=== PATIENT | female | born 1950 | race Two or more races ===

== ENCOUNTER 2016-04-20 18:47 | Observation (INO) | payer MEDICAID ==
[2016-04-20] MEDS ORDERED: ASPIRIN 81 MG TABLET, CHEWABLE PO ONE (18:48)
--- NOTE | 2016-04-20 18:51 | ER Document Report ---
ED Medical Screen (RME) - General Stated Complaint: CHEST PAIN Time seen by provider: 18:48 Mode of Arrival: Wheelchair Information source: Patient Notes: 65-year-old female oxygen dependent patient c/o of left-sided chest pain with left arm numbness today. She is in mild respiratory distress with tachypneic and a pulse ox of 88-92% because she Left her oxygen in the car. I have greeted and performed a rapid initial assessment of this patient. A comprehensive ED assessment, evaluation of the patient, analysis of test results , and completion of the medical decision making process will be conducted by additional ED providers. TRAVEL OUTSIDE OF THE [place] IN LAST 30 DAYS: No - Related Data Allergies/Adverse Reactions: codeine [Codeine] Allergy (Unknown, Verified 02/10/16 13:17) Past Medical History - Social History Family history: CAD, Hyperlipidemia, Hypertension, Malignancy - Past Medical History Cardiac Medical History: Reports: Hx Coronary Artery Disease, Hx Hypercholesterolemia, Hx Hypertension, Hx Peripheral Vascular Disease Denies: Hx Heart Murmur Pulmonary Medical History: Reports: Hx Asthma, Hx Bronchitis, Hx COPD, Hx Respiratory Failure, Hx Sleep Apnea Denies: Hx Tuberculosis Neurological Medical History: Reports: Hx Migraine. Denies: Hx Seizures Endocrine Medical History: Reports: Hx Diabetes Mellitus Type 1, Hx Diabetes Mellitus Type 2 Renal/ Medical History: Reports: Hx Ovarian Cysts Malignancy Medical History: GI Medical History: Reports: Hx Gastritis, Hx Ulcer Musculoskeltal Medical History: Reports Hx Arthritis, Reports Hx Fibromyalgia, Reports Hx Musculoskeletal Deformity, Reports Hx Musculoskeletal Trauma Psychiatric Medical History: Reports: Hx Anxiety, Hx Depression Denies: Hx Attention Deficit Hyperactivity Disorder Traumatic Medical History: Reports: Hx Fractures - pinkie finger Infectious Medical History: Reports: Hx C-Diff, Hx MRSA Past Surgical History: Reports: Hx Appendectomy, Hx Cardiac Catheterization, Hx Cholecystectomy, Hx Coronary Stent, Hx Hysterectomy, Hx Orthopedic Surgery - right shoulder, Hx Tubal Ligation, Hx Vascular Surgery - Immunizations Immunizations up to date: Yes Hx Diphtheria, Pertussis, Tetanus Vaccination: Yes
[2016-04-20] MEDS ORDERED: ALBUTEROL SULFATE 0.083% NEB 2.5 MG/3 ML AMPUL NEB ONE (19:01)
[2016-04-20] MEDS ORDERED: MORPHINE SULFATE 10 MG/ML INJ IV ONE ×2 (19:01→20:41)
--- NOTE | 2016-04-20 19:02 | ER Document Report ---
ED Cardiac - General Chief Complaint: Breathing Difficulty Stated Complaint: CHEST PAIN Time seen by provider: 19:02 Mode of Arrival: Wheelchair Information source: Patient TRAVEL OUTSIDE OF THE [place] IN LAST 30 DAYS: No - HPI Patient complains to provider of: Chest pain, Shortness of breath Was the onset of pain: Gradual Is the pain a: New problem Chest pain location: Substernal Quality of pain: Heaviness Chest pain radiation location: Left arm Severity now: Moderate Severity at worst: Moderate Pain level currently: 3 Chest pain precipitating factors: At Rest Cardiac risk factors: Diabetes, Hypertension, Dyslipidemia Positive cardiac history: Yes Associated symptoms: Shortness of breath Exacerbated by: Denies Relieved by: Nothing Similar symptoms previously: Yes Recently seen / treated by doctor: Yes Notes: Patient is a 65-year-old female who presents to the emergency room complaining of chest pain with shortness of breath this started yesterday evening but worsened throughout the day today, she reports it as a heaviness over the midsternum with a tingling sensation down the left arm, she reports a nonproductive cough, wheezing, denies a fever, no recent travel - Related Data Allergies/Adverse Reactions: codeine [Codeine] Allergy (Unknown, Verified 02/10/16 13:17) Past Medical History - General Information source: Patient - Social History Smoking Status: Former Smoker Family History: Hypertension, Other - Alzheimer's, renal failure Patient has suicidal ideation: No Patient has homicidal ideation: No - Past Medical History Cardiac Medical History: Reports: Hx Coronary Artery Disease, Hx Hypercholesterolemia, Hx Hypertension, Hx Peripheral Vascular Disease Denies: Hx Heart Murmur Pulmonary Medical History: Reports: Hx Asthma, Hx Bronchitis, Hx COPD, Hx Respiratory Failure, Hx Sleep Apnea Denies: Hx Tuberculosis Neurological Medical History: Reports: Hx Migraine. Denies: Hx Seizures Endocrine Medical History: Reports: Hx Diabetes Mellitus Type 1, Hx Diabetes Mellitus Type 2 Renal/ Medical History: Reports: Hx Ovarian Cysts Malignancy Medical History: GI Medical History: Reports: Hx Gastritis, Hx Ulcer Musculoskeltal Medical History: Reports Hx Arthritis, Reports Hx Fibromyalgia, Reports Hx Musculoskeletal Deformity, Reports Hx Musculoskeletal Trauma Psychiatric Medical History: Reports: Hx Anxiety, Hx Depression Denies: Hx Attention Deficit Hyperactivity Disorder Traumatic Medical History: Reports: Hx Fractures - pinkie finger Infectious Medical History: Reports: Hx C-Diff, Hx MRSA Past Surgical History: Reports: Hx Appendectomy, Hx Cardiac Catheterization, Hx Cholecystectomy, Hx Coronary Stent, Hx Hysterectomy, Hx Orthopedic Surgery - right shoulder, Hx Tubal Ligation, Hx Vascular Surgery - Immunizations Immunizations up to date: Yes Hx Diphtheria, Pertussis, Tetanus Vaccination: Yes Hx Pneumococcal Vaccination: 02/17/10 Review of Systems - Review of Systems Constitutional: No symptoms reported EENT: No symptoms reported Cardiovascular: See HPI Respiratory: See HPI Gastrointestinal: No symptoms reported Genitourinary: No symptoms reported Female Genitourinary: No symptoms reported Musculoskeletal: No symptoms reported Skin: No symptoms reported Hematologic/Lymphatic: No symptoms reported Neurological/Psychological: No symptoms reported -: Yes All other systems reviewed and negative Physical Exam - Vital signs Vitals: Pulse Ox 94 04/20/16 19:00 Interpretation: Normal - General General appearance: Appears well, Alert - HEENT Head: Normocephalic, Atraumatic Eyes: Normal Pupils: PERRL - Respiratory Respiratory status: No respiratory distress Chest status: Nontender Breath sounds: Wheezing Chest palpation: Normal - Cardiovascular Rhythm: Regular Heart sounds: Normal auscultation Murmur: No - Abdominal Inspection: Obese Distension: No distension Bowel sounds: Normal Tenderness: Nontender Organomegaly: No organomegaly - Back Back: Normal, Nontender - Extremities General upper extremity: Normal inspection, Nontender, Normal color, Normal ROM , Normal temperature General lower extremity: Normal inspection, Nontender, Normal color, Normal ROM , Normal temperature, Normal weight bearing. No: George's sign - Neurological Neuro grossly intact: Yes Cognition: Normal Orientation: AAOx4 Mark Coma Scale Eye Opening: Spontaneous Webb Coma Scale Verbal: Oriented Mark Coma Scale Motor: Obeys Commands Mark Coma Scale Total: 15 Speech: Normal Motor strength normal: LUE, RUE, LLE, RLE Sensory: Normal - Psychological Associated symptoms: Normal affect, Normal mood - Skin Skin Temperature: Warm Skin Moisture: Dry Skin Color: Normal Course - Re-evaluation Re-evalutation: 04/20/16 21:[address] Jackson who agrees to admit as observation for further evaluation and treatment - Vital Signs Vital signs: Temp Pulse Resp BP Pulse Ox 98.7 F 80 21 H 106/68 95 04/21/16 00:00 04/21/16 02:00 04/21/16 00:00 04/21/16 00:00 04/21/16 00:00 - Laboratory Result Diagrams: 04/20/16 19:10 04/20/16 19:10 Laboratory results interpreted by me: 04/20/16 04/20/16 04/20/16 19:10 19:10 21:00 Hgb 11.7 L RDW 15.0 H VBG pCO2 73.6 H* VBG HCO3 37.7 H Chloride 93 L Carbon Dioxide 33 H Glucose 191 H - Diagnostic Test Radiology reviewed: Image reviewed, Reports reviewed - EKG Interpretation by Me EKG shows normal: Sinus rhythm Rate: Normal [place]/QRS: RBBB When compared to previous EKG there are: No significant change - Transfer of Care Care transferred to following provider: Dr Jackson Discharge - Discharge Clinical Impression: Chest pain Qualifiers: Chest pain type: other chest pain Qualified Code(s): R07.89 - Other chest pain Condition: Stable Disposition: ADMITTED OBSERVATION Admitting Provider: Renetta Unit Admitted: Telemetry
[2016-04-20 19:24] LABS: ABSOLUTE EOSINOPHILS # (AUTO) 0.1 10^3/uL (0.0-0.6); ABSOLUTE LYMPHOCYTES (AUTO) 1.3 10^3/uL (0.5-4.7); ABSOLUTE MONOCYTES (AUTO) 0.5 10^3/uL (0.1-1.4); ABSOLUTE NEUT (AUTO) 4.2 10^3/uL (1.7-8.2); BASOPHILS % (AUTO) 0.3 % (0-2); EOSINOPHILS % (AUTO) 2.4 % (0-6); HEMOGLOBIN 11.7 g/dL (12.0-15.5); HGB HCT DIFFERENCE -0.9; LYMPHOCYTES % (AUTO) 21.2 % (13-45); MEAN CORPUSCULAR HEMOGLOBIN 29.9 pg (27.0-33.4); MEAN CORPUSCULAR HGB CONC 32.4 g/dL (32.0-36.0); MEAN CORPUSCULAR VOLUME 92 fl (80-97); MONOCYTES % (AUTO) 7.9 % (3-13); RED BLOOD COUNT 3.91 10^6/uL (3.72-5.28); SEGMENTED NEUTROPHILS % (AUTO) 68.2 % (42-78); WHITE BLOOD COUNT 6.2 10^3/uL (4.0-10.5)
[2016-04-20 19:37] LABS: ALANINE AMINOTRANSFERASE 25 U/L (9-52); ALBUMIN 4.1 g/dL (3.5-5.0); ALKALINE PHOSPHATASE 101 U/L (38-126); ANION GAP 13 (5-19); ASPARTATE AMINO TRANSFERASE 18 U/L (14-36); BILIRUBIN,TOTAL 0.5 mg/dL (0.2-1.3); BLOOD UREA NITROGEN 19 mg/dL (7-20); CALCIUM 9.3 mg/dL (8.4-10.2); CARBON DIOXIDE 33 mmol/L (22-30); CHLORIDE 93 mmol/L (98-107); CREATINE KINASE 61 U/L (30-135); CREATININE RESULT 0.82 mg/dL (0.52-1.25); GLUCOSE 191 mg/dL (75-110); POTASSIUM 4.5 mmol/L (3.6-5.0); TOTAL PROTEIN 7.4 g/dL (6.3-8.2)
--- NOTE | 2016-04-20 19:49 | EKG REPORT ---
SEVERITY:- ABNORMAL ECG - SINUS RHYTHM PROBABLE LEFT ATRIAL ABNORMALITY LEFT BUNDLE BRANCH BLOCK : Confirmed by: Kg Small MD 20-Apr-2016 19:49:00
[2016-04-20 19:53] LABS: TROPONIN I < 0.012 ng/mL
[2016-04-20 21:10] LABS: VENOUS BLOOD BASE EXCESS 9.4 mmol/L; VENOUS BLOOD HCO3 37.7 mmol/L (20-32); VENOUS BLOOD PH 7.33 (7.30-7.42)
[2016-04-20 21:23] LABS: VENOUS BLOOD PCO2 73.6 mmHg (35-63)
[2016-04-21 01:26] LABS: CREATINE KINASE MB 1.11 ng/mL (<4.55)
[2016-04-21 01:33] LABS: TROPONIN I < 0.012 ng/mL
[2016-04-21 08:12] LABS: CREATINE KINASE MB 0.92 ng/mL (<4.55)
[2016-04-21 08:13] LABS: TROPONIN I < 0.012 ng/mL
[2016-04-21] MEDS: TRAMADOL HCL 50 MG TABLET PO PRN ×2 (09:29→22:10)
[2016-04-21] MEDS ORDERED: INSULIN LISPRO 100 UNIT/ML 3 ML VIAL SUBCUT PRN (12:05)
[2016-04-21] MEDS ORDERED: DEXTROSE 40% GEL 15 GM TUBE X 2 PO PRN (12:05)
[2016-04-21] MEDS ORDERED: DEXTROSE 40% GEL 15 GM TUBE PO PRN (12:05)
[2016-04-21] MEDS ORDERED: GLUCAGON,HUMAN RECOMB 1 MG INJ IM PRN (12:05)
[2016-04-21] MEDS ORDERED: DEXTROSE 50%-WATER SYRINGE 25 GM/50 ML DOSE IV PRN (12:05)
[2016-04-21] MEDS ORDERED: DEXTROSE 50%-WATER SYRINGE 12.5 GM/25 ML DOSE IV PRN (12:05)
[2016-04-21] MEDS ORDERED: REGADENOSON INJ 0.4 MG/5 ML DISP.SYRIN IV ONE (14:19)
[2016-04-21 14:28] LABS: CREATINE KINASE MB 0.98 ng/mL (<4.55)
[2016-04-21 14:30] LABS: TROPONIN I < 0.012 ng/mL
[2016-04-21] MEDS ORDERED: TRAMADOL HCL 50 MG TABLET PO PRN (14:40)
--- NOTE | 2016-04-21 15:21 | PDOC H&P ---
History of Present Illness Admission Date/PCP: 04/21/16 00:32 TANISHA POLLARD MD History of Present Illness: TORREY MARKS is a 65 year old female, she has a history of coronary artery disease, status post insertion of coronary stent, history of peripheral vascular disease, she came to the emergency room because of chest pain, the chest pain is not typical chest pain ,the chest pain is reproducible on palpation of the chest. Wall. The chest pain does not radiate to the neck on the left upper extremities. Past Medical History Cardiac Medical History: Reports: Coronary Artery Disease, Hyperlipidema, Hypertension, Peripheral Vascular Disease Pulmonary Medical History: Reports: Asthma, Bronchitis, Chronic Obstructive Pulmonary Disease (COPD), Respiratory Failure, Sleep Apnea Neurological Medical History: Reports: Migraine Endocrine Medical History: Reports: Diabetes Mellitus Type 2 Renal/ Medical History: Malignancy Medical History: GI Medical History: Musculoskeltal Medical History: Reports: Arthritis, Fibromyalgia Psychiatric Medical History: Reports: Depression Denies: Attention Deficit Hyperactivity Disorder Infectious Medical History: Reports: Clostridium Difficile, Methicillin- Resistant Staph Aureus Past Surgical History Past Surgical History: Reports: Amputation, Appendectomy, Cardiac Catheterization, Cholecystectomy, Coronary Stent, Hysterectomy, Orthopedic Surgery - right shoulder, Tubal Ligation, Vascular Surgery Social History Smoking Status: Former Smoker Frequency of Alcohol Use: None Hx Recreational Drug Use: No Drugs: None Hx Prescription Drug Abuse: No Family History Family History: Hypertension, Other - Alzheimer's, renal failure Parental Family History Reviewed: Yes Children Family History Reviewed: Yes Sibling(s) Family History Reviewed.: Yes Medication/Allergy Home Medications: Aspirin [Aspirin 81 mg Chewable Tablet] 81 mg PO DAILY 04/21/16 Atorvastatin Calcium 40 mg PO QHS 04/21/16 Clopidogrel Bisulfate [Clopidogrel] 75 mg PO DAILY 04/21/16 Duloxetine HCl 60 mg PO DAILY 04/21/16 Insulin Detemir [Levemir Insulin 300 Units/3 ml Insuln.pen] 15 unit SUBCUT QAM 04/21/16 Magnesium Oxide [Magnesium] 400 mg PO DAILY 04/21/16 Melatonin/Pyridoxine [Melatonin 3 Mg Tablet] 2 each PO HSP PRN 04/21/16 Metformin HCl [Metformin HCl ER] 500 mg PO WSUPPER 04/21/16 Metoprolol Tartrate [Lopressor 25 mg Tablet] 25 mg PO Q12 04/21/16 Omeprazole 40 mg PO QAM 04/21/16 Pramipexole Di-HCl [Pramipexole Dihydrochloride] 0.125 mg PO TID 04/21/16 Sacubitril/Valsartan [Entresto 24 mg-26 mg Tablet] 1 each PO BID 04/21/16 Spironolactone 25 mg PO DAILY 04/21/16 Allergies/Adverse Reactions: codeine [Codeine] Allergy (Unknown, Verified 02/10/16 13:17) Review of Systems Constitutional: ABSENT: chills, fever(s), headache(s), weight gain, weight loss Eyes: ABSENT: visual disturbances Ears: ABSENT: hearing changes Cardiovascular: PRESENT: chest pain Respiratory: ABSENT: cough, hemoptysis Gastrointestinal: PRESENT: diarrhea Genitourinary: ABSENT: dysuria, hematuria Musculoskeletal: ABSENT: joint swelling Integumentary: ABSENT: rash, wounds Neurological: ABSENT: abnormal gait, abnormal speech, confusion, dizziness, focal weakness, syncope Psychiatric: ABSENT: anxiety, depression, homidical ideation, suicidal ideation Endocrine: ABSENT: cold intolerance, heat intolerance, menstrual abnormalities, polydipsia, polyuria Hematologic/Lymphatic: ABSENT: easy bleeding, easy bruising, lymphadenopathy Physical Exam Vital Signs: Temp Pulse Resp BP Pulse Ox 98.9 F 96 16 114/57 L 94 04/21/16 11:07 04/21/16 14:00 04/21/16 11:07 04/21/16 11:07 04/21/16 11:07 Intake & Output 04/20/16 04/21/16 04/22/16 06:59 06:59 06:59 Intake Total 600 750 Balance 600 750 Weight 114.8 kg General appearance: PRESENT: no acute distress, well-developed, well-nourished Head exam: PRESENT: atraumatic, normocephalic Eye exam: PRESENT: conjunctiva pink, EOMI, PERRLA Ear exam: PRESENT: normal external ear exam Mouth exam: PRESENT: moist, tongue midline Neck exam: PRESENT: full ROM Respiratory exam: PRESENT: chest wall tenderness, clear to auscultation rolf Cardiovascular exam: PRESENT: RRR, +S1, +S2 Pulses: PRESENT: normal dorsalis pedis pul, +2 pedal pulses bilateral Vascular exam: PRESENT: normal capillary refill GI/Abdominal exam: PRESENT: normal bowel sounds, soft Rectal exam: PRESENT: deferred Neurological exam: PRESENT: alert, awake, oriented to person, oriented to place , oriented to time, oriented to situation, CN II-XII grossly intact Psychiatric exam: PRESENT: appropriate affect, normal mood Skin exam: PRESENT: dry, intact, warm Results Laboratory Results: 04/21/16 04/21/16 04/21/16 00:46 00:46 07:07 Creatine Kinase 58 48 CK-MB (CK-2) 1.11 Troponin I < 0.012 04/21/16 04/21/16 04/21/16 07:07 13:07 13:07 Creatine Kinase 52 CK-MB (CK-2) 0.92 0.98 Troponin I < 0.012 < 0.012 Impressions: Chest X-Ray 04/20/16 18:48 IMPRESSION: NO ACUTE RADIOGRAPHIC FINDING IN THE CHEST. Assessment & Plan - Diagnosis (1) Chest pain Qualifiers: Chest pain type: unspecified Qualified Code(s): R07.9 - Chest pain, unspecified Is this a current diagnosis for this admission?: Yes (2) Chronic obstructive asthma (with obstructive pulmonary disease) Is this a current diagnosis for this admission?: Yes (3) Coronary artery disease Qualifiers: Coronary Disease-Associated Artery/Lesion type: [place] artery [place] vs. transplanted heart: [place] heart Associated angina: without angina Qualified Code(s): I25.10 - Atherosclerotic heart disease of [place] coronary artery without angina pectoris (4) COPD (chronic obstructive pulmonary disease) Qualifiers: COPD type: COPD with acute exacerbation Qualified Code(s): J44.1 - Chronic obstructive pulmonary disease with (acute) exacerbation Is this a current diagnosis for this admission?: Yes (5) Chest wall pain Is this a current diagnosis for this admission?: Yes (6) Chronic respiratory failure Qualifiers: Respiratory failure complication: unspecified whether with hypoxia or hypercapnia Qualified Code(s): J96.10 - Chronic respiratory failure, unspecified whether with hypoxia or hypercapnia (7) Coronary artery disease Qualifiers: Coronary Disease-Associated Artery/Lesion type: [place] artery [place] vs. transplanted heart: [place] heart Associated angina: without angina Qualified Code(s): I25.10 - Atherosclerotic heart disease of [place] coronary artery without angina pectoris Is this a current diagnosis for this admission?: Yes
[2016-04-21] MEDS: ONDANSETRON HCL INJ/PF 4 MG/2 ML SDV IV PRN ×2 (16:28→22:10)
[2016-04-21] MEDS ORDERED: PYRIDOXINE PO PRN (18:26)
[2016-04-21] MEDS ORDERED: MELATONIN PO PRN (18:26)
[2016-04-21] MEDS: METOPROLOL TARTRATE 25 MG TABLET PO SCH (22:10)
[2016-04-21] MEDS ORDERED: INSULIN DETEMIR 100 UNIT/ML 3 ML PEN SUBCUT ONE (22:10)
[2016-04-21] MEDS: INSULIN DETEMIR 100 UNIT/ML 3 ML PEN SUBCUT SCH (22:11)
[2016-04-21] MEDS: SIMETHICONE 80 MG TAB.CHEW PO SCH (22:12)
[2016-04-22] MEDS: ONDANSETRON HCL INJ/PF 4 MG/2 ML SDV IV PRN ×4 (03:23→19:39)
[2016-04-22] MEDS: TRAMADOL HCL 50 MG TABLET PO PRN ×4 (04:16→22:06)
[2016-04-22] MEDS: DULOXETINE HCL 30 MG CAPSULE.DR PO SCH (09:24)
[2016-04-22] MEDS: METFORMIN HCL 500 MG TABLET PO SCH (09:25)
[2016-04-22] MEDS: CLOPIDOGREL BISULFATE 75 MG TABLET PO SCH (09:25)
[2016-04-22] MEDS: MAGNESIUM OXIDE 400 MG TABLET PO SCH (09:25)
[2016-04-22] MEDS: LANSOPRAZOLE 30 MG TAB.RAP.DR PO SCH (09:25)
[2016-04-22] MEDS: SIMETHICONE 80 MG TAB.CHEW PO SCH ×4 (09:26→22:05)
[2016-04-22] MEDS: METOPROLOL TARTRATE 25 MG TABLET PO SCH ×2 (09:26→22:05)
[2016-04-22] MEDS: ASPIRIN 81 MG TABLET, CHEWABLE PO SCH (09:26)
[2016-04-22] MEDS: SPIRONOLACTONE 25 MG TABLET PO SCH (09:27)
[2016-04-22] MEDS ORDERED: SACUBITRIL PO SCH (10:00)
[2016-04-22] MEDS ORDERED: VALSARTAN PO SCH (10:00)
[2016-04-22] MEDS ORDERED: ATORVASTATIN CALCIUM 40 MG TABLET PO SCH (10:00)
[2016-04-22] MEDS: SACUBITRIL/VALSARTAN 24 MG/26 MG TABLET PO SCH ×2 (11:00→22:06)
[2016-04-22] MEDS: PRAMIPEXOLE DI-HCL 0.25 MG TABLET PO SCH ×3 (12:06→17:22)
--- NOTE | 2016-04-22 19:57 | PDOC DISCHARGE SUMMARY ---
General - Admit/Disc Date/PCP Admission Date/Primary Care Provider: 04/21/16 00:32 TANISHA POLLARD MD Discharge Date: 04/22/16 - Discharge Diagnosis (1) Chest pain Is this a current diagnosis for this admission?: Yes (2) Chronic obstructive asthma (with obstructive pulmonary disease) Is this a current diagnosis for this admission?: Yes (4) COPD (chronic obstructive pulmonary disease) Is this a current diagnosis for this admission?: Yes (5) Chest wall pain Is this a current diagnosis for this admission?: Yes (7) Coronary artery disease Is this a current diagnosis for this admission?: Yes - Additional Information Discharge Diet: Diabetic Discharge Activity: Activity As Tolerated Home Medications: Aspirin [Aspirin 81 mg Chewable Tablet] 81 mg PO DAILY 04/21/16 Atorvastatin Calcium 40 mg PO QHS 04/21/16 Clopidogrel Bisulfate [Clopidogrel] 75 mg PO DAILY 04/21/16 Duloxetine HCl 60 mg PO DAILY 04/21/16 Insulin Detemir [Levemir Insulin 300 Units/3 ml Insuln.pen] 15 unit SUBCUT QAM 04/21/16 Magnesium Oxide [Magnesium] 400 mg PO DAILY 04/21/16 Melatonin/Pyridoxine [Melatonin 3 Mg Tablet] 2 each PO HSP PRN 04/21/16 Metformin HCl [Metformin HCl ER] 500 mg PO WSUPPER 04/21/16 Metoprolol Tartrate [Lopressor 25 mg Tablet] 25 mg PO Q12 04/21/16 Omeprazole 40 mg PO QAM 04/21/16 Pramipexole Di-HCl [Pramipexole Dihydrochloride] 0.125 mg PO TID 04/21/16 Sacubitril/Valsartan [Entresto 24 mg-26 mg Tablet] 1 each PO BID 04/21/16 Spironolactone 25 mg PO DAILY 04/21/16 History of Present Illness History of Present Illness: TORREY MARKS is a 65 year old female, she has a history of coronary artery disease, status post insertion of coronary stent, history of peripheral vascular disease, she came to the emergency room because of chest pain, the chest pain is not typical chest pain ,the chest pain is reproducible on palpation of the chest. Wall. The chest pain does not radiate to the neck on the left upper extremities. Hospital Course Hospital Course: Patient was admitted because of chest pain, the chest pain is reproducible on palpation, she had a Cardiolite stress test done today and it was negative for any acute reversibility, Dr. Gaxiola, cardiology interpreted the nuclear stress test and patient is to follow-up with him in the office outpatient. Physical Exam Vital Signs: Temp Pulse Resp BP Pulse Ox 98.3 F 71 20 122/61 97 04/22/16 16:00 04/22/16 16:00 04/22/16 16:00 04/22/16 16:00 04/22/16 16:00 Intake & Output 04/21/16 04/22/16 04/23/16 06:59 06:59 06:59 Intake Total 600 1000 400 Output Total 400 Balance 600 1000 0 Weight 114.8 kg General appearance: PRESENT: no acute distress Eye exam: PRESENT: PERRLA Respiratory exam: PRESENT: clear to auscultation rolf Cardiovascular exam: PRESENT: +S1, +S2 GI/Abdominal exam: PRESENT: soft Neurological exam: PRESENT: alert Results Laboratory Results: 04/21/16 04/21/16 04/21/16 00:46 00:46 07:07 Creatine Kinase 58 48 CK-MB (CK-2) 1.11 Troponin I < 0.012 04/21/16 04/21/16 04/21/16 07:07 13:07 13:07 Creatine Kinase 52 CK-MB (CK-2) 0.92 0.98 Troponin I < 0.012 < 0.012 Impressions: Chest X-Ray 04/20/16 18:48 IMPRESSION: NO ACUTE RADIOGRAPHIC FINDING IN THE CHEST.
[2016-04-22] MEDS: INSULIN DETEMIR 100 UNIT/ML 3 ML PEN SUBCUT SCH (22:05)
[2016-04-23] MEDS: ONDANSETRON HCL INJ/PF 4 MG/2 ML SDV IV PRN ×2 (04:13→10:27)
[2016-04-23] MEDS: TRAMADOL HCL 50 MG TABLET PO PRN ×2 (04:13→10:27)
[2016-04-23] MEDS: PRAMIPEXOLE DI-HCL 0.25 MG TABLET PO SCH (09:43)
[2016-04-23] MEDS: DULOXETINE HCL 30 MG CAPSULE.DR PO SCH (09:44)
[2016-04-23] MEDS: CLOPIDOGREL BISULFATE 75 MG TABLET PO SCH (09:45)
[2016-04-23] MEDS: ASPIRIN 81 MG TABLET, CHEWABLE PO SCH (09:46)
[2016-04-23] MEDS: LANSOPRAZOLE 30 MG TAB.RAP.DR PO SCH (09:46)
[2016-04-23] MEDS: SACUBITRIL/VALSARTAN 24 MG/26 MG TABLET PO SCH (09:46)
[2016-04-23] MEDS: MAGNESIUM OXIDE 400 MG TABLET PO SCH (09:46)
[2016-04-23] MEDS: METFORMIN HCL 500 MG TABLET PO SCH (09:47)
[2016-04-23] MEDS: SIMETHICONE 80 MG TAB.CHEW PO SCH (09:47)
[2016-04-23] MEDS: SPIRONOLACTONE 25 MG TABLET PO SCH (09:48)
[2016-04-23] MEDS: METOPROLOL TARTRATE 25 MG TABLET PO SCH (09:50)
[2016-04-23 12:24] VITALS: BP 122/61
--- NOTE | 2016-04-23 20:02 | DRAGON STRESS TEST REPORT ---
Intravenous Lexiscan Cardiolite stress test using single photon emmision computerized tomography. Date of procedure: 04/22/2016 hypertension, Ordering Provider: Dr. Jackson. Indication: Chest pain in a patient with coronary artery disease and history of coronary stent in unknown artery in 2013 . Coronary risk factors: Age, diabetes mellitus type II [id number],[ Without complications], and dyslipidemia Resting EKG: Sinus Rhythm. Left bundle branch block pattern. The patient had transient chest pressure and shortness of breath which, which subsided with drinking Pepsi. Stress EKG: No changes of ischemia. Reason for termination: Protocol. Conclusions: Normal EKG and hemodynamic response to IV Lexiscan. Nuclear data: At rest the patient was given 9.35 millicuries of technetium 99m sestamibi injected intravenously. As per protocol rest non gated SPECT images were obtained. Subsequently the patient was given intravenous Lexiscan at a dose of 0.4 mg in 5 mL intravenously, followed by flush with normal saline. Subsequently the stress dose of 32.6 millicuries of technetium 99m sestamibi was injected intravenously. As per protocol stress gated images were obtained. Nuclear interpretation: Review of images showed that there is breast attenuation artifact, and bowel contamination artifact this is a poor quality study. Note there is a fixed defect in the anteroapical and mid apical wall in both the rest and stress images with decreased motion contraction and thickening by gated study is a perfusion defect involving the interventional septum in the rest images and normal perfusion in the stress images. This a mild that there is a moderate perfusion defect of a small area involving the left ankle apex in the stress images and which with this became very a mild perfusion defect in a small area of the left ventricular apex in the rest images. This small area has decreased motion contraction and thickening? Causing was of normal perfusion at rest and normal perfusion post stress with IV Lexiscan. 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 The left ventricle is dilated.. T. I D. ratio was normal at 1.05. Computer read rest, and stress left ventricular ejection fraction were 19 %, and 18 %, respectively. Visually both the stress and rest ejection fractions were normal, and greater than 55%. Conclusion: 1. There is mild scintigraphic evidence of Lexiscan induced myocardial ischemia. The setting of mild scar involving the small area of the left front apex.. 2. There is scintigraphic evidence of myocardial infarction/scar involving the apical anterior and the mid anterior news[place]. 3. The left ventricular cavity is dilated with severe global hypokinesis and other areas with severely reduced LV ejection fraction. Recommendations: 1.Aggressive medical treatment of coronary artery disease and cardiomyopathy. 2.would recommend checking his the patient on echocardiograM in the recent past in which case patient may be a candidate for AICD. If none recently then would recommend repeat an echocardiogram in 3 months to assess LV ejection fraction. If this is 35% or less then would recommend to EP automation qa analyst for AICD. 3.if the patient continues to have chest pain would recommend cardia catheterization prior to replacing an AICD. . 4.Aggressive risk factor modification, and treating the underlying co- morbidities. Discussed with Dr. Jackson. The patient desires to follow up with me in the office. Will get an appointment to see me. ALEMD
== END 2016-04-23 13:00 | disposition home or self-care (01) ==
LOC: ER 18:47 → UNDOADMOB 21:31 → EH 21:31 → 4S 04-21 00:11 → EH 04-21 00:32
PROVIDERS: ADMIT Internal Medicine; ATTEND Internal Medicine
PROC: 3E033GC Introduction of Other Therapeutic Substance into Peripheral Vein, Percutaneous Approach (ICD-10-PCS; principal; 2016-04-20)
PROC: 3E033GC Introduction of Other Therapeutic Substance into Peripheral Vein, Percutaneous Approach (ICD-10-PCS; 2016-04-20)
DX: R07.89 Other chest pain (principal); J96.10 Chronic respiratory failure, unspecified whether with hypoxia or hypercapnia; J45.909 Unspecified asthma, uncomplicated; J44.9 Chronic obstructive pulmonary disease, unspecified; I25.10 Atherosclerotic heart disease of native coronary artery without angina pectoris; I10 Essential (primary) hypertension; I73.9 Peripheral vascular disease, unspecified
CPT/HCPCS: 93005; 96376; 94640; 99285; 96374; 36415 ×2; 82553 ×2; 82962 ×3; 82550 ×2; 85025; 80053; 84484 ×2; 82803; 93017; 71010; 78452; 93010; G0378 ×3; A9500; J2785; J1815 ×2; J3490 ×18; J2270; J2405 ×3; Q9969

== ENCOUNTER 2016-05-17 18:25 | Inpatient (IN) | payer MEDICAID ==
[2016-05-17] MEDS ORDERED: ASPIRIN 81 MG TABLET, CHEWABLE PO ONE (19:11)
[2016-05-17] MEDS ORDERED: MIDAZOLAM 2 MG/2 ML INJ IV ONE (19:11)
[2016-05-17] MEDS ORDERED: IPRATROPIUM/ALBUTEROL 0.5-2.5 MG/3 ML AMPUL NEB ONE (19:14)
--- NOTE | 2016-05-17 19:16 | ER Document Report ---
ED General - General Chief Complaint: Chest Pain Stated Complaint: CHEST PAIN,BREATHING DIFFICULTY Notes: Patient is a 65-year-old female past medical history of morbid obesity, recurrent chest pain, COPD with chronic oxygen dependence, diabetes, hypertension, prior coronary artery disease with a stent placed in 2014 who presents with chest pain and shortness of breath. Symptoms started this morning and have gotten progressively worse since onset. Describes the pain as being located over her left chest, constant, sharp in nature. Nothing improves or worsens her pain. States she's had very similar episodes in the past. She had a stress test performed on the fifth of this month which was noted to be generally normal although did have some inducible dyskinesia. She denies any associated nausea or vomiting with today's episode. No history of DVT or pulmonary embolus. Patient does admit to being severely anxious at time of arrival. TRAVEL OUTSIDE OF THE [place] IN LAST 30 DAYS: No - Related Data Allergies/Adverse Reactions: codeine [Codeine] Adverse Reaction (Unknown, Verified 05/17/16 20:17) Past Medical History - General Information source: Patient - Social History Smoking Status: Former Smoker Frequency of alcohol use: None Drug Abuse: None Lives with: Family Family History: Hypertension, Other - Alzheimer's, renal failure - Past Medical History Cardiac Medical History: Reports: Hx Coronary Artery Disease, Hx Hypercholesterolemia, Hx Hypertension, Hx Peripheral Vascular Disease Denies: Hx Heart Murmur Pulmonary Medical History: Reports: Hx Asthma, Hx Bronchitis, Hx COPD, Hx Respiratory Failure, Hx Sleep Apnea Denies: Hx Tuberculosis Neurological Medical History: Reports: Hx Migraine. Denies: Hx Seizures Endocrine Medical History: Reports: Hx Diabetes Mellitus Type 1, Hx Diabetes Mellitus Type 2 Renal/ Medical History: Reports: Hx Ovarian Cysts Malignancy Medical History: GI Medical History: Reports: Hx Gastritis, Hx Ulcer Musculoskeltal Medical History: Reports Hx Arthritis, Reports Hx Fibromyalgia, Reports Hx Musculoskeletal Deformity, Reports Hx Musculoskeletal Trauma Psychiatric Medical History: Reports: Hx Anxiety, Hx Depression Denies: Hx Attention Deficit Hyperactivity Disorder Traumatic Medical History: Reports: Hx Fractures - pinkie finger Infectious Medical History: Reports: Hx C-Diff, Hx MRSA Past Surgical History: Reports: Hx Appendectomy, Hx Cardiac Catheterization, Hx Cholecystectomy, Hx Coronary Stent, Hx Hysterectomy, Hx Orthopedic Surgery - right shoulder, Hx Tubal Ligation, Hx Vascular Surgery - Immunizations Immunizations up to date: Yes Hx Diphtheria, Pertussis, Tetanus Vaccination: Yes Hx Pneumococcal Vaccination: 02/17/10 Review of Systems - Review of Systems Notes: Constitutional: Negative for fever. HENT: Negative for sore throat. Eyes: Negative for visual changes. Cardiovascular: Positive for chest pain. Respiratory: Positive for shortness of breath. Gastrointestinal: Negative for abdominal pain, vomiting or diarrhea. Genitourinary: Negative for dysuria. Musculoskeletal: Negative for back pain. Skin: Negative for rash. Neurological: Negative for headaches, weakness or numbness. 10 point ROS negative except as marked above and in HPI. Physical Exam - Vital signs Vitals: Temp Pulse Resp BP Pulse Ox 98.5 F 121 H 34 H 134/98 H 95 05/17/16 18:45 05/17/16 18:45 05/17/16 18:45 05/17/16 18:45 05/17/16 18:45 Interpretation: Tachycardic, Tachypneic Notes: PHYSICAL EXAMINATION: GENERAL: Somewhat disheveled, malodorous but in no acute distress. Does appear highly anxious HEAD: Atraumatic, normocephalic. EYES: Pupils equal round and reactive to light, extraocular movements intact, sclera anicteric, conjunctiva are normal. ENT: nares patent, oropharynx clear without exudates. Moderately dry mucous membranes. NECK: Normal range of motion, supple without lymphadenopathy LUNGS: Mildly diminished breath sounds bilaterally with faint expiratory wheezing in all lung ashley. HEART: Regular tachycardia without murmurs ABDOMEN: Soft, nontender, normoactive bowel sounds. No guarding, no rebound. No masses appreciated. EXTREMITIES: Normal range of motion, no pitting or edema. No cyanosis. NEUROLOGICAL: No focal neurological deficits. Moves all extremities spontaneously and on command. PSYCH: Anxious, tearful and tremulous SKIN: Warm, Dry, normal turgor, no rashes or lesions noted. Course - Re-evaluation Re-evalutation: 05/17/16 19:14 Patient presents with chest pain shortness of breath very similar to her multiple prior presentations of chest pain. She had a stress test done on the fifth of this month which did demonstrate inducible dyskinesis but no evidence of critical lesions. EKG shows a left bundle branch block pattern unchanged from prior, negative for scarbosa criteria. Patient's initial vitals show tachypnea which is easily redirected when patient is calm down and has to breathe in and out in a slow and calm manner. She is not an actual distress and I suspect that some of this tachypnea secondary to anxiety. She has immediately been placed on a croze cutter, aspirin has been administered. She does have mild wheezing on exam and nebulizers will be started. Will obtain laboratories including troponin and a chest x-ray and reassess. 05/17/16 21:14 Troponin does return indeterminate range at 0.075. Patient's chest pain has mostly resolved at this point receiving morphine. Chest x-ray is clear. The remainder of her labs are unremarkable. I discussed this case with her primary care physician Dr. Pollard will admit for observation. - Vital Signs Vital signs: Temp Pulse Resp BP Pulse Ox 98.5 F 121 H 14 119/86 H 91 L 05/17/16 18:45 05/17/16 18:45 05/17/16 20:11 05/17/16 20:11 05/17/16 20:11 - Laboratory Result Diagrams: 05/17/16 19:16 05/17/16 19:16 Laboratory results interpreted by me: 05/17/16 05/17/16 05/17/16 19:16 19:16 19:16 RDW 14.2 H VBG pH 7.43 H Sodium 145.1 H Glucose 310 H - Diagnostic Test Radiology reviewed: Image reviewed, Reports reviewed Radiology results interpreted by me: 05/17/16 21:14 Chest x-ray: No acute infiltrate or pneumothorax - EKG Interpretation by Me Additional EKG results interpreted by me: 05/17/16 21:14 Left bundle branch block. Sinus tachycardia rate 116. No Scarbosa criteria present. Discharge - Discharge Clinical Impression: Chest pain Admitting Provider: Renetta Unit Admitted: Telemetry Referrals: TANISHA POLLARD MD [Primary Care Provider] - Follow up as needed
[2016-05-17] MEDS ORDERED: ONDANSETRON HCL INJ/PF 4 MG/2 ML SDV IV ONE (19:30)
[2016-05-17 19:32] LABS: VENOUS BLOOD BASE EXCESS 3.9 mmol/L; VENOUS BLOOD HCO3 28.8 mmol/L (20-32); VENOUS BLOOD PCO2 44.4 mmHg (35-63); VENOUS BLOOD PH 7.43 (7.30-7.42)
[2016-05-17 19:33] LABS: ABSOLUTE EOSINOPHILS # (AUTO) 0.1 10^3/uL (0.0-0.6); ABSOLUTE MONOCYTES (AUTO) 0.6 10^3/uL (0.1-1.4); ABSOLUTE NEUT (AUTO) 5.2 10^3/uL (1.7-8.2); BASOPHILS % (AUTO) 0.5 % (0-2); EOSINOPHILS % (AUTO) 0.9 % (0-6); HEMATOCRIT 38.7 % (36.0-47.0); HEMOGLOBIN 12.7 g/dL (12.0-15.5); HGB HCT DIFFERENCE -0.6; LYMPHOCYTES % (AUTO) 14.8 % (13-45); MEAN CORPUSCULAR HGB CONC 32.9 g/dL (32.0-36.0); MEAN CORPUSCULAR VOLUME 91 fl (80-97); MONOCYTES % (AUTO) 8.2 % (3-13); RED BLOOD COUNT 4.24 10^6/uL (3.72-5.28); RED CELL DISTRIBUTION WIDTH 14.2 % (11.5-14.0); SEGMENTED NEUTROPHILS % (AUTO) 75.6 % (42-78); WHITE BLOOD COUNT 6.9 10^3/uL (4.0-10.5)
[2016-05-17 19:46] LABS: ALANINE AMINOTRANSFERASE 15 U/L (9-52); ALBUMIN 4.4 g/dL (3.5-5.0); ALKALINE PHOSPHATASE 112 U/L (38-126); ANION GAP 17 (5-19); ASPARTATE AMINO TRANSFERASE 32 U/L (14-36); BILIRUBIN,DIRECT 0.4 mg/dL (0.0-0.4); BILIRUBIN,TOTAL 0.6 mg/dL (0.2-1.3); BLOOD UREA NITROGEN 14 mg/dL (7-20); CALCIUM 9.8 mg/dL (8.4-10.2); CARBON DIOXIDE 30 mmol/L (22-30); CHLORIDE 98 mmol/L (98-107); CREATININE RESULT 0.81 mg/dL (0.52-1.25); GLUCOSE 310 mg/dL (75-110); POTASSIUM 3.7 mmol/L (3.6-5.0); SODIUM 145.1 mmol/L (137-145)
[2016-05-17] MEDS: MORPHINE SULFATE 10 MG/ML INJ IV PRN ×2 (19:47→21:52)
[2016-05-17] MEDS ORDERED: NITROGLYCERIN 0.4 MG/TAB 25 TAB/BOTTLE SL PRN (21:09)
--- NOTE | 2016-05-17 22:01 | EKG REPORT ---
SEVERITY:- ABNORMAL ECG - SINUS TACHYCARDIA PROBABLE LEFT ATRIAL ABNORMALITY LEFT BUNDLE BRANCH BLOCK : Confirmed by: Yoko Martinez 17-May-2016 22:00:52
[2016-05-18] MEDS ORDERED: ACETAMINOPHEN 325 MG TABLET PO PRN (01:23)
[2016-05-18] MEDS ORDERED: ALPRAZOLAM 0.25 MG TABLET PO ONE (01:30)
[2016-05-18] MEDS ORDERED: ONDANSETRON HCL INJ/PF 4 MG/2 ML SDV ONE (01:40)
[2016-05-18] MEDS ORDERED: ACETAMINOPHEN 325 MG TABLET ONE (01:41)
[2016-05-18] MEDS: ONDANSETRON HCL INJ/PF 4 MG/2 ML SDV IV PRN ×3 (02:17→21:28)
[2016-05-18 03:40] LABS: CREATINE KINASE MB 0.97 ng/mL (<4.55); TROPONIN I 0.072 ng/mL
[2016-05-18 11:31] LABS: CREATINE KINASE MB 1.21 ng/mL (<4.55); TROPONIN I 0.054 ng/mL
[2016-05-18] MEDS ORDERED: HYDROMORPHONE HCL 2 MG TABLET PO ONE ×2 (13:39→15:00)
--- NOTE | 2016-05-18 13:39 | PDOC H&P ---
History of Present Illness Admission Date/PCP: 05/18/16 02:43 TANISHA POLLARD MD History of Present Illness: TORREY MARKS is a 65 year old female, she was recently admitted in this hospital on 04/21/2016 when she had chest pain at that time she also had a Cardiolite Lexiscan stress test on it was negative for any acute reversibility. She was discharged from the hospital on 04/22/2016 she came to the emergency room because of chest pain, it is to be noted that the chest pain she has now is the same chest pain she had when she was admitted on 04/21/2016, she said the chest pain never resolved. She has a chest wall pain, the chest pain is reproducible on palpation of the chest wall, on the last admission she was supposed to see Dr. Gaxiola outpatient for further evaluation of her coronary artery disease. She also had a left bundle branch block, she was brought in for observation status of enzymes were negative for acute NC. She could be discharged home on she would need to follow with Dr. Gaxiola outpatient for further evaluation of the chest pain she is experiencing. The chest pain is atypical in character he does not seems to be ischemic chest pain , the chest pain is not provoked by activity is a constant intense pain aggravated with palpation of the chest wall. Past Medical History Cardiac Medical History: Reports: Coronary Artery Disease, Hyperlipidema, Hypertension, Peripheral Vascular Disease Pulmonary Medical History: Reports: Asthma, Bronchitis, Chronic Obstructive Pulmonary Disease (COPD), Respiratory Failure, Sleep Apnea Neurological Medical History: Reports: Migraine Endocrine Medical History: Reports: Diabetes Mellitus Type 2 Renal/ Medical History: Malignancy Medical History: GI Medical History: Musculoskeltal Medical History: Reports: Arthritis, Fibromyalgia Psychiatric Medical History: Reports: Depression Denies: Attention Deficit Hyperactivity Disorder Infectious Medical History: Reports: Clostridium Difficile, Methicillin- Resistant Staph Aureus Past Surgical History Past Surgical History: Reports: Amputation, Appendectomy, Cardiac Catheterization, Cholecystectomy, Coronary Stent, Hysterectomy, Orthopedic Surgery - right shoulder, Tubal Ligation, Vascular Surgery Social History Lives with: Family Smoking Status: Former Smoker Cigarettes Packs Per Day: 1 Number of Years Smokin Last Time Smoked: 02/17/2013 Frequency of Alcohol Use: None Hx Recreational Drug Use: No Drugs: None Hx Prescription Drug Abuse: No - Advance Directive Resuscitation Status: Full Code Family History Family History: Hypertension, Other - Alzheimer's, renal failure Parental Family History Reviewed: Yes Children Family History Reviewed: Yes Sibling(s) Family History Reviewed.: Yes Medication/Allergy Home Medications: Aspirin [Ecotrin 81 mg EC Tablet] 81 mg PO DAILY 05/18/16 Atorvastatin Calcium [Lipitor 40 mg Tablet] 40 mg PO QHS 05/18/16 Clopidogrel Bisulfate [Plavix 75 mg Tablet] 75 mg PO DAILY 05/18/16 Duloxetine HCl [Cymbalta] 60 mg PO DAILY 05/18/16 Gabapentin [Neurontin] 600 mg PO Q8 05/18/16 Insulin Detemir [Levemir Flextouch] 15 units SQ QAM 05/18/16 Lisinopril [Prinivil 2.5 mg Tablet] 2.5 mg PO DAILY 05/18/16 Magnesium Oxide [Mag-Ox 400 mg Tablet] 400 mg PO DAILY 05/18/16 Melatonin 6 mg PO QHS 05/18/16 Metformin HCl [Metformin HCl ER] 500 mg PO WSUPPER 05/18/16 Metoprolol Succinate [Toprol Xl 50 mg Tab.sr] 50 mg PO DAILY 05/18/16 Omeprazole 40 mg PO QAM 05/18/16 Pioglitazone HCl [Actos] 45 mg PO DAILY 05/18/16 Pramipexole Di-HCl [Mirapex] 0.125 mg PO Q8 05/18/16 Sacubitril/Valsartan [Entresto 24 mg-26 mg Tablet] 1 each PO Q12 05/18/16 Spironolactone [Aldactone 25 mg Tablet] 25 mg PO DAILY 05/18/16 Tramadol HCl [Ultram 50 mg Tablet] 50 mg PO Q6HP PRN 05/18/16 Ubidecarenone/Vit E Acetate [Co Q-10 100 mg Softgel] 1 each PO WLUNCH 05/18/16 Allergies/Adverse Reactions: codeine [Codeine] Adverse Reaction (Unknown, Verified 05/17/16 20:17) Review of Systems Constitutional: ABSENT: chills, fever(s), headache(s), weight gain, weight loss Eyes: ABSENT: visual disturbances Ears: ABSENT: hearing changes Cardiovascular: PRESENT: chest pain Respiratory: ABSENT: cough, hemoptysis Gastrointestinal: ABSENT: abdominal pain, constipation, diarrhea, hematemesis, hematochezia, nausea, vomiting Genitourinary: ABSENT: dysuria, hematuria Musculoskeletal: ABSENT: joint swelling Integumentary: ABSENT: rash, wounds Neurological: ABSENT: abnormal gait, abnormal speech, confusion, dizziness, focal weakness, syncope Psychiatric: ABSENT: anxiety, depression, homidical ideation, suicidal ideation Endocrine: ABSENT: cold intolerance, heat intolerance, menstrual abnormalities, polydipsia, polyuria Hematologic/Lymphatic: ABSENT: easy bleeding, easy bruising, lymphadenopathy Physical Exam Vital Signs: Temp Pulse Resp BP Pulse Ox 98.3 F 105 H 18 129/59 H 97 05/18/16 08:58 05/18/16 08:58 05/18/16 08:58 05/18/16 08:58 05/18/16 08:58 Intake & Output 05/17/16 05/18/16 05/19/16 06:59 06:59 06:59 Intake Total 537 Balance 537 Weight 110 kg General appearance: PRESENT: no acute distress, well-developed, well-nourished Head exam: PRESENT: atraumatic, normocephalic Eye exam: PRESENT: conjunctiva pink, EOMI, PERRLA. ABSENT: scleral icterus Ear exam: PRESENT: normal external ear exam Mouth exam: PRESENT: moist, tongue midline Neck exam: PRESENT: full ROM Respiratory exam: PRESENT: chest wall tenderness, rhonchi Cardiovascular exam: PRESENT: RRR, +S1, +S2 Pulses: PRESENT: normal dorsalis pedis pul, +2 pedal pulses bilateral Vascular exam: PRESENT: normal capillary refill GI/Abdominal exam: PRESENT: normal bowel sounds, soft Rectal exam: PRESENT: deferred Neurological exam: PRESENT: alert, awake, oriented to person, oriented to place , oriented to time, oriented to situation, CN II-XII grossly intact. ABSENT: motor sensory deficit Psychiatric exam: PRESENT: appropriate affect, normal mood. ABSENT: homicidal ideation, suicidal ideation Skin exam: PRESENT: dry, intact, warm. ABSENT: cyanosis, rash Results Laboratory Results: 05/18/16 05/18/16 05/18/16 03:05 10:35 10:35 Creatine Kinase 62 CK-MB (CK-2) 0.97 1.21 Troponin I 0.072 0.054 Impressions: Chest X-Ray 05/17/16 18:34 IMPRESSION: NO ACUTE RADIOGRAPHIC FINDING IN THE CHEST. Assessment & Plan - Diagnosis (1) Chest pain Qualifiers: Chest pain type: unspecified Qualified Code(s): R07.9 - Chest pain, unspecified Is this a current diagnosis for this admission?: YesPlan: She was admitted for observation and the 3 sets of cardiac enzymes were negative for acute NC, clinically she has a chest wall pain I do not see any indication for inpatient care at this time
--- NOTE | 2016-05-18 13:42 | PDOC DISCHARGE SUMMARY ---
General - Admit/Disc Date/PCP Admission Date/Primary Care Provider: 05/18/16 02:43 TANISHA POLLARD MD Discharge Date: 05/18/16 - Discharge Diagnosis (1) Chest pain Is this a current diagnosis for this admission?: Yes - Additional Information Resuscitation Status: Full Code Home Medications: Aspirin [Ecotrin 81 mg EC Tablet] 81 mg PO DAILY 05/18/16 Atorvastatin Calcium [Lipitor 40 mg Tablet] 40 mg PO QHS 05/18/16 Clopidogrel Bisulfate [Plavix 75 mg Tablet] 75 mg PO DAILY 05/18/16 Duloxetine HCl [Cymbalta] 60 mg PO DAILY 05/18/16 Gabapentin [Neurontin] 600 mg PO Q8 05/18/16 Insulin Detemir [Levemir Flextouch] 15 units SQ QAM 05/18/16 Lisinopril [Prinivil 2.5 mg Tablet] 2.5 mg PO DAILY 05/18/16 Magnesium Oxide [Mag-Ox 400 mg Tablet] 400 mg PO DAILY 05/18/16 Melatonin 6 mg PO QHS 05/18/16 Metformin HCl [Metformin HCl ER] 500 mg PO WSUPPER 05/18/16 Metoprolol Succinate [Toprol Xl 50 mg Tab.sr] 50 mg PO DAILY 05/18/16 Omeprazole 40 mg PO QAM 05/18/16 Pioglitazone HCl [Actos] 45 mg PO DAILY 05/18/16 Pramipexole Di-HCl [Mirapex] 0.125 mg PO Q8 05/18/16 Sacubitril/Valsartan [Entresto 24 mg-26 mg Tablet] 1 each PO Q12 05/18/16 Spironolactone [Aldactone 25 mg Tablet] 25 mg PO DAILY 05/18/16 Tramadol HCl [Ultram 50 mg Tablet] 50 mg PO Q6HP PRN 05/18/16 Ubidecarenone/Vit E Acetate [Co Q-10 100 mg Softgel] 1 each PO WLUNCH 05/18/16 History of Present Illness History of Present Illness: TORREY MARKS is a 65 year old female, she was recently admitted in this hospital on 04/21/2016 when she had chest pain at that time she also had a Cardiolite Lexiscan stress test on it was negative for any acute reversibility. She was discharged from the hospital on 04/22/2016 she came to the emergency room because of chest pain, it is to be noted that the chest pain she has now is the same chest pain she had when she was admitted on 04/21/2016, she said the chest pain never resolved. She has a chest wall pain, the chest pain is reproducible on palpation of the chest wall, on the last admission she was supposed to see Dr. Gaxiola outpatient for further evaluation of her coronary artery disease. She also had a left bundle branch block, she was brought in for observation status of enzymes were negative for acute MN. She could be discharged home on she would need to follow with Dr. Gaixola outpatient for further evaluation of the chest pain she is experiencing. The chest pain is atypical in character he does not seems to be ischemic chest pain , the chest pain is not provoked by activity is a constant intense pain aggravated with palpation of the chest wall. Hospital Course Hospital Course: She was admitted for observation check my H&P for details, 3 sets of cardiac enzymes were negative for acute MN Physical Exam Vital Signs: Temp Pulse Resp BP Pulse Ox 98.3 F 105 H 18 129/59 H 97 05/18/16 08:58 05/18/16 08:58 05/18/16 08:58 05/18/16 08:58 05/18/16 08:58 Intake & Output 05/17/16 05/18/16 05/19/16 06:59 06:59 06:59 Intake Total 537 Balance 537 Weight 110 kg General appearance: PRESENT: no acute distress, well-developed, well-nourished Head exam: PRESENT: atraumatic, normocephalic Eye exam: PRESENT: conjunctiva pink, EOMI, PERRLA Ear exam: PRESENT: normal external ear exam Mouth exam: PRESENT: moist, tongue midline Neck exam: PRESENT: full ROM Respiratory exam: PRESENT: chest wall tenderness, clear to auscultation rolf Cardiovascular exam: PRESENT: RRR, +S1, +S2 Pulses: PRESENT: normal dorsalis pedis pul, +2 pedal pulses bilateral Vascular exam: PRESENT: normal capillary refill GI/Abdominal exam: PRESENT: normal bowel sounds, soft Rectal exam: PRESENT: deferred Neurological exam: PRESENT: alert, awake, oriented to person, oriented to place , oriented to time, oriented to situation, CN II-XII grossly intact. ABSENT: motor sensory deficit Psychiatric exam: PRESENT: appropriate affect, normal mood Skin exam: PRESENT: dry, intact, warm. ABSENT: cyanosis, rash Results Laboratory Results: 05/18/16 05/18/16 05/18/16 03:05 10:35 10:35 Creatine Kinase 62 CK-MB (CK-2) 0.97 1.21 Troponin I 0.072 0.054 Impressions: Chest X-Ray 05/17/16 18:34 IMPRESSION: NO ACUTE RADIOGRAPHIC FINDING IN THE CHEST.
[2016-05-18 19:01] LABS: CREATINE KINASE MB 2.09 ng/mL (<4.55)
[2016-05-18 19:08] LABS: TROPONIN I 0.144 ng/mL
[2016-05-18] MEDS: MORPHINE SULFATE 10 MG/ML INJ IV PRN (21:28)
[2016-05-19] MEDS: MORPHINE SULFATE 10 MG/ML INJ IV PRN ×6 (03:07→23:27)
[2016-05-19] MEDS: ONDANSETRON HCL INJ/PF 4 MG/2 ML SDV IV PRN ×2 (03:07→17:29)
--- NOTE | 2016-05-19 12:35 | PDOC PROGRESS REPORT ---
Subjective Progress Note for:: 05/19/16 Subjective:: Patient discharge was canceled because of positive troponin I. Patient is a poor historian. She has history of CAD, PVD. Patient's recent hospitalization was reviewed. she was recently admitted in this hospital on 04/21/2016 when she had chest pain at that time she also had a Cardiolite Lexiscan stress test. She was discharged from the hospital on 04/22/2016 she came to the emergency room because of chest pain, it is to be noted that the chest pain she has now is the same chest pain she had when she was admitted on 04/21/2016, she said the chest pain never resolved.. She also had a left bundle branch block, she was brought in for observation, however this time she ruled in for myocardial infarction. Patient also has a history of depressed LVEF. It is felt that patient will benefit from heart catheterization and possible evaluation for defibrillator therapy. Physical Exam Vital Signs: Temp Pulse Resp BP Pulse Ox 98.2 F 110 H 19 132/76 H 100 05/19/16 09:00 05/19/16 09:00 05/19/16 09:00 05/19/16 09:00 05/19/16 09:00 Intake & Output 05/18/16 05/19/16 05/20/16 06:59 06:59 06:59 Intake Total 537 1171 Balance 537 1171 Weight 109.2 kg Exam: GENERAL: well-nourished and in no acute distress. Alert and oriented x3 HEAD: Atraumatic, normocephalic. EYES: Pupils equal round and reactive to light, extraocular movements intact, sclera anicteric, conjunctiva are normal. ENT: TMs normal, nares patent, oropharynx clear without exudates. Moist mucous membranes. No oral ulcerations or bleeding gums noted NECK: supple without lymphadenopathy. Trachea is central. No cervical or axillary lymphadenopathy noted. Carotids are 2+, JVD WNL LUNGS: Respiration seems nonlabored, no significant accessory muscle action noted. Breath sounds clear to auscultation bilaterally and equal noted. No wheezes rales or rhonchi noted. No significant dullness noted on percussion. CHEST: Palpation of the chest wall shows no significant chest wall tenderness. No other significant abnormalities noted. 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 ABDOMEN: Soft, no significant tenderness appreciated, normoactive bowel sounds. No guarding, no rebound. No rigidity noted . No masses appreciated. EXTREMITIES: no calf tenderness noted. No clubbing or cyanosis.trace to 1+ pedal edema noted. Lower extremity pulses are severely reduced. NEUROLOGICAL: Focused neurological exam showed no significant neurologic deficit. Normal speech, no focal weakness appreciated. PSYCH: Normal mood, normal affect. Judgment and insight within normal limits. SKIN: No significant ecchymosis, rash, ulcerations or signs of pruritus noted. MUSCULOSKELETAL EXAM: No significant joint swelling noted. Results Laboratory Results: 05/18/16 05/18/16 05/18/16 03:05 10:35 10:35 Creatine Kinase 62 CK-MB (CK-2) 0.97 1.21 Troponin I 0.072 0.054 05/18/16 05/18/16 18:15 18:15 Creatine Kinase 56 CK-MB (CK-2) 2.09 Troponin I 0.144 Impressions: Chest X-Ray 05/17/16 18:34 IMPRESSION: NO ACUTE RADIOGRAPHIC FINDING IN THE CHEST. Assessment & Plan - Diagnosis (1) Non-STEMI (non-ST elevated myocardial infarction) Is this a current diagnosis for this admission?: YesPlan: Patient presented with chest pain now has suggestive enzymes. Patient therefore ruled in for non-STEMI. Recommend full dose Lovenox, statins, dual antiplatelet therapy, beta blockers, will add Ranexa. Patient will benefit from heart catheter and revascularization in view of reduced LVEF. This was explained to the patient and also discussed with Dr. Jackson. Should patient start having recurrent chest pain then will recommend emergency transfer. (2) Chest pain Qualifiers: Chest pain type: chest pain due to myocardial ischemia Is this a current diagnosis for this admission?: YesPlan: This is now felt to be due to myocardial ischemia. Medical management is being optimized. (3) Coronary artery disease Qualifiers: Coronary Disease-Associated Artery/Lesion type: [place] artery [place] vs. transplanted heart: [place] heart Associated angina: angina presence unspecified Qualified Code(s): I25.10 - Atherosclerotic heart disease of [place] coronary artery without angina pectoris Is this a current diagnosis for this admission?: YesPlan: Patient gives history of stent. (4) Diabetes mellitus Qualifiers: Diabetes mellitus type: type 2 Diabetes mellitus complication status: with neurologic complications Diabetes mellitus complication detail: with polyneuropathy Is this a current diagnosis for this admission?: YesPlan: Diabetes: Recommend good control of blood sugar. However should avoid any hypoglycemia. Patient being expertly managed by primary care MStella (5) COPD (chronic obstructive pulmonary disease) Qualifiers: COPD type: COPD with acute exacerbation Qualified Code(s): J44.1 - Chronic obstructive pulmonary disease with (acute) exacerbation Is this a current diagnosis for this admission?: YesPlan: COPD patient encouraged to avoid first-hand and secondhand smoking. Patient also advised to avoid environmental pollutants. Patient to use bronchodilator and steroid therapy as has been prescribed by PMD and other specialists. (6) Peripheral vascular disease Is this a current diagnosis for this admission?: YesPlan: PVD: No acute limb ischemia noted. Based on previous evaluation, patient has significant PVD. Further evaluation can be performed as an outpatient. Foot care discussed. Rest ischemia symptoms discussed. Patient to report immediately if such symptoms occur. - Notes Notes: CODE STATUS was discussed, patient remains full code. Surrogate decision-maker unchanged. Multiple medical problems were addressed.More than 50% of the time spent coordinating care, discussing management plans with involved caregivers. Management plans discussed with involved personnels. Medical decision making was of moderate complexity. - Time Time with patient: Greater than 35 minutes - CODE STATUS was discussed, patient remains full code. Surrogate decision-maker patient's daughter. Multiple medical problems were addressed.More than 50% of the time spent coordinating care, discussing management plans with involved caregivers. Management plans discussed with involved personnels. Medical decision making was of moderate complexity. Medications reviewed and adjusted accordingly: Yes
[2016-05-19] MEDS: ENOXAPARIN SODIUM INJ 120 MG/0.8 ML DISP.SYRIN SUBCUT SCH (17:30)
[2016-05-19] MEDS ORDERED: TRAMADOL HCL 50 MG TABLET PO PRN (17:53)
--- NOTE | 2016-05-19 17:58 | PDOC PROGRESS REPORT ---
Subjective Progress Note for:: 05/19/16 Subjective:: Patient was supposed to be discharged home yesterday after 36 of cardiac enzymes were negative for acute MS, she has a slight increase in troponin of 0.1 and because of that consultation was requested from cardiology and she was seen by Dr. Martinez he does recommended cardiac catheterization on the plan is for her to be transferred to [facility] tomorrow. I explained all this to patient and family Physical Exam Vital Signs: Temp Pulse Resp BP Pulse Ox 97.5 F 93 19 135/65 H 99 05/19/16 16:00 05/19/16 16:00 05/19/16 16:00 05/19/16 16:00 05/19/16 16:00 Intake & Output 05/18/16 05/19/16 05/20/16 06:59 06:59 06:59 Intake Total 537 1171 674 Balance 537 1171 674 Weight 109.2 kg General appearance: PRESENT: no acute distress Eye exam: PRESENT: PERRLA Respiratory exam: PRESENT: clear to auscultation rolf Cardiovascular exam: PRESENT: +S1, +S2 Neurological exam: PRESENT: alert Results Laboratory Results: 05/18/16 05/18/16 05/18/16 03:05 10:35 10:35 Creatine Kinase 62 CK-MB (CK-2) 0.97 1.21 Troponin I 0.072 0.054 05/18/16 05/18/16 18:15 18:15 Creatine Kinase 56 CK-MB (CK-2) 2.09 Troponin I 0.144 Impressions: Chest X-Ray 05/17/16 18:34 IMPRESSION: NO ACUTE RADIOGRAPHIC FINDING IN THE CHEST. Assessment & Plan - Diagnosis (1) Chest pain Qualifiers: Chest pain type: chest pain due to myocardial ischemia Is this a current diagnosis for this admission?: Yes
[2016-05-19] MEDS ORDERED: SACUBITRIL PO SCH (18:00)
[2016-05-19] MEDS ORDERED: VIT E ACETATE PO SCH (18:00)
[2016-05-19] MEDS ORDERED: VALSARTAN PO SCH (18:00)
[2016-05-19] MEDS ORDERED: UBIDECARENONE PO SCH (18:00)
[2016-05-19] MEDS ORDERED: GABAPENTIN 300 MG CAPSULE PO ONE (18:15)
[2016-05-19] MEDS ORDERED: DULOXETINE HCL 30 MG CAPSULE.DR PO ONE (18:15)
[2016-05-19] MEDS ORDERED: SPIRONOLACTONE 25 MG TABLET PO ONE (18:30)
[2016-05-19] MEDS ORDERED: METOPROLOL SUCCINATE 50 MG TAB.SR.24H PO ONE (18:30)
[2016-05-19] MEDS ORDERED: PRAMIPEXOLE DI-HCL 0.25 MG TABLET PO ONE (18:30)
[2016-05-19] MEDS ORDERED: LANSOPRAZOLE 30 MG TAB.RAP.DR PO ONE (18:30)
[2016-05-19] MEDS ORDERED: LISINOPRIL 5 MG TABLET PO ONE (18:30)
[2016-05-19] MEDS ORDERED: CLOPIDOGREL BISULFATE 75 MG TABLET PO ONE (18:30)
[2016-05-19] MEDS ORDERED: MAGNESIUM OXIDE 400 MG TABLET PO ONE (18:30)
[2016-05-19] MEDS ORDERED: PIOGLITAZONE HCL 30 MG TABLET PO ONE (18:30)
[2016-05-19] MEDS ORDERED: ASPIRIN 81 MG TABLET, ENT COATED PO ONE (19:00)
[2016-05-19] MEDS ORDERED: INSULIN DETEMIR 100 UNIT/ML 3 ML PEN SUBCUT ONE ×2 (19:30→21:46)
[2016-05-19] MEDS ORDERED: PIOGLITAZONE HCL 15 MG TABLET ONE (21:45)
[2016-05-19] MEDS ORDERED: PIOGLITAZONE HCL 30 MG TABLET ONE (21:46)
[2016-05-19] MEDS ORDERED: PRAMIPEXOLE DI-HCL 0.25 MG TABLET ONE (21:46)
[2016-05-19] MEDS ORDERED: ATORVASTATIN CALCIUM 40 MG TABLET PO SCH (22:00)
[2016-05-19] MEDS ORDERED: MELATONIN 6 MG PO SCH (22:00)
[2016-05-19] MEDS: IPRATROPIUM/ALBUTEROL 0.5-2.5 MG/3 ML AMPUL NEB PRN (22:12)
[2016-05-19] MEDS: RANOLAZINE 500 MG TAB.SR.12H PO SCH (22:34)
[2016-05-20] MEDS ORDERED: FLUTICASONE/SALMETEROL DISKUS 250-50 MCG/DOSE IH ONE (00:16)
[2016-05-20] MEDS: MORPHINE SULFATE 10 MG/ML INJ IV PRN ×2 (03:51→08:31)
[2016-05-20] MEDS: IPRATROPIUM/ALBUTEROL 0.5-2.5 MG/3 ML AMPUL NEB PRN ×2 (04:08→13:35)
[2016-05-20] MEDS: ENOXAPARIN SODIUM INJ 120 MG/0.8 ML DISP.SYRIN SUBCUT SCH ×2 (06:17→17:03)
[2016-05-20] MEDS: GABAPENTIN 300 MG CAPSULE PO SCH ×2 (06:17→15:13)
[2016-05-20] MEDS ORDERED: PRAMIPEXOLE DI-HCL 0.25 MG TABLET ONE (06:32)
[2016-05-20] MEDS: PRAMIPEXOLE DI-HCL 0.25 MG TABLET PO SCH ×2 (07:49→15:14)
[2016-05-20] MEDS ORDERED: INSULIN DETEMIR 100 UNIT/ML 3 ML PEN SUBCUT SCH (08:00)
[2016-05-20] MEDS ORDERED: LANSOPRAZOLE 30 MG TAB.RAP.DR PO SCH (08:00)
[2016-05-20] MEDS ORDERED: SACUBITRIL/VALSARTAN 24 MG/26 MG TABLET PO ONE (08:30)
[2016-05-20] MEDS: ONDANSETRON HCL INJ/PF 4 MG/2 ML SDV IV PRN (08:37)
[2016-05-20] MEDS ORDERED: DULOXETINE HCL 30 MG CAPSULE.DR PO SCH (10:00)
[2016-05-20] MEDS ORDERED: CLOPIDOGREL BISULFATE 75 MG TABLET PO SCH (10:00)
[2016-05-20] MEDS ORDERED: PIOGLITAZONE HCL 30 MG TABLET PO SCH ×2 (10:00)
[2016-05-20] MEDS ORDERED: METOPROLOL SUCCINATE 50 MG TAB.SR.24H PO SCH (10:00)
[2016-05-20] MEDS ORDERED: SPIRONOLACTONE 25 MG TABLET PO SCH (10:00)
[2016-05-20] MEDS ORDERED: LISINOPRIL 5 MG TABLET PO SCH (10:00)
[2016-05-20] MEDS ORDERED: ASPIRIN 81 MG TABLET, ENT COATED PO SCH (10:00)
[2016-05-20] MEDS ORDERED: MAGNESIUM OXIDE 400 MG TABLET PO SCH (10:00)
[2016-05-20] MEDS: RANOLAZINE 500 MG TAB.SR.12H PO SCH (12:06)
[2016-05-20] MEDS: FLUTICASONE/SALMETEROL DISKUS 250-50 MCG/DOSE IH SCH ×2 (12:07→17:03)
[2016-05-20 15:09] VITALS: BP 100/58
[2016-05-20] MEDS ORDERED: METFORMIN HCL 500 MG TABLET PO SCH (17:00)
[2016-05-20] MEDS ORDERED: DEXTROSE 40% GEL 15 GM TUBE PO PRN (18:25)
[2016-05-20] MEDS ORDERED: DEXTROSE 40% GEL 15 GM TUBE X 2 PO PRN (18:25)
[2016-05-20] MEDS ORDERED: DEXTROSE 50%-WATER SYRINGE 12.5 GM/25 ML DOSE IV PRN (18:25)
[2016-05-20] MEDS ORDERED: GLUCAGON,HUMAN RECOMB 1 MG INJ IM PRN (18:25)
[2016-05-20] MEDS ORDERED: DEXTROSE 50%-WATER SYRINGE 25 GM/50 ML DOSE IV PRN (18:25)
[2016-05-20] MEDS ORDERED: INSULIN LISPRO 100 UNIT/ML 3 ML VIAL SUBCUT PRN (18:25)
--- NOTE | 2016-05-20 18:40 | PDOC TRANSFER SUMMARY ---
General Admission Date/PCP: 05/19/16 17:55 TANISHA POLLARD MD Resuscitation Status: Full Code - Transfer Diagnosis (1) Chest pain Is this a current diagnosis for this admission?: Yes (2) Elevated troponin Is this a current diagnosis for this admission?: Yes (3) Non-ST elevated myocardial infarction Is this a current diagnosis for this admission?: Yes - Transfer Medications Home Medications: Aspirin [Ecotrin 81 mg EC Tablet] 81 mg PO DAILY 05/18/16 Atorvastatin Calcium [Lipitor 40 mg Tablet] 40 mg PO QHS 05/18/16 Clopidogrel Bisulfate [Plavix 75 mg Tablet] 75 mg PO DAILY 05/18/16 Duloxetine HCl [Cymbalta] 60 mg PO DAILY 05/18/16 Gabapentin [Neurontin] 600 mg PO Q8 05/18/16 Insulin Detemir [Levemir Flextouch] 15 units SQ QAM 05/18/16 Lisinopril [Prinivil 2.5 mg Tablet] 2.5 mg PO DAILY 05/18/16 Magnesium Oxide [Mag-Ox 400 mg Tablet] 400 mg PO DAILY 05/18/16 Melatonin 6 mg PO QHS 05/18/16 Metformin HCl [Metformin HCl ER] 500 mg PO WSUPPER 05/18/16 Metoprolol Succinate [Toprol Xl 50 mg Tab.sr] 50 mg PO DAILY 05/18/16 Omeprazole 40 mg PO QAM 05/18/16 Pioglitazone HCl [Actos] 45 mg PO DAILY 05/18/16 Pramipexole Di-HCl [Mirapex] 0.125 mg PO Q8 05/18/16 Sacubitril/Valsartan [Entresto 24 mg-26 mg Tablet] 1 each PO Q12 05/18/16 Spironolactone [Aldactone 25 mg Tablet] 25 mg PO DAILY 05/18/16 Tramadol HCl [Ultram 50 mg Tablet] 50 mg PO Q6HP PRN 05/18/16 Ubidecarenone/Vit E Acetate [Co Q-10 100 mg Softgel] 1 each PO WLUNCH 05/18/16 Transfer Medications: Current Medications Acetaminophen (Tylenol 325 Mg Tablet) 650 mg PO Q4HP PRN PRN Reason: PAIN Stop: 06/17/16 01:22 Last Admin: 05/18/16 02:16 Dose: 650 mg Albuterol/Ipratropium (Duoneb 3 Ml Ampul) 3 ml NEB Q4HP PRN PRN Reason: SHORTNESS OF BREATH Stop: 06/18/16 21:57 Last Admin: 05/20/16 13:35 Dose: 3 ml Aspirin (Ecotrin 81 Mg Ec Tablet) 81 mg PO DAILY JONES Stop: 06/19/16 09:59 Last Admin: 05/20/16 11:58 Dose: 81 mg Atorvastatin Calcium (Lipitor 40 Mg Tablet) 40 mg PO QHS JONES Stop: 06/18/16 21:59 Last Admin: 05/19/16 22:33 Dose: 40 mg Clopidogrel Bisulfate (Plavix 75 Mg Tablet) 75 mg PO DAILY COUNTS INCLUDE 234 BEDS AT THE [facility] Stop: 06/19/16 09:59 Last Admin: 05/20/16 11:57 Dose: 75 mg Dextrose (Dextrose Inj 50% Syringe (25 Gm/50 Ml)) 12.5 gm IV PRN PRN; Protocol PRN Reason: FOR BG 50-69 IN ALERT PATIENT Stop: 06/19/16 18:24 Dextrose (Dextrose Inj 50% Syringe (25 Gm/50 Ml)) 25 gm IV PRN PRN PRN Reason: Protocol Stop: 06/19/16 18:24 Duloxetine HCl (Cymbalta 30 Mg Capsule.Dr) 60 mg PO DAILY COUNTS INCLUDE 234 BEDS AT THE [facility] Stop: 06/19/16 09:59 Last Admin: 05/20/16 11:59 Dose: 60 mg Enoxaparin Sodium (Lovenox Inj 120 Mg/0.8 Ml Disp.Syrin) 110 mg SUBCUT Q12A COUNTS INCLUDE 234 BEDS AT THE [facility] Stop: 06/18/16 17:59 Last Admin: 05/20/16 17:03 Dose: Not Given Gabapentin (Neurontin 300 Mg Capsule) 600 mg PO Q8 JONES Stop: 06/19/16 05:59 Last Admin: 05/20/16 15:13 Dose: 600 mg Glucagon (Glucagen Inj 1 Mg Vial) 1 mg IM PRN PRN; Protocol PRN Reason: EVALUATE FOR BG < 70 Stop: 06/19/16 18:24 Glucose (Glutose 40% Gel 15 Gm Tube) 15 gm PO PRN PRN; Protocol PRN Reason: FOR BG 50-69 IN ALERT PATIENT Stop: 06/19/16 18:24 Glucose (Glutose 40% Gel 15 Gm Tube) 30 gm PO PRN PRN; Protocol PRN Reason: FOR BG < 50 IN ALERT PATIENT Stop: 06/19/16 18:24 Insulin Detemir (Levemir Insulin 300 Units/3 Ml Insuln.Pen) 15 unit SUBCUT QAM COUNTS INCLUDE 234 BEDS AT THE [facility] Stop: 06/19/16 07:59 Last Admin: 05/20/16 08:34 Dose: 15 unit Insulin Human Lispro (Humalog Insulin 100 Unit/1 Ml 3 Ml Vial) 0 - 12 unit SUBCUT ACHSP PRN PRN Reason: Protocol Stop: 06/19/16 18:24 Lansoprazole (Prevacid 30 Mg Odt Tablet) 30 mg PO QAMUSCOGEE Stop: 06/19/16 07:59 Last Admin: 05/20/16 08:37 Dose: 30 mg Lisinopril (Prinivil 5 Mg Tablet) 2.5 mg PO DAILY COUNTS INCLUDE 234 BEDS AT THE [facility] Stop: 06/19/16 09:59 Last Admin: 05/20/16 12:08 Dose: Not Given Magnesium Oxide (Mag-Ox 400 Mg Tablet) 400 mg PO DAILY COUNTS INCLUDE 234 BEDS AT THE [facility] Stop: 06/19/16 09:59 Last Admin: 05/20/16 11:58 Dose: 400 mg Metformin HCl (Glucophage 500 Mg Tablet) 500 mg PO WSUPPER COUNTS INCLUDE 234 BEDS AT THE [facility] Stop: 06/19/16 16:59 Last Admin: 05/20/16 16:51 Dose: 500 mg Metoprolol Succinate (Toprol Xl 50 Mg Tab.Sr) 50 mg PO DAILY COUNTS INCLUDE 234 BEDS AT THE [facility] Stop: 06/19/16 09:59 Last Admin: 05/20/16 12:08 Dose: Not Given Morphine Sulfate (Morphine 10 Mg/Ml Inj) 4 mg IV Q2HP PRN Stop: 05/24/16 19:29 Last Admin: 05/20/16 08:31 Dose: 4 mg Ondansetron HCl (Zofran Inj/Pf 4 Mg/2 Ml Sdv) 4 mg IV Q4HP PRN PRN Reason: NAUSEA Stop: 06/17/16 01:22 Last Admin: 05/20/16 08:37 Dose: 4 mg Patient Own Medication (Ubidecarenone/Vit E Acetate [Co Q-10 100 Mg Softgel]) 1 each PO .WLUNCH COUNTS INCLUDE 234 BEDS AT THE [facility] Stop: 06/18/16 17:59 Patient Own Medication (Melatonin [Melatonin]) 6 mg PO QHS COUNTS INCLUDE 234 BEDS AT THE [facility] Stop: 06/18/16 21:59 Pioglitazone HCl (Actos 30 Mg Tablet) 45 mg PO DAILY COUNTS INCLUDE 234 BEDS AT THE [facility] Stop: 06/19/16 09:59 Last Admin: 05/20/16 12:04 Dose: 45 mg Pramipexole Dihydrochloride (Mirapex 0.25 Mg Tablet) 0.125 mg PO Q8 JONES Stop: 06/19/16 05:59 Last Admin: 05/20/16 15:14 Dose: 0.125 mg Ranolazine (Ranexa 500 Mg Tab.Sr) 500 mg PO Q12 JONES Stop: 06/18/16 21:59 Last Admin: 05/20/16 12:06 Dose: 500 mg Sacubitril/Valsartan (Entresto 24 Mg/26 Mg Tablet) 1 tab PO Q12 JONES Stop: 06/19/16 21:59 Fluticasone/Salmeterol (Advair 250-50 Diskus 14 Dose/Diskus) 1 inh IH BID JONES Stop: 06/19/16 09:59 Last Admin: 05/20/16 17:03 Dose: 1 inh Spironolactone (Aldactone 25 Mg Tablet) 25 mg PO DAILY JONES Stop: 06/19/16 09:59 Last Admin: 05/20/16 12:08 Dose: Not Given Tramadol HCl (Ultram 50 Mg Tablet) 50 mg PO Q6HP PRN PRN Reason: FOR PAIN Stop: 05/26/16 17:52 Last Admin: 05/20/16 15:22 Dose: 50 mg - Allergies Allergies/Adverse Reactions: codeine [Codeine] Adverse Reaction (Unknown, Verified 05/17/16 20:17) - Diet/Activity Discharge Diet: Diabetic Hospital Course Hospital Course: Patient was admitted when she presented with chest pain. She was recently admitted in this hospital on 04/22/1907/06/2016 with chest pain at that time she had a Cardiolite Lexiscan stress test and it was negative for any acute reversibility. She was discharged from the hospital on 04/22/2016. The chest pain that she had now is the same chest pain she had when she was admitted on , she said the chest pain never resolved, she is very tender on palpation of the chest wall the presentation is atypical in character. She has a history of left bundle branch block patient was brought here for observation because the initial sets of cardiac troponin was indeterminate, the troponin bumped up to 0.1 in the acute [place] range, because of this elevation consultation was requested from cardiology. She was seen by Dr. Martinez that suggested the patient should have cardiac catheterization, He made the arrangement for patient transferred to [place] to have the procedure done. Physical Exam Vital Signs: Temp Pulse Resp BP Pulse Ox 98.3 F 81 24 H 100/58 L 98 05/20/16 14:42 05/20/16 14:42 05/20/16 14:42 05/20/16 15:08 05/20/16 16:00 Intake & Output 05/19/16 05/20/16 05/21/16 06:59 06:59 06:59 Intake Total 960 570 Balance 960 570 General appearance: PRESENT: no acute distress, well-developed, well-nourished Head exam: PRESENT: atraumatic, normocephalic Eye exam: PRESENT: conjunctiva pink, EOMI, PERRLA Ear exam: PRESENT: normal external ear exam Mouth exam: PRESENT: moist, tongue midline Respiratory exam: PRESENT: clear to auscultation rolf Cardiovascular exam: PRESENT: RRR Pulses: PRESENT: normal dorsalis pedis pul Vascular exam: PRESENT: normal capillary refill GI/Abdominal exam: PRESENT: normal bowel sounds, soft Rectal exam: PRESENT: deferred Extremities exam: PRESENT: full ROM Neurological exam: PRESENT: alert, awake, oriented to person, oriented to place , oriented to time, oriented to situation, CN II-XII grossly intact Psychiatric exam: PRESENT: appropriate affect, normal mood Skin exam: PRESENT: dry, intact, warm Results Impressions: Chest X-Ray 05/17/16 18:34 IMPRESSION: NO ACUTE RADIOGRAPHIC FINDING IN THE CHEST.
[2016-05-20] MEDS ORDERED: SACUBITRIL/VALSARTAN 24 MG/26 MG TABLET PO SCH (22:00)
--- NOTE | 2016-05-21 06:10 | PDOC PROGRESS REPORT ---
Subjective Progress Note for:: 05/20/16 Subjective:: Patient discharge was canceled because of positive troponin I. Patient is a poor historian. She has history of CAD, PVD. Patient's recent hospitalization was reviewed. she was recently admitted in this hospital on 04/21/2016 when she had chest pain at that time she also had a Cardiolite Lexiscan stress test. She was discharged from the hospital on 04/22/2016 she came to the emergency room because of chest pain, it is to be noted that the chest pain she has now is the same chest pain she had when she was admitted on 04/21/2016, she said the chest pain never resolved.. She also had a left bundle branch block, she was brought in for observation, however this time she ruled in for myocardial infarction. Patient also has a history of depressed LVEF. It is felt that patient will benefit from heart catheterization and possible evaluation for defibrillator therapy. Patient today decided that she would rather go to [facility] for heart catheterization and further treatment. This decision was made by patient' s daughter for her. Patient otherwise remained comfortable. Her medical regimen was optimized yesterday. Today I talked with cold rolling coordinator at [facility] and transferred her for heart catheterization, possible defibrillator placement etc. Physical Exam Vital Signs: Temp Pulse Resp BP Pulse Ox 98.3 F 81 24 H 100/58 L 98 05/20/16 14:42 05/20/16 14:42 05/20/16 14:42 05/20/16 15:08 05/20/16 16:00 Intake & Output 05/19/16 05/20/16 05/21/16 06:59 06:59 06:59 Intake Total 960 570 Balance 960 570 Exam: GENERAL: well-nourished and in no acute distress. Alert and oriented x3 HEAD: Atraumatic, normocephalic. EYES: Pupils equal round and reactive to light, extraocular movements intact, sclera anicteric, conjunctiva are normal. ENT: TMs normal, nares patent, oropharynx clear without exudates. Moist mucous membranes. No oral ulcerations or bleeding gums noted NECK: supple without lymphadenopathy. Trachea is central. No cervical or axillary lymphadenopathy noted. Carotids are 2+, JVD WNL LUNGS: Respiration seems nonlabored, no significant accessory muscle action noted. Breath sounds clear to auscultation bilaterally and equal noted. No wheezes rales or rhonchi noted. No significant dullness noted on percussion. CHEST: Palpation of the chest wall shows no significant chest wall tenderness. No other significant abnormalities noted. 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 ABDOMEN: Soft, no significant tenderness appreciated, normoactive bowel sounds. No guarding, no rebound. No rigidity noted . No masses appreciated. EXTREMITIES: Pedal pulses are trace to 1+ and significantly reduced. no calf tenderness noted. No clubbing or cyanosis.trace to 1+ pedal edema noted NEUROLOGICAL: Focused neurological exam showed no significant neurologic deficit. Normal speech, no focal weakness appreciated. PSYCH: Normal mood, normal affect. Judgment and insight within normal limits. SKIN: No significant ecchymosis, rash, ulcerations or signs of pruritus noted. MUSCULOSKELETAL EXAM: No significant joint swelling noted. Results Impressions: Chest X-Ray 05/17/16 18:34 IMPRESSION: NO ACUTE RADIOGRAPHIC FINDING IN THE CHEST. Assessment & Plan - Diagnosis (1) Non-STEMI (non-ST elevated myocardial infarction) Is this a current diagnosis for this admission?: Yes (2) Chest pain Qualifiers: Chest pain type: chest pain due to myocardial ischemia Is this a current diagnosis for this admission?: Yes (3) Coronary artery disease Qualifiers: Coronary Disease-Associated Artery/Lesion type: [place] artery [place] vs. 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 Patient therefore is felt to be in high risk category. Arrangement was made by me therefore to transfer patient to tertiary [facility]. I arranged for the transfer. Discussed case with Dr. POLLARD and cold rolling coordinator. Dr. Pollard to do discharge summary. Patient being transferred for heart catheterization and possible defibrillator placement if no revascularization is performed. Chest pain: Patient was stable today but does have shortness of breath on mild exertion. Have optimized management of underlying CAD. CAD: The management is being optimized. Believe that patient may have significant CAD. Patient to be evaluated with a heart catheterization. Diabetes: Recommend good control of blood sugar. However should avoid any hypoglycemia. Patient being expertly managed by primary care MStella COPD: patient encouraged to avoid first-hand and secondhand smoking. Patient also advised to avoid environmental pollutants. Patient to use bronchodilator and steroid therapy as has been prescribed by PMD and other specialists. PVD: No acute limb ischemia noted. Based on previous evaluation, patient has significant PVD. Further evaluation can be performed as an outpatient. Foot care discussed. Rest ischemia symptoms discussed. Patient to report immediately if such symptoms occur. - Time Time with patient: Greater than 35 minutes - CODE STATUS was discussed, patient remains full code. Surrogate decision-maker patient's daughter. Multiple medical problems were addressed.More than 50% of the time spent coordinating care, discussing management plans with involved caregivers. Management plans discussed with involved personnels. Medical decision making was of moderate complexity. Significant time spent discussing case with nurse, Dr. POLLARD and arranging transfer to [facility]. Smoking Education Provided: Over 3 minutes
== END 2016-05-20 19:39 | disposition short-term general hospital (02) | DRG 282 ==
LOC: ER 18:25 → INTOOBSV 22:11 → EH 22:11 → UNDOADMOB 22:11 → EH 05-18 01:02 → 5 05-18 01:02 → EH 05-18 02:43 → OBSVTOIN 05-19 17:55
PROVIDERS: ADMIT Internal Medicine; ATTEND Internal Medicine
DX: I21.4 Non-ST elevation (NSTEMI) myocardial infarction (principal); I25.10 Atherosclerotic heart disease of native coronary artery without angina pectoris; E78.5 Hyperlipidemia, unspecified; I10 Essential (primary) hypertension; J44.9 Chronic obstructive pulmonary disease, unspecified; E11.9 Type 2 diabetes mellitus without complications; M19.90 Unspecified osteoarthritis, unspecified site; M79.7 Fibromyalgia; F32.9 Major depressive disorder, single episode, unspecified; I73.9 Peripheral vascular disease, unspecified; Z79.84 Long term (current) use of oral hypoglycemic drugs; Z79.82 Long term (current) use of aspirin; Z79.899 Other long term (current) drug therapy; Z86.14 Personal history of Methicillin resistant Staphylococcus aureus infection; Z90.49 Acquired absence of other specified parts of digestive tract; Z90.710 Acquired absence of both cervix and uterus; Z95.5 Presence of coronary angioplasty implant and graft; F17.210 Nicotine dependence, cigarettes, uncomplicated; Z88.8 Allergy status to other drugs, medicaments and biological substances
CPT/HCPCS: 36415; 71010; 80053; 82550; 82553; 82803; 82962; 84484; 85025; 93005; 93010; 93306; 94640; 96374; 99285; G0378; J1650; J1815; J2270; J2405; J3490; J7620

== ENCOUNTER 2016-06-13 20:26 | Inpatient (IN) | payer MEDICAID ==
--- NOTE | 2016-06-13 20:51 | ER Document Report ---
ED Respiratory Problem - General Chief Complaint: Breathing Difficulty Stated Complaint: BREATHING DIFFICULTY Time seen by provider: 20:50 Mode of Arrival: Medic Information source: Patient TRAVEL OUTSIDE OF THE [place] IN LAST 30 DAYS: No - HPI Patient complains to provider of: COPD, Cough, Short of breath Onset: Yesterday Duration: Worse/persistent Quality of pain: No pain Context: Hx COPD Short of Breath: Severe Chest pain/discomfort: Tightness Cough: Productive Sputum amount: Small Sputum color: Yellow Sputum consistency: Mucoid EMS treatments: Bronchodilators, Solumedrol Associated symptoms: Congestion, Cough, Fever, Short of breath, Wheezing Similar symptoms previously: Yes Recently seen / treated by doctor: No Notes: Patient is a 65-year-old female with a history of COPD who presents to the emergency room complaining of cough, cold, congestion this started yesterday and worsen throughout the day today, she reports her cough is productive of yellowish colored phlegm, she is noted to have a fever 101.3 via EMS, they did provide her with albuterol nebulizer treatments and IV Solu-Medrol in route, patient did arrive in moderate to severe respiratory distress, requiring immediate BiPAP placement - Related Data Allergies/Adverse Reactions: codeine [Codeine] Adverse Reaction (Unknown, Verified 05/17/16 20:17) Past Medical History - General Information source: Patient - Social History Smoking Status: Former Smoker Family History: Hypertension, Other - Alzheimer's, renal failure - Past Medical History Cardiac Medical History: Reports: Hx Coronary Artery Disease, Hx Hypercholesterolemia, Hx Hypertension, Hx Peripheral Vascular Disease Denies: Hx Heart Murmur Pulmonary Medical History: Reports: Hx Asthma, Hx Bronchitis, Hx COPD, Hx Respiratory Failure, Hx Sleep Apnea Denies: Hx Tuberculosis Neurological Medical History: Reports: Hx Migraine. Denies: Hx Seizures Endocrine Medical History: Reports: Hx Diabetes Mellitus Type 1, Hx Diabetes Mellitus Type 2 Renal/ Medical History: Reports: Hx Ovarian Cysts Malignancy Medical History: GI Medical History: Reports: Hx Gastritis, Hx Ulcer Musculoskeltal Medical History: Reports Hx Arthritis, Reports Hx Fibromyalgia, Reports Hx Musculoskeletal Deformity, Reports Hx Musculoskeletal Trauma Psychiatric Medical History: Reports: Hx Anxiety, Hx Depression Denies: Hx Attention Deficit Hyperactivity Disorder Traumatic Medical History: Reports: Hx Fractures - pinkie finger Infectious Medical History: Reports: Hx C-Diff, Hx MRSA Past Surgical History: Reports: Hx Appendectomy, Hx Cardiac Catheterization, Hx Cholecystectomy, Hx Coronary Stent, Hx Hysterectomy, Hx Orthopedic Surgery - right shoulder, Hx Tubal Ligation, Hx Vascular Surgery - Immunizations Immunizations up to date: Yes Hx Diphtheria, Pertussis, Tetanus Vaccination: Yes Hx Pneumococcal Vaccination: 02/17/10 Review of Systems - Review of Systems Constitutional: No symptoms reported EENT: No symptoms reported Cardiovascular: No symptoms reported Respiratory: See HPI Gastrointestinal: No symptoms reported Genitourinary: No symptoms reported Female Genitourinary: No symptoms reported Musculoskeletal: No symptoms reported Skin: No symptoms reported Hematologic/Lymphatic: No symptoms reported Neurological/Psychological: No symptoms reported -: Yes All other systems reviewed and negative Physical Exam - Vital signs Vitals: Temp 97.8 F 06/13/16 20:29 Interpretation: Tachycardic, Hypoxic, Tachypneic, Febrile - General General appearance: Alert In distress: Moderate - HEENT Head: Normocephalic, Atraumatic Eyes: Normal Conjunctiva: Normal Extraocular movements intact: Yes Eyelashes: Normal Pupils: PERRL Pharynx: Normal Neck: Normal - Respiratory Respiratory status: Respiratory distress, Labored, Tachypnea Chest status: Nontender Breath sounds: Decreased air movement, Productive cough, Wheezing Chest palpation: Normal - Cardiovascular Rhythm: Regular, Tachycardia Heart sounds: Normal auscultation - Abdominal Inspection: Normal, Obese Distension: No distension Bowel sounds: Normal Tenderness: Nontender Organomegaly: No organomegaly - Back Back: Normal - Extremities General upper extremity: Normal inspection General lower extremity: Normal inspection, Edema - Neurological Neuro grossly intact: Yes Cognition: Normal Orientation: AAOx4 B[place] Coma Scale Eye Opening: Spontaneous [place] Coma Scale Verbal: Oriented [place] Coma Scale Motor: Obeys Commands Bricelyn Coma Scale Total: 15 Speech: Normal - Psychological Associated symptoms: Normal affect, Normal mood - Skin Skin Temperature: Warm Skin Moisture: Dry Skin Color: Normal Course - Re-evaluation Re-evalutation: 06/14/16 03:19 Patient doing much better and tolerating BiPAP, discussed with primary care provider who agrees to admit for further evaluation and treatment - Vital Signs Vital signs: Temp Pulse Resp BP Pulse Ox 101.2 F H 17 106/55 L 92 06/14/16 00:15 06/14/16 03:01 06/14/16 03:01 06/14/16 03:01 - Laboratory Result Diagrams: 06/13/16 21:25 06/13/16 22:40 Laboratory results interpreted by me: 06/13/16 06/13/16 06/13/16 21:25 21:25 21:25 WBC 13.5 H Hgb 11.7 L MCHC 31.3 L RDW 14.2 H Seg Neutrophils % 86.1 H Lymphocytes % 8.6 L Absolute Neutrophils 11.6 H VBG pH 7.25 L VBG pCO2 81.1 H* VBG HCO3 34.7 H Glucose NT-Pro-B Natriuret Pep 2210 H 06/13/16 22:40 WBC Hgb MCHC RDW Seg Neutrophils % Lymphocytes % Absolute Neutrophils VBG pH VBG pCO2 VBG HCO3 Glucose 274 H NT-Pro-B Natriuret Pep - Diagnostic Test Radiology reviewed: Image reviewed, Reports reviewed - EKG Interpretation by Me EKG shows normal: Sinus rhythm Rate: Tachycardia Nixon/QRS: LBBB When compared to previous EKG there are: No significant change - Transfer of Care Care transferred to following provider: Dr. Jackson Critical Care Note - Critical Care Note Total time excluding time spent on procedures (mins): 60 Comments: Patient arrived in moderate to severe respiratory distress secondary to COPD exacerbation, requiring breathing treatments, close observation, BiPAP placement and admission Discharge - Discharge Clinical Impression: Chronic obstructive asthma (with obstructive pulmonary disease), Acute chronic obstructive pulmonary disease with respiratory distress Condition: Serious Disposition: ADMITTED INPATIENT Admitting Provider: Renetta Unit Admitted: [facility]
[2016-06-13 21:54] LABS: ABSOLUTE EOSINOPHILS # (AUTO) 0.1 10^3/uL (0.0-0.6); ABSOLUTE LYMPHOCYTES (AUTO) 1.2 10^3/uL (0.5-4.7); ABSOLUTE MONOCYTES (AUTO) 0.6 10^3/uL (0.1-1.4); ABSOLUTE NEUT (AUTO) 11.6 10^3/uL (1.7-8.2); BASOPHILS % (AUTO) 0.2 % (0-2); HEMATOCRIT 37.4 % (36.0-47.0); HEMOGLOBIN 11.7 g/dL (12.0-15.5); HGB HCT DIFFERENCE -2.3; LYMPHOCYTES % (AUTO) 8.6 % (13-45); MEAN CORPUSCULAR HEMOGLOBIN 29.4 pg (27.0-33.4); MEAN CORPUSCULAR HGB CONC 31.3 g/dL (32.0-36.0); MEAN CORPUSCULAR VOLUME 94 fl (80-97); MONOCYTES % (AUTO) 4.1 % (3-13); RED BLOOD COUNT 3.99 10^6/uL (3.72-5.28); RED CELL DISTRIBUTION WIDTH 14.2 % (11.5-14.0); SEGMENTED NEUTROPHILS % (AUTO) 86.1 % (42-78); VENOUS BLOOD BASE EXCESS 4.8 mmol/L; VENOUS BLOOD HCO3 34.7 mmol/L (20-32); VENOUS BLOOD PH 7.25 (7.30-7.42); WHITE BLOOD COUNT 13.5 10^3/uL (4.0-10.5)
[2016-06-13 21:56] LABS: VENOUS BLOOD PCO2 81.1 mmHg (35-63)
[2016-06-13] MEDS ORDERED: MORPHINE SULFATE 10 MG/ML INJ IV ONE (22:12)
[2016-06-13] MEDS ORDERED: IPRATROPIUM/ALBUTEROL 0.5-2.5 MG/3 ML AMPUL NEB ONE (22:34)
[2016-06-13] MEDS ORDERED: ALBUTEROL SULFATE 0.083% NEB 2.5 MG/3 ML AMPUL NEB ONE (22:34)
[2016-06-13] MEDS ORDERED: CEFTRIAXONE INJ 1000 MG VIAL IV ONE (22:34)
[2016-06-13 22:42] LABS: CREATINE KINASE MB 1.18 ng/mL (<4.55)
[2016-06-13 22:43] LABS: TROPONIN I < 0.012 ng/mL
[2016-06-13 23:16] LABS: ALANINE AMINOTRANSFERASE 16 U/L (9-52); ALBUMIN 3.8 g/dL (3.5-5.0); ALKALINE PHOSPHATASE 99 U/L (38-126); ANION GAP 14 (5-19); ASPARTATE AMINO TRANSFERASE 21 U/L (14-36); BILIRUBIN,DIRECT 0.3 mg/dL (0.0-0.4); BILIRUBIN,TOTAL 0.5 mg/dL (0.2-1.3); BLOOD UREA NITROGEN 16 mg/dL (7-20); CALCIUM 8.6 mg/dL (8.4-10.2); CARBON DIOXIDE 30 mmol/L (22-30); CHLORIDE 99 mmol/L (98-107); CREATINE KINASE 64 U/L (30-135); CREATININE RESULT 0.71 mg/dL (0.52-1.25); GLUCOSE 274 mg/dL (75-110); POTASSIUM 4.8 mmol/L (3.6-5.0); SODIUM 143.4 mmol/L (137-145); TOTAL PROTEIN 6.8 g/dL (6.3-8.2)
[2016-06-14] MEDS ORDERED: ACETAMINOPHEN 325 MG TABLET PO ONE (00:19)
[2016-06-14 00:33] LABS: APPEARANCE,URINE SLIGHTLY-CLOUDY; BILIRUBIN,URINE NEGATIVE (NEGATIVE); GLUCOSE, URINE 50 mg/dL (NEGATIVE); KETONES,URINE NEGATIVE (NEGATIVE); LEUKOCYTE ESTERASE,URINE NEGATIVE (NEGATIVE); NITRITE,URINE NEGATIVE (NEGATIVE); PROTEIN,URINE NEGATIVE (NEGATIVE); URINE SPECIFIC GRAVITY 1.021; UROBILINOGEN,URINE NEGATIVE mg/dL (<2.0)
[2016-06-14] MEDS: TRAMADOL HCL 50 MG TABLET PO PRN (03:57)
[2016-06-14] MEDS: IPRATROPIUM/ALBUTEROL 0.5-2.5 MG/3 ML AMPUL NEB SCH ×5 (04:20→21:21)
[2016-06-14] MEDS ORDERED: DEXTROSE 50%-WATER SYRINGE 25 GM/50 ML DOSE IV PRN (07:47)
[2016-06-14] MEDS ORDERED: DEXTROSE 40% GEL 15 GM TUBE X 2 PO PRN (07:47)
[2016-06-14] MEDS ORDERED: DEXTROSE 50%-WATER SYRINGE 12.5 GM/25 ML DOSE IV PRN (07:47)
[2016-06-14] MEDS ORDERED: GLUCAGON,HUMAN RECOMB 1 MG INJ IM PRN (07:47)
[2016-06-14] MEDS ORDERED: DEXTROSE 40% GEL 15 GM TUBE PO PRN (07:47)
--- NOTE | 2016-06-14 09:39 | EKG REPORT ---
SEVERITY:- ABNORMAL ECG - SINUS TACHYCARDIA PROBABLE LEFT ATRIAL ABNORMALITY LEFT BUNDLE BRANCH BLOCK : Confirmed by: Yoko Martinez 14-Jun-2016 09:38:54
[2016-06-14] MEDS: LEVOFLOXACIN 750 MG TABLET PO SCH (10:12)
[2016-06-14 10:14] LABS: CREATINE KINASE MB 8.53 ng/mL (<4.55)
[2016-06-14 10:16] LABS: TROPONIN I < 0.012 ng/mL
[2016-06-14] MEDS: INSULIN LISPRO 100 UNIT/ML 3 ML VIAL SUBCUT PRN ×3 (11:07→22:57)
[2016-06-14 15:53] LABS: CREATINE KINASE MB 8.59 ng/mL (<4.55)
[2016-06-14 16:04] LABS: TROPONIN I < 0.012 ng/mL
[2016-06-14] MEDS ORDERED: ALBUTEROL SULFATE HFA (90 MCG/PUFF) 8 GM MDI (1 MDI/ER DISP) IH PRN (19:42)
[2016-06-14] MEDS ORDERED: TRAMADOL HCL 50 MG TABLET PO PRN (19:42)
--- NOTE | 2016-06-14 20:36 | PDOC H&P ---
History of Present Illness Admission Date/PCP: 06/14/16 03:21 History of Present Illness: TORREY MARKS is a 65 year old female, with multiple comorbid conditions, multiple hospitalization, she came to the emergency room earlier this morning because of respiratory distress due to acute COPD exacerbation, she was treated with IV Solu-Medrol bronchodilators and noninvasive positive pressure ventilation, BiPAP machine she was also found to have a fever with temperature 101.3. Past Medical History Cardiac Medical History: Reports: Coronary Artery Disease, Hyperlipidema, Hypertension, Peripheral Vascular Disease Pulmonary Medical History: Reports: Asthma, Bronchitis, Chronic Obstructive Pulmonary Disease (COPD), Respiratory Failure, Sleep Apnea Neurological Medical History: Reports: Migraine Endocrine Medical History: Reports: Diabetes Mellitus Type 2 Renal/ Medical History: Malignancy Medical History: GI Medical History: Musculoskeltal Medical History: Reports: Arthritis, Fibromyalgia Psychiatric Medical History: Reports: Depression Infectious Medical History: Reports: Clostridium Difficile, Methicillin- Resistant Staph Aureus Past Surgical History Past Surgical History: Reports: Amputation, Appendectomy, Cardiac Catheterization, Cholecystectomy, Coronary Stent, Hysterectomy, Orthopedic Surgery - right shoulder, Tubal Ligation, Vascular Surgery Social History Smoking Status: Former Smoker Frequency of Alcohol Use: None Hx Recreational Drug Use: No Drugs: None Hx Prescription Drug Abuse: No - Advance Directive Resuscitation Status: Full Code Family History Family History: Hypertension, Other - Alzheimer's, renal failure Parental Family History Reviewed: Yes Children Family History Reviewed: Yes Sibling(s) Family History Reviewed.: Yes Medication/Allergy Home Medications: Aspirin [Ecotrin 81 mg EC Tablet] 81 mg PO DAILY 05/18/16 Atorvastatin Calcium [Lipitor 40 mg Tablet] 40 mg PO QHS 05/18/16 Clopidogrel Bisulfate [Plavix 75 mg Tablet] 75 mg PO DAILY 05/18/16 Duloxetine HCl [Cymbalta] 60 mg PO DAILY 05/18/16 Insulin Detemir [Levemir Flextouch] 15 units SQ QAM 05/18/16 Magnesium Oxide [Mag-Ox 400 mg Tablet] 400 mg PO DAILY 05/18/16 Melatonin 6 mg PO QHS 05/18/16 Metformin HCl [Metformin HCl ER] 500 mg PO WSUPPER 05/18/16 Pramipexole Di-HCl [Mirapex] 0.125 mg PO TID 05/18/16 Sacubitril/Valsartan [Entresto 24 mg-26 mg Tablet] 1 each PO Q12 05/18/16 Spironolactone [Aldactone 25 mg Tablet] 25 mg PO DAILY 05/18/16 Tramadol HCl [Ultram 50 mg Tablet] 50 mg PO Q6HP PRN 05/18/16 Albuterol Sulfate [Proair HFA] 2 puff IH Q4HP PRN 06/14/16 Ferrous Sulfate [Iron] 325 mg PO DAILY 06/14/16 Fluticasone/Salmeterol [Advair 250-50 Diskus 28 dose] 1 inh IH Q12 06/14/16 Gabapentin 900 mg PO TID 06/14/16 Metoprolol Tartrate 12.5 mg PO BID 06/14/16 Ondansetron HCl [Zofran 8 mg Tablet] 8 mg PO Q8HP PRN 06/14/16 Pioglitazone HCl [Actos] 45 mg PO DAILY 06/14/16 Tiotropium [place] [Spiriva [place] 18 mcg/dose (30 Dose)] 1 cap IH DAILY Allergies/Adverse Reactions: codeine [Codeine] Adverse Reaction (Unknown, Verified 05/17/16 20:17) Review of Systems Constitutional: ABSENT: chills, fever(s), headache(s), weight gain, weight loss Eyes: ABSENT: visual disturbances Ears: ABSENT: hearing changes Cardiovascular: ABSENT: chest pain, dyspnea on exertion, edema, orthropnea, palpitations Respiratory: PRESENT: as per HPI, dyspnea, sputum, other Gastrointestinal: ABSENT: abdominal pain, constipation, diarrhea, hematemesis, hematochezia, nausea, vomiting Genitourinary: ABSENT: dysuria, hematuria Musculoskeletal: ABSENT: joint swelling Integumentary: ABSENT: rash, wounds Neurological: ABSENT: abnormal gait, abnormal speech, confusion, dizziness, focal weakness, syncope Psychiatric: ABSENT: anxiety, depression, homidical ideation, suicidal ideation Endocrine: ABSENT: cold intolerance, heat intolerance, menstrual abnormalities, polydipsia, polyuria Hematologic/Lymphatic: ABSENT: easy bleeding, easy bruising, lymphadenopathy Physical Exam Vital Signs: Temp Pulse Resp BP Pulse Ox 98.5 F 92 16 125/48 L 98 06/14/16 16:40 06/14/16 16:40 06/14/16 16:40 06/14/16 16:40 06/14/16 16:40 Intake & Output 06/13/16 06/14/16 06/15/16 06:59 06:59 06:59 Intake Total 0 243 Output Total 846 Balance 0 -603 Weight 115 kg General appearance: PRESENT: severe distress Eye exam: PRESENT: PERRLA. ABSENT: scleral icterus Neck exam: PRESENT: full ROM Respiratory exam: PRESENT: accessory muscle use, wheezes Cardiovascular exam: PRESENT: RRR, +S1, +S2 Vascular exam: PRESENT: normal capillary refill GI/Abdominal exam: PRESENT: normal bowel sounds, soft Rectal exam: PRESENT: deferred Neurological exam: PRESENT: alert, awake, oriented to person, oriented to place , oriented to time, oriented to situation, CN II-XII grossly intact Psychiatric exam: PRESENT: appropriate affect, normal mood Skin exam: PRESENT: dry, intact, warm Results Laboratory Results: 06/14/16 06/14/16 06/14/16 09:09 09:09 14:55 Creatine Kinase 1498 H 1404 H CK-MB (CK-2) 8.53 H Troponin I < 0.012 06/14/16 14:55 Creatine Kinase CK-MB (CK-2) 8.59 H Troponin I < 0.012 Impressions: Chest X-Ray 06/13/16 20:50 IMPRESSION: NO ACUTE RADIOGRAPHIC FINDING IN THE CHEST. Assessment & Plan - Diagnosis (1) Acute hypercapnic respiratory failure Is this a current diagnosis for this admission?: YesPlan: She will continue noninvasive positive pressure ventilation with BiPAP (2) Coronary artery disease Qualifiers: Coronary Disease-Associated Artery/Lesion type: [place] artery [place] vs. transplanted heart: [place] heart Associated angina: without angina Qualified Code(s): I25.10 - Atherosclerotic heart disease of [place] coronary artery without angina pectoris (3) Diabetes mellitus Qualifiers: Diabetes mellitus type: type 2 Diabetes mellitus complication status: with neurologic complications Diabetes mellitus complication detail: with polyneuropathy Is this a current diagnosis for this admission?: Yes (4) Acute exacerbation of chronic obstructive pulmonary disease (COPD) Is this a current diagnosis for this admission?: YesPlan: Start Solu-Medrol, IV antibiotic, and bronchodilators
[2016-06-14] MEDS ORDERED: ALBUTEROL SULFATE HFA (90 MCG/PUFF) 200 PUFF/8.5 GM MDI IH PRN (20:44)
[2016-06-14 21:29] LABS: CREATINE KINASE MB 9.43 ng/mL (<4.55)
[2016-06-14 21:36] LABS: TROPONIN I 0.135 ng/mL
[2016-06-14] MEDS ORDERED: MELATONIN 6 MG PO SCH (22:00)
[2016-06-14] MEDS: PRAMIPEXOLE DI-HCL 0.25 MG TABLET PO SCH (22:08)
[2016-06-14] MEDS: METOPROLOL TARTRATE 25 MG TABLET PO SCH (22:08)
[2016-06-14] MEDS: SACUBITRIL/VALSARTAN 24 MG/26 MG TABLET PO SCH (22:08)
[2016-06-14] MEDS: GABAPENTIN 300 MG CAPSULE PO SCH (22:08)
[2016-06-14] MEDS: CEFTRIAXONE 2 GM/D5W RTU 2 GM/50 ML RTUPB IV SCH (22:09)
[2016-06-14] MEDS: FLUTICASONE/SALMETEROL DISKUS 250-50 MCG/DOSE IH SCH (22:09)
[2016-06-14] MEDS: METHYLPREDNISOLONE INJ 125 MG/2 ML SDV IV SCH (22:09)
[2016-06-14] MEDS: ATORVASTATIN CALCIUM 40 MG TABLET PO SCH (22:09)
[2016-06-15] MEDS: IPRATROPIUM/ALBUTEROL 0.5-2.5 MG/3 ML AMPUL NEB SCH ×6 (00:22→19:53)
[2016-06-15] MEDS: PRAMIPEXOLE DI-HCL 0.25 MG TABLET PO SCH ×3 (05:39→21:45)
[2016-06-15] MEDS: METHYLPREDNISOLONE INJ 125 MG/2 ML SDV IV SCH ×3 (05:40→21:47)
[2016-06-15] MEDS: TRAMADOL HCL 50 MG TABLET PO PRN ×2 (05:40→12:07)
[2016-06-15] MEDS: ONDANSETRON HCL 8 MG TABLET PO PRN ×2 (05:40→12:07)
[2016-06-15] MEDS: GABAPENTIN 300 MG CAPSULE PO SCH ×3 (05:40→21:46)
[2016-06-15] MEDS: INSULIN LISPRO 100 UNIT/ML 3 ML VIAL SUBCUT PRN ×4 (07:47→22:12)
[2016-06-15] MEDS: INSULIN DETEMIR 100 UNIT/ML 3 ML PEN SUBCUT SCH (07:47)
[2016-06-15] MEDS: METFORMIN HCL 500 MG TABLET PO SCH ×2 (07:53→16:15)
[2016-06-15] MEDS: DULOXETINE HCL 30 MG CAPSULE.DR PO SCH (09:24)
[2016-06-15] MEDS: PIOGLITAZONE HCL 15 MG TABLET PO SCH (09:24)
[2016-06-15] MEDS: CLOPIDOGREL BISULFATE 75 MG TABLET PO SCH (09:25)
[2016-06-15] MEDS: SPIRONOLACTONE 25 MG TABLET PO SCH (09:25)
[2016-06-15] MEDS: METOPROLOL TARTRATE 25 MG TABLET PO SCH ×2 (09:25→21:45)
[2016-06-15] MEDS: MAGNESIUM OXIDE 400 MG TABLET PO SCH (09:26)
[2016-06-15] MEDS: LEVOFLOXACIN 750 MG TABLET PO SCH (09:26)
[2016-06-15] MEDS: ASPIRIN 81 MG TABLET, ENT COATED PO SCH (09:26)
[2016-06-15] MEDS: FERROUS SULFATE 325 MG TABLET PO SCH (09:26)
[2016-06-15] MEDS: FLUTICASONE/SALMETEROL DISKUS 250-50 MCG/DOSE IH SCH ×2 (09:28→21:47)
[2016-06-15] MEDS: TIOTROPIUM BROMIDE DPI 5 CAP/KIT (18 MCG/CAP) IH SCH (09:28)
[2016-06-15] MEDS: SACUBITRIL/VALSARTAN 24 MG/26 MG TABLET PO SCH ×2 (09:28→21:47)
[2016-06-15] MEDS ORDERED: (PENDING PHARMACY ID) (Pioglitazone Hcl [Actos] 45 MG) PO SCH (10:00)
[2016-06-15] MEDS ORDERED: (PENDING PHARMACY ID) (Pramipexole Di-Hcl [Mirapex] 0.125 MG) PO SCH (10:00)
[2016-06-15] MEDS ORDERED: (PENDING PHARMACY ID) (Metformin Hcl [Metformin Hcl Er] 500 MG) PO SCH (17:00)
--- NOTE | 2016-06-15 17:00 | PDOC PROGRESS REPORT ---
Subjective Progress Note for:: 06/15/16 Subjective:: Patient was admitted yesterday because of acute COPD exacerbation, she had an elevated troponin last night probably related to the COPD. She continues to require noninvasive positive pressure ventilation with BiPAP Physical Exam Vital Signs: Temp Pulse Resp BP Pulse Ox 98.4 F 100 22 H 104/65 96 06/15/16 16:05 06/15/16 16:05 06/15/16 16:05 06/15/16 16:05 06/15/16 16:05 Intake & Output 06/14/16 06/15/16 06/16/16 06:59 06:59 06:59 Intake Total 0 803 1100 Output Total 846 300 Balance 0 -43 800 Weight 115 kg 115.4 kg General appearance: PRESENT: mild distress Eye exam: PRESENT: PERRLA Respiratory exam: PRESENT: wheezes Cardiovascular exam: PRESENT: +S1, +S2 GI/Abdominal exam: PRESENT: soft Neurological exam: PRESENT: alert, CN II-XII grossly intact Results Laboratory Results: 06/14/16 06/14/16 06/14/16 09:09 09:09 14:55 Creatine Kinase 1498 H 1404 H CK-MB (CK-2) 8.53 H Troponin I < 0.012 06/14/16 06/14/16 06/14/16 14:55 20:50 20:50 Creatine Kinase 1471 H CK-MB (CK-2) 8.59 H 9.43 H Troponin I < 0.012 0.135 Impressions: Chest X-Ray 06/13/16 20:50 IMPRESSION: NO ACUTE RADIOGRAPHIC FINDING IN THE CHEST. Assessment & Plan - Diagnosis (1) Acute hypercapnic respiratory failure Is this a current diagnosis for this admission?: YesPlan: Continue noninvasive positive pressure ventilation with BiPAP (2) Coronary artery disease Qualifiers: Coronary Disease-Associated Artery/Lesion type: [place] artery [place] vs. transplanted heart: [place] heart Associated angina: without angina Qualified Code(s): I25.10 - Atherosclerotic heart disease of [place] coronary artery without angina pectoris (3) Diabetes mellitus Qualifiers: Diabetes mellitus type: type 2 Diabetes mellitus complication status: with neurologic complications Diabetes mellitus complication detail: with polyneuropathy Is this a current diagnosis for this admission?: Yes (4) Acute exacerbation of chronic obstructive pulmonary disease (COPD) Is this a current diagnosis for this admission?: YesPlan: Continue IV Solu-Medrol (5) Elevated troponin Is this a current diagnosis for this admission?: YesPlan: This is most likely related to the hypercapnia/hypoxemia from COPD exacerbation
[2016-06-15] MEDS: ATORVASTATIN CALCIUM 40 MG TABLET PO SCH (21:47)
[2016-06-15] MEDS: CEFTRIAXONE 2 GM/D5W RTU 2 GM/50 ML RTUPB IV SCH (21:47)
[2016-06-15] MEDS: ZOLPIDEM TARTRATE 5 MG TABLET PO PRN (22:12)
[2016-06-16] MEDS: IPRATROPIUM/ALBUTEROL 0.5-2.5 MG/3 ML AMPUL NEB SCH ×6 (00:02→19:30)
[2016-06-16] MEDS: TRAMADOL HCL 50 MG TABLET PO PRN ×2 (01:30→23:10)
[2016-06-16] MEDS: GABAPENTIN 300 MG CAPSULE PO SCH ×3 (06:30→22:12)
[2016-06-16] MEDS: PRAMIPEXOLE DI-HCL 0.25 MG TABLET PO SCH ×3 (06:30→22:13)
[2016-06-16] MEDS: ONDANSETRON HCL 8 MG TABLET PO PRN (06:30)
[2016-06-16] MEDS: METHYLPREDNISOLONE INJ 125 MG/2 ML SDV IV SCH ×3 (06:30→22:12)
[2016-06-16] MEDS: INSULIN DETEMIR 100 UNIT/ML 3 ML PEN SUBCUT SCH (07:57)
[2016-06-16] MEDS: INSULIN LISPRO 100 UNIT/ML 3 ML VIAL SUBCUT PRN ×4 (07:58→22:35)
[2016-06-16] MEDS: METFORMIN HCL 500 MG TABLET PO SCH ×2 (07:59→16:09)
[2016-06-16] MEDS: DULOXETINE HCL 30 MG CAPSULE.DR PO SCH (09:24)
[2016-06-16] MEDS: LEVOFLOXACIN 750 MG TABLET PO SCH (09:25)
[2016-06-16] MEDS: FERROUS SULFATE 325 MG TABLET PO SCH (09:25)
[2016-06-16] MEDS: ASPIRIN 81 MG TABLET, ENT COATED PO SCH (09:25)
[2016-06-16] MEDS: MAGNESIUM OXIDE 400 MG TABLET PO SCH (09:25)
[2016-06-16] MEDS: CLOPIDOGREL BISULFATE 75 MG TABLET PO SCH (09:25)
[2016-06-16] MEDS: SPIRONOLACTONE 25 MG TABLET PO SCH (09:25)
[2016-06-16] MEDS: PIOGLITAZONE HCL 15 MG TABLET PO SCH (09:26)
[2016-06-16] MEDS: METOPROLOL TARTRATE 25 MG TABLET PO SCH ×2 (09:26→22:13)
[2016-06-16] MEDS: TIOTROPIUM BROMIDE DPI 5 CAP/KIT (18 MCG/CAP) IH SCH (09:27)
[2016-06-16] MEDS: FLUTICASONE/SALMETEROL DISKUS 250-50 MCG/DOSE IH SCH ×2 (09:27→22:12)
[2016-06-16] MEDS: SACUBITRIL/VALSARTAN 24 MG/26 MG TABLET PO SCH ×2 (09:28→22:13)
--- NOTE | 2016-06-16 18:03 | PDOC PROGRESS REPORT ---
Subjective Progress Note for:: 06/16/16 Subjective:: Patient seen by the bedside, she was admitted because of acute COPD exacerbation Physical Exam Vital Signs: Temp Pulse Resp BP Pulse Ox 98.7 F 90 18 103/45 L 94 06/16/16 15:15 06/16/16 16:19 06/16/16 16:19 06/16/16 15:15 06/16/16 16:19 Intake & Output 06/15/16 06/16/16 06/17/16 06:59 06:59 06:59 Intake Total 803 4112 493 Output Total 846 300 500 Balance -43 3812 -7 Weight 115.4 kg 116.5 kg General appearance: PRESENT: no acute distress, well-developed, well-nourished Head exam: PRESENT: atraumatic, normocephalic Eye exam: PRESENT: conjunctiva pink, EOMI, PERRLA. ABSENT: scleral icterus Ear exam: PRESENT: normal external ear exam Mouth exam: PRESENT: moist, tongue midline Neck exam: PRESENT: full ROM Respiratory exam: PRESENT: wheezes Cardiovascular exam: PRESENT: RRR, +S1, +S2 Pulses: PRESENT: normal dorsalis pedis pul, +2 pedal pulses bilateral Vascular exam: PRESENT: normal capillary refill GI/Abdominal exam: PRESENT: normal bowel sounds, soft Rectal exam: PRESENT: deferred Neurological exam: PRESENT: alert, awake, oriented to person, oriented to place , oriented to time, oriented to situation, CN II-XII grossly intact. ABSENT: motor sensory deficit Psychiatric exam: PRESENT: appropriate affect, normal mood. ABSENT: homicidal ideation, suicidal ideation Skin exam: PRESENT: dry, intact, warm. ABSENT: cyanosis, rash Results Laboratory Results: 06/14/16 06/14/16 06/14/16 09:09 09:09 14:55 Creatine Kinase 1498 H 1404 H CK-MB (CK-2) 8.53 H Troponin I < 0.012 06/14/16 06/14/16 06/14/16 14:55 20:50 20:50 Creatine Kinase 1471 H CK-MB (CK-2) 8.59 H 9.43 H Troponin I < 0.012 0.135 Impressions: Chest X-Ray 06/13/16 20:50 IMPRESSION: NO ACUTE RADIOGRAPHIC FINDING IN THE CHEST. Assessment & Plan - Diagnosis (1) Acute hypercapnic respiratory failure Is this a current diagnosis for this admission?: Yes (2) Coronary artery disease Qualifiers: Coronary Disease-Associated Artery/Lesion type: [place] artery [place] vs. transplanted heart: [place] heart Associated angina: without angina Qualified Code(s): I25.10 - Atherosclerotic heart disease of [place] coronary artery without angina pectoris (3) Diabetes mellitus Qualifiers: Diabetes mellitus type: type 2 Diabetes mellitus complication status: with neurologic complications Diabetes mellitus complication detail: with polyneuropathy Is this a current diagnosis for this admission?: Yes (4) Acute exacerbation of chronic obstructive pulmonary disease (COPD) Is this a current diagnosis for this admission?: Yes (5) Elevated troponin Is this a current diagnosis for this admission?: Yes - Plan Summary Plan Summary: She slept well last night with Markel, we will continue present treatment with Solu-Medrol, bronchodilators
[2016-06-16] MEDS: ATORVASTATIN CALCIUM 40 MG TABLET PO SCH (22:13)
[2016-06-16] MEDS: CEFTRIAXONE 2 GM/D5W RTU 2 GM/50 ML RTUPB IV SCH (22:14)
[2016-06-16] MEDS: ZOLPIDEM TARTRATE 5 MG TABLET PO PRN (22:35)
[2016-06-17] MEDS: IPRATROPIUM/ALBUTEROL 0.5-2.5 MG/3 ML AMPUL NEB SCH ×6 (00:05→21:04)
[2016-06-17] MEDS: PRAMIPEXOLE DI-HCL 0.25 MG TABLET PO SCH ×3 (06:13→21:36)
[2016-06-17] MEDS: METHYLPREDNISOLONE INJ 125 MG/2 ML SDV IV SCH ×3 (06:13→21:38)
[2016-06-17] MEDS: GABAPENTIN 300 MG CAPSULE PO SCH ×3 (06:14→21:38)
[2016-06-17] MEDS: TRAMADOL HCL 50 MG TABLET PO PRN ×2 (06:33→21:48)
[2016-06-17] MEDS: ONDANSETRON HCL 8 MG TABLET PO PRN (06:34)
[2016-06-17] MEDS: INSULIN LISPRO 100 UNIT/ML 3 ML VIAL SUBCUT PRN ×3 (08:43→18:03)
[2016-06-17] MEDS: METFORMIN HCL 500 MG TABLET PO SCH ×2 (08:48→18:06)
[2016-06-17] MEDS: INSULIN DETEMIR 100 UNIT/ML 3 ML PEN SUBCUT SCH (08:51)
[2016-06-17] MEDS: FLUTICASONE/SALMETEROL DISKUS 250-50 MCG/DOSE IH SCH ×2 (10:47→21:38)
[2016-06-17] MEDS: ASPIRIN 81 MG TABLET, ENT COATED PO SCH (10:47)
[2016-06-17] MEDS: TIOTROPIUM BROMIDE DPI 5 CAP/KIT (18 MCG/CAP) IH SCH (10:47)
[2016-06-17] MEDS: PIOGLITAZONE HCL 15 MG TABLET PO SCH (10:48)
[2016-06-17] MEDS: SACUBITRIL/VALSARTAN 24 MG/26 MG TABLET PO SCH ×2 (10:48→21:36)
[2016-06-17] MEDS: DULOXETINE HCL 30 MG CAPSULE.DR PO SCH (10:49)
[2016-06-17] MEDS: LEVOFLOXACIN 750 MG TABLET PO SCH (10:49)
[2016-06-17] MEDS: MAGNESIUM OXIDE 400 MG TABLET PO SCH (10:49)
[2016-06-17] MEDS: CLOPIDOGREL BISULFATE 75 MG TABLET PO SCH (10:49)
[2016-06-17] MEDS: FERROUS SULFATE 325 MG TABLET PO SCH (10:49)
[2016-06-17] MEDS: SPIRONOLACTONE 25 MG TABLET PO SCH (10:50)
[2016-06-17] MEDS: METOPROLOL TARTRATE 25 MG TABLET PO SCH ×2 (10:50→21:37)
--- NOTE | 2016-06-17 20:21 | PDOC PROGRESS REPORT ---
Subjective Progress Note for:: 06/17/16 Subjective:: Patient is seen by the bedside, she is still wheezing but she is improving Physical Exam Vital Signs: Temp Pulse Resp BP Pulse Ox 99.0 F 90 20 110/57 L 96 06/17/16 20:10 06/17/16 20:10 06/17/16 20:10 06/17/16 20:10 06/17/16 20:10 Intake & Output 06/16/16 06/17/16 06/18/16 06:59 06:59 06:59 Intake Total 4112 2412 459 Output Total 300 2100 600 Balance 3812 312 -141 Weight 116.5 kg 116.7 kg General appearance: PRESENT: no acute distress Eye exam: PRESENT: PERRLA Respiratory exam: PRESENT: wheezes Cardiovascular exam: PRESENT: +S1, +S2 GI/Abdominal exam: PRESENT: soft Neurological exam: PRESENT: alert Results Laboratory Results: 06/14/16 06/14/16 06/14/16 09:09 09:09 14:55 Creatine Kinase 1498 H 1404 H CK-MB (CK-2) 8.53 H Troponin I < 0.012 06/14/16 06/14/16 06/14/16 14:55 20:50 20:50 Creatine Kinase 1471 H CK-MB (CK-2) 8.59 H 9.43 H Troponin I < 0.012 0.135 Impressions: Chest X-Ray 06/13/16 20:50 IMPRESSION: NO ACUTE RADIOGRAPHIC FINDING IN THE CHEST. Assessment & Plan - Diagnosis (1) Acute hypercapnic respiratory failure Is this a current diagnosis for this admission?: Yes (2) Coronary artery disease Qualifiers: Coronary Disease-Associated Artery/Lesion type: [place] artery [place] vs. transplanted heart: [place] heart Associated angina: without angina Qualified Code(s): I25.10 - Atherosclerotic heart disease of [place] coronary artery without angina pectoris (3) Diabetes mellitus Qualifiers: Diabetes mellitus type: type 2 Diabetes mellitus complication status: with neurologic complications Diabetes mellitus complication detail: with polyneuropathy Is this a current diagnosis for this admission?: Yes (4) Acute exacerbation of chronic obstructive pulmonary disease (COPD) Is this a current diagnosis for this admission?: Yes (5) Elevated troponin Is this a current diagnosis for this admission?: Yes
[2016-06-17] MEDS: ATORVASTATIN CALCIUM 40 MG TABLET PO SCH (21:37)
[2016-06-17] MEDS: CEFTRIAXONE 2 GM/D5W RTU 2 GM/50 ML RTUPB IV SCH (21:38)
[2016-06-17] MEDS: ZOLPIDEM TARTRATE 5 MG TABLET PO PRN (21:48)
[2016-06-18] MEDS: IPRATROPIUM/ALBUTEROL 0.5-2.5 MG/3 ML AMPUL NEB SCH ×7 (00:15→23:49)
[2016-06-18] MEDS: GABAPENTIN 300 MG CAPSULE PO SCH ×3 (05:14→21:41)
[2016-06-18] MEDS: PRAMIPEXOLE DI-HCL 0.25 MG TABLET PO SCH ×3 (05:14→21:41)
[2016-06-18] MEDS: METHYLPREDNISOLONE INJ 125 MG/2 ML SDV IV SCH ×2 (05:15→13:35)
[2016-06-18] MEDS: TRAMADOL HCL 50 MG TABLET PO PRN ×3 (05:19→21:41)
[2016-06-18] MEDS: INSULIN DETEMIR 100 UNIT/ML 3 ML PEN SUBCUT SCH (08:17)
[2016-06-18] MEDS: INSULIN LISPRO 100 UNIT/ML 3 ML VIAL SUBCUT PRN ×5 (08:20→22:59)
[2016-06-18] MEDS: METFORMIN HCL 500 MG TABLET PO SCH ×2 (10:56→15:42)
[2016-06-18] MEDS: FLUTICASONE/SALMETEROL DISKUS 250-50 MCG/DOSE IH SCH ×2 (11:00→21:43)
[2016-06-18] MEDS: SACUBITRIL/VALSARTAN 24 MG/26 MG TABLET PO SCH ×2 (11:00→21:42)
[2016-06-18] MEDS: TIOTROPIUM BROMIDE DPI 5 CAP/KIT (18 MCG/CAP) IH SCH (11:00)
[2016-06-18] MEDS: CLOPIDOGREL BISULFATE 75 MG TABLET PO SCH (11:01)
[2016-06-18] MEDS: PIOGLITAZONE HCL 15 MG TABLET PO SCH (11:01)
[2016-06-18] MEDS: DULOXETINE HCL 30 MG CAPSULE.DR PO SCH (11:01)
[2016-06-18] MEDS: METOPROLOL TARTRATE 25 MG TABLET PO SCH ×2 (11:02→21:42)
[2016-06-18] MEDS: FERROUS SULFATE 325 MG TABLET PO SCH (11:02)
[2016-06-18] MEDS: MAGNESIUM OXIDE 400 MG TABLET PO SCH (11:02)
[2016-06-18] MEDS: SPIRONOLACTONE 25 MG TABLET PO SCH (11:03)
[2016-06-18] MEDS: LEVOFLOXACIN 750 MG TABLET PO SCH (11:04)
[2016-06-18] MEDS: ASPIRIN 81 MG TABLET, ENT COATED PO SCH (11:04)
[2016-06-18] MEDS: ONDANSETRON HCL 8 MG TABLET PO PRN (13:40)
--- NOTE | 2016-06-18 20:34 | PDOC PROGRESS REPORT ---
Subjective Progress Note for:: 06/18/16 Subjective:: Patient seen by the bedside improving with treatment Physical Exam Vital Signs: Temp Pulse Resp BP Pulse Ox 98.4 F 103 H 20 119/53 L 94 06/18/16 16:20 06/18/16 19:00 06/18/16 16:20 06/18/16 16:20 06/18/16 16:20 Intake & Output 06/17/16 06/18/16 06/19/16 06:59 06:59 06:59 Intake Total 2412 749 684 Output Total 2100 600 Balance 312 149 684 Weight 116.7 kg 118.3 kg General appearance: PRESENT: no acute distress Eye exam: PRESENT: PERRLA Respiratory exam: PRESENT: clear to auscultation rolf Cardiovascular exam: PRESENT: +S1, +S2 GI/Abdominal exam: PRESENT: soft Results Laboratory Results: 06/14/16 06/14/16 06/14/16 09:09 09:09 14:55 Creatine Kinase 1498 H 1404 H CK-MB (CK-2) 8.53 H Troponin I < 0.012 06/14/16 06/14/16 06/14/16 14:55 20:50 20:50 Creatine Kinase 1471 H CK-MB (CK-2) 8.59 H 9.43 H Troponin I < 0.012 0.135 Impressions: Chest X-Ray 06/13/16 20:50 IMPRESSION: NO ACUTE RADIOGRAPHIC FINDING IN THE CHEST. Assessment & Plan - Diagnosis (1) Acute hypercapnic respiratory failure Is this a current diagnosis for this admission?: Yes (2) Coronary artery disease Qualifiers: Coronary Disease-Associated Artery/Lesion type: [place] artery [place] vs. transplanted heart: [place] heart Associated angina: without angina Qualified Code(s): I25.10 - Atherosclerotic heart disease of [place] coronary artery without angina pectoris (3) Diabetes mellitus Qualifiers: Diabetes mellitus type: type 2 Diabetes mellitus complication status: with neurologic complications Diabetes mellitus complication detail: with polyneuropathy Is this a current diagnosis for this admission?: Yes (4) Acute exacerbation of chronic obstructive pulmonary disease (COPD) Is this a current diagnosis for this admission?: Yes (5) Elevated troponin Is this a current diagnosis for this admission?: Yes
[2016-06-18] MEDS ORDERED: METHYLPREDNISOLONE INJ 125 MG/2 ML SDV IV SCH (20:35)
[2016-06-18] MEDS: ZOLPIDEM TARTRATE 5 MG TABLET PO PRN (21:41)
[2016-06-18] MEDS: CEFTRIAXONE 2 GM/D5W RTU 2 GM/50 ML RTUPB IV SCH (21:42)
[2016-06-18] MEDS: ATORVASTATIN CALCIUM 40 MG TABLET PO SCH (21:42)
[2016-06-18] MEDS: METHYLPREDNISOLONE INJ 40 MG/1 ML SDV IV SCH (21:43)
[2016-06-19] MEDS: IPRATROPIUM/ALBUTEROL 0.5-2.5 MG/3 ML AMPUL NEB SCH ×6 (04:18→23:56)
[2016-06-19] MEDS: PRAMIPEXOLE DI-HCL 0.25 MG TABLET PO SCH ×3 (05:49→21:43)
[2016-06-19] MEDS: GABAPENTIN 300 MG CAPSULE PO SCH ×3 (05:49→21:40)
[2016-06-19] MEDS: METHYLPREDNISOLONE INJ 40 MG/1 ML SDV IV SCH ×3 (05:50→21:41)
[2016-06-19] MEDS: TRAMADOL HCL 50 MG TABLET PO PRN ×2 (05:50→18:05)
[2016-06-19] MEDS: INSULIN LISPRO 100 UNIT/ML 3 ML VIAL SUBCUT PRN ×3 (08:28→18:04)
[2016-06-19] MEDS: METFORMIN HCL 500 MG TABLET PO SCH ×2 (08:31→18:05)
[2016-06-19] MEDS: INSULIN DETEMIR 100 UNIT/ML 3 ML PEN SUBCUT SCH (08:36)
[2016-06-19] MEDS: FLUTICASONE/SALMETEROL DISKUS 250-50 MCG/DOSE IH SCH ×2 (10:29→21:43)
[2016-06-19] MEDS: METOPROLOL TARTRATE 25 MG TABLET PO SCH ×2 (10:30→21:44)
[2016-06-19] MEDS: SACUBITRIL/VALSARTAN 24 MG/26 MG TABLET PO SCH ×2 (10:30→21:43)
[2016-06-19] MEDS: TIOTROPIUM BROMIDE DPI 5 CAP/KIT (18 MCG/CAP) IH SCH (10:30)
[2016-06-19] MEDS: LEVOFLOXACIN 750 MG TABLET PO SCH (10:31)
[2016-06-19] MEDS: SPIRONOLACTONE 25 MG TABLET PO SCH (10:31)
[2016-06-19] MEDS: CLOPIDOGREL BISULFATE 75 MG TABLET PO SCH (10:31)
[2016-06-19] MEDS: PIOGLITAZONE HCL 15 MG TABLET PO SCH (10:32)
[2016-06-19] MEDS: DULOXETINE HCL 30 MG CAPSULE.DR PO SCH (10:32)
[2016-06-19] MEDS: FERROUS SULFATE 325 MG TABLET PO SCH (10:33)
[2016-06-19] MEDS: MAGNESIUM OXIDE 400 MG TABLET PO SCH (10:33)
[2016-06-19] MEDS: ASPIRIN 81 MG TABLET, ENT COATED PO SCH (10:34)
--- NOTE | 2016-06-19 15:37 | PDOC PROGRESS REPORT ---
Subjective Progress Note for:: 06/19/16 Subjective:: She has E. coli UTI, sensitive to ceftriaxone resistant to Levaquin. She was admitted because of acute COPD exacerbation Physical Exam Vital Signs: Temp Pulse Resp BP Pulse Ox 98.6 F 95 20 95/48 L 96 06/19/16 11:25 06/19/16 12:00 06/19/16 12:00 06/19/16 11:25 06/19/16 12:00 Intake & Output 06/18/16 06/19/16 06/20/16 06:59 06:59 06:59 Intake Total 749 1384 459 Output Total 600 1300 Balance 149 84 459 Weight 118.3 kg 118.1 kg General appearance: PRESENT: no acute distress Eye exam: PRESENT: PERRLA Respiratory exam: PRESENT: rhonchi Cardiovascular exam: PRESENT: +S1, +S2 GI/Abdominal exam: PRESENT: soft Neurological exam: PRESENT: alert Results Laboratory Results: 06/14/16 06/14/16 06/14/16 09:09 09:09 14:55 Creatine Kinase 1498 H 1404 H CK-MB (CK-2) 8.53 H Troponin I < 0.012 06/14/16 06/14/16 06/14/16 14:55 20:50 20:50 Creatine Kinase 1471 H CK-MB (CK-2) 8.59 H 9.43 H Troponin I < 0.012 0.135 Impressions: Chest X-Ray 06/13/16 20:50 IMPRESSION: NO ACUTE RADIOGRAPHIC FINDING IN THE CHEST. Assessment & Plan - Diagnosis (1) Acute hypercapnic respiratory failure Is this a current diagnosis for this admission?: Yes (2) Coronary artery disease Qualifiers: Coronary Disease-Associated Artery/Lesion type: [place] artery [place] vs. transplanted heart: [place] heart Associated angina: without angina Qualified Code(s): I25.10 - Atherosclerotic heart disease of [place] coronary artery without angina pectoris (3) Diabetes mellitus Qualifiers: Diabetes mellitus type: type 2 Diabetes mellitus complication status: with neurologic complications Diabetes mellitus complication detail: with polyneuropathy Is this a current diagnosis for this admission?: Yes (4) Acute exacerbation of chronic obstructive pulmonary disease (COPD) Is this a current diagnosis for this admission?: Yes (5) Elevated troponin Is this a current diagnosis for this admission?: Yes (6) E. coli UTI Is this a current diagnosis for this admission?: Yes
[2016-06-19 16:02] LABS: HEMATOCRIT 34.4 % (36.0-47.0); HEMOGLOBIN 10.8 g/dL (12.0-15.5); MEAN CORPUSCULAR HEMOGLOBIN 29.1 pg (27.0-33.4); MEAN CORPUSCULAR HGB CONC 31.5 g/dL (32.0-36.0); MEAN CORPUSCULAR VOLUME 92 fl (80-97); RED BLOOD COUNT 3.72 10^6/uL (3.72-5.28); RED CELL DISTRIBUTION WIDTH 14.4 % (11.5-14.0); WHITE BLOOD COUNT 11.2 10^3/uL (4.0-10.5)
[2016-06-19 16:25] LABS: BAND NEUTROPHILS % (MANUAL) 1 % (3-5); BASOPHILS % (MANUAL) 0 % (0-2); EOSINOPHILS % (MANUAL) 0 % (0-6); LYMPHOCYTES % (MANUAL) 4 % (13-45); TOTAL CELLS COUNTED 100
[2016-06-19 16:27] LABS: ALANINE AMINOTRANSFERASE 34 U/L (9-52); ALBUMIN 3.1 g/dL (3.5-5.0); ALKALINE PHOSPHATASE 52 U/L (38-126); ANION GAP 11 (5-19); ANISOCYTOSIS SLIGHT; ASPARTATE AMINO TRANSFERASE 19 U/L (14-36); BILIRUBIN,DIRECT 0.4 mg/dL (0.0-0.4); BILIRUBIN,TOTAL 0.4 mg/dL (0.2-1.3); BLOOD UREA NITROGEN 45 mg/dL (7-20); CALCIUM 8.5 mg/dL (8.4-10.2); CARBON DIOXIDE 36 mmol/L (22-30); CHLORIDE 92 mmol/L (98-107); CREATININE RESULT 0.79 mg/dL (0.52-1.25); GLUCOSE 316 mg/dL (75-110); OVALOCYTES SLIGHT; PLATELET CLUMPS PRESENT; POIKILOCYTOSIS SLIGHT; POTASSIUM 4.5 mmol/L (3.6-5.0); SODIUM 138.9 mmol/L (137-145); TOTAL PROTEIN 5.8 g/dL (6.3-8.2)
[2016-06-19] MEDS: ONDANSETRON HCL 8 MG TABLET PO PRN (18:05)
[2016-06-19] MEDS: ATORVASTATIN CALCIUM 40 MG TABLET PO SCH (21:40)
[2016-06-19] MEDS: ZOLPIDEM TARTRATE 5 MG TABLET PO PRN (21:41)
[2016-06-19] MEDS: CEFTRIAXONE 2 GM/D5W RTU 2 GM/50 ML RTUPB IV SCH (21:42)
[2016-06-20] MEDS: TRAMADOL HCL 50 MG TABLET PO PRN ×3 (01:24→20:22)
[2016-06-20] MEDS: IPRATROPIUM/ALBUTEROL 0.5-2.5 MG/3 ML AMPUL NEB SCH ×6 (04:07→23:31)
[2016-06-20] MEDS: METHYLPREDNISOLONE INJ 40 MG/1 ML SDV IV SCH ×3 (05:29→23:26)
[2016-06-20] MEDS: PRAMIPEXOLE DI-HCL 0.25 MG TABLET PO SCH ×3 (05:29→23:24)
[2016-06-20] MEDS: GABAPENTIN 300 MG CAPSULE PO SCH ×3 (05:29→23:23)
[2016-06-20] MEDS: ONDANSETRON HCL 8 MG TABLET PO PRN (08:10)
[2016-06-20] MEDS: INSULIN LISPRO 100 UNIT/ML 3 ML VIAL SUBCUT PRN ×4 (08:12→23:25)
[2016-06-20] MEDS: INSULIN DETEMIR 100 UNIT/ML 3 ML PEN SUBCUT SCH (08:15)
[2016-06-20] MEDS: METFORMIN HCL 500 MG TABLET PO SCH ×2 (08:15→16:23)
[2016-06-20] MEDS: LEVOFLOXACIN 750 MG TABLET PO SCH (10:29)
[2016-06-20] MEDS: DULOXETINE HCL 30 MG CAPSULE.DR PO SCH (10:30)
[2016-06-20] MEDS: ASPIRIN 81 MG TABLET, ENT COATED PO SCH (10:30)
[2016-06-20] MEDS: PIOGLITAZONE HCL 15 MG TABLET PO SCH (10:30)
[2016-06-20] MEDS: CLOPIDOGREL BISULFATE 75 MG TABLET PO SCH (10:31)
[2016-06-20] MEDS: MAGNESIUM OXIDE 400 MG TABLET PO SCH (10:31)
[2016-06-20] MEDS: SPIRONOLACTONE 25 MG TABLET PO SCH (10:31)
[2016-06-20] MEDS: METOPROLOL TARTRATE 25 MG TABLET PO SCH (10:31)
[2016-06-20] MEDS: FLUTICASONE/SALMETEROL DISKUS 250-50 MCG/DOSE IH SCH ×2 (10:33→23:23)
[2016-06-20] MEDS: FERROUS SULFATE 325 MG TABLET PO SCH (10:33)
[2016-06-20] MEDS: TIOTROPIUM BROMIDE DPI 5 CAP/KIT (18 MCG/CAP) IH SCH (10:33)
[2016-06-20] MEDS: SACUBITRIL/VALSARTAN 24 MG/26 MG TABLET PO SCH ×2 (10:34→23:24)
--- NOTE | 2016-06-20 19:16 | PDOC PROGRESS REPORT ---
Subjective Progress Note for:: 06/20/16 Subjective:: Patient was seen by the bedside, clubbing or shortness of breath though she has less wheezing Physical Exam Vital Signs: Temp Pulse Resp BP Pulse Ox 99.3 F 98 22 H 134/60 H 96 06/20/16 11:30 06/20/16 16:00 06/20/16 16:00 06/20/16 11:30 06/20/16 16:00 Intake & Output 06/19/16 06/20/16 06/21/16 06:59 06:59 06:59 Intake Total 1384 1708 477 Output Total 1300 1550 1500 Balance 84 158 -1023 Weight 118.1 kg 119.1 kg General appearance: PRESENT: no acute distress Eye exam: PRESENT: PERRLA Respiratory exam: PRESENT: wheezes Cardiovascular exam: PRESENT: +S1, +S2 GI/Abdominal exam: PRESENT: soft Neurological exam: PRESENT: alert Results Laboratory Results: 06/19/16 15:55 06/19/16 15:55 06/14/16 06/14/16 06/14/16 09:09 09:09 14:55 Creatine Kinase 1498 H 1404 H CK-MB (CK-2) 8.53 H Troponin I < 0.012 06/14/16 06/14/16 06/14/16 14:55 20:50 20:50 Creatine Kinase 1471 H CK-MB (CK-2) 8.59 H 9.43 H Troponin I < 0.012 0.135 Impressions: Chest X-Ray 06/13/16 20:50 IMPRESSION: NO ACUTE RADIOGRAPHIC FINDING IN THE CHEST. Assessment & Plan - Diagnosis (1) Acute hypercapnic respiratory failure Is this a current diagnosis for this admission?: Yes (2) Coronary artery disease Qualifiers: Coronary Disease-Associated Artery/Lesion type: [place] artery [place] vs. transplanted heart: [place] heart Associated angina: without angina Qualified Code(s): I25.10 - Atherosclerotic heart disease of [place] coronary artery without angina pectoris (3) Diabetes mellitus Qualifiers: Diabetes mellitus type: type 2 Diabetes mellitus complication status: with neurologic complications Diabetes mellitus complication detail: with polyneuropathy Is this a current diagnosis for this admission?: Yes (4) Acute exacerbation of chronic obstructive pulmonary disease (COPD) Is this a current diagnosis for this admission?: Yes (5) Elevated troponin Is this a current diagnosis for this admission?: Yes (6) E. coli UTI Is this a current diagnosis for this admission?: Yes
[2016-06-20] MEDS: ATORVASTATIN CALCIUM 40 MG TABLET PO SCH (23:24)
[2016-06-20] MEDS: CEFTRIAXONE 2 GM/D5W RTU 2 GM/50 ML RTUPB IV SCH (23:25)
[2016-06-21] MEDS: TRAMADOL HCL 50 MG TABLET PO PRN ×3 (01:50→18:30)
[2016-06-21] MEDS: ZOLPIDEM TARTRATE 5 MG TABLET PO PRN (01:50)
[2016-06-21] MEDS: METOPROLOL TARTRATE 25 MG TABLET PO SCH ×3 (02:05→22:00)
[2016-06-21] MEDS: IPRATROPIUM/ALBUTEROL 0.5-2.5 MG/3 ML AMPUL NEB SCH ×5 (04:02→20:55)
[2016-06-21] MEDS: GABAPENTIN 300 MG CAPSULE PO SCH ×3 (06:32→22:02)
[2016-06-21] MEDS: METHYLPREDNISOLONE INJ 40 MG/1 ML SDV IV SCH ×3 (06:32→21:58)
[2016-06-21] MEDS: PRAMIPEXOLE DI-HCL 0.25 MG TABLET PO SCH ×3 (06:32→22:00)
[2016-06-21] MEDS: TIOTROPIUM BROMIDE DPI 5 CAP/KIT (18 MCG/CAP) IH SCH (11:21)
[2016-06-21] MEDS: FLUTICASONE/SALMETEROL DISKUS 250-50 MCG/DOSE IH SCH ×2 (11:21→21:59)
[2016-06-21] MEDS: MAGNESIUM OXIDE 400 MG TABLET PO SCH (11:22)
[2016-06-21] MEDS: SPIRONOLACTONE 25 MG TABLET PO SCH (11:22)
[2016-06-21] MEDS: METFORMIN HCL 500 MG TABLET PO SCH ×2 (11:23→15:45)
[2016-06-21] MEDS: CLOPIDOGREL BISULFATE 75 MG TABLET PO SCH (11:23)
[2016-06-21] MEDS: PIOGLITAZONE HCL 15 MG TABLET PO SCH (11:23)
[2016-06-21] MEDS: ASPIRIN 81 MG TABLET, ENT COATED PO SCH (11:23)
[2016-06-21] MEDS: LEVOFLOXACIN 750 MG TABLET PO SCH (11:24)
[2016-06-21] MEDS: FERROUS SULFATE 325 MG TABLET PO SCH (11:24)
[2016-06-21] MEDS: DULOXETINE HCL 30 MG CAPSULE.DR PO SCH (11:24)
[2016-06-21] MEDS: SACUBITRIL/VALSARTAN 24 MG/26 MG TABLET PO SCH ×2 (11:28→22:01)
[2016-06-21] MEDS: INSULIN DETEMIR 100 UNIT/ML 3 ML PEN SUBCUT SCH (11:32)
[2016-06-21] MEDS: INSULIN LISPRO 100 UNIT/ML 3 ML VIAL SUBCUT PRN ×3 (11:35→23:32)
--- NOTE | 2016-06-21 14:52 | PDOC CONSULTATION ---
Consultation Consult Date: 06/21/16 Attending physician:: TANISHA POLLARD Consult reason:: Dyspnea History of Present Illness Admission Date/PCP: 06/14/16 03:21 History of Present Illness: TORREY MARKS is a 65 year old female, with multiple comorbid conditions, multiple hospitalization, she came to the emergency room earlier this morning because of respiratory distress due to acute COPD exacerbation, she was treated with IV Solu-Medrol bronchodilators and noninvasive positive pressure ventilation, BiPAP machine. She was also found to have a fever with temperature 101.3. She had extensive history of tobacco abuse but has not smoked in the last several years she has been maintained on long-term CPAP therapy but is frequently noncompliant Past Medical History Cardiac Medical History: Reports: Coronary Artery Disease, Hyperlipidema, Hypertension, Peripheral Vascular Disease Denies: Heart Murmur Pulmonary Medical History: Reports: Asthma, Bronchitis, Chronic Obstructive Pulmonary Disease (COPD), Respiratory Failure, Sleep Apnea Denies: Tuberculosis Neurological Medical History: Reports: Migraine Denies: Seizures Endocrine Medical History: Reports: Diabetes Mellitus Type 1, Diabetes Mellitus Type 2 Renal/ Medical History: Malignancy Medical History: GI Medical History: Musculoskeltal Medical History: Reports: Arthritis, Fibromyalgia Psychiatric Medical History: Reports: Depression Denies: Attention Deficit Hyperactivity Disorder Infectious Medical History: Reports: Clostridium Difficile, Methicillin- Resistant Staph Aureus Past Surgical History Past Surgical History: Reports: Amputation, Appendectomy, Cardiac Catheterization, Cholecystectomy, Coronary Stent, Hysterectomy, Orthopedic Surgery - right shoulder, Tubal Ligation, Vascular Surgery Social History Smoking Status: Former Smoker Passive smoke exposure as: Both Frequency of Alcohol Use: None Hx Recreational Drug Use: No Drugs: None Hx Prescription Drug Abuse: No Do you have pets?: No Have you had any respiratory illnesses as a child?: No Have you been exposed to any sick contacts recently?: No Have you had any recent respiratory illnesses?: No Have you travelled outside of [place] in the past 12 months?: No - Advance Directive Resuscitation Status: Full Code Family History Family History: Hypertension, Other - Alzheimer's, renal failure Parental Family History Reviewed: Yes Children Family History Reviewed: Yes Sibling(s) Family History Reviewed.: Yes Medication/Allergy Home Medications: Aspirin [Ecotrin 81 mg EC Tablet] 81 mg PO DAILY 05/18/16 Atorvastatin Calcium [Lipitor 40 mg Tablet] 40 mg PO QHS 05/18/16 Clopidogrel Bisulfate [Plavix 75 mg Tablet] 75 mg PO DAILY 05/18/16 Duloxetine HCl [Cymbalta] 60 mg PO DAILY 05/18/16 Insulin Detemir [Levemir Flextouch] 15 units SQ QAM 05/18/16 Magnesium Oxide [Mag-Ox 400 mg Tablet] 400 mg PO DAILY 05/18/16 Melatonin 6 mg PO QHS 05/18/16 Metformin HCl [Metformin HCl ER] 500 mg PO WSUPPER 05/18/16 Pramipexole Di-HCl [Mirapex] 0.125 mg PO TID 05/18/16 Sacubitril/Valsartan [Entresto 24 mg-26 mg Tablet] 1 each PO Q12 05/18/16 Spironolactone [Aldactone 25 mg Tablet] 25 mg PO DAILY 05/18/16 Tramadol HCl [Ultram 50 mg Tablet] 50 mg PO Q6HP PRN 05/18/16 Albuterol Sulfate [Proair HFA] 2 puff IH Q4HP PRN 06/14/16 Ferrous Sulfate [Iron] 325 mg PO DAILY 06/14/16 Fluticasone/Salmeterol [Advair 250-50 Diskus 28 dose] 1 inh IH Q12 06/14/16 Gabapentin 900 mg PO TID 06/14/16 Metoprolol Tartrate 12.5 mg PO BID 06/14/16 Ondansetron HCl [Zofran 8 mg Tablet] 8 mg PO Q8HP PRN 06/14/16 Pioglitazone HCl [Actos] 45 mg PO DAILY 06/14/16 Tiotropium [place] [Spiriva Handihaler 18 mcg/dose (30 Dose)] 1 cap IH DAILY Allergies/Adverse Reactions: codeine [Codeine] Adverse Reaction (Unknown, Verified 05/17/16 20:17) Physical Exam Vital Signs: Temp Pulse Resp BP Pulse Ox 98.8 F 98 18 135/67 H 97 06/21/16 07:48 06/21/16 08:36 06/21/16 08:36 06/21/16 07:48 06/21/16 08:36 Intake & Output 06/20/16 06/21/16 06/22/16 06:59 06:59 06:59 Intake Total 1708 1052 Output Total 1550 1500 Balance 158 -448 Weight 119.1 kg 122 kg General appearance: PRESENT: disheveled, mild distress, morbidly obese Head exam: PRESENT: atraumatic, normocephalic Eye exam: PRESENT: conjunctiva pale, EOMI Mouth exam: PRESENT: dry mucosa, neck supple Neck exam: ABSENT: carotid bruit, JVD, lymphadenopathy, thyromegaly Respiratory exam: PRESENT: decreased breath sounds, prolonged expiratory phas, rales, rhonchi, symmetrical Cardiovascular exam: PRESENT: RRR, +S1, +S2 Pulses: PRESENT: normal radial pulses GI/Abdominal exam: PRESENT: normal bowel sounds, soft. ABSENT: distended, guarding, mass, organolmegaly, rebound, tenderness Rectal exam: PRESENT: deferred Gentrourinary exam: PRESENT: indwelling catheter Neurological exam: PRESENT: alert, awake Skin exam: PRESENT: dry, warm Results Laboratory Results: 06/19/16 15:55 06/19/16 15:55 06/14/16 06/14/16 06/14/16 09:09 09:09 14:55 Creatine Kinase 1498 H 1404 H CK-MB (CK-2) 8.53 H Troponin I < 0.012 06/14/16 06/14/16 06/14/16 14:55 20:50 20:50 Creatine Kinase 1471 H CK-MB (CK-2) 8.59 H 9.43 H Troponin I < 0.012 0.135 Impressions: Chest X-Ray 06/13/16 20:50 IMPRESSION: NO ACUTE RADIOGRAPHIC FINDING IN THE CHEST. Assessment & Plan - Diagnosis (1) Acute chronic obstructive pulmonary disease with respiratory distress Is this a current diagnosis for this admission?: YesPlan: increase epap 8cm rr12 fio2 40 % check abg in 2 hrs (2) Acute hypercapnic respiratory failure Is this a current diagnosis for this admission?: YesPlan: Noninvasive positive pressure ventilation 24/7 except when eating eats sitting in upright position noninvasive positive pressure ventilation 30-45 minutes postprandial (3) Obesity Is this a current diagnosis for this admission?: Yes
[2016-06-21] MEDS ORDERED: GUAIFENESIN 600 MG TABLET.SA PO ONE (16:00)
[2016-06-21] MEDS ORDERED: BENZONATATE 100 MG CAPSULE PO ONE (16:00)
[2016-06-21 17:19] LABS: ARTERIAL BLOOD BASE EXCESS 13.6 mmol/L; ARTERIAL BLOOD O2 SATURATION 97.5 % (94-98)
[2016-06-21] MEDS: ONDANSETRON HCL 8 MG TABLET PO PRN (18:30)
--- NOTE | 2016-06-21 18:38 | PDOC PROGRESS REPORT ---
Subjective Progress Note for:: 06/21/16 Subjective:: She was seen by the bedside, she was seen by pulmonary this morning, she is coughing and she complained of chest pain after cough. She is presently on tramadol for pain control, as needed. Physical Exam Vital Signs: Temp Pulse Resp BP Pulse Ox 98.9 F 103 H 20 121/54 L 99 06/21/16 11:47 06/21/16 15:54 06/21/16 15:54 06/21/16 11:47 06/21/16 15:54 Intake & Output 06/20/16 06/21/16 06/22/16 06:59 06:59 06:59 Intake Total 1708 1052 816 Output Total 1550 1500 1500 Balance 158 -900 -604 Weight 119.1 kg 122 kg General appearance: PRESENT: no acute distress Head exam: PRESENT: atraumatic, normocephalic Eye exam: ABSENT: scleral icterus Neck exam: PRESENT: full ROM Respiratory exam: PRESENT: rhonchi Cardiovascular exam: PRESENT: RRR, +S1, +S2 Vascular exam: PRESENT: normal capillary refill GI/Abdominal exam: PRESENT: normal bowel sounds, soft Rectal exam: PRESENT: deferred Neurological exam: PRESENT: alert, awake, oriented to person, oriented to place , oriented to time, oriented to situation, CN II-XII grossly intact. ABSENT: motor sensory deficit Psychiatric exam: PRESENT: appropriate affect, normal mood. ABSENT: homicidal ideation, suicidal ideation Skin exam: PRESENT: dry, intact, warm. ABSENT: cyanosis, rash Results Laboratory Results: 06/19/16 15:55 06/19/16 15:55 06/21/16 16:25 Carbonic Acid 1.96 H HCO3/H2CO3 Ratio 20:1 ABG pH 7.42 ABG pCO2 65.1 H ABG pO2 101.2 H ABG HCO3 40.9 H ABG O2 Saturation 97.5 ABG Base Excess 13.6 FiO2 30% 06/14/16 06/14/16 06/14/16 09:09 09:09 14:55 Creatine Kinase 1498 H 1404 H CK-MB (CK-2) 8.53 H Troponin I < 0.012 06/14/16 06/14/16 06/14/16 14:55 20:50 20:50 Creatine Kinase 1471 H CK-MB (CK-2) 8.59 H 9.43 H Troponin I < 0.012 0.135 Impressions: Chest X-Ray 06/13/16 20:50 IMPRESSION: NO ACUTE RADIOGRAPHIC FINDING IN THE CHEST. Assessment & Plan - Diagnosis (1) Acute hypercapnic respiratory failure Is this a current diagnosis for this admission?: Yes (2) Coronary artery disease Qualifiers: Coronary Disease-Associated Artery/Lesion type: [place] artery [place] vs. transplanted heart: [place] heart Associated angina: without angina Qualified Code(s): I25.10 - Atherosclerotic heart disease of [place] coronary artery without angina pectoris (3) Diabetes mellitus Qualifiers: Diabetes mellitus type: type 2 Diabetes mellitus complication status: with neurologic complications Diabetes mellitus complication detail: with polyneuropathy Is this a current diagnosis for this admission?: Yes (4) Acute exacerbation of chronic obstructive pulmonary disease (COPD) Is this a current diagnosis for this admission?: Yes (5) Elevated troponin Is this a current diagnosis for this admission?: Yes (6) E. coli UTI Is this a current diagnosis for this admission?: Yes - Plan Summary Plan Summary: Solu-Medrol dose to be reduced to 10 IV every 8, she will continue IV antibiotic , she may need noninvasive positive pressure ventilation on discharge, she was seen by pulmonary Dr. Lake
[2016-06-21] MEDS: GUAIFENESIN 600 MG TABLET.SA PO SCH (21:59)
[2016-06-21] MEDS: ATORVASTATIN CALCIUM 40 MG TABLET PO SCH (22:02)
[2016-06-21] MEDS: BENZONATATE 100 MG CAPSULE PO SCH (22:02)
[2016-06-21] MEDS: CEFTRIAXONE 2 GM/D5W RTU 2 GM/50 ML RTUPB IV SCH (22:03)
[2016-06-22] MEDS: IPRATROPIUM/ALBUTEROL 0.5-2.5 MG/3 ML AMPUL NEB SCH ×6 (00:26→20:22)
[2016-06-22] MEDS: ZOLPIDEM TARTRATE 5 MG TABLET PO PRN (01:01)
[2016-06-22] MEDS: TRAMADOL HCL 50 MG TABLET PO PRN ×4 (01:01→22:42)
[2016-06-22] MEDS: METHYLPREDNISOLONE INJ 40 MG/1 ML SDV IV SCH ×3 (06:38→22:44)
[2016-06-22] MEDS: BENZONATATE 100 MG CAPSULE PO SCH ×3 (06:38→22:43)
[2016-06-22] MEDS: GABAPENTIN 300 MG CAPSULE PO SCH ×3 (06:39→22:46)
[2016-06-22] MEDS: PRAMIPEXOLE DI-HCL 0.25 MG TABLET PO SCH ×3 (06:40→22:43)
[2016-06-22] MEDS: METFORMIN HCL 500 MG TABLET PO SCH ×2 (09:38→17:02)
[2016-06-22] MEDS: SACUBITRIL/VALSARTAN 24 MG/26 MG TABLET PO SCH ×2 (09:39→22:42)
[2016-06-22] MEDS: PIOGLITAZONE HCL 15 MG TABLET PO SCH (09:39)
[2016-06-22] MEDS: FLUTICASONE/SALMETEROL DISKUS 250-50 MCG/DOSE IH SCH ×2 (09:39→22:44)
[2016-06-22] MEDS: TIOTROPIUM BROMIDE DPI 5 CAP/KIT (18 MCG/CAP) IH SCH (09:39)
[2016-06-22] MEDS: MAGNESIUM OXIDE 400 MG TABLET PO SCH (09:40)
[2016-06-22] MEDS: LEVOFLOXACIN 750 MG TABLET PO SCH (09:40)
[2016-06-22] MEDS: METOPROLOL TARTRATE 25 MG TABLET PO SCH ×2 (09:40→22:43)
[2016-06-22] MEDS: GUAIFENESIN 600 MG TABLET.SA PO SCH ×2 (09:40→22:42)
[2016-06-22] MEDS: ASPIRIN 81 MG TABLET, ENT COATED PO SCH (09:40)
[2016-06-22] MEDS: FERROUS SULFATE 325 MG TABLET PO SCH (09:41)
[2016-06-22] MEDS: INSULIN DETEMIR 100 UNIT/ML 3 ML PEN SUBCUT SCH (09:41)
[2016-06-22] MEDS: CLOPIDOGREL BISULFATE 75 MG TABLET PO SCH (09:41)
[2016-06-22] MEDS: SPIRONOLACTONE 25 MG TABLET PO SCH (09:41)
[2016-06-22] MEDS: DULOXETINE HCL 30 MG CAPSULE.DR PO SCH (09:41)
[2016-06-22] MEDS: INSULIN LISPRO 100 UNIT/ML 3 ML VIAL SUBCUT PRN ×3 (09:42→22:44)
[2016-06-22] MEDS: ONDANSETRON HCL 8 MG TABLET PO PRN ×2 (13:30→22:44)
--- NOTE | 2016-06-22 15:39 | PDOC PROGRESS REPORT ---
Subjective Progress Note for:: 06/22/16 Subjective:: Patient reported rib margin pain from coughing. Cough is productive of yellow and whitish sputum. No overt fever or chills. Breathing remain somewhat short with need for supplemental oxygen usage. No nausea, vomiting or abdominal pain. Physical Exam Vital Signs: Temp Pulse Resp BP Pulse Ox 98.1 F 92 18 107/51 L 96 06/22/16 11:54 06/22/16 12:09 06/22/16 12:09 06/22/16 11:54 06/22/16 11:54 Intake & Output 06/21/16 06/22/16 06/23/16 06:59 06:59 06:59 Intake Total 1052 2076 Output Total 1500 2000 Balance -448 76 Weight 122 kg 121.4 kg General appearance: PRESENT: no acute distress, cooperative, mild distress Head exam: PRESENT: atraumatic, normocephalic Eye exam: ABSENT: conjunctival injection, conjunctiva pink, conjunctiva pale, EOMI, nystagmus, periorbital swelling, PERRLA, scleral icterus, other Mouth exam: PRESENT: moist, tongue midline Respiratory exam: PRESENT: clear to auscultation rolf, decreased breath sounds, rhonchi GI/Abdominal exam: PRESENT: normal bowel sounds, soft. ABSENT: distended, guarding, mass, organolmegaly, rebound, tenderness Extremities exam: ABSENT: pedal edema Musculoskeletal exam: PRESENT: ambulatory. ABSENT: deformity Neurological exam: PRESENT: alert, awake, oriented to person, oriented to place , oriented to time, oriented to situation, CN II-XII grossly intact. ABSENT: motor sensory deficit Psychiatric exam: PRESENT: appropriate affect, normal mood. ABSENT: homicidal ideation, suicidal ideation Skin exam: PRESENT: dry, intact, warm. ABSENT: cyanosis, rash Results Laboratory Results: 06/19/16 15:55 06/19/16 15:55 06/21/16 16:25 Carbonic Acid 1.96 H HCO3/H2CO3 Ratio 20:1 ABG pH 7.42 ABG pCO2 65.1 H ABG pO2 101.2 H ABG HCO3 40.9 H ABG O2 Saturation 97.5 ABG Base Excess 13.6 FiO2 30% 06/14/16 06/14/16 06/14/16 09:09 09:09 14:55 Creatine Kinase 1498 H 1404 H CK-MB (CK-2) 8.53 H Troponin I < 0.012 06/14/16 06/14/16 06/14/16 14:55 20:50 20:50 Creatine Kinase 1471 H CK-MB (CK-2) 8.59 H 9.43 H Troponin I < 0.012 0.135 Impressions: Chest X-Ray 06/13/16 20:50 IMPRESSION: NO ACUTE RADIOGRAPHIC FINDING IN THE CHEST. Assessment & Plan - Diagnosis (1) Diabetes mellitus type 2 in obese Is this a current diagnosis for this admission?: YesPlan: Continue current medication management (2) Acute chronic obstructive pulmonary disease with respiratory distress Is this a current diagnosis for this admission?: YesPlan: Continue current medication management (3) Acute hypercapnic respiratory failure Is this a current diagnosis for this admission?: YesPlan: Continue current medication management (4) E. 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 Allowed patient to use KPAD topically intermittently for pain management. Bedside flutter device to aide expectoration.
[2016-06-22] MEDS: ATORVASTATIN CALCIUM 40 MG TABLET PO SCH (22:43)
[2016-06-22] MEDS: CEFTRIAXONE 2 GM/D5W RTU 2 GM/50 ML RTUPB IV SCH (22:45)
[2016-06-23] MEDS: IPRATROPIUM/ALBUTEROL 0.5-2.5 MG/3 ML AMPUL NEB SCH ×6 (00:16→20:44)
[2016-06-23] MEDS: METHYLPREDNISOLONE INJ 40 MG/1 ML SDV IV SCH ×3 (05:05→22:27)
[2016-06-23] MEDS: TRAMADOL HCL 50 MG TABLET PO PRN ×3 (05:05→18:33)
[2016-06-23] MEDS: GABAPENTIN 300 MG CAPSULE PO SCH ×3 (05:05→22:27)
[2016-06-23] MEDS: BENZONATATE 100 MG CAPSULE PO SCH ×3 (05:05→22:29)
[2016-06-23] MEDS: PRAMIPEXOLE DI-HCL 0.25 MG TABLET PO SCH ×3 (05:06→22:28)
[2016-06-23] MEDS: METFORMIN HCL 500 MG TABLET PO SCH ×2 (07:46→17:31)
[2016-06-23] MEDS: LEVOFLOXACIN 750 MG TABLET PO SCH (07:46)
[2016-06-23] MEDS: SPIRONOLACTONE 25 MG TABLET PO SCH (07:47)
[2016-06-23] MEDS: PIOGLITAZONE HCL 15 MG TABLET PO SCH (07:47)
[2016-06-23] MEDS: METOPROLOL TARTRATE 25 MG TABLET PO SCH ×2 (07:47→22:34)
[2016-06-23] MEDS: MAGNESIUM OXIDE 400 MG TABLET PO SCH (07:47)
[2016-06-23] MEDS: CLOPIDOGREL BISULFATE 75 MG TABLET PO SCH (07:47)
[2016-06-23] MEDS: ASPIRIN 81 MG TABLET, ENT COATED PO SCH (07:48)
[2016-06-23] MEDS: DULOXETINE HCL 30 MG CAPSULE.DR PO SCH (07:48)
[2016-06-23] MEDS: GUAIFENESIN 600 MG TABLET.SA PO SCH ×2 (07:48→22:28)
[2016-06-23] MEDS: TIOTROPIUM BROMIDE DPI 5 CAP/KIT (18 MCG/CAP) IH SCH (07:49)
[2016-06-23] MEDS: SACUBITRIL/VALSARTAN 24 MG/26 MG TABLET PO SCH ×2 (07:49→22:28)
[2016-06-23] MEDS: FERROUS SULFATE 325 MG TABLET PO SCH (07:50)
[2016-06-23] MEDS: INSULIN DETEMIR 100 UNIT/ML 3 ML PEN SUBCUT SCH (07:53)
[2016-06-23] MEDS: INSULIN LISPRO 100 UNIT/ML 3 ML VIAL SUBCUT PRN ×4 (07:57→22:27)
[2016-06-23] MEDS: FLUTICASONE/SALMETEROL DISKUS 250-50 MCG/DOSE IH SCH ×2 (12:53→22:27)
--- NOTE | 2016-06-23 14:55 | PDOC PROGRESS REPORT ---
Subjective Progress Note for:: 06/23/16 Subjective:: Patient reported some improvement in her coughing and sputum production, No yanelis compliant with use of Flitter valve for assistance with expectoration. No fever or chills. Breathing remain somewhat short with need for supplemental oxygen usage. No nausea, vomiting or abdominal pain. Physical Exam Vital Signs: Temp Pulse Resp BP Pulse Ox 98.4 F 81 16 101/45 L 92 06/23/16 11:46 06/23/16 12:00 06/23/16 12:00 06/23/16 11:46 06/23/16 11:46 Intake & Output 06/22/16 06/23/16 06/24/16 06:59 06:59 06:59 Intake Total 2076 1601 Output Total 2000 Balance 76 1601 Weight 121.4 kg 121 kg Physical Exam: General appearance: PRESENT: no acute distress, cooperative, mild distress Head exam: PRESENT: atraumatic, normocephalic Eye exam: ABSENT: conjunctival injection, conjunctiva pink, conjunctiva pale, EOMI, nystagmus, periorbital swelling, PERRLA, scleral icterus, other Mouth exam: PRESENT: moist, tongue midline Respiratory exam: PRESENT: clear to auscultation rolf, decreased breath sounds, rhonchi GI/Abdominal exam: PRESENT: normal bowel sounds, soft. ABSENT: distended, guarding, mass, organomegaly, rebound, tenderness Extremities exam: ABSENT: pedal edema Musculoskeletal exam: PRESENT: ambulatory. ABSENT: deformity Neurological exam: PRESENT: alert, awake, oriented to person, oriented to place , oriented to time, oriented to situation, CN II-XII grossly intact. ABSENT: motor sensory deficit Psychiatric exam: PRESENT: appropriate affect, normal mood. ABSENT: homicidal ideation, suicidal ideation Skin exam: PRESENT: dry, intact, warm. ABSENT: cyanosis, rash Results Laboratory Results: 06/19/16 15:55 06/19/16 15:55 06/14/16 06/14/16 06/14/16 09:09 09:09 14:55 Creatine Kinase 1498 H 1404 H CK-MB (CK-2) 8.53 H Troponin I < 0.012 06/14/16 06/14/16 06/14/16 14:55 20:50 20:50 Creatine Kinase 1471 H CK-MB (CK-2) 8.59 H 9.43 H Troponin I < 0.012 0.135 Impressions: Chest X-Ray 06/13/16 20:50 IMPRESSION: NO ACUTE RADIOGRAPHIC FINDING IN THE CHEST. Assessment & Plan - Diagnosis (1) Diabetes mellitus type 2 in obese Is this a current diagnosis for this admission?: Yes (2) Acute chronic obstructive pulmonary disease with respiratory distress Is this a current diagnosis for this admission?: Yes (3) Acute hypercapnic respiratory failure Is this a current diagnosis for this admission?: Yes (4) E. 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
[2016-06-23] MEDS: CEFTRIAXONE 2 GM/D5W RTU 2 GM/50 ML RTUPB IV SCH (22:27)
[2016-06-23] MEDS: ZOLPIDEM TARTRATE 5 MG TABLET PO PRN (22:28)
[2016-06-23] MEDS: ATORVASTATIN CALCIUM 40 MG TABLET PO SCH (22:29)
[2016-06-24] MEDS: IPRATROPIUM/ALBUTEROL 0.5-2.5 MG/3 ML AMPUL NEB SCH ×7 (00:23→23:53)
[2016-06-24] MEDS: METHYLPREDNISOLONE INJ 40 MG/1 ML SDV IV SCH ×3 (06:37→22:07)
[2016-06-24] MEDS: GABAPENTIN 300 MG CAPSULE PO SCH ×3 (06:37→22:06)
[2016-06-24] MEDS: TRAMADOL HCL 50 MG TABLET PO PRN ×3 (06:37→18:42)
[2016-06-24] MEDS: BENZONATATE 100 MG CAPSULE PO SCH ×3 (06:37→22:06)
[2016-06-24] MEDS: PRAMIPEXOLE DI-HCL 0.25 MG TABLET PO SCH ×3 (06:38→22:06)
[2016-06-24] MEDS: INSULIN LISPRO 100 UNIT/ML 3 ML VIAL SUBCUT PRN ×4 (08:00→22:06)
[2016-06-24] MEDS: INSULIN DETEMIR 100 UNIT/ML 3 ML PEN SUBCUT SCH (08:02)
[2016-06-24] MEDS: METFORMIN HCL 500 MG TABLET PO SCH ×2 (08:04→17:44)
[2016-06-24] MEDS: LEVOFLOXACIN 750 MG TABLET PO SCH (11:02)
[2016-06-24] MEDS: TIOTROPIUM BROMIDE DPI 5 CAP/KIT (18 MCG/CAP) IH SCH (11:03)
[2016-06-24] MEDS: METOPROLOL TARTRATE 25 MG TABLET PO SCH ×2 (11:03→22:06)
[2016-06-24] MEDS: MAGNESIUM OXIDE 400 MG TABLET PO SCH (11:03)
[2016-06-24] MEDS: SPIRONOLACTONE 25 MG TABLET PO SCH (11:03)
[2016-06-24] MEDS: ASPIRIN 81 MG TABLET, ENT COATED PO SCH (11:03)
[2016-06-24] MEDS: PIOGLITAZONE HCL 15 MG TABLET PO SCH (11:03)
[2016-06-24] MEDS: GUAIFENESIN 600 MG TABLET.SA PO SCH ×2 (11:03→22:06)
[2016-06-24] MEDS: SACUBITRIL/VALSARTAN 24 MG/26 MG TABLET PO SCH ×2 (11:04→22:17)
[2016-06-24] MEDS: DULOXETINE HCL 30 MG CAPSULE.DR PO SCH (11:04)
[2016-06-24] MEDS: FERROUS SULFATE 325 MG TABLET PO SCH (11:04)
[2016-06-24] MEDS: FLUTICASONE/SALMETEROL DISKUS 250-50 MCG/DOSE IH SCH ×2 (11:08→22:07)
[2016-06-24] MEDS: CLOPIDOGREL BISULFATE 75 MG TABLET PO SCH (11:09)
--- NOTE | 2016-06-24 14:32 | PDOC PROGRESS REPORT ---
Subjective Progress Note for:: 06/24/16 Subjective:: Little better but not much Physical Exam Vital Signs: Temp Pulse Resp BP Pulse Ox 98.2 F 95 20 134/59 H 94 06/24/16 11:57 06/24/16 12:01 06/24/16 12:01 06/24/16 11:57 06/24/16 12:01 Intake & Output 06/23/16 06/24/16 06/25/16 06:59 06:59 06:59 Intake Total 1601 652 240 Output Total 600 500 Balance 1601 52 -260 Weight 121 kg 122.6 kg General appearance: PRESENT: cooperative, disheveled, mild distress, obese, well -developed Head exam: PRESENT: atraumatic, normocephalic Eye exam: PRESENT: conjunctiva pale, EOMI Mouth exam: PRESENT: dry mucosa, neck supple Teeth exam: PRESENT: poor dentation Neck exam: ABSENT: carotid bruit, JVD, lymphadenopathy, thyromegaly Respiratory exam: PRESENT: crackles, decreased breath sounds, prolonged expiratory phas, rhonchi, symmetrical, wheezes Cardiovascular exam: PRESENT: RRR, +S1, +S2 Pulses: PRESENT: normal radial pulses GI/Abdominal exam: PRESENT: normal bowel sounds, soft. ABSENT: distended, guarding, mass, organolmegaly, rebound, tenderness Rectal exam: PRESENT: deferred Musculoskeletal exam: PRESENT: normal inspection Neurological exam: PRESENT: awake Psychiatric exam: PRESENT: normal mood Skin exam: PRESENT: dry, warm Results Laboratory Results: 06/19/16 15:55 06/19/16 15:55 06/14/16 06/14/16 06/14/16 09:09 09:09 14:55 Creatine Kinase 1498 H 1404 H CK-MB (CK-2) 8.53 H Troponin I < 0.012 06/14/16 06/14/16 06/14/16 14:55 20:50 20:50 Creatine Kinase 1471 H CK-MB (CK-2) 8.59 H 9.43 H Troponin I < 0.012 0.135 Impressions: Chest X-Ray 06/13/16 20:50 IMPRESSION: NO ACUTE RADIOGRAPHIC FINDING IN THE CHEST. Assessment & Plan - Diagnosis (1) Acute chronic obstructive pulmonary disease with respiratory distress Is this a current diagnosis for this admission?: YesPlan: Check arterial blood gas (2) Acute hypercapnic respiratory failure Is this a current diagnosis for this admission?: YesPlan: We will check chest x-ray (3) Obesity Is this a current diagnosis for this admission?: Yes
[2016-06-24 15:58] LABS: HEMATOCRIT 34.2 % (36.0-47.0); HEMOGLOBIN 10.9 g/dL (12.0-15.5); HGB HCT DIFFERENCE -1.5; MEAN CORPUSCULAR HGB CONC 31.8 g/dL (32.0-36.0); MEAN CORPUSCULAR VOLUME 91 fl (80-97); RED BLOOD COUNT 3.76 10^6/uL (3.72-5.28); RED CELL DISTRIBUTION WIDTH 14.3 % (11.5-14.0); WHITE BLOOD COUNT 13.4 10^3/uL (4.0-10.5)
[2016-06-24 16:17] LABS: BLOOD UREA NITROGEN 27 mg/dL (7-20); CALCIUM 8.7 mg/dL (8.4-10.2); CHLORIDE 90 mmol/L (98-107); GLUCOSE 261 mg/dL (75-110); POTASSIUM 5.4 mmol/L (3.6-5.0)
[2016-06-24 16:21] LABS: ANISOCYTOSIS SLIGHT; BAND NEUTROPHILS % (MANUAL) 2 % (3-5); BASOPHILS % (MANUAL) 0 % (0-2); EOSINOPHILS % (MANUAL) 0 % (0-6); LYMPHOCYTES % (MANUAL) 4 % (13-45); TOTAL CELLS COUNTED 100
[2016-06-24 16:24] LABS: POIKILOCYTOSIS SLIGHT; POLYCHROMASIA SLIGHT; TARGET CELLS SLIGHT
[2016-06-24 16:27] LABS: ARTERIAL BLOOD BASE EXCESS 16.3 mmol/L; ARTERIAL BLOOD O2 SATURATION 96.4 % (94-98)
[2016-06-24 16:33] LABS: ANION GAP 7 (5-19)
[2016-06-24 16:34] LABS: CARBON DIOXIDE 39 mmol/L (22-30)
--- NOTE | 2016-06-24 19:17 | PDOC PROGRESS REPORT ---
Subjective Progress Note for:: 06/24/16 Subjective:: Patient may need to go home with noninvasive positive pressure ventilation, she was seen by pulmonary Dr. Lake, I had a long discussion with patient and daughter about plan of care. Physical Exam Vital Signs: Temp Pulse Resp BP Pulse Ox 98.5 F 87 19 120/60 92 06/24/16 16:45 06/24/16 16:45 06/24/16 16:45 06/24/16 16:45 06/24/16 16:45 Intake & Output 06/23/16 06/24/16 06/25/16 06:59 06:59 06:59 Intake Total 4147 686 3084 Output Total 600 1450 Balance 1601 52 -23 Weight 121 kg 122.6 kg General appearance: PRESENT: no acute distress, well-developed, well-nourished Head exam: PRESENT: atraumatic, normocephalic Eye exam: PRESENT: conjunctiva pink, EOMI, PERRLA Mouth exam: PRESENT: moist, tongue midline Neck exam: PRESENT: full ROM Cardiovascular exam: PRESENT: RRR, +S1, +S2 Vascular exam: PRESENT: normal capillary refill GI/Abdominal exam: PRESENT: normal bowel sounds, soft Rectal exam: PRESENT: deferred Neurological exam: PRESENT: alert Psychiatric exam: PRESENT: appropriate affect, normal mood Skin exam: PRESENT: dry, intact, warm Results Laboratory Results: 06/24/16 15:41 06/24/16 15:41 06/24/16 06/24/16 06/24/16 15:41 15:41 16:10 WBC 13.4 H RBC 3.76 Hgb 10.9 L Hct 34.2 L MCV 91 MCH 29.0 MCHC 31.8 L RDW 14.3 H Plt Count 300 Seg Neutrophils % Not Reportable Lymphocytes % Not Reportable Monocytes % Not Reportable Eosinophils % Not Reportable Basophils % Not Reportable Absolute Neutrophils Not Reportable Absolute Lymphocytes Not Reportable Absolute Monocytes Not Reportable Absolute Eosinophils Not Reportable Absolute Basophils Not Reportable Carbonic Acid 1.84 H HCO3/H2CO3 Ratio 23:1 ABG pH 7.46 H ABG pCO2 61.1 H ABG pO2 82.9 ABG HCO3 42.7 H ABG O2 Saturation 96.4 ABG Base Excess 16.3 FiO2 2.5L Sodium 136.0 L Potassium 5.4 H Chloride 90 L Carbon Dioxide 39 H Anion Gap 7 BUN 27 H Creatinine 0.80 Est GFR ( Amer) > 60 Est GFR (Non-Af Amer) > 60 Glucose 261 H Calcium 8.7 06/14/16 06/14/16 06/14/16 09:09 09:09 14:55 Creatine Kinase 1498 H 1404 H CK-MB (CK-2) 8.53 H Troponin I < 0.012 06/14/16 06/14/16 06/14/16 14:55 20:50 20:50 Creatine Kinase 1471 H CK-MB (CK-2) 8.59 H 9.43 H Troponin I < 0.012 0.135 Impressions: Chest X-Ray 06/13/16 20:50 IMPRESSION: NO ACUTE RADIOGRAPHIC FINDING IN THE CHEST. Assessment & Plan - Diagnosis (1) Acute hypercapnic respiratory failure Is this a current diagnosis for this admission?: Yes (2) Coronary artery disease Qualifiers: Coronary Disease-Associated Artery/Lesion type: [place] artery [place] vs. transplanted heart: [place] heart Associated angina: without angina Qualified Code(s): I25.10 - Atherosclerotic heart disease of [place] coronary artery without angina pectoris (3) Diabetes mellitus Qualifiers: Diabetes mellitus type: type 2 Diabetes mellitus complication status: with neurologic complications Diabetes mellitus complication detail: with polyneuropathy Is this a current diagnosis for this admission?: Yes (4) Acute exacerbation of chronic obstructive pulmonary disease (COPD) Is this a current diagnosis for this admission?: Yes (5) Elevated troponin Is this a current diagnosis for this admission?: Yes (6) E. coli UTI Is this a current diagnosis for this admission?: Yes
[2016-06-24] MEDS: ATORVASTATIN CALCIUM 40 MG TABLET PO SCH (22:06)
[2016-06-24] MEDS: CEFTRIAXONE 2 GM/D5W RTU 2 GM/50 ML RTUPB IV SCH (22:07)
[2016-06-24] MEDS: ZOLPIDEM TARTRATE 5 MG TABLET PO PRN (22:18)
[2016-06-25] MEDS: TRAMADOL HCL 50 MG TABLET PO PRN ×4 (00:45→21:18)
[2016-06-25] MEDS: IPRATROPIUM/ALBUTEROL 0.5-2.5 MG/3 ML AMPUL NEB SCH ×5 (03:34→20:26)
[2016-06-25] MEDS: METHYLPREDNISOLONE INJ 40 MG/1 ML SDV IV SCH ×3 (05:28→21:18)
[2016-06-25] MEDS: BENZONATATE 100 MG CAPSULE PO SCH ×3 (05:28→21:17)
[2016-06-25] MEDS: PRAMIPEXOLE DI-HCL 0.25 MG TABLET PO SCH ×3 (05:29→21:17)
[2016-06-25] MEDS: GABAPENTIN 300 MG CAPSULE PO SCH ×3 (05:29→21:17)
[2016-06-25] MEDS: INSULIN LISPRO 100 UNIT/ML 3 ML VIAL SUBCUT PRN ×4 (07:48→23:11)
[2016-06-25] MEDS: INSULIN DETEMIR 100 UNIT/ML 3 ML PEN SUBCUT SCH (07:49)
[2016-06-25] MEDS: METFORMIN HCL 500 MG TABLET PO SCH ×2 (07:49→16:41)
[2016-06-25] MEDS: ONDANSETRON HCL 8 MG TABLET PO PRN (08:04)
[2016-06-25] MEDS: MAGNESIUM OXIDE 400 MG TABLET PO SCH (09:55)
[2016-06-25] MEDS: PIOGLITAZONE HCL 15 MG TABLET PO SCH (09:56)
[2016-06-25] MEDS: DULOXETINE HCL 30 MG CAPSULE.DR PO SCH (09:57)
[2016-06-25] MEDS: SPIRONOLACTONE 25 MG TABLET PO SCH (09:57)
[2016-06-25] MEDS: FERROUS SULFATE 325 MG TABLET PO SCH (09:57)
[2016-06-25] MEDS: CLOPIDOGREL BISULFATE 75 MG TABLET PO SCH (09:58)
[2016-06-25] MEDS: METOPROLOL TARTRATE 25 MG TABLET PO SCH ×2 (09:58→21:17)
[2016-06-25] MEDS: GUAIFENESIN 600 MG TABLET.SA PO SCH ×2 (09:58→21:17)
[2016-06-25] MEDS: ASPIRIN 81 MG TABLET, ENT COATED PO SCH (09:59)
[2016-06-25] MEDS: LEVOFLOXACIN 750 MG TABLET PO SCH (09:59)
[2016-06-25] MEDS: FLUTICASONE/SALMETEROL DISKUS 250-50 MCG/DOSE IH SCH ×2 (10:00→21:18)
[2016-06-25] MEDS: SACUBITRIL/VALSARTAN 24 MG/26 MG TABLET PO SCH ×2 (10:01→21:17)
[2016-06-25] MEDS: TIOTROPIUM BROMIDE DPI 5 CAP/KIT (18 MCG/CAP) IH SCH (10:36)
--- NOTE | 2016-06-25 15:27 | PDOC PROGRESS REPORT ---
Subjective Progress Note for:: 06/25/16 Subjective:: Little better but not much Physical Exam Vital Signs: Temp Pulse Resp BP Pulse Ox 99.0 F 91 18 121/55 L 96 06/25/16 11:55 06/25/16 11:56 06/25/16 11:56 06/25/16 11:55 06/25/16 11:56 Intake & Output 06/24/16 06/25/16 06/26/16 06:59 06:59 06:59 Intake Total 652 2602 458 Output Total 600 2300 550 Balance 52 302 -92 Weight 122.6 kg 121.9 kg General appearance: PRESENT: no acute distress, disheveled, obese, well- developed Head exam: PRESENT: atraumatic, normocephalic Eye exam: PRESENT: conjunctiva pale, EOMI Mouth exam: PRESENT: moist, neck supple Neck exam: ABSENT: carotid bruit, JVD, lymphadenopathy, thyromegaly Respiratory exam: PRESENT: decreased breath sounds, prolonged expiratory phas, rales, rhonchi, symmetrical, unlabored, wheezes Cardiovascular exam: PRESENT: RRR, +S1, +S2 Pulses: PRESENT: normal radial pulses GI/Abdominal exam: PRESENT: normal bowel sounds, soft. ABSENT: distended, guarding, mass, organolmegaly, rebound, tenderness Rectal exam: PRESENT: deferred Gentrourinary exam: PRESENT: indwelling catheter Musculoskeletal exam: PRESENT: normal inspection Neurological exam: PRESENT: awake Psychiatric exam: PRESENT: normal mood Skin exam: PRESENT: dry, warm Results Laboratory Results: 06/24/16 15:41 06/24/16 15:41 06/24/16 06/24/16 06/24/16 15:41 15:41 16:10 WBC 13.4 H RBC 3.76 Hgb 10.9 L Hct 34.2 L MCV 91 MCH 29.0 MCHC 31.8 L RDW 14.3 H Plt Count 300 Seg Neutrophils % Not Reportable Lymphocytes % Not Reportable Monocytes % Not Reportable Eosinophils % Not Reportable Basophils % Not Reportable Absolute Neutrophils Not Reportable Absolute Lymphocytes Not Reportable Absolute Monocytes Not Reportable Absolute Eosinophils Not Reportable Absolute Basophils Not Reportable Carbonic Acid 1.84 H HCO3/H2CO3 Ratio 23:1 ABG pH 7.46 H ABG pCO2 61.1 H ABG pO2 82.9 ABG HCO3 42.7 H ABG O2 Saturation 96.4 ABG Base Excess 16.3 FiO2 2.5L Sodium 136.0 L Potassium 5.4 H Chloride 90 L Carbon Dioxide 39 H Anion Gap 7 BUN 27 H Creatinine 0.80 Est GFR ( Amer) > 60 Est GFR (Non-Af Amer) > 60 Glucose 261 H Calcium 8.7 06/14/16 06/14/16 06/14/16 09:09 09:09 14:55 Creatine Kinase 1498 H 1404 H CK-MB (CK-2) 8.53 H Troponin I < 0.012 06/14/16 06/14/16 06/14/16 14:55 20:50 20:50 Creatine Kinase 1471 H CK-MB (CK-2) 8.59 H 9.43 H Troponin I < 0.012 0.135 Impressions: Chest X-Ray 06/25/16 06:00 IMPRESSION: Nothing acute. Assessment & Plan - Diagnosis (1) Acute chronic obstructive pulmonary disease with respiratory distress Is this a current diagnosis for this admission?: Yes (2) Acute hypercapnic respiratory failure Is this a current diagnosis for this admission?: YesPlan: The above patient has failed BiPAP. This patient would benefit from noninvasive mechanical ventilation via the trilogy AVAPS/AE and faster responding AVAPS rates. The trilogy is able to provide a target tidal volume and also adjusting the EPAP pressures to maintain a patent airway as well as an oral backup rate this machine will help improve PaCO2 levels. The severity of the patient's condition will lead to future hospitalizations and readmissions as well as life-threatening situations without the use of this device trilogy home vent needed for hypercapnic respiratory failure. [facility] up (3) Obesity Is this a current diagnosis for this admission?: Yes
--- NOTE | 2016-06-25 18:57 | PDOC PROGRESS REPORT ---
Subjective Progress Note for:: 06/25/16 Subjective:: Patient was seen by the bedside, I spoke to Dr. mazariegos, pulmonary regarding this patient she we need noninvasive positive pressure ventilation with BiPAP/ trilogy both Medicaid insurance does not pay for these devices Physical Exam Vital Signs: Temp Pulse Resp BP Pulse Ox 99.0 F 86 18 121/55 L 96 06/25/16 11:55 06/25/16 14:00 06/25/16 11:56 06/25/16 11:55 06/25/16 11:56 Intake & Output 06/24/16 06/25/16 06/26/16 06:59 06:59 06:59 Intake Total 652 2602 1139 Output Total 600 2300 550 Balance 52 302 589 Weight 122.6 kg 121.9 kg General appearance: PRESENT: no acute distress Eye exam: PRESENT: PERRLA Respiratory exam: PRESENT: rhonchi Cardiovascular exam: PRESENT: +S1, +S2 GI/Abdominal exam: PRESENT: soft Neurological exam: PRESENT: alert Results Laboratory Results: 06/24/16 15:41 06/24/16 15:41 06/14/16 06/14/16 06/14/16 09:09 09:09 14:55 Creatine Kinase 1498 H 1404 H CK-MB (CK-2) 8.53 H Troponin I < 0.012 06/14/16 06/14/16 06/14/16 14:55 20:50 20:50 Creatine Kinase 1471 H CK-MB (CK-2) 8.59 H 9.43 H Troponin I < 0.012 0.135 Impressions: Chest X-Ray 06/25/16 06:00 IMPRESSION: Nothing acute. Assessment & Plan - Diagnosis (1) Acute hypercapnic respiratory failure Is this a current diagnosis for this admission?: Yes (2) Coronary artery disease Qualifiers: Coronary Disease-Associated Artery/Lesion type: [place] artery [place] vs. transplanted heart: [place] heart Associated angina: without angina Qualified Code(s): I25.10 - Atherosclerotic heart disease of [place] coronary artery without angina pectoris (3) Diabetes mellitus Qualifiers: Diabetes mellitus type: type 2 Diabetes mellitus complication status: with neurologic complications Diabetes mellitus complication detail: with polyneuropathy Is this a current diagnosis for this admission?: Yes (4) Acute exacerbation of chronic obstructive pulmonary disease (COPD) Is this a current diagnosis for this admission?: Yes (5) Elevated troponin Is this a current diagnosis for this admission?: Yes (6) E. coli UTI Is this a current diagnosis for this admission?: Yes
[2016-06-25] MEDS: ZOLPIDEM TARTRATE 5 MG TABLET PO PRN (21:17)
[2016-06-25] MEDS: ATORVASTATIN CALCIUM 40 MG TABLET PO SCH (21:17)
[2016-06-25] MEDS: CEFTRIAXONE 2 GM/D5W RTU 2 GM/50 ML RTUPB IV SCH (21:18)
[2016-06-26] MEDS: IPRATROPIUM/ALBUTEROL 0.5-2.5 MG/3 ML AMPUL NEB SCH ×6 (00:12→21:07)
[2016-06-26] MEDS: TRAMADOL HCL 50 MG TABLET PO PRN ×3 (03:40→22:16)
[2016-06-26] MEDS: BENZONATATE 100 MG CAPSULE PO SCH ×3 (05:20→21:46)
[2016-06-26] MEDS: GABAPENTIN 300 MG CAPSULE PO SCH ×3 (05:20→21:46)
[2016-06-26] MEDS: PRAMIPEXOLE DI-HCL 0.25 MG TABLET PO SCH ×3 (05:20→21:46)
[2016-06-26] MEDS: METHYLPREDNISOLONE INJ 40 MG/1 ML SDV IV SCH ×3 (05:20→21:46)
[2016-06-26] MEDS: METFORMIN HCL 500 MG TABLET PO SCH ×2 (08:15→15:50)
[2016-06-26] MEDS: INSULIN LISPRO 100 UNIT/ML 3 ML VIAL SUBCUT PRN ×2 (08:15→22:16)
[2016-06-26] MEDS: INSULIN DETEMIR 100 UNIT/ML 3 ML PEN SUBCUT SCH (08:15)
[2016-06-26] MEDS: METOPROLOL TARTRATE 25 MG TABLET PO SCH ×2 (10:04→21:56)
[2016-06-26] MEDS: SPIRONOLACTONE 25 MG TABLET PO SCH (10:04)
[2016-06-26] MEDS: MAGNESIUM OXIDE 400 MG TABLET PO SCH (10:04)
[2016-06-26] MEDS: ASPIRIN 81 MG TABLET, ENT COATED PO SCH (10:04)
[2016-06-26] MEDS: SACUBITRIL/VALSARTAN 24 MG/26 MG TABLET PO SCH ×2 (10:04→21:46)
[2016-06-26] MEDS: GUAIFENESIN 600 MG TABLET.SA PO SCH ×2 (10:04→21:46)
[2016-06-26] MEDS: DULOXETINE HCL 30 MG CAPSULE.DR PO SCH (10:04)
[2016-06-26] MEDS: LEVOFLOXACIN 750 MG TABLET PO SCH (10:04)
[2016-06-26] MEDS: FERROUS SULFATE 325 MG TABLET PO SCH (10:04)
[2016-06-26] MEDS: TIOTROPIUM BROMIDE DPI 5 CAP/KIT (18 MCG/CAP) IH SCH (10:04)
[2016-06-26] MEDS: CLOPIDOGREL BISULFATE 75 MG TABLET PO SCH (10:04)
[2016-06-26] MEDS: FLUTICASONE/SALMETEROL DISKUS 250-50 MCG/DOSE IH SCH ×2 (10:05→21:47)
[2016-06-26] MEDS: PIOGLITAZONE HCL 15 MG TABLET PO SCH (10:05)
[2016-06-26] MEDS ORDERED: OXYCODONE-ACETAMINOPHEN 5-325 MG TABLET ONE (11:07)
--- NOTE | 2016-06-26 11:24 | PDOC PROGRESS REPORT ---
Subjective Progress Note for:: 06/26/16 Subjective:: No complaints wearing BiPAP Physical Exam Vital Signs: Temp Pulse Resp BP Pulse Ox 98.3 F 83 18 129/58 H 98 06/26/16 07:39 06/26/16 08:31 06/26/16 08:31 06/26/16 07:39 06/26/16 08:31 Intake & Output 06/25/16 06/26/16 06/27/16 06:59 06:59 06:59 Intake Total 2602 2321 Output Total 2300 1950 Balance 302 371 Weight 121.9 kg 121.7 kg General appearance: PRESENT: cooperative, disheveled, obese, well-developed Head exam: PRESENT: atraumatic, normocephalic Eye exam: PRESENT: conjunctiva pale, EOMI Mouth exam: PRESENT: neck supple Neck exam: ABSENT: carotid bruit, JVD, lymphadenopathy, thyromegaly Respiratory exam: PRESENT: decreased breath sounds, prolonged expiratory phas, rhonchi, symmetrical, unlabored, wheezes Cardiovascular exam: PRESENT: RRR, +S1, +S2 Pulses: PRESENT: normal radial pulses GI/Abdominal exam: PRESENT: ascites Rectal exam: PRESENT: deferred Musculoskeletal exam: PRESENT: normal inspection Neurological exam: PRESENT: awake Psychiatric exam: PRESENT: normal mood Skin exam: PRESENT: dry, warm Results Laboratory Results: 06/24/16 15:41 06/24/16 15:41 06/14/16 06/14/16 06/14/16 09:09 09:09 14:55 Creatine Kinase 1498 H 1404 H CK-MB (CK-2) 8.53 H Troponin I < 0.012 06/14/16 06/14/16 06/14/16 14:55 20:50 20:50 Creatine Kinase 1471 H CK-MB (CK-2) 8.59 H 9.43 H Troponin I < 0.012 0.135 Impressions: Chest X-Ray 06/25/16 06:00 IMPRESSION: Nothing acute. Assessment & Plan - Diagnosis (1) Acute chronic obstructive pulmonary disease with respiratory distress Is this a current diagnosis for this admission?: Yes (2) Acute hypercapnic respiratory failure Is this a current diagnosis for this admission?: Yes (3) Obesity Is this a current diagnosis for this admission?: Yes - Time Time Spent with patient: 25-34 minutes
[2016-06-26] MEDS ORDERED: OXYCODONE-ACETAMINOPHEN 5-325 MG TABLET PO ONE (11:30)
--- NOTE | 2016-06-26 17:31 | PDOC PROGRESS REPORT ---
Subjective Subjective:: Patient fell off a bed last night, awaiting discharge home with BiPAP Physical Exam Vital Signs: Temp Pulse Resp BP Pulse Ox 98.4 F 83 20 105/56 L 97 06/26/16 11:23 06/26/16 15:58 06/26/16 15:58 06/26/16 11:23 06/26/16 15:58 Intake & Output 06/25/16 06/26/16 06/27/16 06:59 06:59 06:59 Intake Total 2602 2321 Output Total 2300 1950 Balance 302 371 Weight 121.9 kg 121.7 kg Eye exam: PRESENT: PERRLA Respiratory exam: PRESENT: rhonchi Cardiovascular exam: PRESENT: +S1, +S2 GI/Abdominal exam: PRESENT: soft Neurological exam: PRESENT: alert Skin exam: PRESENT: warm Results Laboratory Results: 06/24/16 15:41 06/24/16 15:41 06/14/16 06/14/16 06/14/16 09:09 09:09 14:55 Creatine Kinase 1498 H 1404 H CK-MB (CK-2) 8.53 H Troponin I < 0.012 06/14/16 06/14/16 06/14/16 14:55 20:50 20:50 Creatine Kinase 1471 H CK-MB (CK-2) 8.59 H 9.43 H Troponin I < 0.012 0.135 Impressions: Chest X-Ray 06/25/16 06:00 IMPRESSION: Nothing acute. Assessment & Plan - Diagnosis (1) Acute hypercapnic respiratory failure Is this a current diagnosis for this admission?: Yes (2) Coronary artery disease Qualifiers: Coronary Disease-Associated Artery/Lesion type: [place] artery [place] vs. transplanted heart: [place] heart Associated angina: without angina Qualified Code(s): I25.10 - Atherosclerotic heart disease of [place] coronary artery without angina pectoris (3) Diabetes mellitus Qualifiers: Diabetes mellitus type: type 2 Diabetes mellitus complication status: with neurologic complications Diabetes mellitus complication detail: with polyneuropathy Is this a current diagnosis for this admission?: Yes (4) Acute exacerbation of chronic obstructive pulmonary disease (COPD) Is this a current diagnosis for this admission?: Yes (5) Elevated troponin Is this a current diagnosis for this admission?: Yes (6) E. coli UTI Is this a current diagnosis for this admission?: Yes
[2016-06-26] MEDS ORDERED: NORMAL SALINE 1000 ML 1,000 ML IV PRN (19:43)
[2016-06-26] MEDS: ATORVASTATIN CALCIUM 40 MG TABLET PO SCH (21:46)
[2016-06-26] MEDS: CEFTRIAXONE 2 GM/D5W RTU 2 GM/50 ML RTUPB IV SCH (21:46)
[2016-06-26] MEDS: ZOLPIDEM TARTRATE 5 MG TABLET PO PRN (22:16)
[2016-06-27] MEDS: IPRATROPIUM/ALBUTEROL 0.5-2.5 MG/3 ML AMPUL NEB SCH ×6 (00:09→20:46)
[2016-06-27] MEDS: BENZONATATE 100 MG CAPSULE PO SCH ×3 (05:33→22:47)
[2016-06-27] MEDS: METHYLPREDNISOLONE INJ 40 MG/1 ML SDV IV SCH ×3 (05:33→23:35)
[2016-06-27] MEDS: GABAPENTIN 300 MG CAPSULE PO SCH ×3 (05:34→22:47)
[2016-06-27] MEDS: PRAMIPEXOLE DI-HCL 0.25 MG TABLET PO SCH ×2 (05:34→14:39)
[2016-06-27] MEDS: INSULIN LISPRO 100 UNIT/ML 3 ML VIAL SUBCUT PRN ×4 (08:10→22:49)
[2016-06-27] MEDS: METFORMIN HCL 500 MG TABLET PO SCH ×2 (08:10→16:14)
[2016-06-27] MEDS: INSULIN DETEMIR 100 UNIT/ML 3 ML PEN SUBCUT SCH (08:10)
[2016-06-27] MEDS: MAGNESIUM OXIDE 400 MG TABLET PO SCH (09:51)
[2016-06-27] MEDS: ASPIRIN 81 MG TABLET, ENT COATED PO SCH (09:51)
[2016-06-27] MEDS: CLOPIDOGREL BISULFATE 75 MG TABLET PO SCH (09:52)
[2016-06-27] MEDS: LEVOFLOXACIN 750 MG TABLET PO SCH (09:52)
[2016-06-27] MEDS: SPIRONOLACTONE 25 MG TABLET PO SCH (09:52)
[2016-06-27] MEDS: PIOGLITAZONE HCL 15 MG TABLET PO SCH (09:53)
[2016-06-27] MEDS: GUAIFENESIN 600 MG TABLET.SA PO SCH ×2 (09:53→22:46)
[2016-06-27] MEDS: DULOXETINE HCL 30 MG CAPSULE.DR PO SCH (09:55)
[2016-06-27] MEDS: FERROUS SULFATE 325 MG TABLET PO SCH (09:55)
[2016-06-27] MEDS: TRAMADOL HCL 50 MG TABLET PO PRN ×3 (09:56→22:50)
[2016-06-27] MEDS: FLUTICASONE/SALMETEROL DISKUS 250-50 MCG/DOSE IH SCH ×2 (09:57→22:47)
[2016-06-27] MEDS: TIOTROPIUM BROMIDE DPI 5 CAP/KIT (18 MCG/CAP) IH SCH (10:00)
[2016-06-27] MEDS: SACUBITRIL/VALSARTAN 24 MG/26 MG TABLET PO SCH ×2 (10:01→22:46)
[2016-06-27] MEDS: METOPROLOL TARTRATE 25 MG TABLET PO SCH ×2 (10:01→22:48)
--- NOTE | 2016-06-27 11:53 | PDOC PROGRESS REPORT ---
Subjective Progress Note for:: 06/27/16 Subjective:: Without complaints Physical Exam Vital Signs: Temp Pulse Resp BP Pulse Ox 98.3 F 89 20 119/47 L 97 06/27/16 07:29 06/27/16 08:51 06/27/16 08:51 06/27/16 07:29 06/27/16 08:51 Intake & Output 06/26/16 06/27/16 06/28/16 06:59 06:59 06:59 Intake Total 2321 2806 Output Total 1572 2500 Balance 371 306 Weight 121.7 kg 123.1 kg General appearance: PRESENT: cooperative, disheveled, morbidly obese, well- nourished Head exam: PRESENT: atraumatic, normocephalic Eye exam: PRESENT: conjunctiva pale, EOMI Mouth exam: PRESENT: moist, neck supple Neck exam: ABSENT: carotid bruit, JVD, lymphadenopathy, thyromegaly Respiratory exam: PRESENT: decreased breath sounds, prolonged expiratory phas, rhonchi, symmetrical, unlabored Cardiovascular exam: PRESENT: RRR, +S1, +S2 Pulses: PRESENT: normal radial pulses GI/Abdominal exam: PRESENT: normal bowel sounds, soft. ABSENT: distended, guarding, mass, organolmegaly, rebound, tenderness Rectal exam: PRESENT: deferred Neurological exam: PRESENT: alert, awake Psychiatric exam: PRESENT: normal mood Skin exam: PRESENT: dry, warm Results Laboratory Results: 06/24/16 15:41 06/24/16 15:41 06/14/16 06/14/16 06/14/16 09:09 09:09 14:55 Creatine Kinase 1498 H 1404 H CK-MB (CK-2) 8.53 H Troponin I < 0.012 06/14/16 06/14/16 06/14/16 14:55 20:50 20:50 Creatine Kinase 1471 H CK-MB (CK-2) 8.59 H 9.43 H Troponin I < 0.012 0.135 Impressions: Chest X-Ray 06/25/16 06:00 IMPRESSION: Nothing acute. Assessment & Plan - Diagnosis (1) Acute chronic obstructive pulmonary disease with respiratory distress Is this a current diagnosis for this admission?: YesPlan: AVAPS settings, tidal volume 500ml EPAP 6cm P minimum 6 cm P maximum 14 cm rise time 2 Inspiratory time 1 FiO2 30% (2) Acute hypercapnic respiratory failure Is this a current diagnosis for this admission?: YesPlan: BI-PAP S/T I=16 E=8 back-up rate 10 patient would be better if she was able to use a trilogy however this is not covered under Medicaid (3) Obesity Is this a current diagnosis for this admission?: Yes
--- NOTE | 2016-06-27 20:29 | PDOC PROGRESS REPORT ---
Subjective Progress Note for:: 06/27/16 Subjective:: Patient was seen by the bedside, she has very severe COPD and she needed to be discharged home on trilogy but Medicaid does not pay for this device, the plan is to discharge her home for outpatient sleep study and hopefully she will qualified for BiPAP Physical Exam Vital Signs: Temp Pulse Resp BP Pulse Ox 99.0 F 85 20 107/53 L 96 06/27/16 15:12 06/27/16 16:01 06/27/16 16:01 06/27/16 15:12 06/27/16 16:01 Intake & Output 06/26/16 06/27/16 06/28/16 06:59 06:59 06:59 Intake Total 2321 2806 961 Output Total 1950 2500 0 Balance 371 306 961 Weight 121.7 kg 123.1 kg General appearance: PRESENT: no acute distress Eye exam: PRESENT: PERRLA Respiratory exam: PRESENT: clear to auscultation rolf Cardiovascular exam: PRESENT: +S1, +S2 GI/Abdominal exam: PRESENT: soft Neurological exam: PRESENT: alert, CN II-XII grossly intact Results Laboratory Results: 06/24/16 15:41 06/24/16 15:41 06/14/16 06/14/16 06/14/16 09:09 09:09 14:55 Creatine Kinase 1498 H 1404 H CK-MB (CK-2) 8.53 H Troponin I < 0.012 06/14/16 06/14/16 06/14/16 14:55 20:50 20:50 Creatine Kinase 1471 H CK-MB (CK-2) 8.59 H 9.43 H Troponin I < 0.012 0.135 Impressions: Chest X-Ray 06/25/16 06:00 IMPRESSION: Nothing acute. Assessment & Plan - Diagnosis (1) Acute hypercapnic respiratory failure Is this a current diagnosis for this admission?: Yes (2) Coronary artery disease Qualifiers: Coronary Disease-Associated Artery/Lesion type: [place] artery [place] vs. transplanted heart: [place] heart Associated angina: without angina Qualified Code(s): I25.10 - Atherosclerotic heart disease of [place] coronary artery without angina pectoris (3) Diabetes mellitus Qualifiers: Diabetes mellitus type: type 2 Diabetes mellitus complication status: with neurologic complications Diabetes mellitus complication detail: with polyneuropathy Is this a current diagnosis for this admission?: Yes (4) Acute exacerbation of chronic obstructive pulmonary disease (COPD) Is this a current diagnosis for this admission?: Yes (5) Elevated troponin Is this a current diagnosis for this admission?: Yes (6) E. coli UTI Is this a current diagnosis for this admission?: Yes
[2016-06-27] MEDS: ATORVASTATIN CALCIUM 40 MG TABLET PO SCH (22:46)
[2016-06-27] MEDS: CEFTRIAXONE 2 GM/D5W RTU 2 GM/50 ML RTUPB IV SCH (23:34)
[2016-06-28] MEDS: IPRATROPIUM/ALBUTEROL 0.5-2.5 MG/3 ML AMPUL NEB SCH ×6 (00:09→21:09)
[2016-06-28] MEDS ORDERED: PRAMIPEXOLE DI-HCL 0.25 MG TABLET ONE ×2 (00:29→03:31)
[2016-06-28] MEDS: PRAMIPEXOLE DI-HCL 0.25 MG TABLET PO SCH ×4 (00:42→21:20)
[2016-06-28] MEDS: ZOLPIDEM TARTRATE 5 MG TABLET PO PRN ×2 (03:11→22:43)
[2016-06-28] MEDS: TRAMADOL HCL 50 MG TABLET PO PRN ×3 (05:38→22:43)
[2016-06-28] MEDS: METHYLPREDNISOLONE INJ 40 MG/1 ML SDV IV SCH ×3 (05:38→21:22)
[2016-06-28] MEDS: BENZONATATE 100 MG CAPSULE PO SCH ×3 (05:39→21:21)
[2016-06-28] MEDS: GABAPENTIN 300 MG CAPSULE PO SCH ×3 (05:39→21:20)
[2016-06-28] MEDS: INSULIN DETEMIR 100 UNIT/ML 3 ML PEN SUBCUT SCH (08:20)
[2016-06-28] MEDS: INSULIN LISPRO 100 UNIT/ML 3 ML VIAL SUBCUT PRN ×4 (08:20→22:41)
[2016-06-28] MEDS: METFORMIN HCL 500 MG TABLET PO SCH ×2 (08:20→17:17)
[2016-06-28] MEDS: PIOGLITAZONE HCL 15 MG TABLET PO SCH (11:09)
[2016-06-28] MEDS: FERROUS SULFATE 325 MG TABLET PO SCH (11:09)
[2016-06-28] MEDS: MAGNESIUM OXIDE 400 MG TABLET PO SCH (11:10)
[2016-06-28] MEDS: METOPROLOL TARTRATE 25 MG TABLET PO SCH ×2 (11:10→21:20)
[2016-06-28] MEDS: GUAIFENESIN 600 MG TABLET.SA PO SCH ×2 (11:12→21:20)
[2016-06-28] MEDS: ASPIRIN 81 MG TABLET, ENT COATED PO SCH (11:13)
[2016-06-28] MEDS: SPIRONOLACTONE 25 MG TABLET PO SCH (11:14)
[2016-06-28] MEDS: SACUBITRIL/VALSARTAN 24 MG/26 MG TABLET PO SCH ×2 (11:14→21:20)
[2016-06-28] MEDS: TIOTROPIUM BROMIDE DPI 5 CAP/KIT (18 MCG/CAP) IH SCH (11:15)
[2016-06-28] MEDS: FLUTICASONE/SALMETEROL DISKUS 250-50 MCG/DOSE IH SCH ×2 (11:15→21:21)
[2016-06-28] MEDS: CLOPIDOGREL BISULFATE 75 MG TABLET PO SCH (11:17)
[2016-06-28] MEDS: DULOXETINE HCL 30 MG CAPSULE.DR PO SCH (11:18)
--- NOTE | 2016-06-28 18:31 | PDOC PROGRESS REPORT ---
Subjective Progress Note for:: 06/28/16 Subjective:: Patient is seen by the bedside, she hopefully will go home tomorrow on BiPAP. Physical Exam Vital Signs: Temp Pulse Resp BP Pulse Ox 98.6 F 89 20 105/49 L 99 06/28/16 15:43 06/28/16 16:37 06/28/16 16:37 06/28/16 15:43 06/28/16 16:37 Intake & Output 06/27/16 06/28/16 06/29/16 06:59 06:59 06:59 Intake Total 2806 2411 1414 Output Total 2500 675 1300 Balance 306 1736 114 Weight 123.1 kg 121.5 kg General appearance: PRESENT: no acute distress Eye exam: PRESENT: PERRLA Respiratory exam: PRESENT: clear to auscultation rolf Cardiovascular exam: PRESENT: +S1, +S2 GI/Abdominal exam: PRESENT: soft Neurological exam: PRESENT: alert, CN II-XII grossly intact Results Laboratory Results: 06/24/16 15:41 06/24/16 15:41 06/14/16 06/14/16 06/14/16 09:09 09:09 14:55 Creatine Kinase 1498 H 1404 H CK-MB (CK-2) 8.53 H Troponin I < 0.012 06/14/16 06/14/16 06/14/16 14:55 20:50 20:50 Creatine Kinase 1471 H CK-MB (CK-2) 8.59 H 9.43 H Troponin I < 0.012 0.135 Impressions: Chest X-Ray 06/25/16 06:00 IMPRESSION: Nothing acute. Assessment & Plan - Diagnosis (1) Acute hypercapnic respiratory failure Is this a current diagnosis for this admission?: Yes (2) Coronary artery disease Qualifiers: Coronary Disease-Associated Artery/Lesion type: [place] artery [place] vs. transplanted heart: [place] heart Associated angina: without angina Qualified Code(s): I25.10 - Atherosclerotic heart disease of [place] coronary artery without angina pectoris (3) Diabetes mellitus Qualifiers: Diabetes mellitus type: type 2 Diabetes mellitus complication status: with neurologic complications Diabetes mellitus complication detail: with polyneuropathy Is this a current diagnosis for this admission?: Yes (4) Acute exacerbation of chronic obstructive pulmonary disease (COPD) Is this a current diagnosis for this admission?: Yes (5) Elevated troponin Is this a current diagnosis for this admission?: Yes (6) E. coli UTI Is this a current diagnosis for this admission?: Yes
[2016-06-28] MEDS: ATORVASTATIN CALCIUM 40 MG TABLET PO SCH (21:21)
[2016-06-29] MEDS: IPRATROPIUM/ALBUTEROL 0.5-2.5 MG/3 ML AMPUL NEB SCH ×7 (00:11→23:58)
[2016-06-29] MEDS: GABAPENTIN 300 MG CAPSULE PO SCH ×3 (05:12→22:09)
[2016-06-29] MEDS: BENZONATATE 100 MG CAPSULE PO SCH ×3 (05:12→22:10)
[2016-06-29] MEDS: METHYLPREDNISOLONE INJ 40 MG/1 ML SDV IV SCH (05:12)
[2016-06-29] MEDS: PRAMIPEXOLE DI-HCL 0.25 MG TABLET PO SCH ×3 (05:12→22:12)
[2016-06-29] MEDS: INSULIN LISPRO 100 UNIT/ML 3 ML VIAL SUBCUT PRN ×4 (07:53→22:11)
[2016-06-29] MEDS: INSULIN DETEMIR 100 UNIT/ML 3 ML PEN SUBCUT SCH (07:54)
[2016-06-29] MEDS: METFORMIN HCL 500 MG TABLET PO SCH ×2 (07:57→17:50)
--- NOTE | 2016-06-29 09:44 | PDOC PROGRESS REPORT ---
Subjective Progress Note for:: 06/28/16 Subjective:: feeling a little better Without complaints Physical Exam Vital Signs: Temp Pulse Resp BP Pulse Ox 98.6 F 95 21 H 141/63 H 97 06/28/16 08:26 06/28/16 08:26 06/28/16 08:26 06/28/16 08:26 06/28/16 08:26 Intake & Output 06/27/16 06/28/16 06/29/16 06:59 06:59 06:59 Intake Total 2806 2411 Output Total 5098 675 Balance 306 1736 Weight 123.1 kg 121.5 kg General appearance: PRESENT: no acute distress, disheveled, morbidly obese, well -developed Head exam: PRESENT: atraumatic, normocephalic Eye exam: PRESENT: conjunctiva pale, EOMI Mouth exam: PRESENT: dry mucosa, neck supple Neck exam: PRESENT: carotid bruit Respiratory exam: PRESENT: decreased breath sounds, prolonged expiratory phas, rhonchi, symmetrical, unlabored, wheezes Cardiovascular exam: PRESENT: RRR, +S1, +S2 Pulses: PRESENT: normal radial pulses GI/Abdominal exam: PRESENT: normal bowel sounds, soft. ABSENT: distended, guarding, mass, organolmegaly, rebound, tenderness Rectal exam: PRESENT: deferred Extremities exam: PRESENT: +1 edema Neurological exam: PRESENT: awake Psychiatric exam: PRESENT: normal mood Skin exam: PRESENT: dry, warm Results Laboratory Results: 06/24/16 15:41 06/24/16 15:41 06/14/16 06/14/16 06/14/16 09:09 09:09 14:55 Creatine Kinase 1498 H 1404 H CK-MB (CK-2) 8.53 H Troponin I < 0.012 06/14/16 06/14/16 06/14/16 14:55 20:50 20:50 Creatine Kinase 1471 H CK-MB (CK-2) 8.59 H 9.43 H Troponin I < 0.012 0.135 Impressions: Chest X-Ray 06/25/16 06:00 IMPRESSION: Nothing acute. Assessment & Plan - Diagnosis (1) Acute chronic obstructive pulmonary disease with respiratory distress Is this a current diagnosis for this admission?: Yes (2) Acute hypercapnic respiratory failure Is this a current diagnosis for this admission?: Yes (3) Obesity Is this a current diagnosis for this admission?: Yes
[2016-06-29] MEDS: CLOPIDOGREL BISULFATE 75 MG TABLET PO SCH (10:36)
[2016-06-29] MEDS: ASPIRIN 81 MG TABLET, ENT COATED PO SCH (10:36)
[2016-06-29] MEDS: TRAMADOL HCL 50 MG TABLET PO PRN ×2 (10:36→22:17)
[2016-06-29] MEDS: FLUTICASONE/SALMETEROL DISKUS 250-50 MCG/DOSE IH SCH ×2 (10:37→22:11)
[2016-06-29] MEDS: SACUBITRIL/VALSARTAN 24 MG/26 MG TABLET PO SCH ×2 (10:37→22:11)
[2016-06-29] MEDS: SPIRONOLACTONE 25 MG TABLET PO SCH (10:37)
[2016-06-29] MEDS: GUAIFENESIN 600 MG TABLET.SA PO SCH ×2 (10:37→22:10)
[2016-06-29] MEDS: TIOTROPIUM BROMIDE DPI 5 CAP/KIT (18 MCG/CAP) IH SCH (10:37)
[2016-06-29] MEDS: PIOGLITAZONE HCL 15 MG TABLET PO SCH (10:37)
[2016-06-29] MEDS: FERROUS SULFATE 325 MG TABLET PO SCH (10:37)
[2016-06-29] MEDS: DULOXETINE HCL 30 MG CAPSULE.DR PO SCH (10:37)
[2016-06-29] MEDS: MAGNESIUM OXIDE 400 MG TABLET PO SCH (10:37)
[2016-06-29] MEDS: METOPROLOL TARTRATE 25 MG TABLET PO SCH ×2 (10:38→22:09)
--- NOTE | 2016-06-29 11:31 | PDOC DISCHARGE SUMMARY ---
General - Admit/Disc Date/PCP Admission Date/Primary Care Provider: 06/14/16 03:21 Discharge Date: 06/29/16 - Discharge Diagnosis (1) Acute hypercapnic respiratory failure Is this a current diagnosis for this admission?: Yes (3) Diabetes mellitus Is this a current diagnosis for this admission?: Yes (4) Acute exacerbation of chronic obstructive pulmonary disease (COPD) Is this a current diagnosis for this admission?: Yes (5) Elevated troponin Is this a current diagnosis for this admission?: Yes (6) E. coli UTI Is this a current diagnosis for this admission?: Yes - Additional Information Resuscitation Status: Full Code Discharge Diet: Regular, Diabetic Discharge Activity: Activity As Tolerated Home Medications: Aspirin [Ecotrin 81 mg EC Tablet] 81 mg PO DAILY 05/18/16 Clopidogrel Bisulfate [Plavix 75 mg Tablet] 75 mg PO DAILY 05/18/16 Duloxetine HCl [Cymbalta] 60 mg PO DAILY 05/18/16 Magnesium Oxide [Mag-Ox 400 mg Tablet] 400 mg PO DAILY 05/18/16 Melatonin 6 mg PO QHS 05/18/16 Ferrous Sulfate [Iron] 325 mg PO DAILY 06/14/16 Fluticasone/Salmeterol [Advair 250-50 Diskus 28 dose] 1 inh IH Q12 06/14/16 Gabapentin 900 mg PO TID 06/14/16 Ondansetron HCl [Zofran 8 mg Tablet] 8 mg PO Q8HP PRN 06/14/16 Albuterol Sulfate [Proair HFA] 2 puff IH Q4HP PRN #4 [email or web address] 06/29/16 Atorvastatin Calcium [Lipitor 40 mg Tablet] 40 mg PO QHS #90 tablet 06/29/16 Insulin Detemir [Levemir Flextouch] 15 units SQ QAM #2 ml 06/29/16 Metformin HCl [Metformin HCl ER] 500 mg PO WSUPPER #30 [id number] 06/29/16 Metoprolol Tartrate 12.5 mg PO BID #60 tablet 06/29/16 Pioglitazone HCl [Actos] 45 mg PO DAILY #30 tablet 06/29/16 Pramipexole Di-HCl [Mirapex] 0.125 mg PO TID #90 tablet 06/29/16 Sacubitril/Valsartan [Entresto 24 mg-26 mg Tablet] 1 each PO Q12 #60 tablet Spironolactone [Aldactone 25 mg Tablet] 25 mg PO DAILY #30 tablet 06/29/16 Tiotropium [place] [Spiriva Handihaler 18 mcg/dose (30 Dose)] 1 cap IH DAILY # 30 cap.w.dev 06/29/16 Tramadol HCl [Ultram 50 mg Tablet] 50 mg PO Q6HP PRN #120 tablet 06/29/16 History of Present Illness History of Present Illness: TORREY MARKS is a 65 year old female, with multiple comorbid conditions, multiple hospitalization, she came to the emergency room earlier this morning because of respiratory distress due to acute COPD exacerbation, she was treated with IV Solu-Medrol bronchodilators and noninvasive positive pressure ventilation, BiPAP machine she was also found to have a fever with temperature 101.3. Hospital Course Hospital Course: Patient with multiple comorbid conditions, she was admitted because of acute COPD exacerbation and also concern for pneumonia. Pneumonia was ruled out as a cause of respiratory symptoms, she was treated with IV Solu-Medrol, IV antibiotics, bronchodilators. She has chronic respiratory failure due to COPD, she required noninvasive positive pressure ventilation with BiPAP machine for the most part of hospital stay. She was seen by pulmonary Dr. Curseen was suggested that patient should have noninvasive positive pressure ventilation with trilogy, attempt was made to arrange for patient to be discharged home with his device but Medicaid does not pay for it. She will obtain outpatient sleep study and hopefully she will qualify for the BiPAP machine. She also had elevated troponin, marginally this was thought to be due to the COPD are not from non[facility]. She also had E. coli UTI that was treated with IV antibiotic. She fell off a bed couple of nights ago when she attempted to transfer herself from the bed to the commode. There was no fracture, x-ray was done, the incident was documented by the nursing staff and patient subsequently did not sustain any injury as a result of the fall. ABG that was done was consistent with permissive hypercapnia with metabolic compensation she will be discharged home today Physical Exam Vital Signs: Temp Pulse Resp BP Pulse Ox 98.3 F 80 16 115/67 95 06/29/16 08:00 06/29/16 08:51 06/29/16 08:51 06/29/16 08:00 06/29/16 08:51 Intake & Output 06/28/16 06/29/16 06/30/16 06:59 06:59 06:59 Intake Total 2418 3544 Output Total 161 8700 Balance 1736 714 Weight 121.5 kg 120.5 kg General appearance: PRESENT: no acute distress, well-developed, well-nourished Head exam: PRESENT: atraumatic, normocephalic Eye exam: PRESENT: conjunctiva pink, EOMI, PERRLA Ear exam: PRESENT: normal external ear exam Mouth exam: PRESENT: moist, tongue midline Neck exam: PRESENT: full ROM Cardiovascular exam: PRESENT: RRR, +S1, +S2 Pulses: PRESENT: normal [place]alis pedis pul, +2 pedal pulses bilateral Vascular exam: PRESENT: normal capillary refill GI/Abdominal exam: PRESENT: normal bowel sounds, soft Rectal exam: PRESENT: deferred Neurological exam: PRESENT: alert, awake, oriented to person, oriented to place , oriented to time, oriented to situation, CN II-XII grossly intact. ABSENT: motor sensory deficit Psychiatric exam: PRESENT: appropriate affect, normal mood Skin exam: PRESENT: dry, intact, warm Results Laboratory Results: 06/24/16 15:41 06/24/16 15:41 06/14/16 06/14/16 06/14/16 09:09 09:09 14:55 Creatine Kinase 1498 H 1404 H CK-MB (CK-2) 8.53 H Troponin I < 0.012 06/14/16 06/14/16 06/14/16 14:55 20:50 20:50 Creatine Kinase 1471 H CK-MB (CK-2) 8.59 H 9.43 H Troponin I < 0.012 0.135 Impressions: Chest X-Ray 06/25/16 06:00 IMPRESSION: Nothing acute.
[2016-06-29] MEDS: ATORVASTATIN CALCIUM 40 MG TABLET PO SCH (22:11)
[2016-06-29] MEDS: ZOLPIDEM TARTRATE 5 MG TABLET PO PRN (22:17)
[2016-06-30] MEDS: IPRATROPIUM/ALBUTEROL 0.5-2.5 MG/3 ML AMPUL NEB SCH ×2 (04:28→08:54)
[2016-06-30] MEDS: GABAPENTIN 300 MG CAPSULE PO SCH (05:22)
[2016-06-30] MEDS: BENZONATATE 100 MG CAPSULE PO SCH (05:22)
[2016-06-30] MEDS: PRAMIPEXOLE DI-HCL 0.25 MG TABLET PO SCH (05:22)
[2016-06-30] MEDS: INSULIN DETEMIR 100 UNIT/ML 3 ML PEN SUBCUT SCH (08:04)
[2016-06-30] MEDS: INSULIN LISPRO 100 UNIT/ML 3 ML VIAL SUBCUT PRN (08:05)
[2016-06-30] MEDS: METFORMIN HCL 500 MG TABLET PO SCH (08:05)
[2016-06-30] MEDS: CLOPIDOGREL BISULFATE 75 MG TABLET PO SCH (09:58)
[2016-06-30] MEDS: ASPIRIN 81 MG TABLET, ENT COATED PO SCH (09:58)
[2016-06-30] MEDS: MAGNESIUM OXIDE 400 MG TABLET PO SCH (09:58)
[2016-06-30] MEDS: FLUTICASONE/SALMETEROL DISKUS 250-50 MCG/DOSE IH SCH (09:59)
[2016-06-30] MEDS: PIOGLITAZONE HCL 15 MG TABLET PO SCH (09:59)
[2016-06-30] MEDS: GUAIFENESIN 600 MG TABLET.SA PO SCH (09:59)
[2016-06-30] MEDS: FERROUS SULFATE 325 MG TABLET PO SCH (09:59)
[2016-06-30] MEDS: DULOXETINE HCL 30 MG CAPSULE.DR PO SCH (09:59)
[2016-06-30] MEDS: SACUBITRIL/VALSARTAN 24 MG/26 MG TABLET PO SCH (10:02)
[2016-06-30 10:12] VITALS: BP 131/80
== END 2016-06-30 10:46 | disposition home or self-care (01) | DRG 190 ==
LOC: ER 20:26 → UNDOADMIN 06-14 00:02 → EH 06-14 00:02 → 3S 06-14 03:21 → EH 06-14 04:13 → 3S 06-14 04:13
PROVIDERS: ADMIT Internal Medicine; ATTEND Internal Medicine
PROC: 5A09557 Assistance with Respiratory Ventilation, Greater than 96 Consecutive Hours, Continuous Positive Airway Pressure (ICD-10-PCS; principal; 2016-06-14)
DX: J44.1 Chronic obstructive pulmonary disease with (acute) exacerbation (principal); J96.02 Acute respiratory failure with hypercapnia; N39.0 Urinary tract infection, site not specified; Z68.41 Body mass index [BMI] 40.0-44.9, adult; I25.10 Atherosclerotic heart disease of native coronary artery without angina pectoris; E11.42 Type 2 diabetes mellitus with diabetic polyneuropathy; E78.5 Hyperlipidemia, unspecified; I10 Essential (primary) hypertension; M19.90 Unspecified osteoarthritis, unspecified site; M79.7 Fibromyalgia; B96.20 Unspecified Escherichia coli [E. coli] as the cause of diseases classified elsewhere; E66.9 Obesity, unspecified; F32.9 Major depressive disorder, single episode, unspecified; G43.909 Migraine, unspecified, not intractable, without status migrainosus; R79.89 Other specified abnormal findings of blood chemistry; E11.51 Type 2 diabetes mellitus with diabetic peripheral angiopathy without gangrene; Z16.23 Resistance to quinolones and fluoroquinolones; Z79.84 Long term (current) use of oral hypoglycemic drugs; Z79.82 Long term (current) use of aspirin; Z79.899 Other long term (current) drug therapy; Z86.14 Personal history of Methicillin resistant Staphylococcus aureus infection; Z90.49 Acquired absence of other specified parts of digestive tract; Z90.710 Acquired absence of both cervix and uterus; Z95.5 Presence of coronary angioplasty implant and graft; Z88.8 Allergy status to other drugs, medicaments and biological substances; Z88.6 Allergy status to analgesic agent; Z87.891 Personal history of nicotine dependence; Z79.4 Long term (current) use of insulin
CPT/HCPCS: 36415; 36600; 71010; 80048; 80053; 81001; 82550; 82553; 82803; 82962; 83880; 84484; 85025; 87040; 87086; 87088; 87186; 93005; 93010; 94640; 94660; 94667; 96365; 96375; 99291; J0696; J1815; J2270; J2920; J2930; J3490; J7620; S0119

== ENCOUNTER 2016-08-23 06:59 | Inpatient (IN) | payer MEDICAID ==
[2016-08-23] MEDS ORDERED: IPRATROPIUM/ALBUTEROL 0.5-2.5 MG/3 ML AMPUL NEB ONE ×2 (07:02)
[2016-08-23] MEDS ORDERED: METHYLPREDNISOLONE INJ 125 MG/2 ML SDV IV ONE (07:02)
[2016-08-23] MEDS ORDERED: METHYLPREDNISOLONE INJ 125 MG/2 ML SDV ONE (07:04)
[2016-08-23 07:29] LABS: ABSOLUTE BASOPHILS # (AUTO) 0.1 10^3/uL (0.0-0.2); ABSOLUTE EOSINOPHILS # (AUTO) 0.3 10^3/uL (0.0-0.6); ABSOLUTE MONOCYTES (AUTO) 0.7 10^3/uL (0.1-1.4); ABSOLUTE NEUT (AUTO) 7.3 10^3/uL (1.7-8.2); BASOPHILS % (AUTO) 0.6 % (0-2); EOSINOPHILS % (AUTO) 3.2 % (0-6); HEMATOCRIT 35.5 % (36.0-47.0); HEMOGLOBIN 11.1 g/dL (12.0-15.5); HGB HCT DIFFERENCE -2.2; LYMPHOCYTES % (AUTO) 10.7 % (13-45); MEAN CORPUSCULAR HEMOGLOBIN 29.7 pg (27.0-33.4); MEAN CORPUSCULAR HGB CONC 31.3 g/dL (32.0-36.0); MEAN CORPUSCULAR VOLUME 95 fl (80-97); MONOCYTES % (AUTO) 7.7 % (3-13); RED BLOOD COUNT 3.73 10^6/uL (3.72-5.28); RED CELL DISTRIBUTION WIDTH 15.7 % (11.5-14.0); SEGMENTED NEUTROPHILS % (AUTO) 77.8 % (42-78); WHITE BLOOD COUNT 9.3 10^3/uL (4.0-10.5)
--- NOTE | 2016-08-23 07:32 | RADIOLOGY REPORT (SQ) ---
EXAM DESCRIPTION: CHEST SINGLE VIEW COMPLETED DATE/TIME: 08/23/2016 7:22 am REASON FOR STUDY: copd , hypoxemia COMPARISON: 06/25/2016. EXAM PARAMETERS: NUMBER OF VIEWS: One view. TECHNIQUE: Single frontal radiographic view of the chest acquired. RADIATION DOSE: NA LIMITATIONS: None. FINDINGS: LUNGS AND PLEURA: Prominent interstitium, chronic. MEDIASTINUM AND HILAR STRUCTURES: No masses. Contour normal. HEART AND VASCULAR STRUCTURES: Heart normal in size. Normal vasculature. BONES: No acute findings. HARDWARE: None in the chest. OTHER: No other significant finding. IMPRESSION: No acute cardiopulmonary findings. TECHNICAL DOCUMENTATION: JOB ID: [id number]
[2016-08-23] MEDS ORDERED: HYDROCODONE/ACETAMINOPHEN 5-325 MG TABLET PO ONE (08:09)
--- NOTE | 2016-08-23 08:16 | EKG REPORT ---
SEVERITY:- ABNORMAL ECG - SINUS RHYTHM PROBABLE LEFT ATRIAL ABNORMALITY LEFT BUNDLE BRANCH BLOCK : Confirmed by: Kg Small MD 23-Aug-2016 08:15:37
--- NOTE | 2016-08-23 08:47 | ER Document Report ---
ED General - General Chief Complaint: Shortness Of Breath Stated Complaint: DIFFICULTY BREATHING Time Seen by Provider: 08/23/16 07:01 Mode of Arrival: Medic Information source: Patient, Emergency Med Personnel Cannot obtain history due to: Unstable vital signs Notes: 65 yr old female hx of copd , smoker presents hypoxic found satting 70s on her home O2. Pt denies any fevers or productive cough. pt started on cpap by EMS and given duo neb prior to arrival. TRAVEL OUTSIDE OF THE [place] IN LAST 30 DAYS: No - HPI Onset: This morning Onset/Duration: Sudden Quality of pain: Achy Severity: Mild Pain Level: 1 Associated symptoms: Chest pain, Nonproductive cough, Shortness of breath Exacerbated by: Walking, Coughing Relieved by: Denies Similar symptoms previously: Yes Recently seen / treated by doctor: Yes - Related Data Allergies/Adverse Reactions: codeine [Codeine] Adverse Reaction (Unknown, Verified 08/23/16 08:03) Home Medications: Current Home Medications Albuterol Sulfate [Proair HFA] 2 puff IH Q4 PRN 08/23/16 [History] Atorvastatin Calcium [Lipitor 40 mg Tablet] 40 mg PO QHS 08/23/16 [History] Ferrous Sulfate [Iron] 325 mg PO DAILY 08/23/16 [History] Fluticasone/Salmeterol [Advair 250-50 Diskus 14 Dose/Diskus] 1 inh IH Q12 [History] Gabapentin [Neurontin 300 mg Capsule] 900 mg PO Q8 08/23/16 [History] Metformin HCl [Metformin HCl ER] 500 mg PO QPM 08/23/16 [History] Metoprolol Tartrate [Lopressor 25 mg Tablet] 12.5 mg PO Q12 08/23/16 [History] Pioglitazone HCl [Actos] 45 mg PO DAILY 08/23/16 [History] Pramipexole Di-HCl [Mirapex] 0.125 mg PO Q8 08/23/16 [History] Sacubitril/Valsartan [Entresto 24 mg-26 mg Tablet] 1 tab PO Q12 08/23/16 [ History] Tiotropium [place] [Spiriva Handihaler 5 Cap/Kit (18 Mcg/Cap)] 1 cap IH DAILY [History] Tramadol HCl/Acetaminophen [Ultracet Tablet] 1 tab PO Q6HP PRN 08/23/16 [History ] Past Medical History - Social History Smoking Status: Former Smoker Cigarette use (# per day): No Chew tobacco use (# tins/day): No Smoking Education Provided: No Frequency of alcohol use: None Drug Abuse: None Family History: Hypertension, Other - Alzheimer's, renal failure - Past Medical History Cardiac Medical History: Reports: Hx Congestive Heart Failure, Hx Coronary Artery Disease, Hx Hypercholesterolemia, Hx Hypertension, Hx Peripheral Vascular Disease Denies: Hx Heart Murmur Pulmonary Medical History: Reports: Hx Asthma, Hx Bronchitis, Hx COPD, Hx Respiratory Failure, Hx Sleep Apnea Denies: Hx Tuberculosis Neurological Medical History: Reports: Hx Migraine. Denies: Hx Seizures Endocrine Medical History: Reports: Hx Diabetes Mellitus Type 1, Hx Diabetes Mellitus Type 2 Renal/ Medical History: Reports: Hx Ovarian Cysts Malignancy Medical History: GI Medical History: Reports: Hx Gastritis, Hx Ulcer Musculoskeltal Medical History: Reports Hx Arthritis, Reports Hx Fibromyalgia, Reports Hx Musculoskeletal Deformity, Reports Hx Musculoskeletal Trauma Psychiatric Medical History: Reports: Hx Anxiety, Hx Depression Denies: Hx Attention Deficit Hyperactivity Disorder Traumatic Medical History: Reports: Hx Fractures - pinkie finger Infectious Medical History: Reports: Hx C-Diff, Hx MRSA Past Surgical History: Reports: Hx Appendectomy, Hx Cardiac Catheterization, Hx Cholecystectomy, Hx Coronary Stent, Hx Hysterectomy, Hx Orthopedic Surgery - right shoulder, Hx Tubal Ligation, Hx Vascular Surgery - Immunizations Immunizations up to date: Yes Hx Diphtheria, Pertussis, Tetanus Vaccination: Yes Hx Pneumococcal Vaccination: 02/17/10 Review of Systems - Review of Systems Notes: REVIEW OF SYSTEMS: CONSTITUTIONAL : Denies fever, chills, or sweats. Denies recent illness. EENT: Denies eye, ear, throat, or mouth pain or symptoms. Denies nasal or sinus congestion or discharge. Denies throat, tongue, or mouth swelling or difficulty swallowing. CARDIOVASCULAR: Admits to chest pain RESPIRATORY: Admits to shortness of breath difficulty GASTROINTESTINAL: Denies abdominal pain or distention. Denies nausea, vomiting , or diarrhea. Denies blood in vomitus, stools, or per rectum. Denies black, tarry stools. Denies constipation. GENITOURINARY: Denies difficulty urinating, painful urination, burning, frequency, blood in urine, or discharge. FEMALE GENITOURINARY: Denies vaginal bleeding, heavy or abnormal periods, irregular periods. Denies vaginal discharge or odor. MUSCULOSKELETAL: Denies back or neck pain or stiffness. Denies joint pain or swelling. SKIN: Denies rash, lesions or sores. HEMATOLOGIC : Denies easy bruising or bleeding. LYMPHATIC: Denies swollen, enlarged glands. NEUROLOGICAL: Denies confusion or altered mental status. Denies passing out or loss of consciousness. Denies dizziness or lightheadedness. Denies headache. Denies weakness or paralysis or loss of use of either side. Denies problems with gait or speech. Denies sensory loss, numbness, or tingling. Denies seizures. PSYCHIATRIC: Denies anxiety or stress. Denies depression, suicidal ideation, or homicidal ideation. ALL OTHER SYSTEMS REVIEWED AND NEGATIVE. PHYSICAL EXAMINATION: GENERAL: Well-appearing, well-nourished and in moderate respiratory distress. HEAD: Atraumatic, normocephalic. EYES: Pupils equal round and reactive to light, extraocular movements intact, conjunctiva are normal. ENT: Nares patent, oropharynx clear without exudates. Moist mucous membranes. NECK: Normal range of motion, supple without lymphadenopathy LUNGS: Moderate respiratory distress coarse wheezing all throughout HEART: Regular rate and rhythm without murmurs ABDOMEN: Soft, nontender, nondistended abdomen. No guarding, no rebound. No masses appreciated. Female : deferred Musculoskeletal: Normal range of motion, no pitting or edema. No cyanosis. NEUROLOGICAL: Cranial nerves grossly intact. Normal speech, normal gait. Normal sensory, motor exams PSYCH: Normal mood, normal affect. SKIN: Warm, Dry, normal turgor, no rashes or lesions noted. Dictation was performed using [employer] voice recognition software Physical Exam - Vital signs Vitals: Pulse Ox 97 08/23/16 07:00 Course - Re-evaluation Re-evalutation: 08/23/16 10:40 Patient was immediately started on BiPAP, she is noted to otherwise be stable. Initial O2 sat was in the 70 Patient given duo nebs Solu-Medrol will be admitted to telemetry on BiPAP - Vital Signs Vital signs: Temp Pulse Resp BP Pulse Ox 19 163/86 H 95 08/23/16 09:30 08/23/16 09:30 08/23/16 09:30 - Laboratory Result Diagrams: 08/23/16 07:06 08/23/16 08:53 Laboratory results interpreted by me: 08/23/16 08/23/16 08/23/16 07:06 08:53 08:53 Hgb 11.1 L Hct 35.5 L MCHC 31.3 L RDW 15.7 H Lymphocytes % 10.7 L VBG pCO2 77.1 H* VBG HCO3 37.9 H Potassium Carbon Dioxide Glucose NT-Pro-B Natriuret Pep 2130 H 08/23/16 08:53 Hgb Hct MCHC RDW Lymphocytes % VBG pCO2 VBG HCO3 Potassium 5.5 H Carbon Dioxide 31 H Glucose 265 H NT-Pro-B Natriuret Pep - Diagnostic Test Radiology reviewed: Image reviewed, Reports reviewed - EKG Interpretation by Me EKG shows normal: Sinus rhythm, [place], Intervals, QRS Complexes Critical Care Note - Critical Care Note Total time excluding time spent on procedures (mins): 34 Comments: 34 minutes of critical care time spent in direct contact evaluating and reevaluating the patient, treating symptoms, reviewing labs and studies and speaking with family and consultants excluding any procedures Discharge - Discharge Clinical Impression: Acute chronic obstructive pulmonary disease with respiratory distress, Hypoxemia, Hyperkalemia Chest pain Qualifiers: Chest pain type: unspecified Qualified Code(s): R07.9 - Chest pain, unspecified Condition: Fair Disposition: ADMITTED INPATIENT Admitting Provider: [facility] Unit Admitted: Telemetry
[2016-08-23 09:05] LABS: VENOUS BLOOD BASE EXCESS 9.2 mmol/L; VENOUS BLOOD HCO3 37.9 mmol/L (20-32); VENOUS BLOOD PH 7.31 (7.30-7.42)
[2016-08-23 09:08] LABS: VENOUS BLOOD PCO2 77.1 mmHg (35-63)
[2016-08-23 09:24] LABS: ALANINE AMINOTRANSFERASE 30 U/L (9-52); ALBUMIN 3.8 g/dL (3.5-5.0); ALKALINE PHOSPHATASE 99 U/L (38-126); ANION GAP 8 (5-19); ASPARTATE AMINO TRANSFERASE 17 U/L (14-36); BILIRUBIN,DIRECT 0.4 mg/dL (0.0-0.4); BILIRUBIN,TOTAL 0.5 mg/dL (0.2-1.3); BLOOD UREA NITROGEN 16 mg/dL (7-20); CALCIUM 9.1 mg/dL (8.4-10.2); CARBON DIOXIDE 31 mmol/L (22-30); CHLORIDE 101 mmol/L (98-107); CREATINE KINASE 54 U/L (30-135); CREATININE RESULT 0.61 mg/dL (0.52-1.25); GLUCOSE 265 mg/dL (75-110); POTASSIUM 5.5 mmol/L (3.6-5.0); SODIUM 140.1 mmol/L (137-145); TOTAL PROTEIN 6.9 g/dL (6.3-8.2)
[2016-08-23 09:36] LABS: CREATINE KINASE MB 1.59 ng/mL (<4.55)
[2016-08-23 09:39] LABS: TROPONIN I < 0.012 ng/mL
[2016-08-23] MEDS ORDERED: TRAMADOL HCL PO PRN (13:03)
[2016-08-23] MEDS ORDERED: ALBUTEROL SULFATE HFA (90 MCG/PUFF) 8 GM MDI (1 MDI/ER DISP) IH PRN (13:03)
[2016-08-23] MEDS ORDERED: ACETAMINOPHEN 325 MG PO PRN (13:03)
[2016-08-23] MEDS ORDERED: [UNRECOGNIZED DRUG - OTHER] PO PRN (13:03)
[2016-08-23] MEDS ORDERED: (PENDING PHARMACY ID) (Pioglitazone Hcl [Actos] 45 MG) PO SCH (13:15)
[2016-08-23] MEDS ORDERED: ONDANSETRON HCL INJ/PF 4 MG/2 ML SDV IV ONE (13:22)
[2016-08-23 13:50] LABS: APPEARANCE,URINE SLIGHTLY-CLOUDY; BILIRUBIN,URINE NEGATIVE (NEGATIVE); GLUCOSE, URINE >=500 mg/dL (NEGATIVE); KETONES,URINE TRACE mg/dL (NEGATIVE); LEUKOCYTE ESTERASE,URINE SMALL (NEGATIVE); NITRITE,URINE POSITIVE (NEGATIVE); PROTEIN,URINE NEGATIVE (NEGATIVE); URINE SPECIFIC GRAVITY 1.022; UROBILINOGEN,URINE NEGATIVE mg/dL (<2.0)
[2016-08-23 14:00] LABS: PROTHROMBIN TIME 12.4 SEC (11.4-15.4)
[2016-08-23] MEDS ORDERED: (PENDING PHARMACY ID) (Pramipexole Di-Hcl [Mirapex] 0.125 MG) PO SCH (14:00)
[2016-08-23 14:01] LABS: PARTIAL THROMBOPLASTIN TIME 23.2 SEC (23.5-35.8)
[2016-08-23 14:08] LABS: LIPASE 56.6 U/L (23-300); MAGNESIUM 1.6 mg/dL (1.6-2.3); PHOSPHORUS 3.6 mg/dL (2.5-4.5)
[2016-08-23 14:21] LABS: CREATINE KINASE MB 1.38 ng/mL (<4.55)
[2016-08-23 14:24] LABS: TROPONIN I < 0.012 ng/mL
[2016-08-23] MEDS ORDERED: PIOGLITAZONE HCL 15 MG TABLET PO ONE (14:30)
[2016-08-23] MEDS ORDERED: ALBUTEROL SULFATE HFA (90 MCG/PUFF) 200 PUFF/8.5 GM MDI IH PRN (14:32)
[2016-08-23 14:38] LABS: THYROID STIMULATING HORMONE 0.37 uIU/mL (0.47-4.68)
[2016-08-23] MEDS ORDERED: TIOTROPIUM BROMIDE DPI 5 CAP/KIT (18 MCG/CAP) IH ONE (15:00)
[2016-08-23] MEDS ORDERED: LEVOFLOXACIN 750 MG/D5W RTU 750 MG/150 ML RTUPB IV ONE (15:00)
[2016-08-23] MEDS ORDERED: FERROUS SULFATE 325 MG TABLET PO ONE (15:00)
[2016-08-23] MEDS ORDERED: FLUTICASONE/SALMETEROL DISKUS 250-50 MCG/DOSE IH ONE (15:00)
[2016-08-23] MEDS ORDERED: METOPROLOL TARTRATE 25 MG TABLET PO ONE (15:00)
[2016-08-23] MEDS ORDERED: ENOXAPARIN SODIUM INJ 40 MG/0.4 ML DISP.SYRIN SUBCUT ONE (15:30)
[2016-08-23] MEDS: METFORMIN HCL 500 MG TABLET PO SCH (16:12)
[2016-08-23] MEDS: TRAMADOL HCL 50 MG TABLET PO PRN (16:15)
--- NOTE | 2016-08-23 16:38 | RADIOLOGY REPORT (SQ) ---
EXAM DESCRIPTION: CT CHEST WITHOUT COMPLETED DATE/TIME: 08/23/2016 3:10 pm REASON FOR STUDY: pneumonia/copd COMPARISON: Chest x-ray dated 08/23/[address] scan dated January 2016 TECHNIQUE: CT scan performed of the chest without intravenous contrast. Images reviewed with lung, soft tissue and bone windows. Reconstructed coronal and sagittal MPR images reviewed. All images st ored on PACS. All CT scanners at this facility use dose modulation, iterative reconstruction, and/or weight based d osing when appropriate to reduce radiation dose to as low as reasonably achievable (ALARA). [facility]: Dose Right [facility]: CareDose [facility]: Dose Right [facility]: Teradose 4D [facility]: [employer] Technologies RADIATION DOSE: Up-to-date CT equipment and radiation dose reduction techniques were employed. CTDIv ol: 18.2 mGy. DLP: 690 mGy-cm. mGy. LIMITATIONS: No technical limitations. FINDINGS: LUNGS AND PLEURA: There are some minimal ground-glass opacities in the posterior sulcus of each lung right greater than left which could represent atelectatic changes or a minimal infiltrate. Linear scarring or subsegmental atelectasis is identified in the left lung base. No consolidations or pleural effusions are identified HILAR AND MEDIASTINAL STRUCTURES: No identified masses or abnormal nodes. No obvious aneurysm. HEART AND VASCULAR STRUCTURES: No aneurysm. No pericardial effusion. UPPER ABDOMEN: No significant findings. Limited exam. THYROID AND OTHER SOFT TISSUES: The previously described fat containing thyroid lesion is again ident ified. BONES: Minimal wedge deformity in lower thoracic spine appears stable. HARDWARE: None in the chest. OTHER: No other significant findings. IMPRESSION: Minimal bibasilar densities as noted above. Other findings as noted above. TECHNICAL DOCUMENTATION: JOB ID: [id number] Quality ID # [id number]: Final reports with documentation of one or more dose reduction techniques (e.g., Au tomated exposure control, adjustment of the mA and/or kV according to patient size, use of iterative reconstruction technique) 2010 [employer]- All Rights Reserved
[2016-08-23] MEDS ORDERED: (PENDING PHARMACY ID) (Metformin Hcl [Metformin Hcl Er] 500 MG) PO SCH (18:00)
[2016-08-23] MEDS ORDERED: DEXTROSE 40% GEL 15 GM TUBE X 2 PO PRN (18:26)
[2016-08-23] MEDS ORDERED: GLUCAGON,HUMAN RECOMB 1 MG INJ IM PRN (18:26)
[2016-08-23] MEDS ORDERED: DEXTROSE 50%-WATER SYRINGE 12.5 GM/25 ML DOSE IV PRN (18:26)
[2016-08-23] MEDS ORDERED: DEXTROSE 40% GEL 15 GM TUBE PO PRN (18:26)
[2016-08-23] MEDS ORDERED: DEXTROSE 50%-WATER SYRINGE 25 GM/50 ML DOSE IV PRN (18:26)
[2016-08-23] MEDS: INSULIN LISPRO 100 UNIT/ML 3 ML VIAL SUBCUT PRN ×2 (18:32→21:45)
--- NOTE | 2016-08-23 19:01 | PDOC H&P ---
History of Present Illness Admission Date/PCP: 08/23/16 12:59 TANISHA POLLARD MD History of Present Illness: TORREY MARKS is a 65 year old female, she has multiple comorbid conditions including chronic obstructive pulmonary disease, chronic respiratory failure on maintenance oxygen, coronary artery disease, peripheral vascular disease, multiple hospitalization. She was transferred from home to the emergency room for evaluation of acute respiratory distress. She had a low oxygen saturation in the low 70s she was treated with noninvasive positive pressure ventilation, BiPAP machine. CT chest without contrast was done it showed minimal groundglass opacities in the posterior sulcus of each lung right more than left this could represent atelectatic changes or a minimal infiltrate, also found was linear scarring or subsegmental atelectasis in the left lung base. There is no consolidation or pleural effusions. I saw the patient by the bedside, she complain of pain in the low back. Past Medical History Cardiac Medical History: Reports: Coronary Artery Disease, Hyperlipidema, Hypertension, Peripheral Vascular Disease Pulmonary Medical History: Reports: Asthma, Bronchitis, Chronic Obstructive Pulmonary Disease (COPD), Respiratory Failure, Sleep Apnea Neurological Medical History: Reports: Migraine Endocrine Medical History: Reports: Diabetes Mellitus Type 2 Renal/ Medical History: Malignancy Medical History: GI Medical History: Musculoskeltal Medical History: Reports: Arthritis, Fibromyalgia Psychiatric Medical History: Reports: Depression Infectious Medical History: Reports: Clostridium Difficile, Methicillin- Resistant Staph Aureus Past Surgical History Past Surgical History: Reports: Amputation, Appendectomy, Cardiac Catheterization, Cholecystectomy, Coronary Stent, Hysterectomy, Orthopedic Surgery - right shoulder, Tubal Ligation, Vascular Surgery Social History Smoking Status: Former Smoker Number of Years Smokin Last Time Smoked: 9 yrs ago Frequency of Alcohol Use: None Hx Recreational Drug Use: No Drugs: None Hx Prescription Drug Abuse: No - Advance Directive Resuscitation Status: Full Code Family History Family History: Hypertension, Other - Alzheimer's, renal failure Parental Family History Reviewed: Yes Children Family History Reviewed: Yes Sibling(s) Family History Reviewed.: Yes Medication/Allergy Home Medications: Albuterol Sulfate [Proair HFA] 2 puff IH Q4 PRN 08/23/16 Atorvastatin Calcium [Lipitor 40 mg Tablet] 40 mg PO QHS 08/23/16 Ferrous Sulfate [Iron] 325 mg PO DAILY 08/23/16 Fluticasone/Salmeterol [Advair 250-50 Diskus 14 Dose/Diskus] 1 inh IH Q12 Gabapentin [Neurontin 300 mg Capsule] 900 mg PO Q8 08/23/16 Metformin HCl [Metformin HCl ER] 500 mg PO QPM 08/23/16 Metoprolol Tartrate [Lopressor 25 mg Tablet] 12.5 mg PO Q12 08/23/16 Pioglitazone HCl [Actos] 45 mg PO DAILY 08/23/16 Pramipexole Di-HCl [Mirapex] 0.125 mg PO Q8 08/23/16 Sacubitril/Valsartan [Entresto 24 mg-26 mg Tablet] 1 tab PO Q12 08/23/16 Tiotropium [place] [Spiriva Handihaler 5 Cap/Kit (18 Mcg/Cap)] 1 cap IH DAILY Tramadol HCl/Acetaminophen [Ultracet Tablet] 1 tab PO Q6HP PRN 08/23/16 Allergies/Adverse Reactions: codeine [Codeine] Adverse Reaction (Unknown, Verified 08/23/16 08:03) Review of Systems Constitutional: PRESENT: fatigue Eyes: ABSENT: visual disturbances Ears: ABSENT: hearing changes Cardiovascular: PRESENT: dyspnea on exertion Respiratory: PRESENT: cough Gastrointestinal: ABSENT: abdominal pain, constipation, diarrhea, hematemesis, hematochezia, nausea, vomiting Genitourinary: ABSENT: dysuria, hematuria Musculoskeletal: PRESENT: back pain Integumentary: ABSENT: rash, wounds Neurological: ABSENT: abnormal gait, abnormal speech, confusion, dizziness, focal weakness, syncope Psychiatric: ABSENT: anxiety, depression, homidical ideation, suicidal ideation Endocrine: ABSENT: cold intolerance, heat intolerance, menstrual abnormalities, polydipsia, polyuria Hematologic/Lymphatic: ABSENT: easy bleeding, easy bruising, lymphadenopathy Physical Exam Vital Signs: Temp Pulse Resp BP Pulse Ox 98.5 F 95 22 H 116/70 98 08/23/16 16:53 08/23/16 16:53 08/23/16 16:53 08/23/16 16:53 08/23/16 16:53 Intake & Output 08/22/16 08/23/16 08/24/16 06:59 06:59 06:59 Weight 104.326 kg General appearance: PRESENT: severe distress Eye exam: PRESENT: conjunctiva pink, EOMI, PERRLA Ear exam: PRESENT: normal external ear exam Mouth exam: PRESENT: moist, tongue midline Neck exam: PRESENT: full ROM Respiratory exam: PRESENT: rhonchi Cardiovascular exam: PRESENT: RRR, +S1, +S2 Vascular exam: PRESENT: normal capillary refill GI/Abdominal exam: PRESENT: normal bowel sounds, soft Rectal exam: PRESENT: deferred Neurological exam: PRESENT: alert Psychiatric exam: PRESENT: appropriate affect, normal mood Skin exam: PRESENT: dry, intact, warm Results Laboratory Results: 08/23/16 08/23/16 08/23/16 13:28 13:28 13:28 Phosphorus 3.6 Magnesium 1.6 Ammonia < 8.7 L Amylase 38 Lipase 56.6 TSH 0.37 L Free T4 1.35 Urine Color Urine Appearance Urine pH Ur Specific [place] Urine Protein Urine Glucose (UA) Urine Ketones Urine Blood Urine Nitrite Ur Leukocyte Esterase Urine WBC (Auto) Urine RBC (Auto) 08/23/16 13:32 Phosphorus Magnesium Ammonia Amylase Lipase TSH Free T4 Urine Color YELLOW Urine Appearance SLIGHTLY-CLOUDY Urine pH 5.0 Ur Specific [place] 1.022 Urine Protein NEGATIVE Urine Glucose (UA) >=500 H Urine Ketones TRACE H Urine Blood SMALL H Urine Nitrite POSITIVE H Ur Leukocyte Esterase SMALL H Urine WBC (Auto) 27 Urine RBC (Auto) 2 08/23/16 08/23/16 13:28 13:28 Creatine Kinase 46 CK-MB (CK-2) 1.38 Troponin I < 0.012 Impressions: Chest CT 08/23/16 00:00 IMPRESSION: Minimal bibasilar densities as noted above. Other findings as noted above. Chest X-Ray 08/23/16 07:01 IMPRESSION: No acute cardiopulmonary findings. Assessment & Plan - Diagnosis (1) Acute hypercapnic respiratory failure Is this a current diagnosis for this admission?: YesPlan: She has chronic renal failure, presently on noninvasive positive pressure ventilation with BiPAP will continue same therapy (2) Chronic obstructive pulmonary disease with (acute) exacerbation Is this a current diagnosis for this admission?: YesPlan: She is not overly wheezing, she will be treated with IV antibiotic Levaquin, CT chest does not overly confirm pneumonia. (3) Acute chronic obstructive pulmonary disease with respiratory distress Is this a current diagnosis for this admission?: Yes (4) COPD (chronic obstructive pulmonary disease) Qualifiers: COPD type: COPD with acute exacerbation Qualified Code(s): J44.1 - Chronic obstructive pulmonary disease with (acute) exacerbation Is this a current diagnosis for this admission?: Yes (5) Peripheral vascular disease Is this a current diagnosis for this admission?: Yes
[2016-08-23 19:42] LABS: CREATINE KINASE MB 1.41 ng/mL (<4.55)
[2016-08-23 19:44] LABS: TROPONIN I < 0.012 ng/mL
[2016-08-23] MEDS ORDERED: TRAMADOL HCL 50 MG TABLET PO ONE (20:00)
[2016-08-23] MEDS: ONDANSETRON HCL INJ/PF 4 MG/2 ML SDV IV PRN (20:29)
[2016-08-23] MEDS: IPRATROPIUM/ALBUTEROL 0.5-2.5 MG/3 ML AMPUL NEB PRN (21:04)
[2016-08-23] MEDS: GABAPENTIN 300 MG CAPSULE PO SCH (21:28)
[2016-08-23] MEDS: FLUTICASONE/SALMETEROL DISKUS 250-50 MCG/DOSE IH SCH (21:28)
[2016-08-23] MEDS: METOPROLOL TARTRATE 25 MG TABLET PO SCH (21:28)
[2016-08-23] MEDS: PRAMIPEXOLE DI-HCL 0.25 MG TABLET PO SCH (21:28)
[2016-08-23] MEDS: ATORVASTATIN CALCIUM 40 MG TABLET PO SCH (21:28)
[2016-08-23] MEDS: SACUBITRIL/VALSARTAN 24 MG/26 MG TABLET PO SCH (21:31)
[2016-08-24 02:04] LABS: CREATINE KINASE MB 1.58 ng/mL (<4.55); TROPONIN I 0.023 ng/mL
[2016-08-24] MEDS: ONDANSETRON HCL INJ/PF 4 MG/2 ML SDV IV PRN ×3 (02:51→15:20)
[2016-08-24] MEDS: TRAMADOL HCL 50 MG TABLET PO PRN ×4 (02:51→21:45)
[2016-08-24] MEDS: PRAMIPEXOLE DI-HCL 0.25 MG TABLET PO SCH ×3 (05:53→21:45)
[2016-08-24] MEDS: GABAPENTIN 300 MG CAPSULE PO SCH ×3 (05:53→21:45)
[2016-08-24 06:03] LABS: ABSOLUTE LYMPHOCYTES (AUTO) 0.9 10^3/uL (0.5-4.7); ABSOLUTE MONOCYTES (AUTO) 0.8 10^3/uL (0.1-1.4); ABSOLUTE NEUT (AUTO) 6.1 10^3/uL (1.7-8.2); BASOPHILS % (AUTO) 0.3 % (0-2); HEMATOCRIT 33.4 % (36.0-47.0); HEMOGLOBIN 10.5 g/dL (12.0-15.5); HGB HCT DIFFERENCE -1.9; LYMPHOCYTES % (AUTO) 11.7 % (13-45); MEAN CORPUSCULAR HEMOGLOBIN 29.8 pg (27.0-33.4); MEAN CORPUSCULAR HGB CONC 31.5 g/dL (32.0-36.0); MEAN CORPUSCULAR VOLUME 94 fl (80-97); MONOCYTES % (AUTO) 10.4 % (3-13); RED BLOOD COUNT 3.54 10^6/uL (3.72-5.28); RED CELL DISTRIBUTION WIDTH 15.5 % (11.5-14.0); SEGMENTED NEUTROPHILS % (AUTO) 77.6 % (42-78); WHITE BLOOD COUNT 7.8 10^3/uL (4.0-10.5)
[2016-08-24 06:13] LABS: ALANINE AMINOTRANSFERASE 27 U/L (9-52); ALBUMIN 3.5 g/dL (3.5-5.0); ALKALINE PHOSPHATASE 86 U/L (38-126); ANION GAP 8 (5-19); ASPARTATE AMINO TRANSFERASE 16 U/L (14-36); BILIRUBIN,DIRECT 0.3 mg/dL (0.0-0.4); BILIRUBIN,TOTAL 0.4 mg/dL (0.2-1.3); BLOOD UREA NITROGEN 21 mg/dL (7-20); CALCIUM 8.8 mg/dL (8.4-10.2); CARBON DIOXIDE 35 mmol/L (22-30); CHLORIDE 97 mmol/L (98-107); CREATININE RESULT 0.61 mg/dL (0.52-1.25); Direct HDL 36 mg/dL (>40); GLUCOSE 247 mg/dL (75-110); TOTAL PROTEIN 6.7 g/dL (6.3-8.2); TRIGLYCERIDES 155 mg/dL (<150)
[2016-08-24 06:24] LABS: DIRECT LDL 95 mg/dL (<100)
[2016-08-24 06:41] LABS: POTASSIUM 4.3 mmol/L (3.6-5.0)
[2016-08-24] MEDS: METFORMIN HCL 500 MG TABLET PO SCH ×2 (07:51→17:01)
[2016-08-24] MEDS: INSULIN LISPRO 100 UNIT/ML 3 ML VIAL SUBCUT PRN ×4 (07:51→22:04)
[2016-08-24] MEDS: ENOXAPARIN SODIUM INJ 40 MG/0.4 ML DISP.SYRIN SUBCUT SCH (09:14)
[2016-08-24] MEDS: FERROUS SULFATE 325 MG TABLET PO SCH (09:15)
[2016-08-24] MEDS: TIOTROPIUM BROMIDE DPI 5 CAP/KIT (18 MCG/CAP) IH SCH (09:15)
[2016-08-24] MEDS: LEVOFLOXACIN 750 MG/D5W RTU 750 MG/150 ML RTUPB IV SCH (09:15)
[2016-08-24] MEDS: SACUBITRIL/VALSARTAN 24 MG/26 MG TABLET PO SCH ×2 (09:15→21:45)
[2016-08-24] MEDS: FLUTICASONE/SALMETEROL DISKUS 250-50 MCG/DOSE IH SCH ×2 (09:15→21:45)
[2016-08-24] MEDS: PIOGLITAZONE HCL 15 MG TABLET PO SCH (09:15)
[2016-08-24] MEDS: IPRATROPIUM/ALBUTEROL 0.5-2.5 MG/3 ML AMPUL NEB PRN (10:03)
[2016-08-24] MEDS: METOPROLOL TARTRATE 25 MG TABLET PO SCH ×2 (13:07→22:02)
--- NOTE | 2016-08-24 15:05 | PDOC PROGRESS REPORT ---
Subjective Progress Note for:: 08/24/16 Subjective:: pt is doing well denied any chest pain no sob pt is c/o back pain Physical Exam Vital Signs: Temp Pulse Resp BP Pulse Ox 97.6 F 83 17 111/55 L 98 08/24/16 12:01 08/24/16 14:00 08/24/16 12:01 08/24/16 12:01 08/24/16 12:01 Intake & Output 08/23/16 08/24/16 08/25/16 06:59 06:59 06:59 Intake Total 1110 200 Balance 1110 200 Weight 104.32 kg General appearance: PRESENT: no acute distress, well-developed, well-nourished Head exam: PRESENT: atraumatic, normocephalic Eye exam: PRESENT: conjunctiva pink, EOMI, PERRLA. ABSENT: scleral icterus Ear exam: PRESENT: normal external ear exam Mouth exam: PRESENT: moist, tongue midline Neck exam: PRESENT: full ROM. ABSENT: carotid bruit, JVD, lymphadenopathy, thyromegaly Cardiovascular exam: PRESENT: RRR. ABSENT: diastolic murmur, rubs, systolic murmur Pulses: PRESENT: normal dorsalis pedis pul, +2 pedal pulses bilateral Vascular exam: PRESENT: normal capillary refill GI/Abdominal exam: PRESENT: normal bowel sounds, soft. ABSENT: distended, guarding, mass, organolmegaly, rebound, tenderness Rectal exam: PRESENT: deferred Neurological exam: PRESENT: alert, awake, oriented to person, oriented to place , oriented to time, oriented to situation, CN II-XII grossly intact. ABSENT: motor sensory deficit Psychiatric exam: PRESENT: appropriate affect, normal mood. ABSENT: homicidal ideation, suicidal ideation Skin exam: PRESENT: dry, intact, warm. ABSENT: cyanosis, rash Results Laboratory Results: 08/24/16 05:49 08/24/16 05:49 08/24/16 08/24/16 05:49 05:49 WBC 7.8 RBC 3.54 L Hgb 10.5 L Hct 33.4 L MCV 94 MCH 29.8 MCHC 31.5 L RDW 15.5 H Plt Count 294 Seg Neutrophils % 77.6 Lymphocytes % 11.7 L Monocytes % 10.4 Eosinophils % 0.0 Basophils % 0.3 Absolute Neutrophils 6.1 Absolute Lymphocytes 0.9 Absolute Monocytes 0.8 Absolute Eosinophils 0.0 Absolute Basophils 0.0 Sodium 140.0 Potassium 4.3 D Chloride 97 L Carbon Dioxide 35 H Anion Gap 8 BUN 21 H Creatinine 0.61 Est GFR ( Amer) > 60 Est GFR (Non-Af Amer) > 60 Glucose 247 H Calcium 8.8 Total Bilirubin 0.4 AST 16 ALT 27 Alkaline Phosphatase 86 Total Protein 6.7 Albumin 3.5 Triglycerides 155 H Cholesterol 157.50 LDL Cholesterol Direct 95 VLDL Cholesterol 31.0 HDL Cholesterol 36 L 08/23/16 08/23/16 08/23/16 13:28 13:28 19:10 Creatine Kinase 46 53 CK-MB (CK-2) 1.38 Troponin I < 0.012 NT-Pro-B Natriuret Pep 08/23/16 08/24/16 08/24/16 19:10 01:22 01:22 Creatine Kinase 48 CK-MB (CK-2) 1.41 1.58 Troponin I < 0.012 0.023 NT-Pro-B Natriuret Pep 08/24/16 05:49 Creatine Kinase CK-MB (CK-2) Troponin I NT-Pro-B Natriuret Pep 3960 H Impressions: Chest CT 08/23/16 00:00 IMPRESSION: Minimal bibasilar densities as noted above. Other findings as noted above. Chest X-Ray 08/23/16 07:01 IMPRESSION: No acute cardiopulmonary findings. Assessment & Plan - Diagnosis (1) Acute chronic obstructive pulmonary disease with respiratory distress Is this a current diagnosis for this admission?: YesPlan: cont curr med (2) Acute hypercapnic respiratory failure Is this a current diagnosis for this admission?: YesPlan: off bipap get abg (3) Coronary artery disease Qualifiers: Coronary Disease-Associated Artery/Lesion type: [place] artery [place] vs. transplanted heart: [place] heart Associated angina: without angina Qualified Code(s): I25.10 - Atherosclerotic heart disease of [place] coronary artery without angina pectoris (4) Anxiety Is this a current diagnosis for this admission?: Yes (5) Diabetes mellitus type 2 in obese Is this a current diagnosis for this admission?: Yes (6) Narcotic dependence Is this a current diagnosis for this admission?: YesPlan: use tradol prn for back pain get pt evaution - Time Time Spent with patient: 15-24 minutes Medications reviewed and adjusted accordingly: Yes Anticipated discharge: Home Within: Other - Inpatient Certification Medical Necessity: Significant Comorbidiites Make Outpatient Treatment Too Risky , Need for IV Antibiotics Post Hospital Care: D/[facility] [employer] Documentation - Plan Summary Plan Summary: cont curr medication
[2016-08-24] MEDS: ATORVASTATIN CALCIUM 40 MG TABLET PO SCH (21:45)
[2016-08-25 05:13] LABS: ABSOLUTE EOSINOPHILS # (AUTO) 0.1 10^3/uL (0.0-0.6); ABSOLUTE LYMPHOCYTES (AUTO) 1.3 10^3/uL (0.5-4.7); ABSOLUTE MONOCYTES (AUTO) 0.7 10^3/uL (0.1-1.4); ABSOLUTE NEUT (AUTO) 4.6 10^3/uL (1.7-8.2); BASOPHILS % (AUTO) 0.5 % (0-2); HEMOGLOBIN 10.7 g/dL (12.0-15.5); HGB HCT DIFFERENCE -2.9; LYMPHOCYTES % (AUTO) 18.7 % (13-45); MEAN CORPUSCULAR HEMOGLOBIN 29.3 pg (27.0-33.4); MEAN CORPUSCULAR HGB CONC 30.5 g/dL (32.0-36.0); MEAN CORPUSCULAR VOLUME 96 fl (80-97); MONOCYTES % (AUTO) 10.1 % (3-13); RED BLOOD COUNT 3.66 10^6/uL (3.72-5.28); RED CELL DISTRIBUTION WIDTH 15.6 % (11.5-14.0); SEGMENTED NEUTROPHILS % (AUTO) 68.7 % (42-78); WHITE BLOOD COUNT 6.8 10^3/uL (4.0-10.5)
[2016-08-25] MEDS: GABAPENTIN 300 MG CAPSULE PO SCH ×3 (05:24→22:25)
[2016-08-25] MEDS: TRAMADOL HCL 50 MG TABLET PO PRN ×3 (05:24→22:25)
[2016-08-25] MEDS: PRAMIPEXOLE DI-HCL 0.25 MG TABLET PO SCH ×3 (05:24→22:26)
[2016-08-25 05:27] LABS: ALANINE AMINOTRANSFERASE 27 U/L (9-52); ALBUMIN 3.4 g/dL (3.5-5.0); ALKALINE PHOSPHATASE 78 U/L (38-126); ANION GAP 5 (5-19); ASPARTATE AMINO TRANSFERASE 17 U/L (14-36); BILIRUBIN,DIRECT 0.3 mg/dL (0.0-0.4); BILIRUBIN,TOTAL 0.4 mg/dL (0.2-1.3); BLOOD UREA NITROGEN 21 mg/dL (7-20); CALCIUM 8.5 mg/dL (8.4-10.2); CARBON DIOXIDE 37 mmol/L (22-30); CHLORIDE 96 mmol/L (98-107); CREATININE RESULT 0.66 mg/dL (0.52-1.25); GLUCOSE 215 mg/dL (75-110); POTASSIUM 4.7 mmol/L (3.6-5.0); SODIUM 137.7 mmol/L (137-145); TOTAL PROTEIN 6.6 g/dL (6.3-8.2)
[2016-08-25] MEDS: METFORMIN HCL 500 MG TABLET PO SCH ×2 (07:37→17:27)
[2016-08-25] MEDS: INSULIN LISPRO 100 UNIT/ML 3 ML VIAL SUBCUT PRN ×3 (07:38→22:26)
[2016-08-25] MEDS: ONDANSETRON HCL INJ/PF 4 MG/2 ML SDV IV PRN ×3 (08:33→22:25)
[2016-08-25] MEDS: METOPROLOL TARTRATE 25 MG TABLET PO SCH ×2 (09:35→22:26)
[2016-08-25] MEDS: PIOGLITAZONE HCL 15 MG TABLET PO SCH (09:35)
[2016-08-25] MEDS: SACUBITRIL/VALSARTAN 24 MG/26 MG TABLET PO SCH ×2 (09:35→22:27)
[2016-08-25] MEDS: LEVOFLOXACIN 750 MG/D5W RTU 750 MG/150 ML RTUPB IV SCH (09:36)
[2016-08-25] MEDS: FERROUS SULFATE 325 MG TABLET PO SCH (09:36)
[2016-08-25] MEDS: ENOXAPARIN SODIUM INJ 40 MG/0.4 ML DISP.SYRIN SUBCUT SCH (09:37)
[2016-08-25] MEDS: FLUTICASONE/SALMETEROL DISKUS 250-50 MCG/DOSE IH SCH ×2 (09:37→22:25)
[2016-08-25] MEDS: TIOTROPIUM BROMIDE DPI 5 CAP/KIT (18 MCG/CAP) IH SCH (09:37)
--- NOTE | 2016-08-25 10:02 | PDOC PROGRESS REPORT ---
Subjective Progress Note for:: 08/25/16 Subjective:: Patient is currently doing fair denied any chest pain denied any shortness of the breath. Patient still have on and off back pain Physical Exam Vital Signs: Temp Pulse Resp BP Pulse Ox 98.9 F 82 16 104/45 L 97 08/25/16 08:00 08/25/16 08:00 08/25/16 08:00 08/25/16 08:00 08/25/16 08:00 Intake & Output 08/24/16 08/25/16 08/26/16 06:59 06:59 06:59 Intake Total 1110 1005 Output Total 1050 Balance 1110 -45 Weight 104.32 kg 103.2 kg General appearance: PRESENT: no acute distress, well-developed, well-nourished Head exam: PRESENT: atraumatic, normocephalic Eye exam: PRESENT: conjunctiva pink, EOMI, PERRLA. ABSENT: scleral icterus Ear exam: PRESENT: normal external ear exam Mouth exam: PRESENT: moist, tongue midline Neck exam: PRESENT: full ROM. ABSENT: carotid bruit, JVD, lymphadenopathy, thyromegaly Respiratory exam: PRESENT: clear to auscultation rolf Cardiovascular exam: PRESENT: RRR. ABSENT: diastolic murmur, rubs, systolic murmur Pulses: PRESENT: normal dorsalis pedis pul, +2 pedal pulses bilateral Vascular exam: PRESENT: normal capillary refill GI/Abdominal exam: PRESENT: normal bowel sounds, soft. ABSENT: distended, guarding, mass, organolmegaly, rebound, tenderness Rectal exam: PRESENT: deferred Neurological exam: PRESENT: alert, awake, oriented to person, oriented to place , oriented to time, oriented to situation, CN II-XII grossly intact. ABSENT: motor sensory deficit Psychiatric exam: PRESENT: appropriate affect, normal mood. ABSENT: homicidal ideation, suicidal ideation Skin exam: PRESENT: dry, intact, warm. ABSENT: cyanosis, rash Results Laboratory Results: 08/25/16 04:47 08/25/16 04:47 08/25/16 08/25/16 04:47 04:47 WBC 6.8 RBC 3.66 L Hgb 10.7 L Hct 35.0 L MCV 96 MCH 29.3 MCHC 30.5 L RDW 15.6 H Plt Count 245 Seg Neutrophils % 68.7 Lymphocytes % 18.7 Monocytes % 10.1 Eosinophils % 2.0 Basophils % 0.5 Absolute Neutrophils 4.6 Absolute Lymphocytes 1.3 Absolute Monocytes 0.7 Absolute Eosinophils 0.1 Absolute Basophils 0.0 Sodium 137.7 Potassium 4.7 Chloride 96 L Carbon Dioxide 37 H Anion Gap 5 BUN 21 H Creatinine 0.66 Est GFR ( Amer) > 60 Est GFR (Non-Af Amer) > 60 Glucose 215 H Calcium 8.5 Total Bilirubin 0.4 AST 17 ALT 27 Alkaline Phosphatase 78 Total Protein 6.6 Albumin 3.4 L 08/23/16 08/23/16 08/23/16 13:28 13:28 19:10 Creatine Kinase 46 53 CK-MB (CK-2) 1.38 Troponin I < 0.012 NT-Pro-B Natriuret Pep 08/23/16 08/24/16 08/24/16 19:10 01:22 01:22 Creatine Kinase 48 CK-MB (CK-2) 1.41 1.58 Troponin I < 0.012 0.023 NT-Pro-B Natriuret Pep 08/24/16 05:49 Creatine Kinase CK-MB (CK-2) Troponin I NT-Pro-B Natriuret Pep 3960 H Impressions: Chest CT 08/23/16 00:00 IMPRESSION: Minimal bibasilar densities as noted above. Other findings as noted above. Chest X-Ray 08/23/16 07:01 IMPRESSION: No acute cardiopulmonary findings. Assessment & Plan - Diagnosis (1) Acute chronic obstructive pulmonary disease with respiratory distress Is this a current diagnosis for this admission?: YesPlan: cont curr med (2) Acute hypercapnic respiratory failure Is this a current diagnosis for this admission?: YesPlan: off bipap get abg (3) Coronary artery disease Qualifiers: Coronary Disease-Associated Artery/Lesion type: [place] artery [place] vs. transplanted heart: [place] heart Associated angina: without angina Qualified Code(s): I25.10 - Atherosclerotic heart disease of [place] coronary artery without angina pectoris Plan: Currently stable patients also see her Dr. Gaxiola as outpatient (4) Anxiety Is this a current diagnosis for this admission?: YesPlan: Continues current medications (5) Diabetes mellitus type 2 in obese Is this a current diagnosis for this admission?: YesPlan: Continues sliding scale (6) Narcotic dependence Is this a current diagnosis for this admission?: YesPlan: Use the tramadol as needed for the pain - Time Time Spent with patient: 15-24 minutes Medications reviewed and adjusted accordingly: Yes Anticipated discharge: Home Within: Other - Inpatient Certification Medical Necessity: Need Close Monitoring Due to Risk of Patient Decompensation 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
[2016-08-25] MEDS: ATORVASTATIN CALCIUM 40 MG TABLET PO SCH (22:25)
[2016-08-26] MEDS: TRAMADOL HCL 50 MG TABLET PO PRN ×3 (06:40→21:14)
[2016-08-26] MEDS: PRAMIPEXOLE DI-HCL 0.25 MG TABLET PO SCH ×3 (06:40→21:14)
[2016-08-26] MEDS: GABAPENTIN 300 MG CAPSULE PO SCH ×3 (06:40→21:14)
[2016-08-26 06:59] LABS: ALANINE AMINOTRANSFERASE 25 U/L (9-52); ALBUMIN 3.2 g/dL (3.5-5.0); ALKALINE PHOSPHATASE 76 U/L (38-126); ANION GAP 6 (5-19); ASPARTATE AMINO TRANSFERASE 17 U/L (14-36); BILIRUBIN,DIRECT 0.3 mg/dL (0.0-0.4); BILIRUBIN,TOTAL 0.4 mg/dL (0.2-1.3); BLOOD UREA NITROGEN 17 mg/dL (7-20); CALCIUM 8.7 mg/dL (8.4-10.2); CARBON DIOXIDE 37 mmol/L (22-30); CHLORIDE 95 mmol/L (98-107); CREATININE RESULT 0.69 mg/dL (0.52-1.25); GLUCOSE 196 mg/dL (75-110); POTASSIUM 4.2 mmol/L (3.6-5.0); SODIUM 138.2 mmol/L (137-145)
[2016-08-26 07:02] LABS: ABSOLUTE EOSINOPHILS # (AUTO) 0.2 10^3/uL (0.0-0.6); ABSOLUTE LYMPHOCYTES (AUTO) 1.1 10^3/uL (0.5-4.7); ABSOLUTE MONOCYTES (AUTO) 0.6 10^3/uL (0.1-1.4); ABSOLUTE NEUT (AUTO) 4.8 10^3/uL (1.7-8.2); BASOPHILS % (AUTO) 0.4 % (0-2); EOSINOPHILS % (AUTO) 2.8 % (0-6); HEMATOCRIT 34.3 % (36.0-47.0); HEMOGLOBIN 10.8 g/dL (12.0-15.5); HGB HCT DIFFERENCE -1.9; LYMPHOCYTES % (AUTO) 16.3 % (13-45); MEAN CORPUSCULAR HEMOGLOBIN 29.4 pg (27.0-33.4); MEAN CORPUSCULAR HGB CONC 31.5 g/dL (32.0-36.0); MEAN CORPUSCULAR VOLUME 94 fl (80-97); MONOCYTES % (AUTO) 9.5 % (3-13); RED BLOOD COUNT 3.67 10^6/uL (3.72-5.28); RED CELL DISTRIBUTION WIDTH 15.4 % (11.5-14.0); WHITE BLOOD COUNT 6.8 10^3/uL (4.0-10.5)
[2016-08-26] MEDS: INSULIN LISPRO 100 UNIT/ML 3 ML VIAL SUBCUT PRN ×4 (07:56→22:39)
[2016-08-26] MEDS: METFORMIN HCL 500 MG TABLET PO SCH ×2 (07:56→16:45)
[2016-08-26] MEDS: ENOXAPARIN SODIUM INJ 40 MG/0.4 ML DISP.SYRIN SUBCUT SCH (09:46)
[2016-08-26] MEDS: LEVOFLOXACIN 750 MG/D5W RTU 750 MG/150 ML RTUPB IV SCH (09:47)
[2016-08-26] MEDS: PIOGLITAZONE HCL 15 MG TABLET PO SCH (09:48)
[2016-08-26] MEDS: METOPROLOL TARTRATE 25 MG TABLET PO SCH ×2 (09:48→21:15)
[2016-08-26] MEDS: LANSOPRAZOLE 30 MG TAB.RAP.DR PO SCH (09:48)
[2016-08-26] MEDS: ONDANSETRON HCL INJ/PF 4 MG/2 ML SDV IV PRN ×2 (09:49→16:45)
[2016-08-26] MEDS: FERROUS SULFATE 325 MG TABLET PO SCH (09:49)
[2016-08-26] MEDS: FLUTICASONE/SALMETEROL DISKUS 250-50 MCG/DOSE IH SCH ×2 (09:49→21:14)
[2016-08-26] MEDS: SACUBITRIL/VALSARTAN 24 MG/26 MG TABLET PO SCH ×2 (09:49→21:14)
[2016-08-26] MEDS: TIOTROPIUM BROMIDE DPI 5 CAP/KIT (18 MCG/CAP) IH SCH (09:50)
--- NOTE | 2016-08-26 18:52 | PDOC PROGRESS REPORT ---
Subjective Progress Note for:: 08/26/16 Subjective:: She was seen by the bedside, she expresses the desire to have hospital bed at home Physical Exam Vital Signs: Temp Pulse Resp BP Pulse Ox 98.5 F 78 12 101/47 L 98 08/26/16 17:26 08/26/16 17:26 08/26/16 14:48 08/26/16 17:26 08/26/16 17:26 Intake & Output 08/25/16 08/26/16 08/27/16 06:59 06:59 06:59 Intake Total 1005 704 425 Output Total 1050 620 Balance -45 84 425 Weight 103.2 kg 103.5 kg General appearance: PRESENT: mild distress Eye exam: PRESENT: PERRLA Respiratory exam: PRESENT: rhonchi Cardiovascular exam: PRESENT: +S1, +S2 GI/Abdominal exam: PRESENT: soft Neurological exam: PRESENT: alert Results Laboratory Results: 08/26/16 06:27 08/26/16 06:27 08/26/16 08/26/16 06:27 06:27 WBC 6.8 RBC 3.67 L Hgb 10.8 L Hct 34.3 L MCV 94 MCH 29.4 MCHC 31.5 L RDW 15.4 H Plt Count 276 Seg Neutrophils % 71.0 Lymphocytes % 16.3 Monocytes % 9.5 Eosinophils % 2.8 Basophils % 0.4 Absolute Neutrophils 4.8 Absolute Lymphocytes 1.1 Absolute Monocytes 0.6 Absolute Eosinophils 0.2 Absolute Basophils 0.0 Sodium 138.2 Potassium 4.2 Chloride 95 L Carbon Dioxide 37 H Anion Gap 6 BUN 17 Creatinine 0.69 Est GFR ( Amer) > 60 Est GFR (Non-Af Amer) > 60 Glucose 196 H Calcium 8.7 Total Bilirubin 0.4 AST 17 ALT 25 Alkaline Phosphatase 76 Total Protein 6.0 L Albumin 3.2 L 08/23/16 08/23/16 08/23/16 13:28 13:28 19:10 Creatine Kinase 46 53 CK-MB (CK-2) 1.38 Troponin I < 0.012 NT-Pro-B Natriuret Pep 08/23/16 08/24/16 08/24/16 19:10 01:22 01:22 Creatine Kinase 48 CK-MB (CK-2) 1.41 1.58 Troponin I < 0.012 0.023 NT-Pro-B Natriuret Pep 08/24/16 05:49 Creatine Kinase CK-MB (CK-2) Troponin I NT-Pro-B Natriuret Pep 3960 H Impressions: Chest CT 08/23/16 00:00 IMPRESSION: Minimal bibasilar densities as noted above. Other findings as noted above. Chest X-Ray 08/23/16 07:01 IMPRESSION: No acute cardiopulmonary findings. Assessment & Plan - Diagnosis (1) Acute hypercapnic respiratory failure Is this a current diagnosis for this admission?: Yes (2) Chronic obstructive pulmonary disease with (acute) exacerbation Is this a current diagnosis for this admission?: Yes (3) Acute chronic obstructive pulmonary disease with respiratory distress Is this a current diagnosis for this admission?: Yes (4) COPD (chronic obstructive pulmonary disease) Qualifiers: COPD type: COPD with acute exacerbation Qualified Code(s): J44.1 - Chronic obstructive pulmonary disease with (acute) exacerbation Is this a current diagnosis for this admission?: Yes (5) Peripheral vascular disease Is this a current diagnosis for this admission?: Yes - Plan Summary Plan Summary: She will continue present treatment
[2016-08-26] MEDS: ATORVASTATIN CALCIUM 40 MG TABLET PO SCH (21:14)
[2016-08-27] MEDS: GABAPENTIN 300 MG CAPSULE PO SCH ×3 (05:35→21:27)
[2016-08-27] MEDS: PRAMIPEXOLE DI-HCL 0.25 MG TABLET PO SCH ×3 (05:35→21:27)
[2016-08-27] MEDS: INSULIN LISPRO 100 UNIT/ML 3 ML VIAL SUBCUT PRN ×3 (09:00→17:08)
[2016-08-27] MEDS: METFORMIN HCL 500 MG TABLET PO SCH ×2 (09:00→16:19)
[2016-08-27] MEDS: ENOXAPARIN SODIUM INJ 40 MG/0.4 ML DISP.SYRIN SUBCUT SCH (09:37)
[2016-08-27] MEDS: TRAMADOL HCL 50 MG TABLET PO PRN ×3 (09:39→21:58)
[2016-08-27] MEDS: FERROUS SULFATE 325 MG TABLET PO SCH (09:39)
[2016-08-27] MEDS: LEVOFLOXACIN 750 MG TABLET PO SCH (09:39)
[2016-08-27] MEDS: LANSOPRAZOLE 30 MG TAB.RAP.DR PO SCH (09:42)
[2016-08-27] MEDS: PIOGLITAZONE HCL 15 MG TABLET PO SCH (09:42)
[2016-08-27] MEDS: FLUTICASONE/SALMETEROL DISKUS 250-50 MCG/DOSE IH SCH ×2 (09:42→21:27)
[2016-08-27] MEDS: TIOTROPIUM BROMIDE DPI 5 CAP/KIT (18 MCG/CAP) IH SCH (09:44)
[2016-08-27] MEDS: ONDANSETRON HCL INJ/PF 4 MG/2 ML SDV IV PRN ×3 (09:46→21:58)
[2016-08-27] MEDS: METOPROLOL TARTRATE 25 MG TABLET PO SCH ×2 (15:57→21:27)
[2016-08-27] MEDS: SACUBITRIL/VALSARTAN 24 MG/26 MG TABLET PO SCH ×2 (15:57→21:27)
--- NOTE | 2016-08-27 17:32 | PDOC PROGRESS REPORT ---
Subjective Progress Note for:: 08/27/16 Subjective:: Patient condition is improving daily but surely Physical Exam Vital Signs: Temp Pulse Resp BP Pulse Ox 98.2 F 93 14 115/60 99 08/27/16 16:01 08/27/16 16:01 08/27/16 16:01 08/27/16 16:01 08/27/16 16:01 Intake & Output 08/26/16 08/27/16 08/28/16 06:59 06:59 06:59 Intake Total 704 1447 900 Output Total 620 700 500 Balance 84 747 400 Weight 103.5 kg General appearance: PRESENT: no acute distress Eye exam: PRESENT: PERRLA Respiratory exam: PRESENT: wheezes Cardiovascular exam: PRESENT: +S1, +S2 GI/Abdominal exam: PRESENT: soft Neurological exam: PRESENT: alert Results Laboratory Results: 08/26/16 06:27 08/26/16 06:27 08/23/16 08/23/16 08/23/16 13:28 13:28 19:10 Creatine Kinase 46 53 CK-MB (CK-2) 1.38 Troponin I < 0.012 NT-Pro-B Natriuret Pep 08/23/16 08/24/16 08/24/16 19:10 01:22 01:22 Creatine Kinase 48 CK-MB (CK-2) 1.41 1.58 Troponin I < 0.012 0.023 NT-Pro-B Natriuret Pep 08/24/16 05:49 Creatine Kinase CK-MB (CK-2) Troponin I NT-Pro-B Natriuret Pep 3960 H Impressions: Chest CT 08/23/16 00:00 IMPRESSION: Minimal bibasilar densities as noted above. Other findings as noted above. Chest X-Ray 08/23/16 07:01 IMPRESSION: No acute cardiopulmonary findings. Assessment & Plan - Diagnosis (1) Acute hypercapnic respiratory failure Is this a current diagnosis for this admission?: Yes (2) Chronic obstructive pulmonary disease with (acute) exacerbation Is this a current diagnosis for this admission?: Yes (3) Acute chronic obstructive pulmonary disease with respiratory distress Is this a current diagnosis for this admission?: Yes (4) COPD (chronic obstructive pulmonary disease) Qualifiers: COPD type: COPD with acute exacerbation Qualified Code(s): J44.1 - Chronic obstructive pulmonary disease with (acute) exacerbation Is this a current diagnosis for this admission?: Yes (5) Peripheral vascular disease Is this a current diagnosis for this admission?: Yes - Plan Summary Plan Summary: She will continue present treatment
[2016-08-27] MEDS: ATORVASTATIN CALCIUM 40 MG TABLET PO SCH (21:27)
[2016-08-28] MEDS: TRAMADOL HCL 50 MG TABLET PO PRN ×3 (05:51→18:49)
[2016-08-28] MEDS: GABAPENTIN 300 MG CAPSULE PO SCH ×3 (05:51→21:37)
[2016-08-28] MEDS: PRAMIPEXOLE DI-HCL 0.25 MG TABLET PO SCH ×3 (05:51→21:37)
[2016-08-28] MEDS: METFORMIN HCL 500 MG TABLET PO SCH ×2 (08:05→17:46)
[2016-08-28] MEDS: INSULIN LISPRO 100 UNIT/ML 3 ML VIAL SUBCUT PRN ×3 (08:05→21:39)
[2016-08-28] MEDS: ENOXAPARIN SODIUM INJ 40 MG/0.4 ML DISP.SYRIN SUBCUT SCH (09:21)
[2016-08-28] MEDS: PIOGLITAZONE HCL 15 MG TABLET PO SCH (09:23)
[2016-08-28] MEDS: FERROUS SULFATE 325 MG TABLET PO SCH (09:23)
[2016-08-28] MEDS: LEVOFLOXACIN 750 MG TABLET PO SCH (09:23)
[2016-08-28] MEDS: LANSOPRAZOLE 30 MG TAB.RAP.DR PO SCH (09:23)
[2016-08-28] MEDS: FLUTICASONE/SALMETEROL DISKUS 250-50 MCG/DOSE IH SCH ×2 (09:26→21:37)
[2016-08-28] MEDS: ONDANSETRON HCL INJ/PF 4 MG/2 ML SDV IV PRN ×2 (09:27→18:49)
[2016-08-28] MEDS: TIOTROPIUM BROMIDE DPI 5 CAP/KIT (18 MCG/CAP) IH SCH (09:27)
[2016-08-28] MEDS: SACUBITRIL/VALSARTAN 24 MG/26 MG TABLET PO SCH ×2 (14:37→21:37)
[2016-08-28] MEDS: METOPROLOL TARTRATE 25 MG TABLET PO SCH ×2 (14:37→21:32)
--- NOTE | 2016-08-28 16:01 | PDOC PROGRESS REPORT ---
Subjective Progress Note for:: 08/28/16 Subjective:: She was seen by the bedside, she complains of pain affecting multiple areas Physical Exam Vital Signs: Temp Pulse Resp BP Pulse Ox 98.8 F 80 16 104/63 99 08/28/16 11:22 08/28/16 14:00 08/28/16 14:00 08/28/16 11:22 08/28/16 14:00 Intake & Output 08/27/16 08/28/16 08/29/16 06:59 06:59 06:59 Intake Total 1447 1650 Output Total 700 1100 Balance 747 550 General appearance: PRESENT: mild distress Eye exam: PRESENT: PERRLA Respiratory exam: PRESENT: clear to auscultation rolf Cardiovascular exam: PRESENT: +S1, +S2 GI/Abdominal exam: PRESENT: soft Neurological exam: PRESENT: alert, CN II-XII grossly intact Results Laboratory Results: 08/26/16 06:27 08/26/16 06:27 08/23/16 08/23/16 08/23/16 13:28 13:28 19:10 Creatine Kinase 46 53 CK-MB (CK-2) 1.38 Troponin I < 0.012 NT-Pro-B Natriuret Pep 08/23/16 08/24/16 08/24/16 19:10 01:22 01:22 Creatine Kinase 48 CK-MB (CK-2) 1.41 1.58 Troponin I < 0.012 0.023 NT-Pro-B Natriuret Pep 08/24/16 05:49 Creatine Kinase CK-MB (CK-2) Troponin I NT-Pro-B Natriuret Pep 3960 H Impressions: Chest CT 08/23/16 00:00 IMPRESSION: Minimal bibasilar densities as noted above. Other findings as noted above. Chest X-Ray 08/23/16 07:01 IMPRESSION: No acute cardiopulmonary findings. Assessment & Plan - Diagnosis (1) Acute hypercapnic respiratory failure Is this a current diagnosis for this admission?: Yes (2) Chronic obstructive pulmonary disease with (acute) exacerbation Is this a current diagnosis for this admission?: Yes (3) Acute chronic obstructive pulmonary disease with respiratory distress Is this a current diagnosis for this admission?: Yes (4) COPD (chronic obstructive pulmonary disease) Qualifiers: COPD type: COPD with acute exacerbation Qualified Code(s): J44.1 - Chronic obstructive pulmonary disease with (acute) exacerbation Is this a current diagnosis for this admission?: Yes (5) Peripheral vascular disease Is this a current diagnosis for this admission?: Yes - Plan Summary Plan Summary: She will continue present treatment
[2016-08-28] MEDS: ATORVASTATIN CALCIUM 40 MG TABLET PO SCH (21:37)
[2016-08-29] MEDS: TRAMADOL HCL 50 MG TABLET PO PRN ×3 (00:45→18:00)
[2016-08-29] MEDS: GABAPENTIN 300 MG CAPSULE PO SCH ×3 (05:29→22:06)
[2016-08-29] MEDS: PRAMIPEXOLE DI-HCL 0.25 MG TABLET PO SCH ×3 (05:29→22:07)
[2016-08-29] MEDS: METFORMIN HCL 500 MG TABLET PO SCH ×2 (08:49→18:01)
[2016-08-29] MEDS: TIOTROPIUM BROMIDE DPI 5 CAP/KIT (18 MCG/CAP) IH SCH (10:35)
[2016-08-29] MEDS: LANSOPRAZOLE 30 MG TAB.RAP.DR PO SCH (10:36)
[2016-08-29] MEDS: LEVOFLOXACIN 750 MG TABLET PO SCH (10:36)
[2016-08-29] MEDS: FERROUS SULFATE 325 MG TABLET PO SCH (10:36)
[2016-08-29] MEDS: SACUBITRIL/VALSARTAN 24 MG/26 MG TABLET PO SCH ×2 (10:36→22:06)
[2016-08-29] MEDS: METOPROLOL TARTRATE 25 MG TABLET PO SCH ×2 (10:37→22:08)
[2016-08-29] MEDS: ENOXAPARIN SODIUM INJ 40 MG/0.4 ML DISP.SYRIN SUBCUT SCH (10:38)
[2016-08-29] MEDS: FLUTICASONE/SALMETEROL DISKUS 250-50 MCG/DOSE IH SCH ×2 (10:38→22:07)
[2016-08-29] MEDS: PIOGLITAZONE HCL 15 MG TABLET PO SCH (10:45)
[2016-08-29] MEDS: INSULIN LISPRO 100 UNIT/ML 3 ML VIAL SUBCUT PRN ×3 (13:04→22:07)
--- NOTE | 2016-08-29 19:00 | PDOC PROGRESS REPORT ---
Subjective Progress Note for:: 08/29/16 Subjective:: Patient was seen by the bedside, she stated that the p.o. Levaquin make her nauseous, she prefer intravenous Levaquin Physical Exam Vital Signs: Temp Pulse Resp BP Pulse Ox 98.6 F 80 20 91/54 L 99 08/29/16 16:00 08/29/16 16:00 08/29/16 16:00 08/29/16 16:00 08/29/16 16:00 Intake & Output 08/28/16 08/29/16 08/30/16 06:59 06:59 06:59 Intake Total 1650 1230 0 Output Total 1100 Balance 550 1230 0 General appearance: PRESENT: no acute distress Eye exam: PRESENT: PERRLA Respiratory exam: PRESENT: rhonchi Cardiovascular exam: PRESENT: +S1, +S2 GI/Abdominal exam: PRESENT: soft Neurological exam: PRESENT: alert, CN II-XII grossly intact Results Laboratory Results: 08/26/16 06:27 08/26/16 06:27 08/23/16 08/23/16 08/23/16 13:28 13:28 19:10 Creatine Kinase 46 53 CK-MB (CK-2) 1.38 Troponin I < 0.012 NT-Pro-B Natriuret Pep 08/23/16 08/24/16 08/24/16 19:10 01:22 01:22 Creatine Kinase 48 CK-MB (CK-2) 1.41 1.58 Troponin I < 0.012 0.023 NT-Pro-B Natriuret Pep 08/24/16 05:49 Creatine Kinase CK-MB (CK-2) Troponin I NT-Pro-B Natriuret Pep 3960 H Impressions: Chest CT 08/23/16 00:00 IMPRESSION: Minimal bibasilar densities as noted above. Other findings as noted above. Chest X-Ray 08/23/16 07:01 IMPRESSION: No acute cardiopulmonary findings. Assessment & Plan - Diagnosis (1) Acute hypercapnic respiratory failure Is this a current diagnosis for this admission?: Yes (2) Chronic obstructive pulmonary disease with (acute) exacerbation Is this a current diagnosis for this admission?: Yes (3) Acute chronic obstructive pulmonary disease with respiratory distress Is this a current diagnosis for this admission?: Yes (4) COPD (chronic obstructive pulmonary disease) Qualifiers: COPD type: COPD with acute exacerbation Qualified Code(s): J44.1 - Chronic obstructive pulmonary disease with (acute) exacerbation Is this a current diagnosis for this admission?: Yes (5) Peripheral vascular disease Is this a current diagnosis for this admission?: Yes - Plan Summary Plan Summary: She will continue IV Levaquin and other treatment
[2016-08-29] MEDS: ATORVASTATIN CALCIUM 40 MG TABLET PO SCH (22:06)
[2016-08-30] MEDS: ONDANSETRON HCL INJ/PF 4 MG/2 ML SDV IV PRN ×2 (00:28→11:20)
[2016-08-30] MEDS: TRAMADOL HCL 50 MG TABLET PO PRN ×3 (00:28→21:13)
[2016-08-30] MEDS: PRAMIPEXOLE DI-HCL 0.25 MG TABLET PO SCH ×3 (06:57→21:14)
[2016-08-30] MEDS: GABAPENTIN 300 MG CAPSULE PO SCH ×3 (06:57→21:13)
[2016-08-30] MEDS ORDERED: LEVOFLOXACIN 750 MG/D5W RTU 750 MG/150 ML RTUPB IV SCH (10:00)
[2016-08-30] MEDS: ENOXAPARIN SODIUM INJ 40 MG/0.4 ML DISP.SYRIN SUBCUT SCH (11:21)
[2016-08-30] MEDS: INSULIN LISPRO 100 UNIT/ML 3 ML VIAL SUBCUT PRN ×2 (11:21→21:14)
[2016-08-30] MEDS: METFORMIN HCL 500 MG TABLET PO SCH ×2 (11:26→17:17)
[2016-08-30] MEDS: PIOGLITAZONE HCL 15 MG TABLET PO SCH (11:26)
[2016-08-30] MEDS: FERROUS SULFATE 325 MG TABLET PO SCH (11:27)
[2016-08-30] MEDS: LANSOPRAZOLE 30 MG TAB.RAP.DR PO SCH (11:27)
[2016-08-30] MEDS: TIOTROPIUM BROMIDE DPI 5 CAP/KIT (18 MCG/CAP) IH SCH (11:32)
[2016-08-30] MEDS: FLUTICASONE/SALMETEROL DISKUS 250-50 MCG/DOSE IH SCH ×2 (11:33→21:14)
[2016-08-30] MEDS: METOPROLOL TARTRATE 25 MG TABLET PO SCH ×2 (17:19→21:14)
[2016-08-30] MEDS: SACUBITRIL/VALSARTAN 24 MG/26 MG TABLET PO SCH ×2 (17:19→21:13)
--- NOTE | 2016-08-30 19:29 | PDOC PROGRESS REPORT ---
Subjective Progress Note for:: 08/30/16 Subjective:: There is no new complaints, she has COPD with baseline wheezing Physical Exam Vital Signs: Temp Pulse Resp BP Pulse Ox 98.0 F 89 20 117/59 L 97 08/30/16 15:19 08/30/16 15:19 08/30/16 15:19 08/30/16 15:19 08/30/16 15:19 Intake & Output 08/29/16 08/30/16 08/31/16 06:59 06:59 06:59 Intake Total 1230 1360 420 Output Total 1850 900 Balance 1230 -490 -480 General appearance: PRESENT: no acute distress Eye exam: PRESENT: PERRLA Respiratory exam: PRESENT: wheezes Cardiovascular exam: PRESENT: +S1, +S2 GI/Abdominal exam: PRESENT: soft Neurological exam: PRESENT: alert, CN II-XII grossly intact Results Laboratory Results: 08/26/16 06:27 08/26/16 06:27 08/23/16 08/23/16 08/23/16 13:28 13:28 19:10 Creatine Kinase 46 53 CK-MB (CK-2) 1.38 Troponin I < 0.012 NT-Pro-B Natriuret Pep 08/23/16 08/24/16 08/24/16 19:10 01:22 01:22 Creatine Kinase 48 CK-MB (CK-2) 1.41 1.58 Troponin I < 0.012 0.023 NT-Pro-B Natriuret Pep 08/24/16 05:49 Creatine Kinase CK-MB (CK-2) Troponin I NT-Pro-B Natriuret Pep 3960 H Impressions: Chest CT 08/23/16 00:00 IMPRESSION: Minimal bibasilar densities as noted above. Other findings as noted above. Chest X-Ray 08/23/16 07:01 IMPRESSION: No acute cardiopulmonary findings. Assessment & Plan - Diagnosis (1) Acute hypercapnic respiratory failure Is this a current diagnosis for this admission?: Yes (2) Chronic obstructive pulmonary disease with (acute) exacerbation Is this a current diagnosis for this admission?: Yes (3) Acute chronic obstructive pulmonary disease with respiratory distress Is this a current diagnosis for this admission?: Yes (4) COPD (chronic obstructive pulmonary disease) Qualifiers: COPD type: COPD with acute exacerbation Qualified Code(s): J44.1 - Chronic obstructive pulmonary disease with (acute) exacerbation Is this a current diagnosis for this admission?: Yes (5) Peripheral vascular disease Is this a current diagnosis for this admission?: Yes
[2016-08-30] MEDS ORDERED: NYSTATIN TOPICAL POWDER 15 GM TP PRN (20:43)
[2016-08-30] MEDS: ONDANSETRON 4 MG TAB.RAPDIS PO PRN (21:13)
[2016-08-30] MEDS: ATORVASTATIN CALCIUM 40 MG TABLET PO SCH (21:13)
[2016-08-31] MEDS: PRAMIPEXOLE DI-HCL 0.25 MG TABLET PO SCH ×3 (05:51→21:22)
[2016-08-31] MEDS: GABAPENTIN 300 MG CAPSULE PO SCH ×3 (05:51→21:22)
[2016-08-31] MEDS: METFORMIN HCL 500 MG TABLET PO SCH ×2 (08:32→17:21)
[2016-08-31] MEDS: SACUBITRIL/VALSARTAN 24 MG/26 MG TABLET PO SCH ×2 (09:27→21:22)
[2016-08-31] MEDS: TIOTROPIUM BROMIDE DPI 5 CAP/KIT (18 MCG/CAP) IH SCH (09:28)
[2016-08-31] MEDS: LANSOPRAZOLE 30 MG TAB.RAP.DR PO SCH (09:28)
[2016-08-31] MEDS: PIOGLITAZONE HCL 15 MG TABLET PO SCH (09:28)
[2016-08-31] MEDS: LEVOFLOXACIN 750 MG TABLET PO SCH (09:28)
[2016-08-31] MEDS: FERROUS SULFATE 325 MG TABLET PO SCH (09:28)
[2016-08-31] MEDS: METOPROLOL TARTRATE 25 MG TABLET PO SCH ×2 (09:29→21:22)
[2016-08-31] MEDS: ENOXAPARIN SODIUM INJ 40 MG/0.4 ML DISP.SYRIN SUBCUT SCH (09:34)
[2016-08-31] MEDS: TRAMADOL HCL 50 MG TABLET PO PRN ×2 (13:43→21:26)
--- NOTE | 2016-08-31 13:46 | RADIOLOGY REPORT (SQ) ---
EXAM DESCRIPTION: CHEST PA/LAT COMPLETED DATE/TIME: 08/31/2016 1:34 pm REASON FOR STUDY: pneumonia COMPARISON: 2016. TECHNIQUE: Frontal and lateral radiographic views of the chest acquired. NUMBER OF VIEWS: Two view. LIMITATIONS: None. FINDINGS: LUNGS AND PLEURA: No opacities, masses or pneumothorax. No pleural effusion. MEDIASTINUM AND HILAR STRUCTURES: No masses or contour abnormalities. HEART AND VASCULAR STRUCTURES: Heart normal size. No evidence for failure. BONES: No acute findings. HARDWARE: None in the chest. OTHER: No other significant finding. IMPRESSION: NO SIGNIFICANT RADIOGRAPHIC FINDING IN THE CHEST. TECHNICAL DOCUMENTATION: JOB ID: [id number] [employer]- All Rights Reserved
[2016-08-31] MEDS: FLUTICASONE/SALMETEROL DISKUS 250-50 MCG/DOSE IH SCH ×2 (13:48→21:22)
[2016-08-31] MEDS: INSULIN LISPRO 100 UNIT/ML 3 ML VIAL SUBCUT PRN (17:21)
[2016-08-31] MEDS: ATORVASTATIN CALCIUM 40 MG TABLET PO SCH (21:22)
[2016-09-01] MEDS: PRAMIPEXOLE DI-HCL 0.25 MG TABLET PO SCH (05:08)
[2016-09-01] MEDS: GABAPENTIN 300 MG CAPSULE PO SCH (05:08)
[2016-09-01] MEDS: TRAMADOL HCL 50 MG TABLET PO PRN ×2 (05:11→09:29)
[2016-09-01] MEDS: LEVOFLOXACIN 750 MG TABLET PO SCH (09:13)
[2016-09-01] MEDS: SACUBITRIL/VALSARTAN 24 MG/26 MG TABLET PO SCH (09:14)
[2016-09-01] MEDS: PIOGLITAZONE HCL 15 MG TABLET PO SCH (09:14)
[2016-09-01] MEDS: LANSOPRAZOLE 30 MG TAB.RAP.DR PO SCH (09:14)
[2016-09-01] MEDS: METOPROLOL TARTRATE 25 MG TABLET PO SCH (09:14)
[2016-09-01] MEDS: FERROUS SULFATE 325 MG TABLET PO SCH (09:14)
[2016-09-01] MEDS: METFORMIN HCL 500 MG TABLET PO SCH (09:14)
[2016-09-01] MEDS: FLUTICASONE/SALMETEROL DISKUS 250-50 MCG/DOSE IH SCH (09:15)
[2016-09-01] MEDS: ENOXAPARIN SODIUM INJ 40 MG/0.4 ML DISP.SYRIN SUBCUT SCH (09:16)
[2016-09-01] MEDS: TIOTROPIUM BROMIDE DPI 5 CAP/KIT (18 MCG/CAP) IH SCH (09:16)
[2016-09-01] MEDS: ONDANSETRON 4 MG TAB.RAPDIS PO PRN (09:29)
[2016-09-01 10:39] VITALS: BP 94/43
[2016-09-01] MEDS: INSULIN LISPRO 100 UNIT/ML 3 ML VIAL SUBCUT PRN (11:39)
--- NOTE | 2016-09-01 12:27 | PDOC DISCHARGE SUMMARY ---
General - Admit/Disc Date/PCP Admission Date/Primary Care Provider: 08/23/16 12:59 TANISHA POLLARD MD Discharge Date: 08/31/16 - Discharge Diagnosis (1) Acute hypercapnic respiratory failure Is this a current diagnosis for this admission?: Yes (2) Chronic obstructive pulmonary disease with (acute) exacerbation Is this a current diagnosis for this admission?: Yes (3) Acute chronic obstructive pulmonary disease with respiratory distress Is this a current diagnosis for this admission?: Yes (4) COPD (chronic obstructive pulmonary disease) Is this a current diagnosis for this admission?: Yes (5) Peripheral vascular disease Is this a current diagnosis for this admission?: Yes (6) Coronary artery disease Is this a current diagnosis for this admission?: Yes (7) Diabetes mellitus type 2 in obese Is this a current diagnosis for this admission?: Yes - Additional Information Resuscitation Status: Full Code Discharge Activity: Activity As Tolerated, Energy Conservation Home Medications: Albuterol Sulfate [Proair HFA] 2 puff IH Q4 PRN 08/23/16 Atorvastatin Calcium [Lipitor 40 mg Tablet] 40 mg PO QHS 08/23/16 Ferrous Sulfate [Iron] 325 mg PO DAILY 08/23/16 Fluticasone/Salmeterol [Advair 250-50 Diskus 14 Dose/Diskus] 1 inh IH Q12 Gabapentin [Neurontin 300 mg Capsule] 900 mg PO Q8 08/23/16 Metformin HCl [Metformin HCl ER] 500 mg PO QPM 08/23/16 Metoprolol Tartrate [Lopressor 25 mg Tablet] 12.5 mg PO Q12 08/23/16 Pioglitazone HCl [Actos] 45 mg PO DAILY 08/23/16 Pramipexole Di-HCl [Mirapex] 0.125 mg PO Q8 08/23/16 Sacubitril/Valsartan [Entresto 24 mg-26 mg Tablet] 1 tab PO Q12 08/23/16 Tiotropium [place] [Spiriva Handihaler 5 Cap/Kit (18 Mcg/Cap)] 1 cap IH DAILY Tramadol HCl/Acetaminophen [Ultracet Tablet] 1 tab PO Q6HP PRN 08/23/16 History of Present Illness History of Present Illness: TORREY MARKS is a 65 year old female, she has multiple comorbid conditions including chronic obstructive pulmonary disease, chronic respiratory failure on maintenance oxygen, coronary artery disease, peripheral vascular disease, multiple hospitalization. She was transferred from home to the emergency room for evaluation of acute respiratory distress. She had a low oxygen saturation in the low 70s she was treated with noninvasive positive pressure ventilation, BiPAP machine. CT chest without contrast was done it showed minimal groundglass opacities in the posterior sulcus of each lung right more than left this could represent atelectatic changes or a minimal infiltrate, also found was linear scarring or subsegmental atelectasis in the left lung base. There is no consolidation or pleural effusions. I saw the patient by the bedside, she complain of pain in the low back. Hospital Course Hospital Course: She has a history of very severe chronic obstructive pulmonary disease, she presented with acute hypoxemic respiratory failure in the emergency room, she required noninvasive positive pressure ventilation with BiPAP. CT chest was done did not show any definitive infiltrate or consolidation to suggest pneumonia she was treated empirically with IV antibiotic Levaquin, bronchodilators DuoNeb, noninvasive positive pressure ventilation BiPAP machine. He complained of pain in multiple joints, she required the medication , Ultram. She has multiple comorbid conditions including coronary artery disease, peripheral vascular disease, COPD, type 2 diabetes mellitus heart disease. Physical Exam Vital Signs: Temp Pulse Resp BP Pulse Ox 97.8 F 78 18 94/43 L 99 09/01/16 10:37 09/01/16 10:37 09/01/16 10:37 09/01/16 10:37 09/01/16 10:37 Intake & Output 08/31/16 09/01/16 09/02/16 06:59 06:59 06:59 Intake Total 1470 1700 Output Total 1350 800 Balance 120 900 General appearance: PRESENT: no acute distress Eye exam: PRESENT: PERRLA Respiratory exam: PRESENT: rhonchi Cardiovascular exam: PRESENT: +S1, +S2 GI/Abdominal exam: PRESENT: soft Neurological exam: PRESENT: alert Results Laboratory Results: 08/26/16 06:27 08/26/16 06:27 08/23/16 08/23/16 08/23/16 13:28 13:28 19:10 Creatine Kinase 46 53 CK-MB (CK-2) 1.38 Troponin I < 0.012 NT-Pro-B Natriuret Pep 08/23/16 08/24/1617 19:10 01:22 01:22 Creatine Kinase 48 CK-MB (CK-2) 1.41 1.58 Troponin I < 0.012 0.023 NT-Pro-B Natriuret Pep 08/24/16 05:49 Creatine Kinase CK-MB (CK-2) Troponin I NT-Pro-B Natriuret Pep 3960 H Impressions: Chest CT 08/23/16 00:00 IMPRESSION: Minimal bibasilar densities as noted above. Other findings as noted above. Chest X-Ray 08/31/16 00:00 IMPRESSION: NO SIGNIFICANT RADIOGRAPHIC FINDING IN THE CHEST.
== END 2016-09-01 13:15 | disposition home or self-care (01) | DRG 189 ==
LOC: ER 06:59 → UNDOADMIN 09:14 → EH 09:14 → 4S 14:12
PROVIDERS: ADMIT Internal Medicine; ATTEND Internal Medicine
DX: J96.22 Acute and chronic respiratory failure with hypercapnia (principal); J44.1 Chronic obstructive pulmonary disease with (acute) exacerbation; E87.5 Hyperkalemia; E11.9 Type 2 diabetes mellitus without complications; M79.7 Fibromyalgia; J96.21 Acute and chronic respiratory failure with hypoxia; I73.9 Peripheral vascular disease, unspecified; Z79.84 Long term (current) use of oral hypoglycemic drugs; Z99.81 Dependence on supplemental oxygen; Z79.51 Long term (current) use of inhaled steroids; Z79.899 Other long term (current) drug therapy; Z86.14 Personal history of Methicillin resistant Staphylococcus aureus infection; Z87.891 Personal history of nicotine dependence
CPT/HCPCS: 36415; 71010; 71020; 71250; 80048; 80053; 80061; 80076; 81001; 82140; 82150; 82550; 82553; 82803; 82962; 83036; 83690; 83735; 83880; 84100; 84439; 84443; 84484; 85025; 85610; 85730; 87040; 93005; 93010; 94660; 99291; J1650; J1815; J1956; J2405; J3490; J7620; S0119

== ENCOUNTER 2016-09-04 14:13 | Inpatient (IN) | payer MEDICAID ==
[2016-09-04] MEDS: IPRATROPIUM/ALBUTEROL 0.5-2.5 MG/3 ML AMPUL NEB SCH ×3 (14:49→16:13)
[2016-09-04 14:50] LABS: ABSOLUTE BASOPHILS # (AUTO) 0.1 10^3/uL (0.0-0.2); ABSOLUTE EOSINOPHILS # (AUTO) 0.2 10^3/uL (0.0-0.6); ABSOLUTE LYMPHOCYTES (AUTO) 1.3 10^3/uL (0.5-4.7); ABSOLUTE MONOCYTES (AUTO) 0.9 10^3/uL (0.1-1.4); ABSOLUTE NEUT (AUTO) 6.9 10^3/uL (1.7-8.2); BASOPHILS % (AUTO) 0.9 % (0-2); EOSINOPHILS % (AUTO) 2.5 % (0-6); HEMATOCRIT 33.6 % (36.0-47.0); HEMOGLOBIN 10.4 g/dL (12.0-15.5); HGB HCT DIFFERENCE -2.4; LYMPHOCYTES % (AUTO) 14.2 % (13-45); MEAN CORPUSCULAR HEMOGLOBIN 29.5 pg (27.0-33.4); MEAN CORPUSCULAR HGB CONC 30.9 g/dL (32.0-36.0); MEAN CORPUSCULAR VOLUME 96 fl (80-97); MONOCYTES % (AUTO) 9.2 % (3-13); RED BLOOD COUNT 3.51 10^6/uL (3.72-5.28); RED CELL DISTRIBUTION WIDTH 15.3 % (11.5-14.0); SEGMENTED NEUTROPHILS % (AUTO) 73.2 % (42-78); WHITE BLOOD COUNT 9.4 10^3/uL (4.0-10.5)
[2016-09-04 15:00] LABS: PROTHROMBIN TIME 12.4 SEC (11.4-15.4)
[2016-09-04 15:08] LABS: ALANINE AMINOTRANSFERASE 24 U/L (9-52); ALKALINE PHOSPHATASE 73 U/L (38-126); ANION GAP 7 (5-19); ASPARTATE AMINO TRANSFERASE 25 U/L (14-36); BILIRUBIN,DIRECT 0.3 mg/dL (0.0-0.4); BILIRUBIN,TOTAL 0.4 mg/dL (0.2-1.3); BLOOD UREA NITROGEN 23 mg/dL (7-20); CALCIUM 8.4 mg/dL (8.4-10.2); CARBON DIOXIDE 35 mmol/L (22-30); CHLORIDE 98 mmol/L (98-107); CREATININE RESULT 0.81 mg/dL (0.52-1.25); GLUCOSE 208 mg/dL (75-110); LIPASE 45.4 U/L (23-300); POTASSIUM 4.9 mmol/L (3.6-5.0); SODIUM 139.8 mmol/L (137-145)
[2016-09-04 15:19] LABS: ARTERIAL BLOOD BASE EXCESS 5.7 mmol/L
--- NOTE | 2016-09-04 15:20 | RADIOLOGY REPORT (SQ) ---
EXAM DESCRIPTION: CHEST SINGLE VIEW COMPLETED DATE/TIME: 09/04/2016 3:12 pm REASON FOR STUDY: bed 10 sepsis protocol COMPARISON: 08/31/2016 EXAM PARAMETERS: NUMBER OF VIEWS: One view. TECHNIQUE: Single frontal radiographic view of the chest acquired. RADIATION DOSE: NA LIMITATIONS: None. FINDINGS: LUNGS AND PLEURA: No opacities, masses or pneumothorax. No pleural effusion. MEDIASTINUM AND HILAR STRUCTURES: No masses. Contour normal. HEART AND VASCULAR STRUCTURES: The configuration of the heart and mediastinal structures is unchanged . BONES: No acute findings. HARDWARE: None in the chest. OTHER: No other significant finding. IMPRESSION: No significant interval change. No acute findings. Other findings as noted above TECHNICAL DOCUMENTATION: JOB ID: [id number]
[2016-09-04] MEDS ORDERED: LEVOFLOXACIN RTU 750 MG/D5W 150 ML IV ONE (15:32)
--- NOTE | 2016-09-04 16:00 | ER Document Report ---
ED Respiratory Problem - General Chief Complaint: Respiratory Distress Stated Complaint: DIFFICULTY BREATHING Time Seen by Provider: 09/04/16 14:45 Information source: Patient, Emergency Med Personnel Notes: 65-year-old female with past medical history of COPD on home oxygen who presents today with some respiratory distress. EMS states when they arrived her oxygen saturations were around 70%. She is on 2 L baseline nasal cannula home oxygen. Patient states she started to have some worsening shortness of breath yesterday. She also states some nonradiating substernal intermittent chest pain. She states some mild coughing. She also states some upper epigastric discomfort without vomiting or fevers. She denies any constipation or diarrhea. She denies any leg swelling above baseline. Patient was admitted here in [address] with [address] scan showing no obvious infiltrate of the lungs. She had a similar presentation at that time. TRAVEL OUTSIDE OF THE [place] IN LAST 30 DAYS: No - HPI Patient complains to provider of: Short of breath Onset: Other - See above Duration: Continuous Quality of pain: Other - See above Severity: Severe Pain Level: 1 Context: Other - See above Short of Breath: Severe Chest pain/discomfort: Center Cough: Nonproductive Sputum amount: None EMS treatments: Bronchodilators, Solumedrol Associated symptoms: Other - See above Similar symptoms previously: Yes Recently seen / treated by doctor: Yes - Related Data Allergies/Adverse Reactions: codeine [Codeine] Adverse Reaction (Unknown, Verified 08/23/16 08:03) Past Medical History - General Information source: Patient, Emergency Med Personnel - Social History Smoking Status: Former Smoker Cigarette use (# per day): No Chew tobacco use (# tins/day): No Frequency of alcohol use: None Drug Abuse: None Family History: Reviewed & Not Pertinent, Hypertension, Other - Alzheimer's, renal failure - Past Medical History Cardiac Medical History: Reports: Hx Congestive Heart Failure, Hx Coronary Artery Disease, Hx Hypercholesterolemia, Hx Hypertension, Hx Peripheral Vascular Disease Denies: Hx Heart Murmur Pulmonary Medical History: Reports: Hx Asthma, Hx Bronchitis, Hx COPD, Hx Respiratory Failure, Hx Sleep Apnea Denies: Hx Tuberculosis Neurological Medical History: Reports: Hx Migraine. Denies: Hx Seizures Endocrine Medical History: Reports: Hx Diabetes Mellitus Type 1, Hx Diabetes Mellitus Type 2 Renal/ Medical History: Reports: Hx Ovarian Cysts Malignancy Medical History: GI Medical History: Reports: Hx Gastritis, Hx Ulcer Musculoskeltal Medical History: Reports Hx Arthritis, Reports Hx Fibromyalgia, Reports Hx Musculoskeletal Deformity, Reports Hx Musculoskeletal Trauma Psychiatric Medical History: Reports: Hx Anxiety, Hx Depression Denies: Hx Attention Deficit Hyperactivity Disorder Traumatic Medical History: Reports: Hx Fractures - pinkie finger Infectious Medical History: Reports: Hx C-Diff, Hx MRSA Past Surgical History: Reports: Hx Appendectomy, Hx Cardiac Catheterization, Hx Cholecystectomy, Hx Coronary Stent, Hx Hysterectomy, Hx Orthopedic Surgery - right shoulder, Hx Tubal Ligation, Hx Vascular Surgery - Immunizations Immunizations up to date: Yes Hx Diphtheria, Pertussis, Tetanus Vaccination: Yes Hx Pneumococcal Vaccination: 02/17/10 Review of Systems - Review of Systems Constitutional: denies: Fever EENT: Nose congestion. denies: Eye discharge Cardiovascular: Chest pain. denies: Palpitations, Lightheaded Respiratory: Cough, Short of breath, Wheezing. denies: Hemoptysis Gastrointestinal: denies: Vomiting Genitourinary: denies: Dysuria Musculoskeletal: Leg swelling Skin: Other - no hives. denies: Rash Neurological/Psychological: Other - no slurred speech -: Yes All other systems reviewed and negative Physical Exam - Vital signs Vitals: Pulse Ox 93 09/04/16 14:14 Notes: Reviewed vital signs and nursing note as charted by RN. CONSTITUTIONAL: Alert answers questions with increased work of breathing HEAD: Normocephalic; atraumatic EYES: PERRL; Conjunctivae clear, sclerae non-icteric ENT: Normal nose; no rhinorrhea; moist mucous membranes; pharynx without lesions noted NECK: Supple without meningismus; non-tender; no cervical lymphadenopathy, no masses CARD: Regular rate and rhythm; no murmurs, no clicks, no rubs, no gallops; symmetric distal pulses RESP: Patient has obvious tachypnea. Patient has bilateral diffuse wheezing on inspiration and expiration. No stridor. No obvious rhonchi. ABD/GI: Normal bowel sounds; non-distended; soft, nontender to deep palpation of all 4 quadrants of the abdomen BACK: The back appears normal and is non-tender to palpation, there is no CVA tenderness EXT: Normal ROM in all joints; non-tender to palpation; no cyanosis, no effusions, 2+ bilateral lower extremity edema which is normal per patient lung SKIN: Normal color for age and race; warm; dry; good turgor; capillary refill < 2 seconds; no acute lesions noted NEURO: CN 2-12 intact. Moves all extremities equally; Motor and sensory function intact PSYCH: The patient's mood and manner are appropriate. Grooming and personal hygiene are appropriate. Course - Re-evaluation Re-evalutation: Given the above history and physical examination we placed the patient immediately on BiPAP and ordered a stat x-ray of the chest and an ABG. Patient's breathing has improved with the duo nebs, BiPAP, with laboratory values as recorded. EKG of the chest shows a heart rate of 101, sinus tachycardia, left bundle branch block. The left bundle branch block is an old finding according to an EKG on August 23, 2016. ABG shows a PCO2 of 70. This is congruent with CO2 retention and the patient COPD with wheezing. I do believe pulmonary embolism to be unlikely. 09/04/16 16:00 Patient's breathing has improved. I provided Levaquin. We will keep the patient on the BiPAP for comfort and management and admit the patient to the [facility]. - Vital Signs Vital signs: Temp Pulse Resp BP Pulse Ox 20 108/83 93 09/04/16 15:35 09/04/16 15:35 09/04/16 15:35 - Laboratory Result Diagrams: 09/04/16 14:35 09/04/16 14:35 Laboratory results interpreted by me: 09/04/16 09/04/16 09/04/16 14:35 14:35 15:06 RBC 3.51 L Hgb 10.4 L Hct 33.6 L MCHC 30.9 L RDW 15.3 H Carbonic Acid 2.14 H ABG pH 7.30 L ABG pCO2 71.0 H* ABG pO2 125.4 H ABG HCO3 33.9 H ABG Total CO2 36.1 H Carbon Dioxide 35 H BUN 23 H Glucose 208 H Critical Care Note - Critical Care Note Total time excluding time spent on procedures (mins): 45 Discharge - Discharge Clinical Impression: Acute bronchitis with chronic obstructive pulmonary disease (COPD), Hypoxia, Hypercapnia, Respiratory distress Condition: Serious Disposition: ADMITTED INPATIENT Admitting Provider: Donnamo Unit Admitted: [facility]
[2016-09-04] MEDS ORDERED: MORPHINE SULFATE 10 MG/ML INJ IV ONE (16:09)
--- NOTE | 2016-09-04 18:56 | RADIOLOGY REPORT (SQ) ---
EXAM DESCRIPTION: CTA CHEST COMPLETED DATE/TIME: 09/04/2016 6:18 pm REASON FOR STUDY: 10; left abdominal pain COMPARISON: 08/23/2016 and 05/25/2014 TECHNIQUE: CT scan of the chest performed using helical scanning technique with dynamic intravenous contrast injection. Images reviewed with lung, soft tissue and bone windows. Reconstructed coronal and sagittal MPR images reviewed. Additional 3 dimensional post-processing performed to develop Maximal Intensity Projection images (PA P). All images stored on PACS. All CT scanners at this facility use dose modulation, iterative reconstruction, and/or weight based d osing when appropriate to reduce radiation dose to as low as reasonably achievable (ALARA). [facility]: Dose Right [facility]: CareDose [facility]: Dose Right [facility]: Teradose 4D [facility]: [employer] CONTRAST TYPE AND DOSE: contrast/concentration: Isovue 370.00 mg/ml; Total Contrast Delivered: 82.0 ml; Total Saline Delivered: 110.1 ml RENAL FUNCTION: GFR > 60. RADIATION DOSE: Up-to-date CT equipment and radiation dose reduction techniques were employed. CTDIv ol: 36.6 - 49.6 mGy. DLP: 1383 mGy-cm. . LIMITATIONS: None. FINDINGS: LUNGS AND PLEURA: Mild dependent subsegmental atelectasis and/ or scarring. No masses, co nsolidation, pneumothorax. No pleural effusions, calcifications. AORTA AND GREAT VESSELS: Atherosclerotic calcifications including coronary artery calcifications. No aneurysm or dissection. HEART: No pericardial effusion. PULMONARY ARTERIES: No emboli visualized in the main pulmonary arteries or the segmental branches. HILAR AND MEDIASTINAL STRUCTURES: No identified masses or abnormal nodes. Secretions seen within the trachea series 5, image 121. HARDWARE: None in the chest. UPPER ABDOMEN: No significant findings. Limited exam. THYROID AND OTHER SOFT TISSUES: Stable fatty nodule right lobe of the thyroid. No new masses. No ad enopathy. BONES: No acute or significant finding. 3D MIPS: Confirm above findings. OTHER: No other significant finding. IMPRESSION: NO PULMONARY EMBOLI OR ACUTE INTRATHORACIC PROCESS IDENTIFIED. NO SIGNIFICANT CHANGE FR OM PRIOR STUDIES. TECHNICAL DOCUMENTATION: JOB ID: [id number] Quality ID # [id number]: Final reports with documentation of one or more dose reduction techniques (e.g., Au tomated exposure control, adjustment of the mA and/or kV according to patient size, use of iterative reconstruction technique) 2011 [employer]- All Rights Reserved
[2016-09-04] MEDS ORDERED: TRAMADOL HCL PO PRN (21:41)
[2016-09-04] MEDS ORDERED: ALBUTEROL SULFATE HFA (90 MCG/PUFF) 8 GM MDI (1 MDI/ER DISP) IH PRN (21:41)
[2016-09-04] MEDS ORDERED: ACETAMINOPHEN PO PRN (21:41)
[2016-09-04] MEDS ORDERED: DEXTROSE 40% GEL 15 GM TUBE X 2 PO PRN (21:49)
[2016-09-04] MEDS ORDERED: DEXTROSE 50%-WATER SYRINGE 12.5 GM/25 ML DOSE IV PRN (21:49)
[2016-09-04] MEDS ORDERED: GLUCAGON,HUMAN RECOMB 1 MG INJ IM PRN (21:49)
[2016-09-04] MEDS ORDERED: DEXTROSE 50%-WATER SYRINGE 25 GM/50 ML DOSE IV PRN (21:49)
[2016-09-04] MEDS ORDERED: DEXTROSE 40% GEL 15 GM TUBE PO PRN (21:49)
[2016-09-04] MEDS: GABAPENTIN 300 MG CAPSULE PO SCH (22:49)
[2016-09-04] MEDS: ATORVASTATIN CALCIUM 40 MG TABLET PO SCH (22:49)
[2016-09-04] MEDS: INSULIN LISPRO 100 UNIT/ML 3 ML VIAL SUBCUT PRN (22:49)
[2016-09-04] MEDS: SIMETHICONE 80 MG TAB.CHEW PO PRN (22:52)
[2016-09-04] MEDS: METOPROLOL TARTRATE 25 MG TABLET PO SCH (22:53)
[2016-09-04] MEDS ORDERED: FLUTICASONE/SALMETEROL DISKUS 250-50 MCG/DOSE IH ONE (23:23)
[2016-09-04] MEDS ORDERED: PRAMIPEXOLE DI-HCL 0.25 MG TABLET ONE (23:26)
[2016-09-04] MEDS: FLUTICASONE/SALMETEROL DISKUS 250-50 MCG/DOSE IH SCH (23:30)
[2016-09-04] MEDS: PRAMIPEXOLE DI-HCL 0.25 MG TABLET PO SCH (23:30)
[2016-09-05] MEDS: SACUBITRIL/VALSARTAN 24 MG/26 MG TABLET PO SCH ×3 (00:15→22:29)
[2016-09-05] MEDS: PRAMIPEXOLE DI-HCL 0.25 MG TABLET PO SCH ×4 (00:17→22:26)
[2016-09-05] MEDS: FLUTICASONE/SALMETEROL DISKUS 250-50 MCG/DOSE IH SCH ×3 (00:17→22:22)
[2016-09-05 00:59] LABS: APPEARANCE,URINE SLIGHTLY-CLOUDY; BILIRUBIN,URINE NEGATIVE (NEGATIVE); GLUCOSE, URINE >=500 mg/dL (NEGATIVE); KETONES,URINE NEGATIVE (NEGATIVE); LEUKOCYTE ESTERASE,URINE TRACE (NEGATIVE); NITRITE,URINE POSITIVE (NEGATIVE); PROTEIN,URINE NEGATIVE (NEGATIVE); URINE SPECIFIC GRAVITY 1.037; UROBILINOGEN,URINE NEGATIVE mg/dL (<2.0)
[2016-09-05] MEDS ORDERED: TRAMADOL HCL 50 MG TABLET PO PRN (03:37)
[2016-09-05] MEDS ORDERED: ACETAMINOPHEN 325 MG TABLET PO PRN (03:38)
[2016-09-05] MEDS ORDERED: TRAMADOL HCL PO PRN (03:45)
[2016-09-05] MEDS ORDERED: ACETAMINOPHEN PO PRN (03:45)
[2016-09-05] MEDS: GABAPENTIN 300 MG CAPSULE PO SCH ×3 (06:32→22:27)
[2016-09-05] MEDS: LANSOPRAZOLE 30 MG TAB.RAP.DR PO SCH (06:34)
[2016-09-05] MEDS: TIOTROPIUM BROMIDE DPI 5 CAP/KIT (18 MCG/CAP) IH SCH (10:42)
[2016-09-05] MEDS: PIOGLITAZONE HCL 15 MG TABLET PO SCH (10:42)
[2016-09-05] MEDS: SIMETHICONE 80 MG TAB.CHEW PO PRN ×4 (10:43→22:33)
[2016-09-05] MEDS: DULOXETINE HCL 30 MG CAPSULE.DR PO SCH (10:43)
[2016-09-05] MEDS: METOPROLOL TARTRATE 25 MG TABLET PO SCH ×2 (10:44→22:30)
[2016-09-05] MEDS: FERROUS SULFATE 325 MG TABLET PO SCH (10:44)
[2016-09-05] MEDS: CLOPIDOGREL BISULFATE 75 MG TABLET PO SCH (10:45)
[2016-09-05] MEDS: INSULIN LISPRO 100 UNIT/ML 3 ML VIAL SUBCUT PRN ×4 (10:45→23:31)
[2016-09-05] MEDS: TRAMADOL HCL 50 MG TABLET PO PRN ×2 (10:48→19:34)
[2016-09-05] MEDS: ONDANSETRON HCL INJ/PF 4 MG/2 ML SDV IV PRN (14:34)
--- NOTE | 2016-09-05 20:26 | PDOC H&P ---
History of Present Illness Admission Date/PCP: 09/04/16 21:17 TANISHA POLLARD MD History of Present Illness: TORREY MARKS is a 65 year old female, She has very severe chronic obstructive pulmonary disease, she was just discharged from this hospital on at that time she was admitted for acute respiratory distress due to COPD. She presented to the emergency room with acute respiratory distress, and in the emergency room a blood gas was drawn, pH was 7.30, PCO2 71. She had a stat CTA chest done in the emergency room it was negative for pulmonary embolism , there was no acute infiltrates or consolidation to suggest pneumonia. Patient breathing was supported with noninvasive positive pressure ventilation BiPAP and subsequently hospital admission was advised by the emergency room physician. Past Medical History Cardiac Medical History: Reports: Coronary Artery Disease, Hyperlipidema, Hypertension, Peripheral Vascular Disease Pulmonary Medical History: Reports: Asthma, Bronchitis, Chronic Obstructive Pulmonary Disease (COPD), Respiratory Failure, Sleep Apnea Neurological Medical History: Reports: Migraine Denies: Seizures Endocrine Medical History: Reports: Diabetes Mellitus Type 2 Renal/ Medical History: Malignancy Medical History: GI Medical History: Musculoskeltal Medical History: Reports: Arthritis, Fibromyalgia Psychiatric Medical History: Reports: Depression Denies: Attention Deficit Hyperactivity Disorder Infectious Medical History: Reports: Clostridium Difficile, Methicillin- Resistant Staph Aureus Past Surgical History Past Surgical History: Reports: Amputation, Appendectomy, Cardiac Catheterization, Cholecystectomy, Coronary Stent, Hysterectomy, Orthopedic Surgery - right shoulder, Tubal Ligation, Vascular Surgery Social History Smoking Status: Former Smoker Last Time Smoked: 2014 Frequency of Alcohol Use: None Hx Recreational Drug Use: No Drugs: None Hx Prescription Drug Abuse: No Family History Family History: Reviewed & Not Pertinent, Hypertension, Other - Alzheimer's, renal failure Parental Family History Reviewed: Yes Children Family History Reviewed: Yes Sibling(s) Family History Reviewed.: Yes Medication/Allergy Home Medications: Albuterol Sulfate [Proair HFA] 2 puff IH Q4HP PRN 08/23/16 Atorvastatin Calcium [Lipitor 40 mg Tablet] 40 mg PO QHS 08/23/16 Ferrous Sulfate [Iron] 325 mg PO DAILY 08/23/16 Fluticasone/Salmeterol [Advair 250-50 Diskus 14 Dose/Diskus] 1 inh IH Q12 Gabapentin [Neurontin 300 mg Capsule] 900 mg PO Q8 08/23/16 Metformin HCl [Metformin HCl ER] 500 mg PO QPM 08/23/16 Metoprolol Tartrate [Lopressor 25 mg Tablet] 12.5 mg PO Q12 08/23/16 Pioglitazone HCl [Actos] 45 mg PO DAILY 08/23/16 Pramipexole Di-HCl [Mirapex] 0.125 mg PO Q8 08/23/16 Sacubitril/Valsartan [Entresto 24 mg-26 mg Tablet] 1 tab PO Q12 08/23/16 Tiotropium Adel [Spiriva Handihaler 5 Cap/Kit (18 Mcg/Cap)] 1 puff IH DAILY 08/23/16 Tramadol HCl/Acetaminophen [Ultracet Tablet] 1 tab PO Q6HP PRN 08/23/16 Clopidogrel Bisulfate [Clopidogrel] 75 mg PO DAILY 09/04/16 Duloxetine HCl [Cymbalta] 60 mg PO DAILY 09/04/16 Omeprazole 40 mg PO DAILY 09/04/16 Simethicone [Gas Relief 80] 80 mg PO QID PRN 09/04/16 Allergies/Adverse Reactions: codeine [Codeine] Adverse Reaction (Unknown, Verified 08/23/16 08:03) Review of Systems Constitutional: PRESENT: weakness Eyes: ABSENT: visual disturbances Ears: ABSENT: hearing changes Cardiovascular: PRESENT: dyspnea on exertion Respiratory: PRESENT: dyspnea Gastrointestinal: ABSENT: abdominal pain, constipation, diarrhea, hematemesis, hematochezia, nausea, vomiting Genitourinary: ABSENT: dysuria, hematuria Musculoskeletal: ABSENT: joint swelling Integumentary: ABSENT: rash, wounds Neurological: ABSENT: abnormal gait, abnormal speech, confusion, dizziness, focal weakness, syncope Psychiatric: ABSENT: anxiety, depression, homidical ideation, suicidal ideation Endocrine: ABSENT: cold intolerance, heat intolerance, menstrual abnormalities, polydipsia, polyuria Hematologic/Lymphatic: ABSENT: easy bleeding, easy bruising, lymphadenopathy Physical Exam Vital Signs: Temp Pulse Resp BP Pulse Ox 98.6 F 82 20 107/56 L 97 09/05/16 15:29 09/05/16 18:57 09/05/16 16:00 09/05/16 15:29 09/05/16 15:29 Intake & Output 09/04/16 09/05/16 09/06/16 06:59 06:59 06:59 Intake Total 247 479 Output Total 400 Balance -153 479 Weight 125 kg General appearance: PRESENT: severe distress Head exam: PRESENT: atraumatic, normocephalic Eye exam: PRESENT: PERRLA Neck exam: PRESENT: full ROM Respiratory exam: PRESENT: rhonchi Cardiovascular exam: PRESENT: RRR, +S1, +S2 GI/Abdominal exam: PRESENT: soft Rectal exam: PRESENT: deferred Neurological exam: PRESENT: alert. ABSENT: motor sensory deficit Skin exam: PRESENT: dry, intact, warm Results Laboratory Results: 09/04/16 22:35 Urine Color YELLOW Urine Appearance SLIGHTLY-CLOUDY Urine pH 6.0 Ur Specific [place] 1.037 Urine Protein NEGATIVE Urine Glucose (UA) >=500 H Urine Ketones NEGATIVE Urine Blood NEGATIVE Urine Nitrite POSITIVE H Ur Leukocyte Esterase TRACE H Urine WBC (Auto) 4 Urine RBC (Auto) 1 Impressions: Chest X-Ray 09/04/16 14:18 IMPRESSION: No significant interval change. No acute findings. Other findings as noted above Chest/Abdomen CTA 09/04/16 16:08 IMPRESSION: NO PULMONARY EMBOLI OR ACUTE INTRATHORACIC PROCESS IDENTIFIED. NO SIGNIFICANT CHANGE FROM PRIOR STUDIES. Assessment & Plan - Diagnosis (1) Acute hypercapnic respiratory failure Is this a current diagnosis for this admission?: YesPlan: Patient presented with acute hypercapnic respiratory failure, she requires noninvasive positive pressure ventilation, BiPAP machine she will continue same for now (2) Chronic obstructive pulmonary disease with acute exacerbation Is this a current diagnosis for this admission?: Yes (3) Physical deconditioning Is this a current diagnosis for this admission?: Yes (4) Respiratory distress Is this a current diagnosis for this admission?: Yes (5) Coronary artery disease Qualifiers: Coronary Disease-Associated Artery/Lesion type: [place] artery [place] vs. 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
--- NOTE | 2016-09-05 20:36 | PDOC PROGRESS REPORT ---
Subjective Progress Note for:: 09/05/16 Subjective:: Patient was admitted yesterday when she presented with acute hypercapnic respiratory failure requiring noninvasive positive pressure ventilation with BiPAP machine she was seen by the bedside today she is still on the BiPAP, the urine culture is growing gram-negative rods no specific pathogen identified yet. Physical Exam Vital Signs: Temp Pulse Resp BP Pulse Ox 98.5 F 91 20 111/59 L 96 09/05/16 19:41 09/05/16 19:41 09/05/16 19:41 09/05/16 19:41 09/05/16 19:41 Intake & Output 09/04/16 09/05/16 09/06/16 06:59 06:59 06:59 Intake Total 247 479 Output Total 400 Balance -153 479 Weight 125 kg General appearance: PRESENT: severe distress Head exam: PRESENT: atraumatic, normocephalic Eye exam: PRESENT: PERRLA Ear exam: PRESENT: normal external ear exam Mouth exam: PRESENT: moist, tongue midline Neck exam: PRESENT: full ROM. ABSENT: carotid bruit, JVD, lymphadenopathy, thyromegaly Respiratory exam: PRESENT: wheezes Cardiovascular exam: PRESENT: +S1, +S2 Pulses: PRESENT: normal dorsalis pedis pul, +2 pedal pulses bilateral Vascular exam: PRESENT: normal capillary refill GI/Abdominal exam: PRESENT: soft Rectal exam: PRESENT: deferred Neurological exam: PRESENT: alert Psychiatric exam: PRESENT: appropriate affect, normal mood. ABSENT: homicidal ideation, suicidal ideation Skin exam: PRESENT: dry, intact, warm. ABSENT: cyanosis, rash Results Laboratory Results: 09/04/16 22:35 Urine Color YELLOW Urine Appearance SLIGHTLY-CLOUDY Urine pH 6.0 Ur Specific [place] 1.037 Urine Protein NEGATIVE Urine Glucose (UA) >=500 H Urine Ketones NEGATIVE Urine Blood NEGATIVE Urine Nitrite POSITIVE H Ur Leukocyte Esterase TRACE H Urine WBC (Auto) 4 Urine RBC (Auto) 1 Impressions: Chest X-Ray 09/04/16 14:18 IMPRESSION: No significant interval change. No acute findings. Other findings as noted above Chest/Abdomen CTA 09/04/16 16:08 IMPRESSION: NO PULMONARY EMBOLI OR ACUTE INTRATHORACIC PROCESS IDENTIFIED. NO SIGNIFICANT CHANGE FROM PRIOR STUDIES. Assessment & Plan - Diagnosis (1) Acute hypercapnic respiratory failure Is this a current diagnosis for this admission?: YesPlan: She will continue BiPAP to support breathing (2) Chronic obstructive pulmonary disease with acute exacerbation Is this a current diagnosis for this admission?: YesPlan: She will be started on IV Solu-Medrol 125 every 8 for 3 days (3) Physical deconditioning Is this a current diagnosis for this admission?: Yes (4) Respiratory distress Is this a current diagnosis for this admission?: Yes (5) Coronary artery disease Qualifiers: Coronary Disease-Associated Artery/Lesion type: [place] artery [place] vs. 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
[2016-09-05] MEDS ORDERED: ENOXAPARIN SODIUM INJ 40 MG/0.4 ML DISP.SYRIN SUBCUT ONE (22:00)
[2016-09-05] MEDS: METHYLPREDNISOLONE INJ 125 MG/2 ML SDV IV SCH (22:32)
[2016-09-05] MEDS: ATORVASTATIN CALCIUM 40 MG TABLET PO SCH (22:33)
[2016-09-05 22:45] LABS: PARTIAL THROMBOPLASTIN TIME 27.3 SEC (23.5-35.8)
[2016-09-05 22:49] LABS: LIPASE 47.4 U/L (23-300); MAGNESIUM 2.1 mg/dL (1.6-2.3); PHOSPHORUS 3.7 mg/dL (2.5-4.5)
[2016-09-05] MEDS: IPRATROPIUM/ALBUTEROL 0.5-2.5 MG/3 ML AMPUL NEB SCH (22:52)
[2016-09-05 23:20] LABS: THYROID STIMULATING HORMONE 0.35 uIU/mL (0.47-4.68)
[2016-09-06] MEDS: IPRATROPIUM/ALBUTEROL 0.5-2.5 MG/3 ML AMPUL NEB SCH ×8 (02:02→22:51)
[2016-09-06 04:53] LABS: HEMATOCRIT 30.9 % (36.0-47.0); HEMOGLOBIN 9.5 g/dL (12.0-15.5); HGB HCT DIFFERENCE -2.4; MEAN CORPUSCULAR HEMOGLOBIN 29.4 pg (27.0-33.4); MEAN CORPUSCULAR HGB CONC 30.8 g/dL (32.0-36.0); MEAN CORPUSCULAR VOLUME 96 fl (80-97); RED BLOOD COUNT 3.24 10^6/uL (3.72-5.28); RED CELL DISTRIBUTION WIDTH 15.5 % (11.5-14.0); WHITE BLOOD COUNT 14.3 10^3/uL (4.0-10.5)
[2016-09-06 05:21] LABS: ALANINE AMINOTRANSFERASE 29 U/L (9-52); ALBUMIN 3.5 g/dL (3.5-5.0); ALKALINE PHOSPHATASE 68 U/L (38-126); ANION GAP 8 (5-19); ASPARTATE AMINO TRANSFERASE 14 U/L (14-36); BILIRUBIN,DIRECT 0.3 mg/dL (0.0-0.4); BILIRUBIN,TOTAL 0.4 mg/dL (0.2-1.3); BLOOD UREA NITROGEN 27 mg/dL (7-20); CALCIUM 8.4 mg/dL (8.4-10.2); CARBON DIOXIDE 32 mmol/L (22-30); CHLORIDE 98 mmol/L (98-107); CHOLESTEROL 114.74 mg/dL (0-200); CREATININE RESULT 0.66 mg/dL (0.52-1.25); Direct HDL 51 mg/dL (>40); GLUCOSE 284 mg/dL (75-110); POTASSIUM 5.1 mmol/L (3.6-5.0); SODIUM 138.1 mmol/L (137-145); TRIGLYCERIDES 81 mg/dL (<150)
[2016-09-06 05:32] LABS: DIRECT LDL 52 mg/dL (<100)
[2016-09-06 05:33] LABS: BAND NEUTROPHILS % (MANUAL) 1 % (3-5); BASOPHILS % (MANUAL) 0 % (0-2); EOSINOPHILS % (MANUAL) 0 % (0-6); LYMPHOCYTES % (MANUAL) 0 % (13-45); TOTAL CELLS COUNTED 100
[2016-09-06 05:37] LABS: ANISOCYTOSIS SLIGHT; POIKILOCYTOSIS 1+; STOMATOCYTES 1+
[2016-09-06] MEDS: PRAMIPEXOLE DI-HCL 0.25 MG TABLET PO SCH ×3 (05:44→23:05)
[2016-09-06] MEDS: GABAPENTIN 300 MG CAPSULE PO SCH ×3 (05:46→23:06)
[2016-09-06] MEDS: LANSOPRAZOLE 30 MG TAB.RAP.DR PO SCH (05:48)
[2016-09-06] MEDS: METHYLPREDNISOLONE INJ 125 MG/2 ML SDV IV SCH ×3 (05:48→23:08)
--- NOTE | 2016-09-06 06:00 | EKG REPORT ---
SEVERITY:- ABNORMAL ECG - SINUS TACHYCARDIA PROBABLE LEFT ATRIAL ABNORMALITY LEFT BUNDLE BRANCH BLOCK : Confirmed by: Paula Gaxiola MD 06-Sep-2016 05:58:55
--- NOTE | 2016-09-06 06:00 | EKG REPORT ---
SEVERITY:- ABNORMAL ECG - SINUS TACHYCARDIA VENTRICULAR PREMATURE COMPLEX LEFT BUNDLE BRANCH BLOCK : Confirmed by: Paula Gaxiola MD 06-Sep-2016 05:58:49
[2016-09-06] MEDS: INSULIN LISPRO 100 UNIT/ML 3 ML VIAL SUBCUT PRN ×3 (08:03→16:34)
[2016-09-06] MEDS: FERROUS SULFATE 325 MG TABLET PO SCH (09:46)
[2016-09-06] MEDS: ENOXAPARIN SODIUM INJ 40 MG/0.4 ML DISP.SYRIN SUBCUT SCH (09:47)
[2016-09-06] MEDS: METOPROLOL TARTRATE 25 MG TABLET PO SCH ×2 (09:48→23:07)
[2016-09-06] MEDS: PIOGLITAZONE HCL 15 MG TABLET PO SCH (09:49)
[2016-09-06] MEDS: TRAMADOL HCL 50 MG TABLET PO PRN ×2 (09:49→18:15)
[2016-09-06] MEDS: CLOPIDOGREL BISULFATE 75 MG TABLET PO SCH (09:50)
[2016-09-06] MEDS: DULOXETINE HCL 30 MG CAPSULE.DR PO SCH (09:50)
[2016-09-06] MEDS: SIMETHICONE 80 MG TAB.CHEW PO PRN ×4 (09:50→23:00)
[2016-09-06] MEDS: SACUBITRIL/VALSARTAN 24 MG/26 MG TABLET PO SCH ×2 (09:51→23:09)
[2016-09-06] MEDS: FLUTICASONE/SALMETEROL DISKUS 250-50 MCG/DOSE IH SCH ×2 (09:51→23:04)
[2016-09-06] MEDS: TIOTROPIUM BROMIDE DPI 5 CAP/KIT (18 MCG/CAP) IH SCH (09:52)
[2016-09-06] MEDS ORDERED: DEXTROSE 40% GEL 15 GM TUBE X 2 PO PRN (18:05)
[2016-09-06] MEDS ORDERED: DEXTROSE 50%-WATER SYRINGE 12.5 GM/25 ML DOSE IV PRN (18:05)
[2016-09-06] MEDS ORDERED: GLUCAGON,HUMAN RECOMB 1 MG INJ IM PRN (18:05)
[2016-09-06] MEDS ORDERED: DEXTROSE 40% GEL 15 GM TUBE PO PRN (18:05)
[2016-09-06] MEDS ORDERED: DEXTROSE 50%-WATER SYRINGE 25 GM/50 ML DOSE IV PRN (18:05)
[2016-09-06 19:17] LABS: ANION GAP 11 (5-19); BLOOD UREA NITROGEN 24 mg/dL (7-20); CALCIUM 8.4 mg/dL (8.4-10.2); CARBON DIOXIDE 31 mmol/L (22-30); CHLORIDE 96 mmol/L (98-107); POTASSIUM 4.9 mmol/L (3.6-5.0); SODIUM 138.3 mmol/L (137-145)
[2016-09-06 19:48] LABS: GLUCOSE 427 mg/dL (75-110)
--- NOTE | 2016-09-06 21:59 | PDOC PROGRESS REPORT ---
Subjective Progress Note for:: 09/06/16 Subjective:: She was started on intravenous Solu-Medrol for the management of acute COPD exacerbation, she developed hypoglycemia secondary to IV Solu-Medrol, insulin infusion will be initiated. Physical Exam Vital Signs: Temp Pulse Resp BP Pulse Ox 98.8 F 97 20 131/61 H 95 09/06/16 19:42 09/06/16 20:10 09/06/16 20:10 09/06/16 19:42 09/06/16 20:10 Intake & Output 09/05/16 09/06/16 09/07/16 06:59 06:59 06:59 Intake Total 247 684 38 Output Total 400 900 Balance -153 -216 38 Weight 124.9 kg 124.9 kg General appearance: PRESENT: mild distress Eye exam: PRESENT: PERRLA Ear exam: PRESENT: normal external ear exam Mouth exam: PRESENT: moist, tongue midline Neck exam: PRESENT: full ROM Respiratory exam: PRESENT: wheezes Cardiovascular exam: PRESENT: RRR. ABSENT: diastolic murmur, rubs, systolic murmur Pulses: PRESENT: normal dorsalis pedis pul, +2 pedal pulses bilateral Vascular exam: PRESENT: normal capillary refill GI/Abdominal exam: PRESENT: normal bowel sounds, soft Rectal exam: PRESENT: deferred Neurological exam: PRESENT: alert Psychiatric exam: PRESENT: appropriate affect, normal mood Skin exam: PRESENT: dry, intact, warm. ABSENT: cyanosis, rash Results Laboratory Results: 09/06/16 04:21 09/06/16 18:50 09/05/16 09/05/16 09/05/16 22:15 22:15 22:15 WBC RBC Hgb Hct MCV MCH MCHC RDW Plt Count Seg Neutrophils % Lymphocytes % Monocytes % Eosinophils % Basophils % Absolute Neutrophils Absolute Lymphocytes Absolute Monocytes Absolute Eosinophils Absolute Basophils Sodium Potassium Chloride Carbon Dioxide Anion Gap BUN Creatinine Est GFR ( Amer) Est GFR (Non-Af Amer) Glucose Calcium Phosphorus 3.7 Magnesium 2.1 Total Bilirubin AST ALT Alkaline Phosphatase Ammonia 20.3 Total Protein Albumin Triglycerides Cholesterol LDL Cholesterol Direct VLDL Cholesterol HDL Cholesterol Amylase 34 Lipase 47.4 TSH 0.35 L Free T4 1.08 09/06/16 09/06/16 09/06/16 04:21 04:21 18:50 WBC 14.3 H RBC 3.24 L Hgb 9.5 L Hct 30.9 L MCV 96 MCH 29.4 MCHC 30.8 L RDW 15.5 H Plt Count 314 Seg Neutrophils % Not Reportable Lymphocytes % Not Reportable Monocytes % Not Reportable Eosinophils % Not Reportable Basophils % Not Reportable Absolute Neutrophils Not Reportable Absolute Lymphocytes Not Reportable Absolute Monocytes Not Reportable Absolute Eosinophils Not Reportable Absolute Basophils Not Reportable Sodium 138.1 138.3 Potassium 5.1 H 4.9 Chloride 98 96 L Carbon Dioxide 32 H 31 H Anion Gap 8 11 BUN 27 H 24 H Creatinine 0.66 0.60 Est GFR ( Amer) > 60 > 60 Est GFR (Non-Af Amer) > 60 > 60 Glucose 284 H 427 H* Calcium 8.4 8.4 Phosphorus Magnesium Total Bilirubin 0.4 AST 14 ALT 29 Alkaline Phosphatase 68 Ammonia Total Protein 6.0 L Albumin 3.5 Triglycerides 81 Cholesterol 114.74 LDL Cholesterol Direct 52 VLDL Cholesterol 16.0 HDL Cholesterol 51 Amylase Lipase TSH Free T4 09/05/16 09/05/16 09/06/16 22:15 22:15 04:21 CK-MB (CK-2) 1.29 1.07 NT-Pro-B Natriuret Pep 3110 H 09/06/16 11:23 CK-MB (CK-2) 1.09 NT-Pro-B Natriuret Pep Impressions: Chest X-Ray 09/04/16 14:18 IMPRESSION: No significant interval change. No acute findings. Other findings as noted above Chest/Abdomen CTA 09/04/16 16:08 IMPRESSION: NO PULMONARY EMBOLI OR ACUTE INTRATHORACIC PROCESS IDENTIFIED. NO SIGNIFICANT CHANGE FROM PRIOR STUDIES. Assessment & Plan - Diagnosis (1) Acute hypercapnic respiratory failure Is this a current diagnosis for this admission?: Yes (2) Chronic obstructive pulmonary disease with acute exacerbation Is this a current diagnosis for this admission?: Yes (3) Physical deconditioning Is this a current diagnosis for this admission?: Yes (4) Respiratory distress Is this a current diagnosis for this admission?: Yes (5) Coronary artery disease Qualifiers: Coronary Disease-Associated Artery/Lesion type: [place] artery [place] vs. transplanted heart: [place] heart Associated angina: angina presence unspecified Qualified Code(s): I25.10 - Atherosclerotic heart disease of [place] coronary artery without angina pectoris Is this a current diagnosis for this admission?: Yes (6) Diabetes mellitus Qualifiers: Diabetes mellitus type: type 2 Diabetes mellitus complication status: with neurologic complications Diabetes mellitus complication detail: with polyneuropathy Diabetes mellitus intermediate card tender insulin use: with intermediate card tender use Qualified Code(s): E11.42 - Type 2 diabetes mellitus with diabetic polyneuropathy; Z79.4 - longterm (current) use of insulin Is this a current diagnosis for this admission?: YesPlan: There is severe hypoglycemia due to intravenous Solu-Medrol, insulin infusion is started. (7) Urinary tract infection Qualifiers: Urinary tract infection type: site unspecified Hematuria presence: without hematuria Qualified Code(s): N39.0 - Urinary tract infection, site not specified Is this a current diagnosis for this admission?: Yes
[2016-09-06 22:43] LABS: ANION GAP 7 (5-19); BLOOD UREA NITROGEN 25 mg/dL (7-20); CALCIUM 8.5 mg/dL (8.4-10.2); CARBON DIOXIDE 34 mmol/L (22-30); CHLORIDE 98 mmol/L (98-107); CREATININE RESULT 0.54 mg/dL (0.52-1.25); GLUCOSE 327 mg/dL (75-110)
[2016-09-06 22:48] LABS: POTASSIUM 4.9 mmol/L (3.6-5.0)
[2016-09-06] MEDS: ATORVASTATIN CALCIUM 40 MG TABLET PO SCH (23:05)
[2016-09-07] MEDS: TRAMADOL HCL 50 MG TABLET PO PRN ×3 (00:48→22:06)
[2016-09-07] MEDS: IPRATROPIUM/ALBUTEROL 0.5-2.5 MG/3 ML AMPUL NEB SCH ×4 (01:59→10:42)
[2016-09-07] MEDS ORDERED: INSULIN REG, HUMAN 100 UNIT/ML 3 ML VIAL (PYX) ONE (03:43)
[2016-09-07] MEDS: INSULIN, REGULAR 100 UNIT/100 ML NORMAL SALINE IV PRN ×2 (03:59)
[2016-09-07 04:15] LABS: HEMATOCRIT 30.2 % (36.0-47.0); HEMOGLOBIN 9.8 g/dL (12.0-15.5); HGB HCT DIFFERENCE -0.8; MEAN CORPUSCULAR HEMOGLOBIN 30.4 pg (27.0-33.4); MEAN CORPUSCULAR HGB CONC 32.6 g/dL (32.0-36.0); MEAN CORPUSCULAR VOLUME 93 fl (80-97); RED BLOOD COUNT 3.24 10^6/uL (3.72-5.28); WHITE BLOOD COUNT 10.1 10^3/uL (4.0-10.5)
[2016-09-07 04:24] LABS: ANION GAP 7 (5-19); BLOOD UREA NITROGEN 24 mg/dL (7-20); CALCIUM 8.2 mg/dL (8.4-10.2); CARBON DIOXIDE 34 mmol/L (22-30); CHLORIDE 100 mmol/L (98-107); CREATININE RESULT 0.58 mg/dL (0.52-1.25); GLUCOSE 186 mg/dL (75-110); POTASSIUM 4.3 mmol/L (3.6-5.0); SODIUM 140.8 mmol/L (137-145)
[2016-09-07 04:31] LABS: BASOPHILS % (MANUAL) 0 % (0-2); EOSINOPHILS % (MANUAL) 0 % (0-6); LYMPHOCYTES % (MANUAL) 2 % (13-45); TOTAL CELLS COUNTED 100
[2016-09-07 04:32] LABS: ANISOCYTOSIS SLIGHT; TOXIC VACUOLATION PRESENT
[2016-09-07] MEDS: PRAMIPEXOLE DI-HCL 0.25 MG TABLET PO SCH ×3 (05:12→22:13)
[2016-09-07] MEDS: GABAPENTIN 300 MG CAPSULE PO SCH ×3 (05:13→22:05)
[2016-09-07] MEDS: LANSOPRAZOLE 30 MG TAB.RAP.DR PO SCH (05:14)
[2016-09-07] MEDS: METHYLPREDNISOLONE INJ 125 MG/2 ML SDV IV SCH ×3 (05:14→22:08)
[2016-09-07 08:36] LABS: ANION GAP 7 (5-19); BLOOD UREA NITROGEN 25 mg/dL (7-20); CALCIUM 8.3 mg/dL (8.4-10.2); CARBON DIOXIDE 35 mmol/L (22-30); CHLORIDE 100 mmol/L (98-107); CREATININE RESULT 0.55 mg/dL (0.52-1.25); GLUCOSE 145 mg/dL (75-110); POTASSIUM 4.4 mmol/L (3.6-5.0); SODIUM 141.5 mmol/L (137-145)
[2016-09-07] MEDS: FERROUS SULFATE 325 MG TABLET PO SCH (11:22)
[2016-09-07] MEDS: DULOXETINE HCL 30 MG CAPSULE.DR PO SCH (11:22)
[2016-09-07] MEDS: PIOGLITAZONE HCL 15 MG TABLET PO SCH (11:23)
[2016-09-07] MEDS: SACUBITRIL/VALSARTAN 24 MG/26 MG TABLET PO SCH ×2 (11:23→22:12)
[2016-09-07] MEDS: SIMETHICONE 80 MG TAB.CHEW PO PRN ×4 (11:24→22:21)
[2016-09-07] MEDS: ENOXAPARIN SODIUM INJ 40 MG/0.4 ML DISP.SYRIN SUBCUT SCH (11:24)
[2016-09-07] MEDS: CLOPIDOGREL BISULFATE 75 MG TABLET PO SCH (11:24)
[2016-09-07] MEDS: METOPROLOL TARTRATE 25 MG TABLET PO SCH ×2 (11:24→22:09)
[2016-09-07] MEDS: FLUTICASONE/SALMETEROL DISKUS 250-50 MCG/DOSE IH SCH ×2 (11:25→22:08)
[2016-09-07] MEDS ORDERED: IPRATROPIUM/ALBUTEROL 0.5-2.5 MG/3 ML AMPUL NEB PRN (11:28)
[2016-09-07] MEDS: TIOTROPIUM BROMIDE DPI 5 CAP/KIT (18 MCG/CAP) IH SCH (11:30)
--- NOTE | 2016-09-07 16:33 | PDOC PROGRESS REPORT ---
Subjective Progress Note for:: 09/07/16 Subjective:: Patient was seen by the bedside, she complained of myalgia involving both lower extremities. She is presently on Ultram for the control of pain, I will continue to avoid any strong opioid in this patient especially with a very severe lung disease, she is encouraged to be out of bed to chair, laying in bed will not help patient. Physical Exam Vital Signs: Temp Pulse Resp BP Pulse Ox 98.4 F 92 22 H 118/70 97 09/07/16 15:06 09/07/16 15:06 09/07/16 15:06 09/07/16 15:06 09/07/16 15:06 Intake & Output 09/06/16 09/07/16 09/08/16 06:59 06:59 06:59 Intake Total 684 1043 0 Output Total 1300 0 Balance -616 1043 0 Weight 124.9 kg 124.4 kg General appearance: PRESENT: no acute distress Respiratory exam: PRESENT: wheezes Cardiovascular exam: PRESENT: +S1, +S2 GI/Abdominal exam: PRESENT: soft Neurological exam: PRESENT: alert, CN II-XII grossly intact Results Laboratory Results: 09/07/16 04:06 09/07/16 08:13 09/06/16 09/06/16 09/07/16 18:50 21:55 04:06 WBC 10.1 RBC 3.24 L Hgb 9.8 L Hct 30.2 L MCV 93 MCH 30.4 MCHC 32.6 RDW 15.0 H Plt Count 321 Seg Neutrophils % Not Reportable Lymphocytes % Not Reportable Monocytes % Not Reportable Eosinophils % Not Reportable Basophils % Not Reportable Absolute Neutrophils Not Reportable Absolute Lymphocytes Not Reportable Absolute Monocytes Not Reportable Absolute Eosinophils Not Reportable Absolute Basophils Not Reportable Sodium 138.3 139.0 Potassium 4.9 4.9 Chloride 96 L 98 Carbon Dioxide 31 H 34 H Anion Gap 11 7 BUN 24 H 25 H Creatinine 0.60 0.54 Est GFR ( Amer) > 60 > 60 Est GFR (Non-Af Amer) > 60 > 60 Glucose 427 H* 327 H Calcium 8.4 8.5 09/07/16 09/07/16 04:06 08:13 WBC RBC Hgb Hct MCV MCH MCHC RDW Plt Count Seg Neutrophils % Lymphocytes % Monocytes % Eosinophils % Basophils % Absolute Neutrophils Absolute Lymphocytes Absolute Monocytes Absolute Eosinophils Absolute Basophils Sodium 140.8 141.5 Potassium 4.3 4.4 Chloride 100 100 Carbon Dioxide 34 H 35 H Anion Gap 7 7 BUN 24 H 25 H Creatinine 0.58 0.55 Est GFR ( Amer) > 60 > 60 Est GFR (Non-Af Amer) > 60 > 60 Glucose 186 H 145 H Calcium 8.2 L 8.3 L 09/05/16 09/05/16 09/06/16 22:15 22:15 04:21 CK-MB (CK-2) 1.29 1.07 NT-Pro-B Natriuret Pep 3110 H 09/06/16 11:23 CK-MB (CK-2) 1.09 NT-Pro-B Natriuret Pep Impressions: Chest X-Ray 09/04/16 14:18 IMPRESSION: No significant interval change. No acute findings. Other findings as noted above Chest/Abdomen CTA 09/04/16 16:08 IMPRESSION: NO PULMONARY EMBOLI OR ACUTE INTRATHORACIC PROCESS IDENTIFIED. NO SIGNIFICANT CHANGE FROM PRIOR STUDIES. Assessment & Plan - Diagnosis (1) Acute hypercapnic respiratory failure Is this a current diagnosis for this admission?: Yes (2) Chronic obstructive pulmonary disease with acute exacerbation Is this a current diagnosis for this admission?: Yes (3) Physical deconditioning Is this a current diagnosis for this admission?: Yes (4) Respiratory distress Is this a current diagnosis for this admission?: Yes (5) Coronary artery disease Qualifiers: Coronary Disease-Associated Artery/Lesion type: [place] artery [place] vs. 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
[2016-09-07] MEDS ORDERED: FUROSEMIDE INJ/PF 100 MG/10 ML SDV IV ONE (17:15)
[2016-09-07] MEDS: HYDROMORPHONE HCL INJ/PF 2 MG/ML AMPULE IV PRN (17:31)
[2016-09-07] MEDS: METFORMIN HCL 500 MG TABLET PO SCH (17:43)
--- NOTE | 2016-09-07 18:39 | PDOC CONSULTATION ---
Consultation Consult Date: 09/06/16 Consult reason:: acute/chronic resp failure History of Present Illness Admission Date/PCP: 09/04/16 21:17 TANISHA POLLARD MD History of Present Illness: TORREY MARKS is a 65 year old female, pATIENT KNOWN TO [facility] has very severe chronic obstructive pulmonary disease, she was just discharged from this hospital on 09/01/2016 at that time she was admitted for acute respiratory distress due to COPD. She presented to the emergency room with acute respiratory distress. Stat C TA chest was negative for pulmonary embolism, there was no acute infiltrates or consolidation to suggest pneumonia. Patient breathing was supported with noninvasive positive pressure ventilation BiPAP and subsequently hospital admission was advised by the emergency room physician. Past Medical History Cardiac Medical History: Reports: Congestive Heart Failure, Coronary Artery Disease, Hyperlipidema, Hypertension, Peripheral Vascular Disease Denies: Heart Murmur Pulmonary Medical History: Reports: Asthma, Bronchitis, Chronic Obstructive Pulmonary Disease (COPD), Respiratory Failure, Sleep Apnea Denies: Tuberculosis Neurological Medical History: Reports: Migraine Denies: Seizures Endocrine Medical History: Reports: Diabetes Mellitus Type 1, Diabetes Mellitus Type 2 Renal/ Medical History: Malignancy Medical History: GI Medical History: Musculoskeltal Medical History: Reports: Arthritis, Fibromyalgia Psychiatric Medical History: Reports: Depression Denies: Attention Deficit Hyperactivity Disorder Infectious Medical History: Reports: Clostridium Difficile, Methicillin- Resistant Staph Aureus Past Surgical History Past Surgical History: Reports: Amputation, Appendectomy, Cardiac Catheterization, Cholecystectomy, Coronary Stent, Hysterectomy, Orthopedic Surgery - right shoulder, Tubal Ligation, Vascular Surgery Social History Information Source: Patient, [facility] Records Smoking Status: Former Smoker Cigarettes Packs Per Day: 2 Number of Years Smokin Last Time Smoked: 2014 Passive smoke exposure as: Both Frequency of Alcohol Use: None Hx Recreational Drug Use: No Drugs: None Hx Prescription Drug Abuse: No Do you have pets?: No Have you had any respiratory illnesses as a child?: No Have you been exposed to any sick contacts recently?: No Have you travelled outside of [place] in the past 12 months?: No Family History Family History: Reviewed & Not Pertinent, Hypertension, Other - Alzheimer's, renal failure Parental Family History Reviewed: Yes Children Family History Reviewed: Yes Sibling(s) Family History Reviewed.: Yes Medication/Allergy Home Medications: Albuterol Sulfate [Proair HFA] 2 puff IH Q4HP PRN 08/23/16 Atorvastatin Calcium [Lipitor 40 mg Tablet] 40 mg PO QHS 08/23/16 Ferrous Sulfate [Iron] 325 mg PO DAILY 08/23/16 Fluticasone/Salmeterol [Advair 250-50 Diskus 14 Dose/Diskus] 1 inh IH Q12 Gabapentin [Neurontin 300 mg Capsule] 900 mg PO Q8 08/23/16 Metformin HCl [Metformin HCl ER] 500 mg PO QPM 08/23/16 Metoprolol Tartrate [Lopressor 25 mg Tablet] 12.5 mg PO Q12 08/23/16 Pioglitazone HCl [Actos] 45 mg PO DAILY 08/23/16 Pramipexole Di-HCl [Mirapex] 0.125 mg PO Q8 08/23/16 Sacubitril/Valsartan [Entresto 24 mg-26 mg Tablet] 1 tab PO Q12 08/23/16 Tiotropium [place] [Spiriva Handihaler 5 Cap/Kit (18 Mcg/Cap)] 1 puff IH DAILY 08/23/16 Tramadol HCl/Acetaminophen [Ultracet Tablet] 1 tab PO Q6HP PRN 08/23/16 Clopidogrel Bisulfate [Clopidogrel] 75 mg PO DAILY 09/04/16 Duloxetine HCl [Cymbalta] 60 mg PO DAILY 09/04/16 Omeprazole 40 mg PO DAILY 09/04/16 Simethicone [Gas Relief 80] 80 mg PO QID PRN 09/04/16 Allergies/Adverse Reactions: codeine [Codeine] Adverse Reaction (Unknown, Verified 08/23/16 08:03) Review of Systems ROS unobtainable: Other All systems: reviewed and no additional remarkable complaints except as stated Physical Exam Vital Signs: Temp Pulse Resp BP Pulse Ox 98.4 F 92 22 H 118/70 97 09/07/16 15:06 09/07/16 15:06 09/07/16 15:06 09/07/16 15:06 09/07/16 15:06 Intake & Output 09/06/16 09/07/16 09/08/16 06:59 06:59 06:59 Intake Total 684 1043 0 Output Total 1300 0 Balance -616 1043 0 Weight 124.9 kg 124.4 kg General appearance: PRESENT: disheveled, mild distress, morbidly obese Head exam: PRESENT: atraumatic, normocephalic Eye exam: PRESENT: conjunctiva pale, EOMI Mouth exam: PRESENT: dry mucosa, neck supple, tongue midline Neck exam: ABSENT: carotid bruit, JVD, lymphadenopathy, thyromegaly Respiratory exam: PRESENT: decreased breath sounds, prolonged expiratory phas, rhonchi, symmetrical Cardiovascular exam: PRESENT: RRR, +S1, +S2 Pulses: PRESENT: normal radial pulses GI/Abdominal exam: PRESENT: normal bowel sounds, soft. ABSENT: distended, guarding, mass, organolmegaly, rebound, tenderness Rectal exam: PRESENT: deferred Gentrourinary exam: PRESENT: indwelling catheter Extremities exam: ABSENT: +2 edema Skin exam: PRESENT: dry, warm Results Laboratory Results: 09/07/16 04:06 09/07/16 08:13 09/06/16 09/06/16 09/07/16 18:50 21:55 04:06 WBC 10.1 RBC 3.24 L Hgb 9.8 L Hct 30.2 L MCV 93 MCH 30.4 MCHC 32.6 RDW 15.0 H Plt Count 321 Seg Neutrophils % Not Reportable Lymphocytes % Not Reportable Monocytes % Not Reportable Eosinophils % Not Reportable Basophils % Not Reportable Absolute Neutrophils Not Reportable Absolute Lymphocytes Not Reportable Absolute Monocytes Not Reportable Absolute Eosinophils Not Reportable Absolute Basophils Not Reportable Sodium 138.3 139.0 Potassium 4.9 4.9 Chloride 96 L 98 Carbon Dioxide 31 H 34 H Anion Gap 11 7 BUN 24 H 25 H Creatinine 0.60 0.54 Est GFR ( Amer) > 60 > 60 Est GFR (Non-Af Amer) > 60 > 60 Glucose 427 H* 327 H Calcium 8.4 8.5 09/07/16 09/07/16 04:06 08:13 WBC RBC Hgb Hct MCV MCH MCHC RDW Plt Count Seg Neutrophils % Lymphocytes % Monocytes % Eosinophils % Basophils % Absolute Neutrophils Absolute Lymphocytes Absolute Monocytes Absolute Eosinophils Absolute Basophils Sodium 140.8 141.5 Potassium 4.3 4.4 Chloride 100 100 Carbon Dioxide 34 H 35 H Anion Gap 7 7 BUN 24 H 25 H Creatinine 0.58 0.55 Est GFR ( Amer) > 60 > 60 Est GFR (Non-Af Amer) > 60 > 60 Glucose 186 H 145 H Calcium 8.2 L 8.3 L 09/04/16 22:35 Clean Catch Midstream Urine Culture - Final Escherichia Coli 09/05/16 09/05/16 09/06/16 22:15 22:15 04:21 CK-MB (CK-2) 1.29 1.07 NT-Pro-B Natriuret Pep 3110 H 09/06/16 11:23 CK-MB (CK-2) 1.09 NT-Pro-B Natriuret Pep Impressions: Chest X-Ray 09/04/16 14:18 IMPRESSION: No significant interval change. No acute findings. Other findings as noted above Chest/Abdomen CTA 09/04/16 16:08 IMPRESSION: NO PULMONARY EMBOLI OR ACUTE INTRATHORACIC PROCESS IDENTIFIED. NO SIGNIFICANT CHANGE FROM PRIOR STUDIES. Assessment & Plan - Diagnosis (1) Acute hypercapnic respiratory failure Is this a current diagnosis for this admission?: Yes (2) COPD (chronic obstructive pulmonary disease) Qualifiers: COPD type: COPD with acute exacerbation Qualified Code(s): J44.1 - Chronic obstructive pulmonary disease with (acute) exacerbation Is this a current diagnosis for this admission?: Yes - Time Critical Time spent with patient: 35 or more minutes - 50 MIN
[2016-09-07] MEDS: ATORVASTATIN CALCIUM 40 MG TABLET PO SCH (22:12)
[2016-09-08] MEDS: INSULIN, REGULAR 100 UNIT/100 ML NORMAL SALINE IV PRN ×4 (02:48→23:42)
[2016-09-08 04:52] LABS: HEMOGLOBIN 10.8 g/dL (12.0-15.5); HGB HCT DIFFERENCE -0.6; MEAN CORPUSCULAR HEMOGLOBIN 30.7 pg (27.0-33.4); MEAN CORPUSCULAR HGB CONC 32.5 g/dL (32.0-36.0); MEAN CORPUSCULAR VOLUME 95 fl (80-97); RED CELL DISTRIBUTION WIDTH 14.9 % (11.5-14.0)
[2016-09-08 05:13] LABS: BASOPHILS % (MANUAL) 0 % (0-2); EOSINOPHILS % (MANUAL) 0 % (0-6); LYMPHOCYTES % (MANUAL) 1 % (13-45); TOTAL CELLS COUNTED 100
[2016-09-08 05:14] LABS: ANISOCYTOSIS SLIGHT; POLYCHROMASIA SLIGHT; TOXIC GRANULATION SLIGHT; TOXIC VACUOLATION PRESENT
[2016-09-08 05:15] LABS: OVALOCYTES SLIGHT; POIKILOCYTOSIS SLIGHT
[2016-09-08] MEDS: METHYLPREDNISOLONE INJ 125 MG/2 ML SDV IV SCH ×3 (05:47→22:31)
[2016-09-08] MEDS: GABAPENTIN 300 MG CAPSULE PO SCH ×3 (05:47→22:27)
[2016-09-08] MEDS: PRAMIPEXOLE DI-HCL 0.25 MG TABLET PO SCH ×3 (05:48→22:30)
[2016-09-08] MEDS: LANSOPRAZOLE 30 MG TAB.RAP.DR PO SCH (05:49)
[2016-09-08] MEDS: TRAMADOL HCL 50 MG TABLET PO PRN ×3 (05:55→22:31)
[2016-09-08] MEDS: METFORMIN HCL 500 MG TABLET PO SCH ×2 (08:19→17:12)
[2016-09-08] MEDS: PIOGLITAZONE HCL 15 MG TABLET PO SCH (09:21)
[2016-09-08] MEDS: FERROUS SULFATE 325 MG TABLET PO SCH (09:21)
[2016-09-08] MEDS: SIMETHICONE 80 MG TAB.CHEW PO PRN ×4 (09:22→22:43)
[2016-09-08] MEDS: ENOXAPARIN SODIUM INJ 40 MG/0.4 ML DISP.SYRIN SUBCUT SCH (09:22)
[2016-09-08] MEDS: SACUBITRIL/VALSARTAN 24 MG/26 MG TABLET PO SCH ×2 (09:22→22:28)
[2016-09-08] MEDS: CLOPIDOGREL BISULFATE 75 MG TABLET PO SCH (09:22)
[2016-09-08] MEDS: DULOXETINE HCL 30 MG CAPSULE.DR PO SCH (09:22)
[2016-09-08] MEDS: TIOTROPIUM BROMIDE DPI 5 CAP/KIT (18 MCG/CAP) IH SCH (09:23)
[2016-09-08] MEDS: METOPROLOL TARTRATE 25 MG TABLET PO SCH ×2 (09:23→22:29)
[2016-09-08] MEDS: FLUTICASONE/SALMETEROL DISKUS 250-50 MCG/DOSE IH SCH ×2 (09:23→22:26)
[2016-09-08] MEDS: HYDROMORPHONE HCL INJ/PF 2 MG/ML AMPULE IV PRN ×2 (09:46→18:41)
[2016-09-08] MEDS: ONDANSETRON HCL INJ/PF 4 MG/2 ML SDV IV PRN (14:22)
[2016-09-08] MEDS: CEFAZOLIN 1 GM/D5W RTU 1 GM/50 ML RTUPB IV SCH ×2 (14:23→20:50)
--- NOTE | 2016-09-08 14:24 | PDOC PROGRESS REPORT ---
Subjective Progress Note for:: 09/08/16 Subjective:: She was seen by the bedside today, IV access is challenging, she is presently on insulin infusion and also Solu-Medrol, she will continue Solu-Medrol for another day, she needed to be on insulin infusion because of the severe hyperglycemia associated with Solu-Medrol. The urine culture grew E. coli resistant to fluoroquinolones including Cipro and Levaquin but sensitive to beta -lactam class of antibiotic, she will be treated with intravenous cefazolin. She may need to have a PICC line to administer all of these IV therapy. She was seen by pulmonary yesterday DR Lake Physical Exam Vital Signs: Temp Pulse Resp BP Pulse Ox 98.6 F 94 19 127/57 H 97 09/08/16 11:24 09/08/16 11:24 09/08/16 11:24 09/08/16 11:24 09/08/16 11:24 Intake & Output 09/07/16 09/08/16 09/09/16 06:59 06:59 06:59 Intake Total 1043 1903 Output Total 1950 Balance 1043 -47 Weight 124.4 kg 125.6 kg General appearance: PRESENT: no acute distress, well-developed, well-nourished Head exam: PRESENT: atraumatic, normocephalic Eye exam: PRESENT: PERRLA Neck exam: PRESENT: full ROM Respiratory exam: PRESENT: wheezes Cardiovascular exam: PRESENT: RRR, +S1, +S2 Vascular exam: PRESENT: normal capillary refill GI/Abdominal exam: PRESENT: normal bowel sounds, soft Rectal exam: PRESENT: deferred Neurological exam: PRESENT: alert, awake, oriented to person, oriented to place , oriented to time, oriented to situation, CN II-XII grossly intact. ABSENT: motor sensory deficit Psychiatric exam: PRESENT: appropriate affect, normal mood. ABSENT: homicidal ideation, suicidal ideation Skin exam: PRESENT: dry, intact, warm Results Laboratory Results: 09/08/16 04:43 09/07/16 08:13 09/08/16 04:43 WBC 11.0 H RBC 3.50 L Hgb 10.8 L Hct 33.0 L MCV 95 MCH 30.7 MCHC 32.5 RDW 14.9 H Plt Count 340 Seg Neutrophils % Not Reportable Lymphocytes % Not Reportable Monocytes % Not Reportable Eosinophils % Not Reportable Basophils % Not Reportable Absolute Neutrophils Not Reportable Absolute Lymphocytes Not Reportable Absolute Monocytes Not Reportable Absolute Eosinophils Not Reportable Absolute Basophils Not Reportable 09/04/16 22:35 Clean Catch Midstream Urine Culture - Final Escherichia Coli 09/05/16 09/05/16 09/06/16 22:15 22:15 04:21 CK-MB (CK-2) 1.29 1.07 NT-Pro-B Natriuret Pep 3110 H 09/06/16 11:23 CK-MB (CK-2) 1.09 NT-Pro-B Natriuret Pep Impressions: Chest X-Ray 09/04/16 14:18 IMPRESSION: No significant interval change. No acute findings. Other findings as noted above Chest/Abdomen CTA 09/04/16 16:08 IMPRESSION: NO PULMONARY EMBOLI OR ACUTE INTRATHORACIC PROCESS IDENTIFIED. NO SIGNIFICANT CHANGE FROM PRIOR STUDIES. Assessment & Plan - Diagnosis (1) Acute hypercapnic respiratory failure Is this a current diagnosis for this admission?: Yes (2) Chronic obstructive pulmonary disease with acute exacerbation Is this a current diagnosis for this admission?: YesPlan: Continue IV Solu-Medrol (3) Physical deconditioning Is this a current diagnosis for this admission?: Yes (4) Respiratory distress Is this a current diagnosis for this admission?: Yes (5) Coronary artery disease Qualifiers: Coronary Disease-Associated Artery/Lesion type: [place] artery [place] vs. 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 coli UTI Is this a current diagnosis for this admission?: YesPlan: Start intravenous cefazolin
[2016-09-08 15:48] LABS: ALANINE AMINOTRANSFERASE 23 U/L (9-52); ALBUMIN 3.5 g/dL (3.5-5.0); ALKALINE PHOSPHATASE 60 U/L (38-126); ANION GAP 11 (5-19); ASPARTATE AMINO TRANSFERASE 12 U/L (14-36); BILIRUBIN,DIRECT 0.3 mg/dL (0.0-0.4); BILIRUBIN,TOTAL 0.4 mg/dL (0.2-1.3); BLOOD UREA NITROGEN 39 mg/dL (7-20); CALCIUM 8.7 mg/dL (8.4-10.2); CARBON DIOXIDE 31 mmol/L (22-30); CHLORIDE 98 mmol/L (98-107); CREATININE RESULT 0.73 mg/dL (0.52-1.25); GLUCOSE 234 mg/dL (75-110); POTASSIUM 4.4 mmol/L (3.6-5.0); SODIUM 139.7 mmol/L (137-145); TOTAL PROTEIN 6.3 g/dL (6.3-8.2)
[2016-09-08] MEDS: ATORVASTATIN CALCIUM 40 MG TABLET PO SCH (22:26)
[2016-09-08] MEDS ORDERED: INSULIN REG, HUMAN 100 UNIT/ML 3 ML VIAL (PYX) ONE (23:40)
[2016-09-09] MEDS: CEFAZOLIN 1 GM/D5W RTU 1 GM/50 ML RTUPB IV SCH ×4 (03:08→22:11)
[2016-09-09] MEDS: TRAMADOL HCL 50 MG TABLET PO PRN ×2 (04:17→12:56)
[2016-09-09] MEDS: LANSOPRAZOLE 30 MG TAB.RAP.DR PO SCH (05:38)
[2016-09-09] MEDS: GABAPENTIN 300 MG CAPSULE PO SCH ×3 (05:38→22:01)
[2016-09-09] MEDS: PRAMIPEXOLE DI-HCL 0.25 MG TABLET PO SCH ×3 (05:39→22:21)
[2016-09-09] MEDS: METHYLPREDNISOLONE INJ 125 MG/2 ML SDV IV SCH ×2 (05:39→15:31)
[2016-09-09 06:41] LABS: ALANINE AMINOTRANSFERASE 19 U/L (9-52); ALBUMIN 3.4 g/dL (3.5-5.0); ALKALINE PHOSPHATASE 52 U/L (38-126); ANION GAP 6 (5-19); ASPARTATE AMINO TRANSFERASE 11 U/L (14-36); BILIRUBIN,DIRECT 0.3 mg/dL (0.0-0.4); BILIRUBIN,TOTAL 0.3 mg/dL (0.2-1.3); BLOOD UREA NITROGEN 39 mg/dL (7-20); CALCIUM 8.7 mg/dL (8.4-10.2); CARBON DIOXIDE 34 mmol/L (22-30); CHLORIDE 99 mmol/L (98-107); GLUCOSE 82 mg/dL (75-110); POTASSIUM 4.5 mmol/L (3.6-5.0); SODIUM 139.3 mmol/L (137-145)
[2016-09-09] MEDS: METFORMIN HCL 500 MG TABLET PO SCH ×2 (10:04→17:40)
[2016-09-09] MEDS: DULOXETINE HCL 30 MG CAPSULE.DR PO SCH (10:04)
[2016-09-09] MEDS: CLOPIDOGREL BISULFATE 75 MG TABLET PO SCH (10:04)
[2016-09-09] MEDS: PIOGLITAZONE HCL 15 MG TABLET PO SCH (10:04)
[2016-09-09] MEDS: FERROUS SULFATE 325 MG TABLET PO SCH (10:05)
[2016-09-09] MEDS: METOPROLOL TARTRATE 25 MG TABLET PO SCH ×2 (10:05→21:45)
[2016-09-09] MEDS: SIMETHICONE 80 MG TAB.CHEW PO PRN ×4 (10:05→22:21)
[2016-09-09] MEDS: ENOXAPARIN SODIUM INJ 40 MG/0.4 ML DISP.SYRIN SUBCUT SCH (10:06)
[2016-09-09] MEDS: HYDROMORPHONE HCL INJ/PF 2 MG/ML AMPULE IV PRN ×2 (10:07→19:43)
[2016-09-09] MEDS: TIOTROPIUM BROMIDE DPI 5 CAP/KIT (18 MCG/CAP) IH SCH (10:08)
[2016-09-09] MEDS: FLUTICASONE/SALMETEROL DISKUS 250-50 MCG/DOSE IH SCH ×2 (10:08→22:21)
[2016-09-09] MEDS: SACUBITRIL/VALSARTAN 24 MG/26 MG TABLET PO SCH ×2 (10:08→22:22)
--- NOTE | 2016-09-09 10:42 | RADIOLOGY REPORT (SQ) ---
EXAM DESCRIPTION: PICC INSERTION; U/S GUIDE FOR VASCULAR ACCESS; FLUORO/CV PLACEMENT COMPLETED DATE/TIME: 09/09/2016 9:05 am REASON FOR STUDY: Need IV access; IV ACCESS; IV ABX COMPARISON: None. FLUOROSCOPY TIME: 31 seconds. 1 images saved to PACS. TECHNIQUE: Fluoroscopic and ultrasound guided PICC placement. LIMITATIONS: None. PROCEDURE: After written consent and assessment were obtained, the patient was brought into the fluo roscopy room and place supine on the table. Ultrasound was used on the patient's left arm for PICC a ccess. The left arm was prepped and draped in a sterile fashion along with the ultrasound probe. The entry site was anesthetized with 1% lidocaine. A 21 gauge 7 cm needle was advanced through the skin a nd into the basilic vein under live ultrasound guidance. An ultrasound image was saved to PACS confi rming access site. A .018 guide wire was then inserted through the needle and into the venous system . The needle was the removed and an 11 blade scalpel was used to make a 1cm skin incision. A 5 fr pe el-away sheath was advanced over the wire and into the venous system. A measurement was then made usi ng the existing wire and live fluoroscopic guidance. The wire was then removed and the trimmed. The P ICC was advanced through the peel-away sheath and into the venous system. The peel-away sheath was re moved and the catheter was adhered to the patients arm with a stat lock. The catheter was then aspira catalina and flushed and a sterile bandage was placed over the access site. A fluoroscopic spot image was saved to PACS confirming the catheter tip within the superior vena cava. IMPRESSION: SUCCESSFUL PLACEMENT OF A 5 FR DUAL LUMEN 48 CM PICC IN THE LEFT BASILIC VEIN. COMMENT: Patient medication list reviewed: Yes- Quality ID# [id number]:Eligible professional attests to doc umenting in the medical record they obtained, updated, or reviewed the patient's current medications. . Quality ID 145: Final reports for procedures using fluoroscopy that document radiation exposure adelaida emmie, or exposure time and number of fluorographic images (if radiation exposure indices are not avail able) Quality ID #76: The patient was prepped and draped using maximum sterile barrier technique including cap, mask, sterile gown, sterile gloves, a large sterile sheet, hand hygiene, and 2% Chlorhexidine fo r cutaneous antisepsis. When ultrasound is used, sterile ultrasound techniques are followed requiring sterile gel and sterile probes. TECHNICAL DOCUMENTATION: JOB ID: [id number] [employer]- All Rights Reserved
[2016-09-09] MEDS: INSULIN, REGULAR 100 UNIT/100 ML NORMAL SALINE IV PRN ×4 (14:27→22:38)
--- NOTE | 2016-09-09 16:37 | PDOC PROGRESS REPORT ---
Subjective Progress Note for:: 09/09/16 Subjective:: I feel a little better Physical Exam Vital Signs: Temp Pulse Resp BP Pulse Ox 98.3 F 81 16 130/68 H 95 09/09/16 07:19 09/09/16 11:40 09/09/16 11:40 09/09/16 07:19 09/09/16 11:40 Intake & Output 09/08/16 09/09/16 09/10/16 06:59 06:59 06:59 Intake Total 1903 263 Output Total 2650 700 Balance -747 -437 Weight 125.6 kg 125.8 kg General appearance: PRESENT: no acute distress, cooperative, disheveled, morbidly obese, well-developed Head exam: PRESENT: atraumatic, normocephalic Eye exam: PRESENT: conjunctiva pale, EOMI Mouth exam: PRESENT: dry mucosa, neck supple, tongue midline Neck exam: ABSENT: carotid bruit, JVD, lymphadenopathy, thyromegaly Respiratory exam: PRESENT: decreased breath sounds, prolonged expiratory phas, rales, rhonchi, symmetrical, unlabored Cardiovascular exam: PRESENT: RRR, +S1, +S2 Pulses: PRESENT: normal radial pulses GI/Abdominal exam: PRESENT: normal bowel sounds, soft. ABSENT: distended, guarding, mass, organolmegaly, rebound, tenderness Rectal exam: PRESENT: deferred Extremities exam: PRESENT: +1 edema Neurological exam: PRESENT: alert, awake Psychiatric exam: PRESENT: normal mood Skin exam: PRESENT: dry, warm Results Laboratory Results: 09/08/16 04:43 09/09/16 06:00 09/08/16 09/09/16 15:21 06:00 Sodium 139.7 139.3 Potassium 4.4 4.5 Chloride 98 99 Carbon Dioxide 31 H 34 H Anion Gap 11 6 BUN 39 H 39 H Creatinine 0.73 0.70 Est GFR ( Amer) > 60 > 60 Est GFR (Non-Af Amer) > 60 > 60 Glucose 234 H 82 Calcium 8.7 8.7 Total Bilirubin 0.4 0.3 AST 12 L 11 L ALT 23 19 Alkaline Phosphatase 60 52 Total Protein 6.3 6.0 L Albumin 3.5 3.4 L 09/05/16 09/05/16 09/06/16 22:15 22:15 04:21 CK-MB (CK-2) 1.29 1.07 NT-Pro-B Natriuret Pep 3110 H 09/06/16 11:23 CK-MB (CK-2) 1.09 NT-Pro-B Natriuret Pep Impressions: Chest X-Ray 09/04/16 14:18 IMPRESSION: No significant interval change. No acute findings. Other findings as noted above Chest/Abdomen CTA 09/04/16 16:08 IMPRESSION: NO PULMONARY EMBOLI OR ACUTE INTRATHORACIC PROCESS IDENTIFIED. NO SIGNIFICANT CHANGE FROM PRIOR STUDIES. Guidance Fluoroscopy 09/09/16 00:00 IMPRESSION: SUCCESSFUL PLACEMENT OF A 5 FR DUAL LUMEN 48 CM PICC IN THE LEFT BASILIC VEIN. Interventional Vascular Procedure 09/09/16 00:00 IMPRESSION: SUCCESSFUL PLACEMENT OF A 5 FR DUAL LUMEN 48 CM PICC IN THE LEFT BASILIC VEIN. PICC Line Insertion 09/09/16 00:00 IMPRESSION: SUCCESSFUL PLACEMENT OF A 5 FR DUAL LUMEN 48 CM PICC IN THE LEFT BASILIC VEIN. Assessment & Plan - Diagnosis (1) Acute hypercapnic respiratory failure Is this a current diagnosis for this admission?: YesPlan: Improving (2) COPD (chronic obstructive pulmonary disease) Qualifiers: COPD type: COPD with acute exacerbation Qualified Code(s): J44.1 - Chronic obstructive pulmonary disease with (acute) exacerbation Is this a current diagnosis for this admission?: YesPlan: Continue current bronchodilator therapy
--- NOTE | 2016-09-09 20:38 | PDOC PROGRESS REPORT ---
Subjective Progress Note for:: 09/09/16 Subjective:: She was seen by the bedside, she has been on IV Solu-Medrol for the last 72 hours, this will be discontinued and transitioned to p.o. prednisone. She has improved tremendously on the IV Solu-Medrol, she developed severe hyperglycemia in response to the steroid, she is also on insulin drip because of his severe hyperglycemia due to Solu-Medrol. Physical Exam Vital Signs: Temp Pulse Resp BP Pulse Ox 98.2 F 79 22 H 118/58 L 99 09/09/16 15:32 09/09/16 15:32 09/09/16 15:32 09/09/16 15:32 09/09/16 17:20 Intake & Output 09/08/16 09/09/16 09/10/16 06:59 06:59 06:59 Intake Total 3183 011 0954 Output Total 2650 700 600 Balance -747 -437 543 Weight 125.6 kg 125.8 kg General appearance: PRESENT: no acute distress Eye exam: PRESENT: PERRLA Respiratory exam: PRESENT: rhonchi. ABSENT: accessory muscle use, chest wall tenderness, clear to auscultation rolf, crackles, decreased breath sounds, prolonged expiratory phas, rales, retraction, stridor, symmetrical, tachypnea, unlabored, wheezes, other Cardiovascular exam: PRESENT: +S1, +S2 GI/Abdominal exam: PRESENT: soft Neurological exam: PRESENT: alert, CN II-XII grossly intact Results Laboratory Results: 09/08/16 04:43 09/09/16 06:00 09/09/16 06:00 Sodium 139.3 Potassium 4.5 Chloride 99 Carbon Dioxide 34 H Anion Gap 6 BUN 39 H Creatinine 0.70 Est GFR ( Amer) > 60 Est GFR (Non-Af Amer) > 60 Glucose 82 Calcium 8.7 Total Bilirubin 0.3 AST 11 L ALT 19 Alkaline Phosphatase 52 Total Protein 6.0 L Albumin 3.4 L 09/05/16 09/05/16 09/06/16 22:15 22:15 04:21 CK-MB (CK-2) 1.29 1.07 NT-Pro-B Natriuret Pep 3110 H 09/06/16 11:23 CK-MB (CK-2) 1.09 NT-Pro-B Natriuret Pep Impressions: Chest X-Ray 09/04/16 14:18 IMPRESSION: No significant interval change. No acute findings. Other findings as noted above Chest/Abdomen CTA 09/04/16 16:08 IMPRESSION: NO PULMONARY EMBOLI OR ACUTE INTRATHORACIC PROCESS IDENTIFIED. NO SIGNIFICANT CHANGE FROM PRIOR STUDIES. Guidance Fluoroscopy 09/09/16 00:00 IMPRESSION: SUCCESSFUL PLACEMENT OF A 5 FR DUAL LUMEN 48 CM PICC IN THE LEFT BASILIC VEIN. Interventional Vascular Procedure 09/09/16 00:00 IMPRESSION: SUCCESSFUL PLACEMENT OF A 5 FR DUAL LUMEN 48 CM PICC IN THE LEFT BASILIC VEIN. PICC Line Insertion 09/09/16 00:00 IMPRESSION: SUCCESSFUL PLACEMENT OF A 5 FR DUAL LUMEN 48 CM PICC IN THE LEFT BASILIC VEIN. Assessment & Plan - Diagnosis (1) Acute hypercapnic respiratory failure Is this a current diagnosis for this admission?: Yes (2) Chronic obstructive pulmonary disease with acute exacerbation Is this a current diagnosis for this admission?: YesPlan: Discontinue intravenous Solu-Medrol and start p.o. prednisone (3) Physical deconditioning Is this a current diagnosis for this admission?: Yes (4) Respiratory distress Is this a current diagnosis for this admission?: Yes (5) Coronary artery disease Qualifiers: Coronary Disease-Associated Artery/Lesion type: [place] artery [place] vs. 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 coli UTI Is this a current diagnosis for this admission?: YesPlan: Continue cefazolin for the E. coli UTI
[2016-09-09 21:26] LABS: APPEARANCE,URINE CLEAR; BILIRUBIN,URINE NEGATIVE (NEGATIVE); GLUCOSE, URINE >=500 mg/dL (NEGATIVE); KETONES,URINE NEGATIVE (NEGATIVE); LEUKOCYTE ESTERASE,URINE NEGATIVE (NEGATIVE); NITRITE,URINE NEGATIVE (NEGATIVE); PROTEIN,URINE NEGATIVE (NEGATIVE); URINE SPECIFIC GRAVITY 1.029; UROBILINOGEN,URINE NEGATIVE mg/dL (<2.0)
[2016-09-09 21:41] LABS: URINE BARBITURATES SCREEN NEGATIVE; URINE METHADONE SCREEN NEGATIVE; URINE PHENCYCLIDINE SCREEN NEGATIVE
[2016-09-09 21:45] LABS: URINE OPIATES LOW UNCONFIRMED POSITIVE
[2016-09-09] MEDS ORDERED: PREDNISONE 20 MG TABLET PO ONE (22:00)
[2016-09-09] MEDS: ATORVASTATIN CALCIUM 40 MG TABLET PO SCH (22:11)
[2016-09-09] MEDS: NORMAL SALINE 10 ML SDV (SCHEDULED) IV SCH (22:12)
[2016-09-10] MEDS: TRAMADOL HCL 50 MG TABLET PO PRN ×3 (00:33→22:02)
[2016-09-10] MEDS: CEFAZOLIN 1 GM/D5W RTU 1 GM/50 ML RTUPB IV SCH ×4 (03:02→21:28)
[2016-09-10] MEDS: NORMAL SALINE 10 ML SDV (AFTER EACH USE) IV PRN (05:30)
[2016-09-10 05:47] LABS: HEMATOCRIT 34.4 % (36.0-47.0); HEMOGLOBIN 11.1 g/dL (12.0-15.5); HGB HCT DIFFERENCE -1.1; MEAN CORPUSCULAR HEMOGLOBIN 30.3 pg (27.0-33.4); MEAN CORPUSCULAR HGB CONC 32.3 g/dL (32.0-36.0); MEAN CORPUSCULAR VOLUME 94 fl (80-97); RED BLOOD COUNT 3.67 10^6/uL (3.72-5.28); RED CELL DISTRIBUTION WIDTH 14.9 % (11.5-14.0); WHITE BLOOD COUNT 11.7 10^3/uL (4.0-10.5)
[2016-09-10] MEDS: PRAMIPEXOLE DI-HCL 0.25 MG TABLET PO SCH ×3 (05:52→21:29)
[2016-09-10] MEDS: GABAPENTIN 300 MG CAPSULE PO SCH ×3 (05:52→21:30)
[2016-09-10] MEDS: LANSOPRAZOLE 30 MG TAB.RAP.DR PO SCH (05:52)
[2016-09-10 06:03] LABS: ANION GAP 5 (5-19); BLOOD UREA NITROGEN 37 mg/dL (7-20); CALCIUM 7.8 mg/dL (8.4-10.2); CARBON DIOXIDE 34 mmol/L (22-30); CHLORIDE 99 mmol/L (98-107); CREATININE RESULT 0.72 mg/dL (0.52-1.25); GLUCOSE 138 mg/dL (75-110); POTASSIUM 4.2 mmol/L (3.6-5.0); SODIUM 138.4 mmol/L (137-145)
[2016-09-10 06:52] LABS: BAND NEUTROPHILS % (MANUAL) 1 % (3-5); BASOPHILS % (MANUAL) 0 % (0-2); EOSINOPHILS % (MANUAL) 0 % (0-6); LYMPHOCYTES % (MANUAL) 1 % (13-45); TOTAL CELLS COUNTED 100
[2016-09-10 06:54] LABS: ANISOCYTOSIS SLIGHT; POLYCHROMASIA SLIGHT; TOXIC VACUOLATION PRESENT
[2016-09-10 07:13] LABS: ARTERIAL BLOOD BASE EXCESS 8.9 mmol/L; ARTERIAL BLOOD O2 SATURATION 98.5 % (94-98)
[2016-09-10] MEDS: HYDROMORPHONE HCL INJ/PF 2 MG/ML AMPULE IV PRN ×2 (07:17→16:50)
[2016-09-10] MEDS: METFORMIN HCL 500 MG TABLET PO SCH ×2 (08:00→16:37)
[2016-09-10] MEDS: INSULIN, REGULAR 100 UNIT/100 ML NORMAL SALINE IV PRN ×2 (08:00)
[2016-09-10] MEDS: FERROUS SULFATE 325 MG TABLET PO SCH (09:40)
[2016-09-10] MEDS: PIOGLITAZONE HCL 15 MG TABLET PO SCH (09:40)
[2016-09-10] MEDS: CLOPIDOGREL BISULFATE 75 MG TABLET PO SCH (09:40)
[2016-09-10] MEDS: PREDNISONE 20 MG TABLET PO SCH (09:40)
[2016-09-10] MEDS: METOPROLOL TARTRATE 25 MG TABLET PO SCH ×2 (09:40→21:31)
[2016-09-10] MEDS: DULOXETINE HCL 30 MG CAPSULE.DR PO SCH (09:40)
[2016-09-10] MEDS: ENOXAPARIN SODIUM INJ 40 MG/0.4 ML DISP.SYRIN SUBCUT SCH (09:41)
[2016-09-10] MEDS: FLUTICASONE/SALMETEROL DISKUS 250-50 MCG/DOSE IH SCH ×2 (09:42→21:29)
[2016-09-10] MEDS: SACUBITRIL/VALSARTAN 24 MG/26 MG TABLET PO SCH ×2 (09:43→21:52)
[2016-09-10] MEDS: NORMAL SALINE 10 ML SDV (SCHEDULED) IV SCH ×2 (09:46→21:37)
[2016-09-10] MEDS ORDERED: SIMETHICONE 80 MG TAB.CHEW PO PRN (09:54)
[2016-09-10] MEDS: TIOTROPIUM BROMIDE DPI 5 CAP/KIT (18 MCG/CAP) IH SCH (10:02)
[2016-09-10] MEDS ORDERED: DEXTROSE 40% GEL 15 GM TUBE PO PRN (12:39)
[2016-09-10] MEDS ORDERED: DEXTROSE 50%-WATER SYRINGE 12.5 GM/25 ML DOSE IV PRN (12:39)
[2016-09-10] MEDS ORDERED: DEXTROSE 40% GEL 15 GM TUBE X 2 PO PRN (12:39)
[2016-09-10] MEDS ORDERED: DEXTROSE 50%-WATER SYRINGE 25 GM/50 ML DOSE IV PRN (12:39)
[2016-09-10] MEDS ORDERED: GLUCAGON,HUMAN RECOMB 1 MG INJ IM PRN (12:39)
[2016-09-10] MEDS: INSULIN LISPRO 100 UNIT/ML 3 ML VIAL SUBCUT PRN (17:33)
--- NOTE | 2016-09-10 18:02 | PDOC PROGRESS REPORT ---
Subjective Progress Note for:: 09/10/16 Subjective:: She was seen by the bedside, she has been on IV Solu-Medrol for the last 72 hours, this will be discontinued and transitioned to p.o. prednisone. She has improved tremendously on the IV Solu-Medrol, she developed severe hyperglycemia in response to the steroid, she is also on insulin drip because of his severe hyperglycemia due to Solu-Medrol. Physical Exam Vital Signs: Temp Pulse Resp BP Pulse Ox 97.8 F 80 20 105/57 L 98 09/10/16 11:54 09/10/16 14:00 09/10/16 11:54 09/10/16 11:54 09/10/16 17:31 Intake & Output 09/09/16 09/10/16 09/11/16 06:59 06:59 06:59 Intake Total 263 2771 896 Output Total 700 1000 0 Balance -437 1771 896 Weight 125.8 kg 128.4 kg General appearance: PRESENT: no acute distress Eye exam: PRESENT: PERRLA Respiratory exam: PRESENT: clear to auscultation rolf Cardiovascular exam: PRESENT: +S1, +S2 Results Laboratory Results: 09/10/16 05:37 09/10/16 05:37 09/09/16 09/10/16 09/10/16 21:18 05:37 05:37 WBC 11.7 H RBC 3.67 L Hgb 11.1 L Hct 34.4 L MCV 94 MCH 30.3 MCHC 32.3 RDW 14.9 H Plt Count 371 Seg Neutrophils % Not Reportable Lymphocytes % Not Reportable Monocytes % Not Reportable Eosinophils % Not Reportable Basophils % Not Reportable Absolute Neutrophils Not Reportable Absolute Lymphocytes Not Reportable Absolute Monocytes Not Reportable Absolute Eosinophils Not Reportable Absolute Basophils Not Reportable Carbonic Acid HCO3/H2CO3 Ratio ABG pH ABG pCO2 ABG pO2 ABG HCO3 ABG O2 Saturation ABG Base Excess FiO2 Sodium 138.4 Potassium 4.2 Chloride 99 Carbon Dioxide 34 H Anion Gap 5 BUN 37 H Creatinine 0.72 Est GFR ( Amer) > 60 Est GFR (Non-Af Amer) > 60 Glucose 138 H Calcium 7.8 L Magnesium 2.0 Urine Color YELLOW Urine Appearance CLEAR Urine pH 5.0 Ur Specific [place] 1.029 Urine Protein NEGATIVE Urine Glucose (UA) >=500 H Urine Ketones NEGATIVE Urine Blood NEGATIVE Urine Nitrite NEGATIVE Ur Leukocyte Esterase NEGATIVE Urine WBC (Auto) 2 Urine RBC (Auto) 2 09/10/16 06:50 WBC RBC Hgb Hct MCV MCH MCHC RDW Plt Count Seg Neutrophils % Lymphocytes % Monocytes % Eosinophils % Basophils % Absolute Neutrophils Absolute Lymphocytes Absolute Monocytes Absolute Eosinophils Absolute Basophils Carbonic Acid 1.60 H HCO3/H2CO3 Ratio 21:1 ABG pH 7.43 ABG pCO2 53.2 H ABG pO2 124.2 H ABG HCO3 34.7 H ABG O2 Saturation 98.5 H ABG Base Excess 8.9 FiO2 4 LITERS Sodium Potassium Chloride Carbon Dioxide Anion Gap BUN Creatinine Est GFR ( Amer) Est GFR (Non-Af Amer) Glucose Calcium Magnesium Urine Color Urine Appearance Urine pH Ur Specific [place] Urine Protein Urine Glucose (UA) Urine Ketones Urine Blood Urine Nitrite Ur Leukocyte Esterase Urine WBC (Auto) Urine RBC (Auto) 09/05/16 09/05/16 09/06/16 22:15 22:15 04:21 CK-MB (CK-2) 1.29 1.07 NT-Pro-B Natriuret Pep 3110 H 09/06/16 11:23 CK-MB (CK-2) 1.09 NT-Pro-B Natriuret Pep Impressions: Chest X-Ray 09/04/16 14:18 IMPRESSION: No significant interval change. No acute findings. Other findings as noted above Chest/Abdomen CTA 09/04/16 16:08 IMPRESSION: NO PULMONARY EMBOLI OR ACUTE INTRATHORACIC PROCESS IDENTIFIED. NO SIGNIFICANT CHANGE FROM PRIOR STUDIES. Guidance Fluoroscopy 09/09/16 00:00 IMPRESSION: SUCCESSFUL PLACEMENT OF A 5 FR DUAL LUMEN 48 CM PICC IN THE LEFT BASILIC VEIN. Interventional Vascular Procedure 09/09/16 00:00 IMPRESSION: SUCCESSFUL PLACEMENT OF A 5 FR DUAL LUMEN 48 CM PICC IN THE LEFT BASILIC VEIN. PICC Line Insertion 09/09/16 00:00 IMPRESSION: SUCCESSFUL PLACEMENT OF A 5 FR DUAL LUMEN 48 CM PICC IN THE LEFT BASILIC VEIN. Assessment & Plan - Diagnosis (1) Acute hypercapnic respiratory failure Is this a current diagnosis for this admission?: Yes (2) Chronic obstructive pulmonary disease with acute exacerbation Is this a current diagnosis for this admission?: Yes (3) Physical deconditioning Is this a current diagnosis for this admission?: Yes (4) Respiratory distress Is this a current diagnosis for this admission?: Yes (5) Coronary artery disease Qualifiers: Coronary Disease-Associated Artery/Lesion type: [place] artery [place] vs. 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 coli UTI Is this a current diagnosis for this admission?: Yes
[2016-09-10] MEDS: ATORVASTATIN CALCIUM 40 MG TABLET PO SCH (21:31)
[2016-09-10] MEDS: INSULIN GLARGINE,HUM.REC.ANLOG 300 UNIT/3 ML INSULN.PEN SUBCUT SCH (21:37)
[2016-09-11] MEDS: HYDROMORPHONE HCL INJ/PF 2 MG/ML AMPULE IV PRN ×3 (00:06→20:44)
[2016-09-11] MEDS: INSULIN LISPRO 100 UNIT/ML 3 ML VIAL SUBCUT PRN ×5 (00:18→22:42)
[2016-09-11] MEDS: CEFAZOLIN 1 GM/D5W RTU 1 GM/50 ML RTUPB IV SCH ×4 (03:04→20:44)
[2016-09-11] MEDS: TRAMADOL HCL 50 MG TABLET PO PRN ×2 (04:02→12:59)
[2016-09-11] MEDS: PRAMIPEXOLE DI-HCL 0.25 MG TABLET PO SCH ×3 (05:34→22:20)
[2016-09-11] MEDS: LANSOPRAZOLE 30 MG TAB.RAP.DR PO SCH (05:35)
[2016-09-11] MEDS: GABAPENTIN 300 MG CAPSULE PO SCH ×3 (05:36→22:18)
[2016-09-11] MEDS: METFORMIN HCL 500 MG TABLET PO SCH ×2 (09:35→16:28)
[2016-09-11] MEDS: NORMAL SALINE 10 ML SDV (SCHEDULED) IV SCH ×2 (11:14→22:28)
[2016-09-11] MEDS: ENOXAPARIN SODIUM INJ 40 MG/0.4 ML DISP.SYRIN SUBCUT SCH (11:16)
[2016-09-11] MEDS: FERROUS SULFATE 325 MG TABLET PO SCH (11:28)
[2016-09-11] MEDS: PIOGLITAZONE HCL 15 MG TABLET PO SCH (11:28)
[2016-09-11] MEDS: SACUBITRIL/VALSARTAN 24 MG/26 MG TABLET PO SCH ×2 (11:29→22:20)
[2016-09-11] MEDS: PREDNISONE 20 MG TABLET PO SCH (11:29)
[2016-09-11] MEDS: CLOPIDOGREL BISULFATE 75 MG TABLET PO SCH (11:30)
[2016-09-11] MEDS: METOPROLOL TARTRATE 25 MG TABLET PO SCH ×2 (11:30→22:20)
[2016-09-11] MEDS: DULOXETINE HCL 30 MG CAPSULE.DR PO SCH (11:30)
[2016-09-11] MEDS: TIOTROPIUM BROMIDE DPI 5 CAP/KIT (18 MCG/CAP) IH SCH (11:32)
[2016-09-11] MEDS: FLUTICASONE/SALMETEROL DISKUS 250-50 MCG/DOSE IH SCH ×2 (11:32→22:18)
--- NOTE | 2016-09-11 17:18 | PDOC PROGRESS REPORT ---
Subjective Progress Note for:: 09/10/16 Subjective:: I a'm little better Physical Exam Vital Signs: Temp Pulse Resp BP Pulse Ox 98.7 F 74 18 103/39 L 98 09/11/16 12:18 09/11/16 14:00 09/11/16 12:18 09/11/16 12:18 09/11/16 17:01 Intake & Output 09/10/16 09/11/16 09/12/16 06:59 06:59 06:59 Intake Total 2771 2121 600 Output Total 1000 400 400 Balance 1771 1721 200 Weight 128.4 kg 130.2 kg General appearance: PRESENT: cooperative, disheveled, mild distress, morbidly obese, well-developed Head exam: PRESENT: atraumatic, normocephalic Eye exam: PRESENT: conjunctiva pale, EOMI Mouth exam: PRESENT: dry mucosa, neck supple, tongue midline Neck exam: ABSENT: carotid bruit, JVD, lymphadenopathy, thyromegaly Respiratory exam: PRESENT: decreased breath sounds, prolonged expiratory phas, rhonchi, symmetrical, wheezes Cardiovascular exam: PRESENT: RRR, +S1, +S2 Pulses: PRESENT: normal radial pulses GI/Abdominal exam: PRESENT: normal bowel sounds, soft. ABSENT: distended, guarding, mass, organolmegaly, rebound, tenderness Rectal exam: PRESENT: deferred Extremities exam: PRESENT: +1 edema Neurological exam: PRESENT: alert, awake Psychiatric exam: PRESENT: normal mood Skin exam: PRESENT: dry, warm Results Laboratory Results: 09/10/16 05:37 09/10/16 05:37 09/05/16 09/05/16 09/06/16 22:15 22:15 04:21 CK-MB (CK-2) 1.29 1.07 NT-Pro-B Natriuret Pep 3110 H 09/06/16 11:23 CK-MB (CK-2) 1.09 NT-Pro-B Natriuret Pep Impressions: Chest X-Ray 09/04/16 14:18 IMPRESSION: No significant interval change. No acute findings. Other findings as noted above Chest/Abdomen CTA 09/04/16 16:08 IMPRESSION: NO PULMONARY EMBOLI OR ACUTE INTRATHORACIC PROCESS IDENTIFIED. NO SIGNIFICANT CHANGE FROM PRIOR STUDIES. Guidance Fluoroscopy 09/09/16 00:00 IMPRESSION: SUCCESSFUL PLACEMENT OF A 5 FR DUAL LUMEN 48 CM PICC IN THE LEFT BASILIC VEIN. Interventional Vascular Procedure 09/09/16 00:00 IMPRESSION: SUCCESSFUL PLACEMENT OF A 5 FR DUAL LUMEN 48 CM PICC IN THE LEFT BASILIC VEIN. PICC Line Insertion 09/09/16 00:00 IMPRESSION: SUCCESSFUL PLACEMENT OF A 5 FR DUAL LUMEN 48 CM PICC IN THE LEFT BASILIC VEIN. Assessment & Plan - Diagnosis (1) Acute hypercapnic respiratory failure Is this a current diagnosis for this admission?: Yes (2) COPD (chronic obstructive pulmonary disease) Qualifiers: COPD type: COPD with acute exacerbation Qualified Code(s): J44.1 - Chronic obstructive pulmonary disease with (acute) exacerbation Is this a current diagnosis for this admission?: Yes
--- NOTE | 2016-09-11 17:20 | PDOC PROGRESS REPORT ---
Subjective Progress Note for:: 09/11/16 Subjective:: Yes I am much better today Physical Exam Vital Signs: Temp Pulse Resp BP Pulse Ox 98.7 F 74 18 103/39 L 98 09/11/16 12:18 09/11/16 14:00 09/11/16 12:18 09/11/16 12:18 09/11/16 17:01 Intake & Output 09/10/16 09/11/16 09/12/16 06:59 06:59 06:59 Intake Total 2771 2121 600 Output Total 1000 400 400 Balance 1771 1721 200 Weight 128.4 kg 130.2 kg General appearance: PRESENT: no acute distress, cooperative, disheveled, morbidly obese, well-developed Head exam: PRESENT: atraumatic, normocephalic Eye exam: PRESENT: conjunctiva pale, EOMI Mouth exam: PRESENT: dry mucosa, neck supple, tongue midline Neck exam: ABSENT: carotid bruit, JVD, lymphadenopathy, thyromegaly Respiratory exam: PRESENT: decreased breath sounds, prolonged expiratory phas, rhonchi, unlabored Cardiovascular exam: PRESENT: RRR, +S1 Pulses: PRESENT: normal radial pulses GI/Abdominal exam: PRESENT: normal bowel sounds, soft. ABSENT: distended, guarding, mass, organolmegaly, rebound, tenderness Rectal exam: PRESENT: deferred Extremities exam: PRESENT: +1 edema Musculoskeletal exam: PRESENT: normal inspection Neurological exam: PRESENT: alert, awake Psychiatric exam: PRESENT: normal mood Skin exam: PRESENT: dry, warm Results Laboratory Results: 09/10/16 05:37 09/10/16 05:37 09/05/16 09/05/16 09/06/16 22:15 22:15 04:21 CK-MB (CK-2) 1.29 1.07 NT-Pro-B Natriuret Pep 3110 H 09/06/16 11:23 CK-MB (CK-2) 1.09 NT-Pro-B Natriuret Pep Impressions: Chest X-Ray 09/04/16 14:18 IMPRESSION: No significant interval change. No acute findings. Other findings as noted above Chest/Abdomen CTA 09/04/16 16:08 IMPRESSION: NO PULMONARY EMBOLI OR ACUTE INTRATHORACIC PROCESS IDENTIFIED. NO SIGNIFICANT CHANGE FROM PRIOR STUDIES. Guidance Fluoroscopy 09/09/16 00:00 IMPRESSION: SUCCESSFUL PLACEMENT OF A 5 FR DUAL LUMEN 48 CM PICC IN THE LEFT BASILIC VEIN. Interventional Vascular Procedure 09/09/16 00:00 IMPRESSION: SUCCESSFUL PLACEMENT OF A 5 FR DUAL LUMEN 48 CM PICC IN THE LEFT BASILIC VEIN. PICC Line Insertion 09/09/16 00:00 IMPRESSION: SUCCESSFUL PLACEMENT OF A 5 FR DUAL LUMEN 48 CM PICC IN THE LEFT BASILIC VEIN. Assessment & Plan - Diagnosis (1) Acute hypercapnic respiratory failure Is this a current diagnosis for this admission?: Yes (2) COPD (chronic obstructive pulmonary disease) Qualifiers: COPD type: COPD with acute exacerbation Qualified Code(s): J44.1 - Chronic obstructive pulmonary disease with (acute) exacerbation Is this a current diagnosis for this admission?: Yes
--- NOTE | 2016-09-11 19:57 | PDOC PROGRESS REPORT ---
Subjective Progress Note for:: 09/11/16 Subjective:: Patient was seen by the bedside, is seems to be improving on present treatment she was seen by the legal service specialist Physical Exam Vital Signs: Temp Pulse Resp BP Pulse Ox 98.7 F 74 18 103/39 L 98 09/11/16 12:18 09/11/16 14:00 09/11/16 12:18 09/11/16 12:18 09/11/16 17:01 Intake & Output 09/10/16 09/11/16 09/12/16 06:59 06:59 06:59 Intake Total 2771 2121 1330 Output Total 1000 400 900 Balance 1771 1721 430 Weight 128.4 kg 130.2 kg General appearance: PRESENT: no acute distress Eye exam: PRESENT: PERRLA Respiratory exam: PRESENT: clear to auscultation rolf Cardiovascular exam: PRESENT: +S1, +S2 GI/Abdominal exam: PRESENT: soft Neurological exam: PRESENT: alert, CN II-XII grossly intact Results Laboratory Results: 09/10/16 05:37 09/10/16 05:37 09/05/16 09/05/16 09/06/16 22:15 22:15 04:21 CK-MB (CK-2) 1.29 1.07 NT-Pro-B Natriuret Pep 3110 H 09/06/16 11:23 CK-MB (CK-2) 1.09 NT-Pro-B Natriuret Pep Impressions: Chest X-Ray 09/04/16 14:18 IMPRESSION: No significant interval change. No acute findings. Other findings as noted above Chest/Abdomen CTA 09/04/16 16:08 IMPRESSION: NO PULMONARY EMBOLI OR ACUTE INTRATHORACIC PROCESS IDENTIFIED. NO SIGNIFICANT CHANGE FROM PRIOR STUDIES. Guidance Fluoroscopy 09/09/16 00:00 IMPRESSION: SUCCESSFUL PLACEMENT OF A 5 FR DUAL LUMEN 48 CM PICC IN THE LEFT BASILIC VEIN. Interventional Vascular Procedure 09/09/16 00:00 IMPRESSION: SUCCESSFUL PLACEMENT OF A 5 FR DUAL LUMEN 48 CM PICC IN THE LEFT BASILIC VEIN. PICC Line Insertion 09/09/16 00:00 IMPRESSION: SUCCESSFUL PLACEMENT OF A 5 FR DUAL LUMEN 48 CM PICC IN THE LEFT BASILIC VEIN. Assessment & Plan - Diagnosis (1) Acute hypercapnic respiratory failure Is this a current diagnosis for this admission?: Yes (2) Chronic obstructive pulmonary disease with acute exacerbation Is this a current diagnosis for this admission?: Yes (3) Physical deconditioning Is this a current diagnosis for this admission?: Yes (4) Respiratory distress Is this a current diagnosis for this admission?: Yes (5) Coronary artery disease Qualifiers: Coronary Disease-Associated Artery/Lesion type: [place] artery [place] vs. 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 coli UTI Is this a current diagnosis for this admission?: Yes - Plan Summary Plan Summary: Continue present treatment
[2016-09-11] MEDS: ATORVASTATIN CALCIUM 40 MG TABLET PO SCH (22:17)
[2016-09-11] MEDS: INSULIN GLARGINE,HUM.REC.ANLOG 300 UNIT/3 ML INSULN.PEN SUBCUT SCH (22:27)
[2016-09-12] MEDS: HYDROMORPHONE HCL INJ/PF 2 MG/ML AMPULE IV PRN ×4 (00:56→19:49)
[2016-09-12] MEDS: CEFAZOLIN 1 GM/D5W RTU 1 GM/50 ML RTUPB IV SCH ×4 (02:04→21:05)
[2016-09-12] MEDS: TRAMADOL HCL 50 MG TABLET PO PRN ×4 (02:56→22:01)
[2016-09-12] MEDS: LANSOPRAZOLE 30 MG TAB.RAP.DR PO SCH (05:25)
[2016-09-12] MEDS: GABAPENTIN 300 MG CAPSULE PO SCH ×3 (05:25→22:00)
[2016-09-12] MEDS: PRAMIPEXOLE DI-HCL 0.25 MG TABLET PO SCH ×3 (05:26→22:02)
[2016-09-12] MEDS: INSULIN LISPRO 100 UNIT/ML 3 ML VIAL SUBCUT PRN ×3 (07:44→22:01)
[2016-09-12] MEDS: METFORMIN HCL 500 MG TABLET PO SCH ×2 (07:45→16:09)
[2016-09-12] MEDS: ENOXAPARIN SODIUM INJ 40 MG/0.4 ML DISP.SYRIN SUBCUT SCH (10:39)
[2016-09-12] MEDS: TIOTROPIUM BROMIDE DPI 5 CAP/KIT (18 MCG/CAP) IH SCH (10:40)
[2016-09-12] MEDS: PREDNISONE 20 MG TABLET PO SCH (10:40)
[2016-09-12] MEDS: SACUBITRIL/VALSARTAN 24 MG/26 MG TABLET PO SCH ×2 (10:40→22:03)
[2016-09-12] MEDS: FLUTICASONE/SALMETEROL DISKUS 250-50 MCG/DOSE IH SCH ×2 (10:40→22:02)
[2016-09-12] MEDS: PIOGLITAZONE HCL 15 MG TABLET PO SCH (10:40)
[2016-09-12] MEDS: CLOPIDOGREL BISULFATE 75 MG TABLET PO SCH (10:40)
[2016-09-12] MEDS: FERROUS SULFATE 325 MG TABLET PO SCH (10:40)
[2016-09-12] MEDS: METOPROLOL TARTRATE 25 MG TABLET PO SCH ×2 (10:40→22:00)
[2016-09-12] MEDS: DULOXETINE HCL 30 MG CAPSULE.DR PO SCH (10:41)
[2016-09-12] MEDS: NORMAL SALINE 10 ML SDV (SCHEDULED) IV SCH ×2 (10:41→22:04)
--- NOTE | 2016-09-12 15:11 | PDOC PROGRESS REPORT ---
Subjective Progress Note for:: 09/12/16 Subjective:: better today Physical Exam Vital Signs: Temp Pulse Resp BP Pulse Ox 97.8 F 82 19 110/61 100 09/12/16 11:46 09/12/16 11:46 09/12/16 11:46 09/12/16 11:46 09/12/16 11:46 Intake & Output 09/11/16 09/12/16 09/13/16 06:59 06:59 06:59 Intake Total 2121 5445 759 Output Total 400 1650 Balance 1721 865 759 Weight 130.2 kg 132 kg General appearance: PRESENT: no acute distress, cooperative, disheveled, morbidly obese, well-developed Head exam: PRESENT: atraumatic, normocephalic Eye exam: PRESENT: conjunctiva pale, EOMI Mouth exam: PRESENT: dry mucosa, neck supple, tongue midline Neck exam: ABSENT: carotid bruit, JVD, lymphadenopathy, thyromegaly Respiratory exam: PRESENT: decreased breath sounds, prolonged expiratory phas, rales, rhonchi, symmetrical - At the bases, unlabored Cardiovascular exam: PRESENT: RRR, +S1, +S2 Pulses: PRESENT: normal radial pulses GI/Abdominal exam: PRESENT: normal bowel sounds, soft. ABSENT: distended, guarding, mass, organolmegaly, rebound, tenderness Rectal exam: PRESENT: deferred Gentrourinary exam: PRESENT: indwelling catheter Extremities exam: PRESENT: +1 edema Neurological exam: PRESENT: awake Psychiatric exam: PRESENT: normal mood Skin exam: PRESENT: dry, warm Results Laboratory Results: 09/10/16 05:37 09/10/16 05:37 09/05/16 09/05/16 09/06/16 22:15 22:15 04:21 CK-MB (CK-2) 1.29 1.07 NT-Pro-B Natriuret Pep 3110 H 09/06/16 11:23 CK-MB (CK-2) 1.09 NT-Pro-B Natriuret Pep Impressions: Chest X-Ray 09/04/16 14:18 IMPRESSION: No significant interval change. No acute findings. Other findings as noted above Chest/Abdomen CTA 09/04/16 16:08 IMPRESSION: NO PULMONARY EMBOLI OR ACUTE INTRATHORACIC PROCESS IDENTIFIED. NO SIGNIFICANT CHANGE FROM PRIOR STUDIES. Guidance Fluoroscopy 09/09/16 00:00 IMPRESSION: SUCCESSFUL PLACEMENT OF A 5 FR DUAL LUMEN 48 CM PICC IN THE LEFT BASILIC VEIN. Interventional Vascular Procedure 09/09/16 00:00 IMPRESSION: SUCCESSFUL PLACEMENT OF A 5 FR DUAL LUMEN 48 CM PICC IN THE LEFT BASILIC VEIN. PICC Line Insertion 09/09/16 00:00 IMPRESSION: SUCCESSFUL PLACEMENT OF A 5 FR DUAL LUMEN 48 CM PICC IN THE LEFT BASILIC VEIN. Assessment & Plan - Diagnosis (1) Acute hypercapnic respiratory failure Is this a current diagnosis for this admission?: Yes (2) COPD (chronic obstructive pulmonary disease) Qualifiers: COPD type: COPD with acute exacerbation Qualified Code(s): J44.1 - Chronic obstructive pulmonary disease with (acute) exacerbation Is this a current diagnosis for this admission?: Yes
[2016-09-12] MEDS: NORMAL SALINE 10 ML SDV (AFTER EACH USE) IV PRN (19:49)
--- NOTE | 2016-09-12 20:41 | PDOC PROGRESS REPORT ---
Subjective Progress Note for:: 09/12/16 Subjective:: She was admitted for COPD exacerbation, she is responding to treatment Physical Exam Vital Signs: Temp Pulse Resp BP Pulse Ox 99.2 F 84 19 116/53 L 98 09/12/16 16:22 09/12/16 16:22 09/12/16 16:22 09/12/16 16:22 09/12/16 19:55 Intake & Output 09/11/16 09/12/16 09/13/16 06:59 06:59 06:59 Intake Total 2121 2515 1136 Output Total 400 1650 Balance 5106 069 4694 Weight 130.2 kg 132 kg General appearance: PRESENT: no acute distress Eye exam: PRESENT: PERRLA Respiratory exam: PRESENT: clear to auscultation rolf Cardiovascular exam: PRESENT: +S1, +S2 GI/Abdominal exam: PRESENT: soft Neurological exam: PRESENT: alert Results Laboratory Results: 09/10/16 05:37 09/10/16 05:37 09/05/16 09/05/16 09/06/16 22:15 22:15 04:21 CK-MB (CK-2) 1.29 1.07 NT-Pro-B Natriuret Pep 3110 H 09/06/16 11:23 CK-MB (CK-2) 1.09 NT-Pro-B Natriuret Pep Impressions: Chest X-Ray 09/04/16 14:18 IMPRESSION: No significant interval change. No acute findings. Other findings as noted above Chest/Abdomen CTA 09/04/16 16:08 IMPRESSION: NO PULMONARY EMBOLI OR ACUTE INTRATHORACIC PROCESS IDENTIFIED. NO SIGNIFICANT CHANGE FROM PRIOR STUDIES. Guidance Fluoroscopy 09/09/16 00:00 IMPRESSION: SUCCESSFUL PLACEMENT OF A 5 FR DUAL LUMEN 48 CM PICC IN THE LEFT BASILIC VEIN. Interventional Vascular Procedure 09/09/16 00:00 IMPRESSION: SUCCESSFUL PLACEMENT OF A 5 FR DUAL LUMEN 48 CM PICC IN THE LEFT BASILIC VEIN. PICC Line Insertion 09/09/16 00:00 IMPRESSION: SUCCESSFUL PLACEMENT OF A 5 FR DUAL LUMEN 48 CM PICC IN THE LEFT BASILIC VEIN. Assessment & Plan - Diagnosis (1) Acute hypercapnic respiratory failure Is this a current diagnosis for this admission?: Yes (2) Chronic obstructive pulmonary disease with acute exacerbation Is this a current diagnosis for this admission?: Yes (3) Physical deconditioning Is this a current diagnosis for this admission?: Yes (4) Respiratory distress Is this a current diagnosis for this admission?: Yes (5) Coronary artery disease Qualifiers: Coronary Disease-Associated Artery/Lesion type: [place] artery [place] vs. transplanted heart: [place] heart Associated angina: angina presence unspecified Qualified Code(s): I25.10 - Atherosclerotic heart disease of [place] coronary artery without angina pectoris Is this a current diagnosis for this admission?: Yes (6) Diabetes mellitus Qualifiers: Diabetes mellitus type: type 2 Diabetes mellitus complication status: with neurologic complications Diabetes mellitus complication detail: with polyneuropathy Diabetes mellitus group home insulin use: with long term care pharmacist use Qualified Code(s): E11.42 - Type 2 diabetes mellitus with diabetic polyneuropathy; 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 coli UTI Is this a current diagnosis for this admission?: Yes
[2016-09-12] MEDS: ATORVASTATIN CALCIUM 40 MG TABLET PO SCH (21:58)
[2016-09-12] MEDS: INSULIN GLARGINE,HUM.REC.ANLOG 300 UNIT/3 ML INSULN.PEN SUBCUT SCH (21:59)
[2016-09-13] MEDS: HYDROMORPHONE HCL INJ/PF 2 MG/ML AMPULE IV PRN ×5 (00:25→20:21)
[2016-09-13] MEDS: NORMAL SALINE 10 ML SDV (AFTER EACH USE) IV PRN ×2 (00:26→04:31)
[2016-09-13] MEDS: CEFAZOLIN 1 GM/D5W RTU 1 GM/50 ML RTUPB IV SCH ×4 (03:43→20:22)
[2016-09-13] MEDS: TRAMADOL HCL 50 MG TABLET PO PRN (03:47)
[2016-09-13] MEDS: PRAMIPEXOLE DI-HCL 0.25 MG TABLET PO SCH ×3 (05:11→21:41)
[2016-09-13] MEDS: LANSOPRAZOLE 30 MG TAB.RAP.DR PO SCH (05:12)
[2016-09-13] MEDS: GABAPENTIN 300 MG CAPSULE PO SCH ×3 (05:12→21:41)
[2016-09-13] MEDS: INSULIN LISPRO 100 UNIT/ML 3 ML VIAL SUBCUT PRN ×3 (08:00→21:40)
[2016-09-13] MEDS: METFORMIN HCL 500 MG TABLET PO SCH ×2 (08:02→17:41)
[2016-09-13] MEDS: DULOXETINE HCL 30 MG CAPSULE.DR PO SCH (11:06)
[2016-09-13] MEDS: PIOGLITAZONE HCL 15 MG TABLET PO SCH (11:06)
[2016-09-13] MEDS: FERROUS SULFATE 325 MG TABLET PO SCH (11:07)
[2016-09-13] MEDS: METOPROLOL TARTRATE 25 MG TABLET PO SCH ×2 (11:07→21:42)
[2016-09-13] MEDS: PREDNISONE 20 MG TABLET PO SCH (11:08)
[2016-09-13] MEDS: CLOPIDOGREL BISULFATE 75 MG TABLET PO SCH (11:08)
[2016-09-13] MEDS: ENOXAPARIN SODIUM INJ 40 MG/0.4 ML DISP.SYRIN SUBCUT SCH (11:22)
[2016-09-13] MEDS: FLUTICASONE/SALMETEROL DISKUS 250-50 MCG/DOSE IH SCH ×2 (11:23→21:43)
[2016-09-13] MEDS: SACUBITRIL/VALSARTAN 24 MG/26 MG TABLET PO SCH ×2 (11:23→21:41)
[2016-09-13] MEDS: TIOTROPIUM BROMIDE DPI 5 CAP/KIT (18 MCG/CAP) IH SCH (11:24)
[2016-09-13] MEDS: NORMAL SALINE 10 ML SDV (SCHEDULED) IV SCH ×2 (11:26→21:40)
[2016-09-13] MEDS: ONDANSETRON HCL INJ/PF 4 MG/2 ML SDV IV PRN (15:39)
[2016-09-13] MEDS: INSULIN GLARGINE,HUM.REC.ANLOG 300 UNIT/3 ML INSULN.PEN SUBCUT SCH (21:40)
[2016-09-13] MEDS: ATORVASTATIN CALCIUM 40 MG TABLET PO SCH (21:42)
--- NOTE | 2016-09-13 21:42 | PDOC PROGRESS REPORT ---
Subjective Progress Note for:: 09/13/16 Subjective:: She was seen by the bedside, she complained of dysuria, she has E. coli UTI sensitive to cefazolin ,. She has retained a lot of fluid most likely from combination of steroid therapy and IV fluids. The IV cefazolin is fall of the MAR,this will be transitioned to p.o. cefuroxime Physical Exam Vital Signs: Temp Pulse Resp BP Pulse Ox 97.8 F 82 18 116/66 100 09/13/16 11:47 09/13/16 14:00 09/13/16 11:47 09/13/16 11:47 09/13/16 11:47 Intake & Output 09/12/16 09/13/16 09/14/16 06:59 06:59 06:59 Intake Total 2515 1975 640 Output Total 1650 Balance 865 1975 640 Weight 132 kg 130.4 kg General appearance: PRESENT: no acute distress Eye exam: PRESENT: PERRLA Respiratory exam: PRESENT: wheezes Cardiovascular exam: PRESENT: +S1, +S2 GI/Abdominal exam: PRESENT: soft Neurological exam: PRESENT: alert Results Laboratory Results: 09/10/16 05:37 09/10/16 05:37 09/05/16 09/05/16 09/06/16 22:15 22:15 04:21 CK-MB (CK-2) 1.29 1.07 NT-Pro-B Natriuret Pep 3110 H 09/06/16 11:23 CK-MB (CK-2) 1.09 NT-Pro-B Natriuret Pep Impressions: Chest X-Ray 09/04/16 14:18 IMPRESSION: No significant interval change. No acute findings. Other findings as noted above Chest/Abdomen CTA 09/04/16 16:08 IMPRESSION: NO PULMONARY EMBOLI OR ACUTE INTRATHORACIC PROCESS IDENTIFIED. NO SIGNIFICANT CHANGE FROM PRIOR STUDIES. Guidance Fluoroscopy 09/09/16 00:00 IMPRESSION: SUCCESSFUL PLACEMENT OF A 5 FR DUAL LUMEN 48 CM PICC IN THE LEFT BASILIC VEIN. Interventional Vascular Procedure 09/09/16 00:00 IMPRESSION: SUCCESSFUL PLACEMENT OF A 5 FR DUAL LUMEN 48 CM PICC IN THE LEFT BASILIC VEIN. PICC Line Insertion 09/09/16 00:00 IMPRESSION: SUCCESSFUL PLACEMENT OF A 5 FR DUAL LUMEN 48 CM PICC IN THE LEFT BASILIC VEIN. Assessment & Plan - Diagnosis (1) Acute hypercapnic respiratory failure Is this a current diagnosis for this admission?: Yes (2) Chronic obstructive pulmonary disease with acute exacerbation Is this a current diagnosis for this admission?: Yes (3) Physical deconditioning Is this a current diagnosis for this admission?: Yes (4) Respiratory distress Is this a current diagnosis for this admission?: Yes (5) Coronary artery disease Qualifiers: Coronary Disease-Associated Artery/Lesion type: [place] artery [place] vs. transplanted heart: [place] heart Associated angina: angina presence unspecified Qualified Code(s): I25.10 - Atherosclerotic heart disease of [place] coronary artery without angina pectoris Is this a current diagnosis for this admission?: Yes (6) Diabetes mellitus Qualifiers: Diabetes mellitus type: type 2 Diabetes mellitus complication status: with neurologic complications Diabetes mellitus complication detail: with polyneuropathy Diabetes mellitus fci insulin use: with fci use Qualified Code(s): E11.42 - Type 2 diabetes mellitus with diabetic polyneuropathy; Z79.4 - snf (current) use of insulin Is this a current diagnosis for this admission?: Yes (7) E. coli UTI Is this a current diagnosis for this admission?: Yes
[2016-09-14] MEDS: HYDROMORPHONE HCL INJ/PF 2 MG/ML AMPULE IV PRN ×5 (00:34→21:43)
[2016-09-14] MEDS: NORMAL SALINE 10 ML SDV (AFTER EACH USE) IV PRN ×2 (00:35→02:59)
[2016-09-14] MEDS: CEFAZOLIN 1 GM/D5W RTU 1 GM/50 ML RTUPB IV SCH ×4 (02:13→21:43)
[2016-09-14] MEDS: GABAPENTIN 300 MG CAPSULE PO SCH ×3 (05:11→21:44)
[2016-09-14] MEDS: LANSOPRAZOLE 30 MG TAB.RAP.DR PO SCH (05:11)
[2016-09-14] MEDS: PRAMIPEXOLE DI-HCL 0.25 MG TABLET PO SCH ×3 (05:12→21:44)
[2016-09-14] MEDS: METFORMIN HCL 500 MG TABLET PO SCH ×2 (08:44→16:10)
[2016-09-14] MEDS: INSULIN LISPRO 100 UNIT/ML 3 ML VIAL SUBCUT PRN ×4 (08:45→21:49)
--- NOTE | 2016-09-14 09:58 | PDOC PROGRESS REPORT ---
Subjective Progress Note for:: 09/13/16 Subjective:: hope I can go home soon Physical Exam Vital Signs: Temp Pulse Resp BP Pulse Ox 98.5 F 82 18 119/46 L 100 09/13/16 08:08 09/13/16 08:08 09/13/16 08:08 09/13/16 08:08 09/13/16 08:08 Intake & Output 09/12/16 09/13/16 09/14/16 06:59 06:59 06:59 Intake Total 2515 1975 Output Total 1650 Balance 865 1975 Weight 132 kg 130.4 kg General appearance: PRESENT: no acute distress, cooperative, disheveled, morbidly obese, well-developed Head exam: PRESENT: atraumatic, normocephalic Eye exam: PRESENT: conjunctiva pale, EOMI Mouth exam: PRESENT: dry mucosa, neck supple, tongue midline Neck exam: PRESENT: full ROM, meningismus, tenderness, tracheal deviation, tracheostomy, other. ABSENT: carotid bruit, JVD, lymphadenopathy, thyromegaly Respiratory exam: PRESENT: decreased breath sounds, prolonged expiratory phas, rhonchi, symmetrical, unlabored Cardiovascular exam: PRESENT: RRR, +S1 Pulses: PRESENT: normal radial pulses GI/Abdominal exam: PRESENT: normal bowel sounds, soft. ABSENT: distended, guarding, mass, organolmegaly, rebound, tenderness Rectal exam: PRESENT: deferred Musculoskeletal exam: PRESENT: normal inspection Neurological exam: PRESENT: alert, awake Psychiatric exam: PRESENT: normal mood Skin exam: PRESENT: dry, warm Results Laboratory Results: 09/10/16 05:37 09/10/16 05:37 09/05/16 09/05/16 09/06/16 22:15 22:15 04:21 CK-MB (CK-2) 1.29 1.07 NT-Pro-B Natriuret Pep 3110 H 09/06/16 11:23 CK-MB (CK-2) 1.09 NT-Pro-B Natriuret Pep Impressions: Chest X-Ray 09/04/16 14:18 IMPRESSION: No significant interval change. No acute findings. Other findings as noted above Chest/Abdomen CTA 09/04/16 16:08 IMPRESSION: NO PULMONARY EMBOLI OR ACUTE INTRATHORACIC PROCESS IDENTIFIED. NO SIGNIFICANT CHANGE FROM PRIOR STUDIES. Guidance Fluoroscopy 09/09/16 00:00 IMPRESSION: SUCCESSFUL PLACEMENT OF A 5 FR DUAL LUMEN 48 CM PICC IN THE LEFT BASILIC VEIN. Interventional Vascular Procedure 09/09/16 00:00 IMPRESSION: SUCCESSFUL PLACEMENT OF A 5 FR DUAL LUMEN 48 CM PICC IN THE LEFT BASILIC VEIN. PICC Line Insertion 09/09/16 00:00 IMPRESSION: SUCCESSFUL PLACEMENT OF A 5 FR DUAL LUMEN 48 CM PICC IN THE LEFT BASILIC VEIN. Assessment & Plan - Diagnosis (1) Acute hypercapnic respiratory failure Is this a current diagnosis for this admission?: Yes (2) COPD (chronic obstructive pulmonary disease) Qualifiers: COPD type: COPD with acute exacerbation Qualified Code(s): J44.1 - Chronic obstructive pulmonary disease with (acute) exacerbation Is this a current diagnosis for this admission?: Yes
[2016-09-14] MEDS: ENOXAPARIN SODIUM INJ 40 MG/0.4 ML DISP.SYRIN SUBCUT SCH (10:57)
[2016-09-14] MEDS: CLOPIDOGREL BISULFATE 75 MG TABLET PO SCH (10:58)
[2016-09-14] MEDS: METOPROLOL TARTRATE 25 MG TABLET PO SCH ×2 (10:58→21:44)
[2016-09-14] MEDS: PIOGLITAZONE HCL 15 MG TABLET PO SCH (10:59)
[2016-09-14] MEDS: FERROUS SULFATE 325 MG TABLET PO SCH (10:59)
[2016-09-14] MEDS: NORMAL SALINE 10 ML SDV (SCHEDULED) IV SCH ×2 (10:59→21:44)
[2016-09-14] MEDS: DULOXETINE HCL 30 MG CAPSULE.DR PO SCH (11:00)
[2016-09-14] MEDS: PREDNISONE 20 MG TABLET PO SCH (11:00)
[2016-09-14] MEDS: FLUTICASONE/SALMETEROL DISKUS 250-50 MCG/DOSE IH SCH ×2 (11:01→21:44)
[2016-09-14] MEDS: SACUBITRIL/VALSARTAN 24 MG/26 MG TABLET PO SCH ×2 (11:02→21:45)
[2016-09-14] MEDS: ALBUTEROL SULFATE HFA (90 MCG/PUFF) 200 PUFF/8.5 GM MDI IH PRN (11:03)
[2016-09-14] MEDS: TIOTROPIUM BROMIDE DPI 5 CAP/KIT (18 MCG/CAP) IH SCH (11:03)
--- NOTE | 2016-09-14 13:22 | PDOC PROGRESS REPORT ---
Subjective Progress Note for:: 09/14/16 Subjective:: Patient reported increase congestion in her throat with difficulty expectorating. No chest pain. Remain on supplemental oxygen via nasal cannula. No fever or chills. No nausea or vomiting. Physical Exam Vital Signs: Temp Pulse Resp BP Pulse Ox 98.4 F 76 18 116/50 L 100 09/14/16 08:03 09/14/16 08:03 09/14/16 08:03 09/14/16 08:03 09/14/16 08:03 Intake & Output 09/13/16 09/14/16 09/15/16 06:59 06:59 06:59 Intake Total 1975 1859 Output Total 1300 Balance 1975 559 Weight 130.4 kg 132.6 kg General appearance: PRESENT: cooperative, mild distress - due to difficulty with breathing, morbidly obese Head exam: PRESENT: atraumatic, normocephalic Eye exam: PRESENT: EOMI, PERRLA Mouth exam: PRESENT: moist Teeth exam: PRESENT: edentulous Respiratory exam: PRESENT: clear to auscultation rolf, decreased breath sounds - at lung bases Cardiovascular exam: PRESENT: RRR, +S1, +S2 Vascular exam: PRESENT: normal capillary refill GI/Abdominal exam: PRESENT: normal bowel sounds, soft. ABSENT: distended, guarding, mass, organolmegaly, rebound, tenderness Extremities exam: ABSENT: pedal edema Musculoskeletal exam: PRESENT: deformity - related to multiple joints involvement with arthritis, tenderness - to palpation Neurological exam: PRESENT: alert, awake, oriented to person, oriented to place , oriented to time, oriented to situation, CN II-XII grossly intact. ABSENT: motor sensory deficit Psychiatric exam: PRESENT: appropriate affect, normal mood. ABSENT: homicidal ideation, suicidal ideation Skin exam: PRESENT: dry, intact, warm. ABSENT: cyanosis, rash Results Laboratory Results: 09/10/16 05:37 09/10/16 05:37 09/05/16 09/05/16 09/06/16 22:15 22:15 04:21 CK-MB (CK-2) 1.29 1.07 NT-Pro-B Natriuret Pep 3110 H 09/06/16 11:23 CK-MB (CK-2) 1.09 NT-Pro-B Natriuret Pep Impressions: Chest X-Ray 09/04/16 14:18 IMPRESSION: No significant interval change. No acute findings. Other findings as noted above Chest/Abdomen CTA 09/04/16 16:08 IMPRESSION: NO PULMONARY EMBOLI OR ACUTE INTRATHORACIC PROCESS IDENTIFIED. NO SIGNIFICANT CHANGE FROM PRIOR STUDIES. Guidance Fluoroscopy 09/09/16 00:00 IMPRESSION: SUCCESSFUL PLACEMENT OF A 5 FR DUAL LUMEN 48 CM PICC IN THE LEFT BASILIC VEIN. Interventional Vascular Procedure 09/09/16 00:00 IMPRESSION: SUCCESSFUL PLACEMENT OF A 5 FR DUAL LUMEN 48 CM PICC IN THE LEFT BASILIC VEIN. PICC Line Insertion 09/09/16 00:00 IMPRESSION: SUCCESSFUL PLACEMENT OF A 5 FR DUAL LUMEN 48 CM PICC IN THE LEFT BASILIC VEIN. Assessment & Plan - Diagnosis (1) Acute hypercapnic respiratory failure Is this a current diagnosis for this admission?: YesPlan: See covering attending physician orders. (2) Chronic obstructive asthma with exacerbation Is this a current diagnosis for this admission?: YesPlan: See covering attending physician orders. PAient will be provided with flutter device to aide sputum expectoration. - Time Time Spent with patient: 25-34 minutes Medications reviewed and adjusted accordingly: Yes Anticipated discharge: Home with Homehealth Within: Other - Inpatient Certification Based on my medical assessment, after consideration of the patient's comorbidities, presenting symptoms, or acuity I expect that the services needed warrant INPATIENT care.: Yes I certify that my determination is in accordance with my understanding of Medicare's requirements for reasonable and necessary INPATIENT services [42 CFR 412.3e].: Yes Medical Necessity: Need Close Monitoring Due to Risk of Patient Decompensation, Need For IV Fluids, Need For Continuous Telemetry Monitoring, Need for Nebulizer Therapy and Monitoring of Response, Need for IV Antibiotics, Risk of Diagnosis Which Will Require Inpatient Eval/Care/Monitoring Post 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
[2016-09-14] MEDS: ONDANSETRON HCL INJ/PF 4 MG/2 ML SDV IV PRN (15:39)
[2016-09-14] MEDS: ATORVASTATIN CALCIUM 40 MG TABLET PO SCH (21:44)
[2016-09-14] MEDS: INSULIN GLARGINE,HUM.REC.ANLOG 300 UNIT/3 ML INSULN.PEN SUBCUT SCH (21:45)
[2016-09-15] MEDS: HYDROMORPHONE HCL INJ/PF 2 MG/ML AMPULE IV PRN ×6 (02:13→23:54)
[2016-09-15] MEDS: CEFAZOLIN 1 GM/D5W RTU 1 GM/50 ML RTUPB IV SCH ×2 (03:28→09:30)
[2016-09-15] MEDS: GABAPENTIN 300 MG CAPSULE PO SCH ×3 (06:26→23:00)
[2016-09-15] MEDS: LANSOPRAZOLE 30 MG TAB.RAP.DR PO SCH (06:27)
[2016-09-15] MEDS: PRAMIPEXOLE DI-HCL 0.25 MG TABLET PO SCH ×3 (06:27→23:00)
[2016-09-15] MEDS: METFORMIN HCL 500 MG TABLET PO SCH ×2 (07:57→16:42)
[2016-09-15] MEDS: INSULIN LISPRO 100 UNIT/ML 3 ML VIAL SUBCUT PRN ×3 (09:21→23:00)
[2016-09-15] MEDS: ENOXAPARIN SODIUM INJ 40 MG/0.4 ML DISP.SYRIN SUBCUT SCH (09:34)
[2016-09-15] MEDS: ALBUTEROL SULFATE HFA (90 MCG/PUFF) 200 PUFF/8.5 GM MDI IH PRN (09:35)
[2016-09-15] MEDS: TIOTROPIUM BROMIDE DPI 5 CAP/KIT (18 MCG/CAP) IH SCH (09:36)
[2016-09-15] MEDS: DULOXETINE HCL 30 MG CAPSULE.DR PO SCH (09:38)
[2016-09-15] MEDS: FLUTICASONE/SALMETEROL DISKUS 250-50 MCG/DOSE IH SCH ×2 (09:38→23:01)
[2016-09-15] MEDS: PIOGLITAZONE HCL 15 MG TABLET PO SCH (09:39)
[2016-09-15] MEDS: CLOPIDOGREL BISULFATE 75 MG TABLET PO SCH (09:39)
[2016-09-15] MEDS: PREDNISONE 20 MG TABLET PO SCH (09:40)
[2016-09-15] MEDS: SACUBITRIL/VALSARTAN 24 MG/26 MG TABLET PO SCH ×2 (09:40→23:00)
[2016-09-15] MEDS: METOPROLOL TARTRATE 25 MG TABLET PO SCH ×2 (09:41→23:00)
[2016-09-15] MEDS: FERROUS SULFATE 325 MG TABLET PO SCH (09:43)
[2016-09-15] MEDS: NORMAL SALINE 10 ML SDV (SCHEDULED) IV SCH ×2 (11:47→23:00)
--- NOTE | 2016-09-15 13:04 | PDOC PROGRESS REPORT ---
Subjective Progress Note for:: 09/15/16 Subjective:: No chest pain. Chest congestion improving with Flutter device usage. Remain on supplemental oxygen via nasal cannula. No fever or chills. No abdominal pain, nausea or vomiting. Physical Exam Vital Signs: Temp Pulse Resp BP Pulse Ox 98.5 F 77 18 118/53 L 98 09/15/16 08:04 09/15/16 08:04 09/15/16 08:04 09/15/16 08:04 09/15/16 08:04 Intake & Output 09/14/16 09/15/16 09/16/16 06:59 06:59 06:59 Intake Total 1859 1716 Output Total 1300 1350 Balance 559 366 Weight 132.6 kg 132.6 kg Physical Exam: General appearance: PRESENT: cooperative, mild distress - due to difficulty with breathing, morbidly obese Head exam: PRESENT: atraumatic, normocephalic Eye exam: PRESENT: EOMI, PERRLA Mouth exam: PRESENT: moist Teeth exam: PRESENT: edentulous Respiratory exam: PRESENT: clear to auscultation rolf, decreased breath sounds - at lung bases Cardiovascular exam: PRESENT: RRR, +S1, +S2 GI/Abdominal exam: PRESENT: normal bowel sounds, soft. ABSENT: distended, guarding, mass, organomegaly, rebound, tenderness Extremities exam: ABSENT: pedal edema Musculoskeletal exam: PRESENT: deformity - related to multiple joints involvement with arthritis, tenderness - to palpation Neurological exam: PRESENT: alert, awake, oriented to person, oriented to place , oriented to time, oriented to situation, CN II-XII grossly intact. ABSENT: motor sensory deficit Psychiatric exam: PRESENT: appropriate affect, normal mood. ABSENT: homicidal ideation, suicidal ideation Skin exam: PRESENT: dry, intact, warm. ABSENT: cyanosis, rash Results Laboratory Results: 09/10/16 05:37 09/10/16 05:37 09/05/16 09/05/16 09/06/16 22:15 22:15 04:21 CK-MB (CK-2) 1.29 1.07 NT-Pro-B Natriuret Pep 3110 H 09/06/16 11:23 CK-MB (CK-2) 1.09 NT-Pro-B Natriuret Pep Impressions: Chest X-Ray 09/04/16 14:18 IMPRESSION: No significant interval change. No acute findings. Other findings as noted above Chest/Abdomen CTA 09/04/16 16:08 IMPRESSION: NO PULMONARY EMBOLI OR ACUTE INTRATHORACIC PROCESS IDENTIFIED. NO SIGNIFICANT CHANGE FROM PRIOR STUDIES. Guidance Fluoroscopy 09/09/16 00:00 IMPRESSION: SUCCESSFUL PLACEMENT OF A 5 FR DUAL LUMEN 48 CM PICC IN THE LEFT BASILIC VEIN. Interventional Vascular Procedure 09/09/16 00:00 IMPRESSION: SUCCESSFUL PLACEMENT OF A 5 FR DUAL LUMEN 48 CM PICC IN THE LEFT BASILIC VEIN. PICC Line Insertion 09/09/16 00:00 IMPRESSION: SUCCESSFUL PLACEMENT OF A 5 FR DUAL LUMEN 48 CM PICC IN THE LEFT BASILIC VEIN. Assessment & Plan - Diagnosis (1) Acute hypercapnic respiratory failure Is this a current diagnosis for this admission?: Yes (2) Chronic obstructive asthma with exacerbation Is this a current diagnosis for this admission?: Yes - Time Time Spent with patient: 25-34 minutes Medications reviewed and adjusted accordingly: Yes Anticipated discharge: Home with Homehealth Within: Other - Inpatient Certification Medical Necessity: Need Close Monitoring Due to Risk of Patient Decompensation, Need For Continuous Telemetry Monitoring, Need for Nebulizer Therapy and Monitoring of Response, Need for IV Antibiotics, Risk of Complication if Not Cared For in Hospital Post Hospital Care: D/C [employer] Documentation - Plan Summary Plan Summary: Continue current medication management. Decrease Prednisone to 10 mg po daily from tomorrow.
[2016-09-15] MEDS: INSULIN GLARGINE,HUM.REC.ANLOG 300 UNIT/3 ML INSULN.PEN SUBCUT SCH (23:00)
[2016-09-15] MEDS: ATORVASTATIN CALCIUM 40 MG TABLET PO SCH (23:00)
[2016-09-16] MEDS: HYDROMORPHONE HCL INJ/PF 2 MG/ML AMPULE IV PRN ×5 (04:02→21:41)
[2016-09-16 04:49] LABS: ABSOLUTE LYMPHOCYTES (AUTO) 1.1 10^3/uL (0.5-4.7); ABSOLUTE NEUT (AUTO) 10.1 10^3/uL (1.7-8.2); BASOPHILS % (AUTO) 0.1 % (0-2); EOSINOPHILS % (AUTO) 0.2 % (0-6); HEMATOCRIT 33.7 % (36.0-47.0); HEMOGLOBIN 10.7 g/dL (12.0-15.5); HGB HCT DIFFERENCE -1.6; MEAN CORPUSCULAR HEMOGLOBIN 30.1 pg (27.0-33.4); MEAN CORPUSCULAR HGB CONC 31.8 g/dL (32.0-36.0); MEAN CORPUSCULAR VOLUME 95 fl (80-97); RED BLOOD COUNT 3.56 10^6/uL (3.72-5.28); RED CELL DISTRIBUTION WIDTH 15.3 % (11.5-14.0); SEGMENTED NEUTROPHILS % (AUTO) 82.7 % (42-78); WHITE BLOOD COUNT 12.2 10^3/uL (4.0-10.5)
[2016-09-16 05:17] LABS: ALANINE AMINOTRANSFERASE 20 U/L (9-52); ALBUMIN 3.1 g/dL (3.5-5.0); ALKALINE PHOSPHATASE 55 U/L (38-126); ASPARTATE AMINO TRANSFERASE 11 U/L (14-36); BILIRUBIN,DIRECT 0.3 mg/dL (0.0-0.4); BILIRUBIN,TOTAL 0.3 mg/dL (0.2-1.3); BLOOD UREA NITROGEN 31 mg/dL (7-20); CALCIUM 9.1 mg/dL (8.4-10.2); CHLORIDE 90 mmol/L (98-107); CREATININE RESULT 0.72 mg/dL (0.52-1.25); GLUCOSE 236 mg/dL (75-110); POTASSIUM 4.4 mmol/L (3.6-5.0); SODIUM 136.3 mmol/L (137-145); TOTAL PROTEIN 5.4 g/dL (6.3-8.2)
[2016-09-16 05:30] LABS: ANION GAP 9 (5-19)
[2016-09-16 05:35] LABS: CARBON DIOXIDE 37 mmol/L (22-30)
[2016-09-16] MEDS: GABAPENTIN 300 MG CAPSULE PO SCH ×3 (06:08→21:40)
[2016-09-16] MEDS: PRAMIPEXOLE DI-HCL 0.25 MG TABLET PO SCH ×3 (06:09→21:40)
[2016-09-16] MEDS: LANSOPRAZOLE 30 MG TAB.RAP.DR PO SCH (06:09)
[2016-09-16] MEDS: METFORMIN HCL 500 MG TABLET PO SCH ×2 (08:51→17:46)
[2016-09-16] MEDS: NORMAL SALINE 10 ML SDV (SCHEDULED) IV SCH ×2 (08:52→21:43)
[2016-09-16] MEDS: CLOPIDOGREL BISULFATE 75 MG TABLET PO SCH (08:53)
[2016-09-16] MEDS: DULOXETINE HCL 30 MG CAPSULE.DR PO SCH (08:53)
[2016-09-16] MEDS: FERROUS SULFATE 325 MG TABLET PO SCH (08:54)
[2016-09-16] MEDS: METOPROLOL TARTRATE 25 MG TABLET PO SCH ×2 (08:54→21:39)
[2016-09-16] MEDS: PIOGLITAZONE HCL 15 MG TABLET PO SCH (08:56)
[2016-09-16] MEDS: PREDNISONE 20 MG TABLET PO SCH (08:56)
[2016-09-16] MEDS: ENOXAPARIN SODIUM INJ 40 MG/0.4 ML DISP.SYRIN SUBCUT SCH (08:57)
[2016-09-16] MEDS: INSULIN LISPRO 100 UNIT/ML 3 ML VIAL SUBCUT PRN ×3 (08:59→22:35)
[2016-09-16] MEDS: FLUTICASONE/SALMETEROL DISKUS 250-50 MCG/DOSE IH SCH ×2 (09:00→21:43)
[2016-09-16] MEDS: SACUBITRIL/VALSARTAN 24 MG/26 MG TABLET PO SCH ×2 (09:01→21:40)
[2016-09-16] MEDS: TIOTROPIUM BROMIDE DPI 5 CAP/KIT (18 MCG/CAP) IH SCH (09:01)
[2016-09-16] MEDS: ONDANSETRON HCL INJ/PF 4 MG/2 ML SDV IV PRN ×2 (13:08→21:41)
--- NOTE | 2016-09-16 14:30 | PDOC PROGRESS REPORT ---
Subjective Progress Note for:: 09/16/16 Subjective:: Not feeling very well today Physical Exam Vital Signs: Temp Pulse Resp BP Pulse Ox 98.4 F 103 H 20 145/68 H 98 09/16/16 07:40 09/16/16 07:40 09/16/16 07:40 09/16/16 07:40 09/16/16 07:40 Intake & Output 09/15/16 09/16/16 09/17/16 06:59 06:59 06:59 Intake Total 1716 2815 Output Total 1350 3550 Balance 366 -735 Weight 132.6 kg 131.7 kg General appearance: PRESENT: no acute distress, cooperative, disheveled, morbidly obese, well-developed Head exam: PRESENT: atraumatic, normocephalic Eye exam: PRESENT: conjunctiva pale, EOMI Mouth exam: PRESENT: dry mucosa, neck supple, tongue midline Neck exam: ABSENT: carotid bruit, JVD, lymphadenopathy, thyromegaly Respiratory exam: PRESENT: decreased breath sounds, prolonged expiratory phas, rales, rhonchi, symmetrical, unlabored Cardiovascular exam: PRESENT: RRR, +S1, +S2 Pulses: PRESENT: normal radial pulses GI/Abdominal exam: PRESENT: normal bowel sounds, soft. ABSENT: distended, guarding, mass, organolmegaly, rebound, tenderness Rectal exam: PRESENT: deferred Extremities exam: PRESENT: +1 edema Skin exam: PRESENT: dry, warm Results Laboratory Results: 09/16/16 04:09 09/16/16 04:09 09/16/16 09/16/16 04:09 04:09 WBC 12.2 H RBC 3.56 L Hgb 10.7 L Hct 33.7 L MCV 95 MCH 30.1 MCHC 31.8 L RDW 15.3 H Plt Count 305 Seg Neutrophils % 82.7 H Lymphocytes % 9.0 L Monocytes % 8.0 Eosinophils % 0.2 Basophils % 0.1 Absolute Neutrophils 10.1 H Absolute Lymphocytes 1.1 Absolute Monocytes 1.0 Absolute Eosinophils 0.0 Absolute Basophils 0.0 Sodium 136.3 L Potassium 4.4 Chloride 90 L Carbon Dioxide 37 H Anion Gap 9 BUN 31 H Creatinine 0.72 Est GFR ( Amer) > 60 Est GFR (Non-Af Amer) > 60 Glucose 236 H Calcium 9.1 Total Bilirubin 0.3 AST 11 L ALT 20 Alkaline Phosphatase 55 Total Protein 5.4 L Albumin 3.1 L 09/05/16 09/05/16 09/06/16 22:15 22:15 04:21 CK-MB (CK-2) 1.29 1.07 NT-Pro-B Natriuret Pep 3110 H 09/06/16 11:23 CK-MB (CK-2) 1.09 NT-Pro-B Natriuret Pep Impressions: Chest X-Ray 09/04/16 14:18 IMPRESSION: No significant interval change. No acute findings. Other findings as noted above Chest/Abdomen CTA 09/04/16 16:08 IMPRESSION: NO PULMONARY EMBOLI OR ACUTE INTRATHORACIC PROCESS IDENTIFIED. NO SIGNIFICANT CHANGE FROM PRIOR STUDIES. Guidance Fluoroscopy 09/09/16 00:00 IMPRESSION: SUCCESSFUL PLACEMENT OF A 5 FR DUAL LUMEN 48 CM PICC IN THE LEFT BASILIC VEIN. Interventional Vascular Procedure 09/09/16 00:00 IMPRESSION: SUCCESSFUL PLACEMENT OF A 5 FR DUAL LUMEN 48 CM PICC IN THE LEFT BASILIC VEIN. PICC Line Insertion 09/09/16 00:00 IMPRESSION: SUCCESSFUL PLACEMENT OF A 5 FR DUAL LUMEN 48 CM PICC IN THE LEFT BASILIC VEIN. Assessment & Plan - Diagnosis (1) Acute hypercapnic respiratory failure Is this a current diagnosis for this admission?: Yes (2) COPD (chronic obstructive pulmonary disease) Qualifiers: COPD type: COPD with acute exacerbation Qualified Code(s): J44.1 - Chronic obstructive pulmonary disease with (acute) exacerbation Is this a current diagnosis for this admission?: YesPlan: Generic Name Dose Route Start Last Admin Trade Name Freq PRN Reason Stop Dose Admin Tiotropium [place] 1 cap 09/05/16 10:00 09/16/16 09:01 Spiriva Handihaler 5 Cap/Kit (18 Mcg/Cap) 10/05/16 09:59 1 cap DAILY JONES Albuterol 2 puff 09/05/16 07:41 09/15/16 09:35 Proair Hfa Inhalation Aerosol 8.5 Gm Mdi 10/05/16 07:40 2 puff Q4HP PRN SHORTNESS OF BREATH Albuterol/Ipratropium 3 ml 09/07/16 11:28 09/08/16 14:22 Duoneb 3 Ml Ampul NEB 10/07/16 11:27 3 ml RTQ3HP PRN SHORTNESS OF BREATH Fluticasone/Salmeterol 1 inh 09/04/16 22:00 09/16/16 09:00 Advair 250-50 Diskus 14 Dose/Diskus IH 10/04/16 21:59 1 inh Q12 JONES Consider discontinuation of the DuoNeb this is somewhat redundant with Spiriva and Advair
[2016-09-16] MEDS ORDERED: FUROSEMIDE INJ/PF 40 MG/4 ML SDV IV ONE (20:15)
--- NOTE | 2016-09-16 20:22 | PDOC PROGRESS REPORT ---
Subjective Progress Note for:: 09/16/16 Subjective:: She was seen by the bedside, she complained of dysuria, she has E. coli UTI sensitive to cefazolin ,. She has retained a lot of fluid most likely from combination of steroid therapy and IV fluids. The IV cefazolin is fall of the APR,this will be transitioned to p.o. cefuroxime Physical Exam Vital Signs: Temp Pulse Resp BP Pulse Ox 98.5 F 76 20 118/52 L 98 09/16/16 19:58 09/16/16 19:58 09/16/16 19:58 09/16/16 19:58 09/16/16 19:58 Intake & Output 09/15/16 09/16/16 09/17/16 06:59 06:59 06:59 Intake Total 1716 2815 832 Output Total 1350 3550 200 Balance 366 -735 632 Weight 132.6 kg 131.7 kg General appearance: PRESENT: no acute distress Eye exam: PRESENT: PERRLA Respiratory exam: PRESENT: clear to auscultation rolf Cardiovascular exam: PRESENT: +S1, +S2 GI/Abdominal exam: PRESENT: soft Extremities exam: PRESENT: other - EDEMA Neurological exam: PRESENT: alert, CN II-XII grossly intact Results Laboratory Results: 09/16/16 04:09 09/16/16 04:09 09/16/16 09/16/16 04:09 04:09 WBC 12.2 H RBC 3.56 L Hgb 10.7 L Hct 33.7 L MCV 95 MCH 30.1 MCHC 31.8 L RDW 15.3 H Plt Count 305 Seg Neutrophils % 82.7 H Lymphocytes % 9.0 L Monocytes % 8.0 Eosinophils % 0.2 Basophils % 0.1 Absolute Neutrophils 10.1 H Absolute Lymphocytes 1.1 Absolute Monocytes 1.0 Absolute Eosinophils 0.0 Absolute Basophils 0.0 Sodium 136.3 L Potassium 4.4 Chloride 90 L Carbon Dioxide 37 H Anion Gap 9 BUN 31 H Creatinine 0.72 Est GFR ( Amer) > 60 Est GFR (Non-Af Amer) > 60 Glucose 236 H Calcium 9.1 Total Bilirubin 0.3 AST 11 L ALT 20 Alkaline Phosphatase 55 Total Protein 5.4 L Albumin 3.1 L 09/05/16 09/05/16 09/06/16 22:15 22:15 04:21 CK-MB (CK-2) 1.29 1.07 NT-Pro-B Natriuret Pep 3110 H 09/06/16 11:23 CK-MB (CK-2) 1.09 NT-Pro-B Natriuret Pep Impressions: Chest X-Ray 09/04/16 14:18 IMPRESSION: No significant interval change. No acute findings. Other findings as noted above Chest/Abdomen CTA 09/04/16 16:08 IMPRESSION: NO PULMONARY EMBOLI OR ACUTE INTRATHORACIC PROCESS IDENTIFIED. NO SIGNIFICANT CHANGE FROM PRIOR STUDIES. Guidance Fluoroscopy 09/09/16 00:00 IMPRESSION: SUCCESSFUL PLACEMENT OF A 5 FR DUAL LUMEN 48 CM PICC IN THE LEFT BASILIC VEIN. Interventional Vascular Procedure 09/09/16 00:00 IMPRESSION: SUCCESSFUL PLACEMENT OF A 5 FR DUAL LUMEN 48 CM PICC IN THE LEFT BASILIC VEIN. PICC Line Insertion 09/09/16 00:00 IMPRESSION: SUCCESSFUL PLACEMENT OF A 5 FR DUAL LUMEN 48 CM PICC IN THE LEFT BASILIC VEIN. Assessment & Plan - Diagnosis (1) Acute hypercapnic respiratory failure Is this a current diagnosis for this admission?: Yes (2) Chronic obstructive pulmonary disease with acute exacerbation Is this a current diagnosis for this admission?: Yes (3) Physical deconditioning Is this a current diagnosis for this admission?: Yes (4) Respiratory distress Is this a current diagnosis for this admission?: Yes (5) Coronary artery disease Qualifiers: Coronary Disease-Associated Artery/Lesion type: [place] artery [place] vs. transplanted heart: [place] heart Associated angina: angina presence unspecified Qualified Code(s): I25.10 - Atherosclerotic heart disease of [place] coronary artery without angina pectoris Is this a current diagnosis for this admission?: Yes (6) Diabetes mellitus Qualifiers: Diabetes mellitus type: type 2 Diabetes mellitus complication status: with neurologic complications Diabetes mellitus complication detail: with polyneuropathy Diabetes mellitus business solutions architect insulin use: with business solutions architect use Qualified Code(s): E11.42 - Type 2 diabetes mellitus with diabetic polyneuropathy; Z79.4 - alf (current) use of insulin Is this a current diagnosis for this admission?: Yes (7) E. coli UTI Is this a current diagnosis for this admission?: YesPlan: Give Lasix 80 mg IV
[2016-09-16] MEDS ORDERED: FUROSEMIDE INJ/PF 100 MG/10 ML SDV ONE (21:29)
[2016-09-16] MEDS: ATORVASTATIN CALCIUM 40 MG TABLET PO SCH (21:39)
[2016-09-16] MEDS: CEFUROXIME 250 MG TABLET PO SCH (21:42)
[2016-09-16] MEDS: INSULIN GLARGINE,HUM.REC.ANLOG 300 UNIT/3 ML INSULN.PEN SUBCUT SCH (22:34)
[2016-09-17] MEDS: HYDROMORPHONE HCL INJ/PF 2 MG/ML AMPULE IV PRN ×6 (02:03→23:59)
[2016-09-17] MEDS: GABAPENTIN 300 MG CAPSULE PO SCH ×3 (05:31→22:26)
[2016-09-17] MEDS: PRAMIPEXOLE DI-HCL 0.25 MG TABLET PO SCH ×3 (05:32→22:26)
[2016-09-17] MEDS: LANSOPRAZOLE 30 MG TAB.RAP.DR PO SCH (05:32)
[2016-09-17 06:50] LABS: ARTERIAL BLOOD BASE EXCESS 13.3 mmol/L
[2016-09-17] MEDS: TRAMADOL HCL 50 MG TABLET PO PRN (06:56)
[2016-09-17] MEDS: METFORMIN HCL 500 MG TABLET PO SCH ×2 (08:22→17:00)
--- NOTE | 2016-09-17 08:26 | RADIOLOGY REPORT (SQ) ---
EXAM DESCRIPTION: CHEST PA/LAT COMPLETED DATE/TIME: 09/17/2016 7:50 am REASON FOR STUDY: Chronic respiratory failure COMPARISON: 08/31/2016. NUMBER OF VIEWS: Two view. TECHNIQUE: Frontal and lateral radiographic views of the chest acquired. LIMITATIONS: None. FINDINGS: LUNGS AND PLEURA: No opacities, masses or pneumothorax. No pleural effusion. Attenuated bl ood vessels and flattened adia-diaphragms. MEDIASTINUM AND HILAR STRUCTURES: No masses. No contour abnormalities. HEART AND VASCULAR STRUCTURES: Heart normal in size and contour. No evidence for failure. BONES: No acute findings. HARDWARE: PICC line. OTHER: No other significant finding. IMPRESSION: COPD. NO ACUTE RADIOGRAPHIC FINDING IN THE CHEST. TECHNICAL DOCUMENTATION: JOB ID: [id number] [employer]- All Rights Reserved
[2016-09-17] MEDS: INSULIN LISPRO 100 UNIT/ML 3 ML VIAL SUBCUT PRN ×3 (08:35→22:27)
[2016-09-17] MEDS: ENOXAPARIN SODIUM INJ 40 MG/0.4 ML DISP.SYRIN SUBCUT SCH (10:48)
[2016-09-17] MEDS: DULOXETINE HCL 30 MG CAPSULE.DR PO SCH (10:52)
[2016-09-17] MEDS: PIOGLITAZONE HCL 15 MG TABLET PO SCH (10:52)
[2016-09-17] MEDS: PREDNISONE 20 MG TABLET PO SCH (10:53)
[2016-09-17] MEDS: FERROUS SULFATE 325 MG TABLET PO SCH (10:53)
[2016-09-17] MEDS: CLOPIDOGREL BISULFATE 75 MG TABLET PO SCH (10:53)
[2016-09-17] MEDS: METOPROLOL TARTRATE 25 MG TABLET PO SCH ×2 (10:54→22:26)
[2016-09-17] MEDS: ALBUTEROL SULFATE HFA (90 MCG/PUFF) 200 PUFF/8.5 GM MDI IH PRN (10:59)
[2016-09-17] MEDS: TIOTROPIUM BROMIDE DPI 5 CAP/KIT (18 MCG/CAP) IH SCH (11:00)
[2016-09-17] MEDS: FLUTICASONE/SALMETEROL DISKUS 250-50 MCG/DOSE IH SCH ×2 (11:01→22:27)
[2016-09-17] MEDS: CEFUROXIME 250 MG TABLET PO SCH ×2 (11:11→22:26)
[2016-09-17] MEDS: SACUBITRIL/VALSARTAN 24 MG/26 MG TABLET PO SCH ×2 (11:11→22:26)
[2016-09-17] MEDS: ONDANSETRON HCL INJ/PF 4 MG/2 ML SDV IV PRN (11:56)
[2016-09-17] MEDS: NORMAL SALINE 10 ML SDV (AFTER EACH USE) IV PRN ×3 (11:57→23:59)
[2016-09-17] MEDS: NORMAL SALINE 10 ML SDV (SCHEDULED) IV SCH ×2 (12:03→22:27)
--- NOTE | 2016-09-17 17:13 | PDOC PROGRESS REPORT ---
Subjective Progress Note for:: 09/17/16 Subjective:: Not feeling very well today Physical Exam Vital Signs: Temp Pulse Resp BP Pulse Ox 98.5 F 98 16 122/52 L 96 09/17/16 03:43 09/17/16 07:00 09/17/16 03:43 09/17/16 03:50 09/17/16 03:52 Intake & Output 09/16/16 09/17/16 09/18/16 06:59 06:59 06:59 Intake Total 2815 1632 Output Total 3550 2270 Balance -735 -768 Weight 131.7 kg 130.9 kg General appearance: PRESENT: no acute distress, disheveled, morbidly obese, well -developed Head exam: PRESENT: atraumatic, normocephalic Eye exam: PRESENT: conjunctiva pale, EOMI Mouth exam: PRESENT: dry mucosa, neck supple, tongue midline Neck exam: ABSENT: carotid bruit, JVD, lymphadenopathy, thyromegaly Respiratory exam: PRESENT: decreased breath sounds, prolonged expiratory phas, symmetrical, unlabored Cardiovascular exam: PRESENT: RRR, +S1, +S2 Pulses: PRESENT: normal radial pulses GI/Abdominal exam: PRESENT: normal bowel sounds, soft. ABSENT: distended, guarding, mass, organolmegaly, rebound, tenderness Rectal exam: PRESENT: deferred Gentrourinary exam: PRESENT: indwelling catheter Musculoskeletal exam: PRESENT: normal inspection Neurological exam: PRESENT: alert, awake Skin exam: PRESENT: dry, warm Results Laboratory Results: 09/16/16 04:09 09/16/16 04:09 09/17/16 06:35 Carbonic Acid 1.67 H HCO3/H2CO3 Ratio 23:1 ABG pH 7.46 H ABG pCO2 55.6 H ABG pO2 88.5 ABG HCO3 38.9 H ABG O2 Saturation 97.0 ABG Base Excess 13.3 FiO2 32% 09/05/16 09/05/16 09/06/16 22:15 22:15 04:21 CK-MB (CK-2) 1.29 1.07 NT-Pro-B Natriuret Pep 3110 H 09/06/16 11:23 CK-MB (CK-2) 1.09 NT-Pro-B Natriuret Pep Impressions: Chest/Abdomen CTA 09/04/16 16:08 IMPRESSION: NO PULMONARY EMBOLI OR ACUTE INTRATHORACIC PROCESS IDENTIFIED. NO SIGNIFICANT CHANGE FROM PRIOR STUDIES. Guidance Fluoroscopy 09/09/16 00:00 IMPRESSION: SUCCESSFUL PLACEMENT OF A 5 FR DUAL LUMEN 48 CM PICC IN THE LEFT BASILIC VEIN. Interventional Vascular Procedure 09/09/16 00:00 IMPRESSION: SUCCESSFUL PLACEMENT OF A 5 FR DUAL LUMEN 48 CM PICC IN THE LEFT BASILIC VEIN. PICC Line Insertion 09/09/16 00:00 IMPRESSION: SUCCESSFUL PLACEMENT OF A 5 FR DUAL LUMEN 48 CM PICC IN THE LEFT BASILIC VEIN. Chest X-Ray 09/17/16 06:00 IMPRESSION: COPD. NO ACUTE RADIOGRAPHIC FINDING IN THE CHEST. Assessment & Plan - Diagnosis (1) Acute hypercapnic respiratory failure Is this a current diagnosis for this admission?: YesPlan: Improving (2) COPD (chronic obstructive pulmonary disease) Qualifiers: COPD type: COPD with acute exacerbation Qualified Code(s): J44.1 - Chronic obstructive pulmonary disease with (acute) exacerbation Is this a current diagnosis for this admission?: YesPlan: Generic Name Dose Route Start Last Admin Trade Name Freq PRN Reason Stop Dose Admin Tiotropium [place] 1 cap 09/05/16 10:00 09/16/16 09:01 Spiriva Handihaler 5 Cap/Kit (18 Mcg/Cap) 10/05/16 09:59 1 cap DAILY [facility] Albuterol 2 puff 09/05/16 07:41 09/15/16 09:35 Proair Hfa Inhalation Aerosol 8.5 Gm Mdi 10/05/16 07:40 2 puff Q4HP PRN SHORTNESS OF BREATH Albuterol/Ipratropium 3 ml 09/07/16 11:28 09/08/16 14:22 Duoneb 3 Ml Ampul NEB 10/07/16 11:27 3 ml [id number] PRN SHORTNESS OF BREATH Fluticasone/Salmeterol 1 inh 09/04/16 22:00 09/16/16 09:00 Advair 250-50 Diskus 14 Dose/Diskus 10/04/16 21:59 1 inh Q12 JONES Consider discontinuation of the DuoNeb this is somewhat redundant with Spiriva and Advair
--- NOTE | 2016-09-17 21:49 | PDOC PROGRESS REPORT ---
Subjective Progress Note for:: 09/17/16 Subjective:: Patient was seen by the bedside, she continues to retain fluid most likely from steroid/prednisone Physical Exam Vital Signs: Temp Pulse Resp BP Pulse Ox 98.8 F 88 20 93/75 L 99 09/17/16 20:02 09/17/16 20:02 09/17/16 20:02 09/17/16 20:02 09/17/16 20:02 Intake & Output 09/16/16 09/17/16 09/18/16 06:59 06:59 06:59 Intake Total 2815 1632 1047 Output Total 3550 2400 Balance -735 -374 1047 Weight 131.7 kg 130.9 kg General appearance: PRESENT: no acute distress Eye exam: PRESENT: PERRLA Respiratory exam: PRESENT: clear to auscultation rolf Cardiovascular exam: PRESENT: +S1, +S2 GI/Abdominal exam: PRESENT: soft Neurological exam: PRESENT: alert Results Laboratory Results: 09/16/16 04:09 09/16/16 04:09 09/17/16 06:35 Carbonic Acid 1.67 H HCO3/H2CO3 Ratio 23:1 ABG pH 7.46 H ABG pCO2 55.6 H ABG pO2 88.5 ABG HCO3 38.9 H ABG O2 Saturation 97.0 ABG Base Excess 13.3 FiO2 32% 09/05/16 09/05/16 09/06/16 22:15 22:15 04:21 CK-MB (CK-2) 1.29 1.07 NT-Pro-B Natriuret Pep 3110 H 09/06/16 11:23 CK-MB (CK-2) 1.09 NT-Pro-B Natriuret Pep Impressions: Chest/Abdomen CTA 09/04/16 16:08 IMPRESSION: NO PULMONARY EMBOLI OR ACUTE INTRATHORACIC PROCESS IDENTIFIED. NO SIGNIFICANT CHANGE FROM PRIOR STUDIES. Guidance Fluoroscopy 09/09/16 00:00 IMPRESSION: SUCCESSFUL PLACEMENT OF A 5 FR DUAL LUMEN 48 CM PICC IN THE LEFT BASILIC VEIN. Interventional Vascular Procedure 09/09/16 00:00 IMPRESSION: SUCCESSFUL PLACEMENT OF A 5 FR DUAL LUMEN 48 CM PICC IN THE LEFT BASILIC VEIN. PICC Line Insertion 09/09/16 00:00 IMPRESSION: SUCCESSFUL PLACEMENT OF A 5 FR DUAL LUMEN 48 CM PICC IN THE LEFT BASILIC VEIN. Chest X-Ray 09/17/16 06:00 IMPRESSION: COPD. NO ACUTE RADIOGRAPHIC FINDING IN THE CHEST. Assessment & Plan - Diagnosis (1) Acute hypercapnic respiratory failure Is this a current diagnosis for this admission?: Yes (2) Chronic obstructive pulmonary disease with acute exacerbation Is this a current diagnosis for this admission?: Yes (3) Physical deconditioning Is this a current diagnosis for this admission?: Yes (4) Respiratory distress Is this a current diagnosis for this admission?: Yes (5) Coronary artery disease Qualifiers: Coronary Disease-Associated Artery/Lesion type: [place] artery [place] vs. transplanted heart: [place] heart Associated angina: angina presence unspecified Qualified Code(s): I25.10 - Atherosclerotic heart disease of [place] coronary artery without angina pectoris Is this a current diagnosis for this admission?: Yes (6) Diabetes mellitus Qualifiers: Diabetes mellitus type: type 2 Diabetes mellitus complication status: with neurologic complications Diabetes mellitus complication detail: with polyneuropathy Diabetes mellitus intermodal dispatcher insulin use: with chcf use Qualified Code(s): E11.42 - Type 2 diabetes mellitus with diabetic polyneuropathy; Z79.4 - intermodal dispatcher (current) use of insulin Is this a current diagnosis for this admission?: Yes (7) E. coli UTI Is this a current diagnosis for this admission?: Yes
[2016-09-17] MEDS: ATORVASTATIN CALCIUM 40 MG TABLET PO SCH (22:26)
[2016-09-17] MEDS: INSULIN GLARGINE,HUM.REC.ANLOG 300 UNIT/3 ML INSULN.PEN SUBCUT SCH (22:27)
[2016-09-18] MEDS: HYDROMORPHONE HCL INJ/PF 2 MG/ML AMPULE IV PRN ×5 (04:08→21:27)
[2016-09-18] MEDS: NORMAL SALINE 10 ML SDV (AFTER EACH USE) IV PRN (04:08)
[2016-09-18] MEDS: PRAMIPEXOLE DI-HCL 0.25 MG TABLET PO SCH ×3 (06:30→21:27)
[2016-09-18] MEDS: LANSOPRAZOLE 30 MG TAB.RAP.DR PO SCH (06:30)
[2016-09-18] MEDS: GABAPENTIN 300 MG CAPSULE PO SCH ×3 (06:30→21:27)
[2016-09-18] MEDS: INSULIN LISPRO 100 UNIT/ML 3 ML VIAL SUBCUT PRN ×3 (08:23→21:37)
[2016-09-18] MEDS: METFORMIN HCL 500 MG TABLET PO SCH ×2 (08:24→16:52)
[2016-09-18] MEDS: CLOPIDOGREL BISULFATE 75 MG TABLET PO SCH (09:31)
[2016-09-18] MEDS: PIOGLITAZONE HCL 15 MG TABLET PO SCH (09:31)
[2016-09-18] MEDS: SACUBITRIL/VALSARTAN 24 MG/26 MG TABLET PO SCH ×2 (09:31→21:27)
[2016-09-18] MEDS: METOPROLOL TARTRATE 25 MG TABLET PO SCH ×2 (09:31→21:27)
[2016-09-18] MEDS: TIOTROPIUM BROMIDE DPI 5 CAP/KIT (18 MCG/CAP) IH SCH (09:31)
[2016-09-18] MEDS: CEFUROXIME 250 MG TABLET PO SCH ×2 (09:31→21:27)
[2016-09-18] MEDS: FLUTICASONE/SALMETEROL DISKUS 250-50 MCG/DOSE IH SCH ×2 (09:31→21:27)
[2016-09-18] MEDS: PREDNISONE 20 MG TABLET PO SCH (09:31)
[2016-09-18] MEDS: DULOXETINE HCL 30 MG CAPSULE.DR PO SCH (09:31)
[2016-09-18] MEDS: FERROUS SULFATE 325 MG TABLET PO SCH (09:32)
[2016-09-18] MEDS: NORMAL SALINE 10 ML SDV (SCHEDULED) IV SCH ×2 (09:33→21:28)
[2016-09-18] MEDS: ENOXAPARIN SODIUM INJ 40 MG/0.4 ML DISP.SYRIN SUBCUT SCH (09:40)
--- NOTE | 2016-09-18 17:33 | PDOC PROGRESS REPORT ---
Subjective Progress Note for:: 09/18/16 Subjective:: Patient was seen by the bedside, she is to complain of swelling of the feet due to fluid retention Physical Exam Vital Signs: Temp Pulse Resp BP Pulse Ox 98.5 F 67 16 108/50 L 99 09/18/16 15:53 09/18/16 15:53 09/18/16 15:53 09/18/16 15:53 09/18/16 15:53 Intake & Output 09/17/16 09/18/16 09/19/16 06:59 06:59 06:59 Intake Total 1632 2082 Output Total 2400 1300 Balance -768 782 Weight 130.9 kg 131.4 kg General appearance: PRESENT: no acute distress Eye exam: PRESENT: PERRLA Respiratory exam: PRESENT: clear to auscultation rolf Cardiovascular exam: PRESENT: +S1, +S2 GI/Abdominal exam: PRESENT: soft Neurological exam: PRESENT: alert Results Laboratory Results: 09/16/16 04:09 09/16/16 04:09 09/05/16 09/05/16 09/06/16 22:15 22:15 04:21 CK-MB (CK-2) 1.29 1.07 NT-Pro-B Natriuret Pep 3110 H 09/06/16 11:23 CK-MB (CK-2) 1.09 NT-Pro-B Natriuret Pep Impressions: Chest/Abdomen CTA 09/04/16 16:08 IMPRESSION: NO PULMONARY EMBOLI OR ACUTE INTRATHORACIC PROCESS IDENTIFIED. NO SIGNIFICANT CHANGE FROM PRIOR STUDIES. Guidance Fluoroscopy 09/09/16 00:00 IMPRESSION: SUCCESSFUL PLACEMENT OF A 5 FR DUAL LUMEN 48 CM PICC IN THE LEFT BASILIC VEIN. Interventional Vascular Procedure 09/09/16 00:00 IMPRESSION: SUCCESSFUL PLACEMENT OF A 5 FR DUAL LUMEN 48 CM PICC IN THE LEFT BASILIC VEIN. PICC Line Insertion 09/09/16 00:00 IMPRESSION: SUCCESSFUL PLACEMENT OF A 5 FR DUAL LUMEN 48 CM PICC IN THE LEFT BASILIC VEIN. Chest X-Ray 09/17/16 06:00 IMPRESSION: COPD. NO ACUTE RADIOGRAPHIC FINDING IN THE CHEST. Assessment & Plan - Diagnosis (1) Acute hypercapnic respiratory failure Is this a current diagnosis for this admission?: Yes (2) Chronic obstructive pulmonary disease with acute exacerbation Is this a current diagnosis for this admission?: Yes (3) Physical deconditioning Is this a current diagnosis for this admission?: Yes (4) Respiratory distress Is this a current diagnosis for this admission?: Yes (5) Coronary artery disease Qualifiers: Coronary Disease-Associated Artery/Lesion type: [place] artery [place] vs. transplanted heart: [place] heart Associated angina: angina presence unspecified Qualified Code(s): I25.10 - Atherosclerotic heart disease of [place] coronary artery without angina pectoris Is this a current diagnosis for this admission?: Yes (6) Diabetes mellitus Qualifiers: Diabetes mellitus type: type 2 Diabetes mellitus complication status: with neurologic complications Diabetes mellitus complication detail: with polyneuropathy Diabetes mellitus fpc insulin use: with economics consultant use Qualified Code(s): E11.42 - Type 2 diabetes mellitus with diabetic polyneuropathy; Z79.4 - [facility] (current) use of insulin Is this a current diagnosis for this admission?: Yes (7) E. coli UTI Is this a current diagnosis for this admission?: Yes
[2016-09-18] MEDS ORDERED: FUROSEMIDE INJ/PF 40 MG/4 ML SDV IV ONE (18:30)
[2016-09-18] MEDS: ATORVASTATIN CALCIUM 40 MG TABLET PO SCH (21:28)
[2016-09-18] MEDS: INSULIN GLARGINE,HUM.REC.ANLOG 300 UNIT/3 ML INSULN.PEN SUBCUT SCH (21:37)
[2016-09-19] MEDS: HYDROMORPHONE HCL INJ/PF 2 MG/ML AMPULE IV PRN ×6 (01:18→22:26)
[2016-09-19] MEDS: NORMAL SALINE 10 ML SDV (AFTER EACH USE) IV PRN ×2 (01:18→05:39)
[2016-09-19] MEDS: LANSOPRAZOLE 30 MG TAB.RAP.DR PO SCH (05:38)
[2016-09-19] MEDS: GABAPENTIN 300 MG CAPSULE PO SCH ×3 (05:38→21:07)
[2016-09-19] MEDS: PRAMIPEXOLE DI-HCL 0.25 MG TABLET PO SCH ×3 (05:38→21:08)
[2016-09-19] MEDS: INSULIN LISPRO 100 UNIT/ML 3 ML VIAL SUBCUT PRN ×4 (08:01→21:09)
[2016-09-19] MEDS: CLOPIDOGREL BISULFATE 75 MG TABLET PO SCH (09:07)
[2016-09-19] MEDS: METOPROLOL TARTRATE 25 MG TABLET PO SCH ×2 (09:07→21:08)
[2016-09-19] MEDS: PREDNISONE 20 MG TABLET PO SCH (09:07)
[2016-09-19] MEDS: SACUBITRIL/VALSARTAN 24 MG/26 MG TABLET PO SCH ×2 (09:07→21:07)
[2016-09-19] MEDS: TIOTROPIUM BROMIDE DPI 5 CAP/KIT (18 MCG/CAP) IH SCH (09:07)
[2016-09-19] MEDS: FERROUS SULFATE 325 MG TABLET PO SCH (09:08)
[2016-09-19] MEDS: DULOXETINE HCL 30 MG CAPSULE.DR PO SCH (09:08)
[2016-09-19] MEDS: METFORMIN HCL 500 MG TABLET PO SCH ×2 (09:08→17:35)
[2016-09-19] MEDS: CEFUROXIME 250 MG TABLET PO SCH ×2 (09:09→21:07)
[2016-09-19] MEDS: PIOGLITAZONE HCL 15 MG TABLET PO SCH (09:09)
[2016-09-19] MEDS: NORMAL SALINE 10 ML SDV (SCHEDULED) IV SCH ×2 (09:11→21:09)
[2016-09-19] MEDS: ENOXAPARIN SODIUM INJ 40 MG/0.4 ML DISP.SYRIN SUBCUT SCH (09:16)
[2016-09-19] MEDS: FLUTICASONE/SALMETEROL DISKUS 250-50 MCG/DOSE IH SCH ×2 (09:58→21:08)
--- NOTE | 2016-09-19 17:10 | PDOC PROGRESS REPORT ---
Subjective Progress Note for:: 09/19/16 Subjective:: better today Physical Exam Vital Signs: Temp Pulse Resp BP Pulse Ox 97.9 F 80 18 117/53 L 100 09/19/16 07:07 09/19/16 07:07 09/19/16 07:07 09/19/16 07:07 09/19/16 07:07 Intake & Output 09/18/16 09/19/16 09/20/16 06:59 06:59 06:59 Intake Total 2082 2778 Output Total 1300 2800 Balance 782 -22 Weight 131.4 kg 129.3 kg General appearance: PRESENT: no acute distress, cooperative, disheveled, obese, well-developed Head exam: PRESENT: atraumatic, normocephalic Eye exam: PRESENT: conjunctiva pale, EOMI Mouth exam: PRESENT: dry mucosa, neck supple, tongue midline Neck exam: ABSENT: carotid bruit, JVD, lymphadenopathy, thyromegaly Respiratory exam: PRESENT: decreased breath sounds, prolonged expiratory phas, rhonchi, unlabored Cardiovascular exam: PRESENT: RRR, +S1, +S2 Pulses: PRESENT: normal radial pulses GI/Abdominal exam: PRESENT: normal bowel sounds, soft. ABSENT: distended, guarding, mass, organolmegaly, rebound, tenderness Rectal exam: PRESENT: deferred Gentrourinary exam: PRESENT: indwelling catheter Neurological exam: PRESENT: alert, awake Psychiatric exam: PRESENT: normal mood Skin exam: PRESENT: dry, warm Results Laboratory Results: 09/16/16 04:09 09/16/16 04:09 09/05/16 09/05/16 09/06/16 22:15 22:15 04:21 CK-MB (CK-2) 1.29 1.07 NT-Pro-B Natriuret Pep 3110 H 09/06/16 11:23 CK-MB (CK-2) 1.09 NT-Pro-B Natriuret Pep Impressions: Chest/Abdomen CTA 09/04/16 16:08 IMPRESSION: NO PULMONARY EMBOLI OR ACUTE INTRATHORACIC PROCESS IDENTIFIED. NO SIGNIFICANT CHANGE FROM PRIOR STUDIES. Guidance Fluoroscopy 09/09/16 00:00 IMPRESSION: SUCCESSFUL PLACEMENT OF A 5 FR DUAL LUMEN 48 CM PICC IN THE LEFT BASILIC VEIN. Interventional Vascular Procedure 09/09/16 00:00 IMPRESSION: SUCCESSFUL PLACEMENT OF A 5 FR DUAL LUMEN 48 CM PICC IN THE LEFT BASILIC VEIN. PICC Line Insertion 09/09/16 00:00 IMPRESSION: SUCCESSFUL PLACEMENT OF A 5 FR DUAL LUMEN 48 CM PICC IN THE LEFT BASILIC VEIN. Chest X-Ray 09/17/16 06:00 IMPRESSION: COPD. NO ACUTE RADIOGRAPHIC FINDING IN THE CHEST. Assessment & Plan - Diagnosis (1) Acute hypercapnic respiratory failure Is this a current diagnosis for this admission?: Yes (2) COPD (chronic obstructive pulmonary disease) Qualifiers: COPD type: COPD with acute exacerbation Qualified Code(s): J44.1 - Chronic obstructive pulmonary disease with (acute) exacerbation Is this a current diagnosis for this admission?: Yes
--- NOTE | 2016-09-19 20:52 | PDOC PROGRESS REPORT ---
Subjective Progress Note for:: 09/19/16 Subjective:: She complained of dysuria, She has E. coli UTI, she is on cefuroxime antibiotic , the bacteria is sensitive to the antibiotic Physical Exam Vital Signs: Temp Pulse Resp BP Pulse Ox 98.6 F 84 20 126/67 H 98 09/19/16 19:43 09/19/16 19:43 09/19/16 19:43 09/19/16 19:43 09/19/16 19:43 Intake & Output 09/18/16 09/19/16 09/20/16 06:59 06:59 06:59 Intake Total 2082 2778 20 Output Total 1300 2800 Balance 782 -22 20 Weight 131.4 kg 129.3 kg General appearance: PRESENT: no acute distress, well-developed, well-nourished Head exam: PRESENT: atraumatic, normocephalic Eye exam: PRESENT: conjunctiva pink, EOMI, PERRLA. ABSENT: scleral icterus Ear exam: PRESENT: normal external ear exam Mouth exam: PRESENT: moist, tongue midline Neck exam: PRESENT: full ROM. ABSENT: carotid bruit, JVD, lymphadenopathy, thyromegaly Respiratory exam: PRESENT: clear to auscultation rolf Cardiovascular exam: PRESENT: RRR, +S1, +S2. ABSENT: diastolic murmur, rubs, systolic murmur Pulses: PRESENT: normal dorsalis pedis pul, +2 pedal pulses bilateral Vascular exam: PRESENT: normal capillary refill GI/Abdominal exam: PRESENT: normal bowel sounds, soft. ABSENT: distended, guarding, mass, organolmegaly, rebound, tenderness Rectal exam: PRESENT: deferred Neurological exam: PRESENT: alert, awake, oriented to person, oriented to place , oriented to time, oriented to situation, CN II-XII grossly intact. ABSENT: motor sensory deficit Psychiatric exam: PRESENT: appropriate affect, normal mood. ABSENT: homicidal ideation, suicidal ideation Skin exam: PRESENT: dry, intact, warm. ABSENT: cyanosis, rash Results Laboratory Results: 09/16/16 04:09 09/16/16 04:09 09/05/16 09/05/16 09/06/16 22:15 22:15 04:21 CK-MB (CK-2) 1.29 1.07 NT-Pro-B Natriuret Pep 3110 H 09/06/16 11:23 CK-MB (CK-2) 1.09 NT-Pro-B Natriuret Pep Impressions: Chest/Abdomen CTA 09/04/16 16:08 IMPRESSION: NO PULMONARY EMBOLI OR ACUTE INTRATHORACIC PROCESS IDENTIFIED. NO SIGNIFICANT CHANGE FROM PRIOR STUDIES. Guidance Fluoroscopy 09/09/16 00:00 IMPRESSION: SUCCESSFUL PLACEMENT OF A 5 FR DUAL LUMEN 48 CM PICC IN THE LEFT BASILIC VEIN. Interventional Vascular Procedure 09/09/16 00:00 IMPRESSION: SUCCESSFUL PLACEMENT OF A 5 FR DUAL LUMEN 48 CM PICC IN THE LEFT BASILIC VEIN. PICC Line Insertion 09/09/16 00:00 IMPRESSION: SUCCESSFUL PLACEMENT OF A 5 FR DUAL LUMEN 48 CM PICC IN THE LEFT BASILIC VEIN. Chest X-Ray 09/17/16 06:00 IMPRESSION: COPD. NO ACUTE RADIOGRAPHIC FINDING IN THE CHEST. Assessment & Plan - Diagnosis (1) Acute hypercapnic respiratory failure Is this a current diagnosis for this admission?: Yes (2) Chronic obstructive pulmonary disease with acute exacerbation Is this a current diagnosis for this admission?: Yes (3) Physical deconditioning Is this a current diagnosis for this admission?: Yes (4) Respiratory distress Is this a current diagnosis for this admission?: Yes (5) Coronary artery disease Qualifiers: Coronary Disease-Associated Artery/Lesion type: [place] artery [place] vs. transplanted heart: [place] heart Associated angina: angina presence unspecified Qualified Code(s): I25.10 - Atherosclerotic heart disease of [place] coronary artery without angina pectoris Is this a current diagnosis for this admission?: Yes (6) Diabetes mellitus Qualifiers: Diabetes mellitus type: type 2 Diabetes mellitus complication status: with neurologic complications Diabetes mellitus complication detail: with polyneuropathy Diabetes mellitus detention insulin use: with detention use Qualified Code(s): E11.42 - Type 2 diabetes mellitus with diabetic polyneuropathy; Z79.4 - termite treater helper (current) use of insulin Is this a current diagnosis for this admission?: Yes (7) E. coli UTI Is this a current diagnosis for this admission?: Yes
[2016-09-19] MEDS: ATORVASTATIN CALCIUM 40 MG TABLET PO SCH (21:07)
[2016-09-19] MEDS: INSULIN GLARGINE,HUM.REC.ANLOG 300 UNIT/3 ML INSULN.PEN SUBCUT SCH (21:09)
[2016-09-20] MEDS: HYDROMORPHONE HCL INJ/PF 2 MG/ML AMPULE IV PRN ×5 (03:22→20:38)
[2016-09-20] MEDS: LANSOPRAZOLE 30 MG TAB.RAP.DR PO SCH (06:08)
[2016-09-20] MEDS: GABAPENTIN 300 MG CAPSULE PO SCH ×3 (06:09→22:49)
[2016-09-20] MEDS: PRAMIPEXOLE DI-HCL 0.25 MG TABLET PO SCH ×3 (06:09→22:50)
[2016-09-20] MEDS: METFORMIN HCL 500 MG TABLET PO SCH ×2 (07:51→16:27)
--- NOTE | 2016-09-20 08:18 | EKG REPORT ---
SEVERITY:- ABNORMAL ECG - SINUS RHYTHM PROBABLE LEFT ATRIAL ABNORMALITY LEFT BUNDLE BRANCH BLOCK : Confirmed by: Kg Small MD 20-Sep-2016 08:17:58
[2016-09-20] MEDS: PIOGLITAZONE HCL 15 MG TABLET PO SCH (09:43)
[2016-09-20] MEDS: FERROUS SULFATE 325 MG TABLET PO SCH (09:43)
[2016-09-20] MEDS: DULOXETINE HCL 30 MG CAPSULE.DR PO SCH (09:43)
[2016-09-20] MEDS: METOPROLOL TARTRATE 25 MG TABLET PO SCH ×2 (09:44→22:49)
[2016-09-20] MEDS: CLOPIDOGREL BISULFATE 75 MG TABLET PO SCH (09:44)
[2016-09-20] MEDS: SACUBITRIL/VALSARTAN 24 MG/26 MG TABLET PO SCH ×2 (09:44→22:50)
[2016-09-20] MEDS: PREDNISONE 20 MG TABLET PO SCH (09:44)
[2016-09-20] MEDS: CEFUROXIME 250 MG TABLET PO SCH (09:44)
[2016-09-20] MEDS: FLUTICASONE/SALMETEROL DISKUS 250-50 MCG/DOSE IH SCH ×2 (09:45→22:54)
[2016-09-20] MEDS: NORMAL SALINE 10 ML SDV (SCHEDULED) IV SCH ×2 (09:45→22:55)
[2016-09-20] MEDS: ENOXAPARIN SODIUM INJ 40 MG/0.4 ML DISP.SYRIN SUBCUT SCH (09:46)
[2016-09-20] MEDS: TIOTROPIUM BROMIDE DPI 5 CAP/KIT (18 MCG/CAP) IH SCH (10:44)
[2016-09-20] MEDS: INSULIN LISPRO 100 UNIT/ML 3 ML VIAL SUBCUT PRN ×3 (12:15→22:49)
--- NOTE | 2016-09-20 22:21 | PDOC PROGRESS REPORT ---
Subjective Progress Note for:: 09/20/16 Subjective:: She was seen by the bedside, she is to complain of urinary symptoms despite p.o. antibiotic, she is requesting IV antibiotic Physical Exam Vital Signs: Temp Pulse Resp BP Pulse Ox 99.1 F 78 18 124/62 97 09/20/16 16:15 09/20/16 19:00 09/20/16 16:15 09/20/16 16:15 09/20/16 16:15 Intake & Output 09/19/16 09/20/16 09/21/16 06:59 06:59 06:59 Intake Total 2778 1121 1705 Output Total 2800 1900 1600 Balance -22 -779 105 Weight 129.3 kg 127.9 kg General appearance: PRESENT: no acute distress Eye exam: PRESENT: PERRLA Respiratory exam: PRESENT: clear to auscultation rolf Cardiovascular exam: PRESENT: +S1, +S2 GI/Abdominal exam: PRESENT: soft Neurological exam: PRESENT: alert Results Laboratory Results: 09/16/16 04:09 09/16/16 04:09 09/05/16 09/05/16 09/06/16 22:15 22:15 04:21 CK-MB (CK-2) 1.29 1.07 NT-Pro-B Natriuret Pep 3110 H 09/06/16 11:23 CK-MB (CK-2) 1.09 NT-Pro-B Natriuret Pep Impressions: Chest/Abdomen CTA 09/04/16 16:08 IMPRESSION: NO PULMONARY EMBOLI OR ACUTE INTRATHORACIC PROCESS IDENTIFIED. NO SIGNIFICANT CHANGE FROM PRIOR STUDIES. Guidance Fluoroscopy 09/09/16 00:00 IMPRESSION: SUCCESSFUL PLACEMENT OF A 5 FR DUAL LUMEN 48 CM PICC IN THE LEFT BASILIC VEIN. Interventional Vascular Procedure 09/09/16 00:00 IMPRESSION: SUCCESSFUL PLACEMENT OF A 5 FR DUAL LUMEN 48 CM PICC IN THE LEFT BASILIC VEIN. PICC Line Insertion 09/09/16 00:00 IMPRESSION: SUCCESSFUL PLACEMENT OF A 5 FR DUAL LUMEN 48 CM PICC IN THE LEFT BASILIC VEIN. Chest X-Ray 09/17/16 06:00 IMPRESSION: COPD. NO ACUTE RADIOGRAPHIC FINDING IN THE CHEST. Assessment & Plan - Diagnosis (1) Acute hypercapnic respiratory failure Is this a current diagnosis for this admission?: Yes (2) Chronic obstructive pulmonary disease with acute exacerbation Is this a current diagnosis for this admission?: Yes (3) Physical deconditioning Is this a current diagnosis for this admission?: Yes (4) Respiratory distress Is this a current diagnosis for this admission?: Yes (5) Coronary artery disease Qualifiers: Coronary Disease-Associated Artery/Lesion type: [place] artery [place] vs. transplanted heart: [place] heart Associated angina: angina presence unspecified Qualified Code(s): I25.10 - Atherosclerotic heart disease of [place] coronary artery without angina pectoris Is this a current diagnosis for this admission?: Yes (6) Diabetes mellitus Qualifiers: Diabetes mellitus type: type 2 Diabetes mellitus complication status: with neurologic complications Diabetes mellitus complication detail: with polyneuropathy Diabetes mellitus terminal computer operator insulin use: with terminal computer operator use Qualified Code(s): E11.42 - Type 2 diabetes mellitus with diabetic polyneuropathy; Z79.4 - [facility] (current) use of insulin Is this a current diagnosis for this admission?: Yes (7) E. coli UTI Is this a current diagnosis for this admission?: Yes - Plan Summary Plan Summary: Start IV cefazolin
[2016-09-20] MEDS: CEFAZOLIN 1 GM/D5W RTU 1 GM/50 ML RTUPB IV SCH (22:48)
[2016-09-20] MEDS: INSULIN GLARGINE,HUM.REC.ANLOG 300 UNIT/3 ML INSULN.PEN SUBCUT SCH (22:48)
[2016-09-20] MEDS: ATORVASTATIN CALCIUM 40 MG TABLET PO SCH (22:49)
[2016-09-21 00:13] LABS: ABSOLUTE LYMPHOCYTES (AUTO) 0.5 10^3/uL (0.5-4.7); ABSOLUTE MONOCYTES (AUTO) 0.5 10^3/uL (0.1-1.4); ABSOLUTE NEUT (AUTO) 8.2 10^3/uL (1.7-8.2); BASOPHILS % (AUTO) 0.2 % (0-2); EOSINOPHILS % (AUTO) 0.2 % (0-6); HEMATOCRIT 33.2 % (36.0-47.0); HEMOGLOBIN 10.5 g/dL (12.0-15.5); HGB HCT DIFFERENCE -1.7; LYMPHOCYTES % (AUTO) 5.5 % (13-45); MEAN CORPUSCULAR HEMOGLOBIN 30.2 pg (27.0-33.4); MEAN CORPUSCULAR HGB CONC 31.7 g/dL (32.0-36.0); MEAN CORPUSCULAR VOLUME 95 fl (80-97); MONOCYTES % (AUTO) 5.1 % (3-13); RED BLOOD COUNT 3.49 10^6/uL (3.72-5.28); RED CELL DISTRIBUTION WIDTH 15.4 % (11.5-14.0); WHITE BLOOD COUNT 9.2 10^3/uL (4.0-10.5)
[2016-09-21 00:26] LABS: ALANINE AMINOTRANSFERASE 26 U/L (9-52); ALBUMIN 3.2 g/dL (3.5-5.0); ALKALINE PHOSPHATASE 58 U/L (38-126); ANION GAP 6 (5-19); ASPARTATE AMINO TRANSFERASE 12 U/L (14-36); BILIRUBIN,DIRECT 0.3 mg/dL (0.0-0.4); BILIRUBIN,TOTAL 0.3 mg/dL (0.2-1.3); BLOOD UREA NITROGEN 28 mg/dL (7-20); CALCIUM 8.6 mg/dL (8.4-10.2); CARBON DIOXIDE 37 mmol/L (22-30); CHLORIDE 92 mmol/L (98-107); CREATININE RESULT 0.61 mg/dL (0.52-1.25); GLUCOSE 228 mg/dL (75-110); SODIUM 135.4 mmol/L (137-145); TOTAL PROTEIN 5.6 g/dL (6.3-8.2)
[2016-09-21] MEDS: HYDROMORPHONE HCL INJ/PF 2 MG/ML AMPULE IV PRN ×6 (00:45→22:21)
[2016-09-21] MEDS: CEFAZOLIN 1 GM/D5W RTU 1 GM/50 ML RTUPB IV SCH ×4 (05:12→22:22)
[2016-09-21] MEDS: PRAMIPEXOLE DI-HCL 0.25 MG TABLET PO SCH ×3 (05:13→22:27)
[2016-09-21] MEDS: LANSOPRAZOLE 30 MG TAB.RAP.DR PO SCH (05:14)
[2016-09-21] MEDS: GABAPENTIN 300 MG CAPSULE PO SCH ×3 (05:14→22:26)
[2016-09-21 07:07] LABS: ABSOLUTE BASOPHILS # (AUTO) 0.1 10^3/uL (0.0-0.2); ABSOLUTE EOSINOPHILS # (AUTO) 0.1 10^3/uL (0.0-0.6); ABSOLUTE MONOCYTES (AUTO) 0.7 10^3/uL (0.1-1.4); ABSOLUTE NEUT (AUTO) 6.4 10^3/uL (1.7-8.2); BASOPHILS % (AUTO) 0.7 % (0-2); EOSINOPHILS % (AUTO) 1.1 % (0-6); HEMATOCRIT 32.2 % (36.0-47.0); HEMOGLOBIN 10.4 g/dL (12.0-15.5); LYMPHOCYTES % (AUTO) 11.6 % (13-45); MEAN CORPUSCULAR HEMOGLOBIN 30.8 pg (27.0-33.4); MEAN CORPUSCULAR HGB CONC 32.4 g/dL (32.0-36.0); MEAN CORPUSCULAR VOLUME 95 fl (80-97); MONOCYTES % (AUTO) 8.4 % (3-13); RED BLOOD COUNT 3.39 10^6/uL (3.72-5.28); RED CELL DISTRIBUTION WIDTH 15.6 % (11.5-14.0); SEGMENTED NEUTROPHILS % (AUTO) 78.2 % (42-78); WHITE BLOOD COUNT 8.2 10^3/uL (4.0-10.5)
[2016-09-21 07:16] LABS: ALANINE AMINOTRANSFERASE 25 U/L (9-52); ALBUMIN 3.1 g/dL (3.5-5.0); ALKALINE PHOSPHATASE 59 U/L (38-126); ANION GAP 5 (5-19); ASPARTATE AMINO TRANSFERASE 11 U/L (14-36); BILIRUBIN,DIRECT 0.3 mg/dL (0.0-0.4); BILIRUBIN,TOTAL 0.3 mg/dL (0.2-1.3); BLOOD UREA NITROGEN 28 mg/dL (7-20); CALCIUM 8.4 mg/dL (8.4-10.2); CARBON DIOXIDE 36 mmol/L (22-30); CHLORIDE 95 mmol/L (98-107); CREATININE RESULT 0.66 mg/dL (0.52-1.25); GLUCOSE 171 mg/dL (75-110); POTASSIUM 4.8 mmol/L (3.6-5.0); SODIUM 136.1 mmol/L (137-145); TOTAL PROTEIN 5.2 g/dL (6.3-8.2)
[2016-09-21] MEDS: METFORMIN HCL 500 MG TABLET PO SCH ×2 (09:13→16:42)
[2016-09-21] MEDS: METOPROLOL TARTRATE 25 MG TABLET PO SCH ×2 (09:14→22:27)
[2016-09-21] MEDS: CLOPIDOGREL BISULFATE 75 MG TABLET PO SCH (09:15)
[2016-09-21] MEDS: PREDNISONE 20 MG TABLET PO SCH (09:15)
[2016-09-21] MEDS: DULOXETINE HCL 30 MG CAPSULE.DR PO SCH (09:15)
[2016-09-21] MEDS: FERROUS SULFATE 325 MG TABLET PO SCH (09:15)
[2016-09-21] MEDS: PIOGLITAZONE HCL 15 MG TABLET PO SCH (09:16)
[2016-09-21] MEDS: SACUBITRIL/VALSARTAN 24 MG/26 MG TABLET PO SCH ×2 (09:16→22:26)
[2016-09-21] MEDS: TIOTROPIUM BROMIDE DPI 5 CAP/KIT (18 MCG/CAP) IH SCH (09:17)
[2016-09-21] MEDS: FLUTICASONE/SALMETEROL DISKUS 250-50 MCG/DOSE IH SCH ×2 (09:17→22:26)
[2016-09-21] MEDS: ENOXAPARIN SODIUM INJ 40 MG/0.4 ML DISP.SYRIN SUBCUT SCH (09:19)
[2016-09-21] MEDS: NORMAL SALINE 10 ML SDV (SCHEDULED) IV SCH (09:19)
[2016-09-21] MEDS: INSULIN LISPRO 100 UNIT/ML 3 ML VIAL SUBCUT PRN ×2 (16:41→22:28)
--- NOTE | 2016-09-21 16:50 | PDOC PROGRESS REPORT ---
Subjective Progress Note for:: 09/21/16 Subjective:: Patient was admitted for acute COPD exacerbation, she complained of dysuria, yesterday she was started on IV cefazolin.. She will be taken off prednisone today, she be discharged home tomorrow Physical Exam Vital Signs: Temp Pulse Resp BP Pulse Ox 98.5 F 85 22 H 112/55 L 99 09/21/16 07:54 09/21/16 14:00 09/21/16 07:54 09/21/16 07:54 09/21/16 07:54 Intake & Output 09/20/16 09/21/16 09/22/16 06:59 06:59 06:59 Intake Total 1121 2282 87 Output Total 1900 2000 600 Balance -779 282 -513 Weight 127.9 kg 127.5 kg General appearance: PRESENT: no acute distress Eye exam: PRESENT: PERRLA Respiratory exam: PRESENT: clear to auscultation rolf Cardiovascular exam: PRESENT: +S1, +S2 GI/Abdominal exam: PRESENT: soft Neurological exam: PRESENT: alert, CN II-XII grossly intact Results Laboratory Results: 09/21/16 06:55 09/21/16 06:55 09/20/16 09/20/16 09/21/16 23:50 23:50 06:55 WBC 9.2 8.2 RBC 3.49 L 3.39 L Hgb 10.5 L 10.4 L Hct 33.2 L 32.2 L MCV 95 95 MCH 30.2 30.8 MCHC 31.7 L 32.4 RDW 15.4 H 15.6 H Plt Count 242 245 Seg Neutrophils % 89.0 H 78.2 H Lymphocytes % 5.5 L 11.6 L Monocytes % 5.1 8.4 Eosinophils % 0.2 1.1 Basophils % 0.2 0.7 Absolute Neutrophils 8.2 6.4 Absolute Lymphocytes 0.5 1.0 Absolute Monocytes 0.5 0.7 Absolute Eosinophils 0.0 0.1 Absolute Basophils 0.0 0.1 Sodium 135.4 L Potassium 5.0 Chloride 92 L Carbon Dioxide 37 H Anion Gap 6 BUN 28 H Creatinine 0.61 Est GFR ( Amer) > 60 Est GFR (Non-Af Amer) > 60 Glucose 228 H Calcium 8.6 Total Bilirubin 0.3 AST 12 L ALT 26 Alkaline Phosphatase 58 Total Protein 5.6 L Albumin 3.2 L 09/21/16 06:55 WBC RBC Hgb Hct MCV MCH MCHC RDW Plt Count Seg Neutrophils % Lymphocytes % Monocytes % Eosinophils % Basophils % Absolute Neutrophils Absolute Lymphocytes Absolute Monocytes Absolute Eosinophils Absolute Basophils Sodium 136.1 L Potassium 4.8 Chloride 95 L Carbon Dioxide 36 H Anion Gap 5 BUN 28 H Creatinine 0.66 Est GFR ( Amer) > 60 Est GFR (Non-Af Amer) > 60 Glucose 171 H Calcium 8.4 Total Bilirubin 0.3 AST 11 L ALT 25 Alkaline Phosphatase 59 Total Protein 5.2 L Albumin 3.1 L 09/05/16 09/05/16 09/06/16 22:15 22:15 04:21 CK-MB (CK-2) 1.29 1.07 NT-Pro-B Natriuret Pep 3110 H 09/06/16 11:23 CK-MB (CK-2) 1.09 NT-Pro-B Natriuret Pep Impressions: Chest/Abdomen CTA 09/04/16 16:08 IMPRESSION: NO PULMONARY EMBOLI OR ACUTE INTRATHORACIC PROCESS IDENTIFIED. NO SIGNIFICANT CHANGE FROM PRIOR STUDIES. Guidance Fluoroscopy 09/09/16 00:00 IMPRESSION: SUCCESSFUL PLACEMENT OF A 5 FR DUAL LUMEN 48 CM PICC IN THE LEFT BASILIC VEIN. Interventional Vascular Procedure 09/09/16 00:00 IMPRESSION: SUCCESSFUL PLACEMENT OF A 5 FR DUAL LUMEN 48 CM PICC IN THE LEFT BASILIC VEIN. PICC Line Insertion 09/09/16 00:00 IMPRESSION: SUCCESSFUL PLACEMENT OF A 5 FR DUAL LUMEN 48 CM PICC IN THE LEFT BASILIC VEIN. Chest X-Ray 09/17/16 06:00 IMPRESSION: COPD. NO ACUTE RADIOGRAPHIC FINDING IN THE CHEST. Assessment & Plan - Diagnosis (1) Acute hypercapnic respiratory failure Is this a current diagnosis for this admission?: Yes (2) Chronic obstructive pulmonary disease with acute exacerbation Is this a current diagnosis for this admission?: Yes (3) Physical deconditioning Is this a current diagnosis for this admission?: Yes (4) Respiratory distress Is this a current diagnosis for this admission?: Yes (5) Coronary artery disease Qualifiers: Coronary Disease-Associated Artery/Lesion type: [place] artery [place] vs. transplanted heart: [place] heart Associated angina: angina presence unspecified Qualified Code(s): I25.10 - Atherosclerotic heart disease of [place] coronary artery without angina pectoris Is this a current diagnosis for this admission?: Yes (6) Diabetes mellitus Qualifiers: Diabetes mellitus type: type 2 Diabetes mellitus complication status: with neurologic complications Diabetes mellitus complication detail: with polyneuropathy Diabetes mellitus assisted insulin use: with [place] use Qualified Code(s): E11.42 - Type 2 diabetes mellitus with diabetic polyneuropathy; Z79.4 - USP (current) use of insulin Is this a current diagnosis for this admission?: Yes (7) E. coli UTI Is this a current diagnosis for this admission?: Yes
[2016-09-21] MEDS ORDERED: ZINC OXIDE 20% OINTMENT 28.35 GM TP PRN (17:01)
[2016-09-21] MEDS ORDERED: NYSTATIN CREAM 15 GM ONE (18:39)
[2016-09-21] MEDS ORDERED: ZINC OXIDE 20% OINTMENT 28.35 GM ONE (18:40)
--- NOTE | 2016-09-21 18:47 | PDOC PROGRESS REPORT ---
Subjective Progress Note for:: 09/21/16 Subjective:: i;m ok Physical Exam Vital Signs: Temp Pulse Resp BP Pulse Ox 98.6 F 85 18 110/51 L 100 09/21/16 11:56 09/21/16 14:00 09/21/16 11:56 09/21/16 11:56 09/21/16 11:56 Intake & Output 09/20/16 09/21/16 09/22/16 06:59 06:59 06:59 Intake Total 1121 2282 1152 Output Total 1901999 1850 Balance -779 282 -698 Weight 127.9 kg 127.5 kg General appearance: PRESENT: no acute distress, cooperative, disheveled, morbidly obese Head exam: PRESENT: atraumatic, normocephalic Eye exam: PRESENT: conjunctiva pale, EOMI Mouth exam: PRESENT: dry mucosa, neck supple Neck exam: ABSENT: carotid bruit, JVD, lymphadenopathy, thyromegaly Respiratory exam: PRESENT: decreased breath sounds, prolonged expiratory phas, rhonchi, symmetrical Cardiovascular exam: PRESENT: RRR, +S1, +S2 Pulses: PRESENT: normal radial pulses GI/Abdominal exam: PRESENT: normal bowel sounds, soft. ABSENT: distended, guarding, mass, organolmegaly, rebound, tenderness Rectal exam: PRESENT: deferred Extremities exam: PRESENT: +1 edema Neurological exam: PRESENT: alert Psychiatric exam: PRESENT: normal mood Skin exam: PRESENT: dry, warm Results Laboratory Results: 09/21/16 06:55 09/21/16 06:55 09/20/16 09/20/16 09/21/16 23:50 23:50 06:55 WBC 9.2 8.2 RBC 3.49 L 3.39 L Hgb 10.5 L 10.4 L Hct 33.2 L 32.2 L MCV 95 95 MCH 30.2 30.8 MCHC 31.7 L 32.4 RDW 15.4 H 15.6 H Plt Count 242 245 Seg Neutrophils % 89.0 H 78.2 H Lymphocytes % 5.5 L 11.6 L Monocytes % 5.1 8.4 Eosinophils % 0.2 1.1 Basophils % 0.2 0.7 Absolute Neutrophils 8.2 6.4 Absolute Lymphocytes 0.5 1.0 Absolute Monocytes 0.5 0.7 Absolute Eosinophils 0.0 0.1 Absolute Basophils 0.0 0.1 Sodium 135.4 L Potassium 5.0 Chloride 92 L Carbon Dioxide 37 H Anion Gap 6 BUN 28 H Creatinine 0.61 Est GFR ( Amer) > 60 Est GFR (Non-Af Amer) > 60 Glucose 228 H Calcium 8.6 Total Bilirubin 0.3 AST 12 L ALT 26 Alkaline Phosphatase 58 Total Protein 5.6 L Albumin 3.2 L 09/21/16 06:55 WBC RBC Hgb Hct MCV MCH MCHC RDW Plt Count Seg Neutrophils % Lymphocytes % Monocytes % Eosinophils % Basophils % Absolute Neutrophils Absolute Lymphocytes Absolute Monocytes Absolute Eosinophils Absolute Basophils Sodium 136.1 L Potassium 4.8 Chloride 95 L Carbon Dioxide 36 H Anion Gap 5 BUN 28 H Creatinine 0.66 Est GFR ( Amer) > 60 Est GFR (Non-Af Amer) > 60 Glucose 171 H Calcium 8.4 Total Bilirubin 0.3 AST 11 L ALT 25 Alkaline Phosphatase 59 Total Protein 5.2 L Albumin 3.1 L 09/05/16 09/05/16 09/06/16 22:15 22:15 04:21 CK-MB (CK-2) 1.29 1.07 NT-Pro-B Natriuret Pep 3110 H 09/06/16 11:23 CK-MB (CK-2) 1.09 NT-Pro-B Natriuret Pep Impressions: Chest/Abdomen CTA 09/04/16 16:08 IMPRESSION: NO PULMONARY EMBOLI OR ACUTE INTRATHORACIC PROCESS IDENTIFIED. NO SIGNIFICANT CHANGE FROM PRIOR STUDIES. Guidance Fluoroscopy 09/09/16 00:00 IMPRESSION: SUCCESSFUL PLACEMENT OF A 5 FR DUAL LUMEN 48 CM PICC IN THE LEFT BASILIC VEIN. Interventional Vascular Procedure 09/09/16 00:00 IMPRESSION: SUCCESSFUL PLACEMENT OF A 5 FR DUAL LUMEN 48 CM PICC IN THE LEFT BASILIC VEIN. PICC Line Insertion 09/09/16 00:00 IMPRESSION: SUCCESSFUL PLACEMENT OF A 5 FR DUAL LUMEN 48 CM PICC IN THE LEFT BASILIC VEIN. Chest X-Ray 09/17/16 06:00 IMPRESSION: COPD. NO ACUTE RADIOGRAPHIC FINDING IN THE CHEST. Assessment & Plan - Diagnosis (1) Acute hypercapnic respiratory failure Is this a current diagnosis for this admission?: Yes (2) COPD (chronic obstructive pulmonary disease) Qualifiers: COPD type: COPD with acute exacerbation Qualified Code(s): J44.1 - Chronic obstructive pulmonary disease with (acute) exacerbation Is this a current diagnosis for this admission?: Yes
[2016-09-21] MEDS: NYSTATIN CREAM 15 GM TP SCH (18:52)
[2016-09-21] MEDS ORDERED: TRAMADOL HCL 50 MG TABLET PO PRN (19:06)
[2016-09-21] MEDS: ATORVASTATIN CALCIUM 40 MG TABLET PO SCH (22:27)
[2016-09-21] MEDS: INSULIN GLARGINE,HUM.REC.ANLOG 300 UNIT/3 ML INSULN.PEN SUBCUT SCH (22:28)
[2016-09-22] MEDS: NORMAL SALINE 10 ML SDV (SCHEDULED) IV SCH ×3 (00:17→21:30)
[2016-09-22] MEDS: HYDROMORPHONE HCL INJ/PF 2 MG/ML AMPULE IV PRN ×6 (02:33→23:23)
[2016-09-22] MEDS: CEFAZOLIN 1 GM/D5W RTU 1 GM/50 ML RTUPB IV SCH ×4 (04:39→20:42)
[2016-09-22] MEDS: PRAMIPEXOLE DI-HCL 0.25 MG TABLET PO SCH ×3 (06:35→21:30)
[2016-09-22] MEDS: GABAPENTIN 300 MG CAPSULE PO SCH ×3 (06:35→21:28)
[2016-09-22] MEDS: LANSOPRAZOLE 30 MG TAB.RAP.DR PO SCH (06:35)
[2016-09-22] MEDS: METFORMIN HCL 500 MG TABLET PO SCH ×2 (09:10→16:16)
[2016-09-22] MEDS: DULOXETINE HCL 30 MG CAPSULE.DR PO SCH (09:11)
[2016-09-22] MEDS: PIOGLITAZONE HCL 15 MG TABLET PO SCH (09:11)
[2016-09-22] MEDS: CLOPIDOGREL BISULFATE 75 MG TABLET PO SCH (09:11)
[2016-09-22] MEDS: FERROUS SULFATE 325 MG TABLET PO SCH (09:11)
[2016-09-22] MEDS: METOPROLOL TARTRATE 25 MG TABLET PO SCH ×2 (09:12→21:29)
[2016-09-22] MEDS: SACUBITRIL/VALSARTAN 24 MG/26 MG TABLET PO SCH ×2 (09:13→21:30)
[2016-09-22] MEDS: FLUTICASONE/SALMETEROL DISKUS 250-50 MCG/DOSE IH SCH ×2 (09:13→21:29)
[2016-09-22] MEDS: TIOTROPIUM BROMIDE DPI 5 CAP/KIT (18 MCG/CAP) IH SCH (09:13)
[2016-09-22] MEDS: NYSTATIN CREAM 15 GM TP SCH ×2 (09:14→17:17)
[2016-09-22] MEDS: ENOXAPARIN SODIUM INJ 40 MG/0.4 ML DISP.SYRIN SUBCUT SCH (09:17)
[2016-09-22] MEDS: INSULIN LISPRO 100 UNIT/ML 3 ML VIAL SUBCUT PRN (12:00)
--- NOTE | 2016-09-22 16:29 | PDOC DISCHARGE SUMMARY ---
General - Admit/Disc Date/PCP Admission Date/Primary Care Provider: 09/04/16 21:17 TANISHA POLLARD MD Discharge Date: 09/22/16 - Discharge Diagnosis (1) Acute hypercapnic respiratory failure Is this a current diagnosis for this admission?: Yes (2) Chronic obstructive pulmonary disease with acute exacerbation Is this a current diagnosis for this admission?: Yes (3) Physical deconditioning Is this a current diagnosis for this admission?: Yes (4) Respiratory distress Is this a current diagnosis for this admission?: Yes (5) Coronary artery disease Is this a current diagnosis for this admission?: Yes (6) Diabetes mellitus Is this a current diagnosis for this admission?: Yes (7) E. coli UTI Is this a current diagnosis for this admission?: Yes - Additional Information Discharge Diet: Diabetic Discharge Activity: Activity As Tolerated Home Medications: Albuterol Sulfate [Proair HFA] 2 puff IH Q4HP PRN 08/23/16 Atorvastatin Calcium [Lipitor 40 mg Tablet] 40 mg PO QHS 08/23/16 Ferrous Sulfate [Iron] 325 mg PO DAILY 08/23/16 Fluticasone/Salmeterol [Advair 250-50 Diskus 14 Dose/Diskus] 1 inh IH Q12 Gabapentin [Neurontin 300 mg Capsule] 900 mg PO Q8 08/23/16 Metformin HCl [Metformin HCl ER] 500 mg PO QPM 08/23/16 Metoprolol Tartrate [Lopressor 25 mg Tablet] 12.5 mg PO Q12 08/23/16 Pioglitazone HCl [Actos] 45 mg PO DAILY 08/23/16 Pramipexole Di-HCl [Mirapex] 0.125 mg PO Q8 08/23/16 Sacubitril/Valsartan [Entresto 24 mg-26 mg Tablet] 1 tab PO Q12 08/23/16 Tiotropium Leonardo [Spiriva Handihaler 5 Cap/Kit (18 Mcg/Cap)] 1 puff IH DAILY 08/23/16 Tramadol HCl/Acetaminophen [Ultracet Tablet] 1 tab PO Q6HP PRN 08/23/16 Clopidogrel Bisulfate [Clopidogrel] 75 mg PO DAILY 09/04/16 Duloxetine HCl [Cymbalta] 60 mg PO DAILY 09/04/16 Omeprazole 40 mg PO DAILY 09/04/16 Simethicone [Gas Relief 80] 80 mg PO QID PRN 09/04/16 Cefuroxime Axetil [Ceftin 500 mg Tablet] 1 tab PO BID #14 tablet 09/22/16 History of Present Illness History of Present Illness: TORREY MARKS is a 65 year old female, She has very severe chronic obstructive pulmonary disease, she was just discharged from this hospital on at that time she was admitted for acute respiratory distress due to COPD. She presented to the emergency room with acute respiratory distress, and in the emergency room a blood gas was drawn, pH was 7.30, PCO2 71. She had a stat CTA chest done in the emergency room it was negative for pulmonary embolism , there was no acute infiltrates or consolidation to suggest pneumonia. Patient breathing was supported with noninvasive positive pressure ventilation BiPAP and subsequently hospital admission was advised by the emergency room physician. Hospital Course Hospital Course: Patient was admitted for the management of acute hypercapnic respiratory failure due to acute exacerbation of chronic obstructive pulmonary disease. She was treated with noninvasive positive pressure ventilation, BiPAP, IV Solu- Medrol, IV antibiotic, bronchodilators. She was seen by pulmonary Dr. Lake. She also had E. coli UTI resistant to fluoroquinolones including Cipro and Levaquin. Physical Exam Vital Signs: Temp Pulse Resp BP Pulse Ox 98.4 F 84 16 123/66 94 09/22/16 07:59 09/22/16 07:59 09/22/16 07:59 09/22/16 07:59 09/22/16 07:59 Intake & Output 09/21/16 09/22/16 09/23/16 06:59 06:59 06:59 Intake Total 2282 1852 Output Total 1999 2149 Balance 282 -298 Weight 127.5 kg 127 kg General appearance: PRESENT: no acute distress, well-developed, well-nourished Head exam: PRESENT: atraumatic, normocephalic Eye exam: PRESENT: conjunctiva pink, EOMI, PERRLA Ear exam: PRESENT: normal external ear exam Mouth exam: PRESENT: moist, tongue midline Neck exam: PRESENT: full ROM Cardiovascular exam: PRESENT: RRR, +S1, +S2 Pulses: PRESENT: normal dorsalis pedis pul, +2 pedal pulses bilateral Vascular exam: PRESENT: normal capillary refill GI/Abdominal exam: PRESENT: normal bowel sounds, soft Rectal exam: PRESENT: deferred Neurological exam: PRESENT: alert, awake, oriented to person, oriented to place , oriented to time, oriented to situation, CN II-XII grossly intact Psychiatric exam: PRESENT: appropriate affect, normal mood Skin exam: PRESENT: dry, intact, warm Results Laboratory Results: 09/21/16 06:55 09/21/16 06:55 09/05/16 09/05/16 09/06/16 22:15 22:15 04:21 CK-MB (CK-2) 1.29 1.07 NT-Pro-B Natriuret Pep 3110 H 09/06/16 11:23 CK-MB (CK-2) 1.09 NT-Pro-B Natriuret Pep Impressions: Chest/Abdomen CTA 09/04/16 16:08 IMPRESSION: NO PULMONARY EMBOLI OR ACUTE INTRATHORACIC PROCESS IDENTIFIED. NO SIGNIFICANT CHANGE FROM PRIOR STUDIES. Guidance Fluoroscopy 09/09/16 00:00 IMPRESSION: SUCCESSFUL PLACEMENT OF A 5 FR DUAL LUMEN 48 CM PICC IN THE LEFT BASILIC VEIN. Interventional Vascular Procedure 09/09/16 00:00 IMPRESSION: SUCCESSFUL PLACEMENT OF A 5 FR DUAL LUMEN 48 CM PICC IN THE LEFT BASILIC VEIN. PICC Line Insertion 09/09/16 00:00 IMPRESSION: SUCCESSFUL PLACEMENT OF A 5 FR DUAL LUMEN 48 CM PICC IN THE LEFT BASILIC VEIN. Chest X-Ray 09/17/16 06:00 IMPRESSION: COPD. NO ACUTE RADIOGRAPHIC FINDING IN THE CHEST.
[2016-09-22] MEDS: ATORVASTATIN CALCIUM 40 MG TABLET PO SCH (21:28)
[2016-09-22] MEDS: INSULIN GLARGINE,HUM.REC.ANLOG 300 UNIT/3 ML INSULN.PEN SUBCUT SCH (21:31)
[2016-09-23] MEDS: HYDROMORPHONE HCL INJ/PF 2 MG/ML AMPULE IV PRN ×3 (03:17→11:40)
[2016-09-23] MEDS: CEFAZOLIN 1 GM/D5W RTU 1 GM/50 ML RTUPB IV SCH ×3 (03:19→14:27)
[2016-09-23] MEDS: LANSOPRAZOLE 30 MG TAB.RAP.DR PO SCH (05:44)
[2016-09-23] MEDS: GABAPENTIN 300 MG CAPSULE PO SCH (05:44)
[2016-09-23] MEDS: PRAMIPEXOLE DI-HCL 0.25 MG TABLET PO SCH (05:45)
--- NOTE | 2016-09-23 10:51 | PDOC PROGRESS REPORT ---
Subjective Progress Note for:: 09/23/16 Subjective:: I am going home today Physical Exam Vital Signs: Temp Pulse Resp BP Pulse Ox 99.6 F 88 16 112/62 99 09/23/16 04:12 09/23/16 07:00 09/23/16 04:12 09/23/16 04:12 09/23/16 04:12 Intake & Output 09/22/16 09/23/16 09/24/16 06:59 06:59 06:59 Intake Total 1852 2131 Output Total 2150 2100 Balance -298 31 Weight 127 kg 127.2 kg General appearance: PRESENT: no acute distress, cooperative, disheveled, morbidly obese, well-developed Head exam: PRESENT: atraumatic, normocephalic Eye exam: PRESENT: conjunctiva pale, EOMI Mouth exam: PRESENT: dry mucosa, neck supple Neck exam: ABSENT: carotid bruit, JVD, lymphadenopathy, thyromegaly Respiratory exam: PRESENT: decreased breath sounds, prolonged expiratory phas, rhonchi, symmetrical, unlabored Cardiovascular exam: PRESENT: RRR, +S1, +S2 Pulses: PRESENT: normal radial pulses GI/Abdominal exam: PRESENT: normal bowel sounds, soft. ABSENT: distended, guarding, mass, organolmegaly, rebound, tenderness Rectal exam: PRESENT: deferred Extremities exam: PRESENT: +1 edema Neurological exam: PRESENT: alert, awake Psychiatric exam: PRESENT: normal mood Skin exam: PRESENT: dry, warm Results Laboratory Results: 09/21/16 06:55 09/21/16 06:55 09/05/16 09/05/16 09/06/16 22:15 22:15 04:21 CK-MB (CK-2) 1.29 1.07 NT-Pro-B Natriuret Pep 3110 H 09/06/16 11:23 CK-MB (CK-2) 1.09 NT-Pro-B Natriuret Pep Impressions: Chest/Abdomen CTA 09/04/16 16:08 IMPRESSION: NO PULMONARY EMBOLI OR ACUTE INTRATHORACIC PROCESS IDENTIFIED. NO SIGNIFICANT CHANGE FROM PRIOR STUDIES. Guidance Fluoroscopy 09/09/16 00:00 IMPRESSION: SUCCESSFUL PLACEMENT OF A 5 FR DUAL LUMEN 48 CM PICC IN THE LEFT BASILIC VEIN. Interventional Vascular Procedure 09/09/16 00:00 IMPRESSION: SUCCESSFUL PLACEMENT OF A 5 FR DUAL LUMEN 48 CM PICC IN THE LEFT BASILIC VEIN. PICC Line Insertion 09/09/16 00:00 IMPRESSION: SUCCESSFUL PLACEMENT OF A 5 FR DUAL LUMEN 48 CM PICC IN THE LEFT BASILIC VEIN. Chest X-Ray 09/17/16 06:00 IMPRESSION: COPD. NO ACUTE RADIOGRAPHIC FINDING IN THE CHEST. Assessment & Plan - Diagnosis (1) Acute hypercapnic respiratory failure Is this a current diagnosis for this admission?: No (2) COPD (chronic obstructive pulmonary disease) Qualifiers: COPD type: COPD with acute exacerbation Qualified Code(s): J44.1 - Chronic obstructive pulmonary disease with (acute) exacerbation Is this a current diagnosis for this admission?: YesPlan: Generic Name Dose Route Start Last Admin Trade Name Freq PRN Reason Stop Dose Admin Tiotropium [place] 1 cap 09/05/16 10:00 09/16/16 09:01 Spiriva Handihaler 5 Cap/Kit (18 Mcg/Cap) 10/05/16 09:59 1 cap DAILY JONES Albuterol 2 puff 09/05/16 07:41 09/15/16 09:35 Proair Hfa Inhalation Aerosol 8.5 Gm Mdi 10/05/16 07:40 2 puff Q4HP PRN SHORTNESS OF BREATH Albuterol/Ipratropium 3 ml 09/07/16 11:28 09/08/16 14:22 Duoneb 3 Ml Ampul NEB 10/07/16 11:27 3 ml RTQ3HP PRN SHORTNESS OF BREATH Fluticasone/Salmeterol 1 inh 09/04/16 22:00 09/16/16 09:00 Advair 250-50 Diskus 14 Dose/Diskus 10/04/16 21:59 1 inh Q12 JONES Consider discontinuation of the DuoNeb this is somewhat redundant with Spiriva and Advair (3) Acute and chronic respiratory failure with hypercapnia Is this a current diagnosis for this admission?: YesPlan: The above patient has failed BiPAP. This patient would benefit from noninvasive mechanical ventilation via the trilogy AVAPS/AE and faster responding AVAPS rates. The trilogy is able to provide a target tidal volume and also adjusting the EPAP pressures to maintain a patent airway as well as an oral backup rate this machine will help improve PaCO2 levels. The severity of the patient's condition will lead to future hospitalizations and readmissions as well as life-threatening situations without the use of this device trilogy home vent needed for hypercapnic respiratory failure. Family medical to follow for trilogy set up.
[2016-09-23] MEDS: INSULIN LISPRO 100 UNIT/ML 3 ML VIAL SUBCUT PRN (10:58)
[2016-09-23] MEDS: METFORMIN HCL 500 MG TABLET PO SCH (11:00)
[2016-09-23] MEDS: CLOPIDOGREL BISULFATE 75 MG TABLET PO SCH (11:00)
[2016-09-23] MEDS: PIOGLITAZONE HCL 15 MG TABLET PO SCH (11:00)
[2016-09-23] MEDS: DULOXETINE HCL 30 MG CAPSULE.DR PO SCH (11:01)
[2016-09-23] MEDS: FERROUS SULFATE 325 MG TABLET PO SCH (11:01)
[2016-09-23] MEDS: ENOXAPARIN SODIUM INJ 40 MG/0.4 ML DISP.SYRIN SUBCUT SCH (11:02)
[2016-09-23] MEDS: SACUBITRIL/VALSARTAN 24 MG/26 MG TABLET PO SCH (11:03)
[2016-09-23] MEDS: TIOTROPIUM BROMIDE DPI 5 CAP/KIT (18 MCG/CAP) IH SCH (11:04)
[2016-09-23] MEDS: METOPROLOL TARTRATE 25 MG TABLET PO SCH (11:04)
[2016-09-23] MEDS: FLUTICASONE/SALMETEROL DISKUS 250-50 MCG/DOSE IH SCH (11:05)
[2016-09-23] MEDS: NYSTATIN CREAM 15 GM TP SCH (11:07)
[2016-09-23] MEDS: NORMAL SALINE 10 ML SDV (SCHEDULED) IV SCH (11:07)
[2016-09-23 12:04] VITALS: BP 122/59
[2016-09-23] MEDS ORDERED: ONDANSETRON 4 MG TAB.RAPDIS ONE (14:04)
[2016-09-23] MEDS ORDERED: ONDANSETRON 4 MG TAB.RAPDIS PO ONE (15:00)
== END 2016-09-23 16:30 | disposition home or self-care (01) | DRG 189 ==
LOC: ER 14:13 → UNDOADMIN 16:15 → EH 16:15 → 3S 19:01 → EH 19:01 → 3S 21:17
PROVIDERS: ADMIT Internal Medicine; ATTEND Internal Medicine
PROC: 5A09357 Assistance with Respiratory Ventilation, Less than 24 Consecutive Hours, Continuous Positive Airway Pressure (ICD-10-PCS; principal; 2016-09-04)
PROC: 02HV33Z Insertion of Infusion Device into Superior Vena Cava, Percutaneous Approach (ICD-10-PCS; 2016-09-09)
PROC: B5181ZA Fluoroscopy of Superior Vena Cava using Low Osmolar Contrast, Guidance (ICD-10-PCS; 2016-09-09)
PROC: B548ZZA Ultrasonography of Superior Vena Cava, Guidance (ICD-10-PCS; 2016-09-09)
DX: J96.02 Acute respiratory failure with hypercapnia (principal); J44.1 Chronic obstructive pulmonary disease with (acute) exacerbation; N39.0 Urinary tract infection, site not specified; B96.20 Unspecified Escherichia coli [E. coli] as the cause of diseases classified elsewhere; I25.10 Atherosclerotic heart disease of native coronary artery without angina pectoris; E11.42 Type 2 diabetes mellitus with diabetic polyneuropathy; I50.9 Heart failure, unspecified; I73.9 Peripheral vascular disease, unspecified; G43.909 Migraine, unspecified, not intractable, without status migrainosus; M19.90 Unspecified osteoarthritis, unspecified site; M79.7 Fibromyalgia; Z79.899 Other long term (current) drug therapy; Z79.4 Long term (current) use of insulin; Z86.14 Personal history of Methicillin resistant Staphylococcus aureus infection; Z90.49 Acquired absence of other specified parts of digestive tract; Z90.710 Acquired absence of both cervix and uterus; Z95.5 Presence of coronary angioplasty implant and graft; Z87.891 Personal history of nicotine dependence; Z88.8 Allergy status to other drugs, medicaments and biological substances
CPT/HCPCS: 36415; 36569; 71010; 71020; 71275; 76937; 77001; 80048; 80053; 80061; 80307; 81001; 82140; 82150; 82553; 82803; 82962; 83036; 83605; 83690; 83735; 83880; 84100; 84439; 84443; 84484; 85025; 85610; 85730; 87040; 87077; 87086; 87088; 87186; 93005; 93010; 94640; 94660; 94667; 99291; J0690; J1170; J1642; J1650; J1815; J1940; J1956; J2270; J2405; J2930; J3490; J7512; J7620; S0119

== ENCOUNTER 2016-09-28 00:13 | Emergency (ER) | payer MEDICAID ==
--- NOTE | 2016-09-28 00:30 | ER Document Report ---
ED Respiratory Problem <MORALES VASQUEZ - Last Filed: 09/28/16 03:25> - General Mode of Arrival: Medic Information source: Patient TRAVEL OUTSIDE OF THE [place]. IN LAST 30 DAYS: No <BIBICHRISTELPRINCESS - Last Filed: 09/28/16 03:56> <FANTASMANELSONJOAQUÍNSHEREEN - Last Filed: 09/29/16 16:20> - General Chief Complaint: Respiratory Distress Stated Complaint: DIFFICULTY BREATHING Notes: Patient is a 65-year-old female who presents to the emergency department today in moderate respiratory distress which is not uncommon for this patient. EMS reports on arrival to the scene, the patient's oxygen saturation was 78% on room air. Patient has known COPD,asthma, and CHF. Patient is on 4 L at home oxygen daily. HIstory is limited secondary to the patient's medical condition. (PRINCESS MTZ) - Related Data Allergies/Adverse Reactions: codeine [Codeine] Adverse Reaction (Unknown, Verified 08/23/16 08:03) Past Medical History - General Information source: [facility] Records Cannot obtain history due to: Unstable vital signs - hypoxic - Social History Smoking Status: Current Every Day Smoker Cigarette use (# per day): Yes Frequency of alcohol use: None Drug Abuse: None Lives with: Family Family History: Reviewed & Not Pertinent, Hypertension, Other - Alzheimer's, renal failure - Past Medical History Cardiac Medical History: Reports: Hx Congestive Heart Failure, Hx Coronary Artery Disease, Hx Hypercholesterolemia, Hx Hypertension, Hx Peripheral Vascular Disease Pulmonary Medical History: Reports: Hx Asthma, Hx Bronchitis, Hx COPD, Hx Respiratory Failure, Hx Sleep Apnea Neurological Medical History: Reports: Hx Migraine Endocrine Medical History: Reports: Hx Diabetes Mellitus Type 1, Hx Diabetes Mellitus Type 2 Renal/ Medical History: Reports: Hx Ovarian Cysts Malignancy Medical History: GI Medical History: Reports: Hx Gastritis, Hx Ulcer Musculoskeltal Medical History: Reports Hx Arthritis, Reports Hx Fibromyalgia, Reports Hx Musculoskeletal Deformity, Reports Hx Musculoskeletal Trauma Psychiatric Medical History: Reports: Hx Anxiety, Hx Depression Denies: Hx Attention Deficit Hyperactivity Disorder Traumatic Medical History: Reports: Hx Fractures - pinkie finger Infectious Medical History: Reports: Hx C-Diff, Hx MRSA Past Surgical History: Reports: Hx Appendectomy, Hx Cardiac Catheterization, Hx Cholecystectomy, Hx Coronary Stent, Hx Hysterectomy, Hx Orthopedic Surgery - right shoulder, Hx Tubal Ligation, Hx Vascular Surgery - Immunizations Immunizations up to date: Yes Hx Diphtheria, Pertussis, Tetanus Vaccination: Yes Hx Pneumococcal Vaccination: 02/17/10 <PRINCESS MTZ - Last Filed: 09/28/16 03:56> Review of Systems - Review of Systems -: Yes ROS unobtainable due to patient's medical condition <PRINCESS MTZ - Last Filed: 09/28/16 03:56> Physical Exam <MORALES VASQUEZ - Last Filed: 09/28/16 03:25> <PRINCESS MTZ - Last Filed: 09/28/16 03:56> <SHEREEN MANLEY - Last Filed: 09/29/16 16:20> - Vital signs Vitals: Resp Pulse Ox 28 H 93 09/28/16 00:16 09/28/16 00:16 Resp Pulse Ox 28 H 93 09/28/16 00:16 09/28/16 00:16 (PRINCESS MTZ) - Notes Notes: Physical Exam: General: Alert, moderate distress. HEENT: Normocephalic. Atraumatic. PERRL. Extraocular movements intact. Oropharynx clear. Neck: Supple. Non-tender. Respiratory: Moderate respiratory distress. Decreased breath sounds in all lung ashley. Hypoxic. Cardiovascular: Regular rate and rhythm. Abdominal: Morbidly obese. Non-tender. No distension. Normal Bowel Sounds. Back: Non-tender. No deformity or step off. Extremities: Moves all four extremities. Upper extremities: Normal inspection. Normal ROM. Lower extremities: Normal inspection. No edema. Normal ROM. Neurological: Normal cognition. AAOx4. Normal speech. Psychological: Normal affect. Normal Mood. Skin: Warm. Dry. Normal color. (PRINCESS MTZ) Course - Laboratory Result Diagrams: 09/28/16 00:53 09/28/16 01:34 <MORALES VASQUEZ - Last Filed: 09/28/16 03:25> - Laboratory Result Diagrams: 09/28/16 00:53 09/28/16 01:34 <PRINCESS MTZ - Last Filed: 09/28/16 03:56> - Laboratory Result Diagrams: 09/29/16 07:34 09/29/16 07:34 <SHEREEN MANLEY - Last Filed: 09/29/16 16:20> - Re-evaluation Re-evalutation: 09/28/16 02:50 Patient presents emerged from of EMS with respiratory distress. Patient has an extensive past medical history of CHF COPD on 4 L of home oxygen and cardiac stent invited. Multiple medical problems and last admission to Dr. Chávez earlier this month. Patient presents with they stated initially 80% on room air at home with family since she is on 4 L at home. They placed her on a nonrebreather mask and she satting 98% immediately greeted at the bedside on the BiPAP machine she is awake alert and having full conversations with intercostal retractions and mild respiratory distress. Stat chest x-ray I interpret to see a left upper lobe pneumonia mild cardiomegaly with CHF the radiologist cannot decide whether CHF pneumonia or COPD and gives no diagnosis however the patient clearly has an infiltrative pattern in the left upper area. Went ahead and did blood cultures and broad-spectrum antibiotics. White blood count is negative EKG shows left bundle branch block with history of the same unchanged. Her blood gas came back with a pH of 7.33 PCO2 of 59 and PO2 of 233 and bicarb 31 shows she was weaned down to 6 L and satting 90%. Patient still awake and alert not requiring emergent intubation. H&H are 9.7 and 30.9 with no active bleeding. Her BNP was 6990 given IV Lasix her troponin came back elevated at 0.566. Given the fact that the patient has multiple comorbidities shortness of breath COPD CHF pneumonia and an elevated troponin with history of stent she be transferred to [facility]. I contacted them at 0-45 pending a call back. 09/28/16 03:20 Dr. DIEGO accepted transfer the patient to [facility] and patella form is completed. EKG #2 is unchanged from the previous. They will contact us when there is a bed available. 09/28/16 03:20 09/28/16 04:00 CARE [address] out to Dr. Wolf pending transfer to [facility] 09/28/16 03:25 (MORALES VASQUEZ) 09/29/16 15:52 Patient was doing well up until approximately 15 minutes ago when daughter moved her to sit on the bed pain, patient has since been tachycardic in the 150s stating she cannot breathe, BiPAP was immediately placed on her, she was given Ativan pain control chest x-ray has been ordered, multiple times for IV placement failed 09/29/16 16:12 U/s guided antecubital left placed, cta pending. pt notes breathing is improving , nitro drip started 09/29/16 16:17 Please add an additional 85 minutes of critical care time 85 minutes of critical care time spent in direct contact evaluating and reevaluating the patient, treating symptoms, reviewing labs and studies and speaking with family and consultants excluding any procedures 09/29/16 16:20 [facility] paged again with update (SHEREEN MANLEY) - Vital Signs Vital signs: Temp Pulse Resp BP Pulse Ox 98.7 F 17 149/88 H 87 L 09/29/16 14:45 09/29/16 14:01 09/29/16 14:00 09/29/16 14:01 - Laboratory Laboratory results interpreted by me: 09/28/16 09/28/16 09/28/16 00:35 00:53 01:34 RBC 3.23 L Hgb 9.7 L Hct 30.9 L MCHC 31.4 L RDW 15.3 H Seg Neutrophils % 81.4 H Seg Neuts % (Manual) Band Neutrophils % Lymphocytes % 8.2 L Lymphocytes % (Manual) Monocytes % (Manual) Abs Lymphs (Manual) Carbonic Acid 1.80 H ABG pH 7.33 L ABG pCO2 59.7 H ABG pO2 233.0 H ABG HCO3 31.0 H ABG Total CO2 32.8 H ABG O2 Saturation 99.4 H Sodium 136.4 L Potassium 5.3 H Chloride 97 L Carbon Dioxide 32 H BUN 36 H Est GFR (Non-Af Amer) 58 L Glucose 237 H POC Glucose Calcium 8.0 L NT-Pro-B Natriuret Pep Urine Ketones Ur Leukocyte Esterase 09/28/16 09/28/16 09/28/16 01:34 03:35 17:43 RBC Hgb Hct MCHC RDW Seg Neutrophils % Seg Neuts % (Manual) Band Neutrophils % Lymphocytes % Lymphocytes % (Manual) Monocytes % (Manual) Abs Lymphs (Manual) Carbonic Acid ABG pH ABG pCO2 ABG pO2 ABG HCO3 ABG Total CO2 ABG O2 Saturation Sodium Potassium Chloride Carbon Dioxide BUN Est GFR (Non-Af Amer) Glucose POC Glucose 278 H Calcium NT-Pro-B Natriuret Pep 6990 H Urine Ketones TRACE H Ur Leukocyte Esterase MODERATE H 09/28/16 09/28/16 09/28/16 21:55 21:55 21:55 RBC 3.15 L Hgb 9.5 L Hct 29.5 L MCHC RDW 14.9 H Seg Neutrophils % Seg Neuts % (Manual) 91 H Band Neutrophils % 2 L Lymphocytes % Lymphocytes % (Manual) 4 L Monocytes % (Manual) 2 L Abs Lymphs (Manual) 0.3 L Carbonic Acid ABG pH ABG pCO2 ABG pO2 ABG HCO3 ABG Total CO2 ABG O2 Saturation Sodium Potassium 5.3 H Chloride 96 L Carbon Dioxide 31 H BUN 39 H Est GFR (Non-Af Amer) Glucose 257 H POC Glucose Calcium 8.3 L NT-Pro-B Natriuret Pep 6480 H Urine Ketones Ur Leukocyte Esterase 09/29/16 09/29/16 07:34 07:34 RBC 3.23 L Hgb 9.9 L Hct 30.5 L MCHC RDW 14.8 H Seg Neutrophils % Seg Neuts % (Manual) 94 H Band Neutrophils % 1 L Lymphocytes % Lymphocytes % (Manual) 3 L Monocytes % (Manual) 2 L Abs Lymphs (Manual) 0.2 L Carbonic Acid ABG pH ABG pCO2 ABG pO2 ABG HCO3 ABG Total CO2 ABG O2 Saturation Sodium 136.7 L Potassium Chloride 93 L Carbon Dioxide 34 H BUN 43 H Est GFR (Non-Af Amer) 57 L Glucose 362 H POC Glucose Calcium 8.3 L NT-Pro-B Natriuret Pep Urine Ketones Ur Leukocyte Esterase - EKG Interpretation by Me Additional EKG results interpreted by me: 09/28/16 03:21 EKG #1 sinus tachycardia 190 bpm with left bundle branch block compared to previous which is old. EKG #2 sinus rhythm at 97 bpm left bundle branch block no acute changes from initial EKG. (MORALES VASQUEZ) Critical Care Note - Critical Care Note Total time excluding time spent on procedures (mins): 65 <MORALES VASQUEZ - Last Filed: 09/28/16 03:25> Discharge <MORALES VASQUEZ - Last Filed: 09/28/16 03:25> <PRINCESS MTZ - Last Filed: 09/28/16 03:56> <SHEREEN MANLEY - Last Filed: 09/29/16 16:20> - Discharge Clinical Impression: Acute respiratory distress, Pneumonia, CHF exacerbation, Elevated troponin, Left bundle branch block old Condition: Stable Disposition: [facility] Referrals: TANISHA POLLARD MD [Primary Care Provider] - Follow up as needed Scribe Attestation: 09/28/16 02:52 I personally performed the services described in the documentation reviewed the documentation recorded by my scribe in my presence and it accurately and completely records my words and actions (MORALES VASQUEZ) Scribe Documentation - Scribe Written by Scribe:: Johnny Ortiz, 09/28/2016 0354 acting as scribe for :: Toni <PRINCESS MTZ - Last Filed: 09/28/16 03:56>
[2016-09-28] MEDS ORDERED: METHYLPREDNISOLONE INJ 125 MG/2 ML SDV IV ONE (00:32)
[2016-09-28] MEDS: MAGNESIUM SULFATE/D5W 100 ML IV SCH ×2 (00:42→01:45)
[2016-09-28 00:47] LABS: ARTERIAL BLOOD O2 SATURATION 99.4 % (94-98)
--- NOTE | 2016-09-28 00:50 | RADIOLOGY REPORT (SQ) ---
EXAM DESCRIPTION: CHEST SINGLE VIEW COMPLETED DATE/TIME: 09/28/2016 12:31 am REASON FOR STUDY: respiratory distress COMPARISON: 09/17/2016. EXAM PARAMETERS: NUMBER OF VIEWS: One view. TECHNIQUE: Single frontal radiographic view of the chest acquired. RADIATION DOSE: NA LIMITATIONS: None. FINDINGS: LUNGS AND PLEURA: [id number] mixed interstitial and airspace opacities, left more th an right. MEDIASTINUM AND HILAR STRUCTURES: No masses. Contour normal. HEART AND VASCULAR STRUCTURES: Mild enlargement of the cardiac silhouette. BONES: No acute findings. HARDWARE: None in the chest. OTHER: No other significant finding. IMPRESSION: [id number] mixed interstitial and airspace opacity. Mild cardiac enlargement. Di fferential diagnosis includes CHF, pulmonary edema, and multifocal pneumonia. TECHNICAL DOCUMENTATION: JOB ID: [id number]
[2016-09-28 01:14] LABS: ABSOLUTE EOSINOPHILS # (AUTO) 0.1 10^3/uL (0.0-0.6); ABSOLUTE LYMPHOCYTES (AUTO) 0.7 10^3/uL (0.5-4.7); ABSOLUTE MONOCYTES (AUTO) 0.8 10^3/uL (0.1-1.4); ABSOLUTE NEUT (AUTO) 6.8 10^3/uL (1.7-8.2); BASOPHILS % (AUTO) 0.3 % (0-2); EOSINOPHILS % (AUTO) 1.1 % (0-6); HEMATOCRIT 30.9 % (36.0-47.0); HEMOGLOBIN 9.7 g/dL (12.0-15.5); HGB HCT DIFFERENCE -1.8; LYMPHOCYTES % (AUTO) 8.2 % (13-45); MEAN CORPUSCULAR HGB CONC 31.4 g/dL (32.0-36.0); MEAN CORPUSCULAR VOLUME 96 fl (80-97); RED BLOOD COUNT 3.23 10^6/uL (3.72-5.28); RED CELL DISTRIBUTION WIDTH 15.3 % (11.5-14.0); SEGMENTED NEUTROPHILS % (AUTO) 81.4 % (42-78); WHITE BLOOD COUNT 8.4 10^3/uL (4.0-10.5)
[2016-09-28] MEDS ORDERED: AZITHROMYCIN INJ 500 MG VIAL IV ONE (01:50)
[2016-09-28] MEDS ORDERED: CEFTRIAXONE INJ 1000 MG VIAL IV ONE (01:50)
[2016-09-28 01:59] LABS: ALANINE AMINOTRANSFERASE 34 U/L (9-52); ALBUMIN 3.8 g/dL (3.5-5.0); ALKALINE PHOSPHATASE 86 U/L (38-126); ASPARTATE AMINO TRANSFERASE 33 U/L (14-36); BILIRUBIN,DIRECT 0.4 mg/dL (0.0-0.4); BILIRUBIN,TOTAL 0.6 mg/dL (0.2-1.3); BLOOD UREA NITROGEN 36 mg/dL (7-20); CARBON DIOXIDE 32 mmol/L (22-30); CHLORIDE 97 mmol/L (98-107); CREATININE RESULT 0.97 mg/dL (0.52-1.25); GLUCOSE 237 mg/dL (75-110); TOTAL PROTEIN 6.8 g/dL (6.3-8.2)
[2016-09-28 02:01] LABS: ANION GAP 7 (5-19); SODIUM 136.4 mmol/L (137-145)
[2016-09-28 02:07] LABS: POTASSIUM 5.3 mmol/L (3.6-5.0)
[2016-09-28 02:10] LABS: CREATINE KINASE MB 3.85 ng/mL (<4.55)
[2016-09-28 02:13] LABS: TROPONIN I 0.566 ng/mL
[2016-09-28] MEDS ORDERED: FUROSEMIDE INJ/PF 100 MG/10 ML SDV IV ONE (02:52)
[2016-09-28 03:53] LABS: APPEARANCE,URINE SLIGHTLY-CLOUDY; BILIRUBIN,URINE NEGATIVE (NEGATIVE); GLUCOSE, URINE NEGATIVE (NEGATIVE); KETONES,URINE TRACE mg/dL (NEGATIVE); LEUKOCYTE ESTERASE,URINE MODERATE (NEGATIVE); NITRITE,URINE NEGATIVE (NEGATIVE); PROTEIN,URINE NEGATIVE (NEGATIVE); URINE SPECIFIC GRAVITY 1.015; UROBILINOGEN,URINE NEGATIVE mg/dL (<2.0)
[2016-09-28] MEDS ORDERED: OXYCODONE HCL IR 5 MG TABLET PO ONE (13:20)
--- NOTE | 2016-09-28 16:36 | EKG REPORT ---
SEVERITY:- ABNORMAL ECG - SINUS RHYTHM PROBABLE LEFT ATRIAL ABNORMALITY LEFT BUNDLE BRANCH BLOCK : Confirmed by: Yoko Martinez 28-Sep-2016 16:35:30
--- NOTE | 2016-09-28 16:37 | EKG REPORT ---
SEVERITY:- ABNORMAL ECG - SINUS TACHYCARDIA PROBABLE LEFT ATRIAL ABNORMALITY LEFT BUNDLE BRANCH BLOCK : Confirmed by: Yoko Martinez 28-Sep-2016 16:35:44
[2016-09-28] MEDS ORDERED: ONDANSETRON HCL INJ/PF 4 MG/2 ML SDV IV ONE (16:54)
[2016-09-28] MEDS ORDERED: ALBUTEROL SULFATE 0.083% NEB 2.5 MG/3 ML AMPUL NEB PRN (20:45)
[2016-09-28] MEDS ORDERED: CEFTRIAXONE INJ 1000 MG VIAL IV SCH (20:45)
[2016-09-28] MEDS ORDERED: FUROSEMIDE INJ/PF 40 MG/4 ML SDV IV ONE (20:45)
--- NOTE | 2016-09-28 20:47 | ER Document Report ---
Doctor's Note Notes: 09/28/16 20:46 Patient has now been pending transfer from his 24 hours. Did discuss patient's case with her PCP at this time patient has multiple admissions for recurring issues COPD concerned about elevated troponin. Although the troponin is trending down request continue with transfer is that we have ran out of resources here in our facility states patient may be better suited to tertiary care with pulmonary and specialty coverage coverage. Patient was reevaluated sleeping easily arousable on 4 L of oxygen. We will repeat laboratory studies EKG will start patient on steroids bronchodilators continue antibiotics with a diagnosis of pneumonia
[2016-09-28] MEDS ORDERED: AZITHROMYCIN INJ 500 MG VIAL IV SCH (21:00)
[2016-09-28] MEDS ORDERED: AZITHROMYCIN INJ 500 MG VIAL IV PRN (21:00)
[2016-09-28] MEDS ORDERED: CEFTRIAXONE 1 GM/D5W RTU 1 GM/50 ML RTUPB IV SCH (22:00)
[2016-09-28] MEDS ORDERED: AZITHROMYCIN 500 MG in DEXTROSE 5%-WATER 250 ML IV SCH (22:00)
[2016-09-28 22:13] LABS: HEMATOCRIT 29.5 % (36.0-47.0); HEMOGLOBIN 9.5 g/dL (12.0-15.5); MEAN CORPUSCULAR HEMOGLOBIN 30.1 pg (27.0-33.4); MEAN CORPUSCULAR HGB CONC 32.2 g/dL (32.0-36.0); MEAN CORPUSCULAR VOLUME 93 fl (80-97); RED BLOOD COUNT 3.15 10^6/uL (3.72-5.28); RED CELL DISTRIBUTION WIDTH 14.9 % (11.5-14.0); WHITE BLOOD COUNT 6.2 10^3/uL (4.0-10.5)
[2016-09-28] MEDS: METHYLPREDNISOLONE INJ 125 MG/2 ML SDV IV SCH (22:14)
[2016-09-28 22:35] LABS: ANION GAP 12 (5-19); BAND NEUTROPHILS % (MANUAL) 2 % (3-5); BASOPHILS % (MANUAL) 0 % (0-2); BLOOD UREA NITROGEN 39 mg/dL (7-20); CALCIUM 8.3 mg/dL (8.4-10.2); CARBON DIOXIDE 31 mmol/L (22-30); CHLORIDE 96 mmol/L (98-107); EOSINOPHILS % (MANUAL) 0 % (0-6); GLUCOSE 257 mg/dL (75-110); LYMPHOCYTES % (MANUAL) 4 % (13-45); POTASSIUM 5.3 mmol/L (3.6-5.0); SODIUM 138.6 mmol/L (137-145); TOTAL CELLS COUNTED 100
[2016-09-28 22:37] LABS: ANISOCYTOSIS SLIGHT; TOXIC VACUOLATION PRESENT
[2016-09-28 22:47] LABS: TROPONIN I 0.25 ng/mL
[2016-09-28] MEDS: TRAMADOL HCL 50 MG TABLET PO ONE (23:30)
--- NOTE | 2016-09-28 23:53 | EKG REPORT ---
SEVERITY:- ABNORMAL ECG - SINUS RHYTHM PROBABLE LEFT ATRIAL ABNORMALITY LEFT BUNDLE BRANCH BLOCK : Confirmed by: Yoko Martinez 28-Sep-2016 23:53:06
[2016-09-29] MEDS ORDERED: IPRATROPIUM/ALBUTEROL 0.5-2.5 MG/3 ML AMPUL NEB PRN (03:13)
--- NOTE | 2016-09-29 03:17 | ER Document Report ---
Doctor's Note Notes: 09/29/16 03:16 Patient resting comfortably, no acute distress, remains stable. I have ordered morning laboratories, monitoring chest x-ray for the a.m., maximiliano cabezas as needed. I have also ordered tramadol every 6 hours as needed as patient is a chronic pain patient but will not provide her usual narcotic pain medications. We are awaiting bed placement.
[2016-09-29] MEDS: TRAMADOL HCL 50 MG TABLET PO PRN ×3 (03:33→19:07)
[2016-09-29] MEDS: METHYLPREDNISOLONE INJ 125 MG/2 ML SDV IV SCH ×2 (06:34→14:13)
[2016-09-29 07:45] LABS: HEMATOCRIT 30.5 % (36.0-47.0); HEMOGLOBIN 9.9 g/dL (12.0-15.5); HGB HCT DIFFERENCE -0.8; MEAN CORPUSCULAR HEMOGLOBIN 30.6 pg (27.0-33.4); MEAN CORPUSCULAR HGB CONC 32.4 g/dL (32.0-36.0); MEAN CORPUSCULAR VOLUME 94 fl (80-97); RED BLOOD COUNT 3.23 10^6/uL (3.72-5.28); RED CELL DISTRIBUTION WIDTH 14.8 % (11.5-14.0); WHITE BLOOD COUNT 6.1 10^3/uL (4.0-10.5)
[2016-09-29 07:58] LABS: ANION GAP 10 (5-19); BLOOD UREA NITROGEN 43 mg/dL (7-20); CALCIUM 8.3 mg/dL (8.4-10.2); CARBON DIOXIDE 34 mmol/L (22-30); CHLORIDE 93 mmol/L (98-107); CREATININE RESULT 0.99 mg/dL (0.52-1.25); GLUCOSE 362 mg/dL (75-110); POTASSIUM 4.6 mmol/L (3.6-5.0); SODIUM 136.7 mmol/L (137-145)
[2016-09-29] MEDS ORDERED: IPRATROPIUM/ALBUTEROL 0.5-2.5 MG/3 ML AMPUL NEB SCH (08:00)
[2016-09-29 08:04] LABS: BAND NEUTROPHILS % (MANUAL) 1 % (3-5); BASOPHILS % (MANUAL) 0 % (0-2); EOSINOPHILS % (MANUAL) 0 % (0-6); LYMPHOCYTES % (MANUAL) 3 % (13-45); TOTAL CELLS COUNTED 100
[2016-09-29 08:06] LABS: ANISOCYTOSIS SLIGHT; OVALOCYTES SLIGHT; PLATELET CLUMPS PRESENT; POIKILOCYTOSIS SLIGHT; POLYCHROMASIA SLIGHT; TARGET CELLS SLIGHT
[2016-09-29 08:07] LABS: TOXIC VACUOLATION PRESENT
--- NOTE | 2016-09-29 08:11 | ER Document Report ---
Doctor's Note Notes: 09/29/16 08:10 Reevaluation of patient notes no significant distress, lab work notes enzymes have trended down. pt is otherwise well appearing , delay on transfer noted 09/29/16 09:15 I spoke with PCP, he agrees to admit patient if transfer is going to be a long wait. I will call [place] at this time to determine if there is any other openings 09/29/16 09:16 [facility] called
--- NOTE | 2016-09-29 08:28 | RADIOLOGY REPORT (SQ) ---
EXAM DESCRIPTION: CHEST SINGLE VIEW COMPLETED DATE/TIME: 09/29/2016 6:59 am REASON FOR STUDY: sob COMPARISON: 09/28/2016 EXAM PARAMETERS: NUMBER OF VIEWS: One view. TECHNIQUE: Single frontal radiographic view of the chest acquired. RADIATION DOSE: NA LIMITATIONS: None. FINDINGS: LUNGS AND PLEURA: The previously described mi tube moderate mixed interstitial and airspac e opacity appears minimally improved. MEDIASTINUM AND HILAR STRUCTURES: No masses. Contour normal. HEART AND VASCULAR STRUCTURES: Cardiac silhouette remains enlarged. BONES: No acute findings. HARDWARE: None in the chest. OTHER: No other significant finding. IMPRESSION: Minimal interval improvement as noted above TECHNICAL DOCUMENTATION: JOB ID: [id number]
[2016-09-29] MEDS ORDERED: ONDANSETRON HCL INJ/PF 4 MG/2 ML SDV IV ONE (12:52)
[2016-09-29] MEDS ORDERED: LORAZEPAM INJ 2 MG/1 ML VIAL ONE (15:37)
[2016-09-29] MEDS ORDERED: MORPHINE SULFATE 10 MG/ML INJ ONE (15:48)
[2016-09-29] MEDS ORDERED: INSULIN REG, HUMAN 100 UNIT/ML 3 ML VIAL (PYX) SUBCUT ONE (15:58)
[2016-09-29] MEDS ORDERED: LORAZEPAM INJ 2 MG/1 ML VIAL IV ONE (15:59)
[2016-09-29] MEDS ORDERED: MORPHINE SULFATE 10 MG/ML INJ IV ONE (15:59)
[2016-09-29] MEDS ORDERED: FUROSEMIDE INJ/PF 40 MG/4 ML SDV IV ONE (15:59)
[2016-09-29] MEDS ORDERED: IPRATROPIUM/ALBUTEROL 0.5-2.5 MG/3 ML AMPUL NEB ONE (15:59)
[2016-09-29] MEDS ORDERED: INSULIN REG, HUMAN 100 UNIT/ML 3 ML VIAL (PYX) ONE (16:06)
--- NOTE | 2016-09-29 16:11 | RADIOLOGY REPORT (SQ) ---
EXAM DESCRIPTION: CHEST SINGLE VIEW COMPLETED DATE/TIME: 09/29/2016 3:56 pm REASON FOR STUDY: er 11 COMPARISON: 09/29/2016 NUMBER OF VIEWS: One view. TECHNIQUE: Single frontal radiographic view of the chest acquired. LIMITATIONS: None. FINDINGS: LUNGS AND PLEURA: Increased Peribronchial cuffing and interstitial changes. No consolidati on, pneumothorax or significant effusion. MEDIASTINUM AND HILAR STRUCTURES: Stable. HEART AND VASCULAR STRUCTURES: Stable cardiomegaly. BONES: No acute findings. HARDWARE: None in the chest. OTHER: No other significant finding. IMPRESSION: Increased interstitial thickening most suggestive of pulmonary edema. TECHNICAL DOCUMENTATION: JOB ID: [id number] [employer]- All Rights Reserved
[2016-09-29] MEDS ORDERED: NITROGLYCERIN/D5W 250 ML IV PRN (16:16)
[2016-09-29] MEDS ORDERED: ONDANSETRON HCL INJ/PF 4 MG/2 ML SDV IV PRN (16:36)
[2016-09-29] MEDS ORDERED: MORPHINE SULFATE 10 MG/ML INJ IV PRN (16:36)
[2016-09-29] MEDS ORDERED: NITROGLYCERIN/D5W 50 MG/250 ML RTUINJ IV ONE (16:42)
[2016-09-29 18:40] VITALS: BP 142/90
--- NOTE | 2016-09-29 19:04 | ER Document Report ---
Doctor's Note Notes: 09/29/16 19:03 Transport in ED. Pt seen and stable for transport. Requesting her Tramadol that was ordered before her transport.
--- NOTE | 2016-09-29 23:11 | EKG REPORT ---
SEVERITY:- ABNORMAL ECG - SINUS TACHYCARDIA, CONSIDER ATRIAL FLUTTER WITH 2:1 CONSIDER VENTRICULAR PREMATURE COMPLEX LEFT BUNDLE BRANCH BLOCK : Confirmed by: Yoko Martinez 29-Sep-2016 23:10:47
== END 2016-09-29 19:13 | disposition short-term general hospital (02) ==
LOC: ER 00:13
DX: R06.00 Dyspnea, unspecified (principal); J18.9 Pneumonia, unspecified organism; R74.8 Abnormal levels of other serum enzymes; I44.7 Left bundle-branch block, unspecified; J44.9 Chronic obstructive pulmonary disease, unspecified; J45.909 Unspecified asthma, uncomplicated; I50.9 Heart failure, unspecified; F17.210 Nicotine dependence, cigarettes, uncomplicated; E11.9 Type 2 diabetes mellitus without complications; I11.0 Hypertensive heart disease with heart failure; I25.10 Atherosclerotic heart disease of native coronary artery without angina pectoris; Z99.81 Dependence on supplemental oxygen; Z90.49 Acquired absence of other specified parts of digestive tract; Z88.6 Allergy status to analgesic agent; Z90.710 Acquired absence of both cervix and uterus
CPT/HCPCS: 93005 ×2; 96376; 94640 ×2; 99291; 99292; 51702; 96375; 96365; 96366; 96367; 96368; 36415; 87040; 82553; 82962; 82803; 85025; 87077; 80048; 80053; 81001; 84484; 87186; 83880; 71010 ×2; 93010 ×2; 36600; 94660; J1940 ×3; J2930 ×2; J2270; J2060; J3475; J1815; J0696 ×2; J2405 ×2; J3490 ×2; J7060; J0456; J7620

== ENCOUNTER 2016-11-07 12:06 | Inpatient (IN) | payer MEDICAID ==
[2016-11-07] MEDS ORDERED: METHYLPREDNISOLONE INJ 125 MG/2 ML SDV IV ONE (12:12)
[2016-11-07] MEDS ORDERED: IPRATROPIUM/ALBUTEROL 0.5-2.5 MG/3 ML AMPUL NEB ONE (12:12)
[2016-11-07] MEDS ORDERED: MAGNESIUM SULFATE/D5W 1 GM/100 ML RTUPB IV SCH (12:15)
--- NOTE | 2016-11-07 12:30 | ER Document Report ---
ED Respiratory Problem - General Mode of Arrival: Medic Information source: Patient, Emergency Med Personnel TRAVEL OUTSIDE OF THE [place] IN LAST 30 DAYS: No - HPI Patient complains to provider of: COPD, Short of breath Associated symptoms: Other - see above <BRITTANY GRULLON - Last Filed: 11/07/16 12:46> <BEV CRESPO - Last Filed: 11/07/16 16:46> - General Stated Complaint: DIFFICULTY BREATHING Time Seen by Provider: 11/07/16 12:10 Notes: Patient is a 65 year old female who presents to the ED with a history of COPD and chronic pain with complaints of worsening SOB today. (BRITTANY GRULLON) - Related Data Allergies/Adverse Reactions: codeine [Codeine] Adverse Reaction (Unknown, Verified 08/23/16 08:03) Home Medications: Current Home Medications Albuterol Sulfate [Proair HFA] 2 puff IH Q4HP PRN 11/07/16 [History] Aspirin [Aspirin 81 mg Chewable Tablet] 81 mg PO DAILY 11/07/16 [History] Atorvastatin Calcium [Lipitor 40 mg Tablet] 40 mg PO QHS 11/07/16 [History] Clopidogrel Bisulfate [Plavix 75 mg Tablet] 75 mg PO DAILY 11/07/16 [History] Duloxetine HCl [Cymbalta] 60 mg PO DAILY 11/07/16 [History] Fluticasone/Salmeterol [Advair 250-50 Diskus 14 Dose/Diskus] 1 inh IH Q12 [History] Gabapentin [Neurontin 300 mg Capsule] 300 mg PO Q8 11/07/16 [History] Insulin Aspart [Novolog Flexpen] 8 unit SQ TID 11/07/16 [History] Insulin Detemir [Levemir Flextouch] 50 unit SQ BID 11/07/16 [History] Lisinopril [Prinivil 2.5 mg Tablet] 2.5 mg PO DAILY 11/07/16 [History] Magnesium Oxide [Magnesium] 400 mg PO DAILY 11/07/16 [History] Melatonin [Melatin] 6 mg PO QHS 11/07/16 [History] Metformin HCl [Metformin HCl ER] 500 mg PO QPM 11/07/16 [History] Metoprolol Succinate [Toprol Xl 50 mg Tab.sr] 50 mg PO DAILY 11/07/16 [History] Pioglitazone HCl [Actos] 45 mg PO DAILY 11/07/16 [History] Simethicone [Gas Relief 80] 80 mg PO QIDP PRN 11/07/16 [History] Spironolactone [Aldactone 25 mg Tablet] 25 mg PO DAILY 11/07/16 [History] Tiotropium Malone [Spiriva Handihaler 18 mcg/dose (30 Dose)] 1 cap IH DAILY [History] Tramadol HCl/Acetaminophen [Ultracet 37.5 mg/325 mg Tablet] 1 each PO Q6 [History] Past Medical History - General Information source: Patient - Social History Smoking Status: Current Every Day Smoker Family History: Reviewed & Not Pertinent, Hypertension, Other - Alzheimer's, renal failure - Past Medical History Cardiac Medical History: Reports: Hx Congestive Heart Failure, Hx Coronary Artery Disease, Hx Hypercholesterolemia, Hx Hypertension, Hx Peripheral Vascular Disease Denies: Hx Heart Murmur Pulmonary Medical History: Reports: Hx Asthma, Hx Bronchitis, Hx COPD, Hx Respiratory Failure, Hx Sleep Apnea Denies: Hx Tuberculosis Neurological Medical History: Reports: Hx Migraine. Denies: Hx Seizures Endocrine Medical History: Reports: Hx Diabetes Mellitus Type 1, Hx Diabetes Mellitus Type 2 Renal/ Medical History: Reports: Hx Ovarian Cysts Malignancy Medical History: GI Medical History: Reports: Hx Gastritis, Hx Ulcer Musculoskeltal Medical History: Reports Hx Arthritis, Reports Hx Fibromyalgia, Reports Hx Musculoskeletal Deformity, Reports Hx Musculoskeletal Trauma Psychiatric Medical History: Reports: Hx Anxiety, Hx Depression Denies: Hx Attention Deficit Hyperactivity Disorder Traumatic Medical History: Reports: Hx Fractures - pinkie finger Infectious Medical History: Reports: Hx C-Diff, Hx MRSA Past Surgical History: Reports: Hx Appendectomy, Hx Cardiac Catheterization, Hx Cholecystectomy, Hx Coronary Stent, Hx Hysterectomy, Hx Orthopedic Surgery - right shoulder, Hx Tubal Ligation, Hx Vascular Surgery - Immunizations Immunizations up to date: Yes Hx Diphtheria, Pertussis, Tetanus Vaccination: Yes Hx Pneumococcal Vaccination: 02/17/10 <BRITTANY GRULLON - Last Filed: 11/07/16 12:46> Review of Systems - Review of Systems Constitutional: No symptoms reported EENT: No symptoms reported Cardiovascular: No symptoms reported Respiratory: See HPI, Short of breath Gastrointestinal: No symptoms reported Genitourinary: No symptoms reported Female Genitourinary: No symptoms reported Musculoskeletal: See HPI, Other - chronic pain Skin: No symptoms reported Hematologic/Lymphatic: No symptoms reported Neurological/Psychological: No symptoms reported <BRITTANY GRULLON - Last Filed: 11/07/16 12:46> Physical Exam - General General appearance: Alert, Anxious, Other - appears uncomfortable In distress: Moderate - HEENT Head: Normocephalic, Atraumatic Eyes: Normal Extraocular movements intact: Yes Pupils: PERRL Mucous membranes: Dry - Respiratory Respiratory status: Tachypnea Breath sounds: Decreased air movement - bilaterally, Wheezing - Cardiovascular Rhythm: Regular Heart sounds: Normal auscultation Murmur: No - Abdominal Inspection: Normal Distension: No distension Tenderness: Nontender - Back Back: Normal - Extremities General upper extremity: Normal inspection, Normal ROM, Other - scratches on bilateral upper extremities General lower extremity: Normal inspection, Normal ROM - Neurological Neuro grossly intact: Yes - Psychological Associated symptoms: Normal affect, Normal mood - Skin Skin Temperature: Warm Skin Moisture: Dry Skin Color: Normal Skin irregularity: other - scratches on bilateral upper extremities <BRITTANY GRULLON - Last Filed: 11/07/16 12:46> - Vital signs Vitals: Resp BP 25 H 139/95 H 11/07/16 12:14 11/07/16 12:14 Course <BRITTANY GRULLON - Last Filed: 11/07/16 12:46> - Laboratory Result Diagrams: 11/07/16 12:45 11/07/16 12:45 - Diagnostic Test Radiology reviewed: Reports reviewed <BEV CRESPO - Last Filed: 11/07/16 16:46> - Re-evaluation Re-evalutation: 11/07/16 Patient is a 65-year-old female who comes in with difficulty breathing. Patient has a history of COPD. Patient presents with decreased lung sounds, wheezing, tachypnea. Initial blood gases acidotic with high CO2. No evidence for pneumonia on chest x-ray. Patient is afebrile. Patient is more comfortable since being on BiPAP and receiving nebulizer treatments. Patient was discussed with her primary doctor and will be admitted for COPD exacerbation. Levaquin will be given. Patient and family agree with this plan. Patient will be admitted to the [facility]. (BEV CRESPO) - Vital Signs Vital signs: Temp Pulse Resp BP Pulse Ox 17 152/90 H 100 11/07/16 15:01 11/07/16 15:01 11/07/16 15:01 - Laboratory Laboratory results interpreted by me: 11/07/16 11/07/16 11/07/16 12:31 12:45 12:45 RBC 3.68 L Hgb 10.8 L Hct 34.3 L MCHC 31.6 L RDW 14.3 H VBG pH VBG pCO2 VBG HCO3 Chloride 96 L Carbon Dioxide 34 H Glucose 342 H POC Glucose 305 H Calcium 8.0 L Total Protein 5.9 L Albumin 3.4 L 11/07/16 12:45 RBC Hgb Hct MCHC RDW VBG pH 7.29 L VBG pCO2 74.3 H* VBG HCO3 34.9 H Chloride Carbon Dioxide Glucose POC Glucose Calcium Total Protein Albumin Critical Care Note - Critical Care Note Total time excluding time spent on procedures (mins): 45 - Evaluation and management of respiratory distress, multiple re-evaluations, initiation of BiPAP , admission of patient, counseling of patient and family <BEV CRESPO - Last Filed: 11/07/16 16:46> Discharge <BRITTANY GRULLON - Last Filed: 11/07/16 12:46> - Discharge Admitting Provider: [facility] Unit Admitted: [facility] <BEV CRESPO - Last Filed: 11/07/16 16:46> - Discharge Clinical Impression: Respiratory distress, Acute chronic obstructive pulmonary disease with respiratory distress Condition: Stable Disposition: ADMITTED INPATIENT Scribe Attestation: 11/07/16 16:46 I personally performed the services described in the documentation, reviewed and edited the documentation which was dictated to the scribe in my presence, and it accurately records my words and actions. (BEV CRESPO) Scribe Documentation - Scribe Written by Althea:: althea Real, 11/07/2016, 1229 acting as scribe for :: Mike <BRITTANY GRULLON - Last Filed: 11/07/16 12:46>
[2016-11-07] MEDS ORDERED: ONDANSETRON HCL INJ/PF 4 MG/2 ML SDV IV ONE (12:46)
--- NOTE | 2016-11-07 12:51 | RADIOLOGY REPORT (SQ) ---
EXAM DESCRIPTION: CHEST SINGLE VIEW COMPLETED DATE/TIME: 11/07/2016 12:25 pm REASON FOR STUDY: SOB COMPARISON: 09/29/2016 EXAM PARAMETERS: NUMBER OF VIEWS: One view. TECHNIQUE: Single frontal radiographic view of the chest acquired. RADIATION DOSE: NA LIMITATIONS: None. FINDINGS: LUNGS AND PLEURA: No opacities, masses or pneumothorax. No pleural effusion. MEDIASTINUM AND HILAR STRUCTURES: No masses. Contour normal. HEART AND VASCULAR STRUCTURES: Heart normal in size. Normal vasculature. BONES: No acute findings. HARDWARE: None in the chest. OTHER: No other significant finding. IMPRESSION: NO ACUTE RADIOGRAPHIC FINDING IN THE CHEST. TECHNICAL DOCUMENTATION: JOB ID: [id number]
[2016-11-07 13:09] LABS: ABSOLUTE BASOPHILS # (AUTO) 0.1 10^3/uL (0.0-0.2); ABSOLUTE EOSINOPHILS # (AUTO) 0.3 10^3/uL (0.0-0.6); ABSOLUTE LYMPHOCYTES (AUTO) 1.6 10^3/uL (0.5-4.7); ABSOLUTE MONOCYTES (AUTO) 0.7 10^3/uL (0.1-1.4); ABSOLUTE NEUT (AUTO) 6.6 10^3/uL (1.7-8.2); BASOPHILS % (AUTO) 0.6 % (0-2); EOSINOPHILS % (AUTO) 3.6 % (0-6); HEMATOCRIT 34.3 % (36.0-47.0); HEMOGLOBIN 10.8 g/dL (12.0-15.5); HGB HCT DIFFERENCE -1.9; MEAN CORPUSCULAR HEMOGLOBIN 29.5 pg (27.0-33.4); MEAN CORPUSCULAR HGB CONC 31.6 g/dL (32.0-36.0); MEAN CORPUSCULAR VOLUME 93 fl (80-97); MONOCYTES % (AUTO) 7.2 % (3-13); RED BLOOD COUNT 3.68 10^6/uL (3.72-5.28); RED CELL DISTRIBUTION WIDTH 14.3 % (11.5-14.0); SEGMENTED NEUTROPHILS % (AUTO) 71.6 % (42-78); WHITE BLOOD COUNT 9.2 10^3/uL (4.0-10.5)
[2016-11-07 13:10] LABS: VENOUS BLOOD BASE EXCESS 6.3 mmol/L; VENOUS BLOOD HCO3 34.9 mmol/L (20-32); VENOUS BLOOD PH 7.29 (7.30-7.42)
[2016-11-07 13:15] LABS: VENOUS BLOOD PCO2 74.3 mmHg (35-63)
[2016-11-07 13:23] LABS: ALANINE AMINOTRANSFERASE 22 U/L (9-52); ALBUMIN 3.4 g/dL (3.5-5.0); ALKALINE PHOSPHATASE 92 U/L (38-126); ANION GAP 8 (5-19); ASPARTATE AMINO TRANSFERASE 36 U/L (14-36); BILIRUBIN,DIRECT 0.4 mg/dL (0.0-0.4); BILIRUBIN,TOTAL 0.4 mg/dL (0.2-1.3); BLOOD UREA NITROGEN 20 mg/dL (7-20); CARBON DIOXIDE 34 mmol/L (22-30); CHLORIDE 96 mmol/L (98-107); CREATININE RESULT 0.73 mg/dL (0.52-1.25); GLUCOSE 342 mg/dL (75-110); POTASSIUM 4.1 mmol/L (3.6-5.0); PROTHROMBIN TIME 12.6 SEC (11.4-15.4); SODIUM 137.8 mmol/L (137-145); TOTAL PROTEIN 5.9 g/dL (6.3-8.2)
[2016-11-07] MEDS ORDERED: LEVOFLOXACIN 750 MG/D5W RTU 750 MG/150 ML RTUPB IV ONE (15:30)
[2016-11-07 15:56] LABS: APPEARANCE,URINE SLIGHTLY-CLOUDY; BILIRUBIN,URINE NEGATIVE (NEGATIVE); GLUCOSE, URINE >=500 mg/dL (NEGATIVE); KETONES,URINE NEGATIVE (NEGATIVE); LEUKOCYTE ESTERASE,URINE LARGE (NEGATIVE); NITRITE,URINE NEGATIVE (NEGATIVE); PROTEIN,URINE NEGATIVE (NEGATIVE); URINE SPECIFIC GRAVITY 1.007; UROBILINOGEN,URINE NEGATIVE mg/dL (<2.0)
[2016-11-07] MEDS ORDERED: ALBUTEROL SULFATE HFA (90 MCG/PUFF) 8 GM MDI (1 MDI/ER DISP) IH PRN (17:41)
[2016-11-07] MEDS ORDERED: SPIRONOLACTONE 25 MG TABLET PO SCH (17:45)
[2016-11-07] MEDS ORDERED: (PENDING PHARMACY ID) (Lisinopril [Prinivil 2.5 Mg Tablet] 2.5 MG) PO SCH (17:45)
[2016-11-07] MEDS ORDERED: (PENDING PHARMACY ID) (Pioglitazone Hcl [Actos] 45 MG) PO SCH (17:45)
[2016-11-07] MEDS ORDERED: (PENDING PHARMACY ID) (Magnesium Oxide [Magnesium] 400 MG) PO SCH (17:45)
[2016-11-07] MEDS ORDERED: (PENDING PHARMACY ID) (Tramadol Hcl/Acetaminophen [Ultracet 37.5 Mg/325 Mg Tablet] 1 EACH) PO SCH (18:00)
[2016-11-07] MEDS ORDERED: (PENDING PHARMACY ID) (Metformin Hcl [Metformin Hcl Er] 500 MG) PO SCH (18:00)
[2016-11-07] MEDS ORDERED: GLUCAGON,HUMAN RECOMB 1 MG INJ IM PRN (18:19)
[2016-11-07] MEDS ORDERED: DEXTROSE 40% GEL 15 GM TUBE PO PRN ×2 (18:19)
[2016-11-07] MEDS ORDERED: DEXTROSE 50%-WATER 25 GM/50 ML DISP.SYRIN IV PRN ×2 (18:19)
--- NOTE | 2016-11-07 18:33 | EKG REPORT ---
SEVERITY:- ABNORMAL ECG - SINUS RHYTHM PROBABLE LEFT ATRIAL ABNORMALITY LEFT BUNDLE BRANCH BLOCK : Confirmed by: Kg Small MD 07-Nov-2016 18:32:18
[2016-11-07 18:35] LABS: LIPASE 49.3 U/L (23-300); PHOSPHORUS 2.3 mg/dL (2.5-4.5)
[2016-11-07 18:36] LABS: PROTHROMBIN TIME 12.7 SEC (11.4-15.4)
[2016-11-07 18:37] LABS: PARTIAL THROMBOPLASTIN TIME 25.2 SEC (23.5-35.8)
[2016-11-07 18:47] LABS: CREATINE KINASE MB 1.1 ng/mL (<4.55); TROPONIN I 0.018 ng/mL
[2016-11-07 19:04] LABS: THYROID STIMULATING HORMONE 0.16 uIU/mL (0.47-4.68)
[2016-11-07 19:31] LABS: URINE BARBITURATES SCREEN NEGATIVE; URINE METHADONE SCREEN NEGATIVE; URINE OPIATES LOW NEGATIVE; URINE PHENCYCLIDINE SCREEN NEGATIVE
[2016-11-07] MEDS ORDERED: METOPROLOL SUCCINATE 50 MG TAB.SR.24H PO ONE (20:00)
[2016-11-07] MEDS ORDERED: ENOXAPARIN SODIUM INJ 40 MG/0.4 ML DISP.SYRIN SUBCUT ONE (20:00)
[2016-11-07] MEDS ORDERED: ASPIRIN 81 MG TABLET, CHEWABLE PO ONE (20:00)
[2016-11-07] MEDS ORDERED: CLOPIDOGREL BISULFATE 75 MG TABLET PO ONE (20:00)
[2016-11-07] MEDS ORDERED: MELATONIN 6 MG PO SCH (22:00)
[2016-11-07] MEDS ORDERED: LISINOPRIL 5 MG TABLET PO ONE (22:00)
[2016-11-07] MEDS: GABAPENTIN 300 MG CAPSULE PO SCH (22:18)
[2016-11-07] MEDS: INSULIN DETEMIR 100 UNIT/ML 3 ML PEN SUBCUT SCH (22:19)
[2016-11-07] MEDS: ATORVASTATIN CALCIUM 40 MG TABLET PO SCH (22:19)
[2016-11-07] MEDS: FLUTICASONE/SALMETEROL DISKUS 250-50 MCG/DOSE IH SCH (22:20)
[2016-11-07] MEDS: INSULIN REG, HUMAN 100 UNIT/ML 3 ML VIAL (PYX) SUBCUT PRN (22:34)
[2016-11-08 01:19] LABS: CREATINE KINASE MB 1.24 ng/mL (<4.55); TROPONIN I 0.014 ng/mL
[2016-11-08] MEDS: ONDANSETRON HCL INJ/PF 4 MG/2 ML SDV IV PRN ×3 (03:29→18:46)
[2016-11-08] MEDS: GABAPENTIN 300 MG CAPSULE PO SCH ×3 (05:58→21:06)
[2016-11-08 06:59] LABS: ABSOLUTE LYMPHOCYTES (AUTO) 0.5 10^3/uL (0.5-4.7); ABSOLUTE MONOCYTES (AUTO) 0.5 10^3/uL (0.1-1.4); ABSOLUTE NEUT (AUTO) 7.4 10^3/uL (1.7-8.2); BASOPHILS % (AUTO) 0.1 % (0-2); HEMATOCRIT 35.1 % (36.0-47.0); HEMOGLOBIN 11.4 g/dL (12.0-15.5); HGB HCT DIFFERENCE -0.9; LYMPHOCYTES % (AUTO) 6.5 % (13-45); MEAN CORPUSCULAR HEMOGLOBIN 29.4 pg (27.0-33.4); MEAN CORPUSCULAR HGB CONC 32.4 g/dL (32.0-36.0); MEAN CORPUSCULAR VOLUME 91 fl (80-97); MONOCYTES % (AUTO) 5.4 % (3-13); RED BLOOD COUNT 3.87 10^6/uL (3.72-5.28); RED CELL DISTRIBUTION WIDTH 14.1 % (11.5-14.0); WHITE BLOOD COUNT 8.4 10^3/uL (4.0-10.5)
[2016-11-08 07:07] LABS: ALANINE AMINOTRANSFERASE 17 U/L (9-52); ALBUMIN 3.6 g/dL (3.5-5.0); ALKALINE PHOSPHATASE 98 U/L (38-126); ANION GAP 7 (5-19); ASPARTATE AMINO TRANSFERASE 21 U/L (14-36); BILIRUBIN,DIRECT 0.4 mg/dL (0.0-0.4); BILIRUBIN,TOTAL 0.4 mg/dL (0.2-1.3); BLOOD UREA NITROGEN 20 mg/dL (7-20); CALCIUM 9.3 mg/dL (8.4-10.2); CARBON DIOXIDE 35 mmol/L (22-30); CHLORIDE 96 mmol/L (98-107); CHOLESTEROL 125.33 mg/dL (0-200); CREATINE KINASE 30 U/L (30-135); CREATININE RESULT 0.68 mg/dL (0.52-1.25); Direct HDL 41 mg/dL (>40); GLUCOSE 247 mg/dL (75-110); POTASSIUM 4.3 mmol/L (3.6-5.0); SODIUM 138.3 mmol/L (137-145); TOTAL PROTEIN 6.6 g/dL (6.3-8.2); TRIGLYCERIDES 151 mg/dL (<150)
[2016-11-08 07:21] LABS: DIRECT LDL 51 mg/dL (<100)
[2016-11-08 07:22] LABS: CREATINE KINASE MB 1.48 ng/mL (<4.55); TROPONIN I 0.016 ng/mL
[2016-11-08 07:23] LABS: VLDL CHOLESTEROL 30.2 mg/dL (10-31)
--- NOTE | 2016-11-08 09:20 | RADIOLOGY REPORT (SQ) ---
EXAM DESCRIPTION: PICC INSERTION; U/S GUIDE FOR VASCULAR ACCESS; FLUORO/CV PLACEMENT COMPLETED DATE/TIME: 11/08/2016 9:02 am; 11/08/2016 9:03 am REASON FOR STUDY: iv ACCESS; IV ACCESS COMPARISON: AP chest 11/07/2016 FLUOROSCOPY TIME: Total fluoro time 26 seconds 1 digital fluoro spot image and 1 ultrasound images saved to PACS. TECHNIQUE: Fluoroscopic and ultrasound guided PICC placement. LIMITATIONS: None. PROCEDURE: After written consent and assessment were obtained, the patient was brought into the fluo roscopy room and place supine on the table. Ultrasound was used on the patient's left arm for PICC a ccess. The left arm was prepped and draped in a sterile fashion along with the ultrasound probe. The entry site was anesthetized with 3.5 mL of 1% lidocaine. A 21 gauge 7 cm needle was advanced through the skin and into the basilic vein under live ultrasound guidance. An ultrasound image was saved to PACS confirming access site. A .018 guide wire was then inserted through the needle and into the pedro ous system. The needle was the removed and an 11 blade scalpel was used to make a 1cm skin incision. A 5 fr peel-away sheath was advanced over the wire and into the venous system. A measurement was the n made using the existing wire and live fluoroscopic guidance. The wire was then removed and the trim med. The PICC was advanced through the peel-away sheath and into the venous system. The peel-away she ath was removed and the catheter was adhered to the patients arm with a stat lock. The catheter was t hen aspirated and flushed and a sterile bandage was placed over the access site. A fluoroscopic spot image was saved to PACS confirming the catheter tip within the superior vena cava. IMPRESSION: SUCCESSFUL PLACEMENT OF A 5 FR DUAL LUMEN 44 CM PICC IN THE LEFT BASILIC VEIN. COMMENT: Patient medication list reviewed: Yes- Quality ID# [id number]:Eligible professional attests to doc umenting in the medical record they obtained, updated, or reviewed the patient's current medications. . Quality ID 145: Final reports for procedures using fluoroscopy that document radiation exposure adelaida emmie, or exposure time and number of fluorographic images (if radiation exposure indices are not avail able) Quality ID #76: The patient was prepped and draped using maximum sterile barrier technique including cap, mask, sterile gown, sterile gloves, a large sterile sheet, hand hygiene, and 2% Chlorhexidine fo r cutaneous antisepsis. When ultrasound is used, sterile ultrasound techniques are followed requiring sterile gel and sterile probes. TECHNICAL DOCUMENTATION: JOB ID: [id number] [employer]- All Rights Reserved
[2016-11-08] MEDS: INSULIN REG, HUMAN 100 UNIT/ML 3 ML VIAL (PYX) SUBCUT PRN ×4 (09:32→22:43)
[2016-11-08] MEDS: ENOXAPARIN SODIUM INJ 40 MG/0.4 ML DISP.SYRIN SUBCUT SCH (09:33)
[2016-11-08] MEDS: METFORMIN HCL 500 MG TABLET PO SCH ×2 (09:34→17:48)
[2016-11-08] MEDS: ASPIRIN 81 MG TABLET, CHEWABLE PO SCH (09:34)
[2016-11-08] MEDS: LISINOPRIL 5 MG TABLET PO SCH (09:36)
[2016-11-08] MEDS: CLOPIDOGREL BISULFATE 75 MG TABLET PO SCH (09:36)
[2016-11-08] MEDS: MAGNESIUM OXIDE 400 MG TABLET PO SCH (09:36)
[2016-11-08] MEDS: SPIRONOLACTONE 25 MG TABLET PO SCH (09:37)
[2016-11-08] MEDS: METOPROLOL SUCCINATE 50 MG TAB.SR.24H PO SCH (09:38)
[2016-11-08] MEDS: TIOTROPIUM BROMIDE DPI 5 CAP/KIT (18 MCG/CAP) IH SCH (09:39)
[2016-11-08] MEDS: FLUTICASONE/SALMETEROL DISKUS 250-50 MCG/DOSE IH SCH ×2 (09:40→21:07)
[2016-11-08] MEDS: INSULIN DETEMIR 100 UNIT/ML 3 ML PEN SUBCUT SCH ×2 (09:40→22:43)
[2016-11-08] MEDS: DULOXETINE HCL 30 MG CAPSULE.DR PO SCH (09:45)
[2016-11-08] MEDS: NORMAL SALINE 10 ML SDV (SCHEDULED) IV SCH ×2 (10:10→21:07)
--- NOTE | 2016-11-08 13:51 | PDOC H&P ---
History of Present Illness Admission Date/PCP: 11/07/16 17:36 TANISHA POLLARD MD History of Present Illness: TORREY MARKS is a 65 year old femaleShe has a history of chronic respiratory failure on home oxygen, she was brought to the emergency room for evaluation of respiratory distress, in the emergency room if venous blood gas was done, pH 7.29, PCO2 74.3, the respiratory was supported with a noninvasive positive pressure ventilation, BiPAP machine. She has multiple comorbid conditions including coronary artery disease, peripheral vascular disease very severe COPD , type 2 diabetes mellitus long history of tobacco abuse. She was recently transferred to [facility] for cardiac catheterization when she had non-ST segment elevated myocardial infarction. She has a history of multiple hospitalizations usually for respiratory related conditions. Past Medical History Cardiac Medical History: Reports: Coronary Artery Disease, Hyperlipidema, Hypertension, Peripheral Vascular Disease Pulmonary Medical History: Reports: Asthma, Bronchitis, Chronic Obstructive Pulmonary Disease (COPD), Respiratory Failure, Sleep Apnea Neurological Medical History: Reports: Migraine Endocrine Medical History: Reports: Diabetes Mellitus Type 2 Renal/ Medical History: Malignancy Medical History: GI Medical History: Musculoskeltal Medical History: Reports: Arthritis, Fibromyalgia Psychiatric Medical History: Reports: Depression Infectious Medical History: Reports: Clostridium Difficile, Methicillin- Resistant Staph Aureus Past Surgical History Past Surgical History: Reports: Amputation, Appendectomy, Cardiac Catheterization, Cholecystectomy, Coronary Stent, Hysterectomy, Orthopedic Surgery - right shoulder, Tubal Ligation, Vascular Surgery Social History Smoking Status: Current Every Day Smoker Frequency of Alcohol Use: None Hx Recreational Drug Use: No Drugs: None Hx Prescription Drug Abuse: No - Advance Directive Resuscitation Status: Full Code Family History Family History: Reviewed & Not Pertinent, Hypertension, Other - Alzheimer's, renal failure Parental Family History Reviewed: Yes Children Family History Reviewed: Yes Sibling(s) Family History Reviewed.: Yes Medication/Allergy Home Medications: Albuterol Sulfate [Proair HFA] 2 puff IH Q4HP PRN 11/07/16 Aspirin [Aspirin 81 mg Chewable Tablet] 81 mg PO DAILY 11/07/16 Atorvastatin Calcium [Lipitor 40 mg Tablet] 40 mg PO QHS 11/07/16 Clopidogrel Bisulfate [Plavix 75 mg Tablet] 75 mg PO DAILY 11/07/16 Duloxetine HCl [Cymbalta] 60 mg PO DAILY 11/07/16 Fluticasone/Salmeterol [Advair 250-50 Diskus 14 Dose/Diskus] 1 inh IH Q12 Gabapentin [Neurontin 300 mg Capsule] 300 mg PO Q8 11/07/16 Insulin Aspart [Novolog Flexpen] 8 unit SQ TID 11/07/16 Insulin Detemir [Levemir Flextouch] 50 unit SQ BID 11/07/16 Lisinopril [Prinivil 2.5 mg Tablet] 2.5 mg PO DAILY 11/07/16 Magnesium Oxide [Magnesium] 400 mg PO DAILY 11/07/16 Melatonin [Melatin] 6 mg PO QHS 11/07/16 Metformin HCl [Metformin HCl ER] 500 mg PO QPM 11/07/16 Metoprolol Succinate [Toprol Xl 50 mg Tab.sr] 50 mg PO DAILY 11/07/16 Pioglitazone HCl [Actos] 45 mg PO DAILY 11/07/16 Simethicone [Gas Relief 80] 80 mg PO QIDP PRN 11/07/16 Spironolactone [Aldactone 25 mg Tablet] 25 mg PO DAILY 11/07/16 Tiotropium [place] [Spiriva Handihaler 18 mcg/dose (30 Dose)] 1 cap IH DAILY Tramadol HCl/Acetaminophen [Ultracet 37.5 mg/325 mg Tablet] 1 each PO Q6 Allergies/Adverse Reactions: codeine [Codeine] Adverse Reaction (Unknown, Verified 08/23/16 08:03) Review of Systems Constitutional: PRESENT: fatigue Eyes: ABSENT: visual disturbances Ears: ABSENT: hearing changes Cardiovascular: PRESENT: dyspnea on exertion Respiratory: PRESENT: cough, dyspnea Gastrointestinal: ABSENT: abdominal pain, constipation, diarrhea, hematemesis, hematochezia, nausea, vomiting Genitourinary: ABSENT: dysuria, hematuria Musculoskeletal: ABSENT: joint swelling Integumentary: ABSENT: rash, wounds Neurological: ABSENT: abnormal gait, abnormal speech, confusion, dizziness, focal weakness, syncope Psychiatric: ABSENT: anxiety, depression, homidical ideation, suicidal ideation Endocrine: ABSENT: cold intolerance, heat intolerance, menstrual abnormalities, polydipsia, polyuria Hematologic/Lymphatic: ABSENT: easy bleeding, easy bruising, lymphadenopathy Physical Exam Vital Signs: Temp Pulse Resp BP Pulse Ox 98.4 F 84 13 116/81 99 11/08/16 07:40 11/08/16 07:40 11/08/16 07:40 11/08/16 07:40 11/08/16 07:40 Intake & Output 11/07/16 11/08/16 11/09/16 06:59 06:59 06:59 Intake Total 854 Balance 854 Weight 117.8 kg General appearance: PRESENT: mild distress Head exam: PRESENT: atraumatic, normocephalic Eye exam: PRESENT: conjunctiva pink, EOMI, PERRLA Ear exam: PRESENT: normal external ear exam Mouth exam: PRESENT: moist, tongue midline Neck exam: PRESENT: full ROM Respiratory exam: PRESENT: rhonchi Cardiovascular exam: PRESENT: RRR, +S1, +S2 Pulses: PRESENT: normal dorsalis pedis pul, +2 pedal pulses bilateral Vascular exam: PRESENT: normal capillary refill GI/Abdominal exam: PRESENT: normal bowel sounds, soft Rectal exam: PRESENT: deferred Neurological exam: PRESENT: alert, CN II-XII grossly intact Psychiatric exam: PRESENT: appropriate affect, normal mood Skin exam: PRESENT: dry, intact, warm Results Laboratory Results: 11/08/16 05:54 11/08/16 05:54 11/07/16 11/07/16 11/07/16 18:12 18:12 18:12 WBC RBC Hgb Hct MCV MCH MCHC RDW Plt Count Seg Neutrophils % Lymphocytes % Monocytes % Eosinophils % Basophils % Absolute Neutrophils Absolute Lymphocytes Absolute Monocytes Absolute Eosinophils Absolute Basophils Sodium Potassium Chloride Carbon Dioxide Anion Gap BUN Creatinine Est GFR ( Amer) Est GFR (Non-Af Amer) Glucose Calcium Phosphorus 2.3 L Magnesium 2.0 Total Bilirubin AST ALT Alkaline Phosphatase Ammonia < 8.7 L Total Protein Albumin Triglycerides Cholesterol LDL Cholesterol Direct VLDL Cholesterol HDL Cholesterol Amylase 47 Lipase 49.3 TSH 0.16 L Free T4 1.43 11/08/16 11/08/16 05:54 05:54 WBC 8.4 RBC 3.87 Hgb 11.4 L Hct 35.1 L MCV 91 MCH 29.4 MCHC 32.4 RDW 14.1 H Plt Count 322 Seg Neutrophils % 88.0 H Lymphocytes % 6.5 L Monocytes % 5.4 Eosinophils % 0.0 Basophils % 0.1 Absolute Neutrophils 7.4 Absolute Lymphocytes 0.5 Absolute Monocytes 0.5 Absolute Eosinophils 0.0 Absolute Basophils 0.0 Sodium 138.3 Potassium 4.3 Chloride 96 L Carbon Dioxide 35 H Anion Gap 7 BUN 20 Creatinine 0.68 Est GFR ( Amer) > 60 Est GFR (Non-Af Amer) > 60 Glucose 247 H Calcium 9.3 Phosphorus Magnesium Total Bilirubin 0.4 AST 21 ALT 17 Alkaline Phosphatase 98 Ammonia Total Protein 6.6 Albumin 3.6 Triglycerides 151 H Cholesterol 125.33 LDL Cholesterol Direct 51 VLDL Cholesterol 30.2 HDL Cholesterol 41 Amylase Lipase TSH Free T4 11/07/16 11/07/16 11/07/16 18:12 18:12 18:12 Creatine Kinase 33 CK-MB (CK-2) 1.10 Troponin I 0.018 NT-Pro-B Natriuret Pep 2110 H 11/08/16 11/08/16 11/08/16 00:35 00:35 05:54 Creatine Kinase 40 CK-MB (CK-2) 1.24 1.48 Troponin I 0.014 0.016 NT-Pro-B Natriuret Pep 11/08/16 05:54 Creatine Kinase 30 CK-MB (CK-2) Troponin I NT-Pro-B Natriuret Pep Impressions: Chest X-Ray 11/07/16 12:13 IMPRESSION: NO ACUTE RADIOGRAPHIC FINDING IN THE CHEST. Guidance Fluoroscopy 11/08/16 00:00 IMPRESSION: SUCCESSFUL PLACEMENT OF A 5 FR DUAL LUMEN 44 CM PICC IN THE LEFT BASILIC VEIN. Interventional Vascular Procedure 11/08/16 00:00 IMPRESSION: SUCCESSFUL PLACEMENT OF A 5 FR DUAL LUMEN 44 CM PICC IN THE LEFT BASILIC VEIN. PICC Line Insertion 11/08/16 00:00 IMPRESSION: SUCCESSFUL PLACEMENT OF A 5 FR DUAL LUMEN 44 CM PICC IN THE LEFT BASILIC VEIN. Assessment & Plan - Diagnosis (1) Acute hypercapnic respiratory failure Is this a current diagnosis for this admission?: Yes Plan: She is not overly wheezing at this time, no need for Solu-Medrol, she will be treated with IV antibiotic, she will continue noninvasive positive pressure ventilation with BiPAP. The acute hypercapnic respiratory failure is probably due to combination of progressive decline of chronic obstructive lung disease, obesity, deconditioning (2) Diabetes mellitus type 2 in obese Is this a current diagnosis for this admission?: Yes (3) Peripheral vascular disease Is this a current diagnosis for this admission?: Yes
--- NOTE | 2016-11-08 18:40 | PDOC PROGRESS REPORT ---
Subjective Progress Note for:: 11/08/16 Subjective:: Patient was seen by the bedside she was admitted yesterday for the management of acute hypercapnic respiratory failure due to COPD. She complained of dysuria and burning sensation when she urinates. She also complained of pain involving the legs Physical Exam Vital Signs: Temp Pulse Resp BP Pulse Ox 99.1 F 88 20 110/59 L 97 11/08/16 15:09 11/08/16 15:09 11/08/16 15:09 11/08/16 15:09 11/08/16 15:09 Intake & Output 11/07/16 11/08/16 11/09/16 06:59 06:59 06:59 Intake Total 854 696 Balance 854 696 Weight 117.8 kg 117.8 kg General appearance: PRESENT: mild distress Eye exam: PRESENT: PERRLA Respiratory exam: PRESENT: rhonchi Cardiovascular exam: PRESENT: +S1, +S2 GI/Abdominal exam: PRESENT: soft Neurological exam: PRESENT: alert, CN II-XII grossly intact Results Laboratory Results: 11/08/16 05:54 11/08/16 05:54 11/07/16 11/07/16 11/07/16 18:12 18:12 18:12 WBC RBC Hgb Hct MCV MCH MCHC RDW Plt Count Seg Neutrophils % Lymphocytes % Monocytes % Eosinophils % Basophils % Absolute Neutrophils Absolute Lymphocytes Absolute Monocytes Absolute Eosinophils Absolute Basophils Sodium Potassium Chloride Carbon Dioxide Anion Gap BUN Creatinine Est GFR ( Amer) Est GFR (Non-Af Amer) Glucose Calcium Phosphorus 2.3 L Magnesium 2.0 Total Bilirubin AST ALT Alkaline Phosphatase Ammonia < 8.7 L Total Protein Albumin Triglycerides Cholesterol LDL Cholesterol Direct VLDL Cholesterol HDL Cholesterol Amylase 47 Lipase 49.3 TSH 0.16 L Free T4 1.43 11/08/16 11/08/16 05:54 05:54 WBC 8.4 RBC 3.87 Hgb 11.4 L Hct 35.1 L MCV 91 MCH 29.4 MCHC 32.4 RDW 14.1 H Plt Count 322 Seg Neutrophils % 88.0 H Lymphocytes % 6.5 L Monocytes % 5.4 Eosinophils % 0.0 Basophils % 0.1 Absolute Neutrophils 7.4 Absolute Lymphocytes 0.5 Absolute Monocytes 0.5 Absolute Eosinophils 0.0 Absolute Basophils 0.0 Sodium 138.3 Potassium 4.3 Chloride 96 L Carbon Dioxide 35 H Anion Gap 7 BUN 20 Creatinine 0.68 Est GFR ( Amer) > 60 Est GFR (Non-Af Amer) > 60 Glucose 247 H Calcium 9.3 Phosphorus Magnesium Total Bilirubin 0.4 AST 21 ALT 17 Alkaline Phosphatase 98 Ammonia Total Protein 6.6 Albumin 3.6 Triglycerides 151 H Cholesterol 125.33 LDL Cholesterol Direct 51 VLDL Cholesterol 30.2 HDL Cholesterol 41 Amylase Lipase TSH Free T4 11/07/16 11/07/16 11/07/16 18:12 18:12 18:12 Creatine Kinase 33 CK-MB (CK-2) 1.10 Troponin I 0.018 NT-Pro-B Natriuret Pep 2110 H 11/08/16 11/08/16 11/08/16 00:35 00:35 05:54 Creatine Kinase 40 CK-MB (CK-2) 1.24 1.48 Troponin I 0.014 0.016 NT-Pro-B Natriuret Pep 11/08/16 05:54 Creatine Kinase 30 CK-MB (CK-2) Troponin I NT-Pro-B Natriuret Pep Impressions: Chest X-Ray 11/07/16 12:13 IMPRESSION: NO ACUTE RADIOGRAPHIC FINDING IN THE CHEST. Guidance Fluoroscopy 11/08/16 00:00 IMPRESSION: SUCCESSFUL PLACEMENT OF A 5 FR DUAL LUMEN 44 CM PICC IN THE LEFT BASILIC VEIN. Interventional Vascular Procedure 11/08/16 00:00 IMPRESSION: SUCCESSFUL PLACEMENT OF A 5 FR DUAL LUMEN 44 CM PICC IN THE LEFT BASILIC VEIN. PICC Line Insertion 11/08/16 00:00 IMPRESSION: SUCCESSFUL PLACEMENT OF A 5 FR DUAL LUMEN 44 CM PICC IN THE LEFT BASILIC VEIN. Assessment & Plan - Diagnosis (1) Acute hypercapnic respiratory failure Is this a current diagnosis for this admission?: Yes (2) Diabetes mellitus type 2 in obese Is this a current diagnosis for this admission?: Yes (3) Peripheral vascular disease Is this a current diagnosis for this admission?: Yes (4) COPD (chronic obstructive pulmonary disease) Qualifiers: COPD type: COPD with acute exacerbation Qualified Code(s): J44.1 - Chronic obstructive pulmonary disease with (acute) exacerbation (5) Coronary artery disease Qualifiers: Coronary Disease-Associated Artery/Lesion type: [place] artery [place] vs. transplanted heart: [place] heart Associated angina: angina presence unspecified Qualified Code(s): I25.10 - Atherosclerotic heart disease of [place] coronary artery without angina pectoris Is this a current diagnosis for this admission?: Yes (6) Physical deconditioning Is this a current diagnosis for this admission?: Yes (7) Urinary tract infection Qualifiers: Urinary tract infection type: site unspecified Hematuria presence: without hematuria Qualified Code(s): N39.0 - Urinary tract infection, site not specified Is this a current diagnosis for this admission?: Yes Plan: The urinary symptoms suggest UTI, urine culture UA is collected, she will empirically continue Levaquin
[2016-11-08] MEDS: TRAMADOL HCL 50 MG TABLET PO SCH (18:46)
[2016-11-08] MEDS ORDERED: LEVOFLOXACIN 750 MG/D5W RTU 750 MG/150 ML RTUPB IV SCH (19:00)
[2016-11-08] MEDS ORDERED: LEVOFLOXACIN 750 MG/D5W RTU 750 MG/150 ML RTUPB IV ONE ×2 (19:30→22:00)
[2016-11-08] MEDS: ATORVASTATIN CALCIUM 40 MG TABLET PO SCH (21:06)
[2016-11-09 02:41] LABS: APPEARANCE,URINE CLOUDY; BILIRUBIN,URINE NEGATIVE (NEGATIVE); GLUCOSE, URINE 150 mg/dL (NEGATIVE); KETONES,URINE NEGATIVE (NEGATIVE); LEUKOCYTE ESTERASE,URINE SMALL (NEGATIVE); NITRITE,URINE NEGATIVE (NEGATIVE); PROTEIN,URINE NEGATIVE (NEGATIVE); URINE SPECIFIC GRAVITY 1.027; UROBILINOGEN,URINE NEGATIVE mg/dL (<2.0)
[2016-11-09] MEDS: GABAPENTIN 300 MG CAPSULE PO SCH ×3 (05:47→21:36)
[2016-11-09 06:44] LABS: ABSOLUTE EOSINOPHILS # (AUTO) 0.2 10^3/uL (0.0-0.6); ABSOLUTE LYMPHOCYTES (AUTO) 1.7 10^3/uL (0.5-4.7); ABSOLUTE MONOCYTES (AUTO) 0.7 10^3/uL (0.1-1.4); ABSOLUTE NEUT (AUTO) 4.6 10^3/uL (1.7-8.2); BASOPHILS % (AUTO) 0.3 % (0-2); EOSINOPHILS % (AUTO) 2.3 % (0-6); HEMATOCRIT 31.2 % (36.0-47.0); HEMOGLOBIN 10.2 g/dL (12.0-15.5); HGB HCT DIFFERENCE -0.6; LYMPHOCYTES % (AUTO) 24.1 % (13-45); MEAN CORPUSCULAR HEMOGLOBIN 29.8 pg (27.0-33.4); MEAN CORPUSCULAR HGB CONC 32.6 g/dL (32.0-36.0); MEAN CORPUSCULAR VOLUME 91 fl (80-97); MONOCYTES % (AUTO) 9.7 % (3-13); RED BLOOD COUNT 3.41 10^6/uL (3.72-5.28); RED CELL DISTRIBUTION WIDTH 14.6 % (11.5-14.0); SEGMENTED NEUTROPHILS % (AUTO) 63.6 % (42-78); WHITE BLOOD COUNT 7.3 10^3/uL (4.0-10.5)
[2016-11-09 06:55] LABS: ANION GAP 7 (5-19); BLOOD UREA NITROGEN 26 mg/dL (7-20); CALCIUM 8.9 mg/dL (8.4-10.2); CARBON DIOXIDE 36 mmol/L (22-30); CHLORIDE 95 mmol/L (98-107); CREATININE RESULT 0.87 mg/dL (0.52-1.25); GLUCOSE 222 mg/dL (75-110); POTASSIUM 3.9 mmol/L (3.6-5.0); SODIUM 138.2 mmol/L (137-145)
--- NOTE | 2016-11-09 10:02 | PDOC PROGRESS REPORT ---
Subjective Progress Note for:: 11/09/16 Subjective:: Patient is currently doing fair. Denied any chest pain without any shortness of the breath. Patients ask for the more pain medications as usual Patient's otherwise admitted because of the COPD and respiratory problems Physical Exam Vital Signs: Temp Pulse Resp BP Pulse Ox 98.7 F 83 16 101/53 L 95 11/09/16 02:30 11/09/16 02:30 11/09/16 02:30 11/09/16 02:30 11/09/16 02:30 Intake & Output 11/08/16 11/09/16 11/10/16 06:59 06:59 06:59 Intake Total 854 3018 Balance 854 3018 Weight 117.8 kg 117 kg General appearance: PRESENT: no acute distress, well-developed, well-nourished Head exam: PRESENT: atraumatic, normocephalic Eye exam: PRESENT: conjunctiva pink, EOMI, PERRLA. ABSENT: scleral icterus Ear exam: PRESENT: normal external ear exam Mouth exam: PRESENT: moist, tongue midline Neck exam: PRESENT: full ROM. ABSENT: carotid bruit, JVD, lymphadenopathy, thyromegaly Respiratory exam: PRESENT: clear to auscultation rolf Cardiovascular exam: PRESENT: RRR. ABSENT: diastolic murmur, rubs, systolic murmur Pulses: PRESENT: normal dorsalis pedis pul, +2 pedal pulses bilateral Vascular exam: PRESENT: normal capillary refill GI/Abdominal exam: PRESENT: normal bowel sounds, soft. ABSENT: distended, guarding, mass, organolmegaly, rebound, tenderness Rectal exam: PRESENT: deferred Neurological exam: PRESENT: alert, awake, oriented to person, oriented to place , oriented to time, oriented to situation, CN II-XII grossly intact. ABSENT: motor sensory deficit Psychiatric exam: PRESENT: appropriate affect, normal mood. ABSENT: homicidal ideation, suicidal ideation Skin exam: PRESENT: dry, intact, warm. ABSENT: cyanosis, rash Results Laboratory Results: 11/09/16 06:20 11/09/16 06:20 11/08/16 11/09/16 11/09/16 23:30 06:20 06:20 WBC 7.3 RBC 3.41 L Hgb 10.2 L Hct 31.2 L MCV 91 MCH 29.8 MCHC 32.6 RDW 14.6 H Plt Count 265 Seg Neutrophils % 63.6 Lymphocytes % 24.1 Monocytes % 9.7 Eosinophils % 2.3 Basophils % 0.3 Absolute Neutrophils 4.6 Absolute Lymphocytes 1.7 Absolute Monocytes 0.7 Absolute Eosinophils 0.2 Absolute Basophils 0.0 Sodium 138.2 Potassium 3.9 Chloride 95 L Carbon Dioxide 36 H Anion Gap 7 BUN 26 H Creatinine 0.87 Est GFR ( Amer) > 60 Est GFR (Non-Af Amer) > 60 Glucose 222 H Calcium 8.9 Urine Color YELLOW Urine Appearance CLOUDY Urine pH 7.0 Ur Specific [place] 1.027 Urine Protein NEGATIVE Urine Glucose (UA) 150 H Urine Ketones NEGATIVE Urine Blood SMALL H Urine Nitrite NEGATIVE Ur Leukocyte Esterase SMALL H Urine WBC (Auto) 25 Urine RBC (Auto) 8 11/07/16 11/07/16 11/07/16 18:12 18:12 18:12 Creatine Kinase 33 CK-MB (CK-2) 1.10 Troponin I 0.018 NT-Pro-B Natriuret Pep 2110 H 11/08/16 11/08/16 11/08/16 00:35 00:35 05:54 Creatine Kinase 40 CK-MB (CK-2) 1.24 1.48 Troponin I 0.014 0.016 NT-Pro-B Natriuret Pep 11/08/16 05:54 Creatine Kinase 30 CK-MB (CK-2) Troponin I NT-Pro-B Natriuret Pep Impressions: Chest X-Ray 11/07/16 12:13 IMPRESSION: NO ACUTE RADIOGRAPHIC FINDING IN THE CHEST. Guidance Fluoroscopy 11/08/16 00:00 IMPRESSION: SUCCESSFUL PLACEMENT OF A 5 FR DUAL LUMEN 44 CM PICC IN THE LEFT BASILIC VEIN. Interventional Vascular Procedure 11/08/16 00:00 IMPRESSION: SUCCESSFUL PLACEMENT OF A 5 FR DUAL LUMEN 44 CM PICC IN THE LEFT BASILIC VEIN. PICC Line Insertion 11/08/16 00:00 IMPRESSION: SUCCESSFUL PLACEMENT OF A 5 FR DUAL LUMEN 44 CM PICC IN THE LEFT BASILIC VEIN. Assessment & Plan - Diagnosis (1) Acute chronic obstructive pulmonary disease with respiratory distress Is this a current diagnosis for this admission?: Yes Plan: Currently all improving (2) Coronary artery disease Qualifiers: Coronary Disease-Associated Artery/Lesion type: [place] artery [place] vs. transplanted heart: [place] heart Associated angina: angina presence unspecified Qualified Code(s): I25.10 - Atherosclerotic heart disease of [place] coronary artery without angina pectoris Is this a current diagnosis for this admission?: Yes Plan: Patient recently in the [facility] and all workup was stable (3) Diabetes mellitus type 2 in obese Is this a current diagnosis for this admission?: Yes Plan: Continues to sliding scale (4) E. coli UTI Is this a current diagnosis for this admission?: Yes Plan: Continues to antibiotic (5) Narcotic dependence Is this a current diagnosis for this admission?: Yes Plan: Is currently on tramadol (6) Sleep apnea syndrome Is this a current diagnosis for this admission?: Yes Plan: The CPAP at night (7) Coronary artery disease Qualifiers: Coronary Disease-Associated Artery/Lesion type: [place] artery [place] vs. transplanted heart: [place] heart Associated angina: without angina Qualified Code(s): I25.10 - Atherosclerotic heart disease of [place] coronary artery without angina pectoris Is this a current diagnosis for this admission?: Yes - Time Time Spent with patient: 15-24 minutes Medications reviewed and adjusted accordingly: Yes Anticipated discharge: Home - Inpatient Certification Medical Necessity: Need Close Monitoring Due to Risk of Patient Decompensation Post Hospital Care: D/C [employer] Finger [employer] Material Documentation - Plan Summary Plan Summary: stable
[2016-11-09] MEDS: INSULIN REG, HUMAN 100 UNIT/ML 3 ML VIAL (PYX) SUBCUT PRN ×2 (11:23→12:30)
[2016-11-09] MEDS: TIOTROPIUM BROMIDE DPI 5 CAP/KIT (18 MCG/CAP) IH SCH (11:25)
[2016-11-09] MEDS: ENOXAPARIN SODIUM INJ 40 MG/0.4 ML DISP.SYRIN SUBCUT SCH (11:25)
[2016-11-09] MEDS: TRAMADOL HCL 50 MG TABLET PO SCH ×2 (11:26→17:21)
[2016-11-09] MEDS: NORMAL SALINE 10 ML SDV (SCHEDULED) IV SCH ×2 (11:26→21:35)
[2016-11-09] MEDS: FLUTICASONE/SALMETEROL DISKUS 250-50 MCG/DOSE IH SCH ×2 (11:27→21:36)
[2016-11-09] MEDS: DULOXETINE HCL 30 MG CAPSULE.DR PO SCH (11:28)
[2016-11-09] MEDS: CLOPIDOGREL BISULFATE 75 MG TABLET PO SCH (11:29)
[2016-11-09] MEDS: LISINOPRIL 5 MG TABLET PO SCH (11:29)
[2016-11-09] MEDS: SPIRONOLACTONE 25 MG TABLET PO SCH (11:30)
[2016-11-09] MEDS: METOPROLOL SUCCINATE 50 MG TAB.SR.24H PO SCH (11:31)
[2016-11-09] MEDS: MAGNESIUM OXIDE 400 MG TABLET PO SCH (11:31)
[2016-11-09] MEDS: METFORMIN HCL 500 MG TABLET PO SCH ×2 (11:32→17:20)
[2016-11-09] MEDS: INSULIN DETEMIR 100 UNIT/ML 3 ML PEN SUBCUT SCH ×2 (11:33→21:36)
[2016-11-09] MEDS: ASPIRIN 81 MG TABLET, CHEWABLE PO SCH (11:35)
[2016-11-09] MEDS: SIMETHICONE 80 MG TAB.CHEW PO PRN ×2 (11:35→21:49)
[2016-11-09] MEDS: ONDANSETRON HCL INJ/PF 4 MG/2 ML SDV IV PRN ×2 (11:38→21:36)
[2016-11-09] MEDS: LEVOFLOXACIN 750 MG/D5W RTU 750 MG/150 ML RTUPB IV SCH (17:21)
[2016-11-09] MEDS: ATORVASTATIN CALCIUM 40 MG TABLET PO SCH (21:36)
[2016-11-10] MEDS: GABAPENTIN 300 MG CAPSULE PO SCH ×4 (05:04→23:25)
[2016-11-10 05:26] LABS: ABSOLUTE EOSINOPHILS # (AUTO) 0.3 10^3/uL (0.0-0.6); ABSOLUTE LYMPHOCYTES (AUTO) 1.8 10^3/uL (0.5-4.7); ABSOLUTE MONOCYTES (AUTO) 0.8 10^3/uL (0.1-1.4); ABSOLUTE NEUT (AUTO) 4.4 10^3/uL (1.7-8.2); BASOPHILS % (AUTO) 0.5 % (0-2); EOSINOPHILS % (AUTO) 3.7 % (0-6); HEMATOCRIT 32.2 % (36.0-47.0); HEMOGLOBIN 10.5 g/dL (12.0-15.5); HGB HCT DIFFERENCE -0.7; LYMPHOCYTES % (AUTO) 24.7 % (13-45); MEAN CORPUSCULAR HEMOGLOBIN 29.6 pg (27.0-33.4); MEAN CORPUSCULAR HGB CONC 32.5 g/dL (32.0-36.0); MEAN CORPUSCULAR VOLUME 91 fl (80-97); MONOCYTES % (AUTO) 10.5 % (3-13); RED BLOOD COUNT 3.53 10^6/uL (3.72-5.28); RED CELL DISTRIBUTION WIDTH 14.8 % (11.5-14.0); SEGMENTED NEUTROPHILS % (AUTO) 60.6 % (42-78); WHITE BLOOD COUNT 7.2 10^3/uL (4.0-10.5)
[2016-11-10 06:11] LABS: ANION GAP 9 (5-19); BLOOD UREA NITROGEN 20 mg/dL (7-20); CARBON DIOXIDE 36 mmol/L (22-30); CHLORIDE 95 mmol/L (98-107); CREATININE RESULT 1.03 mg/dL (0.52-1.25); GLUCOSE 174 mg/dL (75-110); POTASSIUM 4.1 mmol/L (3.6-5.0); SODIUM 139.9 mmol/L (137-145)
[2016-11-10] MEDS: INSULIN REG, HUMAN 100 UNIT/ML 3 ML VIAL (PYX) SUBCUT PRN (07:48)
[2016-11-10] MEDS: FLUTICASONE/SALMETEROL DISKUS 250-50 MCG/DOSE IH SCH ×2 (10:35→22:15)
[2016-11-10] MEDS: INSULIN DETEMIR 100 UNIT/ML 3 ML PEN SUBCUT SCH ×2 (10:35→22:57)
[2016-11-10] MEDS: DULOXETINE HCL 30 MG CAPSULE.DR PO SCH (10:36)
[2016-11-10] MEDS: ENOXAPARIN SODIUM INJ 40 MG/0.4 ML DISP.SYRIN SUBCUT SCH (10:36)
[2016-11-10] MEDS: METOPROLOL SUCCINATE 50 MG TAB.SR.24H PO SCH (10:36)
[2016-11-10] MEDS: ASPIRIN 81 MG TABLET, CHEWABLE PO SCH (10:37)
[2016-11-10] MEDS: METFORMIN HCL 500 MG TABLET PO SCH ×2 (10:37→18:12)
[2016-11-10] MEDS: CLOPIDOGREL BISULFATE 75 MG TABLET PO SCH (10:37)
[2016-11-10] MEDS: MAGNESIUM OXIDE 400 MG TABLET PO SCH (10:37)
[2016-11-10] MEDS: TRAMADOL HCL 50 MG TABLET PO SCH ×3 (10:37→22:16)
[2016-11-10] MEDS: LISINOPRIL 5 MG TABLET PO SCH (10:37)
[2016-11-10] MEDS: SPIRONOLACTONE 25 MG TABLET PO SCH (10:37)
[2016-11-10] MEDS: NORMAL SALINE 10 ML SDV (SCHEDULED) IV SCH ×2 (10:38→22:16)
[2016-11-10] MEDS: TIOTROPIUM BROMIDE DPI 5 CAP/KIT (18 MCG/CAP) IH SCH (10:38)
--- NOTE | 2016-11-10 13:16 | PDOC PROGRESS REPORT ---
Subjective Progress Note for:: 11/10/16 Subjective:: She is currently doing fair Chest denied any chest pain denied any shortness of the breath No fever Physical Exam Vital Signs: Temp Pulse Resp BP Pulse Ox 98.5 F 82 20 105/46 L 96 11/10/16 08:06 11/10/16 08:06 11/10/16 08:06 11/10/16 08:06 11/10/16 08:06 Intake & Output 11/09/16 11/10/16 11/11/16 06:59 06:59 06:59 Intake Total 3018 3517 Output Total 300 Balance 3018 3217 Weight 117 kg 120.4 kg General appearance: PRESENT: no acute distress, well-developed, well-nourished Head exam: PRESENT: atraumatic, normocephalic Eye exam: PRESENT: conjunctiva pink, EOMI, PERRLA. ABSENT: scleral icterus Ear exam: PRESENT: normal external ear exam Mouth exam: PRESENT: moist, tongue midline Neck exam: PRESENT: full ROM. ABSENT: carotid bruit, JVD, lymphadenopathy, thyromegaly Respiratory exam: PRESENT: clear to auscultation rolf Cardiovascular exam: PRESENT: RRR. ABSENT: diastolic murmur, rubs, systolic murmur Pulses: PRESENT: normal dorsalis pedis pul, +2 pedal pulses bilateral Vascular exam: PRESENT: normal capillary refill GI/Abdominal exam: PRESENT: normal bowel sounds, soft. ABSENT: distended, guarding, mass, organolmegaly, rebound, tenderness Rectal exam: PRESENT: deferred Neurological exam: PRESENT: alert, awake, oriented to person, oriented to place , oriented to time, oriented to situation, CN II-XII grossly intact. ABSENT: motor sensory deficit Psychiatric exam: PRESENT: appropriate affect, normal mood. ABSENT: homicidal ideation, suicidal ideation Skin exam: PRESENT: dry, intact, warm. ABSENT: cyanosis, rash Results Laboratory Results: 11/10/16 04:20 11/10/16 04:20 11/10/16 11/10/16 04:20 04:20 WBC 7.2 RBC 3.53 L Hgb 10.5 L Hct 32.2 L MCV 91 MCH 29.6 MCHC 32.5 RDW 14.8 H Plt Count 279 Seg Neutrophils % 60.6 Lymphocytes % 24.7 Monocytes % 10.5 Eosinophils % 3.7 Basophils % 0.5 Absolute Neutrophils 4.4 Absolute Lymphocytes 1.8 Absolute Monocytes 0.8 Absolute Eosinophils 0.3 Absolute Basophils 0.0 Sodium 139.9 Potassium 4.1 Chloride 95 L Carbon Dioxide 36 H Anion Gap 9 BUN 20 Creatinine 1.03 Est GFR ( Amer) > 60 Est GFR (Non-Af Amer) 54 L Glucose 174 H Calcium 9.0 11/07/16 11/07/16 11/07/16 18:12 18:12 18:12 Creatine Kinase 33 CK-MB (CK-2) 1.10 Troponin I 0.018 NT-Pro-B Natriuret Pep 2110 H 11/08/16 11/08/16 11/08/16 00:35 00:35 05:54 Creatine Kinase 40 CK-MB (CK-2) 1.24 1.48 Troponin I 0.014 0.016 NT-Pro-B Natriuret Pep 11/08/16 05:54 Creatine Kinase 30 CK-MB (CK-2) Troponin I NT-Pro-B Natriuret Pep Impressions: Chest X-Ray 11/07/16 12:13 IMPRESSION: NO ACUTE RADIOGRAPHIC FINDING IN THE CHEST. Guidance Fluoroscopy 11/08/16 00:00 IMPRESSION: SUCCESSFUL PLACEMENT OF A 5 FR DUAL LUMEN 44 CM PICC IN THE LEFT BASILIC VEIN. Interventional Vascular Procedure 11/08/16 00:00 IMPRESSION: SUCCESSFUL PLACEMENT OF A 5 FR DUAL LUMEN 44 CM PICC IN THE LEFT BASILIC VEIN. PICC Line Insertion 11/08/16 00:00 IMPRESSION: SUCCESSFUL PLACEMENT OF A 5 FR DUAL LUMEN 44 CM PICC IN THE LEFT BASILIC VEIN. Assessment & Plan - Diagnosis (1) Acute chronic obstructive pulmonary disease with respiratory distress Is this a current diagnosis for this admission?: Yes Plan: Currently all improving (2) Coronary artery disease Qualifiers: Coronary Disease-Associated Artery/Lesion type: [place] artery [place] vs. transplanted heart: [place] heart Associated angina: angina presence unspecified Qualified Code(s): I25.10 - Atherosclerotic heart disease of [place] coronary artery without angina pectoris Is this a current diagnosis for this admission?: Yes Plan: Patient recently in the [facility] and all workup was stable (3) Diabetes mellitus type 2 in obese Is this a current diagnosis for this admission?: Yes Plan: Continues to sliding scale (4) E. coli UTI Is this a current diagnosis for this admission?: Yes Plan: Continues to antibiotic (5) Narcotic dependence Is this a current diagnosis for this admission?: Yes Plan: Is currently on tramadol (6) Sleep apnea syndrome Is this a current diagnosis for this admission?: Yes Plan: The CPAP at night (7) Coronary artery disease Qualifiers: Coronary Disease-Associated Artery/Lesion type: [place] artery [place] vs. 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
[2016-11-10] MEDS ORDERED: MORPHINE SULFATE 10 MG/ML INJ IV ONE (15:00)
[2016-11-10] MEDS: LEVOFLOXACIN 750 MG/D5W RTU 750 MG/150 ML RTUPB IV SCH (18:12)
--- NOTE | 2016-11-10 18:19 | RADIOLOGY REPORT (SQ) ---
EXAM DESCRIPTION: L SPINE WHOLE COMPLETED DATE/TIME: 11/10/2016 4:25 pm REASON FOR STUDY: back pain COMPARISON: None. NUMBER OF VIEWS: Five views including obliques. TECHNIQUE: AP, lateral, oblique, and sacral radiographic images acquired of the lumbar spine. LIMITATIONS: None. FINDINGS: MINERALIZATION: Osteopenia SEGMENTATION: Normal segmentation. ALIGNMENT: Normal. VERTEBRAE: T12 compression fracture present on a a CT chest 09/04/2016. Possible new compression frac tures of L2 and L5. DISCS: Degenerative disc disease L4-5 and L5-S1. POSTERIOR ELEMENTS: Pedicles and facets are intact. No pars defect or posterior arch defects. HARDWARE: None in the spine. PARASPINAL SOFT TISSUES: Normal. PELVIS: Intact as visualized. No fractures or worrisome bone lesions. SI joints intact. OTHER: Vascular stent. IMPRESSION: Possible new minimal compression fractures of L2 and L5. Generalized osteopenia. Chronic T12 compression fracture. TECHNICAL DOCUMENTATION: JOB ID: [id number] [employer]- All Rights Reserved
--- NOTE | 2016-11-10 18:20 | RADIOLOGY REPORT (SQ) ---
EXAM DESCRIPTION: KNEE LEFT 2 VIEWS COMPLETED DATE/TIME: 11/10/2016 4:25 pm REASON FOR STUDY: knee pain COMPARISON: None. NUMBER OF VIEWS: Two views. TECHNIQUE: AP and lateral radiographic images acquired of the left knee. LIMITATIONS: None. FINDINGS: MINERALIZATION: Normal. BONES: No acute fracture or dislocation. No worrisome bone lesions. JOINT: No effusion. SOFT TISSUES: No soft tissue swelling. No radio-opaque foreign body. OTHER: No other significant finding. IMPRESSION: NEGATIVE STUDY OF THE LEFT KNEE. NO RADIOGRAPHIC EVIDENCE OF ACUTE INJURY. TECHNICAL DOCUMENTATION: JOB ID: [id number] [employer]- All Rights Reserved
[2016-11-10] MEDS ORDERED: MORPHINE SULFATE 10 MG/ML INJ IV PRN (20:05)
[2016-11-10] MEDS: ATORVASTATIN CALCIUM 40 MG TABLET PO SCH (22:16)
[2016-11-10] MEDS ORDERED: INSULIN DETEMIR 100 UNIT/ML 3 ML PEN SUBCUT ONE (22:58)
[2016-11-11] MEDS: TRAMADOL HCL 50 MG TABLET PO SCH (05:04)
[2016-11-11] MEDS: GABAPENTIN 300 MG CAPSULE PO SCH ×4 (05:04→23:47)
[2016-11-11 06:22] LABS: ABSOLUTE EOSINOPHILS # (AUTO) 0.4 10^3/uL (0.0-0.6); ABSOLUTE LYMPHOCYTES (AUTO) 1.5 10^3/uL (0.5-4.7); ABSOLUTE MONOCYTES (AUTO) 0.9 10^3/uL (0.1-1.4); ABSOLUTE NEUT (AUTO) 4.4 10^3/uL (1.7-8.2); BASOPHILS % (AUTO) 0.5 % (0-2); EOSINOPHILS % (AUTO) 5.7 % (0-6); HEMATOCRIT 32.3 % (36.0-47.0); HEMOGLOBIN 10.4 g/dL (12.0-15.5); HGB HCT DIFFERENCE -1.1; LYMPHOCYTES % (AUTO) 21.2 % (13-45); MEAN CORPUSCULAR HEMOGLOBIN 29.5 pg (27.0-33.4); MEAN CORPUSCULAR HGB CONC 32.2 g/dL (32.0-36.0); MEAN CORPUSCULAR VOLUME 92 fl (80-97); MONOCYTES % (AUTO) 11.7 % (3-13); RED BLOOD COUNT 3.53 10^6/uL (3.72-5.28); RED CELL DISTRIBUTION WIDTH 14.6 % (11.5-14.0); SEGMENTED NEUTROPHILS % (AUTO) 60.9 % (42-78); WHITE BLOOD COUNT 7.3 10^3/uL (4.0-10.5)
[2016-11-11 06:35] LABS: ANION GAP 9 (5-19); BLOOD UREA NITROGEN 22 mg/dL (7-20); CALCIUM 9.1 mg/dL (8.4-10.2); CARBON DIOXIDE 34 mmol/L (22-30); CHLORIDE 97 mmol/L (98-107); CREATININE RESULT 0.95 mg/dL (0.52-1.25); GLUCOSE 153 mg/dL (75-110); POTASSIUM 4.7 mmol/L (3.6-5.0); SODIUM 139.5 mmol/L (137-145)
[2016-11-11] MEDS: CLOPIDOGREL BISULFATE 75 MG TABLET PO SCH (10:59)
[2016-11-11] MEDS: METFORMIN HCL 500 MG TABLET PO SCH ×2 (10:59→18:55)
[2016-11-11] MEDS: ASPIRIN 81 MG TABLET, CHEWABLE PO SCH (10:59)
[2016-11-11] MEDS: DULOXETINE HCL 30 MG CAPSULE.DR PO SCH (10:59)
[2016-11-11] MEDS: INSULIN DETEMIR 100 UNIT/ML 3 ML PEN SUBCUT SCH ×2 (11:00→21:57)
[2016-11-11] MEDS: ENOXAPARIN SODIUM INJ 40 MG/0.4 ML DISP.SYRIN SUBCUT SCH (11:00)
[2016-11-11] MEDS: MAGNESIUM OXIDE 400 MG TABLET PO SCH (11:00)
[2016-11-11] MEDS: TIOTROPIUM BROMIDE DPI 5 CAP/KIT (18 MCG/CAP) IH SCH (11:00)
[2016-11-11] MEDS: FLUTICASONE/SALMETEROL DISKUS 250-50 MCG/DOSE IH SCH ×2 (11:00→21:57)
[2016-11-11] MEDS: NORMAL SALINE 10 ML SDV (SCHEDULED) IV SCH ×2 (11:01→21:57)
[2016-11-11] MEDS: METOPROLOL SUCCINATE 50 MG TAB.SR.24H PO SCH (11:06)
[2016-11-11] MEDS: SPIRONOLACTONE 25 MG TABLET PO SCH (11:07)
[2016-11-11] MEDS: LISINOPRIL 5 MG TABLET PO SCH (11:07)
[2016-11-11] MEDS: LEVOFLOXACIN 750 MG/D5W RTU 750 MG/150 ML RTUPB IV SCH (18:55)
[2016-11-11] MEDS ORDERED: LORAZEPAM INJ 2 MG/1 ML VIAL IV PRN (20:38)
--- NOTE | 2016-11-11 21:23 | PDOC PROGRESS REPORT ---
Subjective Progress Note for:: 11/11/16 Subjective:: She was seen by the bedside, she had x-ray done of the lumbar spine over the weekend showed possible fracture of the lumbar bone, compression type fracture MRI of the lumbar spine would be requested. Physical Exam Vital Signs: Temp Pulse Resp BP Pulse Ox 98.5 F 74 18 91/55 L 97 11/11/16 16:26 11/11/16 18:40 11/11/16 16:26 11/11/16 16:26 11/11/16 17:59 Intake & Output 11/10/16 11/11/16 11/12/16 06:59 06:59 06:59 Intake Total 3517 2332 1525 Output Total 300 250 Balance 3217 2082 1525 Weight 120.4 kg 122.3 kg General appearance: PRESENT: no acute distress Eye exam: PRESENT: PERRLA Respiratory exam: PRESENT: rhonchi Cardiovascular exam: PRESENT: +S1, +S2 GI/Abdominal exam: PRESENT: soft Neurological exam: PRESENT: alert Results Laboratory Results: 11/11/16 05:07 11/11/16 05:07 11/11/16 11/11/16 05:07 05:07 WBC 7.3 RBC 3.53 L Hgb 10.4 L Hct 32.3 L MCV 92 MCH 29.5 MCHC 32.2 RDW 14.6 H Plt Count 289 Seg Neutrophils % 60.9 Lymphocytes % 21.2 Monocytes % 11.7 Eosinophils % 5.7 Basophils % 0.5 Absolute Neutrophils 4.4 Absolute Lymphocytes 1.5 Absolute Monocytes 0.9 Absolute Eosinophils 0.4 Absolute Basophils 0.0 Sodium 139.5 Potassium 4.7 Chloride 97 L Carbon Dioxide 34 H Anion Gap 9 BUN 22 H Creatinine 0.95 Est GFR ( Amer) > 60 Est GFR (Non-Af Amer) 59 L Glucose 153 H Calcium 9.1 11/07/16 11/07/16 11/07/16 18:12 18:12 18:12 Creatine Kinase 33 CK-MB (CK-2) 1.10 Troponin I 0.018 NT-Pro-B Natriuret Pep 2110 H 11/08/16 11/08/16 11/08/16 00:35 00:35 05:54 Creatine Kinase 40 CK-MB (CK-2) 1.24 1.48 Troponin I 0.014 0.016 NT-Pro-B Natriuret Pep 11/08/16 05:54 Creatine Kinase 30 CK-MB (CK-2) Troponin I NT-Pro-B Natriuret Pep Impressions: Chest X-Ray 11/07/16 12:13 IMPRESSION: NO ACUTE RADIOGRAPHIC FINDING IN THE CHEST. Guidance Fluoroscopy 11/08/16 00:00 IMPRESSION: SUCCESSFUL PLACEMENT OF A 5 FR DUAL LUMEN 44 CM PICC IN THE LEFT BASILIC VEIN. Interventional Vascular Procedure 11/08/16 00:00 IMPRESSION: SUCCESSFUL PLACEMENT OF A 5 FR DUAL LUMEN 44 CM PICC IN THE LEFT BASILIC VEIN. PICC Line Insertion 11/08/16 00:00 IMPRESSION: SUCCESSFUL PLACEMENT OF A 5 FR DUAL LUMEN 44 CM PICC IN THE LEFT BASILIC VEIN. Knee X-Ray 11/10/16 00:00 IMPRESSION: NEGATIVE STUDY OF THE LEFT KNEE. NO RADIOGRAPHIC EVIDENCE OF ACUTE INJURY. Lumbar Spine X-Ray 11/10/16 00:00 IMPRESSION: Possible new minimal compression fractures of L2 and L5. Generalized osteopenia. Chronic T12 compression fracture. Assessment & Plan - Diagnosis (1) Acute hypercapnic respiratory failure Is this a current diagnosis for this admission?: Yes (2) Diabetes mellitus type 2 in obese Is this a current diagnosis for this admission?: Yes (3) Peripheral vascular disease Is this a current diagnosis for this admission?: Yes (4) COPD (chronic obstructive pulmonary disease) Qualifiers: COPD type: COPD with acute exacerbation Qualified Code(s): J44.1 - Chronic obstructive pulmonary disease with (acute) exacerbation (5) Coronary artery disease Qualifiers: Coronary Disease-Associated Artery/Lesion type: [place] artery [place] vs. transplanted heart: [place] heart Associated angina: angina presence unspecified Qualified Code(s): I25.10 - Atherosclerotic heart disease of [place] coronary artery without angina pectoris Is this a current diagnosis for this admission?: Yes (6) Physical deconditioning Is this a current diagnosis for this admission?: Yes (7) Urinary tract infection Qualifiers: Urinary tract infection type: site unspecified Hematuria presence: without hematuria Qualified Code(s): N39.0 - Urinary tract infection, site not specified Is this a current diagnosis for this admission?: Yes - Plan Summary Plan Summary: Continue antibiotic, MRI of the lumbar spine is ordered transfer
[2016-11-11] MEDS: ATORVASTATIN CALCIUM 40 MG TABLET PO SCH (21:52)
[2016-11-11] MEDS: MORPHINE SULFATE 10 MG/ML INJ IV PRN (22:00)
[2016-11-12] MEDS: MORPHINE SULFATE 10 MG/ML INJ IV PRN ×3 (04:04→19:32)
[2016-11-12] MEDS: GABAPENTIN 300 MG CAPSULE PO SCH ×4 (05:07→23:25)
[2016-11-12 05:12] LABS: ANION GAP 7 (5-19); BLOOD UREA NITROGEN 19 mg/dL (7-20); CALCIUM 9.3 mg/dL (8.4-10.2); CARBON DIOXIDE 35 mmol/L (22-30); CHLORIDE 97 mmol/L (98-107); CREATININE RESULT 0.87 mg/dL (0.52-1.25); GLUCOSE 102 mg/dL (75-110); POTASSIUM 4.9 mmol/L (3.6-5.0); SODIUM 138.8 mmol/L (137-145)
[2016-11-12] MEDS ORDERED: LORAZEPAM INJ 2 MG/1 ML VIAL ONE (10:30)
[2016-11-12] MEDS: DULOXETINE HCL 30 MG CAPSULE.DR PO SCH (10:32)
[2016-11-12] MEDS: TRAMADOL HCL 50 MG TABLET PO SCH ×2 (10:35→23:26)
[2016-11-12] MEDS: CLOPIDOGREL BISULFATE 75 MG TABLET PO SCH (10:35)
[2016-11-12] MEDS: METFORMIN HCL 500 MG TABLET PO SCH ×2 (10:36→18:09)
[2016-11-12] MEDS: MAGNESIUM OXIDE 400 MG TABLET PO SCH (10:36)
[2016-11-12] MEDS: ASPIRIN 81 MG TABLET, CHEWABLE PO SCH (10:37)
[2016-11-12] MEDS: ENOXAPARIN SODIUM INJ 40 MG/0.4 ML DISP.SYRIN SUBCUT SCH (11:33)
[2016-11-12] MEDS: INSULIN DETEMIR 100 UNIT/ML 3 ML PEN SUBCUT SCH ×2 (11:34→22:19)
[2016-11-12] MEDS: METOPROLOL SUCCINATE 50 MG TAB.SR.24H PO SCH (11:35)
[2016-11-12] MEDS: LISINOPRIL 5 MG TABLET PO SCH (11:35)
[2016-11-12] MEDS: SPIRONOLACTONE 25 MG TABLET PO SCH (11:36)
[2016-11-12] MEDS: FLUTICASONE/SALMETEROL DISKUS 250-50 MCG/DOSE IH SCH ×2 (11:37→22:15)
[2016-11-12] MEDS: TIOTROPIUM BROMIDE DPI 5 CAP/KIT (18 MCG/CAP) IH SCH (11:38)
[2016-11-12] MEDS: NORMAL SALINE 10 ML SDV (SCHEDULED) IV SCH ×2 (11:39→22:30)
[2016-11-12] MEDS: INSULIN REG, HUMAN 100 UNIT/ML 3 ML VIAL (PYX) SUBCUT PRN (12:15)
[2016-11-12] MEDS: NITROFURANTOIN MONOHYD/M-CRYST 100 MG CAPSULE PO SCH (18:09)
[2016-11-12 19:31] LABS: ARTERIAL BLOOD BASE EXCESS 2.9 mmol/L; ARTERIAL BLOOD O2 SATURATION 97.2 % (94-98)
--- NOTE | 2016-11-12 21:26 | PDOC PROGRESS REPORT ---
Subjective Progress Note for:: 11/12/16 Subjective:: She was seen by the bedside the urine culture grew E faecalis, she could not get the MRI today because she was claustrophobic Physical Exam Vital Signs: Temp Pulse Resp BP Pulse Ox 98.5 F 76 16 93/43 L 93 11/12/16 19:40 11/12/16 19:40 11/12/16 19:40 11/12/16 19:40 11/12/16 19:40 Intake & Output 11/11/16 11/12/16 11/13/16 06:59 06:59 06:59 Intake Total 2332 1778 1297 Output Total 250 1800 Balance 2081 1297 Weight 122.3 kg 119.2 kg General appearance: PRESENT: mild distress Eye exam: PRESENT: PERRLA Respiratory exam: PRESENT: rhonchi Cardiovascular exam: PRESENT: +S1, +S2 GI/Abdominal exam: PRESENT: soft Neurological exam: PRESENT: alert Results Laboratory Results: 11/11/16 05:07 11/12/16 04:35 11/12/16 11/12/16 04:35 19:20 Carbonic Acid 1.39 H HCO3/H2CO3 Ratio 20:1 ABG pH 7.40 ABG pCO2 46.1 H ABG pO2 95.0 ABG HCO3 28.2 H ABG O2 Saturation 97.2 ABG Base Excess 2.9 FiO2 3L Sodium 138.8 Potassium 4.9 Chloride 97 L Carbon Dioxide 35 H Anion Gap 7 BUN 19 Creatinine 0.87 Est GFR ( Amer) > 60 Est GFR (Non-Af Amer) > 60 Glucose 102 Calcium 9.3 11/08/16 23:30 Clean Catch Midstream Urine Culture - Final Enterococcus Faecalis(Group D) Staph Coagulase Negative 11/07/16 11/07/16 11/07/16 18:12 18:12 18:12 Creatine Kinase 33 CK-MB (CK-2) 1.10 Troponin I 0.018 NT-Pro-B Natriuret Pep 2110 H 11/08/16 11/08/16 11/08/16 00:35 00:35 05:54 Creatine Kinase 40 CK-MB (CK-2) 1.24 1.48 Troponin I 0.014 0.016 NT-Pro-B Natriuret Pep 11/08/16 05:54 Creatine Kinase 30 CK-MB (CK-2) Troponin I NT-Pro-B Natriuret Pep Impressions: Chest X-Ray 11/07/16 12:13 IMPRESSION: NO ACUTE RADIOGRAPHIC FINDING IN THE CHEST. Guidance Fluoroscopy 11/08/16 00:00 IMPRESSION: SUCCESSFUL PLACEMENT OF A 5 FR DUAL LUMEN 44 CM PICC IN THE LEFT BASILIC VEIN. Interventional Vascular Procedure 11/08/16 00:00 IMPRESSION: SUCCESSFUL PLACEMENT OF A 5 FR DUAL LUMEN 44 CM PICC IN THE LEFT BASILIC VEIN. PICC Line Insertion 11/08/16 00:00 IMPRESSION: SUCCESSFUL PLACEMENT OF A 5 FR DUAL LUMEN 44 CM PICC IN THE LEFT BASILIC VEIN. Knee X-Ray 11/10/16 00:00 IMPRESSION: NEGATIVE STUDY OF THE LEFT KNEE. NO RADIOGRAPHIC EVIDENCE OF ACUTE INJURY. Lumbar Spine X-Ray 11/10/16 00:00 IMPRESSION: Possible new minimal compression fractures of L2 and L5. Generalized osteopenia. Chronic T12 compression fracture. Assessment & Plan - Diagnosis (1) Acute hypercapnic respiratory failure Is this a current diagnosis for this admission?: Yes (2) Diabetes mellitus type 2 in obese Is this a current diagnosis for this admission?: Yes (3) Peripheral vascular disease Is this a current diagnosis for this admission?: Yes (4) COPD (chronic obstructive pulmonary disease) Qualifiers: COPD type: COPD with acute exacerbation Qualified Code(s): J44.1 - Chronic obstructive pulmonary disease with (acute) exacerbation (5) Coronary artery disease Qualifiers: Coronary Disease-Associated Artery/Lesion type: [place] artery [place] vs. transplanted heart: [place] heart Associated angina: angina presence unspecified Qualified Code(s): I25.10 - Atherosclerotic heart disease of [place] coronary artery without angina pectoris Is this a current diagnosis for this admission?: Yes (6) Physical deconditioning Is this a current diagnosis for this admission?: Yes (7) Urinary tract infection Qualifiers: Urinary tract infection type: site unspecified Hematuria presence: without hematuria Qualified Code(s): N39.0 - Urinary tract infection, site not specified Is this a current diagnosis for this admission?: Yes (8) Enterococcus UTI Is this a current diagnosis for this admission?: Yes Plan: The pathogen is resistant to Levaquin, sensitive to Macrobid, Levaquin is DC, Macrobid is started
[2016-11-12] MEDS: ATORVASTATIN CALCIUM 40 MG TABLET PO SCH (22:15)
[2016-11-13] MEDS: MORPHINE SULFATE 10 MG/ML INJ IV PRN ×2 (01:32→11:13)
[2016-11-13] MEDS ORDERED: LORAZEPAM INJ 2 MG/1 ML VIAL IV PRN (05:00)
[2016-11-13] MEDS: GABAPENTIN 300 MG CAPSULE PO SCH ×4 (05:29→23:55)
[2016-11-13] MEDS: TRAMADOL HCL 50 MG TABLET PO SCH ×2 (05:29→18:05)
[2016-11-13 06:05] LABS: ANION GAP 6 (5-19); BLOOD UREA NITROGEN 21 mg/dL (7-20); CALCIUM 9.4 mg/dL (8.4-10.2); CARBON DIOXIDE 34 mmol/L (22-30); CHLORIDE 98 mmol/L (98-107); CREATININE RESULT 0.88 mg/dL (0.52-1.25); GLUCOSE 104 mg/dL (75-110); SODIUM 138.3 mmol/L (137-145)
[2016-11-13] MEDS: ENOXAPARIN SODIUM INJ 40 MG/0.4 ML DISP.SYRIN SUBCUT SCH (09:19)
[2016-11-13] MEDS: METOPROLOL SUCCINATE 50 MG TAB.SR.24H PO SCH (09:19)
[2016-11-13] MEDS: METFORMIN HCL 500 MG TABLET PO SCH ×2 (09:20→18:04)
[2016-11-13] MEDS: SPIRONOLACTONE 25 MG TABLET PO SCH (09:20)
[2016-11-13] MEDS: NITROFURANTOIN MONOHYD/M-CRYST 100 MG CAPSULE PO SCH ×2 (09:21→18:05)
[2016-11-13] MEDS: MAGNESIUM OXIDE 400 MG TABLET PO SCH (09:21)
[2016-11-13] MEDS: DULOXETINE HCL 30 MG CAPSULE.DR PO SCH ×2 (09:21→22:35)
[2016-11-13] MEDS: CLOPIDOGREL BISULFATE 75 MG TABLET PO SCH (09:22)
[2016-11-13] MEDS: ASPIRIN 81 MG TABLET, CHEWABLE PO SCH (09:22)
[2016-11-13] MEDS: LISINOPRIL 5 MG TABLET PO SCH (09:33)
[2016-11-13] MEDS: FLUTICASONE/SALMETEROL DISKUS 250-50 MCG/DOSE IH SCH ×2 (10:26→22:42)
[2016-11-13] MEDS: INSULIN DETEMIR 100 UNIT/ML 3 ML PEN SUBCUT SCH ×2 (10:26→22:43)
[2016-11-13] MEDS: NORMAL SALINE 10 ML SDV (SCHEDULED) IV SCH ×2 (10:27→22:36)
--- NOTE | 2016-11-13 13:48 | RADIOLOGY REPORT (SQ) ---
EXAM DESCRIPTION: MRI LUMBAR SPINE WITHOUT COMPLETED DATE/TIME: 11/13/2016 12:15 pm REASON FOR STUDY: Lumbar fractures COMPARISON: Several priors, most recent 08/04/2012 TECHNIQUE: Sagittal and Axial imaging includes T1, T2, STIR and gradient echo sequences. Coronal T2/ HASTE imaging. LIMITATIONS: Motion. FINDINGS: VISUALIZED UPPER ABDOMEN: Limited evaluation. No acute or suspicious findings suggested. SEGMENTATION: No transitional anatomy. The lowest well-developed disc space is labeled L5-S1. ALIGNMENT: Mild scoliosis. VERTEBRAE: Depression of the superior endplates of T12, L2 and L5 with preserved marrow signal. BONE MARROW: Normal. No marrow replacement or reactive changes. DISC SIGNAL: Desiccation L1-2 and L3-4. POSTERIOR ELEMENTS: Intact. HARDWARE: None in the spine. CORD AND CONUS: Normal in size and signal intensity. Conus at the appropriate level. SOFT TISSUES: No aortic aneurysm seen. No bulky retroperitoneal adenopathy or mass. No paraspinal mas s or fluid. L1-L2: Schmorl's node superior endplate L2. No significant spinal stenosis or exit foraminal stenosi s. L2-L3: No significant spinal stenosis or exit foraminal stenosis. L3-L4: Facet arthropathy. No significant spinal stenosis or exit foraminal stenosis. L4-L5: Schmorl's node superior endplate L5. Facet arthropathy. No significant spinal stenosis or ex it foraminal stenosis. L5-S1: Facet arthropathy. No significant spinal stenosis or exit foraminal stenosis. LOWER THORACIC: Incompletely imaged. No stenosis seen. SACRUM: Visualized upper sacrum intact. OTHER: No other significant findings. IMPRESSION: No acute findings in the lumbar spine. TECHNICAL DOCUMENTATION: JOB ID: [id number] [employer]- All Rights Reserved
[2016-11-13] MEDS: TIOTROPIUM BROMIDE DPI 5 CAP/KIT (18 MCG/CAP) IH SCH (15:22)
--- NOTE | 2016-11-13 17:00 | PDOC PROGRESS REPORT ---
Subjective Progress Note for:: 11/13/16 Subjective:: Patient was seen by the bedside she continues to complain of back pain MRI of the lumbar spine was negative for fracture Physical Exam Vital Signs: Temp Pulse Resp BP Pulse Ox 98.9 F 77 22 H 94/51 L 98 11/13/16 15:08 11/13/16 15:08 11/13/16 15:08 11/13/16 15:08 11/13/16 15:08 Intake & Output 11/12/16 11/13/16 11/14/16 06:59 06:59 06:59 Intake Total 1778 1628 237 Output Total 1800 1000 Balance -22 628 237 Weight 119.2 kg 119.7 kg General appearance: PRESENT: no acute distress Eye exam: PRESENT: PERRLA Respiratory exam: PRESENT: rhonchi Cardiovascular exam: PRESENT: +S1, +S2 GI/Abdominal exam: PRESENT: soft Results Laboratory Results: 11/11/16 05:07 11/13/16 05:40 11/12/16 11/13/16 19:20 05:40 Carbonic Acid 1.39 H HCO3/H2CO3 Ratio 20:1 ABG pH 7.40 ABG pCO2 46.1 H ABG pO2 95.0 ABG HCO3 28.2 H ABG O2 Saturation 97.2 ABG Base Excess 2.9 FiO2 3L Sodium 138.3 Potassium 5.0 Chloride 98 Carbon Dioxide 34 H Anion Gap 6 BUN 21 H Creatinine 0.88 Est GFR ( Amer) > 60 Est GFR (Non-Af Amer) > 60 Glucose 104 Calcium 9.4 11/07/16 11/07/16 11/07/16 18:12 18:12 18:12 Creatine Kinase 33 CK-MB (CK-2) 1.10 Troponin I 0.018 NT-Pro-B Natriuret Pep 2110 H 11/08/16 11/08/16 11/08/16 00:35 00:35 05:54 Creatine Kinase 40 CK-MB (CK-2) 1.24 1.48 Troponin I 0.014 0.016 NT-Pro-B Natriuret Pep 11/08/16 05:54 Creatine Kinase 30 CK-MB (CK-2) Troponin I NT-Pro-B Natriuret Pep Impressions: Chest X-Ray 11/07/16 12:13 IMPRESSION: NO ACUTE RADIOGRAPHIC FINDING IN THE CHEST. Guidance Fluoroscopy 11/08/16 00:00 IMPRESSION: SUCCESSFUL PLACEMENT OF A 5 FR DUAL LUMEN 44 CM PICC IN THE LEFT BASILIC VEIN. Interventional Vascular Procedure 11/08/16 00:00 IMPRESSION: SUCCESSFUL PLACEMENT OF A 5 FR DUAL LUMEN 44 CM PICC IN THE LEFT BASILIC VEIN. PICC Line Insertion 11/08/16 00:00 IMPRESSION: SUCCESSFUL PLACEMENT OF A 5 FR DUAL LUMEN 44 CM PICC IN THE LEFT BASILIC VEIN. Knee X-Ray 11/10/16 00:00 IMPRESSION: NEGATIVE STUDY OF THE LEFT KNEE. NO RADIOGRAPHIC EVIDENCE OF ACUTE INJURY. Lumbar Spine X-Ray 11/10/16 00:00 IMPRESSION: Possible new minimal compression fractures of L2 and L5. Generalized osteopenia. Chronic T12 compression fracture. Lumbar Spine MRI 11/13/16 00:00 IMPRESSION: No acute findings in the lumbar spine. Assessment & Plan - Diagnosis (1) Acute hypercapnic respiratory failure Is this a current diagnosis for this admission?: Yes (2) Diabetes mellitus type 2 in obese Is this a current diagnosis for this admission?: Yes (3) Peripheral vascular disease Is this a current diagnosis for this admission?: Yes (4) COPD (chronic obstructive pulmonary disease) Qualifiers: COPD type: COPD with acute exacerbation Qualified Code(s): J44.1 - Chronic obstructive pulmonary disease with (acute) exacerbation (5) Coronary artery disease Qualifiers: Coronary Disease-Associated Artery/Lesion type: [place] artery [place] vs. transplanted heart: [place] heart Associated angina: angina presence unspecified Qualified Code(s): I25.10 - Atherosclerotic heart disease of [place] coronary artery without angina pectoris Is this a current diagnosis for this admission?: Yes (6) Physical deconditioning Is this a current diagnosis for this admission?: Yes (7) Urinary tract infection Qualifiers: Urinary tract infection type: site unspecified Hematuria presence: without hematuria Qualified Code(s): N39.0 - Urinary tract infection, site not specified Is this a current diagnosis for this admission?: Yes (8) Enterococcus UTI Is this a current diagnosis for this admission?: Yes
[2016-11-13] MEDS: INSULIN REG, HUMAN 100 UNIT/ML 3 ML VIAL (PYX) SUBCUT PRN (18:04)
[2016-11-13] MEDS: ATORVASTATIN CALCIUM 40 MG TABLET PO SCH (22:36)
[2016-11-13] MEDS ORDERED: INSULIN DETEMIR 100 UNIT/ML 3 ML PEN SUBCUT ONE (23:24)
[2016-11-14] MEDS: TRAMADOL HCL 50 MG TABLET PO SCH ×2 (00:03→05:58)
[2016-11-14] MEDS: GABAPENTIN 300 MG CAPSULE PO SCH ×3 (05:21→17:16)
[2016-11-14] MEDS: ENOXAPARIN SODIUM INJ 40 MG/0.4 ML DISP.SYRIN SUBCUT SCH (11:40)
[2016-11-14] MEDS: INSULIN DETEMIR 100 UNIT/ML 3 ML PEN SUBCUT SCH ×2 (11:41→21:24)
[2016-11-14] MEDS: FLUTICASONE/SALMETEROL DISKUS 250-50 MCG/DOSE IH SCH ×2 (11:41→21:27)
[2016-11-14] MEDS: METOPROLOL SUCCINATE 50 MG TAB.SR.24H PO SCH (11:42)
[2016-11-14] MEDS: DULOXETINE HCL 30 MG CAPSULE.DR PO SCH ×2 (11:43→21:20)
[2016-11-14] MEDS: CLOPIDOGREL BISULFATE 75 MG TABLET PO SCH (11:43)
[2016-11-14] MEDS: SPIRONOLACTONE 25 MG TABLET PO SCH (11:44)
[2016-11-14] MEDS: METFORMIN HCL 500 MG TABLET PO SCH ×2 (11:44→17:16)
[2016-11-14] MEDS: ASPIRIN 81 MG TABLET, CHEWABLE PO SCH (11:44)
[2016-11-14] MEDS: NITROFURANTOIN MONOHYD/M-CRYST 100 MG CAPSULE PO SCH ×2 (11:44→17:16)
[2016-11-14] MEDS: MAGNESIUM OXIDE 400 MG TABLET PO SCH (11:45)
[2016-11-14] MEDS: TIOTROPIUM BROMIDE DPI 5 CAP/KIT (18 MCG/CAP) IH SCH (11:45)
[2016-11-14] MEDS: NORMAL SALINE 10 ML SDV (SCHEDULED) IV SCH ×2 (11:47→21:30)
[2016-11-14] MEDS: LISINOPRIL 5 MG TABLET PO SCH (11:58)
[2016-11-14] MEDS: INSULIN REG, HUMAN 100 UNIT/ML 3 ML VIAL (PYX) SUBCUT PRN ×2 (17:16→21:24)
--- NOTE | 2016-11-14 18:49 | PDOC DISCHARGE SUMMARY ---
General - Admit/Disc Date/PCP Admission Date/Primary Care Provider: 11/07/16 17:36 TANISHA POLLARD MD Discharge Date: 11/14/16 - Discharge Diagnosis (1) Acute hypercapnic respiratory failure Is this a current diagnosis for this admission?: Yes (2) Diabetes mellitus type 2 in obese Is this a current diagnosis for this admission?: Yes (3) Peripheral vascular disease Is this a current diagnosis for this admission?: Yes (4) COPD (chronic obstructive pulmonary disease) Is this a current diagnosis for this admission?: Yes (5) Coronary artery disease Is this a current diagnosis for this admission?: Yes (6) Physical deconditioning Is this a current diagnosis for this admission?: Yes (7) Urinary tract infection Is this a current diagnosis for this admission?: Yes (8) Enterococcus UTI Is this a current diagnosis for this admission?: Yes - Additional Information Resuscitation Status: Full Code Discharge Diet: Diabetic Discharge Activity: Activity As Tolerated Home Medications: Albuterol Sulfate [Proair HFA] 2 puff IH Q4HP PRN 11/07/16 Aspirin [Aspirin 81 mg Chewable Tablet] 81 mg PO DAILY 11/07/16 Atorvastatin Calcium [Lipitor 40 mg Tablet] 40 mg PO QHS 11/07/16 Clopidogrel Bisulfate [Plavix 75 mg Tablet] 75 mg PO DAILY 11/07/16 Duloxetine HCl [Cymbalta] 60 mg PO DAILY 11/07/16 Fluticasone/Salmeterol [Advair 250-50 Diskus 14 Dose/Diskus] 1 inh IH Q12 Gabapentin [Neurontin 300 mg Capsule] 300 mg PO Q8 11/07/16 Insulin Aspart [Novolog Flexpen] 8 unit SQ TID 11/07/16 Insulin Detemir [Levemir Flextouch] 50 unit SQ BID 11/07/16 Lisinopril [Prinivil 2.5 mg Tablet] 2.5 mg PO DAILY 11/07/16 Magnesium Oxide [Magnesium] 400 mg PO DAILY 11/07/16 Melatonin [Melatin] 6 mg PO QHS 11/07/16 Metformin HCl [Metformin HCl ER] 500 mg PO QPM 11/07/16 Metoprolol Succinate [Toprol Xl 50 mg Tab.sr] 50 mg PO DAILY 11/07/16 Pioglitazone HCl [Actos] 45 mg PO DAILY 11/07/16 Simethicone [Gas Relief 80] 80 mg PO QIDP PRN 11/07/16 Spironolactone [Aldactone 25 mg Tablet] 25 mg PO DAILY 11/07/16 Tiotropium [place] [Spiriva Handihaler 18 mcg/dose (30 Dose)] 1 cap IH DAILY Tramadol HCl/Acetaminophen [Ultracet 37.5 mg/325 mg Tablet] 1 each PO Q6 Nitrofurantoin Monohyd/M-Cryst [Macrobid 100 mg Capsule] 100 mg PO BID #20 capsule 11/14/16 History of Present Illness History of Present Illness: TORREY MARKS is a 65 year old femaleShe has a history of chronic respiratory failure on home oxygen, she was brought to the emergency room for evaluation of respiratory distress, in the emergency room if venous blood gas was done, pH 7.29, PCO2 74.3, the respiratory was supported with a noninvasive positive pressure ventilation, BiPAP machine. She has multiple comorbid conditions including coronary artery disease, peripheral vascular disease very severe COPD , type 2 diabetes mellitus long history of tobacco abuse. She was recently transferred to [place] for cardiac catheterization when she had non-ST segment elevated myocardial infarction. She has a history of multiple hospitalizations usually for respiratory related conditions. Hospital Course Hospital Course: Patient was admitted for the management of acute hypercapnic respiratory failure due to COPD. She required BiPAP machine in noninvasive positive pressure ventilation. She did not require any Solu-Medrol this admission there was no overt wheezing. She also had urinary symptoms, the urine culture grew E faecalis sensitive to Macrobid. On admission she was empirically treated with Levaquin for broad UTI and infected bronchitis. She complained of back pain, irregular x-ray was done that suggest a fracture because of that MRI was done that was negative for any fracture or pathology. Physical Exam Vital Signs: Temp Pulse Resp BP Pulse Ox 98.6 F 91 21 H 105/45 L 95 11/14/16 15:05 11/14/16 15:05 11/14/16 15:05 11/14/16 15:05 11/14/16 15:05 Intake & Output 11/13/16 11/14/16 11/15/16 06:59 06:59 06:59 Intake Total 1628 1542 731 Output Total 1000 900 Balance 628 642 731 Weight 119.7 kg 119.9 kg General appearance: PRESENT: no acute distress, well-developed, well-nourished Head exam: PRESENT: atraumatic, normocephalic Eye exam: PRESENT: conjunctiva pink, EOMI, PERRLA Ear exam: PRESENT: normal external ear exam Mouth exam: PRESENT: moist, tongue midline Neck exam: PRESENT: full ROM Respiratory exam: PRESENT: clear to auscultation rolf Cardiovascular exam: PRESENT: RRR, +S1, +S2 Pulses: PRESENT: normal dorsalis pedis pul, +2 pedal pulses bilateral Vascular exam: PRESENT: normal capillary refill GI/Abdominal exam: PRESENT: normal bowel sounds, soft Rectal exam: PRESENT: deferred Neurological exam: PRESENT: alert Psychiatric exam: PRESENT: appropriate affect, normal mood Skin exam: PRESENT: dry, intact, warm Results Laboratory Results: 11/11/16 05:07 11/13/16 05:40 11/07/16 11/07/16 11/07/16 18:12 18:12 18:12 Creatine Kinase 33 CK-MB (CK-2) 1.10 Troponin I 0.018 NT-Pro-B Natriuret Pep 2110 H 11/08/16 11/08/16 11/08/16 00:35 00:35 05:54 Creatine Kinase 40 CK-MB (CK-2) 1.24 1.48 Troponin I 0.014 0.016 NT-Pro-B Natriuret Pep 11/08/16 05:54 Creatine Kinase 30 CK-MB (CK-2) Troponin I NT-Pro-B Natriuret Pep Impressions: Chest X-Ray 11/07/16 12:13 IMPRESSION: NO ACUTE RADIOGRAPHIC FINDING IN THE CHEST. Guidance Fluoroscopy 11/08/16 00:00 IMPRESSION: SUCCESSFUL PLACEMENT OF A 5 FR DUAL LUMEN 44 CM PICC IN THE LEFT BASILIC VEIN. Interventional Vascular Procedure 11/08/16 00:00 IMPRESSION: SUCCESSFUL PLACEMENT OF A 5 FR DUAL LUMEN 44 CM PICC IN THE LEFT BASILIC VEIN. PICC Line Insertion 11/08/16 00:00 IMPRESSION: SUCCESSFUL PLACEMENT OF A 5 FR DUAL LUMEN 44 CM PICC IN THE LEFT BASILIC VEIN. Knee X-Ray 11/10/16 00:00 IMPRESSION: NEGATIVE STUDY OF THE LEFT KNEE. NO RADIOGRAPHIC EVIDENCE OF ACUTE INJURY. Lumbar Spine X-Ray 11/10/16 00:00 IMPRESSION: Possible new minimal compression fractures of L2 and L5. Generalized osteopenia. Chronic T12 compression fracture. Lumbar Spine MRI 11/13/16 00:00 IMPRESSION: No acute findings in the lumbar spine.
[2016-11-14] MEDS ORDERED: HYDROMORPHONE HCL INJ/PF 2 MG/ML AMPULE IV ONE (19:30)
[2016-11-14] MEDS: ATORVASTATIN CALCIUM 40 MG TABLET PO SCH (21:21)
[2016-11-15] MEDS: GABAPENTIN 300 MG CAPSULE PO SCH ×4 (01:37→17:21)
[2016-11-15] MEDS: TRAMADOL HCL 50 MG TABLET PO SCH (06:39)
[2016-11-15] MEDS: SPIRONOLACTONE 25 MG TABLET PO SCH (09:16)
[2016-11-15] MEDS: ASPIRIN 81 MG TABLET, CHEWABLE PO SCH (09:16)
[2016-11-15] MEDS: METOPROLOL SUCCINATE 50 MG TAB.SR.24H PO SCH (09:16)
[2016-11-15] MEDS: LISINOPRIL 5 MG TABLET PO SCH (09:16)
[2016-11-15] MEDS: DULOXETINE HCL 30 MG CAPSULE.DR PO SCH ×2 (09:16→23:02)
[2016-11-15] MEDS: NITROFURANTOIN MONOHYD/M-CRYST 100 MG CAPSULE PO SCH ×2 (09:16→17:21)
[2016-11-15] MEDS: MAGNESIUM OXIDE 400 MG TABLET PO SCH (09:16)
[2016-11-15] MEDS: METFORMIN HCL 500 MG TABLET PO SCH ×2 (09:16→17:21)
[2016-11-15] MEDS: CLOPIDOGREL BISULFATE 75 MG TABLET PO SCH (09:16)
[2016-11-15] MEDS: TIOTROPIUM BROMIDE DPI 5 CAP/KIT (18 MCG/CAP) IH SCH (09:22)
[2016-11-15] MEDS: INSULIN DETEMIR 100 UNIT/ML 3 ML PEN SUBCUT SCH ×2 (09:22→23:53)
[2016-11-15] MEDS: FLUTICASONE/SALMETEROL DISKUS 250-50 MCG/DOSE IH SCH ×2 (09:23→23:07)
[2016-11-15] MEDS: ENOXAPARIN SODIUM INJ 40 MG/0.4 ML DISP.SYRIN SUBCUT SCH (09:31)
[2016-11-15] MEDS: NORMAL SALINE 10 ML SDV (SCHEDULED) IV SCH (09:31)
[2016-11-15] MEDS: ONDANSETRON HCL INJ/PF 4 MG/2 ML SDV IV PRN ×2 (13:40→22:49)
[2016-11-15] MEDS: TRAMADOL HCL 50 MG TABLET PO PRN (22:47)
[2016-11-15] MEDS: ATORVASTATIN CALCIUM 40 MG TABLET PO SCH (23:01)
[2016-11-16] MEDS: GABAPENTIN 300 MG CAPSULE PO SCH ×5 (00:12→23:43)
[2016-11-16] MEDS: NORMAL SALINE 10 ML SDV (AFTER EACH USE) IV PRN (06:13)
[2016-11-16] MEDS: INSULIN REG, HUMAN 100 UNIT/ML 3 ML VIAL (PYX) SUBCUT PRN ×2 (07:33→17:53)
[2016-11-16] MEDS: DULOXETINE HCL 30 MG CAPSULE.DR PO SCH ×2 (09:51→23:24)
[2016-11-16] MEDS: LISINOPRIL 5 MG TABLET PO SCH (09:51)
[2016-11-16] MEDS: SPIRONOLACTONE 25 MG TABLET PO SCH (09:51)
[2016-11-16] MEDS: CLOPIDOGREL BISULFATE 75 MG TABLET PO SCH (09:51)
[2016-11-16] MEDS: METFORMIN HCL 500 MG TABLET PO SCH ×2 (09:51→17:03)
[2016-11-16] MEDS: NITROFURANTOIN MONOHYD/M-CRYST 100 MG CAPSULE PO SCH ×2 (09:51→17:03)
[2016-11-16] MEDS: MAGNESIUM OXIDE 400 MG TABLET PO SCH (09:51)
[2016-11-16] MEDS: ASPIRIN 81 MG TABLET, CHEWABLE PO SCH (09:52)
[2016-11-16] MEDS: ENOXAPARIN SODIUM INJ 40 MG/0.4 ML DISP.SYRIN SUBCUT SCH (09:52)
[2016-11-16] MEDS: METOPROLOL SUCCINATE 50 MG TAB.SR.24H PO SCH (09:52)
[2016-11-16] MEDS: TIOTROPIUM BROMIDE DPI 5 CAP/KIT (18 MCG/CAP) IH SCH (09:52)
[2016-11-16] MEDS: FLUTICASONE/SALMETEROL DISKUS 250-50 MCG/DOSE IH SCH ×2 (09:53→23:41)
[2016-11-16] MEDS: NORMAL SALINE 10 ML SDV (SCHEDULED) IV SCH ×3 (09:53→23:46)
[2016-11-16] MEDS: INSULIN DETEMIR 100 UNIT/ML 3 ML PEN SUBCUT SCH ×2 (09:59→23:28)
[2016-11-16] MEDS: ALBUTEROL SULFATE HFA (90 MCG/PUFF) 200 PUFF/8.5 GM MDI IH PRN (10:05)
[2016-11-16] MEDS: TRAMADOL HCL 50 MG TABLET PO PRN ×2 (16:52→23:24)
[2016-11-16] MEDS: ATORVASTATIN CALCIUM 40 MG TABLET PO SCH (23:26)
[2016-11-17] MEDS: TRAMADOL HCL 50 MG TABLET PO PRN (05:22)
[2016-11-17] MEDS: GABAPENTIN 300 MG CAPSULE PO SCH ×4 (05:22→23:55)
[2016-11-17] MEDS: INSULIN REG, HUMAN 100 UNIT/ML 3 ML VIAL (PYX) SUBCUT PRN ×2 (08:29→12:24)
[2016-11-17] MEDS: FLUTICASONE/SALMETEROL DISKUS 250-50 MCG/DOSE IH SCH ×2 (10:23→21:16)
[2016-11-17] MEDS: METOPROLOL SUCCINATE 50 MG TAB.SR.24H PO SCH (10:23)
[2016-11-17] MEDS: LISINOPRIL 5 MG TABLET PO SCH (10:23)
[2016-11-17] MEDS: ENOXAPARIN SODIUM INJ 40 MG/0.4 ML DISP.SYRIN SUBCUT SCH (10:23)
[2016-11-17] MEDS: MAGNESIUM OXIDE 400 MG TABLET PO SCH (10:23)
[2016-11-17] MEDS: DULOXETINE HCL 30 MG CAPSULE.DR PO SCH ×2 (10:23→21:14)
[2016-11-17] MEDS: CLOPIDOGREL BISULFATE 75 MG TABLET PO SCH (10:23)
[2016-11-17] MEDS: NITROFURANTOIN MONOHYD/M-CRYST 100 MG CAPSULE PO SCH ×2 (10:23→18:26)
[2016-11-17] MEDS: METFORMIN HCL 500 MG TABLET PO SCH ×2 (10:23→18:26)
[2016-11-17] MEDS: ASPIRIN 81 MG TABLET, CHEWABLE PO SCH (10:23)
[2016-11-17] MEDS: SPIRONOLACTONE 25 MG TABLET PO SCH (10:23)
[2016-11-17] MEDS: INSULIN DETEMIR 100 UNIT/ML 3 ML PEN SUBCUT SCH ×2 (10:24→21:39)
[2016-11-17] MEDS: NORMAL SALINE 10 ML SDV (SCHEDULED) IV SCH ×2 (10:24→21:42)
[2016-11-17] MEDS: TIOTROPIUM BROMIDE DPI 5 CAP/KIT (18 MCG/CAP) IH SCH (14:51)
[2016-11-17] MEDS ORDERED: INFLUENZA ADLT QUAD (36MOS+) 2017-18 VAC 0.5 ML SYR IM PRN (15:59)
[2016-11-17] MEDS: ONDANSETRON HCL INJ/PF 4 MG/2 ML SDV IV PRN (21:13)
[2016-11-17] MEDS: ATORVASTATIN CALCIUM 40 MG TABLET PO SCH (21:13)
[2016-11-18] MEDS: GABAPENTIN 300 MG CAPSULE PO SCH ×3 (05:49→17:32)
[2016-11-18] MEDS: TRAMADOL HCL 50 MG TABLET PO PRN ×2 (05:49→14:00)
[2016-11-18] MEDS: ENOXAPARIN SODIUM INJ 40 MG/0.4 ML DISP.SYRIN SUBCUT SCH (10:28)
[2016-11-18] MEDS: METOPROLOL SUCCINATE 50 MG TAB.SR.24H PO SCH (10:29)
[2016-11-18] MEDS: ASPIRIN 81 MG TABLET, CHEWABLE PO SCH (10:29)
[2016-11-18] MEDS: LISINOPRIL 5 MG TABLET PO SCH (10:29)
[2016-11-18] MEDS: FLUTICASONE/SALMETEROL DISKUS 250-50 MCG/DOSE IH SCH ×2 (10:29→22:36)
[2016-11-18] MEDS: MAGNESIUM OXIDE 400 MG TABLET PO SCH (10:29)
[2016-11-18] MEDS: METFORMIN HCL 500 MG TABLET PO SCH ×2 (10:29→17:32)
[2016-11-18] MEDS: CLOPIDOGREL BISULFATE 75 MG TABLET PO SCH (10:29)
[2016-11-18] MEDS: DULOXETINE HCL 30 MG CAPSULE.DR PO SCH ×2 (10:29→22:37)
[2016-11-18] MEDS: SPIRONOLACTONE 25 MG TABLET PO SCH (10:29)
[2016-11-18] MEDS: NITROFURANTOIN MONOHYD/M-CRYST 100 MG CAPSULE PO SCH ×2 (10:29→17:35)
[2016-11-18] MEDS: NORMAL SALINE 10 ML SDV (SCHEDULED) IV SCH (10:30)
[2016-11-18] MEDS: INSULIN DETEMIR 100 UNIT/ML 3 ML PEN SUBCUT SCH ×2 (10:32→22:32)
[2016-11-18] MEDS: TIOTROPIUM BROMIDE DPI 5 CAP/KIT (18 MCG/CAP) IH SCH (10:33)
[2016-11-18] MEDS: INSULIN REG, HUMAN 100 UNIT/ML 3 ML VIAL (PYX) SUBCUT PRN ×3 (12:23→22:32)
[2016-11-18] MEDS: ONDANSETRON HCL INJ/PF 4 MG/2 ML SDV IV PRN (14:00)
[2016-11-18] MEDS: HYDROMORPHONE HCL INJ/PF 2 MG/ML AMPULE IV PRN (20:42)
[2016-11-18] MEDS: ATORVASTATIN CALCIUM 40 MG TABLET PO SCH (22:36)
[2016-11-18] MEDS: NORMAL SALINE 10 ML SDV (AFTER EACH USE) IV PRN (22:50)
[2016-11-19] MEDS: HYDROMORPHONE HCL INJ/PF 2 MG/ML AMPULE IV PRN ×4 (00:51→20:45)
[2016-11-19] MEDS: NORMAL SALINE 10 ML SDV (SCHEDULED) IV SCH ×3 (00:52→22:29)
[2016-11-19] MEDS: GABAPENTIN 300 MG CAPSULE PO SCH ×4 (00:52→17:37)
[2016-11-19] MEDS: TRAMADOL HCL 50 MG TABLET PO PRN (00:53)
[2016-11-19] MEDS: INSULIN REG, HUMAN 100 UNIT/ML 3 ML VIAL (PYX) SUBCUT PRN (08:07)
[2016-11-19] MEDS: ENOXAPARIN SODIUM INJ 40 MG/0.4 ML DISP.SYRIN SUBCUT SCH (10:11)
[2016-11-19] MEDS: NITROFURANTOIN MONOHYD/M-CRYST 100 MG CAPSULE PO SCH ×2 (10:11→17:36)
[2016-11-19] MEDS: METFORMIN HCL 500 MG TABLET PO SCH ×2 (10:11→17:37)
[2016-11-19] MEDS: SPIRONOLACTONE 25 MG TABLET PO SCH (10:11)
[2016-11-19] MEDS: DULOXETINE HCL 30 MG CAPSULE.DR PO SCH ×2 (10:11→22:27)
[2016-11-19] MEDS: ASPIRIN 81 MG TABLET, CHEWABLE PO SCH (10:11)
[2016-11-19] MEDS: MAGNESIUM OXIDE 400 MG TABLET PO SCH (10:11)
[2016-11-19] MEDS: INSULIN DETEMIR 100 UNIT/ML 3 ML PEN SUBCUT SCH ×2 (10:12→22:35)
[2016-11-19] MEDS: CLOPIDOGREL BISULFATE 75 MG TABLET PO SCH (10:12)
[2016-11-19] MEDS: LISINOPRIL 5 MG TABLET PO SCH (10:12)
[2016-11-19] MEDS: FLUTICASONE/SALMETEROL DISKUS 250-50 MCG/DOSE IH SCH ×2 (10:12→22:28)
[2016-11-19] MEDS: METOPROLOL SUCCINATE 50 MG TAB.SR.24H PO SCH (10:12)
[2016-11-19] MEDS: TIOTROPIUM BROMIDE DPI 5 CAP/KIT (18 MCG/CAP) IH SCH (10:13)
[2016-11-19] MEDS: ONDANSETRON HCL INJ/PF 4 MG/2 ML SDV IV PRN ×2 (14:43→20:45)
[2016-11-19] MEDS: NORMAL SALINE 10 ML SDV (AFTER EACH USE) IV PRN (20:46)
[2016-11-19] MEDS: ATORVASTATIN CALCIUM 40 MG TABLET PO SCH (22:26)
[2016-11-20] MEDS: GABAPENTIN 300 MG CAPSULE PO SCH ×4 (00:12→18:25)
[2016-11-20] MEDS: ONDANSETRON HCL INJ/PF 4 MG/2 ML SDV IV PRN ×2 (01:50→10:37)
[2016-11-20] MEDS: HYDROMORPHONE HCL INJ/PF 2 MG/ML AMPULE IV PRN ×3 (01:50→10:42)
[2016-11-20] MEDS: DULOXETINE HCL 30 MG CAPSULE.DR PO SCH ×2 (10:34→21:22)
[2016-11-20] MEDS: NITROFURANTOIN MONOHYD/M-CRYST 100 MG CAPSULE PO SCH ×2 (10:34→18:25)
[2016-11-20] MEDS: MAGNESIUM OXIDE 400 MG TABLET PO SCH (10:35)
[2016-11-20] MEDS: SPIRONOLACTONE 25 MG TABLET PO SCH (10:35)
[2016-11-20] MEDS: METOPROLOL SUCCINATE 50 MG TAB.SR.24H PO SCH (10:35)
[2016-11-20] MEDS: METFORMIN HCL 500 MG TABLET PO SCH (10:36)
[2016-11-20] MEDS: CLOPIDOGREL BISULFATE 75 MG TABLET PO SCH (10:36)
[2016-11-20] MEDS: ASPIRIN 81 MG TABLET, CHEWABLE PO SCH (10:36)
[2016-11-20] MEDS: FLUTICASONE/SALMETEROL DISKUS 250-50 MCG/DOSE IH SCH (10:37)
[2016-11-20] MEDS: ENOXAPARIN SODIUM INJ 40 MG/0.4 ML DISP.SYRIN SUBCUT SCH (10:38)
[2016-11-20] MEDS: ALBUTEROL SULFATE HFA (90 MCG/PUFF) 200 PUFF/8.5 GM MDI IH PRN (10:39)
[2016-11-20] MEDS: NORMAL SALINE 10 ML SDV (SCHEDULED) IV SCH (10:40)
[2016-11-20] MEDS: INSULIN DETEMIR 100 UNIT/ML 3 ML PEN SUBCUT SCH ×2 (10:40→22:52)
[2016-11-20] MEDS: TIOTROPIUM BROMIDE DPI 5 CAP/KIT (18 MCG/CAP) IH SCH (10:41)
[2016-11-20] MEDS: LISINOPRIL 5 MG TABLET PO SCH (10:57)
[2016-11-20] MEDS ORDERED: SUCCINYLCHOLINE CHLORIDE INJ 200 MG/10 ML VIAL ONE (11:25)
[2016-11-20] MEDS: INSULIN REG, HUMAN 100 UNIT/ML 3 ML VIAL (PYX) SUBCUT PRN ×2 (13:27→23:22)
[2016-11-20 16:21] LABS: ARTERIAL BLOOD BASE EXCESS -8.5 mmol/L; ARTERIAL BLOOD O2 SATURATION 73.9 % (94-98)
--- NOTE | 2016-11-20 16:55 | PDOC PROGRESS REPORT ---
Subjective Progress Note for:: 11/20/16 Subjective:: Patient was discharged initially on 11/14 but she change her mind and she want to be discharged to [facility] for [facility]. She was waiting for bed placement, today she was noticed to be unresponsive, blood gas was done, pH 6.92, PCO2 135.2. Consistent with acute hypercapnic respiratory failure, patient is intubated and transfer to ICU Physical Exam Vital Signs: Temp Pulse Resp BP Pulse Ox 98.7 F 76 18 114/51 L 93 11/20/16 11:09 11/20/16 14:00 11/20/16 11:09 11/20/16 11:09 11/20/16 11:09 Intake & Output 11/19/16 11/20/16 11/21/16 06:59 06:59 06:59 Intake Total 2285 2371 598 Output Total 1000 800 Balance 1285 1571 598 Weight 121 kg 121.3 kg General appearance: PRESENT: severe distress Respiratory exam: PRESENT: wheezes Cardiovascular exam: PRESENT: +S1, +S2 GI/Abdominal exam: PRESENT: soft Neurological exam: PRESENT: altered Results Laboratory Results: 11/11/16 05:07 11/13/16 05:40 11/20/16 15:42 Carbonic Acid 4.07 H HCO3/H2CO3 Ratio 6:1 ABG pH 6.92 L* ABG pCO2 135.2 H* ABG pO2 65.1 L ABG HCO3 27.0 H ABG O2 Saturation 73.9 L ABG Base Excess -8.5 FiO2 100% 11/07/16 11/07/16 11/07/16 18:12 18:12 18:12 Creatine Kinase 33 CK-MB (CK-2) 1.10 Troponin I 0.018 NT-Pro-B Natriuret Pep 2110 H 11/08/16 11/08/16 11/08/16 00:35 00:35 05:54 Creatine Kinase 40 CK-MB (CK-2) 1.24 1.48 Troponin I 0.014 0.016 NT-Pro-B Natriuret Pep 11/08/16 05:54 Creatine Kinase 30 CK-MB (CK-2) Troponin I NT-Pro-B Natriuret Pep Impressions: Chest X-Ray 11/07/16 12:13 IMPRESSION: NO ACUTE RADIOGRAPHIC FINDING IN THE CHEST. Guidance Fluoroscopy 11/08/16 00:00 IMPRESSION: SUCCESSFUL PLACEMENT OF A 5 FR DUAL LUMEN 44 CM PICC IN THE LEFT BASILIC VEIN. Interventional Vascular Procedure 11/08/16 00:00 IMPRESSION: SUCCESSFUL PLACEMENT OF A 5 FR DUAL LUMEN 44 CM PICC IN THE LEFT BASILIC VEIN. PICC Line Insertion 11/08/16 00:00 IMPRESSION: SUCCESSFUL PLACEMENT OF A 5 FR DUAL LUMEN 44 CM PICC IN THE LEFT BASILIC VEIN. Knee X-Ray 11/10/16 00:00 IMPRESSION: NEGATIVE STUDY OF THE LEFT KNEE. NO RADIOGRAPHIC EVIDENCE OF ACUTE INJURY. Lumbar Spine X-Ray 11/10/16 00:00 IMPRESSION: Possible new minimal compression fractures of L2 and L5. Generalized osteopenia. Chronic T12 compression fracture. Lumbar Spine MRI 11/13/16 00:00 IMPRESSION: No acute findings in the lumbar spine. Assessment & Plan - Diagnosis (1) Acute hypercapnic respiratory failure Is this a current diagnosis for this admission?: Yes (2) Diabetes mellitus type 2 in obese Is this a current diagnosis for this admission?: Yes (3) Peripheral vascular disease Is this a current diagnosis for this admission?: Yes (4) COPD (chronic obstructive pulmonary disease) Qualifiers: COPD type: COPD with acute exacerbation Qualified Code(s): J44.1 - Chronic obstructive pulmonary disease with (acute) exacerbation Is this a current diagnosis for this admission?: Yes (5) Coronary artery disease Qualifiers: Coronary Disease-Associated Artery/Lesion type: [place] artery [place] vs. transplanted heart: [place] heart Associated angina: angina presence unspecified Qualified Code(s): I25.10 - Atherosclerotic heart disease of [place] coronary artery without angina pectoris Is this a current diagnosis for this admission?: Yes (6) Physical deconditioning Is this a current diagnosis for this admission?: Yes (7) Urinary tract infection Qualifiers: Urinary tract infection type: site unspecified Hematuria presence: without hematuria Qualified Code(s): N39.0 - Urinary tract infection, site not specified Is this a current diagnosis for this admission?: Yes (8) Enterococcus UTI Is this a current diagnosis for this admission?: Yes - Plan Summary Plan Summary: Patient decompensated from a respiratory standpoint this is probably from multiple factors including advanced COPD, medication with Dilaudid, infection, she is intubated on mechanical ventilation initial vent setting is ordered, she was transferred to ICU for management. Start IV Solu-Medrol 125 mg every 8 DuoNeb every hour.
[2016-11-20 17:22] LABS: ANION GAP 8 (5-19); BLOOD UREA NITROGEN 25 mg/dL (7-20); CALCIUM 8.9 mg/dL (8.4-10.2); CARBON DIOXIDE 32 mmol/L (22-30); CHLORIDE 99 mmol/L (98-107); CREATINE KINASE 51 U/L (30-135); CREATININE RESULT 0.92 mg/dL (0.52-1.25); GLUCOSE 225 mg/dL (75-110); SODIUM 139.4 mmol/L (137-145)
[2016-11-20 17:25] LABS: POTASSIUM 6.2 mmol/L (3.6-5.0)
[2016-11-20] MEDS: IPRATROPIUM/ALBUTEROL 0.5-2.5 MG/3 ML AMPUL NEB SCH ×3 (17:28→22:26)
[2016-11-20 17:34] LABS: CREATINE KINASE MB 2.04 ng/mL (<4.55)
[2016-11-20] MEDS ORDERED: PROPOFOL INJ 200 MG/20 ML VIAL IV ONE (17:34)
[2016-11-20 17:36] LABS: TROPONIN I < 0.012 ng/mL
[2016-11-20] MEDS ORDERED: CALCIUM GLUCONATE 1000 MG/10 ML INJ IV ONE (17:39)
[2016-11-20] MEDS ORDERED: INSULIN REG, HUMAN 100 UNIT/ML 3 ML VIAL (PYX) ONE (17:39)
[2016-11-20] MEDS ORDERED: NOREPINEPHRINE BITARTRATE INJ/PF 4 MG/4 ML SDV IV ONE (17:40)
[2016-11-20] MEDS ORDERED: DEXTROSE 50%-WATER 25 GM/50 ML DISP.SYRIN IV ONE (17:41)
[2016-11-20 17:45] LABS: APPEARANCE,URINE CLEAR; BILIRUBIN,URINE NEGATIVE (NEGATIVE); GLUCOSE, URINE NEGATIVE (NEGATIVE); KETONES,URINE NEGATIVE (NEGATIVE); LEUKOCYTE ESTERASE,URINE NEGATIVE (NEGATIVE); NITRITE,URINE NEGATIVE (NEGATIVE); PROTEIN,URINE NEGATIVE (NEGATIVE); URINE SPECIFIC GRAVITY 1.013; UROBILINOGEN,URINE NEGATIVE mg/dL (<2.0)
[2016-11-20] MEDS: NORMAL SALINE 1000 ML 1,000 ML IV PRN (18:24)
[2016-11-20] MEDS: IPRATROPIUM/ALBUTEROL 0.5-2.5 MG/3 ML AMPUL NEB PRN (18:26)
[2016-11-20] MEDS ORDERED: DEXTROSE 5%-WATER 250 ML with NOREPINEPHRINE BITARTRATE 4 MG IV PRN ×2 (18:28)
[2016-11-20] MEDS ORDERED: PHARMACY COMMUNICATION ORDER MC NR (18:30)
[2016-11-20] MEDS: METHYLPREDNISOLONE INJ 125 MG/2 ML SDV IV SCH (18:33)
[2016-11-20] MEDS: FAMOTIDINE INJ/PF 20 MG/2 ML SDV IV SCH (18:34)
[2016-11-20] MEDS: PROPOFOL 100 ML IV PRN ×4 (18:37→23:48)
[2016-11-20 18:40] LABS: ARTERIAL BLOOD BASE EXCESS -0.1 mmol/L; ARTERIAL BLOOD O2 SATURATION 98.5 % (94-98)
--- NOTE | 2016-11-20 18:43 | PDOC CONSULTATION ---
Consultation Consult Date: 11/20/16 Attending physician:: TANISHA POLLARD Consult reason:: chronic resp failure History of Present Illness Admission Date/PCP: 11/07/16 17:36 TANISHA POLLARD MD History of Present Illness: TORREY MARKS is a 65 year old female awaiting placement not responding at baseline difficult to arouse; ABG hypercapnic resp failure severe resp acidosis taken to ICU intubated,sedated Past Medical History Cardiac Medical History: Reports: Congestive Heart Failure, Coronary Artery Disease, Hyperlipidema, Hypertension, Peripheral Vascular Disease Denies: Heart Murmur Pulmonary Medical History: Reports: Asthma, Bronchitis, Chronic Obstructive Pulmonary Disease (COPD), Respiratory Failure, Sleep Apnea Denies: Tuberculosis Neurological Medical History: Reports: Migraine Denies: Seizures Endocrine Medical History: Reports: Diabetes Mellitus Type 1, Diabetes Mellitus Type 2 Renal/ Medical History: Malignancy Medical History: GI Medical History: Musculoskeltal Medical History: Reports: Arthritis, Fibromyalgia Psychiatric Medical History: Reports: Depression Denies: Attention Deficit Hyperactivity Disorder Infectious Medical History: Reports: Clostridium Difficile, Methicillin- Resistant Staph Aureus Past Surgical History Past Surgical History: Reports: Amputation, Appendectomy, Cardiac Catheterization, Cholecystectomy, Coronary Stent, Hysterectomy, Orthopedic Surgery - right shoulder, Tubal Ligation, Vascular Surgery Social History Information Source: [facility] Records Smoking Status: Current Every Day Smoker Frequency of Alcohol Use: None Hx Recreational Drug Use: No Drugs: None Hx Prescription Drug Abuse: No - Advance Directive Resuscitation Status: Full Code Family History Family History: Reviewed & Not Pertinent, Hypertension, Other - Alzheimer's, renal failure Parental Family History Reviewed: No Children Family History Reviewed: No Sibling(s) Family History Reviewed.: No Medication/Allergy Home Medications: Albuterol Sulfate [Proair HFA] 2 puff IH Q4HP PRN 11/07/16 Aspirin [Aspirin 81 mg Chewable Tablet] 81 mg PO DAILY 11/07/16 Atorvastatin Calcium [Lipitor 40 mg Tablet] 40 mg PO QHS 11/07/16 Clopidogrel Bisulfate [Plavix 75 mg Tablet] 75 mg PO DAILY 11/07/16 Duloxetine HCl [Cymbalta] 60 mg PO DAILY 11/07/16 Fluticasone/Salmeterol [Advair 250-50 Diskus 14 Dose/Diskus] 1 inh IH Q12 Gabapentin [Neurontin 300 mg Capsule] 300 mg PO Q8 11/07/16 Insulin Aspart [Novolog Flexpen] 8 unit SQ TID 11/07/16 Insulin Detemir [Levemir Flextouch] 50 unit SQ BID 11/07/16 Lisinopril [Prinivil 2.5 mg Tablet] 2.5 mg PO DAILY 11/07/16 Magnesium Oxide [Magnesium] 400 mg PO DAILY 11/07/16 Melatonin [Melatin] 6 mg PO QHS 11/07/16 Metformin HCl [Metformin HCl ER] 500 mg PO QPM 11/07/16 Metoprolol Succinate [Toprol Xl 50 mg Tab.sr] 50 mg PO DAILY 11/07/16 Pioglitazone HCl [Actos] 45 mg PO DAILY 11/07/16 Simethicone [Gas Relief 80] 80 mg PO QIDP PRN 11/07/16 Spironolactone [Aldactone 25 mg Tablet] 25 mg PO DAILY 11/07/16 Tiotropium [place] [Spiriva Handihaler 18 mcg/dose (30 Dose)] 1 cap IH DAILY Tramadol HCl/Acetaminophen [Ultracet 37.5 mg/325 mg Tablet] 1 each PO Q6 Nitrofurantoin Monohyd/M-Cryst [Macrobid 100 mg Capsule] 100 mg PO BID #20 capsule 11/14/16 Allergies/Adverse Reactions: codeine [Codeine] Adverse Reaction (Unknown, Verified 08/23/16 08:03) Review of Systems ROS unobtainable: Due to endotracheal tube Physical Exam Vital Signs: Temp Pulse Resp BP Pulse Ox 98.7 F 78 20 114/51 L 97 11/20/16 11:09 11/20/16 17:43 11/20/16 17:43 11/20/16 11:09 11/20/16 17:43 Intake & Output 11/19/16 11/20/16 11/21/16 06:59 06:59 06:59 Intake Total 2285 2371 598 Output Total 1000 800 Balance 1285 1571 598 Weight 121 kg 121.3 kg General appearance: PRESENT: no acute distress, disheveled, morbidly obese, well -developed Head exam: PRESENT: atraumatic, normocephalic Eye exam: PRESENT: conjunctiva pale Mouth exam: PRESENT: dry mucosa, neck supple, tongue midline, other - ET tube in place Neck exam: ABSENT: carotid bruit, JVD, lymphadenopathy, thyromegaly Respiratory exam: PRESENT: crackles, decreased breath sounds, prolonged expiratory phas, rhonchi, symmetrical, unlabored, wheezes. ABSENT: retraction, stridor, tachypnea Cardiovascular exam: PRESENT: RRR, +S1, +S2 Pulses: PRESENT: normal radial pulses GI/Abdominal exam: PRESENT: normal bowel sounds, soft. ABSENT: distended, guarding, mass, organolmegaly, rebound, tenderness Rectal exam: PRESENT: deferred Gentrourinary exam: PRESENT: indwelling catheter Musculoskeletal exam: PRESENT: normal inspection Neurological exam: ABSENT: alert, awake Psychiatric exam: ABSENT: normal mood Skin exam: PRESENT: dry, warm Results Laboratory Results: 11/20/16 16:50 11/20/16 11/20/16 11/20/16 15:42 16:50 17:20 Carbonic Acid 4.07 H HCO3/H2CO3 Ratio 6:1 ABG pH 6.92 L* ABG pCO2 135.2 H* ABG pO2 65.1 L ABG HCO3 27.0 H ABG O2 Saturation 73.9 L ABG Base Excess -8.5 FiO2 100% Sodium 139.4 Potassium 6.2 H* Chloride 99 Carbon Dioxide 32 H Anion Gap 8 BUN 25 H Creatinine 0.92 Est GFR ( Amer) > 60 Est GFR (Non-Af Amer) > 60 Glucose 225 H Calcium 8.9 Urine Color YELLOW Urine Appearance CLEAR Urine pH 5.0 Ur Specific [place] 1.013 Urine Protein NEGATIVE Urine Glucose (UA) NEGATIVE Urine Ketones NEGATIVE Urine Blood MODERATE H Urine Nitrite NEGATIVE Ur Leukocyte Esterase NEGATIVE Urine WBC (Auto) 2 Urine RBC (Auto) 3 11/07/16 11/07/16 11/07/16 18:12 18:12 18:12 Creatine Kinase 33 CK-MB (CK-2) 1.10 Troponin I 0.018 NT-Pro-B Natriuret Pep 2110 H 11/08/16 11/08/16 11/08/16 00:35 00:35 05:54 Creatine Kinase 40 CK-MB (CK-2) 1.24 1.48 Troponin I 0.014 0.016 NT-Pro-B Natriuret Pep 11/08/16 11/20/16 11/20/16 05:54 16:50 16:50 Creatine Kinase 30 51 CK-MB (CK-2) 2.04 Troponin I < 0.012 NT-Pro-B Natriuret Pep Impressions: Guidance Fluoroscopy 11/08/16 00:00 IMPRESSION: SUCCESSFUL PLACEMENT OF A 5 FR DUAL LUMEN 44 CM PICC IN THE LEFT BASILIC VEIN. Interventional Vascular Procedure 11/08/16 00:00 IMPRESSION: SUCCESSFUL PLACEMENT OF A 5 FR DUAL LUMEN 44 CM PICC IN THE LEFT BASILIC VEIN. PICC Line Insertion 11/08/16 00:00 IMPRESSION: SUCCESSFUL PLACEMENT OF A 5 FR DUAL LUMEN 44 CM PICC IN THE LEFT BASILIC VEIN. Knee X-Ray 11/10/16 00:00 IMPRESSION: NEGATIVE STUDY OF THE LEFT KNEE. NO RADIOGRAPHIC EVIDENCE OF ACUTE INJURY. Lumbar Spine X-Ray 11/10/16 00:00 IMPRESSION: Possible new minimal compression fractures of L2 and L5. Generalized osteopenia. Chronic T12 compression fracture. Lumbar Spine MRI 11/13/16 00:00 IMPRESSION: No acute findings in the lumbar spine. 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
[2016-11-20] MEDS ORDERED: DEXTROSE 40% GEL 15 GM TUBE NG PRN ×2 (19:55)
[2016-11-20] MEDS: AMPICILLIN SODIUM/SULBACTAM NA 3 GM in NORMAL SALINE 100 ML IV SCH (21:01)
[2016-11-20] MEDS: ATORVASTATIN CALCIUM 40 MG TABLET NG SCH (21:22)
[2016-11-20 21:26] LABS: HEMATOCRIT 30.2 % (36.0-47.0); HEMOGLOBIN 10.4 g/dL (12.0-15.5); MEAN CORPUSCULAR HEMOGLOBIN 31.5 pg (27.0-33.4); MEAN CORPUSCULAR HGB CONC 34.5 g/dL (32.0-36.0); MEAN CORPUSCULAR VOLUME 91 fl (80-97); RED BLOOD COUNT 3.31 10^6/uL (3.72-5.28); RED CELL DISTRIBUTION WIDTH 14.6 % (11.5-14.0); WHITE BLOOD COUNT 11.4 10^3/uL (4.0-10.5)
--- NOTE | 2016-11-20 22:11 | RADIOLOGY REPORT (SQ) ---
EXAM DESCRIPTION: CHEST SINGLE VIEW COMPLETED DATE/TIME: 11/20/2016 5:46 pm REASON FOR STUDY: ET/NG Tube Placement COMPARISON: 11/08/2016 EXAM PARAMETERS: NUMBER OF VIEWS: One view. TECHNIQUE: Single frontal radiographic view of the chest acquired. RADIATION DOSE: NA LIMITATIONS: None. FINDINGS: LUNGS AND PLEURA: Mild interstitial thickening. No consolidation or significant effusion. No pneumothorax. MEDIASTINUM AND HILAR STRUCTURES: Stable. HEART AND VASCULAR STRUCTURES: Stable cardiomegaly. BONES: No acute findings. HARDWARE: Endotracheal tube tip overlies the mid trachea approximately 3.5 cm above the level of the jessica. Nasogastric catheter tip overlies the body of the stomach. Left-sided PICC line catheter ti p overlies the SVC above the level of the jessica. OTHER: No other significant finding. IMPRESSION: Mild interstitial thickening. Endotracheal tube tip overlies the mid trachea approximate ly 3.5 cm above the level of the jessica. Nasogastric catheter tip overlies the body of the stomach. Left-sided PICC line catheter tip overlies the SVC above the level of the jessica. TECHNICAL DOCUMENTATION: JOB ID: [id number]
[2016-11-20] MEDS: GABAPENTIN 300 MG CAPSULE NG SCH (23:22)
[2016-11-21] MEDS: IPRATROPIUM/ALBUTEROL 0.5-2.5 MG/3 ML AMPUL NEB SCH ×10 (00:10→20:05)
[2016-11-21] MEDS: METHYLPREDNISOLONE INJ 125 MG/2 ML SDV IV SCH ×3 (01:21→17:18)
[2016-11-21] MEDS: NORMAL SALINE 1000 ML 1,000 ML IV PRN ×2 (01:21→20:42)
[2016-11-21] MEDS: PROPOFOL 100 ML IV PRN ×10 (02:02→22:59)
[2016-11-21] MEDS: AMPICILLIN SODIUM/SULBACTAM NA 3 GM in NORMAL SALINE 100 ML IV SCH ×4 (02:55→20:43)
[2016-11-21] MEDS: FAMOTIDINE INJ/PF 20 MG/2 ML SDV IV SCH ×2 (05:39→17:18)
[2016-11-21] MEDS: GABAPENTIN 300 MG CAPSULE NG SCH ×3 (05:39→17:18)
[2016-11-21 05:45] LABS: ARTERIAL BLOOD BASE EXCESS -3.6 mmol/L; ARTERIAL BLOOD O2 SATURATION 93.6 % (94-98)
[2016-11-21 05:57] LABS: HEMATOCRIT 29.3 % (36.0-47.0); HEMOGLOBIN 9.8 g/dL (12.0-15.5); HGB HCT DIFFERENCE 0.1; MEAN CORPUSCULAR HEMOGLOBIN 30.8 pg (27.0-33.4); MEAN CORPUSCULAR HGB CONC 33.5 g/dL (32.0-36.0); MEAN CORPUSCULAR VOLUME 92 fl (80-97); RED BLOOD COUNT 3.19 10^6/uL (3.72-5.28); RED CELL DISTRIBUTION WIDTH 14.5 % (11.5-14.0); WHITE BLOOD COUNT 11.3 10^3/uL (4.0-10.5)
[2016-11-21 06:03] LABS: PROTHROMBIN TIME 13.2 SEC (11.4-15.4)
[2016-11-21 06:04] LABS: PARTIAL THROMBOPLASTIN TIME 28.3 SEC (23.5-35.8)
[2016-11-21 06:09] LABS: ALANINE AMINOTRANSFERASE 22 U/L (9-52); ALBUMIN 3.2 g/dL (3.5-5.0); ALKALINE PHOSPHATASE 80 U/L (38-126); ASPARTATE AMINO TRANSFERASE 11 U/L (14-36); BLOOD UREA NITROGEN 21 mg/dL (7-20); CALCIUM 8.2 mg/dL (8.4-10.2); CHLORIDE 98 mmol/L (98-107); GLUCOSE 327 mg/dL (75-110); MAGNESIUM 1.8 mg/dL (1.6-2.3); PHOSPHORUS 3.7 mg/dL (2.5-4.5); SODIUM 132.2 mmol/L (137-145); TOTAL PROTEIN 5.2 g/dL (6.3-8.2)
[2016-11-21 06:25] LABS: BAND NEUTROPHILS % (MANUAL) 1 % (3-5); BASOPHILS % (MANUAL) 0 % (0-2); BURR CELLS 1+; EOSINOPHILS % (MANUAL) 0 % (0-6); LYMPHOCYTES % (MANUAL) 0 % (13-45); TOTAL CELLS COUNTED 100
[2016-11-21 06:26] LABS: ANION GAP 16 (5-19)
[2016-11-21 06:37] LABS: BILIRUBIN,TOTAL < 0.1 mg/dL (0.2-1.3)
[2016-11-21 06:52] LABS: CARBON DIOXIDE 18 mmol/L (22-30); POTASSIUM 4.3 mmol/L (3.6-5.0)
--- NOTE | 2016-11-21 07:01 | RADIOLOGY REPORT (SQ) ---
EXAM DESCRIPTION: CHEST SINGLE VIEW CLINICAL HISTORY: 65 years, Female, hypercapnic respiratory failure COMPARISON: Yesterday's chest radiograph at 1738 hours. NUMBER OF VIEWS: 1 TECHNIQUE: Routine portable AP chest radiograph protocol. LIMITATIONS: None. FINDINGS: Lines and tubes remain in appropriate position. Unchanged mild pulmonary congestion and panchamber cardiac enlargement. No pneumothorax. IMPRESSION: Unchanged chest radiograph. 2011 [employer]- All Rights Reserved
--- NOTE | 2016-11-21 07:48 | PDOC PROGRESS REPORT ---
Subjective Progress Note for:: 11/21/16 Subjective:: intubated sedated Physical Exam Vital Signs: Temp Pulse Resp BP Pulse Ox 97.2 F 94 22 H 99/45 L 94 11/21/16 05:43 11/21/16 06:35 11/21/16 06:35 11/21/16 06:29 11/21/16 06:29 Intake & Output 11/20/16 11/21/16 11/22/16 06:59 06:59 06:59 Intake Total 2371 2858 Output Total 800 1400 Balance 1571 1458 Weight 121.3 kg 121.5 kg General appearance: PRESENT: no acute distress, disheveled, obese, well- developed Head exam: PRESENT: atraumatic, normocephalic, other Eye exam: PRESENT: conjunctiva pale Mouth exam: PRESENT: dry mucosa, neck supple, tongue midline, other - ET tube Neck exam: ABSENT: carotid bruit, JVD, lymphadenopathy, thyromegaly Respiratory exam: PRESENT: decreased breath sounds, prolonged expiratory phas, rales, rhonchi, symmetrical, unlabored, wheezes. ABSENT: retraction, stridor, tachypnea Cardiovascular exam: PRESENT: RRR, +S1 Pulses: PRESENT: normal radial pulses GI/Abdominal exam: PRESENT: normal bowel sounds, soft. ABSENT: distended, guarding, mass, organolmegaly, rebound, tenderness Rectal exam: PRESENT: deferred Gentrourinary exam: PRESENT: indwelling catheter Extremities exam: PRESENT: +1 edema Neurological exam: ABSENT: alert, awake Skin exam: PRESENT: dry, warm Results Laboratory Results: 11/21/16 05:20 11/21/16 05:20 11/20/16 11/20/16 11/20/16 15:42 16:50 16:50 WBC Cancelled RBC Cancelled Hgb Cancelled Hct Cancelled MCV Cancelled MCH Cancelled MCHC Cancelled RDW Cancelled Plt Count Cancelled Seg Neutrophils % Lymphocytes % Monocytes % Eosinophils % Basophils % Absolute Neutrophils Absolute Lymphocytes Absolute Monocytes Absolute Eosinophils Absolute Basophils Carbonic Acid 4.07 H HCO3/H2CO3 Ratio 6:1 ABG pH 6.92 L* ABG pCO2 135.2 H* ABG pO2 65.1 L ABG HCO3 27.0 H ABG O2 Saturation 73.9 L ABG Base Excess -8.5 FiO2 100% Sodium 139.4 Potassium 6.2 H* Chloride 99 Carbon Dioxide 32 H Anion Gap 8 BUN 25 H Creatinine 0.92 Est GFR ( Amer) > 60 Est GFR (Non-Af Amer) > 60 Glucose 225 H Calcium 8.9 Phosphorus Magnesium Total Bilirubin AST ALT Alkaline Phosphatase Total Protein Albumin Urine Color Urine Appearance Urine pH Ur Specific [place] Urine Protein Urine Glucose (UA) Urine Ketones Urine Blood Urine Nitrite Ur Leukocyte Esterase Urine WBC (Auto) Urine RBC (Auto) 11/20/16 11/20/16 11/20/16 17:20 18:15 18:30 WBC RBC Hgb Hct MCV MCH MCHC RDW Plt Count Seg Neutrophils % Lymphocytes % Monocytes % Eosinophils % Basophils % Absolute Neutrophils Absolute Lymphocytes Absolute Monocytes Absolute Eosinophils Absolute Basophils Carbonic Acid Cancelled 1.64 H HCO3/H2CO3 Ratio Cancelled 16:1 ABG pH Cancelled 7.31 L ABG pCO2 Cancelled 54.4 H ABG pO2 Cancelled 138.7 H ABG HCO3 Cancelled 26.8 H ABG O2 Saturation Cancelled 98.5 H ABG Base Excess Cancelled -0.1 FiO2 Cancelled 40% Sodium Potassium Chloride Carbon Dioxide Anion Gap BUN Creatinine Est GFR ( Amer) Est GFR (Non-Af Amer) Glucose Calcium Phosphorus Magnesium Total Bilirubin AST ALT Alkaline Phosphatase Total Protein Albumin Urine Color YELLOW Urine Appearance CLEAR Urine pH 5.0 Ur Specific [place] 1.013 Urine Protein NEGATIVE Urine Glucose (UA) NEGATIVE Urine Ketones NEGATIVE Urine Blood MODERATE H Urine Nitrite NEGATIVE Ur Leukocyte Esterase NEGATIVE Urine WBC (Auto) 2 Urine RBC (Auto) 3 11/20/16 11/21/16 11/21/16 21:05 05:17 05:20 WBC 11.4 H 11.3 H RBC 3.31 L 3.19 L Hgb 10.4 L 9.8 L Hct 30.2 L 29.3 L MCV 91 92 MCH 31.5 30.8 MCHC 34.5 33.5 RDW 14.6 H 14.5 H Plt Count 281 274 Seg Neutrophils % Not Reportable Lymphocytes % Not Reportable Monocytes % Not Reportable Eosinophils % Not Reportable Basophils % Not Reportable Absolute Neutrophils Not Reportable Absolute Lymphocytes Not Reportable Absolute Monocytes Not Reportable Absolute Eosinophils Not Reportable Absolute Basophils Not Reportable Carbonic Acid 1.50 H HCO3/H2CO3 Ratio 15:1 ABG pH 7.29 L ABG pCO2 49.9 H ABG pO2 76.0 L ABG HCO3 23.3 ABG O2 Saturation 93.6 L ABG Base Excess -3.6 FiO2 35% Sodium Potassium Chloride Carbon Dioxide Anion Gap BUN Creatinine Est GFR ( Amer) Est GFR (Non-Af Amer) Glucose Calcium Phosphorus Magnesium Total Bilirubin AST ALT Alkaline Phosphatase Total Protein Albumin Urine Color Urine Appearance Urine pH Ur Specific [place] Urine Protein Urine Glucose (UA) Urine Ketones Urine Blood Urine Nitrite Ur Leukocyte Esterase Urine WBC (Auto) Urine RBC (Auto) 11/21/16 05:20 WBC RBC Hgb Hct MCV MCH MCHC RDW Plt Count Seg Neutrophils % Lymphocytes % Monocytes % Eosinophils % Basophils % Absolute Neutrophils Absolute Lymphocytes Absolute Monocytes Absolute Eosinophils Absolute Basophils Carbonic Acid HCO3/H2CO3 Ratio ABG pH ABG pCO2 ABG pO2 ABG HCO3 ABG O2 Saturation ABG Base Excess FiO2 Sodium 132.2 L Potassium 4.3 D Chloride 98 Carbon Dioxide 18 L D Anion Gap 16 BUN 21 H Creatinine 0.70 Est GFR ( Amer) > 60 Est GFR (Non-Af Amer) > 60 Glucose 327 H Calcium 8.2 L Phosphorus 3.7 Magnesium 1.8 Total Bilirubin < 0.1 L AST 11 L ALT 22 Alkaline Phosphatase 80 Total Protein 5.2 L Albumin 3.2 L Urine Color Urine Appearance Urine pH Ur Specific [place] Urine Protein Urine Glucose (UA) Urine Ketones Urine Blood Urine Nitrite Ur Leukocyte Esterase Urine WBC (Auto) Urine RBC (Auto) 11/07/16 11/07/16 11/07/16 18:12 18:12 18:12 Creatine Kinase 33 CK-MB (CK-2) 1.10 Troponin I 0.018 NT-Pro-B Natriuret Pep 2110 H 11/08/16 11/08/16 11/08/16 00:35 00:35 05:54 Creatine Kinase 40 CK-MB (CK-2) 1.24 1.48 Troponin I 0.014 0.016 NT-Pro-B Natriuret Pep 11/08/16 11/20/16 11/20/16 05:54 16:50 16:50 Creatine Kinase 30 51 CK-MB (CK-2) 2.04 Troponin I < 0.012 NT-Pro-B Natriuret Pep Impressions: Guidance Fluoroscopy 11/08/16 00:00 IMPRESSION: SUCCESSFUL PLACEMENT OF A 5 FR DUAL LUMEN 44 CM PICC IN THE LEFT BASILIC VEIN. Interventional Vascular Procedure 11/08/16 00:00 IMPRESSION: SUCCESSFUL PLACEMENT OF A 5 FR DUAL LUMEN 44 CM PICC IN THE LEFT BASILIC VEIN. PICC Line Insertion 11/08/16 00:00 IMPRESSION: SUCCESSFUL PLACEMENT OF A 5 FR DUAL LUMEN 44 CM PICC IN THE LEFT BASILIC VEIN. Knee X-Ray 11/10/16 00:00 IMPRESSION: NEGATIVE STUDY OF THE LEFT KNEE. NO RADIOGRAPHIC EVIDENCE OF ACUTE INJURY. Lumbar Spine X-Ray 11/10/16 00:00 IMPRESSION: Possible new minimal compression fractures of L2 and L5. Generalized osteopenia. Chronic T12 compression fracture. Lumbar Spine MRI 11/13/16 00:00 IMPRESSION: No acute findings in the lumbar spine. Chest X-Ray 11/21/16 07:00 IMPRESSION: Unchanged chest radiograph. 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
--- NOTE | 2016-11-21 09:11 | EKG REPORT ---
SEVERITY:- ABNORMAL ECG - WANDERING PACEMAKER PROBABLE LEFT ATRIAL ABNORMALITY LEFT BUNDLE BRANCH BLOCK : Confirmed by: Paula Gaxiola MD 21-Nov-2016 09:11:07
[2016-11-21] MEDS ORDERED: MIDAZOLAM 2 MG/2 ML INJ IV PRN (09:16)
[2016-11-21] MEDS: MAGNESIUM OXIDE 400 MG TABLET NG SCH (09:40)
[2016-11-21] MEDS: ASPIRIN 81 MG TABLET, CHEWABLE NG SCH (09:40)
[2016-11-21] MEDS: CLOPIDOGREL BISULFATE 75 MG TABLET NG SCH (09:40)
[2016-11-21] MEDS: ENOXAPARIN SODIUM INJ 40 MG/0.4 ML DISP.SYRIN SUBCUT SCH (09:41)
[2016-11-21] MEDS: INSULIN REG, HUMAN 100 UNIT/ML 3 ML VIAL (PYX) SUBCUT PRN ×3 (09:44→18:32)
[2016-11-21] MEDS: SERTRALINE HCL 50 MG TABLET NG SCH (09:52)
[2016-11-21] MEDS: NITROFURANTOIN MONOHYD/M-CRYST 100 MG CAPSULE NG SCH ×2 (10:00→17:18)
[2016-11-21 12:47] LABS: ARTERIAL BLOOD BASE EXCESS -1.4 mmol/L; ARTERIAL BLOOD O2 SATURATION 96.6 % (94-98)
[2016-11-21] MEDS: INSULIN DETEMIR 100 UNIT/ML 3 ML PEN SUBCUT SCH ×2 (13:31→22:51)
[2016-11-21] MEDS ORDERED: ACETAMINOPHEN 325 MG TABLET ONE (14:23)
[2016-11-21] MEDS ORDERED: ACETAMINOPHEN 325 MG TABLET NG PRN (14:24)
[2016-11-21] MEDS ORDERED: METOPROLOL TARTRATE PF/INJ 5 MG/5 ML SDV IV PRN (14:25)
[2016-11-21] MEDS: MIDAZOLAM 2 MG/2 ML INJ IV PRN (14:32)
[2016-11-21] MEDS: TRAMADOL HCL 50 MG TABLET NG PRN (15:01)
[2016-11-21 15:36] LABS: CREATINE KINASE MB 2.1 ng/mL (<4.55)
[2016-11-21 15:50] LABS: TROPONIN I 0.047 ng/mL
[2016-11-21] MEDS: IPRATROPIUM/ALBUTEROL 0.5-2.5 MG/3 ML AMPUL NEB PRN (20:05)
[2016-11-21] MEDS: ATORVASTATIN CALCIUM 40 MG TABLET NG SCH (22:41)
--- NOTE | 2016-11-21 22:47 | PDOC PROGRESS REPORT ---
Subjective Progress Note for:: 11/21/16 Subjective:: Patient is intubated on mechanical ventilation Physical Exam Vital Signs: Temp Pulse Resp BP Pulse Ox 98.6 F 96 24 H 117/50 L 95 11/21/16 20:00 11/21/16 20:07 11/21/16 20:07 11/21/16 20:00 11/21/16 20:07 Intake & Output 11/20/16 11/21/16 11/22/16 06:59 06:59 06:59 Intake Total 2371 2858 1506 Output Total 800 1400 778 Balance 1571 1458 728 Weight 121.3 kg 121.5 kg General appearance: PRESENT: other - sedated on mechanical ventilation Respiratory exam: PRESENT: wheezes Cardiovascular exam: PRESENT: +S1, +S2 GI/Abdominal exam: PRESENT: soft Results Laboratory Results: 11/21/16 05:20 11/21/16 05:20 11/21/16 11/21/16 11/21/16 05:17 05:20 05:20 WBC 11.3 H RBC 3.19 L Hgb 9.8 L Hct 29.3 L MCV 92 MCH 30.8 MCHC 33.5 RDW 14.5 H Plt Count 274 Seg Neutrophils % Not Reportable Lymphocytes % Not Reportable Monocytes % Not Reportable Eosinophils % Not Reportable Basophils % Not Reportable Absolute Neutrophils Not Reportable Absolute Lymphocytes Not Reportable Absolute Monocytes Not Reportable Absolute Eosinophils Not Reportable Absolute Basophils Not Reportable Carbonic Acid 1.50 H HCO3/H2CO3 Ratio 15:1 ABG pH 7.29 L ABG pCO2 49.9 H ABG pO2 76.0 L ABG HCO3 23.3 ABG O2 Saturation 93.6 L ABG Base Excess -3.6 FiO2 35% Sodium 132.2 L Potassium 4.3 D Chloride 98 Carbon Dioxide 18 L D Anion Gap 16 BUN 21 H Creatinine 0.70 Est GFR ( Amer) > 60 Est GFR (Non-Af Amer) > 60 Glucose 327 H Calcium 8.2 L Phosphorus 3.7 Magnesium 1.8 Total Bilirubin < 0.1 L AST 11 L ALT 22 Alkaline Phosphatase 80 Total Protein 5.2 L Albumin 3.2 L 11/21/16 12:35 WBC RBC Hgb Hct MCV MCH MCHC RDW Plt Count Seg Neutrophils % Lymphocytes % Monocytes % Eosinophils % Basophils % Absolute Neutrophils Absolute Lymphocytes Absolute Monocytes Absolute Eosinophils Absolute Basophils Carbonic Acid 1.26 HCO3/H2CO3 Ratio 18:1 ABG pH 7.37 ABG pCO2 41.7 ABG pO2 89.5 ABG HCO3 23.8 ABG O2 Saturation 96.6 ABG Base Excess -1.4 FiO2 35% Sodium Potassium Chloride Carbon Dioxide Anion Gap BUN Creatinine Est GFR ( Amer) Est GFR (Non-Af Amer) Glucose Calcium Phosphorus Magnesium Total Bilirubin AST ALT Alkaline Phosphatase Total Protein Albumin 11/07/16 11/07/16 11/07/16 18:12 18:12 18:12 Creatine Kinase 33 CK-MB (CK-2) 1.10 Troponin I 0.018 NT-Pro-B Natriuret Pep 2110 H 11/08/16 11/08/16 11/08/16 00:35 00:35 05:54 Creatine Kinase 40 CK-MB (CK-2) 1.24 1.48 Troponin I 0.014 0.016 NT-Pro-B Natriuret Pep 11/08/16 11/20/16 11/20/16 05:54 16:50 16:50 Creatine Kinase 30 51 CK-MB (CK-2) 2.04 Troponin I < 0.012 NT-Pro-B Natriuret Pep 11/21/16 11/21/16 14:30 14:30 Creatine Kinase 30 CK-MB (CK-2) 2.10 Troponin I 0.047 NT-Pro-B Natriuret Pep Impressions: Guidance Fluoroscopy 11/08/16 00:00 IMPRESSION: SUCCESSFUL PLACEMENT OF A 5 FR DUAL LUMEN 44 CM PICC IN THE LEFT BASILIC VEIN. Interventional Vascular Procedure 11/08/16 00:00 IMPRESSION: SUCCESSFUL PLACEMENT OF A 5 FR DUAL LUMEN 44 CM PICC IN THE LEFT BASILIC VEIN. PICC Line Insertion 11/08/16 00:00 IMPRESSION: SUCCESSFUL PLACEMENT OF A 5 FR DUAL LUMEN 44 CM PICC IN THE LEFT BASILIC VEIN. Knee X-Ray 11/10/16 00:00 IMPRESSION: NEGATIVE STUDY OF THE LEFT KNEE. NO RADIOGRAPHIC EVIDENCE OF ACUTE INJURY. Lumbar Spine X-Ray 11/10/16 00:00 IMPRESSION: Possible new minimal compression fractures of L2 and L5. Generalized osteopenia. Chronic T12 compression fracture. Lumbar Spine MRI 11/13/16 00:00 IMPRESSION: No acute findings in the lumbar spine. Chest X-Ray 11/21/16 07:00 IMPRESSION: Unchanged chest radiograph. 2010 [facility] [employer]- All Rights Reserved Assessment & Plan - Diagnosis (1) Acute hypercapnic respiratory failure Is this a current diagnosis for this admission?: Yes (2) Diabetes mellitus type 2 in obese Is this a current diagnosis for this admission?: Yes (3) Peripheral vascular disease Is this a current diagnosis for this admission?: Yes (4) COPD (chronic obstructive pulmonary disease) Qualifiers: COPD type: COPD with acute exacerbation Qualified Code(s): J44.1 - Chronic obstructive pulmonary disease with (acute) exacerbation Is this a current diagnosis for this admission?: Yes (5) Coronary artery disease Qualifiers: Coronary Disease-Associated Artery/Lesion type: [place] artery [place] vs. transplanted heart: [place] heart Associated angina: angina presence unspecified Qualified Code(s): I25.10 - Atherosclerotic heart disease of [place] coronary artery without angina pectoris Is this a current diagnosis for this admission?: Yes (6) Physical deconditioning Is this a current diagnosis for this admission?: Yes (7) Urinary tract infection Qualifiers: Urinary tract infection type: site unspecified Hematuria presence: without hematuria Qualified Code(s): N39.0 - Urinary tract infection, site not specified Is this a current diagnosis for this admission?: Yes (8) Enterococcus UTI Is this a current diagnosis for this admission?: Yes - Plan Summary Plan Summary: She is on mechanical ventilation, she has acute hypercapnic failure she is on mechanical ventilation, Solu-Medrol 40 COPD ampicillin for the E faecalis UTI
[2016-11-21 23:24] LABS: CREATINE KINASE MB 8.19 ng/mL (<4.55)
[2016-11-21 23:36] LABS: TROPONIN I 1.06 ng/mL
[2016-11-22] MEDS: GABAPENTIN 300 MG CAPSULE NG SCH ×4 (00:27→18:04)
[2016-11-22] MEDS: PROPOFOL 100 ML IV PRN ×9 (01:11→23:08)
[2016-11-22] MEDS: INSULIN REG, HUMAN 100 UNIT/ML 3 ML VIAL (PYX) SUBCUT PRN ×3 (01:14→18:45)
[2016-11-22] MEDS: IPRATROPIUM/ALBUTEROL 0.5-2.5 MG/3 ML AMPUL NEB SCH ×4 (02:01→20:02)
[2016-11-22] MEDS: AMPICILLIN SODIUM/SULBACTAM NA 3 GM in NORMAL SALINE 100 ML IV SCH (02:52)
[2016-11-22] MEDS: METHYLPREDNISOLONE INJ 125 MG/2 ML SDV IV SCH ×3 (02:53→18:05)
[2016-11-22] MEDS: MIDAZOLAM 2 MG/2 ML INJ IV PRN ×2 (03:54→10:02)
[2016-11-22] MEDS: FAMOTIDINE INJ/PF 20 MG/2 ML SDV IV SCH ×2 (05:32→18:05)
[2016-11-22 06:06] LABS: ARTERIAL BLOOD BASE EXCESS 3.5 mmol/L; ARTERIAL BLOOD O2 SATURATION 96.7 % (94-98)
[2016-11-22 06:44] LABS: HEMATOCRIT 27.4 % (36.0-47.0); HGB HCT DIFFERENCE 2.6; MEAN CORPUSCULAR HEMOGLOBIN 32.7 pg (27.0-33.4); MEAN CORPUSCULAR HGB CONC 36.4 g/dL (32.0-36.0); MEAN CORPUSCULAR VOLUME 90 fl (80-97); RED BLOOD COUNT 3.05 10^6/uL (3.72-5.28); RED CELL DISTRIBUTION WIDTH 14.5 % (11.5-14.0); WHITE BLOOD COUNT 15.7 10^3/uL (4.0-10.5)
[2016-11-22 06:57] LABS: ALANINE AMINOTRANSFERASE 25 U/L (9-52); ALBUMIN 3.1 g/dL (3.5-5.0); ALKALINE PHOSPHATASE 69 U/L (38-126); ANION GAP 10 (5-19); ASPARTATE AMINO TRANSFERASE 22 U/L (14-36); BLOOD UREA NITROGEN 27 mg/dL (7-20); CALCIUM 7.9 mg/dL (8.4-10.2); CARBON DIOXIDE 23 mmol/L (22-30); CHLORIDE 96 mmol/L (98-107); CREATININE RESULT 0.73 mg/dL (0.52-1.25); GLUCOSE 290 mg/dL (75-110); MAGNESIUM 2.3 mg/dL (1.6-2.3); POTASSIUM 4.2 mmol/L (3.6-5.0); SODIUM 128.8 mmol/L (137-145); TOTAL PROTEIN 5.4 g/dL (6.3-8.2)
[2016-11-22 07:06] LABS: BILIRUBIN,TOTAL < 0.1 mg/dL (0.2-1.3)
[2016-11-22 07:08] LABS: BAND NEUTROPHILS % (MANUAL) 1 % (3-5); BASOPHILS % (MANUAL) 0 % (0-2); CREATINE KINASE MB 7.63 ng/mL (<4.55); EOSINOPHILS % (MANUAL) 0 % (0-6); LYMPHOCYTES % (MANUAL) 2 % (13-45); TOTAL CELLS COUNTED 100; TROPONIN I 1.65 ng/mL
[2016-11-22 07:10] LABS: ANISOCYTOSIS SLIGHT; TOXIC VACUOLATION PRESENT
--- NOTE | 2016-11-22 09:15 | RADIOLOGY REPORT (SQ) ---
EXAM DESCRIPTION: CHEST SINGLE VIEW COMPLETED DATE/TIME: 11/22/2016 6:23 am REASON FOR STUDY: hypercapnic respiratory failure COMPARISON: CT angio chest 09/04/2016 AP chest 11/07/2016, 11/21/2016 EXAM PARAMETERS: NUMBER OF VIEWS: One view. TECHNIQUE: Single frontal radiographic view of the chest acquired. RADIATION DOSE: NA LIMITATIONS: None. FINDINGS: LUNGS AND PLEURA: Minimal blunting of the left lateral costophrenic sulcus, lateral basila r airspace disease versus trace left pleural fluid. Right lung well inflated and clear. No right pleural effusion or focal infiltrate. No right or left pneumothorax MEDIASTINUM AND HILAR STRUCTURES: No masses. Contour normal. HEART AND VASCULAR STRUCTURES: Stable cardiomegaly. BONES: No acute findings. HARDWARE: Endotracheal tube tip 6 cm above the jessica. Nasogastric tube tip and side port in the sto mach. Left-sided PICC line tip superior vena cava. OTHER: No other significant finding. IMPRESSION: Blunting left lateral costophrenic sulcus from airspace disease or pleural fluid. This similar compared to 11/21/2016. Tubes and lines in good positioning. TECHNICAL DOCUMENTATION: JOB ID: [id number]
[2016-11-22] MEDS: ENOXAPARIN SODIUM INJ 40 MG/0.4 ML DISP.SYRIN SUBCUT SCH (09:52)
[2016-11-22] MEDS: SERTRALINE HCL 50 MG TABLET NG SCH (09:54)
[2016-11-22] MEDS: ASPIRIN 81 MG TABLET, CHEWABLE NG SCH (09:55)
[2016-11-22] MEDS: FUROSEMIDE INJ/PF 20 MG/2 ML SDV IV SCH ×2 (09:55→23:18)
[2016-11-22] MEDS: CLOPIDOGREL BISULFATE 75 MG TABLET NG SCH (09:55)
[2016-11-22] MEDS: INSULIN DETEMIR 100 UNIT/ML 3 ML PEN SUBCUT SCH ×2 (09:57→23:19)
[2016-11-22] MEDS: SULFAMETHOXAZOLE/TRIMETHOPRIM 800-160 MG/20 ML UDCUP PO SCH ×2 (09:58→23:19)
[2016-11-22] MEDS ORDERED: CEFTAZIDIME PENTAHYDRATE 1 GM in DEXTROSE 5%-WATER 50 ML IV ONE (11:00)
--- NOTE | 2016-11-22 11:14 | EKG REPORT ---
SEVERITY:- ABNORMAL ECG - SINUS TACHYCARDIA PROBABLE LEFT ATRIAL ABNORMALITY LEFT BUNDLE BRANCH BLOCK : Confirmed by: Paula Gaxiola MD 22-Nov-2016 11:13:50
--- NOTE | 2016-11-22 11:14 | EKG REPORT ---
SEVERITY:- ABNORMAL ECG - SINUS TACHYCARDIA LEFT BUNDLE BRANCH BLOCK : Confirmed by: Paula Gaxiola MD 22-Nov-2016 11:13:56
--- NOTE | 2016-11-22 11:15 | PDOC CONSULTATION ---
Consultation Consult Date: 11/22/16 Attending physician:: TANISHA POLLARD Consult reason:: Positive troponin I History of Present Illness Admission Date/PCP: 11/07/16 17:36 TANISHA POLLARD MD Patient complains of: Intubated and sedated patient cannot respond History of Present Illness: TORREY MARKS is a 65 year old femaleShe has a history of chronic respiratory failure on home oxygen, she was brought to the emergency room for evaluation of respiratory distress, in the emergency room if venous blood gas was done, pH 7.29, PCO2 74.3, the respiratory was supported with a noninvasive positive pressure ventilation, BiPAP machine. She has multiple comorbid conditions including coronary artery disease, peripheral vascular disease very severe COPD , type 2 diabetes mellitus long history of tobacco abuse. She was recently transferred to [facility] for cardiac catheterization when she had non-ST segment elevated myocardial infarction. She has a history of multiple hospitalizations usually for respiratory related conditions. Patient was recuperating on the floor but was noted to be unresponsive and in respiratory failure. Patient therefore was intubated and placed in the unit. Subsequently blood work showed positive troponin. I was therefore asked to evaluate this patient. Patient has a complicated and extensive past medical history. Past Medical History Cardiac Medical History: Reports: Congestive Heart Failure, Coronary Artery Disease, Hyperlipidema, Hypertension, Peripheral Vascular Disease Denies: Heart Murmur Pulmonary Medical History: Reports: Asthma, Bronchitis, Chronic Obstructive Pulmonary Disease (COPD), Respiratory Failure, Sleep Apnea Denies: Tuberculosis Neurological Medical History: Reports: Migraine Denies: Seizures Endocrine Medical History: Reports: Diabetes Mellitus Type 1, Diabetes Mellitus Type 2 Renal/ Medical History: Malignancy Medical History: GI Medical History: Musculoskeltal Medical History: Reports: Arthritis, Fibromyalgia Psychiatric Medical History: Reports: Depression Denies: Attention Deficit Hyperactivity Disorder Infectious Medical History: Reports: Clostridium Difficile, Methicillin- Resistant Staph Aureus Past Surgical History Past Surgical History: Reports: Amputation, Appendectomy, Cardiac Catheterization, Cholecystectomy, Coronary Stent, Hysterectomy, Orthopedic Surgery - right shoulder, Tubal Ligation, Vascular Surgery Social History Information Source: [facility] Records Smoking Status: Current Every Day Smoker Frequency of Alcohol Use: None Hx Recreational Drug Use: No Drugs: None Hx Prescription Drug Abuse: No - Advance Directive Resuscitation Status: Full Code Surrogate healthcare decision maker:: Currently full code. Family History Family History: Reviewed & Not Pertinent, Hypertension, Other - Alzheimer's, renal failure Parental Family History Reviewed: Yes Children Family History Reviewed: Yes Sibling(s) Family History Reviewed.: Yes Medication/Allergy Home Medications: Albuterol Sulfate [Proair HFA] 2 puff IH Q4HP PRN 11/07/16 Aspirin [Aspirin 81 mg Chewable Tablet] 81 mg PO DAILY 11/07/16 Atorvastatin Calcium [Lipitor 40 mg Tablet] 40 mg PO QHS 11/07/16 Clopidogrel Bisulfate [Plavix 75 mg Tablet] 75 mg PO DAILY 11/07/16 Duloxetine HCl [Cymbalta] 60 mg PO DAILY 11/07/16 Fluticasone/Salmeterol [Advair 250-50 Diskus 14 Dose/Diskus] 1 inh IH Q12 Gabapentin [Neurontin 300 mg Capsule] 300 mg PO Q8 11/07/16 Insulin Aspart [Novolog Flexpen] 8 unit SQ TID 11/07/16 Insulin Detemir [Levemir Flextouch] 50 unit SQ BID 11/07/16 Lisinopril [Prinivil 2.5 mg Tablet] 2.5 mg PO DAILY 11/07/16 Magnesium Oxide [Magnesium] 400 mg PO DAILY 11/07/16 Melatonin [Melatin] 6 mg PO QHS 11/07/16 Metformin HCl [Metformin HCl ER] 500 mg PO QPM 11/07/16 Metoprolol Succinate [Toprol Xl 50 mg Tab.sr] 50 mg PO DAILY 11/07/16 Pioglitazone HCl [Actos] 45 mg PO DAILY 11/07/16 Simethicone [Gas Relief 80] 80 mg PO QIDP PRN 11/07/16 Spironolactone [Aldactone 25 mg Tablet] 25 mg PO DAILY 11/07/16 Tiotropium [place] [Spiriva Handihaler 18 mcg/dose (30 Dose)] 1 cap IH DAILY Tramadol HCl/Acetaminophen [Ultracet 37.5 mg/325 mg Tablet] 1 each PO Q6 Nitrofurantoin Monohyd/M-Cryst [Macrobid 100 mg Capsule] 100 mg PO BID #20 capsule 11/14/16 Allergies/Adverse Reactions: codeine [Codeine] Adverse Reaction (Unknown, Verified 08/23/16 08:03) Review of Systems ROS unobtainable: Due to endotracheal tube Physical Exam Vital Signs: Temp Pulse Resp BP Pulse Ox 97.0 F 106 H 27 H 145/74 H 95 11/22/16 06:00 11/22/16 08:46 11/22/16 10:00 11/22/16 09:52 11/22/16 10:00 Intake & Output 11/21/16 11/22/16 11/23/16 06:59 06:59 06:59 Intake Total 2858 2988 Output Total 1400 1378 125 Balance 1458 1610 -125 Weight 121.5 kg 122.6 kg Exam: GENERAL: well-nourished and in no acute distress. Patient is intubated and sedated. Orientation cannot be checked HEAD: Atraumatic, normocephalic. Patient has NG tube feeding going. EYES: Pupils equal round and reactive to light, extraocular movements could not be checked, sclera anicteric, conjunctiva are normal. ENT: TMs normal, nares patent, oropharynx clear without exudates. Moist mucous membranes. No oral ulcerations or bleeding gums noted NECK: supple without lymphadenopathy or JVD. Trachea is central. No cervical or axillary lymphadenopathy noted. Carotids are 2+ LUNGS: Breath sounds mostly clear to auscultation patient is noted to have bibasal crackles at the extreme bases. Bilateral mild wheezing noted. CHEST: Palpation of the chest wall shows no significant chest wall tenderness or abnormalities. HEART: [place] [employer], No PSH, 2/6 JOHANNA aortic area, 1/6 mendoza systolic murmur mitral area , no rubs or gallops. ABDOMEN: Soft, no significant tenderness appreciated, normoactive bowel sounds. No guarding, no rebound. No rigidity noted . No masses appreciated. EXTREMITIES: Pedal pulses are 1-2+, no calf tenderness noted, 1+ pedal edema noted. No clubbing or cyanosis. NEUROLOGICAL: The patient cannot participate in the neurological exam but no facial asymmetry noted. Extremities slightly hypotonic PSYCH: This cannot be evaluated. Patient cannot participate. SKIN: No significant ecchymosis, rash, or signs of pruritus noted. MUSCULOSKELETAL EXAM: No significant joint swelling noted. Patient cannot participate in musculoskeletal exam Results Laboratory Results: 11/22/16 06:30 11/22/16 06:30 11/21/16 11/22/16 11/22/16 12:35 05:45 06:30 WBC 15.7 H RBC 3.05 L Hgb 10.0 L Hct 27.4 L MCV 90 MCH 32.7 MCHC 36.4 H RDW 14.5 H Plt Count 262 Seg Neutrophils % Not Reportable Lymphocytes % Not Reportable Monocytes % Not Reportable Eosinophils % Not Reportable Basophils % Not Reportable Absolute Neutrophils Not Reportable Absolute Lymphocytes Not Reportable Absolute Monocytes Not Reportable Absolute Eosinophils Not Reportable Absolute Basophils Not Reportable Carbonic Acid 1.26 1.27 HCO3/H2CO3 Ratio 18:1 22:1 ABG pH 7.37 7.44 ABG pCO2 41.7 42.2 ABG pO2 89.5 84.9 ABG HCO3 23.8 28.0 H ABG O2 Saturation 96.6 96.7 ABG Base Excess -1.4 3.5 FiO2 35% 35% Sodium Potassium Chloride Carbon Dioxide Anion Gap BUN Creatinine Est GFR ( Amer) Est GFR (Non-Af Amer) Glucose Calcium Magnesium Total Bilirubin AST ALT Alkaline Phosphatase Total Protein Albumin 11/22/16 06:30 WBC RBC Hgb Hct MCV MCH MCHC RDW Plt Count Seg Neutrophils % Lymphocytes % Monocytes % Eosinophils % Basophils % Absolute Neutrophils Absolute Lymphocytes Absolute Monocytes Absolute Eosinophils Absolute Basophils Carbonic Acid HCO3/H2CO3 Ratio ABG pH ABG pCO2 ABG pO2 ABG HCO3 ABG O2 Saturation ABG Base Excess FiO2 Sodium 128.8 L Potassium 4.2 Chloride 96 L Carbon Dioxide 23 Anion Gap 10 BUN 27 H Creatinine 0.73 Est GFR ( Amer) > 60 Est GFR (Non-Af Amer) > 60 Glucose 290 H Calcium 7.9 L Magnesium 2.3 Total Bilirubin < 0.1 L AST 22 ALT 25 Alkaline Phosphatase 69 Total Protein 5.4 L Albumin 3.1 L 11/20/16 17:20 Kaur Catheter Urine Culture - Final Escherichia Coli 11/07/16 11/07/16 11/07/16 18:12 18:12 18:12 Creatine Kinase 33 CK-MB (CK-2) 1.10 Troponin I 0.018 NT-Pro-B Natriuret Pep 2110 H 11/08/16 11/08/16 11/08/16 00:35 00:35 05:54 Creatine Kinase 40 CK-MB (CK-2) 1.24 1.48 Troponin I 0.014 0.016 NT-Pro-B Natriuret Pep 11/08/16 11/20/16 11/20/16 05:54 16:50 16:50 Creatine Kinase 30 51 CK-MB (CK-2) 2.04 Troponin I < 0.012 NT-Pro-B Natriuret Pep 11/21/16 11/21/16 11/21/16 14:30 14:30 22:30 Creatine Kinase 30 81 CK-MB (CK-2) 2.10 Troponin I 0.047 NT-Pro-B Natriuret Pep 11/21/16 11/22/16 22:30 06:30 Creatine Kinase CK-MB (CK-2) 8.19 H 7.63 H Troponin I 1.060 1.650 NT-Pro-B Natriuret Pep EKG Comments: Sinus tachycardia, left bundle branch block pattern EKG is unchanged compared to prior EKG from approximately a month ago. Impressions: Guidance Fluoroscopy 11/08/16 00:00 IMPRESSION: SUCCESSFUL PLACEMENT OF A 5 FR DUAL LUMEN 44 CM PICC IN THE LEFT BASILIC VEIN. Interventional Vascular Procedure 11/08/16 00:00 IMPRESSION: SUCCESSFUL PLACEMENT OF A 5 FR DUAL LUMEN 44 CM PICC IN THE LEFT BASILIC VEIN. PICC Line Insertion 11/08/16 00:00 IMPRESSION: SUCCESSFUL PLACEMENT OF A 5 FR DUAL LUMEN 44 CM PICC IN THE LEFT BASILIC VEIN. Knee X-Ray 11/10/16 00:00 IMPRESSION: NEGATIVE STUDY OF THE LEFT KNEE. NO RADIOGRAPHIC EVIDENCE OF ACUTE INJURY. Lumbar Spine X-Ray 11/10/16 00:00 IMPRESSION: Possible new minimal compression fractures of L2 and L5. Generalized osteopenia. Chronic T12 compression fracture. Lumbar Spine MRI 11/13/16 00:00 IMPRESSION: No acute findings in the lumbar spine. Chest X-Ray 11/22/16 07:00 IMPRESSION: Blunting left lateral costophrenic sulcus from airspace disease or pleural fluid. This similar compared to 11/21/2016. Tubes and lines in good positioning. Assessment & Plan - Diagnosis (1) Acute chronic obstructive pulmonary disease with respiratory distress Is this a current diagnosis for this admission?: Yes (2) Acute hypercapnic respiratory failure Is this a current diagnosis for this admission?: Yes (3) Elevated troponin Is this a current diagnosis for this admission?: Yes (4) Non-ST elevated myocardial infarction Is this a current diagnosis for this admission?: Yes (5) Coronary artery disease Qualifiers: Coronary Disease-Associated Artery/Lesion type: [place] artery [place] vs. transplanted heart: [place] heart Associated angina: without angina Qualified Code(s): I25.10 - Atherosclerotic heart disease of [place] coronary artery without angina pectoris Is this a current diagnosis for this admission?: Yes - Notes Notes: Acute on chronic respiratory failure. 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 Currently on ventilator along with oxygen supplementation. Most likely related to severe CHF COPD and respiratory depression. Elevated troponin I: No significant EKG changes noted but patient does have baseline left bundle. At this point will obtain a 2D echo. Will maximize management of underlying CAD. Non-STEMI: Troponin I elevation in the non-STEMI range. Will optimize medical management. Continue dual antiplatelet therapy, DVT prophylaxis Lovenox, consider beta-allan, KEMAR inhibitor etc. We will add Ranexa and statins. Coronary artery disease: Referred to above plans and elevated troponin IN non- STEMI. - Time Time Spent: 50 to 70 Minutes - CODE STATUS was discussed, patient remains full code. Surrogate decision-maker not identified. Multiple medical problems were addressed. More than 50% of the time spent coordinating care, discussing management plans with involved caregivers. Management plans discussed with involved personnels. Medical decision making was of moderate to high complexity , patient's has multiple comorbidities. Medications reviewed and adjusted accordingly: Yes
[2016-11-22] MEDS: MAGNESIUM OXIDE 400 MG TABLET NG SCH (11:48)
[2016-11-22] MEDS ORDERED: RANOLAZINE 500 MG TAB.SR.12H PO ONE (12:00)
--- NOTE | 2016-11-22 12:26 | PDOC PROGRESS REPORT ---
Subjective Progress Note for:: 11/22/16 Subjective:: intubated sedated Physical Exam Vital Signs: Temp Pulse Resp BP Pulse Ox 97.0 F 86 24 H 114/57 L 95 11/22/16 06:00 11/22/16 06:00 11/22/16 06:22 11/22/16 06:22 11/22/16 06:22 Intake & Output 11/21/16 11/22/16 11/23/16 06:59 06:59 06:59 Intake Total 2858 2988 Output Total 1400 1378 125 Balance 1458 1610 -125 Weight 121.5 kg 122.6 kg General appearance: PRESENT: no acute distress, disheveled, obese, well- developed Head exam: PRESENT: atraumatic, normocephalic Eye exam: PRESENT: conjunctiva pale Mouth exam: PRESENT: dry mucosa, neck supple, tongue midline, other - ET tube Neck exam: ABSENT: carotid bruit, JVD, lymphadenopathy, thyromegaly Respiratory exam: PRESENT: decreased breath sounds, prolonged expiratory phas, rales, rhonchi, symmetrical, unlabored. ABSENT: crackles, retraction, stridor, tachypnea, wheezes Cardiovascular exam: PRESENT: RRR, +S1, +S2 Pulses: PRESENT: normal radial pulses GI/Abdominal exam: PRESENT: normal bowel sounds, soft. ABSENT: distended, guarding, mass, organolmegaly, rebound, tenderness Rectal exam: PRESENT: deferred Gentrourinary exam: PRESENT: indwelling catheter Extremities exam: PRESENT: +2 edema Neurological exam: ABSENT: alert, awake Psychiatric exam: ABSENT: normal mood Skin exam: PRESENT: dry, warm Results Laboratory Results: 11/22/16 06:30 11/22/16 06:30 11/21/16 11/22/16 11/22/16 12:35 05:45 06:30 WBC 15.7 H RBC 3.05 L Hgb 10.0 L Hct 27.4 L MCV 90 MCH 32.7 MCHC 36.4 H RDW 14.5 H Plt Count 262 Seg Neutrophils % Not Reportable Lymphocytes % Not Reportable Monocytes % Not Reportable Eosinophils % Not Reportable Basophils % Not Reportable Absolute Neutrophils Not Reportable Absolute Lymphocytes Not Reportable Absolute Monocytes Not Reportable Absolute Eosinophils Not Reportable Absolute Basophils Not Reportable Carbonic Acid 1.26 1.27 HCO3/H2CO3 Ratio 18:1 22:1 ABG pH 7.37 7.44 ABG pCO2 41.7 42.2 ABG pO2 89.5 84.9 ABG HCO3 23.8 28.0 H ABG O2 Saturation 96.6 96.7 ABG Base Excess -1.4 3.5 FiO2 35% 35% Sodium Potassium Chloride Carbon Dioxide Anion Gap BUN Creatinine Est GFR ( Amer) Est GFR (Non-Af Amer) Glucose Calcium Magnesium Total Bilirubin AST ALT Alkaline Phosphatase Total Protein Albumin 11/22/16 06:30 WBC RBC Hgb Hct MCV MCH MCHC RDW Plt Count Seg Neutrophils % Lymphocytes % Monocytes % Eosinophils % Basophils % Absolute Neutrophils Absolute Lymphocytes Absolute Monocytes Absolute Eosinophils Absolute Basophils Carbonic Acid HCO3/H2CO3 Ratio ABG pH ABG pCO2 ABG pO2 ABG HCO3 ABG O2 Saturation ABG Base Excess FiO2 Sodium 128.8 L Potassium 4.2 Chloride 96 L Carbon Dioxide 23 Anion Gap 10 BUN 27 H Creatinine 0.73 Est GFR ( Amer) > 60 Est GFR (Non-Af Amer) > 60 Glucose 290 H Calcium 7.9 L Magnesium 2.3 Total Bilirubin < 0.1 L AST 22 ALT 25 Alkaline Phosphatase 69 Total Protein 5.4 L Albumin 3.1 L 11/07/16 11/07/16 11/07/16 18:12 18:12 18:12 Creatine Kinase 33 CK-MB (CK-2) 1.10 Troponin I 0.018 NT-Pro-B Natriuret Pep 2110 H 11/08/16 11/08/16 11/08/16 00:35 00:35 05:54 Creatine Kinase 40 CK-MB (CK-2) 1.24 1.48 Troponin I 0.014 0.016 NT-Pro-B Natriuret Pep 11/08/16 11/20/16 11/20/16 05:54 16:50 16:50 Creatine Kinase 30 51 CK-MB (CK-2) 2.04 Troponin I < 0.012 NT-Pro-B Natriuret Pep 11/21/16 11/21/16 11/21/16 14:30 14:30 22:30 Creatine Kinase 30 81 CK-MB (CK-2) 2.10 Troponin I 0.047 NT-Pro-B Natriuret Pep 11/21/16 11/22/16 22:30 06:30 Creatine Kinase CK-MB (CK-2) 8.19 H 7.63 H Troponin I 1.060 1.650 NT-Pro-B Natriuret Pep Impressions: Guidance Fluoroscopy 11/08/16 00:00 IMPRESSION: SUCCESSFUL PLACEMENT OF A 5 FR DUAL LUMEN 44 CM PICC IN THE LEFT BASILIC VEIN. Interventional Vascular Procedure 11/08/16 00:00 IMPRESSION: SUCCESSFUL PLACEMENT OF A 5 FR DUAL LUMEN 44 CM PICC IN THE LEFT BASILIC VEIN. PICC Line Insertion 11/08/16 00:00 IMPRESSION: SUCCESSFUL PLACEMENT OF A 5 FR DUAL LUMEN 44 CM PICC IN THE LEFT BASILIC VEIN. Knee X-Ray 11/10/16 00:00 IMPRESSION: NEGATIVE STUDY OF THE LEFT KNEE. NO RADIOGRAPHIC EVIDENCE OF ACUTE INJURY. Lumbar Spine X-Ray 11/10/16 00:00 IMPRESSION: Possible new minimal compression fractures of L2 and L5. Generalized osteopenia. Chronic T12 compression fracture. Lumbar Spine MRI 11/13/16 00:00 IMPRESSION: No acute findings in the lumbar spine. Assessment & Plan - Diagnosis (1) Acute chronic obstructive pulmonary disease with respiratory distress Is this a current diagnosis for this admission?: Yes Plan: improved but continue met+resp acidosis (2) Acute exacerbation of chronic obstructive pulmonary disease (COPD) Is this a current diagnosis for this admission?: Yes (3) Diabetes mellitus Qualifiers: Diabetes mellitus type: type 2 Diabetes mellitus complication status: with neurologic complications Diabetes mellitus complication detail: with polyneuropathy Diabetes mellitus shelter insulin use: with shelter use Qualified Code(s): E11.42 - Type 2 diabetes mellitus with diabetic polyneuropathy Is this a current diagnosis for this admission?: Yes (4) Obesity Is this a current diagnosis for this admission?: Yes - Time Critical Time spent with patient: 35 or more minutes - 40 min
[2016-11-22 13:08] LABS: ARTERIAL BLOOD BASE EXCESS 3.6 mmol/L; ARTERIAL BLOOD O2 SATURATION 95.8 % (94-98)
[2016-11-22] MEDS: CEFTAZIDIME PENTAHYDRATE 1 GM in DEXTROSE 5%-WATER 50 ML IV SCH (18:03)
[2016-11-22] MEDS: ATORVASTATIN CALCIUM 40 MG TABLET NG SCH (23:17)
[2016-11-22] MEDS: RANOLAZINE 500 MG TAB.SR.12H PO SCH (23:19)
--- NOTE | 2016-11-22 23:23 | PDOC PROGRESS REPORT ---
Subjective Progress Note for:: 11/22/16 Subjective:: Patient sedated on mechanical ventilation Physical Exam Vital Signs: Temp Pulse Resp BP Pulse Ox 98.6 F 100 27 H 107/51 L 96 11/22/16 18:00 11/22/16 20:03 11/22/16 20:03 11/22/16 18:00 11/22/16 20:03 Intake & Output 11/21/16 11/22/16 11/23/16 06:59 06:59 06:59 Intake Total 2858 2988 1352 Output Total 1400 1378 1475 Balance 1458 1610 -123 Weight 121.5 kg 122.6 kg General appearance: PRESENT: other - Sedated on mechanical ventilation Respiratory exam: PRESENT: clear to auscultation rolf Cardiovascular exam: PRESENT: +S1, +S2 GI/Abdominal exam: PRESENT: soft Results Laboratory Results: 11/22/16 06:30 11/22/16 06:30 11/22/16 11/22/16 11/22/16 05:45 06:30 06:30 WBC 15.7 H RBC 3.05 L Hgb 10.0 L Hct 27.4 L MCV 90 MCH 32.7 MCHC 36.4 H RDW 14.5 H Plt Count 262 Seg Neutrophils % Not Reportable Lymphocytes % Not Reportable Monocytes % Not Reportable Eosinophils % Not Reportable Basophils % Not Reportable Absolute Neutrophils Not Reportable Absolute Lymphocytes Not Reportable Absolute Monocytes Not Reportable Absolute Eosinophils Not Reportable Absolute Basophils Not Reportable Carbonic Acid 1.27 HCO3/H2CO3 Ratio 22:1 ABG pH 7.44 ABG pCO2 42.2 ABG pO2 84.9 ABG HCO3 28.0 H ABG O2 Saturation 96.7 ABG Base Excess 3.5 FiO2 35% Sodium 128.8 L Potassium 4.2 Chloride 96 L Carbon Dioxide 23 Anion Gap 10 BUN 27 H Creatinine 0.73 Est GFR ( Amer) > 60 Est GFR (Non-Af Amer) > 60 Glucose 290 H Calcium 7.9 L Magnesium 2.3 Total Bilirubin < 0.1 L AST 22 ALT 25 Alkaline Phosphatase 69 Total Protein 5.4 L Albumin 3.1 L 11/22/16 12:55 WBC RBC Hgb Hct MCV MCH MCHC RDW Plt Count Seg Neutrophils % Lymphocytes % Monocytes % Eosinophils % Basophils % Absolute Neutrophils Absolute Lymphocytes Absolute Monocytes Absolute Eosinophils Absolute Basophils Carbonic Acid 1.35 HCO3/H2CO3 Ratio 21:1 ABG pH 7.42 ABG pCO2 45.0 ABG pO2 78.8 L ABG HCO3 28.5 H ABG O2 Saturation 95.8 ABG Base Excess 3.6 FiO2 35% Sodium Potassium Chloride Carbon Dioxide Anion Gap BUN Creatinine Est GFR ( Amer) Est GFR (Non-Af Amer) Glucose Calcium Magnesium Total Bilirubin AST ALT Alkaline Phosphatase Total Protein Albumin 11/20/16 17:20 Kaur Catheter Urine Culture - Final Escherichia Coli 11/07/16 11/07/16 11/07/16 18:12 18:12 18:12 Creatine Kinase 33 CK-MB (CK-2) 1.10 Troponin I 0.018 NT-Pro-B Natriuret Pep 2110 H 11/08/16 11/08/16 11/08/16 00:35 00:35 05:54 Creatine Kinase 40 CK-MB (CK-2) 1.24 1.48 Troponin I 0.014 0.016 NT-Pro-B Natriuret Pep 11/08/16 11/20/16 11/20/16 05:54 16:50 16:50 Creatine Kinase 30 51 CK-MB (CK-2) 2.04 Troponin I < 0.012 NT-Pro-B Natriuret Pep 11/21/16 11/21/16 11/21/16 14:30 14:30 22:30 Creatine Kinase 30 81 CK-MB (CK-2) 2.10 Troponin I 0.047 NT-Pro-B Natriuret Pep 11/21/16 11/22/16 22:30 06:30 Creatine Kinase CK-MB (CK-2) 8.19 H 7.63 H Troponin I 1.060 1.650 NT-Pro-B Natriuret Pep Impressions: Guidance Fluoroscopy 11/08/16 00:00 IMPRESSION: SUCCESSFUL PLACEMENT OF A 5 FR DUAL LUMEN 44 CM PICC IN THE LEFT BASILIC VEIN. Interventional Vascular Procedure 11/08/16 00:00 IMPRESSION: SUCCESSFUL PLACEMENT OF A 5 FR DUAL LUMEN 44 CM PICC IN THE LEFT BASILIC VEIN. PICC Line Insertion 11/08/16 00:00 IMPRESSION: SUCCESSFUL PLACEMENT OF A 5 FR DUAL LUMEN 44 CM PICC IN THE LEFT BASILIC VEIN. Knee X-Ray 11/10/16 00:00 IMPRESSION: NEGATIVE STUDY OF THE LEFT KNEE. NO RADIOGRAPHIC EVIDENCE OF ACUTE INJURY. Lumbar Spine X-Ray 11/10/16 00:00 IMPRESSION: Possible new minimal compression fractures of L2 and L5. Generalized osteopenia. Chronic T12 compression fracture. Lumbar Spine MRI 11/13/16 00:00 IMPRESSION: No acute findings in the lumbar spine. Chest X-Ray 11/22/16 07:00 IMPRESSION: Blunting left lateral costophrenic sulcus from airspace disease or pleural fluid. This similar compared to 11/21/2016. Tubes and lines in good positioning. Assessment & Plan - Diagnosis (1) Acute hypercapnic respiratory failure Is this a current diagnosis for this admission?: Yes (2) Diabetes mellitus type 2 in obese Is this a current diagnosis for this admission?: Yes (3) Peripheral vascular disease Is this a current diagnosis for this admission?: Yes (4) COPD (chronic obstructive pulmonary disease) Qualifiers: COPD type: COPD with acute exacerbation Qualified Code(s): J44.1 - Chronic obstructive pulmonary disease with (acute) exacerbation Is this a current diagnosis for this admission?: Yes (5) Coronary artery disease Qualifiers: Coronary Disease-Associated Artery/Lesion type: [place] artery [place] vs. transplanted heart: [place] heart Associated angina: angina presence unspecified Qualified Code(s): I25.10 - Atherosclerotic heart disease of [place] coronary artery without angina pectoris Is this a current diagnosis for this admission?: Yes (6) Physical deconditioning Is this a current diagnosis for this admission?: Yes (7) Urinary tract infection Qualifiers: Urinary tract infection type: site unspecified Hematuria presence: without hematuria Qualified Code(s): N39.0 - Urinary tract infection, site not specified Is this a current diagnosis for this admission?: Yes (8) Enterococcus UTI Is this a current diagnosis for this admission?: Yes Plan: Continue IV antibiotic (9) Non-ST elevated myocardial infarction Is this a current diagnosis for this admission?: Yes Plan: She was seen by cardiology regarding the non-ST elevated OR (10) Hypotension Qualifiers: Hypotension type: other hypotension type Qualified Code(s): I95.89 - Other hypotension Is this a current diagnosis for this admission?: Yes Plan: She continues to require pressors with norepinephrine (11) Acute chronic obstructive pulmonary disease with respiratory distress Is this a current diagnosis for this admission?: Yes (12) Diabetes mellitus Qualifiers: Diabetes mellitus type: type 2 Diabetes mellitus complication status: with neurologic complications Diabetes mellitus complication detail: with polyneuropathy Diabetes mellitus usp insulin use: with usp use Qualified Code(s): E11.42 - Type 2 diabetes mellitus with diabetic polyneuropathy Is this a current diagnosis for this admission?: Yes
[2016-11-23] MEDS: GABAPENTIN 300 MG CAPSULE NG SCH ×4 (00:40→17:09)
[2016-11-23] MEDS: INSULIN REG, HUMAN 100 UNIT/ML 3 ML VIAL (PYX) SUBCUT PRN ×5 (00:48→21:56)
[2016-11-23] MEDS: PROPOFOL 100 ML IV PRN ×11 (01:09→20:43)
[2016-11-23] MEDS: IPRATROPIUM/ALBUTEROL 0.5-2.5 MG/3 ML AMPUL NEB SCH ×4 (02:22→19:44)
[2016-11-23] MEDS: CEFTAZIDIME PENTAHYDRATE 1 GM in DEXTROSE 5%-WATER 50 ML IV SCH ×3 (02:57→17:08)
[2016-11-23] MEDS: METHYLPREDNISOLONE INJ 125 MG/2 ML SDV IV SCH ×3 (02:58→17:09)
[2016-11-23] MEDS: NORMAL SALINE 1000 ML 1,000 ML IV PRN (03:15)
[2016-11-23] MEDS: FAMOTIDINE INJ/PF 20 MG/2 ML SDV IV SCH ×2 (05:14→17:08)
[2016-11-23 05:47] LABS: HEMATOCRIT 29.1 % (36.0-47.0); HEMOGLOBIN 9.6 g/dL (12.0-15.5); HGB HCT DIFFERENCE -0.3; MEAN CORPUSCULAR HEMOGLOBIN 29.1 pg (27.0-33.4); MEAN CORPUSCULAR VOLUME 88 fl (80-97); RED CELL DISTRIBUTION WIDTH 14.6 % (11.5-14.0); WHITE BLOOD COUNT 13.7 10^3/uL (4.0-10.5)
[2016-11-23 05:48] LABS: ARTERIAL BLOOD BASE EXCESS 1.6 mmol/L; ARTERIAL BLOOD O2 SATURATION 87.8 % (94-98)
[2016-11-23 05:58] LABS: ALANINE AMINOTRANSFERASE 28 U/L (9-52); ALBUMIN 3.4 g/dL (3.5-5.0); ALKALINE PHOSPHATASE 70 U/L (38-126); ANION GAP 9 (5-19); ASPARTATE AMINO TRANSFERASE 15 U/L (14-36); BILIRUBIN,DIRECT 0.3 mg/dL (0.0-0.4); BILIRUBIN,TOTAL 0.3 mg/dL (0.2-1.3); BLOOD UREA NITROGEN 36 mg/dL (7-20); CALCIUM 8.8 mg/dL (8.4-10.2); CARBON DIOXIDE 29 mmol/L (22-30); CHLORIDE 97 mmol/L (98-107); CREATININE RESULT 1.04 mg/dL (0.52-1.25); GLUCOSE 311 mg/dL (75-110); MAGNESIUM 2.4 mg/dL (1.6-2.3); PHOSPHORUS 3.6 mg/dL (2.5-4.5); POTASSIUM 4.5 mmol/L (3.6-5.0); SODIUM 135.2 mmol/L (137-145); TOTAL PROTEIN 5.8 g/dL (6.3-8.2)
[2016-11-23 06:05] LABS: PREALBUMIN 31.2 mg/dL (17.6-36.0)
[2016-11-23 06:16] LABS: ANISOCYTOSIS SLIGHT; BASOPHILS % (MANUAL) 0 % (0-2); EOSINOPHILS % (MANUAL) 0 % (0-6); LYMPHOCYTES % (MANUAL) 2 % (13-45); TOTAL CELLS COUNTED 100
--- NOTE | 2016-11-23 07:31 | RADIOLOGY REPORT (SQ) ---
EXAM DESCRIPTION: CHEST SINGLE VIEW CLINICAL HISTORY: 66 years, Female, hypercapnic respiratory failure COMPARISON: Yesterday's chest radiograph at 0609 hours. NUMBER OF VIEWS: 1 TECHNIQUE: Routine radiographic technique. LIMITATIONS: None. FINDINGS: Endotracheal tube and nasogastric tube remain in appropriate position. Left PICC central line tip remains in superior vena cava. Unchanged bibasilar atelectasis. Mid and upper lung zones remain clear. No pneumothorax. IMPRESSION: Unchanged chest radiograph. No pneumothorax. 2011 [employer]- All Rights Reserved
[2016-11-23] MEDS: SULFAMETHOXAZOLE/TRIMETHOPRIM 800-160 MG/20 ML UDCUP PO SCH ×2 (09:03→21:40)
[2016-11-23] MEDS: RANOLAZINE 500 MG TAB.SR.12H PO SCH ×2 (09:04→21:40)
[2016-11-23] MEDS: ASPIRIN 81 MG TABLET, CHEWABLE NG SCH (09:05)
[2016-11-23] MEDS: SERTRALINE HCL 50 MG TABLET NG SCH (09:05)
[2016-11-23] MEDS: FUROSEMIDE INJ/PF 20 MG/2 ML SDV IV SCH ×2 (09:05→21:40)
[2016-11-23] MEDS: CLOPIDOGREL BISULFATE 75 MG TABLET NG SCH (09:05)
[2016-11-23] MEDS: ENOXAPARIN SODIUM INJ 40 MG/0.4 ML DISP.SYRIN SUBCUT SCH (09:06)
[2016-11-23] MEDS: TRAMADOL HCL 50 MG TABLET NG PRN ×2 (09:06→20:42)
[2016-11-23] MEDS: INSULIN DETEMIR 100 UNIT/ML 3 ML PEN SUBCUT SCH ×2 (09:08→21:41)
[2016-11-23] MEDS: MAGNESIUM OXIDE 400 MG TABLET NG SCH (09:10)
--- NOTE | 2016-11-23 10:22 | XCELERA REPORT ---
[address] [address] Transthoracic Echocardiogram Report Name: TORREY MARKS Age: 66 yrs Gender: Female : 1950 Patient Status: Inpatient Patient Location: ICU^609^A Study Date: 11/22/2016 10:51 AM Height: 68 in Weight: 270 lb BSA: 2.3 m2 Procedure: A complete two-dimensional transthoracic echocardiogram was performed (2D, M-mode, spectral and color flow Doppler). The study was technically difficult with many images being suboptimal in quality. Reason For Study: [place] Ordering Physician: YOKO WELLS Performed By: Natalya Durán Interpretation Summary LV EF is 25% The study was technically difficult with many images being suboptimal in quality. Left ventricular systolic function is severely reduced. The left ventricle is moderately to severly dilated. There is mild concentric left ventricular hypertrophy. There is severe global hypokinesis of the left ventricle. LV diastolic function could not be adequately assessed. The right ventricular systolic function is normal. The left atrium is mildly dilated. The right atrium is borderline dilated. There is a trace amount of mitral regurgitation There is no mitral valve stenosis. There is no aortic valve stenosis No aortic regurgitation is present. There is a trace to mild amount of tricuspid regurgitation Right ventricular systolic pressure is estimated to be elevated at 40- 50mmHg. There is mild to moderate pulmonary hypertension by echo The aortic root is not well visualized but is probably normal size. The inferior vena cava appeared normal and decreased < 50% with respiration (RAP 10-15 mmHg) There is no pericardial effusion. MMode/2D Measurements & Calculations RVDd: 2.1 cm LVIDd: 7.8 cmFS: 15.4 % Ao root diam: 3.3 cm IVSd: 0.98 cm LVIDs: 6.6 cmEDV(Teich): 322.0 ml LVPWd: 1.0 cmESV(Teich): 221.2 ml Ao root area: 8.4 cm2 EF(Teich): 31.3 % LA dimension: 3.7 cm LVOT diam: 2.2 cm LVOT area: 3.9 cm2 Doppler Measurements & Calculations MV E max senthil: MV P1/2t max senthil: Ao V2 max: LV V1 max P.4 cm/sec 196.8 cm/sec 197.8 cm/sec 9.7 mmHg MV P1/2t: 35.2 msec Ao max PG: LV V1 max: MVA(P1/2t): 6.3 cm2 15.7 mmHg 156.1 cm/sec MV dec slope: BEBO(V,D): 3.1 cm2 1639 cm/sec2 PA V2 max: TR max senthil: 72.6 cm/sec 283.2 cm/sec PA max P.1 mmHgTR max P.1 mmHg Left Ventricle The left ventricle is moderately to severly dilated. There is mild concentric left ventricular hypertrophy. Left ventricular systolic function is severely reduced. LV EF is 25%. LV diastolic function could not be adequately assessed. There is severe global hypokinesis of the left ventricle. Right Ventricle The right ventricle is grossly normal size. There is normal right ventricular wall thickness. The right ventricular systolic function is normal. Atria The right atrium is borderline dilated. The left atrium is mildly dilated. Interarterial septum not well visualized and not well dopplered. Cannot comment on ASD/PFO presence. Mitral Valve The mitral valve leaflets are sclerotic, but show no functional abnormalities. There is no mitral valve stenosis. There is a trace amount of mitral regurgitation. Aortic Valve The aortic valve is not well visualized secondary to technical limitations. There is no aortic valve stenosis. No aortic regurgitation is present. Tricuspid Valve The tricuspid valve is not well visualized secondary to technical limitations. There is no tricuspid stenosis. There is a trace to mild amount of tricuspid regurgitation. Right ventricular systolic pressure is estimated to be elevated at 40-50mmHg. There is mild to moderate pulmonary hypertension by echo. Pulmonic Valve The pulmonic valve is not well visualized. Great Vessels The aortic root is not well visualized but is probably normal size. The inferior vena cava appeared normal and decreased < 50% with respiration (RAP 10-15 mmHg). Effusions There is no pericardial effusion. : YOKO WELLS > Yoko Wells
--- NOTE | 2016-11-23 12:19 | PDOC PROGRESS REPORT ---
Subjective Progress Note for:: 11/23/16 Subjective:: Patient about the same and has made very little progress. There is no significant change in general condition. Currently undergoing weaning trial. Patient remains intubated, sedated, patient however looks comfortable and in acute distress. Medications reviewed. Physical Exam Vital Signs: Temp Pulse Resp BP Pulse Ox 98.6 F 95 29 H 143/85 H 96 11/22/16 18:00 11/23/16 08:14 11/23/16 10:00 11/23/16 09:52 11/23/16 11:47 Intake & Output 11/22/16 11/23/16 11/24/16 06:59 06:59 06:59 Intake Total 2988 2606 Output Total 1378 3100 1200 Balance 1610 -494 -1200 Weight 122.6 kg 123.2 kg Exam: GENERAL: well-nourished and in no acute distress. Patient is intubated and sedated. Orientation cannot be checked HEAD: Atraumatic, normocephalic. EYES: Pupils equal round and reactive to light, extraocular movements could not be checked, sclera anicteric, conjunctiva are normal. ENT: TMs normal, nares patent, oropharynx clear without exudates. Moist mucous membranes. No oral ulcerations or bleeding gums noted NECK: supple without lymphadenopathy or JVD. Trachea is central. No cervical or axillary lymphadenopathy noted. Carotids are 2+ LUNGS: Breath sounds mostly clear to auscultation patient is noted to have bibasal crackles at the extreme bases CHEST: Palpation of the chest wall shows no significant chest wall tenderness or abnormalities. 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 ABDOMEN: Soft, no significant tenderness appreciated, normoactive bowel sounds. No guarding, no rebound. No rigidity noted . No masses appreciated. EXTREMITIES: Pedal pulses are 1-2+, no calf tenderness noted, 1+ pedal edema noted. No clubbing or cyanosis. NEUROLOGICAL: The patient cannot participate in the neurological exam but no facial asymmetry noted. Extremities slightly hypotonic PSYCH: This cannot be evaluated. Patient cannot participate. SKIN: No significant ecchymosis, rash, or signs of pruritus noted. MUSCULOSKELETAL EXAM: No significant joint swelling noted. Patient cannot participate in musculoskeletal exam Results Laboratory Results: 11/23/16 05:20 11/23/16 05:20 11/22/16 11/23/16 11/23/16 12:55 05:20 05:20 WBC 13.7 H RBC 3.30 L Hgb 9.6 L Hct 29.1 L MCV 88 MCH 29.1 MCHC 33.0 RDW 14.6 H Plt Count 298 Seg Neutrophils % Not Reportable Lymphocytes % Not Reportable Monocytes % Not Reportable Eosinophils % Not Reportable Basophils % Not Reportable Absolute Neutrophils Not Reportable Absolute Lymphocytes Not Reportable Absolute Monocytes Not Reportable Absolute Eosinophils Not Reportable Absolute Basophils Not Reportable Carbonic Acid 1.35 1.24 HCO3/H2CO3 Ratio 21:1 21:1 ABG pH 7.42 7.42 ABG pCO2 45.0 41.1 ABG pO2 78.8 L 52.4 L ABG HCO3 28.5 H 26.2 H ABG O2 Saturation 95.8 87.8 L ABG Base Excess 3.6 1.6 FiO2 35% 35% Sodium Potassium Chloride Carbon Dioxide Anion Gap BUN Creatinine Est GFR ( Amer) Est GFR (Non-Af Amer) Glucose Calcium Phosphorus Magnesium Total Bilirubin AST ALT Alkaline Phosphatase Total Protein Albumin Prealbumin 11/23/16 05:20 WBC RBC Hgb Hct MCV MCH MCHC RDW Plt Count Seg Neutrophils % Lymphocytes % Monocytes % Eosinophils % Basophils % Absolute Neutrophils Absolute Lymphocytes Absolute Monocytes Absolute Eosinophils Absolute Basophils Carbonic Acid HCO3/H2CO3 Ratio ABG pH ABG pCO2 ABG pO2 ABG HCO3 ABG O2 Saturation ABG Base Excess FiO2 Sodium 135.2 L Potassium 4.5 Chloride 97 L Carbon Dioxide 29 Anion Gap 9 BUN 36 H Creatinine 1.04 Est GFR ( Amer) > 60 Est GFR (Non-Af Amer) 53 L Glucose 311 H Calcium 8.8 Phosphorus 3.6 Magnesium 2.4 H Total Bilirubin 0.3 AST 15 ALT 28 Alkaline Phosphatase 70 Total Protein 5.8 L Albumin 3.4 L Prealbumin 31.2 11/20/16 17:20 Kaur Catheter Urine Culture - Final Escherichia Coli 11/07/16 11/07/16 11/07/16 18:12 18:12 18:12 Creatine Kinase 33 CK-MB (CK-2) 1.10 Troponin I 0.018 NT-Pro-B Natriuret Pep 2110 H 11/08/16 11/08/16 11/08/16 00:35 00:35 05:54 Creatine Kinase 40 CK-MB (CK-2) 1.24 1.48 Troponin I 0.014 0.016 NT-Pro-B Natriuret Pep 11/08/16 11/20/16 11/20/16 05:54 16:50 16:50 Creatine Kinase 30 51 CK-MB (CK-2) 2.04 Troponin I < 0.012 NT-Pro-B Natriuret Pep 11/21/16 11/21/16 11/21/16 14:30 14:30 22:30 Creatine Kinase 30 81 CK-MB (CK-2) 2.10 Troponin I 0.047 NT-Pro-B Natriuret Pep 11/21/16 11/22/16 11/23/16 22:30 06:30 05:20 Creatine Kinase CK-MB (CK-2) 8.19 H 7.63 H Troponin I 1.060 1.650 0.892 NT-Pro-B Natriuret Pep EKG Comments: Shows sinus tachycardia. No other significant arrhythmias noted. Impressions: Guidance Fluoroscopy 11/08/16 00:00 IMPRESSION: SUCCESSFUL PLACEMENT OF A 5 FR DUAL LUMEN 44 CM PICC IN THE LEFT BASILIC VEIN. Interventional Vascular Procedure 11/08/16 00:00 IMPRESSION: SUCCESSFUL PLACEMENT OF A 5 FR DUAL LUMEN 44 CM PICC IN THE LEFT BASILIC VEIN. PICC Line Insertion 11/08/16 00:00 IMPRESSION: SUCCESSFUL PLACEMENT OF A 5 FR DUAL LUMEN 44 CM PICC IN THE LEFT BASILIC VEIN. Knee X-Ray 11/10/16 00:00 IMPRESSION: NEGATIVE STUDY OF THE LEFT KNEE. NO RADIOGRAPHIC EVIDENCE OF ACUTE INJURY. Lumbar Spine X-Ray 11/10/16 00:00 IMPRESSION: Possible new minimal compression fractures of L2 and L5. Generalized osteopenia. Chronic T12 compression fracture. Lumbar Spine MRI 11/13/16 00:00 IMPRESSION: No acute findings in the lumbar spine. Chest X-Ray 11/23/16 07:00 IMPRESSION: Unchanged chest radiograph. No pneumothorax. 2010 [employer]- All Rights Reserved Assessment & Plan - Diagnosis (1) Acute chronic obstructive pulmonary disease with respiratory distress Is this a current diagnosis for this admission?: Yes (2) Acute hypercapnic respiratory failure Is this a current diagnosis for this admission?: Yes (3) Elevated troponin Is this a current diagnosis for this admission?: Yes (4) Non-ST elevated myocardial infarction Is this a current diagnosis for this admission?: Yes (5) Coronary artery disease Qualifiers: Coronary Disease-Associated Artery/Lesion type: [place] artery [place] vs. transplanted heart: [place] heart Associated angina: without angina Qualified Code(s): I25.10 - Atherosclerotic heart disease of [place] coronary artery without angina pectoris Is this a current diagnosis for this admission?: Yes (6) Cardiomyopathy Qualifiers: Cardiomyopathy type: unspecified Qualified Code(s): I42.9 - Cardiomyopathy , unspecified Is this a current diagnosis for this admission?: Yes - Notes Notes: Acute on chronic respiratory failure. Patient being managed by hooker off. Currently on ventilator along with oxygen supplementation. Respiratory failure , most likely related to severe COPD and respiratory depression. Elevated troponin I: No significant EKG changes noted but patient does have baseline left bundle. At this point will obtain a 2D echo. Will maximize management of underlying CAD. Non-STEMI: Troponin I elevation in the non-STEMI range. Will optimize medical management. Continue dual antiplatelet therapy, DVT prophylaxis Lovenox, consider beta-allan, KEMAR inhibitor etc. We will add Ranexa and statins. Coronary artery disease: Referred to above plans and elevated troponin IN non- STEMI. Cardiomyopathy: 2D echo shows severely depressed LVEF at 25%. LV also dilated. No significant valvular abnormalities noted. Patient noted to have diffuse hypokinesia. Study was technically difficult. - Time Time with patient: Greater than 35 minutes - CODE STATUS was discussed, patient remains full code. Surrogate decision-maker unchanged. Multiple medical problems were addressed. CODE STATUS was discussed, patient remains full code. Surrogate decision-maker unchanged. Multiple medical problems were addressed.More than 50% of the time spent coordinating care, discussing management plans with involved caregivers. CODE STATUS was discussed, patient remains full code. Surrogate decision-maker unchanged. Multiple medical problems were addressed.More than 50% of the time spent coordinating care, discussing management plans with involved caregivers. Management plans discussed with involved personnels. Medical decision making was of high complexity, patient's has multiple severe comorbidities. Medications reviewed and adjusted accordingly: Yes
[2016-11-23 12:32] LABS: ARTERIAL BLOOD BASE EXCESS 3.4 mmol/L; ARTERIAL BLOOD O2 SATURATION 97.1 % (94-98)
[2016-11-23] MEDS ORDERED: BISACODYL 10 MG SUPP.RECT PR PRN (13:09)
[2016-11-23 13:16] LABS: CREATINE KINASE MB 1.5 ng/mL (<4.55); TROPONIN I 0.771 ng/mL
--- NOTE | 2016-11-23 13:16 | PDOC PROGRESS REPORT ---
Subjective Progress Note for:: 11/23/16 Subjective:: intubated sedated Physical Exam Vital Signs: Temp Pulse Resp BP Pulse Ox 98.6 F 95 29 H 143/85 H 96 11/22/16 18:00 11/23/16 08:14 11/23/16 10:00 11/23/16 09:52 11/23/16 10:00 Intake & Output 11/22/16 11/23/16 11/24/16 06:59 06:59 06:59 Intake Total 2988 2606 Output Total 1378 3100 1200 Balance 1610 -494 -1200 Weight 122.6 kg 123.2 kg General appearance: PRESENT: no acute distress, disheveled, obese, well- developed Head exam: PRESENT: atraumatic, normocephalic Eye exam: PRESENT: conjunctiva pale Mouth exam: PRESENT: dry mucosa, neck supple, tongue midline, other - ET tube Neck exam: ABSENT: carotid bruit, JVD, lymphadenopathy, thyromegaly Respiratory exam: PRESENT: decreased breath sounds, prolonged expiratory phas, rhonchi, symmetrical, unlabored, wheezes - rare. ABSENT: rales, retraction, stridor, tachypnea Cardiovascular exam: PRESENT: RRR, +S1, +S2 Pulses: PRESENT: normal radial pulses GI/Abdominal exam: PRESENT: normal bowel sounds, soft. ABSENT: distended, guarding, mass, organolmegaly, rebound, tenderness Rectal exam: PRESENT: deferred Gentrourinary exam: PRESENT: indwelling catheter Extremities exam: PRESENT: +1 edema Neurological exam: ABSENT: alert, awake Skin exam: PRESENT: dry, warm Results Laboratory Results: 11/23/16 05:20 11/23/16 05:20 11/22/16 11/23/16 11/23/16 12:55 05:20 05:20 WBC 13.7 H RBC 3.30 L Hgb 9.6 L Hct 29.1 L MCV 88 MCH 29.1 MCHC 33.0 RDW 14.6 H Plt Count 298 Seg Neutrophils % Not Reportable Lymphocytes % Not Reportable Monocytes % Not Reportable Eosinophils % Not Reportable Basophils % Not Reportable Absolute Neutrophils Not Reportable Absolute Lymphocytes Not Reportable Absolute Monocytes Not Reportable Absolute Eosinophils Not Reportable Absolute Basophils Not Reportable Carbonic Acid 1.35 1.24 HCO3/H2CO3 Ratio 21:1 21:1 ABG pH 7.42 7.42 ABG pCO2 45.0 41.1 ABG pO2 78.8 L 52.4 L ABG HCO3 28.5 H 26.2 H ABG O2 Saturation 95.8 87.8 L ABG Base Excess 3.6 1.6 FiO2 35% 35% Sodium Potassium Chloride Carbon Dioxide Anion Gap BUN Creatinine Est GFR ( Amer) Est GFR (Non-Af Amer) Glucose Calcium Phosphorus Magnesium Total Bilirubin AST ALT Alkaline Phosphatase Total Protein Albumin Prealbumin 11/23/16 05:20 WBC RBC Hgb Hct MCV MCH MCHC RDW Plt Count Seg Neutrophils % Lymphocytes % Monocytes % Eosinophils % Basophils % Absolute Neutrophils Absolute Lymphocytes Absolute Monocytes Absolute Eosinophils Absolute Basophils Carbonic Acid HCO3/H2CO3 Ratio ABG pH ABG pCO2 ABG pO2 ABG HCO3 ABG O2 Saturation ABG Base Excess FiO2 Sodium 135.2 L Potassium 4.5 Chloride 97 L Carbon Dioxide 29 Anion Gap 9 BUN 36 H Creatinine 1.04 Est GFR ( Amer) > 60 Est GFR (Non-Af Amer) 53 L Glucose 311 H Calcium 8.8 Phosphorus 3.6 Magnesium 2.4 H Total Bilirubin 0.3 AST 15 ALT 28 Alkaline Phosphatase 70 Total Protein 5.8 L Albumin 3.4 L Prealbumin 31.2 11/20/16 17:20 Kaur Catheter Urine Culture - Final Escherichia Coli 11/07/16 11/07/16 11/07/16 18:12 18:12 18:12 Creatine Kinase 33 CK-MB (CK-2) 1.10 Troponin I 0.018 NT-Pro-B Natriuret Pep 2110 H 11/08/16 11/08/16 11/08/16 00:35 00:35 05:54 Creatine Kinase 40 CK-MB (CK-2) 1.24 1.48 Troponin I 0.014 0.016 NT-Pro-B Natriuret Pep 11/08/16 11/20/16 11/20/16 05:54 16:50 16:50 Creatine Kinase 30 51 CK-MB (CK-2) 2.04 Troponin I < 0.012 NT-Pro-B Natriuret Pep 11/21/16 11/21/16 11/21/16 14:30 14:30 22:30 Creatine Kinase 30 81 CK-MB (CK-2) 2.10 Troponin I 0.047 NT-Pro-B Natriuret Pep 11/21/16 11/22/16 11/23/16 22:30 06:30 05:20 Creatine Kinase CK-MB (CK-2) 8.19 H 7.63 H Troponin I 1.060 1.650 0.892 NT-Pro-B Natriuret Pep Impressions: Guidance Fluoroscopy 11/08/16 00:00 IMPRESSION: SUCCESSFUL PLACEMENT OF A 5 FR DUAL LUMEN 44 CM PICC IN THE LEFT BASILIC VEIN. Interventional Vascular Procedure 11/08/16 00:00 IMPRESSION: SUCCESSFUL PLACEMENT OF A 5 FR DUAL LUMEN 44 CM PICC IN THE LEFT BASILIC VEIN. PICC Line Insertion 11/08/16 00:00 IMPRESSION: SUCCESSFUL PLACEMENT OF A 5 FR DUAL LUMEN 44 CM PICC IN THE LEFT BASILIC VEIN. Knee X-Ray 11/10/16 00:00 IMPRESSION: NEGATIVE STUDY OF THE LEFT KNEE. NO RADIOGRAPHIC EVIDENCE OF ACUTE INJURY. Lumbar Spine X-Ray 11/10/16 00:00 IMPRESSION: Possible new minimal compression fractures of L2 and L5. Generalized osteopenia. Chronic T12 compression fracture. Lumbar Spine MRI 11/13/16 00:00 IMPRESSION: No acute findings in the lumbar spine. Chest X-Ray 11/23/16 07:00 IMPRESSION: Unchanged chest radiograph. No pneumothorax. 2010 [employer]- All Rights Reserved Assessment & Plan - Diagnosis (1) Acute chronic obstructive pulmonary disease with respiratory distress Is this a current diagnosis for this admission?: Yes Plan: improved but continue met+resp acidosis (2) Acute exacerbation of chronic obstructive pulmonary disease (COPD) Is this a current diagnosis for this admission?: Yes (3) Diabetes mellitus Qualifiers: Diabetes mellitus type: type 2 Diabetes mellitus complication status: with neurologic complications Diabetes mellitus complication detail: with polyneuropathy Diabetes mellitus exterminator termite insulin use: with detention use Qualified Code(s): E11.42 - Type 2 diabetes mellitus with diabetic polyneuropathy Is this a current diagnosis for this admission?: Yes (4) Obesity Is this a current diagnosis for this admission?: Yes - Plan Summary Plan Summary: prolonged discussion with family with RN at bedside will honor family wishes make patient DNR;I concur with this plan of action
--- NOTE | 2016-11-23 14:24 | PDOC PROGRESS REPORT ---
Subjective Progress Note for:: 11/23/16 Subjective:: Remain sedated, intubated and vent supported. Respond to painful stimuli. Tolerating enteral tube feeding. Physical Exam Vital Signs: Temp Pulse Resp BP Pulse Ox 98.6 F 95 29 H 143/85 H 96 11/22/16 18:00 11/23/16 08:14 11/23/16 10:00 11/23/16 09:52 11/23/16 11:47 Intake & Output 11/22/16 11/23/16 11/24/16 06:59 06:59 06:59 Intake Total 2988 2606 Output Total 1378 3100 1575 Balance 1610 -494 -1575 Weight 122.6 kg 123.2 kg Physical Exam: ET / OG tubes in situ. Head exam: PRESENT: atraumatic, normocephalic Eye exam: PRESENT: conjunctiva pink, EOMI, PERRLA. ABSENT: scleral icterus Respiratory exam: PRESENT: decreased breath sounds, prolonged expiratory phas, rhonchi, unlabored, wheezes Cardiovascular exam: PRESENT: RRR. ABSENT: diastolic murmur, rubs, systolic murmur GI/Abdominal exam: PRESENT: normal bowel sounds, soft. ABSENT: distended, guarding, mass, organolmegaly, rebound, tenderness Extremities exam: PRESENT: pedal edema - bilateral 1+ pitting pedal edema Psychiatric exam: PRESENT: other - sedated on propofol infusion Skin exam: PRESENT: dry, intact, warm. ABSENT: cyanosis, rash Results Laboratory Results: 11/23/16 05:20 11/23/16 05:20 11/23/16 11/23/16 11/23/16 05:20 05:20 05:20 WBC 13.7 H RBC 3.30 L Hgb 9.6 L Hct 29.1 L MCV 88 MCH 29.1 MCHC 33.0 RDW 14.6 H Plt Count 298 Seg Neutrophils % Not Reportable Lymphocytes % Not Reportable Monocytes % Not Reportable Eosinophils % Not Reportable Basophils % Not Reportable Absolute Neutrophils Not Reportable Absolute Lymphocytes Not Reportable Absolute Monocytes Not Reportable Absolute Eosinophils Not Reportable Absolute Basophils Not Reportable Carbonic Acid 1.24 HCO3/H2CO3 Ratio 21:1 ABG pH 7.42 ABG pCO2 41.1 ABG pO2 52.4 L ABG HCO3 26.2 H ABG O2 Saturation 87.8 L ABG Base Excess 1.6 FiO2 35% Sodium 135.2 L Potassium 4.5 Chloride 97 L Carbon Dioxide 29 Anion Gap 9 BUN 36 H Creatinine 1.04 Est GFR ( Amer) > 60 Est GFR (Non-Af Amer) 53 L Glucose 311 H Calcium 8.8 Phosphorus 3.6 Magnesium 2.4 H Total Bilirubin 0.3 AST 15 ALT 28 Alkaline Phosphatase 70 Total Protein 5.8 L Albumin 3.4 L Prealbumin 31.2 11/23/16 12:07 WBC RBC Hgb Hct MCV MCH MCHC RDW Plt Count Seg Neutrophils % Lymphocytes % Monocytes % Eosinophils % Basophils % Absolute Neutrophils Absolute Lymphocytes Absolute Monocytes Absolute Eosinophils Absolute Basophils Carbonic Acid 1.35 HCO3/H2CO3 Ratio 21:1 ABG pH 7.42 ABG pCO2 45.0 ABG pO2 92.3 ABG HCO3 28.4 H ABG O2 Saturation 97.1 ABG Base Excess 3.4 FiO2 35% Sodium Potassium Chloride Carbon Dioxide Anion Gap BUN Creatinine Est GFR ( Amer) Est GFR (Non-Af Amer) Glucose Calcium Phosphorus Magnesium Total Bilirubin AST ALT Alkaline Phosphatase Total Protein Albumin Prealbumin 11/21/16 08:30 Tracheal Aspirate Gram Stain - Final 11/21/16 08:30 Tracheal Aspirate Sputum Culture - Final NORMAL PO 11/07/16 11/07/16 11/07/16 18:12 18:12 18:12 Creatine Kinase 33 CK-MB (CK-2) 1.10 Troponin I 0.018 NT-Pro-B Natriuret Pep 2110 H 11/08/16 11/08/16 11/08/16 00:35 00:35 05:54 Creatine Kinase 40 CK-MB (CK-2) 1.24 1.48 Troponin I 0.014 0.016 NT-Pro-B Natriuret Pep 11/08/16 11/20/16 11/20/16 05:54 16:50 16:50 Creatine Kinase 30 51 CK-MB (CK-2) 2.04 Troponin I < 0.012 NT-Pro-B Natriuret Pep 11/21/16 11/21/16 11/21/16 14:30 14:30 22:30 Creatine Kinase 30 81 CK-MB (CK-2) 2.10 Troponin I 0.047 NT-Pro-B Natriuret Pep 1011/22/16 11/23/16 22:30 06:30 05:20 Creatine Kinase CK-MB (CK-2) 8.19 H 7.63 H Troponin I 1.060 1.650 0.892 NT-Pro-B Natriuret Pep 11/23/16 11/23/16 12:07 12:07 Creatine Kinase 40 CK-MB (CK-2) 1.50 Troponin I 0.771 NT-Pro-B Natriuret Pep Impressions: Guidance Fluoroscopy 11/08/16 00:00 IMPRESSION: SUCCESSFUL PLACEMENT OF A 5 FR DUAL LUMEN 44 CM PICC IN THE LEFT BASILIC VEIN. Interventional Vascular Procedure 11/08/16 00:00 IMPRESSION: SUCCESSFUL PLACEMENT OF A 5 FR DUAL LUMEN 44 CM PICC IN THE LEFT BASILIC VEIN. PICC Line Insertion 11/08/16 00:00 IMPRESSION: SUCCESSFUL PLACEMENT OF A 5 FR DUAL LUMEN 44 CM PICC IN THE LEFT BASILIC VEIN. Knee X-Ray 11/10/16 00:00 IMPRESSION: NEGATIVE STUDY OF THE LEFT KNEE. NO RADIOGRAPHIC EVIDENCE OF ACUTE INJURY. Lumbar Spine X-Ray 11/10/16 00:00 IMPRESSION: Possible new minimal compression fractures of L2 and L5. Generalized osteopenia. Chronic T12 compression fracture. Lumbar Spine MRI 11/13/16 00:00 IMPRESSION: No acute findings in the lumbar spine. Chest X-Ray 11/23/16 07:00 IMPRESSION: Unchanged chest radiograph. No pneumothorax. 2010 [employer]- All Rights Reserved Assessment & Plan - Diagnosis (1) Acute chronic obstructive pulmonary disease with respiratory distress Is this a current diagnosis for this admission?: Yes Plan: See covering attending physician orders. (2) Non-ST elevated myocardial infarction Is this a current diagnosis for this admission?: Yes Plan: See covering attending physician orders. (3) Coronary artery disease Qualifiers: Coronary Disease-Associated Artery/Lesion type: [place] artery [place] vs. transplanted heart: [place] heart Associated angina: angina presence unspecified Qualified Code(s): I25.10 - Atherosclerotic heart disease of [place] coronary artery without angina pectoris Is this a current diagnosis for this admission?: Yes Plan: See covering attending physician orders. (4) Diabetes mellitus type 2 in obese Is this a current diagnosis for this admission?: Yes Plan: See covering attending physician orders. (5) E. coli UTI Plan: See covering attending physician orders. - Time Time Spent with patient: 25-34 minutes Medications reviewed and adjusted accordingly: Yes Anticipated discharge: SNF Within: Other - Inpatient Certification Based on my medical assessment, after consideration of the patient's comorbidities, presenting symptoms, or acuity I expect that the services needed warrant INPATIENT care.: Yes I certify that my determination is in accordance with my understanding of Medicare's requirements for reasonable and necessary INPATIENT services [42 CFR 412.3e].: Yes Medical Necessity: Need Close Monitoring Due to Risk of Patient Decompensation, Need For IV Fluids, Need For Continuous Telemetry Monitoring, Need for Nebulizer Therapy and Monitoring of Response, Need for IV Antibiotics, Risk of Complication if Not Cared For in Hospital Post Hospital Care: D/C or Transfer Summary - Plan Summary Plan Summary: See covering attending physician orders.
[2016-11-23 20:43] LABS: CREATINE KINASE MB 1.44 ng/mL (<4.55); TROPONIN I 0.702 ng/mL
[2016-11-23] MEDS: ATORVASTATIN CALCIUM 40 MG TABLET NG SCH (21:40)
[2016-11-24] MEDS: GABAPENTIN 300 MG CAPSULE NG SCH ×5 (00:01→23:56)
[2016-11-24] MEDS: PROPOFOL 100 ML IV PRN ×9 (00:20→22:05)
[2016-11-24] MEDS: CEFTAZIDIME PENTAHYDRATE 1 GM in DEXTROSE 5%-WATER 50 ML IV SCH ×3 (01:49→17:55)
[2016-11-24] MEDS: METHYLPREDNISOLONE INJ 125 MG/2 ML SDV IV SCH ×4 (01:52→21:44)
[2016-11-24] MEDS: IPRATROPIUM/ALBUTEROL 0.5-2.5 MG/3 ML AMPUL NEB SCH ×4 (02:39→19:40)
[2016-11-24 04:49] LABS: ARTERIAL BLOOD BASE EXCESS 7.1 mmol/L; ARTERIAL BLOOD O2 SATURATION 93.6 % (94-98)
[2016-11-24 04:55] LABS: HEMOGLOBIN 9.5 g/dL (12.0-15.5); HGB HCT DIFFERENCE -0.5; MEAN CORPUSCULAR HGB CONC 32.7 g/dL (32.0-36.0); MEAN CORPUSCULAR VOLUME 89 fl (80-97); RED BLOOD COUNT 3.26 10^6/uL (3.72-5.28); RED CELL DISTRIBUTION WIDTH 14.7 % (11.5-14.0); WHITE BLOOD COUNT 11.8 10^3/uL (4.0-10.5)
[2016-11-24 05:01] LABS: ALANINE AMINOTRANSFERASE 26 U/L (9-52); ALBUMIN 3.2 g/dL (3.5-5.0); ALKALINE PHOSPHATASE 63 U/L (38-126); ANION GAP 10 (5-19); ASPARTATE AMINO TRANSFERASE 12 U/L (14-36); BILIRUBIN,DIRECT 0.2 mg/dL (0.0-0.4); BILIRUBIN,TOTAL 0.2 mg/dL (0.2-1.3); BLOOD UREA NITROGEN 43 mg/dL (7-20); CARBON DIOXIDE 31 mmol/L (22-30); CHLORIDE 97 mmol/L (98-107); CREATINE KINASE 34 U/L (30-135); CREATININE RESULT 1.07 mg/dL (0.52-1.25); GLUCOSE 326 mg/dL (75-110); MAGNESIUM 2.6 mg/dL (1.6-2.3); POTASSIUM 4.5 mmol/L (3.6-5.0); SODIUM 138.1 mmol/L (137-145); TOTAL PROTEIN 5.5 g/dL (6.3-8.2)
[2016-11-24 05:13] LABS: CREATINE KINASE MB 0.95 ng/mL (<4.55); TROPONIN I 0.713 ng/mL
[2016-11-24 05:14] LABS: BASOPHILS % (MANUAL) 0 % (0-2); EOSINOPHILS % (MANUAL) 0 % (0-6); LYMPHOCYTES % (MANUAL) 2 % (13-45); TOTAL CELLS COUNTED 100
[2016-11-24 05:16] LABS: ANISOCYTOSIS SLIGHT; POIKILOCYTOSIS SLIGHT; TOXIC GRANULATION SLIGHT
[2016-11-24 05:17] LABS: OVALOCYTES SLIGHT; TARGET CELLS SLIGHT; TEAR DROP CELLS SLIGHT
[2016-11-24] MEDS: FAMOTIDINE INJ/PF 20 MG/2 ML SDV IV SCH ×2 (05:30→17:54)
[2016-11-24] MEDS: INSULIN REG, HUMAN 100 UNIT/ML 3 ML VIAL (PYX) SUBCUT PRN ×4 (06:01→23:56)
--- NOTE | 2016-11-24 08:28 | RADIOLOGY REPORT (SQ) ---
EXAM DESCRIPTION: CHEST SINGLE VIEW COMPLETED DATE/TIME: 11/24/2016 6:30 am REASON FOR STUDY: hypercapnic respiratory failure COMPARISON: 11/23/2017 EXAM PARAMETERS: NUMBER OF VIEWS: One view. TECHNIQUE: Single frontal radiographic view of the chest acquired. RADIATION DOSE: NA LIMITATIONS: None. FINDINGS: LUNGS AND PLEURA: Stable retrocardiac airspace disease with pleural effusion. Stable patc hy right lower lobe airspace disease. No new opacities. MEDIASTINUM AND HILAR STRUCTURES: No masses. Contour normal. HEART AND VASCULAR STRUCTURES: Heart stable in size. Normal vasculature. BONES: No acute findings. HARDWARE: Stable position endotracheal tube, nasogastric tube, and left-sided PICC. OTHER: No other significant finding. IMPRESSION: STABLE LINES/ TUBES. STABLE MULTIFOCAL AIRSPACE DISEASE WITH PROBABLE LEFT PLEURAL EFFUSION. TECHNICAL DOCUMENTATION: JOB ID: [id number]
[2016-11-24] MEDS: SULFAMETHOXAZOLE/TRIMETHOPRIM 800-160 MG/20 ML UDCUP PO SCH ×2 (09:24→21:44)
[2016-11-24] MEDS: CLOPIDOGREL BISULFATE 75 MG TABLET NG SCH (09:25)
[2016-11-24] MEDS: MAGNESIUM OXIDE 400 MG TABLET NG SCH (09:25)
[2016-11-24] MEDS: SERTRALINE HCL 50 MG TABLET NG SCH (09:26)
[2016-11-24] MEDS: TRAMADOL HCL 50 MG TABLET NG PRN ×2 (09:26→21:44)
[2016-11-24] MEDS: RANOLAZINE 500 MG TAB.SR.12H PO SCH ×2 (09:26→21:44)
[2016-11-24] MEDS: ASPIRIN 81 MG TABLET, CHEWABLE NG SCH (09:27)
[2016-11-24] MEDS: FUROSEMIDE INJ/PF 20 MG/2 ML SDV IV SCH ×2 (09:27→21:44)
[2016-11-24] MEDS: ENOXAPARIN SODIUM INJ 40 MG/0.4 ML DISP.SYRIN SUBCUT SCH (09:28)
[2016-11-24] MEDS: INSULIN DETEMIR 100 UNIT/ML 3 ML PEN SUBCUT SCH ×2 (09:29→21:43)
--- NOTE | 2016-11-24 11:03 | PDOC PROGRESS REPORT ---
Subjective Progress Note for:: 11/24/16 Subjective:: Remain sedated, intubated and vent supported. Respond to painful stimuli. Remain on enteral tube feeding. No reported fever. Physical Exam Vital Signs: Temp Pulse Resp BP Pulse Ox 98.6 F 78 19 131/73 H 96 11/22/16 18:00 11/24/16 08:11 11/24/16 10:00 11/24/16 09:53 11/24/16 10:00 Intake & Output 11/23/16 11/24/16 11/25/16 06:59 06:59 06:59 Intake Total 2606 2584 Output Total 3100 4210 850 Balance -494 -1626 -850 Weight 123.2 kg 121.6 kg Physical Exam: ET / OG tubes in situ. Head exam: PRESENT: atraumatic, normocephalic Eye exam: PRESENT: conjunctiva pink, EOMI, PERRLA. ABSENT: scleral icterus Respiratory exam: PRESENT: decreased breath sounds, prolonged expiratory phas, rhonchi, unlabored, wheezes Cardiovascular exam: PRESENT: RRR. ABSENT: diastolic murmur, rubs, systolic murmur GI/Abdominal exam: PRESENT: normal bowel sounds, soft. ABSENT: distended, guarding, mass, organomegaly, rebound, tenderness Extremities exam: PRESENT: pedal edema - bilateral 1+ pitting pedal edema Psychiatric exam: PRESENT: other - sedated on propofol infusion Skin exam: PRESENT: dry, intact, warm. ABSENT: cyanosis, rash Results Laboratory Results: 11/24/16 04:35 11/24/16 04:35 11/23/16 11/24/16 11/24/16 12:07 04:35 04:35 WBC 11.8 H RBC 3.26 L Hgb 9.5 L Hct 29.0 L MCV 89 MCH 29.0 MCHC 32.7 RDW 14.7 H Plt Count 301 Seg Neutrophils % Not Reportable Lymphocytes % Not Reportable Monocytes % Not Reportable Eosinophils % Not Reportable Basophils % Not Reportable Absolute Neutrophils Not Reportable Absolute Lymphocytes Not Reportable Absolute Monocytes Not Reportable Absolute Eosinophils Not Reportable Absolute Basophils Not Reportable Carbonic Acid 1.35 HCO3/H2CO3 Ratio 21:1 ABG pH 7.42 ABG pCO2 45.0 ABG pO2 92.3 ABG HCO3 28.4 H ABG O2 Saturation 97.1 ABG Base Excess 3.4 FiO2 35% Sodium 138.1 Potassium 4.5 Chloride 97 L Carbon Dioxide 31 H Anion Gap 10 BUN 43 H Creatinine 1.07 Est GFR ( Amer) > 60 Est GFR (Non-Af Amer) 52 L Glucose 326 H Calcium 8.0 L Magnesium 2.6 H Total Bilirubin 0.2 AST 12 L ALT 26 Alkaline Phosphatase 63 Total Protein 5.5 L Albumin 3.2 L 11/24/16 04:35 WBC RBC Hgb Hct MCV MCH MCHC RDW Plt Count Seg Neutrophils % Lymphocytes % Monocytes % Eosinophils % Basophils % Absolute Neutrophils Absolute Lymphocytes Absolute Monocytes Absolute Eosinophils Absolute Basophils Carbonic Acid 1.47 H HCO3/H2CO3 Ratio 21:1 ABG pH 7.44 ABG pCO2 48.9 H ABG pO2 66.5 L ABG HCO3 32.2 H ABG O2 Saturation 93.6 L ABG Base Excess 7.1 FiO2 35% Sodium Potassium Chloride Carbon Dioxide Anion Gap BUN Creatinine Est GFR ( Amer) Est GFR (Non-Af Amer) Glucose Calcium Magnesium Total Bilirubin AST ALT Alkaline Phosphatase Total Protein Albumin 11/21/16 15:23 Kaur Catheter Urine Culture - Final C.albicans/C.dubliniensis 11/21/16 08:30 Tracheal Aspirate Gram Stain - Final 11/21/16 08:30 Tracheal Aspirate Sputum Culture - Final NORMAL PO 11/07/16 11/07/16 11/07/16 18:12 18:12 18:12 Creatine Kinase 33 CK-MB (CK-2) 1.10 Troponin I 0.018 NT-Pro-B Natriuret Pep 2110 H 11/08/16 11/08/16 11/08/16 00:35 00:35 05:54 Creatine Kinase 40 CK-MB (CK-2) 1.24 1.48 Troponin I 0.014 0.016 NT-Pro-B Natriuret Pep 11/08/16 11/20/16 11/20/16 05:54 16:50 16:50 Creatine Kinase 30 51 CK-MB (CK-2) 2.04 Troponin I < 0.012 NT-Pro-B Natriuret Pep 11/21/16 11/21/16 11/21/16 14:30 14:30 22:30 Creatine Kinase 30 81 CK-MB (CK-2) 2.10 Troponin I 0.047 NT-Pro-B Natriuret Pep 11/21/16 11/22/16 11/23/16 22:30 06:30 05:20 Creatine Kinase CK-MB (CK-2) 8.19 H 7.63 H Troponin I 1.060 1.650 0.892 NT-Pro-B Natriuret Pep 11/23/16 11/23/16 11/23/16 12:07 12:07 19:58 Creatine Kinase 40 38 CK-MB (CK-2) 1.50 Troponin I 0.771 NT-Pro-B Natriuret Pep 11/23/16 11/24/16 11/24/16 19:58 04:35 04:35 Creatine Kinase 34 CK-MB (CK-2) 1.44 0.95 Troponin I 0.702 0.713 NT-Pro-B Natriuret Pep Impressions: Guidance Fluoroscopy 11/08/16 00:00 IMPRESSION: SUCCESSFUL PLACEMENT OF A 5 FR DUAL LUMEN 44 CM PICC IN THE LEFT BASILIC VEIN. Interventional Vascular Procedure 11/08/16 00:00 IMPRESSION: SUCCESSFUL PLACEMENT OF A 5 FR DUAL LUMEN 44 CM PICC IN THE LEFT BASILIC VEIN. PICC Line Insertion 11/08/16 00:00 IMPRESSION: SUCCESSFUL PLACEMENT OF A 5 FR DUAL LUMEN 44 CM PICC IN THE LEFT BASILIC VEIN. Knee X-Ray 11/10/16 00:00 IMPRESSION: NEGATIVE STUDY OF THE LEFT KNEE. NO RADIOGRAPHIC EVIDENCE OF ACUTE INJURY. Lumbar Spine X-Ray 11/10/16 00:00 IMPRESSION: Possible new minimal compression fractures of L2 and L5. Generalized osteopenia. Chronic T12 compression fracture. Lumbar Spine MRI 11/13/16 00:00 IMPRESSION: No acute findings in the lumbar spine. Chest X-Ray 11/24/16 07:00 IMPRESSION: STABLE LINES/ TUBES. STABLE MULTIFOCAL AIRSPACE DISEASE WITH PROBABLE LEFT PLEURAL EFFUSION. Assessment & Plan - Diagnosis (1) Acute chronic obstructive pulmonary disease with respiratory distress Is this a current diagnosis for this admission?: Yes (2) Non-ST elevated myocardial infarction Is this a current diagnosis for this admission?: Yes (3) Coronary artery disease Qualifiers: Coronary Disease-Associated Artery/Lesion type: [place] artery [place] vs. transplanted heart: [place] heart Associated angina: angina presence unspecified Qualified Code(s): I25.10 - Atherosclerotic heart disease of [place] coronary artery without angina pectoris Is this a current diagnosis for this admission?: Yes (4) Diabetes mellitus type 2 in obese Is this a current diagnosis for this admission?: Yes - Time Time Spent with patient: 25-34 minutes Medications reviewed and adjusted accordingly: Yes Anticipated discharge: SNF Within: Other - Inpatient Certification Based on my medical assessment, after consideration of the patient's comorbidities, presenting symptoms, or acuity I expect that the services needed warrant INPATIENT care.: Yes I certify that my determination is in accordance with my understanding of Medicare's requirements for reasonable and necessary INPATIENT services [42 CFR 412.3e].: Yes Medical Necessity: Need Close Monitoring Due to Risk of Patient Decompensation, Need For IV Fluids, Need For Continuous Telemetry Monitoring, Need for Nebulizer Therapy and Monitoring of Response, Need for IV Antibiotics, Risk of Complication if Not Cared For in Hospital Post Hospital Care: D/C or Transfer Summary - Plan Summary Plan Summary: See covering attending physician orders.
[2016-11-24] MEDS ORDERED: POLYETHYLENE GLYCOL 3350 POWDER 17 GM/1 PACKET PO ONE (11:30)
[2016-11-24] MEDS ORDERED: NA PHOS,M-B/NA PHOS,DI-BA (ADULT) 133 ML ENEMA PR ONE (12:00)
[2016-11-24] MEDS: NORMAL SALINE 1000 ML 1,000 ML IV PRN (14:26)
[2016-11-24 16:19] LABS: ARTERIAL BLOOD BASE EXCESS 7.4 mmol/L; ARTERIAL BLOOD O2 SATURATION 96.3 % (94-98)
--- NOTE | 2016-11-24 18:25 | PDOC PROGRESS REPORT ---
Subjective Progress Note for:: 11/24/16 Subjective:: Patient about the same and has made very little progress. There is no significant change in general condition. Currently undergoing daily short weaning trial. Patient remains intubated, sedated, patient however looks comfortable and in acute distress. Patient remains intermittently tachycardic. Patient today has been made a DNR. Medications reviewed. Physical Exam Vital Signs: Temp Pulse Resp BP Pulse Ox 98.6 F 75 17 123/62 96 11/22/16 18:00 11/24/16 14:14 11/24/16 18:00 11/24/16 17:54 11/24/16 18:00 Intake & Output 11/23/16 11/24/16 11/25/16 06:59 06:59 06:59 Intake Total 2606 2584 1344 Output Total 3100 4210 1925 Balance -494 -1626 -581 Weight 123.2 kg 121.6 kg Exam: GENERAL: well-nourished and in no acute distress. Patient is intubated and sedated. Orientation cannot be checked HEAD: Atraumatic, normocephalic. EYES: Pupils equal round and reactive to light, extraocular movements could not be checked, sclera anicteric, conjunctiva are normal. ENT: TMs normal, nares patent, oropharynx clear without exudates. Moist mucous membranes. No oral ulcerations or bleeding gums noted NECK: supple without lymphadenopathy or JVD. Trachea is central. No cervical or axillary lymphadenopathy noted. Carotids are 2+ LUNGS: Breath sounds mostly clear to auscultation patient is noted to have bibasal crackles at the extreme bases CHEST: Palpation of the chest wall shows no significant chest wall tenderness or abnormalities. HEART: [place] INTAKE CLINICIAN, No PSH, 2/6 JOHANNA aortic area, 1/6 mendoza systolic murmur mitral area , no rubs or gallops. ABDOMEN: Soft, no significant tenderness appreciated, normoactive bowel sounds. No guarding, no rebound. No rigidity noted . No masses appreciated. EXTREMITIES: Pedal pulses are 1-2+, no calf tenderness noted, 1+ pedal edema noted. No clubbing or cyanosis. NEUROLOGICAL: The patient cannot participate in the neurological exam but no facial asymmetry noted. Extremities slightly hypotonic PSYCH: This cannot be evaluated. Patient cannot participate. SKIN: No significant ecchymosis, rash, or signs of pruritus noted. MUSCULOSKELETAL EXAM: No significant joint swelling noted. Patient cannot participate in musculoskeletal exam Results Laboratory Results: 11/24/16 04:35 11/24/16 04:35 11/24/16 11/24/16 11/24/16 04:35 04:35 04:35 WBC 11.8 H RBC 3.26 L Hgb 9.5 L Hct 29.0 L MCV 89 MCH 29.0 MCHC 32.7 RDW 14.7 H Plt Count 301 Seg Neutrophils % Not Reportable Lymphocytes % Not Reportable Monocytes % Not Reportable Eosinophils % Not Reportable Basophils % Not Reportable Absolute Neutrophils Not Reportable Absolute Lymphocytes Not Reportable Absolute Monocytes Not Reportable Absolute Eosinophils Not Reportable Absolute Basophils Not Reportable Carbonic Acid 1.47 H HCO3/H2CO3 Ratio 21:1 ABG pH 7.44 ABG pCO2 48.9 H ABG pO2 66.5 L ABG HCO3 32.2 H ABG O2 Saturation 93.6 L ABG Base Excess 7.1 FiO2 35% Sodium 138.1 Potassium 4.5 Chloride 97 L Carbon Dioxide 31 H Anion Gap 10 BUN 43 H Creatinine 1.07 Est GFR ( Amer) > 60 Est GFR (Non-Af Amer) 52 L Glucose 326 H Calcium 8.0 L Magnesium 2.6 H Total Bilirubin 0.2 AST 12 L ALT 26 Alkaline Phosphatase 63 Total Protein 5.5 L Albumin 3.2 L 11/24/16 16:04 WBC RBC Hgb Hct MCV MCH MCHC RDW Plt Count Seg Neutrophils % Lymphocytes % Monocytes % Eosinophils % Basophils % Absolute Neutrophils Absolute Lymphocytes Absolute Monocytes Absolute Eosinophils Absolute Basophils Carbonic Acid 1.41 H HCO3/H2CO3 Ratio 22:1 ABG pH 7.46 H ABG pCO2 46.9 H ABG pO2 80.7 ABG HCO3 32.2 H ABG O2 Saturation 96.3 ABG Base Excess 7.4 FiO2 35% Sodium Potassium Chloride Carbon Dioxide Anion Gap BUN Creatinine Est GFR ( Amer) Est GFR (Non-Af Amer) Glucose Calcium Magnesium Total Bilirubin AST ALT Alkaline Phosphatase Total Protein Albumin 11/21/16 15:23 Kaur Catheter Urine Culture - Final C.albicans/C.dubliniensis 11/07/16 11/07/16 11/07/16 18:12 18:12 18:12 Creatine Kinase 33 CK-MB (CK-2) 1.10 Troponin I 0.018 NT-Pro-B Natriuret Pep 2110 H 11/08/16 11/08/16 11/08/16 00:35 00:35 05:54 Creatine Kinase 40 CK-MB (CK-2) 1.24 1.48 Troponin I 0.014 0.016 NT-Pro-B Natriuret Pep 11/08/16 11/20/16 11/20/16 05:54 16:50 16:50 Creatine Kinase 30 51 CK-MB (CK-2) 2.04 Troponin I < 0.012 NT-Pro-B Natriuret Pep 11/21/16 11/21/16 11/21/16 14:30 14:30 22:30 Creatine Kinase 30 81 CK-MB (CK-2) 2.10 Troponin I 0.047 NT-Pro-B Natriuret Pep 11/21/16 11/22/16 11/23/16 22:30 06:30 05:20 Creatine Kinase CK-MB (CK-2) 8.19 H 7.63 H Troponin I 1.060 1.650 0.892 NT-Pro-B Natriuret Pep 11/23/16 11/23/16 11/23/16 12:07 12:07 19:58 Creatine Kinase 40 38 CK-MB (CK-2) 1.50 Troponin I 0.771 NT-Pro-B Natriuret Pep 11/23/16 11/24/16 11/24/16 19:58 04:35 04:35 Creatine Kinase 34 CK-MB (CK-2) 1.44 0.95 Troponin I 0.702 0.713 NT-Pro-B Natriuret Pep EKG Comments: Telemetry strips reviewed shows intermittent sinus tachycardia, no sustained tachycardia or bradycardia arrhythmias were noted. Impressions: Guidance Fluoroscopy 11/08/16 00:00 IMPRESSION: SUCCESSFUL PLACEMENT OF A 5 FR DUAL LUMEN 44 CM PICC IN THE LEFT BASILIC VEIN. Interventional Vascular Procedure 11/08/16 00:00 IMPRESSION: SUCCESSFUL PLACEMENT OF A 5 FR DUAL LUMEN 44 CM PICC IN THE LEFT BASILIC VEIN. PICC Line Insertion 11/08/16 00:00 IMPRESSION: SUCCESSFUL PLACEMENT OF A 5 FR DUAL LUMEN 44 CM PICC IN THE LEFT BASILIC VEIN. Knee X-Ray 11/10/16 00:00 IMPRESSION: NEGATIVE STUDY OF THE LEFT KNEE. NO RADIOGRAPHIC EVIDENCE OF ACUTE INJURY. Lumbar Spine X-Ray 11/10/16 00:00 IMPRESSION: Possible new minimal compression fractures of L2 and L5. Generalized osteopenia. Chronic T12 compression fracture. Lumbar Spine MRI 11/13/16 00:00 IMPRESSION: No acute findings in the lumbar spine. Chest X-Ray 11/24/16 07:00 IMPRESSION: STABLE LINES/ TUBES. STABLE MULTIFOCAL AIRSPACE DISEASE WITH PROBABLE LEFT PLEURAL EFFUSION. Assessment & Plan - Diagnosis (1) Acute chronic obstructive pulmonary disease with respiratory distress Is this a current diagnosis for this admission?: Yes (2) Acute hypercapnic respiratory failure Is this a current diagnosis for this admission?: Yes (3) Elevated troponin Is this a current diagnosis for this admission?: Yes (4) Non-ST elevated myocardial infarction Is this a current diagnosis for this admission?: Yes (5) Coronary artery disease Qualifiers: Coronary Disease-Associated Artery/Lesion type: [place] artery [place] vs. transplanted heart: [place] heart Associated angina: without angina Qualified Code(s): I25.10 - Atherosclerotic heart disease of [place] coronary artery without angina pectoris Is this a current diagnosis for this admission?: Yes (6) Cardiomyopathy Qualifiers: Cardiomyopathy type: unspecified Qualified Code(s): I42.9 - Cardiomyopathy , unspecified Is this a current diagnosis for this admission?: Yes - Notes Notes: Acute on chronic respiratory failure. 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 Currently on ventilator along with oxygen supplementation. Respiratory failure , most likely related to severe COPD and respiratory depression. Patient getting daily weaning trials. Patient has been noted to have some underlying anxiety. Elevated troponin I: No significant EKG changes noted but patient does have baseline left bundle. 2D echo does show severely depressed LVEF at approximately 25%. Will maximize management of underlying CAD and cardiomyopathy. Will try to obtain previous cardiac evaluations. Non-STEMI: Troponin I elevation in the non-STEMI range. Will optimize medical management. Continue dual antiplatelet therapy, DVT prophylaxis Lovenox, consider beta-allan, KEMAR inhibitor etc. have added Ranexa but patient probably not getting it. Recommend starting it once patient allowed p.o. Coronary artery disease: Referred to above plans and elevated troponin IN non- STEMI. Cardiomyopathy: 2D echo shows severely depressed LVEF at 25%. LV also dilated. No significant valvular abnormalities noted. Patient noted to have diffuse hypokinesia. Study was technically difficult. Will try to optimize therapy for underlying cardiomyopathy and also CAD. - Time Time with patient: 15-25 minutes - CODE STATUS : was discussed, patient remains DO NOT RESUSCITATE. Surrogate decision-maker unchanged. Multiple medical problems were addressed. More than 50% of the time spent coordinating care, discussing management plans with involved caregivers. Management plans discussed with involved personnels. Medical decision making was of moderate to high complexity, patient's has multiple comorbidities. Medications reviewed and adjusted accordingly: Yes
[2016-11-24] MEDS: ATORVASTATIN CALCIUM 40 MG TABLET NG SCH (21:43)
[2016-11-25] MEDS: CEFTAZIDIME PENTAHYDRATE 1 GM in DEXTROSE 5%-WATER 50 ML IV SCH ×3 (01:01→17:16)
[2016-11-25] MEDS: PROPOFOL 100 ML IV PRN ×3 (01:12→05:52)
[2016-11-25] MEDS: IPRATROPIUM/ALBUTEROL 0.5-2.5 MG/3 ML AMPUL NEB SCH ×4 (02:59→20:19)
[2016-11-25] MEDS: GABAPENTIN 300 MG CAPSULE NG SCH ×4 (05:39→23:57)
[2016-11-25] MEDS: FAMOTIDINE INJ/PF 20 MG/2 ML SDV IV SCH ×2 (05:39→17:16)
[2016-11-25] MEDS: INSULIN REG, HUMAN 100 UNIT/ML 3 ML VIAL (PYX) SUBCUT PRN ×4 (05:39→23:57)
[2016-11-25] MEDS: METHYLPREDNISOLONE INJ 125 MG/2 ML SDV IV SCH ×3 (05:39→21:24)
[2016-11-25 05:53] LABS: ALANINE AMINOTRANSFERASE 32 U/L (9-52); ALBUMIN 3.2 g/dL (3.5-5.0); ALKALINE PHOSPHATASE 59 U/L (38-126); ANION GAP 11 (5-19); ASPARTATE AMINO TRANSFERASE 18 U/L (14-36); BILIRUBIN,DIRECT 0.3 mg/dL (0.0-0.4); BILIRUBIN,TOTAL 0.3 mg/dL (0.2-1.3); BLOOD UREA NITROGEN 47 mg/dL (7-20); CALCIUM 7.9 mg/dL (8.4-10.2); CARBON DIOXIDE 31 mmol/L (22-30); CHLORIDE 96 mmol/L (98-107); CREATININE RESULT 1.01 mg/dL (0.52-1.25); GLUCOSE 319 mg/dL (75-110); MAGNESIUM 2.8 mg/dL (1.6-2.3); SODIUM 137.9 mmol/L (137-145); TOTAL PROTEIN 5.3 g/dL (6.3-8.2)
[2016-11-25 05:56] LABS: HEMATOCRIT 31.2 % (36.0-47.0); HEMOGLOBIN 10.1 g/dL (12.0-15.5); HGB HCT DIFFERENCE -0.9; MEAN CORPUSCULAR HEMOGLOBIN 28.5 pg (27.0-33.4); MEAN CORPUSCULAR HGB CONC 32.3 g/dL (32.0-36.0); MEAN CORPUSCULAR VOLUME 88 fl (80-97); RED BLOOD COUNT 3.53 10^6/uL (3.72-5.28); RED CELL DISTRIBUTION WIDTH 14.8 % (11.5-14.0); WHITE BLOOD COUNT 11.5 10^3/uL (4.0-10.5)
[2016-11-25 06:34] LABS: BAND NEUTROPHILS % (MANUAL) 1 % (3-5); BASOPHILS % (MANUAL) 0 % (0-2); EOSINOPHILS % (MANUAL) 0 % (0-6); LYMPHOCYTES % (MANUAL) 3 % (13-45); TOTAL CELLS COUNTED 100
[2016-11-25 06:37] LABS: ANISOCYTOSIS SLIGHT; HYPOCHROMASIA 1+; OVALOCYTES SLIGHT; POIKILOCYTOSIS SLIGHT; TARGET CELLS SLIGHT; TOXIC GRANULATION 1+
--- NOTE | 2016-11-25 06:47 | RADIOLOGY REPORT (SQ) ---
EXAM DESCRIPTION: CHEST SINGLE VIEW CLINICAL HISTORY: 66 years, Female, hypercapnic respiratory failure COMPARISON: Yesterday's chest radiograph at 0600 hours. NUMBER OF VIEWS: 1 TECHNIQUE: Routine radiographic technique. LIMITATIONS: None. FINDINGS: Lines and tubes remain in appropriate position. Improving left basilar atelectasis and small left pleural effusion. No pneumothorax. IMPRESSION: Improving small left pleural effusion and left basilar atelectasis. Otherwise, unchanged chest radiograph. 2011 [employer]- All Rights Reserved
[2016-11-25 08:30] LABS: ARTERIAL BLOOD BASE EXCESS 6.8 mmol/L; ARTERIAL BLOOD O2 SATURATION 94.9 % (94-98)
[2016-11-25] MEDS: TRAMADOL HCL 50 MG TABLET NG PRN ×2 (09:50→17:48)
[2016-11-25] MEDS: SERTRALINE HCL 50 MG TABLET NG SCH (09:51)
[2016-11-25] MEDS: CLOPIDOGREL BISULFATE 75 MG TABLET NG SCH (09:52)
[2016-11-25] MEDS: MAGNESIUM OXIDE 400 MG TABLET NG SCH (09:53)
[2016-11-25] MEDS: ASPIRIN 81 MG TABLET, CHEWABLE NG SCH (09:53)
[2016-11-25] MEDS: INSULIN DETEMIR 100 UNIT/ML 3 ML PEN SUBCUT SCH ×2 (09:53→21:25)
[2016-11-25] MEDS: SULFAMETHOXAZOLE/TRIMETHOPRIM 800-160 MG/20 ML UDCUP PO SCH ×2 (09:53→21:25)
[2016-11-25] MEDS: ENOXAPARIN SODIUM INJ 40 MG/0.4 ML DISP.SYRIN SUBCUT SCH (09:53)
[2016-11-25] MEDS: RANOLAZINE 500 MG TAB.SR.12H PO SCH ×2 (10:00→21:24)
[2016-11-25] MEDS: IPRATROPIUM/ALBUTEROL 0.5-2.5 MG/3 ML AMPUL NEB PRN (10:01)
--- NOTE | 2016-11-25 11:01 | PDOC PROGRESS REPORT ---
Subjective Progress Note for:: 11/24/16 Subjective:: intubated Responds to simple commands Physical Exam Vital Signs: Temp Pulse Resp BP Pulse Ox 98.6 F 78 19 131/73 H 96 11/22/16 18:00 11/24/16 08:11 11/24/16 10:00 11/24/16 09:53 11/24/16 10:00 Intake & Output 11/23/16 11/24/16 11/25/16 06:59 06:59 06:59 Intake Total 2606 2584 Output Total 3100 4210 350 Balance -494 -1626 -350 Weight 123.2 kg 121.6 kg General appearance: PRESENT: no acute distress, disheveled, obese, well- developed Head exam: PRESENT: atraumatic, normocephalic Eye exam: PRESENT: conjunctiva pale, EOMI Mouth exam: PRESENT: dry mucosa, neck supple, tongue midline, other - ET tube in place Neck exam: ABSENT: carotid bruit, JVD, lymphadenopathy, thyromegaly Respiratory exam: PRESENT: decreased breath sounds, prolonged expiratory phas, rhonchi, symmetrical, unlabored. ABSENT: retraction, stridor, tachypnea Cardiovascular exam: PRESENT: RRR, +S1, +S2. ABSENT: tachycardia Pulses: PRESENT: +1 pedal pulses bilateral GI/Abdominal exam: PRESENT: normal bowel sounds, soft. ABSENT: distended, guarding, mass, organolmegaly, rebound, tenderness Rectal exam: PRESENT: deferred Gentrourinary exam: PRESENT: indwelling catheter Neurological exam: PRESENT: awake Skin exam: PRESENT: dry, warm Results Laboratory Results: 11/24/16 04:35 11/24/16 04:35 11/23/16 11/24/16 11/24/16 12:07 04:35 04:35 WBC 11.8 H RBC 3.26 L Hgb 9.5 L Hct 29.0 L MCV 89 MCH 29.0 MCHC 32.7 RDW 14.7 H Plt Count 301 Seg Neutrophils % Not Reportable Lymphocytes % Not Reportable Monocytes % Not Reportable Eosinophils % Not Reportable Basophils % Not Reportable Absolute Neutrophils Not Reportable Absolute Lymphocytes Not Reportable Absolute Monocytes Not Reportable Absolute Eosinophils Not Reportable Absolute Basophils Not Reportable Carbonic Acid 1.35 HCO3/H2CO3 Ratio 21:1 ABG pH 7.42 ABG pCO2 45.0 ABG pO2 92.3 ABG HCO3 28.4 H ABG O2 Saturation 97.1 ABG Base Excess 3.4 FiO2 35% Sodium 138.1 Potassium 4.5 Chloride 97 L Carbon Dioxide 31 H Anion Gap 10 BUN 43 H Creatinine 1.07 Est GFR ( Amer) > 60 Est GFR (Non-Af Amer) 52 L Glucose 326 H Calcium 8.0 L Magnesium 2.6 H Total Bilirubin 0.2 AST 12 L ALT 26 Alkaline Phosphatase 63 Total Protein 5.5 L Albumin 3.2 L 11/24/16 04:35 WBC RBC Hgb Hct MCV MCH MCHC RDW Plt Count Seg Neutrophils % Lymphocytes % Monocytes % Eosinophils % Basophils % Absolute Neutrophils Absolute Lymphocytes Absolute Monocytes Absolute Eosinophils Absolute Basophils Carbonic Acid 1.47 H HCO3/H2CO3 Ratio 21:1 ABG pH 7.44 ABG pCO2 48.9 H ABG pO2 66.5 L ABG HCO3 32.2 H ABG O2 Saturation 93.6 L ABG Base Excess 7.1 FiO2 35% Sodium Potassium Chloride Carbon Dioxide Anion Gap BUN Creatinine Est GFR ( Amer) Est GFR (Non-Af Amer) Glucose Calcium Magnesium Total Bilirubin AST ALT Alkaline Phosphatase Total Protein Albumin 11/21/16 15:23 Kaur Catheter Urine Culture - Final C.albicans/C.dubliniensis 11/21/16 08:30 Tracheal Aspirate Gram Stain - Final 11/21/16 08:30 Tracheal Aspirate Sputum Culture - Final NORMAL PO 11/07/16 11/07/16 11/07/16 18:12 18:12 18:12 Creatine Kinase 33 CK-MB (CK-2) 1.10 Troponin I 0.018 NT-Pro-B Natriuret Pep 2110 H 11/08/16 11/08/16 11/08/16 00:35 00:35 05:54 Creatine Kinase 40 CK-MB (CK-2) 1.24 1.48 Troponin I 0.014 0.016 NT-Pro-B Natriuret Pep 11/08/16 11/20/16 11/20/16 05:54 16:50 16:50 Creatine Kinase 30 51 CK-MB (CK-2) 2.04 Troponin I < 0.012 NT-Pro-B Natriuret Pep 11/21/16 11/21/16 11/21/16 14:30 14:30 22:30 Creatine Kinase 30 81 CK-MB (CK-2) 2.10 Troponin I 0.047 NT-Pro-B Natriuret Pep 11/21/16 11/22/16 11/23/16 22:30 06:30 05:20 Creatine Kinase CK-MB (CK-2) 8.19 H 7.63 H Troponin I 1.060 1.650 0.892 NT-Pro-B Natriuret Pep 11/23/16 11/23/16 11/23/16 12:07 12:07 19:58 Creatine Kinase 40 38 CK-MB (CK-2) 1.50 Troponin I 0.771 NT-Pro-B Natriuret Pep 11/23/16 11/24/16 11/24/16 19:58 04:35 04:35 Creatine Kinase 34 CK-MB (CK-2) 1.44 0.95 Troponin I 0.702 0.713 NT-Pro-B Natriuret Pep Impressions: Guidance Fluoroscopy 11/08/16 00:00 IMPRESSION: SUCCESSFUL PLACEMENT OF A 5 FR DUAL LUMEN 44 CM PICC IN THE LEFT BASILIC VEIN. Interventional Vascular Procedure 11/08/16 00:00 IMPRESSION: SUCCESSFUL PLACEMENT OF A 5 FR DUAL LUMEN 44 CM PICC IN THE LEFT BASILIC VEIN. PICC Line Insertion 11/08/16 00:00 IMPRESSION: SUCCESSFUL PLACEMENT OF A 5 FR DUAL LUMEN 44 CM PICC IN THE LEFT BASILIC VEIN. Knee X-Ray 11/10/16 00:00 IMPRESSION: NEGATIVE STUDY OF THE LEFT KNEE. NO RADIOGRAPHIC EVIDENCE OF ACUTE INJURY. Lumbar Spine X-Ray 11/10/16 00:00 IMPRESSION: Possible new minimal compression fractures of L2 and L5. Generalized osteopenia. Chronic T12 compression fracture. Lumbar Spine MRI 11/13/16 00:00 IMPRESSION: No acute findings in the lumbar spine. Chest X-Ray 11/24/16 07:00 IMPRESSION: STABLE LINES/ TUBES. STABLE MULTIFOCAL AIRSPACE DISEASE WITH PROBABLE LEFT PLEURAL EFFUSION. Assessment & Plan - Diagnosis (1) Acute chronic obstructive pulmonary disease with respiratory distress Is this a current diagnosis for this admission?: Yes Plan: Patient can maintain minute ventilation strongly consider extubation (2) Acute exacerbation of chronic obstructive pulmonary disease (COPD) Is this a current diagnosis for this admission?: Yes (3) Diabetes mellitus Qualifiers: Diabetes mellitus type: type 2 Diabetes mellitus complication status: with neurologic complications Diabetes mellitus complication detail: with polyneuropathy Diabetes mellitus roofer metal insulin use: with roofer metal use Qualified Code(s): E11.42 - Type 2 diabetes mellitus with diabetic polyneuropathy Is this a current diagnosis for this admission?: Yes (4) Obesity Is this a current diagnosis for this admission?: Yes - Time Critical Time spent with patient: 35 or more minutes - 40 minutes
--- NOTE | 2016-11-25 11:03 | PDOC PROGRESS REPORT ---
Subjective Progress Note for:: 11/25/16 Subjective:: intubated Physical Exam Vital Signs: Temp Pulse Resp BP Pulse Ox 98.6 F 82 17 116/66 97 11/22/16 18:00 11/25/16 02:55 11/25/16 06:00 11/25/16 05:50 11/25/16 06:00 Intake & Output 11/24/16 11/25/16 11/26/16 06:59 06:59 06:59 Intake Total 2584 2909 Output Total 4211 7391 Balance -1626 -566 Weight 121.6 kg 120.7 kg General appearance: PRESENT: no acute distress, cooperative, disheveled, obese, well-developed Head exam: PRESENT: atraumatic, normocephalic Eye exam: PRESENT: conjunctiva pale, EOMI Mouth exam: PRESENT: dry mucosa, neck supple, tongue midline, other - ET tube in place Neck exam: ABSENT: carotid bruit, JVD, lymphadenopathy, thyromegaly Respiratory exam: PRESENT: decreased breath sounds, prolonged expiratory phas, rhonchi, symmetrical, unlabored. ABSENT: rales, retraction, stridor, tachypnea Cardiovascular exam: PRESENT: RRR, +S1, +S2 Pulses: PRESENT: normal radial pulses GI/Abdominal exam: PRESENT: normal bowel sounds, soft. ABSENT: distended, guarding, mass, organolmegaly, rebound, tenderness Rectal exam: PRESENT: deferred Gentrourinary exam: PRESENT: indwelling catheter Extremities exam: PRESENT: +1 edema Neurological exam: PRESENT: awake Skin exam: PRESENT: dry, warm Results Laboratory Results: 11/25/16 05:29 11/25/16 05:29 11/24/16 11/25/16 11/25/16 16:04 05:29 05:29 WBC 11.5 H RBC 3.53 L Hgb 10.1 L Hct 31.2 L MCV 88 MCH 28.5 MCHC 32.3 RDW 14.8 H Plt Count 306 Seg Neutrophils % Not Reportable Lymphocytes % Not Reportable Monocytes % Not Reportable Eosinophils % Not Reportable Basophils % Not Reportable Absolute Neutrophils Not Reportable Absolute Lymphocytes Not Reportable Absolute Monocytes Not Reportable Absolute Eosinophils Not Reportable Absolute Basophils Not Reportable Carbonic Acid 1.41 H HCO3/H2CO3 Ratio 22:1 ABG pH 7.46 H ABG pCO2 46.9 H ABG pO2 80.7 ABG HCO3 32.2 H ABG O2 Saturation 96.3 ABG Base Excess 7.4 FiO2 35% Sodium 137.9 Potassium 5.0 Chloride 96 L Carbon Dioxide 31 H Anion Gap 11 BUN 47 H Creatinine 1.01 Est GFR ( Amer) > 60 Est GFR (Non-Af Amer) 55 L Glucose 319 H Calcium 7.9 L Magnesium 2.8 H Total Bilirubin 0.3 AST 18 ALT 32 Alkaline Phosphatase 59 Total Protein 5.3 L Albumin 3.2 L 11/07/16 11/07/16 11/07/16 18:12 18:12 18:12 Creatine Kinase 33 CK-MB (CK-2) 1.10 Troponin I 0.018 NT-Pro-B Natriuret Pep 2110 H 11/08/16 11/08/16 11/08/16 00:35 00:35 05:54 Creatine Kinase 40 CK-MB (CK-2) 1.24 1.48 Troponin I 0.014 0.016 NT-Pro-B Natriuret Pep 11/08/16 11/20/16 11/20/16 05:54 16:50 16:50 Creatine Kinase 30 51 CK-MB (CK-2) 2.04 Troponin I < 0.012 NT-Pro-B Natriuret Pep 11/21/16 11/21/16 11/21/16 14:30 14:30 22:30 Creatine Kinase 30 81 CK-MB (CK-2) 2.10 Troponin I 0.047 NT-Pro-B Natriuret Pep 11/21/16 11/22/16 11/23/16 22:30 06:30 05:20 Creatine Kinase CK-MB (CK-2) 8.19 H 7.63 H Troponin I 1.060 1.650 0.892 NT-Pro-B Natriuret Pep 11/23/16 11/23/16 11/23/16 12:07 12:07 19:58 Creatine Kinase 40 38 CK-MB (CK-2) 1.50 Troponin I 0.771 NT-Pro-B Natriuret Pep 11/23/16 11/24/16 11/24/16 19:58 04:35 04:35 Creatine Kinase 34 CK-MB (CK-2) 1.44 0.95 Troponin I 0.702 0.713 NT-Pro-B Natriuret Pep Impressions: Guidance Fluoroscopy 11/08/16 00:00 IMPRESSION: SUCCESSFUL PLACEMENT OF A 5 FR DUAL LUMEN 44 CM PICC IN THE LEFT BASILIC VEIN. Interventional Vascular Procedure 11/08/16 00:00 IMPRESSION: SUCCESSFUL PLACEMENT OF A 5 FR DUAL LUMEN 44 CM PICC IN THE LEFT BASILIC VEIN. PICC Line Insertion 11/08/16 00:00 IMPRESSION: SUCCESSFUL PLACEMENT OF A 5 FR DUAL LUMEN 44 CM PICC IN THE LEFT BASILIC VEIN. Knee X-Ray 11/10/16 00:00 IMPRESSION: NEGATIVE STUDY OF THE LEFT KNEE. NO RADIOGRAPHIC EVIDENCE OF ACUTE INJURY. Lumbar Spine X-Ray 11/10/16 00:00 IMPRESSION: Possible new minimal compression fractures of L2 and L5. Generalized osteopenia. Chronic T12 compression fracture. Lumbar Spine MRI 11/13/16 00:00 IMPRESSION: No acute findings in the lumbar spine. Chest X-Ray 11/25/16 07:00 IMPRESSION: Improving small left pleural effusion and left basilar atelectasis. Otherwise, unchanged chest radiograph. 2010 [employer]- All Rights Reserved Assessment & Plan - Diagnosis (1) Acute chronic obstructive pulmonary disease with respiratory distress Is this a current diagnosis for this admission?: Yes Plan: Respiratory rate and ventilation and FiO2 level of consciousness suggest successful extubation will proceed with extubation (2) Acute exacerbation of chronic obstructive pulmonary disease (COPD) Is this a current diagnosis for this admission?: Yes (3) Diabetes mellitus Qualifiers: Diabetes mellitus type: type 2 Diabetes mellitus complication status: with neurologic complications Diabetes mellitus complication detail: with polyneuropathy 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
[2016-11-25] MEDS: NORMAL SALINE 1000 ML 1,000 ML IV PRN (17:28)
--- NOTE | 2016-11-25 19:49 | PDOC PROGRESS REPORT ---
Subjective Progress Note for:: 11/25/16 Subjective:: Patient presently extubated alert and oriented asking for food Physical Exam Vital Signs: Temp Pulse Resp BP Pulse Ox 98.6 F 91 15 141/72 H 95 11/25/16 18:00 11/25/16 18:00 11/25/16 18:00 11/25/16 18:00 11/25/16 18:00 Intake & Output 11/24/16 11/25/16 11/26/16 06:59 06:59 06:59 Intake Total 2582 6385 525 Output Total 4210 3475 675 Balance -1626 -566 -150 Weight 121.6 kg 120.7 kg General appearance: PRESENT: no acute distress, well-developed, well-nourished Head exam: PRESENT: atraumatic, normocephalic Eye exam: PRESENT: conjunctiva pink, EOMI, PERRLA Neck exam: PRESENT: full ROM Respiratory exam: PRESENT: clear to auscultation rolf Cardiovascular exam: PRESENT: RRR, +S1, +S2 Pulses: PRESENT: normal dorsalis pedis pul, +2 pedal pulses bilateral Vascular exam: PRESENT: normal capillary refill GI/Abdominal exam: PRESENT: normal bowel sounds, soft Rectal exam: PRESENT: deferred Neurological exam: PRESENT: alert, CN II-XII grossly intact Psychiatric exam: PRESENT: appropriate affect, normal mood Skin exam: PRESENT: dry, intact, warm Results Laboratory Results: 11/25/16 05:29 11/25/16 05:29 11/25/16 11/25/16 11/25/16 05:29 05:29 08:15 WBC 11.5 H RBC 3.53 L Hgb 10.1 L Hct 31.2 L MCV 88 MCH 28.5 MCHC 32.3 RDW 14.8 H Plt Count 306 Seg Neutrophils % Not Reportable Lymphocytes % Not Reportable Monocytes % Not Reportable Eosinophils % Not Reportable Basophils % Not Reportable Absolute Neutrophils Not Reportable Absolute Lymphocytes Not Reportable Absolute Monocytes Not Reportable Absolute Eosinophils Not Reportable Absolute Basophils Not Reportable Carbonic Acid 1.44 H HCO3/H2CO3 Ratio 22:1 ABG pH 7.44 ABG pCO2 47.9 H ABG pO2 72.4 L ABG HCO3 31.9 H ABG O2 Saturation 94.9 ABG Base Excess 6.8 FiO2 35% Sodium 137.9 Potassium 5.0 Chloride 96 L Carbon Dioxide 31 H Anion Gap 11 BUN 47 H Creatinine 1.01 Est GFR ( Amer) > 60 Est GFR (Non-Af Amer) 55 L Glucose 319 H Calcium 7.9 L Magnesium 2.8 H Total Bilirubin 0.3 AST 18 ALT 32 Alkaline Phosphatase 59 Total Protein 5.3 L Albumin 3.2 L 11/07/16 11/07/16 11/07/16 18:12 18:12 18:12 Creatine Kinase 33 CK-MB (CK-2) 1.10 Troponin I 0.018 NT-Pro-B Natriuret Pep 2110 H 11/08/16 11/08/16 11/08/16 00:35 00:35 05:54 Creatine Kinase 40 CK-MB (CK-2) 1.24 1.48 Troponin I 0.014 0.016 NT-Pro-B Natriuret Pep 11/08/16 11/20/16 11/20/16 05:54 16:50 16:50 Creatine Kinase 30 51 CK-MB (CK-2) 2.04 Troponin I < 0.012 NT-Pro-B Natriuret Pep 11/21/16 11/21/16 11/21/16 14:30 14:30 22:30 Creatine Kinase 30 81 CK-MB (CK-2) 2.10 Troponin I 0.047 NT-Pro-B Natriuret Pep 11/21/16 11/22/16 11/23/16 22:30 06:30 05:20 Creatine Kinase CK-MB (CK-2) 8.19 H 7.63 H Troponin I 1.060 1.650 0.892 NT-Pro-B Natriuret Pep 11/23/16 11/23/16 11/23/16 12:07 12:07 19:58 Creatine Kinase 40 38 CK-MB (CK-2) 1.50 Troponin I 0.771 NT-Pro-B Natriuret Pep 11/23/16 11/24/16 11/24/16 19:58 04:35 04:35 Creatine Kinase 34 CK-MB (CK-2) 1.44 0.95 Troponin I 0.702 0.713 NT-Pro-B Natriuret Pep Impressions: Guidance Fluoroscopy 11/08/16 00:00 IMPRESSION: SUCCESSFUL PLACEMENT OF A 5 FR DUAL LUMEN 44 CM PICC IN THE LEFT BASILIC VEIN. Interventional Vascular Procedure 11/08/16 00:00 IMPRESSION: SUCCESSFUL PLACEMENT OF A 5 FR DUAL LUMEN 44 CM PICC IN THE LEFT BASILIC VEIN. PICC Line Insertion 11/08/16 00:00 IMPRESSION: SUCCESSFUL PLACEMENT OF A 5 FR DUAL LUMEN 44 CM PICC IN THE LEFT BASILIC VEIN. Knee X-Ray 11/10/16 00:00 IMPRESSION: NEGATIVE STUDY OF THE LEFT KNEE. NO RADIOGRAPHIC EVIDENCE OF ACUTE INJURY. Lumbar Spine X-Ray 11/10/16 00:00 IMPRESSION: Possible new minimal compression fractures of L2 and L5. Generalized osteopenia. Chronic T12 compression fracture. Lumbar Spine MRI 11/13/16 00:00 IMPRESSION: No acute findings in the lumbar spine. Chest X-Ray 11/25/16 07:00 IMPRESSION: Improving small left pleural effusion and left basilar atelectasis. Otherwise, unchanged chest radiograph. 2010 [employer]- All Rights Reserved Assessment & Plan - Diagnosis (1) Acute hypercapnic respiratory failure Is this a current diagnosis for this admission?: Yes (2) Diabetes mellitus type 2 in obese Is this a current diagnosis for this admission?: Yes (3) Peripheral vascular disease Is this a current diagnosis for this admission?: Yes (4) COPD (chronic obstructive pulmonary disease) Qualifiers: COPD type: COPD with acute exacerbation Qualified Code(s): J44.1 - Chronic obstructive pulmonary disease with (acute) exacerbation Is this a current diagnosis for this admission?: Yes (5) Coronary artery disease Qualifiers: Coronary Disease-Associated Artery/Lesion type: [place] artery [place] vs. transplanted heart: nome heart Associated angina: angina presence unspecified Qualified Code(s): I25.10 - Atherosclerotic heart disease of [place] coronary artery without angina pectoris Is this a current diagnosis for this admission?: Yes (6) Physical deconditioning Is this a current diagnosis for this admission?: Yes (7) Urinary tract infection Qualifiers: Urinary tract infection type: site unspecified Hematuria presence: without hematuria Qualified Code(s): N39.0 - Urinary tract infection, site not specified Is this a current diagnosis for this admission?: Yes (8) Enterococcus UTI Is this a current diagnosis for this admission?: Yes (9) Non-ST elevated myocardial infarction Is this a current diagnosis for this admission?: Yes (10) Hypotension Qualifiers: Hypotension type: other hypotension type Qualified Code(s): I95.89 - Other hypotension Is this a current diagnosis for this admission?: Yes (11) Acute chronic obstructive pulmonary disease with respiratory distress Is this a current diagnosis for this admission?: Yes (12) Diabetes mellitus Qualifiers: Diabetes mellitus type: type 2 Diabetes mellitus complication status: with neurologic complications Diabetes mellitus complication detail: with polyneuropathy Diabetes mellitus buttermaker insulin use: with prison use Qualified Code(s): E11.42 - Type 2 diabetes mellitus with diabetic polyneuropathy Is this a current diagnosis for this admission?: Yes - Plan Summary Plan Summary: Continue present treatment
--- NOTE | 2016-11-25 20:09 | PDOC PROGRESS REPORT ---
Subjective Progress Note for:: 11/25/16 Subjective:: Patient has made some progress. Plan is to extubate. Patient was seen on morning rounds at around 8:30 AM when patient was still intubated. There is no significant change in general condition. Currently undergoing daily short weaning trial. Patient remains intubated, sedated, patient however looks comfortable and in acute distress. Patient remains intermittently tachycardic. Patient today has been made a DNR. Medications reviewed. Physical Exam Vital Signs: Temp Pulse Resp BP Pulse Ox 98.6 F 89 15 141/72 H 95 11/25/16 18:00 11/25/16 19:55 11/25/16 18:00 11/25/16 18:00 11/25/16 18:00 Intake & Output 11/24/16 11/25/16 11/26/16 06:59 06:59 06:59 Intake Total 2584 2909 525 Output Total 4210 3835 775 Balance -1626 -566 -250 Weight 121.6 kg 120.7 kg Exam: GENERAL: well-nourished and in no acute distress. Patient is intubated and sedated. Orientation cannot be checked HEAD: Atraumatic, normocephalic. EYES: Pupils equal round and reactive to light, extraocular movements could not be checked, sclera anicteric, conjunctiva are normal. ENT: TMs normal, nares patent, oropharynx clear without exudates. Moist mucous membranes. No oral ulcerations or bleeding gums noted NECK: supple without lymphadenopathy or JVD. Trachea is central. No cervical or axillary lymphadenopathy noted. Carotids are 2+ LUNGS: Breath sounds mostly clear to auscultation patient is noted to have bibasal crackles at the extreme bases CHEST: Palpation of the chest wall shows no significant chest wall tenderness or abnormalities. 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 ABDOMEN: Soft, no significant tenderness appreciated, normoactive bowel sounds. No guarding, no rebound. No rigidity noted . No masses appreciated. EXTREMITIES: Pedal pulses are 1-2+, no calf tenderness noted, 1+ pedal edema noted. No clubbing or cyanosis. NEUROLOGICAL: The patient cannot participate in the neurological exam but no facial asymmetry noted. Extremities slightly hypotonic PSYCH: This cannot be evaluated. Patient cannot participate. SKIN: No significant ecchymosis, rash, or signs of pruritus noted. MUSCULOSKELETAL EXAM: No significant joint swelling noted. Patient cannot participate in musculoskeletal exam Results Laboratory Results: 11/25/16 05:29 11/25/16 05:29 11/25/16 11/25/16 11/25/16 05:29 05:29 08:15 WBC 11.5 H RBC 3.53 L Hgb 10.1 L Hct 31.2 L MCV 88 MCH 28.5 MCHC 32.3 RDW 14.8 H Plt Count 306 Seg Neutrophils % Not Reportable Lymphocytes % Not Reportable Monocytes % Not Reportable Eosinophils % Not Reportable Basophils % Not Reportable Absolute Neutrophils Not Reportable Absolute Lymphocytes Not Reportable Absolute Monocytes Not Reportable Absolute Eosinophils Not Reportable Absolute Basophils Not Reportable Carbonic Acid 1.44 H HCO3/H2CO3 Ratio 22:1 ABG pH 7.44 ABG pCO2 47.9 H ABG pO2 72.4 L ABG HCO3 31.9 H ABG O2 Saturation 94.9 ABG Base Excess 6.8 FiO2 35% Sodium 137.9 Potassium 5.0 Chloride 96 L Carbon Dioxide 31 H Anion Gap 11 BUN 47 H Creatinine 1.01 Est GFR ( Amer) > 60 Est GFR (Non-Af Amer) 55 L Glucose 319 H Calcium 7.9 L Magnesium 2.8 H Total Bilirubin 0.3 AST 18 ALT 32 Alkaline Phosphatase 59 Total Protein 5.3 L Albumin 3.2 L 11/07/16 11/07/16 11/07/16 18:12 18:12 18:12 Creatine Kinase 33 CK-MB (CK-2) 1.10 Troponin I 0.018 NT-Pro-B Natriuret Pep 2110 H 11/08/16 11/08/16 11/08/16 00:35 00:35 05:54 Creatine Kinase 40 CK-MB (CK-2) 1.24 1.48 Troponin I 0.014 0.016 NT-Pro-B Natriuret Pep 11/08/16 11/20/16 11/20/16 05:54 16:50 16:50 Creatine Kinase 30 51 CK-MB (CK-2) 2.04 Troponin I < 0.012 NT-Pro-B Natriuret Pep 11/21/16 11/21/16 11/21/16 14:30 14:30 22:30 Creatine Kinase 30 81 CK-MB (CK-2) 2.10 Troponin I 0.047 NT-Pro-B Natriuret Pep 11/21/16 11/22/16 11/23/16 22:30 06:30 05:20 Creatine Kinase CK-MB (CK-2) 8.19 H 7.63 H Troponin I 1.060 1.650 0.892 NT-Pro-B Natriuret Pep 11/23/16 11/23/16 11/23/16 12:07 12:07 19:58 Creatine Kinase 40 38 CK-MB (CK-2) 1.50 Troponin I 0.771 NT-Pro-B Natriuret Pep 11/23/16 11/24/16 11/24/16 19:58 04:35 04:35 Creatine Kinase 34 CK-MB (CK-2) 1.44 0.95 Troponin I 0.702 0.713 NT-Pro-B Natriuret Pep Impressions: Guidance Fluoroscopy 11/08/16 00:00 IMPRESSION: SUCCESSFUL PLACEMENT OF A 5 FR DUAL LUMEN 44 CM PICC IN THE LEFT BASILIC VEIN. Interventional Vascular Procedure 11/08/16 00:00 IMPRESSION: SUCCESSFUL PLACEMENT OF A 5 FR DUAL LUMEN 44 CM PICC IN THE LEFT BASILIC VEIN. PICC Line Insertion 11/08/16 00:00 IMPRESSION: SUCCESSFUL PLACEMENT OF A 5 FR DUAL LUMEN 44 CM PICC IN THE LEFT BASILIC VEIN. Knee X-Ray 11/10/16 00:00 IMPRESSION: NEGATIVE STUDY OF THE LEFT KNEE. NO RADIOGRAPHIC EVIDENCE OF ACUTE INJURY. Lumbar Spine X-Ray 11/10/16 00:00 IMPRESSION: Possible new minimal compression fractures of L2 and L5. Generalized osteopenia. Chronic T12 compression fracture. Lumbar Spine MRI 11/13/16 00:00 IMPRESSION: No acute findings in the lumbar spine. Chest X-Ray 11/25/16 07:00 IMPRESSION: Improving small left pleural effusion and left basilar atelectasis. Otherwise, unchanged chest radiograph. 2010 [employer]- All Rights Reserved Assessment & Plan - Diagnosis (1) Acute chronic obstructive pulmonary disease with respiratory distress Is this a current diagnosis for this admission?: Yes (2) Acute hypercapnic respiratory failure Is this a current diagnosis for this admission?: Yes (3) Elevated troponin Is this a current diagnosis for this admission?: Yes (4) Non-ST elevated myocardial infarction Is this a current diagnosis for this admission?: Yes (5) Coronary artery disease Qualifiers: Coronary Disease-Associated Artery/Lesion type: [place] artery [place] vs. transplanted heart: [place] heart Associated angina: without angina Qualified Code(s): I25.10 - Atherosclerotic heart disease of [place] coronary artery without angina pectoris Is this a current diagnosis for this admission?: Yes (6) Cardiomyopathy Qualifiers: Cardiomyopathy type: unspecified Qualified Code(s): I42.9 - Cardiomyopathy , unspecified Is this a current diagnosis for this admission?: Yes - Notes Notes: Acute on chronic respiratory failure. Patient being managed by slitter scorer. Currently on ventilator along with oxygen supplementation. Respiratory failure , most likely related to severe COPD and respiratory depression. Patient getting daily weaning trials. Patient has been noted to have some underlying anxiety. Patient for extubation later on today. Pyrometer Temperature Regulator following. Elevated troponin I: No significant EKG changes noted but patient does have baseline left bundle. 2D echo does show severely depressed LVEF at approximately 25%. Will maximize management of underlying CAD and cardiomyopathy. Will try to obtain previous cardiac evaluations. Non-STEMI: Troponin I elevation in the non-STEMI range. Will optimize medical management. Continue dual antiplatelet therapy, DVT prophylaxis Lovenox, consider beta-allan, KEMAR inhibitor etc. have added Ranexa but patient probably not getting it. Recommend starting it once patient allowed p.o. Coronary artery disease: Referred to above plans and elevated troponin IN non- STEMI. Cardiomyopathy: 2D echo shows severely depressed LVEF at 25%. LV also dilated. No significant valvular abnormalities noted. Patient noted to have diffuse hypokinesia. Study was technically difficult. Will try to optimize therapy for underlying cardiomyopathy and also CAD. - Time Time with patient: 15-25 minutes - CODE STATUS : was discussed, patient remains DO NOT RESUSCITATE. Surrogate decision-maker unchanged. Multiple medical problems were addressed. More than 50% of the time spent coordinating care, discussing management plans with involved caregivers. Management plans discussed with involved personnels. Medical decision making was of moderate to high complexity, patient's has multiple comorbidities. Medications reviewed and adjusted accordingly: Yes
[2016-11-25] MEDS: ATORVASTATIN CALCIUM 40 MG TABLET NG SCH (21:24)
[2016-11-26] MEDS: IPRATROPIUM/ALBUTEROL 0.5-2.5 MG/3 ML AMPUL NEB SCH ×4 (01:32→20:18)
[2016-11-26] MEDS: TRAMADOL HCL 50 MG TABLET NG PRN ×3 (01:32→18:52)
[2016-11-26] MEDS: CEFTAZIDIME PENTAHYDRATE 1 GM in DEXTROSE 5%-WATER 50 ML IV SCH ×3 (01:34→17:14)
[2016-11-26 05:06] LABS: HEMATOCRIT 30.7 % (36.0-47.0); HEMOGLOBIN 9.9 g/dL (12.0-15.5); MEAN CORPUSCULAR HEMOGLOBIN 28.4 pg (27.0-33.4); MEAN CORPUSCULAR HGB CONC 32.2 g/dL (32.0-36.0); MEAN CORPUSCULAR VOLUME 88 fl (80-97); RED BLOOD COUNT 3.47 10^6/uL (3.72-5.28); RED CELL DISTRIBUTION WIDTH 14.7 % (11.5-14.0); WHITE BLOOD COUNT 12.9 10^3/uL (4.0-10.5)
[2016-11-26 05:23] LABS: ALANINE AMINOTRANSFERASE 32 U/L (9-52); ALBUMIN 3.1 g/dL (3.5-5.0); ALKALINE PHOSPHATASE 45 U/L (38-126); ANION GAP 7 (5-19); ASPARTATE AMINO TRANSFERASE 19 U/L (14-36); BILIRUBIN,DIRECT 0.3 mg/dL (0.0-0.4); BILIRUBIN,TOTAL 0.3 mg/dL (0.2-1.3); BLOOD UREA NITROGEN 46 mg/dL (7-20); CALCIUM 8.1 mg/dL (8.4-10.2); CARBON DIOXIDE 32 mmol/L (22-30); CHLORIDE 100 mmol/L (98-107); CREATININE RESULT 0.81 mg/dL (0.52-1.25); GLUCOSE 209 mg/dL (75-110); POTASSIUM 5.3 mmol/L (3.6-5.0); SODIUM 139.1 mmol/L (137-145); TOTAL PROTEIN 5.2 g/dL (6.3-8.2)
[2016-11-26] MEDS: METHYLPREDNISOLONE INJ 125 MG/2 ML SDV IV SCH ×2 (05:27→14:59)
[2016-11-26] MEDS: GABAPENTIN 300 MG CAPSULE NG SCH ×4 (05:27→23:24)
[2016-11-26] MEDS: FAMOTIDINE INJ/PF 20 MG/2 ML SDV IV SCH ×2 (05:28→17:13)
[2016-11-26] MEDS: INSULIN REG, HUMAN 100 UNIT/ML 3 ML VIAL (PYX) SUBCUT PRN ×4 (05:28→21:39)
[2016-11-26 05:59] LABS: BASOPHILS % (MANUAL) 0 % (0-2); EOSINOPHILS % (MANUAL) 0 % (0-6); LYMPHOCYTES % (MANUAL) 4 % (13-45); OVALOCYTES SLIGHT; POIKILOCYTOSIS SLIGHT; POLYCHROMASIA SLIGHT; TOTAL CELLS COUNTED 100; TOXIC GRANULATION 1+
[2016-11-26 06:00] LABS: ANISOCYTOSIS SLIGHT
--- NOTE | 2016-11-26 07:47 | RADIOLOGY REPORT (SQ) ---
EXAM DESCRIPTION: CHEST SINGLE VIEW COMPLETED DATE/TIME: 11/26/2016 6:55 am REASON FOR STUDY: resp failure COMPARISON: CT chest 09/04/2016 Chest films 11/21/2016, 11/24/2016, 11/25/2016 EXAM PARAMETERS: NUMBER OF VIEWS: One view. TECHNIQUE: Single frontal radiographic view of the chest acquired. RADIATION DOSE: NA LIMITATIONS: None. FINDINGS: LUNGS AND PLEURA: No opacities, masses or pneumothorax. No pleural effusion. MEDIASTINUM AND HILAR STRUCTURES: No masses. Contour normal. HEART AND VASCULAR STRUCTURES: Stable moderate cardiomegaly BONES: No acute findings. HARDWARE: Left-sided PICC catheter tip in the superior vena cava OTHER: No other significant finding. IMPRESSION: No acute infiltrates TECHNICAL DOCUMENTATION: JOB ID: [id number]
[2016-11-26] MEDS: SERTRALINE HCL 50 MG TABLET NG SCH (09:33)
[2016-11-26] MEDS: CLOPIDOGREL BISULFATE 75 MG TABLET NG SCH (09:33)
[2016-11-26] MEDS: ASPIRIN 81 MG TABLET, CHEWABLE NG SCH (09:33)
[2016-11-26] MEDS: MAGNESIUM OXIDE 400 MG TABLET NG SCH (09:34)
[2016-11-26] MEDS: SULFAMETHOXAZOLE/TRIMETHOPRIM 800-160 MG/20 ML UDCUP PO SCH ×2 (09:34→21:16)
[2016-11-26] MEDS: RANOLAZINE 500 MG TAB.SR.12H PO SCH ×2 (09:34→21:15)
[2016-11-26] MEDS: ENOXAPARIN SODIUM INJ 40 MG/0.4 ML DISP.SYRIN SUBCUT SCH (09:35)
[2016-11-26] MEDS: INSULIN DETEMIR 100 UNIT/ML 3 ML PEN SUBCUT SCH ×2 (09:38→21:37)
--- NOTE | 2016-11-26 12:55 | PDOC PROGRESS REPORT ---
Subjective Progress Note for:: 11/26/16 Subjective:: 24 hours status post extubation Physical Exam Vital Signs: Temp Pulse Resp BP Pulse Ox 98.1 F 89 16 143/79 H 94 11/26/16 08:00 11/26/16 08:00 11/26/16 08:00 11/26/16 08:00 11/26/16 08:00 Intake & Output 11/25/16 11/26/16 11/27/16 06:59 06:59 06:59 Intake Total 2909 1369 210 Output Total 3475 1450 145 Balance -566 -81 65 Weight 120.7 kg 121.7 kg General appearance: PRESENT: no acute distress, disheveled, obese, well- developed Head exam: PRESENT: atraumatic, normocephalic Eye exam: PRESENT: conjunctiva pale Mouth exam: PRESENT: dry mucosa, neck supple, tongue midline Neck exam: ABSENT: carotid bruit, JVD, lymphadenopathy, thyromegaly Respiratory exam: PRESENT: decreased breath sounds, prolonged expiratory phas, rhonchi, symmetrical, unlabored, wheezes. ABSENT: crackles, rales, retraction, stridor, tachypnea Cardiovascular exam: PRESENT: RRR, +S1, +S2 Pulses: PRESENT: normal radial pulses GI/Abdominal exam: PRESENT: normal bowel sounds, soft. ABSENT: distended, guarding, mass, organolmegaly, rebound, tenderness Rectal exam: PRESENT: deferred Gentrourinary exam: PRESENT: indwelling catheter Extremities exam: PRESENT: +1 edema Neurological exam: PRESENT: alert, awake Skin exam: PRESENT: dry, warm Results Laboratory Results: 11/26/16 04:48 11/26/16 04:48 11/25/16 11/26/16 11/26/16 08:15 04:48 04:48 WBC 12.9 H RBC 3.47 L Hgb 9.9 L Hct 30.7 L MCV 88 MCH 28.4 MCHC 32.2 RDW 14.7 H Plt Count 293 Seg Neutrophils % Not Reportable Lymphocytes % Not Reportable Monocytes % Not Reportable Eosinophils % Not Reportable Basophils % Not Reportable Absolute Neutrophils Not Reportable Absolute Lymphocytes Not Reportable Absolute Monocytes Not Reportable Absolute Eosinophils Not Reportable Absolute Basophils Not Reportable Carbonic Acid 1.44 H 1.43 H HCO3/H2CO3 Ratio 22:1 21:1 ABG pH 7.44 7.42 ABG pCO2 47.9 H 47.6 H ABG pO2 72.4 L Not Reportable ABG HCO3 31.9 H 30.5 H ABG O2 Saturation 94.9 Not Reportable ABG Base Excess 6.8 5.3 FiO2 35% 28% Sodium Potassium Chloride Carbon Dioxide Anion Gap BUN Creatinine Est GFR ( Amer) Est GFR (Non-Af Amer) Glucose Calcium Total Bilirubin AST ALT Alkaline Phosphatase Total Protein Albumin 11/26/16 04:48 WBC RBC Hgb Hct MCV MCH MCHC RDW Plt Count Seg Neutrophils % Lymphocytes % Monocytes % Eosinophils % Basophils % Absolute Neutrophils Absolute Lymphocytes Absolute Monocytes Absolute Eosinophils Absolute Basophils Carbonic Acid HCO3/H2CO3 Ratio ABG pH ABG pCO2 ABG pO2 ABG HCO3 ABG O2 Saturation ABG Base Excess FiO2 Sodium 139.1 Potassium 5.3 H Chloride 100 Carbon Dioxide 32 H Anion Gap 7 BUN 46 H Creatinine 0.81 Est GFR ( Amer) > 60 Est GFR (Non-Af Amer) > 60 Glucose 209 H Calcium 8.1 L Total Bilirubin 0.3 AST 19 ALT 32 Alkaline Phosphatase 45 Total Protein 5.2 L Albumin 3.1 L 11/07/16 11/07/16 11/07/16 18:12 18:12 18:12 Creatine Kinase 33 CK-MB (CK-2) 1.10 Troponin I 0.018 NT-Pro-B Natriuret Pep 2110 H 11/08/16 11/08/16 11/08/16 00:35 00:35 05:54 Creatine Kinase 40 CK-MB (CK-2) 1.24 1.48 Troponin I 0.014 0.016 NT-Pro-B Natriuret Pep 11/08/16 11/20/16 11/20/16 05:54 16:50 16:50 Creatine Kinase 30 51 CK-MB (CK-2) 2.04 Troponin I < 0.012 NT-Pro-B Natriuret Pep 11/21/16 11/21/16 11/21/16 14:30 14:30 22:30 Creatine Kinase 30 81 CK-MB (CK-2) 2.10 Troponin I 0.047 NT-Pro-B Natriuret Pep 11/21/16 11/22/16 11/23/16 22:30 06:30 05:20 Creatine Kinase CK-MB (CK-2) 8.19 H 7.63 H Troponin I 1.060 1.650 0.892 NT-Pro-B Natriuret Pep 11/23/16 11/23/16 11/23/16 12:07 12:07 19:58 Creatine Kinase 40 38 CK-MB (CK-2) 1.50 Troponin I 0.771 NT-Pro-B Natriuret Pep 11/23/16 11/24/16 11/24/16 19:58 04:35 04:35 Creatine Kinase 34 CK-MB (CK-2) 1.44 0.95 Troponin I 0.702 0.713 NT-Pro-B Natriuret Pep Impressions: Guidance Fluoroscopy 11/08/16 00:00 IMPRESSION: SUCCESSFUL PLACEMENT OF A 5 FR DUAL LUMEN 44 CM PICC IN THE LEFT BASILIC VEIN. Interventional Vascular Procedure 11/08/16 00:00 IMPRESSION: SUCCESSFUL PLACEMENT OF A 5 FR DUAL LUMEN 44 CM PICC IN THE LEFT BASILIC VEIN. PICC Line Insertion 11/08/16 00:00 IMPRESSION: SUCCESSFUL PLACEMENT OF A 5 FR DUAL LUMEN 44 CM PICC IN THE LEFT BASILIC VEIN. Knee X-Ray 11/10/16 00:00 IMPRESSION: NEGATIVE STUDY OF THE LEFT KNEE. NO RADIOGRAPHIC EVIDENCE OF ACUTE INJURY. Lumbar Spine X-Ray 11/10/16 00:00 IMPRESSION: Possible new minimal compression fractures of L2 and L5. Generalized osteopenia. Chronic T12 compression fracture. Lumbar Spine MRI 11/13/16 00:00 IMPRESSION: No acute findings in the lumbar spine. Chest X-Ray 11/26/16 06:00 IMPRESSION: No acute infiltrates Assessment & Plan - Diagnosis (1) Acute chronic obstructive pulmonary disease with respiratory distress Is this a current diagnosis for this admission?: Yes (2) Acute exacerbation of chronic obstructive pulmonary disease (COPD) Is this a current diagnosis for this admission?: Yes (3) Diabetes mellitus Qualifiers: Diabetes mellitus type: type 2 Diabetes mellitus complication status: with neurologic complications Diabetes mellitus complication detail: with polyneuropathy Diabetes mellitus terminologist insulin use: with terminologist use Qualified Code(s): E11.42 - Type 2 diabetes mellitus with diabetic polyneuropathy Is this a current diagnosis for this admission?: Yes (4) Obesity Is this a current diagnosis for this admission?: Yes - Time Critical Time spent with patient: 25-34 minutes
[2016-11-26 13:38] LABS: ARTERIAL BLOOD BASE EXCESS 6.7 mmol/L; ARTERIAL BLOOD O2 SATURATION 87.4 % (94-98)
[2016-11-26] MEDS ORDERED: METHYLPREDNISOLONE INJ 125 MG/2 ML SDV IV SCH (20:20)
--- NOTE | 2016-11-26 20:25 | PDOC PROGRESS REPORT ---
Subjective Progress Note for:: 11/26/16 Subjective:: Patient was seen by the bedside, she is of mechanical ventilation, she complained of pain, she is requesting for the tramadol to be transitioned to IV. She was advised that she could no longer take any opioid because of poor ventilatory status, she will be downgraded to the floor/telemetry Physical Exam Vital Signs: Temp Pulse Resp BP Pulse Ox 98.6 F 96 18 148/82 H 97 11/26/16 18:00 11/26/16 19:27 11/26/16 19:00 11/26/16 18:51 11/26/16 19:00 Intake & Output 11/25/16 11/26/16 11/27/16 06:59 06:59 06:59 Intake Total 2909 1369 1150 Output Total 3475 1450 1025 Balance -566 -81 125 Weight 120.7 kg 121.7 kg General appearance: PRESENT: no acute distress Eye exam: PRESENT: PERRLA Respiratory exam: PRESENT: rhonchi Cardiovascular exam: PRESENT: +S1, +S2 GI/Abdominal exam: PRESENT: soft Neurological exam: PRESENT: alert Results Laboratory Results: 11/26/16 04:48 11/26/16 04:48 11/26/16 11/26/16 11/26/16 04:48 04:48 04:48 WBC 12.9 H RBC 3.47 L Hgb 9.9 L Hct 30.7 L MCV 88 MCH 28.4 MCHC 32.2 RDW 14.7 H Plt Count 293 Seg Neutrophils % Not Reportable Lymphocytes % Not Reportable Monocytes % Not Reportable Eosinophils % Not Reportable Basophils % Not Reportable Absolute Neutrophils Not Reportable Absolute Lymphocytes Not Reportable Absolute Monocytes Not Reportable Absolute Eosinophils Not Reportable Absolute Basophils Not Reportable Carbonic Acid HCO3/H2CO3 Ratio ABG pH ABG pCO2 ABG pO2 Not Reportable ABG HCO3 ABG O2 Saturation Not Reportable ABG Base Excess FiO2 Sodium 139.1 Potassium 5.3 H Chloride 100 Carbon Dioxide 32 H Anion Gap 7 BUN 46 H Creatinine 0.81 Est GFR ( Amer) > 60 Est GFR (Non-Af Amer) > 60 Glucose 209 H Calcium 8.1 L Total Bilirubin 0.3 AST 19 ALT 32 Alkaline Phosphatase 45 Total Protein 5.2 L Albumin 3.1 L 11/26/16 08:30 WBC RBC Hgb Hct MCV MCH MCHC RDW Plt Count Seg Neutrophils % Lymphocytes % Monocytes % Eosinophils % Basophils % Absolute Neutrophils Absolute Lymphocytes Absolute Monocytes Absolute Eosinophils Absolute Basophils Carbonic Acid 1.51 H HCO3/H2CO3 Ratio 21:1 ABG pH 7.43 ABG pCO2 50.2 H ABG pO2 52.4 L ABG HCO3 32.2 H ABG O2 Saturation 87.4 L ABG Base Excess 6.7 FiO2 2L Sodium Potassium Chloride Carbon Dioxide Anion Gap BUN Creatinine Est GFR ( Amer) Est GFR (Non-Af Amer) Glucose Calcium Total Bilirubin AST ALT Alkaline Phosphatase Total Protein Albumin 11/21/16 17:45 Blood Blood Culture - Final NO GROWTH IN 5 DAYS 11/21/16 14:33 Blood Blood Culture - Final NO GROWTH IN 5 DAYS 11/21/16 15:15 Blood Blood Culture - Final NO GROWTH IN 5 DAYS 11/21/16 15:21 Blood Blood Culture - Final NO GROWTH IN 5 DAYS 11/07/16 11/07/16 11/07/16 18:12 18:12 18:12 Creatine Kinase 33 CK-MB (CK-2) 1.10 Troponin I 0.018 NT-Pro-B Natriuret Pep 2110 H 11/08/16 11/08/16 11/08/16 00:35 00:35 05:54 Creatine Kinase 40 CK-MB (CK-2) 1.24 1.48 Troponin I 0.014 0.016 NT-Pro-B Natriuret Pep 11/08/16 11/20/16 11/20/16 05:54 16:50 16:50 Creatine Kinase 30 51 CK-MB (CK-2) 2.04 Troponin I < 0.012 NT-Pro-B Natriuret Pep 11/21/16 11/21/16 11/21/16 14:30 14:30 22:30 Creatine Kinase 30 81 CK-MB (CK-2) 2.10 Troponin I 0.047 NT-Pro-B Natriuret Pep 11/21/16 11/22/16 11/23/16 22:30 06:30 05:20 Creatine Kinase CK-MB (CK-2) 8.19 H 7.63 H Troponin I 1.060 1.650 0.892 NT-Pro-B Natriuret Pep 10/07/17 10/07/17 10/07/17 12:07 12:07 19:58 Creatine Kinase 40 38 CK-MB (CK-2) 1.50 Troponin I 0.771 NT-Pro-B Natriuret Pep 11/23/16 11/24/16 11/24/16 19:58 04:35 04:35 Creatine Kinase 34 CK-MB (CK-2) 1.44 0.95 Troponin I 0.702 0.713 NT-Pro-B Natriuret Pep Impressions: Guidance Fluoroscopy 11/08/16 00:00 IMPRESSION: SUCCESSFUL PLACEMENT OF A 5 FR DUAL LUMEN 44 CM PICC IN THE LEFT BASILIC VEIN. Interventional Vascular Procedure 11/08/16 00:00 IMPRESSION: SUCCESSFUL PLACEMENT OF A 5 FR DUAL LUMEN 44 CM PICC IN THE LEFT BASILIC VEIN. PICC Line Insertion 11/08/16 00:00 IMPRESSION: SUCCESSFUL PLACEMENT OF A 5 FR DUAL LUMEN 44 CM PICC IN THE LEFT BASILIC VEIN. Knee X-Ray 11/10/16 00:00 IMPRESSION: NEGATIVE STUDY OF THE LEFT KNEE. NO RADIOGRAPHIC EVIDENCE OF ACUTE INJURY. Lumbar Spine X-Ray 11/10/16 00:00 IMPRESSION: Possible new minimal compression fractures of L2 and L5. Generalized osteopenia. Chronic T12 compression fracture. Lumbar Spine MRI 11/13/16 00:00 IMPRESSION: No acute findings in the lumbar spine. Chest X-Ray 11/26/16 06:00 IMPRESSION: No acute infiltrates Assessment & Plan - Diagnosis (1) Acute hypercapnic respiratory failure Is this a current diagnosis for this admission?: Yes (2) Diabetes mellitus type 2 in obese Is this a current diagnosis for this admission?: Yes (3) Peripheral vascular disease Is this a current diagnosis for this admission?: Yes (4) COPD (chronic obstructive pulmonary disease) Qualifiers: COPD type: COPD with acute exacerbation Qualified Code(s): J44.1 - Chronic obstructive pulmonary disease with (acute) exacerbation Is this a current diagnosis for this admission?: Yes (5) Coronary artery disease Qualifiers: Coronary Disease-Associated Artery/Lesion type: [place] artery [place] vs. transplanted heart: [place] heart Associated angina: angina presence unspecified Qualified Code(s): I25.10 - Atherosclerotic heart disease of [place] coronary artery without angina pectoris Is this a current diagnosis for this admission?: Yes (6) Physical deconditioning Is this a current diagnosis for this admission?: Yes (7) Urinary tract infection Qualifiers: Urinary tract infection type: site unspecified Hematuria presence: without hematuria Qualified Code(s): N39.0 - Urinary tract infection, site not specified Is this a current diagnosis for this admission?: Yes (8) Enterococcus UTI Is this a current diagnosis for this admission?: Yes (9) Non-ST elevated myocardial infarction Is this a current diagnosis for this admission?: Yes (10) Hypotension Qualifiers: Hypotension type: other hypotension type Qualified Code(s): I95.89 - Other hypotension Is this a current diagnosis for this admission?: Yes (11) Acute chronic obstructive pulmonary disease with respiratory distress Is this a current diagnosis for this admission?: Yes (12) Diabetes mellitus Qualifiers: Diabetes mellitus type: type 2 Diabetes mellitus complication status: with neurologic complications Diabetes mellitus complication detail: with polyneuropathy Diabetes mellitus terminal operations supervisor insulin use: with snf use Qualified Code(s): E11.42 - Type 2 diabetes mellitus with diabetic polyneuropathy Is this a current diagnosis for this admission?: Yes - Plan Summary Plan Summary: She will be downgraded to the telemetry floor, the Solu-Medrol dose is reduced to 30 mg IV every 8
[2016-11-26] MEDS: ATORVASTATIN CALCIUM 40 MG TABLET NG SCH (21:15)
[2016-11-26] MEDS: METHYLPREDNISOLONE INJ 40 MG/1 ML SDV IV SCH (21:17)
[2016-11-26] MEDS: ONDANSETRON HCL INJ/PF 4 MG/2 ML SDV IV PRN (21:54)
[2016-11-27] MEDS: IPRATROPIUM/ALBUTEROL 0.5-2.5 MG/3 ML AMPUL NEB SCH ×4 (01:30→20:08)
[2016-11-27] MEDS: CEFTAZIDIME PENTAHYDRATE 1 GM in DEXTROSE 5%-WATER 50 ML IV SCH ×3 (02:05→17:30)
[2016-11-27] MEDS: GABAPENTIN 300 MG CAPSULE NG SCH ×4 (06:02→23:13)
[2016-11-27] MEDS: METHYLPREDNISOLONE INJ 40 MG/1 ML SDV IV SCH ×3 (06:02→21:16)
[2016-11-27 06:30] LABS: ARTERIAL BLOOD BASE EXCESS 5.2 mmol/L; ARTERIAL BLOOD O2 SATURATION 86.4 % (94-98)
[2016-11-27 06:38] LABS: HEMATOCRIT 32.5 % (36.0-47.0); HEMOGLOBIN 10.6 g/dL (12.0-15.5); HGB HCT DIFFERENCE -0.7; MEAN CORPUSCULAR HEMOGLOBIN 28.7 pg (27.0-33.4); MEAN CORPUSCULAR HGB CONC 32.4 g/dL (32.0-36.0); MEAN CORPUSCULAR VOLUME 89 fl (80-97); RED BLOOD COUNT 3.67 10^6/uL (3.72-5.28); RED CELL DISTRIBUTION WIDTH 15.2 % (11.5-14.0); WHITE BLOOD COUNT 13.7 10^3/uL (4.0-10.5)
[2016-11-27 06:47] LABS: ALANINE AMINOTRANSFERASE 35 U/L (9-52); ALBUMIN 3.1 g/dL (3.5-5.0); ALKALINE PHOSPHATASE 48 U/L (38-126); ANION GAP 9 (5-19); ASPARTATE AMINO TRANSFERASE 18 U/L (14-36); BILIRUBIN,DIRECT 0.3 mg/dL (0.0-0.4); BILIRUBIN,TOTAL 0.3 mg/dL (0.2-1.3); BLOOD UREA NITROGEN 37 mg/dL (7-20); CALCIUM 8.8 mg/dL (8.4-10.2); CARBON DIOXIDE 32 mmol/L (22-30); CHLORIDE 96 mmol/L (98-107); CREATININE RESULT 0.82 mg/dL (0.52-1.25); GLUCOSE 219 mg/dL (75-110); MAGNESIUM 2.2 mg/dL (1.6-2.3); POTASSIUM 5.8 mmol/L (3.6-5.0); SODIUM 136.6 mmol/L (137-145); TOTAL PROTEIN 5.3 g/dL (6.3-8.2)
[2016-11-27 07:08] LABS: BASOPHILS % (MANUAL) 0 % (0-2); EOSINOPHILS % (MANUAL) 0 % (0-6); LYMPHOCYTES % (MANUAL) 6 % (13-45); TOTAL CELLS COUNTED 100
[2016-11-27 07:09] LABS: POLYCHROMASIA SLIGHT; TOXIC GRANULATION SLIGHT; TOXIC VACUOLATION PRESENT
[2016-11-27 07:10] LABS: ANISOCYTOSIS SLIGHT; OVALOCYTES SLIGHT; POIKILOCYTOSIS SLIGHT
[2016-11-27] MEDS: INSULIN DETEMIR 100 UNIT/ML 3 ML PEN SUBCUT SCH ×2 (08:09→21:18)
[2016-11-27] MEDS: INSULIN REG, HUMAN 100 UNIT/ML 3 ML VIAL (PYX) SUBCUT PRN ×4 (08:13→21:27)
[2016-11-27] MEDS: SERTRALINE HCL 50 MG TABLET NG SCH (08:14)
[2016-11-27] MEDS: CLOPIDOGREL BISULFATE 75 MG TABLET NG SCH (08:15)
[2016-11-27] MEDS: ASPIRIN 81 MG TABLET, CHEWABLE NG SCH (08:15)
[2016-11-27] MEDS: RANOLAZINE 500 MG TAB.SR.12H PO SCH ×2 (08:15→21:15)
[2016-11-27] MEDS: ENOXAPARIN SODIUM INJ 40 MG/0.4 ML DISP.SYRIN SUBCUT SCH (08:16)
[2016-11-27] MEDS: LISINOPRIL 5 MG TABLET NG SCH (08:17)
[2016-11-27] MEDS: ONDANSETRON HCL INJ/PF 4 MG/2 ML SDV IV PRN ×2 (09:13→21:16)
[2016-11-27] MEDS: SULFAMETHOXAZOLE/TRIMETHOPRIM 800-160 MG/20 ML UDCUP PO SCH (09:14)
[2016-11-27] MEDS: METOPROLOL SUCCINATE 50 MG TAB.SR.24H PO SCH (09:17)
--- NOTE | 2016-11-27 10:37 | PDOC PROGRESS REPORT ---
Subjective Progress Note for:: 11/27/16 Subjective:: Awake and alert Physical Exam Vital Signs: Temp Pulse Resp BP Pulse Ox 98.6 F 80 12 142/72 H 95 11/26/16 18:00 11/27/16 02:00 11/27/16 06:00 11/27/16 05:52 11/27/16 06:00 Intake & Output 11/26/16 11/27/16 11/28/16 06:59 06:59 06:59 Intake Total 1369 2054 Output Total 1450 2250 Balance -81 -196 Weight 121.7 kg 119.1 kg General appearance: PRESENT: no acute distress, cooperative, disheveled, obese, well-developed Head exam: PRESENT: atraumatic, normocephalic Eye exam: PRESENT: conjunctiva pale, EOMI Mouth exam: PRESENT: dry mucosa, neck supple, tongue midline Neck exam: ABSENT: carotid bruit, JVD, lymphadenopathy, thyromegaly Respiratory exam: PRESENT: decreased breath sounds, prolonged expiratory phas, rhonchi, symmetrical, unlabored, wheezes. ABSENT: crackles, retraction, stridor , tachypnea Cardiovascular exam: PRESENT: RRR, +S1, +S2 Pulses: PRESENT: normal radial pulses GI/Abdominal exam: PRESENT: normal bowel sounds, soft. ABSENT: distended, guarding, mass, organolmegaly, rebound, tenderness Rectal exam: PRESENT: deferred Gentrourinary exam: PRESENT: indwelling catheter Extremities exam: PRESENT: +1 edema Neurological exam: PRESENT: alert, awake Psychiatric exam: PRESENT: normal mood Skin exam: PRESENT: dry, warm Results Laboratory Results: 11/27/16 06:07 11/27/16 06:07 11/26/16 11/26/16 11/27/16 04:48 08:30 06:07 WBC RBC Hgb Hct MCV MCH MCHC RDW Plt Count Seg Neutrophils % Lymphocytes % Monocytes % Eosinophils % Basophils % Absolute Neutrophils Absolute Lymphocytes Absolute Monocytes Absolute Eosinophils Absolute Basophils Carbonic Acid 1.51 H 1.54 H HCO3/H2CO3 Ratio 21:1 20:1 ABG pH 7.43 7.40 ABG pCO2 50.2 H 51.1 H ABG pO2 52.4 L 52.1 L ABG HCO3 32.2 H 31.0 H ABG O2 Saturation 87.4 L 86.4 L ABG Base Excess 6.7 5.2 FiO2 2L 2L Sodium Potassium Chloride Carbon Dioxide Anion Gap BUN Creatinine Est GFR ( Amer) Est GFR (Non-Af Amer) Glucose Calcium Magnesium Total Bilirubin AST ALT Alkaline Phosphatase Total Protein Albumin 11/27/16 11/27/16 06:07 06:07 WBC 13.7 H RBC 3.67 L Hgb 10.6 L Hct 32.5 L MCV 89 MCH 28.7 MCHC 32.4 RDW 15.2 H Plt Count 314 Seg Neutrophils % Not Reportable Lymphocytes % Not Reportable Monocytes % Not Reportable Eosinophils % Not Reportable Basophils % Not Reportable Absolute Neutrophils Not Reportable Absolute Lymphocytes Not Reportable Absolute Monocytes Not Reportable Absolute Eosinophils Not Reportable Absolute Basophils Not Reportable Carbonic Acid HCO3/H2CO3 Ratio ABG pH ABG pCO2 ABG pO2 ABG HCO3 ABG O2 Saturation ABG Base Excess FiO2 Sodium 136.6 L Potassium 5.8 H Chloride 96 L Carbon Dioxide 32 H Anion Gap 9 BUN 37 H Creatinine 0.82 Est GFR ( Amer) > 60 Est GFR (Non-Af Amer) > 60 Glucose 219 H Calcium 8.8 Magnesium 2.2 Total Bilirubin 0.3 AST 18 ALT 35 Alkaline Phosphatase 48 Total Protein 5.3 L Albumin 3.1 L 11/21/16 17:45 Blood Blood Culture - Final NO GROWTH IN 5 DAYS 11/21/16 14:33 Blood Blood Culture - Final NO GROWTH IN 5 DAYS 11/21/16 15:15 Blood Blood Culture - Final NO GROWTH IN 5 DAYS 11/21/16 15:21 Blood Blood Culture - Final NO GROWTH IN 5 DAYS 11/07/16 11/07/16 11/07/16 18:12 18:12 18:12 Creatine Kinase 33 CK-MB (CK-2) 1.10 Troponin I 0.018 NT-Pro-B Natriuret Pep 2110 H 11/08/16 11/08/16 11/08/16 00:35 00:35 05:54 Creatine Kinase 40 CK-MB (CK-2) 1.24 1.48 Troponin I 0.014 0.016 NT-Pro-B Natriuret Pep 11/08/16 11/20/16 11/20/16 05:54 16:50 16:50 Creatine Kinase 30 51 CK-MB (CK-2) 2.04 Troponin I < 0.012 NT-Pro-B Natriuret Pep 11/21/16 11/21/16 11/21/16 14:30 14:30 22:30 Creatine Kinase 30 81 CK-MB (CK-2) 2.10 Troponin I 0.047 NT-Pro-B Natriuret Pep 11/21/16 11/22/16 11/23/16 22:30 06:30 05:20 Creatine Kinase CK-MB (CK-2) 8.19 H 7.63 H Troponin I 1.060 1.650 0.892 NT-Pro-B Natriuret Pep 11/23/16 11/23/16 11/23/16 12:07 12:07 19:58 Creatine Kinase 40 38 CK-MB (CK-2) 1.50 Troponin I 0.771 NT-Pro-B Natriuret Pep 11/23/16 11/24/16 11/24/16 19:58 04:35 04:35 Creatine Kinase 34 CK-MB (CK-2) 1.44 0.95 Troponin I 0.702 0.713 NT-Pro-B Natriuret Pep Impressions: Guidance Fluoroscopy 11/08/16 00:00 IMPRESSION: SUCCESSFUL PLACEMENT OF A 5 FR DUAL LUMEN 44 CM PICC IN THE LEFT BASILIC VEIN. Interventional Vascular Procedure 11/08/16 00:00 IMPRESSION: SUCCESSFUL PLACEMENT OF A 5 FR DUAL LUMEN 44 CM PICC IN THE LEFT BASILIC VEIN. PICC Line Insertion 11/08/16 00:00 IMPRESSION: SUCCESSFUL PLACEMENT OF A 5 FR DUAL LUMEN 44 CM PICC IN THE LEFT BASILIC VEIN. Knee X-Ray 11/10/16 00:00 IMPRESSION: NEGATIVE STUDY OF THE LEFT KNEE. NO RADIOGRAPHIC EVIDENCE OF ACUTE INJURY. Lumbar Spine X-Ray 11/10/16 00:00 IMPRESSION: Possible new minimal compression fractures of L2 and L5. Generalized osteopenia. Chronic T12 compression fracture. Lumbar Spine MRI 11/13/16 00:00 IMPRESSION: No acute findings in the lumbar spine. Chest X-Ray 11/26/16 06:00 IMPRESSION: No acute infiltrates Assessment & Plan - Diagnosis (1) Acute chronic obstructive pulmonary disease with respiratory distress Is this a current diagnosis for this admission?: Yes Plan: 48 hours status post extubation doing well (2) Acute exacerbation of chronic obstructive pulmonary disease (COPD) Is this a current diagnosis for this admission?: Yes Plan: Continues oxygen dependent and hypercapnic (3) Diabetes mellitus Qualifiers: Diabetes mellitus type: type 2 Diabetes mellitus complication status: with neurologic complications Diabetes mellitus complication detail: with polyneuropathy Diabetes mellitus intermediate insulin use: with intermediate manager use Qualified Code(s): E11.42 - Type 2 diabetes mellitus with diabetic polyneuropathy Is this a current diagnosis for this admission?: Yes (4) Obesity Is this a current diagnosis for this admission?: Yes - Time Critical Time spent with patient: 15-24 minutes
[2016-11-27 17:23] LABS: ALANINE AMINOTRANSFERASE 33 U/L (9-52); ALBUMIN 3.1 g/dL (3.5-5.0); ALKALINE PHOSPHATASE 56 U/L (38-126); ANION GAP 9 (5-19); ASPARTATE AMINO TRANSFERASE 18 U/L (14-36); BILIRUBIN,DIRECT 0.3 mg/dL (0.0-0.4); BILIRUBIN,TOTAL 0.3 mg/dL (0.2-1.3); BLOOD UREA NITROGEN 33 mg/dL (7-20); CALCIUM 8.9 mg/dL (8.4-10.2); CARBON DIOXIDE 32 mmol/L (22-30); CHLORIDE 95 mmol/L (98-107); CREATININE RESULT 0.79 mg/dL (0.52-1.25); GLUCOSE 263 mg/dL (75-110); POTASSIUM 5.4 mmol/L (3.6-5.0); SODIUM 135.5 mmol/L (137-145); TOTAL PROTEIN 5.3 g/dL (6.3-8.2)
--- NOTE | 2016-11-27 18:06 | PDOC PROGRESS REPORT ---
Subjective Progress Note for:: 11/27/16 Subjective:: She was seen at the bedside she complained of diarrhea, yesterday she was downgraded to telemetry bed, she is in ICU bed because there is no bed on telemetry floor Physical Exam Vital Signs: Temp Pulse Resp BP Pulse Ox 98.4 F 80 12 111/53 L 96 11/27/16 11:51 11/27/16 13:44 11/27/16 16:51 11/27/16 16:51 11/27/16 16:51 Intake & Output 11/26/16 11/27/16 11/28/16 06:59 06:59 06:59 Intake Total 1369 2054 455 Output Total 1450 2250 1275 Balance -81 -196 -820 Weight 121.7 kg 119.1 kg General appearance: PRESENT: no acute distress Eye exam: PRESENT: PERRLA Respiratory exam: PRESENT: clear to auscultation rolf Cardiovascular exam: PRESENT: +S1, +S2 GI/Abdominal exam: PRESENT: soft Neurological exam: PRESENT: alert Results Laboratory Results: 11/27/16 06:07 11/27/16 16:50 11/27/16 11/27/16 11/27/16 06:07 06:07 06:07 WBC 13.7 H RBC 3.67 L Hgb 10.6 L Hct 32.5 L MCV 89 MCH 28.7 MCHC 32.4 RDW 15.2 H Plt Count 314 Seg Neutrophils % Not Reportable Lymphocytes % Not Reportable Monocytes % Not Reportable Eosinophils % Not Reportable Basophils % Not Reportable Absolute Neutrophils Not Reportable Absolute Lymphocytes Not Reportable Absolute Monocytes Not Reportable Absolute Eosinophils Not Reportable Absolute Basophils Not Reportable Carbonic Acid 1.54 H HCO3/H2CO3 Ratio 20:1 ABG pH 7.40 ABG pCO2 51.1 H ABG pO2 52.1 L ABG HCO3 31.0 H ABG O2 Saturation 86.4 L ABG Base Excess 5.2 FiO2 2L Sodium 136.6 L Potassium 5.8 H Chloride 96 L Carbon Dioxide 32 H Anion Gap 9 BUN 37 H Creatinine 0.82 Est GFR ( Amer) > 60 Est GFR (Non-Af Amer) > 60 Glucose 219 H Calcium 8.8 Magnesium 2.2 Total Bilirubin 0.3 AST 18 ALT 35 Alkaline Phosphatase 48 Total Protein 5.3 L Albumin 3.1 L 11/27/16 16:50 WBC RBC Hgb Hct MCV MCH MCHC RDW Plt Count Seg Neutrophils % Lymphocytes % Monocytes % Eosinophils % Basophils % Absolute Neutrophils Absolute Lymphocytes Absolute Monocytes Absolute Eosinophils Absolute Basophils Carbonic Acid HCO3/H2CO3 Ratio ABG pH ABG pCO2 ABG pO2 ABG HCO3 ABG O2 Saturation ABG Base Excess FiO2 Sodium 135.5 L Potassium 5.4 H Chloride 95 L Carbon Dioxide 32 H Anion Gap 9 BUN 33 H Creatinine 0.79 Est GFR ( Amer) > 60 Est GFR (Non-Af Amer) > 60 Glucose 263 H Calcium 8.9 Magnesium Total Bilirubin 0.3 AST 18 ALT 33 Alkaline Phosphatase 56 Total Protein 5.3 L Albumin 3.1 L 11/21/16 17:45 Blood Blood Culture - Final NO GROWTH IN 5 DAYS 11/21/16 14:33 Blood Blood Culture - Final NO GROWTH IN 5 DAYS 11/21/16 15:15 Blood Blood Culture - Final NO GROWTH IN 5 DAYS 11/21/16 15:21 Blood Blood Culture - Final NO GROWTH IN 5 DAYS 11/07/16 11/07/16 11/07/16 18:12 18:12 18:12 Creatine Kinase 33 CK-MB (CK-2) 1.10 Troponin I 0.018 NT-Pro-B Natriuret Pep 2110 H 11/08/16 11/08/16 11/08/16 00:35 00:35 05:54 Creatine Kinase 40 CK-MB (CK-2) 1.24 1.48 Troponin I 0.014 0.016 NT-Pro-B Natriuret Pep 11/08/16 11/20/16 11/20/16 05:54 16:50 16:50 Creatine Kinase 30 51 CK-MB (CK-2) 2.04 Troponin I < 0.012 NT-Pro-B Natriuret Pep 11/21/16 11/21/16 11/21/16 14:30 14:30 22:30 Creatine Kinase 30 81 CK-MB (CK-2) 2.10 Troponin I 0.047 NT-Pro-B Natriuret Pep 11/21/16 11/22/16 11/23/16 22:30 06:30 05:20 Creatine Kinase CK-MB (CK-2) 8.19 H 7.63 H Troponin I 1.060 1.650 0.892 NT-Pro-B Natriuret Pep 11/23/16 11/23/16 11/23/16 12:07 12:07 19:58 Creatine Kinase 40 38 CK-MB (CK-2) 1.50 Troponin I 0.771 NT-Pro-B Natriuret Pep 11/23/16 11/24/16 11/24/16 19:58 04:35 04:35 Creatine Kinase 34 CK-MB (CK-2) 1.44 0.95 Troponin I 0.702 0.713 NT-Pro-B Natriuret Pep Impressions: Guidance Fluoroscopy 11/08/16 00:00 IMPRESSION: SUCCESSFUL PLACEMENT OF A 5 FR DUAL LUMEN 44 CM PICC IN THE LEFT BASILIC VEIN. Interventional Vascular Procedure 11/08/16 00:00 IMPRESSION: SUCCESSFUL PLACEMENT OF A 5 FR DUAL LUMEN 44 CM PICC IN THE LEFT BASILIC VEIN. PICC Line Insertion 11/08/16 00:00 IMPRESSION: SUCCESSFUL PLACEMENT OF A 5 FR DUAL LUMEN 44 CM PICC IN THE LEFT BASILIC VEIN. Knee X-Ray 11/10/16 00:00 IMPRESSION: NEGATIVE STUDY OF THE LEFT KNEE. NO RADIOGRAPHIC EVIDENCE OF ACUTE INJURY. Lumbar Spine X-Ray 11/10/16 00:00 IMPRESSION: Possible new minimal compression fractures of L2 and L5. Generalized osteopenia. Chronic T12 compression fracture. Lumbar Spine MRI 11/13/16 00:00 IMPRESSION: No acute findings in the lumbar spine. Chest X-Ray 11/26/16 06:00 IMPRESSION: No acute infiltrates Assessment & Plan - Diagnosis (1) Acute hypercapnic respiratory failure Is this a current diagnosis for this admission?: Yes (2) Diabetes mellitus type 2 in obese Is this a current diagnosis for this admission?: Yes (3) Peripheral vascular disease Is this a current diagnosis for this admission?: Yes (4) COPD (chronic obstructive pulmonary disease) Qualifiers: COPD type: COPD with acute exacerbation Qualified Code(s): J44.1 - Chronic obstructive pulmonary disease with (acute) exacerbation Is this a current diagnosis for this admission?: Yes (5) Coronary artery disease Qualifiers: Coronary Disease-Associated Artery/Lesion type: [place] artery [place] vs. transplanted heart: [place] heart Associated angina: angina presence unspecified Qualified Code(s): I25.10 - Atherosclerotic heart disease of [place] coronary artery without angina pectoris Is this a current diagnosis for this admission?: Yes (6) Physical deconditioning Is this a current diagnosis for this admission?: Yes (7) Urinary tract infection Qualifiers: Urinary tract infection type: site unspecified Hematuria presence: without hematuria Qualified Code(s): N39.0 - Urinary tract infection, site not specified Is this a current diagnosis for this admission?: Yes (8) Enterococcus UTI Is this a current diagnosis for this admission?: Yes (9) Non-ST elevated myocardial infarction Is this a current diagnosis for this admission?: Yes (10) Hypotension Qualifiers: Hypotension type: other hypotension type Qualified Code(s): I95.89 - Other hypotension Is this a current diagnosis for this admission?: Yes (11) Acute chronic obstructive pulmonary disease with respiratory distress Is this a current diagnosis for this admission?: Yes (12) Diabetes mellitus Qualifiers: Diabetes mellitus type: type 2 Diabetes mellitus complication status: with neurologic complications Diabetes mellitus complication detail: with polyneuropathy Diabetes mellitus penitentiary insulin use: with penitentiary use Qualified Code(s): E11.42 - Type 2 diabetes mellitus with diabetic polyneuropathy Is this a current diagnosis for this admission?: Yes
--- NOTE | 2016-11-27 20:24 | PDOC PROGRESS REPORT ---
Subjective Progress Note for:: 11/27/16 Subjective:: Patient doing much better. She is more cheerful. Patient denies any complaints. Medications reviewed. Physical Exam Vital Signs: Temp Pulse Resp BP Pulse Ox 98.4 F 79 14 105/53 L 97 11/27/16 11:51 11/27/16 19:00 11/27/16 19:00 11/27/16 18:51 11/27/16 19:00 Intake & Output 11/26/16 11/27/16 11/28/16 06:59 06:59 06:59 Intake Total 1369 2054 1360 Output Total 1450 2250 2475 Balance -81 -196 -1115 Weight 121.7 kg 119.1 kg Exam: GENERAL: well-nourished and in no acute distress. Alert and oriented x3 HEAD: Atraumatic, normocephalic. EYES: Pupils equal round and reactive to light, extraocular movements intact, sclera anicteric, conjunctiva are normal. ENT: TMs normal, nares patent, oropharynx clear without exudates. Moist mucous membranes. No oral ulcerations or bleeding gums noted NECK: supple without lymphadenopathy. Trachea is central. No cervical or axillary lymphadenopathy noted. Carotids are 2+, JVD WNL LUNGS: Respiration seems nonlabored, no significant accessory muscle action noted. Bibasilar fine crackles noted. No wheezes rales or rhonchi noted. No significant dullness noted on percussion. CHEST: Palpation of the chest wall shows no significant chest wall tenderness. No other significant abnormalities noted. HEART: Ethel [employer] EQUIPMENT [employer], No PSH, 1/6 JOHANNA aortic area, 1/6 mendoza systolic murmur mitral area, no rubs, no gallops. ABDOMEN: Soft, no significant tenderness appreciated, normoactive bowel sounds. No guarding, no rebound. No rigidity noted . No masses appreciated. EXTREMITIES: Pedal pulses are 1-2+, no calf tenderness noted. No clubbing or cyanosis. 1+ pedal edema noted NEUROLOGICAL: Focused neurological exam showed no significant neurologic deficit. Normal speech, no focal weakness appreciated. PSYCH: Normal mood, normal affect. Judgment and insight within normal limits. SKIN: No significant ecchymosis, rash, ulcerations or signs of pruritus noted. MUSCULOSKELETAL EXAM: No significant joint swelling noted. Results Laboratory Results: 11/27/16 06:07 11/27/16 16:50 11/27/16 11/27/16 11/27/16 06:07 06:07 06:07 WBC 13.7 H RBC 3.67 L Hgb 10.6 L Hct 32.5 L MCV 89 MCH 28.7 MCHC 32.4 RDW 15.2 H Plt Count 314 Seg Neutrophils % Not Reportable Lymphocytes % Not Reportable Monocytes % Not Reportable Eosinophils % Not Reportable Basophils % Not Reportable Absolute Neutrophils Not Reportable Absolute Lymphocytes Not Reportable Absolute Monocytes Not Reportable Absolute Eosinophils Not Reportable Absolute Basophils Not Reportable Carbonic Acid 1.54 H HCO3/H2CO3 Ratio 20:1 ABG pH 7.40 ABG pCO2 51.1 H ABG pO2 52.1 L ABG HCO3 31.0 H ABG O2 Saturation 86.4 L ABG Base Excess 5.2 FiO2 2L Sodium 136.6 L Potassium 5.8 H Chloride 96 L Carbon Dioxide 32 H Anion Gap 9 BUN 37 H Creatinine 0.82 Est GFR ( Amer) > 60 Est GFR (Non-Af Amer) > 60 Glucose 219 H Calcium 8.8 Magnesium 2.2 Total Bilirubin 0.3 AST 18 ALT 35 Alkaline Phosphatase 48 Total Protein 5.3 L Albumin 3.1 L 11/27/16 16:50 WBC RBC Hgb Hct MCV MCH MCHC RDW Plt Count Seg Neutrophils % Lymphocytes % Monocytes % Eosinophils % Basophils % Absolute Neutrophils Absolute Lymphocytes Absolute Monocytes Absolute Eosinophils Absolute Basophils Carbonic Acid HCO3/H2CO3 Ratio ABG pH ABG pCO2 ABG pO2 ABG HCO3 ABG O2 Saturation ABG Base Excess FiO2 Sodium 135.5 L Potassium 5.4 H Chloride 95 L Carbon Dioxide 32 H Anion Gap 9 BUN 33 H Creatinine 0.79 Est GFR ( Amer) > 60 Est GFR (Non-Af Amer) > 60 Glucose 263 H Calcium 8.9 Magnesium Total Bilirubin 0.3 AST 18 ALT 33 Alkaline Phosphatase 56 Total Protein 5.3 L Albumin 3.1 L 11/21/16 17:45 Blood Blood Culture - Final NO GROWTH IN 5 DAYS 11/07/16 11/07/16 11/07/16 18:12 18:12 18:12 Creatine Kinase 33 CK-MB (CK-2) 1.10 Troponin I 0.018 NT-Pro-B Natriuret Pep 2110 H 11/08/16 11/08/16 11/08/16 00:35 00:35 05:54 Creatine Kinase 40 CK-MB (CK-2) 1.24 1.48 Troponin I 0.014 0.016 NT-Pro-B Natriuret Pep 11/08/16 11/20/16 11/20/16 05:54 16:50 16:50 Creatine Kinase 30 51 CK-MB (CK-2) 2.04 Troponin I < 0.012 NT-Pro-B Natriuret Pep 11/21/16 11/21/16 11/21/16 14:30 14:30 22:30 Creatine Kinase 30 81 CK-MB (CK-2) 2.10 Troponin I 0.047 NT-Pro-B Natriuret Pep 11/21/16 11/22/16 11/23/16 22:30 06:30 05:20 Creatine Kinase CK-MB (CK-2) 8.19 H 7.63 H Troponin I 1.060 1.650 0.892 NT-Pro-B Natriuret Pep 11/23/16 11/23/16 11/23/16 12:07 12:07 19:58 Creatine Kinase 40 38 CK-MB (CK-2) 1.50 Troponin I 0.771 NT-Pro-B Natriuret Pep 11/23/16 11/24/16 11/24/16 19:58 04:35 04:35 Creatine Kinase 34 CK-MB (CK-2) 1.44 0.95 Troponin I 0.702 0.713 NT-Pro-B Natriuret Pep Impressions: Guidance Fluoroscopy 11/08/16 00:00 IMPRESSION: SUCCESSFUL PLACEMENT OF A 5 FR DUAL LUMEN 44 CM PICC IN THE LEFT BASILIC VEIN. Interventional Vascular Procedure 11/08/16 00:00 IMPRESSION: SUCCESSFUL PLACEMENT OF A 5 FR DUAL LUMEN 44 CM PICC IN THE LEFT BASILIC VEIN. PICC Line Insertion 11/08/16 00:00 IMPRESSION: SUCCESSFUL PLACEMENT OF A 5 FR DUAL LUMEN 44 CM PICC IN THE LEFT BASILIC VEIN. Knee X-Ray 11/10/16 00:00 IMPRESSION: NEGATIVE STUDY OF THE LEFT KNEE. NO RADIOGRAPHIC EVIDENCE OF ACUTE INJURY. Lumbar Spine X-Ray 11/10/16 00:00 IMPRESSION: Possible new minimal compression fractures of L2 and L5. Generalized osteopenia. Chronic T12 compression fracture. Lumbar Spine MRI 11/13/16 00:00 IMPRESSION: No acute findings in the lumbar spine. Chest X-Ray 11/26/16 06:00 IMPRESSION: No acute infiltrates Assessment & Plan - Diagnosis (1) Acute chronic obstructive pulmonary disease with respiratory distress Is this a current diagnosis for this admission?: Yes (2) Acute hypercapnic respiratory failure Is this a current diagnosis for this admission?: Yes (3) Elevated troponin Is this a current diagnosis for this admission?: Yes (4) Non-ST elevated myocardial infarction Is this a current diagnosis for this admission?: Yes (5) Coronary artery disease Qualifiers: Coronary Disease-Associated Artery/Lesion type: [place] artery [place] vs. transplanted heart: [place] heart Associated angina: without angina Qualified Code(s): I25.10 - Atherosclerotic heart disease of [place] coronary artery without angina pectoris Is this a current diagnosis for this admission?: Yes (6) Cardiomyopathy Qualifiers: Cardiomyopathy type: unspecified Qualified Code(s): I42.9 - Cardiomyopathy , unspecified Is this a current diagnosis for this admission?: Yes - Notes Notes: Patient seemingly stable. Her respiration been comfortable. She is maintaining good oxygenation. Patient denies any shortness of breath or any active chest pain. Her medical management is being currently optimized. In the absence of ongoing angina, do not plan on doing any ischemia workup at this point. Patient remains a DNR. - Time Time with patient: 15-25 minutes - CODE STATUS : was discussed, patient remains DO NOT RESUSCITATE. Surrogate decision-maker unchanged. Multiple medical problems were addressed. More than 50% of the time spent coordinating care, discussing management plans with involved caregivers. Management plans discussed with involved personnels. Medical decision making was of moderate to high complexity, patient's has multiple comorbidities. Medications reviewed and adjusted accordingly: Yes
[2016-11-27] MEDS: TRAMADOL HCL 50 MG TABLET NG PRN (20:55)
[2016-11-27] MEDS: LOPERAMIDE HCL 2 MG CAPSULE PO PRN (20:56)
[2016-11-27] MEDS: ATORVASTATIN CALCIUM 40 MG TABLET NG SCH (21:15)
[2016-11-28] MEDS: CEFTAZIDIME PENTAHYDRATE 1 GM in DEXTROSE 5%-WATER 50 ML IV SCH ×3 (01:55→18:17)
[2016-11-28] MEDS: IPRATROPIUM/ALBUTEROL 0.5-2.5 MG/3 ML AMPUL NEB SCH ×4 (02:24→20:09)
[2016-11-28] MEDS: GABAPENTIN 300 MG CAPSULE NG SCH ×4 (05:42→23:35)
[2016-11-28] MEDS: METHYLPREDNISOLONE INJ 40 MG/1 ML SDV IV SCH ×2 (05:42→14:01)
[2016-11-28 06:11] LABS: ARTERIAL BLOOD BASE EXCESS 7.1 mmol/L; ARTERIAL BLOOD O2 SATURATION 97.9 % (94-98)
[2016-11-28 06:36] LABS: HEMATOCRIT 34.5 % (36.0-47.0); HGB HCT DIFFERENCE -1.5; MEAN CORPUSCULAR HEMOGLOBIN 28.4 pg (27.0-33.4); MEAN CORPUSCULAR VOLUME 89 fl (80-97); RED BLOOD COUNT 3.89 10^6/uL (3.72-5.28); RED CELL DISTRIBUTION WIDTH 14.9 % (11.5-14.0); WHITE BLOOD COUNT 15.8 10^3/uL (4.0-10.5)
[2016-11-28 06:42] LABS: ANION GAP 9 (5-19); BLOOD UREA NITROGEN 27 mg/dL (7-20); CALCIUM 9.1 mg/dL (8.4-10.2); CARBON DIOXIDE 33 mmol/L (22-30); CHLORIDE 96 mmol/L (98-107); CREATININE RESULT 0.75 mg/dL (0.52-1.25); GLUCOSE 107 mg/dL (75-110); MAGNESIUM 1.9 mg/dL (1.6-2.3); POTASSIUM 5.3 mmol/L (3.6-5.0); SODIUM 138.3 mmol/L (137-145)
[2016-11-28 07:17] LABS: BAND NEUTROPHILS % (MANUAL) 1 % (3-5); BASOPHILS % (MANUAL) 0 % (0-2); EOSINOPHILS % (MANUAL) 0 % (0-6); LYMPHOCYTES % (MANUAL) 9 % (13-45); TOTAL CELLS COUNTED 100
[2016-11-28 07:18] LABS: ANISOCYTOSIS SLIGHT; OVALOCYTES 1+; POIKILOCYTOSIS 1+; POLYCHROMASIA SLIGHT
--- NOTE | 2016-11-28 10:27 | RADIOLOGY REPORT (SQ) ---
EXAM DESCRIPTION: CHEST SINGLE VIEW COMPLETED DATE/TIME: 11/28/2016 10:18 am REASON FOR STUDY: resp failure COMPARISON: AP chest 11/26/2016, 11/25/2016, 11/24/2016 EXAM PARAMETERS: NUMBER OF VIEWS: One view. TECHNIQUE: Single frontal radiographic view of the chest acquired. RADIATION DOSE: NA LIMITATIONS: None. FINDINGS: LUNGS AND PLEURA: No opacities, masses or pneumothorax. No pleural effusion. MEDIASTINUM AND HILAR STRUCTURES: No masses. Contour normal. HEART AND VASCULAR STRUCTURES: Stable cardiomegaly BONES: No acute findings. HARDWARE: Left-sided PICC catheter tip superior vena cava OTHER: No other significant finding. IMPRESSION: Stable cardiomegaly. No acute infiltrates TECHNICAL DOCUMENTATION: JOB ID: [id number]
[2016-11-28] MEDS: CLOPIDOGREL BISULFATE 75 MG TABLET NG SCH (10:31)
[2016-11-28] MEDS: LISINOPRIL 5 MG TABLET NG SCH (10:31)
[2016-11-28] MEDS: METOPROLOL SUCCINATE 50 MG TAB.SR.24H PO SCH (10:32)
[2016-11-28] MEDS: ASPIRIN 81 MG TABLET, CHEWABLE NG SCH (10:32)
[2016-11-28] MEDS: SERTRALINE HCL 50 MG TABLET NG SCH (10:34)
[2016-11-28] MEDS: INSULIN DETEMIR 100 UNIT/ML 3 ML PEN SUBCUT SCH ×2 (10:35→22:31)
[2016-11-28] MEDS: RANOLAZINE 500 MG TAB.SR.12H PO SCH ×2 (10:36→22:31)
[2016-11-28] MEDS ORDERED: INFLUENZA ADLT QUAD (36MOS+) 2017-18 VAC 0.5 ML SYR IM PRN (10:57)
--- NOTE | 2016-11-28 11:11 | PDOC PROGRESS REPORT ---
Subjective Progress Note for:: 11/28/16 Subjective:: Awake alert currently without complaint Physical Exam Vital Signs: Temp Pulse Resp BP Pulse Ox 98.0 F 72 18 118/59 L 96 11/28/16 02:58 11/28/16 02:58 11/28/16 03:03 11/28/16 02:58 11/28/16 03:03 Intake & Output 11/27/16 11/28/16 11/29/16 06:59 06:59 06:59 Intake Total 2053 1610 Output Total 2254 5895 Balance -196 -2265 Weight 119.1 kg 114.6 kg General appearance: PRESENT: no acute distress, cooperative, disheveled, obese, well-developed Head exam: PRESENT: atraumatic, normocephalic Eye exam: PRESENT: conjunctiva pale, EOMI Mouth exam: PRESENT: dry mucosa, neck supple, tongue midline Neck exam: ABSENT: carotid bruit, JVD, lymphadenopathy, thyromegaly Respiratory exam: PRESENT: decreased breath sounds, prolonged expiratory phas, symmetrical, unlabored. ABSENT: crackles, rales, retraction, rhonchi, stridor, tachypnea, wheezes Cardiovascular exam: PRESENT: RRR, +S1, +S2 Pulses: PRESENT: normal radial pulses GI/Abdominal exam: PRESENT: normal bowel sounds, soft. ABSENT: distended, guarding, mass, organolmegaly, rebound, tenderness Rectal exam: PRESENT: deferred Extremities exam: PRESENT: +1 edema Neurological exam: PRESENT: awake Skin exam: PRESENT: dry, warm Results Laboratory Results: 11/28/16 05:00 11/28/16 05:00 11/27/16 11/28/16 11/28/16 16:50 05:00 05:00 WBC 15.8 H RBC 3.89 Hgb 11.0 L Hct 34.5 L MCV 89 MCH 28.4 MCHC 32.0 RDW 14.9 H Plt Count 344 Seg Neutrophils % Not Reportable Lymphocytes % Not Reportable Monocytes % Not Reportable Eosinophils % Not Reportable Basophils % Not Reportable Absolute Neutrophils Not Reportable Absolute Lymphocytes Not Reportable Absolute Monocytes Not Reportable Absolute Eosinophils Not Reportable Absolute Basophils Not Reportable Carbonic Acid HCO3/H2CO3 Ratio ABG pH ABG pCO2 ABG pO2 ABG HCO3 ABG O2 Saturation ABG Base Excess FiO2 Sodium 135.5 L 138.3 Potassium 5.4 H 5.3 H Chloride 95 L 96 L Carbon Dioxide 32 H 33 H Anion Gap 9 9 BUN 33 H 27 H Creatinine 0.79 0.75 Est GFR ( Amer) > 60 > 60 Est GFR (Non-Af Amer) > 60 > 60 Glucose 263 H 107 Calcium 8.9 9.1 Magnesium 1.9 Total Bilirubin 0.3 AST 18 ALT 33 Alkaline Phosphatase 56 Total Protein 5.3 L Albumin 3.1 L 11/28/16 05:14 WBC RBC Hgb Hct MCV MCH MCHC RDW Plt Count Seg Neutrophils % Lymphocytes % Monocytes % Eosinophils % Basophils % Absolute Neutrophils Absolute Lymphocytes Absolute Monocytes Absolute Eosinophils Absolute Basophils Carbonic Acid 1.55 H HCO3/H2CO3 Ratio 21:1 ABG pH 7.42 ABG pCO2 51.4 H ABG pO2 105.3 H ABG HCO3 32.9 H ABG O2 Saturation 97.9 ABG Base Excess 7.1 FiO2 28% Sodium Potassium Chloride Carbon Dioxide Anion Gap BUN Creatinine Est GFR ( Amer) Est GFR (Non-Af Amer) Glucose Calcium Magnesium Total Bilirubin AST ALT Alkaline Phosphatase Total Protein Albumin 11/07/16 11/07/16 11/07/16 18:12 18:12 18:12 Creatine Kinase 33 CK-MB (CK-2) 1.10 Troponin I 0.018 NT-Pro-B Natriuret Pep 2110 H 11/08/16 11/08/16 11/08/16 00:35 00:35 05:54 Creatine Kinase 40 CK-MB (CK-2) 1.24 1.48 Troponin I 0.014 0.016 NT-Pro-B Natriuret Pep 11/08/16 11/20/16 11/20/16 05:54 16:50 16:50 Creatine Kinase 30 51 CK-MB (CK-2) 2.04 Troponin I < 0.012 NT-Pro-B Natriuret Pep 11/21/16 11/21/16 11/21/16 14:30 14:30 22:30 Creatine Kinase 30 81 CK-MB (CK-2) 2.10 Troponin I 0.047 NT-Pro-B Natriuret Pep 11/21/16 11/22/16 11/23/16 22:30 06:30 05:20 Creatine Kinase CK-MB (CK-2) 8.19 H 7.63 H Troponin I 1.060 1.650 0.892 NT-Pro-B Natriuret Pep 11/23/16 11/23/16 11/23/16 12:07 12:07 19:58 Creatine Kinase 40 38 CK-MB (CK-2) 1.50 Troponin I 0.771 NT-Pro-B Natriuret Pep 11/23/16 11/24/16 11/24/16 19:58 04:35 04:35 Creatine Kinase 34 CK-MB (CK-2) 1.44 0.95 Troponin I 0.702 0.713 NT-Pro-B Natriuret Pep Impressions: Guidance Fluoroscopy 11/08/16 00:00 IMPRESSION: SUCCESSFUL PLACEMENT OF A 5 FR DUAL LUMEN 44 CM PICC IN THE LEFT BASILIC VEIN. Interventional Vascular Procedure 11/08/16 00:00 IMPRESSION: SUCCESSFUL PLACEMENT OF A 5 FR DUAL LUMEN 44 CM PICC IN THE LEFT BASILIC VEIN. PICC Line Insertion 11/08/16 00:00 IMPRESSION: SUCCESSFUL PLACEMENT OF A 5 FR DUAL LUMEN 44 CM PICC IN THE LEFT BASILIC VEIN. Knee X-Ray 11/10/16 00:00 IMPRESSION: NEGATIVE STUDY OF THE LEFT KNEE. NO RADIOGRAPHIC EVIDENCE OF ACUTE INJURY. Lumbar Spine X-Ray 11/10/16 00:00 IMPRESSION: Possible new minimal compression fractures of L2 and L5. Generalized osteopenia. Chronic T12 compression fracture. Lumbar Spine MRI 11/13/16 00:00 IMPRESSION: No acute findings in the lumbar spine. Chest X-Ray 11/26/16 06:00 IMPRESSION: No acute infiltrates Assessment & Plan - Diagnosis (1) Acute chronic obstructive pulmonary disease with respiratory distress Is this a current diagnosis for this admission?: No (2) Acute exacerbation of chronic obstructive pulmonary disease (COPD) Is this a current diagnosis for this admission?: Yes Plan: Labs- All tests 24 hr 11/28/16 05:14 ABG pH 7.42 ABG pCO2 51.4 H ABG pO2 105.3 H ABG O2 Saturation 97.9 FiO2 28% ABG on room air in the morning (3) Diabetes mellitus Qualifiers: Diabetes mellitus type: type 2 Diabetes mellitus complication status: with neurologic complications Diabetes mellitus complication detail: with polyneuropathy Diabetes mellitus vermin exterminator insulin use: with vermin exterminator use Qualified Code(s): E11.42 - Type 2 diabetes mellitus with diabetic polyneuropathy Is this a current diagnosis for this admission?: Yes (4) Obesity Is this a current diagnosis for this admission?: Yes
[2016-11-28] MEDS: ONDANSETRON HCL INJ/PF 4 MG/2 ML SDV IV PRN (11:44)
[2016-11-28] MEDS: TRAMADOL HCL 50 MG TABLET NG PRN (11:44)
[2016-11-28] MEDS: INSULIN REG, HUMAN 100 UNIT/ML 3 ML VIAL (PYX) SUBCUT PRN ×3 (14:01→22:31)
--- NOTE | 2016-11-28 19:48 | PDOC PROGRESS REPORT ---
Subjective Progress Note for:: 11/28/16 Subjective:: Patient doing much better. She is more cheerful. Patient denies any complaints. Medications reviewed. Physical Exam Vital Signs: Temp Pulse Resp BP Pulse Ox 98.2 F 69 16 122/51 L 94 11/28/16 15:19 11/28/16 15:19 11/28/16 15:19 11/28/16 15:19 11/28/16 15:19 Intake & Output 11/27/16 11/28/16 11/29/16 06:59 06:59 06:59 Intake Total 2054 1610 748 Output Total 2250 3875 Balance -196 -2265 748 Weight 119.1 kg 114.6 kg Exam: GENERAL: well-nourished and in no acute distress. Alert and oriented x3 HEAD: Atraumatic, normocephalic. EYES: Pupils equal round and reactive to light, extraocular movements intact, sclera anicteric, conjunctiva are normal. ENT: TMs normal, nares patent, oropharynx clear without exudates. Moist mucous membranes. No oral ulcerations or bleeding gums noted NECK: supple without lymphadenopathy. Trachea is central. No cervical or axillary lymphadenopathy noted. Carotids are 2+, JVD WNL LUNGS: Respiration seems nonlabored, no significant accessory muscle action noted. Bibasilar fine crackles noted. No wheezes rales or rhonchi noted. No significant dullness noted on percussion. CHEST: Palpation of the chest wall shows no significant chest wall tenderness. No other significant abnormalities noted. HEART: Mina [employer], No PSH, 1/6 JOHANNA aortic area, 1/6 mendoza systolic murmur mitral area, no rubs, no gallops. ABDOMEN: Soft, no significant tenderness appreciated, normoactive bowel sounds. No guarding, no rebound. No rigidity noted . No masses appreciated. EXTREMITIES: Pedal pulses are 1-2+, no calf tenderness noted. No clubbing or cyanosis. 1+ pedal edema noted NEUROLOGICAL: Focused neurological exam showed no significant neurologic deficit. Normal speech, no focal weakness appreciated. PSYCH: Normal mood, normal affect. Judgment and insight within normal limits. SKIN: No significant ecchymosis, rash, ulcerations or signs of pruritus noted. MUSCULOSKELETAL EXAM: No significant joint swelling noted. Results Laboratory Results: 11/28/16 05:00 11/28/16 05:00 11/28/16 11/28/16 11/28/16 05:00 05:00 05:14 WBC 15.8 H RBC 3.89 Hgb 11.0 L Hct 34.5 L MCV 89 MCH 28.4 MCHC 32.0 RDW 14.9 H Plt Count 344 Seg Neutrophils % Not Reportable Lymphocytes % Not Reportable Monocytes % Not Reportable Eosinophils % Not Reportable Basophils % Not Reportable Absolute Neutrophils Not Reportable Absolute Lymphocytes Not Reportable Absolute Monocytes Not Reportable Absolute Eosinophils Not Reportable Absolute Basophils Not Reportable Carbonic Acid 1.55 H HCO3/H2CO3 Ratio 21:1 ABG pH 7.42 ABG pCO2 51.4 H ABG pO2 105.3 H ABG HCO3 32.9 H ABG O2 Saturation 97.9 ABG Base Excess 7.1 FiO2 28% Sodium 138.3 Potassium 5.3 H Chloride 96 L Carbon Dioxide 33 H Anion Gap 9 BUN 27 H Creatinine 0.75 Est GFR ( Amer) > 60 Est GFR (Non-Af Amer) > 60 Glucose 107 Calcium 9.1 Magnesium 1.9 11/07/16 11/07/16 11/07/16 18:12 18:12 18:12 Creatine Kinase 33 CK-MB (CK-2) 1.10 Troponin I 0.018 NT-Pro-B Natriuret Pep 2110 H 11/08/16 11/08/16 11/08/16 00:35 00:35 05:54 Creatine Kinase 40 CK-MB (CK-2) 1.24 1.48 Troponin I 0.014 0.016 NT-Pro-B Natriuret Pep 11/08/16 11/20/16 11/20/16 05:54 16:50 16:50 Creatine Kinase 30 51 CK-MB (CK-2) 2.04 Troponin I < 0.012 NT-Pro-B Natriuret Pep 11/21/16 11/21/16 11/21/16 14:30 14:30 22:30 Creatine Kinase 30 81 CK-MB (CK-2) 2.10 Troponin I 0.047 NT-Pro-B Natriuret Pep 11/21/16 11/22/16 11/23/16 22:30 06:30 05:20 Creatine Kinase CK-MB (CK-2) 8.19 H 7.63 H Troponin I 1.060 1.650 0.892 NT-Pro-B Natriuret Pep 11/23/16 11/23/16 11/23/16 12:07 12:07 19:58 Creatine Kinase 40 38 CK-MB (CK-2) 1.50 Troponin I 0.771 NT-Pro-B Natriuret Pep 11/23/16 11/24/16 11/24/16 19:58 04:35 04:35 Creatine Kinase 34 CK-MB (CK-2) 1.44 0.95 Troponin I 0.702 0.713 NT-Pro-B Natriuret Pep EKG Comments: Telemetry strips reviewed shows patient maintaining sinus rhythm. Mild intermittent tachycardia noted. Impressions: Guidance Fluoroscopy 11/08/16 00:00 IMPRESSION: SUCCESSFUL PLACEMENT OF A 5 FR DUAL LUMEN 44 CM PICC IN THE LEFT BASILIC VEIN. Interventional Vascular Procedure 11/08/16 00:00 IMPRESSION: SUCCESSFUL PLACEMENT OF A 5 FR DUAL LUMEN 44 CM PICC IN THE LEFT BASILIC VEIN. PICC Line Insertion 11/08/16 00:00 IMPRESSION: SUCCESSFUL PLACEMENT OF A 5 FR DUAL LUMEN 44 CM PICC IN THE LEFT BASILIC VEIN. Knee X-Ray 11/10/16 00:00 IMPRESSION: NEGATIVE STUDY OF THE LEFT KNEE. NO RADIOGRAPHIC EVIDENCE OF ACUTE INJURY. Lumbar Spine X-Ray 11/10/16 00:00 IMPRESSION: Possible new minimal compression fractures of L2 and L5. Generalized osteopenia. Chronic T12 compression fracture. Lumbar Spine MRI 11/13/16 00:00 IMPRESSION: No acute findings in the lumbar spine. Chest X-Ray 11/28/16 06:00 IMPRESSION: Stable cardiomegaly. No acute infiltrates Assessment & Plan - Diagnosis (1) Acute chronic obstructive pulmonary disease with respiratory distress Is this a current diagnosis for this admission?: No (2) Acute hypercapnic respiratory failure Is this a current diagnosis for this admission?: Yes (3) Elevated troponin Is this a current diagnosis for this admission?: Yes (4) Non-ST elevated myocardial infarction Is this a current diagnosis for this admission?: Yes (5) Coronary artery disease Qualifiers: Coronary Disease-Associated Artery/Lesion type: [place] artery [place] vs. transplanted heart: [place] heart Associated angina: without angina Qualified Code(s): I25.10 - Atherosclerotic heart disease of [place] coronary artery without angina pectoris Is this a current diagnosis for this admission?: Yes (6) Cardiomyopathy Qualifiers: Cardiomyopathy type: unspecified Qualified Code(s): I42.9 - Cardiomyopathy , unspecified Is this a current diagnosis for this admission?: Yes - Notes Notes: Chest x-ray reviewed. It shows borderline to mild cardiomegaly. No infiltrate or CHF noted. Patient seems to have made significant progress over time. Patient noted to be maintaining good ventilation and respirations. Patient without any chest discomfort. Patient's congestive heart failure seems compensated. At this point patient will benefit from rehab which should include regular walking program and gentle physical therapy. Will be happy to follow patient in the office. Overall prognosis is guarded due to multiple ongoing medical problems and general debility. Medications reviewed. Patient seems to be on a stable and adequate regimen. Further optimization can be performed gradually and also has an outpatient. Patient remains a DNR. Chest x-ray reviewed. EKG rhythm strips were reviewed. - Time Time with patient: 15-25 minutes Medications reviewed and adjusted accordingly: Yes
--- NOTE | 2016-11-28 21:01 | PDOC PROGRESS REPORT ---
Subjective Progress Note for:: 11/28/16 Subjective:: She was seen by the bedside, she continues to complain of profuse diarrhea, the stool study was negative for Clostridium difficile toxin the diarrhea is most likely from the antibiotic. Bactrim antibiotic was discontinued yesterday she is still presently on intravenous ceftazidime this will also be discontinued today. She is still complaining of dysuria though she has a Kaur catheter in place, the catheter be discontinued as well. Physical Exam Vital Signs: Temp Pulse Resp BP Pulse Ox 98.2 F 78 18 122/51 L 94 11/28/16 15:19 11/28/16 20:10 11/28/16 20:10 11/28/16 15:19 11/28/16 15:19 Intake & Output 11/27/16 11/28/16 11/29/16 06:59 06:59 06:59 Intake Total 2054 1610 948 Output Total 2250 3875 Balance -196 -2265 948 Weight 119.1 kg 114.6 kg General appearance: PRESENT: no acute distress Eye exam: PRESENT: PERRLA Respiratory exam: PRESENT: clear to auscultation rolf Cardiovascular exam: PRESENT: +S1, +S2 GI/Abdominal exam: PRESENT: soft Neurological exam: PRESENT: CN II-XII grossly intact Results Laboratory Results: 11/28/16 05:00 11/28/16 05:00 11/28/16 11/28/16 11/28/16 05:00 05:00 05:14 WBC 15.8 H RBC 3.89 Hgb 11.0 L Hct 34.5 L MCV 89 MCH 28.4 MCHC 32.0 RDW 14.9 H Plt Count 344 Seg Neutrophils % Not Reportable Lymphocytes % Not Reportable Monocytes % Not Reportable Eosinophils % Not Reportable Basophils % Not Reportable Absolute Neutrophils Not Reportable Absolute Lymphocytes Not Reportable Absolute Monocytes Not Reportable Absolute Eosinophils Not Reportable Absolute Basophils Not Reportable Carbonic Acid 1.55 H HCO3/H2CO3 Ratio 21:1 ABG pH 7.42 ABG pCO2 51.4 H ABG pO2 105.3 H ABG HCO3 32.9 H ABG O2 Saturation 97.9 ABG Base Excess 7.1 FiO2 28% Sodium 138.3 Potassium 5.3 H Chloride 96 L Carbon Dioxide 33 H Anion Gap 9 BUN 27 H Creatinine 0.75 Est GFR ( Amer) > 60 Est GFR (Non-Af Amer) > 60 Glucose 107 Calcium 9.1 Magnesium 1.9 11/07/16 11/07/16 11/07/16 18:12 18:12 18:12 Creatine Kinase 33 CK-MB (CK-2) 1.10 Troponin I 0.018 NT-Pro-B Natriuret Pep 2110 H 11/08/16 11/08/16 11/08/16 00:35 00:35 05:54 Creatine Kinase 40 CK-MB (CK-2) 1.24 1.48 Troponin I 0.014 0.016 NT-Pro-B Natriuret Pep 11/08/16 11/20/16 11/20/16 05:54 16:50 16:50 Creatine Kinase 30 51 CK-MB (CK-2) 2.04 Troponin I < 0.012 NT-Pro-B Natriuret Pep 11/21/16 11/21/16 11/21/16 14:30 14:30 22:30 Creatine Kinase 30 81 CK-MB (CK-2) 2.10 Troponin I 0.047 NT-Pro-B Natriuret Pep 11/21/16 11/22/16 11/23/16 22:30 06:30 05:20 Creatine Kinase CK-MB (CK-2) 8.19 H 7.63 H Troponin I 1.060 1.650 0.892 NT-Pro-B Natriuret Pep 11/23/16 11/23/16 11/23/16 12:07 12:07 19:58 Creatine Kinase 40 38 CK-MB (CK-2) 1.50 Troponin I 0.771 NT-Pro-B Natriuret Pep 11/23/16 11/24/16 11/24/16 19:58 04:35 04:35 Creatine Kinase 34 CK-MB (CK-2) 1.44 0.95 Troponin I 0.702 0.713 NT-Pro-B Natriuret Pep Impressions: Guidance Fluoroscopy 11/08/16 00:00 IMPRESSION: SUCCESSFUL PLACEMENT OF A 5 FR DUAL LUMEN 44 CM PICC IN THE LEFT BASILIC VEIN. Interventional Vascular Procedure 11/08/16 00:00 IMPRESSION: SUCCESSFUL PLACEMENT OF A 5 FR DUAL LUMEN 44 CM PICC IN THE LEFT BASILIC VEIN. PICC Line Insertion 11/08/16 00:00 IMPRESSION: SUCCESSFUL PLACEMENT OF A 5 FR DUAL LUMEN 44 CM PICC IN THE LEFT BASILIC VEIN. Knee X-Ray 11/10/16 00:00 IMPRESSION: NEGATIVE STUDY OF THE LEFT KNEE. NO RADIOGRAPHIC EVIDENCE OF ACUTE INJURY. Lumbar Spine X-Ray 11/10/16 00:00 IMPRESSION: Possible new minimal compression fractures of L2 and L5. Generalized osteopenia. Chronic T12 compression fracture. Lumbar Spine MRI 11/13/16 00:00 IMPRESSION: No acute findings in the lumbar spine. Chest X-Ray 11/28/16 06:00 IMPRESSION: Stable cardiomegaly. No acute infiltrates Assessment & Plan - Diagnosis (1) Acute hypercapnic respiratory failure Is this a current diagnosis for this admission?: Yes (2) Diabetes mellitus type 2 in obese Is this a current diagnosis for this admission?: Yes (3) Peripheral vascular disease Is this a current diagnosis for this admission?: Yes (4) COPD (chronic obstructive pulmonary disease) Qualifiers: COPD type: COPD with acute exacerbation Qualified Code(s): J44.1 - Chronic obstructive pulmonary disease with (acute) exacerbation Is this a current diagnosis for this admission?: Yes (5) Coronary artery disease Qualifiers: Coronary Disease-Associated Artery/Lesion type: [place] artery [place] vs. transplanted heart: [place] heart Associated angina: angina presence unspecified Qualified Code(s): I25.10 - Atherosclerotic heart disease of [place] coronary artery without angina pectoris Is this a current diagnosis for this admission?: Yes (6) Physical deconditioning Is this a current diagnosis for this admission?: Yes (7) Urinary tract infection Qualifiers: Urinary tract infection type: site unspecified Hematuria presence: without hematuria Qualified Code(s): N39.0 - Urinary tract infection, site not specified Is this a current diagnosis for this admission?: Yes (8) Enterococcus UTI Is this a current diagnosis for this admission?: Yes (9) Non-ST elevated myocardial infarction Is this a current diagnosis for this admission?: Yes (10) Hypotension Qualifiers: Hypotension type: other hypotension type Qualified Code(s): I95.89 - Other hypotension Is this a current diagnosis for this admission?: Yes (11) Acute chronic obstructive pulmonary disease with respiratory distress Is this a current diagnosis for this admission?: No (12) Diabetes mellitus Qualifiers: Diabetes mellitus type: type 2 Diabetes mellitus complication status: with neurologic complications Diabetes mellitus complication detail: with polyneuropathy Diabetes mellitus long goods drier insulin use: with detention use Qualified Code(s): E11.42 - Type 2 diabetes mellitus with diabetic polyneuropathy Is this a current diagnosis for this admission?: Yes - Plan Summary Plan Summary: Discontinue intravenous ceftazidime, discontinued Kaur catheter
[2016-11-28] MEDS: ATORVASTATIN CALCIUM 40 MG TABLET NG SCH (22:31)
[2016-11-29] MEDS: IPRATROPIUM/ALBUTEROL 0.5-2.5 MG/3 ML AMPUL NEB SCH ×4 (02:10→20:06)
[2016-11-29] MEDS: GABAPENTIN 300 MG CAPSULE NG SCH ×4 (05:41→23:16)
[2016-11-29 06:19] LABS: ARTERIAL BLOOD BASE EXCESS 6.6 mmol/L; ARTERIAL BLOOD O2 SATURATION 96.6 % (94-98)
[2016-11-29 06:20] LABS: HEMATOCRIT 33.2 % (36.0-47.0); HEMOGLOBIN 10.8 g/dL (12.0-15.5); HGB HCT DIFFERENCE -0.8; MEAN CORPUSCULAR HEMOGLOBIN 28.7 pg (27.0-33.4); MEAN CORPUSCULAR HGB CONC 32.5 g/dL (32.0-36.0); MEAN CORPUSCULAR VOLUME 89 fl (80-97); RED BLOOD COUNT 3.75 10^6/uL (3.72-5.28); RED CELL DISTRIBUTION WIDTH 14.9 % (11.5-14.0)
[2016-11-29 06:39] LABS: ANION GAP 5 (5-19); BAND NEUTROPHILS % (MANUAL) 2 % (3-5); BASOPHILS % (MANUAL) 0 % (0-2); BLOOD UREA NITROGEN 19 mg/dL (7-20); CARBON DIOXIDE 22 mmol/L (22-30); CHLORIDE 113 mmol/L (98-107); CREATININE RESULT 0.45 mg/dL (0.52-1.25); EOSINOPHILS % (MANUAL) 0 % (0-6); GLUCOSE 135 mg/dL (75-110); LYMPHOCYTES % (MANUAL) 15 % (13-45); NUCLEATED RED BLOOD CELLS 1 /100 WBC (0); POTASSIUM 3.1 mmol/L (3.6-5.0); SODIUM 139.9 mmol/L (137-145); TOTAL CELLS COUNTED 100
[2016-11-29 06:42] LABS: ANISOCYTOSIS SLIGHT; OVALOCYTES SLIGHT; POIKILOCYTOSIS SLIGHT
[2016-11-29 06:48] LABS: CALCIUM 6.1 mg/dL (8.4-10.2)
[2016-11-29] MEDS: ASPIRIN 81 MG TABLET, CHEWABLE NG SCH (10:30)
[2016-11-29] MEDS: SERTRALINE HCL 50 MG TABLET NG SCH (10:45)
[2016-11-29] MEDS: METOPROLOL SUCCINATE 50 MG TAB.SR.24H PO SCH (10:45)
[2016-11-29] MEDS: CLOPIDOGREL BISULFATE 75 MG TABLET NG SCH (10:45)
[2016-11-29] MEDS: RANOLAZINE 500 MG TAB.SR.12H PO SCH ×2 (10:46→22:28)
[2016-11-29] MEDS: LISINOPRIL 5 MG TABLET NG SCH (10:46)
[2016-11-29] MEDS: INSULIN DETEMIR 100 UNIT/ML 3 ML PEN SUBCUT SCH ×2 (10:46→23:16)
[2016-11-29 11:06] LABS: ALANINE AMINOTRANSFERASE 29 U/L (9-52); ALBUMIN 1.8 g/dL (3.5-5.0); ALKALINE PHOSPHATASE 34 U/L (38-126); ASPARTATE AMINO TRANSFERASE 10 U/L (14-36); BILIRUBIN,DIRECT 0.1 mg/dL (0.0-0.4); BILIRUBIN,TOTAL 0.1 mg/dL (0.2-1.3); MAGNESIUM 1.3 mg/dL (1.6-2.3); TOTAL PROTEIN 3.5 g/dL (6.3-8.2)
--- NOTE | 2016-11-29 11:32 | PDOC PROGRESS REPORT ---
Subjective Progress Note for:: 11/29/16 Subjective:: Awake resting currently without complaint Physical Exam Vital Signs: Temp Pulse Resp BP Pulse Ox 97.7 F 78 18 109/37 L 97 11/29/16 03:00 11/29/16 03:00 11/29/16 03:00 11/29/16 03:00 11/29/16 03:00 Intake & Output 11/28/16 11/29/16 11/30/16 06:59 06:59 06:59 Intake Total 1610 2068 Output Total 3875 1400 Balance -2265 668 Weight 114.6 kg 116.6 kg General appearance: PRESENT: no acute distress, cooperative, disheveled, morbidly obese, well-developed Head exam: PRESENT: atraumatic, normocephalic Eye exam: PRESENT: conjunctiva pale, EOMI Mouth exam: PRESENT: neck supple, tongue midline Neck exam: ABSENT: carotid bruit, JVD, lymphadenopathy, thyromegaly Respiratory exam: PRESENT: decreased breath sounds, prolonged expiratory phas, rhonchi, symmetrical, unlabored. ABSENT: accessory muscle use, chest wall tenderness, clear to auscultation rolf, crackles, rales, retraction, stridor, tachypnea, wheezes Cardiovascular exam: PRESENT: RRR, +S1, +S2 Pulses: PRESENT: normal radial pulses GI/Abdominal exam: PRESENT: normal bowel sounds, soft. ABSENT: distended, guarding, mass, organolmegaly, rebound, tenderness Rectal exam: PRESENT: deferred Extremities exam: PRESENT: +1 edema Neurological exam: PRESENT: awake Skin exam: PRESENT: dry, warm Results Laboratory Results: 11/29/16 05:15 11/29/16 05:15 11/29/16 11/29/16 11/29/16 05:15 05:15 06:05 WBC 15.0 H RBC 3.75 Hgb 10.8 L Hct 33.2 L MCV 89 MCH 28.7 MCHC 32.5 RDW 14.9 H Plt Count 349 Seg Neutrophils % Not Reportable Lymphocytes % Not Reportable Monocytes % Not Reportable Eosinophils % Not Reportable Basophils % Not Reportable Absolute Neutrophils Not Reportable Absolute Lymphocytes Not Reportable Absolute Monocytes Not Reportable Absolute Eosinophils Not Reportable Absolute Basophils Not Reportable Carbonic Acid 1.50 H HCO3/H2CO3 Ratio 21:1 ABG pH 7.43 ABG pCO2 49.8 H ABG pO2 86.4 ABG HCO3 32.1 H ABG O2 Saturation 96.6 ABG Base Excess 6.6 FiO2 1L Sodium 139.9 Potassium 3.1 L Chloride 113 H Carbon Dioxide 22 Anion Gap 5 BUN 19 Creatinine 0.45 L Est GFR ( Amer) > 60 Est GFR (Non-Af Amer) > 60 Glucose 135 H Calcium 6.1 L* 11/07/16 11/07/16 11/07/16 18:12 18:12 18:12 Creatine Kinase 33 CK-MB (CK-2) 1.10 Troponin I 0.018 NT-Pro-B Natriuret Pep 2110 H 11/08/16 11/08/16 11/08/16 00:35 00:35 05:54 Creatine Kinase 40 CK-MB (CK-2) 1.24 1.48 Troponin I 0.014 0.016 NT-Pro-B Natriuret Pep 11/08/16 11/20/16 11/20/16 05:54 16:50 16:50 Creatine Kinase 30 51 CK-MB (CK-2) 2.04 Troponin I < 0.012 NT-Pro-B Natriuret Pep 11/21/16 11/21/16 11/21/16 14:30 14:30 22:30 Creatine Kinase 30 81 CK-MB (CK-2) 2.10 Troponin I 0.047 NT-Pro-B Natriuret Pep 11/21/16 11/22/16 11/23/16 22:30 06:30 05:20 Creatine Kinase CK-MB (CK-2) 8.19 H 7.63 H Troponin I 1.060 1.650 0.892 NT-Pro-B Natriuret Pep 11/23/16 11/23/16 11/23/16 12:07 12:07 19:58 Creatine Kinase 40 38 CK-MB (CK-2) 1.50 Troponin I 0.771 NT-Pro-B Natriuret Pep 11/23/16 11/24/16 11/24/16 19:58 04:35 04:35 Creatine Kinase 34 CK-MB (CK-2) 1.44 0.95 Troponin I 0.702 0.713 NT-Pro-B Natriuret Pep Impressions: Guidance Fluoroscopy 11/08/16 00:00 IMPRESSION: SUCCESSFUL PLACEMENT OF A 5 FR DUAL LUMEN 44 CM PICC IN THE LEFT BASILIC VEIN. Interventional Vascular Procedure 11/08/16 00:00 IMPRESSION: SUCCESSFUL PLACEMENT OF A 5 FR DUAL LUMEN 44 CM PICC IN THE LEFT BASILIC VEIN. PICC Line Insertion 11/08/16 00:00 IMPRESSION: SUCCESSFUL PLACEMENT OF A 5 FR DUAL LUMEN 44 CM PICC IN THE LEFT BASILIC VEIN. Knee X-Ray 11/10/16 00:00 IMPRESSION: NEGATIVE STUDY OF THE LEFT KNEE. NO RADIOGRAPHIC EVIDENCE OF ACUTE INJURY. Lumbar Spine X-Ray 11/10/16 00:00 IMPRESSION: Possible new minimal compression fractures of L2 and L5. Generalized osteopenia. Chronic T12 compression fracture. Lumbar Spine MRI 11/13/16 00:00 IMPRESSION: No acute findings in the lumbar spine. Chest X-Ray 11/28/16 06:00 IMPRESSION: Stable cardiomegaly. No acute infiltrates Assessment & Plan - Diagnosis (1) Acute chronic obstructive pulmonary disease with respiratory distress Is this a current diagnosis for this admission?: No Plan: 48 hours status post extubation doing well (2) Acute exacerbation of chronic obstructive pulmonary disease (COPD) Is this a current diagnosis for this admission?: No (3) Diabetes mellitus Qualifiers: Diabetes mellitus type: type 2 Diabetes mellitus complication status: with neurologic complications Diabetes mellitus complication detail: with polyneuropathy Diabetes mellitus parts counterman insulin use: with parts counterman use Qualified Code(s): E11.42 - Type 2 diabetes mellitus with diabetic polyneuropathy Is this a current diagnosis for this admission?: Yes (4) Obesity Is this a current diagnosis for this admission?: Yes - Plan Summary Plan Summary: Labs- All tests 24 hr 11/25/16 11/26/16 11/27/16 05:29 04:48 06:07 WBC 11.5 H 12.9 H 13.7 H Seg Neuts % (Manual) Band Neutrophils % ABG pH ABG pCO2 ABG pO2 ABG O2 Saturation FiO2 Potassium Calcium Magnesium Albumin 11/28/16 11/28/16 11/29/16 05:00 05:14 05:15 WBC 15.8 H Seg Neuts % (Manual) 87 H Band Neutrophils % 1 L ABG pH 7.42 ABG pCO2 51.4 H ABG pO2 105.3 H ABG O2 Saturation 97.9 FiO2 28% Potassium 3.1 L Calcium 6.1 L* Magnesium Albumin 11/29/16 05:15 WBC Seg Neuts % (Manual) Band Neutrophils % ABG pH ABG pCO2 ABG pO2 ABG O2 Saturation FiO2 Potassium Calcium Magnesium 1.3 L Albumin 1.8 L Corrected calcium 7.8 [place] hypokalemic
[2016-11-29] MEDS: MAGNESIUM SULFATE/D5W 1 GM/100 ML RTUPB IV SCH ×3 (12:16→14:25)
[2016-11-29] MEDS: ATORVASTATIN CALCIUM 40 MG TABLET NG SCH (22:28)
[2016-11-29] MEDS ORDERED: INSULIN DETEMIR 100 UNIT/ML 3 ML PEN SUBCUT ONE (22:47)
[2016-11-29] MEDS: INSULIN REG, HUMAN 100 UNIT/ML 3 ML VIAL (PYX) SUBCUT PRN (23:16)
[2016-11-30] MEDS: IPRATROPIUM/ALBUTEROL 0.5-2.5 MG/3 ML AMPUL NEB SCH ×4 (02:13→20:05)
[2016-11-30] MEDS: GABAPENTIN 300 MG CAPSULE NG SCH ×4 (05:55→23:07)
[2016-11-30 06:51] LABS: ALANINE AMINOTRANSFERASE 31 U/L (9-52); ALBUMIN 2.8 g/dL (3.5-5.0); ALKALINE PHOSPHATASE 59 U/L (38-126); ANION GAP 8 (5-19); ASPARTATE AMINO TRANSFERASE 14 U/L (14-36); BILIRUBIN,DIRECT 0.2 mg/dL (0.0-0.4); BILIRUBIN,TOTAL 0.2 mg/dL (0.2-1.3); BLOOD UREA NITROGEN 38 mg/dL (7-20); CALCIUM 8.9 mg/dL (8.4-10.2); CARBON DIOXIDE 30 mmol/L (22-30); CHLORIDE 101 mmol/L (98-107); CREATININE RESULT 0.79 mg/dL (0.52-1.25); GLUCOSE 229 mg/dL (75-110); POTASSIUM 4.8 mmol/L (3.6-5.0); TOTAL PROTEIN 4.9 g/dL (6.3-8.2)
--- NOTE | 2016-11-30 10:04 | PDOC PROGRESS REPORT ---
Subjective Progress Note for:: 11/29/16 Subjective:: She was seen by the bedside, she continues to complain of profuse diarrhea, the stool study was negative for Clostridium difficile toxin the diarrhea is most likely from the antibiotic. Bactrim antibiotic was discontinued yesterday she is still presently on intravenous ceftazidime this will also be discontinued today. She is still complaining of dysuria though she has a Kaur catheter in place, the catheter be discontinued as well. Physical Exam Vital Signs: Temp Pulse Resp BP Pulse Ox 98.3 F 81 21 H 130/51 H 99 11/30/16 08:02 11/30/16 08:18 11/30/16 08:18 11/30/16 08:02 11/30/16 08:18 Intake & Output 11/29/16 11/30/16 12/01/16 06:59 06:59 06:59 Intake Total 2068 2120 Output Total 1400 Balance 668 2120 Weight 116.6 kg 116.8 kg General appearance: PRESENT: no acute distress, well-developed, well-nourished Head exam: PRESENT: atraumatic, normocephalic Eye exam: PRESENT: conjunctiva pink, EOMI, PERRLA. ABSENT: scleral icterus Ear exam: PRESENT: normal external ear exam Mouth exam: PRESENT: moist, tongue midline Neck exam: PRESENT: full ROM. ABSENT: carotid bruit, JVD, lymphadenopathy, thyromegaly Respiratory exam: PRESENT: clear to auscultation rolf Cardiovascular exam: PRESENT: RRR, +S1, +S2 Pulses: PRESENT: normal dorsalis pedis pul, +2 pedal pulses bilateral Vascular exam: PRESENT: normal capillary refill GI/Abdominal exam: PRESENT: normal bowel sounds, soft Rectal exam: PRESENT: deferred Neurological exam: PRESENT: alert, awake, oriented to person, oriented to place , oriented to time, oriented to situation, CN II-XII grossly intact. ABSENT: motor sensory deficit Psychiatric exam: PRESENT: appropriate affect, normal mood. ABSENT: homicidal ideation, suicidal ideation Skin exam: PRESENT: dry, intact, warm Results Laboratory Results: 11/29/16 05:15 11/30/16 05:58 11/29/16 11/30/16 05:15 05:58 Sodium 139.0 Potassium 4.8 Chloride 101 Carbon Dioxide 30 Anion Gap 8 BUN 38 H Creatinine 0.79 Est GFR ( Amer) > 60 Est GFR (Non-Af Amer) > 60 Glucose 229 H Calcium 8.9 Magnesium 1.3 L Total Bilirubin 0.1 L 0.2 AST 10 L 14 ALT 29 31 Alkaline Phosphatase 34 L 59 Total Protein 3.5 L 4.9 L Albumin 1.8 L 2.8 L 11/07/16 11/07/16 11/07/16 18:12 18:12 18:12 Creatine Kinase 33 CK-MB (CK-2) 1.10 Troponin I 0.018 NT-Pro-B Natriuret Pep 2110 H 11/08/16 11/08/16 11/08/16 00:35 00:35 05:54 Creatine Kinase 40 CK-MB (CK-2) 1.24 1.48 Troponin I 0.014 0.016 NT-Pro-B Natriuret Pep 11/08/16 11/20/16 11/20/16 05:54 16:50 16:50 Creatine Kinase 30 51 CK-MB (CK-2) 2.04 Troponin I < 0.012 NT-Pro-B Natriuret Pep 11/21/16 11/21/16 11/21/16 14:30 14:30 22:30 Creatine Kinase 30 81 CK-MB (CK-2) 2.10 Troponin I 0.047 NT-Pro-B Natriuret Pep 11/21/16 11/22/16 11/23/16 22:30 06:30 05:20 Creatine Kinase CK-MB (CK-2) 8.19 H 7.63 H Troponin I 1.060 1.650 0.892 NT-Pro-B Natriuret Pep 11/23/16 11/23/16 11/23/16 12:07 12:07 19:58 Creatine Kinase 40 38 CK-MB (CK-2) 1.50 Troponin I 0.771 NT-Pro-B Natriuret Pep 11/23/16 11/24/16 11/24/16 19:58 04:35 04:35 Creatine Kinase 34 CK-MB (CK-2) 1.44 0.95 Troponin I 0.702 0.713 NT-Pro-B Natriuret Pep Impressions: Guidance Fluoroscopy 11/08/16 00:00 IMPRESSION: SUCCESSFUL PLACEMENT OF A 5 FR DUAL LUMEN 44 CM PICC IN THE LEFT BASILIC VEIN. Interventional Vascular Procedure 11/08/16 00:00 IMPRESSION: SUCCESSFUL PLACEMENT OF A 5 FR DUAL LUMEN 44 CM PICC IN THE LEFT BASILIC VEIN. PICC Line Insertion 11/08/16 00:00 IMPRESSION: SUCCESSFUL PLACEMENT OF A 5 FR DUAL LUMEN 44 CM PICC IN THE LEFT BASILIC VEIN. Knee X-Ray 11/10/16 00:00 IMPRESSION: NEGATIVE STUDY OF THE LEFT KNEE. NO RADIOGRAPHIC EVIDENCE OF ACUTE INJURY. Lumbar Spine X-Ray 11/10/16 00:00 IMPRESSION: Possible new minimal compression fractures of L2 and L5. Generalized osteopenia. Chronic T12 compression fracture. Lumbar Spine MRI 11/13/16 00:00 IMPRESSION: No acute findings in the lumbar spine. Chest X-Ray 11/28/16 06:00 IMPRESSION: Stable cardiomegaly. No acute infiltrates Assessment & Plan - Diagnosis (1) Acute hypercapnic respiratory failure Is this a current diagnosis for this admission?: Yes (2) Diabetes mellitus type 2 in obese Is this a current diagnosis for this admission?: Yes (3) Peripheral vascular disease Is this a current diagnosis for this admission?: Yes (4) COPD (chronic obstructive pulmonary disease) Qualifiers: COPD type: COPD with acute exacerbation Qualified Code(s): J44.1 - Chronic obstructive pulmonary disease with (acute) exacerbation Is this a current diagnosis for this admission?: Yes (5) Coronary artery disease Qualifiers: Coronary Disease-Associated Artery/Lesion type: [place] artery [place] vs. transplanted heart: [place] heart Associated angina: angina presence unspecified Qualified Code(s): I25.10 - Atherosclerotic heart disease of [place] coronary artery without angina pectoris Is this a current diagnosis for this admission?: Yes (6) Physical deconditioning Is this a current diagnosis for this admission?: Yes (7) Urinary tract infection Qualifiers: Urinary tract infection type: site unspecified Hematuria presence: without hematuria Qualified Code(s): N39.0 - Urinary tract infection, site not specified Is this a current diagnosis for this admission?: Yes (8) Enterococcus UTI Is this a current diagnosis for this admission?: Yes (9) Non-ST elevated myocardial infarction Is this a current diagnosis for this admission?: Yes (10) Hypotension Qualifiers: Hypotension type: other hypotension type Qualified Code(s): I95.89 - Other hypotension Is this a current diagnosis for this admission?: Yes (11) Acute chronic obstructive pulmonary disease with respiratory distress Is this a current diagnosis for this admission?: No (12) Diabetes mellitus Qualifiers: Diabetes mellitus type: type 2 Diabetes mellitus complication status: with neurologic complications Diabetes mellitus complication detail: with polyneuropathy Diabetes mellitus terminal system operator insulin use: with terminal system operator use Qualified Code(s): E11.42 - Type 2 diabetes mellitus with diabetic polyneuropathy Is this a current diagnosis for this admission?: Yes
[2016-11-30] MEDS: CLOPIDOGREL BISULFATE 75 MG TABLET NG SCH (11:52)
[2016-11-30] MEDS: RANOLAZINE 500 MG TAB.SR.12H PO SCH ×2 (11:52→21:58)
[2016-11-30] MEDS: LISINOPRIL 5 MG TABLET NG SCH (11:52)
[2016-11-30] MEDS: METOPROLOL SUCCINATE 50 MG TAB.SR.24H PO SCH (11:52)
[2016-11-30] MEDS: SERTRALINE HCL 50 MG TABLET NG SCH (11:53)
[2016-11-30] MEDS: ASPIRIN 81 MG TABLET, CHEWABLE NG SCH (11:53)
[2016-11-30] MEDS: INSULIN DETEMIR 100 UNIT/ML 3 ML PEN SUBCUT SCH ×2 (13:31→21:57)
[2016-11-30] MEDS: LOPERAMIDE HCL 2 MG CAPSULE PO PRN (13:31)
[2016-11-30] MEDS ORDERED: DOXEPIN HCL 25 MG CAPSULE PO PRN (15:14)
--- NOTE | 2016-11-30 15:53 | PDOC PROGRESS REPORT ---
Subjective Progress Note for:: 11/30/16 Subjective:: She was seen by the bedside, she raised the issue of pain control, she was advised to take Ultram for pain ,she also want antifungal cream for the perineum she is prescribed nystatin cream for that ,she is waiting for bed Physical Exam Vital Signs: Temp Pulse Resp BP Pulse Ox 98.9 F 77 14 110/48 L 100 11/30/16 15:41 11/30/16 15:41 11/30/16 15:41 11/30/16 15:41 11/30/16 15:41 Intake & Output 11/29/16 11/30/16 12/01/16 06:59 06:59 06:59 Intake Total 2068 2120 Output Total 1400 Balance 668 2120 Weight 116.6 kg 116.8 kg General appearance: PRESENT: no acute distress Eye exam: PRESENT: PERRLA Respiratory exam: PRESENT: clear to auscultation rolf Cardiovascular exam: PRESENT: +S1, +S2 GI/Abdominal exam: PRESENT: soft Neurological exam: PRESENT: alert, CN II-XII grossly intact Results Laboratory Results: 11/29/16 05:15 11/30/16 05:58 11/30/16 05:58 Sodium 139.0 Potassium 4.8 Chloride 101 Carbon Dioxide 30 Anion Gap 8 BUN 38 H Creatinine 0.79 Est GFR ( Amer) > 60 Est GFR (Non-Af Amer) > 60 Glucose 229 H Calcium 8.9 Total Bilirubin 0.2 AST 14 ALT 31 Alkaline Phosphatase 59 Total Protein 4.9 L Albumin 2.8 L 11/07/16 11/07/16 11/07/16 18:12 18:12 18:12 Creatine Kinase 33 CK-MB (CK-2) 1.10 Troponin I 0.018 NT-Pro-B Natriuret Pep 2110 H 11/08/16 11/08/16 11/08/16 00:35 00:35 05:54 Creatine Kinase 40 CK-MB (CK-2) 1.24 1.48 Troponin I 0.014 0.016 NT-Pro-B Natriuret Pep 11/08/16 11/20/16 11/20/16 05:54 16:50 16:50 Creatine Kinase 30 51 CK-MB (CK-2) 2.04 Troponin I < 0.012 NT-Pro-B Natriuret Pep 11/21/16 11/21/16 11/21/16 14:30 14:30 22:30 Creatine Kinase 30 81 CK-MB (CK-2) 2.10 Troponin I 0.047 NT-Pro-B Natriuret Pep 11/21/16 11/22/16 11/23/16 22:30 06:30 05:20 Creatine Kinase CK-MB (CK-2) 8.19 H 7.63 H Troponin I 1.060 1.650 0.892 NT-Pro-B Natriuret Pep 11/23/16 11/23/16 11/23/16 12:07 12:07 19:58 Creatine Kinase 40 38 CK-MB (CK-2) 1.50 Troponin I 0.771 NT-Pro-B Natriuret Pep 11/23/16 11/24/16 11/24/16 19:58 04:35 04:35 Creatine Kinase 34 CK-MB (CK-2) 1.44 0.95 Troponin I 0.702 0.713 NT-Pro-B Natriuret Pep Impressions: Guidance Fluoroscopy 11/08/16 00:00 IMPRESSION: SUCCESSFUL PLACEMENT OF A 5 FR DUAL LUMEN 44 CM PICC IN THE LEFT BASILIC VEIN. Interventional Vascular Procedure 11/08/16 00:00 IMPRESSION: SUCCESSFUL PLACEMENT OF A 5 FR DUAL LUMEN 44 CM PICC IN THE LEFT BASILIC VEIN. PICC Line Insertion 11/08/16 00:00 IMPRESSION: SUCCESSFUL PLACEMENT OF A 5 FR DUAL LUMEN 44 CM PICC IN THE LEFT BASILIC VEIN. Knee X-Ray 11/10/16 00:00 IMPRESSION: NEGATIVE STUDY OF THE LEFT KNEE. NO RADIOGRAPHIC EVIDENCE OF ACUTE INJURY. Lumbar Spine X-Ray 11/10/16 00:00 IMPRESSION: Possible new minimal compression fractures of L2 and L5. Generalized osteopenia. Chronic T12 compression fracture. Lumbar Spine MRI 11/13/16 00:00 IMPRESSION: No acute findings in the lumbar spine. Chest X-Ray 11/28/16 06:00 IMPRESSION: Stable cardiomegaly. No acute infiltrates Assessment & Plan - Diagnosis (1) Acute hypercapnic respiratory failure Is this a current diagnosis for this admission?: Yes (2) Diabetes mellitus type 2 in obese Is this a current diagnosis for this admission?: Yes (3) Peripheral vascular disease Is this a current diagnosis for this admission?: Yes (4) COPD (chronic obstructive pulmonary disease) Qualifiers: COPD type: COPD with acute exacerbation Qualified Code(s): J44.1 - Chronic obstructive pulmonary disease with (acute) exacerbation Is this a current diagnosis for this admission?: Yes (5) Coronary artery disease Qualifiers: Coronary Disease-Associated Artery/Lesion type: [place] artery [place] vs. transplanted heart: [place] heart Associated angina: angina presence unspecified Qualified Code(s): I25.10 - Atherosclerotic heart disease of [place] coronary artery without angina pectoris Is this a current diagnosis for this admission?: Yes (6) Physical deconditioning Is this a current diagnosis for this admission?: Yes (7) Urinary tract infection Qualifiers: Urinary tract infection type: site unspecified Hematuria presence: without hematuria Qualified Code(s): N39.0 - Urinary tract infection, site not specified Is this a current diagnosis for this admission?: Yes (8) Enterococcus UTI Is this a current diagnosis for this admission?: Yes (9) Non-ST elevated myocardial infarction Is this a current diagnosis for this admission?: Yes (10) Hypotension Qualifiers: Hypotension type: other hypotension type Qualified Code(s): I95.89 - Other hypotension Is this a current diagnosis for this admission?: Yes (11) Acute chronic obstructive pulmonary disease with respiratory distress Is this a current diagnosis for this admission?: No (12) Diabetes mellitus Qualifiers: Diabetes mellitus type: type 2 Diabetes mellitus complication status: with neurologic complications Diabetes mellitus complication detail: with polyneuropathy 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
[2016-11-30] MEDS: TRAMADOL HCL 50 MG TABLET PO PRN ×2 (17:01→23:04)
[2016-11-30] MEDS: INSULIN REG, HUMAN 100 UNIT/ML 3 ML VIAL (PYX) SUBCUT PRN (17:58)
[2016-11-30] MEDS: ATORVASTATIN CALCIUM 40 MG TABLET NG SCH (21:58)
[2016-11-30] MEDS: NYSTATIN CREAM 15 GM TP SCH (21:58)
--- NOTE | 2016-12-01 00:48 | PROGRESS NOTE E ---
Progress Note NAME: TORREY MARKS : 1950 AGE: 65Y DATE: 11/30/2016 ROOM: 433 SUBJECTIVE: The patient is doing much better. She is more cheerful but has some back pain. She denies any chest pain or difficult breath. There is no PND or orthopnea. There is no leg edema. She has some mild back pain and Ultram is going to be added to her regimen. Note that the patient is doing much better. She denies any chest pain or difficult breath. There is no PND, orthopnea, or shortness of breath, and there is no wheezing. She has some mild back pain, and Ultram is going to be added to her regimen. She will be getting a PICC line today and subsequently be started on antibiotics for her enterococcus *------*. The patient remains sinus rhythm. There is no TIA or CVA symptoms. OBJECTIVE: On examination, the patient is mildly obese. She is well groomed, in no acute distress at present, except for mild back pain. She is afebrile with a temperature of 98.9 degrees Fahrenheit. Pulse is 77 beats per minute. Blood pressure is 110/48. Respirations 16 per minute. O2 sat is 100% on 2 liters nasal cannula. On examination, the patient is having just mild back pain but in no acute distress. Head is atraumatic, normocephalic. Eyes: Pupils are equal, round, and regular, reactive to light and accommodation. Extraocular movements are normal. There is no conjunctival pallor. There is no scleral icterus. ENT is negative. Neck is supple. There is no JVD. Carotids are equal. There is no bruit. There is no lymphadenopathy. There is no goiter. Trachea is central. Lungs show diminished air entry, prolonged expiration, otherwise without any rhonchi, rales, or wheezes. There is hyperresonance on percussion. S1/S2 is heard. There is no S3 gallop. There is no S4 gallop. There is a systolic murmur in the left sternal border and the apex. There is no rub. Abdomen is soft, nontender. There is no hepatosplenomegaly. Bowel sounds are well heard. There are no tender areas or masses. Femorals are slightly diminished. There are no femoral bruits. Leg pulses are diminished. There is no pedal edema. There is no DVT or cellulitis. There is no calf tenderness. The patient's sodium is 139, potassium is 4.8, BUN is 33, creatinine 0.79, GFR is greater than 60, glucose is 229. ASSESSMENT: 1. ACUTE ON CHRONIC OBSTRUCTIVE PULMONARY DISEASE WITH RESPIRATORY DISTRESS WHICH HAS RESOLVED. 2. ACUTE HYPERCAPNIC RESPIRATORY FAILURE. THIS HAS ALSO RESOLVED. 3. ELEVATED TROPONIN I, WHICH EARLIER HAD TRENDED DOWN. 4. [id number] MYOCARDIAL INFARCTION. THE PATIENT IS PRESENTLY WITHOUT CHEST PAIN. 5. CORONARY ARTERY DISEASE, AT PRESENT STABLE. PATIENT WITHOUT ANGINA. 6. DIABETES MELLITUS WITH POLYNEUROPATHY, INSULIN DEPENDENT. 7. MILD FRACTURE OF THE LUMBAR 2 AND LUMBAR 5 SPINES WELL CHRONIC T12 FRACTURE. 8. CARDIOMYOPATHY WITH SEVERELY REDUCED EJECTION FRACTION, AT PRESENT COMPENSATED. 9. ENTEROCOCCUS URINARY TRACT INFECTION. 10. HYPOTENSION, RESOLVED. BLOOD PRESSURE IS NOW STABLE. PLAN: Recommendations: The patient is getting a PICC. She will be started on antibiotics. Note that the patient is on continued respiratory treatment, aspirin, atorvastatin. Will continue Plavix. She will continue insulin. Note that the patient is on lisinopril 2.5 mg p.o. daily. Continue that and continue the patient on metoprolol/Toprol 25 mg per day. Continue Ranexa. Continue Ultram for her back pain. The patient soon will be started on antibiotics. She is also getting antifungal Nystatin cream applied to her perineal area for a fungal infection. The patient's current *------* status is stable. Review of symptoms is negative and medications have been reviewed. The patient is a DO NOT RESUSCITATE. Her daughter is her surrogate healthcare decision maker. The patient's cardiac status at present seems to be stable. We will follow the patient in the office. Will sign off the case. Discussed with Dr. Jackson. Note, 25 minutes spent on this patient, more than 50% of the time spent in direct patient care. Decision making at present is of moderate complexity due to the patient's multiple medical problems. DICTATING PHYSICIAN: DAVID ALVAREZ M.D. [id number] PHY#: [id number] ID: [id number] JOB#: [id number] ACCT: [id number] cc: >
[2016-12-01] MEDS: IPRATROPIUM/ALBUTEROL 0.5-2.5 MG/3 ML AMPUL NEB SCH ×4 (01:43→19:54)
[2016-12-01] MEDS: GABAPENTIN 300 MG CAPSULE NG SCH ×3 (04:55→17:20)
[2016-12-01] MEDS: TRAMADOL HCL 50 MG TABLET PO PRN (04:56)
[2016-12-01] MEDS: INSULIN REG, HUMAN 100 UNIT/ML 3 ML VIAL (PYX) SUBCUT PRN ×3 (07:49→22:36)
[2016-12-01] MEDS: CLOPIDOGREL BISULFATE 75 MG TABLET NG SCH (09:55)
[2016-12-01] MEDS: METOPROLOL SUCCINATE 25 MG TAB.SR.24H PO SCH (09:55)
[2016-12-01] MEDS: LISINOPRIL 5 MG TABLET NG SCH (09:55)
[2016-12-01] MEDS: RANOLAZINE 500 MG TAB.SR.12H PO SCH ×2 (09:56→22:35)
[2016-12-01] MEDS: ASPIRIN 81 MG TABLET, CHEWABLE NG SCH (09:56)
[2016-12-01] MEDS: SERTRALINE HCL 50 MG TABLET NG SCH (09:56)
[2016-12-01] MEDS: INSULIN DETEMIR 100 UNIT/ML 3 ML PEN SUBCUT SCH ×2 (09:57→22:36)
[2016-12-01] MEDS: NYSTATIN CREAM 15 GM TP SCH ×2 (09:57→22:35)
[2016-12-01] MEDS: ATORVASTATIN CALCIUM 40 MG TABLET NG SCH (22:35)
[2016-12-02] MEDS: GABAPENTIN 300 MG CAPSULE NG SCH ×4 (00:36→17:39)
[2016-12-02] MEDS: IPRATROPIUM/ALBUTEROL 0.5-2.5 MG/3 ML AMPUL NEB SCH ×4 (01:54→20:26)
[2016-12-02] MEDS: CLOPIDOGREL BISULFATE 75 MG TABLET NG SCH (10:07)
[2016-12-02] MEDS: METOPROLOL SUCCINATE 25 MG TAB.SR.24H PO SCH (10:07)
[2016-12-02] MEDS: SERTRALINE HCL 50 MG TABLET NG SCH (10:07)
[2016-12-02] MEDS: ASPIRIN 81 MG TABLET, CHEWABLE NG SCH (10:07)
[2016-12-02] MEDS: RANOLAZINE 500 MG TAB.SR.12H PO SCH ×2 (10:07→21:54)
[2016-12-02] MEDS: INSULIN DETEMIR 100 UNIT/ML 3 ML PEN SUBCUT SCH ×2 (10:09→21:54)
[2016-12-02] MEDS: NYSTATIN CREAM 15 GM TP SCH ×2 (10:09→21:55)
[2016-12-02] MEDS: LISINOPRIL 5 MG TABLET NG SCH (10:12)
[2016-12-02] MEDS: INSULIN REG, HUMAN 100 UNIT/ML 3 ML VIAL (PYX) SUBCUT PRN ×3 (10:13→21:54)
[2016-12-02] MEDS: TRAMADOL HCL 50 MG TABLET PO PRN (17:39)
--- NOTE | 2016-12-02 21:42 | PDOC PROGRESS REPORT ---
Subjective Progress Note for:: 12/01/16 Subjective:: She was seen by the bedside, she raised the issue of pain control, she was advised to take Ultram for pain ,she also want antifungal cream for the perineum she is prescribed nystatin cream for that ,she is waiting for bed,She said she wants chest compressions but no intubation Physical Exam Vital Signs: Temp Pulse Resp BP Pulse Ox 99.6 F 69 17 109/53 L 96 12/02/16 19:56 12/02/16 20:26 12/02/16 20:26 12/02/16 19:56 12/02/16 20:26 Intake & Output 12/01/16 12/02/16 12/03/16 06:59 06:59 06:59 Intake Total 2339 Balance 2339 Weight 118.3 kg 118.8 kg General appearance: PRESENT: no acute distress, well-developed, well-nourished Head exam: PRESENT: atraumatic, normocephalic Eye exam: PRESENT: conjunctiva pink, EOMI, PERRLA Ear exam: PRESENT: normal external ear exam Mouth exam: PRESENT: moist, tongue midline Neck exam: PRESENT: full ROM Respiratory exam: PRESENT: clear to auscultation rolf Cardiovascular exam: PRESENT: RRR, +S1, +S2 Pulses: PRESENT: normal dorsalis pedis pul, +2 pedal pulses bilateral Vascular exam: PRESENT: normal capillary refill GI/Abdominal exam: PRESENT: normal bowel sounds, soft. ABSENT: distended, guarding, mass, organolmegaly, rebound, tenderness Rectal exam: PRESENT: deferred Neurological exam: PRESENT: alert, awake, oriented to person, oriented to place , oriented to time, oriented to situation, CN II-XII grossly intact. ABSENT: motor sensory deficit Psychiatric exam: PRESENT: appropriate affect, normal mood. ABSENT: homicidal ideation, suicidal ideation Skin exam: PRESENT: dry, intact, warm. ABSENT: cyanosis, rash Results Laboratory Results: 11/29/16 05:15 11/30/16 05:58 11/07/16 11/07/16 11/07/16 18:12 18:12 18:12 Creatine Kinase 33 CK-MB (CK-2) 1.10 Troponin I 0.018 NT-Pro-B Natriuret Pep 2110 H 11/08/16 11/08/1617 00:35 00:35 05:54 Creatine Kinase 40 CK-MB (CK-2) 1.24 1.48 Troponin I 0.014 0.016 NT-Pro-B Natriuret Pep 11/08/16 11/20/16 11/20/16 05:54 16:50 16:50 Creatine Kinase 30 51 CK-MB (CK-2) 2.04 Troponin I < 0.012 NT-Pro-B Natriuret Pep 11/21/16 11/21/16 11/21/16 14:30 14:30 22:30 Creatine Kinase 30 81 CK-MB (CK-2) 2.10 Troponin I 0.047 NT-Pro-B Natriuret Pep 11/21/16 11/22/16 11/23/16 22:30 06:30 05:20 Creatine Kinase CK-MB (CK-2) 8.19 H 7.63 H Troponin I 1.060 1.650 0.892 NT-Pro-B Natriuret Pep 11/23/16 11/23/16 11/23/16 12:07 12:07 19:58 Creatine Kinase 40 38 CK-MB (CK-2) 1.50 Troponin I 0.771 NT-Pro-B Natriuret Pep 11/23/16 11/24/16 11/24/16 19:58 04:35 04:35 Creatine Kinase 34 CK-MB (CK-2) 1.44 0.95 Troponin I 0.702 0.713 NT-Pro-B Natriuret Pep Impressions: Guidance Fluoroscopy 11/08/16 00:00 IMPRESSION: SUCCESSFUL PLACEMENT OF A 5 FR DUAL LUMEN 44 CM PICC IN THE LEFT BASILIC VEIN. Interventional Vascular Procedure 11/08/16 00:00 IMPRESSION: SUCCESSFUL PLACEMENT OF A 5 FR DUAL LUMEN 44 CM PICC IN THE LEFT BASILIC VEIN. PICC Line Insertion 11/08/16 00:00 IMPRESSION: SUCCESSFUL PLACEMENT OF A 5 FR DUAL LUMEN 44 CM PICC IN THE LEFT BASILIC VEIN. Knee X-Ray 11/10/16 00:00 IMPRESSION: NEGATIVE STUDY OF THE LEFT KNEE. NO RADIOGRAPHIC EVIDENCE OF ACUTE INJURY. Lumbar Spine X-Ray 11/10/16 00:00 IMPRESSION: Possible new minimal compression fractures of L2 and L5. Generalized osteopenia. Chronic T12 compression fracture. Lumbar Spine MRI 11/13/16 00:00 IMPRESSION: No acute findings in the lumbar spine. Chest X-Ray 11/28/16 06:00 IMPRESSION: Stable cardiomegaly. No acute infiltrates Assessment & Plan - Diagnosis (1) Acute hypercapnic respiratory failure Is this a current diagnosis for this admission?: Yes (2) Diabetes mellitus type 2 in obese Is this a current diagnosis for this admission?: Yes (3) Peripheral vascular disease Is this a current diagnosis for this admission?: Yes (4) COPD (chronic obstructive pulmonary disease) Qualifiers: COPD type: COPD with acute exacerbation Qualified Code(s): J44.1 - Chronic obstructive pulmonary disease with (acute) exacerbation Is this a current diagnosis for this admission?: Yes (5) Coronary artery disease Qualifiers: Coronary Disease-Associated Artery/Lesion type: [place] artery [place] vs. transplanted heart: [place] heart Associated angina: angina presence unspecified Qualified Code(s): I25.10 - Atherosclerotic heart disease of [place] coronary artery without angina pectoris Is this a current diagnosis for this admission?: Yes (6) Physical deconditioning Is this a current diagnosis for this admission?: Yes (7) Urinary tract infection Qualifiers: Urinary tract infection type: site unspecified Hematuria presence: without hematuria Qualified Code(s): N39.0 - Urinary tract infection, site not specified Is this a current diagnosis for this admission?: Yes (8) Enterococcus UTI Is this a current diagnosis for this admission?: Yes (9) Non-ST elevated myocardial infarction Is this a current diagnosis for this admission?: Yes (10) Hypotension Qualifiers: Hypotension type: other hypotension type Qualified Code(s): I95.89 - Other hypotension Is this a current diagnosis for this admission?: Yes (11) Acute chronic obstructive pulmonary disease with respiratory distress Is this a current diagnosis for this admission?: No (12) Diabetes mellitus Qualifiers: Diabetes mellitus type: type 2 Diabetes mellitus complication status: with neurologic complications Diabetes mellitus complication detail: with polyneuropathy Diabetes mellitus online activist insulin use: with online activist use Qualified Code(s): E11.42 - Type 2 diabetes mellitus with diabetic polyneuropathy Is this a current diagnosis for this admission?: Yes
--- NOTE | 2016-12-02 21:44 | PDOC PROGRESS REPORT ---
Subjective Progress Note for:: 12/02/16 Subjective:: She was seen by the bedside Physical Exam Vital Signs: Temp Pulse Resp BP Pulse Ox 99.6 F 69 17 109/53 L 96 12/02/16 19:56 12/02/16 20:26 12/02/16 20:26 12/02/16 19:56 12/02/16 20:26 Intake & Output 12/01/16 12/02/16 12/03/16 06:59 06:59 06:59 Intake Total 2339 Balance 2339 Weight 118.3 kg 118.8 kg General appearance: PRESENT: no acute distress, well-developed, well-nourished Head exam: PRESENT: atraumatic, normocephalic Eye exam: PRESENT: conjunctiva pink, EOMI, PERRLA Ear exam: PRESENT: normal external ear exam Mouth exam: PRESENT: moist, tongue midline Neck exam: PRESENT: full ROM Respiratory exam: PRESENT: clear to auscultation rolf Cardiovascular exam: PRESENT: RRR, +S1, +S2 Murmur grade: 3 Pulses: PRESENT: normal dorsalis pedis pul, +2 pedal pulses bilateral Vascular exam: PRESENT: normal capillary refill GI/Abdominal exam: PRESENT: normal bowel sounds, soft. ABSENT: distended, guarding, mass, organolmegaly, rebound, tenderness Rectal exam: PRESENT: deferred Neurological exam: PRESENT: alert, awake, oriented to person, oriented to place , oriented to time, oriented to situation, CN II-XII grossly intact. ABSENT: motor sensory deficit Psychiatric exam: PRESENT: appropriate affect, normal mood. ABSENT: homicidal ideation, suicidal ideation Skin exam: PRESENT: dry, intact, warm Results Laboratory Results: 11/29/16 05:15 11/30/16 05:58 11/07/16 11/07/16 11/07/16 18:12 18:12 18:12 Creatine Kinase 33 CK-MB (CK-2) 1.10 Troponin I 0.018 NT-Pro-B Natriuret Pep 2110 H 11/08/16 11/08/16 11/08/16 00:35 00:35 05:54 Creatine Kinase 40 CK-MB (CK-2) 1.24 1.48 Troponin I 0.014 0.016 NT-Pro-B Natriuret Pep 0911/20/16 11/20/16 05:54 16:50 16:50 Creatine Kinase 30 51 CK-MB (CK-2) 2.04 Troponin I < 0.012 NT-Pro-B Natriuret Pep 11/21/16 11/21/16 11/21/16 14:30 14:30 22:30 Creatine Kinase 30 81 CK-MB (CK-2) 2.10 Troponin I 0.047 NT-Pro-B Natriuret Pep 11/21/16 11/22/16 11/23/16 22:30 06:30 05:20 Creatine Kinase CK-MB (CK-2) 8.19 H 7.63 H Troponin I 1.060 1.650 0.892 NT-Pro-B Natriuret Pep 11/23/16 11/23/16 11/23/16 12:07 12:07 19:58 Creatine Kinase 40 38 CK-MB (CK-2) 1.50 Troponin I 0.771 NT-Pro-B Natriuret Pep 11/23/16 11/24/16 11/24/16 19:58 04:35 04:35 Creatine Kinase 34 CK-MB (CK-2) 1.44 0.95 Troponin I 0.702 0.713 NT-Pro-B Natriuret Pep Impressions: Guidance Fluoroscopy 11/08/16 00:00 IMPRESSION: SUCCESSFUL PLACEMENT OF A 5 FR DUAL LUMEN 44 CM PICC IN THE LEFT BASILIC VEIN. Interventional Vascular Procedure 11/08/16 00:00 IMPRESSION: SUCCESSFUL PLACEMENT OF A 5 FR DUAL LUMEN 44 CM PICC IN THE LEFT BASILIC VEIN. PICC Line Insertion 11/08/16 00:00 IMPRESSION: SUCCESSFUL PLACEMENT OF A 5 FR DUAL LUMEN 44 CM PICC IN THE LEFT BASILIC VEIN. Knee X-Ray 11/10/16 00:00 IMPRESSION: NEGATIVE STUDY OF THE LEFT KNEE. NO RADIOGRAPHIC EVIDENCE OF ACUTE INJURY. Lumbar Spine X-Ray 11/10/16 00:00 IMPRESSION: Possible new minimal compression fractures of L2 and L5. Generalized osteopenia. Chronic T12 compression fracture. Lumbar Spine MRI 11/13/16 00:00 IMPRESSION: No acute findings in the lumbar spine. Chest X-Ray 11/28/16 06:00 IMPRESSION: Stable cardiomegaly. No acute infiltrates Assessment & Plan - Diagnosis (1) Acute hypercapnic respiratory failure Is this a current diagnosis for this admission?: Yes (2) Diabetes mellitus type 2 in obese Is this a current diagnosis for this admission?: Yes (3) Peripheral vascular disease Is this a current diagnosis for this admission?: Yes (4) COPD (chronic obstructive pulmonary disease) Qualifiers: COPD type: COPD with acute exacerbation Qualified Code(s): J44.1 - Chronic obstructive pulmonary disease with (acute) exacerbation Is this a current diagnosis for this admission?: Yes (5) Coronary artery disease Qualifiers: Coronary Disease-Associated Artery/Lesion type: [place] artery [place] vs. transplanted heart: [place] heart Associated angina: angina presence unspecified Qualified Code(s): I25.10 - Atherosclerotic heart disease of [place] coronary artery without angina pectoris Is this a current diagnosis for this admission?: Yes (6) Physical deconditioning Is this a current diagnosis for this admission?: Yes (7) Urinary tract infection Qualifiers: Urinary tract infection type: site unspecified Hematuria presence: without hematuria Qualified Code(s): N39.0 - Urinary tract infection, site not specified Is this a current diagnosis for this admission?: Yes (8) Enterococcus UTI Is this a current diagnosis for this admission?: Yes (9) Non-ST elevated myocardial infarction Is this a current diagnosis for this admission?: Yes (10) Hypotension Qualifiers: Hypotension type: other hypotension type Qualified Code(s): I95.89 - Other hypotension Is this a current diagnosis for this admission?: Yes (11) Acute chronic obstructive pulmonary disease with respiratory distress Is this a current diagnosis for this admission?: No (12) Diabetes mellitus Qualifiers: Diabetes mellitus type: type 2 Diabetes mellitus complication status: with neurologic complications Diabetes mellitus complication detail: with polyneuropathy 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
[2016-12-02] MEDS: ATORVASTATIN CALCIUM 40 MG TABLET NG SCH (21:54)
[2016-12-03] MEDS: GABAPENTIN 300 MG CAPSULE NG SCH ×5 (00:44→23:13)
[2016-12-03] MEDS: TRAMADOL HCL 50 MG TABLET PO PRN ×3 (00:44→22:30)
[2016-12-03] MEDS: IPRATROPIUM/ALBUTEROL 0.5-2.5 MG/3 ML AMPUL NEB SCH ×4 (02:21→20:16)
[2016-12-03] MEDS: LISINOPRIL 5 MG TABLET NG SCH (10:27)
[2016-12-03] MEDS: SERTRALINE HCL 50 MG TABLET NG SCH (10:27)
[2016-12-03] MEDS: RANOLAZINE 500 MG TAB.SR.12H PO SCH ×2 (10:28→22:31)
[2016-12-03] MEDS: METOPROLOL SUCCINATE 25 MG TAB.SR.24H PO SCH (10:28)
[2016-12-03] MEDS: ASPIRIN 81 MG TABLET, CHEWABLE NG SCH (10:28)
[2016-12-03] MEDS: CLOPIDOGREL BISULFATE 75 MG TABLET NG SCH (10:28)
[2016-12-03] MEDS: NYSTATIN CREAM 15 GM TP SCH ×2 (10:30→22:34)
[2016-12-03] MEDS: INSULIN DETEMIR 100 UNIT/ML 3 ML PEN SUBCUT SCH ×2 (12:59→22:30)
--- NOTE | 2016-12-03 21:13 | PDOC PROGRESS REPORT ---
Subjective Progress Note for:: 12/03/16 Subjective:: Patient awaiting custodial placement, no new complaints Physical Exam Vital Signs: Temp Pulse Resp BP Pulse Ox 98.6 F 81 14 100/49 L 100 12/03/16 20:02 12/03/16 20:02 12/03/16 20:02 12/03/16 20:02 12/03/16 20:02 Intake & Output 12/02/16 12/03/16 12/04/16 06:59 06:59 06:59 Intake Total 1979 996 861 Output Total 1100 Balance 1979 -104 861 Weight 118.8 kg 118.8 kg General appearance: PRESENT: no acute distress Eye exam: PRESENT: PERRLA Respiratory exam: PRESENT: clear to auscultation rolf Cardiovascular exam: PRESENT: +S1, +S2 Murmur grade: 3 GI/Abdominal exam: PRESENT: soft Neurological exam: PRESENT: alert Results Laboratory Results: 11/29/16 05:15 11/30/16 05:58 11/07/16 11/07/16 11/07/16 18:12 18:12 18:12 Creatine Kinase 33 CK-MB (CK-2) 1.10 Troponin I 0.018 NT-Pro-B Natriuret Pep 2110 H 11/08/16 11/08/16 11/08/16 00:35 00:35 05:54 Creatine Kinase 40 CK-MB (CK-2) 1.24 1.48 Troponin I 0.014 0.016 NT-Pro-B Natriuret Pep 11/08/16 11/20/16 11/20/16 05:54 16:50 16:50 Creatine Kinase 30 51 CK-MB (CK-2) 2.04 Troponin I < 0.012 NT-Pro-B Natriuret Pep 11/21/16 11/21/16 11/21/16 14:30 14:30 22:30 Creatine Kinase 30 81 CK-MB (CK-2) 2.10 Troponin I 0.047 NT-Pro-B Natriuret Pep 11/21/16 11/22/16 11/23/16 22:30 06:30 05:20 Creatine Kinase CK-MB (CK-2) 8.19 H 7.63 H Troponin I 1.060 1.650 0.892 NT-Pro-B Natriuret Pep 11/23/16 11/23/16 11/23/16 12:07 12:07 19:58 Creatine Kinase 40 38 CK-MB (CK-2) 1.50 Troponin I 0.771 NT-Pro-B Natriuret Pep 11/23/16 11/24/16 11/24/16 19:58 04:35 04:35 Creatine Kinase 34 CK-MB (CK-2) 1.44 0.95 Troponin I 0.702 0.713 NT-Pro-B Natriuret Pep Impressions: Guidance Fluoroscopy 11/08/16 00:00 IMPRESSION: SUCCESSFUL PLACEMENT OF A 5 FR DUAL LUMEN 44 CM PICC IN THE LEFT BASILIC VEIN. Interventional Vascular Procedure 11/08/16 00:00 IMPRESSION: SUCCESSFUL PLACEMENT OF A 5 FR DUAL LUMEN 44 CM PICC IN THE LEFT BASILIC VEIN. PICC Line Insertion 11/08/16 00:00 IMPRESSION: SUCCESSFUL PLACEMENT OF A 5 FR DUAL LUMEN 44 CM PICC IN THE LEFT BASILIC VEIN. Knee X-Ray 11/10/16 00:00 IMPRESSION: NEGATIVE STUDY OF THE LEFT KNEE. NO RADIOGRAPHIC EVIDENCE OF ACUTE INJURY. Lumbar Spine X-Ray 11/10/16 00:00 IMPRESSION: Possible new minimal compression fractures of L2 and L5. Generalized osteopenia. Chronic T12 compression fracture. Lumbar Spine MRI 11/13/16 00:00 IMPRESSION: No acute findings in the lumbar spine. Chest X-Ray 11/28/16 06:00 IMPRESSION: Stable cardiomegaly. No acute infiltrates Assessment & Plan - Diagnosis (1) Acute hypercapnic respiratory failure Is this a current diagnosis for this admission?: Yes (2) Diabetes mellitus type 2 in obese Is this a current diagnosis for this admission?: Yes (3) Peripheral vascular disease Is this a current diagnosis for this admission?: Yes (4) COPD (chronic obstructive pulmonary disease) Qualifiers: COPD type: COPD with acute exacerbation Qualified Code(s): J44.1 - Chronic obstructive pulmonary disease with (acute) exacerbation Is this a current diagnosis for this admission?: Yes (5) Coronary artery disease Qualifiers: Coronary Disease-Associated Artery/Lesion type: [place] artery [place] vs. transplanted heart: [place] heart Associated angina: angina presence unspecified Qualified Code(s): I25.10 - Atherosclerotic heart disease of [place] coronary artery without angina pectoris Is this a current diagnosis for this admission?: Yes (6) Physical deconditioning Is this a current diagnosis for this admission?: Yes (7) Urinary tract infection Qualifiers: Urinary tract infection type: site unspecified Hematuria presence: without hematuria Qualified Code(s): N39.0 - Urinary tract infection, site not specified Is this a current diagnosis for this admission?: Yes (8) Enterococcus UTI Is this a current diagnosis for this admission?: Yes (9) Non-ST elevated myocardial infarction Is this a current diagnosis for this admission?: Yes (10) Hypotension Qualifiers: Hypotension type: other hypotension type Qualified Code(s): I95.89 - Other hypotension Is this a current diagnosis for this admission?: Yes (11) Acute chronic obstructive pulmonary disease with respiratory distress Is this a current diagnosis for this admission?: Yes (12) Diabetes mellitus Qualifiers: Diabetes mellitus type: type 2 Diabetes mellitus complication status: with neurologic complications Diabetes mellitus complication detail: with polyneuropathy 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
[2016-12-03] MEDS: INSULIN REG, HUMAN 100 UNIT/ML 3 ML VIAL (PYX) SUBCUT PRN (22:30)
[2016-12-03] MEDS: ATORVASTATIN CALCIUM 40 MG TABLET NG SCH (22:30)
[2016-12-04] MEDS: IPRATROPIUM/ALBUTEROL 0.5-2.5 MG/3 ML AMPUL NEB SCH ×4 (01:49→20:10)
[2016-12-04] MEDS: TRAMADOL HCL 50 MG TABLET PO PRN ×2 (06:17→23:28)
[2016-12-04] MEDS: GABAPENTIN 300 MG CAPSULE NG SCH ×4 (06:17→23:28)
[2016-12-04] MEDS: INSULIN DETEMIR 100 UNIT/ML 3 ML PEN SUBCUT SCH ×2 (10:22→21:39)
[2016-12-04] MEDS: RANOLAZINE 500 MG TAB.SR.12H PO SCH ×2 (10:23→21:45)
[2016-12-04] MEDS: METOPROLOL SUCCINATE 25 MG TAB.SR.24H PO SCH (10:24)
[2016-12-04] MEDS: LISINOPRIL 5 MG TABLET NG SCH (10:25)
[2016-12-04] MEDS: CLOPIDOGREL BISULFATE 75 MG TABLET NG SCH (10:26)
[2016-12-04] MEDS: SERTRALINE HCL 50 MG TABLET NG SCH (10:26)
[2016-12-04] MEDS: ASPIRIN 81 MG TABLET, CHEWABLE NG SCH (10:26)
[2016-12-04] MEDS: NYSTATIN CREAM 15 GM TP SCH ×2 (10:41→21:45)
[2016-12-04] MEDS: INSULIN REG, HUMAN 100 UNIT/ML 3 ML VIAL (PYX) SUBCUT PRN ×2 (12:51→17:37)
--- NOTE | 2016-12-04 17:21 | PDOC PROGRESS REPORT ---
Subjective Progress Note for:: 12/11/16 Subjective:: Patient awaiting [facility] placement, no new complaints Physical Exam Vital Signs: Temp Pulse Resp BP Pulse Ox 98.2 F 74 18 114/50 L 98 12/04/16 12:00 12/04/16 14:43 12/04/16 14:43 12/04/16 12:00 12/04/16 14:43 Intake & Output 12/03/16 12/04/16 12/05/16 06:59 06:59 06:59 Intake Total 996 1666 900 Output Total 1100 Balance -104 1666 900 Weight 118.8 kg 119.7 kg General appearance: PRESENT: no acute distress, well-developed, well-nourished Head exam: PRESENT: atraumatic, normocephalic Eye exam: PRESENT: conjunctiva pink, EOMI, PERRLA. ABSENT: scleral icterus Ear exam: PRESENT: normal external ear exam Mouth exam: PRESENT: moist, tongue midline Neck exam: PRESENT: full ROM Respiratory exam: PRESENT: clear to auscultation rolf Cardiovascular exam: PRESENT: RRR, +S1, +S2 Murmur grade: 3 Pulses: PRESENT: normal dorsalis pedis pul, +2 pedal pulses bilateral Vascular exam: PRESENT: normal capillary refill GI/Abdominal exam: PRESENT: normal bowel sounds, soft Rectal exam: PRESENT: deferred Neurological exam: PRESENT: alert, awake, oriented to person, oriented to place , oriented to time, oriented to situation, CN II-XII grossly intact Psychiatric exam: PRESENT: appropriate affect, normal mood Skin exam: PRESENT: dry, intact, warm Results Laboratory Results: 11/29/16 05:15 11/30/16 05:58 11/07/16 11/07/16 11/07/16 18:12 18:12 18:12 Creatine Kinase 33 CK-MB (CK-2) 1.10 Troponin I 0.018 NT-Pro-B Natriuret Pep 2110 H 11/08/16 11/08/16 11/08/16 00:35 00:35 05:54 Creatine Kinase 40 CK-MB (CK-2) 1.24 1.48 Troponin I 0.014 0.016 NT-Pro-B Natriuret Pep 11/08/16 11/20/16 11/20/16 05:54 16:50 16:50 Creatine Kinase 30 51 CK-MB (CK-2) 2.04 Troponin I < 0.012 NT-Pro-B Natriuret Pep 11/21/16 11/21/16 11/21/16 14:30 14:30 22:30 Creatine Kinase 30 81 CK-MB (CK-2) 2.10 Troponin I 0.047 NT-Pro-B Natriuret Pep 11/21/16 11/22/16 11/23/16 22:30 06:30 05:20 Creatine Kinase CK-MB (CK-2) 8.19 H 7.63 H Troponin I 1.060 1.650 0.892 NT-Pro-B Natriuret Pep 11/23/16 11/23/16 11/23/16 12:07 12:07 19:58 Creatine Kinase 40 38 CK-MB (CK-2) 1.50 Troponin I 0.771 NT-Pro-B Natriuret Pep 11/23/16 11/24/16 11/24/16 19:58 04:35 04:35 Creatine Kinase 34 CK-MB (CK-2) 1.44 0.95 Troponin I 0.702 0.713 NT-Pro-B Natriuret Pep Impressions: Guidance Fluoroscopy 11/08/16 00:00 IMPRESSION: SUCCESSFUL PLACEMENT OF A 5 FR DUAL LUMEN 44 CM PICC IN THE LEFT BASILIC VEIN. Interventional Vascular Procedure 11/08/16 00:00 IMPRESSION: SUCCESSFUL PLACEMENT OF A 5 FR DUAL LUMEN 44 CM PICC IN THE LEFT BASILIC VEIN. PICC Line Insertion 11/08/16 00:00 IMPRESSION: SUCCESSFUL PLACEMENT OF A 5 FR DUAL LUMEN 44 CM PICC IN THE LEFT BASILIC VEIN. Knee X-Ray 11/10/16 00:00 IMPRESSION: NEGATIVE STUDY OF THE LEFT KNEE. NO RADIOGRAPHIC EVIDENCE OF ACUTE INJURY. Lumbar Spine X-Ray 11/10/16 00:00 IMPRESSION: Possible new minimal compression fractures of L2 and L5. Generalized osteopenia. Chronic T12 compression fracture. Lumbar Spine MRI 11/13/16 00:00 IMPRESSION: No acute findings in the lumbar spine. Chest X-Ray 11/28/16 06:00 IMPRESSION: Stable cardiomegaly. No acute infiltrates Assessment & Plan - Diagnosis (1) Acute hypercapnic respiratory failure Is this a current diagnosis for this admission?: Yes (2) Diabetes mellitus type 2 in obese Is this a current diagnosis for this admission?: Yes (3) Peripheral vascular disease Is this a current diagnosis for this admission?: Yes (4) COPD (chronic obstructive pulmonary disease) Qualifiers: COPD type: COPD with acute exacerbation Qualified Code(s): J44.1 - Chronic obstructive pulmonary disease with (acute) exacerbation Is this a current diagnosis for this admission?: Yes (5) Coronary artery disease Qualifiers: Coronary Disease-Associated Artery/Lesion type: [place] artery [place] vs. transplanted heart: [place] heart Associated angina: angina presence unspecified Qualified Code(s): I25.10 - Atherosclerotic heart disease of [place] coronary artery without angina pectoris Is this a current diagnosis for this admission?: Yes (6) Physical deconditioning Is this a current diagnosis for this admission?: Yes (7) Urinary tract infection Qualifiers: Urinary tract infection type: site unspecified Hematuria presence: without hematuria Qualified Code(s): N39.0 - Urinary tract infection, site not specified Is this a current diagnosis for this admission?: Yes (8) Enterococcus UTI Is this a current diagnosis for this admission?: Yes (9) Non-ST elevated myocardial infarction Is this a current diagnosis for this admission?: Yes (10) Hypotension Qualifiers: Hypotension type: other hypotension type Qualified Code(s): I95.89 - Other hypotension Is this a current diagnosis for this admission?: Yes (11) Acute chronic obstructive pulmonary disease with respiratory distress Is this a current diagnosis for this admission?: Yes (12) Diabetes mellitus Qualifiers: Diabetes mellitus type: type 2 Diabetes mellitus complication status: with neurologic complications Diabetes mellitus complication detail: with polyneuropathy Diabetes mellitus [facility] insulin use: with [facility] use Qualified Code(s): E11.42 - Type 2 diabetes mellitus with diabetic polyneuropathy Is this a current diagnosis for this admission?: Yes
[2016-12-04] MEDS: ATORVASTATIN CALCIUM 40 MG TABLET NG SCH (21:45)
[2016-12-05] MEDS: IPRATROPIUM/ALBUTEROL 0.5-2.5 MG/3 ML AMPUL NEB SCH ×4 (01:24→20:18)
[2016-12-05] MEDS: GABAPENTIN 300 MG CAPSULE NG SCH ×2 (05:08→11:31)
[2016-12-05] MEDS: TRAMADOL HCL 50 MG TABLET PO PRN ×3 (06:12→20:35)
[2016-12-05] MEDS: INSULIN DETEMIR 100 UNIT/ML 3 ML PEN SUBCUT SCH ×2 (10:00→21:50)
[2016-12-05] MEDS: METOPROLOL SUCCINATE 25 MG TAB.SR.24H PO SCH (10:01)
[2016-12-05] MEDS: SERTRALINE HCL 50 MG TABLET NG SCH (10:01)
[2016-12-05] MEDS: CLOPIDOGREL BISULFATE 75 MG TABLET NG SCH (10:01)
[2016-12-05] MEDS: RANOLAZINE 500 MG TAB.SR.12H PO SCH ×2 (10:02→21:15)
[2016-12-05] MEDS: LISINOPRIL 5 MG TABLET NG SCH (10:02)
[2016-12-05] MEDS: ASPIRIN 81 MG TABLET, CHEWABLE NG SCH (10:02)
[2016-12-05] MEDS: NYSTATIN CREAM 15 GM TP SCH ×2 (10:09→21:16)
[2016-12-05] MEDS: INSULIN REG, HUMAN 100 UNIT/ML 3 ML VIAL (PYX) SUBCUT PRN ×3 (11:31→21:51)
[2016-12-05] MEDS ORDERED: ACETAMINOPHEN 325 MG TABLET PO PRN (14:00)
[2016-12-05] MEDS ORDERED: DEXTROSE 40% GEL 15 GM TUBE PO PRN ×2 (14:00)
[2016-12-05] MEDS ORDERED: INFLUENZA ADLT QUAD (36MOS+) 2017-18 VAC 0.5 ML SYR IM PRN (14:00)
[2016-12-05] MEDS: GABAPENTIN 300 MG CAPSULE PO SCH ×2 (18:02→23:42)
[2016-12-05] MEDS ORDERED: LIDOCAINE 2% JELLY 30 ML TUBE TOP PRN (19:00)
[2016-12-05] MEDS ORDERED: LIDOCAINE 2% JELLY 5 ML TUBE TOP PRN (19:33)
[2016-12-05] MEDS: ONDANSETRON HCL INJ/PF 4 MG/2 ML SDV IV PRN (21:13)
[2016-12-05] MEDS: ATORVASTATIN CALCIUM 40 MG TABLET PO SCH (21:14)
--- NOTE | 2016-12-05 23:03 | PDOC PROGRESS REPORT ---
Subjective Progress Note for:: 12/05/16 Subjective:: Patient awaiting skilled nursing placement, no new complaints Physical Exam Vital Signs: Temp Pulse Resp BP Pulse Ox 98.3 F 73 15 103/50 L 99 12/05/16 20:30 12/05/16 20:30 12/05/16 20:30 12/05/16 20:30 12/05/16 20:30 Intake & Output 12/04/16 12/05/16 12/06/16 06:59 06:59 06:59 Intake Total 1666 3060 690 Balance 1666 3060 690 Weight 119.7 kg 118.8 kg General appearance: PRESENT: no acute distress, well-developed, well-nourished Head exam: PRESENT: atraumatic, normocephalic Eye exam: PRESENT: conjunctiva pink, EOMI, PERRLA. ABSENT: scleral icterus Ear exam: PRESENT: normal external ear exam Mouth exam: PRESENT: moist, tongue midline Neck exam: PRESENT: full ROM Respiratory exam: PRESENT: clear to auscultation rolf Cardiovascular exam: PRESENT: RRR, +S1, +S2 Murmur grade: 3 Pulses: PRESENT: normal dorsalis pedis pul, +2 pedal pulses bilateral Vascular exam: PRESENT: normal capillary refill GI/Abdominal exam: PRESENT: normal bowel sounds, soft Rectal exam: PRESENT: deferred Neurological exam: PRESENT: alert, awake, oriented to person, oriented to place , oriented to time, oriented to situation, CN II-XII grossly intact Psychiatric exam: PRESENT: appropriate affect, normal mood. ABSENT: homicidal ideation, suicidal ideation Skin exam: PRESENT: dry, intact, warm. ABSENT: cyanosis, rash Results Laboratory Results: 11/29/16 05:15 11/30/16 05:58 11/07/16 11/07/16 11/07/16 18:12 18:12 18:12 Creatine Kinase 33 CK-MB (CK-2) 1.10 Troponin I 0.018 NT-Pro-B Natriuret Pep 2110 H 11/08/16 11/08/16 11/08/16 00:35 00:35 05:54 Creatine Kinase 40 CK-MB (CK-2) 1.24 1.48 Troponin I 0.014 0.016 NT-Pro-B Natriuret Pep 11/08/16 11/20/16 11/20/16 05:54 16:50 16:50 Creatine Kinase 30 51 CK-MB (CK-2) 2.04 Troponin I < 0.012 NT-Pro-B Natriuret Pep 11/21/16 11/21/16 11/21/16 14:30 14:30 22:30 Creatine Kinase 30 81 CK-MB (CK-2) 2.10 Troponin I 0.047 NT-Pro-B Natriuret Pep 11/21/16 11/22/16 11/23/16 22:30 06:30 05:20 Creatine Kinase CK-MB (CK-2) 8.19 H 7.63 H Troponin I 1.060 1.650 0.892 NT-Pro-B Natriuret Pep 11/23/16 11/23/16 11/23/16 12:07 12:07 19:58 Creatine Kinase 40 38 CK-MB (CK-2) 1.50 Troponin I 0.771 NT-Pro-B Natriuret Pep 11/23/16 11/24/16 11/24/16 19:58 04:35 04:35 Creatine Kinase 34 CK-MB (CK-2) 1.44 0.95 Troponin I 0.702 0.713 NT-Pro-B Natriuret Pep Impressions: Guidance Fluoroscopy 11/08/16 00:00 IMPRESSION: SUCCESSFUL PLACEMENT OF A 5 FR DUAL LUMEN 44 CM PICC IN THE LEFT BASILIC VEIN. Interventional Vascular Procedure 11/08/16 00:00 IMPRESSION: SUCCESSFUL PLACEMENT OF A 5 FR DUAL LUMEN 44 CM PICC IN THE LEFT BASILIC VEIN. PICC Line Insertion 11/08/16 00:00 IMPRESSION: SUCCESSFUL PLACEMENT OF A 5 FR DUAL LUMEN 44 CM PICC IN THE LEFT BASILIC VEIN. Knee X-Ray 11/10/16 00:00 IMPRESSION: NEGATIVE STUDY OF THE LEFT KNEE. NO RADIOGRAPHIC EVIDENCE OF ACUTE INJURY. Lumbar Spine X-Ray 11/10/16 00:00 IMPRESSION: Possible new minimal compression fractures of L2 and L5. Generalized osteopenia. Chronic T12 compression fracture. Lumbar Spine MRI 11/13/16 00:00 IMPRESSION: No acute findings in the lumbar spine. Chest X-Ray 11/28/16 06:00 IMPRESSION: Stable cardiomegaly. No acute infiltrates Assessment & Plan - Diagnosis (1) Acute hypercapnic respiratory failure Is this a current diagnosis for this admission?: Yes (2) Diabetes mellitus type 2 in obese Is this a current diagnosis for this admission?: Yes (3) Peripheral vascular disease Is this a current diagnosis for this admission?: Yes (4) COPD (chronic obstructive pulmonary disease) Qualifiers: COPD type: COPD with acute exacerbation Qualified Code(s): J44.1 - Chronic obstructive pulmonary disease with (acute) exacerbation Is this a current diagnosis for this admission?: Yes (5) Coronary artery disease Qualifiers: Coronary Disease-Associated Artery/Lesion type: [place] artery [place] vs. transplanted heart: [place] heart Associated angina: angina presence unspecified Qualified Code(s): I25.10 - Atherosclerotic heart disease of [place] coronary artery without angina pectoris Is this a current diagnosis for this admission?: Yes (6) Physical deconditioning Is this a current diagnosis for this admission?: Yes (7) Urinary tract infection Qualifiers: Urinary tract infection type: site unspecified Hematuria presence: without hematuria Qualified Code(s): N39.0 - Urinary tract infection, site not specified Is this a current diagnosis for this admission?: Yes (8) Enterococcus UTI Is this a current diagnosis for this admission?: Yes (9) Non-ST elevated myocardial infarction Is this a current diagnosis for this admission?: Yes (10) Hypotension Qualifiers: Hypotension type: other hypotension type Qualified Code(s): I95.89 - Other hypotension Is this a current diagnosis for this admission?: Yes (11) Acute chronic obstructive pulmonary disease with respiratory distress Is this a current diagnosis for this admission?: Yes (12) Diabetes mellitus Qualifiers: Diabetes mellitus type: type 2 Diabetes mellitus complication status: with neurologic complications Diabetes mellitus complication detail: with polyneuropathy Diabetes mellitus superintendent terminal insulin use: with penitentiary use Qualified Code(s): E11.42 - Type 2 diabetes mellitus with diabetic polyneuropathy Is this a current diagnosis for this admission?: Yes
[2016-12-06] MEDS: IPRATROPIUM/ALBUTEROL 0.5-2.5 MG/3 ML AMPUL NEB SCH ×4 (01:34→19:32)
[2016-12-06] MEDS: GABAPENTIN 300 MG CAPSULE PO SCH ×3 (05:22→17:43)
[2016-12-06] MEDS: TRAMADOL HCL 50 MG TABLET PO PRN ×2 (07:41→17:43)
[2016-12-06] MEDS: LISINOPRIL 5 MG TABLET PO SCH (09:44)
[2016-12-06] MEDS: METOPROLOL SUCCINATE 25 MG TAB.SR.24H PO SCH (09:45)
[2016-12-06] MEDS: SERTRALINE HCL 50 MG TABLET PO SCH (09:45)
[2016-12-06] MEDS: CLOPIDOGREL BISULFATE 75 MG TABLET PO SCH (09:45)
[2016-12-06] MEDS: RANOLAZINE 500 MG TAB.SR.12H PO SCH ×2 (09:46→21:36)
[2016-12-06] MEDS: ASPIRIN 81 MG TABLET, CHEWABLE PO SCH (09:46)
[2016-12-06] MEDS: NYSTATIN CREAM 15 GM TP SCH ×2 (09:48→21:36)
[2016-12-06] MEDS: INSULIN DETEMIR 100 UNIT/ML 3 ML PEN SUBCUT SCH ×2 (09:56→22:17)
[2016-12-06] MEDS: INSULIN REG, HUMAN 100 UNIT/ML 3 ML VIAL (PYX) SUBCUT PRN ×3 (12:22→22:17)
[2016-12-06] MEDS: ONDANSETRON HCL INJ/PF 4 MG/2 ML SDV IV PRN (18:45)
--- NOTE | 2016-12-06 21:21 | PDOC PROGRESS REPORT ---
Subjective Progress Note for:: 12/06/16 Subjective:: Patient was seen by the bedside no new complaints Physical Exam Vital Signs: Temp Pulse Resp BP Pulse Ox 98.3 F 81 17 101/50 L 97 12/06/16 20:00 12/06/16 20:00 12/06/16 20:00 12/06/16 20:00 12/06/16 20:00 Intake & Output 12/05/16 12/06/16 12/07/16 06:59 06:59 06:59 Intake Total 3060 1720 660 Balance 3060 1720 660 Weight 118.8 kg 118.5 kg General appearance: PRESENT: no acute distress, well-developed, well-nourished Head exam: PRESENT: atraumatic, normocephalic Eye exam: PRESENT: conjunctiva pink, EOMI, PERRLA. ABSENT: scleral icterus Ear exam: PRESENT: normal external ear exam Mouth exam: PRESENT: moist, tongue midline Neck exam: PRESENT: full ROM Respiratory exam: PRESENT: clear to auscultation rolf Cardiovascular exam: PRESENT: RRR, +S1, +S2 Murmur grade: 3 Pulses: PRESENT: normal dorsalis pedis pul, +2 pedal pulses bilateral Vascular exam: PRESENT: normal capillary refill GI/Abdominal exam: PRESENT: normal bowel sounds, soft. ABSENT: distended, guarding, mass, organolmegaly, rebound, tenderness Rectal exam: PRESENT: deferred Neurological exam: PRESENT: alert, awake, oriented to person, oriented to place , oriented to time, oriented to situation, CN II-XII grossly intact. ABSENT: motor sensory deficit Psychiatric exam: PRESENT: appropriate affect, normal mood. ABSENT: homicidal ideation, suicidal ideation Skin exam: PRESENT: dry, intact, warm. ABSENT: cyanosis, rash Results Laboratory Results: 11/29/16 05:15 11/30/16 05:58 11/07/16 11/07/16 11/07/16 18:12 18:12 18:12 Creatine Kinase 33 CK-MB (CK-2) 1.10 Troponin I 0.018 NT-Pro-B Natriuret Pep 2110 H 11/08/16 11/08/16 11/08/16 00:35 00:35 05:54 Creatine Kinase 40 CK-MB (CK-2) 1.24 1.48 Troponin I 0.014 0.016 NT-Pro-B Natriuret Pep 11/08/16 11/20/16 11/20/16 05:54 16:50 16:50 Creatine Kinase 30 51 CK-MB (CK-2) 2.04 Troponin I < 0.012 NT-Pro-B Natriuret Pep 11/21/16 11/21/16 11/21/16 14:30 14:30 22:30 Creatine Kinase 30 81 CK-MB (CK-2) 2.10 Troponin I 0.047 NT-Pro-B Natriuret Pep 11/21/16 11/22/16 11/23/16 22:30 06:30 05:20 Creatine Kinase CK-MB (CK-2) 8.19 H 7.63 H Troponin I 1.060 1.650 0.892 NT-Pro-B Natriuret Pep 11/23/16 11/23/16 11/23/16 12:07 12:07 19:58 Creatine Kinase 40 38 CK-MB (CK-2) 1.50 Troponin I 0.771 NT-Pro-B Natriuret Pep 11/23/16 11/24/16 11/24/16 19:58 04:35 04:35 Creatine Kinase 34 CK-MB (CK-2) 1.44 0.95 Troponin I 0.702 0.713 NT-Pro-B Natriuret Pep Impressions: Guidance Fluoroscopy 11/08/16 00:00 IMPRESSION: SUCCESSFUL PLACEMENT OF A 5 FR DUAL LUMEN 44 CM PICC IN THE LEFT BASILIC VEIN. Interventional Vascular Procedure 11/08/16 00:00 IMPRESSION: SUCCESSFUL PLACEMENT OF A 5 FR DUAL LUMEN 44 CM PICC IN THE LEFT BASILIC VEIN. PICC Line Insertion 11/08/16 00:00 IMPRESSION: SUCCESSFUL PLACEMENT OF A 5 FR DUAL LUMEN 44 CM PICC IN THE LEFT BASILIC VEIN. Knee X-Ray 11/10/16 00:00 IMPRESSION: NEGATIVE STUDY OF THE LEFT KNEE. NO RADIOGRAPHIC EVIDENCE OF ACUTE INJURY. Lumbar Spine X-Ray 11/10/16 00:00 IMPRESSION: Possible new minimal compression fractures of L2 and L5. Generalized osteopenia. Chronic T12 compression fracture. Lumbar Spine MRI 11/13/16 00:00 IMPRESSION: No acute findings in the lumbar spine. Chest X-Ray 11/28/16 06:00 IMPRESSION: Stable cardiomegaly. No acute infiltrates Assessment & Plan - Diagnosis (1) Acute hypercapnic respiratory failure Is this a current diagnosis for this admission?: Yes (2) Diabetes mellitus type 2 in obese Is this a current diagnosis for this admission?: Yes (3) Peripheral vascular disease Is this a current diagnosis for this admission?: Yes (4) COPD (chronic obstructive pulmonary disease) Qualifiers: COPD type: COPD with acute exacerbation Qualified Code(s): J44.1 - Chronic obstructive pulmonary disease with (acute) exacerbation Is this a current diagnosis for this admission?: Yes (5) Coronary artery disease Qualifiers: Coronary Disease-Associated Artery/Lesion type: [place] artery [place] vs. transplanted heart: [place] heart Associated angina: angina presence unspecified Qualified Code(s): I25.10 - Atherosclerotic heart disease of [place] coronary artery without angina pectoris Is this a current diagnosis for this admission?: Yes (6) Physical deconditioning Is this a current diagnosis for this admission?: Yes (7) Urinary tract infection Qualifiers: Urinary tract infection type: site unspecified Hematuria presence: without hematuria Qualified Code(s): N39.0 - Urinary tract infection, site not specified Is this a current diagnosis for this admission?: Yes (8) Enterococcus UTI Is this a current diagnosis for this admission?: Yes (9) Non-ST elevated myocardial infarction Is this a current diagnosis for this admission?: Yes (10) Hypotension Qualifiers: Hypotension type: other hypotension type Qualified Code(s): I95.89 - Other hypotension Is this a current diagnosis for this admission?: Yes (11) Acute chronic obstructive pulmonary disease with respiratory distress Is this a current diagnosis for this admission?: Yes (12) Diabetes mellitus Qualifiers: Diabetes mellitus type: type 2 Diabetes mellitus complication status: with neurologic complications Diabetes mellitus complication detail: with polyneuropathy Diabetes mellitus longterm insulin use: with [employer] use Qualified Code(s): E11.42 - Type 2 diabetes mellitus with diabetic polyneuropathy Is this a current diagnosis for this admission?: Yes
[2016-12-06] MEDS: ATORVASTATIN CALCIUM 40 MG TABLET PO SCH (21:36)
[2016-12-07] MEDS: GABAPENTIN 300 MG CAPSULE PO SCH ×4 (00:18→17:42)
[2016-12-07] MEDS: IPRATROPIUM/ALBUTEROL 0.5-2.5 MG/3 ML AMPUL NEB SCH ×4 (01:51→19:52)
[2016-12-07] MEDS: INSULIN REG, HUMAN 100 UNIT/ML 3 ML VIAL (PYX) SUBCUT PRN ×2 (08:54→13:47)
--- NOTE | 2016-12-07 11:31 | PDOC PROGRESS REPORT ---
Subjective Progress Note for:: 12/07/16 Subjective:: Patient is currently doing well. Patient's denied any chest pain denied any shortness of the breath Physical Exam Vital Signs: Temp Pulse Resp BP Pulse Ox 98.3 F 89 18 127/61 H 93 12/07/16 07:31 12/07/16 08:52 12/07/16 08:52 12/07/16 07:31 12/07/16 08:52 Intake & Output 12/06/16 12/07/16 12/08/16 06:59 06:59 06:59 Intake Total 1720 1250 Balance 1720 1250 Weight 118.5 kg 118.5 kg General appearance: PRESENT: no acute distress, well-developed, well-nourished Head exam: PRESENT: atraumatic, normocephalic Eye exam: PRESENT: conjunctiva pink, EOMI, PERRLA. ABSENT: scleral icterus Ear exam: PRESENT: normal external ear exam Mouth exam: PRESENT: moist, tongue midline Neck exam: PRESENT: full ROM. ABSENT: carotid bruit, JVD, lymphadenopathy, thyromegaly Respiratory exam: PRESENT: clear to auscultation rolf Cardiovascular exam: PRESENT: RRR. ABSENT: diastolic murmur, rubs, systolic murmur Murmur grade: 3 Pulses: PRESENT: normal dorsalis pedis pul, +2 pedal pulses bilateral Vascular exam: PRESENT: normal capillary refill GI/Abdominal exam: PRESENT: normal bowel sounds, soft. ABSENT: distended, guarding, mass, organolmegaly, rebound, tenderness Rectal exam: PRESENT: deferred Extremities exam: ABSENT: pedal edema Neurological exam: PRESENT: alert, awake, oriented to person, oriented to place , oriented to time, oriented to situation, CN II-XII grossly intact. ABSENT: motor sensory deficit Psychiatric exam: PRESENT: appropriate affect, normal mood. ABSENT: homicidal ideation, suicidal ideation Skin exam: PRESENT: dry, intact, warm. ABSENT: cyanosis, rash Results Laboratory Results: 11/29/16 05:15 11/30/16 05:58 11/07/16 11/07/16 11/07/16 18:12 18:12 18:12 Creatine Kinase 33 CK-MB (CK-2) 1.10 Troponin I 0.018 NT-Pro-B Natriuret Pep 2110 H 11/08/16 11/08/16 11/08/16 00:35 00:35 05:54 Creatine Kinase 40 CK-MB (CK-2) 1.24 1.48 Troponin I 0.014 0.016 NT-Pro-B Natriuret Pep 11/08/16 11/20/16 11/20/16 05:54 16:50 16:50 Creatine Kinase 30 51 CK-MB (CK-2) 2.04 Troponin I < 0.012 NT-Pro-B Natriuret Pep 11/21/16 11/21/16 11/21/16 14:30 14:30 22:30 Creatine Kinase 30 81 CK-MB (CK-2) 2.10 Troponin I 0.047 NT-Pro-B Natriuret Pep 11/21/16 11/22/16 11/23/16 22:30 06:30 05:20 Creatine Kinase CK-MB (CK-2) 8.19 H 7.63 H Troponin I 1.060 1.650 0.892 NT-Pro-B Natriuret Pep 11/23/16 11/23/16 11/23/16 12:07 12:07 19:58 Creatine Kinase 40 38 CK-MB (CK-2) 1.50 Troponin I 0.771 NT-Pro-B Natriuret Pep 11/23/16 11/24/16 11/24/16 19:58 04:35 04:35 Creatine Kinase 34 CK-MB (CK-2) 1.44 0.95 Troponin I 0.702 0.713 NT-Pro-B Natriuret Pep Impressions: Guidance Fluoroscopy 11/08/16 00:00 IMPRESSION: SUCCESSFUL PLACEMENT OF A 5 FR DUAL LUMEN 44 CM PICC IN THE LEFT BASILIC VEIN. Interventional Vascular Procedure 11/08/16 00:00 IMPRESSION: SUCCESSFUL PLACEMENT OF A 5 FR DUAL LUMEN 44 CM PICC IN THE LEFT BASILIC VEIN. PICC Line Insertion 11/08/16 00:00 IMPRESSION: SUCCESSFUL PLACEMENT OF A 5 FR DUAL LUMEN 44 CM PICC IN THE LEFT BASILIC VEIN. Knee X-Ray 11/10/16 00:00 IMPRESSION: NEGATIVE STUDY OF THE LEFT KNEE. NO RADIOGRAPHIC EVIDENCE OF ACUTE INJURY. Lumbar Spine X-Ray 11/10/16 00:00 IMPRESSION: Possible new minimal compression fractures of L2 and L5. Generalized osteopenia. Chronic T12 compression fracture. Lumbar Spine MRI 11/13/16 00:00 IMPRESSION: No acute findings in the lumbar spine. Chest X-Ray 11/28/16 06:00 IMPRESSION: Stable cardiomegaly. No acute infiltrates Assessment & Plan - Diagnosis (1) Acute chronic obstructive pulmonary disease with respiratory distress Is this a current diagnosis for this admission?: Yes Plan: Continue current medication will get the ABG today (2) Coronary artery disease Qualifiers: Coronary Disease-Associated Artery/Lesion type: [place] artery [place] vs. transplanted heart: [place] heart Associated angina: angina presence unspecified Qualified Code(s): I25.10 - Atherosclerotic heart disease of [place] coronary artery without angina pectoris Is this a current diagnosis for this admission?: Yes Plan: Patient recently in the [facility] and all workup was stable (3) Diabetes mellitus type 2 in obese Is this a current diagnosis for this admission?: Yes Plan: Continues to sliding scale (4) E. coli UTI Is this a current diagnosis for this admission?: Yes Plan: Continues to antibiotic (5) Narcotic dependence Is this a current diagnosis for this admission?: Yes Plan: Is currently on tramadol (6) Sleep apnea syndrome Is this a current diagnosis for this admission?: Yes Plan: The CPAP at night (7) Coronary artery disease Qualifiers: Coronary Disease-Associated Artery/Lesion type: [place] artery [place] vs. 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
[2016-12-07] MEDS: METOPROLOL SUCCINATE 25 MG TAB.SR.24H PO SCH (13:34)
[2016-12-07] MEDS: LISINOPRIL 5 MG TABLET PO SCH (13:35)
[2016-12-07] MEDS: SERTRALINE HCL 50 MG TABLET PO SCH (13:35)
[2016-12-07] MEDS: CLOPIDOGREL BISULFATE 75 MG TABLET PO SCH (13:35)
[2016-12-07] MEDS: ASPIRIN 81 MG TABLET, CHEWABLE PO SCH (13:36)
[2016-12-07] MEDS: RANOLAZINE 500 MG TAB.SR.12H PO SCH ×2 (13:37→22:01)
[2016-12-07] MEDS: INSULIN DETEMIR 100 UNIT/ML 3 ML PEN SUBCUT SCH (13:37)
[2016-12-07] MEDS: NYSTATIN CREAM 15 GM TP SCH (13:52)
[2016-12-07] MEDS: ATORVASTATIN CALCIUM 40 MG TABLET PO SCH (22:01)
[2016-12-07] MEDS: ONDANSETRON HCL INJ/PF 4 MG/2 ML SDV IV PRN (22:10)
[2016-12-08] MEDS: GABAPENTIN 300 MG CAPSULE PO SCH ×4 (00:24→18:52)
[2016-12-08] MEDS: IPRATROPIUM/ALBUTEROL 0.5-2.5 MG/3 ML AMPUL NEB SCH ×4 (02:03→21:01)
[2016-12-08 06:48] LABS: ABSOLUTE EOSINOPHILS # (AUTO) 0.1 10^3/uL (0.0-0.6); ABSOLUTE MONOCYTES (AUTO) 0.5 10^3/uL (0.1-1.4); ABSOLUTE NEUT (AUTO) 4.9 10^3/uL (1.7-8.2); BASOPHILS % (AUTO) 0.5 % (0-2); EOSINOPHILS % (AUTO) 2.1 % (0-6); HEMATOCRIT 28.6 % (36.0-47.0); HEMOGLOBIN 9.3 g/dL (12.0-15.5); HGB HCT DIFFERENCE -0.7; LYMPHOCYTES % (AUTO) 15.4 % (13-45); MEAN CORPUSCULAR HEMOGLOBIN 28.5 pg (27.0-33.4); MEAN CORPUSCULAR HGB CONC 32.4 g/dL (32.0-36.0); MEAN CORPUSCULAR VOLUME 88 fl (80-97); MONOCYTES % (AUTO) 7.5 % (3-13); RED BLOOD COUNT 3.25 10^6/uL (3.72-5.28); RED CELL DISTRIBUTION WIDTH 15.1 % (11.5-14.0); SEGMENTED NEUTROPHILS % (AUTO) 74.5 % (42-78); WHITE BLOOD COUNT 6.5 10^3/uL (4.0-10.5)
[2016-12-08 06:59] LABS: ANION GAP 7 (5-19); BLOOD UREA NITROGEN 16 mg/dL (7-20); CALCIUM 8.4 mg/dL (8.4-10.2); CARBON DIOXIDE 32 mmol/L (22-30); CHLORIDE 104 mmol/L (98-107); CREATININE RESULT 0.49 mg/dL (0.52-1.25); GLUCOSE 175 mg/dL (75-110); POTASSIUM 4.3 mmol/L (3.6-5.0)
[2016-12-08] MEDS ORDERED: DEXTROSE 50%-WATER 25 GM/50 ML DISP.SYRIN IV PRN ×2 (08:12)
[2016-12-08] MEDS: LISINOPRIL 5 MG TABLET PO SCH (09:21)
[2016-12-08] MEDS: RANOLAZINE 500 MG TAB.SR.12H PO SCH ×2 (09:21→22:05)
[2016-12-08] MEDS: METOPROLOL SUCCINATE 25 MG TAB.SR.24H PO SCH (09:23)
[2016-12-08] MEDS: CLOPIDOGREL BISULFATE 75 MG TABLET PO SCH (09:23)
[2016-12-08] MEDS: SERTRALINE HCL 50 MG TABLET PO SCH (09:24)
[2016-12-08] MEDS: TRAMADOL HCL 50 MG TABLET PO PRN ×2 (09:24→20:49)
[2016-12-08] MEDS: ASPIRIN 81 MG TABLET, CHEWABLE PO SCH (09:24)
[2016-12-08] MEDS: INSULIN DETEMIR 100 UNIT/ML 3 ML PEN SUBCUT SCH ×2 (09:29→22:05)
--- NOTE | 2016-12-08 14:06 | PDOC PROGRESS REPORT ---
Subjective Progress Note for:: 12/08/16 Subjective:: Patient is currently doing well. Patient's denied any chest pain without any shortness of the breath Physical Exam Vital Signs: Temp Pulse Resp BP Pulse Ox 98.5 F 82 19 143/50 H 96 12/08/16 11:18 12/08/16 11:18 12/08/16 11:18 12/08/16 11:18 12/08/16 11:18 Intake & Output 12/07/16 12/08/16 12/09/16 06:59 06:59 06:59 Intake Total 1250 2033 Output Total 900 Balance 1250 1133 Weight 118.5 kg 118.5 kg General appearance: PRESENT: no acute distress, well-developed, well-nourished Head exam: PRESENT: atraumatic, normocephalic Eye exam: PRESENT: conjunctiva pink, EOMI, PERRLA. ABSENT: scleral icterus Ear exam: PRESENT: normal external ear exam Mouth exam: PRESENT: moist, tongue midline Neck exam: PRESENT: full ROM. ABSENT: carotid bruit, JVD, lymphadenopathy, thyromegaly Respiratory exam: PRESENT: clear to auscultation rolf Cardiovascular exam: PRESENT: RRR. ABSENT: diastolic murmur, rubs, systolic murmur Murmur grade: 3 Pulses: PRESENT: normal dorsalis pedis pul, +2 pedal pulses bilateral Vascular exam: PRESENT: normal capillary refill GI/Abdominal exam: PRESENT: normal bowel sounds, soft. ABSENT: distended, guarding, mass, organolmegaly, rebound, tenderness Rectal exam: PRESENT: deferred Extremities exam: ABSENT: pedal edema Neurological exam: PRESENT: alert, awake, oriented to person, oriented to place , oriented to time, oriented to situation, CN II-XII grossly intact. ABSENT: motor sensory deficit Psychiatric exam: PRESENT: appropriate affect, normal mood. ABSENT: homicidal ideation, suicidal ideation Skin exam: PRESENT: dry, intact, warm. ABSENT: cyanosis, rash Results Laboratory Results: 12/08/16 06:25 12/08/16 06:25 12/08/16 12/08/16 06:25 06:25 WBC 6.5 RBC 3.25 L Hgb 9.3 L Hct 28.6 L MCV 88 MCH 28.5 MCHC 32.4 RDW 15.1 H Plt Count 295 Seg Neutrophils % 74.5 Lymphocytes % 15.4 Monocytes % 7.5 Eosinophils % 2.1 Basophils % 0.5 Absolute Neutrophils 4.9 Absolute Lymphocytes 1.0 Absolute Monocytes 0.5 Absolute Eosinophils 0.1 Absolute Basophils 0.0 Sodium 143.0 Potassium 4.3 Chloride 104 Carbon Dioxide 32 H Anion Gap 7 BUN 16 Creatinine 0.49 L Est GFR ( Amer) > 60 Est GFR (Non-Af Amer) > 60 Glucose 175 H Calcium 8.4 11/07/16 11/07/16 11/07/16 18:12 18:12 18:12 Creatine Kinase 33 CK-MB (CK-2) 1.10 Troponin I 0.018 NT-Pro-B Natriuret Pep 2110 H 11/08/16 11/08/16 11/08/16 00:35 00:35 05:54 Creatine Kinase 40 CK-MB (CK-2) 1.24 1.48 Troponin I 0.014 0.016 NT-Pro-B Natriuret Pep 11/08/16 11/20/16 11/20/16 05:54 16:50 16:50 Creatine Kinase 30 51 CK-MB (CK-2) 2.04 Troponin I < 0.012 NT-Pro-B Natriuret Pep 11/21/16 11/21/16 11/21/16 14:30 14:30 22:30 Creatine Kinase 30 81 CK-MB (CK-2) 2.10 Troponin I 0.047 NT-Pro-B Natriuret Pep 11/21/16 11/22/16 11/23/16 22:30 06:30 05:20 Creatine Kinase CK-MB (CK-2) 8.19 H 7.63 H Troponin I 1.060 1.650 0.892 NT-Pro-B Natriuret Pep 11/23/16 11/23/16 11/23/16 12:07 12:07 19:58 Creatine Kinase 40 38 CK-MB (CK-2) 1.50 Troponin I 0.771 NT-Pro-B Natriuret Pep 11/23/16 11/24/16 11/24/16 19:58 04:35 04:35 Creatine Kinase 34 CK-MB (CK-2) 1.44 0.95 Troponin I 0.702 0.713 NT-Pro-B Natriuret Pep Impressions: Guidance Fluoroscopy 11/08/16 00:00 IMPRESSION: SUCCESSFUL PLACEMENT OF A 5 FR DUAL LUMEN 44 CM PICC IN THE LEFT BASILIC VEIN. Interventional Vascular Procedure 11/08/16 00:00 IMPRESSION: SUCCESSFUL PLACEMENT OF A 5 FR DUAL LUMEN 44 CM PICC IN THE LEFT BASILIC VEIN. PICC Line Insertion 11/08/16 00:00 IMPRESSION: SUCCESSFUL PLACEMENT OF A 5 FR DUAL LUMEN 44 CM PICC IN THE LEFT BASILIC VEIN. Knee X-Ray 11/10/16 00:00 IMPRESSION: NEGATIVE STUDY OF THE LEFT KNEE. NO RADIOGRAPHIC EVIDENCE OF ACUTE INJURY. Lumbar Spine X-Ray 11/10/16 00:00 IMPRESSION: Possible new minimal compression fractures of L2 and L5. Generalized osteopenia. Chronic T12 compression fracture. Lumbar Spine MRI 11/13/16 00:00 IMPRESSION: No acute findings in the lumbar spine. Chest X-Ray 11/28/16 06:00 IMPRESSION: Stable cardiomegaly. No acute infiltrates Assessment & Plan - Diagnosis (1) Acute chronic obstructive pulmonary disease with respiratory distress Is this a current diagnosis for this admission?: Yes Plan: Continue current medication will get the ABG today (2) Coronary artery disease Qualifiers: Coronary Disease-Associated Artery/Lesion type: [place] artery [place] vs. transplanted heart: [place] heart Associated angina: angina presence unspecified Qualified Code(s): I25.10 - Atherosclerotic heart disease of [place] coronary artery without angina pectoris Is this a current diagnosis for this admission?: Yes Plan: Patient recently in the [facility] and all workup was stable (3) Diabetes mellitus type 2 in obese Is this a current diagnosis for this admission?: Yes Plan: Continues to sliding scale (4) E. coli UTI Is this a current diagnosis for this admission?: Yes Plan: Continues to antibiotic (5) Narcotic dependence Is this a current diagnosis for this admission?: Yes Plan: Is currently on tramadol (6) Sleep apnea syndrome Is this a current diagnosis for this admission?: Yes Plan: The CPAP at night (7) Coronary artery disease Qualifiers: Coronary Disease-Associated Artery/Lesion type: [place] artery [place] vs. 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
[2016-12-08] MEDS: INSULIN REG, HUMAN 100 UNIT/ML 3 ML VIAL (PYX) SUBCUT PRN (16:55)
[2016-12-08] MEDS: ONDANSETRON HCL INJ/PF 4 MG/2 ML SDV IV PRN (20:49)
[2016-12-08] MEDS: ATORVASTATIN CALCIUM 40 MG TABLET PO SCH (22:05)
[2016-12-09] MEDS: GABAPENTIN 300 MG CAPSULE PO SCH ×5 (00:06→23:52)
[2016-12-09] MEDS: IPRATROPIUM/ALBUTEROL 0.5-2.5 MG/3 ML AMPUL NEB SCH ×4 (02:13→20:03)
[2016-12-09 06:59] LABS: ANION GAP 8 (5-19); BLOOD UREA NITROGEN 17 mg/dL (7-20); CALCIUM 8.5 mg/dL (8.4-10.2); CARBON DIOXIDE 33 mmol/L (22-30); CHLORIDE 103 mmol/L (98-107); CREATININE RESULT 0.62 mg/dL (0.52-1.25); GLUCOSE 308 mg/dL (75-110); POTASSIUM 4.2 mmol/L (3.6-5.0); SODIUM 143.5 mmol/L (137-145)
[2016-12-09] MEDS: INSULIN REG, HUMAN 100 UNIT/ML 3 ML VIAL (PYX) SUBCUT PRN (08:43)
[2016-12-09] MEDS: LISINOPRIL 5 MG TABLET PO SCH (12:51)
[2016-12-09] MEDS: METOPROLOL SUCCINATE 25 MG TAB.SR.24H PO SCH (12:52)
[2016-12-09] MEDS: CLOPIDOGREL BISULFATE 75 MG TABLET PO SCH (12:52)
[2016-12-09] MEDS: SERTRALINE HCL 50 MG TABLET PO SCH (12:53)
[2016-12-09] MEDS: ASPIRIN 81 MG TABLET, CHEWABLE PO SCH (12:53)
[2016-12-09] MEDS: RANOLAZINE 500 MG TAB.SR.12H PO SCH ×2 (12:54→22:14)
[2016-12-09] MEDS: INSULIN DETEMIR 100 UNIT/ML 3 ML PEN SUBCUT SCH ×2 (12:54→22:14)
[2016-12-09] MEDS: TRAMADOL HCL 50 MG TABLET PO PRN ×2 (18:18→23:52)
[2016-12-09] MEDS: ONDANSETRON HCL INJ/PF 4 MG/2 ML SDV IV PRN (18:18)
--- NOTE | 2016-12-09 20:49 | PDOC PROGRESS REPORT ---
Subjective Progress Note for:: 12/09/16 Subjective:: Patient was seen by the bedside no new complaints Physical Exam Vital Signs: Temp Pulse Resp BP Pulse Ox 99.1 F 82 23 H 124/49 L 95 12/09/16 19:23 12/09/16 19:23 12/09/16 19:23 12/09/16 19:23 12/09/16 19:23 Intake & Output 12/08/16 12/09/16 12/10/16 06:59 06:59 06:59 Intake Total 2033 1580 1860 Output Total 900 1100 1800 Balance 1133 480 60 Weight 118.5 kg 119.3 kg General appearance: PRESENT: no acute distress, well-developed, well-nourished Head exam: PRESENT: atraumatic, normocephalic Eye exam: PRESENT: conjunctiva pink, EOMI, PERRLA. ABSENT: scleral icterus Ear exam: PRESENT: normal external ear exam Mouth exam: PRESENT: moist, tongue midline Neck exam: PRESENT: full ROM. ABSENT: carotid bruit, JVD, lymphadenopathy, thyromegaly Cardiovascular exam: PRESENT: RRR. ABSENT: diastolic murmur, rubs, systolic murmur Murmur grade: 3 Pulses: PRESENT: normal dorsalis pedis pul, +2 pedal pulses bilateral Vascular exam: PRESENT: normal capillary refill GI/Abdominal exam: PRESENT: normal bowel sounds, soft. ABSENT: distended, guarding, mass, organolmegaly, rebound, tenderness Rectal exam: PRESENT: deferred Neurological exam: PRESENT: alert, awake, oriented to person, oriented to place , oriented to time, oriented to situation, CN II-XII grossly intact. ABSENT: motor sensory deficit Psychiatric exam: PRESENT: appropriate affect, normal mood. ABSENT: homicidal ideation, suicidal ideation Skin exam: PRESENT: dry, intact, warm. ABSENT: cyanosis, rash Results Laboratory Results: 12/08/16 06:25 12/09/16 05:40 12/09/16 05:40 Sodium 143.5 Potassium 4.2 Chloride 103 Carbon Dioxide 33 H Anion Gap 8 BUN 17 Creatinine 0.62 Est GFR ( Amer) > 60 Est GFR (Non-Af Amer) > 60 Glucose 308 H Calcium 8.5 11/07/16 11/07/16 11/07/16 18:12 18:12 18:12 Creatine Kinase 33 CK-MB (CK-2) 1.10 Troponin I 0.018 NT-Pro-B Natriuret Pep 2110 H 11/08/16 11/08/16 11/08/16 00:35 00:35 05:54 Creatine Kinase 40 CK-MB (CK-2) 1.24 1.48 Troponin I 0.014 0.016 NT-Pro-B Natriuret Pep 11/08/16 11/20/16 11/20/16 05:54 16:50 16:50 Creatine Kinase 30 51 CK-MB (CK-2) 2.04 Troponin I < 0.012 NT-Pro-B Natriuret Pep 11/21/16 11/21/16 11/21/16 14:30 14:30 22:30 Creatine Kinase 30 81 CK-MB (CK-2) 2.10 Troponin I 0.047 NT-Pro-B Natriuret Pep 11/21/16 11/22/16 11/23/16 22:30 06:30 05:20 Creatine Kinase CK-MB (CK-2) 8.19 H 7.63 H Troponin I 1.060 1.650 0.892 NT-Pro-B Natriuret Pep 11/23/16 11/23/16 11/23/16 12:07 12:07 19:58 Creatine Kinase 40 38 CK-MB (CK-2) 1.50 Troponin I 0.771 NT-Pro-B Natriuret Pep 11/23/16 11/24/16 11/24/16 19:58 04:35 04:35 Creatine Kinase 34 CK-MB (CK-2) 1.44 0.95 Troponin I 0.702 0.713 NT-Pro-B Natriuret Pep Impressions: Guidance Fluoroscopy 11/08/16 00:00 IMPRESSION: SUCCESSFUL PLACEMENT OF A 5 FR DUAL LUMEN 44 CM PICC IN THE LEFT BASILIC VEIN. Interventional Vascular Procedure 11/08/16 00:00 IMPRESSION: SUCCESSFUL PLACEMENT OF A 5 FR DUAL LUMEN 44 CM PICC IN THE LEFT BASILIC VEIN. PICC Line Insertion 11/08/16 00:00 IMPRESSION: SUCCESSFUL PLACEMENT OF A 5 FR DUAL LUMEN 44 CM PICC IN THE LEFT BASILIC VEIN. Knee X-Ray 11/10/16 00:00 IMPRESSION: NEGATIVE STUDY OF THE LEFT KNEE. NO RADIOGRAPHIC EVIDENCE OF ACUTE INJURY. Lumbar Spine X-Ray 11/10/16 00:00 IMPRESSION: Possible new minimal compression fractures of L2 and L5. Generalized osteopenia. Chronic T12 compression fracture. Lumbar Spine MRI 11/13/16 00:00 IMPRESSION: No acute findings in the lumbar spine. Chest X-Ray 11/28/16 06:00 IMPRESSION: Stable cardiomegaly. No acute infiltrates Assessment & Plan - Diagnosis (1) Acute hypercapnic respiratory failure Is this a current diagnosis for this admission?: Yes (2) Diabetes mellitus type 2 in obese Is this a current diagnosis for this admission?: Yes (3) Peripheral vascular disease Is this a current diagnosis for this admission?: Yes (4) COPD (chronic obstructive pulmonary disease) Qualifiers: COPD type: COPD with acute exacerbation Qualified Code(s): J44.1 - Chronic obstructive pulmonary disease with (acute) exacerbation Is this a current diagnosis for this admission?: Yes (5) Coronary artery disease Qualifiers: Coronary Disease-Associated Artery/Lesion type: [place] artery [place] vs. transplanted heart: [place] heart Associated angina: angina presence unspecified Qualified Code(s): I25.10 - Atherosclerotic heart disease of [place] coronary artery without angina pectoris Is this a current diagnosis for this admission?: Yes (6) Physical deconditioning Is this a current diagnosis for this admission?: Yes (7) Urinary tract infection Qualifiers: Urinary tract infection type: site unspecified Hematuria presence: without hematuria Qualified Code(s): N39.0 - Urinary tract infection, site not specified Is this a current diagnosis for this admission?: Yes (8) Enterococcus UTI Is this a current diagnosis for this admission?: Yes (9) Non-ST elevated myocardial infarction Is this a current diagnosis for this admission?: Yes (10) Hypotension Qualifiers: Hypotension type: other hypotension type Qualified Code(s): I95.89 - Other hypotension Is this a current diagnosis for this admission?: Yes (11) Acute chronic obstructive pulmonary disease with respiratory distress Is this a current diagnosis for this admission?: Yes (12) Diabetes mellitus Qualifiers: Diabetes mellitus type: type 2 Diabetes mellitus complication status: with neurologic complications Diabetes mellitus complication detail: with polyneuropathy Diabetes mellitus [facility]p insulin use: with [facility] use Qualified Code(s): E11.42 - Type 2 diabetes mellitus with diabetic polyneuropathy Is this a current diagnosis for this admission?: Yes
[2016-12-09] MEDS: ATORVASTATIN CALCIUM 40 MG TABLET PO SCH (22:15)
[2016-12-10 00:09] VITALS: BP 116/68
[2016-12-10] MEDS: IPRATROPIUM/ALBUTEROL 0.5-2.5 MG/3 ML AMPUL NEB SCH ×3 (02:04→14:35)
[2016-12-10] MEDS: GABAPENTIN 300 MG CAPSULE PO SCH ×3 (05:36→18:44)
[2016-12-10 09:13] LABS: ANION GAP 7 (5-19); BLOOD UREA NITROGEN 16 mg/dL (7-20); CALCIUM 8.5 mg/dL (8.4-10.2); CARBON DIOXIDE 34 mmol/L (22-30); CHLORIDE 102 mmol/L (98-107); CREATININE RESULT 0.63 mg/dL (0.52-1.25); GLUCOSE 122 mg/dL (75-110); SODIUM 142.5 mmol/L (137-145)
[2016-12-10] MEDS: LISINOPRIL 5 MG TABLET PO SCH (11:34)
[2016-12-10] MEDS: CLOPIDOGREL BISULFATE 75 MG TABLET PO SCH (11:34)
[2016-12-10] MEDS: SERTRALINE HCL 50 MG TABLET PO SCH (11:34)
[2016-12-10] MEDS: ASPIRIN 81 MG TABLET, CHEWABLE PO SCH (11:35)
[2016-12-10] MEDS: TRAMADOL HCL 50 MG TABLET PO PRN (11:35)
[2016-12-10] MEDS: METOPROLOL SUCCINATE 25 MG TAB.SR.24H PO SCH (11:35)
[2016-12-10] MEDS: RANOLAZINE 500 MG TAB.SR.12H PO SCH (11:35)
[2016-12-10] MEDS: ONDANSETRON HCL INJ/PF 4 MG/2 ML SDV IV PRN (12:34)
--- NOTE | 2016-12-10 13:11 | PDOC TRANSFER SUMMARY ---
General - Admit/Disc Date/PCP Admission Date/Primary Care Provider: 11/07/16 17:36 TANISHA POLLARD MD Discharge Date: 12/10/16 - Discharge Diagnosis (1) Acute hypercapnic respiratory failure Is this a current diagnosis for this admission?: Yes (2) Diabetes mellitus type 2 in obese Is this a current diagnosis for this admission?: Yes (3) Peripheral vascular disease Is this a current diagnosis for this admission?: Yes (4) COPD (chronic obstructive pulmonary disease) Is this a current diagnosis for this admission?: Yes (5) Coronary artery disease Is this a current diagnosis for this admission?: Yes (6) Physical deconditioning Is this a current diagnosis for this admission?: Yes (7) Urinary tract infection Is this a current diagnosis for this admission?: Yes (8) Enterococcus UTI Is this a current diagnosis for this admission?: Yes (9) Non-ST elevated myocardial infarction Is this a current diagnosis for this admission?: Yes (10) Hypotension Is this a current diagnosis for this admission?: Yes (11) Acute chronic obstructive pulmonary disease with respiratory distress Is this a current diagnosis for this admission?: Yes (12) Diabetes mellitus Is this a current diagnosis for this admission?: Yes - Additional Information Resuscitation Status: Do Not Resuscitate Discharge Diet: Diabetic Discharge Activity: Activity As Tolerated Home Medications: Albuterol Sulfate [Proair HFA] 2 puff IH Q4HP PRN 11/07/16 Aspirin [Aspirin 81 mg Chewable Tablet] 81 mg PO DAILY 11/07/16 Atorvastatin Calcium [Lipitor 40 mg Tablet] 40 mg PO QHS 11/07/16 Clopidogrel Bisulfate [Plavix 75 mg Tablet] 75 mg PO DAILY 11/07/16 Duloxetine HCl [Cymbalta] 60 mg PO DAILY 11/07/16 Fluticasone/Salmeterol [Advair 250-50 Diskus 14 Dose/Diskus] 1 inh IH Q12 Gabapentin [Neurontin 300 mg Capsule] 300 mg PO Q8 11/07/16 Insulin Aspart [Novolog Flexpen] 8 unit SQ TID 11/07/16 Insulin Detemir [Levemir Flextouch] 50 unit SQ BID 11/07/16 Lisinopril [Prinivil 2.5 mg Tablet] 2.5 mg PO DAILY 11/07/16 Magnesium Oxide [Magnesium] 400 mg PO DAILY 11/07/16 Melatonin [Melatin] 6 mg PO QHS 11/07/16 Metoprolol Succinate [Toprol Xl 50 mg Tab.sr] 50 mg PO DAILY 11/07/16 Pioglitazone HCl [Actos] 45 mg PO DAILY 11/07/16 Simethicone [Gas Relief 80] 80 mg PO QIDP PRN 11/07/16 Spironolactone [Aldactone 25 mg Tablet] 25 mg PO DAILY 11/07/16 Tiotropium [place] [Spiriva Handihaler 18 mcg/dose (30 Dose)] 1 cap IH DAILY Tramadol HCl/Acetaminophen [Ultracet 37.5 mg/325 mg Tablet] 1 each PO Q6 Metoprolol Succinate [Toprol Xl 25 mg Tab.sr] 25 mg PO DAILY tab.sr.24h Ranolazine [Ranexa 500 mg Tab.sr] 500 mg PO Q12 tab.sr.12h 12/10/16 Sertraline HCl [Zoloft 50 mg Tablet] 100 mg PO DAILY tablet 12/10/16 History of Present Illness Admission Date/PCP: 11/07/16 17:36 TANISHA POLLARD MD History of Present Illness: Patient was patient was discharged initially on 11/14. See that discharge summary for details Hospital Course Hospital Course: Patient was discharged initially on 11/14/2016, she was waiting for placement then she developed acute hypercapnic respiratory failure requiring mechanical ventilation, she was transferred to intensive care unit. She also sustained a non-ST elevated myocardial infarction, she was seen by cardiology, she was managed conservatively. She was treated with IV antibiotic in the intensive care unit hospital course was completed with pneumonia. She was also treated with IV Solu-Medrol. She ultimately was weaned off mechanical ventilation and transferred to the floor. She has been stable for over 2 weeks, she has been waiting for a bed for the last 2 weeks, she just got a place today for rehabilitation she is being transferred to care home today. Physical Exam Vital Signs: Temp Pulse Resp BP Pulse Ox 99.7 F 85 16 116/68 94 12/09/16 23:23 12/10/16 08:04 12/10/16 08:04 12/09/16 23:23 12/10/16 08:04 Intake & Output 12/09/16 12/10/16 12/11/16 06:59 06:59 06:59 Intake Total 1580 2060 Output Total 1100 1800 Balance 480 260 Weight 119.3 kg 119.3 kg General appearance: PRESENT: no acute distress, well-developed, well-nourished Head exam: PRESENT: atraumatic, normocephalic Eye exam: PRESENT: conjunctiva pink, EOMI, PERRLA Ear exam: PRESENT: normal external ear exam Mouth exam: PRESENT: moist, tongue midline Respiratory exam: PRESENT: clear to auscultation rolf Cardiovascular exam: PRESENT: RRR, +S1, +S2 Pulses: PRESENT: normal dorsalis pedis pul Vascular exam: PRESENT: normal capillary refill GI/Abdominal exam: PRESENT: normal bowel sounds, soft Rectal exam: PRESENT: deferred Extremities exam: PRESENT: full ROM Neurological exam: PRESENT: alert, CN II-XII grossly intact Psychiatric exam: PRESENT: appropriate affect, normal mood. ABSENT: homicidal ideation, suicidal ideation Skin exam: PRESENT: dry, intact, warm Results Laboratory Results: 12/08/16 06:25 12/10/16 08:40 12/10/16 12/10/16 08:15 08:40 Sodium Cancelled 142.5 Potassium Cancelled 4.0 Chloride Cancelled 102 Carbon Dioxide Cancelled 34 H Anion Gap Cancelled 7 BUN Cancelled 16 Creatinine Cancelled 0.63 Est GFR ( Amer) Cancelled > 60 Est GFR (Non-Af Amer) Cancelled > 60 Glucose Cancelled 122 H Calcium Cancelled 8.5 11/07/16 11/07/16 11/07/16 18:12 18:12 18:12 Creatine Kinase 33 CK-MB (CK-2) 1.10 Troponin I 0.018 NT-Pro-B Natriuret Pep 2110 H 11/08/16 11/08/16 11/08/16 00:35 00:35 05:54 Creatine Kinase 40 CK-MB (CK-2) 1.24 1.48 Troponin I 0.014 0.016 NT-Pro-B Natriuret Pep 11/08/16 11/20/16 11/20/16 05:54 16:50 16:50 Creatine Kinase 30 51 CK-MB (CK-2) 2.04 Troponin I < 0.012 NT-Pro-B Natriuret Pep 11/21/16 11/21/16 11/21/16 14:30 14:30 22:30 Creatine Kinase 30 81 CK-MB (CK-2) 2.10 Troponin I 0.047 NT-Pro-B Natriuret Pep 11/21/16 11/22/16 11/23/16 22:30 06:30 05:20 Creatine Kinase CK-MB (CK-2) 8.19 H 7.63 H Troponin I 1.060 1.650 0.892 NT-Pro-B Natriuret Pep 11/23/16 11/23/16 11/23/16 12:07 12:07 19:58 Creatine Kinase 40 38 CK-MB (CK-2) 1.50 Troponin I 0.771 NT-Pro-B Natriuret Pep 11/23/16 11/24/16 11/24/16 19:58 04:35 04:35 Creatine Kinase 34 CK-MB (CK-2) 1.44 0.95 Troponin I 0.702 0.713 NT-Pro-B Natriuret Pep Impressions: Guidance Fluoroscopy 11/08/16 00:00 IMPRESSION: SUCCESSFUL PLACEMENT OF A 5 FR DUAL LUMEN 44 CM PICC IN THE LEFT BASILIC VEIN. Interventional Vascular Procedure 11/08/16 00:00 IMPRESSION: SUCCESSFUL PLACEMENT OF A 5 FR DUAL LUMEN 44 CM PICC IN THE LEFT BASILIC VEIN. PICC Line Insertion 11/08/16 00:00 IMPRESSION: SUCCESSFUL PLACEMENT OF A 5 FR DUAL LUMEN 44 CM PICC IN THE LEFT BASILIC VEIN. Knee X-Ray 11/10/16 00:00 IMPRESSION: NEGATIVE STUDY OF THE LEFT KNEE. NO RADIOGRAPHIC EVIDENCE OF ACUTE INJURY. Lumbar Spine X-Ray 11/10/16 00:00 IMPRESSION: Possible new minimal compression fractures of L2 and L5. Generalized osteopenia. Chronic T12 compression fracture. Lumbar Spine MRI 11/13/16 00:00 IMPRESSION: No acute findings in the lumbar spine. Chest X-Ray 11/28/16 06:00 IMPRESSION: Stable cardiomegaly. No acute infiltrates
[2016-12-10] MEDS: INSULIN DETEMIR 100 UNIT/ML 3 ML PEN SUBCUT SCH (14:48)
== END 2016-12-10 19:23 | DRG 207 ==
LOC: ER 12:06 → EH 14:34 → UNDOADMIN 14:34 → 3S 16:30 → EH 16:30 → 3S 17:36 → ICU 11-20 17:07 → 4S 11-27 23:40
PROVIDERS: ADMIT Internal Medicine; ATTEND Internal Medicine
PROC: 5A09457 Assistance with Respiratory Ventilation, 24-96 Consecutive Hours, Continuous Positive Airway Pressure (ICD-10-PCS; 2016-11-07)
PROC: 02HV33Z Insertion of Infusion Device into Superior Vena Cava, Percutaneous Approach (ICD-10-PCS; 2016-11-08)
PROC: B548ZZA Ultrasonography of Superior Vena Cava, Guidance (ICD-10-PCS; 2016-11-08)
PROC: B518ZZA Fluoroscopy of Superior Vena Cava, Guidance (ICD-10-PCS; 2016-11-08)
PROC: 3E0F73Z Introduction of Anti-inflammatory into Respiratory Tract, Via Natural or Artificial Opening (ICD-10-PCS; 2016-11-09)
PROC: 5A1955Z Respiratory Ventilation, Greater than 96 Consecutive Hours (ICD-10-PCS; principal; 2016-11-20)
PROC: 0BH17EZ Insertion of Endotracheal Airway into Trachea, Via Natural or Artificial Opening (ICD-10-PCS; 2016-11-20)
DX: J96.22 Acute and chronic respiratory failure with hypercapnia (principal); I21.4 Non-ST elevation (NSTEMI) myocardial infarction; Z68.41 Body mass index [BMI] 40.0-44.9, adult; N39.0 Urinary tract infection, site not specified; J44.1 Chronic obstructive pulmonary disease with (acute) exacerbation; I42.9 Cardiomyopathy, unspecified; F11.20 Opioid dependence, uncomplicated; E66.9 Obesity, unspecified; E11.51 Type 2 diabetes mellitus with diabetic peripheral angiopathy without gangrene; I25.10 Atherosclerotic heart disease of native coronary artery without angina pectoris; B95.2 Enterococcus as the cause of diseases classified elsewhere; M85.80 Other specified disorders of bone density and structure, unspecified site; E78.5 Hyperlipidemia, unspecified; G47.30 Sleep apnea, unspecified; G43.909 Migraine, unspecified, not intractable, without status migrainosus; F32.9 Major depressive disorder, single episode, unspecified; F17.210 Nicotine dependence, cigarettes, uncomplicated; M19.90 Unspecified osteoarthritis, unspecified site; I44.7 Left bundle-branch block, unspecified; R00.0 Tachycardia, unspecified; B96.20 Unspecified Escherichia coli [E. coli] as the cause of diseases classified elsewhere; I50.9 Heart failure, unspecified; I11.0 Hypertensive heart disease with heart failure; F40.240 Claustrophobia; E11.42 Type 2 diabetes mellitus with diabetic polyneuropathy; M48.54XD Collapsed vertebra, not elsewhere classified, thoracic region, subsequent encounter for fracture with routine healing; I95.89 Other hypotension; Z79.82 Long term (current) use of aspirin; Z78.1 Physical restraint status; Z88.6 Allergy status to analgesic agent; Z79.4 Long term (current) use of insulin; Z79.899 Other long term (current) drug therapy; Z99.81 Dependence on supplemental oxygen; Z66 Do not resuscitate; Z86.14 Personal history of Methicillin resistant Staphylococcus aureus infection; Z95.5 Presence of coronary angioplasty implant and graft; Z90.49 Acquired absence of other specified parts of digestive tract; Z90.710 Acquired absence of both cervix and uterus; Z82.49 Family history of ischemic heart disease and other diseases of the circulatory system; Z84.1 Family history of disorders of kidney and ureter
CPT/HCPCS: 31500; 36415; 36569; 36600; 71010; 72110; 72148; 76937; 77001; 80048; 80053; 80061; 80076; 80307; 81001; 82140; 82150; 82550; 82553; 82803; 82962; 83036; 83605; 83690; 83735; 83880; 84100; 84134; 84439; 84443; 84484; 85025; 85027; 85379; 85610; 85730; 87040; 87070; 87086; 87088; 87186; 87205; 93005; 93010; 93306; 94002; 94003; 94640; 94660; 94799; 96365; 96375; 99285; J0295; J0330; J0610; J0713; J1170; J1642; J1650; J1815; J1940; J1956; J2060; J2250; J2270; J2405; J2704; J2920; J2930; J3475; J3490; J7030; J7060; J7620; J8499; S0028

== ENCOUNTER 2017-01-07 16:35 | Inpatient (IN) | payer MEDICAID ==
[2017-01-07] MEDS ORDERED: IPRATROPIUM/ALBUTEROL 0.5-2.5 MG/3 ML AMPUL NEB ONE (17:36)
[2017-01-07 17:41] LABS: ABSOLUTE EOSINOPHILS # (AUTO) 0.2 10^3/uL (0.0-0.6); ABSOLUTE LYMPHOCYTES (AUTO) 0.8 10^3/uL (0.5-4.7); ABSOLUTE MONOCYTES (AUTO) 0.7 10^3/uL (0.1-1.4); ABSOLUTE NEUT (AUTO) 6.4 10^3/uL (1.7-8.2); BASOPHILS % (AUTO) 0.4 % (0-2); EOSINOPHILS % (AUTO) 2.6 % (0-6); HEMATOCRIT 28.9 % (36.0-47.0); HEMOGLOBIN 9.2 g/dL (12.0-15.5); HGB HCT DIFFERENCE -1.3; LYMPHOCYTES % (AUTO) 9.5 % (13-45); MEAN CORPUSCULAR HEMOGLOBIN 27.3 pg (27.0-33.4); MEAN CORPUSCULAR HGB CONC 31.8 g/dL (32.0-36.0); MEAN CORPUSCULAR VOLUME 86 fl (80-97); MONOCYTES % (AUTO) 8.5 % (3-13); RED BLOOD COUNT 3.36 10^6/uL (3.72-5.28); RED CELL DISTRIBUTION WIDTH 17.5 % (11.5-14.0); WHITE BLOOD COUNT 8.2 10^3/uL (4.0-10.5)
[2017-01-07 17:42] LABS: VENOUS BLOOD BASE EXCESS 6.7 mmol/L; VENOUS BLOOD PH 7.3 (7.30-7.42)
[2017-01-07 17:46] LABS: VENOUS BLOOD PCO2 73.4 mmHg (35-63)
--- NOTE | 2017-01-07 17:49 | RADIOLOGY REPORT (SQ) ---
EXAM DESCRIPTION: CHEST SINGLE VIEW COMPLETED DATE/TIME: 01/07/2017 5:38 pm REASON FOR STUDY: sob COMPARISON: 11/28/2016 EXAM PARAMETERS: NUMBER OF VIEWS: One view. TECHNIQUE: Single frontal radiographic view of the chest acquired. RADIATION DOSE: NA LIMITATIONS: None. FINDINGS: LUNGS AND PLEURA: No opacities, masses or pneumothorax. No pleural effusion. MEDIASTINUM AND HILAR STRUCTURES: No masses. Contour normal. HEART AND VASCULAR STRUCTURES: Cardiac silhouette remains enlarged and is unchanged in configuration. BONES: No acute findings. HARDWARE: PICC line is been removed since the previous study. OTHER: No other significant finding. IMPRESSION: No significant interval change. Cardiomegaly. No acute infiltrates are identified. TECHNICAL DOCUMENTATION: JOB ID: [id number] [employer]- All Rights Reserved
[2017-01-07 17:59] LABS: ALANINE AMINOTRANSFERASE 25 U/L (9-52); ALBUMIN 3.5 g/dL (3.5-5.0); ALKALINE PHOSPHATASE 60 U/L (38-126); ANION GAP 10 (5-19); ASPARTATE AMINO TRANSFERASE 20 U/L (14-36); BILIRUBIN,DIRECT 0.3 mg/dL (0.0-0.4); BILIRUBIN,TOTAL 0.4 mg/dL (0.2-1.3); BLOOD UREA NITROGEN 19 mg/dL (7-20); CALCIUM 8.6 mg/dL (8.4-10.2); CARBON DIOXIDE 34 mmol/L (22-30); CHLORIDE 101 mmol/L (98-107); CREATININE RESULT 0.85 mg/dL (0.52-1.25); GLUCOSE 53 mg/dL (75-110); LIPASE 26.1 U/L (23-300); MAGNESIUM 1.9 mg/dL (1.6-2.3); POTASSIUM 4.4 mmol/L (3.6-5.0); SODIUM 144.8 mmol/L (137-145); TOTAL PROTEIN 6.3 g/dL (6.3-8.2)
--- NOTE | 2017-01-07 18:35 | ER Document Report ---
ED General - General Chief Complaint: Breathing Difficulty Stated Complaint: DIFFICULTY BREATHING Time Seen by Provider: 01/07/17 16:46 TRAVEL OUTSIDE OF THE [place] IN LAST 30 DAYS: No - HPI Patient complains to provider of: Difficulty breathing chest tightness Notes: [facility] facility for difficulty breathing chest tightness. Patient has a history of COPD morbid obesity patient is supposed to be wearing CPAP at night states compliant with this patient states that symptoms began return to eat up in the local [facility]. Patient upon arrival was on 4 L patient states she normally wears to the [facility]. Patient states slight improvement of her breathing with any treatment given. Patient otherwise does not look to be in any obvious distress at this time. States chest tightness across her whole entire chest. Denies fevers chills nausea vomiting abdominal pain. - Related Data Allergies/Adverse Reactions: codeine [Codeine] Adverse Reaction (Unknown, Verified 08/23/16 08:03) Home Medications: Current Home Medications Albuterol Sulfate [Proair HFA] 2 puff IH Q4 PRN 01/07/17 [History] Aspirin [Aspirin 81 mg Chewable Tablet] 81 mg PO DAILY 01/07/17 [History] Atorvastatin Calcium 40 mg PO QHS 01/07/17 [History] Duloxetine HCl [Cymbalta] 60 mg PO DAILY 01/07/17 [History] Fluticasone/Salmeterol [Advair 250-50 Diskus 28 dose] 1 inh IH Q12H 01/07/17 [ History] Gabapentin 300 mg PO Q8 01/07/17 [History] Insulin Detemir [Levemir Flextouch] 50 unit SQ BID 01/07/17 [History] Magnesium Oxide 400 mg PO DAILY 01/07/17 [History] Melatonin/Pyridoxine HCl (B6) [Melatonin 3 mg Tablet] 2 each PO QHS 01/07/17 [ History] Metformin HCl 500 mg PO WSUPPER 01/07/17 [History] Simethicone [Gas Relief 80] 80 mg PO MEALSHS PRN 01/07/17 [History] Spironolactone [Aldactone 25 mg Tablet] 12.5 mg PO DAILY 01/07/17 [History] Tramadol HCl [Ultram] 50 mg PO Q6HP PRN 01/07/17 [History] Past Medical History - Social History Smoking Status: Unknown if Ever Smoked Chew tobacco use (# tins/day): No Frequency of alcohol use: None Drug Abuse: None Family History: Reviewed & Not Pertinent, Hypertension, Other - Alzheimer's, renal failure Patient has suicidal ideation: No Patient has homicidal ideation: No - Past Medical History Cardiac Medical History: Reports: Hx Congestive Heart Failure, Hx Coronary Artery Disease, Hx Hypercholesterolemia, Hx Hypertension, Hx Peripheral Vascular Disease Denies: Hx Heart Murmur Pulmonary Medical History: Reports: Hx Asthma, Hx Bronchitis, Hx COPD, Hx Respiratory Failure, Hx Sleep Apnea Denies: Hx Tuberculosis Neurological Medical History: Reports: Hx Migraine. Denies: Hx Seizures Endocrine Medical History: Reports: Hx Diabetes Mellitus Type 1, Hx Diabetes Mellitus Type 2 Renal/ Medical History: Reports: Hx Ovarian Cysts. Denies: Hx Peritoneal Dialysis Malignancy Medical History: GI Medical History: Reports: Hx Gastritis, Hx Ulcer. Denies: Hx Pancreatitis Musculoskeltal Medical History: Reports Hx Arthritis, Reports Hx Fibromyalgia, Reports Hx Musculoskeletal Deformity, Reports Hx Musculoskeletal Trauma Psychiatric Medical History: Reports: Hx Anxiety, Hx Depression Denies: Hx Attention Deficit Hyperactivity Disorder Traumatic Medical History: Reports: Hx Fractures - pinkie finger Infectious Medical History: Reports: Hx C-Diff, Hx MRSA Past Surgical History: Reports: Hx Appendectomy, Hx Cardiac Catheterization, Hx Cholecystectomy, Hx Coronary Stent, Hx Hysterectomy, Hx Orthopedic Surgery - right shoulder, Hx Tubal Ligation, Hx Vascular Surgery - Immunizations Immunizations up to date: Yes Hx Diphtheria, Pertussis, Tetanus Vaccination: Yes Hx Pneumococcal Vaccination: 02/17/10 Review of Systems - Review of Systems Constitutional: No symptoms reported EENT: No symptoms reported Cardiovascular: Chest pain - Chest tightness Respiratory: Cough, Short of breath, Wheezing Gastrointestinal: No symptoms reported Genitourinary: No symptoms reported Female Genitourinary: No symptoms reported Musculoskeletal: No symptoms reported Skin: No symptoms reported Hematologic/Lymphatic: No symptoms reported Neurological/Psychological: No symptoms reported -: Yes All other systems reviewed and negative Physical Exam - Vital signs Vitals: Resp BP Pulse Ox 13 120/50 L 99 01/07/17 16:47 01/07/17 16:47 01/07/17 16:47 Interpretation: Normal - General General appearance: Appears well, Alert - HEENT Head: Normocephalic, Atraumatic Eyes: Normal Pupils: PERRL - Respiratory Respiratory status: No respiratory distress Chest status: Tender Breath sounds: Wheezing Chest palpation: Normal - Cardiovascular Rhythm: Regular Heart sounds: Normal auscultation Murmur: No - Abdominal Inspection: Normal Distension: No distension Bowel sounds: Normal Tenderness: Nontender Organomegaly: No organomegaly - Back Back: Normal, Nontender - Extremities General upper extremity: Normal inspection, Nontender, Normal color, Normal ROM , Normal temperature General lower extremity: Normal inspection, Nontender, Normal color, Normal ROM , Normal temperature, Normal weight bearing. No: George's sign - Neurological Neuro grossly intact: Yes Cognition: Normal Orientation: AAOx4 Mark Coma Scale Eye Opening: Spontaneous [place] Coma Scale Verbal: Oriented Mark Coma Scale Motor: Obeys Commands Mark Coma Scale Total: 15 Speech: Normal Motor strength normal: LUE, RUE, LLE, RLE Sensory: Normal - Psychological Associated symptoms: Normal affect, Normal mood - Skin Skin Temperature: Warm Skin Moisture: Dry Skin Color: Normal Course - Re-evaluation Re-evalutation: 01/07/17 19:28 Lab work showed elevation in PCO2. Patient also had low blood sugar. Patient was given a meal currently at this time and will be able to tolerate patient otherwise ANO 3 shows no signs of hypoglycemia. Discussed with PCP will admit the patient for further evaluation for COPD exacerbation and hypercapnia. We will place the patient on BiPAP to decrease her PCO2. 01/07/17 19:30 - Vital Signs Vital signs: Temp Pulse Resp BP Pulse Ox 14 123/48 L 99 01/07/17 19:23 01/07/17 19:23 01/07/17 19:23 - Laboratory Result Diagrams: 01/07/17 17:20 01/07/17 17:20 Laboratory results interpreted by me: 01/07/17 01/07/17 01/07/17 17:20 17:20 17:20 RBC 3.36 L Hgb 9.2 L Hct 28.9 L MCHC 31.8 L RDW 17.5 H Seg Neutrophils % 79.0 H Lymphocytes % 9.5 L VBG pCO2 73.4 H* VBG HCO3 35.0 H Carbon Dioxide 34 H Glucose 53 L Discharge - Discharge Clinical Impression: Acute chronic obstructive pulmonary disease with respiratory failure, Hypercapnemia Obesity Qualifiers: Obesity type: unspecified obesity type Obesity classification: unspecified obesity classification Serious obesity comorbidity presence: unspecified whether serious comorbidity present Qualified Code(s): E66.9 - Obesity, unspecified Condition: Good Disposition: ADMITTED INPATIENT Admitting Provider: Renetta Unit Admitted: [facility]
[2017-01-07] MEDS ORDERED: ALBUTEROL SULFATE 0.083% NEB 2.5 MG/3 ML AMPUL NEB ONE (18:36)
[2017-01-07] MEDS ORDERED: METHYLPREDNISOLONE INJ 125 MG/2 ML SDV IV ONE (18:36)
[2017-01-07] MEDS ORDERED: ONDANSETRON HCL INJ/PF 4 MG/2 ML SDV IV ONE (19:10)
--- NOTE | 2017-01-07 21:11 | EKG REPORT ---
SEVERITY:- ABNORMAL ECG - SINUS RHYTHM PROBABLE LEFT ATRIAL ABNORMALITY LEFT BUNDLE BRANCH BLOCK : Confirmed by: Paula Gaxiola MD 07-Jan-2017 21:10:45
[2017-01-07] MEDS ORDERED: ALBUTEROL SULFATE HFA (90 MCG/PUFF) 8 GM MDI (1 MDI/ER DISP) IH PRN (21:37)
[2017-01-07] MEDS ORDERED: MAGNESIUM OXIDE 400 MG TABLET PO ONE ×2 (21:45→22:45)
[2017-01-07] MEDS ORDERED: PYRIDOXINE HCL PO SCH (22:00)
[2017-01-07] MEDS ORDERED: MELATONIN PO SCH (22:00)
[2017-01-07] MEDS ORDERED: SPIRONOLACTONE 25 MG TABLET PO ONE (22:45)
[2017-01-07] MEDS ORDERED: INSULIN DETEMIR 100 UNIT/ML 3 ML PEN SUBCUT ONE (22:45)
[2017-01-07] MEDS ORDERED: ASPIRIN 81 MG TABLET, CHEWABLE PO ONE (22:45)
[2017-01-07 23:56] LABS: CREATINE KINASE MB 0.88 ng/mL (<4.55)
[2017-01-08 00:04] LABS: TROPONIN I < 0.012 ng/mL
[2017-01-08] MEDS: GABAPENTIN 300 MG CAPSULE PO SCH ×4 (01:08→22:57)
[2017-01-08] MEDS: TRAMADOL HCL 50 MG TABLET PO PRN ×2 (01:09→14:15)
[2017-01-08] MEDS: SIMETHICONE 80 MG TAB.CHEW PO PRN ×5 (01:12→22:56)
[2017-01-08] MEDS: ATORVASTATIN CALCIUM 40 MG TABLET PO SCH ×2 (01:12→22:57)
[2017-01-08 02:41] LABS: APPEARANCE,URINE SLIGHTLY-CLOUDY; BILIRUBIN,URINE NEGATIVE (NEGATIVE); GLUCOSE, URINE NEGATIVE (NEGATIVE); KETONES,URINE NEGATIVE (NEGATIVE); LEUKOCYTE ESTERASE,URINE SMALL (NEGATIVE); NITRITE,URINE NEGATIVE (NEGATIVE); PROTEIN,URINE NEGATIVE (NEGATIVE); URINE SPECIFIC GRAVITY 1.021; UROBILINOGEN,URINE NEGATIVE mg/dL (<2.0)
[2017-01-08] MEDS ORDERED: INSULIN DETEMIR 100 UNIT/ML 3 ML PEN SUBCUT ONE (03:51)
[2017-01-08 05:39] LABS: HEMOGLOBIN 8.8 g/dL (12.0-15.5); HGB HCT DIFFERENCE -0.6; MEAN CORPUSCULAR HEMOGLOBIN 27.5 pg (27.0-33.4); MEAN CORPUSCULAR HGB CONC 32.5 g/dL (32.0-36.0); MEAN CORPUSCULAR VOLUME 85 fl (80-97); RED CELL DISTRIBUTION WIDTH 17.7 % (11.5-14.0)
[2017-01-08 05:41] LABS: PROTHROMBIN TIME 13.1 SEC (11.4-15.4)
[2017-01-08 05:42] LABS: PARTIAL THROMBOPLASTIN TIME 32.1 SEC (23.5-35.8)
[2017-01-08 05:47] LABS: ALANINE AMINOTRANSFERASE 31 U/L (9-52); ALBUMIN 3.3 g/dL (3.5-5.0); ALKALINE PHOSPHATASE 73 U/L (38-126); ANION GAP 9 (5-19); ASPARTATE AMINO TRANSFERASE 13 U/L (14-36); BILIRUBIN,DIRECT 0.4 mg/dL (0.0-0.4); BILIRUBIN,TOTAL 0.4 mg/dL (0.2-1.3); BLOOD UREA NITROGEN 18 mg/dL (7-20); CALCIUM 8.8 mg/dL (8.4-10.2); CARBON DIOXIDE 32 mmol/L (22-30); CHLORIDE 101 mmol/L (98-107); CHOLESTEROL 114.27 mg/dL (0-200); Direct HDL 54 mg/dL (>40); GLUCOSE 171 mg/dL (75-110); LIPASE 28.1 U/L (23-300); PHOSPHORUS 4.7 mg/dL (2.5-4.5); POTASSIUM 4.9 mmol/L (3.6-5.0); SODIUM 141.9 mmol/L (137-145); TRIGLYCERIDES 62 mg/dL (<150)
[2017-01-08 05:58] LABS: DIRECT LDL 52 mg/dL (<100)
[2017-01-08 05:59] LABS: CREATINE KINASE MB 0.97 ng/mL (<4.55)
[2017-01-08 06:07] LABS: AMYLASE < 30 U/L (30-110); TROPONIN I < 0.012 ng/mL
[2017-01-08 06:19] LABS: THYROID STIMULATING HORMONE 0.27 uIU/mL (0.47-4.68)
[2017-01-08 06:24] LABS: BAND NEUTROPHILS % (MANUAL) 2 % (3-5); BASOPHILS % (MANUAL) 0 % (0-2); EOSINOPHILS % (MANUAL) 0 % (0-6); LYMPHOCYTES % (MANUAL) 1 % (13-45); TOTAL CELLS COUNTED 100
[2017-01-08 06:26] LABS: ANISOCYTOSIS 1+; HYPOCHROMASIA 1+; OVALOCYTES 1+; POIKILOCYTOSIS 1+; POLYCHROMASIA SLIGHT; TARGET CELLS SLIGHT; TOXIC GRANULATION SLIGHT
[2017-01-08] MEDS: INSULIN DETEMIR 100 UNIT/ML 3 ML PEN SUBCUT SCH ×2 (09:48→18:23)
[2017-01-08] MEDS: SPIRONOLACTONE 25 MG TABLET PO SCH (09:49)
[2017-01-08] MEDS: ENOXAPARIN SODIUM INJ 40 MG/0.4 ML DISP.SYRIN SUBCUT SCH (09:49)
[2017-01-08] MEDS: DULOXETINE HCL 30 MG CAPSULE.DR PO SCH (09:51)
[2017-01-08] MEDS: ASPIRIN 81 MG TABLET, CHEWABLE PO SCH (09:51)
[2017-01-08] MEDS: FLUTICASONE/SALMETEROL DISKUS 250-50 MCG/DOSE IH SCH ×2 (09:51→22:59)
[2017-01-08 14:00] LABS: CREATINE KINASE MB 1.17 ng/mL (<4.55); TROPONIN I < 0.012 ng/mL
--- NOTE | 2017-01-08 15:04 | PDOC H&P ---
History of Present Illness Admission Date/PCP: 01/07/17 18:58 TANISHA POLLARD MD History of Present Illness: TORREY MARKS is a 66 year old female, she has multiple comorbid conditions including chronic respiratory failure, she is presently a alf undergoing rehabilitation, she was transferred from the alf to the emergency room for evaluation of chest pain and shortness of breath in the emergency room she was evaluated, she was found to have hypercapnia from the VBG that was done, she was supported with a noninvasive positive pressure ventilation. She has a history of coronary artery disease, she recently had cardiac cauterization done. 3 sets of cardiac enzymes so far negative for any acute SC Past Medical History Cardiac Medical History: Reports: Congestive Heart Failure, Coronary Artery Disease, Hyperlipidema, Hypertension, Peripheral Vascular Disease Pulmonary Medical History: Reports: Asthma, Bronchitis, Chronic Obstructive Pulmonary Disease (COPD), Respiratory Failure, Sleep Apnea Neurological Medical History: Reports: Migraine Endocrine Medical History: Reports: Diabetes Mellitus Type 2 Renal/ Medical History: Malignancy Medical History: GI Medical History: Musculoskeltal Medical History: Reports: Arthritis, Fibromyalgia Psychiatric Medical History: Reports: Depression Denies: Attention Deficit Hyperactivity Disorder Infectious Medical History: Reports: Clostridium Difficile, Methicillin- Resistant Staph Aureus Past Surgical History Past Surgical History: Reports: Amputation, Appendectomy, Cardiac Catheterization, Cholecystectomy, Coronary Stent, Hysterectomy, Orthopedic Surgery - right shoulder, Tubal Ligation, Vascular Surgery Social History Smoking Status: Former Smoker Number of Years Smokin Last Time Smoked: 4 yrs ago Frequency of Alcohol Use: None Hx Recreational Drug Use: No Drugs: None Hx Prescription Drug Abuse: No Family History Family History: Reviewed & Not Pertinent, Hypertension, Other - Alzheimer's, renal failure Parental Family History Reviewed: Yes Children Family History Reviewed: Yes Sibling(s) Family History Reviewed.: Yes Medication/Allergy Home Medications: Albuterol Sulfate [Proair HFA] 2 puff IH Q4 PRN 01/07/17 Aspirin [Aspirin 81 mg Chewable Tablet] 81 mg PO DAILY 01/07/17 Atorvastatin Calcium 40 mg PO QHS 01/07/17 Duloxetine HCl [Cymbalta] 60 mg PO DAILY 01/07/17 Fluticasone/Salmeterol [Advair 250-50 Diskus 28 dose] 1 inh IH Q12H 01/07/17 Gabapentin 300 mg PO Q8 01/07/17 Insulin Detemir [Levemir Flextouch] 50 unit SQ BID 01/07/17 Magnesium Oxide 400 mg PO DAILY 01/07/17 Melatonin/Pyridoxine HCl (B6) [Melatonin 3 mg Tablet] 2 each PO QHS 01/07/17 Metformin HCl 500 mg PO WSUPPER 01/07/17 Simethicone [Gas Relief 80] 80 mg PO MEALSHS PRN 01/07/17 Spironolactone [Aldactone 25 mg Tablet] 12.5 mg PO DAILY 01/07/17 Tramadol HCl [Ultram] 50 mg PO Q6HP PRN 01/07/17 Allergies/Adverse Reactions: codeine [Codeine] Adverse Reaction (Unknown, Verified 08/23/16 08:03) Review of Systems Constitutional: ABSENT: chills, fever(s), headache(s), weight gain, weight loss Eyes: ABSENT: visual disturbances Ears: ABSENT: hearing changes Cardiovascular: PRESENT: chest pain Respiratory: PRESENT: cough Gastrointestinal: ABSENT: abdominal pain, constipation, diarrhea, hematemesis, hematochezia, nausea, vomiting Genitourinary: ABSENT: dysuria, hematuria Musculoskeletal: ABSENT: joint swelling Integumentary: ABSENT: rash, wounds Neurological: ABSENT: abnormal gait, abnormal speech, confusion, dizziness, focal weakness, syncope Psychiatric: ABSENT: anxiety, depression, homidical ideation, suicidal ideation Endocrine: ABSENT: cold intolerance, heat intolerance, menstrual abnormalities, polydipsia, polyuria Hematologic/Lymphatic: ABSENT: easy bleeding, easy bruising, lymphadenopathy Physical Exam Vital Signs: Temp Pulse Resp BP Pulse Ox 97.6 F 84 20 135/61 H 98 01/08/17 11:28 01/08/17 14:00 01/08/17 11:28 01/08/17 11:28 01/08/17 11:28 Intake & Output 01/07/17 01/08/17 01/09/17 06:59 06:59 06:59 Intake Total 10 0 Balance 10 0 Weight 119.9 kg General appearance: PRESENT: mild distress Head exam: PRESENT: atraumatic, normocephalic Eye exam: PRESENT: conjunctiva pink, EOMI, PERRLA Ear exam: PRESENT: normal external ear exam Mouth exam: PRESENT: moist, tongue midline Neck exam: PRESENT: full ROM Respiratory exam: PRESENT: wheezes Cardiovascular exam: PRESENT: RRR, +S1, +S2 Pulses: PRESENT: normal dorsalis pedis pul, +2 pedal pulses bilateral Vascular exam: PRESENT: normal capillary refill GI/Abdominal exam: PRESENT: normal bowel sounds, soft. ABSENT: distended, guarding, mass, organolmegaly, rebound, tenderness Rectal exam: PRESENT: deferred Neurological exam: PRESENT: alert, awake, oriented to person, oriented to place , oriented to time, oriented to situation, CN II-XII grossly intact. ABSENT: motor sensory deficit Psychiatric exam: PRESENT: appropriate affect, normal mood. ABSENT: homicidal ideation, suicidal ideation Skin exam: PRESENT: dry, intact, warm. ABSENT: cyanosis, rash Results Laboratory Results: 01/08/17 05:12 01/08/17 05:12 01/07/17 01/08/17 01/08/17 23:50 05:12 05:12 WBC 8.0 RBC 3.20 L Hgb 8.8 L Hct 27.0 L MCV 85 MCH 27.5 MCHC 32.5 RDW 17.7 H Plt Count 329 Seg Neutrophils % Not Reportable Lymphocytes % Not Reportable Monocytes % Not Reportable Eosinophils % Not Reportable Basophils % Not Reportable Absolute Neutrophils Not Reportable Absolute Lymphocytes Not Reportable Absolute Monocytes Not Reportable Absolute Eosinophils Not Reportable Absolute Basophils Not Reportable Sodium 141.9 Potassium 4.9 Chloride 101 Carbon Dioxide 32 H Anion Gap 9 BUN 18 Creatinine 0.70 Est GFR ( Amer) > 60 Est GFR (Non-Af Amer) > 60 Glucose 171 H Calcium 8.8 Phosphorus 4.7 H Magnesium 2.0 Total Bilirubin 0.4 AST 13 L ALT 31 Alkaline Phosphatase 73 Total Protein 6.0 L Albumin 3.3 L Triglycerides 62 Cholesterol 114.27 LDL Cholesterol Direct 52 VLDL Cholesterol 12.0 HDL Cholesterol 54 Amylase < 30 L Lipase 28.1 TSH Free T4 Urine Color YELLOW Urine Appearance SLIGHTLY-CLOUDY Urine pH 5.0 Ur Specific [place] 1.021 Urine Protein NEGATIVE Urine Glucose (UA) NEGATIVE Urine Ketones NEGATIVE Urine Blood NEGATIVE Urine Nitrite NEGATIVE Ur Leukocyte Esterase SMALL H Urine WBC (Auto) 4 Urine RBC (Auto) 4 01/08/17 05:12 WBC RBC Hgb Hct MCV MCH MCHC RDW Plt Count Seg Neutrophils % Lymphocytes % Monocytes % Eosinophils % Basophils % Absolute Neutrophils Absolute Lymphocytes Absolute Monocytes Absolute Eosinophils Absolute Basophils Sodium Potassium Chloride Carbon Dioxide Anion Gap BUN Creatinine Est GFR ( Amer) Est GFR (Non-Af Amer) Glucose Calcium Phosphorus Magnesium Total Bilirubin AST ALT Alkaline Phosphatase Total Protein Albumin Triglycerides Cholesterol LDL Cholesterol Direct VLDL Cholesterol HDL Cholesterol Amylase Lipase TSH 0.27 L Free T4 1.68 Urine Color Urine Appearance Urine pH Ur Specific [place] Urine Protein Urine Glucose (UA) Urine Ketones Urine Blood Urine Nitrite Ur Leukocyte Esterase Urine WBC (Auto) Urine RBC (Auto) 01/07/17 01/07/17 01/08/17 23:21 23:21 05:12 Creatine Kinase 44 39 CK-MB (CK-2) 0.88 Troponin I < 0.012 01/08/17 01/08/17 01/08/17 05:12 13:21 13:21 Creatine Kinase 43 CK-MB (CK-2) 0.97 1.17 Troponin I < 0.012 < 0.012 Impressions: Chest X-Ray 01/07/17 16:49 IMPRESSION: No significant interval change. Cardiomegaly. No acute infiltrates are identified. Assessment & Plan - Diagnosis (1) Acute and chronic respiratory failure with hypercapnia Is this a current diagnosis for this admission?: Yes Plan: continue Noninvasive positive pressure ventilation, continue bronchodilators and other treatment (2) Acute and chronic respiratory failure with hypercapnia Is this a current diagnosis for this admission?: Yes
[2017-01-08] MEDS ORDERED: INFLUENZA ADLT QUAD (36MOS+) 2017-18 VAC 0.5 ML SYR IM PRN (15:57)
[2017-01-08] MEDS ORDERED: DIPHENHYDRAMINE HCL 25 MG CAPSULE PO ONE (22:00)
[2017-01-08] MEDS ORDERED: ACETAMINOPHEN 325 MG TABLET PO ONE (22:00)
[2017-01-09 06:11] LABS: ABSOLUTE LYMPHOCYTES (AUTO) 1.1 10^3/uL (0.5-4.7); ABSOLUTE NEUT (AUTO) 6.4 10^3/uL (1.7-8.2); BASOPHILS % (AUTO) 0.3 % (0-2); EOSINOPHILS % (AUTO) 0.5 % (0-6); HEMATOCRIT 27.3 % (36.0-47.0); HEMOGLOBIN 8.8 g/dL (12.0-15.5); HGB HCT DIFFERENCE -0.9; LYMPHOCYTES % (AUTO) 12.5 % (13-45); MEAN CORPUSCULAR HEMOGLOBIN 27.3 pg (27.0-33.4); MEAN CORPUSCULAR HGB CONC 32.3 g/dL (32.0-36.0); MEAN CORPUSCULAR VOLUME 85 fl (80-97); MONOCYTES % (AUTO) 11.3 % (3-13); RED BLOOD COUNT 3.23 10^6/uL (3.72-5.28); RED CELL DISTRIBUTION WIDTH 17.7 % (11.5-14.0); SEGMENTED NEUTROPHILS % (AUTO) 75.4 % (42-78); WHITE BLOOD COUNT 8.5 10^3/uL (4.0-10.5)
[2017-01-09 06:39] LABS: ALANINE AMINOTRANSFERASE 25 U/L (9-52); ALBUMIN 3.1 g/dL (3.5-5.0); ALKALINE PHOSPHATASE 60 U/L (38-126); ANION GAP 9 (5-19); ASPARTATE AMINO TRANSFERASE 11 U/L (14-36); BILIRUBIN,DIRECT 0.3 mg/dL (0.0-0.4); BILIRUBIN,TOTAL 0.3 mg/dL (0.2-1.3); BLOOD UREA NITROGEN 29 mg/dL (7-20); CALCIUM 8.8 mg/dL (8.4-10.2); CARBON DIOXIDE 34 mmol/L (22-30); CHLORIDE 101 mmol/L (98-107); CREATININE RESULT 0.75 mg/dL (0.52-1.25); GLUCOSE 137 mg/dL (75-110); POTASSIUM 4.4 mmol/L (3.6-5.0); SODIUM 143.9 mmol/L (137-145); TOTAL PROTEIN 5.5 g/dL (6.3-8.2)
[2017-01-09] MEDS: GABAPENTIN 300 MG CAPSULE PO SCH ×3 (09:12→21:59)
[2017-01-09] MEDS: DULOXETINE HCL 30 MG CAPSULE.DR PO SCH (09:13)
[2017-01-09] MEDS: ENOXAPARIN SODIUM INJ 40 MG/0.4 ML DISP.SYRIN SUBCUT SCH (09:13)
[2017-01-09] MEDS: INSULIN DETEMIR 100 UNIT/ML 3 ML PEN SUBCUT SCH ×2 (09:13→22:09)
[2017-01-09] MEDS: FLUTICASONE/SALMETEROL DISKUS 250-50 MCG/DOSE IH SCH ×2 (09:13→22:01)
[2017-01-09] MEDS: ASPIRIN 81 MG TABLET, CHEWABLE PO SCH (09:13)
[2017-01-09] MEDS: SIMETHICONE 80 MG TAB.CHEW PO PRN ×4 (09:13→22:00)
[2017-01-09] MEDS: SPIRONOLACTONE 25 MG TABLET PO SCH (09:14)
--- NOTE | 2017-01-09 09:49 | PDOC PROGRESS REPORT ---
Subjective Progress Note for:: 01/09/17 Subjective:: This 66-year-old females with a significant medical problems and a several hospital admissions came for the chest pain and short of breath patients rule out any acute coronary syndromes patient still complains of short of breath And patient is using the BiPAP currently doing better Patient's complaining of all joint pains Other than that no other events happens Physical Exam Vital Signs: Temp Pulse Resp BP Pulse Ox 98.6 F 87 22 H 144/69 H 99 01/09/17 07:58 01/09/17 07:58 01/09/17 07:58 01/09/17 07:58 01/09/17 07:58 Intake & Output 01/08/17 01/09/17 01/10/17 06:59 06:59 06:59 Intake Total 864 Output Total 300 Balance 564 Weight 120.1 kg General appearance: PRESENT: no acute distress, well-developed, well-nourished Head exam: PRESENT: atraumatic, normocephalic Eye exam: PRESENT: conjunctiva pink, EOMI, PERRLA. ABSENT: scleral icterus Ear exam: PRESENT: normal external ear exam Mouth exam: PRESENT: moist, tongue midline Neck exam: PRESENT: full ROM. ABSENT: carotid bruit, JVD, lymphadenopathy, thyromegaly Respiratory exam: PRESENT: clear to auscultation rolf Cardiovascular exam: PRESENT: RRR. ABSENT: diastolic murmur, rubs, systolic murmur Pulses: PRESENT: normal dorsalis pedis pul, +2 pedal pulses bilateral Vascular exam: PRESENT: normal capillary refill GI/Abdominal exam: PRESENT: normal bowel sounds, soft. ABSENT: distended, guarding, mass, organolmegaly, rebound, tenderness Rectal exam: PRESENT: deferred Neurological exam: PRESENT: alert, awake, oriented to person, oriented to place , oriented to time, oriented to situation, CN II-XII grossly intact. ABSENT: motor sensory deficit Psychiatric exam: PRESENT: appropriate affect, normal mood. ABSENT: homicidal ideation, suicidal ideation Skin exam: PRESENT: dry, intact, warm. ABSENT: cyanosis, rash Results Laboratory Results: 01/09/17 05:13 01/09/17 05:13 01/09/17 01/09/17 01/09/17 05:13 05:13 05:13 WBC 8.5 RBC 3.23 L Hgb 8.8 L Hct 27.3 L MCV 85 MCH 27.3 MCHC 32.3 RDW 17.7 H Plt Count 333 Seg Neutrophils % 75.4 Lymphocytes % 12.5 L Monocytes % 11.3 Eosinophils % 0.5 Basophils % 0.3 Absolute Neutrophils 6.4 Absolute Lymphocytes 1.1 Absolute Monocytes 1.0 Absolute Eosinophils 0.0 Absolute Basophils 0.0 Sodium 143.9 Potassium 4.4 Chloride 101 Carbon Dioxide 34 H Anion Gap 9 BUN 29 H Creatinine 0.75 Est GFR ( Amer) > 60 Est GFR (Non-Af Amer) > 60 Glucose 137 H Calcium 8.8 Total Bilirubin 0.3 AST 11 L ALT 25 Alkaline Phosphatase 60 Total Protein 5.5 L Albumin 3.1 L Free T4 1.27 Impressions: Chest X-Ray 01/07/17 16:49 IMPRESSION: No significant interval change. Cardiomegaly. No acute infiltrates are identified. Assessment & Plan - Diagnosis (1) Acute and chronic respiratory failure with hypercapnia Is this a current diagnosis for this admission?: Yes Plan: Patient is currently doing fair currently use the BiPAP will get the ABG and the chest x-ray the patient has significant pulmonary history is several ICU admissions will consult pulmonary for continues further evaluations (2) Acute chronic obstructive pulmonary disease with respiratory failure Is this a current diagnosis for this admission?: Yes Plan: Continues to BiPAP (3) Acute combined systolic (congestive) and diastolic (congestive) heart failure Is this a current diagnosis for this admission?: Yes Plan: Continues to current medications (4) Anxiety Is this a current diagnosis for this admission?: Yes Plan: The all stable (5) Chest pain Qualifiers: Chest pain type: other chest pain Qualified Code(s): R07.89 - Other chest pain Is this a current diagnosis for this admission?: Yes Plan: Chronic cardiac issues patients rule out acute coronary syndromes and patients have an extensive evaluations done by the tertiary centers we consult the local cardiology continues further evaluations (6) Diabetes mellitus type 2 in obese Is this a current diagnosis for this admission?: Yes Plan: Current medications - Time Time Spent with patient: 15-24 minutes Medications reviewed and adjusted accordingly: Yes Anticipated discharge: Other Within: Other - Inpatient Certification Medical Necessity: Need Close Monitoring Due to Risk of Patient Decompensation Post Hospital Care: D/C It Security Consultant Documentation - Plan Summary Plan Summary: As above see other MD orders
--- NOTE | 2017-01-09 10:46 | RADIOLOGY REPORT (SQ) ---
EXAM DESCRIPTION: CHEST PA/LAT COMPLETED DATE/TIME: 01/09/2017 10:28 am REASON FOR STUDY: sob COMPARISON: 09/17/2016 NUMBER OF VIEWS: Two view. TECHNIQUE: Frontal and lateral radiographic views of the chest acquired. LIMITATIONS: None. FINDINGS: LUNGS AND PLEURA: No opacities, masses or pneumothorax. No pleural effusion. MEDIASTINUM AND HILAR STRUCTURES: No masses. No contour abnormalities. HEART AND VASCULAR STRUCTURES: Heart enlarged without failure. Aorta normal for age. BONES: No acute findings. HARDWARE: None in the chest. OTHER: No other significant finding. IMPRESSION: CARDIAC ENLARGEMENT WITHOUT FAILURE. TECHNICAL DOCUMENTATION: JOB ID: [id number] [employer]- All Rights Reserved
--- NOTE | 2017-01-09 11:48 | PDOC CONSULTATION ---
Consultation Consult Date: 01/09/17 Attending physician:: LANDON PASTOR Consult reason:: Chest pain History of Present Illness Admission Date/PCP: 01/08/17 14:45 TANISHA POLLARD MD Patient complains of: Chest pain History of Present Illness: TORREY MARKS is a 66 year old female, she has multiple comorbid conditions including chronic respiratory failure, she is presently a snf undergoing rehabilitation, she was transferred from the snf to the emergency room for evaluation of chest pain and shortness of breath in the emergency room she was evaluated, she was found to have hypercapnia from the VBG that was done, she was supported with a noninvasive positive pressure ventilation. She has a history of coronary artery disease, she recently had cardiac cauterization done. 3 sets of cardiac enzymes so far negative for any acute CT. This history was reviewed and confirmed. Patient continues to have some chest pain but also noted to be having significant chest wall discomfort on palpation. Past Medical History Cardiac Medical History: Reports: Congestive Heart Failure, Coronary Artery Disease, Hyperlipidema, Hypertension, Peripheral Vascular Disease Denies: Heart Murmur Pulmonary Medical History: Reports: Asthma, Bronchitis, Chronic Obstructive Pulmonary Disease (COPD), Respiratory Failure, Sleep Apnea Denies: Tuberculosis Neurological Medical History: Reports: Migraine Denies: Seizures Endocrine Medical History: Reports: Diabetes Mellitus Type 1, Diabetes Mellitus Type 2 Renal/ Medical History: Malignancy Medical History: GI Medical History: Musculoskeltal Medical History: Reports: Arthritis, Fibromyalgia Psychiatric Medical History: Reports: Depression Denies: Attention Deficit Hyperactivity Disorder Infectious Medical History: Reports: Clostridium Difficile, Methicillin- Resistant Staph Aureus Past Surgical History Past Surgical History: Reports: Amputation, Appendectomy, Cardiac Catheterization, Cholecystectomy, Coronary Stent, Hysterectomy, Orthopedic Surgery - right shoulder, Tubal Ligation, Vascular Surgery Social History Information Source: Patient Smoking Status: Former Smoker Number of Years Smokin Last Time Smoked: 4 yrs ago Frequency of Alcohol Use: None Hx Recreational Drug Use: No Drugs: None Hx Prescription Drug Abuse: No - Advance Directive Resuscitation Status: Full Code Family History Family History: Hypertension, Other - Alzheimer's, renal failure Parental Family History Reviewed: Yes Children Family History Reviewed: Yes Sibling(s) Family History Reviewed.: Yes Medication/Allergy Home Medications: Albuterol Sulfate [Proair HFA] 2 puff IH Q4 PRN 01/07/17 Aspirin [Aspirin 81 mg Chewable Tablet] 81 mg PO DAILY 01/07/17 Atorvastatin Calcium 40 mg PO QHS 01/07/17 Duloxetine HCl [Cymbalta] 60 mg PO DAILY 01/07/17 Fluticasone/Salmeterol [Advair 250-50 Diskus 28 dose] 1 inh IH Q12H 01/07/17 Gabapentin 300 mg PO Q8 01/07/17 Insulin Detemir [Levemir Flextouch] 50 unit SQ BID 01/07/17 Magnesium Oxide 400 mg PO DAILY 01/07/17 Melatonin/Pyridoxine HCl (B6) [Melatonin 3 mg Tablet] 2 each PO QHS 01/07/17 Metformin HCl 500 mg PO WSUPPER 01/07/17 Simethicone [Gas Relief 80] 80 mg PO MEALSHS PRN 01/07/17 Spironolactone [Aldactone 25 mg Tablet] 12.5 mg PO DAILY 01/07/17 Tramadol HCl [Ultram] 50 mg PO Q6HP PRN 01/07/17 Allergies/Adverse Reactions: codeine [Codeine] Adverse Reaction (Unknown, Verified 08/23/16 08:03) Review of Systems Review of Systems: Please see history of present illness and past medical history as wall. Constitutional: No fever or chills reported. Head : No recent chronic headaches, recent head injury. Eyes: No recent eye pain, diplopia, redness, discharge, acute visual changes. Ears: No recent chronic ear pain, acute hearing loss, ear discharge. Oral cavity: No recent ulcerations, bleeding, oral cavity discomfort. Neck: No recent acute neck pain reported. Hematologic: No recent easy bruising or bleeding or hematologic malignancy reported. Lymphatic: No recent lymphatic malignancy, chronic lymphadenopathy reported yet Cardiovascular system review: See history of present illness. Respiratory system review: No recent chronic cough, hemoptysis, blood clots in the lungs reported. Mild Shortness of breath on exertion Gastrointestinal system review: Negative for any recent acute or chronic abdominal pain, hematemesis, melena, recent change in bowel habits. Genitourinary system review: No recent acute or chronic hematuria, flank pain, UTI etc. reported. Skin system review: Negative for any recent abnormal bruising, no rash, no pruritus reported. Neurologic: No prior history of strokes, mini strokes, seizure disorder. Psychologic: No history of major psychosis or major depression reported. Musculoskeletal: Minor aches and pains reported. No acute joint swelling reported. Endocrine: No recent polyuria, polydipsia, recent heat or cold intolerance. Physical Exam Vital Signs: Temp Pulse Resp BP Pulse Ox 98.6 F 87 22 H 144/69 H 99 01/09/17 07:58 01/09/17 07:58 01/09/17 07:58 01/09/17 07:58 01/09/17 07:58 Intake & Output 01/08/17 01/09/17 01/10/17 06:59 06:59 06:59 Intake Total 864 Output Total 300 Balance 564 Weight 120.1 kg Exam: GENERAL: well-nourished and in no acute distress. Alert and oriented x3 HEAD: Atraumatic, normocephalic. EYES: Pupils equal round and reactive to light, extraocular movements intact, sclera anicteric, conjunctiva are normal. ENT: TMs normal, nares patent, oropharynx clear without exudates. Moist mucous membranes. No oral ulcerations or bleeding gums noted NECK: supple without lymphadenopathy. Trachea is central. No cervical or axillary lymphadenopathy noted. Carotids are 2+, JVD WNL LUNGS: Respiration seems nonlabored, no significant accessory muscle action noted. Breath sounds clear to auscultation bilaterally and equal noted. No wheezes rales or rhonchi noted. No significant dullness noted on percussion. CHEST: Palpation of the chest wall shows significant chest wall tenderness. No other significant abnormalities noted. HEART: [place] [facility], No PSH, 1/6 JOHANNA aortic area, 1/6 mendoza systolic murmur mitral area, no rubs, no gallops. ABDOMEN: Soft, no significant tenderness appreciated, normoactive bowel sounds. No guarding, no rebound. No rigidity noted . No masses appreciated. EXTREMITIES: Pedal pulses are 1-2+, no calf tenderness noted. No clubbing or cyanosis. 1+ pedal edema noted NEUROLOGICAL: Focused neurological exam showed no significant neurologic deficit. Normal speech, no focal weakness appreciated. PSYCH: Normal mood, normal affect. Judgment and insight within normal limits. SKIN: No significant ecchymosis, rash, ulcerations or signs of pruritus noted. MUSCULOSKELETAL EXAM: No significant joint swelling noted. Results Laboratory Results: 01/09/17 05:13 01/09/17 05:13 01/09/17 01/09/17 01/09/17 05:13 05:13 05:13 WBC 8.5 RBC 3.23 L Hgb 8.8 L Hct 27.3 L MCV 85 MCH 27.3 MCHC 32.3 RDW 17.7 H Plt Count 333 Seg Neutrophils % 75.4 Lymphocytes % 12.5 L Monocytes % 11.3 Eosinophils % 0.5 Basophils % 0.3 Absolute Neutrophils 6.4 Absolute Lymphocytes 1.1 Absolute Monocytes 1.0 Absolute Eosinophils 0.0 Absolute Basophils 0.0 Retic Count (auto) Absolute Retic Sodium 143.9 Potassium 4.4 Chloride 101 Carbon Dioxide 34 H Anion Gap 9 BUN 29 H Creatinine 0.75 Est GFR ( Amer) > 60 Est GFR (Non-Af Amer) > 60 Glucose 137 H Calcium 8.8 Total Bilirubin 0.3 AST 11 L ALT 25 Alkaline Phosphatase 60 Total Protein 5.5 L Albumin 3.1 L Free T4 1.27 01/09/17 05:13 WBC RBC Hgb Hct MCV MCH MCHC RDW Plt Count Seg Neutrophils % Lymphocytes % Monocytes % Eosinophils % Basophils % Absolute Neutrophils Absolute Lymphocytes Absolute Monocytes Absolute Eosinophils Absolute Basophils Retic Count (auto) 1.55 Absolute Retic 0.052 Sodium Potassium Chloride Carbon Dioxide Anion Gap BUN Creatinine Est GFR ( Amer) Est GFR (Non-Af Amer) Glucose Calcium Total Bilirubin AST ALT Alkaline Phosphatase Total Protein Albumin Free T4 EKG Comments: Sinus rhythm, left bundle branch block pattern with secondary ST-T wave changes Impressions: Chest X-Ray 01/09/17 00:00 IMPRESSION: CARDIAC ENLARGEMENT WITHOUT FAILURE. Assessment & Plan - Diagnosis (1) Chest pain Qualifiers: Chest pain type: other chest pain Qualified Code(s): R07.89 - Other chest pain Is this a current diagnosis for this admission?: Yes (2) Chronic respiratory failure Qualifiers: Respiratory failure complication: unspecified whether with hypoxia or hypercapnia Qualified Code(s): J96.10 - Chronic respiratory failure, unspecified whether with hypoxia or hypercapnia Is this a current diagnosis for this admission?: Yes (3) Diabetes mellitus type 2 in obese Is this a current diagnosis for this admission?: Yes (4) Sleep apnea syndrome Qualifiers: Sleep apnea type: unspecified type Qualified Code(s): G47.30 - Sleep apnea , unspecified Is this a current diagnosis for this admission?: Yes (5) Coronary artery disease Qualifiers: Coronary Disease-Associated Artery/Lesion type: [place] artery [place] vs. transplanted heart: [place] heart Associated angina: without angina Qualified Code(s): I25.10 - Atherosclerotic heart disease of [place] coronary artery without angina pectoris Is this a current diagnosis for this admission?: Yes - Notes Notes: Chest pain: [place] to be noncardiac in etiology. Cardiac enzymes, multiple are negative. Patient does have significant chest wall tenderness. Chronic respiratory failure: Most likely related to combination of COPD and underlying obesity hypoventilation syndrome. Continue with intermittent positive pressure ventilation therapy. Coronary artery disease: Patient describes recent heart cath. Will try to obtain those records. In the meantime optimize therapy for underlying CAD. Sleep apnea syndrome: Patient currently on noninvasive ventilation intermittently. I will be happy to follow patient in this regard. Diabetes: Currently being managed by publication distributor. Recommend good control. - Time Time Spent: 30 to 50 Minutes - CODE STATUS was discussed, patient remains full code. Surrogate decision-maker unchanged. Multiple medical problems were addressed. More than 50% of the time spent coordinating care, discussing management plans with involved caregivers. Management plans discussed with involved personnels. Medical decision making was of moderate to high complexity , patient's has multiple comorbidities. Medications reviewed and adjusted accordingly: Yes
[2017-01-09] MEDS: TRAMADOL HCL 50 MG TABLET PO PRN ×2 (12:48→18:39)
[2017-01-09 12:54] LABS: ARTERIAL BLOOD BASE EXCESS 9.7 mmol/L; ARTERIAL BLOOD O2 SATURATION 98.3 % (94-98)
[2017-01-09] MEDS: ACETAMINOPHEN 325 MG TABLET PO PRN (17:22)
[2017-01-09] MEDS ORDERED: CYANOCOBALAMIN (VITAMIN B-12) INJ 1000 MCG/1 ML VIAL IM ONE (18:30)
[2017-01-09] MEDS: IPRATROPIUM/ALBUTEROL 0.5-2.5 MG/3 ML AMPUL NEB SCH (21:02)
[2017-01-09] MEDS: ATORVASTATIN CALCIUM 40 MG TABLET PO SCH (21:59)
[2017-01-10] MEDS: TRAMADOL HCL 50 MG TABLET PO PRN ×3 (01:46→21:42)
[2017-01-10] MEDS: IPRATROPIUM/ALBUTEROL 0.5-2.5 MG/3 ML AMPUL NEB SCH ×4 (02:14→20:21)
[2017-01-10 05:56] LABS: ABSOLUTE BASOPHILS # (AUTO) 0.1 10^3/uL (0.0-0.2); ABSOLUTE EOSINOPHILS # (AUTO) 0.1 10^3/uL (0.0-0.6); ABSOLUTE LYMPHOCYTES (AUTO) 0.8 10^3/uL (0.5-4.7); ABSOLUTE NEUT (AUTO) 8.4 10^3/uL (1.7-8.2); BASOPHILS % (AUTO) 0.5 % (0-2); EOSINOPHILS % (AUTO) 1.3 % (0-6); HEMATOCRIT 28.5 % (36.0-47.0); HEMOGLOBIN 9.4 g/dL (12.0-15.5); HGB HCT DIFFERENCE -0.3; LYMPHOCYTES % (AUTO) 8.1 % (13-45); MEAN CORPUSCULAR HEMOGLOBIN 27.9 pg (27.0-33.4); MEAN CORPUSCULAR HGB CONC 32.9 g/dL (32.0-36.0); MEAN CORPUSCULAR VOLUME 85 fl (80-97); MONOCYTES % (AUTO) 9.6 % (3-13); RED BLOOD COUNT 3.37 10^6/uL (3.72-5.28); RED CELL DISTRIBUTION WIDTH 17.3 % (11.5-14.0); SEGMENTED NEUTROPHILS % (AUTO) 80.5 % (42-78); WHITE BLOOD COUNT 10.4 10^3/uL (4.0-10.5)
[2017-01-10 06:20] LABS: ALANINE AMINOTRANSFERASE 29 U/L (9-52); ALBUMIN 3.4 g/dL (3.5-5.0); ALKALINE PHOSPHATASE 68 U/L (38-126); ANION GAP 13 (5-19); ASPARTATE AMINO TRANSFERASE 13 U/L (14-36); BILIRUBIN,DIRECT 0.3 mg/dL (0.0-0.4); BILIRUBIN,TOTAL 0.5 mg/dL (0.2-1.3); BLOOD UREA NITROGEN 20 mg/dL (7-20); CALCIUM 8.6 mg/dL (8.4-10.2); CARBON DIOXIDE 29 mmol/L (22-30); CHLORIDE 99 mmol/L (98-107); CREATININE RESULT 0.65 mg/dL (0.52-1.25); GLUCOSE 163 mg/dL (75-110); POTASSIUM 4.2 mmol/L (3.6-5.0); SODIUM 140.8 mmol/L (137-145)
[2017-01-10] MEDS: GABAPENTIN 300 MG CAPSULE PO SCH ×3 (06:31→21:41)
[2017-01-10] MEDS: SIMETHICONE 80 MG TAB.CHEW PO PRN ×4 (08:25→21:42)
--- NOTE | 2017-01-10 09:51 | PDOC CONSULTATION ---
Consultation Consult Date: 01/10/17 Attending physician:: LANDON PASTOR Consult reason:: Anemia History of Present Illness Admission Date/PCP: 01/08/17 14:45 TANISHA POLLARD MD Patient complains of: SOB, [place] History of Present Illness: 66-year-old female with multiple medical problems including chronic respiratory failure, CAD, who has been hospitalized multiple times, was noted on this admission to also have anemia with a hemoglobin in the 8 range, iron studies were drawn, indicates ferritin of 30, saturation unable to be calculated, B12 in the low 200 range. She is doing a little bit better today, hemoglobin is up to the 9 range. Thus far there is no evidence of bleeding, no change in stool. In review of records, she has had multiple endoscopies, she does have known history of gastric ulcers, and bleeding in the past, the last endoscopy was 2013 , at that time there is no ulcers but in 2012 there was. Past Medical History Cardiac Medical History: Reports: Congestive Heart Failure, Coronary Artery Disease, Hyperlipidema, Hypertension, Peripheral Vascular Disease Denies: Heart Murmur Pulmonary Medical History: Reports: Asthma, Bronchitis, Chronic Obstructive Pulmonary Disease (COPD), Respiratory Failure, Sleep Apnea Denies: Tuberculosis Neurological Medical History: Reports: Migraine Denies: Seizures Endocrine Medical History: Reports: Diabetes Mellitus Type 1, Diabetes Mellitus Type 2 Renal/ Medical History: Malignancy Medical History: GI Medical History: Musculoskeltal Medical History: Reports: Arthritis, Fibromyalgia Psychiatric Medical History: Reports: Depression Denies: Attention Deficit Hyperactivity Disorder Infectious Medical History: Reports: Clostridium Difficile, Methicillin- Resistant Staph Aureus Past Surgical History Past Surgical History: Reports: Amputation, Appendectomy, Cardiac Catheterization, Cholecystectomy, Coronary Stent, Hysterectomy, Orthopedic Surgery - right shoulder, Tubal Ligation, Vascular Surgery Social History Information Source: [facility] Records Smoking Status: Former Smoker Number of Years Smokin Last Time Smoked: 4 yrs ago Frequency of Alcohol Use: None Hx Recreational Drug Use: No Drugs: None Hx Prescription Drug Abuse: No - Advance Directive Resuscitation Status: Full Code Family History Family History: Hypertension, Other - Alzheimer's, renal failure Parental Family History Reviewed: Yes Children Family History Reviewed: Yes Sibling(s) Family History Reviewed.: Yes Medication/Allergy Home Medications: Albuterol Sulfate [Proair HFA] 2 puff IH Q4 PRN 01/07/17 Aspirin [Aspirin 81 mg Chewable Tablet] 81 mg PO DAILY 01/07/17 Atorvastatin Calcium 40 mg PO QHS 01/07/17 Duloxetine HCl [Cymbalta] 60 mg PO DAILY 01/07/17 Fluticasone/Salmeterol [Advair 250-50 Diskus 28 dose] 1 inh IH Q12H 01/07/17 Gabapentin 300 mg PO Q8 01/07/17 Insulin Detemir [Levemir Flextouch] 50 unit SQ BID 01/07/17 Magnesium Oxide 400 mg PO DAILY 01/07/17 Melatonin/Pyridoxine HCl (B6) [Melatonin 3 mg Tablet] 2 each PO QHS 01/07/17 Metformin HCl 500 mg PO WSUPPER 01/07/17 Simethicone [Gas Relief 80] 80 mg PO MEALSHS PRN 01/07/17 Spironolactone [Aldactone 25 mg Tablet] 12.5 mg PO DAILY 01/07/17 Tramadol HCl [Ultram] 50 mg PO Q6HP PRN 01/07/17 Allergies/Adverse Reactions: codeine [Codeine] Adverse Reaction (Unknown, Verified 08/23/16 08:03) Review of Systems Constitutional: ABSENT: chills, fever(s), headache(s), weight gain, weight loss Eyes: ABSENT: visual disturbances Ears: ABSENT: hearing changes Cardiovascular: ABSENT: chest pain, dyspnea on exertion, edema, orthropnea, palpitations Respiratory: ABSENT: cough, hemoptysis Gastrointestinal: ABSENT: abdominal pain, constipation, diarrhea, hematemesis, hematochezia, nausea, vomiting Genitourinary: ABSENT: dysuria, hematuria Musculoskeletal: ABSENT: joint swelling Integumentary: ABSENT: rash, wounds Neurological: ABSENT: abnormal gait, abnormal speech, confusion, dizziness, focal weakness, syncope Psychiatric: ABSENT: anxiety, depression, homidical ideation, suicidal ideation Endocrine: ABSENT: cold intolerance, heat intolerance, polydipsia, polyuria Hematologic/Lymphatic: ABSENT: easy bleeding, easy bruising Physical Exam Vital Signs: Temp Pulse Resp BP Pulse Ox 98.5 F 99 20 117/51 L 98 01/10/17 07:42 01/10/17 07:42 01/10/17 07:42 01/10/17 07:42 01/10/17 07:42 Intake & Output 1101/10/17 01/11/17 06:59 06:59 06:59 Intake Total 864 861 Output Total 300 600 Balance 564 261 Weight 120.1 kg 118.5 kg General appearance: PRESENT: no acute distress, well-developed, well-nourished Head exam: PRESENT: atraumatic, normocephalic Eye exam: PRESENT: conjunctiva pink, EOMI, PERRLA. ABSENT: scleral icterus Ear exam: PRESENT: normal external ear exam Mouth exam: PRESENT: moist, tongue midline Neck exam: ABSENT: carotid bruit, JVD, lymphadenopathy, thyromegaly Respiratory exam: PRESENT: clear to auscultation rolf. ABSENT: rales, rhonchi, wheezes Cardiovascular exam: PRESENT: RRR. ABSENT: diastolic murmur, rubs, systolic murmur Pulses: PRESENT: normal dorsalis pedis pul Vascular exam: PRESENT: normal capillary refill GI/Abdominal exam: PRESENT: normal bowel sounds, soft. ABSENT: distended, guarding, mass, organolmegaly, rebound, tenderness Rectal exam: PRESENT: deferred Extremities exam: PRESENT: full ROM. ABSENT: calf tenderness, clubbing, pedal edema Neurological exam: PRESENT: alert, awake, oriented to person, oriented to place , oriented to time, oriented to situation, CN II-XII grossly intact. ABSENT: motor sensory deficit Psychiatric exam: PRESENT: appropriate affect, normal mood. ABSENT: homicidal ideation, suicidal ideation Skin exam: PRESENT: dry, intact, warm. ABSENT: cyanosis, rash Results Laboratory Results: 01/10/17 05:39 01/10/17 05:39 01/09/17 01/09/17 01/09/17 05:13 05:13 12:36 WBC RBC Hgb Hct MCV MCH MCHC RDW Plt Count Seg Neutrophils % Lymphocytes % Monocytes % Eosinophils % Basophils % Absolute Neutrophils Absolute Lymphocytes Absolute Monocytes Absolute Eosinophils Absolute Basophils Retic Count (auto) 1.55 Absolute Retic 0.052 Carbonic Acid 1.59 H HCO3/H2CO3 Ratio 22:1 ABG pH 7.44 ABG pCO2 52.7 H ABG pO2 117.4 H ABG HCO3 35.1 H ABG O2 Saturation 98.3 H ABG Base Excess 9.7 FiO2 30% Sodium Potassium Chloride Carbon Dioxide Anion Gap BUN Creatinine Est GFR ( Amer) Est GFR (Non-Af Amer) Glucose Calcium Iron < 10.1 L TIBC 338 % Saturation UNABLE TO CALCULATE Ferritin 32.30 Total Bilirubin AST ALT Alkaline Phosphatase Total Protein Albumin Vitamin B12 234.0 L Folate 10.90 Free T4 01/10/17 01/10/17 01/10/17 05:39 05:39 05:39 WBC 10.4 RBC 3.37 L Hgb 9.4 L Hct 28.5 L MCV 85 MCH 27.9 MCHC 32.9 RDW 17.3 H Plt Count 350 Seg Neutrophils % 80.5 H Lymphocytes % 8.1 L Monocytes % 9.6 Eosinophils % 1.3 Basophils % 0.5 Absolute Neutrophils 8.4 H Absolute Lymphocytes 0.8 Absolute Monocytes 1.0 Absolute Eosinophils 0.1 Absolute Basophils 0.1 Retic Count (auto) Absolute Retic Carbonic Acid HCO3/H2CO3 Ratio ABG pH ABG pCO2 ABG pO2 ABG HCO3 ABG O2 Saturation ABG Base Excess FiO2 Sodium 140.8 Potassium 4.2 Chloride 99 Carbon Dioxide 29 Anion Gap 13 BUN 20 Creatinine 0.65 Est GFR ( Amer) > 60 Est GFR (Non-Af Amer) > 60 Glucose 163 H Calcium 8.6 Iron TIBC % Saturation Ferritin Total Bilirubin 0.5 AST 13 L ALT 29 Alkaline Phosphatase 68 Total Protein 6.0 L Albumin 3.4 L Vitamin B12 Folate Free T4 1.73 Impressions: Chest X-Ray 01/09/17 00:00 IMPRESSION: CARDIAC ENLARGEMENT WITHOUT FAILURE. Assessment & Plan - Diagnosis (1) Other iron deficiency anemias Is this a current diagnosis for this admission?: Yes Plan: Patient has iron deficiency anemia, does not appear to be blood loss as of now, but there has been blood loss in the past. Unsure if she has something like AVMs going on, regardless we will give Feraheme 510 mg IV, we will start B12 shots 1000 mcg daily for 10 days, she will get them as long as she is here and then she could always get them when [facility]. This should fully replete her and she should at least have a hemoglobin in the 10 range thereafter. (2) B12 deficiency anemia Qualifiers: Vitamin B12 deficiency anemia type: other dietary B12 deficiency Qualified Code(s): D51.3 - Other dietary vitamin B12 deficiency anemia Plan: B12 supplementation as above, probably a dietary issue for her - Time Time Spent: 50 to 70 Minutes Critical Time spent with patient: 25-34 minutes
[2017-01-10] MEDS ORDERED: CYANOCOBALAMIN (VITAMIN B-12) 1,000 MCG TABLET PO SCH (10:00)
--- NOTE | 2017-01-10 10:28 | PDOC PROGRESS REPORT ---
Subjective Progress Note for:: 01/10/17 Subjective:: She is currently doing fair Since denied any chest pain denied any shortness of the breath patient is complaining for left lower extremity knee pain Physical Exam Vital Signs: Temp Pulse Resp BP Pulse Ox 98.5 F 99 20 117/51 L 98 01/10/17 07:42 01/10/17 07:42 01/10/17 07:42 01/10/17 07:42 01/10/17 07:42 Intake & Output 01/09/17 01/10/17 01/11/17 06:59 06:59 06:59 Intake Total 864 861 Output Total 300 600 Balance 564 261 Weight 120.1 kg 118.5 kg General appearance: PRESENT: no acute distress, well-developed, well-nourished Head exam: PRESENT: atraumatic, normocephalic Eye exam: PRESENT: conjunctiva pink, EOMI, PERRLA. ABSENT: scleral icterus Ear exam: PRESENT: normal external ear exam Mouth exam: PRESENT: moist, tongue midline Neck exam: PRESENT: full ROM. ABSENT: carotid bruit, JVD, lymphadenopathy, thyromegaly Respiratory exam: PRESENT: clear to auscultation rolf Cardiovascular exam: PRESENT: RRR. ABSENT: diastolic murmur, rubs, systolic murmur Pulses: PRESENT: normal dorsalis pedis pul, +2 pedal pulses bilateral Vascular exam: PRESENT: normal capillary refill GI/Abdominal exam: PRESENT: normal bowel sounds, soft. ABSENT: distended, guarding, mass, organolmegaly, rebound, tenderness Rectal exam: PRESENT: deferred Extremities exam: ABSENT: pedal edema Neurological exam: PRESENT: alert, awake, oriented to person, oriented to place , oriented to time, oriented to situation, CN II-XII grossly intact. ABSENT: motor sensory deficit Psychiatric exam: PRESENT: appropriate affect, normal mood. ABSENT: homicidal ideation, suicidal ideation Skin exam: PRESENT: dry, intact, warm. ABSENT: cyanosis, rash Results Laboratory Results: 01/10/17 05:39 01/10/17 05:39 01/09/17 01/09/17 01/10/17 05:13 12:36 05:39 WBC 10.4 RBC 3.37 L Hgb 9.4 L Hct 28.5 L MCV 85 MCH 27.9 MCHC 32.9 RDW 17.3 H Plt Count 350 Seg Neutrophils % 80.5 H Lymphocytes % 8.1 L Monocytes % 9.6 Eosinophils % 1.3 Basophils % 0.5 Absolute Neutrophils 8.4 H Absolute Lymphocytes 0.8 Absolute Monocytes 1.0 Absolute Eosinophils 0.1 Absolute Basophils 0.1 Carbonic Acid 1.59 H HCO3/H2CO3 Ratio 22:1 ABG pH 7.44 ABG pCO2 52.7 H ABG pO2 117.4 H ABG HCO3 35.1 H ABG O2 Saturation 98.3 H ABG Base Excess 9.7 FiO2 30% Sodium Potassium Chloride Carbon Dioxide Anion Gap BUN Creatinine Est GFR ( Amer) Est GFR (Non-Af Amer) Glucose Calcium Iron < 10.1 L TIBC 338 % Saturation UNABLE TO CALCULATE Ferritin 32.30 Total Bilirubin AST ALT Alkaline Phosphatase Total Protein Albumin Vitamin B12 234.0 L Folate 10.90 Free T4 01/10/17 01/10/17 05:39 05:39 WBC RBC Hgb Hct MCV MCH MCHC RDW Plt Count Seg Neutrophils % Lymphocytes % Monocytes % Eosinophils % Basophils % Absolute Neutrophils Absolute Lymphocytes Absolute Monocytes Absolute Eosinophils Absolute Basophils Carbonic Acid HCO3/H2CO3 Ratio ABG pH ABG pCO2 ABG pO2 ABG HCO3 ABG O2 Saturation ABG Base Excess FiO2 Sodium 140.8 Potassium 4.2 Chloride 99 Carbon Dioxide 29 Anion Gap 13 BUN 20 Creatinine 0.65 Est GFR ( Amer) > 60 Est GFR (Non-Af Amer) > 60 Glucose 163 H Calcium 8.6 Iron TIBC % Saturation Ferritin Total Bilirubin 0.5 AST 13 L ALT 29 Alkaline Phosphatase 68 Total Protein 6.0 L Albumin 3.4 L Vitamin B12 Folate Free T4 1.73 Impressions: Chest X-Ray 01/09/17 00:00 IMPRESSION: CARDIAC ENLARGEMENT WITHOUT FAILURE. Assessment & Plan - Diagnosis (1) Acute and chronic respiratory failure with hypercapnia Is this a current diagnosis for this admission?: Yes Plan: Patient is currently doing fair currently use the BiPAP will get the ABG and the chest x-ray the patient has significant pulmonary history is several ICU admissions will consult pulmonary for continues further evaluations (2) Acute chronic obstructive pulmonary disease with respiratory failure Is this a current diagnosis for this admission?: Yes Plan: Continues to BiPAP (3) Acute combined systolic (congestive) and diastolic (congestive) heart failure Is this a current diagnosis for this admission?: Yes Plan: Continues to current medications (4) Anxiety Is this a current diagnosis for this admission?: Yes Plan: The all stable (5) Chest pain Qualifiers: Chest pain type: other chest pain Qualified Code(s): R07.89 - Other chest pain Is this a current diagnosis for this admission?: Yes Plan: Chronic cardiac issues patients rule out acute coronary syndromes and patients have an extensive evaluations done by the tertiary centers we consult the local cardiology continues further evaluations (6) Diabetes mellitus type 2 in obese Is this a current diagnosis for this admission?: Yes Plan: Current medications - Time Time Spent with patient: 15-24 minutes Medications reviewed and adjusted accordingly: Yes Anticipated discharge: Home Within: Other - Inpatient Certification Medical Necessity: Need Close Monitoring Due to Risk of Patient Decompensation Post Hospital Care: D/C Trials Manager Documentation - Plan Summary Plan Summary: Continues current medications
[2017-01-10] MEDS: ASPIRIN 81 MG TABLET, CHEWABLE PO SCH (10:40)
[2017-01-10] MEDS: INSULIN DETEMIR 100 UNIT/ML 3 ML PEN SUBCUT SCH ×2 (10:40→18:16)
[2017-01-10] MEDS: FLUTICASONE/SALMETEROL DISKUS 250-50 MCG/DOSE IH SCH ×2 (10:40→21:42)
[2017-01-10] MEDS: ENOXAPARIN SODIUM INJ 40 MG/0.4 ML DISP.SYRIN SUBCUT SCH (10:40)
[2017-01-10] MEDS: DULOXETINE HCL 30 MG CAPSULE.DR PO SCH (10:40)
[2017-01-10] MEDS: ACETAMINOPHEN 325 MG TABLET PO PRN (10:41)
[2017-01-10] MEDS: SPIRONOLACTONE 25 MG TABLET PO SCH (10:43)
--- NOTE | 2017-01-10 13:11 | PDOC CONSULTATION ---
Consultation Consult Date: 01/10/17 Attending physician:: LANDON PASTOR Consult reason:: Acute on chronic respiratory failure History of Present Illness Admission Date/PCP: 01/08/17 14:45 TANISHA POLLARD MD History of Present Illness: 66-year-old female well-known to [facility] and [facility] for multiple admissions due to end-stage COPD chronic respiratory failure hypoxic and hypercapnic as well as chronic anemia. She states she was at the group home was unable to tolerate immediate environment and became increasingly short of breath and coughing up phlegm and subsequently was brought to the emergency room and admitted Past Medical History Cardiac Medical History: Reports: Congestive Heart Failure, Coronary Artery Disease, Hyperlipidema, Hypertension, Peripheral Vascular Disease Denies: Heart Murmur Pulmonary Medical History: Reports: Asthma, Bronchitis, Chronic Obstructive Pulmonary Disease (COPD), Respiratory Failure, Sleep Apnea Denies: Tuberculosis Neurological Medical History: Reports: Migraine Denies: Seizures Endocrine Medical History: Reports: Diabetes Mellitus Type 1, Diabetes Mellitus Type 2 Renal/ Medical History: Malignancy Medical History: GI Medical History: Musculoskeltal Medical History: Reports: Arthritis, Fibromyalgia Psychiatric Medical History: Reports: Depression Denies: Attention Deficit Hyperactivity Disorder Infectious Medical History: Reports: Clostridium Difficile, Methicillin- Resistant Staph Aureus Past Surgical History Past Surgical History: Reports: Amputation, Appendectomy, Cardiac Catheterization, Cholecystectomy, Coronary Stent, Hysterectomy, Orthopedic Surgery - right shoulder, Tubal Ligation, Vascular Surgery Social History Information Source: Patient, [facility] Records Lives with: [facility] Smoking Status: Former Smoker Number of Years Smokin Last Time Smoked: 4 yrs ago Passive smoke exposure as: Both Frequency of Alcohol Use: None Hx Recreational Drug Use: No Drugs: None Hx Prescription Drug Abuse: No Do you have pets?: No Have you had any respiratory illnesses as a child?: No Have you been exposed to any sick contacts recently?: No Have you had any recent respiratory illnesses?: No Have you travelled outside of [place] in the past 12 months?: No - Advance Directive Resuscitation Status: Full Code Family History Family History: CAD, Hypertension, Other - Alzheimer's, renal failure Parental Family History Reviewed: Yes Children Family History Reviewed: Yes Sibling(s) Family History Reviewed.: Yes Medication/Allergy Home Medications: Albuterol Sulfate [Proair HFA] 2 puff IH Q4 PRN 01/07/17 Aspirin [Aspirin 81 mg Chewable Tablet] 81 mg PO DAILY 01/07/17 Atorvastatin Calcium 40 mg PO QHS 01/07/17 Duloxetine HCl [Cymbalta] 60 mg PO DAILY 01/07/17 Fluticasone/Salmeterol [Advair 250-50 Diskus 28 dose] 1 inh IH Q12H 01/07/17 Gabapentin 300 mg PO Q8 01/07/17 Insulin Detemir [Levemir Flextouch] 50 unit SQ BID 01/07/17 Magnesium Oxide 400 mg PO DAILY 01/07/17 Melatonin/Pyridoxine HCl (B6) [Melatonin 3 mg Tablet] 2 each PO QHS 01/07/17 Metformin HCl 500 mg PO WSUPPER 01/07/17 Simethicone [Gas Relief 80] 80 mg PO MEALSHS PRN 01/07/17 Spironolactone [Aldactone 25 mg Tablet] 12.5 mg PO DAILY 01/07/17 Tramadol HCl [Ultram] 50 mg PO Q6HP PRN 01/07/17 Allergies/Adverse Reactions: codeine [Codeine] Adverse Reaction (Unknown, Verified 08/23/16 08:03) Review of Systems Constitutional: PRESENT: chills. ABSENT: anorexia, fever(s), night sweats Eyes: ABSENT: visual disturbances Ears: ABSENT: hearing changes Nose, Mouth, and Throat: ABSENT: headache(s), mouth pain Cardiovascular: PRESENT: dyspnea on exertion, edema, orthropnea. ABSENT: palpitations Respiratory: PRESENT: cough, dyspnea. ABSENT: hemoptysis Gastrointestinal: PRESENT: heartburn, melena. ABSENT: abdominal pain, bloating , coffee ground emesis, hematemesis, hematochezia Genitourinary: ABSENT: dysuria, hematuria Musculoskeletal: PRESENT: deformity, joint swelling Integumentary: PRESENT: pruritus, rash Neurological: PRESENT: numbness, paresthesias. ABSENT: abnormal speech, convulsions, dizziness, focal weakness, frequent falls Psychiatric: PRESENT: anxiety, depression. ABSENT: hallucinations, homidical ideation, suicidal ideation Endocrine: PRESENT: cold intolerance. ABSENT: heat intolerance, menstrual abnormalities Hematologic/Lymphatic: PRESENT: easy bruising Physical Exam Vital Signs: Temp Pulse Resp BP Pulse Ox 98.5 F 90 16 117/51 L 93 01/10/17 07:42 01/10/17 08:28 01/10/17 08:28 01/10/17 07:42 01/10/17 08:28 Intake & Output 01/09/17 01/10/17 01/11/17 06:59 06:59 06:59 Intake Total 864 861 Output Total 300 600 Balance 564 261 Weight 120.1 kg 118.5 kg General appearance: PRESENT: cooperative, disheveled, mild distress, morbidly obese, well-developed Head exam: PRESENT: atraumatic, normocephalic Eye exam: PRESENT: conjunctiva pale, EOMI Mouth exam: PRESENT: dry mucosa, neck supple, tongue midline Neck exam: ABSENT: carotid bruit, JVD, lymphadenopathy, thyromegaly Respiratory exam: PRESENT: decreased breath sounds, prolonged expiratory phas, rhonchi, symmetrical, wheezes. ABSENT: accessory muscle use, chest wall tenderness, clear to auscultation rolf, crackles, rales, retraction, stridor, tachypnea Cardiovascular exam: PRESENT: RRR, +S1, +S2. ABSENT: clicks, gallop, irregular rhythm Pulses: PRESENT: normal radial pulses GI/Abdominal exam: PRESENT: normal bowel sounds, soft. ABSENT: distended, guarding, mass, organolmegaly, rebound, tenderness Extremities exam: ABSENT: clubbing, joint swelling, pedal edema Musculoskeletal exam: ABSENT: ambulatory, deformity, dislocation Neurological exam: PRESENT: awake Psychiatric exam: PRESENT: flat affect Skin exam: PRESENT: dry, pallor, warm Results Laboratory Results: 01/10/17 05:39 01/10/17 05:39 01/10/17 01/10/17 01/10/17 05:39 05:39 05:39 WBC 10.4 RBC 3.37 L Hgb 9.4 L Hct 28.5 L MCV 85 MCH 27.9 MCHC 32.9 RDW 17.3 H Plt Count 350 Seg Neutrophils % 80.5 H Lymphocytes % 8.1 L Monocytes % 9.6 Eosinophils % 1.3 Basophils % 0.5 Absolute Neutrophils 8.4 H Absolute Lymphocytes 0.8 Absolute Monocytes 1.0 Absolute Eosinophils 0.1 Absolute Basophils 0.1 Sodium 140.8 Potassium 4.2 Chloride 99 Carbon Dioxide 29 Anion Gap 13 BUN 20 Creatinine 0.65 Est GFR ( Amer) > 60 Est GFR (Non-Af Amer) > 60 Glucose 163 H Calcium 8.6 Total Bilirubin 0.5 AST 13 L ALT 29 Alkaline Phosphatase 68 Total Protein 6.0 L Albumin 3.4 L Free T4 1.73 Impressions: Chest X-Ray 01/09/17 00:00 IMPRESSION: CARDIAC ENLARGEMENT WITHOUT FAILURE. Assessment & Plan - Diagnosis (1) Acute and chronic respiratory failure with hypercapnia Is this a current diagnosis for this admission?: Yes Plan: NIPPV supplemental oxygen continue current bronchodilator therapy (2) Obesity Qualifiers: Obesity type: unspecified obesity type Obesity classification: unspecified obesity classification Serious obesity comorbidity presence: unspecified whether serious comorbidity present Qualified Code(s): E66.9 - Obesity, unspecified Is this a current diagnosis for this admission?: Yes Plan: Unchanged (3) Other iron deficiency anemias Is this a current diagnosis for this admission?: Yes Plan: Relatively stable Labs- All tests 24 hr 01/07/17 01/08/17 01/08/17 17:20 05:12 05:12 Hgb 9.2 L Hct 27.0 L Plt Count 311 329 PT 13.1 INR 0.93 APTT 32.1 01/09/17 01/10/17 05:13 05:39 Hgb 8.8 L 9.4 L Hct 27.3 L 28.5 L Plt Count 350 PT INR APTT (4) Anxiety Is this a current diagnosis for this admission?: Yes Plan: Generic Name Dose Route Start Last Admin Trade Name Freq PRN Reason Stop Dose Admin Duloxetine HCl 60 mg 01/08/17 10:00 01/10/17 10:40 Cymbalta 30 Mg Capsule.Dr PO 02/07/17 09:59 60 mg DAILY JONES (5) Cardiomyopathy Qualifiers: Cardiomyopathy type: unspecified Qualified Code(s): I42.9 - Cardiomyopathy , unspecified Is this a current diagnosis for this admission?: Yes Plan: Unchanged cardiomegaly
--- NOTE | 2017-01-10 15:03 | PDOC PROGRESS REPORT ---
Subjective Progress Note for:: 01/10/17 Subjective:: Patient seems to be doing better with gradual improvement. Pt is denying any chest arm or neck discomfort. Patient denying any PND, orthopnea. Patient denied any sustained palpitations, dizziness, syncope, near syncope. Patient denying any fever chills. Patient denying any other significant discomfort. Patient is maintaining sinus rhythm. Review of systems: Rest review of systems negative. Medications: Medications have been reviewed. Physical Exam Vital Signs: Temp Pulse Resp BP Pulse Ox 98.4 F 107 H 18 116/61 93 01/10/17 12:22 01/10/17 14:04 01/10/17 14:04 01/10/17 12:22 01/10/17 14:04 Intake & Output 01/09/17 01/10/17 01/11/17 06:59 06:59 06:59 Intake Total 864 861 250 Output Total 300 600 Balance 564 261 250 Weight 120.1 kg 118.5 kg Exam: GENERAL: well-nourished and in no acute distress. Alert and oriented x3 HEAD: Atraumatic, normocephalic. EYES: Pupils equal round and reactive to light, extraocular movements intact, sclera anicteric, conjunctiva are normal. ENT: TMs normal, nares patent, oropharynx clear without exudates. Moist mucous membranes. No oral ulcerations or bleeding gums noted NECK: supple without lymphadenopathy. Trachea is central. No cervical or axillary lymphadenopathy noted. Carotids are 2+, JVD WNL LUNGS: Respiration seems nonlabored, no significant accessory muscle action noted. Breath sounds clear to auscultation bilaterally and equal noted. No wheezes rales or rhonchi noted. No significant dullness noted on percussion. CHEST: Palpation of the chest wall shows mild chest wall tenderness. No other significant abnormalities noted. 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 ABDOMEN: Soft, no significant tenderness appreciated, normoactive bowel sounds. No guarding, no rebound. No rigidity noted . No masses appreciated. EXTREMITIES: Pedal pulses are 1-2+, no calf tenderness noted. No clubbing or cyanosis.trace to 1+ pedal edema noted NEUROLOGICAL: Focused neurological exam showed no significant neurologic deficit. Normal speech, no focal weakness appreciated. PSYCH: Normal mood, normal affect. Judgment and insight within normal limits. SKIN: No significant ecchymosis, rash, ulcerations or signs of pruritus noted. MUSCULOSKELETAL EXAM: No significant joint swelling noted. Results Laboratory Results: 01/10/17 05:39 01/10/17 05:39 01/10/17 01/10/17 01/10/17 05:39 05:39 05:39 WBC 10.4 RBC 3.37 L Hgb 9.4 L Hct 28.5 L MCV 85 MCH 27.9 MCHC 32.9 RDW 17.3 H Plt Count 350 Seg Neutrophils % 80.5 H Lymphocytes % 8.1 L Monocytes % 9.6 Eosinophils % 1.3 Basophils % 0.5 Absolute Neutrophils 8.4 H Absolute Lymphocytes 0.8 Absolute Monocytes 1.0 Absolute Eosinophils 0.1 Absolute Basophils 0.1 Sodium 140.8 Potassium 4.2 Chloride 99 Carbon Dioxide 29 Anion Gap 13 BUN 20 Creatinine 0.65 Est GFR ( Amer) > 60 Est GFR (Non-Af Amer) > 60 Glucose 163 H Calcium 8.6 Total Bilirubin 0.5 AST 13 L ALT 29 Alkaline Phosphatase 68 Total Protein 6.0 L Albumin 3.4 L Free T4 1.73 EKG Comments: Telemetry strip shows sinus rhythm without any sustained tachycardia or bradycardia arrhythmias. Impressions: Chest X-Ray 01/09/17 00:00 IMPRESSION: CARDIAC ENLARGEMENT WITHOUT FAILURE. Assessment & Plan - Diagnosis (1) Chest pain Qualifiers: Chest pain type: other chest pain Qualified Code(s): R07.89 - Other chest pain Is this a current diagnosis for this admission?: Yes (2) Chronic respiratory failure Qualifiers: Respiratory failure complication: unspecified whether with hypoxia or hypercapnia Qualified Code(s): J96.10 - Chronic respiratory failure, unspecified whether with hypoxia or hypercapnia Is this a current diagnosis for this admission?: Yes (3) Diabetes mellitus type 2 in obese Is this a current diagnosis for this admission?: Yes (4) Sleep apnea syndrome Qualifiers: Sleep apnea type: unspecified type Qualified Code(s): G47.30 - Sleep apnea , unspecified Is this a current diagnosis for this admission?: Yes (5) Coronary artery disease Qualifiers: Coronary Disease-Associated Artery/Lesion type: [place] artery [place] vs. transplanted heart: [place] heart Associated angina: without angina Qualified Code(s): I25.10 - Atherosclerotic heart disease of [place] coronary artery without angina pectoris Is this a current diagnosis for this admission?: Yes - Notes Notes: Patient seen by subspecialist including desk top publisher and pulmonary physician. Agree with the recommendation. Patient claims to be generally much improved than yesterday. Chest pain: [place] to be noncardiac in etiology. Cardiac enzymes, multiple are negative. Patient does have significant chest wall tenderness. Chronic respiratory failure: Most likely related to combination of COPD and underlying obesity hypoventilation syndrome. Continue with intermittent positive pressure ventilation therapy. Coronary artery disease: Patient describes recent heart cath. Will try to obtain those records. In the meantime optimize therapy for underlying CAD. Sleep apnea syndrome: Patient currently on noninvasive ventilation intermittently. I will be happy to follow patient in this regard. Diabetes: Currently being managed by bakery decorator. Recommend good control. - Time Time with patient: 15-25 minutes - More than 50% of the time spent coordinating care, discussing management plans with involved caregivers. Management plans discussed with involved personnels. Medical decision making was of moderate to high complexity, patient's has multiple comorbidities. Medications reviewed and adjusted accordingly: Yes
[2017-01-10] MEDS ORDERED: FERUMOXYTOL (NON-ESRD) 510 MG/NS 100 ML IV ONE ×2 (20:00)
[2017-01-10] MEDS ORDERED: CYANOCOBALAMIN (VITAMIN B-12) INJ 1000 MCG/1 ML VIAL IM ONE (20:00)
[2017-01-10] MEDS: ATORVASTATIN CALCIUM 40 MG TABLET PO SCH (21:41)
[2017-01-11] MEDS: IPRATROPIUM/ALBUTEROL 0.5-2.5 MG/3 ML AMPUL NEB SCH ×4 (02:10→21:14)
[2017-01-11] MEDS: GABAPENTIN 300 MG CAPSULE PO SCH ×3 (06:50→21:58)
--- NOTE | 2017-01-11 09:40 | PDOC PROGRESS REPORT ---
Subjective Progress Note for:: 01/11/17 Subjective:: Patient is currently doing well Patient's denied any chest pain denied any shortness of the breath Physical Exam Vital Signs: Temp Pulse Resp BP Pulse Ox 98.9 F 103 H 18 124/56 L 94 01/11/17 07:52 01/11/17 08:58 01/11/17 08:58 01/11/17 07:52 01/11/17 08:58 Intake & Output 01/10/17 01/11/17 01/12/17 06:59 06:59 06:59 Intake Total 861 1755 Output Total 600 420 Balance 261 1335 Weight 118.5 kg 119.6 kg General appearance: PRESENT: no acute distress, well-developed, well-nourished Head exam: PRESENT: atraumatic, normocephalic Eye exam: PRESENT: conjunctiva pink, EOMI, PERRLA. ABSENT: scleral icterus Ear exam: PRESENT: normal external ear exam Mouth exam: PRESENT: moist, tongue midline Neck exam: PRESENT: full ROM. ABSENT: carotid bruit, JVD, lymphadenopathy, thyromegaly Respiratory exam: PRESENT: clear to auscultation rolf Cardiovascular exam: PRESENT: RRR. ABSENT: diastolic murmur, rubs, systolic murmur Pulses: PRESENT: normal dorsalis pedis pul, +2 pedal pulses bilateral Vascular exam: PRESENT: normal capillary refill GI/Abdominal exam: PRESENT: normal bowel sounds, soft. ABSENT: distended, guarding, mass, organolmegaly, rebound, tenderness Rectal exam: PRESENT: deferred Extremities exam: ABSENT: full ROM, left AKA, right AKA, left BKA, right BKA, calf tenderness, joint swelling, pedal edema, tenderness, other Neurological exam: PRESENT: alert, awake, oriented to person, oriented to place , oriented to time, oriented to situation, CN II-XII grossly intact. ABSENT: motor sensory deficit Psychiatric exam: PRESENT: appropriate affect, normal mood. ABSENT: homicidal ideation, suicidal ideation Skin exam: PRESENT: dry, intact, warm. ABSENT: cyanosis, rash Results Laboratory Results: 01/10/17 05:39 01/10/17 05:39 Impressions: Chest X-Ray 01/09/17 00:00 IMPRESSION: CARDIAC ENLARGEMENT WITHOUT FAILURE. Assessment & Plan - Diagnosis (1) Acute and chronic respiratory failure with hypercapnia Is this a current diagnosis for this admission?: Yes Plan: Patient is currently doing fair currently use the BiPAP will get the ABG and the chest x-ray the patient has significant pulmonary history is several ICU admissions will consult pulmonary for continues further evaluations (2) Acute chronic obstructive pulmonary disease with respiratory failure Is this a current diagnosis for this admission?: Yes Plan: Continues to BiPAP (3) Acute combined systolic (congestive) and diastolic (congestive) heart failure Is this a current diagnosis for this admission?: Yes Plan: Continues to current medications (4) Anxiety Is this a current diagnosis for this admission?: Yes Plan: The all stable (5) Chest pain Qualifiers: Chest pain type: other chest pain Qualified Code(s): R07.89 - Other chest pain Is this a current diagnosis for this admission?: Yes Plan: Currently all stable (6) Diabetes mellitus type 2 in obese Is this a current diagnosis for this admission?: Yes Plan: Current medications - Time Time Spent with patient: 15-24 minutes Medications reviewed and adjusted accordingly: Yes Anticipated discharge: Other Within: Other - Inpatient Certification Medical Necessity: Need Close Monitoring Due to Risk of Patient Decompensation Post Hospital Care: D/C Emergency Room Specialist Documentation - Plan Summary Plan Summary: continue to current medications
[2017-01-11] MEDS: ENOXAPARIN SODIUM INJ 40 MG/0.4 ML DISP.SYRIN SUBCUT SCH (10:08)
[2017-01-11] MEDS: SIMETHICONE 80 MG TAB.CHEW PO PRN ×4 (10:09→22:18)
[2017-01-11] MEDS: INSULIN DETEMIR 100 UNIT/ML 3 ML PEN SUBCUT SCH ×2 (10:09→17:35)
[2017-01-11] MEDS: DULOXETINE HCL 30 MG CAPSULE.DR PO SCH (10:09)
[2017-01-11] MEDS: CYANOCOBALAMIN (VITAMIN B-12) INJ 1000 MCG/1 ML VIAL IM SCH (10:09)
[2017-01-11] MEDS: SPIRONOLACTONE 25 MG TABLET PO SCH (10:10)
[2017-01-11] MEDS: ASPIRIN 81 MG TABLET, CHEWABLE PO SCH (10:10)
[2017-01-11] MEDS: FLUTICASONE/SALMETEROL DISKUS 250-50 MCG/DOSE IH SCH ×2 (10:10→21:58)
--- NOTE | 2017-01-11 10:11 | PDOC PROGRESS REPORT ---
Subjective Progress Note for:: 01/11/17 Subjective:: No acute events overnight Physical Exam Vital Signs: Temp Pulse Resp BP Pulse Ox 98.9 F 103 H 18 124/56 L 94 01/11/17 07:52 01/11/17 08:58 01/11/17 08:58 01/11/17 07:52 01/11/17 08:58 Intake & Output 01/10/17 01/11/17 01/12/17 06:59 06:59 06:59 Intake Total 861 1755 Output Total 600 420 Balance 261 1335 Weight 118.5 kg 119.6 kg General appearance: PRESENT: no acute distress, well-developed, well-nourished Head exam: PRESENT: atraumatic, normocephalic Eye exam: PRESENT: conjunctiva pink, EOMI, PERRLA. ABSENT: scleral icterus Ear exam: PRESENT: normal external ear exam Mouth exam: PRESENT: moist, tongue midline Neck exam: ABSENT: carotid bruit, JVD, lymphadenopathy, thyromegaly Respiratory exam: PRESENT: clear to auscultation rolf. ABSENT: rales, rhonchi, wheezes Cardiovascular exam: PRESENT: RRR. ABSENT: diastolic murmur, rubs, systolic murmur Pulses: PRESENT: normal dorsalis pedis pul Vascular exam: PRESENT: normal capillary refill GI/Abdominal exam: PRESENT: normal bowel sounds, soft. ABSENT: distended, guarding, mass, organolmegaly, rebound, tenderness Rectal exam: PRESENT: deferred Extremities exam: PRESENT: full ROM. ABSENT: calf tenderness, clubbing, pedal edema Neurological exam: PRESENT: alert, awake, oriented to person, oriented to place , oriented to time, oriented to situation, CN II-XII grossly intact. ABSENT: motor sensory deficit Psychiatric exam: PRESENT: appropriate affect, normal mood. ABSENT: homicidal ideation, suicidal ideation Skin exam: PRESENT: dry, intact, warm. ABSENT: cyanosis, rash Results Laboratory Results: 01/10/17 05:39 01/10/17 05:39 Impressions: Chest X-Ray 01/09/17 00:00 IMPRESSION: CARDIAC ENLARGEMENT WITHOUT FAILURE. Assessment & Plan - Diagnosis (1) Other iron deficiency anemias Is this a current diagnosis for this admission?: Yes Plan: Patient given IV iron, patient is still hospitalized in 3 days she would benefit from another IV dose. (2) B12 deficiency anemia Qualifiers: Vitamin B12 deficiency anemia type: other dietary B12 deficiency Qualified Code(s): D51.3 - Other dietary vitamin B12 deficiency anemia Plan: She will need to continue B12 shots daily for 10 days, and then monthly for life. - Time Time Spent with patient: 15-24 minutes Critical Time spent with patient: 15-24 minutes
[2017-01-11] MEDS ORDERED: DEXTROSE 40% GEL 15 GM TUBE X 2 PO PRN (13:35)
[2017-01-11] MEDS ORDERED: DEXTROSE 50%-WATER SYRINGE 25 GM/50 ML DOSE IV PRN (13:35)
[2017-01-11] MEDS ORDERED: GLUCAGON,HUMAN RECOMB 1 MG INJ IM PRN (13:35)
[2017-01-11] MEDS ORDERED: DEXTROSE 40% GEL 15 GM TUBE PO PRN (13:35)
[2017-01-11] MEDS ORDERED: DEXTROSE 50%-WATER SYRINGE 12.5 GM/25 ML DOSE IV PRN (13:35)
--- NOTE | 2017-01-11 15:57 | PDOC PROGRESS REPORT ---
Subjective Progress Note for:: 01/11/17 Subjective:: Patient seems to be doing better with gradual improvement. Pt is denying any chest arm or neck discomfort. Patient denying any PND, orthopnea. Patient denied any sustained palpitations, dizziness, syncope, near syncope. Patient denying any fever chills. Patient denying any other significant discomfort. Patient is maintaining sinus rhythm. Review of systems: Rest review of systems negative. Medications: Medications have been reviewed. Physical Exam Vital Signs: Temp Pulse Resp BP Pulse Ox 98.8 F 92 18 120/59 L 97 01/11/17 11:54 01/11/17 14:00 01/11/17 13:56 01/11/17 11:54 01/11/17 13:56 Intake & Output 01/10/17 01/11/17 01/12/17 06:59 06:59 06:59 Intake Total 861 1755 300 Output Total 600 420 Balance 261 1335 300 Weight 118.5 kg 119.6 kg Exam: GENERAL: well-nourished and in no acute distress. Alert and oriented x3 HEAD: Atraumatic, normocephalic. EYES: Pupils equal round and reactive to light, extraocular movements intact, sclera anicteric, conjunctiva are normal. ENT: TMs normal, nares patent, oropharynx clear without exudates. Moist mucous membranes. No oral ulcerations or bleeding gums noted NECK: supple without lymphadenopathy. Trachea is central. No cervical or axillary lymphadenopathy noted. Carotids are 2+, JVD WNL LUNGS: Respiration seems nonlabored, no significant accessory muscle action noted. Breath sounds clear to auscultation bilaterally and equal noted. No wheezes rales or rhonchi noted. No significant dullness noted on percussion. CHEST: Palpation of the chest wall shows no significant chest wall tenderness. No other significant abnormalities noted. 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 ABDOMEN: Soft, no significant tenderness appreciated, normoactive bowel sounds. No guarding, no rebound. No rigidity noted . No masses appreciated. EXTREMITIES: Pedal pulses are 1-2+, no calf tenderness noted. No clubbing or cyanosis.trace to 1+ pedal edema noted NEUROLOGICAL: Focused neurological exam showed no significant neurologic deficit. Normal speech, no focal weakness appreciated. PSYCH: Normal mood, normal affect. Judgment and insight within normal limits. SKIN: No significant ecchymosis, rash, ulcerations or signs of pruritus noted. MUSCULOSKELETAL EXAM: No significant joint swelling noted. Results Laboratory Results: 01/10/17 05:39 01/10/17 05:39 01/09/17 05:13 Transferrin 268 EKG Comments: Sinus rhythm without any sustained tachycardia or bradycardia arrhythmias. Impressions: Chest X-Ray 01/09/17 00:00 IMPRESSION: CARDIAC ENLARGEMENT WITHOUT FAILURE. Assessment & Plan - Diagnosis (1) Chest pain Qualifiers: Chest pain type: other chest pain Qualified Code(s): R07.89 - Other chest pain Is this a current diagnosis for this admission?: Yes (2) Chronic respiratory failure Qualifiers: Respiratory failure complication: unspecified whether with hypoxia or hypercapnia Qualified Code(s): J96.10 - Chronic respiratory failure, unspecified whether with hypoxia or hypercapnia Is this a current diagnosis for this admission?: Yes (3) Diabetes mellitus type 2 in obese Is this a current diagnosis for this admission?: Yes (4) Sleep apnea syndrome Qualifiers: Sleep apnea type: unspecified type Qualified Code(s): G47.30 - Sleep apnea , unspecified Is this a current diagnosis for this admission?: Yes (5) Coronary artery disease Qualifiers: Coronary Disease-Associated Artery/Lesion type: [place] artery [place] vs. transplanted heart: [place] heart Associated angina: without angina Qualified Code(s): I25.10 - Atherosclerotic heart disease of [place] coronary artery without angina pectoris Is this a current diagnosis for this admission?: Yes - Notes Notes: Anemia: Appreciate hematology consult. Chest pain: [place] to be noncardiac in etiology. Cardiac enzymes, multiple are negative. Patient does have significant chest wall tenderness. Chronic respiratory failure: Most likely related to combination of COPD and underlying obesity hypoventilation syndrome. Continue with intermittent positive pressure ventilation therapy. Coronary artery disease: Patient describes recent heart cath. Will try to obtain those records. In the meantime optimize therapy for underlying CAD. Sleep apnea syndrome: Patient currently on noninvasive ventilation intermittently. I will be happy to follow patient in this regard. Diabetes: Currently being managed by rubber grinder. Recommend good control. No new recommendation. Will sign off. Please reconsult if needed. - Time Time with patient: 15-25 minutes Medications reviewed and adjusted accordingly: Yes
[2017-01-11] MEDS: ATORVASTATIN CALCIUM 40 MG TABLET PO SCH (21:58)
[2017-01-12] MEDS: IPRATROPIUM/ALBUTEROL 0.5-2.5 MG/3 ML AMPUL NEB SCH ×4 (02:08→20:46)
[2017-01-12] MEDS: GABAPENTIN 300 MG CAPSULE PO SCH ×3 (06:21→21:08)
[2017-01-12] MEDS: TRAMADOL HCL 50 MG TABLET PO PRN ×3 (06:22→20:23)
[2017-01-12] MEDS ORDERED: SIMETHICONE 80 MG TAB.CHEW PO PRN (09:45)
[2017-01-12] MEDS: ENOXAPARIN SODIUM INJ 40 MG/0.4 ML DISP.SYRIN SUBCUT SCH (09:50)
[2017-01-12] MEDS: SPIRONOLACTONE 25 MG TABLET PO SCH (09:50)
[2017-01-12] MEDS: INSULIN DETEMIR 100 UNIT/ML 3 ML PEN SUBCUT SCH ×2 (09:50→16:44)
[2017-01-12] MEDS: DULOXETINE HCL 30 MG CAPSULE.DR PO SCH (09:51)
[2017-01-12] MEDS: ASPIRIN 81 MG TABLET, CHEWABLE PO SCH (09:51)
[2017-01-12] MEDS: FLUTICASONE/SALMETEROL DISKUS 250-50 MCG/DOSE IH SCH ×2 (09:52→21:08)
[2017-01-12] MEDS: CYANOCOBALAMIN (VITAMIN B-12) INJ 1000 MCG/1 ML VIAL IM SCH (09:52)
--- NOTE | 2017-01-12 10:05 | PDOC PROGRESS REPORT ---
Subjective Progress Note for:: 01/12/17 Subjective:: Patient is currently doing fair No chest pain no shortness of the breath Physical Exam Vital Signs: Temp Pulse Resp BP Pulse Ox 98.4 F 102 H 18 118/45 L 96 01/12/17 07:59 01/12/17 08:27 01/12/17 08:28 01/12/17 07:59 01/12/17 08:27 Intake & Output 01/11/17 01/12/17 01/13/17 06:59 06:59 06:59 Intake Total 1755 1013 Output Total 420 300 Balance 1335 713 Weight 119.6 kg 116.5 kg General appearance: PRESENT: no acute distress, well-developed, well-nourished Head exam: PRESENT: atraumatic, normocephalic Eye exam: PRESENT: conjunctiva pink, EOMI, PERRLA. ABSENT: scleral icterus Ear exam: PRESENT: normal external ear exam Mouth exam: PRESENT: moist, tongue midline Neck exam: PRESENT: full ROM. ABSENT: carotid bruit, JVD, lymphadenopathy, thyromegaly Respiratory exam: PRESENT: clear to auscultation rolf Cardiovascular exam: PRESENT: RRR. ABSENT: diastolic murmur, rubs, systolic murmur Pulses: PRESENT: normal dorsalis pedis pul, +2 pedal pulses bilateral Vascular exam: PRESENT: normal capillary refill GI/Abdominal exam: PRESENT: normal bowel sounds, soft. ABSENT: distended, guarding, mass, organolmegaly, rebound, tenderness Rectal exam: PRESENT: deferred Neurological exam: PRESENT: alert, awake, oriented to person, oriented to place , oriented to time, oriented to situation, CN II-XII grossly intact. ABSENT: motor sensory deficit Psychiatric exam: PRESENT: appropriate affect, normal mood. ABSENT: homicidal ideation, suicidal ideation Skin exam: PRESENT: dry, intact, warm. ABSENT: cyanosis, rash Results Laboratory Results: 01/10/17 05:39 01/10/17 05:39 01/09/17 05:13 Transferrin 268 Impressions: Chest X-Ray 01/09/17 00:00 IMPRESSION: CARDIAC ENLARGEMENT WITHOUT FAILURE. Assessment & Plan - Diagnosis (1) Acute and chronic respiratory failure with hypercapnia Is this a current diagnosis for this admission?: Yes Plan: Patient is currently doing fair currently use the BiPAP will get the ABG and the chest x-ray the patient has significant pulmonary history is several ICU admissions will consult pulmonary for continues further evaluations (2) Acute chronic obstructive pulmonary disease with respiratory failure Is this a current diagnosis for this admission?: Yes Plan: Continues to BiPAP (3) Acute combined systolic (congestive) and diastolic (congestive) heart failure Is this a current diagnosis for this admission?: Yes Plan: Continues to current medications (4) Anxiety Is this a current diagnosis for this admission?: Yes Plan: The all stable (5) Chest pain Qualifiers: Chest pain type: other chest pain Qualified Code(s): R07.89 - Other chest pain Is this a current diagnosis for this admission?: Yes Plan: All resolved (6) Diabetes mellitus type 2 in obese Is this a current diagnosis for this admission?: Yes Plan: Current medications - Time Time Spent with patient: 15-24 minutes Medications reviewed and adjusted accordingly: Yes Anticipated discharge: SNF, Other Within: Other - Inpatient Certification Medical Necessity: Need Close Monitoring Due to Risk of Patient Decompensation 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
--- NOTE | 2017-01-12 13:19 | PDOC PROGRESS REPORT ---
Subjective Progress Note for:: 01/12/17 Subjective:: Patient doing a little bit better today Physical Exam Vital Signs: Temp Pulse Resp BP Pulse Ox 99.2 F 107 H 20 114/54 L 94 01/12/17 11:50 01/12/17 11:50 01/12/17 11:50 01/12/17 11:50 01/12/17 11:50 Intake & Output 01/11/17 01/12/17 01/13/17 06:59 06:59 06:59 Intake Total 1755 1013 240 Output Total 420 300 Balance 1335 713 240 Weight 119.6 kg 116.5 kg General appearance: PRESENT: no acute distress, well-developed, well-nourished Head exam: PRESENT: atraumatic, normocephalic Eye exam: PRESENT: conjunctiva pink, EOMI, PERRLA. ABSENT: scleral icterus Ear exam: PRESENT: normal external ear exam Mouth exam: PRESENT: moist, tongue midline Neck exam: ABSENT: carotid bruit, JVD, lymphadenopathy, thyromegaly Respiratory exam: PRESENT: clear to auscultation rolf. ABSENT: rales, rhonchi, wheezes Cardiovascular exam: PRESENT: RRR. ABSENT: diastolic murmur, rubs, systolic murmur Pulses: PRESENT: normal dorsalis pedis pul Vascular exam: PRESENT: normal capillary refill GI/Abdominal exam: PRESENT: normal bowel sounds, soft. ABSENT: distended, guarding, mass, organolmegaly, rebound, tenderness Rectal exam: PRESENT: deferred Extremities exam: PRESENT: full ROM. ABSENT: calf tenderness, clubbing, pedal edema Neurological exam: PRESENT: alert, awake, oriented to person, oriented to place , oriented to time, oriented to situation, CN II-XII grossly intact. ABSENT: motor sensory deficit Psychiatric exam: PRESENT: appropriate affect, normal mood. ABSENT: homicidal ideation, suicidal ideation Skin exam: PRESENT: dry, intact, warm. ABSENT: cyanosis, rash Results Laboratory Results: 01/10/17 05:39 01/10/17 05:39 01/09/17 05:13 Transferrin 268 Impressions: Chest X-Ray 01/09/17 00:00 IMPRESSION: CARDIAC ENLARGEMENT WITHOUT FAILURE. Assessment & Plan - Diagnosis (1) Other iron deficiency anemias Is this a current diagnosis for this admission?: Yes Plan: We will give another dose of IV iron today, that should complete all of her IV iron therapy. It would be beneficial for her to get iron studies drawn in 2-3 months by her PCP. Will sign off thank you for the opportunity to assist in this patient's care. (2) B12 deficiency anemia Qualifiers: Vitamin B12 deficiency anemia type: other dietary B12 deficiency Qualified Code(s): D51.3 - Other dietary vitamin B12 deficiency anemia Plan: Continue B12 daily until patient is discharged then transition to monthly B12. - Time Time Spent with patient: 15-24 minutes Critical Time spent with patient: 15-24 minutes
[2017-01-12] MEDS ORDERED: FERUMOXYTOL (NON-ESRD) 510 MG/NS 100 ML IV ONE ×2 (15:00)
[2017-01-12] MEDS: ATORVASTATIN CALCIUM 40 MG TABLET PO SCH (21:08)
[2017-01-12] MEDS: DIPHENHYDRAMINE HCL 25 MG CAPSULE PO PRN (23:29)
[2017-01-13] MEDS: IPRATROPIUM/ALBUTEROL 0.5-2.5 MG/3 ML AMPUL NEB SCH ×4 (02:32→20:13)
[2017-01-13] MEDS: TRAMADOL HCL 50 MG TABLET PO PRN ×3 (04:50→22:21)
[2017-01-13] MEDS: GABAPENTIN 300 MG CAPSULE PO SCH ×3 (05:59→22:05)
[2017-01-13 06:15] LABS: HEMATOCRIT 29.1 % (36.0-47.0); HEMOGLOBIN 9.3 g/dL (12.0-15.5); HGB HCT DIFFERENCE -1.2; MEAN CORPUSCULAR HEMOGLOBIN 26.9 pg (27.0-33.4); MEAN CORPUSCULAR VOLUME 84 fl (80-97); RED BLOOD COUNT 3.46 10^6/uL (3.72-5.28); RED CELL DISTRIBUTION WIDTH 17.5 % (11.5-14.0)
[2017-01-13] MEDS ORDERED: ALBUTEROL SULFATE HFA (90 MCG/PUFF) 200 PUFF/8.5 GM MDI IH PRN (07:27)
[2017-01-13] MEDS: ENOXAPARIN SODIUM INJ 40 MG/0.4 ML DISP.SYRIN SUBCUT SCH (09:21)
[2017-01-13] MEDS: SPIRONOLACTONE 25 MG TABLET PO SCH (09:22)
[2017-01-13] MEDS: INSULIN DETEMIR 100 UNIT/ML 3 ML PEN SUBCUT SCH ×2 (09:22→17:50)
[2017-01-13] MEDS: DULOXETINE HCL 30 MG CAPSULE.DR PO SCH (09:22)
[2017-01-13] MEDS: ASPIRIN 81 MG TABLET, CHEWABLE PO SCH (09:22)
[2017-01-13] MEDS: CYANOCOBALAMIN (VITAMIN B-12) INJ 1000 MCG/1 ML VIAL IM SCH (09:23)
[2017-01-13] MEDS: FLUTICASONE/SALMETEROL DISKUS 250-50 MCG/DOSE IH SCH ×2 (09:23→22:07)
[2017-01-13] MEDS: INSULIN LISPRO 100 UNIT/ML 3 ML VIAL SUBCUT PRN (12:26)
--- NOTE | 2017-01-13 21:44 | PDOC PROGRESS REPORT ---
Subjective Progress Note for:: 01/13/17 Subjective:: She was seen by the bedside she has no new complaints Reason For Visit: CHEST PAIN, COPD Physical Exam Vital Signs: Temp Pulse Resp BP Pulse Ox 98.4 F 100 19 133/75 H 95 01/13/17 15:32 01/13/17 20:00 01/13/17 20:00 01/13/17 15:32 01/13/17 20:00 Intake & Output 01/12/17 01/13/17 01/14/17 06:59 06:59 06:59 Intake Total 1013 1132 716 Output Total 300 200 900 Balance 713 932 -184 Weight 116.5 kg 116.9 kg Head exam: PRESENT: atraumatic, normocephalic Eye exam: PRESENT: conjunctiva pink, EOMI, PERRLA Ear exam: PRESENT: normal external ear exam Mouth exam: PRESENT: moist, tongue midline Neck exam: PRESENT: full ROM Respiratory exam: PRESENT: rhonchi Cardiovascular exam: PRESENT: RRR, +S1, +S2 Vascular exam: PRESENT: normal capillary refill GI/Abdominal exam: PRESENT: soft Rectal exam: PRESENT: deferred Neurological exam: PRESENT: alert, awake, oriented to person, oriented to place , oriented to time, oriented to situation, CN II-XII grossly intact. ABSENT: motor sensory deficit Psychiatric exam: PRESENT: appropriate affect, normal mood. ABSENT: homicidal ideation, suicidal ideation Skin exam: PRESENT: dry, intact, warm. ABSENT: cyanosis, rash Results Laboratory Results: 01/13/17 06:00 01/10/17 05:39 01/13/17 06:00 WBC 9.0 RBC 3.46 L Hgb 9.3 L Hct 29.1 L MCV 84 MCH 26.9 L MCHC 32.0 RDW 17.5 H Plt Count 360 Impressions: Chest X-Ray 01/09/17 00:00 IMPRESSION: CARDIAC ENLARGEMENT WITHOUT FAILURE. Assessment & Plan - Diagnosis (1) Acute and chronic respiratory failure with hypercapnia Is this a current diagnosis for this admission?: Yes (2) Acute and chronic respiratory failure with hypercapnia Is this a current diagnosis for this admission?: Yes
[2017-01-13] MEDS: ATORVASTATIN CALCIUM 40 MG TABLET PO SCH (22:05)
[2017-01-13] MEDS: DIPHENHYDRAMINE HCL 25 MG CAPSULE PO PRN (22:20)
[2017-01-14] MEDS: IPRATROPIUM/ALBUTEROL 0.5-2.5 MG/3 ML AMPUL NEB SCH ×4 (01:18→20:42)
[2017-01-14] MEDS: GABAPENTIN 300 MG CAPSULE PO SCH ×3 (06:02→21:35)
[2017-01-14] MEDS: FLUTICASONE/SALMETEROL DISKUS 250-50 MCG/DOSE IH SCH ×2 (10:41→21:34)
[2017-01-14] MEDS: CYANOCOBALAMIN (VITAMIN B-12) INJ 1000 MCG/1 ML VIAL IM SCH (10:41)
[2017-01-14] MEDS: DULOXETINE HCL 30 MG CAPSULE.DR PO SCH (10:41)
[2017-01-14] MEDS: SPIRONOLACTONE 25 MG TABLET PO SCH (10:42)
[2017-01-14] MEDS: ASPIRIN 81 MG TABLET, CHEWABLE PO SCH (10:42)
[2017-01-14] MEDS: INSULIN DETEMIR 100 UNIT/ML 3 ML PEN SUBCUT SCH ×2 (10:44→17:30)
[2017-01-14] MEDS: ENOXAPARIN SODIUM INJ 40 MG/0.4 ML DISP.SYRIN SUBCUT SCH (10:45)
[2017-01-14] MEDS: INSULIN LISPRO 100 UNIT/ML 3 ML VIAL SUBCUT PRN (13:17)
[2017-01-14] MEDS: TRAMADOL HCL 50 MG TABLET PO PRN (20:00)
[2017-01-14] MEDS: DIPHENHYDRAMINE HCL 25 MG CAPSULE PO PRN (20:01)
--- NOTE | 2017-01-14 21:15 | PDOC PROGRESS REPORT ---
Subjective Progress Note for:: 01/14/17 Subjective:: She was seen by the bedside she has no new complaints Reason For Visit: CHEST PAIN, COPD Physical Exam Vital Signs: Temp Pulse Resp BP Pulse Ox 98.8 F 101 H 20 135/64 H 96 01/14/17 20:10 01/14/17 20:10 01/14/17 20:10 01/14/17 20:10 01/14/17 20:10 Intake & Output 01/13/17 01/14/17 01/15/17 06:59 06:59 06:59 Intake Total 1132 719 814 Output Total 549 617 5982 Balance 582 -055 -363 Weight 116.9 kg 117.6 kg General appearance: PRESENT: no acute distress, well-developed, well-nourished Head exam: PRESENT: atraumatic, normocephalic Eye exam: PRESENT: conjunctiva pink, EOMI, PERRLA Ear exam: PRESENT: normal external ear exam Mouth exam: PRESENT: moist, tongue midline Neck exam: PRESENT: full ROM Cardiovascular exam: PRESENT: RRR, +S1, +S2 Pulses: PRESENT: normal dorsalis pedis pul, +2 pedal pulses bilateral Vascular exam: PRESENT: normal capillary refill GI/Abdominal exam: PRESENT: normal bowel sounds, soft Rectal exam: PRESENT: deferred Neurological exam: PRESENT: alert. ABSENT: motor sensory deficit Psychiatric exam: PRESENT: appropriate affect, normal mood Skin exam: PRESENT: dry, intact, warm Results Laboratory Results: 01/13/17 06:00 01/10/17 05:39 Impressions: Chest X-Ray 01/09/17 00:00 IMPRESSION: CARDIAC ENLARGEMENT WITHOUT FAILURE. Assessment & Plan - Diagnosis (1) Acute and chronic respiratory failure with hypercapnia Is this a current diagnosis for this admission?: Yes (2) Acute and chronic respiratory failure with hypercapnia Is this a current diagnosis for this admission?: Yes
[2017-01-14] MEDS: ATORVASTATIN CALCIUM 40 MG TABLET PO SCH (21:34)
[2017-01-14] MEDS: ACETAMINOPHEN 325 MG TABLET PO PRN (21:35)
[2017-01-15] MEDS: IPRATROPIUM/ALBUTEROL 0.5-2.5 MG/3 ML AMPUL NEB SCH ×3 (01:52→14:19)
[2017-01-15] MEDS: TRAMADOL HCL 50 MG TABLET PO PRN (04:50)
[2017-01-15] MEDS: GABAPENTIN 300 MG CAPSULE PO SCH ×2 (05:05→15:30)
[2017-01-15] MEDS: ACETAMINOPHEN 325 MG TABLET PO PRN (06:26)
[2017-01-15] MEDS: INSULIN DETEMIR 100 UNIT/ML 3 ML PEN SUBCUT SCH (10:29)
[2017-01-15] MEDS: DULOXETINE HCL 30 MG CAPSULE.DR PO SCH (10:31)
[2017-01-15] MEDS: SPIRONOLACTONE 25 MG TABLET PO SCH (10:31)
[2017-01-15] MEDS: ASPIRIN 81 MG TABLET, CHEWABLE PO SCH (10:31)
[2017-01-15] MEDS: CYANOCOBALAMIN (VITAMIN B-12) INJ 1000 MCG/1 ML VIAL IM SCH (10:33)
[2017-01-15] MEDS: ENOXAPARIN SODIUM INJ 40 MG/0.4 ML DISP.SYRIN SUBCUT SCH (10:34)
[2017-01-15] MEDS: FLUTICASONE/SALMETEROL DISKUS 250-50 MCG/DOSE IH SCH (10:35)
[2017-01-15 12:48] VITALS: BP 129/65
--- NOTE | 2017-01-15 14:59 | PDOC TRANSFER SUMMARY ---
General - Admit/Disc Date/PCP Admission Date/Primary Care Provider: 01/08/17 14:45 TANISHA POLLARD MD Discharge Date: 01/15/17 - Discharge Diagnosis (1) Acute and chronic respiratory failure with hypercapnia Is this a current diagnosis for this admission?: Yes (2) Acute and chronic respiratory failure with hypercapnia Is this a current diagnosis for this admission?: Yes (4) Obesity Is this a current diagnosis for this admission?: Yes (5) Abnormality of gait Is this a current diagnosis for this admission?: Yes (6) Anxiety Is this a current diagnosis for this admission?: Yes (7) COPD (chronic obstructive pulmonary disease) Is this a current diagnosis for this admission?: Yes (8) Chest pain Is this a current diagnosis for this admission?: Yes (9) Coronary artery disease Is this a current diagnosis for this admission?: Yes - Additional Information Resuscitation Status: Full Code Discharge Activity: Activity As Tolerated Home Medications: Albuterol Sulfate [Proair HFA] 2 puff IH Q4 PRN 01/07/17 Aspirin [Aspirin 81 mg Chewable Tablet] 81 mg PO DAILY 01/07/17 Atorvastatin Calcium 40 mg PO QHS 01/07/17 Duloxetine HCl [Cymbalta] 60 mg PO DAILY 01/07/17 Fluticasone/Salmeterol [Advair 250-50 Diskus 28 dose] 1 inh IH Q12H 01/07/17 Gabapentin 300 mg PO Q8 01/07/17 Insulin Detemir [Levemir Flextouch] 50 unit SQ BID 01/07/17 Magnesium Oxide 400 mg PO DAILY 01/07/17 Melatonin/Pyridoxine HCl (B6) [Melatonin 3 mg Tablet] 2 each PO QHS 01/07/17 Metformin HCl 500 mg PO WSUPPER 01/07/17 Simethicone [Gas Relief 80] 80 mg PO MEALSHS PRN 01/07/17 Spironolactone [Aldactone 25 mg Tablet] 12.5 mg PO DAILY 01/07/17 Cyanocobalamin (Vitamin B-12) [Vitamin B-12 Inj 1000 Mcg/1 ml Vial] 1,000 mcg SUBCUT Q7D #1000 vial 01/15/17 Tramadol HCl [Ultram] 50 mg PO Q6HP PRN #120 tablet 01/15/17 History of Present Illness Admission Date/PCP: 01/08/17 14:45 TANISHA POLLARD MD History of Present Illness: Patient was admitted for the management of chest pain, acute hypercapnia respiratory failure Hospital Course Hospital Course: She was treated with noninvasive positive pressure ventilation, BiPAP, there was no evidence of acute myocardial injury, the 3 sets of cardiac enzymes were negative for acute cardiac injury. She was also found to have B12 deficiency anemia she was treated with B12 parenterally. 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 She has chronic pain, this was treated with tramadol Physical Exam Vital Signs: Temp Pulse Resp BP Pulse Ox 98.3 F 97 22 H 129/65 H 97 01/15/17 11:22 01/15/17 11:22 01/15/17 11:22 01/15/17 11:22 01/15/17 11:22 Intake & Output 01/14/17 01/15/17 01/16/17 06:59 06:59 06:59 Intake Total 719 817 459 Output Total 1100 2090 200 Balance -381 -1273 259 Weight 117.6 kg 118.6 kg General appearance: PRESENT: no acute distress, well-developed, well-nourished Head exam: PRESENT: atraumatic, normocephalic Eye exam: PRESENT: conjunctiva pink, EOMI, PERRLA Ear exam: PRESENT: normal external ear exam Mouth exam: PRESENT: moist, tongue midline Respiratory exam: PRESENT: clear to auscultation rolf Cardiovascular exam: PRESENT: RRR Pulses: PRESENT: normal dorsalis pedis pul Vascular exam: PRESENT: normal capillary refill GI/Abdominal exam: PRESENT: normal bowel sounds, soft Rectal exam: PRESENT: deferred Extremities exam: PRESENT: full ROM Neurological exam: PRESENT: alert, awake, oriented to person, oriented to place , oriented to time, oriented to situation, CN II-XII grossly intact Psychiatric exam: PRESENT: appropriate affect, normal mood Skin exam: PRESENT: dry, intact, warm Results Laboratory Results: 01/13/17 06:00 01/10/17 05:39 Impressions: Chest X-Ray 01/09/17 00:00 IMPRESSION: CARDIAC ENLARGEMENT WITHOUT FAILURE.
--- NOTE | 2017-01-16 12:22 | PDOC PROGRESS REPORT ---
Subjective Progress Note for:: 01/13/17 Subjective:: Slightly better but most of my PAP Reason For Visit: CHEST PAIN, COPD Physical Exam Vital Signs: Temp Pulse Resp BP Pulse Ox 100.3 F 106 H 24 H 128/60 H 95 01/15/17 06:00 01/15/17 06:00 01/15/17 06:00 01/15/17 06:00 01/15/17 06:00 Intake & Output 01/14/17 01/15/17 01/16/17 06:59 06:59 06:59 Intake Total 719 817 Output Total 1100 2090 Balance -381 -5279 Weight 117.6 kg 118.6 kg General appearance: PRESENT: cooperative, disheveled, mild distress, morbidly obese, well-developed. ABSENT: no acute distress, hard of hearing, obese, severe distress Head exam: PRESENT: atraumatic, normocephalic Eye exam: PRESENT: conjunctiva pale, EOMI. ABSENT: conjunctival injection, conjunctiva pink, nystagmus, periorbital swelling, scleral icterus Mouth exam: PRESENT: dry mucosa, neck supple, tongue midline. ABSENT: laceration Neck exam: ABSENT: carotid bruit, JVD, lymphadenopathy, thyromegaly, tracheal deviation, tracheostomy Respiratory exam: PRESENT: decreased breath sounds, prolonged expiratory phas, rales, rhonchi, symmetrical, unlabored, wheezes. ABSENT: accessory muscle use, chest wall tenderness, clear to auscultation rolf, crackles, retraction, stridor , tachypnea Cardiovascular exam: PRESENT: RRR, +S1, +S2. ABSENT: rubs Pulses: PRESENT: normal radial pulses GI/Abdominal exam: PRESENT: normal bowel sounds, soft. ABSENT: distended, guarding, mass, organolmegaly, rebound, tenderness Extremities exam: PRESENT: joint swelling. ABSENT: calf tenderness, clubbing Musculoskeletal exam: ABSENT: ambulatory, deformity, dislocation Neurological exam: PRESENT: alert, awake Psychiatric exam: PRESENT: normal mood Skin exam: PRESENT: dry, warm Results Laboratory Results: 01/13/17 06:00 01/10/17 05:39 Impressions: Chest X-Ray 01/09/17 00:00 IMPRESSION: CARDIAC ENLARGEMENT WITHOUT FAILURE. Assessment & Plan - Diagnosis (1) Acute and chronic respiratory failure with hypercapnia Is this a current diagnosis for this admission?: Yes Plan: Dependent on noninvasive positive pressure ventilation (2) Obesity Qualifiers: Obesity type: unspecified obesity type Obesity classification: unspecified obesity classification Serious obesity comorbidity presence: unspecified whether serious comorbidity present Qualified Code(s): E66.9 - Obesity, unspecified Is this a current diagnosis for this admission?: Yes (3) Other iron deficiency anemias Is this a current diagnosis for this admission?: Yes Plan: Relatively stable Labs- All tests 24 hr 01/07/17 01/08/17 01/08/17 17:20 05:12 05:12 Hgb 9.2 L Hct 27.0 L Plt Count 311 329 PT 13.1 INR 0.93 APTT 32.1 01/09/17 01/10/17 05:13 05:39 Hgb 8.8 L 9.4 L Hct 27.3 L 28.5 L Plt Count 350 PT INR APTT (4) Anxiety Is this a current diagnosis for this admission?: Yes Plan: Generic Name Dose Route Start Last Admin Trade Name Freq PRN Reason Stop Dose Admin Duloxetine HCl 60 mg 01/08/17 10:00 01/10/17 10:40 Cymbalta 30 Mg Capsule.Dr PO 02/07/17 09:59 60 mg DAILY JONES (5) Cardiomyopathy Qualifiers: Cardiomyopathy type: unspecified Qualified Code(s): I42.9 - Cardiomyopathy , unspecified Is this a current diagnosis for this admission?: Yes Plan: Unchanged cardiomegaly
--- NOTE | 2017-01-16 12:23 | PDOC PROGRESS REPORT ---
Subjective Progress Note for:: 01/15/17 Subjective:: a little better wearing pap Reason For Visit: CHEST PAIN, COPD Physical Exam Vital Signs: Temp Pulse Resp BP Pulse Ox 100.3 F 106 H 24 H 128/60 H 95 01/15/17 06:00 01/15/17 06:00 01/15/17 06:00 01/15/17 06:00 01/15/17 06:00 Intake & Output 01/14/17 01/15/17 01/16/17 06:59 06:59 06:59 Intake Total 719 817 Output Total 1100 2090 Balance -381 -1273 Weight 117.6 kg 118.6 kg General appearance: PRESENT: cooperative, disheveled, morbidly obese, well- developed. ABSENT: no acute distress, hard of hearing, obese, severe distress Head exam: PRESENT: atraumatic, normocephalic Eye exam: PRESENT: conjunctiva pale, EOMI. ABSENT: conjunctival injection, conjunctiva pink, nystagmus, periorbital swelling, scleral icterus Mouth exam: PRESENT: dry mucosa, neck supple, tongue midline. ABSENT: laceration Neck exam: ABSENT: carotid bruit, JVD, lymphadenopathy, thyromegaly, tracheal deviation, tracheostomy Respiratory exam: PRESENT: decreased breath sounds, prolonged expiratory phas, rhonchi, symmetrical, tachypnea, unlabored, wheezes. ABSENT: accessory muscle use, chest wall tenderness, clear to auscultation rolf, crackles, rales, retraction, stridor Cardiovascular exam: PRESENT: RRR, +S1, +S2. ABSENT: rubs Pulses: PRESENT: normal radial pulses GI/Abdominal exam: PRESENT: normal bowel sounds, soft. ABSENT: distended, guarding, mass, organolmegaly, rebound, tenderness Gentrourinary exam: PRESENT: indwelling catheter Extremities exam: ABSENT: calf tenderness, clubbing, joint swelling Musculoskeletal exam: ABSENT: ambulatory, deformity, dislocation Neurological exam: PRESENT: alert, awake Psychiatric exam: PRESENT: normal mood Skin exam: PRESENT: dry, warm Results Laboratory Results: 01/13/17 06:00 01/10/17 05:39 Impressions: Chest X-Ray 01/09/17 00:00 IMPRESSION: CARDIAC ENLARGEMENT WITHOUT FAILURE. Assessment & Plan - Diagnosis (1) Acute and chronic respiratory failure with hypercapnia Is this a current diagnosis for this admission?: Yes Plan: Improved but still dependent on noninvasive positive pressure ventilation (2) Obesity Qualifiers: Obesity type: unspecified obesity type Obesity classification: unspecified obesity classification Serious obesity comorbidity presence: unspecified whether serious comorbidity present Qualified Code(s): E66.9 - Obesity, unspecified Is this a current diagnosis for this admission?: Yes (3) Other iron deficiency anemias Is this a current diagnosis for this admission?: Yes (4) Anxiety Is this a current diagnosis for this admission?: Yes (5) Cardiomyopathy Qualifiers: Cardiomyopathy type: unspecified Qualified Code(s): I42.9 - Cardiomyopathy , unspecified Is this a current diagnosis for this admission?: Yes
--- NOTE | 2017-01-16 12:24 | PDOC PROGRESS REPORT ---
Subjective Progress Note for:: 01/15/17 Subjective:: feeling better off of noninvasive positive pressure ventilation eating or postprandial Reason For Visit: CHEST PAIN, COPD Physical Exam Vital Signs: Temp Pulse Resp BP Pulse Ox 100.3 F 106 H 24 H 128/60 H 95 01/15/17 06:00 01/15/17 06:00 01/15/17 06:00 01/15/17 06:00 01/15/17 06:00 Intake & Output 01/14/17 01/15/17 01/16/17 06:59 06:59 06:59 Intake Total 719 817 Output Total 1100 2090 Balance -381 -3270 Weight 117.6 kg 118.6 kg General appearance: PRESENT: cooperative, disheveled, morbidly obese, well- developed. ABSENT: no acute distress, hard of hearing, mild distress, obese, severe distress, thin Head exam: PRESENT: atraumatic, normocephalic Eye exam: PRESENT: conjunctiva pale, EOMI. ABSENT: conjunctival injection, conjunctiva pink, nystagmus, periorbital swelling, scleral icterus Mouth exam: PRESENT: dry mucosa, neck supple, tongue midline. ABSENT: laceration Neck exam: ABSENT: carotid bruit, JVD, lymphadenopathy, thyromegaly, tracheal deviation, tracheostomy Respiratory exam: PRESENT: decreased breath sounds, prolonged expiratory phas, rhonchi, symmetrical, unlabored, wheezes. ABSENT: accessory muscle use, chest wall tenderness, clear to auscultation rolf, crackles, rales, retraction, stridor , tachypnea Cardiovascular exam: PRESENT: RRR, +S1, +S2 GI/Abdominal exam: PRESENT: normal bowel sounds, soft. ABSENT: distended, guarding, mass, organolmegaly, rebound, tenderness Extremities exam: ABSENT: calf tenderness, clubbing, joint swelling Musculoskeletal exam: ABSENT: ambulatory, deformity, dislocation Neurological exam: PRESENT: alert, awake Psychiatric exam: PRESENT: normal mood Skin exam: PRESENT: dry, warm Results Laboratory Results: 01/13/17 06:00 01/10/17 05:39 Impressions: Chest X-Ray 01/09/17 00:00 IMPRESSION: CARDIAC ENLARGEMENT WITHOUT FAILURE. Assessment & Plan - Diagnosis (1) Acute and chronic respiratory failure with hypercapnia Is this a current diagnosis for this admission?: Yes Plan: Improved but still dependent on noninvasive positive pressure ventilation (2) Obesity Qualifiers: Obesity type: unspecified obesity type Obesity classification: unspecified obesity classification Serious obesity comorbidity presence: unspecified whether serious comorbidity present Qualified Code(s): E66.9 - Obesity, unspecified Is this a current diagnosis for this admission?: Yes Plan: Unchanged (3) Other iron deficiency anemias Is this a current diagnosis for this admission?: Yes Plan: Relatively stable Labs- All tests 24 hr 01/07/17 01/08/17 01/08/17 17:20 05:12 05:12 Hgb 9.2 L Hct 27.0 L Plt Count 311 329 PT 13.1 INR 0.93 APTT 32.1 01/09/17 01/10/17 05:13 05:39 Hgb 8.8 L 9.4 L Hct 27.3 L 28.5 L Plt Count 350 PT INR APTT (4) Anxiety Is this a current diagnosis for this admission?: Yes Plan: Generic Name Dose Route Start Last Admin Trade Name Freq PRN Reason Stop Dose Admin Duloxetine HCl 60 mg 01/08/17 10:00 01/10/17 10:40 Cymbalta 30 Mg Capsule.Dr PO 02/07/17 09:59 60 mg DAILY JONES (5) Cardiomyopathy Qualifiers: Cardiomyopathy type: unspecified Qualified Code(s): I42.9 - Cardiomyopathy , unspecified Is this a current diagnosis for this admission?: Yes
== END 2017-01-15 19:21 | DRG 189 ==
LOC: ER 16:35 → EH 18:58 → INTOOBSV 18:58 → 3S 23:02 → OBSVTOIN 01-08 14:45
PROVIDERS: ADMIT Internal Medicine; ATTEND Internal Medicine
PROC: 5A09557 Assistance with Respiratory Ventilation, Greater than 96 Consecutive Hours, Continuous Positive Airway Pressure (ICD-10-PCS; principal; 2017-01-08)
DX: J96.22 Acute and chronic respiratory failure with hypercapnia (principal); I50.41 Acute combined systolic (congestive) and diastolic (congestive) heart failure; I42.9 Cardiomyopathy, unspecified; J44.1 Chronic obstructive pulmonary disease with (acute) exacerbation; Z68.41 Body mass index [BMI] 40.0-44.9, adult; D51.9 Vitamin B12 deficiency anemia, unspecified; G43.509 Persistent migraine aura without cerebral infarction, not intractable, without status migrainosus; E11.9 Type 2 diabetes mellitus without complications; M19.90 Unspecified osteoarthritis, unspecified site; M79.7 Fibromyalgia; F41.9 Anxiety disorder, unspecified; E66.9 Obesity, unspecified; F32.9 Major depressive disorder, single episode, unspecified; I25.10 Atherosclerotic heart disease of native coronary artery without angina pectoris; Z79.4 Long term (current) use of insulin; Z79.82 Long term (current) use of aspirin; Z79.84 Long term (current) use of oral hypoglycemic drugs; Z79.899 Other long term (current) drug therapy; G89.29 Other chronic pain; Z86.14 Personal history of Methicillin resistant Staphylococcus aureus infection; Z95.5 Presence of coronary angioplasty implant and graft; Z90.49 Acquired absence of other specified parts of digestive tract; Z88.5 Allergy status to narcotic agent
CPT/HCPCS: 36415; 71010; 71020; 80048; 80053; 80061; 80076; 81001; 82150; 82550; 82553; 82607; 82728; 82746; 82803; 82962; 83036; 83540; 83550; 83690; 83735; 84100; 84439; 84443; 84466; 84484; 85025; 85027; 85045; 85610; 85730; 87070; 87205; 93005; 93010; 94640; 94660; 99285; G0378; J1650; J1815; J2405; J2930; J3420; J3490; J7620; Q0138

== ENCOUNTER 2017-02-08 18:54 | Inpatient (IN) | payer MEDICAID ==
[2017-02-08] MEDS ORDERED: ALBUTEROL SULFATE 0.083% NEB 2.5 MG/3 ML AMPUL NEB ONE ×2 (18:59→19:01)
[2017-02-08 19:33] LABS: VENOUS BLOOD BASE EXCESS -0.4 mmol/L; VENOUS BLOOD HCO3 30.1 mmol/L (20-32)
[2017-02-08 19:38] LABS: VENOUS BLOOD PH 7.19 (7.30-7.42)
[2017-02-08 19:52] LABS: INTERNATIONAL RATION (INR) 0.85; PARTIAL THROMBOPLASTIN TIME 27.6 SEC (23.5-35.8); PROTHROMBIN TIME 12.3 SEC (11.4-15.4)
[2017-02-08 20:04] LABS: TROPONIN I 0.054 ng/mL
--- NOTE | 2017-02-08 20:07 | RADIOLOGY REPORT (SQ) ---
EXAM DESCRIPTION: CHEST SINGLE VIEW COMPLETED DATE/TIME: 02/08/2017 7:47 pm REASON FOR STUDY: hypoxia COMPARISON: 01/09/2017 NUMBER OF VIEWS: One view. TECHNIQUE: Single frontal radiographic image of the chest acquired. LIMITATIONS: None. FINDINGS: LUNGS AND PLEURA: Segmental airspace disease in the right lower lobe. No effusions. MEDIASTINUM AND HEART: Stable heart size and mediastinal structures. BONY STRUCTURES: No acute findings. HARDWARE: None. OTHER: No other significant finding. IMPRESSION: Right lower lobe pneumonia. TECHNICAL DOCUMENTATION: JOB ID: [id number]
--- NOTE | 2017-02-08 20:08 | ER Document Report ---
ED Respiratory Problem - General Chief Complaint: Respiratory Distress Stated Complaint: RESPIRATORY DISTRESS Time Seen by Provider: 02/08/17 19:00 Notes: The patient is a 66-year-old female, past medical history COPD, hypertension, presents by EMS in respiratory distress. She has had increased shortness of breath over the past day. EMS placed her on CPAP with mild improvement of her symptoms. She also received 2 g of magnesium, 125 mg Solu-Medrol, 2 albuterol' s and 0.3 mg epinephrine IM by EMS prior to arrival. Patient says she is feeling better, but she is still very short of breath. Patient only able to nod yes or no and unable to speak on arrival to the ER. She was recently discharged from the hospital earlier this month after acute respiratory failure. Patient denies chest pain, fevers, nausea, vomiting, headache, back pain, increased leg swelling or hemoptysis. TRAVEL OUTSIDE OF THE [place] IN LAST 30 DAYS: No - Related Data Allergies/Adverse Reactions: codeine [Codeine] Adverse Reaction (Unknown, Verified 08/23/16 08:03) Past Medical History - General Information source: Patient, Emergency Med Personnel - Social History Smoking Status: Unknown if Ever Smoked Chew tobacco use (# tins/day): No Frequency of alcohol use: None Drug Abuse: None Family History: CAD, Hypertension, Other - Alzheimer's, renal failure Patient has suicidal ideation: No Patient has homicidal ideation: No - Past Medical History Cardiac Medical History: Reports: Hx Congestive Heart Failure, Hx Coronary Artery Disease, Hx Hypercholesterolemia, Hx Hypertension, Hx Peripheral Vascular Disease Denies: Hx Heart Murmur Pulmonary Medical History: Reports: Hx Asthma, Hx Bronchitis, Hx COPD, Hx Respiratory Failure, Hx Sleep Apnea Denies: Hx Tuberculosis Neurological Medical History: Reports: Hx Migraine. Denies: Hx Seizures Endocrine Medical History: Reports: Hx Diabetes Mellitus Type 1, Hx Diabetes Mellitus Type 2 Renal/ Medical History: Reports: Hx Ovarian Cysts. Denies: Hx Peritoneal Dialysis Malignancy Medical History: GI Medical History: Reports: Hx Gastritis, Hx Ulcer. Denies: Hx Pancreatitis Musculoskeltal Medical History: Reports Hx Arthritis, Reports Hx Fibromyalgia, Reports Hx Musculoskeletal Deformity, Reports Hx Musculoskeletal Trauma Psychiatric Medical History: Reports: Hx Anxiety, Hx Depression Denies: Hx Attention Deficit Hyperactivity Disorder Traumatic Medical History: Reports: Hx Fractures - pinkie finger Infectious Medical History: Reports: Hx C-Diff, Hx MRSA Past Surgical History: Reports: Hx Appendectomy, Hx Cardiac Catheterization, Hx Cholecystectomy, Hx Coronary Stent, Hx Hysterectomy, Hx Orthopedic Surgery - right shoulder, Hx Tubal Ligation, Hx Vascular Surgery - Immunizations Immunizations up to date: Yes Hx Diphtheria, Pertussis, Tetanus Vaccination: Yes Hx Pneumococcal Vaccination: 02/17/10 Review of Systems - Review of Systems Notes: REVIEW OF SYSTEMS: CONSTITUTIONAL: -fevers, -chills EENT: -eye pain, -difficulty swallowing, -nasal congestion CARDIOVASCULAR:-chest pain, -syncope. RESPIRATORY: -cough, +SOB GASTROINTESTINAL: -abdominal pain, - nausea, -vomiting, -diarrhea GENITOURINARY: -dysuria, -hematuria MUSCULOSKELETAL: -back pain, -neck pain SKIN: -rash or skin lesions. HEMATOLOGIC: -easy bruising or bleeding. LYMPHATIC: -swollen, enlarged glands. NEUROLOGICAL: -altered mental status or loss of consciousness, -headache, - neurologic symptoms PSYCHIATRIC: -anxiety, -depression. ALL OTHER SYSTEMS REVIEWED AND NEGATIVE. Physical Exam - Vital signs Vitals: Resp Pulse Ox 26 H 97 02/08/17 19:01 02/08/17 19:01 - Notes Notes: PHYSICAL EXAMINATION: GENERAL: Moderate respiratory distress. HEAD: Atraumatic, normocephalic. EYES: Pupils equal round and reactive to light, extraocular movements intact, sclera anicteric, conjunctiva are normal. ENT: nares patent, oropharynx clear without exudates. Moist mucous membranes. NECK: Normal range of motion, supple without lymphadenopathy LUNGS: Moderate respiratory distress. Tachypnea, diffuse wheezing. HEART: Tachycardia, regular rhythm ABDOMEN: Soft, nontender, normoactive bowel sounds. No guarding, no rebound. No masses appreciated. EXTREMITIES: Normal range of motion, no pitting or edema. No cyanosis. NEUROLOGICAL: Normal sensory and motor exams. PSYCH: Anxious mood. SKIN: Warm, Dry, normal turgor, no rashes or lesions noted. Course - Re-evaluation Re-evalutation: Patient was seen immediately on arrival. She was transitioned from EMS CPAP to BiPAP with improvement of her respiratory status. She is in acute respiratory acidosis with a right lower lobe pneumonia. Broad-spectrum antibiotics started due to patient's recent hospitalization. She already received steroids, duo nebs , magnesium and epinephrine by EMS prior to arrival. Continuous albuterol was given to patient through her BiPAP mask. Patient is having no chest pain and her EKG shows her known left bundle branch block. Pt's mildly elevated troponin is most likely from demand ischemia due to her respiratory status and hypoxia. Patient's primary care physician is Dr. Pollard. She requires inpatient admission for further evaluation and treatment. 02/08/17 21:[address] Pollard and will admit patient as inpatient to IMCU. Pt is requesting comfortably on BiPap. - Vital Signs Vital signs: Temp Pulse Resp BP Pulse Ox 26 H 97 02/08/17 19:01 02/08/17 19:01 - Laboratory Result Diagrams: 02/08/17 19:03 02/08/17 20:17 Laboratory results interpreted by me: 02/08/17 02/08/17 02/08/17 19:03 19:03 19:03 VBG pH 7.19 L* VBG pCO2 80.0 H* Est GFR (Non-Af Amer) Glucose POC Glucose Lactic Acid 3.0 H NT-Pro-B Natriuret Pep 1240 H 02/08/17 02/08/17 19:08 20:17 VBG pH VBG pCO2 Est GFR (Non-Af Amer) 58 L Glucose 262 H POC Glucose 270 H Lactic Acid NT-Pro-B Natriuret Pep - Diagnostic Test Radiology reviewed: Image reviewed, Reports reviewed Radiology results interpreted by me: CXR: RLL pneumonia - EKG Interpretation by Me Rate: Tachycardia [place]/QRS: LBBB Additional EKG results interpreted by me: No [place] criteria for acute STEMI. Critical Care Note - Critical Care Note Total time excluding time spent on procedures (mins): 45 Discharge - Discharge Clinical Impression: Acute hypercapnic respiratory failure, COPD exacerbation, Hypoxia Right lower lobe pneumonia Qualifiers: Pneumonia type: due to unspecified organism Qualified Code(s): J18.1 - Lobar pneumonia, unspecified organism Condition: Serious Disposition: ADMITTED INPATIENT Admitting Provider: Renetta Unit Admitted: [facility] Referrals: TANISHA POLLARD MD [Primary Care Provider] - Follow up as needed
[2017-02-08] MEDS ORDERED: LINEZOLID 300 ML IV ONE ×2 (20:13→20:58)
[2017-02-08] MEDS ORDERED: PIPERACILLIN/TAZOBACTAM 3.375 GM VIAL IV ONE (20:13)
[2017-02-08] MEDS ORDERED: NORMAL SALINE 1000 ML 1,000 ML IV ONE (20:15)
[2017-02-08 20:50] LABS: HEMATOCRIT 40.9 % (36.0-47.0); HEMOGLOBIN 12.7 g/dL (12.0-15.5); MEAN CORPUSCULAR HEMOGLOBIN 27.9 pg (27.0-33.4); MEAN CORPUSCULAR HGB CONC 31.2 g/dL (32.0-36.0); PLATELET COUNT 380 10^3/uL (150-450); RED BLOOD COUNT 4.57 10^6/uL (3.72-5.28)
[2017-02-08 21:00] LABS: ALANINE AMINOTRANSFERASE 25 U/L (9-52); ALBUMIN 4.1 g/dL (3.5-5.0); ALKALINE PHOSPHATASE 99 U/L (38-126); ANION GAP 13 (5-19); ASPARTATE AMINO TRANSFERASE 20 U/L (14-36); BILIRUBIN,DIRECT 0.3 mg/dL (0.0-0.4); BILIRUBIN,TOTAL 0.3 mg/dL (0.2-1.3); BLOOD UREA NITROGEN 20 mg/dL (7-20); CALCIUM 9.3 mg/dL (8.4-10.2); CARBON DIOXIDE 30 mmol/L (22-30); CHLORIDE 100 mmol/L (98-107); CREATINE KINASE 64 U/L (30-135); GLUCOSE 262 mg/dL (75-110); LIPASE 68.5 U/L (23-300); POTASSIUM 4.6 mmol/L (3.6-5.0); SODIUM 143.1 mmol/L (137-145); TOTAL PROTEIN 7.3 g/dL (6.3-8.2)
[2017-02-08 22:09] LABS: VENOUS BLOOD BASE EXCESS -3.2 mmol/L; VENOUS BLOOD HCO3 24.8 mmol/L (20-32); VENOUS BLOOD PCO2 58.3 mmHg (35-63); VENOUS BLOOD PH 7.25 (7.30-7.42)
[2017-02-08 22:10] LABS: ABSOLUTE LYMPHOCYTES# (MANUAL) 1.5 10^3/uL (0.5-4.7); ABSOLUTE MONOCYTES # (MANUAL) 0.4 10^3/uL (0.1-1.4); ABSOLUTE NEUTROPHILS# (MANUAL) 19.1 10^3/uL (1.7-8.2); BASOPHILS % (MANUAL) 0 % (0-2); EOSINOPHILS % (MANUAL) 0 % (0-6); LYMPHOCYTES % (MANUAL) 7 % (13-45); MONOCYTES % (MANUAL) 2 % (3-13); SEGMENTED NEUTROPHILS % (MAN) 91 % (42-78); TOTAL CELLS COUNTED 100
[2017-02-08 22:11] LABS: ANISOCYTOSIS 2+; PLATELET COMMENT ADEQUATE
[2017-02-08 22:14] LABS: MEAN CORPUSCULAR VOLUME 90 fl (80-97)
[2017-02-08] MEDS ORDERED: METFORMIN HCL 500 MG TABLET PO ONE (23:00)
[2017-02-08] MEDS ORDERED: GLUCAGON,HUMAN RECOMB 1 MG INJ IM PRN (23:37)
[2017-02-08] MEDS ORDERED: DEXTROSE 40% GEL 15 GM TUBE PO PRN ×2 (23:37)
[2017-02-08] MEDS ORDERED: DEXTROSE 50%-WATER 25 GM/50 ML DISP.SYRIN IV PRN ×2 (23:37)
[2017-02-08] MEDS ORDERED: GABAPENTIN 300 MG CAPSULE PO ONE (23:45)
[2017-02-08] MEDS ORDERED: MELATONIN PO SCH (23:45)
[2017-02-08] MEDS ORDERED: ASPIRIN 81 MG TABLET, CHEWABLE PO ONE (23:45)
[2017-02-08] MEDS ORDERED: INSULIN DETEMIR 100 UNIT/ML 3 ML PEN SUBCUT ONE (23:45)
[2017-02-08] MEDS ORDERED: DULOXETINE HCL 30 MG CAPSULE.DR PO ONE (23:45)
[2017-02-08] MEDS ORDERED: ATORVASTATIN CALCIUM 40 MG TABLET PO ONE (23:45)
[2017-02-08] MEDS ORDERED: CEFEPIME 2 GM/D5W RTU 2 GM/50 ML RTUPB IV ONE (23:45)
[2017-02-08] MEDS ORDERED: CYANOCOBALAMIN (VITAMIN B-12) INJ 1000 MCG/1 ML VIAL SUBCUT SCH (23:45)
[2017-02-08] MEDS ORDERED: MAGNESIUM OXIDE 400 MG TABLET PO ONE (23:45)
[2017-02-08] MEDS ORDERED: TIOTROPIUM BROMIDE DPI 5 CAP/KIT (18 MCG/CAP) IH ONE (23:45)
[2017-02-08] MEDS ORDERED: PYRIDOXINE HCL PO SCH (23:45)
[2017-02-09] MEDS: IPRATROPIUM/ALBUTEROL 0.5-2.5 MG/3 ML AMPUL NEB SCH ×7 (00:43→23:26)
[2017-02-09] MEDS: NORMAL SALINE 1000 ML 1,000 ML IV PRN ×2 (01:21→11:09)
[2017-02-09 02:52] LABS: AMORPHOUS SEDIMENT,URINE 1+ /HPF; APPEARANCE,URINE SLIGHTLY-CLOUDY; BILIRUBIN,URINE NEGATIVE (NEGATIVE); COLOR,URINE YELLOW; GLUCOSE, URINE 150 mg/dL (NEGATIVE); KETONES,URINE NEGATIVE (NEGATIVE); LEUKOCYTE ESTERASE,URINE NEGATIVE (NEGATIVE); NITRITE,URINE POSITIVE (NEGATIVE); PROTEIN,URINE NEGATIVE (NEGATIVE); URINE SPECIFIC GRAVITY 1.014; UROBILINOGEN,URINE NEGATIVE mg/dL (<2.0)
[2017-02-09] MEDS: TRAMADOL HCL 50 MG TABLET PO PRN ×4 (03:04→23:53)
[2017-02-09] MEDS: GABAPENTIN 300 MG CAPSULE PO SCH ×3 (06:57→21:32)
[2017-02-09 07:00] LABS: HEMATOCRIT 37.2 % (36.0-47.0); HEMOGLOBIN 11.8 g/dL (12.0-15.5); MEAN CORPUSCULAR HEMOGLOBIN 28.3 pg (27.0-33.4); MEAN CORPUSCULAR HGB CONC 31.8 g/dL (32.0-36.0); MEAN CORPUSCULAR VOLUME 89 fl (80-97); RED BLOOD COUNT 4.19 10^6/uL (3.72-5.28); RED CELL DISTRIBUTION WIDTH 20.9 % (11.5-14.0); WHITE BLOOD COUNT 9.3 10^3/uL (4.0-10.5)
[2017-02-09 07:22] LABS: ALANINE AMINOTRANSFERASE 16 U/L (9-52); ALBUMIN 3.8 g/dL (3.5-5.0); ALKALINE PHOSPHATASE 78 U/L (38-126); ANION GAP 9 (5-19); ASPARTATE AMINO TRANSFERASE 26 U/L (14-36); BILIRUBIN,DIRECT 0.2 mg/dL (0.0-0.4); BILIRUBIN,TOTAL 0.2 mg/dL (0.2-1.3); BLOOD UREA NITROGEN 20 mg/dL (7-20); CALCIUM 8.6 mg/dL (8.4-10.2); CARBON DIOXIDE 28 mmol/L (22-30); CHLORIDE 102 mmol/L (98-107); GLUCOSE 284 mg/dL (75-110); POTASSIUM 4.9 mmol/L (3.6-5.0); SODIUM 139.3 mmol/L (137-145); TOTAL PROTEIN 6.8 g/dL (6.3-8.2)
[2017-02-09] MEDS ORDERED: ONDANSETRON HCL INJ/PF 4 MG/2 ML SDV ONE (07:48)
[2017-02-09 08:17] LABS: PLATELET COUNT 275 10^3/uL (150-450)
[2017-02-09 08:22] LABS: ABSOLUTE LYMPHOCYTES# (MANUAL) 0.1 10^3/uL (0.5-4.7); ABSOLUTE MONOCYTES # (MANUAL) 0.2 10^3/uL (0.1-1.4); BASOPHILS % (MANUAL) 0 % (0-2); EOSINOPHILS % (MANUAL) 0 % (0-6); LYMPHOCYTES % (MANUAL) 1 % (13-45); MONOCYTES % (MANUAL) 2 % (3-13); SEGMENTED NEUTROPHILS % (MAN) 97 % (42-78); TOTAL CELLS COUNTED 100
[2017-02-09 08:24] LABS: ANISOCYTOSIS 2+; PLATELET CLUMPS PRESENT; PLATELET COMMENT ADEQUATE; POIKILOCYTOSIS SLIGHT; POLYCHROMASIA SLIGHT
--- NOTE | 2017-02-09 08:42 | EKG REPORT ---
SEVERITY:- ABNORMAL ECG - SINUS TACHYCARDIA LEFT BUNDLE BRANCH BLOCK : Confirmed by: Kg Small MD 09-Feb-2017 08:41:42
[2017-02-09] MEDS: LEVOFLOXACIN 750 MG/D5W RTU 750 MG/150 ML RTUPB IV SCH (11:10)
[2017-02-09] MEDS: LINEZOLID 300 ML IV SCH ×2 (11:10→22:38)
[2017-02-09] MEDS: MAGNESIUM OXIDE 400 MG TABLET PO SCH (11:15)
[2017-02-09] MEDS: DULOXETINE HCL 30 MG CAPSULE.DR PO SCH (11:16)
[2017-02-09] MEDS: ASPIRIN 81 MG TABLET, CHEWABLE PO SCH (11:16)
[2017-02-09] MEDS: FLUTICASONE/SALMETEROL DISKUS 250-50 MCG/DOSE IH SCH ×2 (11:17→21:32)
[2017-02-09] MEDS: TIOTROPIUM BROMIDE DPI 5 CAP/KIT (18 MCG/CAP) IH SCH (11:17)
[2017-02-09] MEDS: CEFEPIME 2 GM/D5W RTU 2 GM/50 ML RTUPB IV SCH ×2 (11:20→21:32)
[2017-02-09] MEDS: ENOXAPARIN SODIUM INJ 40 MG/0.4 ML DISP.SYRIN SUBCUT SCH (11:20)
[2017-02-09] MEDS: INSULIN DETEMIR 100 UNIT/ML 3 ML PEN SUBCUT SCH ×2 (11:22→17:26)
--- NOTE | 2017-02-09 13:22 | PDOC H&P ---
History of Present Illness Admission Date/PCP: 02/08/17 22:01 TANISHA POLLARD MD History of Present Illness: TORREY MARKS is a 66 year old female, she has multiple comorbid conditions, she was transferred from the group home at [facility] to the emergency room for evaluation of shortness of breath. She was just recently discharged from this hospital on 01/15/2017 when she was admitted for the management of acute hypercapnic respiratory failure due to exacerbation of COPD. The venous pH.was done in the emergency room, pH 7.19, PCO2 80 consistent with acute hypercapnic respiratory failure. In the emergency room she was treated with a noninvasive positive pressure ventilation CPAP. The chest x-ray showed right lower lobe pneumonia Past Medical History Cardiac Medical History: Reports: Congestive Heart Failure, Coronary Artery Disease, Hyperlipidema, Hypertension, Peripheral Vascular Disease Pulmonary Medical History: Reports: Asthma, Bronchitis, Chronic Obstructive Pulmonary Disease (COPD), Respiratory Failure, Sleep Apnea Neurological Medical History: Reports: Migraine Endocrine Medical History: Reports: Diabetes Mellitus Type 2 Renal/ Medical History: Malignancy Medical History: GI Medical History: Musculoskeltal Medical History: Reports: Arthritis, Fibromyalgia Psychiatric Medical History: Reports: Depression Infectious Medical History: Reports: Clostridium Difficile, Methicillin- Resistant Staph Aureus Past Surgical History Past Surgical History: Reports: Amputation, Appendectomy, Cardiac Catheterization, Cholecystectomy, Coronary Stent, Hysterectomy, Orthopedic Surgery - right shoulder, Tubal Ligation, Vascular Surgery Social History Smoking Status: Former Smoker Frequency of Alcohol Use: None Hx Recreational Drug Use: No Drugs: None Hx Prescription Drug Abuse: No Family History Family History: CAD, Hypertension, Other - Alzheimer's, renal failure Parental Family History Reviewed: Yes Children Family History Reviewed: Yes Sibling(s) Family History Reviewed.: Yes Medication/Allergy Home Medications: Albuterol Sulfate [Proair HFA] 2 puff IH Q4 PRN 01/07/17 Aspirin [Aspirin 81 mg Chewable Tablet] 81 mg PO DAILY 01/07/17 Duloxetine HCl [Cymbalta] 60 mg PO DAILY 01/07/17 Insulin Detemir [Levemir Flextouch] 50 unit SQ BID 01/07/17 Magnesium Oxide 400 mg PO DAILY 01/07/17 Metformin HCl 500 mg PO WSUPPER 01/07/17 Simethicone [Gas Relief 80] 80 mg PO MEALSHS PRN 01/07/17 Spironolactone [Aldactone 25 mg Tablet] 12.5 mg PO DAILY 01/07/17 Cyanocobalamin (Vitamin B-12) [Vitamin B-12 Inj 1000 Mcg/1 ml Vial] 1,000 mcg SUBCUT Q7D #1000 vial 01/15/17 Tramadol HCl [Ultram] 50 mg PO Q6HP PRN #120 tablet 01/15/17 Tiotropium [place] [Spiriva] 2 puff IH DAILY 02/08/17 Allergies/Adverse Reactions: codeine [Codeine] Adverse Reaction (Unknown, Verified 08/23/16 08:03) Review of Systems Constitutional: ABSENT: chills, fever(s), headache(s), weight gain, weight loss Eyes: ABSENT: visual disturbances Ears: ABSENT: hearing changes Cardiovascular: ABSENT: chest pain, dyspnea on exertion, edema, orthropnea, palpitations Respiratory: PRESENT: cough, dyspnea Gastrointestinal: ABSENT: as per HPI, abdominal pain, bloating, coffee ground emesis, constipation, diarrhea, dysphagia, heartburn, hematemesis, hematochezia , melena, nausea, vomiting, other Genitourinary: ABSENT: dysuria, hematuria Musculoskeletal: ABSENT: joint swelling Integumentary: ABSENT: rash, wounds Neurological: ABSENT: abnormal gait, abnormal speech, confusion, dizziness, focal weakness, syncope Psychiatric: ABSENT: anxiety, depression, homidical ideation, suicidal ideation Endocrine: ABSENT: cold intolerance, heat intolerance, menstrual abnormalities, polydipsia, polyuria Hematologic/Lymphatic: ABSENT: easy bleeding, easy bruising, lymphadenopathy Physical Exam Vital Signs: Temp Pulse Resp BP Pulse Ox 98.5 F 100 19 114/57 L 100 02/09/17 11:36 02/09/17 12:37 02/09/17 12:37 02/09/17 11:36 02/09/17 11:36 Intake & Output 02/08/17 02/09/17 02/10/17 06:59 06:59 06:59 Intake Total 990 Output Total 500 600 Balance 490 -600 Weight 120.1 kg General appearance: PRESENT: severe distress Head exam: PRESENT: atraumatic, normocephalic Eye exam: PRESENT: conjunctiva pink, EOMI, PERRLA Ear exam: PRESENT: normal external ear exam Mouth exam: PRESENT: moist, tongue midline Neck exam: PRESENT: full ROM Respiratory exam: PRESENT: rhonchi, wheezes Cardiovascular exam: PRESENT: RRR, +S1, +S2 Pulses: PRESENT: normal dorsalis pedis pul, +2 pedal pulses bilateral Vascular exam: PRESENT: normal capillary refill GI/Abdominal exam: PRESENT: normal bowel sounds, soft Rectal exam: PRESENT: deferred Neurological exam: PRESENT: alert, awake, oriented to person, oriented to place , oriented to time, oriented to situation, CN II-XII grossly intact Psychiatric exam: PRESENT: appropriate affect, normal mood Skin exam: PRESENT: dry, intact, warm Results Laboratory Results: 02/09/17 06:05 02/09/17 06:05 02/09/17 02/09/17 02/09/17 02:14 06:05 06:05 WBC 9.3 RBC 4.19 Hgb 11.8 L Hct 37.2 MCV 89 MCH 28.3 MCHC 31.8 L RDW 20.9 H Plt Count 275 Seg Neutrophils % Not Reportable Lymphocytes % Not Reportable Monocytes % Not Reportable Eosinophils % Not Reportable Basophils % Not Reportable Absolute Neutrophils Not Reportable Absolute Lymphocytes Not Reportable Absolute Monocytes Not Reportable Absolute Eosinophils Not Reportable Absolute Basophils Not Reportable Sodium 139.3 Potassium 4.9 Chloride 102 Carbon Dioxide 28 Anion Gap 9 BUN 20 Creatinine 0.73 Est GFR ( Amer) > 60 Est GFR (Non-Af Amer) > 60 Glucose 284 H Calcium 8.6 Total Bilirubin 0.2 AST 26 ALT 16 Alkaline Phosphatase 78 Total Protein 6.8 Albumin 3.8 Urine Color YELLOW Urine Appearance SLIGHTLY-CLOUDY Urine pH 5.0 Ur Specific [place] 1.014 Urine Protein NEGATIVE Urine Glucose (UA) 150 H Urine Ketones NEGATIVE Urine Blood MODERATE H Urine Nitrite POSITIVE H Ur Leukocyte Esterase NEGATIVE Urine WBC (Auto) 5 Urine RBC (Auto) 4 02/09/17 02/09/17 00:37 00:37 Creatine Kinase 109 Troponin I 0.748 Impressions: Chest X-Ray 02/08/17 19:01 IMPRESSION: Right lower lobe pneumonia. Assessment & Plan - Diagnosis (1) Right lower lobe pneumonia Qualifiers: Pneumonia type: due to unspecified organism Qualified Code(s): J18.1 - Lobar pneumonia, unspecified organism Is this a current diagnosis for this admission?: Yes Plan: Patient to be treated for healthcare associated pneumonia pathogens, she will be covered with antibiotic that will cover MRSA, gram-negative organisms, gram positive pathogens (2) Acute hypercapnic respiratory failure Is this a current diagnosis for this admission?: Yes Plan: Patient to be treated with positive pressure ventilation, noninvasive device, BiPAP machine (3) Chronic obstructive pulmonary disease Qualifiers: COPD type: unspecified COPD Qualified Code(s): J44.9 - Chronic obstructive pulmonary disease, unspecified Is this a current diagnosis for this admission?: Yes
[2017-02-09] MEDS: METFORMIN HCL 500 MG TABLET PO SCH (17:23)
[2017-02-09] MEDS: INSULIN LISPRO 100 UNIT/ML 3 ML VIAL SUBCUT PRN (17:23)
[2017-02-09] MEDS: ATORVASTATIN CALCIUM 40 MG TABLET PO SCH (21:32)
[2017-02-10] MEDS: NORMAL SALINE 1000 ML 1,000 ML IV PRN ×3 (00:46→22:33)
[2017-02-10] MEDS: IPRATROPIUM/ALBUTEROL 0.5-2.5 MG/3 ML AMPUL NEB SCH ×6 (04:08→23:19)
[2017-02-10 05:15] LABS: ABSOLUTE EOSINOPHILS # (AUTO) 0.1 10^3/uL (0.0-0.6); ABSOLUTE LYMPHOCYTES (AUTO) 1.5 10^3/uL (0.5-4.7); ABSOLUTE NEUT (AUTO) 11.8 10^3/uL (1.7-8.2); BASOPHILS % (AUTO) 0.3 % (0-2); EOSINOPHILS % (AUTO) 0.4 % (0-6); HEMATOCRIT 35.7 % (36.0-47.0); HEMOGLOBIN 11.3 g/dL (12.0-15.5); LYMPHOCYTES % (AUTO) 10.2 % (13-45); MEAN CORPUSCULAR HEMOGLOBIN 28.3 pg (27.0-33.4); MEAN CORPUSCULAR HGB CONC 31.6 g/dL (32.0-36.0); MEAN CORPUSCULAR VOLUME 90 fl (80-97); MONOCYTES % (AUTO) 7.1 % (3-13); PLATELET COUNT 289 10^3/uL (150-450); RED BLOOD COUNT 3.99 10^6/uL (3.72-5.28); RED CELL DISTRIBUTION WIDTH 20.7 % (11.5-14.0); TOTAL CELLS COUNTED % (AUTO) 100 %; WHITE BLOOD COUNT 14.4 10^3/uL (4.0-10.5)
[2017-02-10 05:40] LABS: ALANINE AMINOTRANSFERASE 15 U/L (9-52); ALBUMIN 3.7 g/dL (3.5-5.0); ALKALINE PHOSPHATASE 74 U/L (38-126); ANION GAP 13 (5-19); ASPARTATE AMINO TRANSFERASE 18 U/L (14-36); BILIRUBIN,DIRECT 0.2 mg/dL (0.0-0.4); BILIRUBIN,TOTAL 0.2 mg/dL (0.2-1.3); BLOOD UREA NITROGEN 21 mg/dL (7-20); CALCIUM 8.9 mg/dL (8.4-10.2); CARBON DIOXIDE 28 mmol/L (22-30); CHLORIDE 103 mmol/L (98-107); GLUCOSE 160 mg/dL (75-110); POTASSIUM 4.4 mmol/L (3.6-5.0); SODIUM 143.5 mmol/L (137-145); TOTAL PROTEIN 6.6 g/dL (6.3-8.2)
[2017-02-10] MEDS: TRAMADOL HCL 50 MG TABLET PO PRN ×3 (06:11→21:14)
[2017-02-10] MEDS: GABAPENTIN 300 MG CAPSULE PO SCH ×3 (06:11→21:14)
[2017-02-10] MEDS: ENOXAPARIN SODIUM INJ 40 MG/0.4 ML DISP.SYRIN SUBCUT SCH (09:54)
[2017-02-10] MEDS: INSULIN DETEMIR 100 UNIT/ML 3 ML PEN SUBCUT SCH ×2 (09:54→17:42)
[2017-02-10] MEDS: FLUTICASONE/SALMETEROL DISKUS 250-50 MCG/DOSE IH SCH ×2 (09:55→21:22)
[2017-02-10] MEDS: ASPIRIN 81 MG TABLET, CHEWABLE PO SCH (09:55)
[2017-02-10] MEDS: DULOXETINE HCL 30 MG CAPSULE.DR PO SCH (09:55)
[2017-02-10] MEDS: MAGNESIUM OXIDE 400 MG TABLET PO SCH (09:55)
[2017-02-10] MEDS: TIOTROPIUM BROMIDE DPI 5 CAP/KIT (18 MCG/CAP) IH SCH (09:56)
[2017-02-10] MEDS: LEVOFLOXACIN 750 MG/D5W RTU 750 MG/150 ML RTUPB IV SCH (09:56)
[2017-02-10] MEDS: CEFEPIME 2 GM/D5W RTU 2 GM/50 ML RTUPB IV SCH ×2 (11:41→21:13)
[2017-02-10] MEDS: INSULIN LISPRO 100 UNIT/ML 3 ML VIAL SUBCUT PRN (12:29)
[2017-02-10] MEDS: LINEZOLID 300 ML IV SCH ×2 (12:29→21:14)
--- NOTE | 2017-02-10 12:41 | PDOC PROGRESS REPORT ---
Subjective Progress Note for:: 02/10/17 Subjective:: She was seen by the bedside, she complained of insomnia Reason For Visit: PNEUMONIA,ACUTE HYPERCAPNIC RESPIRATORY Physical Exam Vital Signs: Temp Pulse Resp BP Pulse Ox 98.6 F 98 22 H 117/68 96 02/10/17 07:11 02/10/17 11:54 02/10/17 11:54 02/10/17 07:11 02/10/17 11:54 Intake & Output 02/09/17 02/10/17 02/11/17 06:59 06:59 06:59 Intake Total 990 5581 Output Total 500 1750 Balance 490 3831 Weight 120.1 kg 121 kg General appearance: PRESENT: mild distress Head exam: PRESENT: atraumatic, normocephalic Eye exam: PRESENT: conjunctiva pink, EOMI, PERRLA Mouth exam: PRESENT: moist, tongue midline Neck exam: PRESENT: full ROM Cardiovascular exam: PRESENT: RRR, +S1, +S2 Vascular exam: PRESENT: normal capillary refill GI/Abdominal exam: PRESENT: soft Rectal exam: PRESENT: deferred Neurological exam: PRESENT: alert, awake, oriented to person, oriented to place , oriented to time, oriented to situation, CN II-XII grossly intact Skin exam: PRESENT: dry, intact, warm. ABSENT: cyanosis, rash Results Laboratory Results: 02/10/17 04:40 02/10/17 04:40 02/10/17 02/10/17 04:40 04:40 WBC 14.4 H RBC 3.99 Hgb 11.3 L Hct 35.7 L MCV 90 MCH 28.3 MCHC 31.6 L RDW 20.7 H Plt Count 289 Seg Neutrophils % 82.0 H Lymphocytes % 10.2 L Monocytes % 7.1 Eosinophils % 0.4 Basophils % 0.3 Absolute Neutrophils 11.8 H Absolute Lymphocytes 1.5 Absolute Monocytes 1.0 Absolute Eosinophils 0.1 Absolute Basophils 0.0 Sodium 143.5 Potassium 4.4 Chloride 103 Carbon Dioxide 28 Anion Gap 13 BUN 21 H Creatinine 0.89 Est GFR ( Amer) > 60 Est GFR (Non-Af Amer) > 60 Glucose 160 H Calcium 8.9 Total Bilirubin 0.2 AST 18 ALT 15 Alkaline Phosphatase 74 Total Protein 6.6 Albumin 3.7 02/09/17 02/09/17 00:37 00:37 Creatine Kinase 109 Troponin I 0.748 Impressions: Chest X-Ray 02/08/17 19:01 IMPRESSION: Right lower lobe pneumonia. Assessment & Plan - Diagnosis (1) Right lower lobe pneumonia Qualifiers: Pneumonia type: due to unspecified organism Qualified Code(s): J18.1 - Lobar pneumonia, unspecified organism Is this a current diagnosis for this admission?: Yes (2) Acute hypercapnic respiratory failure Is this a current diagnosis for this admission?: Yes (3) Chronic obstructive pulmonary disease Qualifiers: COPD type: unspecified COPD Qualified Code(s): J44.9 - Chronic obstructive pulmonary disease, unspecified Is this a current diagnosis for this admission?: Yes - Plan Summary Plan Summary: She will continue present treatment
[2017-02-10] MEDS: METFORMIN HCL 500 MG TABLET PO SCH (16:20)
[2017-02-10] MEDS: ATORVASTATIN CALCIUM 40 MG TABLET PO SCH (21:15)
[2017-02-11] MEDS: IPRATROPIUM/ALBUTEROL 0.5-2.5 MG/3 ML AMPUL NEB SCH ×5 (03:55→20:30)
[2017-02-11 04:48] LABS: ABSOLUTE BASOPHILS # (AUTO) 0.1 10^3/uL (0.0-0.2); ABSOLUTE EOSINOPHILS # (AUTO) 0.3 10^3/uL (0.0-0.6); ABSOLUTE LYMPHOCYTES (AUTO) 1.4 10^3/uL (0.5-4.7); ABSOLUTE MONOCYTES (AUTO) 0.9 10^3/uL (0.1-1.4); ABSOLUTE NEUT (AUTO) 7.4 10^3/uL (1.7-8.2); BASOPHILS % (AUTO) 0.5 % (0-2); HEMATOCRIT 34.5 % (36.0-47.0); HEMOGLOBIN 10.9 g/dL (12.0-15.5); LYMPHOCYTES % (AUTO) 13.6 % (13-45); MEAN CORPUSCULAR HEMOGLOBIN 28.2 pg (27.0-33.4); MEAN CORPUSCULAR HGB CONC 31.6 g/dL (32.0-36.0); MEAN CORPUSCULAR VOLUME 89 fl (80-97); MONOCYTES % (AUTO) 9.1 % (3-13); PLATELET COUNT 269 10^3/uL (150-450); RED BLOOD COUNT 3.88 10^6/uL (3.72-5.28); RED CELL DISTRIBUTION WIDTH 20.6 % (11.5-14.0); SEGMENTED NEUTROPHILS % (AUTO) 73.8 % (42-78); TOTAL CELLS COUNTED % (AUTO) 100 %
[2017-02-11 05:18] LABS: ALANINE AMINOTRANSFERASE 26 U/L (9-52); ALBUMIN 3.7 g/dL (3.5-5.0); ALKALINE PHOSPHATASE 67 U/L (38-126); ANION GAP 11 (5-19); ASPARTATE AMINO TRANSFERASE 12 U/L (14-36); BILIRUBIN,DIRECT 0.3 mg/dL (0.0-0.4); BILIRUBIN,TOTAL 0.4 mg/dL (0.2-1.3); BLOOD UREA NITROGEN 14 mg/dL (7-20); CALCIUM 9.1 mg/dL (8.4-10.2); CARBON DIOXIDE 30 mmol/L (22-30); CHLORIDE 103 mmol/L (98-107); GLUCOSE 86 mg/dL (75-110); POTASSIUM 4.2 mmol/L (3.6-5.0); SODIUM 143.9 mmol/L (137-145); TOTAL PROTEIN 5.9 g/dL (6.3-8.2)
[2017-02-11] MEDS: GABAPENTIN 300 MG CAPSULE PO SCH ×3 (05:46→21:20)
[2017-02-11] MEDS: TRAMADOL HCL 50 MG TABLET PO PRN ×3 (08:26→22:47)
[2017-02-11] MEDS: NORMAL SALINE 1000 ML 1,000 ML IV PRN (08:27)
[2017-02-11] MEDS: ENOXAPARIN SODIUM INJ 40 MG/0.4 ML DISP.SYRIN SUBCUT SCH (11:30)
[2017-02-11] MEDS: INSULIN DETEMIR 100 UNIT/ML 3 ML PEN SUBCUT SCH ×2 (11:30→18:25)
[2017-02-11] MEDS: TIOTROPIUM BROMIDE DPI 5 CAP/KIT (18 MCG/CAP) IH SCH (11:31)
[2017-02-11] MEDS: ASPIRIN 81 MG TABLET, CHEWABLE PO SCH (11:31)
[2017-02-11] MEDS: MAGNESIUM OXIDE 400 MG TABLET PO SCH (11:31)
[2017-02-11] MEDS: FLUTICASONE/SALMETEROL DISKUS 250-50 MCG/DOSE IH SCH ×2 (11:31→21:20)
[2017-02-11] MEDS: DULOXETINE HCL 30 MG CAPSULE.DR PO SCH (11:32)
[2017-02-11] MEDS: LEVOFLOXACIN 750 MG/D5W RTU 750 MG/150 ML RTUPB IV SCH (11:32)
[2017-02-11] MEDS: CEFEPIME 2 GM/D5W RTU 2 GM/50 ML RTUPB IV SCH ×2 (13:47→21:20)
--- NOTE | 2017-02-11 15:10 | PDOC PROGRESS REPORT ---
Subjective Progress Note for:: 02/11/17 Subjective:: Patient is seen by the bedside, still continues to require positive pressure ventilation with BiPAP Reason For Visit: PNEUMONIA,ACUTE HYPERCAPNIC RESPIRATORY Physical Exam Vital Signs: Temp Pulse Resp BP Pulse Ox 97.8 F 101 H 18 116/70 100 02/11/17 12:14 02/11/17 12:14 02/11/17 12:14 02/11/17 12:14 02/11/17 12:14 Intake & Output 02/10/17 02/11/17 02/12/17 06:59 06:59 06:59 Intake Total 5581 4295 222 Output Total 1750 2900 Balance 3831 1395 222 Weight 121 kg 120.4 kg General appearance: PRESENT: no acute distress Head exam: PRESENT: atraumatic, normocephalic Eye exam: PRESENT: conjunctiva pink, EOMI, PERRLA Ear exam: PRESENT: normal external ear exam Mouth exam: PRESENT: moist, tongue midline Neck exam: PRESENT: full ROM Respiratory exam: PRESENT: rhonchi Cardiovascular exam: PRESENT: RRR, +S2 Pulses: PRESENT: normal dorsalis pedis pul, +2 pedal pulses bilateral Vascular exam: PRESENT: normal capillary refill GI/Abdominal exam: PRESENT: normal bowel sounds, soft Rectal exam: PRESENT: deferred Neurological exam: PRESENT: alert, awake, oriented to person, oriented to place , oriented to time, oriented to situation, CN II-XII grossly intact Psychiatric exam: PRESENT: appropriate affect, normal mood Skin exam: PRESENT: dry, intact, warm Results Laboratory Results: 02/11/17 04:13 02/11/17 04:13 02/11/17 02/11/17 04:13 04:13 WBC 10.0 RBC 3.88 Hgb 10.9 L Hct 34.5 L MCV 89 MCH 28.2 MCHC 31.6 L RDW 20.6 H Plt Count 269 Seg Neutrophils % 73.8 Lymphocytes % 13.6 Monocytes % 9.1 Eosinophils % 3.0 Basophils % 0.5 Absolute Neutrophils 7.4 Absolute Lymphocytes 1.4 Absolute Monocytes 0.9 Absolute Eosinophils 0.3 Absolute Basophils 0.1 Sodium 143.9 Potassium 4.2 Chloride 103 Carbon Dioxide 30 Anion Gap 11 BUN 14 Creatinine 0.71 Est GFR ( Amer) > 60 Est GFR (Non-Af Amer) > 60 Glucose 86 Calcium 9.1 Total Bilirubin 0.4 AST 12 L ALT 26 Alkaline Phosphatase 67 Total Protein 5.9 L Albumin 3.7 02/09/17 02/09/17 00:37 00:37 Creatine Kinase 109 Troponin I 0.748 Impressions: Chest X-Ray 02/08/17 19:01 IMPRESSION: Right lower lobe pneumonia. Assessment & Plan - Diagnosis (1) Right lower lobe pneumonia Qualifiers: Pneumonia type: due to unspecified organism Qualified Code(s): J18.1 - Lobar pneumonia, unspecified organism Is this a current diagnosis for this admission?: Yes (2) Acute hypercapnic respiratory failure Is this a current diagnosis for this admission?: Yes (3) Chronic obstructive pulmonary disease Qualifiers: COPD type: unspecified COPD Qualified Code(s): J44.9 - Chronic obstructive pulmonary disease, unspecified Is this a current diagnosis for this admission?: Yes
[2017-02-11] MEDS: LINEZOLID 300 ML IV SCH ×2 (15:41→21:22)
[2017-02-11] MEDS: METFORMIN HCL 500 MG TABLET PO SCH (16:29)
[2017-02-11] MEDS: ATORVASTATIN CALCIUM 40 MG TABLET PO SCH (21:19)
[2017-02-12] MEDS: IPRATROPIUM/ALBUTEROL 0.5-2.5 MG/3 ML AMPUL NEB SCH ×6 (00:16→20:33)
[2017-02-12] MEDS: NORMAL SALINE 1000 ML 1,000 ML IV PRN ×2 (03:56→17:19)
[2017-02-12] MEDS: TRAMADOL HCL 50 MG TABLET PO PRN ×3 (04:58→18:41)
[2017-02-12] MEDS: GABAPENTIN 300 MG CAPSULE PO SCH ×3 (05:55→21:52)
[2017-02-12] MEDS: INSULIN DETEMIR 100 UNIT/ML 3 ML PEN SUBCUT SCH ×2 (09:44→17:19)
[2017-02-12] MEDS: ENOXAPARIN SODIUM INJ 40 MG/0.4 ML DISP.SYRIN SUBCUT SCH (09:44)
[2017-02-12] MEDS: DULOXETINE HCL 30 MG CAPSULE.DR PO SCH (09:45)
[2017-02-12] MEDS: ASPIRIN 81 MG TABLET, CHEWABLE PO SCH (09:45)
[2017-02-12] MEDS: FLUTICASONE/SALMETEROL DISKUS 250-50 MCG/DOSE IH SCH ×2 (09:45→21:53)
[2017-02-12] MEDS: MAGNESIUM OXIDE 400 MG TABLET PO SCH (09:45)
[2017-02-12] MEDS: TIOTROPIUM BROMIDE DPI 5 CAP/KIT (18 MCG/CAP) IH SCH (09:46)
[2017-02-12] MEDS: LEVOFLOXACIN 750 MG/D5W RTU 750 MG/150 ML RTUPB IV SCH (09:46)
[2017-02-12] MEDS: CEFEPIME 2 GM/D5W RTU 2 GM/50 ML RTUPB IV SCH (12:04)
[2017-02-12] MEDS: LINEZOLID 300 ML IV SCH ×2 (13:04→21:54)
--- NOTE | 2017-02-12 14:12 | PDOC PROGRESS REPORT ---
Subjective Progress Note for:: 02/12/17 Subjective:: She complained of shortness of breath Reason For Visit: PNEUMONIA,ACUTE HYPERCAPNIC RESPIRATORY Physical Exam Vital Signs: Temp Pulse Resp BP Pulse Ox 98.0 F 85 22 H 132/66 H 98 02/12/17 09:15 02/12/17 11:57 02/12/17 11:57 02/12/17 09:15 02/12/17 11:57 Intake & Output 02/11/17 02/12/17 02/13/17 06:59 06:59 06:59 Intake Total 4295 3126 Output Total 2900 1200 Balance 1395 1926 Weight 120.4 kg 120.9 kg Head exam: PRESENT: atraumatic, normocephalic Ear exam: PRESENT: normal external ear exam Mouth exam: PRESENT: moist, tongue midline Neck exam: PRESENT: full ROM Respiratory exam: PRESENT: rhonchi Cardiovascular exam: PRESENT: RRR Pulses: PRESENT: normal dorsalis pedis pul, +2 pedal pulses bilateral Vascular exam: PRESENT: normal capillary refill GI/Abdominal exam: PRESENT: soft Rectal exam: PRESENT: deferred Neurological exam: PRESENT: alert Psychiatric exam: PRESENT: appropriate affect, normal mood Skin exam: PRESENT: dry, intact, warm Results Laboratory Results: 02/11/17 04:13 02/11/17 04:13 02/09/17 02:14 Clean Catch Midstream Urine Culture - Final Escherichia Coli Staph Coagulase Negative 02/09/17 02/09/17 00:37 00:37 Creatine Kinase 109 Troponin I 0.748 Impressions: Chest X-Ray 02/08/17 19:01 IMPRESSION: Right lower lobe pneumonia. Assessment & Plan - Diagnosis (1) Right lower lobe pneumonia Qualifiers: Pneumonia type: due to unspecified organism Qualified Code(s): J18.1 - Lobar pneumonia, unspecified organism Is this a current diagnosis for this admission?: Yes (2) Acute hypercapnic respiratory failure Is this a current diagnosis for this admission?: Yes (3) Chronic obstructive pulmonary disease Qualifiers: COPD type: unspecified COPD Qualified Code(s): J44.9 - Chronic obstructive pulmonary disease, unspecified Is this a current diagnosis for this admission?: Yes - Plan Summary Plan Summary: Continue treatment
[2017-02-12] MEDS: METFORMIN HCL 500 MG TABLET PO SCH (17:20)
[2017-02-12] MEDS: ATORVASTATIN CALCIUM 40 MG TABLET PO SCH (21:52)
[2017-02-12] MEDS: ZOLPIDEM TARTRATE 5 MG TABLET PO SCH (21:53)
[2017-02-12] MEDS: CEFEPIME HCL 2 GM in DEXTROSE 5%-WATER 50 ML IV SCH (21:59)
[2017-02-12] MEDS ORDERED: CEFEPIME 2 GM/D5W RTU 2 GM/50 ML RTUPB IV SCH (22:00)
[2017-02-12] MEDS ORDERED: CEFAZOLIN SODIUM 2 GM in DEXTROSE 5%-WATER 100 ML IV SCH (22:00)
[2017-02-13] MEDS: IPRATROPIUM/ALBUTEROL 0.5-2.5 MG/3 ML AMPUL NEB SCH ×6 (00:22→19:54)
[2017-02-13] MEDS: NORMAL SALINE 1000 ML 1,000 ML IV PRN (03:40)
[2017-02-13] MEDS: TRAMADOL HCL 50 MG TABLET PO PRN ×2 (05:52→17:51)
[2017-02-13] MEDS: GABAPENTIN 300 MG CAPSULE PO SCH ×3 (05:52→22:06)
[2017-02-13] MEDS: FLUTICASONE/SALMETEROL DISKUS 250-50 MCG/DOSE IH SCH ×2 (09:14→22:04)
[2017-02-13] MEDS: TIOTROPIUM BROMIDE DPI 5 CAP/KIT (18 MCG/CAP) IH SCH (09:14)
[2017-02-13] MEDS: ASPIRIN 81 MG TABLET, CHEWABLE PO SCH (09:15)
[2017-02-13] MEDS: MAGNESIUM OXIDE 400 MG TABLET PO SCH (09:15)
[2017-02-13] MEDS: CEFEPIME HCL 2 GM in DEXTROSE 5%-WATER 50 ML IV SCH ×2 (09:15→22:06)
[2017-02-13] MEDS: DULOXETINE HCL 30 MG CAPSULE.DR PO SCH (09:15)
[2017-02-13] MEDS: ENOXAPARIN SODIUM INJ 40 MG/0.4 ML DISP.SYRIN SUBCUT SCH (09:16)
[2017-02-13] MEDS: INSULIN DETEMIR 100 UNIT/ML 3 ML PEN SUBCUT SCH ×2 (09:17→17:05)
[2017-02-13] MEDS: LEVOFLOXACIN 750 MG/D5W RTU 750 MG/150 ML RTUPB IV SCH (10:28)
[2017-02-13] MEDS: LINEZOLID 300 ML IV SCH ×2 (11:44→22:05)
--- NOTE | 2017-02-13 17:06 | RADIOLOGY REPORT (SQ) ---
EXAM DESCRIPTION: PICC INSERTION; FLUORO/CV PLACEMENT; U/S GUIDE FOR VASCULAR ACCESS COMPLETED DATE/TIME: 02/13/2017 4:42 pm REASON FOR STUDY: IV access not adequate, Multiple attempts; PICC INSERTION COMPARISON: None. FLUOROSCOPY TIME: 25 seconds. 1 images saved to PACS. TECHNIQUE: Fluoroscopic and ultrasound guided PICC placement. LIMITATIONS: None. PROCEDURE: After written consent and assessment were obtained, the patient was brought into the fluo roscopy room and place supine on the table. Ultrasound was used on the patient's left arm for PICC a ccess. The left arm was prepped and draped in a sterile fashion along with the ultrasound probe. The entry site was anesthetized with 1% lidocaine. A 21 gauge 7 cm needle was advanced through the skin a nd into the basilic vein under live ultrasound guidance. An ultrasound image was saved to PACS confi rming access site. A .018 guide wire was then inserted through the needle and into the venous system . The needle was the removed and an 11 blade scalpel was used to make a 1cm skin incision. A 5 fr pe el-away sheath was advanced over the wire and into the venous system. A measurement was then made usi ng the existing wire and live fluoroscopic guidance. The wire was then removed and the trimmed. The P ICC was advanced through the peel-away sheath and into the venous system. The peel-away sheath was re moved and the catheter was adhered to the patients arm with a stat lock. The catheter was then aspira catalina and flushed and a sterile bandage was placed over the access site. A fluoroscopic spot image was saved to PACS confirming the catheter tip within the superior vena cava. IMPRESSION: SUCCESSFUL PLACEMENT OF A 5 FR DUAL LUMEN 46 CM PICC IN THE LEFT BASILIC VEIN. COMMENT: Patient medication list reviewed: Yes- Quality ID# 130:Eligible professional attests to doc umenting in the medical record they obtained, updated, or reviewed the patient's current medications. . Quality ID 145: Final reports for procedures using fluoroscopy that document radiation exposure adelaida emmie, or exposure time and number of fluorographic images (if radiation exposure indices are not avail able) Quality ID #76: The patient was prepped and draped using maximum sterile barrier technique including cap, mask, sterile gown, sterile gloves, a large sterile sheet, hand hygiene, and 2% Chlorhexidine fo r cutaneous antisepsis. When ultrasound is used, sterile ultrasound techniques are followed requiring sterile gel and sterile probes. TECHNICAL DOCUMENTATION: JOB ID: [id number] [employer]- All Rights Reserved
[2017-02-13] MEDS: METFORMIN HCL 500 MG TABLET PO SCH (17:51)
--- NOTE | 2017-02-13 20:01 | RADIOLOGY REPORT (SQ) ---
EXAM DESCRIPTION: CHEST SINGLE VIEW COMPLETED DATE/TIME: 02/13/2017 7:13 pm REASON FOR STUDY: SOB COMPARISON: 02/08/2017 EXAM PARAMETERS: NUMBER OF VIEWS: One view. TECHNIQUE: Single frontal radiographic view of the chest acquired. RADIATION DOSE: NA LIMITATIONS: None. FINDINGS: LUNGS AND PLEURA: Improved aeration in the right lung base. No acute opacities, masses or pneumothorax. No pleural effusion. MEDIASTINUM AND HILAR STRUCTURES: Stable. HEART AND VASCULAR STRUCTURES: Stable cardiac enlargement. BONES: No acute findings. HARDWARE: Left PICC line catheter tip overlies the SVC at the level of the jessica. OTHER: No other significant finding. IMPRESSION: Left PICC line catheter tip overlies the SVC at the level of the jessica. Improved aerat ion in the right lung base. TECHNICAL DOCUMENTATION: JOB ID: [id number] [place]-72 2010 [employer]- All Rights Reserved
--- NOTE | 2017-02-13 20:21 | PDOC PROGRESS REPORT ---
Subjective Progress Note for:: 02/13/17 Subjective:: She complains of headache, there was increased shortness of breath, wheezing today, a PICC line was inserted today post PICC line chest x-ray showed improved aeration the right lung Reason For Visit: PNEUMONIA,ACUTE HYPERCAPNIC RESPIRATORY Physical Exam Vital Signs: Temp Pulse Resp BP Pulse Ox 98.5 F 101 H 18 119/73 100 02/13/17 15:01 02/13/17 19:55 02/13/17 19:55 02/13/17 15:01 02/13/17 19:55 Intake & Output 02/12/17 02/13/17 02/14/17 06:59 06:59 06:59 Intake Total 3126 3577 1325 Output Total 1200 2500 2000 Balance 1926 1077 -675 Weight 120.9 kg 121 kg General appearance: PRESENT: mild distress Eye exam: PRESENT: PERRLA Neck exam: PRESENT: full ROM Respiratory exam: PRESENT: wheezes Cardiovascular exam: PRESENT: RRR, +S1, +S2 Vascular exam: PRESENT: normal capillary refill Rectal exam: PRESENT: deferred Neurological exam: PRESENT: alert, awake, oriented to person, oriented to place , oriented to time, oriented to situation, CN II-XII grossly intact Psychiatric exam: PRESENT: appropriate affect, normal mood Skin exam: PRESENT: dry, intact, warm Results Laboratory Results: 02/11/17 04:13 02/11/17 04:13 02/09/17 02/09/17 00:37 00:37 Creatine Kinase 109 Troponin I 0.748 Impressions: Chest X-Ray 02/13/17 00:00 IMPRESSION: Left PICC line catheter tip overlies the SVC at the level of the jessica. Improved aeration in the right lung base. Guidance Fluoroscopy 02/13/17 00:00 IMPRESSION: SUCCESSFUL PLACEMENT OF A 5 FR DUAL LUMEN 46 CM PICC IN THE LEFT BASILIC VEIN. Interventional Vascular Procedure 02/13/17 00:00 IMPRESSION: SUCCESSFUL PLACEMENT OF A 5 FR DUAL LUMEN 46 CM PICC IN THE LEFT BASILIC VEIN. PICC Line Insertion 02/13/17 00:00 IMPRESSION: SUCCESSFUL PLACEMENT OF A 5 FR DUAL LUMEN 46 CM PICC IN THE LEFT BASILIC VEIN. Assessment & Plan - Diagnosis (1) Right lower lobe pneumonia Qualifiers: Pneumonia type: due to unspecified organism Qualified Code(s): J18.1 - Lobar pneumonia, unspecified organism Is this a current diagnosis for this admission?: Yes (2) Acute hypercapnic respiratory failure Is this a current diagnosis for this admission?: Yes (3) Chronic obstructive pulmonary disease Qualifiers: COPD type: unspecified COPD Qualified Code(s): J44.9 - Chronic obstructive pulmonary disease, unspecified Is this a current diagnosis for this admission?: Yes - Plan Summary Plan Summary: Continue IV antibiotic, discontinue IV fluid
[2017-02-13] MEDS: NORMAL SALINE 10 ML SDV (SCHEDULED) IV SCH (22:04)
[2017-02-13] MEDS: ZOLPIDEM TARTRATE 5 MG TABLET PO SCH (22:06)
[2017-02-13] MEDS: ATORVASTATIN CALCIUM 40 MG TABLET PO SCH (22:06)
[2017-02-14] MEDS: IPRATROPIUM/ALBUTEROL 0.5-2.5 MG/3 ML AMPUL NEB SCH ×6 (00:21→19:30)
[2017-02-14] MEDS: TRAMADOL HCL 50 MG TABLET PO PRN ×2 (03:01→13:17)
[2017-02-14] MEDS: NORMAL SALINE 10 ML SDV (AFTER EACH USE) IV PRN (04:24)
[2017-02-14 04:59] LABS: HEMATOCRIT 31.8 % (36.0-47.0); HEMOGLOBIN 10.1 g/dL (12.0-15.5); MEAN CORPUSCULAR HEMOGLOBIN 28.4 pg (27.0-33.4); MEAN CORPUSCULAR HGB CONC 31.8 g/dL (32.0-36.0); MEAN CORPUSCULAR VOLUME 89 fl (80-97); PLATELET COUNT 246 10^3/uL (150-450); RED BLOOD COUNT 3.56 10^6/uL (3.72-5.28); RED CELL DISTRIBUTION WIDTH 20.6 % (11.5-14.0); WHITE BLOOD COUNT 7.7 10^3/uL (4.0-10.5)
[2017-02-14 05:17] LABS: ANION GAP 9 (5-19); BLOOD UREA NITROGEN 8 mg/dL (7-20); CARBON DIOXIDE 34 mmol/L (22-30); CHLORIDE 101 mmol/L (98-107); GLUCOSE 135 mg/dL (75-110); POTASSIUM 4.1 mmol/L (3.6-5.0); SODIUM 143.7 mmol/L (137-145)
[2017-02-14] MEDS: GABAPENTIN 300 MG CAPSULE PO SCH ×3 (05:31→22:59)
[2017-02-14] MEDS: INSULIN DETEMIR 100 UNIT/ML 3 ML PEN SUBCUT SCH ×2 (09:04→17:31)
[2017-02-14] MEDS: FLUTICASONE/SALMETEROL DISKUS 250-50 MCG/DOSE IH SCH ×2 (09:04→23:01)
[2017-02-14] MEDS: ASPIRIN 81 MG TABLET, CHEWABLE PO SCH (09:04)
[2017-02-14] MEDS: MAGNESIUM OXIDE 400 MG TABLET PO SCH (09:04)
[2017-02-14] MEDS: NORMAL SALINE 10 ML SDV (SCHEDULED) IV SCH ×2 (09:04→23:03)
[2017-02-14] MEDS: ENOXAPARIN SODIUM INJ 40 MG/0.4 ML DISP.SYRIN SUBCUT SCH (09:04)
[2017-02-14] MEDS: DULOXETINE HCL 30 MG CAPSULE.DR PO SCH (09:04)
[2017-02-14] MEDS: CEFEPIME HCL 2 GM in DEXTROSE 5%-WATER 50 ML IV SCH (09:04)
[2017-02-14] MEDS: LEVOFLOXACIN 750 MG/D5W RTU 750 MG/150 ML RTUPB IV SCH (10:01)
[2017-02-14] MEDS: LINEZOLID 300 ML IV SCH (11:32)
[2017-02-14] MEDS: TIOTROPIUM BROMIDE DPI 5 CAP/KIT (18 MCG/CAP) IH SCH (14:44)
[2017-02-14] MEDS: METFORMIN HCL 500 MG TABLET PO SCH (17:31)
[2017-02-14] MEDS: BUTALB/ACETAMINOPHEN/CAFFEINE 1 TAB EACH PO PRN (20:28)
--- NOTE | 2017-02-14 20:37 | PDOC PROGRESS REPORT ---
Subjective Progress Note for:: 02/14/17 Subjective:: She continues to have shortness of breath, she was admitted for the management of pneumonia with a background of chronic obstructive lung disease, the last chest x-ray that was done from yesterday suggests improvement the pneumonia she also complained of a headache Reason For Visit: PNEUMONIA,ACUTE HYPERCAPNIC RESPIRATORY Physical Exam Vital Signs: Temp Pulse Resp BP Pulse Ox 98.1 F 86 20 124/74 96 02/14/17 15:17 02/14/17 19:30 02/14/17 19:30 02/14/17 15:17 02/14/17 19:30 Intake & Output 02/13/17 02/14/17 02/15/17 06:59 06:59 06:59 Intake Total 3577 1912 1182 Output Total 2500 3400 1000 Balance 1077 -1488 182 Weight 121 kg 121.9 kg General appearance: PRESENT: mild distress Mouth exam: PRESENT: moist, tongue midline Neck exam: PRESENT: full ROM Respiratory exam: PRESENT: decreased breath sounds Cardiovascular exam: PRESENT: +S1, +S2 GI/Abdominal exam: PRESENT: normal bowel sounds, soft Rectal exam: PRESENT: deferred Neurological exam: PRESENT: alert Skin exam: PRESENT: dry, intact, warm Results Laboratory Results: 02/14/17 04:15 02/14/17 04:15 02/14/17 02/14/17 04:15 04:15 WBC 7.7 RBC 3.56 L Hgb 10.1 L Hct 31.8 L MCV 89 MCH 28.4 MCHC 31.8 L RDW 20.6 H Plt Count 246 Sodium 143.7 Potassium 4.1 Chloride 101 Carbon Dioxide 34 H Anion Gap 9 BUN 8 Creatinine 0.66 Est GFR ( Amer) > 60 Est GFR (Non-Af Amer) > 60 Glucose 135 H Calcium 9.0 02/09/17 02/09/17 00:37 00:37 Creatine Kinase 109 Troponin I 0.748 Impressions: Chest X-Ray 02/13/17 00:00 IMPRESSION: Left PICC line catheter tip overlies the SVC at the level of the jessica. Improved aeration in the right lung base. Guidance Fluoroscopy 02/13/17 00:00 IMPRESSION: SUCCESSFUL PLACEMENT OF A 5 FR DUAL LUMEN 46 CM PICC IN THE LEFT BASILIC VEIN. Interventional Vascular Procedure 02/13/17 00:00 IMPRESSION: SUCCESSFUL PLACEMENT OF A 5 FR DUAL LUMEN 46 CM PICC IN THE LEFT BASILIC VEIN. PICC Line Insertion 02/13/17 00:00 IMPRESSION: SUCCESSFUL PLACEMENT OF A 5 FR DUAL LUMEN 46 CM PICC IN THE LEFT BASILIC VEIN. Assessment & Plan - Diagnosis (1) Right lower lobe pneumonia Qualifiers: Pneumonia type: due to unspecified organism Qualified Code(s): J18.1 - Lobar pneumonia, unspecified organism Is this a current diagnosis for this admission?: Yes (2) Acute hypercapnic respiratory failure Is this a current diagnosis for this admission?: Yes (3) Chronic obstructive pulmonary disease Qualifiers: COPD type: unspecified COPD Qualified Code(s): J44.9 - Chronic obstructive pulmonary disease, unspecified Is this a current diagnosis for this admission?: Yes - Plan Summary Plan Summary: She will continue present treatment
[2017-02-14] MEDS: ATORVASTATIN CALCIUM 40 MG TABLET PO SCH (22:58)
[2017-02-14] MEDS: ZOLPIDEM TARTRATE 5 MG TABLET PO SCH (22:59)
[2017-02-15] MEDS: IPRATROPIUM/ALBUTEROL 0.5-2.5 MG/3 ML AMPUL NEB SCH ×6 (00:15→20:04)
[2017-02-15] MEDS: TRAMADOL HCL 50 MG TABLET PO PRN ×3 (01:48→18:08)
[2017-02-15] MEDS: GABAPENTIN 300 MG CAPSULE PO SCH ×3 (06:30→21:32)
[2017-02-15] MEDS: TIOTROPIUM BROMIDE DPI 5 CAP/KIT (18 MCG/CAP) IH SCH (09:14)
[2017-02-15] MEDS: ASPIRIN 81 MG TABLET, CHEWABLE PO SCH (09:15)
[2017-02-15] MEDS: DULOXETINE HCL 30 MG CAPSULE.DR PO SCH (09:15)
[2017-02-15] MEDS: MAGNESIUM OXIDE 400 MG TABLET PO SCH (09:15)
[2017-02-15] MEDS: FLUTICASONE/SALMETEROL DISKUS 250-50 MCG/DOSE IH SCH ×2 (09:16→21:32)
[2017-02-15] MEDS: LEVOFLOXACIN 750 MG/D5W RTU 750 MG/150 ML RTUPB IV SCH (09:17)
[2017-02-15] MEDS: ENOXAPARIN SODIUM INJ 40 MG/0.4 ML DISP.SYRIN SUBCUT SCH (09:18)
[2017-02-15] MEDS: NORMAL SALINE 10 ML SDV (SCHEDULED) IV SCH ×2 (09:18→21:35)
[2017-02-15] MEDS: INSULIN DETEMIR 100 UNIT/ML 3 ML PEN SUBCUT SCH ×2 (09:27→18:10)
--- NOTE | 2017-02-15 17:28 | PDOC PROGRESS REPORT ---
Subjective Progress Note for:: 02/15/17 Subjective:: Patient continue to express difficulty with breathing upon minimal exertion. Remain on supplemental oxygen via nasal cannula and bronchodilators therapy on schedule. Reason For Visit: PNEUMONIA,ACUTE HYPERCAPNIC RESPIRATORY Physical Exam Vital Signs: Temp Pulse Resp BP Pulse Ox 99.1 F 94 20 132/77 H 97 02/15/17 16:25 02/15/17 16:25 02/15/17 16:25 02/15/17 16:25 02/15/17 16:25 Intake & Output 02/14/17 02/15/17 02/16/17 06:59 06:59 06:59 Intake Total 1912 1962 Output Total 3400 1300 Balance -1488 662 Weight 121.9 kg 120.9 kg General appearance: PRESENT: mild distress, morbidly obese Head exam: PRESENT: atraumatic, normocephalic Mouth exam: PRESENT: moist Respiratory exam: PRESENT: decreased breath sounds, rhonchi - expiratory phase Cardiovascular exam: PRESENT: RRR. ABSENT: diastolic murmur, rubs, systolic murmur Vascular exam: PRESENT: normal capillary refill. ABSENT: pallor GI/Abdominal exam: PRESENT: normal bowel sounds, soft. ABSENT: distended, guarding, mass, organolmegaly, rebound, tenderness Extremities exam: ABSENT: pedal edema Musculoskeletal exam: PRESENT: normal inspection Neurological exam: PRESENT: alert, awake, oriented to person, oriented to place , oriented to time, oriented to situation, CN II-XII grossly intact. ABSENT: motor sensory deficit Psychiatric exam: PRESENT: appropriate affect, normal mood. ABSENT: homicidal ideation, suicidal ideation Skin exam: PRESENT: dry, warm, other - Left arm PICC line site is satisfactory. Results Laboratory Results: 02/14/17 04:15 02/14/17 04:15 02/09/17 02/09/17 00:37 00:37 Creatine Kinase 109 Troponin I 0.748 Impressions: Chest X-Ray 02/13/17 00:00 IMPRESSION: Left PICC line catheter tip overlies the SVC at the level of the jessica. Improved aeration in the right lung base. Guidance Fluoroscopy 02/13/17 00:00 IMPRESSION: SUCCESSFUL PLACEMENT OF A 5 FR DUAL LUMEN 46 CM PICC IN THE LEFT BASILIC VEIN. Interventional Vascular Procedure 02/13/17 00:00 IMPRESSION: SUCCESSFUL PLACEMENT OF A 5 FR DUAL LUMEN 46 CM PICC IN THE LEFT BASILIC VEIN. PICC Line Insertion 02/13/17 00:00 IMPRESSION: SUCCESSFUL PLACEMENT OF A 5 FR DUAL LUMEN 46 CM PICC IN THE LEFT BASILIC VEIN. Assessment & Plan - Diagnosis (1) Right lower lobe pneumonia Qualifiers: Pneumonia type: due to unspecified organism Qualified Code(s): J18.1 - Lobar pneumonia, unspecified organism Is this a current diagnosis for this admission?: Yes Plan: Continue IV Levofloxacin coverage. See covering attending physician orders. (2) Acute and chronic respiratory failure with hypercapnia Is this a current diagnosis for this admission?: Yes Plan: See covering attending physician orders. Encourage compliance with respiratory therapy. (3) Chronic obstructive pulmonary disease Qualifiers: COPD type: unspecified COPD Qualified Code(s): J44.9 - Chronic obstructive pulmonary disease, unspecified Is this a current diagnosis for this admission?: Yes Plan: See covering attending physician orders. (4) Diabetes mellitus type 2 in obese Is this a current diagnosis for this admission?: Yes Plan: See covering attending physician orders. - Time Time Spent with patient: 25-34 minutes Medications reviewed and adjusted accordingly: Yes Anticipated discharge: Home with Homehealth Within: Other - Inpatient Certification Based on my medical assessment, after consideration of the patient's comorbidities, presenting symptoms, or acuity I expect that the services needed warrant INPATIENT care.: Yes I certify that my determination is in accordance with my understanding of Medicare's requirements for reasonable and necessary INPATIENT services [42 CFR 412.3e].: Yes Medical Necessity: Need Close Monitoring Due to Risk of Patient Decompensation, Need For IV Fluids, Need For Continuous Telemetry Monitoring, Need for Nebulizer Therapy and Monitoring of Response, Need for IV Antibiotics, Risk of Complication if Not Cared For in Hospital Post Hospital Care: D/C Switch Inspector Documentation - Plan Summary Plan Summary: See covering attending physician orders.
[2017-02-15] MEDS: METFORMIN HCL 500 MG TABLET PO SCH (18:08)
[2017-02-15] MEDS: ZOLPIDEM TARTRATE 5 MG TABLET PO SCH (21:33)
[2017-02-15] MEDS: ATORVASTATIN CALCIUM 40 MG TABLET PO SCH (21:33)
[2017-02-16] MEDS: IPRATROPIUM/ALBUTEROL 0.5-2.5 MG/3 ML AMPUL NEB SCH ×6 (00:24→19:44)
[2017-02-16] MEDS: BUTALB/ACETAMINOPHEN/CAFFEINE 1 TAB EACH PO PRN (03:35)
[2017-02-16] MEDS: GABAPENTIN 300 MG CAPSULE PO SCH ×2 (05:43→15:29)
[2017-02-16] MEDS: LEVOFLOXACIN 750 MG/D5W RTU 750 MG/150 ML RTUPB IV SCH (10:39)
[2017-02-16] MEDS: MAGNESIUM OXIDE 400 MG TABLET PO SCH (10:40)
[2017-02-16] MEDS: DULOXETINE HCL 30 MG CAPSULE.DR PO SCH (10:40)
[2017-02-16] MEDS: ENOXAPARIN SODIUM INJ 40 MG/0.4 ML DISP.SYRIN SUBCUT SCH (10:41)
[2017-02-16] MEDS: ASPIRIN 81 MG TABLET, CHEWABLE PO SCH (10:41)
[2017-02-16] MEDS: TIOTROPIUM BROMIDE DPI 5 CAP/KIT (18 MCG/CAP) IH SCH (10:42)
[2017-02-16] MEDS: INSULIN DETEMIR 100 UNIT/ML 3 ML PEN SUBCUT SCH ×2 (10:43→19:04)
[2017-02-16] MEDS: FLUTICASONE/SALMETEROL DISKUS 250-50 MCG/DOSE IH SCH (10:43)
[2017-02-16] MEDS: NORMAL SALINE 10 ML SDV (SCHEDULED) IV SCH (10:43)
--- NOTE | 2017-02-16 15:25 | PDOC PROGRESS REPORT ---
Subjective Progress Note for:: 02/16/17 Subjective:: Patient continue to express difficulty with breathing on BiPAP machine support. She remain on supplemental oxygen via nasal cannula and bronchodilators therapy on schedule. She reported chest tightness due to difficulty with breathing while of the BiPAP machine. No nausea, vomiting, or abdominal pain. Appetite and P.O intake remain poor. No fever, chills, or coughing. Reason For Visit: PNEUMONIA,ACUTE HYPERCAPNIC RESPIRATORY Physical Exam Vital Signs: Temp Pulse Resp BP Pulse Ox 97.5 F 110 H 24 H 127/69 H 94 02/16/17 11:25 02/16/17 12:05 02/16/17 12:05 02/16/17 11:25 02/16/17 12:05 Intake & Output 02/15/17 02/16/17 02/17/17 06:59 06:59 06:59 Intake Total 1962 2026 477 Output Total 1300 1175 Balance 662 851 477 Weight 120.9 kg 117.4 kg Physical Exam: General appearance: PRESENT: mild distress, morbidly obese. on BiPAP support at 14/6 Head exam: PRESENT: atraumatic, normocephalic Mouth exam: PRESENT: moist Respiratory exam: PRESENT: decreased breath sounds, rhonchi - expiratory phase Cardiovascular exam: PRESENT: RRR. ABSENT: diastolic murmur, rubs, systolic murmur Vascular exam: PRESENT: normal capillary refill. ABSENT: pallor GI/Abdominal exam: PRESENT: normal bowel sounds, soft. ABSENT: distended, guarding, mass, organomegaly, rebound, tenderness Extremities exam: ABSENT: pedal edema Musculoskeletal exam: PRESENT: normal inspection Neurological exam: PRESENT: alert, awake, oriented to person, oriented to place , oriented to time, oriented to situation, CN II-XII grossly intact. ABSENT: motor sensory deficit Psychiatric exam: PRESENT: appropriate affect, normal mood. ABSENT: homicidal ideation, suicidal ideation Skin exam: PRESENT: dry, warm, other - Left arm PICC line site is satisfactory. Results Laboratory Results: 02/14/17 04:15 02/14/17 04:15 02/09/17 02/09/17 00:37 00:37 Creatine Kinase 109 Troponin I 0.748 Impressions: Chest X-Ray 02/13/17 00:00 IMPRESSION: Left PICC line catheter tip overlies the SVC at the level of the jessica. Improved aeration in the right lung base. Guidance Fluoroscopy 02/13/17 00:00 IMPRESSION: SUCCESSFUL PLACEMENT OF A 5 FR DUAL LUMEN 46 CM PICC IN THE LEFT BASILIC VEIN. Interventional Vascular Procedure 02/13/17 00:00 IMPRESSION: SUCCESSFUL PLACEMENT OF A 5 FR DUAL LUMEN 46 CM PICC IN THE LEFT BASILIC VEIN. PICC Line Insertion 02/13/17 00:00 IMPRESSION: SUCCESSFUL PLACEMENT OF A 5 FR DUAL LUMEN 46 CM PICC IN THE LEFT BASILIC VEIN. Assessment & Plan - Diagnosis (1) Right lower lobe pneumonia Qualifiers: Pneumonia type: due to unspecified organism Qualified Code(s): J18.1 - Lobar pneumonia, unspecified organism Is this a current diagnosis for this admission?: Yes (2) Acute and chronic respiratory failure with hypercapnia Is this a current diagnosis for this admission?: Yes (3) Chronic obstructive pulmonary disease Qualifiers: COPD type: unspecified COPD Qualified Code(s): J44.9 - Chronic obstructive pulmonary disease, unspecified Is this a current diagnosis for this admission?: Yes (4) Diabetes mellitus type 2 in obese Is this a current diagnosis for this admission?: Yes - Time Time Spent with patient: 25-34 minutes Medications reviewed and adjusted accordingly: Yes Within: Other - Inpatient Certification Based on my medical assessment, after consideration of the patient's comorbidities, presenting symptoms, or acuity I expect that the services needed warrant INPATIENT care.: Yes I certify that my determination is in accordance with my understanding of Medicare's requirements for reasonable and necessary INPATIENT services [42 CFR 412.3e].: Yes Medical Necessity: Need Close Monitoring Due to Risk of Patient Decompensation, Need For IV Fluids, Need For Continuous Telemetry Monitoring, Need for Nebulizer Therapy and Monitoring of Response, Need for IV Antibiotics, Risk of Complication if Not Cared For in Hospital Post Hospital Care: D/C Demographic Analyst Documentation - Plan Summary Plan Summary: See covering attending physician orders.
[2017-02-16] MEDS: METFORMIN HCL 500 MG TABLET PO SCH (19:04)
[2017-02-17] MEDS: IPRATROPIUM/ALBUTEROL 0.5-2.5 MG/3 ML AMPUL NEB SCH ×6 (00:28→20:13)
[2017-02-17] MEDS: FLUTICASONE/SALMETEROL DISKUS 250-50 MCG/DOSE IH SCH ×3 (01:12→22:13)
[2017-02-17] MEDS: ZOLPIDEM TARTRATE 5 MG TABLET PO SCH ×2 (01:13→22:13)
[2017-02-17] MEDS: ATORVASTATIN CALCIUM 40 MG TABLET PO SCH ×2 (01:13→22:13)
[2017-02-17] MEDS: GABAPENTIN 300 MG CAPSULE PO SCH ×4 (01:13→22:13)
[2017-02-17] MEDS: NORMAL SALINE 10 ML SDV (SCHEDULED) IV SCH ×3 (01:14→22:13)
[2017-02-17] MEDS: TRAMADOL HCL 50 MG TABLET PO PRN ×2 (01:20→18:06)
[2017-02-17] MEDS: BUTALB/ACETAMINOPHEN/CAFFEINE 1 TAB EACH PO PRN ×3 (01:21→22:30)
[2017-02-17] MEDS: INSULIN DETEMIR 100 UNIT/ML 3 ML PEN SUBCUT SCH ×2 (10:08→17:28)
[2017-02-17] MEDS: ENOXAPARIN SODIUM INJ 40 MG/0.4 ML DISP.SYRIN SUBCUT SCH (10:08)
[2017-02-17] MEDS: TIOTROPIUM BROMIDE DPI 5 CAP/KIT (18 MCG/CAP) IH SCH (10:08)
[2017-02-17] MEDS: LEVOFLOXACIN 750 MG/D5W RTU 750 MG/150 ML RTUPB IV SCH (10:08)
[2017-02-17] MEDS: ASPIRIN 81 MG TABLET, CHEWABLE PO SCH (10:08)
[2017-02-17] MEDS: MAGNESIUM OXIDE 400 MG TABLET PO SCH (10:08)
[2017-02-17] MEDS: DULOXETINE HCL 30 MG CAPSULE.DR PO SCH (10:08)
[2017-02-17] MEDS: METFORMIN HCL 500 MG TABLET PO SCH (17:28)
--- NOTE | 2017-02-17 17:54 | PDOC PROGRESS REPORT ---
Subjective Progress Note for:: 02/17/17 Subjective:: Patient reported some improvement in her breathing since adjustment in her BiPAP setting. There is reproducible chest pain over left anterior chest wall. No fever or chills. No coughing. No nausea, vomiting, or abdominal pain. Reason For Visit: PNEUMONIA,ACUTE HYPERCAPNIC RESPIRATORY Physical Exam Vital Signs: Temp Pulse Resp BP Pulse Ox 97.9 F 96 20 108/61 97 02/17/17 14:57 02/17/17 14:57 02/17/17 14:57 02/17/17 14:57 02/17/17 14:57 Intake & Output 02/16/17 02/17/17 02/18/17 06:59 06:59 06:59 Intake Total 6 1275 Output Total 1175 2300 Balance 851 -1025 Weight 117.4 kg 119.4 kg Physical Exam: General appearance: PRESENT: mild distress, morbidly obese. on BiPAP support at 14/6 Head exam: PRESENT: atraumatic, normocephalic Mouth exam: PRESENT: moist Respiratory exam: PRESENT: decreased breath sounds, rhonchi - expiratory phase Cardiovascular exam: PRESENT: RRR. Reproducible anterior left sided chest wall tenderness ABSENT: diastolic murmur, rubs, systolic murmur Vascular exam: PRESENT: normal capillary refill. ABSENT: pallor GI/Abdominal exam: PRESENT: normal bowel sounds, soft. ABSENT: distended, guarding, mass, organomegaly, rebound, tenderness Extremities exam: ABSENT: pedal edema Musculoskeletal exam: PRESENT: normal inspection Neurological exam: PRESENT: alert, awake, oriented to person, oriented to place , oriented to time, oriented to situation, CN II-XII grossly intact. ABSENT: motor sensory deficit Psychiatric exam: PRESENT: appropriate affect, normal mood. ABSENT: homicidal ideation, suicidal ideation Skin exam: PRESENT: dry, warm, other - Left arm PICC line site is satisfactory. Results Laboratory Results: 02/14/17 04:15 02/14/17 04:15 02/09/17 02/09/17 00:37 00:37 Creatine Kinase 109 Troponin I 0.748 Impressions: Chest X-Ray 02/13/17 00:00 IMPRESSION: Left PICC line catheter tip overlies the SVC at the level of the jessica. Improved aeration in the right lung base. Guidance Fluoroscopy 02/13/17 00:00 IMPRESSION: SUCCESSFUL PLACEMENT OF A 5 FR DUAL LUMEN 46 CM PICC IN THE LEFT BASILIC VEIN. Interventional Vascular Procedure 02/13/17 00:00 IMPRESSION: SUCCESSFUL PLACEMENT OF A 5 FR DUAL LUMEN 46 CM PICC IN THE LEFT BASILIC VEIN. PICC Line Insertion 02/13/17 00:00 IMPRESSION: SUCCESSFUL PLACEMENT OF A 5 FR DUAL LUMEN 46 CM PICC IN THE LEFT BASILIC VEIN. Assessment & Plan - Diagnosis (1) Right lower lobe pneumonia Qualifiers: Pneumonia type: due to unspecified organism Qualified Code(s): J18.1 - Lobar pneumonia, unspecified organism Is this a current diagnosis for this admission?: Yes (2) Acute and chronic respiratory failure with hypercapnia Is this a current diagnosis for this admission?: Yes (3) Chronic obstructive pulmonary disease Qualifiers: COPD type: unspecified COPD Qualified Code(s): J44.9 - Chronic obstructive pulmonary disease, unspecified Is this a current diagnosis for this admission?: Yes (4) Diabetes mellitus type 2 in obese Is this a current diagnosis for this admission?: Yes - Time Time Spent with patient: 25-34 minutes Medications reviewed and adjusted accordingly: Yes Anticipated discharge: Home with Homehealth Within: Other - Inpatient Certification Based on my medical assessment, after consideration of the patient's comorbidities, presenting symptoms, or acuity I expect that the services needed warrant INPATIENT care.: Yes I certify that my determination is in accordance with my understanding of Medicare's requirements for reasonable and necessary INPATIENT services [42 CFR 412.3e].: Yes Medical Necessity: Need Close Monitoring Due to Risk of Patient Decompensation, Need For IV Fluids, Need For Continuous Telemetry Monitoring, Need for Nebulizer Therapy and Monitoring of Response, Need for IV Antibiotics, Risk of Complication if Not Cared For in Hospital Post 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 maintain on current antibiotic therapy.
[2017-02-17] MEDS: NORMAL SALINE 10 ML SDV (AFTER EACH USE) IV PRN (18:07)
[2017-02-17] MEDS ORDERED: FLUTICASONE/SALMETEROL DISKUS 250-50 MCG/DOSE IH ONE (22:25)
[2017-02-18] MEDS: IPRATROPIUM/ALBUTEROL 0.5-2.5 MG/3 ML AMPUL NEB SCH ×6 (00:10→20:18)
[2017-02-18 04:08] LABS: ABSOLUTE BASOPHILS # (AUTO) 0.1 10^3/uL (0.0-0.2); ABSOLUTE EOSINOPHILS # (AUTO) 0.7 10^3/uL (0.0-0.6); ABSOLUTE LYMPHOCYTES (AUTO) 1.2 10^3/uL (0.5-4.7); ABSOLUTE NEUT (AUTO) 4.9 10^3/uL (1.7-8.2); BASOPHILS % (AUTO) 0.7 % (0-2); EOSINOPHILS % (AUTO) 8.8 % (0-6); HEMATOCRIT 34.4 % (36.0-47.0); HEMOGLOBIN 10.9 g/dL (12.0-15.5); LYMPHOCYTES % (AUTO) 15.2 % (13-45); MEAN CORPUSCULAR HEMOGLOBIN 28.2 pg (27.0-33.4); MEAN CORPUSCULAR HGB CONC 31.8 g/dL (32.0-36.0); MEAN CORPUSCULAR VOLUME 89 fl (80-97); MONOCYTES % (AUTO) 13.3 % (3-13); PLATELET COUNT 249 10^3/uL (150-450); RED BLOOD COUNT 3.88 10^6/uL (3.72-5.28); TOTAL CELLS COUNTED % (AUTO) 100 %; WHITE BLOOD COUNT 7.8 10^3/uL (4.0-10.5)
[2017-02-18 04:32] LABS: ANION GAP 9 (5-19); BLOOD UREA NITROGEN 13 mg/dL (7-20); CALCIUM 9.4 mg/dL (8.4-10.2); CARBON DIOXIDE 37 mmol/L (22-30); CHLORIDE 100 mmol/L (98-107); GLUCOSE 108 mg/dL (75-110); POTASSIUM 3.9 mmol/L (3.6-5.0); SODIUM 145.7 mmol/L (137-145)
[2017-02-18] MEDS: TRAMADOL HCL 50 MG TABLET PO PRN ×2 (04:46→20:57)
[2017-02-18] MEDS: GABAPENTIN 300 MG CAPSULE PO SCH ×3 (05:05→20:58)
[2017-02-18] MEDS ORDERED: INSULIN LISPRO 100 UNIT/ML 3 ML VIAL ONE (08:30)
[2017-02-18] MEDS: INSULIN LISPRO 100 UNIT/ML 3 ML VIAL SUBCUT PRN (08:34)
[2017-02-18] MEDS: ENOXAPARIN SODIUM INJ 40 MG/0.4 ML DISP.SYRIN SUBCUT SCH (10:09)
[2017-02-18] MEDS: INSULIN DETEMIR 100 UNIT/ML 3 ML PEN SUBCUT SCH ×2 (10:09→18:58)
[2017-02-18] MEDS: DULOXETINE HCL 30 MG CAPSULE.DR PO SCH (10:09)
[2017-02-18] MEDS: ASPIRIN 81 MG TABLET, CHEWABLE PO SCH (10:10)
[2017-02-18] MEDS: MAGNESIUM OXIDE 400 MG TABLET PO SCH (10:10)
[2017-02-18] MEDS: FLUTICASONE/SALMETEROL DISKUS 250-50 MCG/DOSE IH SCH ×2 (10:10→20:58)
[2017-02-18] MEDS: LEVOFLOXACIN 750 MG/D5W RTU 750 MG/150 ML RTUPB IV SCH (10:11)
[2017-02-18] MEDS: TIOTROPIUM BROMIDE DPI 5 CAP/KIT (18 MCG/CAP) IH SCH (10:12)
[2017-02-18] MEDS: NORMAL SALINE 10 ML SDV (SCHEDULED) IV SCH ×2 (10:13→20:58)
--- NOTE | 2017-02-18 13:41 | PDOC PROGRESS REPORT ---
Subjective Progress Note for:: 02/18/17 Subjective:: She denied any significant left sided chest pain so far today. Reported generalized weakness and exertional dyspnea event to use bedside commode. No coughing. No fever or chills. No nausea, vomiting, or abdominal pain. Reason For Visit: PNEUMONIA,ACUTE HYPERCAPNIC RESPIRATORY Physical Exam Vital Signs: Temp Pulse Resp BP Pulse Ox 98.0 F 106 H 18 99/38 L 97 02/18/17 07:05 02/18/17 11:38 02/18/17 11:38 02/18/17 07:05 02/18/17 11:38 Intake & Output 02/17/17 02/18/17 02/19/17 06:59 06:59 06:59 Intake Total 1275 2428 Output Total 2300 2250 Balance -1025 178 Weight 119.4 kg 118.6 kg Physical Exam: General appearance: PRESENT: mild distress, morbidly obese. on BiPAP support at 14/6 Head exam: PRESENT: atraumatic, normocephalic Mouth exam: PRESENT: moist Respiratory exam: PRESENT: decreased breath sounds, rhonchi - minimal in expiratory phase Cardiovascular exam: PRESENT: RRR. Reproducible anterior left sided chest wall tenderness ABSENT: diastolic murmur, rubs, systolic murmur Vascular exam: PRESENT: normal capillary refill. ABSENT: pallor GI/Abdominal exam: PRESENT: normal bowel sounds, soft. ABSENT: distended, guarding, mass, organomegaly, rebound, tenderness Extremities exam: ABSENT: pedal edema Musculoskeletal exam: PRESENT: normal inspection Neurological exam: PRESENT: alert, awake, oriented to person, oriented to place , oriented to time, oriented to situation, CN II-XII grossly intact. ABSENT: motor sensory deficit Psychiatric exam: PRESENT: appropriate affect, normal mood. ABSENT: homicidal ideation, suicidal ideation Skin exam: PRESENT: dry, warm, other - Left arm PICC line site is satisfactory. Results Laboratory Results: 02/18/17 04:00 02/18/17 04:00 02/18/17 02/18/17 04:00 04:00 WBC 7.8 RBC 3.88 Hgb 10.9 L Hct 34.4 L MCV 89 MCH 28.2 MCHC 31.8 L RDW 21.0 H Plt Count 249 Seg Neutrophils % 62.0 Lymphocytes % 15.2 Monocytes % 13.3 H Eosinophils % 8.8 H Basophils % 0.7 Absolute Neutrophils 4.9 Absolute Lymphocytes 1.2 Absolute Monocytes 1.0 Absolute Eosinophils 0.7 H Absolute Basophils 0.1 Sodium 145.7 H Potassium 3.9 Chloride 100 Carbon Dioxide 37 H Anion Gap 9 BUN 13 Creatinine 0.71 Est GFR ( Amer) > 60 Est GFR (Non-Af Amer) > 60 Glucose 108 Calcium 9.4 02/09/17 02/09/17 00:37 00:37 Creatine Kinase 109 Troponin I 0.748 Impressions: Chest X-Ray 02/13/17 00:00 IMPRESSION: Left PICC line catheter tip overlies the SVC at the level of the jessica. Improved aeration in the right lung base. Guidance Fluoroscopy 02/13/17 00:00 IMPRESSION: SUCCESSFUL PLACEMENT OF A 5 FR DUAL LUMEN 46 CM PICC IN THE LEFT BASILIC VEIN. Interventional Vascular Procedure 02/13/17 00:00 IMPRESSION: SUCCESSFUL PLACEMENT OF A 5 FR DUAL LUMEN 46 CM PICC IN THE LEFT BASILIC VEIN. PICC Line Insertion 02/13/17 00:00 IMPRESSION: SUCCESSFUL PLACEMENT OF A 5 FR DUAL LUMEN 46 CM PICC IN THE LEFT BASILIC VEIN. Assessment & Plan - Diagnosis (1) Right lower lobe pneumonia Qualifiers: Pneumonia type: due to unspecified organism Qualified Code(s): J18.1 - Lobar pneumonia, unspecified organism Is this a current diagnosis for this admission?: Yes (2) Acute and chronic respiratory failure with hypercapnia Is this a current diagnosis for this admission?: Yes (3) Chronic obstructive pulmonary disease Qualifiers: COPD type: unspecified COPD Qualified Code(s): J44.9 - Chronic obstructive pulmonary disease, unspecified Is this a current diagnosis for this admission?: Yes (4) Diabetes mellitus type 2 in obese Is this a current diagnosis for this admission?: Yes - Time Time Spent with patient: 25-34 minutes Medications reviewed and adjusted accordingly: Yes Anticipated discharge: Home with Homehealth Within: Other - Inpatient Certification Based on my medical assessment, after consideration of the patient's comorbidities, presenting symptoms, or acuity I expect that the services needed warrant INPATIENT care.: Yes I certify that my determination is in accordance with my understanding of Medicare's requirements for reasonable and necessary INPATIENT services [42 CFR 412.3e].: Yes Medical Necessity: Need Close Monitoring Due to Risk of Patient Decompensation, Need For IV Fluids, Need For Continuous Telemetry Monitoring, Need for Nebulizer Therapy and Monitoring of Response, Need for Pain Control, Need for IV Antibiotics, Risk of Complication if Not Cared For in Hospital 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 Start on Zbec 1 tablet po daily. Start on bedside physical therapy program.
[2017-02-18] MEDS ORDERED: MULTIVIT-STRESS FORMULA/ZINC TABLET PO ONE (14:00)
[2017-02-18] MEDS: NORMAL SALINE 10 ML SDV (AFTER EACH USE) IV PRN (14:05)
[2017-02-18] MEDS: METFORMIN HCL 500 MG TABLET PO SCH (18:57)
[2017-02-18] MEDS: ZOLPIDEM TARTRATE 5 MG TABLET PO SCH (20:58)
[2017-02-18] MEDS: ATORVASTATIN CALCIUM 40 MG TABLET PO SCH (20:58)
[2017-02-19] MEDS: IPRATROPIUM/ALBUTEROL 0.5-2.5 MG/3 ML AMPUL NEB SCH ×6 (00:21→19:47)
[2017-02-19] MEDS: GABAPENTIN 300 MG CAPSULE PO SCH ×3 (05:48→22:07)
[2017-02-19] MEDS: LEVOFLOXACIN 750 MG/D5W RTU 750 MG/150 ML RTUPB IV SCH (10:17)
[2017-02-19] MEDS: INSULIN DETEMIR 100 UNIT/ML 3 ML PEN SUBCUT SCH ×2 (10:17→18:28)
[2017-02-19] MEDS: ENOXAPARIN SODIUM INJ 40 MG/0.4 ML DISP.SYRIN SUBCUT SCH (10:18)
[2017-02-19] MEDS: TIOTROPIUM BROMIDE DPI 5 CAP/KIT (18 MCG/CAP) IH SCH (10:18)
[2017-02-19] MEDS: FLUTICASONE/SALMETEROL DISKUS 250-50 MCG/DOSE IH SCH ×2 (10:18→22:10)
[2017-02-19] MEDS: MAGNESIUM OXIDE 400 MG TABLET PO SCH (10:19)
[2017-02-19] MEDS: DULOXETINE HCL 30 MG CAPSULE.DR PO SCH (10:19)
[2017-02-19] MEDS: ASPIRIN 81 MG TABLET, CHEWABLE PO SCH (10:19)
[2017-02-19] MEDS: NORMAL SALINE 10 ML SDV (SCHEDULED) IV SCH ×2 (10:19→22:07)
[2017-02-19] MEDS: MULTIVIT-STRESS FORMULA/ZINC TABLET PO SCH (10:19)
[2017-02-19] MEDS ORDERED: BISACODYL 5 MG TABEC PO ONE (15:30)
--- NOTE | 2017-02-19 18:07 | PDOC PROGRESS REPORT ---
Subjective Progress Note for:: 02/19/17 Subjective:: Patient is very short of breath on mild exertion, She continues to require positive pressure ventilation with BiPAP Reason For Visit: PNEUMONIA,ACUTE HYPERCAPNIC RESPIRATORY Physical Exam Vital Signs: Temp Pulse Resp BP Pulse Ox 98.2 F 98 16 140/81 H 99 02/19/17 16:18 02/19/17 16:18 02/19/17 16:18 02/19/17 16:18 02/19/17 16:18 Intake & Output 02/18/17 02/19/17 02/20/17 06:59 06:59 06:59 Intake Total 2428 439 550 Output Total 2250 1100 1700 Balance 178 -661 -1150 Weight 118.6 kg 119 kg General appearance: PRESENT: severe distress Head exam: PRESENT: atraumatic, normocephalic Eye exam: PRESENT: conjunctiva pink, EOMI, PERRLA Ear exam: PRESENT: normal external ear exam Mouth exam: PRESENT: moist, tongue midline Neck exam: PRESENT: full ROM Respiratory exam: PRESENT: clear to auscultation rolf Cardiovascular exam: PRESENT: RRR, +S1, +S2 Pulses: PRESENT: normal dorsalis pedis pul, +2 pedal pulses bilateral Vascular exam: PRESENT: normal capillary refill GI/Abdominal exam: PRESENT: normal bowel sounds, soft Rectal exam: PRESENT: deferred Neurological exam: PRESENT: alert, awake, oriented to person, oriented to place , oriented to time, oriented to situation, CN II-XII grossly intact. ABSENT: motor sensory deficit Psychiatric exam: PRESENT: appropriate affect, normal mood Skin exam: PRESENT: dry, intact, warm Results Laboratory Results: 02/18/17 04:00 02/18/17 04:00 02/09/17 02/09/17 00:37 00:37 Creatine Kinase 109 Troponin I 0.748 Impressions: Chest X-Ray 02/13/17 00:00 IMPRESSION: Left PICC line catheter tip overlies the SVC at the level of the jessica. Improved aeration in the right lung base. Guidance Fluoroscopy 02/13/17 00:00 IMPRESSION: SUCCESSFUL PLACEMENT OF A 5 FR DUAL LUMEN 46 CM PICC IN THE LEFT BASILIC VEIN. Interventional Vascular Procedure 02/13/17 00:00 IMPRESSION: SUCCESSFUL PLACEMENT OF A 5 FR DUAL LUMEN 46 CM PICC IN THE LEFT BASILIC VEIN. PICC Line Insertion 02/13/17 00:00 IMPRESSION: SUCCESSFUL PLACEMENT OF A 5 FR DUAL LUMEN 46 CM PICC IN THE LEFT BASILIC VEIN. Assessment & Plan - Diagnosis (1) Right lower lobe pneumonia Qualifiers: Pneumonia type: due to unspecified organism Qualified Code(s): J18.1 - Lobar pneumonia, unspecified organism Is this a current diagnosis for this admission?: Yes (2) Acute hypercapnic respiratory failure Is this a current diagnosis for this admission?: Yes (3) Chronic obstructive pulmonary disease Qualifiers: COPD type: unspecified COPD Qualified Code(s): J44.9 - Chronic obstructive pulmonary disease, unspecified Is this a current diagnosis for this admission?: Yes
[2017-02-19] MEDS: METFORMIN HCL 500 MG TABLET PO SCH (18:28)
[2017-02-19] MEDS: ATORVASTATIN CALCIUM 40 MG TABLET PO SCH (22:07)
[2017-02-19] MEDS: ZOLPIDEM TARTRATE 5 MG TABLET PO SCH (22:07)
[2017-02-19] MEDS: TRAMADOL HCL 50 MG TABLET PO PRN (22:08)
[2017-02-20] MEDS: IPRATROPIUM/ALBUTEROL 0.5-2.5 MG/3 ML AMPUL NEB SCH ×6 (00:11→19:44)
[2017-02-20] MEDS: TRAMADOL HCL 50 MG TABLET PO PRN ×2 (03:45→21:53)
[2017-02-20] MEDS: GABAPENTIN 300 MG CAPSULE PO SCH ×3 (05:18→21:42)
[2017-02-20] MEDS: ASPIRIN 81 MG TABLET, CHEWABLE PO SCH (10:30)
[2017-02-20] MEDS: MULTIVIT-STRESS FORMULA/ZINC TABLET PO SCH (10:30)
[2017-02-20] MEDS: MAGNESIUM OXIDE 400 MG TABLET PO SCH (10:30)
[2017-02-20] MEDS: NORMAL SALINE 10 ML SDV (SCHEDULED) IV SCH ×2 (10:30→21:42)
[2017-02-20] MEDS: DULOXETINE HCL 30 MG CAPSULE.DR PO SCH (10:30)
[2017-02-20] MEDS: FLUTICASONE/SALMETEROL DISKUS 250-50 MCG/DOSE IH SCH ×2 (10:30→21:41)
[2017-02-20] MEDS: LEVOFLOXACIN 750 MG/D5W RTU 750 MG/150 ML RTUPB IV SCH (10:30)
[2017-02-20] MEDS: INSULIN DETEMIR 100 UNIT/ML 3 ML PEN SUBCUT SCH ×2 (10:31→18:46)
[2017-02-20] MEDS: ENOXAPARIN SODIUM INJ 40 MG/0.4 ML DISP.SYRIN SUBCUT SCH (10:31)
[2017-02-20] MEDS: TIOTROPIUM BROMIDE DPI 5 CAP/KIT (18 MCG/CAP) IH SCH (12:07)
--- NOTE | 2017-02-20 13:47 | PDOC PROGRESS REPORT ---
Subjective Progress Note for:: 02/20/17 Subjective:: Patient complaint of shortness of breath Reason For Visit: PNEUMONIA,ACUTE HYPERCAPNIC RESPIRATORY Physical Exam Vital Signs: Temp Pulse Resp BP Pulse Ox 98.1 F 101 H 22 H 126/74 H 94 02/20/17 11:53 02/20/17 11:57 02/20/17 11:57 02/20/17 11:53 02/20/17 11:57 Intake & Output 02/19/17 02/20/17 02/21/17 06:59 06:59 06:59 Intake Total 439 978 Output Total 1100 5304 Balance -812 -9727 Weight 119 kg 116.2 kg General appearance: PRESENT: mild distress Head exam: PRESENT: atraumatic, normocephalic Ear exam: PRESENT: normal external ear exam Mouth exam: PRESENT: moist, tongue midline Neck exam: PRESENT: full ROM Respiratory exam: PRESENT: wheezes Cardiovascular exam: PRESENT: RRR, +S1, +S2 Pulses: PRESENT: normal dorsalis pedis pul, +2 pedal pulses bilateral Vascular exam: PRESENT: normal capillary refill GI/Abdominal exam: PRESENT: normal bowel sounds, soft Rectal exam: PRESENT: deferred Neurological exam: PRESENT: alert, awake, oriented to person, oriented to place , oriented to time, oriented to situation, CN II-XII grossly intact Psychiatric exam: PRESENT: appropriate affect, normal mood Skin exam: PRESENT: dry, intact, warm Results Laboratory Results: 02/18/17 04:00 02/18/17 04:00 02/09/17 02/09/17 00:37 00:37 Creatine Kinase 109 Troponin I 0.748 Impressions: Chest X-Ray 02/13/17 00:00 IMPRESSION: Left PICC line catheter tip overlies the SVC at the level of the jessica. Improved aeration in the right lung base. Guidance Fluoroscopy 02/13/17 00:00 IMPRESSION: SUCCESSFUL PLACEMENT OF A 5 FR DUAL LUMEN 46 CM PICC IN THE LEFT BASILIC VEIN. Interventional Vascular Procedure 02/13/17 00:00 IMPRESSION: SUCCESSFUL PLACEMENT OF A 5 FR DUAL LUMEN 46 CM PICC IN THE LEFT BASILIC VEIN. PICC Line Insertion 02/13/17 00:00 IMPRESSION: SUCCESSFUL PLACEMENT OF A 5 FR DUAL LUMEN 46 CM PICC IN THE LEFT BASILIC VEIN. Assessment & Plan - Diagnosis (1) Right lower lobe pneumonia Qualifiers: Pneumonia type: due to unspecified organism Qualified Code(s): J18.1 - Lobar pneumonia, unspecified organism Is this a current diagnosis for this admission?: Yes (2) Acute hypercapnic respiratory failure Is this a current diagnosis for this admission?: Yes (3) Chronic obstructive pulmonary disease Qualifiers: COPD type: unspecified COPD Qualified Code(s): J44.9 - Chronic obstructive pulmonary disease, unspecified Is this a current diagnosis for this admission?: Yes (4) Chronic obstructive pulmonary disease with (acute) exacerbation Is this a current diagnosis for this admission?: Yes Plan: Start IV Solu-Medrol
[2017-02-20] MEDS: METHYLPREDNISOLONE INJ 125 MG/2 ML SDV IV SCH ×2 (15:24→21:42)
[2017-02-20] MEDS: METFORMIN HCL 500 MG TABLET PO SCH (18:47)
[2017-02-20] MEDS: ZOLPIDEM TARTRATE 5 MG TABLET PO SCH (21:41)
[2017-02-20] MEDS: ATORVASTATIN CALCIUM 40 MG TABLET PO SCH (21:42)
[2017-02-21] MEDS: IPRATROPIUM/ALBUTEROL 0.5-2.5 MG/3 ML AMPUL NEB SCH ×7 (00:14→23:50)
[2017-02-21] MEDS: GABAPENTIN 300 MG CAPSULE PO SCH ×3 (05:28→21:33)
[2017-02-21] MEDS: TRAMADOL HCL 50 MG TABLET PO PRN ×3 (05:28→21:33)
[2017-02-21] MEDS: METHYLPREDNISOLONE INJ 125 MG/2 ML SDV IV SCH ×3 (05:28→21:35)
[2017-02-21] MEDS: NORMAL SALINE 10 ML SDV (AFTER EACH USE) IV PRN ×3 (05:29→21:36)
[2017-02-21] MEDS: INSULIN LISPRO 100 UNIT/ML 3 ML VIAL SUBCUT PRN ×4 (07:56→21:48)
[2017-02-21] MEDS: MAGNESIUM OXIDE 400 MG TABLET PO SCH (09:37)
[2017-02-21] MEDS: MULTIVIT-STRESS FORMULA/ZINC TABLET PO SCH (09:37)
[2017-02-21] MEDS: ASPIRIN 81 MG TABLET, CHEWABLE PO SCH (09:37)
[2017-02-21] MEDS: DULOXETINE HCL 30 MG CAPSULE.DR PO SCH (09:37)
[2017-02-21] MEDS: ENOXAPARIN SODIUM INJ 40 MG/0.4 ML DISP.SYRIN SUBCUT SCH (09:37)
[2017-02-21] MEDS: INSULIN DETEMIR 100 UNIT/ML 3 ML PEN SUBCUT SCH ×2 (09:38→17:16)
[2017-02-21] MEDS: TIOTROPIUM BROMIDE DPI 5 CAP/KIT (18 MCG/CAP) IH SCH (09:38)
[2017-02-21] MEDS: FLUTICASONE/SALMETEROL DISKUS 250-50 MCG/DOSE IH SCH ×2 (09:38→21:33)
[2017-02-21] MEDS: NORMAL SALINE 10 ML SDV (SCHEDULED) IV SCH ×2 (09:49→21:35)
[2017-02-21] MEDS: BUTALB/ACETAMINOPHEN/CAFFEINE 1 TAB EACH PO PRN (11:31)
--- NOTE | 2017-02-21 12:01 | PDOC PROGRESS REPORT ---
Subjective Progress Note for:: 02/21/17 Subjective:: She was seen at the bedside, yesterday she was started on intravenous Solu- Medrol because she had audible wheeze in both lung ashley on auscultation. She seems to be responding very well to treatment she has less wheeze today Reason For Visit: PNEUMONIA,ACUTE HYPERCAPNIC RESPIRATORY Physical Exam Vital Signs: Temp Pulse Resp BP Pulse Ox 98.2 F 100 22 H 135/65 H 100 02/21/17 07:47 02/21/17 08:40 02/21/17 08:40 02/21/17 07:47 02/21/17 08:40 Intake & Output 02/20/17 02/21/17 02/22/17 06:59 06:59 06:59 Intake Total 978 1054 Output Total 2644 975 Balance -1666 79 Weight 116.2 kg 114.6 kg General appearance: PRESENT: no acute distress, well-developed, well-nourished Head exam: PRESENT: atraumatic, normocephalic Eye exam: PRESENT: conjunctiva pink, EOMI, PERRLA Ear exam: PRESENT: normal external ear exam Mouth exam: PRESENT: moist, tongue midline Neck exam: PRESENT: full ROM Respiratory exam: PRESENT: clear to auscultation rolf Cardiovascular exam: PRESENT: RRR, +S1, +S2 Pulses: PRESENT: normal dorsalis pedis pul, +2 pedal pulses bilateral Vascular exam: PRESENT: normal capillary refill GI/Abdominal exam: PRESENT: normal bowel sounds, soft Rectal exam: PRESENT: deferred Neurological exam: PRESENT: alert Psychiatric exam: PRESENT: appropriate affect, normal mood Skin exam: PRESENT: dry, intact, warm. ABSENT: cyanosis, rash Results Laboratory Results: 02/18/17 04:00 02/18/17 04:00 02/09/17 02/09/17 00:37 00:37 Creatine Kinase 109 Troponin I 0.748 Impressions: Chest X-Ray 02/13/17 00:00 IMPRESSION: Left PICC line catheter tip overlies the SVC at the level of the jessica. Improved aeration in the right lung base. Guidance Fluoroscopy 02/13/17 00:00 IMPRESSION: SUCCESSFUL PLACEMENT OF A 5 FR DUAL LUMEN 46 CM PICC IN THE LEFT BASILIC VEIN. Interventional Vascular Procedure 02/13/17 00:00 IMPRESSION: SUCCESSFUL PLACEMENT OF A 5 FR DUAL LUMEN 46 CM PICC IN THE LEFT BASILIC VEIN. PICC Line Insertion 02/13/17 00:00 IMPRESSION: SUCCESSFUL PLACEMENT OF A 5 FR DUAL LUMEN 46 CM PICC IN THE LEFT BASILIC VEIN. Assessment & Plan - Diagnosis (1) Right lower lobe pneumonia Qualifiers: Pneumonia type: due to unspecified organism Qualified Code(s): J18.1 - Lobar pneumonia, unspecified organism Is this a current diagnosis for this admission?: Yes (2) Acute hypercapnic respiratory failure Is this a current diagnosis for this admission?: Yes (3) Chronic obstructive pulmonary disease Qualifiers: COPD type: unspecified COPD Qualified Code(s): J44.9 - Chronic obstructive pulmonary disease, unspecified Is this a current diagnosis for this admission?: Yes (4) Chronic obstructive pulmonary disease with (acute) exacerbation Is this a current diagnosis for this admission?: Yes - Plan Summary Plan Summary: She will continue present treatment
[2017-02-21 15:46] LABS: ALANINE AMINOTRANSFERASE 18 U/L (9-52); ALBUMIN 3.7 g/dL (3.5-5.0); ALKALINE PHOSPHATASE 67 U/L (38-126); ANION GAP 11 (5-19); ASPARTATE AMINO TRANSFERASE 12 U/L (14-36); BILIRUBIN,DIRECT 0.2 mg/dL (0.0-0.4); BILIRUBIN,TOTAL 0.3 mg/dL (0.2-1.3); BLOOD UREA NITROGEN 18 mg/dL (7-20); CALCIUM 9.4 mg/dL (8.4-10.2); CARBON DIOXIDE 34 mmol/L (22-30); CHLORIDE 98 mmol/L (98-107); GLUCOSE 198 mg/dL (75-110); POTASSIUM 4.4 mmol/L (3.6-5.0); SODIUM 143.2 mmol/L (137-145); TOTAL PROTEIN 6.2 g/dL (6.3-8.2)
[2017-02-21 15:49] LABS: ABSOLUTE LYMPHOCYTES (AUTO) 0.6 10^3/uL (0.5-4.7); ABSOLUTE MONOCYTES (AUTO) 0.9 10^3/uL (0.1-1.4); ABSOLUTE NEUT (AUTO) 9.6 10^3/uL (1.7-8.2); BASOPHILS % (AUTO) 0.4 % (0-2); EOSINOPHILS % (AUTO) 0.3 % (0-6); HEMATOCRIT 35.2 % (36.0-47.0); HEMOGLOBIN 11.1 g/dL (12.0-15.5); LYMPHOCYTES % (AUTO) 5.5 % (13-45); MEAN CORPUSCULAR HEMOGLOBIN 28.3 pg (27.0-33.4); MEAN CORPUSCULAR HGB CONC 31.7 g/dL (32.0-36.0); MEAN CORPUSCULAR VOLUME 89 fl (80-97); MONOCYTES % (AUTO) 7.9 % (3-13); PLATELET COUNT 300 10^3/uL (150-450); RED BLOOD COUNT 3.94 10^6/uL (3.72-5.28); RED CELL DISTRIBUTION WIDTH 20.4 % (11.5-14.0); SEGMENTED NEUTROPHILS % (AUTO) 85.9 % (42-78); TOTAL CELLS COUNTED % (AUTO) 100 %; WHITE BLOOD COUNT 11.2 10^3/uL (4.0-10.5)
[2017-02-21] MEDS: METFORMIN HCL 500 MG TABLET PO SCH (17:17)
[2017-02-21] MEDS: ATORVASTATIN CALCIUM 40 MG TABLET PO SCH (21:33)
[2017-02-21] MEDS: ZOLPIDEM TARTRATE 5 MG TABLET PO SCH (21:34)
[2017-02-22] MEDS: IPRATROPIUM/ALBUTEROL 0.5-2.5 MG/3 ML AMPUL NEB SCH ×5 (03:46→20:07)
[2017-02-22] MEDS: TRAMADOL HCL 50 MG TABLET PO PRN (04:31)
[2017-02-22] MEDS: BUTALB/ACETAMINOPHEN/CAFFEINE 1 TAB EACH PO PRN (04:33)
[2017-02-22] MEDS: GABAPENTIN 300 MG CAPSULE PO SCH (05:39)
[2017-02-22] MEDS: METHYLPREDNISOLONE INJ 125 MG/2 ML SDV IV SCH ×3 (05:39→17:20)
[2017-02-22 06:40] LABS: ARTERIAL BLOOD BASE EXCESS -6.3 mmol/L; ARTERIAL BLOOD H2CO3 5.13 mmol/L (1.05-1.35); ARTERIAL BLOOD HCO3 31.3 mmol/L (20-26); ARTERIAL BLOOD O2 SATURATION 99.4 % (94-98); ARTERIAL BLOOD PO2 367.8 mmHg (80-100); ARTERIAL BLOOD TOTAL CO2 36.5 mmol/L (21-25)
[2017-02-22 06:46] LABS: ARTERIAL BLOOD PCO2 170.5 mmHg (35-45); ARTERIAL BLOOD PH 6.88 (7.35-7.45)
[2017-02-22 06:47] LABS: ARTERIAL BLOOD FIO2 100%
--- NOTE | 2017-02-22 06:57 | ER Document Report ---
Doctor's Note Notes: 02/22/17 06:54 As the attending ED physician I was notified by nursing staff that there was a rapid response on the third floor requiring immediate attention, anesthesia is not available, patient required intubation and was not protecting her airway was no longer responsive to pain stimuli. I immediately went up there with Gonzalez IBANEZ and we evaluated the patient, it was noted that she was being bagged, she was not responding to any stimuli, as a result we did intubate the patient. We had limited medications, patient was given 100 mg of succinylcholine, under my supervision Robin intubated the patient using a 7-1/2 ET tube in the MAC 4 blade. Good color change was noted, there was condensation in the tube, the tube was at 23 at the lips. Chest x-ray has been ordered patient will be moved to the ICU. Dr. Sandoval who is covering for the patient was notified
[2017-02-22 07:00] LABS: INTERNATIONAL RATION (INR) 0.94; PROTHROMBIN TIME 13.3 SEC (11.4-15.4)
[2017-02-22 07:01] LABS: PARTIAL THROMBOPLASTIN TIME 28.1 SEC (23.5-35.8)
[2017-02-22 07:14] LABS: ALANINE AMINOTRANSFERASE 17 U/L (9-52); ALBUMIN 4.3 g/dL (3.5-5.0); ALKALINE PHOSPHATASE 71 U/L (38-126); ANION GAP 17 (5-19); ASPARTATE AMINO TRANSFERASE 21 U/L (14-36); BILIRUBIN,DIRECT 0.2 mg/dL (0.0-0.4); BILIRUBIN,TOTAL 0.2 mg/dL (0.2-1.3); BLOOD UREA NITROGEN 24 mg/dL (7-20); CALCIUM 9.5 mg/dL (8.4-10.2); CARBON DIOXIDE 28 mmol/L (22-30); CHLORIDE 96 mmol/L (98-107); GLUCOSE 384 mg/dL (75-110); MAGNESIUM 2.3 mg/dL (1.6-2.3); PHOSPHORUS 8.2 mg/dL (2.5-4.5); SODIUM 140.5 mmol/L (137-145); TOTAL PROTEIN 6.8 g/dL (6.3-8.2)
[2017-02-22] MEDS ORDERED: NOREPINEPHRINE BITARTRATE INJ/PF 4 MG/4 ML SDV IV ONE (07:18)
[2017-02-22 07:21] LABS: CREATINE KINASE MB 1.52 ng/mL (<4.55)
[2017-02-22 07:24] LABS: ABSOLUTE LYMPHOCYTES (AUTO) 0.6 10^3/uL (0.5-4.7); ABSOLUTE MONOCYTES (AUTO) 0.2 10^3/uL (0.1-1.4); ABSOLUTE NEUT (AUTO) 9.3 10^3/uL (1.7-8.2); BASOPHILS % (AUTO) 0.3 % (0-2); HEMATOCRIT 37.5 % (36.0-47.0); HEMOGLOBIN 11.6 g/dL (12.0-15.5); LYMPHOCYTES % (AUTO) 5.8 % (13-45); MEAN CORPUSCULAR HEMOGLOBIN 28.1 pg (27.0-33.4); MEAN CORPUSCULAR HGB CONC 30.8 g/dL (32.0-36.0); MEAN CORPUSCULAR VOLUME 91 fl (80-97); MONOCYTES % (AUTO) 2.4 % (3-13); PLATELET COUNT 363 10^3/uL (150-450); RED BLOOD COUNT 4.11 10^6/uL (3.72-5.28); RED CELL DISTRIBUTION WIDTH 20.7 % (11.5-14.0); SEGMENTED NEUTROPHILS % (AUTO) 91.5 % (42-78); TOTAL CELLS COUNTED % (AUTO) 100 %; WHITE BLOOD COUNT 10.2 10^3/uL (4.0-10.5)
[2017-02-22 07:34] LABS: POTASSIUM 5.7 mmol/L (3.6-5.0)
[2017-02-22 07:43] LABS: TROPONIN I 0.031 ng/mL
[2017-02-22 08:09] LABS: ARTERIAL BLOOD BASE EXCESS -0.4 mmol/L; ARTERIAL BLOOD H2CO3 2.53 mmol/L (1.05-1.35); ARTERIAL BLOOD HCO3 30.1 mmol/L (20-26); ARTERIAL BLOOD O2 SATURATION 91.3 % (94-98); ARTERIAL BLOOD PO2 77.9 mmHg (80-100); ARTERIAL BLOOD TOTAL CO2 32.7 mmol/L (21-25)
[2017-02-22 08:10] LABS: ARTERIAL BLOOD FIO2 40%
[2017-02-22 08:11] LABS: ARTERIAL BLOOD PCO2 83.9 mmHg (35-45); ARTERIAL BLOOD PH 7.17 (7.35-7.45)
--- NOTE | 2017-02-22 08:12 | RADIOLOGY REPORT (SQ) ---
EXAM DESCRIPTION: CHEST SINGLE VIEW COMPLETED DATE/TIME: 02/22/2017 8:01 am REASON FOR STUDY: Et tube Palcement COMPARISON: 02/13/2017 EXAM PARAMETERS: NUMBER OF VIEWS: One view. TECHNIQUE: Single frontal radiographic view of the chest acquired. RADIATION DOSE: NA LIMITATIONS: None. FINDINGS: LUNGS AND PLEURA: Minimal interstitial edema evidence by Ankit B-lines. Lungs and pleura l spaces otherwise clear. No pneumothorax. MEDIASTINUM AND HILAR STRUCTURES: No masses. Contour normal. HEART AND VASCULAR STRUCTURES: Heart stable in size. Normal vasculature. BONES: No acute findings. HARDWARE: Endotracheal tube terminates 3.2 cm above the jessica. Nasogastric tube satisfactory positi oned in the stomach. Left-sided PICC terminates within the caval atrial junction. OTHER: No other significant finding. IMPRESSION: SATISFACTORY POSITION OF LINE/TUBES. MILD INTERSTITIAL EDEMA. TECHNICAL DOCUMENTATION: JOB ID: [id number] [employer]- All Rights Reserved
[2017-02-22] MEDS ORDERED: BUTALB/ACETAMINOPHEN/CAFFEINE 1 TAB EACH NG PRN (09:10)
[2017-02-22] MEDS ORDERED: TRAMADOL HCL 50 MG TABLET NG PRN (09:14)
[2017-02-22] MEDS ORDERED: PHARMACY COMMUNICATION ORDER MC NR (09:15)
[2017-02-22] MEDS ORDERED: DEXTROSE 5%-WATER 250 ML with NOREPINEPHRINE BITARTRATE 4 MG IV PRN ×2 (09:24)
[2017-02-22] MEDS ORDERED: SUCCINYLCHOLINE CHLORIDE INJ 200 MG/10 ML VIAL ONE (09:32)
[2017-02-22] MEDS ORDERED: LORAZEPAM INJ 2 MG/1 ML VIAL ONE (10:11)
[2017-02-22 10:19] LABS: ARTERIAL BLOOD BASE EXCESS 1.6 mmol/L; ARTERIAL BLOOD FIO2 40%; ARTERIAL BLOOD H2CO3 1.38 mmol/L (1.05-1.35); ARTERIAL BLOOD PCO2 45.8 mmHg (35-45); ARTERIAL BLOOD PH 7.39 (7.35-7.45); ARTERIAL BLOOD PO2 83.1 mmHg (80-100); ARTERIAL BLOOD TOTAL CO2 28.4 mmol/L (21-25)
--- NOTE | 2017-02-22 10:23 | PDOC PROGRESS REPORT ---
Subjective Progress Note for:: 02/22/17 Subjective:: This is 66-year-old females with a significant history of the COPD and history of the congestive heart failure and coronary disease and a multiple hospital admissions multiple hospital evaluations basically admitted for the pneumonia and COPD underwent for the respiratory distress and rapid response was called and patient was intubated and put in the intensive care units Patient is currently on Levophed drips currently on a ventilations Reason For Visit: PNEUMONIA,ACUTE HYPERCAPNIC RESPIRATORY Physical Exam Vital Signs: Temp Pulse Resp BP Pulse Ox 98.1 F 70 20 108/55 L 99 02/22/17 08:23 02/22/17 08:55 02/22/17 08:55 02/22/17 08:23 02/22/17 08:55 Intake & Output 02/21/17 02/22/17 02/23/17 06:59 06:59 06:59 Intake Total 1054 1275 Output Total 975 650 Balance 79 625 Weight 114.6 kg 119.2 kg Physical Exam: Currently intubated on ventilations General appearance: PRESENT: no acute distress Head exam: PRESENT: normocephalic Eye exam: PRESENT: PERRLA Respiratory exam: PRESENT: decreased breath sounds Cardiovascular exam: PRESENT: +S2 Extremities exam: ABSENT: pedal edema Neurological exam: PRESENT: altered Skin exam: PRESENT: dry Results Laboratory Results: 02/22/17 07:15 02/22/17 06:40 02/21/17 02/21/17 02/22/17 15:13 15:13 06:30 WBC 11.2 H RBC 3.94 Hgb 11.1 L Hct 35.2 L MCV 89 MCH 28.3 MCHC 31.7 L RDW 20.4 H Plt Count 300 Seg Neutrophils % 85.9 H Lymphocytes % 5.5 L Monocytes % 7.9 Eosinophils % 0.3 Basophils % 0.4 Absolute Neutrophils 9.6 H Absolute Lymphocytes 0.6 Absolute Monocytes 0.9 Absolute Eosinophils 0.0 Absolute Basophils 0.0 Carbonic Acid 5.13 H HCO3/H2CO3 Ratio 6:1 ABG pH 6.88 L* ABG pCO2 170.5 H* ABG pO2 367.8 H ABG HCO3 31.3 H ABG O2 Saturation 99.4 H ABG Base Excess -6.3 FiO2 100% Sodium 143.2 Potassium 4.4 Chloride 98 Carbon Dioxide 34 H Anion Gap 11 BUN 18 Creatinine 0.66 Est GFR ( Amer) > 60 Est GFR (Non-Af Amer) > 60 Glucose 198 H Calcium 9.4 Phosphorus Magnesium Total Bilirubin 0.3 AST 12 L ALT 18 Alkaline Phosphatase 67 Total Protein 6.2 L Albumin 3.7 02/22/17 02/22/17 02/22/17 06:40 06:40 07:15 WBC Cancelled 10.2 RBC Cancelled 4.11 Hgb Cancelled 11.6 L Hct Cancelled 37.5 MCV Cancelled 91 MCH Cancelled 28.1 MCHC Cancelled 30.8 L RDW Cancelled 20.7 H Plt Count Cancelled 363 Seg Neutrophils % Cancelled 91.5 H Lymphocytes % Cancelled 5.8 L Monocytes % Cancelled 2.4 L Eosinophils % Cancelled 0.0 Basophils % Cancelled 0.3 Absolute Neutrophils Cancelled 9.3 H Absolute Lymphocytes Cancelled 0.6 Absolute Monocytes Cancelled 0.2 Absolute Eosinophils Cancelled 0.0 Absolute Basophils Cancelled 0.0 Carbonic Acid HCO3/H2CO3 Ratio ABG pH ABG pCO2 ABG pO2 ABG HCO3 ABG O2 Saturation ABG Base Excess FiO2 Sodium 140.5 Potassium 5.7 H D Chloride 96 L Carbon Dioxide 28 Anion Gap 17 BUN 24 H Creatinine 0.78 Est GFR ( Amer) > 60 Est GFR (Non-Af Amer) > 60 Glucose 384 H Calcium 9.5 Phosphorus 8.2 H Magnesium 2.3 Total Bilirubin 0.2 AST 21 ALT 17 Alkaline Phosphatase 71 Total Protein 6.8 Albumin 4.3 02/22/17 02/22/17 07:30 10:00 WBC RBC Hgb Hct MCV MCH MCHC RDW Plt Count Seg Neutrophils % Lymphocytes % Monocytes % Eosinophils % Basophils % Absolute Neutrophils Absolute Lymphocytes Absolute Monocytes Absolute Eosinophils Absolute Basophils Carbonic Acid 2.53 H 1.38 H HCO3/H2CO3 Ratio 11:1 19:1 ABG pH 7.17 L* 7.39 ABG pCO2 83.9 H* 45.8 H ABG pO2 77.9 L 83.1 ABG HCO3 30.1 H 27.0 H ABG O2 Saturation 91.3 L 96.0 ABG Base Excess -0.4 1.6 FiO2 40% 40% Sodium Potassium Chloride Carbon Dioxide Anion Gap BUN Creatinine Est GFR ( Amer) Est GFR (Non-Af Amer) Glucose Calcium Phosphorus Magnesium Total Bilirubin AST ALT Alkaline Phosphatase Total Protein Albumin 02/09/17 02/09/17 02/22/17 00:37 00:37 06:40 Creatine Kinase 109 37 CK-MB (CK-2) Troponin I 0.748 02/22/17 06:40 Creatine Kinase CK-MB (CK-2) 1.52 Troponin I 0.031 Impressions: Guidance Fluoroscopy 02/13/17 00:00 IMPRESSION: SUCCESSFUL PLACEMENT OF A 5 FR DUAL LUMEN 46 CM PICC IN THE LEFT BASILIC VEIN. Interventional Vascular Procedure 02/13/17 00:00 IMPRESSION: SUCCESSFUL PLACEMENT OF A 5 FR DUAL LUMEN 46 CM PICC IN THE LEFT BASILIC VEIN. PICC Line Insertion 02/13/17 00:00 IMPRESSION: SUCCESSFUL PLACEMENT OF A 5 FR DUAL LUMEN 46 CM PICC IN THE LEFT BASILIC VEIN. Chest X-Ray 02/22/17 00:00 IMPRESSION: SATISFACTORY POSITION OF LINE/TUBES. MILD INTERSTITIAL EDEMA. Assessment & Plan - Diagnosis (1) Acute hypercapnic respiratory failure Is this a current diagnosis for this admission?: Yes Plan: Currently intubated on the vent management consult the pulmonary (2) COPD exacerbation Is this a current diagnosis for this admission?: Yes Plan: Continues on nebulizer treatments and IV Solu-Medrol (3) Right lower lobe pneumonia Qualifiers: Pneumonia type: due to unspecified organism Qualified Code(s): J18.1 - Lobar pneumonia, unspecified organism Is this a current diagnosis for this admission?: Yes Plan: The patient on IV cefepime (4) Anxiety Is this a current diagnosis for this admission?: Yes (5) Cardiomyopathy Qualifiers: Cardiomyopathy type: unspecified Qualified Code(s): I42.9 - Cardiomyopathy , unspecified Is this a current diagnosis for this admission?: Yes Plan: Daniele the Lasix and consult the cardiology - Time Time Spent with patient: 15-24 minutes Medications reviewed and adjusted accordingly: Yes Anticipated discharge: Other Within: Other - Inpatient Certification Medical Necessity: Need Close Monitoring Due to Risk of Patient Decompensation Post Hospital Care: D/C Card Hanger Documentation - Plan Summary Plan Summary: Discussed with the patient and family in ICU discussed with the other coordinate care patient have a prognosis
[2017-02-22] MEDS: NORMAL SALINE 10 ML SDV (SCHEDULED) IV SCH ×2 (11:14→22:31)
[2017-02-22] MEDS: FLUTICASONE/SALMETEROL DISKUS 250-50 MCG/DOSE IH SCH ×2 (11:14→22:05)
[2017-02-22] MEDS: TIOTROPIUM BROMIDE DPI 5 CAP/KIT (18 MCG/CAP) IH SCH (11:14)
--- NOTE | 2017-02-22 11:41 | EKG REPORT ---
SEVERITY:- ABNORMAL ECG - SINUS RHYTHM PROBABLE LEFT ATRIAL ABNORMALITY LEFT BUNDLE BRANCH BLOCK : Confirmed by: Yoko Martinez 22-Feb-2017 11:40:29
[2017-02-22] MEDS ORDERED: FUROSEMIDE INJ/PF 20 MG/2 ML SDV ONE (12:28)
[2017-02-22] MEDS: PROPOFOL 100 ML IV PRN ×2 (12:39→20:15)
[2017-02-22] MEDS: MAGNESIUM OXIDE 400 MG TABLET NG SCH (12:40)
[2017-02-22] MEDS: DULOXETINE HCL 30 MG CAPSULE.DR PO SCH (12:40)
[2017-02-22] MEDS: MULTIVIT-STRESS FORMULA/ZINC TABLET NG SCH (12:40)
[2017-02-22] MEDS: ASPIRIN 81 MG TABLET, CHEWABLE NG SCH (12:41)
[2017-02-22] MEDS: GABAPENTIN 300 MG CAPSULE NG SCH ×2 (12:41→22:31)
[2017-02-22] MEDS: CEFEPIME 1 GM/D5W RTU 1 GM/50 ML RTUPB IV SCH ×2 (12:42→22:31)
[2017-02-22] MEDS: INSULIN DETEMIR 100 UNIT/ML 3 ML PEN SUBCUT SCH ×2 (12:43→17:33)
[2017-02-22] MEDS: INSULIN LISPRO 100 UNIT/ML 3 ML VIAL SUBCUT PRN ×2 (12:45→17:36)
[2017-02-22] MEDS: ENOXAPARIN SODIUM INJ 40 MG/0.4 ML DISP.SYRIN SUBCUT SCH (12:46)
[2017-02-22] MEDS: NORMAL SALINE 10 ML SDV (AFTER EACH USE) IV PRN (12:48)
[2017-02-22] MEDS ORDERED: FUROSEMIDE INJ/PF 20 MG/2 ML SDV IV ONE (13:00)
[2017-02-22 13:39] LABS: CREATINE KINASE MB 1.63 ng/mL (<4.55); TROPONIN I 0.06 ng/mL
[2017-02-22 16:58] LABS: ARTERIAL BLOOD BASE EXCESS 9.4 mmol/L; ARTERIAL BLOOD FIO2 40%; ARTERIAL BLOOD H2CO3 1.36 mmol/L (1.05-1.35); ARTERIAL BLOOD HCO3 33.8 mmol/L (20-26); ARTERIAL BLOOD O2 SATURATION 95.9 % (94-98); ARTERIAL BLOOD PCO2 45.2 mmHg (35-45); ARTERIAL BLOOD PH 7.49 (7.35-7.45); ARTERIAL BLOOD TOTAL CO2 35.2 mmol/L (21-25)
[2017-02-22] MEDS ORDERED: METFORMIN HCL 500 MG TABLET NG SCH (17:00)
[2017-02-22] MEDS: LORAZEPAM 24 MG/ D5W 240 ML IV PRN ×2 (17:21→22:30)
[2017-02-22] MEDS ORDERED: INSULIN DETEMIR 100 UNIT/ML 3 ML PEN SUBCUT ONE (17:36)
[2017-02-22 18:28] LABS: ALBUMIN 3.6 g/dL (3.5-5.0); ANION GAP 9 (5-19); BLOOD UREA NITROGEN 27 mg/dL (7-20); CALCIUM 8.8 mg/dL (8.4-10.2); CARBON DIOXIDE 32 mmol/L (22-30); CHLORIDE 94 mmol/L (98-107); GLUCOSE 306 mg/dL (75-110); TOTAL PROTEIN 5.9 g/dL (6.3-8.2)
[2017-02-22 18:29] LABS: ALANINE AMINOTRANSFERASE 30 U/L (9-52); ALKALINE PHOSPHATASE 67 U/L (38-126); ASPARTATE AMINO TRANSFERASE 15 U/L (14-36); BILIRUBIN,DIRECT 0.1 mg/dL (0.0-0.4); BILIRUBIN,TOTAL 0.1 mg/dL (0.2-1.3)
[2017-02-22 18:35] LABS: POTASSIUM 3.8 mmol/L (3.6-5.0)
[2017-02-22 18:40] LABS: CREATINE KINASE MB 1.41 ng/mL (<4.55); TROPONIN I 0.047 ng/mL
[2017-02-22] MEDS: BUDESONIDE NEB 0.5 MG/2 ML AMPUL NEB SCH (20:07)
[2017-02-22] MEDS: ZOLPIDEM TARTRATE 5 MG TABLET NG SCH (22:05)
[2017-02-22] MEDS: ATORVASTATIN CALCIUM 40 MG TABLET NG SCH (22:31)
[2017-02-22] MEDS: FUROSEMIDE INJ/PF 20 MG/2 ML SDV IV SCH (22:31)
[2017-02-23] MEDS: METHYLPREDNISOLONE INJ 125 MG/2 ML SDV IV SCH ×4 (00:16→18:13)
[2017-02-23] MEDS: INSULIN LISPRO 100 UNIT/ML 3 ML VIAL SUBCUT PRN ×2 (00:17→18:26)
[2017-02-23] MEDS ORDERED: NOREPINEPHRINE BITARTRATE INJ/PF 4 MG/4 ML SDV IV ONE (00:19)
[2017-02-23] MEDS: IPRATROPIUM/ALBUTEROL 0.5-2.5 MG/3 ML AMPUL NEB SCH ×7 (00:39→23:35)
[2017-02-23] MEDS: PROPOFOL 100 ML IV PRN ×4 (00:49→19:56)
[2017-02-23] MEDS ORDERED: METHYLPREDNISOLONE INJ 40 MG/1 ML SDV ONE (04:28)
[2017-02-23] MEDS: LORAZEPAM 24 MG/ D5W 240 ML IV PRN ×2 (04:29→10:40)
[2017-02-23] MEDS: GABAPENTIN 300 MG CAPSULE NG SCH ×3 (05:27→21:12)
[2017-02-23] MEDS: NORMAL SALINE 10 ML SDV (AFTER EACH USE) IV PRN (05:28)
[2017-02-23 05:38] LABS: HEMATOCRIT 31.7 % (36.0-47.0); HEMOGLOBIN 10.7 g/dL (12.0-15.5); MEAN CORPUSCULAR HEMOGLOBIN 29.7 pg (27.0-33.4); MEAN CORPUSCULAR HGB CONC 33.8 g/dL (32.0-36.0); MEAN CORPUSCULAR VOLUME 88 fl (80-97); PLATELET COUNT 300 10^3/uL (150-450); RED BLOOD COUNT 3.61 10^6/uL (3.72-5.28); RED CELL DISTRIBUTION WIDTH 20.5 % (11.5-14.0); WHITE BLOOD COUNT 9.4 10^3/uL (4.0-10.5)
[2017-02-23 05:49] LABS: ARTERIAL BLOOD H2CO3 1.23 mmol/L (1.05-1.35); ARTERIAL BLOOD HCO3 31.8 mmol/L (20-26); ARTERIAL BLOOD O2 SATURATION 95.8 % (94-98); ARTERIAL BLOOD PH 7.51 (7.35-7.45); ARTERIAL BLOOD PO2 72.7 mmHg (80-100)
[2017-02-23 05:51] LABS: ARTERIAL BLOOD FIO2 30%
[2017-02-23 06:24] LABS: APPEARANCE,URINE SLIGHTLY-CLOUDY; BILIRUBIN,URINE NEGATIVE (NEGATIVE); COLOR,URINE YELLOW; GLUCOSE, URINE NEGATIVE (NEGATIVE); KETONES,URINE NEGATIVE (NEGATIVE); LEUKOCYTE ESTERASE,URINE NEGATIVE (NEGATIVE); NITRITE,URINE NEGATIVE (NEGATIVE); PROTEIN,URINE NEGATIVE (NEGATIVE); URINE SPECIFIC GRAVITY 1.018; UROBILINOGEN,URINE NEGATIVE mg/dL (<2.0)
[2017-02-23 06:33] LABS: ANION GAP 10 (5-19); BLOOD UREA NITROGEN 29 mg/dL (7-20); CALCIUM 8.5 mg/dL (8.4-10.2); CARBON DIOXIDE 32 mmol/L (22-30); CHLORIDE 93 mmol/L (98-107); GLUCOSE 251 mg/dL (75-110); POTASSIUM 3.7 mmol/L (3.6-5.0); SODIUM 134.5 mmol/L (137-145)
[2017-02-23 06:39] LABS: ABSOLUTE LYMPHOCYTES# (MANUAL) 0.3 10^3/uL (0.5-4.7); ABSOLUTE MONOCYTES # (MANUAL) 0.2 10^3/uL (0.1-1.4); ABSOLUTE NEUTROPHILS# (MANUAL) 8.9 10^3/uL (1.7-8.2); BASOPHILS % (MANUAL) 0 % (0-2); EOSINOPHILS % (MANUAL) 0 % (0-6); LYMPHOCYTES % (MANUAL) 3 % (13-45); MONOCYTES % (MANUAL) 2 % (3-13); SEGMENTED NEUTROPHILS % (MAN) 95 % (42-78); TOTAL CELLS COUNTED 100
[2017-02-23 06:41] LABS: ANISOCYTOSIS 2+; OVALOCYTES 1+; PLATELET CLUMPS PRESENT; PLATELET COMMENT ADEQUATE; POIKILOCYTOSIS SLIGHT; POLYCHROMASIA SLIGHT; TOXIC VACUOLATION PRESENT
[2017-02-23 07:08] LABS: PHOSPHORUS 3.6 mg/dL (2.5-4.5)
[2017-02-23] MEDS: BUDESONIDE NEB 0.5 MG/2 ML AMPUL NEB SCH ×2 (07:48→20:05)
--- NOTE | 2017-02-23 08:01 | RADIOLOGY REPORT (SQ) ---
EXAM DESCRIPTION: CHEST SINGLE VIEW CLINICAL HISTORY: 66 years, Female, acute/chronic resp failure COMPARISON: 02.22.17 FINDINGS: New opacification of the left lung base and left costophrenic angle, prominent interstitium, moderately aerated left lung, mild enlargement of the cardiac silhouette, atherosclerosis, adequate appearing endotracheal tube, left subclavian PICC tip at the cavoatrial junction, likely adequate enteric tube obscured distally. No pneumothorax. Grossly intact bony structures. IMPRESSION: New moderate opacity of the left lung base may indicate pneumonia, atelectasis, and/or effusion. Lines and tubes. 2011 [employer]- All Rights Reserved
[2017-02-23] MEDS: FUROSEMIDE INJ/PF 20 MG/2 ML SDV IV SCH ×2 (10:13→21:12)
[2017-02-23] MEDS: ASPIRIN 81 MG TABLET, CHEWABLE NG SCH (10:15)
[2017-02-23] MEDS: DULOXETINE HCL 30 MG CAPSULE.DR PO SCH (10:15)
[2017-02-23] MEDS: CEFEPIME 1 GM/D5W RTU 1 GM/50 ML RTUPB IV SCH ×2 (10:15→21:12)
[2017-02-23] MEDS: INSULIN DETEMIR 100 UNIT/ML 3 ML PEN SUBCUT SCH ×2 (10:26→18:16)
[2017-02-23] MEDS: ENOXAPARIN SODIUM INJ 40 MG/0.4 ML DISP.SYRIN SUBCUT SCH (10:31)
[2017-02-23] MEDS: NORMAL SALINE 10 ML SDV (SCHEDULED) IV SCH ×2 (10:32→21:09)
[2017-02-23] MEDS: MULTIVIT-STRESS FORMULA/ZINC TABLET NG SCH (10:33)
[2017-02-23] MEDS: MAGNESIUM OXIDE 400 MG TABLET NG SCH (10:34)
[2017-02-23] MEDS: LEVOFLOXACIN 750 MG/D5W RTU 750 MG/150 ML RTUPB IV SCH (10:35)
[2017-02-23] MEDS: TIOTROPIUM BROMIDE DPI 5 CAP/KIT (18 MCG/CAP) IH SCH (10:41)
[2017-02-23] MEDS: FLUTICASONE/SALMETEROL DISKUS 250-50 MCG/DOSE IH SCH ×2 (10:41→21:09)
[2017-02-23] MEDS: MIDAZOLAM 2 MG/2 ML INJ IV PRN (16:16)
--- NOTE | 2017-02-23 20:39 | PROGRESS NOTE E ---
Progress Note NAME: TORREY MARKS : 1950 AGE: 66Y DATE: 02/23/2017 ROOM: 612 SUBJECTIVE: Patient is currently doing fair. Patient is currently intubated. Patient is currently off the Levophed drips. Discussed with the family at the bedside. No other events happened. Discussed with consultants; cardiology and pulmonary. OBJECTIVE: VITAL SIGNS: Currently stable. GENERAL: The patient is currently intubated. HEAD AND NECK: Normocephalic. PERRLA. LUNG: Decreased breath sounds bilaterally. HEART: S1 and S2 are present. ABDOMEN: Soft. Bowel sounds present. EXTREMITIES: No edema. NEUROLOGIC: Patient is currently intubated. ASSESSMENT: 1. ACUTE RESPIRATORY FAILURE, STATUS POST CURRENTLY INTUBATED. 2. CORONARY ARTERY DISEASE. 3. PNEUMONIA. 4. COPD. 5. HYPERTENSION WITH HYPERLIPIDEMIA. PLAN: At this point continue current ventilation management. Continue IV antibiotics. Review all medications. Review old charts. Unfortunately the computer [employer] does not work, so reviewed the papers, all the labs is currently all stable. Discussed with the consults. Discussed with the family. TIME SPENT: More than 35 minutes spent examining the patient. DICTATING PHYSICIAN: LANDON PASTOR M.D. [id number] PHY#: [id number] ID: [id number] JOB#: [id number] ACCT: [id number] cc: >
[2017-02-23] MEDS: ZOLPIDEM TARTRATE 5 MG TABLET NG SCH (21:09)
[2017-02-23] MEDS: ATORVASTATIN CALCIUM 40 MG TABLET NG SCH (21:12)
[2017-02-24] MEDS: PROPOFOL 100 ML IV PRN ×6 (00:08→22:43)
[2017-02-24] MEDS: INSULIN LISPRO 100 UNIT/ML 3 ML VIAL SUBCUT PRN ×4 (00:08→17:32)
[2017-02-24] MEDS: METHYLPREDNISOLONE INJ 125 MG/2 ML SDV IV SCH ×5 (00:08→23:59)
[2017-02-24] MEDS: LORAZEPAM 24 MG/ D5W 240 ML IV PRN ×4 (00:11→22:42)
[2017-02-24] MEDS: IPRATROPIUM/ALBUTEROL 0.5-2.5 MG/3 ML AMPUL NEB SCH ×5 (04:20→20:48)
[2017-02-24] MEDS ORDERED: METHYLPREDNISOLONE INJ 40 MG/1 ML SDV ONE (04:32)
[2017-02-24] MEDS: NORMAL SALINE 10 ML SDV (AFTER EACH USE) IV PRN (05:44)
[2017-02-24] MEDS: GABAPENTIN 300 MG CAPSULE NG SCH ×3 (05:44→22:28)
[2017-02-24 05:57] LABS: ARTERIAL BLOOD BASE EXCESS 9.7 mmol/L; ARTERIAL BLOOD H2CO3 1.36 mmol/L (1.05-1.35); ARTERIAL BLOOD HCO3 34.1 mmol/L (20-26); ARTERIAL BLOOD O2 SATURATION 95.1 % (94-98); ARTERIAL BLOOD PCO2 45.3 mmHg (35-45); ARTERIAL BLOOD PO2 69.4 mmHg (80-100); ARTERIAL BLOOD TOTAL CO2 35.5 mmol/L (21-25)
[2017-02-24 05:58] LABS: ARTERIAL BLOOD FIO2 30%
[2017-02-24 06:13] LABS: HEMATOCRIT 34.4 % (36.0-47.0); HEMOGLOBIN 11.3 g/dL (12.0-15.5); MEAN CORPUSCULAR HEMOGLOBIN 28.7 pg (27.0-33.4); MEAN CORPUSCULAR HGB CONC 32.8 g/dL (32.0-36.0); MEAN CORPUSCULAR VOLUME 88 fl (80-97); PLATELET COUNT 330 10^3/uL (150-450); RED BLOOD COUNT 3.93 10^6/uL (3.72-5.28); RED CELL DISTRIBUTION WIDTH 20.6 % (11.5-14.0); WHITE BLOOD COUNT 8.4 10^3/uL (4.0-10.5)
[2017-02-24 06:15] LABS: ANION GAP 10 (5-19); BLOOD UREA NITROGEN 31 mg/dL (7-20); CARBON DIOXIDE 34 mmol/L (22-30); CHLORIDE 93 mmol/L (98-107); GLUCOSE 266 mg/dL (75-110); MAGNESIUM 2.3 mg/dL (1.6-2.3); POTASSIUM 3.9 mmol/L (3.6-5.0); SODIUM 137.4 mmol/L (137-145)
[2017-02-24 06:44] LABS: ABSOLUTE LYMPHOCYTES# (MANUAL) 0.3 10^3/uL (0.5-4.7); ABSOLUTE MONOCYTES # (MANUAL) 0.5 10^3/uL (0.1-1.4); ABSOLUTE NEUTROPHILS# (MANUAL) 7.6 10^3/uL (1.7-8.2); BAND NEUTROPHILS % (MANUAL) 3 % (3-5); BASOPHILS % (MANUAL) 0 % (0-2); EOSINOPHILS % (MANUAL) 0 % (0-6); LYMPHOCYTES % (MANUAL) 4 % (13-45); MONOCYTES % (MANUAL) 6 % (3-13); SEGMENTED NEUTROPHILS % (MAN) 87 % (42-78); TOTAL CELLS COUNTED 100
[2017-02-24 06:47] LABS: ANISOCYTOSIS 1+; HYPOCHROMASIA SLIGHT; OVALOCYTES SLIGHT; PLATELET COMMENT ADEQUATE; POIKILOCYTOSIS SLIGHT
[2017-02-24] MEDS: BUDESONIDE NEB 0.5 MG/2 ML AMPUL NEB SCH ×2 (08:19→20:48)
--- NOTE | 2017-02-24 09:16 | RADIOLOGY REPORT (SQ) ---
EXAM DESCRIPTION: CHEST SINGLE VIEW COMPLETED DATE/TIME: 02/24/2017 7:03 am REASON FOR STUDY: resp failure COMPARISON: AP chest 02/23/2017, 02/13/2017, 02/08/2017 EXAM PARAMETERS: NUMBER OF VIEWS: One view. TECHNIQUE: Single frontal radiographic view of the chest acquired. RADIATION DOSE: NA LIMITATIONS: None. FINDINGS: LUNGS AND PLEURA: Minimal left retrocardiac airspace disease, atelectasis versus pneumonia . Lungs are otherwise well inflated and clear. No pleural effusions. No pneumothorax. MEDIASTINUM AND HILAR STRUCTURES: No masses. Contour normal. HEART AND VASCULAR STRUCTURES: Stable cardiomegaly BONES: No acute findings. HARDWARE: Endotracheal tube tip 3 to 4 cm above the jessica. Nasogastric tube tip and side port in th e stomach. Left-sided PICC line tip superior vena cava OTHER: No other significant finding. IMPRESSION: Minimal left retrocardiac airspace disease Tubes and lines in good positioning TECHNICAL DOCUMENTATION: JOB ID: [id number] [employer]- All Rights Reserved
[2017-02-24] MEDS: ASPIRIN 81 MG TABLET, CHEWABLE NG SCH (09:51)
[2017-02-24] MEDS: MULTIVIT-STRESS FORMULA/ZINC TABLET NG SCH (09:51)
[2017-02-24] MEDS: MAGNESIUM OXIDE 400 MG TABLET NG SCH (09:51)
[2017-02-24] MEDS: NORMAL SALINE 10 ML SDV (SCHEDULED) IV SCH ×2 (09:52→22:30)
[2017-02-24] MEDS: FUROSEMIDE INJ/PF 20 MG/2 ML SDV IV SCH ×2 (09:53→22:28)
[2017-02-24] MEDS: CEFEPIME 1 GM/D5W RTU 1 GM/50 ML RTUPB IV SCH ×2 (09:54→22:27)
[2017-02-24] MEDS: ENOXAPARIN SODIUM INJ 40 MG/0.4 ML DISP.SYRIN SUBCUT SCH (09:59)
[2017-02-24] MEDS: INSULIN DETEMIR 100 UNIT/ML 3 ML PEN SUBCUT SCH ×2 (10:02→17:34)
[2017-02-24] MEDS: LEVOFLOXACIN 750 MG/D5W RTU 750 MG/150 ML RTUPB IV SCH (10:03)
[2017-02-24] MEDS: TIOTROPIUM BROMIDE DPI 5 CAP/KIT (18 MCG/CAP) IH SCH (10:05)
[2017-02-24] MEDS: DULOXETINE HCL 30 MG CAPSULE.DR PO SCH (10:05)
[2017-02-24] MEDS: FLUTICASONE/SALMETEROL DISKUS 250-50 MCG/DOSE IH SCH ×2 (10:05→22:30)
--- NOTE | 2017-02-24 18:03 | PDOC CONSULTATION ---
Consultation Consult Date: 02/22/17 Attending physician:: LANDON PASTOR Consult reason:: acute/chronic hypoxic & hypercapnic resp failure History of Present Illness Admission Date/PCP: 02/08/17 22:01 TANISHA POLLARD MD History of Present Illness: TORREY MARKS is a 66 year old female, She is well-known to [facility] for chronic respiratory failure she was presented to the emergency room approximately 14 days ago for hypercapnic respiratory failure and a right lower lobe pneumonia. Is reported that she was on BiPAP and was doing well up until this morning when she was found unresponsive she subsequently was brought to the ICU and intubated. At the time of her intubation her primary her initial ABG demonstrated pH is 6.87 with a PCO2 of greater than 100 Past Medical History Cardiac Medical History: Reports: Congestive Heart Failure, Coronary Artery Disease, Hyperlipidema, Hypertension, Peripheral Vascular Disease Denies: Heart Murmur Pulmonary Medical History: Reports: Asthma, Bronchitis, Chronic Obstructive Pulmonary Disease (COPD), Respiratory Failure, Sleep Apnea Denies: Tuberculosis Neurological Medical History: Reports: Migraine Denies: Seizures Endocrine Medical History: Reports: Diabetes Mellitus Type 1, Diabetes Mellitus Type 2 Renal/ Medical History: Malignancy Medical History: Reports: None GI Medical History: Denies: Cirrhosis, Diverticulitis, Ulcerative Colitis Musculoskeltal Medical History: Reports: Arthritis, Fibromyalgia Skin Medical History: Denies: Psoriasis Psychiatric Medical History: Reports: Depression Denies: Attention Deficit Hyperactivity Disorder Traumatic Medical History: Denies: Traumatic Brain Injury Hematology: Denies: Sickle Cell Disease Infectious Medical History: Reports: Clostridium Difficile, Methicillin- Resistant Staph Aureus Past Surgical History Past Surgical History: Reports: Amputation, Appendectomy, Cardiac Catheterization, Cholecystectomy, Coronary Stent, Hysterectomy, Orthopedic Surgery - right shoulder, Tubal Ligation, Vascular Surgery Social History Information Source: [facility] Records Smoking Status: Former Smoker Cigarettes Packs Per Day: 1 Number of Years Smokin Passive smoke exposure as: Both Frequency of Alcohol Use: None Hx Recreational Drug Use: No Drugs: None Hx Prescription Drug Abuse: No Do you have pets?: No Have you had any respiratory illnesses as a child?: No Have you had any recent respiratory illnesses?: Yes Have you travelled outside of [place] in the past 12 months?: No Family History Family History: CAD, Hypertension, Other - Alzheimer's, renal failure Parental Family History Reviewed: Yes Children Family History Reviewed: Yes Sibling(s) Family History Reviewed.: Yes Medication/Allergy Home Medications: Albuterol Sulfate [Proair HFA] 2 puff IH Q4 PRN 01/07/17 Aspirin [Aspirin 81 mg Chewable Tablet] 81 mg PO DAILY 01/07/17 Duloxetine HCl [Cymbalta] 60 mg PO DAILY 01/07/17 Insulin Detemir [Levemir Flextouch] 50 unit SQ BID 01/07/17 Magnesium Oxide 400 mg PO DAILY 01/07/17 Metformin HCl 500 mg PO WSUPPER 01/07/17 Simethicone [Gas Relief 80] 80 mg PO MEALSHS PRN 01/07/17 Spironolactone [Aldactone 25 mg Tablet] 12.5 mg PO DAILY 01/07/17 Cyanocobalamin (Vitamin B-12) [Vitamin B-12 Inj 1000 Mcg/1 ml Vial] 1,000 mcg SUBCUT Q7D #1000 vial 01/15/17 Tramadol HCl [Ultram] 50 mg PO Q6HP PRN #120 tablet 01/15/17 Tiotropium [place] [Spiriva] 2 puff IH DAILY 02/08/17 Allergies/Adverse Reactions: codeine [Codeine] Adverse Reaction (Unknown, Verified 08/23/16 08:03) Review of Systems ROS unobtainable: Due to endotracheal tube Physical Exam Vital Signs: Temp Pulse Resp BP Pulse Ox 98.1 F 70 20 108/55 L 99 02/22/17 08:23 02/22/17 08:55 02/22/17 08:55 02/22/17 08:23 02/22/17 08:55 Intake & Output 02/21/17 02/22/17 02/23/17 06:59 06:59 06:59 Intake Total 1054 1275 Output Total 975 650 Balance 79 625 Weight 114.6 kg 119.2 kg General appearance: PRESENT: no acute distress, disheveled, morbidly obese. ABSENT: cooperative, mild distress, obese, severe distress, thin Head exam: PRESENT: atraumatic, normocephalic Eye exam: PRESENT: conjunctiva pale. ABSENT: conjunctival injection, conjunctiva pink, nystagmus, periorbital swelling, scleral icterus Mouth exam: PRESENT: dry mucosa, neck supple, tongue midline, other - ET tube in place. ABSENT: laceration, moist Neck exam: ABSENT: carotid bruit, JVD, lymphadenopathy, thyromegaly, tracheal deviation, tracheostomy Respiratory exam: PRESENT: crackles, decreased breath sounds, prolonged expiratory phas, rhonchi, symmetrical, unlabored, wheezes. ABSENT: accessory muscle use, chest wall tenderness, clear to auscultation rolf, retraction, stridor, tachypnea Cardiovascular exam: PRESENT: RRR, +S1, +S2 Pulses: PRESENT: normal radial pulses GI/Abdominal exam: PRESENT: diminished bowel sounds, soft. ABSENT: mass Gentrourinary exam: PRESENT: indwelling catheter Extremities exam: ABSENT: clubbing, full ROM, joint swelling Musculoskeletal exam: ABSENT: deformity, dislocation, full ROM Neurological exam: ABSENT: alert, altered, awake Skin exam: PRESENT: dry, warm Results Laboratory Results: 02/22/17 07:15 02/22/17 06:40 02/21/17 02/21/17 02/22/17 15:13 15:13 06:30 WBC 11.2 H RBC 3.94 Hgb 11.1 L Hct 35.2 L MCV 89 MCH 28.3 MCHC 31.7 L RDW 20.4 H Plt Count 300 Seg Neutrophils % 85.9 H Lymphocytes % 5.5 L Monocytes % 7.9 Eosinophils % 0.3 Basophils % 0.4 Absolute Neutrophils 9.6 H Absolute Lymphocytes 0.6 Absolute Monocytes 0.9 Absolute Eosinophils 0.0 Absolute Basophils 0.0 Carbonic Acid 5.13 H HCO3/H2CO3 Ratio 6:1 ABG pH 6.88 L* ABG pCO2 170.5 H* ABG pO2 367.8 H ABG HCO3 31.3 H ABG O2 Saturation 99.4 H ABG Base Excess -6.3 FiO2 100% Sodium 143.2 Potassium 4.4 Chloride 98 Carbon Dioxide 34 H Anion Gap 11 BUN 18 Creatinine 0.66 Est GFR ( Amer) > 60 Est GFR (Non-Af Amer) > 60 Glucose 198 H Calcium 9.4 Phosphorus Magnesium Total Bilirubin 0.3 AST 12 L ALT 18 Alkaline Phosphatase 67 Total Protein 6.2 L Albumin 3.7 02/22/17 02/22/17 02/22/17 06:40 06:40 07:15 WBC Cancelled 10.2 RBC Cancelled 4.11 Hgb Cancelled 11.6 L Hct Cancelled 37.5 MCV Cancelled 91 MCH Cancelled 28.1 MCHC Cancelled 30.8 L RDW Cancelled 20.7 H Plt Count Cancelled 363 Seg Neutrophils % Cancelled 91.5 H Lymphocytes % Cancelled 5.8 L Monocytes % Cancelled 2.4 L Eosinophils % Cancelled 0.0 Basophils % Cancelled 0.3 Absolute Neutrophils Cancelled 9.3 H Absolute Lymphocytes Cancelled 0.6 Absolute Monocytes Cancelled 0.2 Absolute Eosinophils Cancelled 0.0 Absolute Basophils Cancelled 0.0 Carbonic Acid HCO3/H2CO3 Ratio ABG pH ABG pCO2 ABG pO2 ABG HCO3 ABG O2 Saturation ABG Base Excess FiO2 Sodium 140.5 Potassium 5.7 H D Chloride 96 L Carbon Dioxide 28 Anion Gap 17 BUN 24 H Creatinine 0.78 Est GFR ( Amer) > 60 Est GFR (Non-Af Amer) > 60 Glucose 384 H Calcium 9.5 Phosphorus 8.2 H Magnesium 2.3 Total Bilirubin 0.2 AST 21 ALT 17 Alkaline Phosphatase 71 Total Protein 6.8 Albumin 4.3 02/22/17 02/22/17 07:30 10:00 WBC RBC Hgb Hct MCV MCH MCHC RDW Plt Count Seg Neutrophils % Lymphocytes % Monocytes % Eosinophils % Basophils % Absolute Neutrophils Absolute Lymphocytes Absolute Monocytes Absolute Eosinophils Absolute Basophils Carbonic Acid 2.53 H 1.38 H HCO3/H2CO3 Ratio 11:1 19:1 ABG pH 7.17 L* 7.39 ABG pCO2 83.9 H* 45.8 H ABG pO2 77.9 L 83.1 ABG HCO3 30.1 H 27.0 H ABG O2 Saturation 91.3 L 96.0 ABG Base Excess -0.4 1.6 FiO2 40% 40% Sodium Potassium Chloride Carbon Dioxide Anion Gap BUN Creatinine Est GFR ( Amer) Est GFR (Non-Af Amer) Glucose Calcium Phosphorus Magnesium Total Bilirubin AST ALT Alkaline Phosphatase Total Protein Albumin 02/09/17 02/09/17 02/22/17 00:37 00:37 06:40 Creatine Kinase 109 37 CK-MB (CK-2) Troponin I 0.748 02/22/17 06:40 Creatine Kinase CK-MB (CK-2) 1.52 Troponin I 0.031 Impressions: Guidance Fluoroscopy 02/13/17 00:00 IMPRESSION: SUCCESSFUL PLACEMENT OF A 5 FR DUAL LUMEN 46 CM PICC IN THE LEFT BASILIC VEIN. Interventional Vascular Procedure 02/13/17 00:00 IMPRESSION: SUCCESSFUL PLACEMENT OF A 5 FR DUAL LUMEN 46 CM PICC IN THE LEFT BASILIC VEIN. PICC Line Insertion 02/13/17 00:00 IMPRESSION: SUCCESSFUL PLACEMENT OF A 5 FR DUAL LUMEN 46 CM PICC IN THE LEFT BASILIC VEIN. Chest X-Ray 02/22/17 00:00 IMPRESSION: SATISFACTORY POSITION OF LINE/TUBES. MILD INTERSTITIAL EDEMA. Assessment & Plan - Diagnosis (1) Acute hypercapnic respiratory failure Is this a current diagnosis for this admission?: Yes Plan: Ventilate as necessary (2) Chronic obstructive pulmonary disease with (acute) exacerbation Is this a current diagnosis for this admission?: Yes Plan: Generic Name Dose Route Start Last Admin Trade Name Freq PRN Reason Stop Dose Admin Albuterol/Ipratropium 3 ml 02/09/17 00:00 02/24/17 16:10 Duoneb 3 Ml Ampul NEB 03/11/17 00:00 3 ml RTQ4 JONES Fluticasone/Salmeterol 1 inh 02/09/17 10:00 02/24/17 10:05 Advair 250-50 Diskus 14 Dose/Diskus 03/11/17 09:59 Not Given Q12 JONES Patient Own Medication 2 each 02/08/17 23:45 Melatonin/Pyridoxine Hcl (B6) [Melatonin 3 Mg Tablet] PO 03/10/17 23:44 .[facility] Methylprednisolone Sodium Succinate 60 mg 02/22/17 12:00 Solu-Medrol Inj/Pf 125 Mg/2 Ml Sdv IV 03/24/17 11:59 Q6 [facility] Tiotropium [place] 1 cap 02/09/17 10:00 02/21/17 09:38 Spiriva [place] 5 Cap/Kit (18 Mcg/Cap) IH 03/11/17 09:59 1 cap DAILY JONES Albuterol/Ipratropium 3 ml 02/09/17 00:00 02/22/17 08:51 Duoneb 3 Ml Ampul NEB 03/11/17 00:00 3 ml RTQ4 JONES Fluticasone/Salmeterol 1 inh 02/09/17 10:00 02/21/17 21:33 Advair 250-50 Diskus 14 Dose/Diskus 03/11/17 09:59 1 inh Q12 JONES Cefepime HCl 1 gm in 50 mls @ 100 mls/hr 02/22/17 10:00 Maxipime Rtu 1 Gm/D5w 50 Ml Premix Bag IV 03/01/17 09:59 Q12 [facility] Budesonide 0.5 mg 02/22/17 20:00 02/24/17 08:19 Pulmicort Neb 0.5 Mg/2 Ml Ampul NEB 03/24/17 19:59 0.5 mg RTQ12 [facility] Methylprednisolone Sodium Succinate 60 mg 02/22/17 12:00 02/24/17 17:35 Solu-Medrol Inj/Pf 125 Mg/2 Ml Sdv IV 03/24/17 11:59 60 mg Q6 [facility] Tiotropium [place] 1 cap 02/09/17 10:00 02/24/17 10:05 Spiriva [place] 5 Cap/Kit (18 Mcg/Cap) IH 03/11/17 09:59 Not Given DAILY [facility] 02/09/17 02:14 Urine Culture - Final Clean Catch Midstream Escherichia Coli Staph Coagulase Negative 02/08/17 19:12 Blood Culture - Final Blood Peptostreptococcus Species (3) Acute and chronic respiratory failure with hypercapnia Is this a current diagnosis for this admission?: Yes (4) Acute combined systolic (congestive) and diastolic (congestive) heart failure Is this a current diagnosis for this admission?: Yes - Time Total Critical Time (Minutes): 55
--- NOTE | 2017-02-24 18:07 | PDOC PROGRESS REPORT ---
Subjective Progress Note for:: 02/23/17 Subjective:: Intubated and sedated Reason For Visit: PNEUMONIA,ACUTE HYPERCAPNIC RESPIRATORY Physical Exam Vital Signs: Temp Pulse Resp BP Pulse Ox 98.1 F 82 20 109/60 96 02/23/17 07:45 02/23/17 07:48 02/23/17 07:48 02/23/17 07:45 02/23/17 07:48 Intake & Output 02/22/17 02/23/17 02/24/17 06:59 06:59 06:59 Intake Total 1275 1687 Output Total 650 1840 Balance 625 -153 Weight 119.2 kg 116.7 kg General appearance: PRESENT: no acute distress, disheveled, morbidly obese. ABSENT: cooperative, mild distress, obese, severe distress, thin Head exam: PRESENT: atraumatic, normocephalic Eye exam: PRESENT: conjunctiva pale. ABSENT: conjunctival injection, conjunctiva pink, EOMI, nystagmus, periorbital swelling, scleral icterus Mouth exam: PRESENT: dry mucosa, neck supple, tongue midline, other - ET tube in place. ABSENT: laceration, moist Neck exam: ABSENT: carotid bruit, JVD, lymphadenopathy, thyromegaly, tracheal deviation, tracheostomy Respiratory exam: PRESENT: decreased breath sounds, prolonged expiratory phas, rales, rhonchi, symmetrical, unlabored, wheezes. ABSENT: accessory muscle use, chest wall tenderness, clear to auscultation rolf, crackles, retraction, stridor , tachypnea Cardiovascular exam: PRESENT: RRR, +S1, +S2 Pulses: PRESENT: normal radial pulses GI/Abdominal exam: PRESENT: diminished bowel sounds, soft. ABSENT: distended, guarding, mass, normal bowel sounds, organolmegaly, rebound, tenderness Gentrourinary exam: PRESENT: indwelling catheter Extremities exam: ABSENT: clubbing, joint swelling Musculoskeletal exam: ABSENT: ambulatory, deformity, dislocation Neurological exam: ABSENT: alert, awake Skin exam: PRESENT: dry, warm Results Laboratory Results: 02/23/17 05:15 02/23/17 05:15 02/22/17 02/22/17 02/22/17 10:00 16:30 18:00 WBC RBC Hgb Hct MCV MCH MCHC RDW Plt Count Seg Neutrophils % Lymphocytes % Monocytes % Eosinophils % Basophils % Absolute Neutrophils Absolute Lymphocytes Absolute Monocytes Absolute Eosinophils Absolute Basophils Carbonic Acid 1.38 H 1.36 H HCO3/H2CO3 Ratio 19:1 24:1 ABG pH 7.39 7.49 H ABG pCO2 45.8 H 45.2 H ABG pO2 83.1 75.0 L ABG HCO3 27.0 H 33.8 H ABG O2 Saturation 96.0 95.9 ABG Base Excess 1.6 9.4 FiO2 40% 40% Sodium 135.0 L Potassium 3.8 D Chloride 94 L Carbon Dioxide 32 H Anion Gap 9 BUN 27 H Creatinine 0.65 Est GFR ( Amer) > 60 Est GFR (Non-Af Amer) > 60 Glucose 306 H Calcium 8.8 Phosphorus Magnesium Total Bilirubin 0.1 L AST 15 ALT 30 Alkaline Phosphatase 67 Total Protein 5.9 L Albumin 3.6 Urine Color Urine Appearance Urine pH Ur Specific Crowley Urine Protein Urine Glucose (UA) Urine Ketones Urine Blood Urine Nitrite Ur Leukocyte Esterase Urine WBC (Auto) Urine RBC (Auto) 02/23/17 02/23/17 02/23/17 05:15 05:15 05:15 WBC 9.4 RBC 3.61 L Hgb 10.7 L Hct 31.7 L MCV 88 MCH 29.7 MCHC 33.8 RDW 20.5 H Plt Count 300 Seg Neutrophils % Not Reportable Lymphocytes % Not Reportable Monocytes % Not Reportable Eosinophils % Not Reportable Basophils % Not Reportable Absolute Neutrophils Not Reportable Absolute Lymphocytes Not Reportable Absolute Monocytes Not Reportable Absolute Eosinophils Not Reportable Absolute Basophils Not Reportable Carbonic Acid 1.23 HCO3/H2CO3 Ratio 25:1 ABG pH 7.51 H ABG pCO2 41.0 ABG pO2 72.7 L ABG HCO3 31.8 H ABG O2 Saturation 95.8 ABG Base Excess 8.0 FiO2 30% Sodium 134.5 L Potassium 3.7 Chloride 93 L Carbon Dioxide 32 H Anion Gap 10 BUN 29 H Creatinine 0.71 Est GFR ( Amer) > 60 Est GFR (Non-Af Amer) > 60 Glucose 251 H Calcium 8.5 Phosphorus 3.6 D Magnesium 2.0 Total Bilirubin AST ALT Alkaline Phosphatase Total Protein Albumin Urine Color Urine Appearance Urine pH Ur Specific Crowley Urine Protein Urine Glucose (UA) Urine Ketones Urine Blood Urine Nitrite Ur Leukocyte Esterase Urine WBC (Auto) Urine RBC (Auto) 02/23/17 05:15 WBC RBC Hgb Hct MCV MCH MCHC RDW Plt Count Seg Neutrophils % Lymphocytes % Monocytes % Eosinophils % Basophils % Absolute Neutrophils Absolute Lymphocytes Absolute Monocytes Absolute Eosinophils Absolute Basophils Carbonic Acid HCO3/H2CO3 Ratio ABG pH ABG pCO2 ABG pO2 ABG HCO3 ABG O2 Saturation ABG Base Excess FiO2 Sodium Potassium Chloride Carbon Dioxide Anion Gap BUN Creatinine Est GFR ( Amer) Est GFR (Non-Af Amer) Glucose Calcium Phosphorus Magnesium Total Bilirubin AST ALT Alkaline Phosphatase Total Protein Albumin Urine Color YELLOW Urine Appearance SLIGHTLY-CLOUDY Urine pH 5.0 Ur Specific Crowley 1.018 Urine Protein NEGATIVE Urine Glucose (UA) NEGATIVE Urine Ketones NEGATIVE Urine Blood NEGATIVE Urine Nitrite NEGATIVE Ur Leukocyte Esterase NEGATIVE Urine WBC (Auto) 2 Urine RBC (Auto) 2 02/09/17 02/09/17 02/22/17 00:37 00:37 06:40 Creatine Kinase 109 37 CK-MB (CK-2) Troponin I 0.748 02/22/17 02/22/17 02/22/17 06:40 13:05 13:05 Creatine Kinase 36 CK-MB (CK-2) 1.52 1.63 Troponin I 0.031 0.060 02/22/17 02/22/17 18:00 18:00 Creatine Kinase 30 CK-MB (CK-2) 1.41 Troponin I 0.047 Impressions: Guidance Fluoroscopy 02/13/17 00:00 IMPRESSION: SUCCESSFUL PLACEMENT OF A 5 FR DUAL LUMEN 46 CM PICC IN THE LEFT BASILIC VEIN. Interventional Vascular Procedure 02/13/17 00:00 IMPRESSION: SUCCESSFUL PLACEMENT OF A 5 FR DUAL LUMEN 46 CM PICC IN THE LEFT BASILIC VEIN. PICC Line Insertion 02/13/17 00:00 IMPRESSION: SUCCESSFUL PLACEMENT OF A 5 FR DUAL LUMEN 46 CM PICC IN THE LEFT BASILIC VEIN. Chest X-Ray 02/23/17 06:00 IMPRESSION: New moderate opacity of the left lung base may indicate pneumonia, atelectasis, and/or effusion. Lines and tubes. 2010 [employer]- All Rights Reserved Assessment & Plan - Diagnosis (1) Acute hypercapnic respiratory failure Is this a current diagnosis for this admission?: Yes Plan: Improving (2) COPD exacerbation Is this a current diagnosis for this admission?: Yes Plan: Continue current bronchodilator therapy primarily using nebulized therapy holding home medicines until extubated (3) Right lower lobe pneumonia Qualifiers: Pneumonia type: due to unspecified organism Qualified Code(s): J18.1 - Lobar pneumonia, unspecified organism Is this a current diagnosis for this admission?: Yes Plan: Labs- All tests 24 hr 11/25/16 11/26/16 11/27/16 05:29 04:48 06:07 WBC 11.5 H 12.9 H 13.7 H Seg Neuts % (Manual) Band Neutrophils % 11/28/16 05:00 WBC 15.8 H Seg Neuts % (Manual) 87 H Band Neutrophils % 1 L Generic Name Dose Route Start Last Admin Trade Name Freq PRN Reason Stop Dose Admin Albuterol/Ipratropium 3 ml 02/09/17 00:00 02/24/17 16:10 Duoneb 3 Ml Ampul NEB 03/11/17 00:00 3 ml RTQ4 JONES Methylprednisolone Sodium Succinate 60 mg 02/22/17 12:00 Solu-Medrol Inj/Pf 125 Mg/2 Ml Sdv IV 03/24/17 11:59 Q6 JONES Budesonide 0.5 mg 02/22/17 20:00 02/24/17 08:19 Pulmicort Neb 0.5 Mg/2 Ml Ampul NEB 03/24/17 19:59 0.5 mg RTQ12 JONES Methylprednisolone Sodium Succinate 60 mg 02/22/17 12:00 02/24/17 17:35 Solu-Medrol Inj/Pf 125 Mg/2 Ml Sdv IV 03/24/17 11:59 60 mg Q6 JONES (4) Acute combined systolic (congestive) and diastolic (congestive) heart failure Is this a current diagnosis for this admission?: Yes - Time Total Critical Time (Minutes): 40
--- NOTE | 2017-02-24 18:09 | PDOC PROGRESS REPORT ---
Subjective Progress Note for:: 02/24/17 Subjective:: Intubated and sedated Reason For Visit: PNEUMONIA,ACUTE HYPERCAPNIC RESPIRATORY Physical Exam Vital Signs: Temp Pulse Resp BP Pulse Ox 97.7 F 91 20 121/70 93 02/24/17 16:00 02/24/17 16:10 02/24/17 16:10 02/24/17 16:00 02/24/17 16:10 Intake & Output 02/23/17 02/24/17 02/25/17 06:59 06:59 06:59 Intake Total 1687 1668 Output Total 1840 8182 1450 Balance -153 -947 -1450 Weight 116.7 kg 115.4 kg 115.4 kg General appearance: PRESENT: no acute distress, disheveled, morbidly obese. ABSENT: cooperative, mild distress, obese, severe distress Head exam: PRESENT: atraumatic, normocephalic Eye exam: PRESENT: conjunctiva pale. ABSENT: conjunctival injection, conjunctiva pink, nystagmus, periorbital swelling, scleral icterus Mouth exam: PRESENT: dry mucosa, neck supple, tongue midline. ABSENT: laceration, moist Neck exam: ABSENT: carotid bruit, JVD, lymphadenopathy, thyromegaly, tracheal deviation, tracheostomy Respiratory exam: PRESENT: decreased breath sounds, prolonged expiratory phas, rales, rhonchi, symmetrical, unlabored, wheezes. ABSENT: accessory muscle use, chest wall tenderness, clear to auscultation rolf, crackles, retraction, stridor , tachypnea Cardiovascular exam: PRESENT: RRR, +S1, +S2 Pulses: PRESENT: normal radial pulses GI/Abdominal exam: PRESENT: diminished bowel sounds, soft Gentrourinary exam: PRESENT: indwelling catheter Extremities exam: ABSENT: clubbing, joint swelling Musculoskeletal exam: ABSENT: ambulatory, deformity, dislocation Neurological exam: ABSENT: alert, awake Skin exam: PRESENT: dry, warm Results Laboratory Results: 02/24/17 05:35 02/24/17 05:35 02/24/17 02/24/17 02/24/17 05:35 05:35 05:35 WBC 8.4 RBC 3.93 Hgb 11.3 L Hct 34.4 L MCV 88 MCH 28.7 MCHC 32.8 RDW 20.6 H Plt Count 330 Seg Neutrophils % Not Reportable Lymphocytes % Not Reportable Monocytes % Not Reportable Eosinophils % Not Reportable Basophils % Not Reportable Absolute Neutrophils Not Reportable Absolute Lymphocytes Not Reportable Absolute Monocytes Not Reportable Absolute Eosinophils Not Reportable Absolute Basophils Not Reportable Carbonic Acid 1.36 H HCO3/H2CO3 Ratio 25:1 ABG pH 7.50 H ABG pCO2 45.3 H ABG pO2 69.4 L ABG HCO3 34.1 H ABG O2 Saturation 95.1 ABG Base Excess 9.7 FiO2 30% Sodium 137.4 Potassium 3.9 Chloride 93 L Carbon Dioxide 34 H Anion Gap 10 BUN 31 H Creatinine 0.83 Est GFR ( Amer) > 60 Est GFR (Non-Af Amer) > 60 Glucose 266 H Calcium 9.0 Magnesium 2.3 02/09/17 02/09/17 02/22/17 00:37 00:37 06:40 Creatine Kinase 109 37 CK-MB (CK-2) Troponin I 0.748 02/22/17 02/22/17 02/22/17 06:40 13:05 13:05 Creatine Kinase 36 CK-MB (CK-2) 1.52 1.63 Troponin I 0.031 0.060 02/22/17 02/22/17 18:00 18:00 Creatine Kinase 30 CK-MB (CK-2) 1.41 Troponin I 0.047 Impressions: Guidance Fluoroscopy 02/13/17 00:00 IMPRESSION: SUCCESSFUL PLACEMENT OF A 5 FR DUAL LUMEN 46 CM PICC IN THE LEFT BASILIC VEIN. Interventional Vascular Procedure 02/13/17 00:00 IMPRESSION: SUCCESSFUL PLACEMENT OF A 5 FR DUAL LUMEN 46 CM PICC IN THE LEFT BASILIC VEIN. PICC Line Insertion 02/13/17 00:00 IMPRESSION: SUCCESSFUL PLACEMENT OF A 5 FR DUAL LUMEN 46 CM PICC IN THE LEFT BASILIC VEIN. Chest X-Ray 02/24/17 06:00 IMPRESSION: Minimal left retrocardiac airspace disease Tubes and lines in good positioning Assessment & Plan - Diagnosis (1) Acute hypercapnic respiratory failure Is this a current diagnosis for this admission?: Yes Plan: Improving (2) COPD exacerbation Is this a current diagnosis for this admission?: Yes Plan: Improving (3) Right lower lobe pneumonia Qualifiers: Pneumonia type: due to unspecified organism Qualified Code(s): J18.1 - Lobar pneumonia, unspecified organism Is this a current diagnosis for this admission?: Yes (4) Acute combined systolic (congestive) and diastolic (congestive) heart failure Is this a current diagnosis for this admission?: Yes - Time Total Critical Time (Minutes): 40
--- NOTE | 2017-02-24 22:10 | PDOC PROGRESS REPORT ---
Subjective Progress Note for:: 02/24/17 Subjective:: Patient is sedated and intubated Reason For Visit: PNEUMONIA,ACUTE HYPERCAPNIC RESPIRATORY Physical Exam Vital Signs: Temp Pulse Resp BP Pulse Ox 97.7 F 80 20 134/73 H 95 02/24/17 18:00 02/24/17 20:50 02/24/17 20:50 02/24/17 19:44 02/24/17 20:50 Intake & Output 02/23/17 02/24/17 02/25/17 06:59 06:59 06:59 Intake Total 1687 1668 651 Output Total 1847 8792 9730 Balance -153 -120 -1207 Weight 116.7 kg 115.4 kg 115.4 kg Respiratory exam: PRESENT: clear to auscultation rolf Cardiovascular exam: PRESENT: +S1, +S2 GI/Abdominal exam: PRESENT: soft Neurological exam: PRESENT: alert, CN II-XII grossly intact Results Laboratory Results: 02/24/17 05:35 02/24/17 05:35 02/24/17 02/24/17 02/24/17 05:35 05:35 05:35 WBC 8.4 RBC 3.93 Hgb 11.3 L Hct 34.4 L MCV 88 MCH 28.7 MCHC 32.8 RDW 20.6 H Plt Count 330 Seg Neutrophils % Not Reportable Lymphocytes % Not Reportable Monocytes % Not Reportable Eosinophils % Not Reportable Basophils % Not Reportable Absolute Neutrophils Not Reportable Absolute Lymphocytes Not Reportable Absolute Monocytes Not Reportable Absolute Eosinophils Not Reportable Absolute Basophils Not Reportable Carbonic Acid 1.36 H HCO3/H2CO3 Ratio 25:1 ABG pH 7.50 H ABG pCO2 45.3 H ABG pO2 69.4 L ABG HCO3 34.1 H ABG O2 Saturation 95.1 ABG Base Excess 9.7 FiO2 30% Sodium 137.4 Potassium 3.9 Chloride 93 L Carbon Dioxide 34 H Anion Gap 10 BUN 31 H Creatinine 0.83 Est GFR ( Amer) > 60 Est GFR (Non-Af Amer) > 60 Glucose 266 H Calcium 9.0 Magnesium 2.3 02/09/17 02/09/17 02/22/17 00:37 00:37 06:40 Creatine Kinase 109 37 CK-MB (CK-2) Troponin I 0.748 02/22/17 02/22/1718 06:40 13:05 13:05 Creatine Kinase 36 CK-MB (CK-2) 1.52 1.63 Troponin I 0.031 0.060 02/22/17 02/22/17 18:00 18:00 Creatine Kinase 30 CK-MB (CK-2) 1.41 Troponin I 0.047 Impressions: Guidance Fluoroscopy 02/13/17 00:00 IMPRESSION: SUCCESSFUL PLACEMENT OF A 5 FR DUAL LUMEN 46 CM PICC IN THE LEFT BASILIC VEIN. Interventional Vascular Procedure 02/13/17 00:00 IMPRESSION: SUCCESSFUL PLACEMENT OF A 5 FR DUAL LUMEN 46 CM PICC IN THE LEFT BASILIC VEIN. PICC Line Insertion 02/13/17 00:00 IMPRESSION: SUCCESSFUL PLACEMENT OF A 5 FR DUAL LUMEN 46 CM PICC IN THE LEFT BASILIC VEIN. Chest X-Ray 02/24/17 06:00 IMPRESSION: Minimal left retrocardiac airspace disease Tubes and lines in good positioning Assessment & Plan - Diagnosis (1) Right lower lobe pneumonia Qualifiers: Pneumonia type: due to unspecified organism Qualified Code(s): J18.1 - Lobar pneumonia, unspecified organism Is this a current diagnosis for this admission?: Yes (2) Acute hypercapnic respiratory failure Is this a current diagnosis for this admission?: Yes (3) Chronic obstructive pulmonary disease Qualifiers: COPD type: unspecified COPD Qualified Code(s): J44.9 - Chronic obstructive pulmonary disease, unspecified Is this a current diagnosis for this admission?: Yes (4) Chronic obstructive pulmonary disease with (acute) exacerbation Is this a current diagnosis for this admission?: Yes - Plan Summary Plan Summary: Patient ICU on mechanical ventilation, she decompensated over the weekend she was initially on a noninvasive positive pressure ventilation with BiPAP she decompensated she now requires invasive mechanical ventilation
[2017-02-24] MEDS: ATORVASTATIN CALCIUM 40 MG TABLET NG SCH (22:28)
[2017-02-24] MEDS: ZOLPIDEM TARTRATE 5 MG TABLET NG SCH (22:30)
[2017-02-25] MEDS: IPRATROPIUM/ALBUTEROL 0.5-2.5 MG/3 ML AMPUL NEB SCH ×6 (00:20→20:48)
[2017-02-25] MEDS: PROPOFOL 100 ML IV PRN ×5 (03:04→23:27)
[2017-02-25] MEDS: LORAZEPAM 24 MG/ D5W 240 ML IV PRN (04:39)
[2017-02-25] MEDS: GABAPENTIN 300 MG CAPSULE NG SCH ×3 (05:48→21:55)
[2017-02-25] MEDS ORDERED: METHYLPREDNISOLONE INJ 125 MG/2 ML SDV ONE (06:03)
[2017-02-25] MEDS: METHYLPREDNISOLONE INJ 125 MG/2 ML SDV IV SCH ×4 (06:06→23:27)
[2017-02-25] MEDS: INSULIN LISPRO 100 UNIT/ML 3 ML VIAL SUBCUT PRN ×4 (06:19→23:28)
[2017-02-25 06:48] LABS: ARTERIAL BLOOD BASE EXCESS 10.7 mmol/L; ARTERIAL BLOOD H2CO3 1.33 mmol/L (1.05-1.35); ARTERIAL BLOOD HCO3 34.8 mmol/L (20-26); ARTERIAL BLOOD O2 SATURATION 96.3 % (94-98); ARTERIAL BLOOD PCO2 44.1 mmHg (35-45); ARTERIAL BLOOD PH 7.52 (7.35-7.45); ARTERIAL BLOOD PO2 75.9 mmHg (80-100); ARTERIAL BLOOD TOTAL CO2 36.2 mmol/L (21-25)
--- NOTE | 2017-02-25 06:51 | RADIOLOGY REPORT (SQ) ---
EXAM DESCRIPTION: CHEST SINGLE VIEW CLINICAL HISTORY: acute/chronic resp failure COMPARISON: 02/24/2017 FINDINGS: Single frontal view of the chest. Endotracheal tube with tip 4 cm above the jessica. NG tube with tip below the diaphragm. Left arm PICC. Cardiomegaly. Left retrocardiac opacity again identified. No pneumothorax. No displaced rib fractures identified. Upper abdominal soft tissues are unremarkable. IMPRESSION: 1. Stable appearance of the chest.
[2017-02-25 06:55] LABS: ARTERIAL BLOOD FIO2 30%
[2017-02-25 07:11] LABS: HEMATOCRIT 35.8 % (36.0-47.0); HEMOGLOBIN 11.4 g/dL (12.0-15.5); MEAN CORPUSCULAR HGB CONC 31.8 g/dL (32.0-36.0); MEAN CORPUSCULAR VOLUME 88 fl (80-97); PLATELET COUNT 352 10^3/uL (150-450); RED BLOOD COUNT 4.08 10^6/uL (3.72-5.28); RED CELL DISTRIBUTION WIDTH 20.6 % (11.5-14.0); WHITE BLOOD COUNT 9.4 10^3/uL (4.0-10.5)
[2017-02-25 07:22] LABS: ANION GAP 10 (5-19); BLOOD UREA NITROGEN 38 mg/dL (7-20); CALCIUM 8.9 mg/dL (8.4-10.2); CARBON DIOXIDE 35 mmol/L (22-30); CHLORIDE 92 mmol/L (98-107); GLUCOSE 302 mg/dL (75-110); MAGNESIUM 2.5 mg/dL (1.6-2.3); PHOSPHORUS 4.2 mg/dL (2.5-4.5); POTASSIUM 3.7 mmol/L (3.6-5.0); SODIUM 136.7 mmol/L (137-145)
[2017-02-25 08:02] LABS: ABSOLUTE LYMPHOCYTES# (MANUAL) 0.4 10^3/uL (0.5-4.7); ABSOLUTE MONOCYTES # (MANUAL) 0.3 10^3/uL (0.1-1.4); ABSOLUTE NEUTROPHILS# (MANUAL) 8.7 10^3/uL (1.7-8.2); BASOPHILS % (MANUAL) 0 % (0-2); EOSINOPHILS % (MANUAL) 0 % (0-6); LYMPHOCYTES % (MANUAL) 3 % (13-45); METAMYELOCYTES % (MANUAL) 1 % (0); MONOCYTES % (MANUAL) 3 % (3-13); SEGMENTED NEUTROPHILS % (MAN) 92 % (42-78); TOTAL CELLS COUNTED 100
[2017-02-25 08:03] LABS: ANISOCYTOSIS 2+; HYPOCHROMASIA SLIGHT; PLATELET COMMENT ADEQUATE; POLYCHROMASIA SLIGHT; TOXIC GRANULATION SLIGHT
[2017-02-25] MEDS: BUDESONIDE NEB 0.5 MG/2 ML AMPUL NEB SCH ×2 (08:08→20:47)
[2017-02-25] MEDS: MULTIVIT-STRESS FORMULA/ZINC TABLET NG SCH (10:58)
[2017-02-25] MEDS: MAGNESIUM OXIDE 400 MG TABLET NG SCH (10:59)
[2017-02-25] MEDS: LEVOFLOXACIN 750 MG/D5W RTU 750 MG/150 ML RTUPB IV SCH (10:59)
[2017-02-25] MEDS: ASPIRIN 81 MG TABLET, CHEWABLE NG SCH (10:59)
[2017-02-25] MEDS: CEFEPIME 1 GM/D5W RTU 1 GM/50 ML RTUPB IV SCH ×2 (11:00→21:55)
[2017-02-25] MEDS: FUROSEMIDE INJ/PF 20 MG/2 ML SDV IV SCH ×2 (11:02→21:56)
[2017-02-25] MEDS: DULOXETINE HCL 30 MG CAPSULE.DR PO SCH (11:02)
[2017-02-25] MEDS: ENOXAPARIN SODIUM INJ 40 MG/0.4 ML DISP.SYRIN SUBCUT SCH (11:04)
[2017-02-25] MEDS: INSULIN DETEMIR 100 UNIT/ML 3 ML PEN SUBCUT SCH ×2 (11:11→17:55)
[2017-02-25] MEDS: NORMAL SALINE 10 ML SDV (SCHEDULED) IV SCH ×2 (11:12→21:58)
[2017-02-25] MEDS: TIOTROPIUM BROMIDE DPI 5 CAP/KIT (18 MCG/CAP) IH SCH (11:12)
[2017-02-25] MEDS: FLUTICASONE/SALMETEROL DISKUS 250-50 MCG/DOSE IH SCH ×2 (11:12→21:58)
[2017-02-25 11:58] LABS: ARTERIAL BLOOD BASE EXCESS 10.8 mmol/L; ARTERIAL BLOOD FIO2 30%; ARTERIAL BLOOD HCO3 35.4 mmol/L (20-26); ARTERIAL BLOOD O2 SATURATION 97.1 % (94-98); ARTERIAL BLOOD PCO2 46.4 mmHg (35-45); ARTERIAL BLOOD PO2 85.2 mmHg (80-100); ARTERIAL BLOOD TOTAL CO2 36.8 mmol/L (21-25)
--- NOTE | 2017-02-25 20:59 | PDOC PROGRESS REPORT ---
Subjective Progress Note for:: 02/25/17 Subjective:: Patient still on mechanical ventilation, we start tube feed, Reason For Visit: PNEUMONIA,ACUTE HYPERCAPNIC RESPIRATORY Physical Exam Vital Signs: Temp Pulse Resp BP Pulse Ox 98.6 F 93 26 H 103/49 L 94 02/25/17 18:00 02/25/17 18:00 02/25/17 18:00 02/25/17 18:00 02/25/17 18:00 Intake & Output 02/24/17 02/25/17 02/26/17 06:59 06:59 06:59 Intake Total 1668 1479 511 Output Total 1265 5979 1687 Balance -189 -8156 -1318 Weight 115.4 kg 114.2 kg Eye exam: PRESENT: PERRLA Respiratory exam: PRESENT: other - Equal air entry on the lung field GI/Abdominal exam: PRESENT: soft Results Laboratory Results: 02/25/17 06:30 02/25/17 06:30 02/25/17 02/25/17 02/25/17 06:30 06:30 06:30 WBC 9.4 RBC 4.08 Hgb 11.4 L Hct 35.8 L MCV 88 MCH 28.0 MCHC 31.8 L RDW 20.6 H Plt Count 352 Seg Neutrophils % Not Reportable Lymphocytes % Not Reportable Monocytes % Not Reportable Eosinophils % Not Reportable Basophils % Not Reportable Absolute Neutrophils Not Reportable Absolute Lymphocytes Not Reportable Absolute Monocytes Not Reportable Absolute Eosinophils Not Reportable Absolute Basophils Not Reportable Carbonic Acid 1.33 HCO3/H2CO3 Ratio 26:1 ABG pH 7.52 H ABG pCO2 44.1 ABG pO2 75.9 L ABG HCO3 34.8 H ABG O2 Saturation 96.3 ABG Base Excess 10.7 FiO2 30% Sodium 136.7 L Potassium 3.7 Chloride 92 L Carbon Dioxide 35 H Anion Gap 10 BUN 38 H Creatinine 0.87 Est GFR ( Amer) > 60 Est GFR (Non-Af Amer) > 60 Glucose 302 H Calcium 8.9 Phosphorus 4.2 Magnesium 2.5 H 02/25/17 11:36 WBC RBC Hgb Hct MCV MCH MCHC RDW Plt Count Seg Neutrophils % Lymphocytes % Monocytes % Eosinophils % Basophils % Absolute Neutrophils Absolute Lymphocytes Absolute Monocytes Absolute Eosinophils Absolute Basophils Carbonic Acid 1.40 H HCO3/H2CO3 Ratio 25:1 ABG pH 7.50 H ABG pCO2 46.4 H ABG pO2 85.2 ABG HCO3 35.4 H ABG O2 Saturation 97.1 ABG Base Excess 10.8 FiO2 30% Sodium Potassium Chloride Carbon Dioxide Anion Gap BUN Creatinine Est GFR ( Amer) Est GFR (Non-Af Amer) Glucose Calcium Phosphorus Magnesium 02/09/17 02/09/17 02/22/17 00:37 00:37 06:40 Creatine Kinase 109 37 CK-MB (CK-2) Troponin I 0.748 NT-Pro-B Natriuret Pep 02/22/17 02/22/17 02/22/17 06:40 13:05 13:05 Creatine Kinase 36 CK-MB (CK-2) 1.52 1.63 Troponin I 0.031 0.060 NT-Pro-B Natriuret Pep 02/22/17 02/22/17 02/25/17 18:00 18:00 06:30 Creatine Kinase 30 CK-MB (CK-2) 1.41 Troponin I 0.047 NT-Pro-B Natriuret Pep 1510 H Impressions: Guidance Fluoroscopy 02/13/17 00:00 IMPRESSION: SUCCESSFUL PLACEMENT OF A 5 FR DUAL LUMEN 46 CM PICC IN THE LEFT BASILIC VEIN. Interventional Vascular Procedure 02/13/17 00:00 IMPRESSION: SUCCESSFUL PLACEMENT OF A 5 FR DUAL LUMEN 46 CM PICC IN THE LEFT BASILIC VEIN. PICC Line Insertion 02/13/17 00:00 IMPRESSION: SUCCESSFUL PLACEMENT OF A 5 FR DUAL LUMEN 46 CM PICC IN THE LEFT BASILIC VEIN. Chest X-Ray 02/25/17 06:00 IMPRESSION: 1. Stable appearance of the chest. Assessment & Plan - Diagnosis (1) Right lower lobe pneumonia Qualifiers: Pneumonia type: due to unspecified organism Qualified Code(s): J18.1 - Lobar pneumonia, unspecified organism Is this a current diagnosis for this admission?: Yes (2) Acute hypercapnic respiratory failure Is this a current diagnosis for this admission?: Yes (3) Chronic obstructive pulmonary disease Qualifiers: COPD type: unspecified COPD Qualified Code(s): J44.9 - Chronic obstructive pulmonary disease, unspecified Is this a current diagnosis for this admission?: Yes (4) Chronic obstructive pulmonary disease with (acute) exacerbation Is this a current diagnosis for this admission?: Yes
[2017-02-25] MEDS: ATORVASTATIN CALCIUM 40 MG TABLET NG SCH (21:55)
[2017-02-25] MEDS: ZOLPIDEM TARTRATE 5 MG TABLET NG SCH (21:58)
[2017-02-26] MEDS: IPRATROPIUM/ALBUTEROL 0.5-2.5 MG/3 ML AMPUL NEB SCH ×7 (00:35→23:54)
[2017-02-26] MEDS: PROPOFOL 100 ML IV PRN ×4 (03:03→19:36)
[2017-02-26] MEDS: GABAPENTIN 300 MG CAPSULE NG SCH ×3 (05:52→22:02)
[2017-02-26] MEDS: INSULIN LISPRO 100 UNIT/ML 3 ML VIAL SUBCUT PRN ×3 (06:08→18:05)
[2017-02-26] MEDS: METHYLPREDNISOLONE INJ 125 MG/2 ML SDV IV SCH ×3 (06:18→17:09)
[2017-02-26 06:38] LABS: ANION GAP 11 (5-19); BLOOD UREA NITROGEN 50 mg/dL (7-20); CALCIUM 9.2 mg/dL (8.4-10.2); CARBON DIOXIDE 36 mmol/L (22-30); CHLORIDE 93 mmol/L (98-107); GLUCOSE 319 mg/dL (75-110); POTASSIUM 3.9 mmol/L (3.6-5.0)
[2017-02-26] MEDS: BUDESONIDE NEB 0.5 MG/2 ML AMPUL NEB SCH ×2 (08:23→21:29)
[2017-02-26] MEDS ORDERED: LEVALBUTEROL HCL NEB 1.25 MG/3 ML AMPUL NEB ONE (09:51)
[2017-02-26] MEDS ORDERED: LEVALBUTEROL HCL NEB 0.63 MG/3 ML AMPUL NEB PRN (09:59)
[2017-02-26] MEDS: TIOTROPIUM BROMIDE DPI 5 CAP/KIT (18 MCG/CAP) IH SCH (11:14)
[2017-02-26] MEDS: FLUTICASONE/SALMETEROL DISKUS 250-50 MCG/DOSE IH SCH ×2 (11:14→22:06)
[2017-02-26] MEDS: MULTIVIT-STRESS FORMULA/ZINC TABLET NG SCH (11:16)
[2017-02-26] MEDS: DULOXETINE HCL 30 MG CAPSULE.DR PO SCH (11:16)
[2017-02-26] MEDS: MAGNESIUM OXIDE 400 MG TABLET NG SCH (11:16)
[2017-02-26] MEDS: ASPIRIN 81 MG TABLET, CHEWABLE NG SCH (11:16)
[2017-02-26] MEDS: CEFEPIME 1 GM/D5W RTU 1 GM/50 ML RTUPB IV SCH ×2 (11:17→22:01)
[2017-02-26] MEDS: FUROSEMIDE INJ/PF 20 MG/2 ML SDV IV SCH ×2 (11:17→22:02)
[2017-02-26] MEDS: INSULIN DETEMIR 100 UNIT/ML 3 ML PEN SUBCUT SCH ×3 (11:18→18:08)
[2017-02-26] MEDS: ENOXAPARIN SODIUM INJ 40 MG/0.4 ML DISP.SYRIN SUBCUT SCH (11:21)
[2017-02-26] MEDS: LEVOFLOXACIN 750 MG/D5W RTU 750 MG/150 ML RTUPB IV SCH (11:45)
[2017-02-26] MEDS: NORMAL SALINE 10 ML SDV (SCHEDULED) IV SCH ×2 (11:46→22:06)
--- NOTE | 2017-02-26 21:30 | PDOC PROGRESS REPORT ---
Subjective Progress Note for:: 02/26/17 Subjective:: She has hyperglycemia, the dose of Solu-Medrol reduce to 40 every 8 Reason For Visit: PNEUMONIA,ACUTE HYPERCAPNIC RESPIRATORY Physical Exam Vital Signs: Temp Pulse Resp BP Pulse Ox 99.5 F 97 18 106/50 L 94 02/26/17 18:00 02/26/17 18:00 02/26/17 18:00 02/26/17 18:00 02/26/17 18:00 Intake & Output 02/25/17 02/26/17 02/27/17 06:59 06:59 06:59 Intake Total 1479 1310 754 Output Total 3135 2640 750 Balance -1656 -1330 4 Weight 114.2 kg 112.5 kg Eye exam: PRESENT: PERRLA Respiratory exam: PRESENT: clear to auscultation rolf Cardiovascular exam: PRESENT: +S1, +S2 GI/Abdominal exam: PRESENT: soft Results Laboratory Results: 02/25/17 06:30 02/26/17 06:00 02/26/17 06:00 Sodium 140.0 Potassium 3.9 Chloride 93 L Carbon Dioxide 36 H Anion Gap 11 BUN 50 H Creatinine 0.89 Est GFR ( Amer) > 60 Est GFR (Non-Af Amer) > 60 Glucose 319 H Calcium 9.2 02/09/17 02/09/17 02/22/17 00:37 00:37 06:40 Creatine Kinase 109 37 CK-MB (CK-2) Troponin I 0.748 NT-Pro-B Natriuret Pep 02/22/17 02/22/17 02/22/17 06:40 13:05 13:05 Creatine Kinase 36 CK-MB (CK-2) 1.52 1.63 Troponin I 0.031 0.060 NT-Pro-B Natriuret Pep 02/22/17 02/22/17 02/25/17 18:00 18:00 06:30 Creatine Kinase 30 CK-MB (CK-2) 1.41 Troponin I 0.047 NT-Pro-B Natriuret Pep 1510 H Impressions: Guidance Fluoroscopy 02/13/17 00:00 IMPRESSION: SUCCESSFUL PLACEMENT OF A 5 FR DUAL LUMEN 46 CM PICC IN THE LEFT BASILIC VEIN. Interventional Vascular Procedure 02/13/17 00:00 IMPRESSION: SUCCESSFUL PLACEMENT OF A 5 FR DUAL LUMEN 46 CM PICC IN THE LEFT BASILIC VEIN. PICC Line Insertion 02/13/17 00:00 IMPRESSION: SUCCESSFUL PLACEMENT OF A 5 FR DUAL LUMEN 46 CM PICC IN THE LEFT BASILIC VEIN. Chest X-Ray 02/25/17 06:00 IMPRESSION: 1. Stable appearance of the chest. Assessment & Plan - Diagnosis (1) Right lower lobe pneumonia Qualifiers: Pneumonia type: due to unspecified organism Qualified Code(s): J18.1 - Lobar pneumonia, unspecified organism Is this a current diagnosis for this admission?: Yes (2) Acute hypercapnic respiratory failure Is this a current diagnosis for this admission?: Yes (3) Chronic obstructive pulmonary disease Qualifiers: COPD type: unspecified COPD Qualified Code(s): J44.9 - Chronic obstructive pulmonary disease, unspecified Is this a current diagnosis for this admission?: Yes (4) Chronic obstructive pulmonary disease with (acute) exacerbation Is this a current diagnosis for this admission?: Yes (5) Diabetes mellitus Qualifiers: Diabetes mellitus type: type 2 Diabetes mellitus complication status: with neurologic complications Diabetes mellitus complication detail: with polyneuropathy 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
[2017-02-26] MEDS ORDERED: METHYLPREDNISOLONE INJ 125 MG/2 ML SDV IV SCH (22:00)
[2017-02-26] MEDS: ATORVASTATIN CALCIUM 40 MG TABLET NG SCH (22:02)
[2017-02-26] MEDS: METHYLPREDNISOLONE INJ 40 MG/1 ML SDV IV SCH (22:05)
[2017-02-26] MEDS: ZOLPIDEM TARTRATE 5 MG TABLET NG SCH (22:06)
[2017-02-27] MEDS: PROPOFOL 100 ML IV PRN ×7 (00:57→22:59)
[2017-02-27] MEDS: INSULIN LISPRO 100 UNIT/ML 3 ML VIAL SUBCUT PRN ×4 (01:06→18:06)
[2017-02-27] MEDS: IPRATROPIUM/ALBUTEROL 0.5-2.5 MG/3 ML AMPUL NEB SCH ×6 (04:24→23:49)
[2017-02-27] MEDS: METHYLPREDNISOLONE INJ 40 MG/1 ML SDV IV SCH ×3 (05:33→21:41)
[2017-02-27] MEDS: GABAPENTIN 300 MG CAPSULE NG SCH ×3 (05:33→21:39)
[2017-02-27 06:33] LABS: BLOOD UREA NITROGEN 69 mg/dL (7-20); CALCIUM 9.4 mg/dL (8.4-10.2); CHLORIDE 91 mmol/L (98-107); GLUCOSE 290 mg/dL (75-110); POTASSIUM 4.5 mmol/L (3.6-5.0); SODIUM 138.3 mmol/L (137-145)
[2017-02-27 06:35] LABS: ANION GAP 11 (5-19); CARBON DIOXIDE 36 mmol/L (22-30)
[2017-02-27] MEDS: BUDESONIDE NEB 0.5 MG/2 ML AMPUL NEB SCH ×2 (08:18→20:20)
[2017-02-27] MEDS: CEFEPIME 1 GM/D5W RTU 1 GM/50 ML RTUPB IV SCH ×2 (10:29→21:41)
[2017-02-27] MEDS: MAGNESIUM OXIDE 400 MG TABLET NG SCH (10:30)
[2017-02-27] MEDS: MULTIVIT-STRESS FORMULA/ZINC TABLET NG SCH (10:30)
[2017-02-27] MEDS: DULOXETINE HCL 30 MG CAPSULE.DR PO SCH (10:31)
[2017-02-27] MEDS: ASPIRIN 81 MG TABLET, CHEWABLE NG SCH (10:31)
[2017-02-27] MEDS: INSULIN DETEMIR 100 UNIT/ML 3 ML PEN SUBCUT SCH ×2 (10:32→18:02)
[2017-02-27] MEDS: ENOXAPARIN SODIUM INJ 40 MG/0.4 ML DISP.SYRIN SUBCUT SCH (10:34)
[2017-02-27] MEDS: LEVOFLOXACIN 750 MG/D5W RTU 750 MG/150 ML RTUPB IV SCH (10:35)
[2017-02-27] MEDS: TIOTROPIUM BROMIDE DPI 5 CAP/KIT (18 MCG/CAP) IH SCH (10:38)
[2017-02-27] MEDS: FLUTICASONE/SALMETEROL DISKUS 250-50 MCG/DOSE IH SCH ×2 (10:38→21:43)
[2017-02-27] MEDS: NORMAL SALINE 10 ML SDV (SCHEDULED) IV SCH ×3 (10:38→21:43)
[2017-02-27] MEDS: FUROSEMIDE INJ/PF 20 MG/2 ML SDV IV SCH ×2 (11:11→21:40)
--- NOTE | 2017-02-27 11:34 | RADIOLOGY REPORT (SQ) ---
EXAM DESCRIPTION: CHEST SINGLE VIEW COMPLETED DATE/TIME: 02/27/2017 9:23 am REASON FOR STUDY: PNA COMPARISON: 02/25/2017 EXAM PARAMETERS: NUMBER OF VIEWS: One view. TECHNIQUE: Single frontal radiographic view of the chest acquired. RADIATION DOSE: NA LIMITATIONS: None. FINDINGS: LUNGS AND PLEURA: The previously described left retrocardiac opacity is again identified. Remaining lung ashley are clear. No pleural effusions are identified. No pneumothorax is seen. MEDIASTINUM AND HILAR STRUCTURES: No masses. Contour normal. HEART AND VASCULAR STRUCTURES: The configuration of the heart and mediastinal structures is unchanged . BONES: No acute findings. HARDWARE: Endotracheal tube, PICC line, and NG tube are unchanged in position. OTHER: No other significant finding. IMPRESSION: No significant interval change. Findings as noted above TECHNICAL DOCUMENTATION: JOB ID: [id number] [employer]- All Rights Reserved
--- NOTE | 2017-02-27 15:21 | PDOC PROGRESS REPORT ---
Subjective Progress Note for:: 02/25/17 Subjective:: Intubated and sedated Reason For Visit: PNEUMONIA,ACUTE HYPERCAPNIC RESPIRATORY Physical Exam Vital Signs: Temp Pulse Resp BP Pulse Ox 97.0 F 67 20 99/52 L 96 02/25/17 07:58 02/25/17 07:58 02/25/17 07:58 02/25/17 07:58 02/25/17 07:58 Intake & Output 02/24/17 02/25/17 02/26/17 06:59 06:59 06:59 Intake Total 1668 1479 Output Total 2615 3135 60 Balance -947 -1656 -60 Weight 115.4 kg 114.2 kg General appearance: PRESENT: no acute distress, disheveled, morbidly obese, severe distress, well-developed. ABSENT: cooperative, mild distress, obese Head exam: PRESENT: atraumatic, normocephalic Eye exam: PRESENT: conjunctiva pale. ABSENT: conjunctival injection, conjunctiva pink, nystagmus, periorbital swelling, scleral icterus Mouth exam: PRESENT: dry mucosa, neck supple, tongue midline, other - ET tube in place. ABSENT: laceration, moist Neck exam: ABSENT: carotid bruit, JVD, lymphadenopathy, thyromegaly, tracheal deviation, tracheostomy Respiratory exam: PRESENT: decreased breath sounds, prolonged expiratory phas, rales, rhonchi, symmetrical, unlabored, wheezes. ABSENT: accessory muscle use, chest wall tenderness, clear to auscultation rolf, crackles, retraction, stridor , tachypnea Cardiovascular exam: PRESENT: RRR, +S1, +S2. ABSENT: rubs Pulses: PRESENT: normal radial pulses GI/Abdominal exam: PRESENT: diminished bowel sounds, soft Gentrourinary exam: PRESENT: indwelling catheter Extremities exam: ABSENT: clubbing, full ROM, joint swelling Musculoskeletal exam: ABSENT: deformity, dislocation, full ROM Neurological exam: ABSENT: alert, awake Skin exam: PRESENT: dry, warm Results Laboratory Results: 02/25/17 06:30 02/25/17 06:30 02/25/17 02/25/17 02/25/17 06:30 06:30 06:30 WBC 9.4 RBC 4.08 Hgb 11.4 L Hct 35.8 L MCV 88 MCH 28.0 MCHC 31.8 L RDW 20.6 H Plt Count 352 Seg Neutrophils % Not Reportable Lymphocytes % Not Reportable Monocytes % Not Reportable Eosinophils % Not Reportable Basophils % Not Reportable Absolute Neutrophils Not Reportable Absolute Lymphocytes Not Reportable Absolute Monocytes Not Reportable Absolute Eosinophils Not Reportable Absolute Basophils Not Reportable Carbonic Acid 1.33 HCO3/H2CO3 Ratio 26:1 ABG pH 7.52 H ABG pCO2 44.1 ABG pO2 75.9 L ABG HCO3 34.8 H ABG O2 Saturation 96.3 ABG Base Excess 10.7 FiO2 30% Sodium 136.7 L Potassium 3.7 Chloride 92 L Carbon Dioxide 35 H Anion Gap 10 BUN 38 H Creatinine 0.87 Est GFR ( Amer) > 60 Est GFR (Non-Af Amer) > 60 Glucose 302 H Calcium 8.9 Phosphorus 4.2 Magnesium 2.5 H 02/09/17 02/09/17 02/22/17 00:37 00:37 06:40 Creatine Kinase 109 37 CK-MB (CK-2) Troponin I 0.748 NT-Pro-B Natriuret Pep 02/22/17 02/22/17 02/22/17 06:40 13:05 13:05 Creatine Kinase 36 CK-MB (CK-2) 1.52 1.63 Troponin I 0.031 0.060 NT-Pro-B Natriuret Pep 02/22/17 02/22/17 02/25/17 18:00 18:00 06:30 Creatine Kinase 30 CK-MB (CK-2) 1.41 Troponin I 0.047 NT-Pro-B Natriuret Pep 1510 H Impressions: Guidance Fluoroscopy 02/13/17 00:00 IMPRESSION: SUCCESSFUL PLACEMENT OF A 5 FR DUAL LUMEN 46 CM PICC IN THE LEFT BASILIC VEIN. Interventional Vascular Procedure 02/13/17 00:00 IMPRESSION: SUCCESSFUL PLACEMENT OF A 5 FR DUAL LUMEN 46 CM PICC IN THE LEFT BASILIC VEIN. PICC Line Insertion 02/13/17 00:00 IMPRESSION: SUCCESSFUL PLACEMENT OF A 5 FR DUAL LUMEN 46 CM PICC IN THE LEFT BASILIC VEIN. Chest X-Ray 02/25/17 06:00 IMPRESSION: 1. Stable appearance of the chest. Assessment & Plan - Diagnosis (1) Acute hypercapnic respiratory failure Is this a current diagnosis for this admission?: Yes Plan: Unchanged over the last 24 hours (2) COPD exacerbation Is this a current diagnosis for this admission?: Yes Plan: Improving (3) Right lower lobe pneumonia Qualifiers: Pneumonia type: due to unspecified organism Qualified Code(s): J18.1 - Lobar pneumonia, unspecified organism Is this a current diagnosis for this admission?: Yes Plan: Etiology undetermined positive cultures and blood and urine but not sputum 02/09/17 02:14 Urine Culture - Final Clean Catch Midstream Escherichia Coli Staph Coagulase Negative 02/08/17 19:12 Blood Culture - Final Blood Peptostreptococcus Species 02/08/17 19:03 Blood Culture - Final Blood NO GROWTH IN 5 DAYS (4) Acute combined systolic (congestive) and diastolic (congestive) heart failure Is this a current diagnosis for this admission?: Yes - Time Total Critical Time (Minutes): 40
--- NOTE | 2017-02-27 15:23 | PDOC PROGRESS REPORT ---
Subjective Progress Note for:: 02/26/17 Subjective:: Intubated and sedated Reason For Visit: PNEUMONIA,ACUTE HYPERCAPNIC RESPIRATORY Physical Exam Vital Signs: Temp Pulse Resp BP Pulse Ox 96.8 F L 70 16 111/60 96 02/26/17 08:00 02/26/17 08:00 02/26/17 08:00 02/26/17 08:00 02/26/17 08:00 Intake & Output 02/25/17 02/26/17 02/27/17 06:59 06:59 06:59 Intake Total 1479 1310 Output Total 3135 2640 75 Balance -1656 -1330 -75 Weight 114.2 kg 112.5 kg General appearance: PRESENT: no acute distress, disheveled, morbidly obese. ABSENT: cooperative, mild distress, obese, severe distress Head exam: PRESENT: atraumatic, normocephalic Eye exam: PRESENT: conjunctiva pale. ABSENT: conjunctival injection, conjunctiva pink, nystagmus, periorbital swelling, scleral icterus Mouth exam: PRESENT: dry mucosa, neck supple, tongue midline, other - ET tube in place. ABSENT: laceration, moist Neck exam: ABSENT: carotid bruit, JVD, lymphadenopathy, thyromegaly, tracheal deviation, tracheostomy Respiratory exam: PRESENT: decreased breath sounds, prolonged expiratory phas, rales, rhonchi, symmetrical, unlabored, wheezes. ABSENT: accessory muscle use, chest wall tenderness, clear to auscultation rolf, crackles, retraction, stridor , tachypnea Cardiovascular exam: PRESENT: RRR, +S1, +S2 Pulses: PRESENT: normal radial pulses GI/Abdominal exam: PRESENT: diminished bowel sounds, soft Gentrourinary exam: PRESENT: indwelling catheter Extremities exam: ABSENT: clubbing, full ROM, joint swelling Musculoskeletal exam: ABSENT: ambulatory, deformity, dislocation, full ROM Neurological exam: ABSENT: alert, awake Skin exam: PRESENT: dry, warm Results Laboratory Results: 02/25/17 06:30 02/26/17 06:00 02/25/17 02/26/17 11:36 06:00 Carbonic Acid 1.40 H HCO3/H2CO3 Ratio 25:1 ABG pH 7.50 H ABG pCO2 46.4 H ABG pO2 85.2 ABG HCO3 35.4 H ABG O2 Saturation 97.1 ABG Base Excess 10.8 FiO2 30% Sodium 140.0 Potassium 3.9 Chloride 93 L Carbon Dioxide 36 H Anion Gap 11 BUN 50 H Creatinine 0.89 Est GFR ( Amer) > 60 Est GFR (Non-Af Amer) > 60 Glucose 319 H Calcium 9.2 02/09/17 02/09/17 02/22/17 00:37 00:37 06:40 Creatine Kinase 109 37 CK-MB (CK-2) Troponin I 0.748 NT-Pro-B Natriuret Pep 02/22/17 02/22/17 02/22/17 06:40 13:05 13:05 Creatine Kinase 36 CK-MB (CK-2) 1.52 1.63 Troponin I 0.031 0.060 NT-Pro-B Natriuret Pep 02/22/17 02/22/17 02/25/17 18:00 18:00 06:30 Creatine Kinase 30 CK-MB (CK-2) 1.41 Troponin I 0.047 NT-Pro-B Natriuret Pep 1510 H Impressions: Guidance Fluoroscopy 02/13/17 00:00 IMPRESSION: SUCCESSFUL PLACEMENT OF A 5 FR DUAL LUMEN 46 CM PICC IN THE LEFT BASILIC VEIN. Interventional Vascular Procedure 02/13/17 00:00 IMPRESSION: SUCCESSFUL PLACEMENT OF A 5 FR DUAL LUMEN 46 CM PICC IN THE LEFT BASILIC VEIN. PICC Line Insertion 02/13/17 00:00 IMPRESSION: SUCCESSFUL PLACEMENT OF A 5 FR DUAL LUMEN 46 CM PICC IN THE LEFT BASILIC VEIN. Chest X-Ray 02/25/17 06:00 IMPRESSION: 1. Stable appearance of the chest. Assessment & Plan - Diagnosis (1) Acute hypercapnic respiratory failure Is this a current diagnosis for this admission?: Yes Plan: No change last 24 hours (2) COPD exacerbation Is this a current diagnosis for this admission?: Yes Plan: Improving (3) Right lower lobe pneumonia Qualifiers: Pneumonia type: due to unspecified organism Qualified Code(s): J18.1 - Lobar pneumonia, unspecified organism Is this a current diagnosis for this admission?: Yes (4) Acute combined systolic (congestive) and diastolic (congestive) heart failure Is this a current diagnosis for this admission?: Yes - Time Total Critical Time (Minutes): 35
--- NOTE | 2017-02-27 15:25 | PDOC PROGRESS REPORT ---
Subjective Progress Note for:: 02/27/17 Subjective:: Intubated and sedated Reason For Visit: PNEUMONIA,ACUTE HYPERCAPNIC RESPIRATORY Physical Exam Vital Signs: Temp Pulse Resp BP Pulse Ox 99.0 F 90 18 107/52 L 94 02/27/17 12:00 02/27/17 12:00 02/27/17 13:45 02/27/17 13:45 02/27/17 13:45 Intake & Output 02/26/17 02/27/17 02/28/17 06:59 06:59 06:59 Intake Total 1310 1556 60 Output Total 2640 1900 725 Balance -6397 -870 -628 Weight 112.5 kg 112.9 kg General appearance: PRESENT: no acute distress, disheveled, morbidly obese. ABSENT: cooperative, mild distress, obese, severe distress, thin Head exam: PRESENT: atraumatic, normocephalic Eye exam: PRESENT: conjunctiva pale. ABSENT: conjunctival injection, conjunctiva pink, nystagmus, periorbital swelling, scleral icterus Mouth exam: PRESENT: dry mucosa, neck supple, tongue midline, other - ET tube in place. ABSENT: laceration, moist Neck exam: ABSENT: carotid bruit, JVD, lymphadenopathy, thyromegaly, tracheal deviation, tracheostomy Respiratory exam: PRESENT: decreased breath sounds, prolonged expiratory phas, rhonchi, symmetrical, unlabored, wheezes. ABSENT: accessory muscle use, chest wall tenderness, clear to auscultation rolf, crackles, rales, retraction, stridor , tachypnea Cardiovascular exam: PRESENT: RRR, +S1, +S2 Pulses: PRESENT: normal radial pulses GI/Abdominal exam: PRESENT: diminished bowel sounds, soft Gentrourinary exam: PRESENT: indwelling catheter Extremities exam: ABSENT: clubbing, joint swelling Musculoskeletal exam: ABSENT: ambulatory, deformity, dislocation Neurological exam: ABSENT: alert, awake Skin exam: PRESENT: dry, warm Results Laboratory Results: 02/25/17 06:30 02/27/17 05:55 02/27/17 05:55 Sodium 138.3 Potassium 4.5 Chloride 91 L Carbon Dioxide 36 H Anion Gap 11 BUN 69 H Creatinine 0.91 Est GFR ( Amer) > 60 Est GFR (Non-Af Amer) > 60 Glucose 290 H Calcium 9.4 02/09/17 02/09/1718 00:37 00:37 06:40 Creatine Kinase 109 37 CK-MB (CK-2) Troponin I 0.748 NT-Pro-B Natriuret Pep 02/22/17 02/22/17 02/22/17 06:40 13:05 13:05 Creatine Kinase 36 CK-MB (CK-2) 1.52 1.63 Troponin I 0.031 0.060 NT-Pro-B Natriuret Pep 02/22/17 02/22/17 02/25/17 18:00 18:00 06:30 Creatine Kinase 30 CK-MB (CK-2) 1.41 Troponin I 0.047 NT-Pro-B Natriuret Pep 1510 H Impressions: Guidance Fluoroscopy 02/13/17 00:00 IMPRESSION: SUCCESSFUL PLACEMENT OF A 5 FR DUAL LUMEN 46 CM PICC IN THE LEFT BASILIC VEIN. Interventional Vascular Procedure 02/13/17 00:00 IMPRESSION: SUCCESSFUL PLACEMENT OF A 5 FR DUAL LUMEN 46 CM PICC IN THE LEFT BASILIC VEIN. PICC Line Insertion 02/13/17 00:00 IMPRESSION: SUCCESSFUL PLACEMENT OF A 5 FR DUAL LUMEN 46 CM PICC IN THE LEFT BASILIC VEIN. Chest X-Ray 02/27/17 09:00 IMPRESSION: No significant interval change. Findings as noted above Assessment & Plan - Diagnosis (1) Acute hypercapnic respiratory failure Is this a current diagnosis for this admission?: Yes Plan: No change last 24 hours (2) COPD exacerbation Is this a current diagnosis for this admission?: Yes Plan: Improving (3) Right lower lobe pneumonia Qualifiers: Pneumonia type: due to unspecified organism Qualified Code(s): J18.1 - Lobar pneumonia, unspecified organism Is this a current diagnosis for this admission?: Yes (4) Acute combined systolic (congestive) and diastolic (congestive) heart failure Is this a current diagnosis for this admission?: Yes - Time Total Critical Time (Minutes): 35
[2017-02-27] MEDS: FAMOTIDINE INJ/PF 20 MG/2 ML SDV IV SCH (21:40)
[2017-02-27] MEDS: ATORVASTATIN CALCIUM 40 MG TABLET NG SCH (21:41)
[2017-02-27] MEDS: ZOLPIDEM TARTRATE 5 MG TABLET NG SCH (21:43)
[2017-02-27] MEDS ORDERED: FAMOTIDINE 20 MG TABLET PO SCH (22:00)
[2017-02-28] MEDS: INSULIN LISPRO 100 UNIT/ML 3 ML VIAL SUBCUT PRN ×3 (00:11→12:36)
[2017-02-28] MEDS: IPRATROPIUM/ALBUTEROL 0.5-2.5 MG/3 ML AMPUL NEB SCH ×5 (04:15→20:31)
[2017-02-28 05:39] LABS: ANION GAP 11 (5-19); BLOOD UREA NITROGEN 69 mg/dL (7-20); CALCIUM 9.3 mg/dL (8.4-10.2); CARBON DIOXIDE 36 mmol/L (22-30); CHLORIDE 92 mmol/L (98-107); GLUCOSE 258 mg/dL (75-110); POTASSIUM 4.7 mmol/L (3.6-5.0); SODIUM 139.4 mmol/L (137-145)
[2017-02-28] MEDS: PROPOFOL 100 ML IV PRN ×2 (06:05→12:30)
[2017-02-28] MEDS: GABAPENTIN 300 MG CAPSULE NG SCH ×3 (06:06→23:37)
[2017-02-28] MEDS: METHYLPREDNISOLONE INJ 40 MG/1 ML SDV IV SCH ×3 (06:06→23:37)
[2017-02-28] MEDS: NORMAL SALINE 10 ML SDV (SCHEDULED) IV SCH ×5 (06:07→23:37)
[2017-02-28] MEDS: BUDESONIDE NEB 0.5 MG/2 ML AMPUL NEB SCH ×2 (08:35→20:31)
--- NOTE | 2017-02-28 12:16 | PDOC PROGRESS REPORT ---
Subjective Progress Note for:: 02/25/17 Subjective:: Patient about the same and has made very little progress. There is no significant change in general condition. Patient remains intubated, sedated, patient however looks comfortable and in acute distress. Medications reviewed. Patient seems to be maintaining sinus rhythm. No sustained tachycardia or bradycardia arrhythmias noted. Reason For Visit: PNEUMONIA,ACUTE HYPERCAPNIC RESPIRATORY Physical Exam Vital Signs: Temp Pulse Resp BP Pulse Ox 98.6 F 93 26 H 103/49 L 94 02/25/17 18:00 02/25/17 18:00 02/25/17 18:00 02/25/17 18:00 02/25/17 18:00 Intake & Output 02/24/17 02/25/17 02/26/17 06:59 06:59 06:59 Intake Total 1668 1479 511 Output Total 2615 1005 1685 Balance -947 -6276 -1174 Weight 115.4 kg 114.2 kg Exam: GENERAL: well-nourished and in no acute distress. Patient is intubated and sedated. Orientation cannot be checked HEAD: Atraumatic, normocephalic. EYES: Pupils equal round and reactive to light, extraocular movements could not be checked, sclera anicteric, conjunctiva are normal. ENT: TMs normal, nares patent, oropharynx clear without exudates. Moist mucous membranes. No oral ulcerations or bleeding gums noted NECK: supple without lymphadenopathy or JVD. Trachea is central. No cervical or axillary lymphadenopathy noted. Carotids are 2+ LUNGS: Breath sounds mostly clear to auscultation patient is noted to have bibasal crackles at the extreme bases CHEST: Palpation of the chest wall shows no significant chest wall tenderness or abnormalities. 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 ABDOMEN: Soft, no significant tenderness appreciated, normoactive bowel sounds. No guarding, no rebound. No rigidity noted . No masses appreciated. EXTREMITIES: Pedal pulses are 1-2+, no calf tenderness noted, 1+ pedal edema noted. No clubbing or cyanosis. NEUROLOGICAL: The patient cannot participate in the neurological exam but no facial asymmetry noted. Extremities slightly hypotonic PSYCH: This cannot be evaluated. Patient cannot participate. SKIN: No significant ecchymosis, rash, or signs of pruritus noted. MUSCULOSKELETAL EXAM: No significant joint swelling noted. Patient cannot participate in musculoskeletal exam Results Laboratory Results: 02/25/17 06:30 02/25/17 06:30 02/25/17 02/25/17 02/25/17 06:30 06:30 06:30 WBC 9.4 RBC 4.08 Hgb 11.4 L Hct 35.8 L MCV 88 MCH 28.0 MCHC 31.8 L RDW 20.6 H Plt Count 352 Seg Neutrophils % Not Reportable Lymphocytes % Not Reportable Monocytes % Not Reportable Eosinophils % Not Reportable Basophils % Not Reportable Absolute Neutrophils Not Reportable Absolute Lymphocytes Not Reportable Absolute Monocytes Not Reportable Absolute Eosinophils Not Reportable Absolute Basophils Not Reportable Carbonic Acid 1.33 HCO3/H2CO3 Ratio 26:1 ABG pH 7.52 H ABG pCO2 44.1 ABG pO2 75.9 L ABG HCO3 34.8 H ABG O2 Saturation 96.3 ABG Base Excess 10.7 FiO2 30% Sodium 136.7 L Potassium 3.7 Chloride 92 L Carbon Dioxide 35 H Anion Gap 10 BUN 38 H Creatinine 0.87 Est GFR ( Amer) > 60 Est GFR (Non-Af Amer) > 60 Glucose 302 H Calcium 8.9 Phosphorus 4.2 Magnesium 2.5 H 02/25/17 11:36 WBC RBC Hgb Hct MCV MCH MCHC RDW Plt Count Seg Neutrophils % Lymphocytes % Monocytes % Eosinophils % Basophils % Absolute Neutrophils Absolute Lymphocytes Absolute Monocytes Absolute Eosinophils Absolute Basophils Carbonic Acid 1.40 H HCO3/H2CO3 Ratio 25:1 ABG pH 7.50 H ABG pCO2 46.4 H ABG pO2 85.2 ABG HCO3 35.4 H ABG O2 Saturation 97.1 ABG Base Excess 10.8 FiO2 30% Sodium Potassium Chloride Carbon Dioxide Anion Gap BUN Creatinine Est GFR ( Amer) Est GFR (Non-Af Amer) Glucose Calcium Phosphorus Magnesium 02/09/17 02/09/17 02/22/17 00:37 00:37 06:40 Creatine Kinase 109 37 CK-MB (CK-2) Troponin I 0.748 NT-Pro-B Natriuret Pep 02/22/17 02/22/17 02/22/17 06:40 13:05 13:05 Creatine Kinase 36 CK-MB (CK-2) 1.52 1.63 Troponin I 0.031 0.060 NT-Pro-B Natriuret Pep 02/22/17 02/22/17 02/25/17 18:00 18:00 06:30 Creatine Kinase 30 CK-MB (CK-2) 1.41 Troponin I 0.047 NT-Pro-B Natriuret Pep 1510 H EKG Comments: Telemetry strips shows sinus rhythm. No sustained tachycardia or bradycardia arrhythmias noted. Impressions: Guidance Fluoroscopy 02/13/17 00:00 IMPRESSION: SUCCESSFUL PLACEMENT OF A 5 FR DUAL LUMEN 46 CM PICC IN THE LEFT BASILIC VEIN. Interventional Vascular Procedure 02/13/17 00:00 IMPRESSION: SUCCESSFUL PLACEMENT OF A 5 FR DUAL LUMEN 46 CM PICC IN THE LEFT BASILIC VEIN. PICC Line Insertion 02/13/17 00:00 IMPRESSION: SUCCESSFUL PLACEMENT OF A 5 FR DUAL LUMEN 46 CM PICC IN THE LEFT BASILIC VEIN. Chest X-Ray 02/25/17 06:00 IMPRESSION: 1. Stable appearance of the chest. Assessment & Plan - Diagnosis (1) Coronary artery disease Qualifiers: Coronary Disease-Associated Artery/Lesion type: [place] artery [place] vs. transplanted heart: [place] heart Associated angina: without angina Qualified Code(s): I25.10 - Atherosclerotic heart disease of [place] coronary artery without angina pectoris Is this a current diagnosis for this admission?: Yes (2) Right lower lobe pneumonia Qualifiers: Pneumonia type: due to unspecified organism Qualified Code(s): J18.1 - Lobar pneumonia, unspecified organism Is this a current diagnosis for this admission?: Yes (3) Hypotension Qualifiers: Hypotension type: unspecified hypotension type Qualified Code(s): I95.9 - Hypotension, unspecified (4) Diabetes mellitus Qualifiers: Diabetes mellitus type: type 2 Diabetes mellitus complication status: with neurologic complications Diabetes mellitus complication detail: with polyneuropathy Diabetes mellitus oil heaterman insulin use: with jail use Qualified Code(s): E11.42 - Type 2 diabetes mellitus with diabetic polyneuropathy; Z79.4 - terminal operations supervisor (current) use of insulin; Z79.4 - nursing home ( current) use of insulin; Z79.4 - terminal operations supervisor (current) use of insulin; Z79.4 - terminal operations supervisor (current) use of insulin Is this a current diagnosis for this admission?: Yes (5) Cardiomyopathy Qualifiers: Cardiomyopathy type: unspecified Qualified Code(s): I42.9 - Cardiomyopathy , unspecified Is this a current diagnosis for this admission?: Yes (6) Chronic obstructive pulmonary disease with (acute) exacerbation Is this a current diagnosis for this admission?: Yes (7) CHF (congestive heart failure) Qualifiers: Congestive heart failure type: systolic Congestive heart failure chronicity : chronic Qualified Code(s): I50.22 - Chronic systolic (congestive) heart failure Is this a current diagnosis for this admission?: Yes - Notes Notes: Hypotension: This has improved. Currently off vasopressors. Cardiomyopathy: Currently without any significant CHF or significant dysrhythmia. Congestive heart failure: Currently seems reasonably euvolemic. Patient is getting some NG tube feeding. Coronary artery disease: Currently without any significant dysrhythmia or signs of ongoing ischemia. Right lower lobe pneumonia: Continue antibiotic therapy. Diabetes: Patient being adequately managed by hospitalist. Patient seemed generally stable but remains critically ill. Will continue to follow patient. - Time Time with patient: Greater than 35 minutes - CODE STATUS was discussed, patient remains full code. Surrogate decision-maker unchanged. Multiple medical problems were addressed. More than 50% of the time spent coordinating care, discussing management plans with involved caregivers. Management plans discussed with involved personnels. Medical decision making was of moderate to high complexity, patient's has multiple comorbidities. Medications reviewed and adjusted accordingly: Yes
--- NOTE | 2017-02-28 12:17 | PDOC PROGRESS REPORT ---
Subjective Progress Note for:: 02/26/17 Subjective:: Patient about the same and has made very little progress. There is no significant change in general condition. Patient remains intubated, sedated, patient however looks comfortable and in acute distress. Medications reviewed. Patient seems to be maintaining sinus rhythm. No sustained tachycardia or bradycardia arrhythmias noted. Reason For Visit: PNEUMONIA,ACUTE HYPERCAPNIC RESPIRATORY Physical Exam Vital Signs: Temp Pulse Resp BP Pulse Ox 99.5 F 97 18 106/50 L 94 02/26/17 18:00 02/26/17 18:00 02/26/17 18:00 02/26/17 18:00 02/26/17 18:00 Intake & Output 02/25/17 02/26/17 02/27/17 06:59 06:59 06:59 Intake Total 1479 1310 754 Output Total 3135 2640 750 Balance -1656 -1330 4 Weight 114.2 kg 112.5 kg Exam: GENERAL: well-nourished and in no acute distress. Patient is intubated and sedated. Orientation cannot be checked HEAD: Atraumatic, normocephalic. EYES: Pupils equal round and reactive to light, extraocular movements could not be checked, sclera anicteric, conjunctiva are normal. ENT: TMs normal, nares patent, oropharynx clear without exudates. Moist mucous membranes. No oral ulcerations or bleeding gums noted NECK: supple without lymphadenopathy or JVD. Trachea is central. No cervical or axillary lymphadenopathy noted. Carotids are 2+ LUNGS: Breath sounds mostly clear to auscultation patient is noted to have bibasal crackles at the extreme bases CHEST: Palpation of the chest wall shows no significant chest wall tenderness or abnormalities. 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 ABDOMEN: Soft, no significant tenderness appreciated, normoactive bowel sounds. No guarding, no rebound. No rigidity noted . No masses appreciated. EXTREMITIES: Pedal pulses are 1-2+, no calf tenderness noted, 1+ pedal edema noted. No clubbing or cyanosis. NEUROLOGICAL: The patient cannot participate in the neurological exam but no facial asymmetry noted. Extremities slightly hypotonic PSYCH: This cannot be evaluated. Patient cannot participate. SKIN: No significant ecchymosis, rash, or signs of pruritus noted. MUSCULOSKELETAL EXAM: No significant joint swelling noted. Patient cannot participate in musculoskeletal exam Results Laboratory Results: 02/25/17 06:30 02/26/17 06:00 02/26/17 06:00 Sodium 140.0 Potassium 3.9 Chloride 93 L Carbon Dioxide 36 H Anion Gap 11 BUN 50 H Creatinine 0.89 Est GFR ( Amer) > 60 Est GFR (Non-Af Amer) > 60 Glucose 319 H Calcium 9.2 02/09/17 02/09/17 02/22/17 00:37 00:37 06:40 Creatine Kinase 109 37 CK-MB (CK-2) Troponin I 0.748 NT-Pro-B Natriuret Pep 02/22/17 02/22/17 02/22/17 06:40 13:05 13:05 Creatine Kinase 36 CK-MB (CK-2) 1.52 1.63 Troponin I 0.031 0.060 NT-Pro-B Natriuret Pep 02/22/17 02/22/17 02/25/17 18:00 18:00 06:30 Creatine Kinase 30 CK-MB (CK-2) 1.41 Troponin I 0.047 NT-Pro-B Natriuret Pep 1510 H Impressions: Guidance Fluoroscopy 02/13/17 00:00 IMPRESSION: SUCCESSFUL PLACEMENT OF A 5 FR DUAL LUMEN 46 CM PICC IN THE LEFT BASILIC VEIN. Interventional Vascular Procedure 02/13/17 00:00 IMPRESSION: SUCCESSFUL PLACEMENT OF A 5 FR DUAL LUMEN 46 CM PICC IN THE LEFT BASILIC VEIN. PICC Line Insertion 02/13/17 00:00 IMPRESSION: SUCCESSFUL PLACEMENT OF A 5 FR DUAL LUMEN 46 CM PICC IN THE LEFT BASILIC VEIN. Chest X-Ray 02/25/17 06:00 IMPRESSION: 1. Stable appearance of the chest. Assessment & Plan - Diagnosis (1) CHF (congestive heart failure) Qualifiers: Congestive heart failure type: systolic Congestive heart failure chronicity : chronic Qualified Code(s): I50.22 - Chronic systolic (congestive) heart failure Is this a current diagnosis for this admission?: Yes (2) Cardiomyopathy Qualifiers: Cardiomyopathy type: unspecified Qualified Code(s): I42.9 - Cardiomyopathy , unspecified Is this a current diagnosis for this admission?: Yes (3) Chronic obstructive pulmonary disease with (acute) exacerbation Is this a current diagnosis for this admission?: Yes (4) Diabetes mellitus Qualifiers: Diabetes mellitus type: type 2 Diabetes mellitus complication status: with neurologic complications Diabetes mellitus complication detail: with polyneuropathy Diabetes mellitus usp insulin use: with usp use Qualified Code(s): E11.42 - Type 2 diabetes mellitus with diabetic polyneuropathy; Z79.4 - care home (current) use of insulin; Z79.4 - termite inspector ( current) use of insulin; Z79.4 - care home (current) use of insulin; Z79.4 - termite inspector (current) use of insulin Is this a current diagnosis for this admission?: Yes (5) Right lower lobe pneumonia Qualifiers: Pneumonia type: due to unspecified organism Qualified Code(s): J18.1 - Lobar pneumonia, unspecified organism Is this a current diagnosis for this admission?: Yes (6) Acute and chronic respiratory failure with hypercapnia Is this a current diagnosis for this admission?: Yes - Notes Notes: Patient remains critically ill but stable. Continue current supportive care with artificial ventilation, nutrition, DVT prophylaxis and antibiotics for pneumonia. Cardiac bailey patient seems stable without any evidence of significant cardiac dysrhythmia or volume overload. No evidence of ongoing cardiac ischemia noted. At this point will continue to support vital signs and weight for patient's general status to improve. Patient does remain critically ill. - Time Time with patient: 15-25 minutes - More than 50% of the time spent coordinating care, discussing management plans with involved caregivers. Management plans discussed with involved personnels. Medical decision making was of moderate to high complexity, patient's has multiple comorbidities. Medications reviewed and adjusted accordingly: Yes
--- NOTE | 2017-02-28 12:18 | PDOC PROGRESS REPORT ---
Subjective Progress Note for:: 02/27/17 Subjective:: Patient about the same and has made very little progress. There is no significant change in general condition. Patient remains intubated, sedated, patient however looks comfortable and in acute distress. Medications reviewed. Patient seems to be maintaining sinus rhythm. No sustained tachycardia or bradycardia arrhythmias noted. Reason For Visit: PNEUMONIA,ACUTE HYPERCAPNIC RESPIRATORY Physical Exam Vital Signs: Temp Pulse Resp BP Pulse Ox 99.7 F 86 17 111/62 93 02/27/17 20:00 02/27/17 18:00 02/27/17 18:00 02/27/17 18:00 02/27/17 18:00 Intake & Output 02/26/17 02/27/17 02/28/17 06:59 06:59 06:59 Intake Total 1310 1556 856 Output Total 2640 1900 1060 Balance -1330 -344 -204 Weight 112.5 kg 112.9 kg Exam: GENERAL: well-nourished and in no acute distress. Patient is intubated and sedated. Orientation cannot be checked HEAD: Atraumatic, normocephalic. EYES: Pupils equal round and reactive to light, extraocular movements could not be checked, sclera anicteric, conjunctiva are normal. ENT: TMs normal, nares patent, oropharynx clear without exudates. Moist mucous membranes. No oral ulcerations or bleeding gums noted NECK: supple without lymphadenopathy or JVD. Trachea is central. No cervical or axillary lymphadenopathy noted. Carotids are 2+ LUNGS: Breath sounds mostly clear to auscultation patient is noted to have bibasal crackles at the extreme bases CHEST: Palpation of the chest wall shows no significant chest wall tenderness or abnormalities. 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 ABDOMEN: Soft, no significant tenderness appreciated, normoactive bowel sounds. No guarding, no rebound. No rigidity noted . No masses appreciated. EXTREMITIES: Pedal pulses are 1-2+, no calf tenderness noted, 1+ pedal edema noted. No clubbing or cyanosis. NEUROLOGICAL: The patient cannot participate in the neurological exam but no facial asymmetry noted. Extremities slightly hypotonic PSYCH: This cannot be evaluated. Patient cannot participate. SKIN: No significant ecchymosis, rash, or signs of pruritus noted. MUSCULOSKELETAL EXAM: No significant joint swelling noted. Patient cannot participate in musculoskeletal exam Results Laboratory Results: 02/25/17 06:30 02/27/17 05:55 02/27/17 05:55 Sodium 138.3 Potassium 4.5 Chloride 91 L Carbon Dioxide 36 H Anion Gap 11 BUN 69 H Creatinine 0.91 Est GFR ( Amer) > 60 Est GFR (Non-Af Amer) > 60 Glucose 290 H Calcium 9.4 02/09/17 02/09/17 02/22/17 00:37 00:37 06:40 Creatine Kinase 109 37 CK-MB (CK-2) Troponin I 0.748 NT-Pro-B Natriuret Pep 02/22/17 02/22/17 02/22/17 06:40 13:05 13:05 Creatine Kinase 36 CK-MB (CK-2) 1.52 1.63 Troponin I 0.031 0.060 NT-Pro-B Natriuret Pep 02/22/17 02/22/17 02/25/17 18:00 18:00 06:30 Creatine Kinase 30 CK-MB (CK-2) 1.41 Troponin I 0.047 NT-Pro-B Natriuret Pep 1510 H Impressions: Guidance Fluoroscopy 02/13/17 00:00 IMPRESSION: SUCCESSFUL PLACEMENT OF A 5 FR DUAL LUMEN 46 CM PICC IN THE LEFT BASILIC VEIN. Interventional Vascular Procedure 02/13/17 00:00 IMPRESSION: SUCCESSFUL PLACEMENT OF A 5 FR DUAL LUMEN 46 CM PICC IN THE LEFT BASILIC VEIN. PICC Line Insertion 02/13/17 00:00 IMPRESSION: SUCCESSFUL PLACEMENT OF A 5 FR DUAL LUMEN 46 CM PICC IN THE LEFT BASILIC VEIN. Chest X-Ray 02/27/17 09:00 IMPRESSION: No significant interval change. Findings as noted above Assessment & Plan - Diagnosis (1) CHF (congestive heart failure) Qualifiers: Congestive heart failure type: systolic Congestive heart failure chronicity : chronic Qualified Code(s): I50.22 - Chronic systolic (congestive) heart failure Is this a current diagnosis for this admission?: Yes (2) Chronic obstructive pulmonary disease with (acute) exacerbation Is this a current diagnosis for this admission?: Yes (3) Diabetes mellitus Qualifiers: Diabetes mellitus type: type 2 Diabetes mellitus complication status: with neurologic complications Diabetes mellitus complication detail: with polyneuropathy Diabetes mellitus jail insulin use: with jail use Qualified Code(s): E11.42 - Type 2 diabetes mellitus with diabetic polyneuropathy; Z79.4 - correction (current) use of insulin; Z79.4 - correction ( current) use of insulin; Z79.4 - intermediate teacher (current) use of insulin; Z79.4 - correction (current) use of insulin Is this a current diagnosis for this admission?: Yes (4) Right lower lobe pneumonia Qualifiers: Pneumonia type: due to unspecified organism Qualified Code(s): J18.1 - Lobar pneumonia, unspecified organism Is this a current diagnosis for this admission?: Yes (5) Acute and chronic respiratory failure with hypercapnia Is this a current diagnosis for this admission?: Yes (6) Cardiomyopathy Qualifiers: Cardiomyopathy type: unspecified Qualified Code(s): I42.9 - Cardiomyopathy , unspecified Is this a current diagnosis for this admission?: Yes (7) Coronary artery disease Qualifiers: Coronary Disease-Associated Artery/Lesion type: [place] artery [place] vs. transplanted heart: [place] heart Associated angina: without angina Qualified Code(s): I25.10 - Atherosclerotic heart disease of [place] coronary artery without angina pectoris Is this a current diagnosis for this admission?: Yes - Notes Notes: Patient remains on multiple support including ventilation, NG tube for nutrition , DVT prophylaxis and antibiotics. Attempts are being made regarding CODE STATUS and plan of care. At this point will recommend continuing supportive care. So far cardiac bailey patient seems stable without any evidence of significant volume overload, significant cardiac dysrhythmia or symptoms and signs of angina or ongoing cardiac ischemia. Will continue to follow patient' s. Patient's medical regimen reviewed and no changes suggested at this point. - Time Time with patient: 15-25 minutes - More than 50% of the time spent coordinating care, discussing management plans with involved caregivers. Management plans discussed with involved personnels. Medical decision making was of moderate to high complexity, patient's has multiple comorbidities. Medications reviewed and adjusted accordingly: Yes
--- NOTE | 2017-02-28 12:20 | PDOC PROGRESS REPORT ---
Subjective Progress Note for:: 02/28/17 Subjective:: Patient about the same and has made very little progress. There is no significant change in general condition. Patient remains intubated, sedated, patient however looks comfortable and in acute distress. Getting NG feeds Medications reviewed. Patient seems to be maintaining sinus rhythm. No sustained tachycardia or bradycardia arrhythmias noted. Reason For Visit: PNEUMONIA,ACUTE HYPERCAPNIC RESPIRATORY Physical Exam Vital Signs: Temp Pulse Resp BP Pulse Ox 99.3 F 89 25 H 103/59 L 94 02/28/17 08:00 02/28/17 10:00 02/28/17 10:00 02/28/17 10:00 02/28/17 10:00 Intake & Output 02/27/17 02/28/17 03/01/17 06:59 06:59 06:59 Intake Total 1556 1671 Output Total 1900 2160 150 Balance -344 -489 -150 Weight 112.9 kg 112.9 kg Exam: GENERAL: well-nourished and in no acute distress. Patient is intubated and sedated. Orientation cannot be checked HEAD: Atraumatic, normocephalic. EYES: Pupils equal round and reactive to light, extraocular movements could not be checked, sclera anicteric, conjunctiva are normal. ENT: TMs normal, nares patent, oropharynx clear without exudates. Moist mucous membranes. No oral ulcerations or bleeding gums noted NECK: supple without lymphadenopathy or JVD. Trachea is central. No cervical or axillary lymphadenopathy noted. Carotids are 2+ LUNGS: Breath sounds mostly clear to auscultation patient is noted to have bibasal crackles at the extreme bases CHEST: Palpation of the chest wall shows no significant chest wall tenderness or abnormalities. 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 ABDOMEN: Soft, no significant tenderness appreciated, normoactive bowel sounds. No guarding, no rebound. No rigidity noted . No masses appreciated. EXTREMITIES: Pedal pulses are 1-2+, no calf tenderness noted, 1+ pedal edema noted. No clubbing or cyanosis. NEUROLOGICAL: The patient cannot participate in the neurological exam but no facial asymmetry noted. Extremities slightly hypotonic PSYCH: This cannot be evaluated. Patient cannot participate. SKIN: No significant ecchymosis, rash, or signs of pruritus noted. MUSCULOSKELETAL EXAM: No significant joint swelling noted. Patient cannot participate in musculoskeletal exam Results Laboratory Results: 02/25/17 06:30 02/28/17 05:00 02/28/17 05:00 Sodium 139.4 Potassium 4.7 Chloride 92 L Carbon Dioxide 36 H Anion Gap 11 BUN 69 H Creatinine 0.76 Est GFR ( Amer) > 60 Est GFR (Non-Af Amer) > 60 Glucose 258 H Calcium 9.3 02/09/17 02/09/17 02/22/17 00:37 00:37 06:40 Creatine Kinase 109 37 CK-MB (CK-2) Troponin I 0.748 NT-Pro-B Natriuret Pep 02/22/17 02/22/17 02/22/17 06:40 13:05 13:05 Creatine Kinase 36 CK-MB (CK-2) 1.52 1.63 Troponin I 0.031 0.060 NT-Pro-B Natriuret Pep 02/22/17 02/22/17 02/25/17 18:00 18:00 06:30 Creatine Kinase 30 CK-MB (CK-2) 1.41 Troponin I 0.047 NT-Pro-B Natriuret Pep 1510 H Impressions: Guidance Fluoroscopy 02/13/17 00:00 IMPRESSION: SUCCESSFUL PLACEMENT OF A 5 FR DUAL LUMEN 46 CM PICC IN THE LEFT BASILIC VEIN. Interventional Vascular Procedure 02/13/17 00:00 IMPRESSION: SUCCESSFUL PLACEMENT OF A 5 FR DUAL LUMEN 46 CM PICC IN THE LEFT BASILIC VEIN. PICC Line Insertion 02/13/17 00:00 IMPRESSION: SUCCESSFUL PLACEMENT OF A 5 FR DUAL LUMEN 46 CM PICC IN THE LEFT BASILIC VEIN. Chest X-Ray 02/27/17 09:00 IMPRESSION: No significant interval change. Findings as noted above Assessment & Plan - Diagnosis (1) Coronary artery disease Qualifiers: Coronary Disease-Associated Artery/Lesion type: [place] artery [place] vs. transplanted heart: [place] heart Associated angina: angina presence unspecified Qualified Code(s): I25.10 - Atherosclerotic heart disease of [place] coronary artery without angina pectoris (2) CHF (congestive heart failure) Qualifiers: Congestive heart failure type: systolic Congestive heart failure chronicity : chronic Qualified Code(s): I50.22 - Chronic systolic (congestive) heart failure Is this a current diagnosis for this admission?: Yes (3) COPD exacerbation Is this a current diagnosis for this admission?: Yes (4) Diabetes mellitus Qualifiers: Diabetes mellitus type: type 2 Diabetes mellitus complication status: with neurologic complications Diabetes mellitus complication detail: with polyneuropathy Diabetes mellitus chcf insulin use: with chcf use Qualified Code(s): E11.42 - Type 2 diabetes mellitus with diabetic polyneuropathy; Z79.4 - shelter (current) use of insulin; Z79.4 - shelter ( current) use of insulin; Z79.4 - shelter (current) use of insulin; Z79.4 - ferry terminal agent (current) use of insulin Is this a current diagnosis for this admission?: Yes (5) Chronic obstructive pulmonary disease with (acute) exacerbation Is this a current diagnosis for this admission?: Yes (6) Right lower lobe pneumonia Qualifiers: Pneumonia type: due to unspecified organism Qualified Code(s): J18.1 - Lobar pneumonia, unspecified organism Is this a current diagnosis for this admission?: Yes (7) Acute and chronic respiratory failure with hypercapnia Is this a current diagnosis for this admission?: Yes - Notes Notes: Patient remains critically ill remaining on ventilatory support, nutrition support and other support. Attempts are being made for discussion with the family regarding DNR and comfort care status. At this point continue supportive care. Cardiac bailey patient seems to be maintaining her vitals, no significant cardiac dysrhythmias, signs of angina, ischemia or significant CHF noted. It seems patient is just failing to progress towards general improvement. - Time Time with patient: 15-25 minutes - More than 50% of the time spent coordinating care, discussing management plans with involved caregivers. Management plans discussed with involved personnels. Medical decision making was of moderate to high complexity, patient's has multiple comorbidities. Medications reviewed and adjusted accordingly: Yes
[2017-02-28] MEDS: LEVOFLOXACIN 750 MG/D5W RTU 750 MG/150 ML RTUPB IV SCH (12:27)
[2017-02-28] MEDS: ASPIRIN 81 MG TABLET, CHEWABLE NG SCH (12:28)
[2017-02-28] MEDS: MULTIVIT-STRESS FORMULA/ZINC TABLET NG SCH (12:28)
[2017-02-28] MEDS: DULOXETINE HCL 30 MG CAPSULE.DR PO SCH (12:28)
[2017-02-28] MEDS: FUROSEMIDE INJ/PF 20 MG/2 ML SDV IV SCH ×2 (12:29→23:36)
[2017-02-28] MEDS: MAGNESIUM OXIDE 400 MG TABLET NG SCH (12:29)
[2017-02-28] MEDS: FAMOTIDINE INJ/PF 20 MG/2 ML SDV IV SCH ×2 (12:29→23:36)
[2017-02-28] MEDS: INSULIN DETEMIR 100 UNIT/ML 3 ML PEN SUBCUT SCH (12:32)
[2017-02-28] MEDS: ENOXAPARIN SODIUM INJ 40 MG/0.4 ML DISP.SYRIN SUBCUT SCH (12:35)
[2017-02-28] MEDS: CEFEPIME 1 GM/D5W RTU 1 GM/50 ML RTUPB IV SCH ×2 (12:41→23:36)
[2017-02-28] MEDS: FLUTICASONE/SALMETEROL DISKUS 250-50 MCG/DOSE IH SCH ×2 (12:54→23:36)
[2017-02-28] MEDS: TIOTROPIUM BROMIDE DPI 5 CAP/KIT (18 MCG/CAP) IH SCH (12:54)
--- NOTE | 2017-02-28 16:16 | PDOC PROGRESS REPORT ---
Subjective Progress Note for:: 02/28/17 Subjective:: Intubated and sedated Reason For Visit: PNEUMONIA,ACUTE HYPERCAPNIC RESPIRATORY Physical Exam Vital Signs: Temp Pulse Resp BP Pulse Ox 99.3 F 84 21 H 123/63 94 02/28/17 08:00 02/28/17 08:00 02/28/17 08:00 02/28/17 08:00 02/28/17 08:00 Intake & Output 02/27/17 02/28/17 03/01/17 06:59 06:59 06:59 Intake Total 1556 1671 Output Total 1900 2160 75 Balance -344 -489 -75 Weight 112.9 kg 112.9 kg General appearance: PRESENT: no acute distress, disheveled, morbidly obese. ABSENT: cooperative, mild distress, obese, severe distress, thin Head exam: PRESENT: atraumatic, normocephalic Eye exam: PRESENT: conjunctiva pale. ABSENT: conjunctival injection, conjunctiva pink, nystagmus, periorbital swelling, scleral icterus Mouth exam: PRESENT: dry mucosa, neck supple, tongue midline, other - ET tube. ABSENT: laceration, moist Neck exam: ABSENT: carotid bruit, JVD, lymphadenopathy, thyromegaly, tracheal deviation, tracheostomy Respiratory exam: PRESENT: decreased breath sounds, prolonged expiratory phas, rhonchi, symmetrical, unlabored. ABSENT: accessory muscle use, chest wall tenderness, clear to auscultation rolf, crackles, rales, retraction, stridor, tachypnea Cardiovascular exam: PRESENT: RRR, +S1, +S2 Pulses: PRESENT: normal radial pulses GI/Abdominal exam: PRESENT: diminished bowel sounds, soft Extremities exam: ABSENT: clubbing, full ROM, joint swelling Musculoskeletal exam: ABSENT: ambulatory, deformity, dislocation, full ROM Neurological exam: ABSENT: alert, awake Skin exam: PRESENT: dry, warm Results Laboratory Results: 02/25/17 06:30 02/28/17 05:00 02/28/17 05:00 Sodium 139.4 Potassium 4.7 Chloride 92 L Carbon Dioxide 36 H Anion Gap 11 BUN 69 H Creatinine 0.76 Est GFR ( Amer) > 60 Est GFR (Non-Af Amer) > 60 Glucose 258 H Calcium 9.3 02/09/17 02/09/17 02/22/17 00:37 00:37 06:40 Creatine Kinase 109 37 CK-MB (CK-2) Troponin I 0.748 NT-Pro-B Natriuret Pep 02/22/17 02/22/17 02/22/17 06:40 13:05 13:05 Creatine Kinase 36 CK-MB (CK-2) 1.52 1.63 Troponin I 0.031 0.060 NT-Pro-B Natriuret Pep 02/22/17 02/22/17 02/25/17 18:00 18:00 06:30 Creatine Kinase 30 CK-MB (CK-2) 1.41 Troponin I 0.047 NT-Pro-B Natriuret Pep 1510 H Impressions: Guidance Fluoroscopy 02/13/17 00:00 IMPRESSION: SUCCESSFUL PLACEMENT OF A 5 FR DUAL LUMEN 46 CM PICC IN THE LEFT BASILIC VEIN. Interventional Vascular Procedure 02/13/17 00:00 IMPRESSION: SUCCESSFUL PLACEMENT OF A 5 FR DUAL LUMEN 46 CM PICC IN THE LEFT BASILIC VEIN. PICC Line Insertion 02/13/17 00:00 IMPRESSION: SUCCESSFUL PLACEMENT OF A 5 FR DUAL LUMEN 46 CM PICC IN THE LEFT BASILIC VEIN. Chest X-Ray 02/27/17 09:00 IMPRESSION: No significant interval change. Findings as noted above Assessment & Plan - Diagnosis (1) Acute hypercapnic respiratory failure Is this a current diagnosis for this admission?: Yes Plan: extensive talk with family and PCP will extubate to comfort care at family request (2) COPD exacerbation Is this a current diagnosis for this admission?: Yes (3) Right lower lobe pneumonia Qualifiers: Pneumonia type: due to unspecified organism Qualified Code(s): J18.1 - Lobar pneumonia, unspecified organism Is this a current diagnosis for this admission?: Yes (4) Acute combined systolic (congestive) and diastolic (congestive) heart failure Is this a current diagnosis for this admission?: Yes - Time Total Critical Time (Minutes): 60 - Plan Summary Plan Summary: extubate to comfort care per family Aman
[2017-02-28] MEDS: MIDAZOLAM 2 MG/2 ML INJ IV PRN (17:16)
[2017-02-28] MEDS: MORPHINE SULFATE 10 MG/ML INJ IV PRN (17:18)
[2017-02-28] MEDS ORDERED: HYDROMORPHONE HCL INJ/PF 2 MG/ML AMPULE ONE (17:58)
[2017-02-28] MEDS ORDERED: HYDROMORPHONE HCL INJ/PF 2 MG/ML AMPULE IV PRN (20:23)
[2017-02-28] MEDS ORDERED: HYDROMORPHONE HCL INJ/PF 2 MG/ML AMPULE IV ONE (20:30)
[2017-02-28] MEDS: HYDROMORPHONE HCL INJ/PF 2 MG/ML AMPULE IV PRN (21:17)
--- NOTE | 2017-02-28 22:25 | PDOC PROGRESS REPORT ---
Subjective Progress Note for:: 02/27/17 Subjective:: Patient's condition is about the same, Reason For Visit: PNEUMONIA,ACUTE HYPERCAPNIC RESPIRATORY Physical Exam Vital Signs: Temp Pulse Resp BP Pulse Ox 99.7 F 92 24 H 129/68 H 99 02/28/17 16:00 02/28/17 16:00 02/28/17 16:47 02/28/17 16:47 02/28/17 18:00 Intake & Output 02/27/17 02/28/17 03/01/17 06:59 06:59 06:59 Intake Total 1556 1671 Output Total 1900 2160 860 Balance -344 -489 -860 Weight 112.9 kg 112.9 kg Respiratory exam: PRESENT: clear to auscultation rolf Cardiovascular exam: PRESENT: +S1, +S2 GI/Abdominal exam: PRESENT: soft Results Laboratory Results: 02/25/17 06:30 02/28/17 05:00 02/28/17 05:00 Sodium 139.4 Potassium 4.7 Chloride 92 L Carbon Dioxide 36 H Anion Gap 11 BUN 69 H Creatinine 0.76 Est GFR ( Amer) > 60 Est GFR (Non-Af Amer) > 60 Glucose 258 H Calcium 9.3 02/09/17 02/09/17 02/22/17 00:37 00:37 06:40 Creatine Kinase 109 37 CK-MB (CK-2) Troponin I 0.748 NT-Pro-B Natriuret Pep 02/22/17 02/22/17 02/22/17 06:40 13:05 13:05 Creatine Kinase 36 CK-MB (CK-2) 1.52 1.63 Troponin I 0.031 0.060 NT-Pro-B Natriuret Pep 02/22/17 02/22/17 02/25/17 18:00 18:00 06:30 Creatine Kinase 30 CK-MB (CK-2) 1.41 Troponin I 0.047 NT-Pro-B Natriuret Pep 1510 H Impressions: Guidance Fluoroscopy 02/13/17 00:00 IMPRESSION: SUCCESSFUL PLACEMENT OF A 5 FR DUAL LUMEN 46 CM PICC IN THE LEFT BASILIC VEIN. Interventional Vascular Procedure 02/13/17 00:00 IMPRESSION: SUCCESSFUL PLACEMENT OF A 5 FR DUAL LUMEN 46 CM PICC IN THE LEFT BASILIC VEIN. PICC Line Insertion 02/13/17 00:00 IMPRESSION: SUCCESSFUL PLACEMENT OF A 5 FR DUAL LUMEN 46 CM PICC IN THE LEFT BASILIC VEIN. Chest X-Ray 02/27/17 09:00 IMPRESSION: No significant interval change. Findings as noted above Assessment & Plan - Diagnosis (1) Right lower lobe pneumonia Qualifiers: Pneumonia type: due to unspecified organism Qualified Code(s): J18.1 - Lobar pneumonia, unspecified organism Is this a current diagnosis for this admission?: Yes (2) Acute hypercapnic respiratory failure Is this a current diagnosis for this admission?: Yes (3) Chronic obstructive pulmonary disease Qualifiers: COPD type: unspecified COPD Qualified Code(s): J44.9 - Chronic obstructive pulmonary disease, unspecified Is this a current diagnosis for this admission?: Yes (4) Chronic obstructive pulmonary disease with (acute) exacerbation Is this a current diagnosis for this admission?: Yes (5) Diabetes mellitus Qualifiers: Diabetes mellitus type: type 2 Diabetes mellitus complication status: with neurologic complications Diabetes mellitus complication detail: with polyneuropathy Diabetes mellitus termite exterminator helper insulin use: with termite exterminator helper use Qualified Code(s): E11.42 - Type 2 diabetes mellitus with diabetic polyneuropathy; Z79.4 - jail (current) use of insulin; Z79.4 - termite exterminator helper ( current) use of insulin; Z79.4 - termite exterminator helper (current) use of insulin; Z79.4 - jail (current) use of insulin Is this a current diagnosis for this admission?: Yes
--- NOTE | 2017-02-28 22:27 | PDOC PROGRESS REPORT ---
Subjective Progress Note for:: 02/28/17 Subjective:: Patient was weaned of the mechanical ventilation today family is wanting to make patient comfort care, she was terminally weaned off mechanical ventilation , family by the bedside Reason For Visit: PNEUMONIA,ACUTE HYPERCAPNIC RESPIRATORY Physical Exam Vital Signs: Temp Pulse Resp BP Pulse Ox 99.7 F 92 24 H 129/68 H 99 02/28/17 16:00 02/28/17 16:00 02/28/17 16:47 02/28/17 16:47 02/28/17 18:00 Intake & Output 02/27/17 02/28/17 03/01/17 06:59 06:59 06:59 Intake Total 1556 1671 Output Total 1900 2160 860 Balance -344 -489 -860 Weight 112.9 kg 112.9 kg General appearance: PRESENT: mild distress Eye exam: PRESENT: PERRLA Respiratory exam: PRESENT: decreased breath sounds Cardiovascular exam: PRESENT: +S1, +S2 Murmur grade: 3 Results Laboratory Results: 02/25/17 06:30 02/28/17 05:00 02/28/17 05:00 Sodium 139.4 Potassium 4.7 Chloride 92 L Carbon Dioxide 36 H Anion Gap 11 BUN 69 H Creatinine 0.76 Est GFR ( Amer) > 60 Est GFR (Non-Af Amer) > 60 Glucose 258 H Calcium 9.3 02/09/17 02/09/17 02/22/17 00:37 00:37 06:40 Creatine Kinase 109 37 CK-MB (CK-2) Troponin I 0.748 NT-Pro-B Natriuret Pep 02/22/17 02/22/17 02/22/17 06:40 13:05 13:05 Creatine Kinase 36 CK-MB (CK-2) 1.52 1.63 Troponin I 0.031 0.060 NT-Pro-B Natriuret Pep 02/22/17 02/22/17 02/25/17 18:00 18:00 06:30 Creatine Kinase 30 CK-MB (CK-2) 1.41 Troponin I 0.047 NT-Pro-B Natriuret Pep 1510 H Impressions: Guidance Fluoroscopy 02/13/17 00:00 IMPRESSION: SUCCESSFUL PLACEMENT OF A 5 FR DUAL LUMEN 46 CM PICC IN THE LEFT BASILIC VEIN. Interventional Vascular Procedure 02/13/17 00:00 IMPRESSION: SUCCESSFUL PLACEMENT OF A 5 FR DUAL LUMEN 46 CM PICC IN THE LEFT BASILIC VEIN. PICC Line Insertion 02/13/17 00:00 IMPRESSION: SUCCESSFUL PLACEMENT OF A 5 FR DUAL LUMEN 46 CM PICC IN THE LEFT BASILIC VEIN. Chest X-Ray 02/27/17 09:00 IMPRESSION: No significant interval change. Findings as noted above Assessment & Plan - Diagnosis (1) Right lower lobe pneumonia Qualifiers: Pneumonia type: due to unspecified organism Qualified Code(s): J18.1 - Lobar pneumonia, unspecified organism Is this a current diagnosis for this admission?: Yes (2) Acute hypercapnic respiratory failure Is this a current diagnosis for this admission?: Yes (3) Chronic obstructive pulmonary disease Qualifiers: COPD type: unspecified COPD Qualified Code(s): J44.9 - Chronic obstructive pulmonary disease, unspecified Is this a current diagnosis for this admission?: Yes (4) Chronic obstructive pulmonary disease with (acute) exacerbation Is this a current diagnosis for this admission?: Yes (5) Diabetes mellitus Qualifiers: Diabetes mellitus type: type 2 Diabetes mellitus complication status: with neurologic complications Diabetes mellitus complication detail: with polyneuropathy Diabetes mellitus local company intermodal truck driver insulin use: with local company intermodal truck driver use Qualified Code(s): E11.42 - Type 2 diabetes mellitus with diabetic polyneuropathy; Z79.4 - group home (current) use of insulin; Z79.4 - group home ( current) use of insulin; Z79.4 - group home (current) use of insulin; Z79.4 - group home (current) use of insulin Is this a current diagnosis for this admission?: Yes
[2017-02-28] MEDS: ATORVASTATIN CALCIUM 40 MG TABLET NG SCH (23:36)
[2017-02-28] MEDS: ZOLPIDEM TARTRATE 5 MG TABLET NG SCH (23:37)
[2017-03-01] MEDS: IPRATROPIUM/ALBUTEROL 0.5-2.5 MG/3 ML AMPUL NEB SCH ×3 (01:04→08:13)
[2017-03-01] MEDS: HYDROMORPHONE HCL INJ/PF 2 MG/ML AMPULE IV PRN ×4 (04:21→21:14)
[2017-03-01] MEDS: GABAPENTIN 300 MG CAPSULE NG SCH (06:20)
[2017-03-01] MEDS: NORMAL SALINE 10 ML SDV (SCHEDULED) IV SCH ×2 (06:20→10:26)
[2017-03-01] MEDS: METHYLPREDNISOLONE INJ 40 MG/1 ML SDV IV SCH (06:20)
[2017-03-01] MEDS: BUDESONIDE NEB 0.5 MG/2 ML AMPUL NEB SCH (08:13)
[2017-03-01] MEDS ORDERED: ENOXAPARIN SODIUM INJ 40 MG/0.4 ML DISP.SYRIN SUBCUT SCH (10:00)
[2017-03-01] MEDS: ASPIRIN 81 MG TABLET, CHEWABLE NG SCH (10:26)
[2017-03-01] MEDS: MAGNESIUM OXIDE 400 MG TABLET NG SCH (10:26)
[2017-03-01] MEDS: LEVOFLOXACIN 750 MG/D5W RTU 750 MG/150 ML RTUPB IV SCH (10:26)
[2017-03-01] MEDS: FUROSEMIDE INJ/PF 20 MG/2 ML SDV IV SCH (10:26)
[2017-03-01] MEDS: DULOXETINE HCL 30 MG CAPSULE.DR PO SCH (10:26)
[2017-03-01] MEDS: MULTIVIT-STRESS FORMULA/ZINC TABLET NG SCH (10:26)
[2017-03-01] MEDS: FAMOTIDINE INJ/PF 20 MG/2 ML SDV IV SCH (10:26)
[2017-03-01] MEDS: FLUTICASONE/SALMETEROL DISKUS 250-50 MCG/DOSE IH SCH (10:26)
[2017-03-01] MEDS: TIOTROPIUM BROMIDE DPI 5 CAP/KIT (18 MCG/CAP) IH SCH (10:26)
[2017-03-01] MEDS: MORPHINE SULFATE 10 MG/ML INJ IV PRN (14:20)
--- NOTE | 2017-03-01 16:50 | PDOC PROGRESS REPORT ---
Subjective Progress Note for:: 03/01/17 Subjective:: Patient is comfort care measures no new issues to address Reason For Visit: PNEUMONIA,ACUTE HYPERCAPNIC RESPIRATORY Physical Exam Vital Signs: Temp Pulse Resp BP Pulse Ox 99.7 F 94 24 H 129/68 H 95 02/28/17 16:00 03/01/17 08:00 02/28/17 16:47 02/28/17 16:47 03/01/17 16:00 Intake & Output 02/28/17 03/01/17 03/02/17 06:59 06:59 06:59 Intake Total 1671 0 Output Total 2160 860 550 Balance -489 -860 -550 Weight 112.9 kg Murmur grade: 3 Results Laboratory Results: 02/25/17 06:30 02/28/17 05:00 02/09/17 02/09/17 02/22/17 00:37 00:37 06:40 Creatine Kinase 109 37 CK-MB (CK-2) Troponin I 0.748 NT-Pro-B Natriuret Pep 02/22/17 02/22/17 02/22/17 06:40 13:05 13:05 Creatine Kinase 36 CK-MB (CK-2) 1.52 1.63 Troponin I 0.031 0.060 NT-Pro-B Natriuret Pep 02/22/17 02/22/17 02/25/17 18:00 18:00 06:30 Creatine Kinase 30 CK-MB (CK-2) 1.41 Troponin I 0.047 NT-Pro-B Natriuret Pep 1510 H Impressions: Guidance Fluoroscopy 02/13/17 00:00 IMPRESSION: SUCCESSFUL PLACEMENT OF A 5 FR DUAL LUMEN 46 CM PICC IN THE LEFT BASILIC VEIN. Interventional Vascular Procedure 02/13/17 00:00 IMPRESSION: SUCCESSFUL PLACEMENT OF A 5 FR DUAL LUMEN 46 CM PICC IN THE LEFT BASILIC VEIN. PICC Line Insertion 02/13/17 00:00 IMPRESSION: SUCCESSFUL PLACEMENT OF A 5 FR DUAL LUMEN 46 CM PICC IN THE LEFT BASILIC VEIN. Chest X-Ray 02/27/17 09:00 IMPRESSION: No significant interval change. Findings as noted above Assessment & Plan - Diagnosis (1) Right lower lobe pneumonia Qualifiers: Pneumonia type: due to unspecified organism Qualified Code(s): J18.1 - Lobar pneumonia, unspecified organism Is this a current diagnosis for this admission?: Yes (2) Acute hypercapnic respiratory failure Is this a current diagnosis for this admission?: Yes (3) Chronic obstructive pulmonary disease Qualifiers: COPD type: unspecified COPD Qualified Code(s): J44.9 - Chronic obstructive pulmonary disease, unspecified Is this a current diagnosis for this admission?: Yes (4) Chronic obstructive pulmonary disease with (acute) exacerbation Is this a current diagnosis for this admission?: Yes (5) Diabetes mellitus Qualifiers: Diabetes mellitus type: type 2 Diabetes mellitus complication status: with neurologic complications Diabetes mellitus complication detail: with polyneuropathy Diabetes mellitus prison insulin use: with prison use Qualified Code(s): E11.42 - Type 2 diabetes mellitus with diabetic polyneuropathy; Z79.4 - shelter (current) use of insulin; Z79.4 - terminal gauger supervisor ( current) use of insulin; Z79.4 - terminal gauger supervisor (current) use of insulin; Z79.4 - terminal gauger supervisor (current) use of insulin Is this a current diagnosis for this admission?: Yes
--- NOTE | 2017-03-01 17:16 | PDOC PROGRESS REPORT ---
Subjective Progress Note for:: 03/01/17 Subjective:: Patient has been extubated and made a comfort care. No further evaluation performed. Reason For Visit: PNEUMONIA,ACUTE HYPERCAPNIC RESPIRATORY Physical Exam Vital Signs: Temp Pulse Resp BP Pulse Ox 99.7 F 94 24 H 129/68 H 95 02/28/17 16:00 03/01/17 08:00 02/28/17 16:47 02/28/17 16:47 03/01/17 16:00 Intake & Output 02/28/17 03/01/17 03/02/17 06:59 06:59 06:59 Intake Total 1671 0 Output Total 2160 860 550 Balance -489 -860 -550 Weight 112.9 kg Results Laboratory Results: 02/25/17 06:30 02/28/17 05:00 02/09/17 02/09/17 02/22/17 00:37 00:37 06:40 Creatine Kinase 109 37 CK-MB (CK-2) Troponin I 0.748 NT-Pro-B Natriuret Pep 02/22/17 02/22/17 02/22/17 06:40 13:05 13:05 Creatine Kinase 36 CK-MB (CK-2) 1.52 1.63 Troponin I 0.031 0.060 NT-Pro-B Natriuret Pep 02/22/17 02/22/17 02/25/17 18:00 18:00 06:30 Creatine Kinase 30 CK-MB (CK-2) 1.41 Troponin I 0.047 NT-Pro-B Natriuret Pep 1510 H Impressions: Guidance Fluoroscopy 02/13/17 00:00 IMPRESSION: SUCCESSFUL PLACEMENT OF A 5 FR DUAL LUMEN 46 CM PICC IN THE LEFT BASILIC VEIN. Interventional Vascular Procedure 02/13/17 00:00 IMPRESSION: SUCCESSFUL PLACEMENT OF A 5 FR DUAL LUMEN 46 CM PICC IN THE LEFT BASILIC VEIN. PICC Line Insertion 02/13/17 00:00 IMPRESSION: SUCCESSFUL PLACEMENT OF A 5 FR DUAL LUMEN 46 CM PICC IN THE LEFT BASILIC VEIN. Chest X-Ray 02/27/17 09:00 IMPRESSION: No significant interval change. Findings as noted above Assessment & Plan - Diagnosis (1) Coronary artery disease Qualifiers: Coronary Disease-Associated Artery/Lesion type: [place] artery [place] vs. transplanted heart: [place] heart Associated angina: angina presence unspecified Qualified Code(s): I25.10 - Atherosclerotic heart disease of [place] coronary artery without angina pectoris (2) CHF (congestive heart failure) Qualifiers: Congestive heart failure type: systolic Congestive heart failure chronicity : chronic Qualified Code(s): I50.22 - Chronic systolic (congestive) heart failure Is this a current diagnosis for this admission?: Yes (3) COPD exacerbation Is this a current diagnosis for this admission?: Yes (4) Diabetes mellitus Qualifiers: Diabetes mellitus type: type 2 Diabetes mellitus complication status: with neurologic complications Diabetes mellitus complication detail: with polyneuropathy Diabetes mellitus senior living insulin use: with senior living use Qualified Code(s): E11.42 - Type 2 diabetes mellitus with diabetic polyneuropathy; Z79.4 - nursing home (current) use of insulin; Z79.4 - terminal worker ( current) use of insulin; Z79.4 - nursing home (current) use of insulin; Z79.4 - nursing home (current) use of insulin Is this a current diagnosis for this admission?: Yes (5) Chronic obstructive pulmonary disease with (acute) exacerbation Is this a current diagnosis for this admission?: Yes (6) Right lower lobe pneumonia Qualifiers: Pneumonia type: due to unspecified organism Qualified Code(s): J18.1 - Lobar pneumonia, unspecified organism Is this a current diagnosis for this admission?: Yes (7) Acute and chronic respiratory failure with hypercapnia Is this a current diagnosis for this admission?: Yes
[2017-03-02] MEDS: ONDANSETRON HCL INJ/PF 4 MG/2 ML SDV IV PRN (02:04)
[2017-03-02] MEDS: MORPHINE SULFATE 10 MG/ML INJ IV PRN (02:05)
[2017-03-02] MEDS: HYDROMORPHONE HCL INJ/PF 2 MG/ML AMPULE IV PRN ×3 (05:54→21:59)
[2017-03-02] MEDS ORDERED: MIDAZOLAM 2 MG/2 ML INJ IV PRN (12:03)
[2017-03-02] MEDS ORDERED: SIMETHICONE 80 MG TAB.CHEW PO PRN (15:57)
[2017-03-02] MEDS ORDERED: ALBUTEROL SULFATE HFA (90 MCG/PUFF) 8 GM MDI (1 MDI/ER DISP) IH PRN (15:57)
[2017-03-02] MEDS ORDERED: SPIRONOLACTONE 25 MG TABLET PO ONE (16:45)
--- NOTE | 2017-03-02 17:39 | PDOC PROGRESS REPORT ---
Subjective Progress Note for:: 03/02/17 Subjective:: Patient CARE is transitioned to hospice seen by the bedside Reason For Visit: PNEUMONIA,ACUTE HYPERCAPNIC RESPIRATORY Physical Exam Vital Signs: Temp Pulse Resp BP Pulse Ox 99.4 F 88 16 128/67 H 96 03/02/17 15:48 03/02/17 15:48 03/02/17 15:48 03/02/17 15:48 03/02/17 15:48 Intake & Output 03/01/17 03/02/17 03/03/17 06:59 06:59 06:59 Intake Total 0 0 600 Output Total 860 850 900 Balance -860 -850 -300 Murmur grade: 3 Results Laboratory Results: 02/25/17 06:30 02/28/17 05:00 02/09/17 02/09/17 02/22/17 00:37 00:37 06:40 Creatine Kinase 109 37 CK-MB (CK-2) Troponin I 0.748 NT-Pro-B Natriuret Pep 02/22/17 02/22/17 02/22/17 06:40 13:05 13:05 Creatine Kinase 36 CK-MB (CK-2) 1.52 1.63 Troponin I 0.031 0.060 NT-Pro-B Natriuret Pep 02/22/17 02/22/17 02/25/17 18:00 18:00 06:30 Creatine Kinase 30 CK-MB (CK-2) 1.41 Troponin I 0.047 NT-Pro-B Natriuret Pep 1510 H Impressions: Guidance Fluoroscopy 02/13/17 00:00 IMPRESSION: SUCCESSFUL PLACEMENT OF A 5 FR DUAL LUMEN 46 CM PICC IN THE LEFT BASILIC VEIN. Interventional Vascular Procedure 02/13/17 00:00 IMPRESSION: SUCCESSFUL PLACEMENT OF A 5 FR DUAL LUMEN 46 CM PICC IN THE LEFT BASILIC VEIN. PICC Line Insertion 02/13/17 00:00 IMPRESSION: SUCCESSFUL PLACEMENT OF A 5 FR DUAL LUMEN 46 CM PICC IN THE LEFT BASILIC VEIN. Chest X-Ray 02/27/17 09:00 IMPRESSION: No significant interval change. Findings as noted above Assessment & Plan - Diagnosis (1) Right lower lobe pneumonia Qualifiers: Pneumonia type: due to unspecified organism Qualified Code(s): J18.1 - Lobar pneumonia, unspecified organism Is this a current diagnosis for this admission?: Yes (2) Acute hypercapnic respiratory failure Is this a current diagnosis for this admission?: Yes (3) Chronic obstructive pulmonary disease Qualifiers: COPD type: unspecified COPD Qualified Code(s): J44.9 - Chronic obstructive pulmonary disease, unspecified Is this a current diagnosis for this admission?: Yes (4) Chronic obstructive pulmonary disease with (acute) exacerbation Is this a current diagnosis for this admission?: Yes (5) Diabetes mellitus Qualifiers: Diabetes mellitus type: type 2 Diabetes mellitus complication status: with neurologic complications Diabetes mellitus complication detail: with polyneuropathy Diabetes mellitus mcc insulin use: with [facility]cc use Qualified Code(s): E11.42 - Type 2 diabetes mellitus with diabetic polyneuropathy; Z79.4 - salvage determiner (current) use of insulin; Z79.4 - salvage determiner ( current) use of insulin; Z79.4 - salvage determiner (current) use of insulin; Z79.4 - salvage determiner (current) use of insulin Is this a current diagnosis for this admission?: Yes
--- NOTE | 2017-03-02 17:43 | PDOC PROGRESS REPORT ---
Subjective Progress Note for:: 03/01/17 Subjective:: Intubated and sedated Reason For Visit: PNEUMONIA,ACUTE HYPERCAPNIC RESPIRATORY Physical Exam Vital Signs: Temp Pulse Resp BP Pulse Ox 99.7 F 94 24 H 129/68 H 90 L 02/28/17 16:00 03/01/17 08:00 02/28/17 16:47 02/28/17 16:47 03/01/17 08:00 Intake & Output 02/28/17 03/01/17 03/02/17 06:59 06:59 06:59 Intake Total 1671 0 Output Total 2160 860 400 Balance -489 -860 -400 Weight 112.9 kg General appearance: PRESENT: no acute distress, disheveled, morbidly obese. ABSENT: cooperative, mild distress, obese, severe distress, thin Head exam: PRESENT: atraumatic, normocephalic Eye exam: PRESENT: conjunctiva pale. ABSENT: conjunctival injection, conjunctiva pink, nystagmus, periorbital swelling, scleral icterus Mouth exam: PRESENT: dry mucosa, neck supple, tongue midline. ABSENT: laceration, moist Neck exam: ABSENT: carotid bruit, JVD, lymphadenopathy, thyromegaly, tracheal deviation, tracheostomy Respiratory exam: PRESENT: decreased breath sounds, prolonged expiratory phas, rales, rhonchi, symmetrical, unlabored, wheezes. ABSENT: accessory muscle use, chest wall tenderness, clear to auscultation rolf, crackles, retraction, stridor , tachypnea Cardiovascular exam: PRESENT: RRR, +S1, +S2 Pulses: PRESENT: normal radial pulses GI/Abdominal exam: PRESENT: diminished bowel sounds, soft Gentrourinary exam: PRESENT: indwelling catheter Extremities exam: ABSENT: clubbing, full ROM, joint swelling Musculoskeletal exam: ABSENT: ambulatory, deformity, dislocation Neurological exam: PRESENT: awake. ABSENT: alert Skin exam: PRESENT: dry, warm Results Laboratory Results: 02/25/17 06:30 02/28/17 05:00 02/09/17 02/09/17 02/22/17 00:37 00:37 06:40 Creatine Kinase 109 37 CK-MB (CK-2) Troponin I 0.748 NT-Pro-B Natriuret Pep 02/22/17 02/22/17 02/22/17 06:40 13:05 13:05 Creatine Kinase 36 CK-MB (CK-2) 1.52 1.63 Troponin I 0.031 0.060 NT-Pro-B Natriuret Pep 02/22/17 02/22/17 02/25/17 18:00 18:00 06:30 Creatine Kinase 30 CK-MB (CK-2) 1.41 Troponin I 0.047 NT-Pro-B Natriuret Pep 1510 H Impressions: Guidance Fluoroscopy 02/13/17 00:00 IMPRESSION: SUCCESSFUL PLACEMENT OF A 5 FR DUAL LUMEN 46 CM PICC IN THE LEFT BASILIC VEIN. Interventional Vascular Procedure 02/13/17 00:00 IMPRESSION: SUCCESSFUL PLACEMENT OF A 5 FR DUAL LUMEN 46 CM PICC IN THE LEFT BASILIC VEIN. PICC Line Insertion 02/13/17 00:00 IMPRESSION: SUCCESSFUL PLACEMENT OF A 5 FR DUAL LUMEN 46 CM PICC IN THE LEFT BASILIC VEIN. Chest X-Ray 02/27/17 09:00 IMPRESSION: No significant interval change. Findings as noted above Assessment & Plan - Diagnosis (1) Acute hypercapnic respiratory failure Is this a current diagnosis for this admission?: Yes Plan: 24 h s/p extubation stable (2) COPD exacerbation Is this a current diagnosis for this admission?: Yes Plan: Improving (3) Right lower lobe pneumonia Qualifiers: Pneumonia type: due to unspecified organism Qualified Code(s): J18.1 - Lobar pneumonia, unspecified organism Is this a current diagnosis for this admission?: Yes (4) Acute combined systolic (congestive) and diastolic (congestive) heart failure Is this a current diagnosis for this admission?: Yes - Time Total Critical Time (Minutes): 35
--- NOTE | 2017-03-02 17:49 | PDOC PROGRESS REPORT ---
Subjective Progress Note for:: 03/02/17 Subjective:: awake confused Reason For Visit: PNEUMONIA,ACUTE HYPERCAPNIC RESPIRATORY Physical Exam Vital Signs: Temp Pulse Resp BP Pulse Ox 99.7 F 94 24 H 129/68 H 97 02/28/17 16:00 03/01/17 08:00 02/28/17 16:47 02/28/17 16:47 03/02/17 08:00 Intake & Output 03/01/17 03/02/17 03/03/17 06:59 06:59 06:59 Intake Total 0 0 Output Total 860 850 Balance -860 -850 General appearance: PRESENT: no acute distress, disheveled, morbidly obese. ABSENT: mild distress, obese, severe distress, thin Head exam: PRESENT: atraumatic, normocephalic Eye exam: PRESENT: conjunctiva pale. ABSENT: conjunctival injection, conjunctiva pink, nystagmus, periorbital swelling, scleral icterus Mouth exam: PRESENT: dry mucosa, neck supple, tongue midline. ABSENT: laceration, moist Neck exam: ABSENT: carotid bruit, JVD, lymphadenopathy, thyromegaly, tracheal deviation, tracheostomy Respiratory exam: PRESENT: decreased breath sounds, prolonged expiratory phas, rales, rhonchi, symmetrical, unlabored, wheezes. ABSENT: accessory muscle use, chest wall tenderness, clear to auscultation rolf, crackles, retraction, stridor , tachypnea Cardiovascular exam: PRESENT: RRR, +S1, +S2 Pulses: PRESENT: normal radial pulses GI/Abdominal exam: PRESENT: diminished bowel sounds, soft Gentrourinary exam: PRESENT: indwelling catheter Extremities exam: ABSENT: clubbing, joint swelling Musculoskeletal exam: ABSENT: ambulatory, deformity, dislocation Neurological exam: PRESENT: awake. ABSENT: alert Focused psych exam: PRESENT: delusional Skin exam: PRESENT: dry, warm Results Laboratory Results: 02/25/17 06:30 02/28/17 05:00 02/09/17 02/09/17 02/22/17 00:37 00:37 06:40 Creatine Kinase 109 37 CK-MB (CK-2) Troponin I 0.748 NT-Pro-B Natriuret Pep 02/22/17 02/22/17 02/22/17 06:40 13:05 13:05 Creatine Kinase 36 CK-MB (CK-2) 1.52 1.63 Troponin I 0.031 0.060 NT-Pro-B Natriuret Pep 02/22/17 02/22/17 02/25/17 18:00 18:00 06:30 Creatine Kinase 30 CK-MB (CK-2) 1.41 Troponin I 0.047 NT-Pro-B Natriuret Pep 1510 H Impressions: Guidance Fluoroscopy 02/13/17 00:00 IMPRESSION: SUCCESSFUL PLACEMENT OF A 5 FR DUAL LUMEN 46 CM PICC IN THE LEFT BASILIC VEIN. Interventional Vascular Procedure 02/13/17 00:00 IMPRESSION: SUCCESSFUL PLACEMENT OF A 5 FR DUAL LUMEN 46 CM PICC IN THE LEFT BASILIC VEIN. PICC Line Insertion 02/13/17 00:00 IMPRESSION: SUCCESSFUL PLACEMENT OF A 5 FR DUAL LUMEN 46 CM PICC IN THE LEFT BASILIC VEIN. Chest X-Ray 02/27/17 09:00 IMPRESSION: No significant interval change. Findings as noted above Assessment & Plan - Diagnosis (1) Acute hypercapnic respiratory failure Is this a current diagnosis for this admission?: Yes Plan: stable comfot care status retracted resume DNR,nutrition,labs (2) COPD exacerbation Is this a current diagnosis for this admission?: Yes Plan: Improving (3) Right lower lobe pneumonia Qualifiers: Pneumonia type: due to unspecified organism Qualified Code(s): J18.1 - Lobar pneumonia, unspecified organism Is this a current diagnosis for this admission?: Yes Plan: Etiology undetermined positive cultures and blood and urine but not sputum 02/09/17 02:14 Urine Culture - Final Clean Catch Midstream Escherichia Coli Staph Coagulase Negative 02/08/17 19:12 Blood Culture - Final Blood Peptostreptococcus Species 02/08/17 19:03 Blood Culture - Final Blood NO GROWTH IN 5 DAYS (4) Acute combined systolic (congestive) and diastolic (congestive) heart failure Is this a current diagnosis for this admission?: Yes Plan: unchanged - Time Total Critical Time (Minutes): 45
[2017-03-02] MEDS: METFORMIN HCL 500 MG TABLET PO SCH (17:51)
[2017-03-03] MEDS: HYDROMORPHONE HCL INJ/PF 2 MG/ML AMPULE IV PRN ×4 (01:58→20:01)
[2017-03-03 06:32] LABS: ARTERIAL BLOOD BASE EXCESS 11.7 mmol/L; ARTERIAL BLOOD H2CO3 2.66 mmol/L (1.05-1.35); ARTERIAL BLOOD HCO3 42.1 mmol/L (20-26); ARTERIAL BLOOD O2 SATURATION 91.7 % (94-98); ARTERIAL BLOOD PO2 71.8 mmHg (80-100); ARTERIAL BLOOD TOTAL CO2 44.8 mmol/L (21-25)
[2017-03-03 06:40] LABS: ARTERIAL BLOOD PCO2 88.4 mmHg (35-45)
[2017-03-03] MEDS ORDERED: ALBUTEROL SULFATE HFA (90 MCG/PUFF) 200 PUFF/8.5 GM MDI IH PRN (06:59)
[2017-03-03 07:29] LABS: ARTERIAL BLOOD FIO2 5L
[2017-03-03 08:12] LABS: ABSOLUTE EOSINOPHILS # (AUTO) 0.7 10^3/uL (0.0-0.6); ABSOLUTE LYMPHOCYTES (AUTO) 0.9 10^3/uL (0.5-4.7); ABSOLUTE MONOCYTES (AUTO) 1.1 10^3/uL (0.1-1.4); ABSOLUTE NEUT (AUTO) 7.6 10^3/uL (1.7-8.2); BASOPHILS % (AUTO) 0.1 % (0-2); EOSINOPHILS % (AUTO) 6.9 % (0-6); HEMATOCRIT 42.3 % (36.0-47.0); HEMOGLOBIN 13.6 g/dL (12.0-15.5); LYMPHOCYTES % (AUTO) 8.6 % (13-45); MEAN CORPUSCULAR HEMOGLOBIN 28.7 pg (27.0-33.4); MEAN CORPUSCULAR HGB CONC 32.2 g/dL (32.0-36.0); MEAN CORPUSCULAR VOLUME 89 fl (80-97); MONOCYTES % (AUTO) 10.5 % (3-13); PLATELET COUNT 268 10^3/uL (150-450); RED BLOOD COUNT 4.75 10^6/uL (3.72-5.28); RED CELL DISTRIBUTION WIDTH 19.1 % (11.5-14.0); SEGMENTED NEUTROPHILS % (AUTO) 73.9 % (42-78); TOTAL CELLS COUNTED % (AUTO) 100 %; WHITE BLOOD COUNT 10.4 10^3/uL (4.0-10.5)
[2017-03-03 08:32] LABS: ALANINE AMINOTRANSFERASE 48 U/L (9-52); ALBUMIN 3.8 g/dL (3.5-5.0); ALKALINE PHOSPHATASE 59 U/L (38-126); ANION GAP 8 (5-19); ASPARTATE AMINO TRANSFERASE 23 U/L (14-36); BILIRUBIN,DIRECT 0.2 mg/dL (0.0-0.4); BILIRUBIN,TOTAL 0.6 mg/dL (0.2-1.3); BLOOD UREA NITROGEN 41 mg/dL (7-20); CALCIUM 9.4 mg/dL (8.4-10.2); CHLORIDE 96 mmol/L (98-107); GLUCOSE 166 mg/dL (75-110); MAGNESIUM 2.2 mg/dL (1.6-2.3); POTASSIUM 4.8 mmol/L (3.6-5.0); SODIUM 143.5 mmol/L (137-145); TOTAL PROTEIN 6.2 g/dL (6.3-8.2)
--- NOTE | 2017-03-03 08:42 | RADIOLOGY REPORT (SQ) ---
EXAM DESCRIPTION: CHEST SINGLE VIEW COMPLETED DATE/TIME: 03/03/2017 8:00 am REASON FOR STUDY: acute/chronic resp failure COMPARISON: 02/27/2017 NUMBER OF VIEWS: One view. TECHNIQUE: Single frontal radiographic image of the chest acquired. LIMITATIONS: None. FINDINGS: LUNGS AND PLEURA: Improved aeration left lung. No pneumothorax. MEDIASTINUM AND HEART: Stable heart size and mediastinal structures. SUPPORT DEVICES: Unchanged position of left PICC line. Interval removal of nasogastric and endotrach eal tubes. BONY STRUCTURES: No acute findings. HARDWARE: None. OTHER: No other significant finding. IMPRESSION: Stable chest status postextubation.
[2017-03-03 09:12] LABS: CARBON DIOXIDE 40 mmol/L (22-30)
[2017-03-03] MEDS: METFORMIN HCL 500 MG TABLET PO SCH ×2 (10:16→17:28)
[2017-03-03] MEDS: SPIRONOLACTONE 25 MG TABLET PO SCH (11:31)
--- NOTE | 2017-03-03 13:23 | PDOC PROGRESS REPORT ---
Subjective Progress Note for:: 03/03/17 Subjective:: awake confused Reason For Visit: PNEUMONIA,ACUTE HYPERCAPNIC RESPIRATORY Physical Exam Vital Signs: Temp Pulse Resp BP Pulse Ox 99.4 F 86 12 115/53 L 97 03/03/17 07:18 03/03/17 07:18 03/03/17 07:18 03/03/17 07:18 03/03/17 09:04 Intake & Output 03/02/17 03/03/17 03/04/17 06:59 06:59 06:59 Intake Total 0 1320 Output Total 850 1300 Balance -850 20 Weight 111.8 kg General appearance: PRESENT: no acute distress, cooperative, disheveled, morbidly obese. ABSENT: mild distress, obese, severe distress, thin Head exam: PRESENT: atraumatic, normocephalic Eye exam: PRESENT: conjunctiva pale, EOMI. ABSENT: conjunctival injection, conjunctiva pink, nystagmus, periorbital swelling, scleral icterus Mouth exam: PRESENT: dry mucosa, neck supple, tongue midline. ABSENT: laceration, moist Neck exam: ABSENT: carotid bruit, JVD, lymphadenopathy, thyromegaly, tracheal deviation, tracheostomy Respiratory exam: PRESENT: decreased breath sounds, prolonged expiratory phas, rhonchi, symmetrical, unlabored, wheezes. ABSENT: accessory muscle use, chest wall tenderness, clear to auscultation rolf, crackles, retraction, stridor, tachypnea Cardiovascular exam: PRESENT: RRR, +S1, +S2 Pulses: PRESENT: normal radial pulses GI/Abdominal exam: PRESENT: diminished bowel sounds, soft Extremities exam: ABSENT: clubbing, joint swelling Musculoskeletal exam: ABSENT: deformity, dislocation Neurological exam: PRESENT: awake. ABSENT: alert Skin exam: PRESENT: dry, warm Results Laboratory Results: 03/03/17 07:41 03/03/17 07:41 03/03/17 03/03/17 03/03/17 06:10 07:41 07:41 WBC 10.4 RBC 4.75 Hgb 13.6 Hct 42.3 MCV 89 MCH 28.7 MCHC 32.2 RDW 19.1 H Plt Count 268 Seg Neutrophils % 73.9 Lymphocytes % 8.6 L Monocytes % 10.5 Eosinophils % 6.9 H Basophils % 0.1 Absolute Neutrophils 7.6 Absolute Lymphocytes 0.9 Absolute Monocytes 1.1 Absolute Eosinophils 0.7 H Absolute Basophils 0.0 Carbonic Acid 2.66 H HCO3/H2CO3 Ratio 15:1 ABG pH 7.30 L ABG pCO2 88.4 H* ABG pO2 71.8 L ABG HCO3 42.1 H ABG O2 Saturation 91.7 L ABG Base Excess 11.7 FiO2 5L Sodium 143.5 Potassium 4.8 Chloride 96 L Carbon Dioxide 40 H* Anion Gap 8 BUN 41 H Creatinine 0.64 Est GFR ( Amer) > 60 Est GFR (Non-Af Amer) > 60 Glucose 166 H Calcium 9.4 Magnesium 2.2 Total Bilirubin 0.6 AST 23 ALT 48 Alkaline Phosphatase 59 Total Protein 6.2 L Albumin 3.8 02/09/17 02/09/17 02/22/17 00:37 00:37 06:40 Creatine Kinase 109 37 CK-MB (CK-2) Troponin I 0.748 NT-Pro-B Natriuret Pep 02/22/17 02/22/17 02/22/17 06:40 13:05 13:05 Creatine Kinase 36 CK-MB (CK-2) 1.52 1.63 Troponin I 0.031 0.060 NT-Pro-B Natriuret Pep 02/22/17 02/22/17 02/25/17 18:00 18:00 06:30 Creatine Kinase 30 CK-MB (CK-2) 1.41 Troponin I 0.047 NT-Pro-B Natriuret Pep 1510 H Impressions: Guidance Fluoroscopy 02/13/17 00:00 IMPRESSION: SUCCESSFUL PLACEMENT OF A 5 FR DUAL LUMEN 46 CM PICC IN THE LEFT BASILIC VEIN. Interventional Vascular Procedure 02/13/17 00:00 IMPRESSION: SUCCESSFUL PLACEMENT OF A 5 FR DUAL LUMEN 46 CM PICC IN THE LEFT BASILIC VEIN. PICC Line Insertion 02/13/17 00:00 IMPRESSION: SUCCESSFUL PLACEMENT OF A 5 FR DUAL LUMEN 46 CM PICC IN THE LEFT BASILIC VEIN. Chest X-Ray 03/03/17 06:00 IMPRESSION: Stable chest status postextubation. Assessment & Plan - Diagnosis (1) Acute hypercapnic respiratory failure Is this a current diagnosis for this admission?: Yes Plan: stable comfort care status retracted resume DNR,nutrition,labs (2) COPD exacerbation Is this a current diagnosis for this admission?: Yes Plan: stablle (3) Right lower lobe pneumonia Qualifiers: Pneumonia type: due to unspecified organism Qualified Code(s): J18.1 - Lobar pneumonia, unspecified organism Is this a current diagnosis for this admission?: Yes Plan: Etiology undetermined positive cultures and blood and urine but not sputum 02/09/17 02:14 Urine Culture - Final Clean Catch Midstream Escherichia Coli Staph Coagulase Negative 02/08/17 19:12 Blood Culture - Final Blood Peptostreptococcus Species 02/08/17 19:03 Blood Culture - Final Blood NO GROWTH IN 5 DAYS (4) Acute combined systolic (congestive) and diastolic (congestive) heart failure Is this a current diagnosis for this admission?: Yes Plan: unchanged
[2017-03-03] MEDS: ONDANSETRON HCL INJ/PF 4 MG/2 ML SDV IV PRN ×2 (13:48→20:02)
--- NOTE | 2017-03-03 21:44 | PDOC PROGRESS REPORT ---
Subjective Progress Note for:: 03/03/17 Subjective:: Patient seen by the bedside she is alert and oriented Reason For Visit: PNEUMONIA,ACUTE HYPERCAPNIC RESPIRATORY Physical Exam Vital Signs: Temp Pulse Resp BP Pulse Ox 99.5 F 93 17 113/65 95 03/03/17 19:23 03/03/17 19:23 03/03/17 19:23 03/03/17 19:23 03/03/17 19:23 Intake & Output 03/02/17 03/03/17 03/04/17 06:59 06:59 06:59 Intake Total 0 1320 300 Output Total 850 1300 300 Balance -850 20 0 Weight 111.8 kg General appearance: PRESENT: no acute distress Eye exam: PRESENT: PERRLA Respiratory exam: PRESENT: clear to auscultation rolf Cardiovascular exam: PRESENT: +S1, +S2 Murmur grade: 3 GI/Abdominal exam: PRESENT: soft Neurological exam: PRESENT: alert Results Laboratory Results: 03/03/17 07:41 03/03/17 07:41 03/03/17 03/03/17 03/03/17 06:10 07:41 07:41 WBC 10.4 RBC 4.75 Hgb 13.6 Hct 42.3 MCV 89 MCH 28.7 MCHC 32.2 RDW 19.1 H Plt Count 268 Seg Neutrophils % 73.9 Lymphocytes % 8.6 L Monocytes % 10.5 Eosinophils % 6.9 H Basophils % 0.1 Absolute Neutrophils 7.6 Absolute Lymphocytes 0.9 Absolute Monocytes 1.1 Absolute Eosinophils 0.7 H Absolute Basophils 0.0 Carbonic Acid 2.66 H HCO3/H2CO3 Ratio 15:1 ABG pH 7.30 L ABG pCO2 88.4 H* ABG pO2 71.8 L ABG HCO3 42.1 H ABG O2 Saturation 91.7 L ABG Base Excess 11.7 FiO2 5L Sodium 143.5 Potassium 4.8 Chloride 96 L Carbon Dioxide 40 H* Anion Gap 8 BUN 41 H Creatinine 0.64 Est GFR ( Amer) > 60 Est GFR (Non-Af Amer) > 60 Glucose 166 H Calcium 9.4 Magnesium 2.2 Total Bilirubin 0.6 AST 23 ALT 48 Alkaline Phosphatase 59 Total Protein 6.2 L Albumin 3.8 02/09/17 02/09/17 02/22/17 00:37 00:37 06:40 Creatine Kinase 109 37 CK-MB (CK-2) Troponin I 0.748 NT-Pro-B Natriuret Pep 02/22/17 02/22/17 02/22/17 06:40 13:05 13:05 Creatine Kinase 36 CK-MB (CK-2) 1.52 1.63 Troponin I 0.031 0.060 NT-Pro-B Natriuret Pep 02/22/17 02/22/17 02/25/17 18:00 18:00 06:30 Creatine Kinase 30 CK-MB (CK-2) 1.41 Troponin I 0.047 NT-Pro-B Natriuret Pep 1510 H Impressions: Guidance Fluoroscopy 02/13/17 00:00 IMPRESSION: SUCCESSFUL PLACEMENT OF A 5 FR DUAL LUMEN 46 CM PICC IN THE LEFT BASILIC VEIN. Interventional Vascular Procedure 02/13/17 00:00 IMPRESSION: SUCCESSFUL PLACEMENT OF A 5 FR DUAL LUMEN 46 CM PICC IN THE LEFT BASILIC VEIN. PICC Line Insertion 02/13/17 00:00 IMPRESSION: SUCCESSFUL PLACEMENT OF A 5 FR DUAL LUMEN 46 CM PICC IN THE LEFT BASILIC VEIN. Chest X-Ray 03/03/17 06:00 IMPRESSION: Stable chest status postextubation. Assessment & Plan - Diagnosis (1) Right lower lobe pneumonia Qualifiers: Pneumonia type: due to unspecified organism Qualified Code(s): J18.1 - Lobar pneumonia, unspecified organism Is this a current diagnosis for this admission?: Yes (2) Acute hypercapnic respiratory failure Is this a current diagnosis for this admission?: Yes (3) Chronic obstructive pulmonary disease Qualifiers: COPD type: unspecified COPD Qualified Code(s): J44.9 - Chronic obstructive pulmonary disease, unspecified Is this a current diagnosis for this admission?: Yes (4) Chronic obstructive pulmonary disease with (acute) exacerbation Is this a current diagnosis for this admission?: Yes (5) Diabetes mellitus Qualifiers: Diabetes mellitus type: type 2 Diabetes mellitus complication status: with neurologic complications Diabetes mellitus complication detail: with polyneuropathy Diabetes mellitus equipment operator intermodal yard insulin use: with equipment operator intermodal yard use Qualified Code(s): E11.42 - Type 2 diabetes mellitus with diabetic polyneuropathy; Z79.4 - ad terminal makeup operator (current) use of insulin; Z79.4 - USP ( current) use of insulin; Z79.4 - ad terminal makeup operator (current) use of insulin; Z79.4 - ad terminal makeup operator (current) use of insulin Is this a current diagnosis for this admission?: Yes
[2017-03-04] MEDS: HYDROMORPHONE HCL INJ/PF 2 MG/ML AMPULE IV PRN ×5 (01:45→20:24)
[2017-03-04] MEDS: ONDANSETRON HCL INJ/PF 4 MG/2 ML SDV IV PRN ×2 (01:48→11:41)
[2017-03-04] MEDS: SPIRONOLACTONE 25 MG TABLET PO SCH (09:23)
[2017-03-04] MEDS: METFORMIN HCL 500 MG TABLET PO SCH ×2 (09:23→16:23)
--- NOTE | 2017-03-04 22:42 | PDOC PROGRESS REPORT ---
Subjective Progress Note for:: 03/04/17 Subjective:: Patient seen by the bedside presently palliative care/comfort care Reason For Visit: PNEUMONIA,ACUTE HYPERCAPNIC RESPIRATORY Physical Exam Vital Signs: Temp Pulse Resp BP Pulse Ox 98.4 F 73 20 126/69 H 98 03/04/17 19:31 03/04/17 19:31 03/04/17 19:31 03/04/17 19:31 03/04/17 19:31 Intake & Output 03/03/17 03/04/17 03/05/17 06:59 06:59 06:59 Intake Total 1320 420 660 Output Total 1300 575 Balance 20 -155 660 Weight 111.8 kg 111.3 kg General appearance: PRESENT: no acute distress Eye exam: PRESENT: PERRLA Respiratory exam: PRESENT: clear to auscultation rolf Cardiovascular exam: PRESENT: +S1, +S2 Murmur grade: 3 Results Laboratory Results: 03/03/17 07:41 03/03/17 07:41 02/09/17 02/09/17 02/22/17 00:37 00:37 06:40 Creatine Kinase 109 37 CK-MB (CK-2) Troponin I 0.748 NT-Pro-B Natriuret Pep 02/22/17 02/22/17 02/22/17 06:40 13:05 13:05 Creatine Kinase 36 CK-MB (CK-2) 1.52 1.63 Troponin I 0.031 0.060 NT-Pro-B Natriuret Pep 02/22/17 02/22/17 02/25/17 18:00 18:00 06:30 Creatine Kinase 30 CK-MB (CK-2) 1.41 Troponin I 0.047 NT-Pro-B Natriuret Pep 1510 H Impressions: Guidance Fluoroscopy 02/13/17 00:00 IMPRESSION: SUCCESSFUL PLACEMENT OF A 5 FR DUAL LUMEN 46 CM PICC IN THE LEFT BASILIC VEIN. Interventional Vascular Procedure 02/13/17 00:00 IMPRESSION: SUCCESSFUL PLACEMENT OF A 5 FR DUAL LUMEN 46 CM PICC IN THE LEFT BASILIC VEIN. PICC Line Insertion 02/13/17 00:00 IMPRESSION: SUCCESSFUL PLACEMENT OF A 5 FR DUAL LUMEN 46 CM PICC IN THE LEFT BASILIC VEIN. Chest X-Ray 03/03/17 06:00 IMPRESSION: Stable chest status postextubation. Assessment & Plan - Diagnosis (1) Right lower lobe pneumonia Qualifiers: Pneumonia type: due to unspecified organism Qualified Code(s): J18.1 - Lobar pneumonia, unspecified organism Is this a current diagnosis for this admission?: Yes (2) Acute hypercapnic respiratory failure Is this a current diagnosis for this admission?: Yes (3) Chronic obstructive pulmonary disease Qualifiers: COPD type: unspecified COPD Qualified Code(s): J44.9 - Chronic obstructive pulmonary disease, unspecified Is this a current diagnosis for this admission?: Yes (4) Chronic obstructive pulmonary disease with (acute) exacerbation Is this a current diagnosis for this admission?: Yes (5) Diabetes mellitus Qualifiers: Diabetes mellitus type: type 2 Diabetes mellitus complication status: with neurologic complications Diabetes mellitus complication detail: with polyneuropathy Diabetes mellitus watermaster insulin use: with watermaster use Qualified Code(s): E11.42 - Type 2 diabetes mellitus with diabetic polyneuropathy; Z79.4 - joint terminal attack controller (current) use of insulin; Z79.4 - skilled nursing ( current) use of insulin; Z79.4 - joint terminal attack controller (current) use of insulin; Z79.4 - joint terminal attack controller (current) use of insulin Is this a current diagnosis for this admission?: Yes
--- NOTE | 2017-03-04 23:27 | Progress Note ---
Provider Note Provider Note: Palliative Care consult visit note. Visit 03/04/17 12:15 PM and 2: 25 PM Attempted to visit patient x 2 this afternoon. Both times, she was asleep in her bed, comfortable with no apparent distress. She has been admitted for RLL pneumonia and has had recent admissions for respiratory distress this past year, the last in December. She has been debilitated with COPD and DM for some time and has needed care, unable to live independently. Chart notes state patient is resident of [facility] and will be going back there with hospice support. No family at hospital today. Will try to visit with patient tomorrow for support and symptom review.
[2017-03-05] MEDS: HYDROMORPHONE HCL INJ/PF 2 MG/ML AMPULE IV PRN ×6 (00:23→21:42)
[2017-03-05] MEDS: METFORMIN HCL 500 MG TABLET PO SCH ×2 (08:41→16:30)
[2017-03-05] MEDS: SPIRONOLACTONE 25 MG TABLET PO SCH (09:56)
[2017-03-05] MEDS: ONDANSETRON HCL INJ/PF 4 MG/2 ML SDV IV PRN (13:49)
--- NOTE | 2017-03-05 16:55 | PDOC PROGRESS REPORT ---
Subjective Progress Note for:: 03/05/17 Subjective:: Patient is alert but confused Reason For Visit: PNEUMONIA,ACUTE HYPERCAPNIC RESPIRATORY Physical Exam Vital Signs: Temp Pulse Resp BP Pulse Ox 98.6 F 74 16 110/52 L 96 03/05/17 15:38 03/05/17 15:38 03/05/17 15:38 03/05/17 15:38 03/05/17 15:38 Intake & Output 03/04/17 03/05/17 03/06/17 06:59 06:59 06:59 Intake Total 420 1020 Output Total 575 200 Balance -155 820 Weight 111.3 kg 111 kg General appearance: PRESENT: no acute distress Respiratory exam: PRESENT: clear to auscultation rolf Cardiovascular exam: PRESENT: +S1, +S2 Murmur grade: 3 GI/Abdominal exam: PRESENT: soft Results Laboratory Results: 03/03/17 07:41 03/03/17 07:41 02/09/17 02/09/17 02/22/17 00:37 00:37 06:40 Creatine Kinase 109 37 CK-MB (CK-2) Troponin I 0.748 NT-Pro-B Natriuret Pep 02/22/17 02/22/17 02/22/17 06:40 13:05 13:05 Creatine Kinase 36 CK-MB (CK-2) 1.52 1.63 Troponin I 0.031 0.060 NT-Pro-B Natriuret Pep 02/22/17 02/22/17 02/25/17 18:00 18:00 06:30 Creatine Kinase 30 CK-MB (CK-2) 1.41 Troponin I 0.047 NT-Pro-B Natriuret Pep 1510 H Impressions: Guidance Fluoroscopy 02/13/17 00:00 IMPRESSION: SUCCESSFUL PLACEMENT OF A 5 FR DUAL LUMEN 46 CM PICC IN THE LEFT BASILIC VEIN. Interventional Vascular Procedure 02/13/17 00:00 IMPRESSION: SUCCESSFUL PLACEMENT OF A 5 FR DUAL LUMEN 46 CM PICC IN THE LEFT BASILIC VEIN. PICC Line Insertion 02/13/17 00:00 IMPRESSION: SUCCESSFUL PLACEMENT OF A 5 FR DUAL LUMEN 46 CM PICC IN THE LEFT BASILIC VEIN. Chest X-Ray 03/03/17 06:00 IMPRESSION: Stable chest status postextubation. Assessment & Plan - Diagnosis (1) Right lower lobe pneumonia Qualifiers: Pneumonia type: due to unspecified organism Qualified Code(s): J18.1 - Lobar pneumonia, unspecified organism Is this a current diagnosis for this admission?: Yes (2) Acute hypercapnic respiratory failure Is this a current diagnosis for this admission?: Yes (3) Chronic obstructive pulmonary disease Qualifiers: COPD type: unspecified COPD Qualified Code(s): J44.9 - Chronic obstructive pulmonary disease, unspecified Is this a current diagnosis for this admission?: Yes (4) Chronic obstructive pulmonary disease with (acute) exacerbation Is this a current diagnosis for this admission?: Yes (5) Diabetes mellitus Qualifiers: Diabetes mellitus type: type 2 Diabetes mellitus complication status: with neurologic complications Diabetes mellitus complication detail: with polyneuropathy Diabetes mellitus long term care administrator insulin use: with assisted use Qualified Code(s): E11.42 - Type 2 diabetes mellitus with diabetic polyneuropathy; Z79.4 - prison (current) use of insulin; Z79.4 - local company intermodal truck driver ( current) use of insulin; Z79.4 - prison (current) use of insulin; Z79.4 - local company intermodal truck driver (current) use of insulin Is this a current diagnosis for this admission?: Yes
[2017-03-05] MEDS: NORMAL SALINE 10 ML SDV (SCHEDULED) IV SCH (21:42)
--- NOTE | 2017-03-05 23:35 | Palliative Consultation Report ---
Consultation From:: ABELARDO VENTURA Consult Reason: acute/chronic hypoxic & hypercapnic resp failure - HPI HPI: Palliative Care Visit 03/05/17 2:05- 2:40 PM Appreciate palliative care consult with this 66 year old woman who has been admitted on 02/08/17 from [facility] due to respiratory distress. She was admitted with RLL pneumonia and required Bipap to maintain adequate oxygenation. She has comorbid conditions of COPD and DM. SHe has been resident of [facility] for some time. Her last hospital admission was 01/15/17. Ms. Loza is breathing easily now on oxygen per N/C. She is very weak, and has to have help movng in the bed and has a baldwin catheter. She is awake today and asked me to sit down so we could talk. She says she has some pain "all over", but it is controlled with the pain medication she is getting. Patient is able to pronounce her words well and can make sentences. But she looses track of what she is saying very easily. She repeats "I am not crazy " but she cannot stay focused on what she is asking or talking about. Eventually she let me know that she wonders how long she will be at [facility] in rehab. I explained that her rehab time would be dependent on how well she progresses and is able to work with therapy. She says she understands that answer but then repeats the question. While Ms. Loza is talking, she is having what appear to be involuntary movements of her arms, legs and shoulders. She denies pain and says she is having some itching on her back. She has a slight macular rash on her upper chest area, but none on her back,. Powder applied and patient stated relief. Patient is aware she is going back to the [facility], but says she thinks she can get better and go home with hjer daughter. Ms. Loza has DNR in place and I did not discuss this with her as her mentation does not seem to be good enough to discuss anything of this importance and I id not want to upset her. Onset: Just prior to arrival Quality of Pain: Achy Severity: Moderate Associated Symptoms: Shortness of breath, Weakness Exacerbated by: Movement Past Medical History(Consults) - General Information Source: [facility] Records Home Medications: Albuterol Sulfate [Proair HFA] 2 puff IH Q4 PRN 01/07/17 Aspirin [Aspirin 81 mg Chewable Tablet] 81 mg PO DAILY 01/07/17 Duloxetine HCl [Cymbalta] 60 mg PO DAILY 01/07/17 Insulin Detemir [Levemir Flextouch] 50 unit SQ BID 01/07/17 Magnesium Oxide 400 mg PO DAILY 01/07/17 Metformin HCl 500 mg PO WSUPPER 01/07/17 Simethicone [Gas Relief 80] 80 mg PO MEALSHS PRN 01/07/17 Spironolactone [Aldactone 25 mg Tablet] 12.5 mg PO DAILY 01/07/17 Cyanocobalamin (Vitamin B-12) [Vitamin B-12 Inj 1000 Mcg/1 ml Vial] 1,000 mcg SUBCUT Q7D #1000 vial 01/15/17 Tramadol HCl [Ultram] 50 mg PO Q6HP PRN #120 tablet 01/15/17 Tiotropium [place] [Spiriva] 2 puff IH DAILY 02/08/17 Allergies/Adverse Reactions: codeine [Codeine] Adverse Reaction (Unknown, Verified 08/23/16 08:03) - Social History Family History: CAD, Hypertension, Other - Alzheimer's, renal failure Parental Family History Reviewed: No Children Family History Reviewed: No Sibling(s) Family History Reviewed.: No Smoking Status: Former Smoker Cigarettes Packs Per Day: 1 Number of Years Smokin Frequency of Alcohol Use: None Hx Recreational Drug Use: No Drugs: None Hx Prescription Drug Abuse: No - Past Medical History Cardiac Medical History: Reports: Hx Congestive Heart Failure, Hx Coronary Artery Disease, Hx Hypercholesterolemia, Hx Hypertension, Hx Peripheral Vascular Disease Denies: Hx Heart Murmur Pulmonary Medical History: Reports: Hx Asthma, Hx Bronchitis, Hx COPD, Hx Respiratory Failure, Hx Sleep Apnea Denies: Hx Tuberculosis Neurological Medical History: Reports: Hx Migraine. Denies: Hx Seizures Endocrine Medical History: Reports: Hx Diabetes Mellitus Type 1, Hx Diabetes Mellitus Type 2 Renal/ Medical History: Reports: Hx Ovarian Cysts. Denies: Hx Peritoneal Dialysis Malignancy Medical History: Reports: None GI Medical History: Reports: Hx Gastritis, Hx Ulcer. Denies: Hx Cirrhosis, Hx Diverticulitis, Hx Pancreatitis, Hx Ulcerative Colitis Musculoskeltal Medical History: Reports Hx Arthritis, Reports Hx Fibromyalgia, Reports Hx Musculoskeletal Deformity, Reports Hx Musculoskeletal Trauma Skin Medical History: Denies Hx Psoriasis Psychiatric Medical History: Reports: Hx Anxiety, Hx Depression Denies: Hx Attention Deficit Hyperactivity Disorder Traumatic Medical History: Reports: Hx Fractures - pinkie finger. Denies: Hx Traumatic Brain Injury Infectious Medical History: Reports: Hx C-Diff, Hx MRSA Hematology: Denies: Sickle Cell Disease - Surgical History Past Surgical History: Reports: Hx Appendectomy, Hx Cardiac Catheterization, Hx Cholecystectomy, Hx Coronary Stent, Hx Hysterectomy, Hx Orthopedic Surgery - right shoulder, Hx Tubal Ligation, Hx Vascular Surgery - Immunizations Immunizations up to date: Yes Review of systems Constitutional: Weakness, Recent illness Cardiovascular: Palpitations, Orthopnea Respiratory: Short of breath Musculoskeltal: Joint pain Skin: Dryness Neurological/Psychological: Anxiety, Weakness Ojective:Exam Vital Signs: Temp Pulse Resp BP Pulse Ox 99.0 F 80 17 116/61 95 03/05/17 19:29 03/05/17 19:29 03/05/17 19:29 03/05/17 19:29 03/05/17 19:29 Intake & Output 03/04/17 03/05/17 03/06/17 06:59 06:59 06:59 Intake Total 420 1020 118 Output Total 575 200 275 Balance -155 820 -157 Weight 111.3 kg 111 kg - General General Appearance: Alert, Anxious In distress: Mild - HEENT Head: Normocephalic Eyes: Normal Conjunctiva: Normal Pupils: PERRLA - Back Back: Normal - Respiratory Chest Status: Chest mass Breath sounds: Rhonchi, Wheezing - Cardiovascular Rhythm: Regular - Abdominal Distension: No distension Tenderness: Nontender - Neurological Cognition: Short term memory loss Orientation: AAOx4 Speech: Normal Cranial nerves: Normal - Psychological Associated symptoms: Anxious, Confused Objective-Diagnostic Laboratory: 03/03/17 07:41 03/03/17 07:41 02/09/17 02/09/17 02/22/17 00:37 00:37 06:40 Creatine Kinase 109 37 CK-MB (CK-2) Troponin I 0.748 NT-Pro-B Natriuret Pep 02/22/17 02/22/17 02/22/17 06:40 13:05 13:05 Creatine Kinase 36 CK-MB (CK-2) 1.52 1.63 Troponin I 0.031 0.060 NT-Pro-B Natriuret Pep 02/22/17 02/22/17 02/25/17 18:00 18:00 06:30 Creatine Kinase 30 CK-MB (CK-2) 1.41 Troponin I 0.047 NT-Pro-B Natriuret Pep 1510 H Plan and Recommendation Plan and Recommendation: Plan is documented that patient will be returning to [facility] with hospice to support. No recommendations at this time for changes as patient is comfortable. She is talking and is making sentences, but cannot connect thoughts well. Will need SNF as patient is total care and will be too difficult to care for at home with only one family member. She has been in the hospital for an extended period now and was released less than thirty days before this admission. Hospice with [facility] staff can proably keep her comfortable at SNF and prevent frequent admissions. Thank you for consultation request. Will try to contact daughter for emotional support. - Time Spent with Patient Time spent with patient: 30 to 40 Minutes Time: 35 min
[2017-03-06] MEDS: HYDROMORPHONE HCL INJ/PF 2 MG/ML AMPULE IV PRN ×5 (01:31→20:18)
[2017-03-06] MEDS: ONDANSETRON HCL INJ/PF 4 MG/2 ML SDV IV PRN (01:31)
[2017-03-06] MEDS: METFORMIN HCL 500 MG TABLET PO SCH ×2 (08:02→16:12)
[2017-03-06] MEDS: SPIRONOLACTONE 25 MG TABLET PO SCH (09:55)
[2017-03-06] MEDS: NORMAL SALINE 10 ML SDV (SCHEDULED) IV SCH ×2 (09:57→22:03)
--- NOTE | 2017-03-06 17:47 | PDOC PROGRESS REPORT ---
Subjective Progress Note for:: 03/05/17 Subjective:: more coherent Reason For Visit: PNEUMONIA,ACUTE HYPERCAPNIC RESPIRATORY Physical Exam Vital Signs: Temp Pulse Resp BP Pulse Ox 97.8 F 88 16 128/67 H 98 03/06/17 11:36 03/06/17 11:36 03/06/17 11:36 03/06/17 11:36 03/06/17 11:36 Intake & Output 03/05/17 03/06/17 03/07/17 06:59 06:59 06:59 Intake Total 1020 438 337 Output Total 200 525 200 Balance 820 -87 137 Weight 111 kg 109.5 kg General appearance: PRESENT: no acute distress, cooperative, disheveled, morbidly obese. ABSENT: mild distress, obese, severe distress Head exam: PRESENT: atraumatic, normocephalic Eye exam: PRESENT: conjunctiva pale, EOMI. ABSENT: conjunctival injection, conjunctiva pink, nystagmus, periorbital swelling, scleral icterus Mouth exam: PRESENT: dry mucosa, neck supple, tongue midline. ABSENT: laceration, moist Neck exam: ABSENT: carotid bruit, JVD, lymphadenopathy, thyromegaly, tracheal deviation, tracheostomy Respiratory exam: PRESENT: decreased breath sounds, prolonged expiratory phas, rales, rhonchi, symmetrical, unlabored, wheezes. ABSENT: accessory muscle use, chest wall tenderness, clear to auscultation rolf, crackles, retraction, stridor , tachypnea Cardiovascular exam: PRESENT: RRR, +S1, +S2 Pulses: PRESENT: normal radial pulses GI/Abdominal exam: PRESENT: diminished bowel sounds, soft Extremities exam: PRESENT: pedal edema. ABSENT: clubbing, full ROM Musculoskeletal exam: ABSENT: ambulatory, deformity, dislocation Neurological exam: PRESENT: awake Psychiatric exam: PRESENT: flat affect Skin exam: PRESENT: dry, warm Results Laboratory Results: 03/03/17 07:41 03/03/17 07:41 02/09/17 02/09/17 02/22/17 00:37 00:37 06:40 Creatine Kinase 109 37 CK-MB (CK-2) Troponin I 0.748 NT-Pro-B Natriuret Pep 02/22/17 02/22/17 02/22/17 06:40 13:05 13:05 Creatine Kinase 36 CK-MB (CK-2) 1.52 1.63 Troponin I 0.031 0.060 NT-Pro-B Natriuret Pep 02/22/17 02/22/17 02/25/17 18:00 18:00 06:30 Creatine Kinase 30 CK-MB (CK-2) 1.41 Troponin I 0.047 NT-Pro-B Natriuret Pep 1510 H Impressions: Guidance Fluoroscopy 02/13/17 00:00 IMPRESSION: SUCCESSFUL PLACEMENT OF A 5 FR DUAL LUMEN 46 CM PICC IN THE LEFT BASILIC VEIN. Interventional Vascular Procedure 02/13/17 00:00 IMPRESSION: SUCCESSFUL PLACEMENT OF A 5 FR DUAL LUMEN 46 CM PICC IN THE LEFT BASILIC VEIN. PICC Line Insertion 02/13/17 00:00 IMPRESSION: SUCCESSFUL PLACEMENT OF A 5 FR DUAL LUMEN 46 CM PICC IN THE LEFT BASILIC VEIN. Chest X-Ray 03/03/17 06:00 IMPRESSION: Stable chest status postextubation. Assessment & Plan - Diagnosis (1) Acute hypercapnic respiratory failure Is this a current diagnosis for this admission?: Yes Plan: stable comfort care status retracted resume DNR,nutrition,labs (2) COPD exacerbation Is this a current diagnosis for this admission?: Yes Plan: stablle (3) Right lower lobe pneumonia Qualifiers: Pneumonia type: due to unspecified organism Qualified Code(s): J18.1 - Lobar pneumonia, unspecified organism Is this a current diagnosis for this admission?: Yes (4) Acute combined systolic (congestive) and diastolic (congestive) heart failure Is this a current diagnosis for this admission?: Yes Plan: unchanged
--- NOTE | 2017-03-06 17:49 | PDOC PROGRESS REPORT ---
Subjective Progress Note for:: 03/05/17 Subjective:: much more coherent Reason For Visit: PNEUMONIA,ACUTE HYPERCAPNIC RESPIRATORY Physical Exam Vital Signs: Temp Pulse Resp BP Pulse Ox 98.4 F 87 16 110/64 93 03/06/17 07:57 03/06/17 07:57 03/06/17 07:57 03/06/17 07:57 03/06/17 07:57 Intake & Output 03/05/17 03/06/17 03/07/17 06:59 06:59 06:59 Intake Total 1020 438 Output Total 200 525 Balance 820 -87 Weight 111 kg 109.5 kg General appearance: PRESENT: no acute distress, cooperative, disheveled, morbidly obese. ABSENT: mild distress, obese, severe distress Head exam: PRESENT: atraumatic, normocephalic Eye exam: PRESENT: conjunctiva pale, EOMI. ABSENT: conjunctival injection, conjunctiva pink, nystagmus, periorbital swelling, scleral icterus Mouth exam: PRESENT: dry mucosa, laceration, neck supple, tongue midline. ABSENT: moist Neck exam: ABSENT: carotid bruit, JVD, lymphadenopathy, thyromegaly, tracheal deviation, tracheostomy Respiratory exam: PRESENT: decreased breath sounds, prolonged expiratory phas, rales, rhonchi, symmetrical, unlabored, wheezes. ABSENT: accessory muscle use, chest wall tenderness, clear to auscultation rolf, crackles, retraction, stridor , tachypnea Cardiovascular exam: PRESENT: RRR, +S1, +S2 Pulses: PRESENT: normal radial pulses GI/Abdominal exam: PRESENT: diminished bowel sounds, soft Extremities exam: PRESENT: pedal edema. ABSENT: clubbing Musculoskeletal exam: ABSENT: ambulatory, deformity, dislocation Neurological exam: PRESENT: alert, awake Psychiatric exam: PRESENT: normal mood Skin exam: PRESENT: dry, warm Results Laboratory Results: 03/03/17 07:41 03/03/17 07:41 02/09/17 02/09/17 02/22/17 00:37 00:37 06:40 Creatine Kinase 109 37 CK-MB (CK-2) Troponin I 0.748 NT-Pro-B Natriuret Pep 02/22/17 02/22/17 02/22/17 06:40 13:05 13:05 Creatine Kinase 36 CK-MB (CK-2) 1.52 1.63 Troponin I 0.031 0.060 NT-Pro-B Natriuret Pep 02/22/17 02/22/17 02/25/17 18:00 18:00 06:30 Creatine Kinase 30 CK-MB (CK-2) 1.41 Troponin I 0.047 NT-Pro-B Natriuret Pep 1510 H Impressions: Guidance Fluoroscopy 02/13/17 00:00 IMPRESSION: SUCCESSFUL PLACEMENT OF A 5 FR DUAL LUMEN 46 CM PICC IN THE LEFT BASILIC VEIN. Interventional Vascular Procedure 02/13/17 00:00 IMPRESSION: SUCCESSFUL PLACEMENT OF A 5 FR DUAL LUMEN 46 CM PICC IN THE LEFT BASILIC VEIN. PICC Line Insertion 02/13/17 00:00 IMPRESSION: SUCCESSFUL PLACEMENT OF A 5 FR DUAL LUMEN 46 CM PICC IN THE LEFT BASILIC VEIN. Chest X-Ray 03/03/17 06:00 IMPRESSION: Stable chest status postextubation. Assessment & Plan - Diagnosis (1) Acute hypercapnic respiratory failure Is this a current diagnosis for this admission?: Yes Plan: stable comfort care status retracted resume DNR,nutrition,labs (2) COPD exacerbation Is this a current diagnosis for this admission?: Yes Plan: stablle (3) Right lower lobe pneumonia Qualifiers: Pneumonia type: due to unspecified organism Qualified Code(s): J18.1 - Lobar pneumonia, unspecified organism Is this a current diagnosis for this admission?: Yes Plan: Etiology undetermined positive cultures and blood and urine but not sputum 02/09/17 02:14 Urine Culture - Final Clean Catch Midstream Escherichia Coli Staph Coagulase Negative 02/08/17 19:12 Blood Culture - Final Blood Peptostreptococcus Species 02/08/17 19:03 Blood Culture - Final Blood NO GROWTH IN 5 DAYS (4) Acute combined systolic (congestive) and diastolic (congestive) heart failure Is this a current diagnosis for this admission?: Yes Plan: unchanged
--- NOTE | 2017-03-06 20:46 | PDOC PROGRESS REPORT ---
Subjective Progress Note for:: 03/06/17 Subjective:: Patient is alert but confused she be transferred back to custodial Reason For Visit: PNEUMONIA,ACUTE HYPERCAPNIC RESPIRATORY Physical Exam Vital Signs: Temp Pulse Resp BP Pulse Ox 98.1 F 81 22 H 117/74 100 03/06/17 19:34 03/06/17 19:34 03/06/17 19:34 03/06/17 19:34 03/06/17 19:34 Intake & Output 03/05/17 03/06/17 03/07/17 06:59 06:59 06:59 Intake Total 1020 438 382 Output Total 200 525 200 Balance 820 -87 182 Weight 111 kg 109.5 kg General appearance: PRESENT: no acute distress Eye exam: PRESENT: PERRLA Respiratory exam: PRESENT: clear to auscultation rolf Cardiovascular exam: PRESENT: +S1, +S2 Murmur grade: 3 Results Laboratory Results: 03/03/17 07:41 03/03/17 07:41 02/09/17 02/09/17 02/22/17 00:37 00:37 06:40 Creatine Kinase 109 37 CK-MB (CK-2) Troponin I 0.748 NT-Pro-B Natriuret Pep 02/22/17 02/22/17 02/22/17 06:40 13:05 13:05 Creatine Kinase 36 CK-MB (CK-2) 1.52 1.63 Troponin I 0.031 0.060 NT-Pro-B Natriuret Pep 02/22/17 02/22/17 02/25/17 18:00 18:00 06:30 Creatine Kinase 30 CK-MB (CK-2) 1.41 Troponin I 0.047 NT-Pro-B Natriuret Pep 1510 H Impressions: Guidance Fluoroscopy 02/13/17 00:00 IMPRESSION: SUCCESSFUL PLACEMENT OF A 5 FR DUAL LUMEN 46 CM PICC IN THE LEFT BASILIC VEIN. Interventional Vascular Procedure 02/13/17 00:00 IMPRESSION: SUCCESSFUL PLACEMENT OF A 5 FR DUAL LUMEN 46 CM PICC IN THE LEFT BASILIC VEIN. PICC Line Insertion 02/13/17 00:00 IMPRESSION: SUCCESSFUL PLACEMENT OF A 5 FR DUAL LUMEN 46 CM PICC IN THE LEFT BASILIC VEIN. Chest X-Ray 03/03/17 06:00 IMPRESSION: Stable chest status postextubation. Assessment & Plan - Diagnosis (1) Right lower lobe pneumonia Qualifiers: Pneumonia type: due to unspecified organism Qualified Code(s): J18.1 - Lobar pneumonia, unspecified organism Is this a current diagnosis for this admission?: Yes (2) Acute hypercapnic respiratory failure Is this a current diagnosis for this admission?: Yes (3) Chronic obstructive pulmonary disease Qualifiers: COPD type: unspecified COPD Qualified Code(s): J44.9 - Chronic obstructive pulmonary disease, unspecified Is this a current diagnosis for this admission?: Yes (4) Chronic obstructive pulmonary disease with (acute) exacerbation Is this a current diagnosis for this admission?: Yes (5) Diabetes mellitus Qualifiers: Diabetes mellitus type: type 2 Diabetes mellitus complication status: with neurologic complications Diabetes mellitus complication detail: with polyneuropathy Diabetes mellitus fci insulin use: with fci use Qualified Code(s): E11.42 - Type 2 diabetes mellitus with diabetic polyneuropathy; Z79.4 - remote computer terminal operator (current) use of insulin; Z79.4 - shelter ( current) use of insulin; Z79.4 - remote computer terminal operator (current) use of insulin; Z79.4 - shelter (current) use of insulin Is this a current diagnosis for this admission?: Yes
[2017-03-06] MEDS: DOXEPIN HCL 25 MG CAPSULE PO PRN (21:41)
[2017-03-06] MEDS: NORMAL SALINE 10 ML SDV (AFTER EACH USE) IV PRN (21:42)
[2017-03-07] MEDS: HYDROMORPHONE HCL INJ/PF 2 MG/ML AMPULE IV PRN ×5 (01:30→20:30)
[2017-03-07] MEDS: METFORMIN HCL 500 MG TABLET PO SCH ×2 (08:09→16:45)
[2017-03-07] MEDS: SPIRONOLACTONE 25 MG TABLET PO SCH (10:39)
[2017-03-07] MEDS: NORMAL SALINE 10 ML SDV (SCHEDULED) IV SCH ×2 (10:41→22:02)
[2017-03-07] MEDS: NORMAL SALINE 10 ML SDV (AFTER EACH USE) IV PRN (20:31)
--- NOTE | 2017-03-07 21:47 | PDOC PROGRESS REPORT ---
Subjective Progress Note for:: 03/07/17 Subjective:: There is no new complaints patient is alert she may be transferred back to the emergency room Reason For Visit: PNEUMONIA,ACUTE HYPERCAPNIC RESPIRATORY Physical Exam Vital Signs: Temp Pulse Resp BP Pulse Ox 98.0 F 97 20 118/72 96 03/07/17 20:00 03/07/17 20:00 03/07/17 20:00 03/07/17 20:00 03/07/17 20:00 Intake & Output 03/06/17 03/07/17 03/08/17 06:59 06:59 06:59 Intake Total 438 878 392 Output Total 525 850 100 Balance -87 28 292 Weight 109.5 kg 109.4 kg General appearance: PRESENT: no acute distress Respiratory exam: PRESENT: clear to auscultation rolf Cardiovascular exam: PRESENT: +S1, +S2 Murmur grade: 3 Results Laboratory Results: 03/03/17 07:41 03/03/17 07:41 02/09/17 02/09/17 02/22/17 00:37 00:37 06:40 Creatine Kinase 109 37 CK-MB (CK-2) Troponin I 0.748 NT-Pro-B Natriuret Pep 02/22/17 02/22/17 02/22/17 06:40 13:05 13:05 Creatine Kinase 36 CK-MB (CK-2) 1.52 1.63 Troponin I 0.031 0.060 NT-Pro-B Natriuret Pep 02/22/17 02/22/17 02/25/17 18:00 18:00 06:30 Creatine Kinase 30 CK-MB (CK-2) 1.41 Troponin I 0.047 NT-Pro-B Natriuret Pep 1510 H Impressions: Guidance Fluoroscopy 02/13/17 00:00 IMPRESSION: SUCCESSFUL PLACEMENT OF A 5 FR DUAL LUMEN 46 CM PICC IN THE LEFT BASILIC VEIN. Interventional Vascular Procedure 02/13/17 00:00 IMPRESSION: SUCCESSFUL PLACEMENT OF A 5 FR DUAL LUMEN 46 CM PICC IN THE LEFT BASILIC VEIN. PICC Line Insertion 02/13/17 00:00 IMPRESSION: SUCCESSFUL PLACEMENT OF A 5 FR DUAL LUMEN 46 CM PICC IN THE LEFT BASILIC VEIN. Chest X-Ray 03/03/17 06:00 IMPRESSION: Stable chest status postextubation. Assessment & Plan - Diagnosis (1) Right lower lobe pneumonia Qualifiers: Pneumonia type: due to unspecified organism Qualified Code(s): J18.1 - Lobar pneumonia, unspecified organism Is this a current diagnosis for this admission?: Yes (2) Acute hypercapnic respiratory failure Is this a current diagnosis for this admission?: Yes (3) Chronic obstructive pulmonary disease Qualifiers: COPD type: unspecified COPD Qualified Code(s): J44.9 - Chronic obstructive pulmonary disease, unspecified Is this a current diagnosis for this admission?: Yes (4) Chronic obstructive pulmonary disease with (acute) exacerbation Is this a current diagnosis for this admission?: Yes (5) Diabetes mellitus Qualifiers: Diabetes mellitus type: type 2 Diabetes mellitus complication status: with neurologic complications Diabetes mellitus complication detail: with polyneuropathy Diabetes mellitus technician terminal and repeater insulin use: with technician terminal and repeater use Qualified Code(s): E11.42 - Type 2 diabetes mellitus with diabetic polyneuropathy; Z79.4 - long term (current) use of insulin; Z79.4 - jail ( current) use of insulin; Z79.4 - long term (current) use of insulin; Z79.4 - long term (current) use of insulin Is this a current diagnosis for this admission?: Yes
--- NOTE | 2017-03-07 23:22 | Progress Note ---
Provider Note Provider Note: Palliative Care Follow up Visit 03/07/17 10:45- 11:00 AM Mrs. Loza is more alert today. able to make conversation and speak words easily. She said she is feeling much better. Nurse reports patient ate breakfast alone without assistance. Patient talked about going back to the SNF and is hoping that she can stay there a long time so her daughter will not have to take care of her. She states her daughter is talking care of Mr. Loza who also has had a stroke. She says caring for both of them would be too hard for the daughter. Patient is breathing easily today. She seems stronger with movement. Rash is still visable across her upper chest with no worsening of the macular bumps. Paitent sts she still has some itching on her back. No complaints of pain today. No complaints constipation or other GI problems. She is cheerful and says she is ready to go back to SNF. Doubtful patient marii be appropriate for hospice on her return since she has recoverd so well since her admission. Appears antibiotics have been completed and WBC's are down to 10.4 a few days ago. No fever or dyspnea. WIll follow if still here next week.
[2017-03-08] MEDS: HYDROMORPHONE HCL INJ/PF 2 MG/ML AMPULE IV PRN ×6 (00:33→21:01)
[2017-03-08] MEDS: NORMAL SALINE 10 ML SDV (AFTER EACH USE) IV PRN ×2 (00:34→16:53)
[2017-03-08] MEDS: METFORMIN HCL 500 MG TABLET PO SCH ×2 (07:35→16:52)
[2017-03-08] MEDS: SPIRONOLACTONE 25 MG TABLET PO SCH (09:17)
[2017-03-08] MEDS: NORMAL SALINE 10 ML SDV (SCHEDULED) IV SCH ×2 (09:43→21:01)
--- NOTE | 2017-03-08 13:59 | PDOC PROGRESS REPORT ---
Subjective Progress Note for:: 03/08/17 Subjective:: She denied any chest pain or difficulty with breathing. No coughing. No fever or chills. No nausea, vomiting, or abdominal pain. Tolerating oral feeding. Reason For Visit: PNEUMONIA,ACUTE HYPERCAPNIC RESPIRATORY Physical Exam Vital Signs: Temp Pulse Resp BP Pulse Ox 97.8 F 90 18 114/58 L 95 03/08/17 11:15 03/08/17 11:15 03/08/17 11:15 03/08/17 11:15 03/08/17 11:15 Intake & Output 03/07/17 03/08/17 03/09/17 06:59 06:59 06:59 Intake Total 878 1258 Output Total 850 580 Balance 28 678 Weight 109.4 kg 108.8 kg General appearance: PRESENT: no acute distress, obese Head exam: PRESENT: atraumatic, normocephalic Mouth exam: PRESENT: moist Respiratory exam: PRESENT: clear to auscultation rolf Cardiovascular exam: PRESENT: RRR. ABSENT: diastolic murmur, rubs, systolic murmur Murmur grade: 3 Vascular exam: PRESENT: normal capillary refill. ABSENT: pallor GI/Abdominal exam: PRESENT: normal bowel sounds, soft. ABSENT: distended, guarding, mass, organolmegaly, rebound, tenderness Extremities exam: ABSENT: pedal edema Neurological exam: PRESENT: alert, awake, oriented to person, oriented to place , oriented to time, oriented to situation, CN II-XII grossly intact. ABSENT: motor sensory deficit Psychiatric exam: PRESENT: appropriate affect, normal mood. ABSENT: homicidal ideation, suicidal ideation Skin exam: PRESENT: dry, intact, rash - beneath breast tissue bilaterally, warm. ABSENT: cyanosis Results Laboratory Results: 03/03/17 07:41 03/03/17 07:41 02/09/17 02/09/17 02/22/17 00:37 00:37 06:40 Creatine Kinase 109 37 CK-MB (CK-2) Troponin I 0.748 NT-Pro-B Natriuret Pep 02/22/17 02/22/17 02/22/17 06:40 13:05 13:05 Creatine Kinase 36 CK-MB (CK-2) 1.52 1.63 Troponin I 0.031 0.060 NT-Pro-B Natriuret Pep 02/22/17 02/22/17 02/25/17 18:00 18:00 06:30 Creatine Kinase 30 CK-MB (CK-2) 1.41 Troponin I 0.047 NT-Pro-B Natriuret Pep 1510 H Impressions: Guidance Fluoroscopy 02/13/17 00:00 IMPRESSION: SUCCESSFUL PLACEMENT OF A 5 FR DUAL LUMEN 46 CM PICC IN THE LEFT BASILIC VEIN. Interventional Vascular Procedure 02/13/17 00:00 IMPRESSION: SUCCESSFUL PLACEMENT OF A 5 FR DUAL LUMEN 46 CM PICC IN THE LEFT BASILIC VEIN. PICC Line Insertion 02/13/17 00:00 IMPRESSION: SUCCESSFUL PLACEMENT OF A 5 FR DUAL LUMEN 46 CM PICC IN THE LEFT BASILIC VEIN. Chest X-Ray 03/03/17 06:00 IMPRESSION: Stable chest status postextubation. Assessment & Plan - Diagnosis (1) Right lower lobe pneumonia Qualifiers: Pneumonia type: due to unspecified organism Qualified Code(s): J18.1 - Lobar pneumonia, unspecified organism Is this a current diagnosis for this admission?: Yes (2) Acute and chronic respiratory failure with hypercapnia Is this a current diagnosis for this admission?: Yes (3) Chronic obstructive pulmonary disease Qualifiers: COPD type: unspecified COPD Qualified Code(s): J44.9 - Chronic obstructive pulmonary disease, unspecified Is this a current diagnosis for this admission?: Yes (4) Diabetes mellitus type 2 in obese Is this a current diagnosis for this admission?: Yes - Time Time Spent with patient: 25-34 minutes Medications reviewed and adjusted accordingly: Yes Anticipated discharge: SNF Within: Other - Inpatient Certification Based on my medical assessment, after consideration of the patient's comorbidities, presenting symptoms, or acuity I expect that the services needed warrant INPATIENT care.: Yes I certify that my determination is in accordance with my understanding of Medicare's requirements for reasonable and necessary INPATIENT services [42 CFR 412.3e].: Yes Medical Necessity: Need Close Monitoring Due to Risk of Patient Decompensation, Need For IV Fluids, Need for Pain Control, Risk of Complication if Not Cared For in Hospital Post Hospital Care: D/C or Transfer Summary - Plan Summary Plan Summary: Start on Nystatin powder to affected region beneath both breast tissue. Maintain on all other current medication management.
[2017-03-08] MEDS: NYSTATIN TOPICAL POWDER 15 GM TP SCH (16:53)
[2017-03-09] MEDS: NORMAL SALINE 10 ML SDV (AFTER EACH USE) IV PRN ×2 (01:01→05:09)
[2017-03-09] MEDS: HYDROMORPHONE HCL INJ/PF 2 MG/ML AMPULE IV PRN ×6 (01:01→22:14)
[2017-03-09] MEDS: METFORMIN HCL 500 MG TABLET PO SCH ×2 (07:42→17:58)
[2017-03-09] MEDS: SPIRONOLACTONE 25 MG TABLET PO SCH (09:13)
[2017-03-09] MEDS: DOXEPIN HCL 25 MG CAPSULE PO PRN (09:14)
[2017-03-09] MEDS: NORMAL SALINE 10 ML SDV (SCHEDULED) IV SCH ×2 (09:14→23:50)
[2017-03-09] MEDS: NYSTATIN TOPICAL POWDER 15 GM TP SCH ×2 (09:15→18:01)
--- NOTE | 2017-03-09 12:00 | PDOC PROGRESS REPORT ---
Subjective Progress Note for:: 03/09/17 Subjective:: She denied any chest pain or difficulty with breathing. No fever or chills. No nausea, vomiting, or abdominal pain. Tolerating oral feeding. Reason For Visit: PNEUMONIA,ACUTE HYPERCAPNIC RESPIRATORY Physical Exam Vital Signs: Temp Pulse Resp BP Pulse Ox 98.0 F 92 22 H 128/83 H 98 03/09/17 11:17 03/09/17 11:17 03/09/17 11:17 03/09/17 11:17 03/09/17 11:17 Intake & Output 03/08/17 03/09/17 03/10/17 06:59 06:59 06:59 Intake Total 1258 2407 Output Total 580 1525 Balance 678 882 Weight 108.8 kg 109.4 kg Physical Exam: General appearance: PRESENT: no acute distress, obese Head exam: PRESENT: atraumatic, normocephalic Mouth exam: PRESENT: moist Respiratory exam: PRESENT: clear to auscultation rolf Cardiovascular exam: PRESENT: RRR. ABSENT: diastolic murmur, rubs, systolic murmur Murmur grade: 3 Vascular exam: PRESENT: normal capillary refill. ABSENT: pallor GI/Abdominal exam: PRESENT: normal bowel sounds, soft. ABSENT: distended, guarding, mass, organomegaly, rebound, tenderness Extremities exam: ABSENT: pedal edema Neurological exam: PRESENT: alert, awake, oriented to person, oriented to place , oriented to time, oriented to situation, CN II-XII grossly intact. ABSENT: motor sensory deficit Psychiatric exam: PRESENT: appropriate affect, normal mood. ABSENT: homicidal ideation, suicidal ideation Skin exam: PRESENT: dry, intact, rash - beneath breast tissue bilaterally, warm. ABSENT: cyanosis Murmur grade: 3 Results Laboratory Results: 03/03/17 07:41 03/03/17 07:41 02/09/17 02/09/17 02/22/17 00:37 00:37 06:40 Creatine Kinase 109 37 CK-MB (CK-2) Troponin I 0.748 NT-Pro-B Natriuret Pep 02/22/17 02/22/17 02/22/17 06:40 13:05 13:05 Creatine Kinase 36 CK-MB (CK-2) 1.52 1.63 Troponin I 0.031 0.060 NT-Pro-B Natriuret Pep 02/22/17 02/22/17 02/25/17 18:00 18:00 06:30 Creatine Kinase 30 CK-MB (CK-2) 1.41 Troponin I 0.047 NT-Pro-B Natriuret Pep 1510 H Impressions: Guidance Fluoroscopy 02/13/17 00:00 IMPRESSION: SUCCESSFUL PLACEMENT OF A 5 FR DUAL LUMEN 46 CM PICC IN THE LEFT BASILIC VEIN. Interventional Vascular Procedure 02/13/17 00:00 IMPRESSION: SUCCESSFUL PLACEMENT OF A 5 FR DUAL LUMEN 46 CM PICC IN THE LEFT BASILIC VEIN. PICC Line Insertion 02/13/17 00:00 IMPRESSION: SUCCESSFUL PLACEMENT OF A 5 FR DUAL LUMEN 46 CM PICC IN THE LEFT BASILIC VEIN. Chest X-Ray 03/03/17 06:00 IMPRESSION: Stable chest status postextubation. Assessment & Plan - Diagnosis (1) Right lower lobe pneumonia Qualifiers: Pneumonia type: due to unspecified organism Qualified Code(s): J18.1 - Lobar pneumonia, unspecified organism Is this a current diagnosis for this admission?: Yes (2) Acute and chronic respiratory failure with hypercapnia Is this a current diagnosis for this admission?: Yes (3) Chronic obstructive pulmonary disease Qualifiers: COPD type: unspecified COPD Qualified Code(s): J44.9 - Chronic obstructive pulmonary disease, unspecified Is this a current diagnosis for this admission?: Yes (4) Diabetes mellitus type 2 in obese Is this a current diagnosis for this admission?: Yes - Time Time Spent with patient: 25-34 minutes Medications reviewed and adjusted accordingly: Yes Anticipated discharge: SNF Within: Other - Inpatient Certification Based on my medical assessment, after consideration of the patient's comorbidities, presenting symptoms, or acuity I expect that the services needed warrant INPATIENT care.: Yes I certify that my determination is in accordance with my understanding of Medicare's requirements for reasonable and necessary INPATIENT services [42 CFR 412.3e].: Yes Medical Necessity: Need Close Monitoring Due to Risk of Patient Decompensation, Need For Continuous Telemetry Monitoring, Need for IV Antibiotics, Risk of Complication if Not Cared For in Hospital Post Hospital Care: D/C Records Management Manager Documentation - Plan Summary Plan Summary: See covering attending physician orders.
--- NOTE | 2017-03-09 18:11 | PDOC PROGRESS REPORT ---
Subjective Progress Note for:: 03/07/17 Subjective:: much more coherent Reason For Visit: PNEUMONIA,ACUTE HYPERCAPNIC RESPIRATORY Physical Exam Vital Signs: Temp Pulse Resp BP Pulse Ox 98.7 F 88 19 108/59 L 100 03/07/17 11:38 03/07/17 11:38 03/07/17 11:38 03/07/17 11:38 03/07/17 11:38 Intake & Output 03/06/17 03/07/17 03/08/17 06:59 06:59 06:59 Intake Total 438 878 Output Total 525 850 Balance -87 28 Weight 109.5 kg 109.4 kg General appearance: PRESENT: no acute distress, cooperative, disheveled, morbidly obese. ABSENT: mild distress, obese, severe distress Head exam: PRESENT: atraumatic, normocephalic Eye exam: PRESENT: conjunctiva pale, EOMI. ABSENT: conjunctival injection, conjunctiva pink, nystagmus, periorbital swelling, scleral icterus Mouth exam: PRESENT: dry mucosa, neck supple, tongue midline. ABSENT: laceration, moist Neck exam: ABSENT: carotid bruit, JVD, lymphadenopathy, thyromegaly, tracheal deviation, tracheostomy Respiratory exam: PRESENT: decreased breath sounds, prolonged expiratory phas, rales, rhonchi, symmetrical, unlabored, wheezes. ABSENT: accessory muscle use, chest wall tenderness, clear to auscultation rolf, crackles, retraction, stridor , tachypnea Cardiovascular exam: PRESENT: RRR, +S1, +S2 Pulses: PRESENT: normal radial pulses GI/Abdominal exam: PRESENT: diminished bowel sounds, soft Extremities exam: ABSENT: clubbing, joint swelling Musculoskeletal exam: ABSENT: ambulatory, deformity, dislocation Neurological exam: PRESENT: alert, awake Skin exam: PRESENT: dry, warm Results Laboratory Results: 03/03/17 07:41 03/03/17 07:41 02/09/17 02/09/17 02/22/17 00:37 00:37 06:40 Creatine Kinase 109 37 CK-MB (CK-2) Troponin I 0.748 NT-Pro-B Natriuret Pep 02/22/17 02/22/17 02/22/17 06:40 13:05 13:05 Creatine Kinase 36 CK-MB (CK-2) 1.52 1.63 Troponin I 0.031 0.060 NT-Pro-B Natriuret Pep 02/22/17 02/22/17 02/25/17 18:00 18:00 06:30 Creatine Kinase 30 CK-MB (CK-2) 1.41 Troponin I 0.047 NT-Pro-B Natriuret Pep 1510 H Impressions: Guidance Fluoroscopy 02/13/17 00:00 IMPRESSION: SUCCESSFUL PLACEMENT OF A 5 FR DUAL LUMEN 46 CM PICC IN THE LEFT BASILIC VEIN. Interventional Vascular Procedure 02/13/17 00:00 IMPRESSION: SUCCESSFUL PLACEMENT OF A 5 FR DUAL LUMEN 46 CM PICC IN THE LEFT BASILIC VEIN. PICC Line Insertion 02/13/17 00:00 IMPRESSION: SUCCESSFUL PLACEMENT OF A 5 FR DUAL LUMEN 46 CM PICC IN THE LEFT BASILIC VEIN. Chest X-Ray 03/03/17 06:00 IMPRESSION: Stable chest status postextubation. Assessment & Plan - Diagnosis (1) Acute hypercapnic respiratory failure Is this a current diagnosis for this admission?: Yes Plan: stable (2) COPD exacerbation Is this a current diagnosis for this admission?: Yes Plan: nikki (3) Right lower lobe pneumonia Qualifiers: Pneumonia type: due to unspecified organism Qualified Code(s): J18.1 - Lobar pneumonia, unspecified organism Is this a current diagnosis for this admission?: Yes Plan: Etiology undetermined 02/09/17 02:14 Urine Culture - Final Clean Catch Midstream Escherichia Coli Staph Coagulase Negative 02/08/17 19:12 Blood Culture - Final Blood Peptostreptococcus Species 02/08/17 19:03 Blood Culture - Final Blood NO GROWTH IN 5 DAYS (4) Acute combined systolic (congestive) and diastolic (congestive) heart failure Is this a current diagnosis for this admission?: Yes Plan: unchanged
[2017-03-10] MEDS: HYDROMORPHONE HCL INJ/PF 2 MG/ML AMPULE IV PRN ×5 (02:16→20:26)
[2017-03-10] MEDS: METFORMIN HCL 500 MG TABLET PO SCH ×2 (11:07→16:15)
[2017-03-10] MEDS: SPIRONOLACTONE 25 MG TABLET PO SCH (11:07)
[2017-03-10] MEDS: NORMAL SALINE 10 ML SDV (SCHEDULED) IV SCH ×2 (11:12→21:16)
[2017-03-10] MEDS: NYSTATIN TOPICAL POWDER 15 GM TP SCH ×2 (11:24→20:25)
[2017-03-10] MEDS: DOXEPIN HCL 25 MG CAPSULE PO PRN (15:03)
--- NOTE | 2017-03-10 17:09 | PDOC PROGRESS REPORT ---
Subjective Progress Note for:: 03/10/17 Subjective:: Continues to improve Reason For Visit: PNEUMONIA,ACUTE HYPERCAPNIC RESPIRATORY Physical Exam Vital Signs: Temp Pulse Resp BP Pulse Ox 99.1 F 104 H 17 127/71 H 99 03/10/17 15:52 03/10/17 15:52 03/10/17 15:52 03/10/17 15:52 03/10/17 15:52 Intake & Output 03/09/17 03/10/17 03/11/17 06:59 06:59 06:59 Intake Total 2407 1521 Output Total 1525 1315 Balance 882 206 Weight 109.4 kg 111.2 kg General appearance: PRESENT: no acute distress, cooperative, disheveled, morbidly obese. ABSENT: obese, severe distress Head exam: PRESENT: atraumatic, normocephalic Eye exam: PRESENT: conjunctiva pale, EOMI. ABSENT: conjunctival injection, conjunctiva pink, periorbital swelling, scleral icterus Mouth exam: PRESENT: moist, neck supple, tongue midline. ABSENT: dry mucosa, laceration Neck exam: ABSENT: carotid bruit, JVD, lymphadenopathy, thyromegaly, tracheal deviation, tracheostomy Respiratory exam: PRESENT: decreased breath sounds, prolonged expiratory phas, rales, rhonchi, symmetrical, unlabored. ABSENT: accessory muscle use, chest wall tenderness, clear to auscultation rolf, crackles, retraction, stridor, tachypnea Cardiovascular exam: PRESENT: RRR, +S1, +S2 Pulses: PRESENT: normal radial pulses GI/Abdominal exam: PRESENT: diminished bowel sounds, soft Extremities exam: ABSENT: clubbing, joint swelling Musculoskeletal exam: ABSENT: ambulatory, deformity, dislocation Neurological exam: PRESENT: awake Skin exam: PRESENT: dry, warm Results Laboratory Results: 03/03/17 07:41 03/03/17 07:41 02/09/17 02/09/17 02/22/17 00:37 00:37 06:40 Creatine Kinase 109 37 CK-MB (CK-2) Troponin I 0.748 NT-Pro-B Natriuret Pep 02/22/17 02/22/17 02/22/17 06:40 13:05 13:05 Creatine Kinase 36 CK-MB (CK-2) 1.52 1.63 Troponin I 0.031 0.060 NT-Pro-B Natriuret Pep 02/22/17 02/22/17 02/25/17 18:00 18:00 06:30 Creatine Kinase 30 CK-MB (CK-2) 1.41 Troponin I 0.047 NT-Pro-B Natriuret Pep 1510 H Impressions: Guidance Fluoroscopy 02/13/17 00:00 IMPRESSION: SUCCESSFUL PLACEMENT OF A 5 FR DUAL LUMEN 46 CM PICC IN THE LEFT BASILIC VEIN. Interventional Vascular Procedure 02/13/17 00:00 IMPRESSION: SUCCESSFUL PLACEMENT OF A 5 FR DUAL LUMEN 46 CM PICC IN THE LEFT BASILIC VEIN. PICC Line Insertion 02/13/17 00:00 IMPRESSION: SUCCESSFUL PLACEMENT OF A 5 FR DUAL LUMEN 46 CM PICC IN THE LEFT BASILIC VEIN. Chest X-Ray 03/03/17 06:00 IMPRESSION: Stable chest status postextubation. Assessment & Plan - Diagnosis (1) Acute hypercapnic respiratory failure Is this a current diagnosis for this admission?: Yes Plan: stable (2) COPD exacerbation Is this a current diagnosis for this admission?: Yes Plan: gloriale (3) Right lower lobe pneumonia Qualifiers: Pneumonia type: due to unspecified organism Qualified Code(s): J18.1 - Lobar pneumonia, unspecified organism Is this a current diagnosis for this admission?: Yes Plan: Etiology undetermined 02/09/17 02:14 Urine Culture - Final Clean Catch Midstream Escherichia Coli Staph Coagulase Negative 02/08/17 19:12 Blood Culture - Final Blood Peptostreptococcus Species 02/08/17 19:03 Blood Culture - Final Blood NO GROWTH IN 5 DAYS (4) Acute combined systolic (congestive) and diastolic (congestive) heart failure Is this a current diagnosis for this admission?: Yes Plan: unchanged
--- NOTE | 2017-03-10 22:16 | PDOC PROGRESS REPORT ---
Subjective Progress Note for:: 03/10/17 Subjective:: Patient was seen by the bedside she is awake responsive she was initially supposed to be hospice but she is not longer a candidate for hospice, she will be transferred back to the senior care for continuity of care at one point this week. She complained of dysuria, burning sensation when she urinates, she has erythema intertrigo most likely due to candidiasis Reason For Visit: PNEUMONIA,ACUTE HYPERCAPNIC RESPIRATORY Physical Exam Vital Signs: Temp Pulse Resp BP Pulse Ox 99.6 F 107 H 16 112/96 H 98 03/10/17 19:30 03/10/17 19:30 03/10/17 19:30 03/10/17 19:30 03/10/17 19:30 Intake & Output 03/09/17 03/10/17 03/11/17 06:59 06:59 06:59 Intake Total 2407 1521 519 Output Total 1525 1315 350 Balance 882 206 169 Weight 109.4 kg 111.2 kg General appearance: PRESENT: no acute distress Eye exam: PRESENT: PERRLA Respiratory exam: PRESENT: clear to auscultation rolf Cardiovascular exam: PRESENT: +S1, +S2 Murmur grade: 3 GI/Abdominal exam: PRESENT: soft Neurological exam: PRESENT: alert, CN II-XII grossly intact Results Laboratory Results: 03/03/17 07:41 03/03/17 07:41 02/09/17 02/09/17 02/22/17 00:37 00:37 06:40 Creatine Kinase 109 37 CK-MB (CK-2) Troponin I 0.748 NT-Pro-B Natriuret Pep 02/22/17 02/22/17 02/22/17 06:40 13:05 13:05 Creatine Kinase 36 CK-MB (CK-2) 1.52 1.63 Troponin I 0.031 0.060 NT-Pro-B Natriuret Pep 02/22/17 02/22/17 02/25/17 18:00 18:00 06:30 Creatine Kinase 30 CK-MB (CK-2) 1.41 Troponin I 0.047 NT-Pro-B Natriuret Pep 1510 H Impressions: Guidance Fluoroscopy 02/13/17 00:00 IMPRESSION: SUCCESSFUL PLACEMENT OF A 5 FR DUAL LUMEN 46 CM PICC IN THE LEFT BASILIC VEIN. Interventional Vascular Procedure 02/13/17 00:00 IMPRESSION: SUCCESSFUL PLACEMENT OF A 5 FR DUAL LUMEN 46 CM PICC IN THE LEFT BASILIC VEIN. PICC Line Insertion 02/13/17 00:00 IMPRESSION: SUCCESSFUL PLACEMENT OF A 5 FR DUAL LUMEN 46 CM PICC IN THE LEFT BASILIC VEIN. Chest X-Ray 03/03/17 06:00 IMPRESSION: Stable chest status postextubation. Assessment & Plan - Diagnosis (1) Right lower lobe pneumonia Qualifiers: Pneumonia type: due to unspecified organism Qualified Code(s): J18.1 - Lobar pneumonia, unspecified organism Is this a current diagnosis for this admission?: Yes (2) Acute hypercapnic respiratory failure Is this a current diagnosis for this admission?: Yes (3) Chronic obstructive pulmonary disease Qualifiers: COPD type: unspecified COPD Qualified Code(s): J44.9 - Chronic obstructive pulmonary disease, unspecified Is this a current diagnosis for this admission?: Yes (4) Chronic obstructive pulmonary disease with (acute) exacerbation Is this a current diagnosis for this admission?: Yes (5) Diabetes mellitus Qualifiers: Diabetes mellitus type: type 2 Diabetes mellitus complication status: with neurologic complications Diabetes mellitus complication detail: with polyneuropathy Diabetes mellitus group home insulin use: with oil heaterman use Qualified Code(s): E11.42 - Type 2 diabetes mellitus with diabetic polyneuropathy; Z79.4 - snf (current) use of insulin; Z79.4 - snf ( current) use of insulin; Z79.4 - snf (current) use of insulin; Z79.4 - snf (current) use of insulin Is this a current diagnosis for this admission?: Yes (6) Erythema intertrigo Is this a current diagnosis for this admission?: Yes Plan: She was prescribed Macrobid for UTI
[2017-03-10] MEDS ORDERED: FLUCONAZOLE 100 MG TABLET PO ONE (22:30)
[2017-03-10] MEDS ORDERED: NITROFURANTOIN MONOHYD/M-CRYST 100 MG CAPSULE PO ONE (22:30)
[2017-03-11] MEDS: HYDROMORPHONE HCL INJ/PF 2 MG/ML AMPULE IV PRN ×6 (00:20→20:55)
[2017-03-11] MEDS: METFORMIN HCL 500 MG TABLET PO SCH ×2 (08:38→15:57)
[2017-03-11] MEDS: FLUCONAZOLE 100 MG TABLET PO SCH (09:30)
[2017-03-11] MEDS: SPIRONOLACTONE 25 MG TABLET PO SCH (09:31)
[2017-03-11] MEDS: NORMAL SALINE 10 ML SDV (SCHEDULED) IV SCH ×2 (09:33→21:05)
[2017-03-11] MEDS: NITROFURANTOIN MONOHYD/M-CRYST 100 MG CAPSULE PO SCH ×2 (09:33→17:10)
[2017-03-11] MEDS: NYSTATIN TOPICAL POWDER 15 GM TP SCH ×2 (09:34→17:10)
[2017-03-11] MEDS: DOXEPIN HCL 25 MG CAPSULE PO PRN (18:52)
--- NOTE | 2017-03-11 20:25 | PDOC PROGRESS REPORT ---
Subjective Progress Note for:: 03/11/17 Subjective:: Patient is stable [facility] Reason For Visit: PNEUMONIA,ACUTE HYPERCAPNIC RESPIRATORY Physical Exam Vital Signs: Temp Pulse Resp BP Pulse Ox 98.5 F 91 20 129/72 H 100 03/11/17 19:30 03/11/17 19:30 03/11/17 19:30 03/11/17 19:30 03/11/17 19:30 Intake & Output 03/10/17 03/11/17 03/12/17 06:59 06:59 06:59 Intake Total 1521 1549 950 Output Total 1315 1350 1000 Balance 206 199 -50 Weight 111.2 kg 112.1 kg General appearance: PRESENT: no acute distress Eye exam: PRESENT: PERRLA Respiratory exam: PRESENT: clear to auscultation rofl Cardiovascular exam: PRESENT: +S1, +S2 Murmur grade: 3 GI/Abdominal exam: PRESENT: soft Neurological exam: PRESENT: alert, CN II-XII grossly intact Results Laboratory Results: 03/03/17 07:41 03/03/17 07:41 02/09/17 02/09/17 02/22/17 00:37 00:37 06:40 Creatine Kinase 109 37 CK-MB (CK-2) Troponin I 0.748 NT-Pro-B Natriuret Pep 02/22/17 02/22/17 02/22/17 06:40 13:05 13:05 Creatine Kinase 36 CK-MB (CK-2) 1.52 1.63 Troponin I 0.031 0.060 NT-Pro-B Natriuret Pep 02/22/17 02/22/17 02/25/17 18:00 18:00 06:30 Creatine Kinase 30 CK-MB (CK-2) 1.41 Troponin I 0.047 NT-Pro-B Natriuret Pep 1510 H Impressions: Guidance Fluoroscopy 02/13/17 00:00 IMPRESSION: SUCCESSFUL PLACEMENT OF A 5 FR DUAL LUMEN 46 CM PICC IN THE LEFT BASILIC VEIN. Interventional Vascular Procedure 02/13/17 00:00 IMPRESSION: SUCCESSFUL PLACEMENT OF A 5 FR DUAL LUMEN 46 CM PICC IN THE LEFT BASILIC VEIN. PICC Line Insertion 02/13/17 00:00 IMPRESSION: SUCCESSFUL PLACEMENT OF A 5 FR DUAL LUMEN 46 CM PICC IN THE LEFT BASILIC VEIN. Chest X-Ray 03/03/17 06:00 IMPRESSION: Stable chest status postextubation. Assessment & Plan - Diagnosis (1) Right lower lobe pneumonia Qualifiers: Pneumonia type: due to unspecified organism Qualified Code(s): J18.1 - Lobar pneumonia, unspecified organism Is this a current diagnosis for this admission?: Yes (2) Acute hypercapnic respiratory failure Is this a current diagnosis for this admission?: Yes (3) Chronic obstructive pulmonary disease Qualifiers: COPD type: unspecified COPD Qualified Code(s): J44.9 - Chronic obstructive pulmonary disease, unspecified Is this a current diagnosis for this admission?: Yes (4) Chronic obstructive pulmonary disease with (acute) exacerbation Is this a current diagnosis for this admission?: Yes (5) Diabetes mellitus Qualifiers: Diabetes mellitus type: type 2 Diabetes mellitus complication status: with neurologic complications Diabetes mellitus complication detail: with polyneuropathy Diabetes mellitus intermediate teacher insulin use: with alf use Qualified Code(s): E11.42 - Type 2 diabetes mellitus with diabetic polyneuropathy; Z79.4 - exterminator termite (current) use of insulin; Z79.4 - penitentiary ( current) use of insulin; Z79.4 - penitentiary (current) use of insulin; Z79.4 - penitentiary (current) use of insulin Is this a current diagnosis for this admission?: Yes (6) Erythema intertrigo Is this a current diagnosis for this admission?: Yes
[2017-03-11] MEDS: NORMAL SALINE 10 ML SDV (AFTER EACH USE) IV PRN (20:56)
[2017-03-12] MEDS: HYDROMORPHONE HCL INJ/PF 2 MG/ML AMPULE IV PRN ×4 (00:49→19:40)
[2017-03-12] MEDS: METFORMIN HCL 500 MG TABLET PO SCH ×2 (08:41→18:47)
[2017-03-12] MEDS: NITROFURANTOIN MONOHYD/M-CRYST 100 MG CAPSULE PO SCH ×2 (10:52→18:47)
[2017-03-12] MEDS: FLUCONAZOLE 100 MG TABLET PO SCH (10:54)
[2017-03-12] MEDS: NORMAL SALINE 10 ML SDV (SCHEDULED) IV SCH (10:56)
[2017-03-12] MEDS: NYSTATIN TOPICAL POWDER 15 GM TP SCH ×2 (10:57→18:48)
[2017-03-12] MEDS: SPIRONOLACTONE 25 MG TABLET PO SCH (10:57)
--- NOTE | 2017-03-12 14:38 | PDOC TRANSFER SUMMARY ---
General - Admit/Disc Date/PCP Admission Date/Primary Care Provider: 02/08/17 22:01 TANISHA POLLARD MD Discharge Date: 03/12/17 - Discharge Diagnosis (1) Right lower lobe pneumonia Is this a current diagnosis for this admission?: Yes (2) Acute hypercapnic respiratory failure Is this a current diagnosis for this admission?: Yes (3) Chronic obstructive pulmonary disease Is this a current diagnosis for this admission?: Yes (4) Chronic obstructive pulmonary disease with (acute) exacerbation Is this a current diagnosis for this admission?: Yes (5) Diabetes mellitus Is this a current diagnosis for this admission?: Yes (6) Erythema intertrigo Is this a current diagnosis for this admission?: Yes - Additional Information Resuscitation Status: Do Not Resuscitate Prescriptions: Tramadol HCl [Ultram] 50 mg PO Q6HP PRN #120 tablet PRN Reason: Fluconazole [Diflucan 100 mg Tablet] 200 mg PO DAILY #10 tablet Nitrofurantoin Monohyd/M-Cryst [Macrobid 100 mg Capsule] 100 mg PO BID #14 capsule Nystatin [Mycostatin Topical Powder 15 gm] 1 applic TP BID #2 bottle Home Medications: Albuterol Sulfate [Proair HFA] 2 puff IH Q4 PRN 01/07/17 Aspirin [Aspirin 81 mg Chewable Tablet] 81 mg PO DAILY 01/07/17 Duloxetine HCl [Cymbalta] 60 mg PO DAILY 01/07/17 Insulin Detemir [Levemir Flextouch] 50 unit SQ BID 01/07/17 Magnesium Oxide 400 mg PO DAILY 01/07/17 Metformin HCl 500 mg PO WSUPPER 01/07/17 Simethicone [Gas Relief 80] 80 mg PO MEALSHS PRN 01/07/17 Spironolactone [Aldactone 25 mg Tablet] 12.5 mg PO DAILY 01/07/17 Cyanocobalamin (Vitamin B-12) [Vitamin B-12 Inj 1000 Mcg/1 ml Vial] 1,000 mcg SUBCUT Q7D #1000 vial 01/15/17 Tiotropium [place] [Spiriva] 2 puff IH DAILY 02/08/17 Fluconazole [Diflucan 100 mg Tablet] 200 mg PO DAILY #10 tablet 03/12/17 Nitrofurantoin Monohyd/M-Cryst [Macrobid 100 mg Capsule] 100 mg PO BID #14 capsule 03/12/17 Nystatin [Mycostatin Topical Powder 15 gm] 1 applic TP BID #2 bottle 03/12/17 Tramadol HCl [Ultram] 50 mg PO Q6HP PRN #120 tablet 03/12/17 History of Present Illness Admission Date/PCP: 02/08/17 22:01 TANISHA POLLARD MD History of Present Illness: Patient was admitted when she presented with pneumonia associated with acute hypoxemic respiratory failure Hospital Course Hospital Course: She was admitted for the management of pneumonia she required noninvasive positive pressure ventilation with BiPAP she was treated with IV antibiotic, she decompensated from respiratory standpoint requiring mechanical ventilation she was transferred from [facility] to ICU she was seen by pulmonary. Patient status was change to comfort care measures in the intensive care unit she was weaned off mechanical ventilation. Patient was on comfort measures for couple of days but her condition improved to the point that she was taken of comfort measures. She is a DNR status. Hospital course was complicated with electrolyte derangements, hypokalemia, requiring replacement therapy Physical Exam Vital Signs: Temp Pulse Resp BP Pulse Ox 97.3 F 109 H 20 116/80 97 03/12/17 03:45 03/12/17 03:45 03/12/17 03:45 03/12/17 03:45 03/12/17 03:45 Intake & Output 03/11/17 03/12/17 03/13/17 06:59 06:59 06:59 Intake Total 1549 1850 Output Total 1350 2300 Balance 199 -450 Weight 112.1 kg 116.9 kg General appearance: PRESENT: no acute distress Eye exam: PRESENT: PERRLA Respiratory exam: PRESENT: clear to auscultation rolf Cardiovascular exam: PRESENT: +S1, +S2 GI/Abdominal exam: PRESENT: soft Neurological exam: PRESENT: alert Results Laboratory Results: 03/03/17 07:41 03/03/17 07:41 02/09/17 02/09/17 02/22/17 00:37 00:37 06:40 Creatine Kinase 109 37 CK-MB (CK-2) Troponin I 0.748 NT-Pro-B Natriuret Pep 02/22/17 02/22/17 02/22/17 06:40 13:05 13:05 Creatine Kinase 36 CK-MB (CK-2) 1.52 1.63 Troponin I 0.031 0.060 NT-Pro-B Natriuret Pep 02/22/17 02/22/17 02/25/17 18:00 18:00 06:30 Creatine Kinase 30 CK-MB (CK-2) 1.41 Troponin I 0.047 NT-Pro-B Natriuret Pep 1510 H Impressions: Guidance Fluoroscopy 02/13/17 00:00 IMPRESSION: SUCCESSFUL PLACEMENT OF A 5 FR DUAL LUMEN 46 CM PICC IN THE LEFT BASILIC VEIN. Interventional Vascular Procedure 02/13/17 00:00 IMPRESSION: SUCCESSFUL PLACEMENT OF A 5 FR DUAL LUMEN 46 CM PICC IN THE LEFT BASILIC VEIN. PICC Line Insertion 02/13/17 00:00 IMPRESSION: SUCCESSFUL PLACEMENT OF A 5 FR DUAL LUMEN 46 CM PICC IN THE LEFT BASILIC VEIN. Chest X-Ray 03/03/17 06:00 IMPRESSION: Stable chest status postextubation.
[2017-03-12 20:15] VITALS: BP 137/77
== END 2017-03-12 21:40 | DRG 207 ==
LOC: ER 18:54 → EH 22:01 → 3N 02-09 00:08 → ICU 02-22 06:59 → 4W 03-02 15:13
PROVIDERS: ADMIT Internal Medicine; ATTEND Internal Medicine
PROC: 5A09457 Assistance with Respiratory Ventilation, 24-96 Consecutive Hours, Continuous Positive Airway Pressure (ICD-10-PCS; 2017-02-08)
PROC: 02HV33Z Insertion of Infusion Device into Superior Vena Cava, Percutaneous Approach (ICD-10-PCS; 2017-02-13)
PROC: B548ZZA Ultrasonography of Superior Vena Cava, Guidance (ICD-10-PCS; 2017-02-13)
PROC: B5181ZA Fluoroscopy of Superior Vena Cava using Low Osmolar Contrast, Guidance (ICD-10-PCS; 2017-02-13)
PROC: 0BH17EZ Insertion of Endotracheal Airway into Trachea, Via Natural or Artificial Opening (ICD-10-PCS; principal; 2017-02-22)
PROC: 5A1955Z Respiratory Ventilation, Greater than 96 Consecutive Hours (ICD-10-PCS; 2017-02-22)
DX: J96.01 Acute respiratory failure with hypoxia (principal); J18.1 Lobar pneumonia, unspecified organism; J44.1 Chronic obstructive pulmonary disease with (acute) exacerbation; J44.0 Chronic obstructive pulmonary disease with (acute) lower respiratory infection; Z68.41 Body mass index [BMI] 40.0-44.9, adult; I42.9 Cardiomyopathy, unspecified; I50.42 Chronic combined systolic (congestive) and diastolic (congestive) heart failure; N39.0 Urinary tract infection, site not specified; J96.22 Acute and chronic respiratory failure with hypercapnia; E11.42 Type 2 diabetes mellitus with diabetic polyneuropathy; I11.0 Hypertensive heart disease with heart failure; I25.10 Atherosclerotic heart disease of native coronary artery without angina pectoris; I73.9 Peripheral vascular disease, unspecified; M79.7 Fibromyalgia; E66.01 Morbid (severe) obesity due to excess calories; M19.90 Unspecified osteoarthritis, unspecified site; F32.9 Major depressive disorder, single episode, unspecified; F41.9 Anxiety disorder, unspecified; E78.5 Hyperlipidemia, unspecified; B96.20 Unspecified Escherichia coli [E. coli] as the cause of diseases classified elsewhere; G43.909 Migraine, unspecified, not intractable, without status migrainosus; L30.4 Erythema intertrigo; Z78.1 Physical restraint status; E87.6 Hypokalemia; Z86.14 Personal history of Methicillin resistant Staphylococcus aureus infection; Z90.49 Acquired absence of other specified parts of digestive tract; Z95.5 Presence of coronary angioplasty implant and graft; Z79.4 Long term (current) use of insulin; Z79.82 Long term (current) use of aspirin; Z88.6 Allergy status to analgesic agent; Z82.49 Family history of ischemic heart disease and other diseases of the circulatory system; Z87.891 Personal history of nicotine dependence; Z51.5 Encounter for palliative care
CPT/HCPCS: 36415; 36569; 71010; 71045; 76937; 77001; 80048; 80053; 81001; 82550; 82553; 82803; 82962; 83036; 83605; 83690; 83735; 83880; 84100; 84484; 85025; 85027; 85610; 85730; 87040; 87077; 87086; 87088; 87186; 93005; 93010; 94002; 94003; 94640; 94660; 96365; 96375; 99291; J0330; J0692; J1170; J1642; J1650; J1815; J1940; J1956; J2020; J2060; J2250; J2270; J2405; J2543; J2704; J2920; J2930; J3490; J7030; J7060; J7620; J8499; S0028

== ENCOUNTER 2017-03-18 12:53 | Inpatient (IN) | payer MEDICAID ==
[2017-03-18] MEDS ORDERED: NORMAL SALINE 1000 ML 500 ML IV ONE (14:39)
--- NOTE | 2017-03-18 14:41 | ER Document Report ---
ED Medical Screen (RME) - General Chief Complaint: Nausea/Vomiting/Diarrhea Stated Complaint: VOMITING Time Seen by Provider: 03/18/17 14:25 Mode of Arrival: Ambulatory Information source: Patient Notes: Patient is a 66 year old female with a history of CA and strokes presents to the emergency department, accompanied by daughter complaining of nausea, vomiting, diarrhea and abdominal pain onset 3 days ago. Patient states she has not had any episodes of vomiting or diarrhea today. Patient also complains of diaphoresis, coughing and decreased appetite. Patient denies any fevers. Patient is leaned over at bedside. Patient states she is currently on Plavix. I have greeted and performed a rapid initial assessment of this patient. A comprehensive ED assessment and evaluation of the patient, analysis of test results and completion of the medical decision making process will be conducted by additional ED providers. TRAVEL OUTSIDE OF THE [place] IN LAST 30 DAYS: No - Related Data Allergies/Adverse Reactions: codeine [Codeine] Adverse Reaction (Unknown, Verified 08/23/16 08:03) Past Medical History - Social History Chew tobacco use (# tins/day): No Frequency of alcohol use: None Drug Abuse: None Family history: CAD, Hyperlipidemia, Hypertension, Malignancy - Past Medical History Cardiac Medical History: Reports: Hx Congestive Heart Failure, Hx Coronary Artery Disease, Hx Hypercholesterolemia, Hx Hypertension, Hx Peripheral Vascular Disease Denies: Hx Heart Murmur Pulmonary Medical History: Reports: Hx Asthma, Hx Bronchitis, Hx COPD, Hx Respiratory Failure, Hx Sleep Apnea Denies: Hx Tuberculosis Neurological Medical History: Reports: Hx Migraine. Denies: Hx Seizures Endocrine Medical History: Reports: Hx Diabetes Mellitus Type 1, Hx Diabetes Mellitus Type 2 Renal/ Medical History: Reports: Hx Ovarian Cysts. Denies: Hx Peritoneal Dialysis Malignancy Medical History: GI Medical History: Reports: Hx Gastritis, Hx Ulcer. Denies: Hx Cirrhosis, Hx Diverticulitis, Hx Pancreatitis, Hx Ulcerative Colitis Musculoskeltal Medical History: Reports Hx Arthritis, Reports Hx Fibromyalgia, Reports Hx Musculoskeletal Deformity, Reports Hx Musculoskeletal Trauma Skin Medical History: Denies Hx Psoriasis Psychiatric Medical History: Reports: Hx Anxiety, Hx Depression Denies: Hx Attention Deficit Hyperactivity Disorder Traumatic Medical History: Reports: Hx Fractures - pinkie finger. Denies: Hx Traumatic Brain Injury Infectious Medical History: Reports: Hx C-Diff, Hx MRSA Past Surgical History: Reports: Hx Appendectomy, Hx Cardiac Catheterization, Hx Cholecystectomy, Hx Coronary Stent, Hx Hysterectomy, Hx Orthopedic Surgery - right shoulder, Hx Tubal Ligation, Hx Vascular Surgery - Immunizations Immunizations up to date: Yes Hx Diphtheria, Pertussis, Tetanus Vaccination: Yes History of Influenza Vaccine for 11/2016 - 04/2017 Season: Yes Influenza Administration Date for 11/2016 - 04/2017 Season: 11/17/16 Physical Exam - Vital signs Vitals: Temp Pulse Resp BP Pulse Ox 98.8 F 109 H 18 112/69 92 03/18/17 13:02 03/18/17 13:02 03/18/17 13:02 03/18/17 13:02 03/18/17 13:02 - Notes Notes: GENERAL: Alert, Patient is leaned over at bedside. No acute distress. HEAD: Normocephalic, Atraumatic. LUNGS: coarse breath sounds. No respiratory distress. HEART: Regular rate and rhythm. No murmurs, gallops, or rubs. Course - Vital Signs Vital signs: Temp Pulse Resp BP Pulse Ox 98.8 F 109 H 18 112/69 92 03/18/17 13:02 03/18/17 13:02 03/18/17 13:02 03/18/17 13:02 03/18/17 13:02 Scribe Documentation - Scribe Written by Johnny:: Johnny Coleman, 03/18/2018 14:43 acting as scribe for :: Aubrey
--- NOTE | 2017-03-18 16:06 | RADIOLOGY REPORT (SQ) ---
EXAM DESCRIPTION: CHEST PA/LAT COMPLETED DATE/TIME: 03/18/2017 3:55 pm REASON FOR STUDY: cough and congestion COMPARISON: December 2016 EXAM PARAMETERS: NUMBER OF VIEWS: two views TECHNIQUE: Digital Frontal and Lateral radiographic views of the chest acquired. RADIATION DOSE: NA LIMITATIONS: none FINDINGS: LUNGS AND PLEURA: No opacities, masses or pneumothorax. No pleural effusion. MEDIASTINUM AND HILAR STRUCTURES: No masses or contour abnormalities. HEART AND VASCULAR STRUCTURES: Heart normal size. No evidence for failure. BONES: No acute findings. HARDWARE: None in the chest. OTHER: No other significant finding. IMPRESSION: NO SIGNIFICANT RADIOGRAPHIC FINDING IN THE CHEST. TECHNICAL DOCUMENTATION: JOB ID: [id number] [employer]- All Rights Reserved
[2017-03-18 16:26] LABS: A TYPE INFLUENZA AG NEGATIVE (NEGATIVE); B INFLUENZA AG NEGATIVE (NEGATIVE)
[2017-03-18] MEDS ORDERED: ONDANSETRON HCL INJ/PF 4 MG/2 ML SDV IV ONE ×2 (16:35→22:25)
[2017-03-18] MEDS ORDERED: MORPHINE SULFATE 10 MG/ML INJ IV PRN (16:35)
--- NOTE | 2017-03-18 16:39 | ER Document Report ---
ED General - General Chief Complaint: Nausea/Vomiting/Diarrhea Stated Complaint: VOMITING Time Seen by Provider: 03/18/17 14:25 Mode of Arrival: Ambulatory Information source: Patient Notes: This is a 66-year-old female with a history of COPD (oxygen dependent on 3 L nasal cannula), hypercapnic respiratory failure, coronary artery disease, peripheral vascular disease, diabetes and hypertension. Patient is brought in from [facility] because of nausea, vomiting, abdominal pain for the past 2- 3 days. Patient states she has had decreased p.o. intake because of this. Patient does report increased shortness of breath. She does have a history of hypercapnic respiratory failure with intubations in the past. TRAVEL OUTSIDE OF THE [place] IN LAST 30 DAYS: No - HPI Onset: Last week Onset/Duration: Gradual Quality of pain: Dull Severity: Moderate Pain Level: 2 Associated symptoms: Nausea, Vomiting. denies: Fever, Shortness of breath Exacerbated by: Denies Relieved by: Denies Similar symptoms previously: Yes Recently seen / treated by doctor: Yes - Related Data Allergies/Adverse Reactions: codeine [Codeine] Adverse Reaction (Unknown, Verified 08/23/16 08:03) Past Medical History - General Information source: Patient - Social History Smoking Status: Former Smoker Cigarette use (# per day): No Chew tobacco use (# tins/day): No Frequency of alcohol use: None Drug Abuse: None Lives with: Care Home Family History: CAD, Hypertension, Other - Alzheimer's, renal failure Patient has suicidal ideation: No Patient has homicidal ideation: No - Past Medical History Cardiac Medical History: Reports: Hx Congestive Heart Failure, Hx Coronary Artery Disease, Hx Hypercholesterolemia, Hx Hypertension, Hx Peripheral Vascular Disease Denies: Hx Heart Murmur Pulmonary Medical History: Reports: Hx Asthma, Hx Bronchitis, Hx COPD, Hx Respiratory Failure, Hx Sleep Apnea Denies: Hx Tuberculosis Neurological Medical History: Reports: Hx Migraine. Denies: Hx Seizures Endocrine Medical History: Reports: Hx Diabetes Mellitus Type 1, Hx Diabetes Mellitus Type 2 Renal/ Medical History: Reports: Hx Ovarian Cysts. Denies: Hx Peritoneal Dialysis Malignancy Medical History: GI Medical History: Reports: Hx Gastritis, Hx Ulcer. Denies: Hx Cirrhosis, Hx Diverticulitis, Hx Pancreatitis, Hx Ulcerative Colitis Musculoskeltal Medical History: Reports Hx Arthritis, Reports Hx Fibromyalgia, Reports Hx Musculoskeletal Deformity, Reports Hx Musculoskeletal Trauma Skin Medical History: Denies Hx Psoriasis Psychiatric Medical History: Reports: Hx Anxiety, Hx Depression Denies: Hx Attention Deficit Hyperactivity Disorder Traumatic Medical History: Reports: Hx Fractures - pinkie finger. Denies: Hx Traumatic Brain Injury Infectious Medical History: Reports: Hx C-Diff, Hx MRSA Past Surgical History: Reports: Hx Appendectomy, Hx Cardiac Catheterization, Hx Cholecystectomy, Hx Coronary Stent, Hx Hysterectomy, Hx Orthopedic Surgery - right shoulder, Hx Tubal Ligation, Hx Vascular Surgery - Immunizations Immunizations up to date: Yes Hx Diphtheria, Pertussis, Tetanus Vaccination: Yes Hx Pneumococcal Vaccination: 02/17/10 Review of Systems - Review of Systems Constitutional: denies: Chills, Fever EENT: No symptoms reported Cardiovascular: No symptoms reported Respiratory: See HPI Gastrointestinal: See HPI Genitourinary: No symptoms reported Female Genitourinary: No symptoms reported Musculoskeletal: No symptoms reported Skin: No symptoms reported Hematologic/Lymphatic: No symptoms reported Neurological/Psychological: No symptoms reported Physical Exam - Vital signs Vitals: Temp Pulse Resp BP Pulse Ox 98.8 F 109 H 18 112/69 92 03/18/17 13:02 03/18/17 13:02 03/18/17 13:02 03/18/17 13:02 03/18/17 13:02 Notes: Physical exam: GENERAL: 66 -year-old female, alert and oriented 3, no acute distress HEAD: Atraumatic, normocephalic. EYES: Pupils equal round and reactive to light, extraocular movements intact, sclera anicteric, conjunctiva are normal. ENT: TMs normal, nares patent, oropharynx clear without exudates. Moist mucous membranes. NECK: Normal range of motion, supple without obvious mass or JVD. LUNGS: Wheezing bilaterally HEART: Regular rate and rhythm without murmurs, rubs or gallops. ABDOMEN: Soft, hypoactive bowel sounds. Mild lower abdominal quadrant tenderness without rebound or guarding. No masses appreciated. Rectal: Brown stool, sent for study EXTREMITIES: Normal range of motion, no pitting or edema. No clubbing or cyanosis. NEUROLOGICAL: Cranial nerves II through XII grossly intact. Normal speech, moving all extremities. She has had strokes in the past she said the left side seems to be more weak at baseline. PSYCH: Normal mood, normal affect. SKIN: Warm, Dry, normal turgor, no rashes or lesions noted. Course - Vital Signs Vital signs: Temp Pulse Resp BP Pulse Ox 97.9 F 109 H 22 H 115/78 97 03/18/17 21:50 03/18/17 13:02 03/18/17 22:01 03/18/17 22:01 03/18/17 22:01 - Laboratory Result Diagrams: 03/18/17 19:51 03/18/17 18:55 Laboratory results interpreted by me: 03/18/17 03/18/17 03/18/17 17:30 18:55 19:51 RDW 18.8 H Seg Neutrophils % 88.8 H Lymphocytes % 5.1 L Absolute Lymphocytes 0.4 L Sodium 136.2 L Chloride 95 L Carbon Dioxide 36 H Glucose 111 H Magnesium 1.4 L Total Protein 5.8 L Albumin 3.4 L Lipase 16.6 L Urine Ketones TRACE H - Diagnostic Test Radiology reviewed: Image reviewed, Reports reviewed - Chest x-ray shows no infiltrates or effusions. Consistent with COPD. IJ line in place. - EKG Interpretation by Me Rate: Normal Rhythm: NSR - EKG shows normal sinus rhythm with a ventricular rate of 90, there is a left bundle branch block. EKG looks essentially unchanged with some variation due to lead placement. Procedures - Central Line Right Internal jugular Time completed: 19:12 Consent obtained: Yes Central line pre-insertion: Chloraprep applied, Sterile drapes applied Central line size (Fr.): 18 Central line lumen type: Triple Anesthetic type: 1% Lidocaine mL's of anesthesia: 5 Ultrasound guided: Yes CM at insertion site: 16 Line secured with sutures: Yes Central line post-insertion: Blood return from lumens, Biopatch applied, Sutured , Sterile dressing applied, Position confirmed w/ CXR Number of attempts: 2 Complications: No Notes: 03/18/17 19:13 MSBT (maximum sterile barrier technique) followed including cap, mask, sterile gloves, large sterile sheet, hand hygiene, sterile ultrasound probe sleeve, sterile saline for probe visualization, liberal ChloraPrep for cutaneous antisepsis both during procedure set up and immediately before Biopatch application, line stabilization with suture and sterile Tegaderm placement. Critical Care Note - Critical Care Note Total time excluding time spent on procedures (mins): 90 Discharge - Discharge Clinical Impression: Vomiting with nausea, Abdominal pain, COPD Condition: Stable Disposition: ADMITTED INPATIENT Admitting Provider: [facility] Admitted: Telemetry
--- NOTE | 2017-03-18 18:07 | RADIOLOGY REPORT (SQ) ---
EXAM DESCRIPTION: CT ABD/PELVIS NO ORAL OR IV COMPLETED DATE/TIME: 03/18/2017 5:46 pm REASON FOR STUDY: abdominal pain COMPARISON: January 2015 TECHNIQUE: CT scan of the abdomen and pelvis performed without intravenous or oral contrast. Images reviewed with lung, soft tissue, and bone windows. Reconstructed coronal and sagittal MPR images revi ewed. All images stored on PACS. All CT scanners at this facility use dose modulation, iterative reconstruction, and/or weight based d osing when appropriate to reduce radiation dose to as low as reasonably achievable (ALARA). [facility]: Dose Right [facility]: CareDose [facility]: Dose Right [facility]: Teradose 4D [facility]: Smart Citra Style RADIATION DOSE: CT Rad equipment meets quality standard of care and radiation dose reduction techniq ues were employed. CTDIvol: 18.4 mGy. DLP: 954 mGy-cm.mGy. LIMITATIONS: None. FINDINGS: LOWER CHEST: Predominately linear densities are identified in the lung bases left greater than right which could represent subsegmental atelectasis or scarring. NON-CONTRASTED LIVER, SPLEEN, ADRENALS: Evaluation limited by lack of IV contrast. No identified sign ificant masses. PANCREAS: No masses. No peripancreatic inflammatory changes. GALLBLADDER: The clinical history status post cholecystectomy. RIGHT KIDNEY AND URETER: No suspicious masses. Assessment limited by lack of IV contrast. No signif icant calcifications. No hydronephrosis or hydroureter. LEFT KIDNEY AND URETER: No suspicious masses. Assessment limited by lack of IV contrast. No signifi cant calcifications. No hydronephrosis or hydroureter. AORTA AND RETROPERITONEUM: No aneurysm. There is some mild ectasia of the abdominal aorta with vascu lar calcifications. Vascular stent is identified in the left common iliac artery. Fem-fem graft is identified extending in the anterior pelvic soft tissues. No retroperitoneal masses or adenopathy. BOWEL AND PERITONEAL CAVITY: No obvious masses or inflammatory changes. No free fluid. APPENDIX: Status post appendectomy. PELVIS, BLADDER, AND ABDOMINAL WALL:No abnormal masses. No free fluid. Bladder is not well evaluated due to its non distended state. Kaur catheter is identified in the bladder and there is air in the bladder presumably related to instrumentation. BONES: There is some compression of the superior endplates of the L2 and L5 vertebra unchanged from t he previous study OTHER: No other significant finding. IMPRESSION: NO SIGNIFICANT OR ACUTE PROCESS IN THE ABDOMEN OR PELVIS. COMMENT: Quality ID # [id number]: Final reports with documentation of one or more dose reduction techniques (e.g., Automated exposure control, adjustment of the mA and/or kV according to patient size, use of iterative reconstruction technique) TECHNICAL DOCUMENTATION: JOB ID: [id number] [email or web address]- All Rights Reserved
[2017-03-18 18:37] LABS: APPEARANCE,URINE SLIGHTLY-CLOUDY; BILIRUBIN,URINE NEGATIVE (NEGATIVE); COLOR,URINE YELLOW; GLUCOSE, URINE NEGATIVE (NEGATIVE); KETONES,URINE TRACE mg/dL (NEGATIVE); LEUKOCYTE ESTERASE,URINE NEGATIVE (NEGATIVE); NITRITE,URINE NEGATIVE (NEGATIVE); PROTEIN,URINE NEGATIVE (NEGATIVE); URINE SPECIFIC GRAVITY 1.014; UROBILINOGEN,URINE NEGATIVE mg/dL (<2.0)
--- NOTE | 2017-03-18 19:21 | RADIOLOGY REPORT (SQ) ---
EXAM DESCRIPTION: CHEST SINGLE VIEW COMPLETED DATE/TIME: 03/18/2017 7:05 pm REASON FOR STUDY: s/p right IJ central line COMPARISON: 03/18/2017 earlier. FINDINGS: Single-view chest AP portable supine timed approximately 1902 hours. Right IJ central line to the superior vena cava in appropriate position. No gross pneumothorax, rizvi antonia supine positioning limits. Stable chest otherwise. IMPRESSION: Appropriate right IJ central line. TECHNICAL DOCUMENTATION: JOB ID: [id number]
[2017-03-18 19:32] LABS: ALANINE AMINOTRANSFERASE 49 U/L (9-52); ALBUMIN 3.4 g/dL (3.5-5.0); ALKALINE PHOSPHATASE 71 U/L (38-126); ANION GAP 5 (5-19); ASPARTATE AMINO TRANSFERASE 24 U/L (14-36); BILIRUBIN,DIRECT 0.3 mg/dL (0.0-0.4); BILIRUBIN,TOTAL 0.4 mg/dL (0.2-1.3); BLOOD UREA NITROGEN 14 mg/dL (7-20); CALCIUM 8.8 mg/dL (8.4-10.2); CARBON DIOXIDE 36 mmol/L (22-30); CHLORIDE 95 mmol/L (98-107); GLUCOSE 111 mg/dL (75-110); LIPASE 16.6 U/L (23-300); MAGNESIUM 1.4 mg/dL (1.6-2.3); POTASSIUM 3.9 mmol/L (3.6-5.0); SODIUM 136.2 mmol/L (137-145); TOTAL PROTEIN 5.8 g/dL (6.3-8.2)
[2017-03-18 20:07] LABS: ABSOLUTE LYMPHOCYTES (AUTO) 0.4 10^3/uL (0.5-4.7); ABSOLUTE MONOCYTES (AUTO) 0.4 10^3/uL (0.1-1.4); ABSOLUTE NEUT (AUTO) 6.3 10^3/uL (1.7-8.2); BASOPHILS % (AUTO) 0.4 % (0-2); HEMATOCRIT 40.7 % (36.0-47.0); HEMOGLOBIN 13.1 g/dL (12.0-15.5); LYMPHOCYTES % (AUTO) 5.1 % (13-45); MEAN CORPUSCULAR HEMOGLOBIN 28.6 pg (27.0-33.4); MEAN CORPUSCULAR HGB CONC 32.1 g/dL (32.0-36.0); MEAN CORPUSCULAR VOLUME 89 fl (80-97); MONOCYTES % (AUTO) 5.7 % (3-13); PLATELET COUNT 245 10^3/uL (150-450); RED BLOOD COUNT 4.57 10^6/uL (3.72-5.28); RED CELL DISTRIBUTION WIDTH 18.8 % (11.5-14.0); SEGMENTED NEUTROPHILS % (AUTO) 88.8 % (42-78); TOTAL CELLS COUNTED % (AUTO) 100 %; WHITE BLOOD COUNT 7.1 10^3/uL (4.0-10.5)
[2017-03-18] MEDS ORDERED: CEFTRIAXONE 1 GM/D5W RTU 1 GM/50 ML RTUPB IV ONE (20:22)
[2017-03-18] MEDS: MAGNESIUM SULFATE/D5W 1 GM/100 ML RTUPB IV SCH ×2 (20:58→21:44)
[2017-03-18] MEDS ORDERED: CEFTRIAXONE SODIUM 1,000 MG in NORMAL SALINE 50 ML IV ONE (21:15)
[2017-03-18] MEDS ORDERED: IPRATROPIUM/ALBUTEROL 0.5-2.5 MG/3 ML AMPUL NEB ONE (21:46)
[2017-03-18] MEDS ORDERED: MORPHINE SULFATE 10 MG/ML INJ IV ONE (22:24)
[2017-03-19] MEDS: NORMAL SALINE 1000 ML 1,000 ML IV PRN ×2 (00:56→16:34)
[2017-03-19 05:41] LABS: ABSOLUTE EOSINOPHILS # (AUTO) 0.1 10^3/uL (0.0-0.6); ABSOLUTE LYMPHOCYTES (AUTO) 0.4 10^3/uL (0.5-4.7); ABSOLUTE MONOCYTES (AUTO) 0.4 10^3/uL (0.1-1.4); ABSOLUTE NEUT (AUTO) 4.1 10^3/uL (1.7-8.2); BASOPHILS % (AUTO) 0.4 % (0-2); EOSINOPHILS % (AUTO) 1.1 % (0-6); HEMATOCRIT 37.8 % (36.0-47.0); HEMOGLOBIN 12.2 g/dL (12.0-15.5); LYMPHOCYTES % (AUTO) 8.9 % (13-45); MEAN CORPUSCULAR HEMOGLOBIN 28.6 pg (27.0-33.4); MEAN CORPUSCULAR HGB CONC 32.4 g/dL (32.0-36.0); MEAN CORPUSCULAR VOLUME 88 fl (80-97); MONOCYTES % (AUTO) 8.1 % (3-13); PLATELET COUNT 241 10^3/uL (150-450); RED BLOOD COUNT 4.28 10^6/uL (3.72-5.28); RED CELL DISTRIBUTION WIDTH 18.3 % (11.5-14.0); SEGMENTED NEUTROPHILS % (AUTO) 81.5 % (42-78); TOTAL CELLS COUNTED % (AUTO) 100 %
[2017-03-19 06:07] LABS: ANION GAP 5 (5-19); BLOOD UREA NITROGEN 17 mg/dL (7-20); CALCIUM 8.1 mg/dL (8.4-10.2); CARBON DIOXIDE 32 mmol/L (22-30); CHLORIDE 100 mmol/L (98-107); GLUCOSE 68 mg/dL (75-110); POTASSIUM 4.2 mmol/L (3.6-5.0); SODIUM 137.2 mmol/L (137-145)
[2017-03-19] MEDS: ONDANSETRON 4 MG TAB.RAPDIS PO PRN ×2 (06:39→16:57)
[2017-03-19] MEDS: TRAMADOL HCL 50 MG TABLET PO PRN ×2 (06:40→16:33)
--- NOTE | 2017-03-19 08:12 | EKG REPORT ---
SEVERITY:- ABNORMAL ECG - SINUS RHYTHM PROBABLE LEFT ATRIAL ABNORMALITY LEFT BUNDLE BRANCH BLOCK : Confirmed by: Kg Small MD 19-Mar-2017 08:10:54
[2017-03-19] MEDS: ENOXAPARIN SODIUM INJ 40 MG/0.4 ML DISP.SYRIN SUBCUT SCH ×2 (10:08→13:31)
[2017-03-19] MEDS: IPRATROPIUM/ALBUTEROL 0.5-2.5 MG/3 ML AMPUL NEB PRN (14:41)
[2017-03-19] MEDS ORDERED: (PENDING PHARMACY ID) (Metformin Hcl [Metformin Hcl Er] 500 MG) PO SCH (17:15)
--- NOTE | 2017-03-19 17:57 | PDOC H&P ---
History of Present Illness Admission Date/PCP: 03/18/17 21:56 TANISHA POLLARD MD History of Present Illness: TORREY MARKS is a 66 year old female, she has end-stage COPD, she was just discharged from this hospital on 03/12/2017 to the intermediate, she is a resident of the intermediate at [facility] she was transferred from the intermediate to the emergency room for evaluation of abdominal pain ,diarrhea, in the emergency room she had CT scan of the abdomen and pelvis done, it was negative for any acute pathology. She is a DNR status, she is brought in for observation and management of her COPD. She probably could be discharged back to intermediate but patient is reluctant to be discharged back so soon to intermediate. She has end-stage COPD with baseline shortness of breath, she is on inhaled steroid and bronchodilators Past Medical History Cardiac Medical History: Reports: Congestive Heart Failure, Coronary Artery Disease, Hyperlipidema, Hypertension, Peripheral Vascular Disease Pulmonary Medical History: Reports: Asthma, Bronchitis, Chronic Obstructive Pulmonary Disease (COPD), Respiratory Failure, Sleep Apnea Neurological Medical History: Reports: Migraine Endocrine Medical History: Reports: Diabetes Mellitus Type 2 Renal/ Medical History: Malignancy Medical History: GI Medical History: Musculoskeltal Medical History: Reports: Arthritis, Fibromyalgia Psychiatric Medical History: Reports: Depression Traumatic Medical History: Denies: Traumatic Brain Injury Infectious Medical History: Reports: Clostridium Difficile, Methicillin- Resistant Staph Aureus Past Surgical History Past Surgical History: Reports: Amputation, Appendectomy, Cardiac Catheterization, Cholecystectomy, Coronary Stent, Hysterectomy, Orthopedic Surgery - right shoulder, Tubal Ligation, Vascular Surgery Social History Lives with: Skilled Nursing Smoking Status: Former Smoker Frequency of Alcohol Use: None Hx Recreational Drug Use: No Drugs: None Hx Prescription Drug Abuse: No - Advance Directive Resuscitation Status: Do Not Resuscitate Family History Family History: CAD, Hypertension, Other - Alzheimer's, renal failure Parental Family History Reviewed: Yes Children Family History Reviewed: Yes Sibling(s) Family History Reviewed.: Yes Medication/Allergy Home Medications: Atorvastatin Calcium [Lipitor 40 mg Tablet] 40 mg PO DAILY 03/19/17 Duloxetine HCl [Cymbalta] 60 mg PO DAILY 03/19/17 Fluticasone/Salmeterol [Advair 250-50 Diskus 14 Dose/Diskus] 1 puff IH Q12 03/19 Gabapentin [Neurontin 300 mg Capsule] 300 mg PO Q8 03/19/17 Insulin Detemir [Levemir Flextouch] 50 unit SQ BIDBS 03/19/17 Magnesium Oxide [Mag-Ox 400 mg Tablet] 400 mg PO DAILY 03/19/17 Melatonin [Melatonin 3 mg Tablet] 6 mg PO QHS 03/19/17 Metformin HCl [Metformin HCl ER] 500 mg PO WSUPPER 03/19/17 Simethicone [Mylicon 80 mg Chewable Tablet] 80 mg PO MEALSHS PRN 03/19/17 Spironolactone [Aldactone 25 mg Tablet] 12.5 mg PO DAILY 03/19/17 Allergies/Adverse Reactions: codeine [Codeine] Adverse Reaction (Unknown, Verified 08/23/16 08:03) Review of Systems Constitutional: ABSENT: chills, fever(s), headache(s), weight gain, weight loss Eyes: ABSENT: visual disturbances Ears: ABSENT: hearing changes Cardiovascular: PRESENT: dyspnea on exertion Respiratory: ABSENT: cough, hemoptysis Gastrointestinal: PRESENT: abdominal pain Genitourinary: ABSENT: dysuria, hematuria Musculoskeletal: ABSENT: joint swelling Integumentary: ABSENT: rash, wounds Neurological: ABSENT: abnormal gait, abnormal speech, confusion, dizziness, focal weakness, syncope Psychiatric: ABSENT: anxiety, depression, homidical ideation, suicidal ideation Endocrine: ABSENT: cold intolerance, heat intolerance, menstrual abnormalities, polydipsia, polyuria Hematologic/Lymphatic: ABSENT: easy bleeding, easy bruising, lymphadenopathy Physical Exam Vital Signs: Temp Pulse Resp BP Pulse Ox 99.2 F 99 16 120/68 94 03/19/17 15:45 03/19/17 15:45 03/19/17 15:45 03/19/17 15:45 03/19/17 15:45 Head exam: PRESENT: atraumatic, normocephalic Eye exam: PRESENT: conjunctiva pink, EOMI, PERRLA Ear exam: PRESENT: normal external ear exam Mouth exam: PRESENT: moist, tongue midline Neck exam: PRESENT: full ROM Respiratory exam: PRESENT: wheezes Cardiovascular exam: PRESENT: RRR, +S1, +S2 Vascular exam: PRESENT: normal capillary refill GI/Abdominal exam: PRESENT: soft Rectal exam: PRESENT: deferred Neurological exam: PRESENT: alert. ABSENT: motor sensory deficit Psychiatric exam: PRESENT: appropriate affect, normal mood Skin exam: PRESENT: dry, intact, warm Results Laboratory Results: 03/19/17 05:32 03/19/17 05:32 03/19/17 03/19/17 05:32 05:32 WBC 5.0 RBC 4.28 Hgb 12.2 Hct 37.8 MCV 88 MCH 28.6 MCHC 32.4 RDW 18.3 H Plt Count 241 Seg Neutrophils % 81.5 H Lymphocytes % 8.9 L Monocytes % 8.1 Eosinophils % 1.1 Basophils % 0.4 Absolute Neutrophils 4.1 Absolute Lymphocytes 0.4 L Absolute Monocytes 0.4 Absolute Eosinophils 0.1 Absolute Basophils 0.0 Sodium 137.2 Potassium 4.2 Chloride 100 Carbon Dioxide 32 H Anion Gap 5 BUN 17 Creatinine 0.58 Est GFR ( Amer) > 60 Est GFR (Non-Af Amer) > 60 Glucose 68 L Calcium 8.1 L Impressions: Abdomen/Pelvis CT 03/18/17 17:27 IMPRESSION: NO SIGNIFICANT OR ACUTE PROCESS IN THE ABDOMEN OR PELVIS. Chest X-Ray 03/18/17 18:57 IMPRESSION: Appropriate right IJ central line. Assessment & Plan - Diagnosis (1) COPD exacerbation Is this a current diagnosis for this admission?: Yes Plan: She is admitted for observation and management
[2017-03-19] MEDS: SPIRONOLACTONE 25 MG TABLET PO SCH (18:18)
[2017-03-19] MEDS: SIMETHICONE 80 MG TAB.CHEW PO PRN ×2 (18:18→21:40)
[2017-03-19] MEDS: MAGNESIUM OXIDE 400 MG TABLET PO SCH (18:18)
[2017-03-19] MEDS: HYDROMORPHONE HCL INJ/PF 2 MG/ML AMPULE IV PRN (21:37)
[2017-03-19] MEDS: ATORVASTATIN CALCIUM 40 MG TABLET PO SCH (21:39)
[2017-03-19] MEDS: MELATONIN 3 MG TABLET PO SCH (21:40)
[2017-03-19] MEDS: GABAPENTIN 300 MG CAPSULE PO SCH (21:40)
[2017-03-19] MEDS: FLUTICASONE/SALMETEROL DISKUS 250-50 MCG/DOSE IH SCH (21:42)
[2017-03-19] MEDS: INSULIN DETEMIR 100 UNIT/ML 3 ML PEN SUBCUT SCH (21:43)
[2017-03-20] MEDS: HYDROMORPHONE HCL INJ/PF 2 MG/ML AMPULE IV PRN ×3 (00:50→17:39)
[2017-03-20] MEDS: ONDANSETRON 4 MG TAB.RAPDIS PO PRN (00:51)
[2017-03-20] MEDS: GABAPENTIN 300 MG CAPSULE PO SCH ×3 (06:48→21:11)
[2017-03-20] MEDS: NORMAL SALINE 1000 ML 1,000 ML IV PRN ×2 (06:52→13:55)
[2017-03-20 07:07] LABS: ABSOLUTE EOSINOPHILS # (AUTO) 0.1 10^3/uL (0.0-0.6); ABSOLUTE LYMPHOCYTES (AUTO) 0.7 10^3/uL (0.5-4.7); ABSOLUTE MONOCYTES (AUTO) 0.5 10^3/uL (0.1-1.4); ABSOLUTE NEUT (AUTO) 2.9 10^3/uL (1.7-8.2); BASOPHILS % (AUTO) 0.4 % (0-2); EOSINOPHILS % (AUTO) 2.2 % (0-6); HEMATOCRIT 35.9 % (36.0-47.0); HEMOGLOBIN 11.5 g/dL (12.0-15.5); LYMPHOCYTES % (AUTO) 16.1 % (13-45); MEAN CORPUSCULAR HEMOGLOBIN 28.7 pg (27.0-33.4); MEAN CORPUSCULAR VOLUME 90 fl (80-97); MONOCYTES % (AUTO) 12.5 % (3-13); PLATELET COUNT 260 10^3/uL (150-450); RED CELL DISTRIBUTION WIDTH 18.6 % (11.5-14.0); SEGMENTED NEUTROPHILS % (AUTO) 68.8 % (42-78); TOTAL CELLS COUNTED % (AUTO) 100 %; WHITE BLOOD COUNT 4.2 10^3/uL (4.0-10.5)
[2017-03-20 07:30] LABS: ANION GAP 7 (5-19); BLOOD UREA NITROGEN 15 mg/dL (7-20); CALCIUM 8.2 mg/dL (8.4-10.2); CARBON DIOXIDE 33 mmol/L (22-30); CHLORIDE 98 mmol/L (98-107); GLUCOSE 91 mg/dL (75-110); POTASSIUM 4.7 mmol/L (3.6-5.0); SODIUM 138.1 mmol/L (137-145)
[2017-03-20] MEDS: IPRATROPIUM/ALBUTEROL 0.5-2.5 MG/3 ML AMPUL NEB PRN (09:34)
[2017-03-20] MEDS: METFORMIN HCL 500 MG TABLET PO SCH ×2 (09:55→17:09)
[2017-03-20] MEDS: DULOXETINE HCL 30 MG CAPSULE.DR PO SCH (09:55)
[2017-03-20] MEDS: FLUTICASONE/SALMETEROL DISKUS 250-50 MCG/DOSE IH SCH ×2 (09:56→21:10)
[2017-03-20] MEDS: SIMETHICONE 80 MG TAB.CHEW PO PRN ×4 (09:56→21:09)
[2017-03-20] MEDS: INSULIN DETEMIR 100 UNIT/ML 3 ML PEN SUBCUT SCH ×2 (11:12→21:11)
--- NOTE | 2017-03-20 14:41 | Physician Advisory Note ---
Physician Advisor ProgressNote .: Pursuant to the plan for Toya Phillip, I have reviewed the medical record for this patient. Physician Advisor Statement: Please consider documenting, if you agree: 1. "N/V/D/abd pain, suspect due to " (if this is the main reason pt needed to stay in hospital rather than go back to SNF the first day, please list this as Principal Dx [#1]). 2. "chronic hypoxemic respiratory failure requiring 3L O2 at baseline" 3. "chronic systolic CHF w/EF 25%" & "pulmonary HTN" 4. Findings supporting dx of "COPD exacerbation", rather than "end-stage COPD, at baseline": A. Increased cough > baseline? B. Increased sputum > baseline? C. Increased dyspnea > baseline? Thanks! CK
[2017-03-20] MEDS: SPIRONOLACTONE 25 MG TABLET PO SCH (17:08)
[2017-03-20] MEDS: MAGNESIUM OXIDE 400 MG TABLET PO SCH (17:08)
[2017-03-20] MEDS ORDERED: FUROSEMIDE INJ/PF 40 MG/4 ML SDV IV ONE (20:30)
--- NOTE | 2017-03-20 20:38 | PDOC PROGRESS REPORT ---
Subjective Progress Note for:: 03/20/17 Subjective:: Patient's main concern is pain control, presently on intravenous Dilaudid on a as needed basis, reduce urinary output, minimal oral intake today, she was admitted yesterday when she presented to the emergency room with abdominal pain and shortness of breath, CT scan of the abdomen and pelvis was done it was negative for any acute pathology but the emergency room physician insisted that patient needed to be admitted because of COPD. She has end-stage COPD with a baseline shortness of breath, her condition is not reversible, hospice consultation will be requested for this patient to help manage her pain and for comfort care Reason For Visit: GASTROENTERITIS Physical Exam Vital Signs: Temp Pulse Resp BP Pulse Ox 97.7 F 103 H 20 127/70 H 90 L 03/20/17 20:00 03/20/17 20:00 03/20/17 20:00 03/20/17 20:00 03/20/17 20:00 Intake & Output 03/19/17 03/20/17 03/21/17 06:59 06:59 06:59 Intake Total 355 Balance 355 Weight 109.5 kg 108 kg Eye exam: PRESENT: PERRLA Respiratory exam: PRESENT: rhonchi Cardiovascular exam: PRESENT: +S1, +S2 GI/Abdominal exam: PRESENT: soft Neurological exam: PRESENT: alert Results Laboratory Results: 03/20/17 06:40 03/20/17 06:40 03/20/17 03/20/17 06:40 06:40 WBC 4.2 RBC 4.00 Hgb 11.5 L Hct 35.9 L MCV 90 MCH 28.7 MCHC 32.0 RDW 18.6 H Plt Count 260 Seg Neutrophils % 68.8 Lymphocytes % 16.1 Monocytes % 12.5 Eosinophils % 2.2 Basophils % 0.4 Absolute Neutrophils 2.9 Absolute Lymphocytes 0.7 Absolute Monocytes 0.5 Absolute Eosinophils 0.1 Absolute Basophils 0.0 Sodium 138.1 Potassium 4.7 Chloride 98 Carbon Dioxide 33 H Anion Gap 7 BUN 15 Creatinine 0.76 Est GFR ( Amer) > 60 Est GFR (Non-Af Amer) > 60 Glucose 91 Calcium 8.2 L Impressions: Abdomen/Pelvis CT 03/18/17 17:27 IMPRESSION: NO SIGNIFICANT OR ACUTE PROCESS IN THE ABDOMEN OR PELVIS. Chest X-Ray 03/18/17 18:57 IMPRESSION: Appropriate right IJ central line. Assessment & Plan - Diagnosis (1) COPD exacerbation Is this a current diagnosis for this admission?: Yes (2) Decreased urination Is this a current diagnosis for this admission?: Yes Plan: Give Lasix 40 mg IV 1 dose (3) Abdominal pain Qualifiers: Abdominal location: unspecified location Qualified Code(s): R10.9 - Unspecified abdominal pain Is this a current diagnosis for this admission?: Yes (4) Chronic respiratory failure Qualifiers: Respiratory failure complication: unspecified whether with hypoxia or hypercapnia Qualified Code(s): J96.10 - Chronic respiratory failure, unspecified whether with hypoxia or hypercapnia Is this a current diagnosis for this admission?: Yes (5) Coronary artery disease Qualifiers: Coronary Disease-Associated Artery/Lesion type: [place] artery [place] vs. transplanted heart: [place] heart Associated angina: angina presence unspecified Qualified Code(s): I25.10 - Atherosclerotic heart disease of [place] coronary artery without angina pectoris Is this a current diagnosis for this admission?: Yes (6) Diabetes mellitus type 2 in obese Is this a current diagnosis for this admission?: Yes
[2017-03-20] MEDS: ATORVASTATIN CALCIUM 40 MG TABLET PO SCH (21:09)
[2017-03-20] MEDS: MELATONIN 3 MG TABLET PO SCH (21:09)
[2017-03-21] MEDS: GABAPENTIN 300 MG CAPSULE PO SCH ×3 (06:24→22:09)
[2017-03-21 07:00] LABS: ABSOLUTE EOSINOPHILS # (AUTO) 0.1 10^3/uL (0.0-0.6); ABSOLUTE LYMPHOCYTES (AUTO) 0.8 10^3/uL (0.5-4.7); ABSOLUTE MONOCYTES (AUTO) 0.5 10^3/uL (0.1-1.4); ABSOLUTE NEUT (AUTO) 2.3 10^3/uL (1.7-8.2); BASOPHILS % (AUTO) 0.4 % (0-2); HEMATOCRIT 32.3 % (36.0-47.0); HEMOGLOBIN 10.2 g/dL (12.0-15.5); LYMPHOCYTES % (AUTO) 21.8 % (13-45); MEAN CORPUSCULAR HEMOGLOBIN 28.3 pg (27.0-33.4); MEAN CORPUSCULAR HGB CONC 31.5 g/dL (32.0-36.0); MEAN CORPUSCULAR VOLUME 90 fl (80-97); MONOCYTES % (AUTO) 14.2 % (3-13); PLATELET COUNT 245 10^3/uL (150-450); RED BLOOD COUNT 3.59 10^6/uL (3.72-5.28); RED CELL DISTRIBUTION WIDTH 18.4 % (11.5-14.0); SEGMENTED NEUTROPHILS % (AUTO) 60.6 % (42-78); TOTAL CELLS COUNTED % (AUTO) 100 %; WHITE BLOOD COUNT 3.8 10^3/uL (4.0-10.5)
[2017-03-21 07:22] LABS: ANION GAP 5 (5-19); BLOOD UREA NITROGEN 9 mg/dL (7-20); CALCIUM 7.9 mg/dL (8.4-10.2); CARBON DIOXIDE 36 mmol/L (22-30); CHLORIDE 97 mmol/L (98-107); GLUCOSE 185 mg/dL (75-110); POTASSIUM 4.2 mmol/L (3.6-5.0); SODIUM 137.7 mmol/L (137-145)
[2017-03-21] MEDS: NORMAL SALINE 1000 ML 1,000 ML IV PRN (10:50)
[2017-03-21] MEDS: ENOXAPARIN SODIUM INJ 40 MG/0.4 ML DISP.SYRIN SUBCUT SCH (10:51)
[2017-03-21] MEDS: FLUTICASONE/SALMETEROL DISKUS 250-50 MCG/DOSE IH SCH ×2 (10:52→22:09)
[2017-03-21] MEDS: METFORMIN HCL 500 MG TABLET PO SCH ×2 (10:52→17:57)
[2017-03-21] MEDS: SIMETHICONE 80 MG TAB.CHEW PO PRN ×4 (10:53→22:09)
[2017-03-21] MEDS: DULOXETINE HCL 30 MG CAPSULE.DR PO SCH (10:53)
[2017-03-21] MEDS: INSULIN DETEMIR 100 UNIT/ML 3 ML PEN SUBCUT SCH ×2 (11:09→22:09)
[2017-03-21] MEDS: HYDROMORPHONE HCL INJ/PF 2 MG/ML AMPULE IV PRN ×3 (11:32→22:09)
[2017-03-21] MEDS: ONDANSETRON 4 MG TAB.RAPDIS PO PRN (13:54)
[2017-03-21] MEDS: SPIRONOLACTONE 25 MG TABLET PO SCH (17:56)
[2017-03-21] MEDS: MAGNESIUM OXIDE 400 MG TABLET PO SCH (17:57)
--- NOTE | 2017-03-21 21:18 | PDOC PROGRESS REPORT ---
Subjective Progress Note for:: 03/21/17 Subjective:: I had a long discussion with the patient and family about hospice care ,I recommend hospice care for her at this stage of her disease, the main concern for this patient is pain control, she has end-stage COPD, chronic respiratory failure dependent on oxygen whenever she uses opioid to control her chronic pain she would develop acute respiratory distress requiring noninvasive positive pressure ventilation, BiPAP to support breathing, patient will think about hospice as an option of care for her Reason For Visit: COPD EXACERBATION Physical Exam Vital Signs: Temp Pulse Resp BP Pulse Ox 98.8 F 109 H 20 126/70 H 91 L 03/21/17 19:29 03/21/17 19:29 03/21/17 19:29 03/21/17 19:29 03/21/17 19:29 General appearance: PRESENT: no acute distress Eye exam: PRESENT: PERRLA Respiratory exam: PRESENT: clear to auscultation rolf Cardiovascular exam: PRESENT: +S1, +S2 GI/Abdominal exam: PRESENT: soft Neurological exam: PRESENT: alert Results Impressions: Abdomen/Pelvis CT 03/18/17 17:27 IMPRESSION: NO SIGNIFICANT OR ACUTE PROCESS IN THE ABDOMEN OR PELVIS. Chest X-Ray 03/18/17 18:57 IMPRESSION: Appropriate right IJ central line. Assessment & Plan - Diagnosis (1) COPD exacerbation Is this a current diagnosis for this admission?: Yes (2) Decreased urination Is this a current diagnosis for this admission?: Yes (3) Abdominal pain Qualifiers: Abdominal location: unspecified location Qualified Code(s): R10.9 - Unspecified abdominal pain Is this a current diagnosis for this admission?: Yes (4) Chronic respiratory failure Qualifiers: Respiratory failure complication: unspecified whether with hypoxia or hypercapnia Qualified Code(s): J96.10 - Chronic respiratory failure, unspecified whether with hypoxia or hypercapnia Is this a current diagnosis for this admission?: Yes (5) Coronary artery disease Qualifiers: Coronary Disease-Associated Artery/Lesion type: [place] artery [place] vs. transplanted heart: [place] heart Associated angina: angina presence unspecified Qualified Code(s): I25.10 - Atherosclerotic heart disease of [place] coronary artery without angina pectoris Is this a current diagnosis for this admission?: Yes (6) Diabetes mellitus type 2 in obese Is this a current diagnosis for this admission?: Yes
[2017-03-21] MEDS: ATORVASTATIN CALCIUM 40 MG TABLET PO SCH (22:09)
[2017-03-21] MEDS: MELATONIN 3 MG TABLET PO SCH (22:09)
[2017-03-22] MEDS: GABAPENTIN 300 MG CAPSULE PO SCH ×3 (06:24→22:18)
[2017-03-22] MEDS: ENOXAPARIN SODIUM INJ 40 MG/0.4 ML DISP.SYRIN SUBCUT SCH (10:17)
[2017-03-22] MEDS: METFORMIN HCL 500 MG TABLET PO SCH ×2 (10:18→17:53)
[2017-03-22] MEDS: DULOXETINE HCL 30 MG CAPSULE.DR PO SCH (10:18)
[2017-03-22] MEDS: SIMETHICONE 80 MG TAB.CHEW PO PRN ×4 (10:18→22:19)
[2017-03-22] MEDS: HYDROMORPHONE HCL INJ/PF 2 MG/ML AMPULE IV PRN ×2 (10:19→20:34)
[2017-03-22] MEDS: FLUTICASONE/SALMETEROL DISKUS 250-50 MCG/DOSE IH SCH ×2 (10:22→22:19)
[2017-03-22] MEDS: INSULIN DETEMIR 100 UNIT/ML 3 ML PEN SUBCUT SCH ×2 (10:27→22:17)
--- NOTE | 2017-03-22 12:19 | PDOC PROGRESS REPORT ---
Subjective Progress Note for:: 03/22/17 Reason For Visit: COPD EXACERBATION pt is doing same pt still not deciede about hospic nocp no sob Physical Exam Vital Signs: Temp Pulse Resp BP Pulse Ox 98.6 F 109 H 18 109/61 93 03/21/17 22:57 03/22/17 10:33 03/22/17 10:33 03/21/17 22:57 03/22/17 10:33 Intake & Output 03/21/17 03/22/17 03/23/17 06:59 06:59 06:59 Intake Total 2021 Output Total 300 Balance 1722 Weight 115.5 kg General appearance: PRESENT: no acute distress, well-developed, well-nourished Head exam: PRESENT: atraumatic, normocephalic Eye exam: PRESENT: conjunctiva pink, EOMI, PERRLA. ABSENT: scleral icterus Ear exam: PRESENT: normal external ear exam Mouth exam: PRESENT: moist, tongue midline Neck exam: PRESENT: full ROM. ABSENT: carotid bruit, JVD, lymphadenopathy, thyromegaly Respiratory exam: PRESENT: decreased breath sounds Cardiovascular exam: PRESENT: RRR. ABSENT: diastolic murmur, rubs, systolic murmur Pulses: PRESENT: normal dorsalis pedis pul, +2 pedal pulses bilateral Vascular exam: PRESENT: normal capillary refill GI/Abdominal exam: PRESENT: normal bowel sounds, soft. ABSENT: distended, guarding, mass, organolmegaly, rebound, tenderness Rectal exam: PRESENT: deferred Extremities exam: ABSENT: pedal edema Neurological exam: PRESENT: alert, awake, oriented to person, oriented to place , oriented to time, oriented to situation, CN II-XII grossly intact. ABSENT: motor sensory deficit Psychiatric exam: PRESENT: appropriate affect, normal mood. ABSENT: homicidal ideation, suicidal ideation Skin exam: PRESENT: dry, intact, warm. ABSENT: cyanosis, rash Results Impressions: Abdomen/Pelvis CT 03/18/17 17:27 IMPRESSION: NO SIGNIFICANT OR ACUTE PROCESS IN THE ABDOMEN OR PELVIS. Chest X-Ray 03/18/17 18:57 IMPRESSION: Appropriate right IJ central line. Assessment & Plan - Diagnosis (1) COPD exacerbation Is this a current diagnosis for this admission?: Yes (2) Acute and chronic respiratory failure with hypercapnia Is this a current diagnosis for this admission?: Yes (3) Anxiety Is this a current diagnosis for this admission?: Yes (4) CHF (congestive heart failure) Qualifiers: Congestive heart failure type: systolic Congestive heart failure chronicity : chronic Qualified Code(s): I50.22 - Chronic systolic (congestive) heart failure Is this a current diagnosis for this admission?: Yes (5) Cardiomyopathy Qualifiers: Cardiomyopathy type: unspecified Qualified Code(s): I42.9 - Cardiomyopathy , unspecified Is this a current diagnosis for this admission?: Yes (6) Coronary artery disease Qualifiers: Coronary Disease-Associated Artery/Lesion type: [place] artery [place] vs. transplanted heart: [place] heart Associated angina: angina presence unspecified Qualified Code(s): I25.10 - Atherosclerotic heart disease of [place] coronary artery without angina pectoris Is this a current diagnosis for this admission?: Yes (7) Diabetes mellitus type 2 in obese Is this a current diagnosis for this admission?: Yes (8) Narcotic dependence Is this a current diagnosis for this admission?: Yes - Time Time Spent with patient: 15-24 minutes Medications reviewed and adjusted accordingly: Yes Anticipated discharge: Other Within: Other - Inpatient Certification Medical Necessity: Need Close Monitoring Due to Risk of Patient Decompensation Post Hospital Care: D/C [employer] Documentation - Plan Summary Plan Summary: d/w pt about hospic care poor prognosisi
[2017-03-22] MEDS: SPIRONOLACTONE 25 MG TABLET PO SCH (17:52)
[2017-03-22] MEDS: MAGNESIUM OXIDE 400 MG TABLET PO SCH (17:54)
[2017-03-22] MEDS: NORMAL SALINE 1000 ML 1,000 ML IV PRN (17:54)
[2017-03-22] MEDS: ATORVASTATIN CALCIUM 40 MG TABLET PO SCH (22:18)
[2017-03-22] MEDS: MELATONIN 3 MG TABLET PO SCH (22:19)
[2017-03-23] MEDS: NORMAL SALINE 1000 ML 1,000 ML IV PRN ×2 (03:46→15:44)
[2017-03-23] MEDS: GABAPENTIN 300 MG CAPSULE PO SCH ×3 (05:36→21:20)
[2017-03-23] MEDS: HYDROMORPHONE HCL INJ/PF 2 MG/ML AMPULE IV PRN ×2 (06:19→18:26)
[2017-03-23] MEDS: FLUTICASONE/SALMETEROL DISKUS 250-50 MCG/DOSE IH SCH ×2 (09:32→21:21)
[2017-03-23] MEDS: METFORMIN HCL 500 MG TABLET PO SCH ×2 (09:33→17:56)
[2017-03-23] MEDS: ENOXAPARIN SODIUM INJ 40 MG/0.4 ML DISP.SYRIN SUBCUT SCH (09:36)
[2017-03-23] MEDS: DULOXETINE HCL 30 MG CAPSULE.DR PO SCH (09:37)
[2017-03-23] MEDS: SIMETHICONE 80 MG TAB.CHEW PO PRN ×4 (09:38→21:20)
--- NOTE | 2017-03-23 12:36 | PDOC PROGRESS REPORT ---
Subjective Progress Note for:: 03/23/17 Subjective:: pt is curr on bipap ask more pain med still confused Reason For Visit: COPD EXACERBATION Physical Exam Vital Signs: Temp Pulse Resp BP Pulse Ox 98.1 F 101 H 15 112/74 97 03/22/17 23:55 03/23/17 03:40 03/23/17 08:33 03/22/17 23:55 03/23/17 08:33 Intake & Output 03/22/17 03/23/17 03/24/17 06:59 06:59 06:59 Intake Total 2021 1325 Output Total 300 700 Balance 1722 625 Weight 115.5 kg 115.5 kg General appearance: PRESENT: mild distress Eye exam: PRESENT: PERRLA Neck exam: ABSENT: JVD Respiratory exam: PRESENT: decreased breath sounds Cardiovascular exam: PRESENT: +S1, +S2 GI/Abdominal exam: PRESENT: normal bowel sounds, soft Extremities exam: ABSENT: pedal edema Neurological exam: PRESENT: altered Psychiatric exam: PRESENT: anxious Results Impressions: Abdomen/Pelvis CT 03/18/17 17:27 IMPRESSION: NO SIGNIFICANT OR ACUTE PROCESS IN THE ABDOMEN OR PELVIS. Chest X-Ray 03/18/17 18:57 IMPRESSION: Appropriate right IJ central line. Assessment & Plan - Diagnosis (1) COPD exacerbation Is this a current diagnosis for this admission?: Yes Plan: cont curr neb (2) Acute and chronic respiratory failure with hypercapnia Is this a current diagnosis for this admission?: Yes Plan: cont on bipap (3) Anxiety Is this a current diagnosis for this admission?: Yes (4) CHF (congestive heart failure) Qualifiers: Congestive heart failure type: systolic Congestive heart failure chronicity : chronic Qualified Code(s): I50.22 - Chronic systolic (congestive) heart failure Is this a current diagnosis for this admission?: Yes Plan: cont curr med (5) Cardiomyopathy Qualifiers: Cardiomyopathy type: unspecified Qualified Code(s): I42.9 - Cardiomyopathy , unspecified Is this a current diagnosis for this admission?: Yes (6) Coronary artery disease Qualifiers: Coronary Disease-Associated Artery/Lesion type: [place] artery [place] vs. transplanted heart: [place] heart Associated angina: angina presence unspecified Qualified Code(s): I25.10 - Atherosclerotic heart disease of [place] coronary artery without angina pectoris Is this a current diagnosis for this admission?: Yes (7) Diabetes mellitus type 2 in obese Is this a current diagnosis for this admission?: Yes (8) Narcotic dependence Is this a current diagnosis for this admission?: Yes - Time Time Spent with patient: 15-24 minutes Medications reviewed and adjusted accordingly: Yes Anticipated discharge: Other Within: Other - Inpatient Certification Medical Necessity: Need Close Monitoring Due to Risk of Patient Decompensation 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
[2017-03-23] MEDS: IPRATROPIUM/ALBUTEROL 0.5-2.5 MG/3 ML AMPUL NEB PRN (15:00)
[2017-03-23] MEDS: SPIRONOLACTONE 25 MG TABLET PO SCH (17:57)
[2017-03-23] MEDS: NYSTATIN TOPICAL POWDER 15 GM TP SCH (17:58)
[2017-03-23] MEDS: TRAMADOL HCL 50 MG TABLET PO PRN (17:58)
[2017-03-23] MEDS: MAGNESIUM OXIDE 400 MG TABLET PO SCH (17:58)
[2017-03-23] MEDS: INSULIN DETEMIR 100 UNIT/ML 3 ML PEN SUBCUT SCH ×2 (17:59→21:21)
[2017-03-23] MEDS: MELATONIN 3 MG TABLET PO SCH (21:20)
[2017-03-23] MEDS: ATORVASTATIN CALCIUM 40 MG TABLET PO SCH (21:21)
[2017-03-24] MEDS: NORMAL SALINE 1000 ML 1,000 ML IV PRN ×2 (04:37→13:50)
[2017-03-24 05:39] LABS: ABSOLUTE EOSINOPHILS # (AUTO) 0.1 10^3/uL (0.0-0.6); ABSOLUTE LYMPHOCYTES (AUTO) 0.7 10^3/uL (0.5-4.7); ABSOLUTE MONOCYTES (AUTO) 0.7 10^3/uL (0.1-1.4); ABSOLUTE NEUT (AUTO) 4.4 10^3/uL (1.7-8.2); BASOPHILS % (AUTO) 0.5 % (0-2); EOSINOPHILS % (AUTO) 2.3 % (0-6); LYMPHOCYTES % (AUTO) 11.5 % (13-45); MEAN CORPUSCULAR HEMOGLOBIN 28.6 pg (27.0-33.4); MEAN CORPUSCULAR HGB CONC 32.2 g/dL (32.0-36.0); MEAN CORPUSCULAR VOLUME 89 fl (80-97); MONOCYTES % (AUTO) 12.4 % (3-13); PLATELET COUNT 272 10^3/uL (150-450); RED BLOOD COUNT 3.49 10^6/uL (3.72-5.28); RED CELL DISTRIBUTION WIDTH 18.7 % (11.5-14.0); SEGMENTED NEUTROPHILS % (AUTO) 73.3 % (42-78); TOTAL CELLS COUNTED % (AUTO) 100 %; WHITE BLOOD COUNT 5.9 10^3/uL (4.0-10.5)
[2017-03-24 05:44] LABS: ANION GAP 5 (5-19); BLOOD UREA NITROGEN 7 mg/dL (7-20); CALCIUM 8.6 mg/dL (8.4-10.2); CARBON DIOXIDE 38 mmol/L (22-30); CHLORIDE 99 mmol/L (98-107); GLUCOSE 123 mg/dL (75-110); POTASSIUM 3.9 mmol/L (3.6-5.0); SODIUM 142.4 mmol/L (137-145)
[2017-03-24] MEDS: GABAPENTIN 300 MG CAPSULE PO SCH ×3 (05:55→21:55)
[2017-03-24] MEDS: HYDROMORPHONE HCL INJ/PF 2 MG/ML AMPULE IV PRN ×4 (05:58→23:18)
[2017-03-24] MEDS: METFORMIN HCL 500 MG TABLET PO SCH ×2 (10:20→17:43)
[2017-03-24] MEDS: DULOXETINE HCL 30 MG CAPSULE.DR PO SCH (10:22)
[2017-03-24] MEDS: NYSTATIN TOPICAL POWDER 15 GM TP SCH ×2 (10:23→17:43)
[2017-03-24] MEDS: ENOXAPARIN SODIUM INJ 40 MG/0.4 ML DISP.SYRIN SUBCUT SCH (10:24)
[2017-03-24] MEDS: SIMETHICONE 80 MG TAB.CHEW PO PRN ×4 (10:29→21:54)
[2017-03-24] MEDS: FLUTICASONE/SALMETEROL DISKUS 250-50 MCG/DOSE IH SCH ×2 (10:29→21:54)
[2017-03-24] MEDS: INSULIN DETEMIR 100 UNIT/ML 3 ML PEN SUBCUT SCH ×2 (10:29→21:56)
[2017-03-24] MEDS: MAGNESIUM OXIDE 400 MG TABLET PO SCH (17:41)
[2017-03-24] MEDS: SPIRONOLACTONE 25 MG TABLET PO SCH (17:42)
[2017-03-24] MEDS: MELATONIN 3 MG TABLET PO SCH (21:54)
[2017-03-24] MEDS: ATORVASTATIN CALCIUM 40 MG TABLET PO SCH (21:55)
--- NOTE | 2017-03-24 22:57 | PDOC PROGRESS REPORT ---
Subjective Progress Note for:: 03/24/17 Subjective:: Patient's condition is about the same, she continues to depend on noninvasive positive pressure ventilation BiPAP, also requiring Dilaudid for pain control. Discharge planning is making arrangement to get hrt transfer to hospice ,as soon as a place for hospice is arranged she be transferred Reason For Visit: COPD EXACERBATION Physical Exam Vital Signs: Temp Pulse Resp BP Pulse Ox 98.8 F 104 H 21 H 136/65 H 93 03/24/17 19:34 03/24/17 19:34 03/24/17 19:50 03/24/17 19:34 03/24/17 19:34 Intake & Output 03/23/17 03/24/17 03/25/17 06:59 06:59 06:59 Intake Total 1325 2700 1302 Output Total 700 750 Balance 625 1950 1302 Weight 115.5 kg 118.1 kg Eye exam: PRESENT: PERRLA Respiratory exam: PRESENT: rhonchi Cardiovascular exam: PRESENT: +S1, +S2 GI/Abdominal exam: PRESENT: soft Neurological exam: PRESENT: alert Results Laboratory Results: 03/24/17 04:45 03/24/17 04:45 03/24/17 03/24/17 04:45 04:45 WBC 5.9 RBC 3.49 L Hgb 10.0 L Hct 31.0 L MCV 89 MCH 28.6 MCHC 32.2 RDW 18.7 H Plt Count 272 Seg Neutrophils % 73.3 Lymphocytes % 11.5 L Monocytes % 12.4 Eosinophils % 2.3 Basophils % 0.5 Absolute Neutrophils 4.4 Absolute Lymphocytes 0.7 Absolute Monocytes 0.7 Absolute Eosinophils 0.1 Absolute Basophils 0.0 Sodium 142.4 Potassium 3.9 Chloride 99 Carbon Dioxide 38 H Anion Gap 5 BUN 7 Creatinine 0.48 L Est GFR ( Amer) > 60 Est GFR (Non-Af Amer) > 60 Glucose 123 H Calcium 8.6 Impressions: Abdomen/Pelvis CT 03/18/17 17:27 IMPRESSION: NO SIGNIFICANT OR ACUTE PROCESS IN THE ABDOMEN OR PELVIS. Chest X-Ray 03/18/17 18:57 IMPRESSION: Appropriate right IJ central line. Assessment & Plan - Diagnosis (1) COPD exacerbation Is this a current diagnosis for this admission?: Yes (2) Decreased urination Is this a current diagnosis for this admission?: Yes (3) Abdominal pain Qualifiers: Abdominal location: unspecified location Qualified Code(s): R10.9 - Unspecified abdominal pain Is this a current diagnosis for this admission?: Yes (4) Chronic respiratory failure Qualifiers: Respiratory failure complication: unspecified whether with hypoxia or hypercapnia Qualified Code(s): J96.10 - Chronic respiratory failure, unspecified whether with hypoxia or hypercapnia Is this a current diagnosis for this admission?: Yes (5) Coronary artery disease Qualifiers: Coronary Disease-Associated Artery/Lesion type: [place] artery [place] vs. transplanted heart: [place] heart Associated angina: angina presence unspecified Qualified Code(s): I25.10 - Atherosclerotic heart disease of [place] coronary artery without angina pectoris Is this a current diagnosis for this admission?: Yes (6) Diabetes mellitus type 2 in obese Is this a current diagnosis for this admission?: Yes
[2017-03-25] MEDS: GABAPENTIN 300 MG CAPSULE PO SCH ×3 (06:32→22:10)
[2017-03-25] MEDS: HYDROMORPHONE HCL INJ/PF 2 MG/ML AMPULE IV PRN ×4 (06:33→20:08)
[2017-03-25 07:37] LABS: BLOOD UREA NITROGEN 8 mg/dL (7-20); CALCIUM 8.8 mg/dL (8.4-10.2); CARBON DIOXIDE 38 mmol/L (22-30); CHLORIDE 101 mmol/L (98-107); GLUCOSE 144 mg/dL (75-110); POTASSIUM 3.9 mmol/L (3.6-5.0); SODIUM 142.5 mmol/L (137-145)
[2017-03-25 07:39] LABS: ANION GAP 4 (5-19)
[2017-03-25] MEDS: DULOXETINE HCL 30 MG CAPSULE.DR PO SCH (09:15)
[2017-03-25] MEDS: METFORMIN HCL 500 MG TABLET PO SCH ×2 (09:15→17:45)
[2017-03-25] MEDS: NYSTATIN TOPICAL POWDER 15 GM TP SCH ×2 (09:16→17:48)
[2017-03-25] MEDS: FLUTICASONE/SALMETEROL DISKUS 250-50 MCG/DOSE IH SCH ×2 (09:16→22:10)
[2017-03-25] MEDS: ENOXAPARIN SODIUM INJ 40 MG/0.4 ML DISP.SYRIN SUBCUT SCH (09:20)
[2017-03-25] MEDS: SIMETHICONE 80 MG TAB.CHEW PO PRN ×4 (09:24→22:10)
[2017-03-25] MEDS: INSULIN DETEMIR 100 UNIT/ML 3 ML PEN SUBCUT SCH ×2 (09:25→23:13)
[2017-03-25] MEDS: MAGNESIUM OXIDE 400 MG TABLET PO SCH (17:46)
[2017-03-25] MEDS: SPIRONOLACTONE 25 MG TABLET PO SCH (17:47)
--- NOTE | 2017-03-25 21:06 | PDOC PROGRESS REPORT ---
Subjective Progress Note for:: 03/25/17 Subjective:: Patient was seen by the bedside ,there is no new complaints Reason For Visit: COPD EXACERBATION Physical Exam Vital Signs: Temp Pulse Resp BP Pulse Ox 99.3 F 104 H 20 131/68 H 99 03/25/17 19:33 03/25/17 19:33 03/25/17 19:33 03/25/17 19:33 03/25/17 19:33 Intake & Output 03/24/17 03/25/17 03/26/17 06:59 06:59 06:59 Intake Total 2700 2687 1086 Output Total 750 220 Balance 1950 2467 1086 Weight 118.1 kg 115.5 kg Respiratory exam: PRESENT: clear to auscultation rolf Cardiovascular exam: PRESENT: +S1, +S2 Results Laboratory Results: 03/24/17 04:45 03/25/17 06:30 03/25/17 06:30 Sodium 142.5 Potassium 3.9 Chloride 101 Carbon Dioxide 38 H Anion Gap 4 L BUN 8 Creatinine 0.54 Est GFR ( Amer) > 60 Est GFR (Non-Af Amer) > 60 Glucose 144 H Calcium 8.8 Impressions: Abdomen/Pelvis CT 03/18/17 17:27 IMPRESSION: NO SIGNIFICANT OR ACUTE PROCESS IN THE ABDOMEN OR PELVIS. Chest X-Ray 03/18/17 18:57 IMPRESSION: Appropriate right IJ central line. Assessment & Plan - Diagnosis (1) COPD exacerbation Is this a current diagnosis for this admission?: Yes (2) Decreased urination Is this a current diagnosis for this admission?: Yes (3) Abdominal pain Qualifiers: Abdominal location: unspecified location Qualified Code(s): R10.9 - Unspecified abdominal pain Is this a current diagnosis for this admission?: Yes (4) Chronic respiratory failure Qualifiers: Respiratory failure complication: unspecified whether with hypoxia or hypercapnia Qualified Code(s): J96.10 - Chronic respiratory failure, unspecified whether with hypoxia or hypercapnia Is this a current diagnosis for this admission?: Yes (5) Coronary artery disease Qualifiers: Coronary Disease-Associated Artery/Lesion type: [place] artery [place] vs. transplanted heart: [place] heart Associated angina: angina presence unspecified Qualified Code(s): I25.10 - Atherosclerotic heart disease of [place] coronary artery without angina pectoris Is this a current diagnosis for this admission?: Yes (6) Diabetes mellitus type 2 in obese Is this a current diagnosis for this admission?: Yes
[2017-03-25] MEDS: ATORVASTATIN CALCIUM 40 MG TABLET PO SCH (22:10)
[2017-03-25] MEDS: MELATONIN 3 MG TABLET PO SCH (22:10)
[2017-03-25] MEDS: NORMAL SALINE 1000 ML 1,000 ML IV PRN (22:27)
[2017-03-26] MEDS: HYDROMORPHONE HCL INJ/PF 2 MG/ML AMPULE IV PRN ×4 (01:26→15:33)
[2017-03-26] MEDS: GABAPENTIN 300 MG CAPSULE PO SCH ×2 (06:16→15:33)
[2017-03-26 07:06] LABS: BLOOD UREA NITROGEN 8 mg/dL (7-20); CALCIUM 8.4 mg/dL (8.4-10.2); CHLORIDE 100 mmol/L (98-107); GLUCOSE 104 mg/dL (75-110); POTASSIUM 3.5 mmol/L (3.6-5.0)
[2017-03-26 07:15] LABS: ANION GAP 6 (5-19)
[2017-03-26 07:18] LABS: CARBON DIOXIDE 38 mmol/L (22-30)
[2017-03-26] MEDS: NORMAL SALINE 1000 ML 1,000 ML IV PRN (08:09)
[2017-03-26] MEDS: SIMETHICONE 80 MG TAB.CHEW PO PRN ×2 (08:09→12:24)
[2017-03-26] MEDS: METFORMIN HCL 500 MG TABLET PO SCH (08:09)
[2017-03-26] MEDS: IPRATROPIUM/ALBUTEROL 0.5-2.5 MG/3 ML AMPUL NEB PRN (08:57)
[2017-03-26 12:15] VITALS: BP 137/65
[2017-03-26] MEDS: ENOXAPARIN SODIUM INJ 40 MG/0.4 ML DISP.SYRIN SUBCUT SCH (12:24)
[2017-03-26] MEDS: DULOXETINE HCL 30 MG CAPSULE.DR PO SCH (12:24)
[2017-03-26] MEDS: FLUTICASONE/SALMETEROL DISKUS 250-50 MCG/DOSE IH SCH (12:25)
[2017-03-26] MEDS: NYSTATIN TOPICAL POWDER 15 GM TP SCH (12:25)
[2017-03-26] MEDS: INSULIN DETEMIR 100 UNIT/ML 3 ML PEN SUBCUT SCH (12:25)
--- NOTE | 2017-03-26 14:54 | PDOC TRANSFER SUMMARY ---
General - Admit/Disc Date/PCP Admission Date/Primary Care Provider: 03/21/17 11:21 TANISHA POLLARD MD Discharge Date: 03/26/17 - Discharge Diagnosis (1) COPD exacerbation Is this a current diagnosis for this admission?: Yes (2) Decreased urination Is this a current diagnosis for this admission?: Yes (3) Abdominal pain Is this a current diagnosis for this admission?: Yes (4) Chronic respiratory failure Is this a current diagnosis for this admission?: Yes (5) Coronary artery disease Is this a current diagnosis for this admission?: Yes (6) Diabetes mellitus type 2 in obese Is this a current diagnosis for this admission?: Yes - Additional Information Resuscitation Status: Do Not Resuscitate Home Medications: Atorvastatin Calcium [Lipitor 40 mg Tablet] 40 mg PO DAILY 03/19/17 Duloxetine HCl [Cymbalta] 60 mg PO DAILY 03/19/17 Fluticasone/Salmeterol [Advair 250-50 Diskus 14 Dose/Diskus] 1 puff IH Q12 03/19 Gabapentin [Neurontin 300 mg Capsule] 300 mg PO Q8 03/19/17 Insulin Detemir [Levemir Flextouch] 50 unit SQ BIDBS 03/19/17 Magnesium Oxide [Mag-Ox 400 mg Tablet] 400 mg PO DAILY 03/19/17 Melatonin [Melatonin 3 mg Tablet] 6 mg PO QHS 03/19/17 Metformin HCl [Metformin HCl ER] 500 mg PO WSUPPER 03/19/17 Simethicone [Mylicon 80 mg Chewable Tablet] 80 mg PO MEALSHS PRN 03/19/17 Spironolactone [Aldactone 25 mg Tablet] 12.5 mg PO DAILY 03/19/17 History of Present Illness Admission Date/PCP: 03/21/17 11:21 TANISHA POLLARD MD History of Present Illness: TORREY MARKS is a 66 year old female, she has end-stage COPD, she was just discharged from this hospital on 03/12/2017 [facility], [facility] she was transferred from the [facility] to the emergency room for evaluation of abdominal pain ,diarrhea, in the emergency room she had CT scan of the abdomen and pelvis done, it was negative for any acute pathology. She is a DNR status, she is brought in for observation and management of her COPD. She probably could be discharged back to [facility] but patient is reluctant to be discharged back so soon to [facility]. She has end-stage COPD with baseline shortness of breath, she is on inhaled steroid and bronchodilators Hospital Course Hospital Course: Patient with end-stage COPD, she was admitted for the management of abdominal pain, acute COPD exacerbation. She has multiple hospitalization for the management of acute COPD, pneumonia UTI, she has multiple comorbid conditions. She is nonambulatory, very sedentary, she was just recently discharged from this hospital only to be readmitted after a few days for the same problem. Patient dependent on noninvasive positive pressure ventilation, BiPAP to support breathing. At this stage of her disease it was felt that hospice care is the best option, the plan of care was discussed with the patient and the family, they thought about it, they are all in agreement with hospice care. She was seen by hospice nurse and it was felt that she is a candidate for hospice home, the plan is to transfer patient to hospice facility for comfort care measures. Physical Exam Vital Signs: Temp Pulse Resp BP Pulse Ox 99.1 F 115 H 24 H 137/65 H 91 L 03/26/17 11:26 03/26/17 11:26 03/26/17 11:26 03/26/17 11:26 03/26/17 11:26 Intake & Output 03/25/17 03/26/17 03/27/17 06:59 06:59 06:59 Intake Total 2687 2286 Output Total 220 700 Balance 2467 1586 Weight 115.5 kg 114.6 kg Results Laboratory Results: 03/24/17 04:45 03/26/17 06:30 03/26/17 06:30 Sodium 144.0 Potassium 3.5 L Chloride 100 Carbon Dioxide 38 H Anion Gap 6 BUN 8 Creatinine 0.45 L Est GFR ( Amer) > 60 Est GFR (Non-Af Amer) > 60 Glucose 104 Calcium 8.4 Impressions: Abdomen/Pelvis CT 03/18/17 17:27 IMPRESSION: NO SIGNIFICANT OR ACUTE PROCESS IN THE ABDOMEN OR PELVIS. Chest X-Ray 03/18/17 18:57 IMPRESSION: Appropriate right IJ central line. Plan Discharge Plan: Patient is being transferred to hospice.
== END 2017-03-26 16:20 | disposition hospice, inpatient (51) | DRG 191 ==
LOC: ER 12:53 → EH 21:56 → INTOOBSV 21:56 → EH 03-19 08:51 → 4S 03-19 15:39 → OBSVTOIN 03-21 11:21 → 4W 03-23 22:42
PROVIDERS: ADMIT Internal Medicine; ATTEND Internal Medicine
PROC: 02HV33Z Insertion of Infusion Device into Superior Vena Cava, Percutaneous Approach (ICD-10-PCS; principal; 2017-03-18)
PROC: 5A09557 Assistance with Respiratory Ventilation, Greater than 96 Consecutive Hours, Continuous Positive Airway Pressure (ICD-10-PCS; 2017-03-19)
DX: J44.1 Chronic obstructive pulmonary disease with (acute) exacerbation (principal); J96.10 Chronic respiratory failure, unspecified whether with hypoxia or hypercapnia; I50.32 Chronic diastolic (congestive) heart failure; I42.9 Cardiomyopathy, unspecified; Z51.5 Encounter for palliative care; I25.10 Atherosclerotic heart disease of native coronary artery without angina pectoris; E11.51 Type 2 diabetes mellitus with diabetic peripheral angiopathy without gangrene; I11.0 Hypertensive heart disease with heart failure; E78.5 Hyperlipidemia, unspecified; G43.909 Migraine, unspecified, not intractable, without status migrainosus; M79.7 Fibromyalgia; G89.29 Other chronic pain; F41.9 Anxiety disorder, unspecified; E66.9 Obesity, unspecified; M19.90 Unspecified osteoarthritis, unspecified site; Z90.49 Acquired absence of other specified parts of digestive tract; Z95.5 Presence of coronary angioplasty implant and graft; Z98.51 Tubal ligation status; R10.9 Unspecified abdominal pain; R34 Anuria and oliguria; Z66 Do not resuscitate; Z82.49 Family history of ischemic heart disease and other diseases of the circulatory system; Z87.891 Personal history of nicotine dependence; Z79.4 Long term (current) use of insulin; Z79.899 Other long term (current) drug therapy; Z99.81 Dependence on supplemental oxygen; Z68.38 Body mass index [BMI] 38.0-38.9, adult; Z86.14 Personal history of Methicillin resistant Staphylococcus aureus infection
CPT/HCPCS: 36415; 71045; 71046; 74176; 80048; 80053; 81001; 82272; 82962; 83605; 83690; 83735; 84484; 85025; 87040; 87077; 87086; 87186; 87804; 93005; 93010; 94640; 94660; 96361; 96365; 96368; 96375; 99285; C1751; C1769; G0378; J0696; J1170; J1650; J1815; J1940; J2270; J2405; J3475; J3490; J7030; J7620; S0119